=== PATIENT | female | born 1940 | race Caucasian/White ===

== ENCOUNTER 2017-12-02 12:00 | Emergency (ER) | payer MEDICARE, SELFPAY ==
[2017-12-02 12:16] VITALS: BP 138/86; PULSE 82; RESP 20; TEMP 36.9; O2SAT 98; BMI 66.7
--- NOTE | 2017-12-02 12:26 | XR_ITS ---
XR chest 2V HISTORY: Cough and wheezing ITS.REASON: SHORTNESS OF BREATH ORDERING PHYSICIAN: Ant Castaneda MD PATIENT AGE: 77 years COMPARISON: 10/28/2016 FINDINGS: The cardiomediastinal silhouette and pulmonary vascularity are within normal limits. The lungs are clear without infiltrates, suspicious nodules, or pleural effusions. There is calcified granuloma in the left lower lobe and there are chronic changes. Degenerative changes are present in the thoracic spine. No acute bony abnormalities. IMPRESSION: No acute finding. 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
[2017-12-02 13:11] LABS: Basophils % 0.3 % (0.1-2.0); Eosinophils # 1.1 K/mm3 (0.0-0.4); Eosinophils % 11.4 % (0.1-12.0); Hematocrit 41.5 % (37.0-47.0); Hemoglobin 13.6 g/dL (12.2-16.2); Lymphocytes # 2.5 K/mm3 (0.7-4.5); Lymphocytes % 25.6 K/mm3 (10-50); Mean Corpuscular HGB Conc 32.8 g/dL (31.8-35.4); Mean Corpuscular Hemoglobin 29.9 pg (27.0-31.2); Mean Corpuscular Volume 91.3 fl (81-99); Mean Platelet Volume 7.5 fl (7.4-10.4); Monocytes # 0.6 K/mm3 (0.1-1.0); Monocytes % 6.2 % (1.7-9.3); Neutrophils # 5.5 K/mm3 (1.8-7.8); Neutrophils % 56.4 % (37.0-80.0); Platelet Count 273 K/mm3 (142-424); Red Blood Count 4.54 M/mm3 (4.20-5.40); Red Cell Distribution Width 12.1 % (11.5-17.5); White Blood Count 9.8 K/mm3 (4.8-10.8)
[2017-12-02 13:21] LABS: Lactic Acid 0.9 mmol/L (0.4-2.0)
--- NOTE | 2017-12-02 13:31 | [facility].EDGENADL ---
ED Disposition Clinical Impression: Acute exacerbation of chronic obstructive airways disease Disposition: Home, Self-Care Condition on Discharge: Fair Instructions: DI for Chronic Obstructive Pulmonary Disease Prescriptions: levoFLOXacin [Levaquin 500mg tab] 500 mg PO DAILY #10 tab predniSONE [Deltasone 5mg tablet] 5 mg PO DAILY 30 Days #30 tab Referrals: Alexis Montanez MD [Primary Care Provider] - Time of Disposition: 16:58 - Critical Care Critical Care Time: No Attestation: On 12/02/17, the high probability of a clinically significant, sudden or life threatening deterioration of the following system(s) required my full and direct attention, intervention and personal management. The time I documented below is in addition to time spent performing reported procedures but includes the following listed in this critical care notation. Medical Decision Making - Medical Records Medical records reviewed: Yes: I reviewed the patient's medical records. Vital Signs: 12/02/17 12:16 12/02/17 14:00 Temperature 98.4 F Temperature Source Tympanic Pulse Rate 78 Pulse Rate [Right Radial] 82 Respiratory Rate 20 Blood Pressure [Right Arm] 138/86 Blood Pressure Mean [Right Arm] 103 02 Sat by Pulse Oximetry 98 Oxygen Delivery Method Room Air - Lab Data Lab results reviewed: Yes: I reviewed the patient's lab results. Lab Results 12/02/17 12:55: WBC 9.8, RBC 4.54, Hgb 13.6, Hct 41.5, MCV 91.3, MCH 29.9, MCHC 32.8, RDW 12.1, Plt Count 273, MPV 7.5, Neut % (Auto) 56.4, Lymph % (Auto) 25.6, [place] % (Auto) 6.2, Eos % (Auto) 11.4, Baso % (Auto) 0.3, Neut # (Auto) 5.5, Lymph # (Auto) 2.5, [place] # (Auto) 0.6, Eos # (Auto) 1.1 H, Baso # (Auto) 0.0 12/02/17 12:55: Sodium 139, Potassium 4.5, Chloride 105, Carbon Dioxide 27, Anion Gap 11.5, BUN 21 H, Creatinine 0.64, Estimated Creat Clear 33, Estimated GFR 90, Est GFR ( Amer) 109, Glucose 109 H, Calcium 9.0, Total Bilirubin 0.3, AST 17, ALT 24, Alkaline Phosphatase 64, Total Creatine Kinase 136, CK-MB (CK-2) 1.4, CK-MB (CK-2) Rel Index 1.0, Troponin I < 0.02, Total Protein 7.2, Albumin 3.6, Globulin 3.6 H, Albumin/Globulin Ratio 1.0 L 12/02/17 12:55: Lactic Acid 0.9 12/02/17 13:30: Influenza Type A Ag Negative, Influenza Type B Ag Negative, Group A Strep Rapid Negative Result diagrams: 12/02/17 12:55 12/02/17 12:55 Orders (Tests/Meds): ED MEDICATIONS Discontinued Medications Generic Name Dose Route Start Last Admin Trade Name Orlandoq PRN Reason Stop Dose Admin Albuterol/Ipratropium 3 ml 12/02/17 13:37 12/02/17 14:00 Duoneb 3ml Neb IH 12/02/17 13:38 3 ml ONCE ONE Administration Methylprednisolone Sodium Succinate 125 mg 12/02/17 13:37 12/02/17 13:50 Solu-Medrol 125mg/2ml Vial IV 12/02/17 13:38 125 mg ONCE ONE Administration ORDERS Category Date Time Status Blood Culture Stat Micro 12/02/17 12:55 Received Strep Screen Confirmation Stat Micro 12/02/17 13:30 Received - Radiology Data #1 Image(s): Chest Image Reviewed: Yes I reviewed the patient's radiology results, Yes I discussed the image results w/the radiologist, Yes I have reviewed radiologist's interpretation Preliminary Findings: Normal/NAD - Hermes Inquiry Pt receiving controlled substance: No Hermes was queried for this patient: No General Adult HPI - General Chief complaint: Shortness of Breath/Dyspnea Stated complaint: achey all over cough soa Time Seen by Provider: 12/02/17 13:34 Mode of Arrival: Ambulatory Limitations: No Limitations Description of Symptoms (Recalled from ER Triage Doc. by RN): CHILLS, SHORTNESS OF BREATH, WHEEZING - History of Present Illness HPI narrative: SOA, Achy all over, shills , Wheezing and NPcough over the past 2 days. No fever that she is aware of. she does not currently smoke but is on inhalers and nebs at home. No chest pain with this but SOA Onset (ago): day(s) Location: head, chest Radiation: no
[2017-12-02 13:36] LABS: Alanine Aminotransferase 24 U/L (12-78); Albumin Level 3.6 gm/dL (3.4-5.0); Alkaline Phosphatase 64 U/L (46-116); Anion Gap 11.5 mEq/L (5-15); Bilirubin,Total 0.3 mg/dL (0.2-1.0); Blood Urea Nitrogen 21 mg/dL (7-18); Carbon Dioxide 27 mmol/L (21.0-32.0); Chloride 105 mmol/L (98-107); Creatine Kinase 136 U/L (26-192); Creatinine Clearance Estimated 33 mL/min (0-300); Creatinine,Serum 0.64 mg/dL (0.55-1.02); Estimated Glomerular Filt Rate 90 ml/min (>60); GFR (African American) 109 ML/MIN (>60); Globulin 3.6 gm/dl (1.3-3.2); Glucose 109 mg/dL (74-106); Sodium 139 mmol/L (136-145); Total Protein,Serum 7.2 gm/dL (6.4-8.2); Troponin I < 0.02 ng/ml (0.00-0.06)
[2017-12-02 13:52] LABS: Potassium 4.5 mmoL/L (3.5-5.1)
[2017-12-02 13:53] LABS: Aspartate Amino Transferase 17 U/L (15-37)
[2017-12-02 14:00] VITALS: PULSE 78
[2017-12-02 14:02] LABS: Creatine Kinase MB 1.4 mg/ml (0.0-3.6)
[2017-12-02 14:04] LABS: Strep Scrn Group A (Rapid) Negative (Negative)
[2017-12-02 17:08] VITALS: BP 121/70; PULSE 70; RESP 20; TEMP 37.1; O2SAT 100
== END 2017-12-02 17:10 | disposition home or self-care (01) ==
PROVIDERS: Emergency Provider General Practice; Family Provider Family Medicine; PCP Family Medicine
DX: J44.1 Chronic obstructive pulmonary disease with (acute) exacerbation (principal); E10.9 Type 1 diabetes mellitus without complications; Z88.6 Allergy status to analgesic agent
CPT/HCPCS: 71046; 80053; 82550; 82553; 83605; 84484; 85025; 87040; 87275; 87276; 87430; 93005; 93041; 96374; 99284

== ENCOUNTER 2018-03-31 21:44 | Observation (INO) ==
[2018-03-31 22:16] LABS: Basophils % 0.4 % (0.1-2.0); Eosinophils # 1.7 K/mm3 (0.0-0.4); Eosinophils % 18.3 % (0.1-12.0); Hemoglobin 12.9 g/dL (12.2-16.2); Lymphocytes # 3.5 K/mm3 (0.7-4.5); Lymphocytes % 36.8 K/mm3 (10-50); Mean Corpuscular HGB Conc 31.4 g/dL (31.8-35.4); Mean Corpuscular Hemoglobin 28.5 pg (27.0-31.2); Mean Corpuscular Volume 90.7 fl (81-99); Mean Platelet Volume 7.1 fl (7.4-10.4); Monocytes # 0.6 K/mm3 (0.1-1.0); Monocytes % 5.8 % (1.7-9.3); Neutrophils # 3.7 K/mm3 (1.8-7.8); Neutrophils % 38.7 % (37.0-80.0); Platelet Count 278 K/mm3 (142-424); Red Blood Count 4.51 M/mm3 (4.20-5.40); Red Cell Distribution Width 12.8 % (11.5-17.5); White Blood Count 9.5 K/mm3 (4.8-10.8)
[2018-03-31 22:29] LABS: Anion Gap 14.5 mEq/L (5-15); Blood Urea Nitrogen 29 mg/dL (7-18); Calcium 9.3 mg/dL (8.5-10.1); Carbon Dioxide 24 mmol/L (21.0-32.0); Chloride 107 mmol/L (98-107); Glucose 116 mg/dL (74-106); Potassium 4.5 mmoL/L (3.5-5.1); Sodium 141 mmol/L (136-145)
--- NOTE | 2018-03-31 23:01 | Emergency Department Note ---
ED Disposition Clinical Impression: Asthma with exacerbation Qualifiers: Asthma severity: moderate Asthma persistence: unspecified Qualified Code(s): J45.901 - Unspecified asthma with (acute) exacerbation Disposition: Admitted as Observation Condition on Discharge: Good Referrals: Alexis Montanez MD [Primary Care Provider] - - Critical Care Critical Care Time: No Attestation: On 03/31/18, the high probability of a clinically significant, sudden or life threatening deterioration of the following system(s) required my full and direct attention, intervention and personal management. The time I documented below is in addition to time spent performing reported procedures but includes the following listed in this critical care notation. Medical Decision Making - Medical Records Medical records reviewed: Yes: I reviewed the patient's medical records. - Hermes Inquiry Pt receiving controlled substance: No Vital Signs: 03/31/18 21:42 03/31/18 22:21 Temperature 98.5 F Temperature Source Oral Pulse Rate [Right Radial] 96 H 92 H Respiratory Rate 18 16 Blood Pressure [Right Arm] 164/97 157/81 Blood Pressure Mean [Right Arm] 119 106 Blood Pressure Source [Right Arm] Automatic Cuff Automatic Cuff Blood Pressure Position [Right Arm] Sitting Supine 02 Sat by Pulse Oximetry 95 96 Oxygen Delivery Method Room Air Room Air - Lab Data Lab results reviewed: Yes: I reviewed the patient's lab results. Lab Results 03/31/18 21:55: WBC 9.5, RBC 4.51, Hgb 12.9, Hct 41.0, MCV 90.7, MCH 28.5, MCHC 31.4 L, RDW 12.8, Plt Count 278, MPV 7.1 L, Neut % (Auto) 38.7, Lymph % (Auto) 36.8, [place] % (Auto) 5.8, Eos % (Auto) 18.3 H, Baso % (Auto) 0.4, Neut # (Auto) 3.7, Lymph # (Auto) 3.5, [place] # (Auto) 0.6, Eos # (Auto) 1.7 H, Baso # (Auto) 0.0 03/31/18 21:55: Sodium 141, Potassium 4.5, Chloride 107, Carbon Dioxide 24, Anion Gap 14.5, BUN 29 H, Creatinine 0.88, Estimated Creat Clear 53, Estimated GFR 62, Est GFR ( Amer) 76, Glucose 116 H, Calcium 9.3, Troponin I < 0.02 03/31/18 21:55: Lactic Acid 0.6 Result diagrams: 03/31/18 21:55 03/31/18 21:55 Orders (Tests/Meds): ORDERS Category Date Time Status XR chest 2V Stat Exams 03/31/18 21:50 Taken Blood Culture Stat Micro 03/31/18 21:55 Received - Radiology Data #1 Image(s): Chest Image Reviewed: Yes I reviewed the patient's radiology image Preliminary Findings: Normal/NAD - ECG Data Tracing #1 I reviewed this ECG and interpreted as documented below: Normal Sinus Rhythm: Yes Ischemic changes: non-specific ST-T wave changes Conduction abnormalities present: LBBB ECG compared to prior tracings: there are no significant changes - Physician Consults Physician Consulted: amy Reason -: Admission Resp/SOB HPI - General Chief Complaint: Shortness of Breath/Dyspnea Stated Complaint: short of breath Time Seen by Provider: 03/31/18 21:55 Mode of Arrival: EMS Source of Information: Patient, Relative, EMS, Medical Record Limitations: No Limitations Description of Symptoms (Recalled from ER Triage Doc. by RN): wheezing cough, recurrent, returns every time she comes of steroids - History of Present Illness pt with episode of acute sob with wheezing and has hx of asthma - she reports took resp treatment but did not improve - pt denied any chest pain but family concerned about chest pain MD Complaint: shortness of breath, "asthma attack" Onset (ago): hour(s) Severity: similar to previous episodes Consistency/Duration: now resolved Relieving factors: bronchodilators Known history of: COPD, asthma, diabetes Associated symptoms: cough Treatment prior to arrival: bronchodilator - Related Data Home oxygen amount: none Home Medications Medication Instructions Recorded Confirmed Benzonatate [Benzonatate 100mg 100 mg PO TID 03/31/18 03/31/18 cap] Cilostazol 50 mg PO BID 03/31/18 03/31/18 Gabapentin [Gabapentin 100mg Cap] 100 mg PO TID 03/31/18 03/31/18 Ipratropium/Albuterol Sulfate 1 unit INHALATION Q4HP PRN 03/31/18 03/31/18 [Albut-Ipratropium 2.5mg-0.5mg/3 ml] Lisinopril/Hydrochlorothiazide 1 tab PO DAILY 03/31/18 03/31/18 [Lisinopril-Hctz 20-12.5 mg Tab] Omeprazole [Omeprazole 40mg 40 mg PO DAILY 03/31/18 03/31/18 Capsule] Pravastatin Sodium [Pravachol 40mg 40 mg PO HS 03/31/18 03/31/18 Tablet] Allergies Allergy/AdvReac Type Severity Reaction Status Date / Time codeine [CODEINE] Allergy Unknown Verified 12/02/17 12:28 [facility] History I have reviewed the patient's past medical history: Yes Medical History: Reports:: Diabetes Mellitus Type 2 Denies:: Cancer, Diabetes Mellitus Type 1, MRSA Amputation: No Fractures: No - Social History Smoking Status: Never smoker Alcohol Intake: never - Psychiatric History Expresses thoughts of harming self/others: None Suicide Plan Description: No Plan ROS Obtained: Yes All systems reviewed & no additional complaints - Constitutional Constitutional: Denies fever(s) - Eyes Eyes: Denies change in vision - ENT Ears, Nose, Mouth, and Throat: Denies sore throat - Cardiovascular Cardiovascular: Denies chest pain, Denies palpitations - Respiratory Respiratory: Yes as per HPI, Yes cough, Yes dyspnea, No coughing up blood - Gastrointestinal Gastrointestingal: Denies: black, tarry stools - Genitourinary Female Genitourinary: Denies hematuria - Musculoskeletal Musculoskeletal: Denies joint pain, Denies joint swelling - Integumentary/Breasts Skin/Breast: Denies rash - Neurologic Neurologic: Denies convulsions, Denies headache(s), Denies seizure-like activity Physical Exam - General General appearance: alert, in no apparent distress - Head Head exam: normocephalic - Eye Eye exam: Present: PERRL, EOMI. Absent: scleral icterus - ENT ENT exam: Present: mucous membranes dry - Neck Neck exam: Present: trachea midline - Respiratory Respiratory exam: Present: other (rhonchi). Absent: respiratory distress - Cardiovascular Cardiovascular exam: Present: regular rate, systolic murmur, +S4 - Abdominal Exam Abdominal exam: Present: soft - Extremities Exam Extremities exam: Absent: calf tenderness - Neurological Exam Neurological exam: Present: alert, oriented X3 - Psychiatric Psychiatric exam: Present: normal affect - Skin Skin exam: Absent: rash
[2018-03-31 23:52] LABS: T4 (Thyroxine) 9.2 ug/dl (4.7-13.3); Thyroid Stimulating Hormone 2.67 uIU/ml (0.358-3.740)
[2018-04-01 06:49] LABS: Basophils % 0.1 % (0.1-2.0); Eosinophils # 0.1 K/mm3 (0.0-0.4); Eosinophils % 1.2 % (0.1-12.0); Hematocrit 39.5 % (37.0-47.0); Hemoglobin 12.2 g/dL (12.2-16.2); Lymphocytes # 0.5 K/mm3 (0.7-4.5); Lymphocytes % 7.8 K/mm3 (10-50); Mean Corpuscular Hemoglobin 28.4 pg (27.0-31.2); Mean Corpuscular Volume 91.9 fl (81-99); Mean Platelet Volume 7.2 fl (7.4-10.4); Monocytes # 0.1 K/mm3 (0.1-1.0); Monocytes % 1.6 % (1.7-9.3); Neutrophils # 5.4 K/mm3 (1.8-7.8); Neutrophils % 89.4 % (37.0-80.0); Platelet Count 255 K/mm3 (142-424); Red Cell Distribution Width 12.8 % (11.5-17.5); White Blood Count 6.1 K/mm3 (4.8-10.8)
[2018-04-01 07:15] VITALS: BP 161/76
[2018-04-01 07:50] LABS: Anion Gap 11.4 mEq/L (5-15); Blood Urea Nitrogen 27 mg/dL (7-18); Carbon Dioxide 25 mmol/L (21.0-32.0); Chloride 109 mmol/L (98-107); Glucose 200 mg/dL (74-106); Potassium 4.4 mmoL/L (3.5-5.1); Sodium 141 mmol/L (136-145)
--- NOTE | 2018-04-01 08:54 | History & Physical Report ---
*Admission Date: 03/31/18 *Chief complaint: Shortness of breath, wheezing *History of present illness: This 77-year-old white female was admitted through the emergency room last night with shortness of breath. She has been coughing wheezing and is congested. She coughs up some mucus frequently. She describes a history of asthma since she was in her 30s. She describes a strong family history of asthma. She has not been a smoker. She uses a nebulizer at home. She has a history of exacerbations of her asthma which are treated with antibiotics and steroids with good relief. When she was seen in the emergency room last night her eosinophil count was found to be elevated. This morning is normal. [facility] History Medical History: Reports:: Diabetes Mellitus Type 2 Denies:: Cancer, Diabetes Mellitus Type 1, MRSA Other Surgeries: Yes: Other (BILAT STENTS PLACED IN LEGS.) Amputation: No Fractures: No - *Social History Educational Level: Completed High School Smoking Status: Never smoker Alcohol Intake: never Occupational Status: employed Housing: house Household Members: children - Psychiatric History Expresses thoughts of harming self/others: None Suicide Plan Description: No Plan *Family Hx:: No significant family history Review of Systems - Constitutional Denies chills, Denies fever(s) - Eyes Denies change in vision - ENT Denies abnormal hearing - *Cardiovascular Reports shortness of breath with activity, Denies chest pain, Denies rapid, pounding, or irregular heartbeat - *Respiratory Reports chest congestion, Reports cough, Reports shortness of breath with activity, Reports wheezing, Denies coughing up blood - *Gastrointestinal Denies abdominal pain, Denies vomiting - *Genitourinary Denies abnormal vaginal bleeding - *Musculoskeletal Reports joint pain - *Neurologic Denies seizure-like activity, Denies headache(s), Denies seizure-like activity - Psychiatric Denies depression - Endocrine Denies cold intolerance, Denies increased thirst - Allergic/Immunologic Denies seasonal runny nose Comments: "Sinus drainage" Meds Home Medications Medication Instructions Recorded Confirmed Type Benzonatate [Benzonatate 100mg 100 mg PO TIDP PRN 03/31/18 04/01/18 History cap] Cilostazol 50 mg PO BID 03/31/18 04/01/18 History Gabapentin [Gabapentin 100mg Cap] 100 mg PO TID 03/31/18 04/01/18 History Ipratropium/Albuterol Sulfate 1 puff INHALATION Q4HP PRN 03/31/18 04/01/18 History [Albut-Ipratropium 2.5mg-0.5mg/3 ml] Lisinopril/Hydrochlorothiazide 1 tab PO DAILY 03/31/18 04/01/18 History [Lisinopril-Hctz 20-12.5 mg Tab] Omeprazole [Omeprazole 40mg 40 mg PO DAILY 03/31/18 04/01/18 History Capsule] Pravastatin Sodium [Pravachol 40mg 40 mg PO HS 03/31/18 04/01/18 History Tablet] Aspirin [Aspirin 325mg Tab] 325 mg PO DAILY 04/01/18 04/01/18 History Allergies Allergy/AdvReac Type Severity Reaction Status Date / Time codeine [CODEINE] Allergy Unknown Verified 12/02/17 12:28 Exam Vital signs and Labs for Last 24 Hours: Temp Pulse Resp BP Pulse Ox 98.2 F 95 H 18 161/76 95 04/01/18 07:14 04/01/18 07:14 04/01/18 07:14 04/01/18 07:14 04/01/18 07:14 Laboratory Results - last 24 hr 03/31/18 21:55: WBC 9.5, RBC 4.51, Hgb 12.9, Hct 41.0, MCV 90.7, MCH 28.5, MCHC 31.4 L, RDW 12.8, Plt Count 278, MPV 7.1 L, Neut % (Auto) 38.7, Lymph % (Auto) 36.8, [place] % (Auto) 5.8, Eos % (Auto) 18.3 H, Baso % (Auto) 0.4, Neut # (Auto) 3.7, Lymph # (Auto) 3.5, [place] # (Auto) 0.6, Eos # (Auto) 1.7 H, Baso # (Auto) 0.0 03/31/18 21:55: Sodium 141, Potassium 4.5, Chloride 107, Carbon Dioxide 24, Anion Gap 14.5, BUN 29 H, Creatinine 0.88, Estimated Creat Clear 53, Estimated GFR 62, Est GFR ( Amer) 76, Glucose 116 H, Calcium 9.3, Troponin I < 0.02 03/31/18 21:55: Lactic Acid 0.6 03/31/18 21:55: B-Natriuretic Peptide 36 03/31/18 21:55: TSH 2.67, Thyroxine (T4) 9.2 03/31/18 23:59: Troponin I < 0.02 04/01/18 03:10: Troponin I < 0.02 04/01/18 06:25: WBC 6.1 D, RBC 4.30, Hgb 12.2, Hct 39.5, MCV 91.9, MCH 28.4, MCHC 31.0 L, RDW 12.8, Plt Count 255, MPV 7.2 L, Neut % (Auto) 89.4 H, Lymph % ( Auto) 7.8 L, [place] % (Auto) 1.6 L, Eos % (Auto) 1.2, Baso % (Auto) 0.1, Neut # ( Auto) 5.4, Lymph # (Auto) 0.5 L, [place] # (Auto) 0.1, Eos # (Auto) 0.1, Baso # ( Auto) 0.0 04/01/18 06:25: Sodium 141, Potassium 4.4, Chloride 109 H, Carbon Dioxide 25, Anion Gap 11.4, BUN 27 H, Creatinine 0.78, Estimated Creat Clear 53, Estimated GFR 72, Est GFR ( Amer) 87, Glucose 200 H D, Calcium 9.0, Magnesium 1.7, Troponin I < 0.02 I & O for Last 24 hours: Intake & Output 03/29/18 03/30/18 03/31/18 04/01/18 11:59 11:59 11:59 11:59 Intake Total 247 / 247 Output Total 300 / 300 Balance -53 / -53 Weight 155 lb 2 oz - Constitutional no acute distress - *Routine HEENT Exam Head: Present: normocephalic. Absent: facial swelling Eye: Present: EOMI. Absent: scleral injection ENT: Present: mucous membranes moist - *Routine Neck Exam Absent: JVD, carotid bruit - Routine Chest/Breast/Axilla Exam Chest wall: Absent: tenderness Breast: Absent: tenderness Axillae: Absent: tenderness - *Routine Respiratory Exam Present: prolonged expiratory phase, wheezes. Absent: respiratory distress - *Routine Cardiovascular Exam Present: RRR Comments: Occasional ectopy - *Routine Abdominal Exam Present: soft. Absent: tenderness - *Routine Extremities Exam Present: edema (Trace) - Routine Back/Spine/Pelvis Exam Back/Spine: Present: kyphosis - *Routine Skin Exam Present: intact - *Routine Neurological Exam Present: alert, oriented X3 H&P: Result - Labs Labs: Short CBC 03/31/18 04/01/18 Range/Units 21:55 06:25 WBC 9.5 6.1 D (4.8-10.8) K/mm3 Hgb 12.9 12.2 (12.2-16.2) g/dL Hct 41.0 39.5 (37.0-47.0) % Plt Count 278 255 (142-424) K/mm3 [facility] 03/31/18 04/01/18 21:55 06:25 Sodium 141 141 Potassium 4.5 4.4 Chloride 107 109 H Carbon Dioxide 24 25 BUN 29 H 27 H Creatinine 0.88 0.78 Glucose 116 H 200 H D Calcium 9.3 9.0 Cardiac Enzymes 03/31/18 03/31/18 04/01/18 Range/Units 21:55 23:59 03:10 Troponin I < 0.02 < 0.02 < 0.02 (0.00-0.06) ng/ml 04/01/18 Range/Units 06:25 Troponin I < 0.02 (0.00-0.06) ng/ml Assessment and Plan (1) Asthma with exacerbation Current visit: Yes Status: Acute Qualifiers: Asthma severity: moderate Asthma persistence: unspecified Qualified Code( s): J45.901 - Unspecified asthma with (acute) exacerbation Category: Medical Code(s): J45.901 - Unspecified asthma with (acute) exacerbation (2) Acute exacerbation of chronic obstructive airways disease Current visit: No Status: Acute Category: Medical Code(s): J44.1 - Chronic obstructive pulmonary disease with (acute) exacerbation - Assessment and plan all Dx Assessment and Plan for all problems:: See orders. Probable discharge later today. Will continue on antibiotics and steroids.
--- NOTE | 2018-04-01 09:18 | Pharmacy Consult Notes ---
[facility] Pharmacy VTE Monitoring - Patient Demographics Admission date: 03/31/18 Report Date: 04/01/18 Time: 09:18 Allergies/Adverse Reactions: Patient Allergies codeine [CODEINE] Allergy (Unknown, Verified 12/02/17 12:28) Height: 1.5 m Weight: 70.364 kg Patient Problems: Current Active Problems Asthma with exacerbation (Acute) - VTE Risk Labs: VTE Related Lab Results Hgb 12.2 g/dL (12.2-16.2) 04/01/18 06:25 Hct 39.5 % (37.0-47.0) 04/01/18 06:25 Plt Count 255 K/mm3 (142-424) 04/01/18 06:25 BUN 27 mg/dL (7-18) H 04/01/18 06:25 Creatinine 0.78 mg/dL (0.55-1.02) 04/01/18 06:25 Estimated Creat Clear 53 mL/min (0-300) 04/01/18 06:25 Was VTE Risk Assessment Performed: Yes VTE Risk Level: Very Low Risk - Prophylaxis VTE Prophylaxis Ordered?: Yes Types of VTE Prophylaxis: TEDS Knee High Location of Applied Device: Bilateral Lower Extremeties - VTE Diagnosis Confirmed Treatment or plan recommended: Continue Current Treatment
[2018-04-01 09:24] LABS: Eosinophils % 2 % (0-3); Lymphocytes % 10 % (10-50); Monocytes % 1 % (2-9); Neutrophils % 86 % (42-76); Total Cells Counted 100
[2018-04-01 09:25] LABS: RBC Morphology Normal
[2018-04-01 15:57] LABS: Chol/HDL Ratio 1.7 (1-3.5); Cholesterol 158 mg/dL (140-200); HDL Cholesterol 93 mg/dL (29-89); LDL Cholesterol 61 mg/dL (0-130); Triglycerides 18 mg/dL (30-200); VLDL Cholesterol 4 mg/dL (0-40)
--- NOTE | 2018-04-03 07:00 | Discharge Summary ---
General - General Admission date:: 03/31/18 Discharge date: 04/01/18 HPI HPI: This 77-year-old white female was admitted through the emergency room with shortness of breath. She had a productive cough and was wheezing and congested. She described a history of asthma since she was in her 30's. She described a strong family history of asthma. She had never been a smoker. She used a nebulizer at home. She described a history of exacerbations of her asthma which were treated with antibiotics and steroids with good relief. When she was seen in the emergency room her eosinophil count was found to be elevated and was normal the following AM. Hospital Course Hospital Course: On admission CXR showed no acute findings. Patient was started on Zithromax, nebs and steroids. She improved quickly and by the PM 04/01/18 she was ready for discharge. The patient was discharged to home on 04/01/18 in stable and satisfactory condition. She was instructed to discontinue her lisinopril/HCT. She was given a prescription for Maxide 25 one a day. She was to continue on 500 mg of azithromycin daily for 2 more days and prednisone 10 mg daily until this week follow up in the office by Dr. Montanez. Objective Vital signs: Temp Pulse Resp BP Pulse Ox 98.2 F 95 H 18 161/76 95 04/01/18 07:14 04/01/18 07:14 04/01/18 07:14 04/01/18 07:14 04/01/18 08:00 Narrative: - Constitutional no acute distress - *Routine HEENT Exam Head: Present: normocephalic. Absent: facial swelling Eye: Present: EOMI. Absent: scleral injection ENT: Present: mucous membranes moist - *Routine Neck Exam Absent: JVD, carotid bruit - Routine Chest/Breast/Axilla Exam Chest wall: Absent: tenderness Breast: Absent: tenderness Axillae: Absent: tenderness - *Routine Respiratory Exam Present: prolonged expiratory phase, wheezes. Absent: respiratory distress - *Routine Cardiovascular Exam Present: RRR Comments: Occasional ectopy - *Routine Abdominal Exam Present: soft. Absent: tenderness - *Routine Extremities Exam Present: edema (Trace) - Routine Back/Spine/Pelvis Exam Back/Spine: Present: kyphosis - *Routine Skin Exam Present: intact - *Routine Neurological Exam Present: alert, oriented X3 Results Completed studies during hospitalization [Text1]: 03/31/18 IMPRESSION: Nonacute chest findings Laboratory Tests 03/31/18 03/31/18 03/31/18 21:55 21:55 21:55 WBC RBC Hgb Hct MCV MCH MCHC RDW Plt Count MPV Neut % (Auto) Lymph % (Auto) [place] % (Auto) Eos % (Auto) Baso % (Auto) Neut # (Auto) Lymph # (Auto) [place] # (Auto) Eos # (Auto) Baso # (Auto) Total Counted Neutrophils % (Manual) Band Neutrophils % Lymphocytes % (Manual) Monocytes % (Manual) Eosinophils % (Manual) Platelet Estimate RBC Morphology Sodium Potassium Chloride Carbon Dioxide Anion Gap BUN Creatinine Estimated Creat Clear Estimated GFR Est GFR ( Amer) Glucose Lactic Acid 0.6 Calcium Magnesium Troponin I B-Natriuretic Peptide 36 Triglycerides Cholesterol LDL Cholesterol VLDL Cholesterol HDL Cholesterol Cholesterol/HDL Ratio TSH 2.67 Thyroxine (T4) 9.2 03/31/18 04/01/18 04/01/18 23:59 03:10 06:25 WBC 6.1 D RBC 4.30 Hgb 12.2 Hct 39.5 MCV 91.9 MCH 28.4 MCHC 31.0 L RDW 12.8 Plt Count 255 MPV 7.2 L Neut % (Auto) 89.4 H Lymph % (Auto) 7.8 L [place] % (Auto) 1.6 L Eos % (Auto) 1.2 Baso % (Auto) 0.1 Neut # (Auto) 5.4 Lymph # (Auto) 0.5 L [place] # (Auto) 0.1 Eos # (Auto) 0.1 Baso # (Auto) 0.0 Total Counted 100 Neutrophils % (Manual) 86 H Band Neutrophils % 1.0 Lymphocytes % (Manual) 10 Monocytes % (Manual) 1 L Eosinophils % (Manual) 2 Platelet Estimate Normal RBC Morphology Normal Sodium Potassium Chloride Carbon Dioxide Anion Gap BUN Creatinine Estimated Creat Clear Estimated GFR Est GFR ( Amer) Glucose Lactic Acid Calcium Magnesium Troponin I < 0.02 < 0.02 B-Natriuretic Peptide Triglycerides Cholesterol LDL Cholesterol VLDL Cholesterol HDL Cholesterol Cholesterol/HDL Ratio TSH Thyroxine (T4) 04/01/18 06:25 WBC RBC Hgb Hct MCV MCH MCHC RDW Plt Count MPV Neut % (Auto) Lymph % (Auto) [place] % (Auto) Eos % (Auto) Baso % (Auto) Neut # (Auto) Lymph # (Auto) [place] # (Auto) Eos # (Auto) Baso # (Auto) Total Counted Neutrophils % (Manual) Band Neutrophils % Lymphocytes % (Manual) Monocytes % (Manual) Eosinophils % (Manual) Platelet Estimate RBC Morphology Sodium 141 Potassium 4.4 Chloride 109 H Carbon Dioxide 25 Anion Gap 11.4 BUN 27 H Creatinine 0.78 Estimated Creat Clear 53 Estimated GFR 72 Est GFR ( Amer) 87 Glucose 200 H D Lactic Acid Calcium 9.0 Magnesium 1.7 Troponin I < 0.02 B-Natriuretic Peptide Triglycerides 18 L Cholesterol 158 LDL Cholesterol 61 VLDL Cholesterol 4 HDL Cholesterol 93 H Cholesterol/HDL Ratio 1.7 TSH Thyroxine (T4) Labs on day of discharge: Preliminary micro results at discharge 03/31/18 21:55 Blood Culture - Preliminary Blood NO GROWTH AFTER 48 HOURS 03/31/18 21:55 Blood Culture - Preliminary Blood NO GROWTH AFTER 48 HOURS DS: Diagnosis - Discharge Diagnosis (1) Asthma with exacerbation Status: Acute (2) Acute exacerbation of chronic obstructive airways disease Status: Acute Discharge Plan - Patient Discharge Instructions ACTIVITY: Limited activity DIET: continue same diet Patient Instructions: DI for Asthma -- Adult Forms: [facility] Work Release - Follow up Plan Follow up with: Alexis Montanez MD [Primary Care Provider] - Disposition: Home, Self-Correction Medications: Home Medications Medication Instructions Recorded Confirmed Type Benzonatate [Benzonatate 100mg 100 mg PO TIDP PRN 03/31/18 04/01/18 History cap] Cilostazol 50 mg PO BID 03/31/18 04/01/18 History Gabapentin [Gabapentin 100mg Cap] 100 mg PO TID 03/31/18 04/01/18 History Ipratropium/Albuterol Sulfate 1 puff INHALATION Q4HP PRN 03/31/18 04/01/18 History [Albut-Ipratropium 2.5mg-0.5mg/3 ml] Omeprazole [Omeprazole 40mg 40 mg PO DAILY 03/31/18 04/01/18 History Capsule] Pravastatin Sodium [Pravachol 40mg 40 mg PO HS 03/31/18 04/01/18 History Tablet] Aspirin [Aspirin 325mg Tab] 325 mg PO DAILY 04/01/18 04/01/18 History Prescriptions/Medication Reconciliation: New Azithromycin [Azithromycin 500mg Tab] 500 mg PO DAILY #2 tab Triamterene/Hydrochlorothiazid [Maxzide 37.5 mg-25 mg Tablet] 1 each PO DAILY #30 tab predniSONE [Prednisone 5mg Tab] 10 mg PO DAILY #20 tab Continue Omeprazole [Omeprazole 40mg Capsule] 40 mg PO DAILY Ipratropium/Albuterol Sulfate [Albut-Ipratropium 2.5mg-0.5mg/3 ml] 1 puff INHALATION Q4HP PRN PRN Reason: Wheezing Gabapentin [Gabapentin 100mg Cap] 100 mg PO TID Cilostazol 50 mg PO BID Aspirin [Aspirin 325mg Tab] 325 mg PO DAILY Pravastatin Sodium [Pravachol 40mg Tablet] 40 mg PO HS Benzonatate [Benzonatate 100mg cap] 100 mg PO TIDP PRN PRN Reason: Cough Discontinued Lisinopril/Hydrochlorothiazide [Lisinopril-Hctz 20-12.5 mg Tab] 1 tab PO DAILY
== END 2018-04-01 14:57 | disposition home or self-care (01) ==
LOC: 2ND 21:44 → ER 21:44 → 2ND 23:40
PROVIDERS: ADMIT Family Medicine; ATTEND Family Medicine
CPT/HCPCS: 36415; 71020; 71046; 80048; 80061; 83605; 83735; 83880; 84436; 84443; 84484; 85007; 85025; 87040; 93005; 94640; 99284; G0378

== ENCOUNTER → 2018-05-05 09:53 | Outpatient (CLI) | payer MEDICARE, SELFPAY ==
--- NOTE | 2018-05-05 10:01 | CA_ITS ---
PROCEDURE: 2-D M-mode and color Doppler study INDICATIONS FOR THE TEST: Chest pain COPD Heart Murmur Tobacco Smoking Palpitations Fatigue Syncope Edema Hypertension Diabetes Mellitus+ Rheumatic Fever SOB+DUFF Obesity Hyperlipidemia Family History HD Additional History ASTHMA, LEG STENTS PATIENT INFORMATION HEIGHT:59 WEIGHT:159 GENDER: Female B/P:161/76 2-D/M-MODE INTERPRETATION: 2-D MEASUREMENTS OBSERVED VALUES IN CMS Right Ventricular Dimension (RVDd) 2.2 Interventricular Septum (Thickness)(IVsd) 2.0 Left Ventricular Internal Dimensions(LVIDd) 4.0 Left Ventricular Posterior Wall (Thickness)(LVPWd) 1.3 Aortic Root 3.0 Aortic Cusp Separation 1.6 Left Atrial Dimensions (LAD) 3.8 2D 1. Left atrium is mildly enlarged, left ventricle is normal size, moderate concentric left ventricular hypertrophy, reduced left ventricular systolic function, visually estimated ejection fraction 30%, left ventricle is globally hypokinetic, and there is abnormal septal motion 2. The right atrium and right ventricle are normal size and contractility. 3. The aortic valve is thickened and calcified leaflet continue to display mobility. 4. The mitral and tricuspid valve leaflets are minimally thickened. 5. The pulmonic valve is poorly visualized. 6. No significant pericardial effusion noted. DOPPLER INTERROGATION: Doppler interrogation of the aortic, mitral and tricuspid valvular presence of moderate mitral and mild tricuspid regurgitation, calculated right ventricular systolic pressure is 54 mmHg consistent with moderate pulmonary hypertension, grade 1 diastolic dysfunction seen with tissue Doppler evidence of raised left atrial pressure. CONCLUSION: 1. Mildly enlarged left atrium, normal left ventricular size, moderate concentric left ventricular hypertrophy, reduced left ventricular systolic function, visually estimated ejection fraction 30%, left ventricle is globally hypokinetic, there is abnormal septal motion. 2. Moderate mitral and mild tricuspid regurgitation, calculated right ventricular systolic pressure is 54 mmHg consistent with moderate pulmonary hypertension, grade 1 diastolic dysfunction seen with tissue Doppler evidence of raised left atrial pressure. 3. No significant pericardial effusion noted.
== END ==
PROVIDERS: Family Provider Family Medicine; PCP Family Medicine; Visit Provider Family Medicine
DX: R01.1 Cardiac murmur, unspecified (principal)
CPT/HCPCS: 93306

== ENCOUNTER → 2018-06-02 12:43 | Outpatient (CLI) | payer MEDICARE, SELFPAY ==
[2018-06-02 13:55] LABS: Basophils % 0.2 % (0.1-2.0); Eosinophils # 0.1 K/mm3 (0.0-0.4); Eosinophils % 0.6 % (0.1-12.0); Hematocrit 41.2 % (37.0-47.0); Hemoglobin 13.1 g/dL (12.2-16.2); Lymphocytes % 16.9 K/mm3 (10-50); Mean Corpuscular HGB Conc 31.9 g/dL (31.8-35.4); Mean Corpuscular Hemoglobin 29.7 pg (27.0-31.2); Mean Corpuscular Volume 93.3 fl (81-99); Mean Platelet Volume 7.2 fl (7.4-10.4); Monocytes # 0.6 K/mm3 (0.1-1.0); Monocytes % 4.9 % (1.7-9.3); Neutrophils % 77.5 % (37.0-80.0); Platelet Count 316 K/mm3 (142-424); Red Blood Count 4.42 M/mm3 (4.20-5.40); Red Cell Distribution Width 13.5 % (11.5-17.5); White Blood Count 11.6 K/mm3 (4.8-10.8)
[2018-06-02 16:13] LABS: Alanine Aminotransferase 28 U/L (12-78); Albumin Level 3.1 gm/dL (3.4-5.0); Alkaline Phosphatase 62 U/L (46-116); Anion Gap 17.8 mEq/L (5-15); Aspartate Amino Transferase 12 U/L (15-37); Bilirubin,Direct 0.1 mg/dL (0.0-0.2); Bilirubin,Indirect 0.3 mg/dL (0.0-0.9); Bilirubin,Total 0.4 mg/dL (0.2-1.0); Blood Urea Nitrogen 36 mg/dL (7-18); Calcium 8.8 mg/dL (8.5-10.1); Carbon Dioxide 24 mmol/L (21.0-32.0); Chloride 105 mmol/L (98-107); Creatinine,Serum 1.31 mg/dL (0.55-1.02); Estimated Glomerular Filt Rate 39 ml/min (>60); Free T4 (Free Thyroxine) 1.12 ng/dl (0.76-1.46); GFR (African American) 48 ML/MIN (>60); Glucose 225 mg/dL (74-106); Potassium 5.8 mmoL/L (3.5-5.1); Sodium 141 mmol/L (136-145); Thyroid Stimulating Hormone 2.69 uIU/ml (0.358-3.740)
== END ==
PROVIDERS: Family Provider Family Medicine; PCP Family Medicine; Visit Provider Internal Medicine Cardiovascular Disease
DX: J44.1 Chronic obstructive pulmonary disease with (acute) exacerbation (principal); R53.83 Other fatigue
CPT/HCPCS: 36415; 80048; 80076; 84439; 84443; 85025

== ENCOUNTER 2018-06-03 08:33 | Observation (INO) ==
--- NOTE | 2018-06-03 08:48 | Emergency Department Note ---
ED Disposition Clinical Impression: Rapid atrial fibrillation Disposition: Still a Patient Condition on Discharge: Fair - Critical Care Critical Care Time: Yes Attestation: On 06/03/18, the high probability of a clinically significant, sudden or life threatening deterioration of the following system(s) required my full and direct attention, intervention and personal management. The time I documented below is in addition to time spent performing reported procedures but includes the following listed in this critical care notation. Total Critical Care Time: 35 Vital system(s) involved:: Circulatory Failure My critical care processes included: Assessment & monitoring of V/S, Initial and Re-exams, Data Review/Interpretation, Coordinating Care, Medication Orders and management, Documentation Medical Decision Making - Hermes Inquiry Pt receiving controlled substance: No Vital Signs: 06/03/18 09:00 06/03/18 09:15 06/03/18 09:20 Temperature 99.4 F Temperature Source Oral Pulse Rate [Left Radial] 148 H 152 H 119 H Respiratory Rate 26 H 28 H Blood Pressure [Right Arm] 119/67 131/77 114/73 Blood Pressure Mean [Right Arm] 84 95 86 Blood Pressure Source [Right Arm] Automatic Cuff Automatic Cuff Blood Pressure Position [Right Arm] Sitting Sitting Sitting 02 Sat by Pulse Oximetry 94 L 96 Oxygen Delivery Method Room Air 06/03/18 09:34 06/03/18 09:41 Temperature Temperature Source Pulse Rate [Left Radial] 104 H 117 H Respiratory Rate Blood Pressure [Right Arm] 106/63 104/65 Blood Pressure Mean [Right Arm] 77 78 Blood Pressure Source [Right Arm] Manual Cuff/ Palpation Automatic Cuff Blood Pressure Position [Right Arm] Sitting 02 Sat by Pulse Oximetry 96 Oxygen Delivery Method Room Air - Lab Data Lab Results 06/03/18 08:50: WBC 15.5 H D, RBC 4.30, Hgb 12.9, Hct 40.3, MCV 93.8, MCH 30.0, MCHC 32.0, RDW 13.4, Plt Count 286, MPV 7.2 L, Neut % (Auto) 78.8, Lymph % (Auto ) 13.8, [place] % (Auto) 6.6, Eos % (Auto) 0.6, Baso % (Auto) 0.2, Neut # (Auto) 12.2 H, Lymph # (Auto) 2.1, [place] # (Auto) 1.0, Eos # (Auto) 0.1, Baso # (Auto) 0.0, Total Counted 100, Neutrophils % (Manual) 81 H, Band Neutrophils % 4.0, Lymphocytes % (Manual) 10, Monocytes % (Manual) 5, Platelet Estimate Normal 06/03/18 08:50: Sodium 137, Potassium 5.0, Chloride 103, Carbon Dioxide 26, Anion Gap 13.0, BUN 30 H, Creatinine 1.25 H, Estimated GFR 42 L, Est GFR ( Amer) 50 L, Glucose 222 H, Calcium 8.7, Magnesium 1.9, Troponin I 0.14 H Result diagrams: 06/03/18 08:50 06/03/18 08:50 Orders (Tests/Meds): ED MEDICATIONS Generic Name Dose Route Start Last Admin Trade Name Freq PRN Reason Stop Dose Admin Diltiazem HCl 100 mg/ Sodium 100 mls @ 10 mls/hr 06/03/18 09:16 06/03/18 09: 16 Chloride IV 07/03/18 09:15 10 mls/hr .Q10H BINH Administration Discontinued Medications Generic Name Dose Route Start Last Admin Trade Name Freq PRN Reason Stop Dose Admin Diltiazem HCl 10 mg 06/03/18 09:00 06/03/18 09:15 Cardizem 25mg/5ml Vial IV 06/03/18 09:01 10 mg ONCE ONE Administration ORDERS Category Date Time Status XR chest portable Stat Exams 06/03/18 09:00 Taken DIG [Digoxin] Stat Lab 06/03/18 09:39 Ordered - Radiology Data #1 Image(s): Chest Image Reviewed: Yes I reviewed the patient's radiology image atelectasis in bases - ECG Data Tracing #1 EKG interpreted by Yoshi Sánchez MD: Rhythm: Atrial fibrillation with rapid ventricular response Rate: 148 [place]: Left Ectopy: none Conduction: Left bundle branch block, old - Physician Consults Physician Consulted: Tarik Valencia Time: 09:38 Reason -: Admission Comment/Response: Consult Dr. Chadwick regarding meds Additional Consult: Netta Time: 09:46 Reason -: Cardiology Eval/Care Comment/Response: Change from Eliquis to Xarelto 15 mg per day. Continue diltiazem drip. Increase amiodarone to 400 mg twice daily. Continue digoxin 0.125 mg per day. Hold Lasix and metoprolol. He will see her tomorrow. - Reevaluation(s) Time: 09:47 Reevaluation #1: Heart rate in the 90s on diltiazem drip General Adult HPI - General Stated complaint: SOA Time Seen by Provider: 06/03/18 08:48 - History of Present Illness HPI narrative: The patient had a cardiac stent placed on 05/24/18 at this facility. She has not felt well since then. She is short of air and has dyspnea on exertion. She has had atrial fibrillation since the stent was placed. Family states she did not have atrial fibrillation prior to that. She was seen in the [facility] office yesterday. Digoxin, Lopressor, amiodarone, Eliquis, Lasix, and losartan were started for atrial fibrillation with rapid response. Bisoprolol and Maxzide were stopped. She does not feel any better today. She denies chest pain or syncope. She does not feel palpitations or tachycardia. Family states that she did not convert, cardioversion was going to be performed this coming . - Related Data Home Medications Medication Instructions Recorded Confirmed Gabapentin [Gabapentin 100mg Cap] 100 mg PO TID 03/31/18 06/03/18 Ipratropium/Albuterol Sulfate 1 puff INHALATION Q4HP PRN 03/31/18 06/03/18 [Albut-Ipratropium 2.5mg-0.5mg/3 ml] Omeprazole [Omeprazole 40mg 40 mg PO DAILY 03/31/18 06/03/18 Capsule] Pravastatin Sodium [Pravachol 40mg 40 mg PO HS 03/31/18 06/03/18 Tablet] aspirin 81 mg tablet,delayed 81 mg PO DAILY 06/02/18 06/03/18 release Amiodarone HCl 200 mg PO BID 06/03/18 06/03/18 Apixaban [Eliquis] 5 mg PO BID 06/03/18 06/03/18 Clopidogrel Bisulfate [Plavix 75mg 75 mg PO DAILY 06/03/18 06/03/18 Tab] Digoxin 0.125 mg PO DAILY 06/03/18 06/03/18 Furosemide [Furosemide 20mg Tab] 20 mg PO .qod 06/03/18 06/03/18 Losartan Potassium [Cozaar] 25 mg PO QHS 06/03/18 06/03/18 Metoprolol Tartrate 50 mg PO BID 06/03/18 06/03/18 predniSONE [Prednisone 5mg 10 mg PO DAILY 06/03/18 06/03/18 Tab] Allergies Allergy/AdvReac Type Severity Reaction Status Date / Time codeine [CODEINE] Allergy Unknown Verified 05/18/18 12:01 [facility] History I have reviewed the patient's past medical history: Yes Medical History: Reports:: Asthma, Congestive Heart Failure, Chronic Obstructive Pulmonary Disease (COPD), Diabetes Mellitus Type 2, Hypertension Denies:: Seizures Other Surgeries: Yes: Sinus Surgery, Tubal Ligation, Other Amputation: No Fractures: No Comment: 3 stents in the L leg-2013. 1 stent in the R leg-2013 - Social History Smoking Status: Never smoker Alcohol Intake: never Substance Use Type: denies use Occupational Status: employed Housing: house Household Members: children Family Hx:: Coronary Artery Disease, Diabetes ROS Obtained: Yes All systems reviewed & no additional complaints - Constitutional Constitutional: Denies fever(s) - Cardiovascular Cardiovascular: Denies chest pain, Reports dyspnea - Respiratory Respiratory: No cough, No coughing up blood - Gastrointestinal Gastrointestingal: Denies: abdominal pain, diarrhea, vomiting Physical Exam - General General appearance: alert, in no apparent distress - Head Head exam: atraumatic, normocephalic, normal inspection - Eye Eye exam: Present: normal appearance, PERRL, EOMI - ENT ENT exam: Present: normal exam, normal oropharynx, mucous membranes moist, TM's normal bilaterally, normal external ear exam - Neck Neck exam: Present: normal inspection, full ROM, trachea midline. Absent: meningismus, lymphadenopathy - Chest Chest inspection: Present: normal inspection, symmetric chest wall rise. Absent : tenderness - Respiratory Respiratory exam: Present: normal lung sounds bilaterally. Absent: respiratory distress - Cardiovascular Cardiovascular exam: Present: tachycardia, irregular rhythm. Absent: JVD - Abdominal Exam Abdominal exam: Present: soft, normal bowel sounds. Absent: distention, tenderness, guarding - Extremities Exam Extremities exam: Present: normal inspection, full ROM, normal capillary refill. Absent: calf tenderness - Back Exam Back exam: Present: normal inspection. Absent: tenderness - Neurological Exam Neurological exam: Present: alert, oriented X3, CN II-XII intact - Psychiatric Psychiatric exam: Present: normal affect, normal mood - Skin Skin exam: Present: warm, dry, intact, normal color
[2018-06-03 09:11] LABS: Basophils % 0.2 % (0.1-2.0); Eosinophils # 0.1 K/mm3 (0.0-0.4); Eosinophils % 0.6 % (0.1-12.0); Hematocrit 40.3 % (37.0-47.0); Hemoglobin 12.9 g/dL (12.2-16.2); Lymphocytes # 2.1 K/mm3 (0.7-4.5); Lymphocytes % 13.8 K/mm3 (10-50); Mean Corpuscular Volume 93.8 fl (81-99); Mean Platelet Volume 7.2 fl (7.4-10.4); Monocytes % 6.6 % (1.7-9.3); Neutrophils # 12.2 K/mm3 (1.8-7.8); Neutrophils % 78.8 % (37.0-80.0); Platelet Count 286 K/mm3 (142-424); Red Cell Distribution Width 13.4 % (11.5-17.5); White Blood Count 15.5 K/mm3 (4.8-10.8)
[2018-06-03 09:22] LABS: Blood Urea Nitrogen 30 mg/dL (7-18); Calcium 8.7 mg/dL (8.5-10.1); Carbon Dioxide 26 mmol/L (21.0-32.0); Chloride 103 mmol/L (98-107); Glucose 222 mg/dL (74-106); Sodium 137 mmol/L (136-145)
[2018-06-03 09:38] LABS: Lymphocytes % 10 % (10-50); Monocytes % 5 % (2-9); Neutrophils % 81 % (42-76); Total Cells Counted 100
--- NOTE | 2018-06-03 13:06 | History & Physical Report ---
*Admission Date: 06/03/18 *Chief complaint: Difficulty breathing *History of present illness: 78 year old female with a history of CAD with recent coronary stent placement and recent diagnosis of atrial fibrillation presented to [facility] ER this morning complaining of shortness of breath. She states symptoms were present most of the night and she was unable to sleep because of her trouble breathing. She took a nebulizer treatment which did not tallier her any relief so she came to the ER for further evaluation. Patient was seen last month in the office of [facility] and found to have peripheral edema. An echocardiogram was ordered and showed an EF of 30% . She was referred to cardiology at [facility] and underwent a heart catheterization on May.24. She reports having one stent placed during that procedure. She reports some trouble breathing since the and was seen in the cardiology clinic yesterday. She states her heart rate was elevated and was between 140 and 180. She was started on several medicines and was scheduled for a follow up visit this next week. [facility] History Medical History: Reports:: Asthma, Atherosclerotic Heart Disease (Dx: 05/24/18), Atrial Fibrillation (Dx: 06/02/18), Congestive Heart Failure, Chronic Obstructive Pulmonary Disease (COPD), Diabetes Mellitus Type 2, Hypertension, Peripheral Artery Disease, Renal Insufficiency Denies:: Seizures Other Surgeries: Yes: Sinus Surgery, Tubal Ligation, Other Amputation: No Fractures: No - *Social History Educational Level: Completed High School Smoking Status: Never smoker Alcohol Intake: never Substance Use Type: denies use Occupational Status: employed Housing: other Household Members: children - Psychiatric History Expresses thoughts of harming self/others: None Suicide Plan Description: No Plan *Family Hx:: Coronary Artery Disease, Diabetes Review of Systems - Constitutional Denies chills, Denies fever(s) - Eyes Denies change in vision - ENT Denies change in voice - *Cardiovascular Denies leg swelling - *Respiratory Denies cough - *Gastrointestinal Denies abdominal pain, Denies bloating - *Genitourinary Denies blood in urine - *Musculoskeletal Denies joint pain - Integumentary/Breasts Denies lesions - *Neurologic Denies confusion - Hematologic/Lymphatic Denies easy bruising Meds Home Medications Medication Instructions Recorded Confirmed Type Gabapentin [Gabapentin 100mg Cap] 100 mg PO TID 03/31/18 06/03/18 History Ipratropium/Albuterol Sulfate 1 puff INHALATION Q4HP PRN 03/31/18 06/03/18 History [Albut-Ipratropium 2.5mg-0.5mg/3 ml] Omeprazole [Omeprazole 40mg 40 mg PO DAILY 03/31/18 06/03/18 History Capsule] Pravastatin Sodium [Pravachol 40mg 40 mg PO HS 03/31/18 06/03/18 History Tablet] aspirin 81 mg tablet,delayed 81 mg PO DAILY 06/02/18 06/03/18 History release Amiodarone HCl 200 mg PO BID 06/03/18 06/03/18 History Apixaban [Eliquis] 5 mg PO BID 06/03/18 06/03/18 History Clopidogrel Bisulfate [Plavix 75mg 75 mg PO DAILY 06/03/18 06/03/18 History Tab] Digoxin 0.125 mg PO DAILY 06/03/18 06/03/18 History Furosemide [Furosemide 20mg Tab] 20 mg PO .qod 06/03/18 06/03/18 History Losartan Potassium [Cozaar] 25 mg PO QHS 06/03/18 06/03/18 History Metoprolol Tartrate 50 mg PO BID 06/03/18 06/03/18 History predniSONE [Prednisone 5mg 10 mg PO DAILY 06/03/18 06/03/18 History Tab] Allergies Allergy/AdvReac Type Severity Reaction Status Date / Time codeine [CODEINE] Allergy Unknown Verified 05/18/18 12:01 Exam Vital signs and Labs for Last 24 Hours: Temp Pulse Resp BP Pulse Ox 98.0 F 106 H 18 104/71 100 06/03/18 10:46 06/03/18 11:00 06/03/18 11:00 06/03/18 10:46 06/03/18 11:00 Laboratory Results - last 24 hr 06/03/18 08:50: WBC 15.5 H D, RBC 4.30, Hgb 12.9, Hct 40.3, MCV 93.8, MCH 30.0, MCHC 32.0, RDW 13.4, Plt Count 286, MPV 7.2 L, Neut % (Auto) 78.8, Lymph % (Auto ) 13.8, [place] % (Auto) 6.6, Eos % (Auto) 0.6, Baso % (Auto) 0.2, Neut # (Auto) 12.2 H, Lymph # (Auto) 2.1, [place] # (Auto) 1.0, Eos # (Auto) 0.1, Baso # (Auto) 0.0, Total Counted 100, Neutrophils % (Manual) 81 H, Band Neutrophils % 4.0, Lymphocytes % (Manual) 10, Monocytes % (Manual) 5, Platelet Estimate Normal 06/03/18 08:50: Sodium 137, Potassium 5.0, Chloride 103, Carbon Dioxide 26, Anion Gap 13.0, BUN 30 H, Creatinine 1.25 H, Estimated GFR 42 L, Est GFR ( Amer) 50 L, Glucose 222 H, Calcium 8.7, Magnesium 1.9, Troponin I 0.14 H 06/03/18 08:50: Digoxin 0.24 L 06/03/18 11:50: Troponin I 0.15 H I & O for Last 24 hours: Intake & Output 06/01/18 06/02/18 06/03/18 06/04/18 11:59 11:59 11:59 11:59 Weight 162 lb 8 oz - Constitutional no acute distress - *Routine HEENT Exam ENT: Present: mucous membranes moist - *Routine Neck Exam Present: supple, full ROM - *Routine Respiratory Exam Present: CTA bilaterally - *Routine Cardiovascular Exam Present: irregularly irregular - *Routine Abdominal Exam Present: soft, normoactive bowel sounds. Absent: tenderness - *Routine Extremities Exam Absent: cyanosis, clubbing, edema - *Routine Skin Exam Present: dry, warm - *Routine Neurological Exam Present: alert, oriented X3 Assessment and Plan (1) Atrial fibrillation with RVR Current visit: No Status: Acute Category: Medical Code(s): I48.91 - Unspecified atrial fibrillation (2) A-fib Current visit: No Status: Acute Qualifiers: Atrial fibrillation type: paroxysmal Qualified Code(s): I48.0 - Paroxysmal atrial fibrillation Category: Medical Code(s): I48.91 - Unspecified atrial fibrillation (3) HTN (hypertension) Current visit: Yes Status: Acute Category: Medical Code(s): I10 - Essential (primary) hypertension (4) Hyperlipemia Current visit: Yes Status: Acute Category: Medical Code(s): E78.5 - Hyperlipidemia, unspecified (5) COPD (chronic obstructive pulmonary disease) Current visit: Yes Status: Acute Category: Medical Code(s): J44.9 - Chronic obstructive pulmonary disease, unspecified (6) CAD (coronary artery disease) Current visit: No Status: Acute Category: Medical Code(s): I25.10 - Atherosclerotic heart disease of [place] coronary artery without angina pectoris (7) Diabetes mellitus Current visit: Yes Status: Acute Category: Medical Code(s): E11.9 - Type 2 diabetes mellitus without complications - Assessment and plan all Dx Assessment and Plan for all problems:: Patient admitted for further evaluation and treatment of her atrial fibrillation with rapid ventricular response. IV cardizem initiated in the ER. Cardiology consulted.
--- NOTE | 2018-06-04 08:30 | Progress Note ---
Internal Medicine - PN: Subj *Date: 06/04/18 *Time: 08:27 Interval history: Patient with no new complaints this morning. Nurse reports Cardizem drip was increased to 15 mg/hr overnight due to elevated heart rate. Exam Vital signs and Labs for Last 24 Hours: Temp Pulse Resp BP Pulse Ox 98.8 F 75 17 106/66 90 L 06/03/18 20:00 06/04/18 06:01 06/04/18 06:00 06/04/18 06:00 06/04/18 06:01 Laboratory Results - last 24 hr 06/03/18 08:50: WBC 15.5 H D, RBC 4.30, Hgb 12.9, Hct 40.3, MCV 93.8, MCH 30.0, MCHC 32.0, RDW 13.4, Plt Count 286, MPV 7.2 L, Neut % (Auto) 78.8, Lymph % (Auto ) 13.8, [place] % (Auto) 6.6, Eos % (Auto) 0.6, Baso % (Auto) 0.2, Neut # (Auto) 12.2 H, Lymph # (Auto) 2.1, [place] # (Auto) 1.0, Eos # (Auto) 0.1, Baso # (Auto) 0.0, Total Counted 100, Neutrophils % (Manual) 81 H, Band Neutrophils % 4.0, Lymphocytes % (Manual) 10, Monocytes % (Manual) 5, Platelet Estimate Normal 06/03/18 08:50: Sodium 137, Potassium 5.0, Chloride 103, Carbon Dioxide 26, Anion Gap 13.0, BUN 30 H, Creatinine 1.25 H, Estimated GFR 42 L, Est GFR ( Amer) 50 L, Glucose 222 H, Calcium 8.7, Magnesium 1.9, Troponin I 0.14 H 06/03/18 08:50: Digoxin 0.24 L 06/03/18 11:50: Troponin I 0.15 H 06/03/18 14:52: Troponin I 0.15 H 06/03/18 16:20: POC Glucose 238 H 06/03/18 19:40: POC Glucose 250 H 06/04/18 06:05: POC Glucose 182 H Vital Signs - 24 hr 06/03/18 09:00 06/03/18 09:15 06/03/18 09:20 Temperature 99.4 F Pulse Rate Pulse Rate [Left Radial] 148 H 152 H 119 H Pulse Rate [Right Brachial] Pulse Rate [Right Radial] Respiratory Rate 26 H 28 H Blood Pressure Blood Pressure [Right Arm] 119/67 131/77 114/73 02 Sat by Pulse Oximetry 94 L 96 06/03/18 09:34 06/03/18 09:41 06/03/18 10:30 Temperature 99.4 F Pulse Rate 93 H Pulse Rate [Left Radial] 104 H 117 H Pulse Rate [Right Brachial] Pulse Rate [Right Radial] Respiratory Rate 24 Blood Pressure 103/63 Blood Pressure [Right Arm] 106/63 104/65 02 Sat by Pulse Oximetry 96 06/03/18 10:35 06/03/18 10:46 06/03/18 11:00 Temperature 98.0 F 98.0 F Pulse Rate Pulse Rate [Left Radial] 120 H 110 H 100 H Pulse Rate [Right Brachial] Pulse Rate [Right Radial] Respiratory Rate 18 18 16 Blood Pressure Blood Pressure [Right Arm] 104/71 104/71 105/73 02 Sat by Pulse Oximetry 90 L 95 98 06/03/18 12:00 06/03/18 13:00 06/03/18 13:57 Temperature 97.7 F Pulse Rate 110 H 83 Pulse Rate [Left Radial] 83 96 H Pulse Rate [Right Brachial] Pulse Rate [Right Radial] Respiratory Rate 16 18 Blood Pressure Blood Pressure [Right Arm] 108/69 103/54 02 Sat by Pulse Oximetry 97 98 98 06/03/18 14:00 06/03/18 14:55 06/03/18 15:00 Temperature 98.1 F Pulse Rate Pulse Rate [Left Radial] 80 88 80 Pulse Rate [Right Brachial] Pulse Rate [Right Radial] Respiratory Rate 16 18 16 Blood Pressure Blood Pressure [Right Arm] 106/60 92/63 100/53 02 Sat by Pulse Oximetry 96 97 95 06/03/18 16:00 06/03/18 16:20 06/03/18 17:00 Temperature 97.8 F Pulse Rate 80 Pulse Rate [Left Radial] 97 H 108 H Pulse Rate [Right Brachial] Pulse Rate [Right Radial] 97 H Respiratory Rate 18 18 Blood Pressure Blood Pressure [Right Arm] 131/37 121/49 02 Sat by Pulse Oximetry 95 96 06/03/18 18:00 06/03/18 20:00 06/03/18 20:10 Temperature 98.8 F Pulse Rate 110 H 91 H Pulse Rate [Left Radial] 96 H Pulse Rate [Right Brachial] 94 H Pulse Rate [Right Radial] Respiratory Rate 16 17 Blood Pressure Blood Pressure [Right Arm] 112/42 131/44 02 Sat by Pulse Oximetry 96 98 06/03/18 20:11 06/03/18 20:30 06/03/18 22:00 Temperature Pulse Rate 88 Pulse Rate [Left Radial] Pulse Rate [Right Brachial] 95 H 89 Pulse Rate [Right Radial] Respiratory Rate 17 17 Blood Pressure Blood Pressure [Right Arm] 127/56 122/53 02 Sat by Pulse Oximetry 98 97 06/03/18 23:00 06/04/18 00:00 06/04/18 02:00 Temperature Pulse Rate 80 Pulse Rate [Left Radial] Pulse Rate [Right Brachial] 90 95 H Pulse Rate [Right Radial] Respiratory Rate Blood Pressure Blood Pressure [Right Arm] 110/72 124/52 02 Sat by Pulse Oximetry 98 95 06/04/18 03:10 06/04/18 04:00 06/04/18 04:19 Temperature Pulse Rate 90 Pulse Rate [Left Radial] Pulse Rate [Right Brachial] 96 H 92 H Pulse Rate [Right Radial] Respiratory Rate Blood Pressure Blood Pressure [Right Arm] 101/59 02 Sat by Pulse Oximetry 92 L 96 96 06/04/18 06:00 06/04/18 06:01 Temperature Pulse Rate 72 Pulse Rate [Left Radial] Pulse Rate [Right Brachial] 94 H Pulse Rate [Right Radial] Respiratory Rate 17 Blood Pressure Blood Pressure [Right Arm] 106/66 02 Sat by Pulse Oximetry 100 90 L I & O for Last 24 hours: Intake & Output 06/01/18 06/02/18 06/03/18 06/04/18 11:59 11:59 11:59 11:59 Intake Total 542 / 542 Output Total 1250 / 1250 Balance -708 / -708 Weight 162 lb 8 oz 165 lb 2 oz Microbiology Reports for the Last 24 Hours: Microbiology 06/03/18 23:37 Sputum - Expectorated Sputum Gram Stain - Final - Constitutional no acute distress - *Routine Respiratory Exam Present: wheezes (occasional, fairly clear overall) - *Routine Cardiovascular Exam Present: irregular rhythm - *Routine Extremities Exam Absent: cyanosis, clubbing, edema Assessment and Plan (1) Atrial fibrillation with RVR Current visit: No Status: Acute Category: Medical Code(s): I48.91 - Unspecified atrial fibrillation (2) A-fib Current visit: No Status: Acute Qualifiers: Atrial fibrillation type: paroxysmal Qualified Code(s): I48.0 - Paroxysmal atrial fibrillation Category: Medical Code(s): I48.91 - Unspecified atrial fibrillation (3) HTN (hypertension) Current visit: Yes Status: Acute Category: Medical Code(s): I10 - Essential (primary) hypertension (4) Hyperlipemia Current visit: Yes Status: Acute Category: Medical Code(s): E78.5 - Hyperlipidemia, unspecified (5) COPD (chronic obstructive pulmonary disease) Current visit: Yes Status: Acute Category: Medical Code(s): J44.9 - Chronic obstructive pulmonary disease, unspecified (6) CAD (coronary artery disease) Current visit: No Status: Acute Category: Medical Code(s): I25.10 - Atherosclerotic heart disease of [place] coronary artery without angina pectoris (7) Diabetes mellitus Current visit: Yes Status: Acute Category: Medical Code(s): E11.9 - Type 2 diabetes mellitus without complications - Assessment and plan all Dx Assessment and Plan for all problems:: Patient is stable, she is NPO for pending cardiology evaluation. Continue current treatment.
[2018-06-04 09:06] LABS: Basophils % 0.1 % (0.1-2.0); Eosinophils # 0.1 K/mm3 (0.0-0.4); Eosinophils % 0.6 % (0.1-12.0); Hematocrit 35.9 % (37.0-47.0); Hemoglobin 11.3 g/dL (12.2-16.2); Lymphocytes # 2.2 K/mm3 (0.7-4.5); Lymphocytes % 17.5 K/mm3 (10-50); Mean Corpuscular HGB Conc 31.6 g/dL (31.8-35.4); Mean Corpuscular Volume 93.7 fl (81-99); Mean Platelet Volume 7.6 fl (7.4-10.4); Monocytes # 0.8 K/mm3 (0.1-1.0); Monocytes % 6.6 % (1.7-9.3); Neutrophils # 9.5 K/mm3 (1.8-7.8); Neutrophils % 75.1 % (37.0-80.0); Platelet Count 262 K/mm3 (142-424); Red Blood Count 3.83 M/mm3 (4.20-5.40); Red Cell Distribution Width 13.6 % (11.5-17.5); White Blood Count 12.7 K/mm3 (4.8-10.8)
[2018-06-04 09:32] LABS: Anion Gap 13.3 mEq/L (5-15); Calcium 7.9 mg/dL (8.5-10.1)
--- NOTE | 2018-06-05 08:04 | Progress Note ---
Internal Medicine - PN: Subj *Date: 06/05/18 *Time: 08:00 Interval history: Patient is excited to be in sinus rhythm. She can tell that her heart is regular. She denies chest pain shortness of breath. She slept well. She ate problems yesterday. Patient has converted to sinus rhythm and was started on p.o. Cardizem. Exam Vital signs and Labs for Last 24 Hours: Temp Pulse Resp BP Pulse Ox 98.2 F 64 16 124/56 95 06/05/18 04:00 06/05/18 05:00 06/05/18 05:00 06/05/18 05:00 06/05/18 06:20 Laboratory Results - last 24 hr 06/04/18 08:57: WBC 12.7 H, RBC 3.83 L, Hgb 11.3 L, Hct 35.9 L, MCV 93.7, MCH 29.6, MCHC 31.6 L, RDW 13.6, Plt Count 262, MPV 7.6, Neut % (Auto) 75.1, Lymph % (Auto) 17.5, [place] % (Auto) 6.6, Eos % (Auto) 0.6, Baso % (Auto) 0.1, Neut # ( Auto) 9.5 H, Lymph # (Auto) 2.2, [place] # (Auto) 0.8, Eos # (Auto) 0.1, Baso # ( Auto) 0.0 06/04/18 08:57: Sodium 135 L, Potassium 5.3 H, Chloride 103, Carbon Dioxide 24, Anion Gap 13.3, BUN 36 H, Creatinine 1.43 H, Estimated Creat Clear 39, Estimated GFR 36 L, Est GFR ( Amer) 43 L, Glucose 173 H, Calcium 7.9 L, Total Creatine Kinase 31, CK-MB (CK-2) 0.7 D, CK-MB (CK-2) Rel Index 2.3, Troponin I 0.18 H 06/04/18 12:33: POC Glucose 165 H 06/04/18 16:34: POC Glucose 364 H* 06/04/18 20:44: POC Glucose 281 H 06/05/18 06:17: POC Glucose 127 H I & O for Last 24 hours: Intake & Output 06/02/18 06/03/18 06/04/18 06/05/18 11:59 11:59 11:59 11:59 Intake Total 542 / 542 681 / 681 Output Total 1250 / 1250 200 / 200 Balance -708 / -708 481 / 481 Weight 162 lb 8 oz 165 lb 2 oz 168 lb 8 oz Microbiology Reports for the Last 24 Hours: Microbiology 06/03/18 23:37 Sputum - Expectorated Sputum Gram Stain - Final Radiology Reports for the Last 24 Hours: 06/03/2018 chest x-ray IMPRESSION mild accentuation of markings at bases most likely reflects reflect minimal basilar atelectasis and technique there may be slight additional vascular engorgement. Difficult to exclude early infiltrate right infrahilar region - Constitutional no acute distress Comments: Patient is sitting on commode in bathroom taking a bath. - *Routine Respiratory Exam Comments: Right basilar crackles good air movement bilaterally - *Routine Cardiovascular Exam Present: RRR Comments: Monitor shows normal sinus rhythm. - *Routine Abdominal Exam Present: soft, normoactive bowel sounds. Absent: tenderness - *Routine Extremities Exam Comments: Trace of bilateral leg edema - *Routine Neurological Exam Present: alert, oriented X3 Assessment and Plan (1) Atrial fibrillation with RVR Current visit: No Status: Acute Category: Medical Code(s): I48.91 - Unspecified atrial fibrillation (2) A-fib Current visit: No Status: Acute Qualifiers: Atrial fibrillation type: paroxysmal Qualified Code(s): I48.0 - Paroxysmal atrial fibrillation Category: Medical Code(s): I48.91 - Unspecified atrial fibrillation (3) HTN (hypertension) Current visit: Yes Status: Acute Category: Medical Code(s): I10 - Essential (primary) hypertension (4) Hyperlipemia Current visit: Yes Status: Acute Category: Medical Code(s): E78.5 - Hyperlipidemia, unspecified (5) COPD (chronic obstructive pulmonary disease) Current visit: Yes Status: Acute Category: Medical Code(s): J44.9 - Chronic obstructive pulmonary disease, unspecified (6) CAD (coronary artery disease) Current visit: No Status: Acute Category: Medical Code(s): I25.10 - Atherosclerotic heart disease of [place] coronary artery without angina pectoris (7) Diabetes mellitus Current visit: Yes Status: Acute Category: Medical Code(s): E11.9 - Type 2 diabetes mellitus without complications - Assessment and plan all Dx Assessment and Plan for all problems:: Cardiology to see this a.m. Continue p.o. Cardizem and meds as per cardiology. Will repeat labs now.
[2018-06-05 08:37] LABS: Basophils % 0.3 % (0.1-2.0); Eosinophils # 0.1 K/mm3 (0.0-0.4); Eosinophils % 1.3 % (0.1-12.0); Hematocrit 35.8 % (37.0-47.0); Hemoglobin 11.4 g/dL (12.2-16.2); Lymphocytes % 17.8 K/mm3 (10-50); Mean Platelet Volume 7.5 fl (7.4-10.4); Monocytes # 0.7 K/mm3 (0.1-1.0); Monocytes % 6.3 % (1.7-9.3); Neutrophils # 8.1 K/mm3 (1.8-7.8); Neutrophils % 74.3 % (37.0-80.0); Platelet Count 273 K/mm3 (142-424); Red Blood Count 3.81 M/mm3 (4.20-5.40); Red Cell Distribution Width 13.6 % (11.5-17.5); White Blood Count 10.9 K/mm3 (4.8-10.8)
[2018-06-05 08:38] LABS: Anion Gap 7.9 mEq/L (5-15)
[2018-06-05 08:39] LABS: Calcium 8.1 mg/dL (8.5-10.1)
--- NOTE | 2018-06-05 08:59 | Consult Report ---
History of Present Illness Consult date: 06/05/18 Requesting physician: Yousuf Valencia Consult reason: shortness of breath Chief complaint: SOA Additional Medical History:: 1. Coronary artery disease A. Drug-eluting stent placement to LAD, 05/24/18 B. Shortness of breath with Brilinta, resolved with switching to Plavix 2. New onset atrial fibrillation, 05/2018 A. Amiodarone therapy started 06/02/18 B. TSH normal 03/2018 3. Diabetes mellitus 4. Hypertension 5. Hyperlipidemia 6. Mild chronic kidney disease, stage II A. GFR 35, creatinine 1.45 on 05/2018 7. COPD/asthma 8. History of cardiomyopathy A. Echocardiogram, 04/2018, CONCLUSION: 1. Mildly enlarged left atrium, normal left ventricular size, moderate concentric left ventricular hypertrophy, reduced left ventricular systolic function, visually estimated ejection fraction 30%, left ventricle is globally hypokinetic, there is abnormal septal motion. 2. Moderate mitral and mild tricuspid regurgitation, calculated right ventricular systolic pressure is 54 mmHg consistent with moderate pulmonary hypertension, grade 1 diastolic dysfunction seen with tissue Doppler evidence of raised left atrial pressure. 3. No significant pericardial effusion noted. B. Right and left heart cath, 05/2018, ANGIOGRAPHIC RESULTS: 1. The left main artery normal 2. The left anterior descending artery has proximal normal segment followed by a mid vessel angiographically indeterminate stenosis between 40 and 70%. The distal vessel is highly tortuous 3. The circumflex artery is dominant and large caliber vessel and angiographically normal 4. The right coronary artery nondominant and normal 5. The [place] ventriculogram reveals appears preserved at 50% 6. The left ventricular end-diastolic pressure 10 HEMODYNAMICS: Pulmonary artery occlusion pressure is 8 mm Hg. Pulmonary arterial pressure is 12 mm Hg. Right atrial pressure is 35/20 mm Hg. SATURATIONS: PA is 83 %. RA is 85 %. IMPRESSION: 1. Hemodynamically severe mid LAD disease 2. Preserved ejection fraction 3. Normal left ventricular end-diastolic pressure 4. Successful stenting of the mid LAD hemodynamic the severe disease reduced to 0% with 1 drug-eluting stent 5. Mild pulmonary hypertension PLAN: 1. Brilinta and aspirin 2. LDL less than 55 3. Cardiac rehabilitation 4. Avoidance of tobacco products 5. Patient may benefit from low-dose diuresis History of present illness: 78 year old female with a history of CAD with recent coronary stent placement and recent diagnosis of atrial fibrillation presented to [facility] ER this morning complaining of shortness of breath. She states symptoms were present most of the night and she was unable to sleep because of her trouble breathing. She took a nebulizer treatment which did not clinical applications specialist her any relief so she came to the ER for further evaluation. Patient was seen last month in the office of [facility] and found to have peripheral edema. An echocardiogram was ordered and showed an EF of 30% . She was referred to cardiology at [facility] and underwent a heart catheterization on May.24. She reports having one stent placed during that procedure. She reports some trouble breathing since the and was seen in the cardiology clinic yesterday. She states her heart rate was elevated and was between 140 and 180. She was started on several medicines and was scheduled for a follow up visit this next week The above per Dr. Montanez. Overnight the patient converted back to sinus rhythm on IV Cardizem and has been switched to p.o. dosing at this time. Her symptoms have completely resolved. Her troponin had been marginally elevated during her hospital stay and is now near normal this morning. EKG this a.m. shows sinus rhythm with left bundle branch block. [facility] History Medical History: Reports:: Asthma, Atherosclerotic Heart Disease (Dx: 05/24/18), Atrial Fibrillation (Dx: 06/02/18), Congestive Heart Failure, Chronic Obstructive Pulmonary Disease (COPD), Diabetes Mellitus Type 2, Hypertension, Peripheral Artery Disease, Renal Insufficiency Denies:: Seizures Other Surgeries: Yes: Sinus Surgery, Tubal Ligation, Other Amputation: No Fractures: No - *Social History Educational Level: Completed High School Smoking Status: Never smoker Alcohol Intake: never Substance Use Type: denies use Occupational Status: employed Housing: other Household Members: children - Psychiatric History Expresses thoughts of harming self/others: None Suicide Plan Description: No Plan *Family Hx:: Coronary Artery Disease, Diabetes Meds Home Medications Medication Instructions Recorded Confirmed Type Gabapentin [Gabapentin 100mg Cap] 100 mg PO TID 03/31/18 06/03/18 History Ipratropium/Albuterol Sulfate 1 puff INHALATION Q4HP PRN 03/31/18 06/03/18 History [Albut-Ipratropium 2.5mg-0.5mg/3 ml] Omeprazole [Omeprazole 40mg 40 mg PO DAILY 03/31/18 06/03/18 History Capsule] Pravastatin Sodium [Pravachol 40mg 40 mg PO HS 03/31/18 06/03/18 History Tablet] aspirin 81 mg tablet,delayed 81 mg PO DAILY 06/02/18 06/03/18 History release Amiodarone HCl 200 mg PO BID 06/03/18 06/03/18 History Apixaban [Eliquis] 5 mg PO BID 06/03/18 06/03/18 History Clopidogrel Bisulfate [Plavix 75mg 75 mg PO DAILY 06/03/18 06/03/18 History Tab] Digoxin 0.125 mg PO DAILY 06/03/18 06/03/18 History Furosemide [Furosemide 20mg Tab] 20 mg PO .qod 06/03/18 06/03/18 History Losartan Potassium [Cozaar] 25 mg PO QHS 06/03/18 06/03/18 History Metoprolol Tartrate 50 mg PO BID 06/03/18 06/03/18 History predniSONE [Prednisone 5mg 10 mg PO DAILY 06/03/18 06/03/18 History Tab] Allergies Allergy/AdvReac Type Severity Reaction Status Date / Time codeine [CODEINE] Allergy Unknown Verified 05/18/18 12:01 Review of Systems - *Cardiovascular Reports shortness of breath - *Gastrointestinal Denies bloating, Denies loose stools - *Genitourinary Denies difficulty urinating - *Musculoskeletal Denies abnormal walking - *Neurologic Denies confusion Exam Vital signs and Labs for Last 24 Hours: Temp Pulse Resp BP Pulse Ox 98.2 F 66 16 124/56 95 06/05/18 04:00 06/05/18 08:16 06/05/18 05:00 06/05/18 05:00 06/05/18 06:20 Laboratory Results - last 24 hr 06/04/18 08:57: WBC 12.7 H, RBC 3.83 L, Hgb 11.3 L, Hct 35.9 L, MCV 93.7, MCH 29.6, MCHC 31.6 L, RDW 13.6, Plt Count 262, MPV 7.6, Neut % (Auto) 75.1, Lymph % (Auto) 17.5, [place] % (Auto) 6.6, Eos % (Auto) 0.6, Baso % (Auto) 0.1, Neut # ( Auto) 9.5 H, Lymph # (Auto) 2.2, [place] # (Auto) 0.8, Eos # (Auto) 0.1, Baso # ( Auto) 0.0 06/04/18 08:57: Sodium 135 L, Potassium 5.3 H, Chloride 103, Carbon Dioxide 24, Anion Gap 13.3, BUN 36 H, Creatinine 1.43 H, Estimated Creat Clear 39, Estimated GFR 36 L, Est GFR ( Amer) 43 L, Glucose 173 H, Calcium 7.9 L, Total Creatine Kinase 31, CK-MB (CK-2) 0.7 D, CK-MB (CK-2) Rel Index 2.3, Troponin I 0.18 H 06/04/18 12:33: POC Glucose 165 H 06/04/18 16:34: POC Glucose 364 H* 06/04/18 20:44: POC Glucose 281 H 06/05/18 06:17: POC Glucose 127 H 06/05/18 08:20: WBC 10.9 H, RBC 3.81 L, Hgb 11.4 L, Hct 35.8 L, MCV 94.0, MCH 30.1, MCHC 32.0, RDW 13.6, Plt Count 273, MPV 7.5, Neut % (Auto) 74.3, Lymph % ( Auto) 17.8, [place] % (Auto) 6.3, Eos % (Auto) 1.3, Baso % (Auto) 0.3, Neut # (Auto ) 8.1 H, Lymph # (Auto) 2.0, [place] # (Auto) 0.7, Eos # (Auto) 0.1, Baso # (Auto) 0.0 06/05/18 08:20: Troponin I 0.08 H 06/05/18 08:20: Sodium 136, Potassium 4.5, Chloride 101, Carbon Dioxide 27, Anion Gap 7.9, BUN 42 H, Creatinine 1.45 H, Estimated Creat Clear 39, Estimated GFR 35 L, Est GFR ( Amer) 42 L, Glucose 137 H D, Calcium 8.1 L I & O for Last 24 hours: Intake & Output 06/02/18 06/03/18 06/04/18 06/05/18 11:59 11:59 11:59 11:59 Intake Total 542 / 542 681 / 681 Output Total 1250 / 1250 200 / 200 Balance -708 / -708 481 / 481 Weight 162 lb 8 oz 165 lb 2 oz 168 lb 8 oz Microbiology Reports for the Last 24 Hours: Microbiology 06/03/18 23:37 Sputum - Expectorated Sputum Gram Stain - Final 06/03/18 23:37 Sputum - Expectorated Sputum Sputum Culture - Preliminary - *Routine Neck Exam Absent: JVD, carotid bruit - *Routine Respiratory Exam Present: CTA bilaterally - *Routine Cardiovascular Exam Present: RRR. Absent: murmur, gallop, rubs - *Routine Abdominal Exam Present: soft. Absent: tenderness - *Routine Extremities Exam Absent: edema - *Routine Neurological Exam Present: alert, oriented X3, moving all extremities Assessment and Plan (1) Atrial fibrillation with RVR Current visit: No Status: Acute Category: Medical Code(s): I48.91 - Unspecified atrial fibrillation (2) A-fib Current visit: No Status: Acute Qualifiers: Atrial fibrillation type: paroxysmal Qualified Code(s): I48.0 - Paroxysmal atrial fibrillation Category: Medical Code(s): I48.91 - Unspecified atrial fibrillation (3) HTN (hypertension) Current visit: Yes Status: Acute Category: Medical Code(s): I10 - Essential (primary) hypertension (4) Hyperlipemia Current visit: Yes Status: Acute Category: Medical Code(s): E78.5 - Hyperlipidemia, unspecified (5) COPD (chronic obstructive pulmonary disease) Current visit: Yes Status: Acute Category: Medical Code(s): J44.9 - Chronic obstructive pulmonary disease, unspecified (6) CAD (coronary artery disease) Current visit: No Status: Acute Category: Medical Code(s): I25.10 - Atherosclerotic heart disease of [place] coronary artery without angina pectoris (7) Diabetes mellitus Current visit: Yes Status: Acute Category: Medical Code(s): E11.9 - Type 2 diabetes mellitus without complications - Assessment and plan all Dx Assessment and Plan for all problems:: 1. Patient has converted back to sinus rhythm on a combination of increase in her amiodarone to 400 mg twice daily, continuation of digoxin 0.125 mg daily and institution of diltiazem now on p.o. dosing of 60 mg every 8 hours. Beta- kaylie had been discontinued with blood pressure well controlled at this time. Patient is on Xarelto therapy 15 mg daily. Continue this combination of medications. With history of cardiomyopathy by echo but near normal LVEF at cath , will need to reassess LVEF and medical therapy in the near future with consideration for switching diltiazem to beta kaylie if cardiomyopathy returns. 2. Recent coronary artery stenting for which the patient is on aspirin and Plavix. Continue this combination of medication. 3. Patient will see Dr. Daily in the office on 06/08/2018 for follow-up and further evaluation. 4. Okay for discharge from cardiology standpoint.
--- NOTE | 2018-06-06 15:01 | Discharge Summary ---
General - General Admission date:: 06/03/18 Discharge date: 06/05/18 HPI HPI: 78 year old female with a history of CAD with recent coronary stent placement and recent diagnosis of atrial fibrillation presented to [facility] ER this morning complaining of shortness of breath. She states symptoms were present most of the night and she was unable to sleep because of her trouble breathing. 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 Patient was seen last month in the office of [facility] and found to have peripheral edema. An echocardiogram was ordered and showed an EF of 30%. She was referred to cardiology at [facility] and underwent a heart catheterization on May.24. She reports having one stent placed during that procedure. She reports some trouble breathing since the and was seen in the cardiology clinic yesterday. She states her heart rate was elevated and was between 140 and 180. She was started on several medicines and was scheduled for a follow up visit th is next week. Hospital Course Hospital Course: The patient was admitted for further evaluation and treatment of her atrial fibrillation with rapid ventricular response. IV cardizem was initiated in the ER. Cardiology was consulted. She did convert to NSR and her cardizem drip was discontinued. She was started on PO cardizem. The patient was seen by car diology and they felt she was stable to be discharged home on lasix 20mg QOD, an increased dose of amiodarone to 400 mg twice daily, continuation of digoxin 0.125 mg daily, and diltiazem 60 mg every 8 hours. Her beta-kaylie was discontinued and her blood pressure was well controlled. She is currently on Xarelto therapy 15 mg daily. With her history of cardiomyopathy by echo but near normal LVEF at cath, cardiology felt they will need to reassess LVEF and medical therapy in the near future with consideration for switching diltiazem to beta kaylie if cardiomyopathy returns. She will f/u with Dr. Daily in the office on 06/08/2018. Objective Vital signs: Temp Pulse Resp BP Pulse Ox 98.0 F 75 16 131/59 91 L 06/05/18 15:46 06/05/18 16:00 06/05/18 15:46 06/05/18 15:46 06/05/18 15:46 Narrative: - Constitutional no acute distress - *Routine HEENT Exam ENT: Present: mucous membranes moist - *Routine Neck Exam Present: supple, full ROM - *Routine Respiratory Exam Present: CTA bilaterally - *Routine Cardiovascular Exam Present: irregularly irregular - *Routine Abdominal Exam Present: soft, normoactive bowel sounds. Absent: tenderness - *Routine Extremities Exam Absent: cyanosis, clubbing, edema - *Routine Skin Exam Present: dry, warm - *Routine Neurological Exam Present: alert, oriented X3 Results Labs on day of discharge: Labs from last 24 hours 06/05/18 16:03 POC Glucose 290 H Preliminary micro results at discharge 06/03/18 23:37 Sputum Culture - Preliminary Sputum - Expectorated Sputum Gram Negative Coccobacilli DS: Diagnosis - Discharge Diagnosis (1) Atrial fibrillation with RVR Status: Acute (2) A-fib Status: Acute (3) HTN (hypertension) Status: Acute (4) Hyperlipemia Status: Acute (5) COPD (chronic obstructive pulmonary disease) Status: Acute (6) CAD (coronary artery disease) Status: Acute (7) Diabetes mellitus Status: Acute Discharge Plan - Patient Discharge Instructions ACTIVITY: Limited activity DIET: continue same diet Patient Instructions: Atrial Fibrillation, Heart-Healthy Diet - Follow up Plan Follow up with: Yousuf Valencia MD [Primary Care Provider] - 06/12/18 (Also needs follow-up with Dr. Chadwick) Disposition: Home, Self-Retirement Medications: Home Medications Medication Instructions Recorded Confirmed Type Gabapentin [Gabapentin 100mg Cap] 100 mg PO TID 03/31/18 06/03/18 History Ipratropium/Albuterol Sulfate 1 puff INHALATION Q4HP PRN 03/31/18 06/03/18 History [Albut-Ipratropium 2.5mg-0.5mg/3 ml] Omeprazole [Omeprazole 40mg 40 mg PO DAILY 03/31/18 06/03/18 History Capsule] Pravastatin Sodium [Pravachol 40mg 40 mg PO HS 03/31/18 06/03/18 History Tablet] aspirin 81 mg tablet,delayed 81 mg PO DAILY 06/02/18 06/03/18 History release Amiodarone HCl 200 mg PO BID 06/03/18 06/03/18 History Apixaban [Eliquis] 5 mg PO BID 06/03/18 06/03/18 History Clopidogrel Bisulfate [Plavix 75mg 75 mg PO DAILY 06/03/18 06/03/18 History Tab] Digoxin 0.125 mg PO DAILY 06/03/18 06/03/18 History Furosemide [Furosemide 20mg Tab] 20 mg PO .qod 06/03/18 06/03/18 History Losartan Potassium [Cozaar] 25 mg PO QHS 06/03/18 06/03/18 History Metoprolol Tartrate 50 mg PO BID 06/03/18 06/03/18 History predniSONE [Prednisone 5mg 10 mg PO DAILY 06/03/18 06/03/18 History Tab] Prescriptions/Medication Reconciliation: New Amiodarone HCl [Cordarone 200mg tablet] 400 mg PO BID #60 tab dilTIAZem HCl [Cardizem 60mg tab] 60 mg PO Q8H #90 tab Furosemide [Furosemide 20mg Tab] 20 mg PO DAILY #30 tab Continue aspirin 81 mg tablet,delayed release 81 mg PO DAILY Omeprazole [Omeprazole 40mg Capsule] 40 mg PO DAILY Ipratropium/Albuterol Sulfate [Albut-Ipratropium 2.5mg-0.5mg/3 ml] 1 puff INHALATION Q4HP PRN PRN Reason: Wheezing Gabapentin [Gabapentin 100mg Cap] 100 mg PO TID predniSONE [Prednisone 5mg Tab] 10 mg PO DAILY Metoprolol Tartrate 50 mg PO BID Digoxin 0.125 mg PO DAILY Clopidogrel Bisulfate [Plavix 75mg Tab] 75 mg PO DAILY Apixaban [Eliquis] 5 mg PO BID Pravastatin Sodium [Pravachol 40mg Tablet] 40 mg PO HS Losartan Potassium [Cozaar] 25 mg PO QHS Discontinued Furosemide [Furosemide 20mg Tab] 20 mg PO .qod Amiodarone HCl 200 mg PO BID
== END 2018-06-05 18:56 | disposition home or self-care (01) | DRG 309 ==
LOC: ER 08:33 → 2ND 09:45 → INTOOBSV 10:30 → 2ND 10:31
PROVIDERS: ADMIT Family Medicine; ATTEND Family Medicine
CPT/HCPCS: 36415; 71010; 71045; 80048; 80076; 80162; 82550; 82553; 82962; 83735; 84439; 84443; 84484; 85007; 85025; 87070; 87077; 87184; 87205; 93005; 94640; 94761; 96365; 96366; 96375; 99284; G0378; J2405

== ENCOUNTER → 2018-06-13 10:54 | Outpatient (CLI) | payer MEDICARE, SELFPAY ==
[2018-06-13 11:54] LABS: Anion Gap 12.3 mEq/L (5-15); Blood Urea Nitrogen 28 mg/dL (7-18); Carbon Dioxide 32 mmol/L (21.0-32.0); Chloride 102 mmol/L (98-107); Estimated Glomerular Filt Rate 36 ml/min (>60); GFR (African American) 44 ML/MIN (>60); Glucose 212 mg/dL (74-106); Potassium 4.3 mmoL/L (3.5-5.1); Sodium 142 mmol/L (136-145)
== END ==
PROVIDERS: Family Provider Family Medicine; PCP Family Medicine; Visit Provider Internal Medicine Cardiovascular Disease
DX: R94.31 Abnormal electrocardiogram [ECG] [EKG] (principal); I48.91 Unspecified atrial fibrillation
CPT/HCPCS: 36415; 80048

== ENCOUNTER → 2018-06-23 11:45 | Outpatient (CLI) | payer MEDICARE, SELFPAY ==
[2018-06-23 14:03] LABS: Alanine Aminotransferase 32 U/L (12-78); Albumin Level 3.5 gm/dL (3.4-5.0); Alkaline Phosphatase 64 U/L (46-116); Anion Gap 14.9 mEq/L (5-15); Aspartate Amino Transferase 16 U/L (15-37); Bilirubin,Direct 0.2 mg/dL (0.0-0.2); Bilirubin,Indirect 0.4 mg/dL (0.0-0.9); Bilirubin,Total 0.6 mg/dL (0.2-1.0); Blood Urea Nitrogen 34 mg/dL (7-18); Calcium 8.9 mg/dL (8.5-10.1); Carbon Dioxide 29 mmol/L (21.0-32.0); Chloride 103 mmol/L (98-107); Creatinine,Serum 1.53 mg/dL (0.55-1.02); Digoxin 2.13 ng/mL (1.15-2.56); Estimated Glomerular Filt Rate 33 ml/min (>60); Free T4 (Free Thyroxine) 1.35 ng/dl (0.76-1.46); Free Thyroxine Index 4.6 ug/dL (5.93-13.13); GFR (African American) 40 ML/MIN (>60); Glucose 169 mg/dL (74-106); Potassium 4.9 mmoL/L (3.5-5.1); Sodium 142 mmol/L (136-145); T4 (Thyroxine) 12.4 ug/dl (4.7-13.3); Thyroid Stimulating Hormone 2.09 uIU/ml (0.358-3.740); Total Protein,Serum 6.5 gm/dL (6.4-8.2); Triiodothryronine (T3) Uptake 37 % (31-39)
== END ==
PROVIDERS: Urology; PCP Family Medicine; Visit Provider Internal Medicine Cardiovascular Disease
DX: E11.8 Type 2 diabetes mellitus with unspecified complications (principal); I48.0 Paroxysmal atrial fibrillation; I10 Essential (primary) hypertension; I25.10 Atherosclerotic heart disease of native coronary artery without angina pectoris; R00.1 Bradycardia, unspecified; Z79.01 Long term (current) use of anticoagulants; E78.2 Mixed hyperlipidemia
CPT/HCPCS: 36415; 80048; 80076; 80162; 84436; 84439; 84443; 84479

== ENCOUNTER → 2018-07-13 13:13 | Outpatient (CLI) | payer MEDICARE, SELFPAY ==
[2018-07-13 15:15] LABS: Anion Gap 13.6 mEq/L (5-15); Blood Urea Nitrogen 22 mg/dL (7-18); Calcium 8.8 mg/dL (8.5-10.1); Carbon Dioxide 30 mmol/L (21.0-32.0); Chloride 101 mmol/L (98-107); Creatinine,Serum 1.19 mg/dL (0.55-1.02); Estimated Glomerular Filt Rate 44 ml/min (>60); GFR (African American) 53 ML/MIN (>60); Glucose 204 mg/dL (74-106); Potassium 4.6 mmoL/L (3.5-5.1); Sodium 140 mmol/L (136-145)
[2018-07-13 15:22] LABS: Chol/HDL Ratio 2.3 (1-3.5); Cholesterol 176 mg/dL (140-200); Digoxin 1.79 ng/mL (1.15-2.56); HDL Cholesterol 76 mg/dL (29-89); LDL Cholesterol 84 mg/dL (0-130); Triglycerides 81 mg/dL (30-200); VLDL Cholesterol 16 mg/dL (0-40)
== END ==
LOC: LAB 14:46 → RT 14:48
PROVIDERS: Internal Medicine; PCP Family Medicine; Visit Provider Internal Medicine Cardiovascular Disease
DX: I10 Essential (primary) hypertension (principal); E11.9 Type 2 diabetes mellitus without complications; E78.5 Hyperlipidemia, unspecified; I27.20 Pulmonary hypertension, unspecified; I34.0 Nonrheumatic mitral (valve) insufficiency; I48.91 Unspecified atrial fibrillation; J44.9 Chronic obstructive pulmonary disease, unspecified; Z79.01 Long term (current) use of anticoagulants; R06.00 Dyspnea, unspecified; I25.10 Atherosclerotic heart disease of native coronary artery without angina pectoris; Z79.899 Other long term (current) drug therapy
CPT/HCPCS: 36415; 80048; 80061; 80162; 93225

== ENCOUNTER → 2018-11-13 14:13 | Outpatient (CLI) | payer MEDICARE, SELFPAY ==
--- NOTE | 2018-11-13 14:17 | CA_ITS ---
PROCEDURE: 2-D M-mode and color Doppler study INDICATIONS FOR THE TEST: Chest pain COPD Heart Murmur Tobacco Smoking Palpitations Fatigue Syncope Edema Hypertension+Diabetes Mellitus Rheumatic Fever SOB+DUFF Obesity Hyperlipidemia+ Family History HD Additional History CM, CAD,PAF PATIENT INFORMATION HEIGHT: 59 WEIGHT:147 GENDER: Female B/P:127/63 2-D/M-MODE INTERPRETATION: 2-D MEASUREMENTS OBSERVED VALUES IN CMS Right Ventricular Dimension (RVDd) 2.3 Interventricular Septum (Thickness)(IVsd) 1.6 Left Ventricular Internal Dimensions(LVIDd) 4.8 Left Ventricular Posterior Wall (Thickness)(LVPWd) 0.8 Aortic Root 3.0 Aortic Cusp Separation 1.8 Left Atrial Dimensions (LAD) 4.2 2D 1. Left atrium is mildly enlarged, left ventricle is normal size, there is mild concentric left ventricular hypertrophy, visually estimated ejection fraction approximately 45%, there is abnormal septal motion. 2. The right atrium and right ventricle are normal size and contractility. 3. The aortic valve is thickened and calcified leaflet continue to display mobility. 4. The mitral and tricuspid valve leaflets are minimally thickened. 5. The pulmonic valve is poorly visualized. 6. No significant pericardial effusion noted. DOPPLER INTERROGATION: Doppler interrogation of the aortic, mitral and tricuspid valvular presence of mild mitral and tricuspid regurgitation, likely related right ventricular systolic pressure is 43 mmHg consistent with moderate pulmonary hypertension, grade 1 diastolic dysfunction seen without tissue Doppler evidence of raised left atrial pressure. CONCLUSION: 1. Mildly enlarged left atrium, normal left ventricular size, mild concentric left ventricular hypertrophy, visually estimated ejection fraction 45%, there is abnormal septal motion, grade 1 diastolic dysfunction seen without tissue Doppler evidence of raised left atrial pressure. 2. Mild mitral and tricuspid regurgitation, calculated ventricular systolic pressure is 43 mmHg consistent with moderate pulmonary hypertension. 3. No significant pericardial effusion noted.
== END ==
PROVIDERS: PCP Family Medicine; Visit Provider Internal Medicine Cardiovascular Disease
DX: I48.0 Paroxysmal atrial fibrillation (principal)
CPT/HCPCS: 93306

== ENCOUNTER → 2019-02-27 08:34 | Outpatient (CLI) | payer MEDICARE, SELFPAY ==
--- NOTE | 2019-02-27 08:34 | US_ITS ---
US Arterial Ankle Brachial Ind History: ITS.REASON: resting bilateral rest pain, bilateral claudication, peripheral vascular disease with stents ORDERING PHYSICIAN: Desiree Hernández APRN PATIENT AGE: 78 years TECHNIQUE: Segmental pressures obtained of both right and left leg. These are compared to brachial blood pressure to yield index at each level sampled including summary MICHELE. The data sheets from the procedure are available in PACS FINDINGS Rest study only performed today No prior studies available for comparison. Blood pressures reported are in millimeters mercury. RIGHT LEG MICHELE = 0.6. RIGHT LEG TBI=0.5 Brachial BP: 178 Thigh BP: 173 Calf BP: 175 Ankle PT: 100 Ankle DP : 140 Digit =84 LEFT LEG MICHELE = 0.3 LEFT LEG TBI= 0.2 Brachial BPD: 182 Thigh BP: 107 Calf BP: 117 Ankle PT:45 Ankle DP: 48 Digit = 30 Pulses and waveforms: Diminished pulses and depressed wave forms IMPRESSION: 1. Abnormal ABIs at 0.6 on the right and 0.3 on the left suggesting moderate peripheral vascular disease on the right and severe peripheral vascular disease on the left.
== END ==
PROVIDERS: PCP Family Medicine; Visit Provider Nurse Practitioner Family
DX: I73.9 Peripheral vascular disease, unspecified (principal)
CPT/HCPCS: 93922

== ENCOUNTER → 2019-03-08 15:02 | Outpatient (CLI) | payer MEDICARE, SELFPAY ==
--- NOTE | 2019-03-08 15:09 | XR_ITS ---
XR foot LT min 3V HISTORY: Pain and swelling ITS.REASON: CELLULITIS OF LT FOOT ORDERING PHYSICIAN: EUGENIA Amaral PATIENT AGE: 78 years COMPARISON: None FINDINGS: No fracture or dislocation. No lytic or blastic change. There is normal mineralization.. The joint spaces are well-preserved. No significant degenerative/arthritic changes. No erosive changes evident. Vascular calcification is present. There is a 10 mm bony spur at the calcaneal surface inferiorly. Calcification is present along the plantar aspect of the foot and could be due to plantar fasciitis Nonspecific calcifications are present along the plantar surface of the foot, which may be vascular. IMPRESSION: 1. No acute fracture or dislocation. 2. Nonspecific calcification along the plantar surface of the foot. Plantar fasciitis or vascular calcification is a consideration
== END ==
PROVIDERS: PCP Family Medicine; Visit Provider Physician Assistant
DX: L03.116 Cellulitis of left lower limb (principal)
CPT/HCPCS: 73630

== ENCOUNTER 2019-08-16 11:33 | Observation (INO) ==
--- NOTE | 2019-08-16 11:46 | History & Physical Report ---
*Admission Date: 08/16/19 <Elba Vasquez 08/16/19 11:52> *Chief complaint: Left foot and leg pain <Elba Vasquez 08/16/19 11:52> *History of present illness: Ms. Zamora is a 79-year-old female with a history of diabetes, hypertension, hyperlipidemia, COPD, CHF, coronary artery disease, atrial fibrillation, and peripheral arterial disease. She previously had 3 stents placed in the left thigh in [place] [address] Chadwick. She states she was doing well up until approximately 3 to 4 days ago when she began having pain behind the left knee that radiated down to the foot. She began having some redness to the distal aspect of the foot and over the past 2 days, her great toe and second digit have started to turn a bluish-purple color. Her foot was cold and she was worried she may have lack of blood flow again to the limb. She presented the office of [facility] today. A pulse was unable to be found in her foot. Cardiology was consulted and requested that the patient be admitted. They want her started on a heparin drip and will take her to the Classification And Treatment Director this afternoon for possible stent placement. <Elba Vasquez 08/16/19 11:52> [facility] History I have reviewed the patient's past medical history: Yes <Elba Vasquez 08/16/19 11:52> Medical History: Reports:: Asthma, Atherosclerotic Heart Disease, Atrial Fibrillation, Congestive Heart Failure, Chronic Obstructive Pulmonary Disease (COPD), Coronary Artery Disease, Diabetes Mellitus Type 2, Hyperlipidemia, Hypertension, Peripheral Artery Disease, Renal Insufficiency Denies:: Cancer, Diabetes Mellitus Type 1, Internal Pacemaker, MRSA, Seizures <Elba Vasquez 08/16/19 11:52> *Have you ever received a pneumonia vaccine?: Yes <Elba Vasquez 08/16/19 11:52> *Have you received a flu vaccine this season?: Yes <Elba Vasquez 08/16/19 11:52> Other Medical History: Reports: Other (PAD) <Elba Vasquez 08/16/19 11:52> Other Surgeries: Yes: Angiogram, Sinus Surgery, Tubal Ligation, Other (PAD with multiple stents to bilateral legs). No: Pacemaker <Elba Vasquez 08/16/19 11:52> Amputation: No <Elba Vasquez 08/16/19 11:52> Fractures: No <Elba Vasquez 08/16/19 11:52> - *Social History Smoking Status: Never smoker <Elba Vasquez 08/16/19 11:52> Alcohol Intake: never <Elba Vasquez 08/16/19 11:52> Alcohol Intake Frequency:: other <Elba Vasquez 08/16/19 11:52> Substance Use Type: denies use <Elba Vasquez 08/16/19 11:52> *Occupational Status:: employed <Elba Vasquez 08/16/19 11:52> Housing: house <Elba Vasquez 08/16/19 11:52> Household Members: children <Elba Vasquez 08/16/19 11:52> *Travel in the last 8 weeks: None <Elba Vasquez 08/16/19 16:40> Family Hx:: Coronary Artery Disease, Diabetes, Heart Attack, Stroke <Elba Vasquez 08/16/19 11:52> Review of Systems - Constitutional Denies chills, Denies fever(s), Denies weakness <Elba Vasquez 08/16/19 11:52> - Eyes Denies blurry vision, Denies double vision <Elba Vasquez 08/16/19 11:52> - ENT Denies nasal congestion, Denies sore throat <Elba Vasquez 08/16/19 11:52> - *Cardiovascular Denies chest pain, Denies shortness of breath, Denies rapid, pounding, or irregular heartbeat <Elba Vasquez 08/16/19 11:52> - *Respiratory Reports cough, Reports wheezing, Denies shortness of breath <Elba Vasquez 08/16/19 11:52> - *Gastrointestinal Denies abdominal pain, Denies loose stools, Denies nausea, Denies vomiting <Elba Vasquez 08/16/19 11:52> - *Genitourinary Denies difficulty urinating, Denies painful urination <Elba Vasquez 08/16/19 11:52> - *Musculoskeletal Reports joint pain (left lower leg) <Elba Vasquez - 08/16/19 11:52> - Integumentary/Breasts Reports change in skin color (left foot erythema and cyanosis) <Elba Vasquez - 08/16/19 11:52> - *Neurologic Denies dizziness, Denies weakness <Elba Vasquez - 08/16/19 11:52> Meds Home Medications Medication Instructions Recorded Confirmed Type Ipratropium/Albuterol Sulfate 1 puff INHALATION Q4HP PRN 03/31/18 07/19/19 History [Albut-Ipratropium 2.5mg-0.5mg/3 ml] Pravastatin Sodium [Pravachol 40mg 40 mg PO HS 03/31/18 07/19/19 History Tablet] gabapentin 100 mg capsule 100 mg PO BID cap 07/13/18 08/16/19 History digoxin 125 mcg (0.125 mg) tablet 0.125 mg PO DAILY #90 tab 09/01/18 07/19/19 Rx apixaban 5 mg tablet 5 mg PO BID #60 tab 09/18/18 07/19/19 Rx metoprolol tartrate 50 mg tablet 50 mg PO BID #60 tab 10/27/18 08/16/19 Rx glimepiride 2 mg tablet 2 mg PO DAILY 11/23/18 08/16/19 History amiodarone 200 mg tablet 100 mg PO DAILY tab 03/30/19 07/19/19 History omeprazole 40 mg capsule,delayed 40 mg PO DAILY PRN 03/30/19 08/16/19 History release prednisone 5 mg tablet 5 mg PO DAILY tab 03/30/19 08/16/19 History clopidogrel 75 mg tablet 75 mg PO DAILY #30 tab 06/12/19 07/19/19 Rx furosemide 20 mg tablet 20 mg PO .ever other day #30 tab 08/13/19 08/16/19 Rx Furosemide [Furosemide 40MG tAB] 40 mg PO .every other day 08/16/19 08/16/19 History Losartan Potassium [Cozaar 50mg 50 mg PO DAILY 08/16/19 08/16/19 History Tablets] <Alexis Montanez - 08/16/19 17:13> Allergies Allergy/AdvReac Type Severity Reaction Status Date / Time codeine [CODEINE] Allergy Unknown Verified 07/19/19 11:03 <Alexis Montanez - 08/16/19 17:13> Exam Vital signs and Labs for Last 24 Hours: Temp Pulse Resp Pulse Ox 98.4 F 40 L 17 97 08/16/19 12:12 08/16/19 16:48 08/16/19 12:12 08/16/19 12:12 Laboratory Results - last 24 hr 08/16/19 11:58: APTT 29.7 08/16/19 11:58: WBC 11.4 H, RBC 4.62, Hgb 13.5, Hct 42.4, MCV 91.7, MCH 29.3, MCHC 31.9, RDW 13.1, Plt Count 355, MPV 8.0, Neut % (Auto) 63.8, Lymph % (Auto) 22.0, Murray % (Auto) 6.3, Eos % (Auto) 7.6, Baso % (Auto) 0.3, Neut # (Auto) 7.3, Lymph # (Auto) 2.5, Murray # (Auto) 0.7, Eos # (Auto) 0.9 H, Baso # (Auto) 0.0 08/16/19 11:58: Sodium 142, Potassium 3.5, Chloride 106, Carbon Dioxide 32, Anion Gap 7.5, BUN 25 H, Creatinine 1.19 H, Estimated Creat Clear 40, Estimated GFR 44 L, Est GFR ( Amer) 53 L, Glucose 136 H, Calcium 8.9, Total Bilirubin 0.3, AST 12 L, ALT 15, Alkaline Phosphatase 62, Total Protein 6.5, Albumin 3.3 L, Globulin 3.2, Albumin/Globulin Ratio 1.0 L, Triglycerides 100, Cholesterol 136 L, LDL Cholesterol 64, VLDL Cholesterol 20, HDL Cholesterol 52, Cholesterol/HDL Ratio 2.6 08/16/19 15:59: POC Glucose 87 <Alexis Montanez - 08/16/19 17:13> I & O for Last 24 hours: Intake & Output 08/13/19 08/14/19 08/15/19 08/16/19 23:59 23:59 23:59 23:59 Weight 143 lb <Alexis Montanez - 08/16/19 17:13> - Constitutional no acute distress <Elba Vasquez - 08/16/19 11:52> - *Routine HEENT Exam Head: Present: normocephalic <Elba Vasquez 08/16/19 11:52> Eye: Present: EOMI, PERRL <Elba Vasquez 08/16/19 11:52> ENT: Present: mucous membranes moist <Elba Vasquez 08/16/19 11:52> - *Routine Neck Exam Present: supple. Absent: lymphadenopathy <Elba Vasquez 08/16/19 11:52> - *Routine Respiratory Exam Present: CTA bilaterally <Elba Vasquez 08/16/19 11:52> - *Routine Cardiovascular Exam Present: RRR <Elba Vasquez 08/16/19 11:52> - *Routine Abdominal Exam Present: soft, normoactive bowel sounds. Absent: tenderness <Elba Vasquez 08/16/19 11:52> - *Routine Extremities Exam Present: cyanosis (left great toe and 2nd digit), edema (bilateral LE's), calf tenderness (left) <Elba Vasquez 08/16/19 11:52> Comments: erthema of the distal aspect of the left foot, cold to the touch, no pedal pulses palpable <Elba Vasquez 08/16/19 11:52> - *Routine Skin Exam Present: cyanosis (left great toe and 2nd digit), erythema (distal left foot) <Elba Vasquez 08/16/19 11:52> - *Routine Neurological Exam Present: alert, oriented X3 <Elba Vasquez 08/16/19 11:52> Assessment and Plan (1) Lower limb ischemia Current visit: Yes Status: Acute Category: Medical Code(s): I99.8 - Other disorder of circulatory system (2) CAD (coronary artery disease) Current visit: No Status: Chronic Qualifiers: Coronary Disease-Associated Artery/Lesion type: viejas artery [place] vs. transplanted heart: viejas heart Associated angina: without angina Qualified Code(s): I25.10 - Atherosclerotic heart disease of viejas coronary artery without angina pectoris Category: Medical Code(s): I25.10 - Atherosclerotic heart disease of viejas coronary artery without angina pectoris (3) COPD (chronic obstructive pulmonary disease) Current visit: No Status: Chronic Qualifiers: COPD type: unspecified COPD Qualified Code(s): J44.9 - Chronic obstructive pulmonary disease, unspecified Category: Medical Code(s): J44.9 - Chronic obstructive pulmonary disease, unspecified (4) Diabetes mellitus Current visit: No Status: Chronic Qualifiers: Diabetes mellitus type: type 2 Diabetes mellitus superintendent container terminal insulin use: without chcf use Diabetes mellitus complication status: without complication Qualified Code(s): E11.9 - Type 2 diabetes mellitus without complications Category: Medical Code(s): E11.9 - Type 2 diabetes mellitus without complications (5) HTN (hypertension) Current visit: No Status: Chronic Qualifiers: Hypertension type: essential hypertension Qualified Code(s): I10 - Essential (primary) hypertension Category: Medical Code(s): I10 - Essential (primary) hypertension (6) Hyperlipemia Current visit: No Status: Chronic Qualifiers: Hyperlipidemia type: mixed hyperlipidemia Qualified Code(s): E78.2 - Mixed hyperlipidemia Category: Medical Code(s): E78.5 - Hyperlipidemia, unspecified (7) PAD (peripheral artery disease) Current visit: No Status: Chronic Category: Medical Code(s): I73.9 - Peripheral vascular disease, unspecified (8) PAF (paroxysmal atrial fibrillation) Current visit: No Status: Chronic Category: Medical Code(s): I48.0 - Paroxysmal atrial fibrillation (9) Pulmonary HTN Current visit: No Status: Chronic Category: Medical Code(s): I27.20 - Pulmonary hypertension, unspecified <TarikAlexis - 08/16/19 17:13> (1) Lower limb ischemia Current visit: Yes Status: Acute Category: Medical Code(s): I99.8 - Other disorder of circulatory system (2) CAD (coronary artery disease) Current visit: No Status: Chronic Qualifiers: Coronary Disease-Associated Artery/Lesion type: viejas artery [place] vs. transplanted heart: viejas heart Associated angina: without angina Qualified Code(s): I25.10 - Atherosclerotic heart disease of viejas coronary artery without angina pectoris Category: Medical Code(s): I25.10 - Atherosclerotic heart disease of viejas coronary artery without angina pectoris (3) COPD (chronic obstructive pulmonary disease) Current visit: No Status: Chronic Qualifiers: COPD type: unspecified COPD Qualified Code(s): J44.9 - Chronic obstructive pulmonary disease, unspecified Category: Medical Code(s): J44.9 - Chronic obstructive pulmonary disease, unspecified (4) Diabetes mellitus Current visit: No Status: Chronic Qualifiers: Diabetes mellitus type: type 2 Diabetes mellitus chcf insulin use: without superintendent container terminal use Diabetes mellitus complication status: without compli cation Qualified Code(s): E11.9 - Type 2 diabetes mellitus without complications Category: Medical Code(s): E11.9 - Type 2 diabetes mellitus without complications (5) HTN (hypertension) Current visit: No Status: Chronic Qualifiers: Hypertension type: essential hypertension Qualified Code(s): I10 - Essential (primary) hypertension Category: Medical Code(s): I10 - Essential (primary) hypertension (6) Hyperlipemia Current visit: No Status: Chronic Qualifiers: Hyperlipidemia type: mixed hyperlipidemia Qualified Code(s): E78.2 - Mixed hyperlipidemia Category: Medical Code(s): E78.5 - Hyperlipidemia, unspecified (7) PAD (peripheral artery disease) Current visit: No Status: Chronic Category: Medical Code(s): I73.9 - Peripheral vascular disease, unspecified (8) PAF (paroxysmal atrial fibrillation) Current visit: No Status: Chronic Category: Medical Code(s): I48.0 - Paroxysmal atrial fibrillation (9) Pulmonary HTN Current visit: No Status: Chronic Category: Medical Code(s): I27.20 - Pulmonary hypertension, unspecified <Elba Vasquez - 08/16/19 16:34> - Assessment and plan all Dx Assessment and Plan for all problems:: Saw patient, agree with above note. <Alexis Montanez - 08/16/19 17:13> Patient will be admitted as per cardiology and started on a heparin drip. She will be taken to the Classification And Treatment Director this afternoon for possible stent placement in the leg. <Elba Vasquez - 08/16/19 16:40>
[2019-08-16 12:09] LABS: Basophils % 0.3 % (0.1-2.0); Eosinophils # 0.9 K/mm3 (0.0-0.4); Eosinophils % 7.6 % (0.1-12.0); Hematocrit 42.4 % (37.0-47.0); Hemoglobin 13.5 g/dL (12.2-16.2); Lymphocytes # 2.5 K/mm3 (0.7-4.5); Mean Corpuscular HGB Conc 31.9 g/dL (31.8-35.4); Mean Corpuscular Volume 91.7 fl (81-99); Monocytes # 0.7 K/mm3 (0.1-1.0); Monocytes % 6.3 % (1.7-9.3); Neutrophils # 7.3 K/mm3 (1.8-7.8); Neutrophils % 63.8 % (37.0-80.0); Platelet Count 355 K/mm3 (142-424); Red Blood Count 4.62 M/mm3 (4.20-5.40); Red Cell Distribution Width 13.1 % (11.5-17.5); White Blood Count 11.4 K/mm3 (4.8-10.8)
[2019-08-16 12:21] LABS: Albumin Level 3.3 gm/dL (3.4-5.0); Anion Gap 7.5 mEq/L (5-15); Bilirubin,Total 0.3 mg/dL (0.2-1.0); Calcium 8.9 mg/dL (8.5-10.1); Chol/HDL Ratio 2.6 (1-3.5); Globulin 3.2 gm/dl (1.3-3.2); Total Protein,Serum 6.5 gm/dL (6.4-8.2)
--- NOTE | 2019-08-16 12:37 | Consult Report ---
History of Present Illness Consult date: 08/16/19 Requesting physician: Alexis Montanez Chief complaint: LLE ischemic changes Additional Medical History:: 1. Coronary artery disease A. Drug-eluting stent placement to LAD, 05/24/18 B. Shortness of breath with Brilinta, resolved with switching to Plavix 2. New onset atrial fibrillation, 05/2018 A. Amiodarone therapy started 06/02/18 B. TSH normal 03/2018 3. Diabetes mellitus, type II 4. Hypertension 5. Hyperlipidemia 6. Mild chronic kidney disease, stage II A. GFR 44, creatinine 1.19 on 07/2019 7. COPD/asthma 8. History of cardiomyopathy A. Echocardiogram, 04/2018, CONCLUSION: 1. Mildly enlarged left atrium, normal left ventricular size, moderate concentric left ventricular hypertrophy, reduced left ventricular systolic function, visually estimated ejection fraction 30%, left ventricle is globally hypokinetic, there is abnormal septal motion. 2. Moderate mitral and mild tricuspid regurgitation, calculated right ventricular systolic pressure is 54 mmHg consistent with moderate pulmonary hypertension, grade 1 diastolic dysfunction seen with tissue Doppler evidence of raised left atrial pressure. 3. No significant pericardial effusion noted. B. Right and left heart cath, 05/2018, ANGIOGRAPHIC RESULTS: 1. The left main artery normal 2. The left anterior descending artery has proximal normal segment followed by a mid vessel angiographically indeterminate stenosis between 40 and 70%. The distal vessel is highly tortuous 3. The circumflex artery is dominant and large caliber vessel and angiographically normal 4. The right coronary artery nondominant and normal 5. The GONZALES ventriculogram reveals appears preserved at 50% 6. The left ventricular end-diastolic pressure 10 HEMODYNAMICS: Pulmonary artery occlusion pressure is 8 mm Hg. Pulmonary arterial pressure is 12 mm Hg. Right atrial pressure is 35/20 mm Hg. SATURATIONS: PA is 83 %. RA is 85 %. IMPRESSION: 1. Hemodynamically severe mid LAD disease 2. Preserved ejection fraction 3. Normal left ventricular end-diastolic pressure 4. Successful stenting of the mid LAD hemodynamic the severe disease reduced to 0% with 1 drug-eluting stent 5. Mild pulmonary hypertension 9. PAD with LLE ischemic foot, 02/2019 A. LE runoff, 02/2019, 1. Patent stent throughout the right superficial femoral artery with moderate in-stent restenosis as described above with single vessel runoff to the right foot via the anterior tibialis artery 2. Severe diffuse occlusion stenosis of the left superficial femoral artery and left popliteal artery with single vessel runoff to the left foot via the anterior tibialis artery 3. Attempted angioplasty of the left superficial femoral artery and left popliteal artery which was unsuccessful Ramila Cole, 03/2019 : 1. Successful reconstruction of the left superficial femoral artery and left popliteal artery 100% occlusion with limb threatening ischemia reduced to 0% with 3 self-expanding stents in a contiguous overlapping manner. 2. Triple therapy with ASA, Plavix and Xarelto for one month then stop either ASA or plavix. History of present illness: 79-year-old white female presented to Dr. Murdock's office today for evaluation of discomfort in her left foot with redness of her first and second toe. Patient relates intervention in her left leg in March of this year with relief of symptoms of discomfort and ischemic changes for about 4 to 6 weeks. Since then she has experienced some discomfort in the left lower extremity but the redness of the first and second toes started only 2 days ago. Patient was subsequently admitted with cardiology consultation. Patient denies any chest pain, pressure or tightness. She denies missing any of her medications. She does not smoke. She is a diabetic. The left foot is cool compared with the right. Left dorsalis pedis pulse is very faint. [facility] History Medical History: Reports:: Asthma, Atherosclerotic Heart Disease, Atrial Fibrillation, Congestive Heart Failure, Chronic Obstructive Pulmonary Disease (COPD), Coronary Artery Disease, Diabetes Mellitus Type 2, Hyperlipidemia, Hypertension, Peripheral Artery Disease, Renal Insufficiency Denies:: Cancer, Diabetes Mellitus Type 1, Internal Pacemaker, MRSA, Seizures *Have you ever received a pneumonia vaccine?: Yes *Have you received a flu vaccine this season?: Yes Other Medical History: Reports: Other (PAD) Other Surgeries: Yes: Angiogram, Sinus Surgery, Tubal Ligation, Other (PAD with multiple stents to bilateral legs). No: Pacemaker Amputation: No Fractures: No - *Social History Smoking Status: Never smoker Alcohol Intake: never Alcohol Intake Frequency:: other Substance Use Type: denies use *Occupational Status:: employed Housing: house Household Members: children *Travel in the last 8 weeks: Inside the [facility] Family Hx:: Coronary Artery Disease, Diabetes, Heart Attack, Stroke Meds Home Medications Medication Instructions Recorded Confirmed Type Ipratropium/Albuterol Sulfate 1 puff INHALATION Q4HP PRN 03/31/18 07/19/19 History [Albut-Ipratropium 2.5mg-0.5mg/3 ml] Pravastatin Sodium [Pravachol 40mg 40 mg PO HS 03/31/18 07/19/19 History Tablet] furosemide 40 mg tablet 40 mg PO .every other day #30 tab 06/08/18 07/19/19 Rx gabapentin 100 mg capsule 100 mg PO BID cap 07/13/18 07/19/19 History digoxin 125 mcg (0.125 mg) tablet 0.125 mg PO DAILY #90 tab 09/01/18 07/19/19 Rx apixaban 5 mg tablet 5 mg PO BID #60 tab 09/18/18 07/19/19 Rx metoprolol tartrate 50 mg tablet 50 mg PO BID #60 tab 10/27/18 07/19/19 Rx glimepiride 2 mg tablet 2 mg PO DAILY 11/23/18 07/19/19 History amiodarone 200 mg tablet 100 mg PO DAILY tab 03/30/19 07/19/19 History losartan 50 mg tablet 50 mg PO DAILY #30 tab 03/30/19 07/19/19 Rx omeprazole 40 mg capsule,delayed 40 mg PO DAILY PRN 03/30/19 07/19/19 History release prednisone 5 mg tablet 5 mg PO DAILY tab 03/30/19 07/19/19 History clopidogrel 75 mg tablet 75 mg PO DAILY #30 tab 06/12/19 07/19/19 Rx furosemide 20 mg tablet 20 mg PO .ever other day #30 tab 08/13/19 Rx Allergies Allergy/AdvReac Type Severity Reaction Status Date / Time codeine [CODEINE] Allergy Unknown Verified 07/19/19 11:03 Review of Systems - *Cardiovascular Denies chest pain, Denies shortness of breath with activity - *Respiratory Denies cough, Denies shortness of breath with activity - *Gastrointestinal Denies nausea, Denies vomiting - *Genitourinary Denies blood in urine - *Musculoskeletal Reports joint pain - *Neurologic Denies tingling, Denies dizziness, Denies weakness Exam Vital signs and Labs for Last 24 Hours: Temp Resp Pulse Ox 98.4 F 17 97 08/16/19 12:12 08/16/19 12:12 08/16/19 12:12 Laboratory Results - last 24 hr 08/16/19 11:58: APTT 29.7 08/16/19 11:58: WBC 11.4 H, RBC 4.62, Hgb 13.5, Hct 42.4, MCV 91.7, MCH 29.3, MCHC 31.9, RDW 13.1, Plt Count 355, MPV 8.0, Neut % (Auto) 63.8, Lymph % (Auto) 22.0, [place] % (Auto) 6.3, Eos % (Auto) 7.6, Baso % (Auto) 0.3, Neut # (Auto) 7.3, Lymph # (Auto) 2.5, [place] # (Auto) 0.7, Eos # (Auto) 0.9 H, Baso # (Auto) 0.0 08/16/19 11:58: Sodium 142, Potassium 3.5, Chloride 106, Carbon Dioxide 32, Anion Gap 7.5, BUN 25 H, Creatinine 1.19 H, Estimated Creat Clear 40, Estimated GFR 44 L, Est GFR ( Amer) 53 L, Glucose 136 H, Calcium 8.9, Total Bilirubin 0.3, AST 12 L, ALT 15, Alkaline Phosphatase 62, Total Protein 6.5, Albumin 3.3 L, Globulin 3.2, Albumin/Globulin Ratio 1.0 L, Triglycerides 100, Cholesterol 136 L, LDL Cholesterol 64, VLDL Cholesterol 20, HDL Cholesterol 52, Cholesterol/HDL Ratio 2.6 I & O for Last 24 hours: Intake & Output 08/14/19 08/15/19 08/16/19 08/17/19 11:59 11:59 11:59 11:59 Weight 143 lb - *Routine HEENT Exam Head: Present: normocephalic Eye: Present: EOMI, PERRL ENT: Present: mucous membranes moist - *Routine Neck Exam Present: supple. Absent: JVD, carotid bruit - *Routine Respiratory Exam Present: CTA bilaterally. Absent: accessory muscle use, rales, rhonchi, wheezes - *Routine Cardiovascular Exam Present: RRR. Absent: murmur, gallop, rubs - *Routine Abdominal Exam Present: soft. Absent: tenderness, distended, guarding - *Routine Extremities Exam Present: edema, tenderness. Absent: normal capillary refill, calf tenderness Comments: Left big toe and second toe with purplish discoloration at the tip. At the end of the big toe is a small healing ulceration with no drainage. - *Routine Neurological Exam Present: alert, oriented X3, moving all extremities Assessment and Plan (1) Lower limb ischemia Current visit: Yes Status: Acute Category: Medical Code(s): I99.8 - Other disorder of circulatory system (2) CAD (coronary artery disease) Current visit: No Status: Chronic Qualifiers: Coronary Disease-Associated Artery/Lesion type: [place] artery [place] vs. transplanted heart: [place] heart Associated angina: without angina Qualified Code(s): I25.10 - Atherosclerotic heart disease of [place] coronary artery without angina pectoris Category: Medical Code(s): I25.10 - Atherosclerotic heart disease of [place] coronary artery without angina pectoris (3) COPD (chronic obstructive pulmonary disease) Current visit: No Status: Chronic Qualifiers: COPD type: unspecified COPD Qualified Code(s): J44.9 - Chronic obstructive pulmonary disease, unspecified Category: Medical Code(s): J44.9 - Chronic obstructive pulmonary disease, unspecified (4) Diabetes mellitus Current visit: No Status: Chronic Qualifiers: Diabetes mellitus type: type 2 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 insulin use: without intermodal dispatcher use Diabetes mellitus complication status: without complication Qualified Code(s): E11.9 - Type 2 diabetes mellitus without complications Category: Medical Code(s): E11.9 - Type 2 diabetes mellitus without complic ations (5) HTN (hypertension) Current visit: No Status: Chronic Qualifiers: Hypertension type: essential hypertension Qualified Code(s): I10 - Essential (primary) hypertension Category: Medical Code(s): I10 - Essential (primary) hypertension (6) Hyperlipemia Current visit: No Status: Chronic Qualifiers: Hyperlipidemia type: mixed hyperlipidemia Qualified Code(s): E78.2 - Mixed hyperlipidemia Category: Medical Code(s): E78.5 - Hyperlipidemia, unspecified (7) PAD (peripheral artery disease) Current visit: No Status: Chronic Category: Medical Code(s): I73.9 - Peripheral vascular disease, unspecified (8) PAF (paroxysmal atrial fibrillation) Current visit: No Status: Chronic Category: Medical Code(s): I48.0 - Paroxysmal atrial fibrillation (9) Pulmonary HTN Current visit: No Status: Chronic Category: Medical Code(s): I27.20 - Pulmonary hypertension, unspecified - Assessment and plan all Dx Assessment and Plan for all problems:: 1. Agree with admission and institution of IV heparin therapy. 2. We will plan to take the patient back to the [facility] for left lower extremity angiogram and possible intervention. 3. History of atrial fibrillation, controlled in sinus rhythm on amiodarone therapy and Eliquis anticoagulation therapy. 4. History of coronary artery disease, on Plavix therapy. Clinically stable at this time. 5. Diabetes mellitus type 2, treatment per per Dr. Montanez 6. Hyperlipidemia, goal of LDL less than 55. On statin therapy. Current LDL 68. 7. Further recommendations to follow pending above results.
[2019-08-17 06:12] LABS: Anion Gap 5.1 mEq/L (5-15); Calcium 8.3 mg/dL (8.5-10.1)
[2019-08-17 06:22] LABS: Basophils % 0.4 % (0.1-2.0); Eosinophils # 0.6 K/mm3 (0.0-0.4); Eosinophils % 5.6 % (0.1-12.0); Hematocrit 37.5 % (37.0-47.0); Lymphocytes # 2.6 K/mm3 (0.7-4.5); Mean Corpuscular HGB Conc 31.8 g/dL (31.8-35.4); Mean Corpuscular Volume 94.5 fl (81-99); Mean Platelet Volume 7.7 fl (7.4-10.4); Monocytes % 8.7 % (1.7-9.3); Neutrophils % 62.3 % (37.0-80.0); Platelet Count 304 K/mm3 (142-424); Red Blood Count 3.97 M/mm3 (4.20-5.40); Red Cell Distribution Width 13.2 % (11.5-17.5); White Blood Count 11.2 K/mm3 (4.8-10.8)
--- NOTE | 2019-08-17 07:20 | Pharmacy Consult Notes ---
[facility] Pharmacy VTE Monitoring - Patient Demographics Admission date: 08/16/19 Report Date: 08/17/19 Time: 07:19 Allergies/Adverse Reactions: Patient Allergies codeine [CODEINE] Allergy (Unknown, Verified 07/19/19 11:03) Height: 1.5 m Weight: 67.273 kg Patient Problems: Current Active Problems Lower limb ischemia (Acute) - VTE Risk Labs: VTE Related Lab Results Hgb 12.0 g/dL (12.2-16.2) L D 08/17/19 05:45 Hct 37.5 % (37.0-47.0) 08/17/19 05:45 Plt Count 304 K/mm3 (142-424) 08/17/19 05:45 APTT 29.7 seconds (23.6-34.0) 08/16/19 11:58 BUN 21 mg/dL (7-18) H 08/17/19 05:45 Creatinine 1.06 mg/dL (0.55-1.02) H 08/17/19 05:45 Estimated Creat Clear 46 mL/min (50-200) 08/17/19 05:45 Was VTE Risk Assessment Performed: Yes VTE Risk Level: Moderate Risk Clinical Trial Participant: No - Prophylaxis VTE Prophylaxis Ordered?: Yes Types of VTE Prophylaxis: TEDS Knee High
--- NOTE | 2019-08-17 08:18 | Progress Note ---
<Elba Vasquez - Last Filed: 08/17/19 08:13> Internal Medicine - PN: Subj *Date: 08/17/19 *Time: 08:13 Interval history: Patient states she is feeling well this morning. She states she can feel a "heartbeat" in her left foot and it has been hurting, but pain medicine is controlling the pain. She slept well last night with pain medication. She is eating her breakfast this morning. Exam Vital signs and Labs for Last 24 Hours: Temp Pulse Resp BP Pulse Ox 99.1 F 50 L 18 112/67 92 L 08/17/19 04:00 08/17/19 04:00 08/17/19 08:02 08/17/19 04:00 08/17/19 04:00 Laboratory Results - last 24 hr 08/16/19 11:58: APTT 29.7 08/16/19 11:58: WBC 11.4 H, RBC 4.62, Hgb 13.5, Hct 42.4, MCV 91.7, MCH 29.3, MCHC 31.9, RDW 13.1, Plt Count 355, MPV 8.0, Neut % (Auto) 63.8, Lymph % (Auto) 22.0, [place] % (Auto) 6.3, Eos % (Auto) 7.6, Baso % (Auto) 0.3, Neut # (Auto) 7.3, Lymph # (Auto) 2.5, [place] # (Auto) 0.7, Eos # (Auto) 0.9 H, Baso # (Auto) 0.0 08/16/19 11:58: Sodium 142, Potassium 3.5, Chloride 106, Carbon Dioxide 32, Anion Gap 7.5, BUN 25 H, Creatinine 1.19 H, Estimated Creat Clear 40, Estimated GFR 44 L, Est GFR ( Amer) 53 L, Glucose 136 H, Calcium 8.9, Total Bilirubin 0.3, AST 12 L, ALT 15, Alkaline Phosphatase 62, Total Protein 6.5, Albumin 3.3 L, Globulin 3.2, Albumin/Globulin Ratio 1.0 L, Triglycerides 100, Cholesterol 136 L, LDL Cholesterol 64, VLDL Cholesterol 20, HDL Cholesterol 52, Cholesterol/HDL Ratio 2.6 08/16/19 15:36: POC Glucose 45 L* 08/16/19 15:59: POC Glucose 87 10/31/19 20:10: POC Glucose 175 H 08/17/19 05:39: POC Glucose 51 L 08/17/19 05:45: WBC 11.2 H, RBC 3.97 L, Hgb 12.0 L D, Hct 37.5, MCV 94.5, MCH 30.0, MCHC 31.8, RDW 13.2, Plt Count 304, MPV 7.7, Neut % (Auto) 62.3, Lymph % (Auto) 23.0, [place] % (Auto) 8.7, Eos % (Auto) 5.6, Baso % (Auto) 0.4, Neut # (Auto) 7.0, Lymph # (Auto) 2.6, [place] # (Auto) 1.0, Eos # (Auto) 0.6 H, Baso # (Auto) 0.0 08/17/19 05:45: Sodium 141, Potassium 4.1, Chloride 107, Carbon Dioxide 33 H, Anion Gap 5.1, BUN 21 H, Creatinine 1.06 H, Estimated Creat Clear 46, Estimated GFR 50 L, Est GFR ( Amer) 61, Glucose 53 L D, Calcium 8.3 L 08/17/19 06:19: POC Glucose 78 I & O for Last 24 hours: Intake & Output 08/14/19 08/15/19 08/16/19 08/17/19 11:59 11:59 11:59 11:59 Intake Total 120 / 120 Balance 120 / 120 Weight 143 lb 148 lb 5 oz Radiology Reports for the Last 24 Hours: IMPRESSION Acute on chronic peripheral artery disease with acute limb threatening ischemia to the left foot giving a cold pulseless early gangrenous great toe. Successful drug-coated balloon angioplasty of the subtotally occluded left superficial femoral artery and left popliteal artery restoring single-vessel flow to the left foot PLAN 1. Dual antiplatelet therapy for 1 month then followed by Xarelto 2.5 twice daily 2. LDL less than 55 3. Aggressive risk factor modification 4. Rehabilitation - Constitutional no acute distress - *Routine Respiratory Exam Present: wheezes (faint). Absent: rales - *Routine Cardiovascular Exam Present: RRR - *Routine Abdominal Exam Present: soft, normoactive bowel sounds. Absent: tenderness - *Routine Extremities Exam Present: edema (bilateral LE's). Absent: cyanosis, clubbing - *Routine Skin Exam Present: erythema (LLE still with some erythema, but improved from yesterday, great toe and 2nd digit still purple in color, the foot is now warm), warm. Absent: rash - *Routine Neurological Exam Present: alert, oriented X3 Assessment and Plan (1) Lower limb ischemia Current visit: Yes Status: Acute Category: Medical Code(s): I99.8 - Other disorder of circulatory system (2) CAD (coronary artery disease) Current visit: No Status: Chronic Qualifiers: Coronary Disease-Associated Artery/Lesion type: [place] artery [place] vs. transplanted heart: [place] heart Associated angina: without angina Qualified Code(s): I25.10 - Atherosclerotic heart disease of [place] coronary artery without angina pectoris Category: Medical Code(s): I25.10 - Atherosclerotic heart disease of [place] coronary artery without angina pectoris (3) COPD (chronic obstructive pulmonary disease) Current visit: No Status: Chronic Qualifiers: COPD type: unspecified COPD Qualified Code(s): J44.9 - Chronic obstructive pulmonary disease, unspecified Category: Medical Code(s): J44.9 - Chronic obstructive pulmonary disease, unspecified (4) Diabetes mellitus Current visit: No Status: Chronic Qualifiers: Diabetes mellitus type: type 2 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: without snf use Diabetes mellitus complication status: without complication Qualified Code(s): E11.9 - Type 2 diabetes mellitus without complications Category: Medical Code(s): E11.9 - Type 2 diabetes mellitus without complications (5) HTN (hypertension) Current visit: No Status: Chronic Qualifiers: Hypertension type: essential hypertension Qualified Code(s): I10 - Essential (primary) hypertension Category: Medical Code(s): I10 - Essential (primary) hypertension (6) Hyperlipemia Current visit: No Status: Chronic Qualifiers: Hyperlipidemia type: mixed hyperlipidemia Qualified Code(s): E78.2 - Mixed hyperlipidemia Category: Medical Code(s): E78.5 - Hyperlipidemia, unspecified (7) PAD (peripheral artery disease) Current visit: No Status: Chronic Category: Medical Code(s): I73.9 - Peripheral vascular disease, unspecified (8) PAF (paroxysmal atrial fibrillation) Current visit: No Status: Chronic Category: Medical Code(s): I48.0 - Paroxysmal atrial fibrillation (9) Pulmonary HTN Current visit: No Status: Chronic Category: Medical Code(s): I27.20 - Pulmonary hypertension, unspecified (10) S/P peripheral artery angioplasty with stent placement Current visit: Yes Status: Acute Category: Surgical Code(s): Z95.820 - Peripheral vascular angioplasty status with implants and grafts - Assessment and plan all Dx Assessment and Plan for all problems:: Patient now has blood flow to the left foot after stenting procedure. Cardiology to follow. <Alexis Montanez - Last Filed: 08/17/19 08:39> Internal Medicine - PN: Subj *Date: 08/17/19 *Time: 08:35 Exam Vital signs and Labs for Last 24 Hours: Temp Pulse Resp BP Pulse Ox 99.4 F 59 L 18 138/45 L 95 08/17/19 08:00 08/17/19 08:00 08/17/19 08:02 08/17/19 08:00 08/17/19 08:00 Laboratory Results - last 24 hr 08/16/19 11:58: APTT 29.7 08/16/19 11:58: WBC 11.4 H, RBC 4.62, Hgb 13.5, Hct 42.4, MCV 91.7, MCH 29.3, MCHC 31.9, RDW 13.1, Plt Count 355, MPV 8.0, Neut % (Auto) 63.8, Lymph % (Auto) 22.0, [place] % (Auto) 6.3, Eos % (Auto) 7.6, Baso % (Auto) 0.3, Neut # (Auto) 7.3, Lymph # (Auto) 2.5, [place] # (Auto) 0.7, Eos # (Auto) 0.9 H, Baso # (Auto) 0.0 08/16/19 11:58: Sodium 142, Potassium 3.5, Chloride 106, Carbon Dioxide 32, Anion Gap 7.5, BUN 25 H, Creatinine 1.19 H, Estimated Creat Clear 40, Estimated GFR 44 L, Est GFR ( Amer) 53 L, Glucose 136 H, Calcium 8.9, Total Bilirubin 0.3, AST 12 L, ALT 15, Alkaline Phosphatase 62, Total Protein 6.5, Albumin 3.3 L, Globulin 3.2, Albumin/Globulin Ratio 1.0 L, Triglycerides 100, Cholesterol 136 L, LDL Cholesterol 64, VLDL Cholesterol 20, HDL Cholesterol 52, Cholesterol/HDL Ratio 2.6 08/16/19 15:36: POC Glucose 45 L* 08/16/19 15:59: POC Glucose 87 08/16/19 20:10: POC Glucose 175 H 08/17/19 05:39: POC Glucose 51 L 08/17/19 05:45: WBC 11.2 H, RBC 3.97 L, Hgb 12.0 L D, Hct 37.5, MCV 94.5, MCH 30.0, MCHC 31.8, RDW 13.2, Plt Count 304, MPV 7.7, Neut % (Auto) 62.3, Lymph % (Auto) 23.0, [place] % (Auto) 8.7, Eos % (Auto) 5.6, Baso % (Auto) 0.4, Neut # (Auto) 7.0, Lymph # (Auto) 2.6, [place] # (Auto) 1.0, Eos # (Auto) 0.6 H, Baso # (Auto) 0.0 08/17/19 05:45: Sodium 141, Potassium 4.1, Chloride 107, Carbon Dioxide 33 H, Anion Gap 5.1, BUN 21 H, Creatinine 1.06 H, Estimated Creat Clear 46, Estimated GFR 50 L, Est GFR ( Amer) 61, Glucose 53 L D, Calcium 8.3 L 08/17/19 06:19: POC Glucose 78 I & O for Last 24 hours: Intake & Output 08/14/19 08/15/19 08/16/19 08/17/19 23:59 23:59 23:59 23:59 Intake Total 120 / 120 360 / 360 Balance 120 / 120 360 / 360 Weight 143 lb 148 lb 5 oz Assessment and Plan (1) Lower limb ischemia Current visit: Yes Status: Acute Category: Medical Code(s): I99.8 - Other disorder of circulatory system (2) CAD (coronary artery disease) Current visit: No Status: Chronic Qualifiers: Coronary Disease-Associated Artery/Lesion type: [place] artery [place] vs. transplanted heart: [place] heart Associated angina: without angina Qualified Code(s): I25.10 - Atherosclerotic heart disease of [place] coronary artery without angina pectoris Category: Medical Code(s): I25.10 - Atherosclerotic heart disease of [place] coronary artery without angina pectoris (3) COPD (chronic obstructive pulmonary disease) Current visit: No Status: Chronic Qualifiers: COPD type: unspecified COPD Qualified Code(s): J44.9 - Chronic obstructive pulmonary disease, unspecified Category: Medical Code(s): J44.9 - Chronic obstructive pulmonary disease, unspecified (4) Diabetes mellitus Current visit: No Status: Chronic Qualifiers: Diabetes mellitus type: type 2 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: without snf use Diabetes mellitus complication status: without complication Qualified Code(s): E11.9 - Type 2 diabetes mellitus without complications Category: Medical Code(s): E11.9 - Type 2 diabetes mellitus without complications (5) HTN (hypertension) Current visit: No Status: Chronic Qualifiers: Hypertension type: essential hypertension Qualified Code(s): I10 - Essential (primary) hypertension Category: Medical Code(s): I10 - Essential (primary) hypertension (6) Hyperlipemia Current visit: No Status: Chronic Qualifiers: Hyperlipidemia type: mixed hyperlipidemia Qualified Code(s): E78.2 - Mixed hyperlipidemia Category: Medical Code(s): E78.5 - Hyperlipidemia, unspecified (7) PAD (peripheral artery disease) Current visit: No Status: Chronic Category: Medical Code(s): I73.9 - Peripheral vascular disease, unspecified (8) PAF (paroxysmal atrial fibrillation) Current visit: No Status: Chronic Category: Medical Code(s): I48.0 - Paroxysmal atrial fibrillation (9) Pulmonary HTN Current visit: No Status: Chronic Category: Medical Code(s): I27.20 - Pulmonary hypertension, unspecified (10) S/P peripheral artery angioplasty with stent placement Current visit: Yes Status: Acute Category: Surgical Code(s): Z95.820 - Peripheral vascular angioplasty status with implants and grafts - Assessment and plan all Dx Assessment and Plan for all problems:: Saw patient, agree with above note. Will ask Dr. King to see patient today as she still has some toe discoloration.
--- NOTE | 2019-08-17 09:47 | Consult Report ---
*Admission Date: 08/16/19 *Reason for consult:: L1-2nd toe PAD *History of present illness: Ms. Zamora is a 79-year-old female with a history of diabetes, hypertension, hyperlipidemia, COPD, CHF, coronary artery disease, atrial fibrillation, and peripheral arterial disease. She previously had 3 stents placed in the left thigh in [place] [address] Chadwick. She states she was doing well up until approximately 3 to 4 days ago when she began having pain behind the left knee that radiated down to the foot. She began having some redness to the distal aspect of the foot and over the past 2 days, her great toe and second digit have started to turn a bluish-purple color. Her foot was cold and she was worried she may have lack of blood flow again to the limb. She presented the office of [facility] yesterday. A pulse was unable to be found in her foot. Cardiology was consulted and requested that the patient be admitted. They want her started on a heparin drip and was take her to the [facility] for stent placement. Patient is resting comfortably in bed, pain controlled with meds. Reports tingling, burning to feet. Mild pain to left 1-2nd toes. Denies routine DFC. She is still working and "basically lives alone". Review of Systems - Review of Systems Review of systems:: pertinent systems reviewed and negative unless documented below - Constitutional Denies chills - Eyes Denies blind spots - ENT Denies abnormal hearing - *Cardiovascular Denies chest pain, Denies excessive sweating - *Respiratory Denies shortness of breath - *Gastrointestinal Denies abdominal pain - *Genitourinary Denies abnormal periods - *Musculoskeletal Reports joint swelling, Reports radiating pain into limb - Integumentary/Breasts Reports hair loss, Reports nail changes, Reports dry skin - *Neurologic Reports tingling/numbness/burning sensations, Denies tingling, Denies dizziness, Denies weakness - Psychiatric Denies abnormal sleep pattern - Endocrine Reports cold intolerance - Hematologic/Lymphatic Reports easy bruising [facility] History I have reviewed the patient's past medical history: Yes Medical History: Reports:: Asthma, Atherosclerotic Heart Disease, Atrial Fibrillation, Congestive Heart Failure, Chronic Obstructive Pulmonary Disease (COPD), Coronary Artery Disease, Diabetes Mellitus Type 2, Hyperlipidemia, Hypertension, Peripheral Artery Disease, Renal Insufficiency Denies:: Cancer, Diabetes Mellitus Type 1, Internal Pacemaker, MRSA, Seizures *Have you ever received a pneumonia vaccine?: Yes *Have you received a flu vaccine this season?: No Other Medical History: Reports: Other (PAD) Other Surgeries: Yes: Angiogram, Sinus Surgery, Tubal Ligation, Other (PAD with multiple stents to bilateral legs). No: Pacemaker Amputation: No Fractures: No - *Social History Educational Level: Completed High School Smoking Status: Never smoker Alcohol Intake: never Alcohol Intake Frequency:: other Substance Use Type: denies use *Occupational Status:: employed Housing: house Household Members: children *Travel in the last 8 weeks: None Family Hx:: Coronary Artery Disease, Diabetes, Heart Attack, Stroke Meds Home Medications Medication Instructions Recorded Confirmed Type Pravastatin Sodium [Pravachol 40mg 40 mg PO HS 03/31/18 08/17/19 History Tablet] gabapentin 100 mg capsule 100 mg PO TID cap 07/13/18 08/17/19 History digoxin 125 mcg (0.125 mg) tablet 0.125 mg PO DAILY #90 tab 09/01/18 08/17/19 Rx apixaban 5 mg tablet 5 mg PO BID #60 tab 09/18/18 08/17/19 Rx metoprolol tartrate 50 mg tablet 50 mg PO BID #60 tab 10/27/18 08/17/19 Rx glimepiride 2 mg tablet 2 mg PO DAILY 11/23/18 08/17/19 History amiodarone 200 mg tablet 200 mg PO BID tab 03/30/19 08/17/19 History omeprazole 40 mg capsule,delayed 40 mg PO DAILY PRN 03/30/19 08/17/19 History release clopidogrel 75 mg tablet 75 mg PO DAILY #30 tab 06/12/19 08/17/19 Rx Budesonide/Formoterol Fumarate 2 puffs IH BID 08/16/19 08/17/19 History [Symbicort 160-4.5 Mcg Inhaler] Furosemide [Furosemide 40MG tAB] 40 mg PO Q48H 08/16/19 08/17/19 History Losartan Potassium [Cozaar 50mg 50 mg PO DAILY 08/16/19 08/17/19 History Tablets] Furosemide [Furosemide 20mg Tab] 20 mg PO Q48H 08/17/19 08/17/19 History Allergies Allergy/AdvReac Type Severity Reaction Status Date / Time codeine [CODEINE] Allergy Unknown Verified 07/19/19 11:03 Exam Vital signs and Labs for Last 24 Hours: Temp Pulse Resp BP Pulse Ox 99.4 F 59 L 18 138/45 L 95 08/17/19 08:00 08/17/19 08:00 08/17/19 08:02 08/17/19 08:00 08/17/19 08:00 Laboratory Results - last 24 hr 08/16/19 11:58: APTT 29.7 08/16/19 11:58: WBC 11.4 H, RBC 4.62, Hgb 13.5, Hct 42.4, MCV 91.7, MCH 29.3, MCHC 31.9, RDW 13.1, Plt Count 355, MPV 8.0, Neut % (Auto) 63.8, Lymph % (Auto) 22.0, [place] % (Auto) 6.3, Eos % (Auto) 7.6, Baso % (Auto) 0.3, Neut # (Auto) 7.3, Lymph # (Auto) 2.5, [place] # (Auto) 0.7, Eos # (Auto) 0.9 H, Baso # (Auto) 0.0 08/16/19 11:58: Sodium 142, Potassium 3.5, Chloride 106, Carbon Dioxide 32, Anion Gap 7.5, BUN 25 H, Creatinine 1.19 H, Estimated Creat Clear 40, Estimated GFR 44 L, Est GFR ( Amer) 53 L, Glucose 136 H, Calcium 8.9, Total Bilirubin 0.3, AST 12 L, ALT 15, Alkaline Phosphatase 62, Total Protein 6.5, Albumin 3.3 L, Globulin 3.2, Albumin/Globulin Ratio 1.0 L, Triglycerides 100, Cholesterol 136 L, LDL Cholesterol 64, VLDL Cholesterol 20, HDL Cholesterol 52, Cholesterol/HDL Ratio 2.6 08/16/19 15:36: POC Glucose 45 L* 08/16/19 15:59: POC Glucose 87 08/16/19 20:10: POC Glucose 175 H 08/17/19 05:39: POC Glucose 51 L 08/17/19 05:45: WBC 11.2 H, RBC 3.97 L, Hgb 12.0 L D, Hct 37.5, MCV 94.5, MCH 30.0, MCHC 31.8, RDW 13.2, Plt Count 304, MPV 7.7, Neut % (Auto) 62.3, Lymph % (Auto) 23.0, [place] % (Auto) 8.7, Eos % (Auto) 5.6, Baso % (Auto) 0.4, Neut # (Auto) 7.0, Lymph # (Auto) 2.6, [place] # (Auto) 1.0, Eos # (Auto) 0.6 H, Baso # (Auto) 0.0 08/17/19 05:45: Sodium 141, Potassium 4.1, Chloride 107, Carbon Dioxide 33 H, Anion Gap 5.1, BUN 21 H, Creatinine 1.06 H, Estimated Creat Clear 46, Estimated GFR 50 L, Est GFR ( Amer) 61, Glucose 53 L D, Calcium 8.3 L 08/17/19 06:19: POC Glucose 78 I & O for Last 24 hours: Intake & Output 08/14/19 08/15/19 08/16/19 08/17/19 11:59 11:59 11:59 11:59 Intake Total 480 / 480 Balance 480 / 480 Weight 143 lb 148 lb 5 oz - Constitutional no acute distress - *Routine HEENT Exam Head: Present: normocephalic Eye: Present: EOMI - *Routine Neck Exam Present: supple - *Routine Respiratory Exam Present: CTA bilaterally - *Routine Cardiovascular Exam Present: RRR - *Routine Abdominal Exam Present: soft. Absent: guarding - *Routine Rectal Exam Patient deferred: visual exam - *Routine Exam Patient deferred: external exam - *Routine Extremities Exam Present: edema (LLE), pallor, extremity cold to touch. Absent: pulses intact, normal capillary refill - *Routine Skin Exam Present: erythema (dorsal left foot) - *Routine Neurological Exam Present: alert, moving all extremities - Detailed Lower Extremity Exam Top foot image: 1 - Left 1-2nd toes are purple-blue hue distal tips. No open ulcers. Dry skin and callus noted to the right distal 5th toe and left distal hallux. Left dorsal foot edema and erythema, no ascending cellulitis. Non palpable pedal pulses on left. Doppler faint PT on left. CFT dealyed. No uclers to right foot. Toenails thick and elongated 1-10. No calf or thigh pain noted b/l. Decreased light touch sensation. Results - Labs Result Diagrams: 08/17/19 05:45 08/17/19 05:45 Labs: Abnormal lab results 08/16/19 08/16/19 08/16/19 Range/Units 11:58 11:58 15:36 WBC 11.4 H (4.8-10.8) K/mm3 RBC (4.20-5.40) M/mm3 Hgb (12.2-16.2) g/dL Eos # (Auto) 0.9 H (0.0-0.4) K/mm3 Carbon Dioxide (21.0-32.0) mmol/L BUN 25 H (7-18) mg/dL Creatinine 1.19 H (0.55-1.02) mg/dL Estimated GFR 44 L (>60) ml/min Est GFR ( Amer) 53 L (>60) ML/MIN Glucose 136 H (74-106) mg/dL POC Glucose 45 L* (70-110) Calcium (8.5-10.1) mg/dL AST 12 L (15-37) U/L Albumin 3.3 L (3.4-5.0) gm/dL Albumin/Globulin Ratio 1.0 L (1.1-1.8) Cholesterol 136 L (140-200) mg/dL 08/16/19 08/17/19 08/17/19 Range/Units 20:10 05:39 05:45 WBC 11.2 H (4.8-10.8) K/mm3 RBC 3.97 L (4.20-5.40) M/mm3 Hgb 12.0 L D (12.2-16.2) g/dL Eos # (Auto) 0.6 H (0.0-0.4) K/mm3 Carbon Dioxide (21.0-32.0) mmol/L BUN (7-18) mg/dL Creatinine (0.55-1.02) mg/dL Estimated GFR (>60) ml/min Est GFR ( Amer) (>60) ML/MIN Glucose (74-106) mg/dL POC Glucose 175 H 51 L (70-110) Calcium (8.5-10.1) mg/dL AST (15-37) U/L Albumin (3.4-5.0) gm/dL Albumin/Globulin Ratio (1.1-1.8) Cholesterol (140-200) mg/dL 08/17/19 Range/Units 05:45 WBC (4.8-10.8) K/mm3 RBC (4.20-5.40) M/mm3 Hgb (12.2-16.2) g/dL Eos # (Auto) (0.0-0.4) K/mm3 Carbon Dioxide 33 H (21.0-32.0) mmol/L BUN 21 H (7-18) mg/dL Creatinine 1.06 H (0.55-1.02) mg/dL Estimated GFR 50 L (>60) ml/min Est GFR ( Amer) (>60) ML/MIN Glucose 53 L D (74-106) mg/dL POC Glucose (70-110) Calcium 8.3 L (8.5-10.1) mg/dL AST (15-37) U/L Albumin (3.4-5.0) gm/dL Albumin/Globulin Ratio (1.1-1.8) Cholesterol (140-200) mg/dL H & H 08/16/19 08/17/19 Range/Units 11:58 05:45 Hgb 13.5 12.0 L D (12.2-16.2) g/dL Hct 42.4 37.5 (37.0-47.0) % All other labs normal. Assessment and Plan (1) Lower limb ischemia Current visit: Yes Status: Acute Category: Medical Code(s): I99.8 - Other disorder of circulatory system (2) CAD (coronary artery disease) Current visit: No Status: Chronic Qualifiers: Coronary Disease-Associated Artery/Lesion type: [place] artery [place] vs. transplanted heart: [place] heart Associated angina: without angina Qualified Code(s): I25.10 - Atherosclerotic heart disease of [place] coronary artery without angina pectoris Category: Medical Code(s): I25.10 - Atherosclerotic heart disease of [place] coronary artery without angina pectoris (3) COPD (chronic obstructive pulmonary disease) Current visit: No Status: Chronic Qualifiers: COPD type: unspecified COPD Qualified Code(s): J44.9 - Chronic obstructive pulmonary disease, unspecified Category: Medical Code(s): J44.9 - Chronic obstructive pulmonary disease, unspecified (4) Diabetes mellitus Current visit: No Status: Chronic Qualifiers: Diabetes mellitus type: type 2 Diabetes mellitus group home insulin use: without exterminator helper use Diabetes mellitus complication status: without complication Qualified Code(s): E11.9 - Type 2 diabetes mellitus without complications Category: Medical Code(s): E11.9 - Type 2 diabetes mellitus without complications (5) HTN (hypertension) Current visit: No Status: Chronic Qualifiers: Hypertension type: essential hypertension Qualified Code(s): I10 - Essential (primary) hypertension Category: Medical Code(s): I10 - Essential (primary) hypertension (6) Hyperlipemia Current visit: No Status: Chronic Qualifiers: Hyperlipidemia type: mixed hyperlipidemia Qualified Code(s): E78.2 - Mixed hyperlipidemia Category: Medical Code(s): E78.5 - Hyperlipidemia, unspecified (7) PAD (peripheral artery disease) Current visit: No Status: Chronic Category: Medical Code(s): I73.9 - Peripheral vascular disease, unspecified (8) PAF (paroxysmal atrial fibrillation) Current visit: No Status: Chronic Category: Medical Code(s): I48.0 - Paroxysmal atrial fibrillation (9) Pulmonary HTN Current visit: No Status: Chronic Category: Medical Code(s): I27.20 - Pu lmonary hypertension, unspecified (10) S/P peripheral artery angioplasty with stent placement Current visit: Yes Status: Acute Category: Surgical Code(s): Z95.820 - Peripheral vascular angioplasty status with implants and grafts (11) Onychogryphosis Current visit: Yes Status: Acute Category: Medical Code(s): L60.2 - Onychogryphosis (12) Nail dystrophy Current visit: Yes Status: Acute Category: Medical Code(s): L60.3 - Nail dystrophy - Assessment and plan all Dx Assessment and Plan for all problems:: LEFT 1-2ND TOE DISCOLORATION, PAD: S/P Aortagram with stent 08/16/19: IMPRESSION: Acute on chronic peripheral artery disease with acute limb threatening ischemia to the left foot giving a cold pulseless early gangrenous great toe. Successful drug-coated balloon angioplasty of the subtotally occluded left superficial femoral artery and left popliteal artery restoring single-vessel flow to the left foot. PLAN: 1. Dual antiplatelet therapy for 1 month then followed by Xarelto 2.5 twice daily 2. LDL less than 55 3. Aggressive risk factor modification 4. Rehabilitation We reviewed peripheral arterial disease. We discussed the patient's diabetes. In terms of the discoloration to the left first and second toe I recommend monitoring. Patient does have a few areas of dry skin. She can lotion as tolerated. I do not recommend doing aggressive callus debridements due to the r isk of traumatizing the skin and possible bruising and ischemia cascade. I recommend monitoring the patient toes. I would not recommend surgical intervention at this time. I expect the patient the discoloration may normalize or may still always be present. There is also the chance that the patient may lose circulation and to the toes and would ultimately at that point need an amputation. I discussed plan of care with Dr. Montanez. Recommend monitoring the left foot for infection in the future due to her increased risk. Currently no open sores or acute infection including drainage purulence or ascending cellulitis. Follow up outpatient as needed and with Cardio as directed. ONYCHOGRYPOSIS, NAIL DYSTROPHY, TOENAIL TRIM: Nails were debrided xs 10 utilizing manual debridement with a nail nipper. I educated the patient on the importance of routine foot care. I explained how elongated toenails can rub and cause abrasions and ulcers to the tip of the toe. With her severe PAD this could correlate with wounds that do not heal leading to gangrene and amputation. Patient verbalized understanding. We will set her up in the outpatient nail clinic for routine diabetic foot care. DM EDUCATION: A comprehensive diabetic foot examination was performed today. We discussed the systemic risks of diabetes and the importance of proper glucose control. We discussed the dangers of neuropathy or excessive pain. Patient was given a risk stratification of 3 and is recommend to follow up every 2-3 months. We discussed areas of high pressure on the patients foot as well as the risks and offloading solutions. We reviewed the proper foot care instructions such as: checking feet on a daily basis, keeping good hygiene, drying well between all toes, using lotion on dry skin, and wearing some form of foot protection at all times. We also discussed what to look for in areas of inflammation, ``hot spots, and ulcer formation. We did review patients current medications and discussed the importance of taking all medications as prescribed. We also discussed use of appropriate therapeutic footwear, inserts, and orthotics. Diabetic shoes are necessary in order to prevent rubbing and irritation on the deformities. This in return will help prevent ulceration formation, amputation, and infection. Patient qualifies for off the shelf Diabetic shoes with heat molded inserts due to the following conditions: diabetes, severe PAD, and gerardo pheral neuropathy. Follow up in clinic outpatinet for referral and Rx for DM shoes. 15-20 mins spent on counseling/education.
--- NOTE | 2019-08-17 11:55 | Progress Note ---
Subjective Date: 08/17/19 Time: 11:36 Principal diagnosis: PAD, ischemic toes Interval history: 79 yo WF in bed in NAD. Pain in foot and leg has significantly improved/nearly resolved. Exam Vital signs and Labs for Last 24 Hours: Temp Pulse Resp BP Pulse Ox 98.3 F 52 L 18 143/56 H 93 L 08/17/19 11:29 08/17/19 11:29 08/17/19 11:29 08/17/19 11:29 08/17/19 11:29 Laboratory Results - last 24 hr 08/16/19 11:58: APTT 29.7 08/16/19 11:58: WBC 11.4 H, RBC 4.62, Hgb 13.5, Hct 42.4, MCV 91.7, MCH 29.3, MCHC 31.9, RDW 13.1, Plt Count 355, MPV 8.0, Neut % (Auto) 63.8, Lymph % (Auto) 22.0, [place] % (Auto) 6.3, Eos % (Auto) 7.6, Baso % (Auto) 0.3, Neut # (Auto) 7.3, Lymph # (Auto) 2.5, [place] # (Auto) 0.7, Eos # (Auto) 0.9 H, Baso # (Auto) 0.0 08/16/19 11:58: Sodium 142, Potassium 3.5, Chloride 106, Carbon Dioxide 32, Anion Gap 7.5, BUN 25 H, Creatinine 1.19 H, Estimated Creat Clear 40, Estimated GFR 44 L, Est GFR ( Amer) 53 L, Glucose 136 H, Calcium 8.9, Total Bilirubin 0.3, AST 12 L, ALT 15, Alkaline Phosphatase 62, Total Protein 6.5, Albumin 3.3 L, Globulin 3.2, Albumin/Globulin Ratio 1.0 L, Triglycerides 100, Cholesterol 136 L, LDL Cholesterol 64, VLDL Cholesterol 20, HDL Cholesterol 52, Cholesterol/HDL Ratio 2.6 08/16/19 15:36: POC Glucose 45 L* 08/16/19 15:59: POC Glucose 87 08/16/19 20:10: POC Glucose 175 H 08/17/19 05:39: POC Glucose 51 L 08/17/19 05:45: WBC 11.2 H, RBC 3.97 L, Hgb 12.0 L D, Hct 37.5, MCV 94.5, MCH 30.0, MCHC 31.8, RDW 13.2, Plt Count 304, MPV 7.7, Neut % (Auto) 62.3, Lymph % (Auto) 23.0, [place] % (Auto) 8.7, Eos % (Auto) 5.6, Baso % (Auto) 0.4, Neut # (Auto) 7.0, Lymph # (Auto) 2.6, [place] # (Auto) 1.0, Eos # (Auto) 0.6 H, Baso # (Auto) 0.0 08/17/19 05:45: Sodium 141, Potassium 4.1, Chloride 107, Carbon Dioxide 33 H, Anion Gap 5.1, BUN 21 H, Creatinine 1.06 H, Estimated Creat Clear 46, Estimated GFR 50 L, Est GFR ( Amer) 61, Glucose 53 L D, Calcium 8.3 L 08/17/19 06:19: POC Glucose 78 08/17/19 11:12: POC Glucose 112 H I & O for Last 24 hours: Intake & Output 08/14/19 08/15/19 08/16/19 08/17/19 11:59 11:59 11:59 11:59 Intake Total 480 / 480 Balance 480 / 480 Weight 143 lb 148 lb 4.879 oz - *Routine Respiratory Exam Present: CTA bilaterally. Absent: accessory muscle use, rales, rhonchi, wheezes - *Routine Cardiovascular Exam Present: RRR. Absent: murmur, gallop, rubs - *Routine Extremities Exam Absent: edema, calf tenderness Comments: Left leg is warm. Foot is warm. Tips of first and second toes still red. No weeping ulcerations. Progress Note: A&P (1) Lower limb ischemia Status: Acute Current Visit: Yes (2) CAD (coronary artery disease) Status: Chronic Current Visit: No (3) COPD (chronic obstructive pulmonary disease) Status: Chronic Current Visit: No (4) Diabetes mellitus Status: Chronic Current Visit: No (5) HTN (hypertension) Status: Chronic Current Visit: No (6) Hyperlipemia Status: Chronic Current Visit: No (7) PAD (peripheral artery disease) Status: Chronic Current Visit: No (8) PAF (paroxysmal atrial fibrillation) Status: Chronic Current Visit: No (9) Pulmonary HTN Status: Chronic Current Visit: No (10) S/P peripheral artery angioplasty with stent placement Status: Acute Current Visit: Yes Assessment and Plan for All Diagnoses:: 1. Ischemic left leg, status post drug-eluting angioplasty to left SFA and popliteal arteries. Continue aspirin and Plavix. 2. PAD and CAD, continue Eliquis therapy 3. History of atrial fibrillation, currently in sinus rhythm, continue amiodaro ne, metoprolol and Eliquis therapy 4. Diabetes mellitus type 2, per Dr. Montanez
--- NOTE | 2019-08-18 08:41 | Progress Note ---
<Elba Vasquez - Last Filed: 08/18/19 08:38> Internal Medicine - PN: Subj *Date: 08/18/19 *Time: 08:38 Interval history: Patient states she did not rest well last night and is tired this morning. Nursing staff states her oxygen sats kept dropping while she was sleeping. She states the pain in her foot is controlled with pain medication. She was able to tolerate breakfast this morning. She had some nausea throughout the night but it has improved. Exam Vital signs and Labs for Last 24 Hours: Temp Pulse Resp BP Pulse Ox 98.8 F 56 L 20 131/66 91 L 08/18/19 04:00 08/18/19 05:53 08/18/19 04:00 08/18/19 04:00 08/18/19 08:15 Laboratory Results - last 24 hr 08/17/19 11:12: POC Glucose 112 H 08/17/19 16:23: POC Glucose 104 08/17/19 19:57: POC Glucose 145 H 08/18/19 05:55: POC Glucose 101 I & O for Last 24 hours: Intake & Output 08/15/19 08/16/19 08/17/19 08/18/19 11:59 11:59 11:59 11:59 Intake Total 480 / 480 720 / 720 Balance 480 / 480 720 / 720 Weight 143 lb 148 lb 4.879 oz 146 lb 1 oz - Constitutional no acute distress - *Routine Respiratory Exam Present: wheezes (faint) - *Routine Cardiovascular Exam Present: RRR - *Routine Abdominal Exam Present: soft, normoactive bowel sounds. Absent: tenderness - *Routine Extremities Exam Present: edema (trace in bilateral LE's). Absent: cyanosis, clubbing - *Routine Skin Exam Present: erythema (left foot still with some erythema, the foot is warm to the touch, great toe and 2nd toe are still purple in color), warm. Absent: rash - *Routine Neurological Exam Present: alert, oriented X3 Assessment and Plan (1) Lower limb ischemia Current visit: Yes Status: Acute Category: Medical Code(s): I99.8 - Other disorder of circulatory system (2) CAD (coronary artery disease) Current visit: No Status: Chronic Qualifiers: Coronary Disease-Associated Artery/Lesion type: [place] artery [place] vs. transplanted heart: [place] heart Associated angina: without angina Qualified Code(s): I25.10 - Atherosclerotic heart disease of [place] coronary artery without angina pectoris Category: Medical Code(s): I25.10 - Atherosclerotic heart disease of [place] coronary artery without angina pectoris (3) COPD (chronic obstructive pulmonary disease) Current visit: No Status: Chronic Qualifiers: COPD type: unspecified COPD Qualified Code(s): J44.9 - Chronic obstructive pulmonary disease, unspecified Category: Medical Code(s): J44.9 - Chronic obstructive pulmonary disease, unspecified (4) Diabetes mellitus Current visit: No Status: Chronic Qualifiers: Diabetes mellitus type: type 2 Diabetes mellitus chcf insulin use: without buttermaker helper use Diabetes mellitus complication status: without complication Qualified Code(s): E11.9 - Type 2 diabetes mellitus without complications Category: Medical Code(s): E11.9 - Type 2 diabetes mellitus without complications (5) HTN (hypertension) Current visit: No Status: Chronic Qualifiers: Hypertension type: essential hypertension Qualified Code(s): I10 - Essential (primary) hypertension Category: Medical Code(s): I10 - Essential (primary) hypertension (6) Hyperlipemia Current visit: No Status: Chronic Qualifiers: Hyperlipidemia type: mixed hyperlipidemia Qualified Code(s): E78.2 - Mixed hyperlipidemia Category: Medical Code(s): E78.5 - Hyperlipidemia, unspecified (7) PAD (peripheral artery disease) Current visit: No Status: Chronic Category: Medical Code(s): I73.9 - Peripheral vascular disease, unspecified (8) PAF (paroxysmal atrial fibrillation) Current visit: No Status: Chronic Category: Medical Code(s): I48.0 - Paroxysmal atrial fibrillation (9) Pulmonary HTN Current visit: No Status: Chronic Category: Medical Code(s): I27.20 - Pulmonary hypertension, unspecified (10) S/P peripheral artery angioplasty with stent placement Current visit: Yes Status: Acute Category: Surgical Code(s): Z95.820 - Peripheral vascular angioplasty status with implants and grafts (11) Onychogryphosis Current visit: Yes Status: Acute Category: Medical Code(s): L60.2 - Onychogryphosis (12) Nail dystrophy Current visit: Yes Status: Acute Category: Medical Code(s): L60.3 - Nail dystrophy - Assessment and plan all Dx Assessment and Plan for all problems:: Patient may be able to be discharged home today. Will discuss further care with Dr. Montanez. <Alexis Montanez - Last Filed: 08/18/19 09:32> Internal Medicine - PN: Subj *Date: 08/18/19 *Time: 09:29 Exam Vital signs and Labs for Last 24 Hours: Temp Pulse Resp BP Pulse Ox 99.2 F 66 16 114/35 L 91 L 08/18/19 08:00 08/18/19 08:00 08/18/19 08:00 08/18/19 08:00 08/18/19 08:15 Laboratory Results - last 24 hr 08/17/19 11:12: POC Glucose 112 H 08/17/19 16:23: POC Glucose 104 08/17/19 19:57: POC Glucose 145 H 08/18/19 05:55: POC Glucose 101 I & O for Last 24 hours: Intake & Output 08/15/19 08/16/19 08/17/19 08/18/19 23:59 23:59 23:59 23:59 Intake Total 120 / 120 1080 / 1080 120 / 120 Balance 120 / 120 1080 / 1080 120 / 120 Weight 143 lb 148 lb 4.879 oz 146 lb 1 oz Assessment and Plan (1) Lower limb ischemia Current visit: Yes Status: Acute Category: Medical Code(s): I99.8 - Other disorder of circulatory system (2) CAD (coronary artery disease) Current visit: No Status: Chronic Qualifiers: Coronary Disease-Associated Artery/Lesion type: [place] artery [place] vs. transplanted heart: [place] heart Associated angina: without angina Qualified Code(s): I25.10 - Atherosclerotic heart disease of [place] coronary artery without angina pectoris Category: Medical Code(s): I25.10 - Atherosclerotic heart disease of [place] coronary artery without angina pectoris (3) COPD (chronic obstructive pulmonary disease) Current visit: No Status: Chronic Qualifiers: COPD type: unspecified COPD Qualified Code(s): J44.9 - Chronic obstructive pulmonary disease, unspecified Category: Medical Code(s): J44.9 - Chronic obstructive pulmonary disease, unspecified (4) Diabetes mellitus Current visit: No Status: Chronic Qualifiers: Diabetes mellitus type: type 2 Diabetes mellitus chcf insulin use: without chcf use Diabetes mellitus complication status: without complication Qualified Code(s): E11.9 - Type 2 diabetes mellitus without complications Category: Medical Code(s): E11.9 - Type 2 diabetes mellitus without complications (5) HTN (hypertension) Current visit: No Status: Chronic Qualifiers: Hypertension type: essential hypertension Qualified Code(s): I10 - Essential (primary) hypertension Category: Medical Code(s): I10 - Essential (primary) hypertension (6) Hyperlipemia Current visit: No Status: Chronic Qualifiers: Hyperlipidemia type: mixed hyperlipidemia Qualified Code(s): E78.2 - Mixed hyperlipidemia Category: Medical Code(s): E78.5 - Hyperlipidemia, unspecified (7) PAD (peripheral artery disease) Current visit: No Status: Chronic Category: Medical Code(s): I73.9 - Peripheral vascular disease, unspecified (8) PAF (paroxysmal atrial fibrillation) Current visit: No Status: Chronic Category: Medical Code(s): I48.0 - Paroxysmal atrial fibrillation (9) Pulmonary HTN Current visit: No Status: Chronic Category: Medical Code(s): I27.20 - Pulmonary hypertension, unspecified (10) S/P peripheral artery angioplasty with stent placement Current visit: Yes Status: Acute Category: Surgical Code(s): Z95.820 - Peripheral vascular angioplasty status with implants and grafts (11) Onychogryphosis Current visit: Yes Status: Acute Category: Medical Code(s): L60.2 - Onychogryphosis (12) Nail dystrophy Current visit: Yes Status: Acute Category: Medical Code(s): L60.3 - Nail dystrophy - Assessment and plan all Dx Assessment and Plan for all problems:: Saw patient, agree with above note. Pt has been up a few times out of bed. She does still have oxygen desaturations when she sleeps. Plan to discharge home today with supplemental oxygen when she is sleeping. She will need a sleep stud y in the near future. Plan office f/u in 4 or 5 days.
--- NOTE | 2019-08-21 21:09 | Discharge Summary ---
General - General Admission date:: 08/16/19 Discharge date: 08/18/19 HPI HPI: Ms. Zamora is a 79-year-old female with a history of diabetes, hypertension, hyperlipidemia, COPD, CHF, coronary artery disease, atrial fibrillation, and peripheral arterial disease. She previously had 3 stents placed in the left thigh in [place] [address] Chadwick. She states she was doing well up until approximately 3 to 4 days ago when she began having pain behind the left knee that radiated down to the foot. She began having some redness to the distal aspect of the foot and over the past 2 days, her great toe and second digit have started to turn a bluish-purple color. Her foot was cold and she was worried she may have lack of blood flow again to the limb. She presented the office of [facility] today. A pulse was unable to be found in her foot. Cardiology was consulted and requested that the patient be admitted. They want her started on a heparin drip and will take her to the Transplant Nurse this afternoon for possible stent placement. Hospital Course Hospital Course: The patient was admitted and started on a heparin drip. The patient had acute limb threatening ischemia to the left foot and she had successful drug-coated balloon angioplasty of the subtotally occluded left superficial femoral artery and left popliteal artery restoring single-vessel flow to the left foot. Cardiology recommended dual antiplatelet therapy for 1 month followed by Xarelto 2.5 mg twice daily. The patient tolerated the procedure well. Her foot became warm after the procedure but did remain slightly red and the toes remained discolored. Pain medication controlled her pain. Dr. Lancaster was consulted due to the toe discoloration. Dr. Lancaster saw the patient and recommended monitoring. She did not recommend aggressive debridement. The pain in her foot did improve. She was continued on her aspirin and Plavix as well as Eliquis therapy. She did have oxygen desaturation when she slept. She was stable to be discharged home on supplemental oxygen while sleeping. Dr. Montanez felt she would need a sleep study in the near future. She will follow-up in the office [facility] in 4 to 5 days. Objective Vital signs: Temp Pulse Resp BP Pulse Ox 99.2 F 66 16 114/35 L 87 L 08/18/19 08:00 08/18/19 08:00 08/18/19 08:00 08/18/19 08:00 08/18/19 10:24 Narrative: - Constitutional no acute distress - *Routine HEENT Exam Head: Present: normocephalic Eye: Present: EOMI, PERRL ENT: Present: mucous membranes moist - *Routine Neck Exam Present: supple. Absent: lymphadenopathy - *Routine Respiratory Exam Present: CTA bilaterally - *Routine Cardiovascular Exam Present: RRR - *Routine Abdominal Exam Present: soft, normoactive bowel sounds. Absent: tenderness - *Routine Extremities Exam Present: cyanosis (left great toe and 2nd digit), edema (bilateral LE's), calf t enderness (left) Comments: erthema of the distal aspect of the left foot, cold to the touch, no pedal pulses palpable - *Routine Skin Exam Present: cyanosis (left great toe and 2nd digit), erythema (distal left foot) - *Routine Neurological Exam Present: alert, oriented X3 DS: Diagnosis - Discharge Diagnosis (1) Lower limb ischemia Status: Acute (2) CAD (coronary artery disease) Status: Chronic (3) COPD (chronic obstructive pulmonary disease) Status: Chronic (4) Diabetes mellitus Status: Chronic (5) HTN (hypertension) Status: Chronic (6) Hyperlipemia Status: Chronic (7) PAD (peripheral artery disease) Status: Chronic (8) PAF (paroxysmal atrial fibrillation) Status: Chronic (9) Pulmonary HTN Status: Chronic (10) S/P peripheral artery angioplasty with stent placement Status: Acute (11) Onychogryphosis Status: Acute (12) Nail dystrophy Status: Acute Discharge Plan - Patient Discharge Instructions ACTIVITY: Continue current activity DIET: continue same diet Additional Instructions: Supplemental oxygen 2 L/min per NC while sleeping Patient Instructions: Peripheral Artery Disease, DI for Cardiac Catheterization, DI for Surgical Site Infection, Low-Sodium Diet - Follow up Plan Follow up with: Yuliana Lombardi APRN [Nurse Practitioner] - 08/21/19 Sage Chadwick MD [Staff Physician] - 08/30/19 9:30 am Disposition: Home, Self-Alf Medications: Home Medications Medication Instructions Recorded Confirmed Type Pravastatin Sodium [Pravachol 40mg 40 mg PO HS 03/31/18 08/17/19 History Tablet] gabapentin 100 mg capsule 100 mg PO TID cap 07/13/18 08/17/19 History digoxin 125 mcg (0.125 mg) tablet 0.125 mg PO DAILY #90 tab 09/01/18 08/17/19 Rx apixaban 5 mg tablet 5 mg PO BID #60 tab 09/18/18 08/17/19 Rx glimepiride 2 mg tablet 2 mg PO DAILY 11/23/18 08/17/19 History amiodarone 200 mg tablet 200 mg PO BID tab 03/30/19 08/17/19 History omeprazole 40 mg capsule,delayed 40 mg PO DAILY PRN 03/30/19 08/17/19 History release clopidogrel 75 mg tablet 75 mg PO DAILY #30 tab 06/12/19 08/17/19 Rx Budesonide/Formoterol Fumarate 2 puffs IH BID 08/16/19 08/17/19 History [Symbicort 160-4.5 Mcg Inhaler] Furosemide [Furosemide 40MG tAB] 40 mg PO Q48H 08/16/19 08/17/19 History Losartan Potassium [Cozaar 50mg 50 mg PO DAILY 08/16/19 08/17/19 History Tablets] Furosemide [Furosemide 20mg Tab] 20 mg PO Q48H 08/17/19 08/17/19 History Aspirin [Aspir 81] 81 mg PO DAILY #30 tablet. 08/18/19 Rx Medical Supply, Miscellaneous 1 each IH CONT #1 device 08/18/19 Rx [Oxygen Concentrator] Metoprolol Tartrate 25 mg PO BID 08/18/19 08/18/19 History Miscellaneous Medical Supply 1 each IH PM #1 device 08/18/19 Rx [Oxygen, Portable] Oxycodone HCl [Oxycodone 5mg tab 5 mg PO Q4HP PRN #18 tab 08/18/19 Rx (IR)] Prescriptions/Medication Reconciliation: New Oxycodone HCl [Oxycodone 5mg tab (IR)] 5 mg PO Q4HP PRN #18 tab PRN Reason: Severe Pain Aspirin [Aspir 81] 81 mg PO DAILY #30 tablet. Medical Supply, Miscellaneous [Oxygen Concentrator] 1 each IH CONT #1 device Miscellaneous Medical Supply [Oxygen, Portable] 1 each IH PM #1 device Continued gabapentin 100 mg capsule 100 mg PO TID cap glimepiride 2 mg tablet 2 mg PO DAILY omeprazole 40 mg capsule,delayed release 40 mg PO DAILY PRN PRN Reason: GERD digoxin 125 mcg (0.125 mg) tablet 0.125 mg PO DAILY #90 tab apixaban 5 mg tablet 5 mg PO BID #60 tab amiodarone 200 mg tablet 200 mg PO BID tab clopidogrel 75 mg tablet 75 mg PO DAILY #30 tab Furosemide [Furosemide 40MG tAB] 40 mg PO Q48H Pravastatin Sodium [Pravachol 40mg Tablet] 40 mg PO HS Losartan Potassium [Cozaar 50mg Tablets] 50 mg PO DAILY Budesonide/Formoterol Fumarate [Symbicort 160-4.5 Mcg Inhaler] 2 puffs IH BID Furosemide [Furosemide 20mg Tab] 20 mg PO Q48H Metoprolol Tartrate 25 mg PO BID - Problem Reconciliation Problems Reviewed?: Yes
== END 2019-08-18 11:47 | disposition home or self-care (01) ==
LOC: 2ND
PROVIDERS: ADMIT Family Medicine; ATTEND Family Medicine
DX: I77.1 Stricture of artery; J44.9 Chronic obstructive pulmonary disease, unspecified; I70.92 Chronic total occlusion of artery of the extremities; Z95.820 Peripheral vascular angioplasty status with implants and grafts; I27.20 Pulmonary hypertension, unspecified; I70.222 Atherosclerosis of native arteries of extremities with rest pain, left leg; E11.52 Type 2 diabetes mellitus with diabetic peripheral angiopathy with gangrene; I48.0 Paroxysmal atrial fibrillation; Z79.899 Other long term (current) drug therapy; I11.0 Hypertensive heart disease with heart failure; I50.9 Heart failure, unspecified; I70.262 Atherosclerosis of native arteries of extremities with gangrene, left leg
CPT/HCPCS: 36415; 37226; 80048; 80053; 80061; 82962; 85025; 85730; 99152; 99153; C1725; C1760; C1766; C1769; C1894; C2623; G0378; J2405; Q9966; Q9967

== ENCOUNTER 2019-08-22 12:11 | Observation (INO) ==
--- NOTE | 2019-08-22 12:58 | History & Physical Report ---
*Admission Date: 08/22/19 *Chief complaint: left foot and toes infected *History of present illness: Ms. Zamora is a 79-year-old female who was just recently discharged from [facility] last week after an admission for limb ischemia status post angioplasty of the left leg. During that admission, she had some discoloration of the great toe and the second toe on the left foot. Dr. King was consulted last week and wanted to observe the foot. The patient presented the office of [facility] today for follow-up on her hospital stay. Her toes were still discolored and were swollen and blistered. She had more erythema on the top of her foot and along the great and second digits. There was some drainage of the blisters on both toes. Her WBC was elevated in the office at 13.6. The case was discussed with Dr. King and the decision was made to admit the patient for IV vancomycin and debridement of the toes. [facility] History I have reviewed the patient's past medical history: Yes Medical History: Reports:: Asthma, Atherosclerotic Heart Disease, Atrial Fibrillation, Congestive Heart Failure, Chronic Obstructive Pulmonary Disease (COPD), Coronary Artery Disease, Diabetes Mellitus Type 2, Hyperlipidemia, Hyp ertension, Peripheral Artery Disease, Renal Insufficiency Denies:: Cancer, Diabetes Mellitus Type 1, Internal Pacemaker, MRSA, Seizures *Have you ever received a pneumonia vaccine?: Yes *Have you received a flu vaccine this season?: Yes Other Medical History: Reports: Other (PAD) Other Surgeries: Yes: Angiogram, Angioplasty, Sinus Surgery, Tubal Ligation, Other (PAD with multiple stents to bilateral legs). No: Pacemaker Amputation: No Fractures: No - *Social History Smoking Status: Never smoker Alcohol Intake: never Alcohol Intake Frequency:: other Substance Use Type: denies use *Occupational Status:: employed Housing: house Household Members: children *Travel in the last 8 weeks: None Family Hx:: Coronary Artery Disease, Diabetes, Heart Attack, Stroke Review of Systems - Constitutional Denies chills, Denies fever(s), Denies weakness - Eyes Denies blurry vision, Denies double vision - ENT Denies nasal congestion, Denies sore throat - *Cardiovascular Denies chest pain, Denies shortness of breath - *Respiratory Denies cough - *Gastrointestinal Denies abdominal pain, Denies nausea, Denies vomiting - *Genitourinary Denies difficulty urinating, Denies painful urination - *Musculoskeletal Denies joint pain (left foot) - *Neurologic Reports weakness, Denies frequent falls, Denies headache(s), Denies dizziness Meds Home Medications Medication Instructions Recorded Confirmed Type Pravastatin Sodium [Pravachol 40mg 40 mg PO HS 03/31/18 08/17/19 History Tablet] gabapentin 100 mg capsule 100 mg PO TID cap 07/13/18 08/17/19 History digoxin 125 mcg (0.125 mg) tablet 0.125 mg PO DAILY #90 tab 09/01/18 08/17/19 Rx apixaban 5 mg tablet 5 mg PO BID #60 tab 09/18/18 08/17/19 Rx glimepiride 2 mg tablet 2 mg PO DAILY 11/23/18 08/17/19 History amiodarone 200 mg tablet 200 mg PO BID tab 03/30/19 08/17/19 History omeprazole 40 mg capsule,delayed 40 mg PO DAILY PRN 03/30/19 08/17/19 History release clopidogrel 75 mg tablet 75 mg PO DAILY #30 tab 06/12/19 08/17/19 Rx Budesonide/Formoterol Fumarate 2 puffs IH BID 08/16/19 08/17/19 History [Symbicort 160-4.5 Mcg Inhaler] Furosemide [Furosemide 40MG tAB] 40 mg PO Q48H 08/16/19 08/17/19 History Losartan Potassium [Cozaar 50mg 50 mg PO DAILY 08/16/19 08/17/19 History Tablets] Furosemide [Furosemide 20mg Tab] 20 mg PO Q48H 08/17/19 08/17/19 History Aspirin [Aspir 81] 81 mg PO DAILY #30 tablet. 08/18/19 Rx Medical Supply, Miscellaneous 1 each IH CONT #1 device 08/18/19 Rx [Oxygen Concentrator] Metoprolol Tartrate 25 mg PO BID 08/18/19 08/18/19 History Miscellaneous Medical Supply 1 each IH PM #1 device 08/18/19 Rx [Oxygen, Portable] Oxycodone HCl [Oxycodone 5mg tab 5 mg PO Q4HP PRN #18 tab 08/18/19 Rx (IR)] Allergies Allergy/AdvReac Type Severity Reaction Status Date / Time codeine [CODEINE] Allergy Unknown Verified 07/19/19 11:03 Exam - Constitutional no acute distress - *Routine HEENT Exam Head: Present: normocephalic Eye: Present: EOMI, PERRL ENT: Present: mucous membranes moist - *Routine Neck Exam Present: supple. Absent: lymphadenopathy - *Routine Respiratory Exam Present: CTA bilaterally - *Routine Cardiovascular Exam Present: RRR - *Routine Abdominal Exam Present: soft, normoactive bowel sounds. Absent: tenderness - *Routine Extremities Exam Present: edema (bilateral LE's). Absent: cyanosis, clubbing - *Routine Skin Exam Present: cyanosis (great toe and 2nd digit), erythema (of the top of the entire foot and along the left great toe and left 2nd digit, there is blistering present with swelling and drainage) - *Routine Neurological Exam Present: alert, oriented X3 Assessment and Plan (1) Left foot infection Current visit: Yes Status: Acute Category: Medical Code(s): L08.9 - Local infection of the skin and subcutaneous tissue, unspecified (2) S/P peripheral artery angioplasty with stent placement Current visit: No Status: Acute Category: Surgical Code(s): Z95.820 - Peripheral vascular angioplasty status with implants and grafts (3) CAD (coronary artery disease) Current visit: No Status: Chronic Qualifiers: Coronary Disease-Associated Artery/Lesion type: [place] artery [place] vs. transplanted heart: [place] heart Associated angina: without angina Qualified Code(s): I25.10 - Atherosclerotic heart disease of [place] coronary artery without angina pectoris Category: Medical Code(s): I25.10 - Atherosclerotic heart disease of [place] coronary artery without angina pectoris (4) COPD (chronic obstructive pulmonary disease) Current visit: No Status: Chronic Qualifiers: COPD type: unspecified COPD Qualified Code(s): J44.9 - Chronic obstructive pulmonary disease, unspecified Category: Medical Code(s): J44.9 - Chronic obstructive pulmonary disease, unspecified (5) Diabetes mellitus Current visit: No Status: Chronic Qualifiers: Diabetes mellitus type: type 2 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: without correction use Diabetes mellitus complication status: without complication Qualified Code(s): E11.9 - Type 2 diabetes mellitus without complications Category: Medical Code(s): E11.9 - Type 2 diabetes mellitus without complications (6) HTN (hypertension) Current visit: No Status: Chronic Qualifiers: Hypertension type: essential hypertension Qualified Code(s): I10 - Essential (primary) hypertension Category: Medical Code(s): I10 - Essential (primary) hypertension (7) Hyperlipemia Current visit: No Status: Chronic Qualifiers: Hyperlipidemia type: mixed hyperlipidemia Qualified Code(s): E78.2 - Mixed hyperlipidemia Category: Medical Code(s): E78.5 - Hyperlipidemia, unspecified (8) jail current use of anticoagulant therapy Current visit: No Status: Chronic Category: Medical Code(s): Z79.01 - jail (current) use of anticoagulants (9) PAD (peripheral artery disease) Current visit: No Status: Chronic Category: Medical Code(s): I73.9 - Peripheral vascular disease, unspecified (10) PAF (paroxysmal atrial fibrillation) Current visit: No Status: Chronic Category: Medical Code(s): I48.0 - Paroxysmal atrial fibrillation (11) Pulmonary HTN Current visit: No Status: Chronic Category: Medical Code(s): I27.20 - Pulmonary hypertension, unspecified - Assessment and plan all Dx Assessment and Plan for all problems:: Will admit patient and start on IV vancomycin. Will consult podiatry and get an x-ray of the foot, labs, and blood cultures.
[2019-08-22 14:12] LABS: Albumin Level 2.9 gm/dL (3.4-5.0); Albumin/Globulin Ratio 0.8 (1.1-1.8); Bilirubin,Total 0.5 mg/dL (0.2-1.0); Globulin 3.6 gm/dl (1.3-3.2); Total Protein,Serum 6.5 gm/dL (6.4-8.2)
[2019-08-22 14:30] LABS: Basophils # 0.1 K/mm3 (0-0.2); Basophils % 0.5 % (0.1-2.0); Eosinophils # 0.8 K/mm3 (0.0-0.4); Eosinophils % 6.6 % (0.1-12.0); Hematocrit 38.5 % (37.0-47.0); Hemoglobin 12.2 g/dL (12.2-16.2); Lymphocytes # 2.3 K/mm3 (0.7-4.5); Lymphocytes % 20.2 % (10-50); Mean Corpuscular HGB Conc 31.7 g/dL (31.8-35.4); Mean Corpuscular Volume 92.9 fl (81-99); Mean Platelet Volume 7.8 fl (7.4-10.4); Monocytes # 0.8 K/mm3 (0.1-1.0); Monocytes % 6.9 % (1.7-9.3); Neutrophils # 7.6 K/mm3 (1.8-7.8); Neutrophils % 65.9 % (37.0-80.0); Platelet Count 403 K/mm3 (142-424); Red Blood Count 4.14 M/mm3 (4.20-5.40); Red Cell Distribution Width 12.8 % (11.5-17.5); White Blood Count 11.5 K/mm3 (4.8-10.8)
--- NOTE | 2019-08-22 15:02 | Pharmacy Consult Notes ---
- Pharmacy Consult Date: 08/22/19 Time: 15:00 Referring provider: DR. JARRELL Reason for Consult:: VANCOMYCIN DOSING Allergies and ADEs:: Allergies Allergy/AdvReac Type Severity Reaction Status Date / Time codeine [CODEINE] Allergy Unknown Verified 07/19/19 11:03 Home Medications:: Home Medications Medication Instructions Recorded Confirmed Type Pravastatin Sodium [Pravachol 40mg 40 mg PO HS 03/31/18 08/22/19 History Tablet] gabapentin 100 mg capsule 100 mg PO TID cap 07/13/18 08/22/19 History digoxin 125 mcg (0.125 mg) tablet 0.125 mg PO DAILY #90 tab 09/01/18 08/22/19 Rx apixaban 5 mg tablet 5 mg PO BID #60 tab 09/18/18 08/22/19 Rx glimepiride 2 mg tablet 2 mg PO DAILY 11/23/18 08/22/19 History amiodarone 200 mg tablet 200 mg PO BID tab 03/30/19 08/22/19 History omeprazole 40 mg capsule,delayed 40 mg PO DAILY PRN 03/30/19 08/22/19 History release clopidogrel 75 mg tablet 75 mg PO DAILY #30 tab 06/12/19 08/22/19 Rx Budesonide/Formoterol Fumarate 2 puffs IH BID 08/16/19 08/22/19 History [Symbicort 160-4.5 Mcg Inhaler] Furosemide [Furosemide 40MG tAB] 40 mg PO Q48H 08/16/19 08/22/19 History Losartan Potassium [Cozaar 50mg 50 mg PO DAILY 08/16/19 08/22/19 History Tablets] Furosemide [Furosemide 20mg Tab] 20 mg PO Q48H 08/17/19 08/22/19 History Medical Supply, Miscellaneous 1 each IH CONT #1 device 08/18/19 Rx [Oxygen Concentrator] Metoprolol Tartrate 25 mg PO BID 08/18/19 08/22/19 History Oxycodone HCl [Oxycodone 5mg tab 5 mg PO Q4HP PRN #18 tab 08/18/19 08/22/19 Rx (IR)] Aspirin [Aspir 81] 81 mg PO DAILY 08/22/19 08/22/19 History Miscellaneous Medical Supply 1 each IH PM 08/22/19 08/22/19 History [Oxygen, Portable] Height: 1.5 m Weight: 60.498 kg Laboratory Results:: Laboratory Results - last 24 hr 08/22/19 13:49: WBC 11.5 H, RBC 4.14 L, Hgb 12.2, Hct 38.5, MCV 92.9, MCH 29.5, MCHC 31.7 L, RDW 12.8, Plt Count 403, MPV 7.8, Neut % (Auto) 65.9, Lymph % (Auto) 20.2, [place] % (Auto) 6.9, Eos % (Auto) 6.6, Baso % (Auto) 0.5, Neut # (Auto) 7.6, Lymph # (Auto) 2.3, [place] # (Auto) 0.8, Eos # (Auto) 0.8 H, Baso # (Auto) 0.1 08/22/19 13:49: Sodium 137, Potassium 4.0, Chloride 97 L, Carbon Dioxide 35 H, Anion Gap 9.0, BUN 22 H, Creatinine 0.84, Estimated Creat Clear 44, Estimated GFR 66, Est GFR ( Amer) 79, Glucose 156 H, Calcium 9.0, Total Bilirubin 0.5, AST 11 L, ALT 16, Alkaline Phosphatase 53, Total Protein 6.5, Albumin 2.9 L , Globulin 3.6 H, Albumin/Globulin Ratio 0.8 L 08/22/19 13:49: ESR 75 H 08/22/19 13:49: C-Reactive Protein 7.5 H Medical History: Reports:: Asthma, Atherosclerotic Heart Disease, Atrial Fibrillation, Congestive Heart Failure, Chronic Obstructive Pulmonary Disease (COPD), Coronary Artery Disease, Diabetes Mellitus Type 2, Hyperlipidemia, Hypertension, Peripheral Artery Disease, Renal Insufficiency Denies:: Cancer, Diabetes Mellitus Type 1, Internal Pacemaker, MRSA, Seizures Assessment and Plan (1) Left foot infection Current visit: Yes Status: Acute Category: Medical Code(s): L08.9 - Local infection of the skin and subcutaneous tissue, unspecified (2) S/P peripheral artery angioplasty with stent placement Current visit: No Status: Acute Category: Surgical Code(s): Z95.820 - Peripheral vascular angioplasty status with implants and grafts (3) CAD (coronary artery disease) Current visit: No Status: Chronic Qualifiers: Coronary Disease-Associated Artery/Lesion type: [place] artery [place] vs. transplanted heart: [place] heart Associated angina: without angina Qualified Code(s): I25.10 - Atherosclerotic heart disease of [place] coronary artery without angina pectoris Category: Medical Code(s): I25.10 - Atherosclerotic heart disease of [place] coronary artery without angina pectoris (4) COPD (chronic obstructive pulmonary disease) Current visit: No Status: Chronic Qualifiers: COPD type: unspecified COPD Qualified Code(s): J44.9 - Chronic obstructive pulmonary disease, unspecified Category: Medical Code(s): J44.9 - Chronic obstructive pulmonary disease, unspecified (5) Diabetes mellitus Current visit: No Status: Chronic Qualifiers: Diabetes mellitus type: type 2 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: without laborer marine terminal use Diabetes mellitus complication status: without complication Qualified Code(s): E11.9 - Type 2 diabetes mellitus without complications Category: Medical Code(s): E11.9 - Type 2 diabetes mellitus without complications (6) HTN (hypertension) Current visit: No Status: Chronic Qualifiers: Hypertension type: essential hypertension Qualified Code(s): I10 - Essential (primary) hypertension Category: Medical Code(s): I10 - Essential (primary) hypertension (7) Hyperlipemia Current visit: No Status: Chronic Qualifiers: Hyperlipidemia type: mixed hyperlipidemia Qualified Code(s): E78.2 - Mixed hyperlipidemia Category: Medical Code(s): E78.5 - Hyperlipidemia, unspecified (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 visit: No Status: Chronic Category: Medical Code(s): Z79.01 - residential (current) use of anticoagulants (9) PAD (peripheral artery disease) Current visit: No Status: Chronic Category: Medical Code(s): I73.9 - Peripheral vascular disease, unspecified (10) PAF (paroxysmal atrial fibrillation) Current visit: No Status: Chronic Category: Medical Code(s): I48.0 - Paroxysmal atrial fibrillation (11) Pulmonary HTN Current visit: No Status: Chronic Category: Medical Code(s): I27.20 - Pulmonary hypertension, unspecified - Assessment and plan all Dx Assessment and Plan for all problems:: BASED ON PATIENT'S FACTORS, RECOMMENDED STARTING VANCOMYCIN 1250 MG X1 DOSE THEN FOLLOW UP WITH VANCOMYCIN 1 GM Q24H THEREAFTER. PHARMACY WILL FOLLOW DAILY AND ADJUST APPROPRIATE.
--- NOTE | 2019-08-22 15:35 | Consult Report ---
*Admission Date: 08/22/19 <Amada Mayorga - 08/22/19 15:37> *Reason for consult:: left foot and toes infected <MukeshAmada Layne - 08/22/19 15:37> *History of present illness: Admission Date: 08/22/19 *Chief complaint: left foot and toes infected *History of present illness: Ms. Zamora is a 79-year-old female who was just recently discharged from [facility] last week after an admission for limb ischemia status post angioplasty of the left leg. During that admission, she had some discoloration of the great toe and the second toe on the left foot. Dr. King was consulted last week and wanted to observe the foot. The patient presented the office of [facility] today for follow-up on her hospital stay. Her toes were still discolored and were swollen and blistered. She had more erythema on the top of her foot and along the great and second digits. There was some drainage of the blisters on both toes. Her WBC was elevated in the office at 13.6. The case was discussed with Dr. King and the decision was made to admit the patient for IV vancomycin and debridement of the toes. Patient resting in bed and is getting her IV vancomycin now administered by nursing at this time. New labs were drawn and results at 1349 with a WBC of 11.5, ESR 75mm/hr, CRP 7.5mg/dl. The Patient's top of left foot has 1+ pedal edema, erythema proximal hallux and 2nd toes and along top of foot. Toes were cleaned with Betadine and then blisters were de-roofed with a #15 blade and cultures obtained from the great and 2nd toe, patient tolerated this well with minimal sensation to the areas. Left hallux wound measures (5.0 cm x 1.4 cm x 0.2cm) the left 2nd toe measures (2.0 cm x 1.0 cm x 0.2 cm) both areas had serosanguineous drainage expelled from them. The wounds were then cleaned with betadine again and dressed with betadine soaked adaptic and 4x4 gauze and covered with kerlix. <Amada Mayorga - 08/22/19 17:32> Review of Systems - Constitutional Denies fever(s), Denies weakness <Amada Mayorga 08/22/19 17:32> - Eyes Denies change in vision <Amada Mayorga 08/22/19 17:32> - ENT Denies dizziness <Amada Mayorga 08/22/19 17:32> - *Cardiovascular Denies chest pain, Denies leg pain with activity, Denies shortness of breath <Amada Mayorga 08/22/19 17:32> - *Respiratory Denies shortness of breath <Amada Mayorga 08/22/19 17:32> - *Gastrointestinal Denies abdominal pain, Denies difficulty swallowing <Amada Mayorga 08/22/19 17:32> - *Musculoskeletal Reports numbness <Amada Mayorga 08/22/19 17:32> Comments: Patient reports decreased sensation to her B/L feet and denies pain on her Left hallux and 2nd toe. <Amada Mayorga 08/22/19 17:32> - Integumentary/Breasts Reports change in skin color <Amada Mayorga 08/22/19 17:32> Comments: Patient's left hallux and 2nd toe has erythema and purplish tint in color noted both distally and proximally. <Amada Mayorga 08/22/19 17:32> - *Neurologic Reports tingling/numbness/burning sensations, Reports weakness, Denies frequent falls, Denies headache(s), Denies dizziness <Amada Mayorga 08/22/19 17:32> - Psychiatric Denies anxiety, Denies confusion <Amada Mayorga 08/22/19 17:32> - Allergic/Immunologic Denies wheezing <Amada Mayorga 08/22/19 17:32> [facility] History Medical History: Reports:: Asthma, Atherosclerotic Heart Disease, Atrial Fibrillation, Congestive Heart Failure, Chronic Obstructive Pulmonary Disease (COPD), Coronary Artery Disease, Diabetes Mellitus Type 2, Hyperlipidemia, Hypertension, Peripheral Artery Disease, Renal Insufficiency Denies:: Cancer, Diabetes Mellitus Type 1, Internal Pacemaker, MRSA, Seizures <Amada Mayorga 08/22/19 15:37> *Have you ever received a pneumonia vaccine?: Yes <Amada Mayorga 08/22/19 15:37> *Have you received a flu vaccine this season?: No (Does not want) <Amada Mayorga 08/22/19 15:37> Other Medical History: Reports: Other (PAD) <Amada Mayorga 08/22/19 15:3 7> Other Surgeries: Yes: Angiogram, Angioplasty, Sinus Surgery, Tubal Ligation, Other (PAD with multiple stents to bilateral legs). No: Pacemaker <Amada Mayorga 08/22/19 15:37> Amputation: No <Amada Mayorga 08/22/19 15:37> Fractures: No <Amada Mayorga 08/22/19 15:37> - *Social History Educational Level: Completed High School <Amada Mayorga 08/22/19 15:37> Smoking Status: Never smoker <Amada Mayorga 08/22/19 15:37> Alcohol Intake: never <Amada Mayorga 08/22/19 15:37> Alcohol Intake Frequency:: other <Amada Mayorga 08/22/19 15:37> Substance Use Type: denies use <Amada Mayorga 08/22/19 15:37> *Occupational Status:: employed <Amada Mayorga 08/22/19 15:37> Housing: house <Amada Mayorga 08/22/19 15:37> Household Members: children <Amada Mayorga 08/22/19 15:37> *Travel in the last 8 weeks: None <Amada Mayorga 08/22/19 15:37> Family Hx:: Coronary Artery Disease, Diabetes, Heart Attack, Stroke <Amada Mayorga 08/22/19 15:37> Meds Home Medications Medication Instructions Recorded Confirmed Type Pravastatin Sodium [Pravachol 40mg 40 mg PO HS 03/31/18 08/22/19 History Tablet] gabapentin 100 mg capsule 100 mg PO TID cap 07/13/18 08/22/19 History digoxin 125 mcg (0.125 mg) tablet 0.125 mg PO DAILY #90 tab 09/01/18 08/22/19 Rx apixaban 5 mg tablet 5 mg PO BID #60 tab 09/18/18 08/22/19 Rx glimepiride 2 mg tablet 2 mg PO DAILY 11/23/18 08/22/19 History amiodarone 200 mg tablet 200 mg PO BID tab 03/30/19 08/22/19 History omeprazole 40 mg capsule,delayed 40 mg PO DAILYP PRN 03/30/19 08/23/19 History release clopidogrel 75 mg tablet 75 mg PO DAILY #30 tab 06/12/19 08/22/19 Rx Budesonide/Formoterol Fumarate 2 puffs IH BID 08/16/19 08/22/19 History [Symbicort 160-4.5 Mcg Inhaler] Furosemide [Furosemide 40MG tAB] 40 mg PO Q48H 08/16/19 08/22/19 History Losartan Potassium [Cozaar 50mg 50 mg PO DAILY 08/16/19 08/22/19 History Tablets] Furosemide [Furosemide 20mg Tab] 20 mg PO Q48H 08/17/19 08/22/19 History Medical Supply, Miscellaneous 1 each IH CONT #1 device 08/18/19 08/23/19 Rx [Oxygen Concentrator] Metoprolol Tartrate 25 mg PO BID 08/18/19 08/22/19 History Oxycodone HCl [Oxycodone 5mg tab 5 mg PO Q4HP PRN #18 tab 08/18/19 08/22/19 Rx (IR)] Aspirin [Aspir 81] 81 mg PO DAILY 08/22/19 08/22/19 History Miscellaneous Medical Supply 1 each IH PM 08/22/19 08/22/19 History [Oxygen, Portable] <Bouchra King - 08/23/19 15:29> Allergies Allergy/AdvReac Type Severity Reaction Status Date / Time codeine [CODEINE] Allergy Unknown Verified 07/19/19 11:03 <Bouchra King - 08/23/19 15:29> Exam Vital signs and Labs for Last 24 Hours: Temp Pulse Resp BP Pulse Ox 98.5 F 60 17 145/66 H 97 08/23/19 08:00 08/23/19 08:25 08/23/19 08:00 08/23/19 08:00 08/23/19 08:00 Laboratory Results - last 24 hr 08/22/19 16:11: POC Glucose 126 H 08/22/19 20:26: POC Glucose 147 H 08/23/19 06:04: POC Glucose 112 H 08/23/19 11:09: POC Glucose 126 H <Bouchra King - 08/23/19 15:29> Temp Resp BP Pulse Ox 98.6 F 18 188/76 H 97 08/22/19 12:26 08/22/19 12:26 08/22/19 12:26 08/22/19 12:26 Laboratory Results - last 24 hr 08/22/19 13:49: WBC 11.5 H, RBC 4.14 L, Hgb 12.2, Hct 38.5, MCV 92.9, MCH 29.5, MCHC 31.7 L, RDW 12.8, Plt Count 403, MPV 7.8, Neut % (Auto) 65.9, Lymph % (Auto) 20.2, [place] % (Auto) 6.9, Eos % (Auto) 6.6, Baso % (Auto) 0.5, Neut # (Auto) 7.6, Lymph # (Auto) 2.3, [place] # (Auto) 0.8, Eos # (Auto) 0.8 H, Baso # (Auto) 0.1 08/22/19 13:49: Sodium 137, Potassium 4.0, Chloride 97 L, Carbon Dioxide 35 H, Anion Gap 9.0, BUN 22 H, Creatinine 0.84, Estimated Creat Clear 44, Estimated GFR 66, Est GFR ( Amer) 79, Glucose 156 H, Calcium 9.0, Total Bilirubin 0.5, AST 11 L, ALT 16, Alkaline Phosphatase 53, Total Protein 6.5, Albumin 2.9 L , Globulin 3.6 H, Albumin/Globulin Ratio 0.8 L 08/22/19 13:49: ESR 75 H 08/22/19 13:49: C-Reactive Protein 7.5 H <Amada Mayorga - 08/22/19 15:37> I & O for Last 24 hours: Intake & Output 08/21/19 08/22/19 08/23/19 08/24/19 11:59 11:59 11:59 11:59 Intake Total 1457 / 1457 360 / 360 Output Total 650 / 650 Balance 807 / 807 360 / 360 Weight 135 lb 2 oz <Bouchra King - 08/23/19 15:29> Intake & Output 08/19/19 08/20/19 08/21/19 08/22/19 23:59 23:59 23:59 23:59 Output Total 650 / 650 Balance -650 / -650 Weight 133 lb 6 oz <Amada Mayorga - 08/22/19 15:37> Microbiology Reports for the Last 24 Hours: Microbiology 08/22/19 Unknown Toe,Left Second Gram Stain - Final 08/22/19 Unknown Toe,Left Great Gram Stain - Final <Bouchra King - 08/23/19 15:29> - Constitutional no acute distress, obese, cooperative <Amada Mayorga - 08/22/19 17:32> - *Routine HEENT Exam Head: Present: normocephalic <Amada Mayorga - 08/22/19 17:32> Eye: Present: normal accommodation <Amada Mayorga - 08/22/19 17:32> ENT: Present: mucous membranes moist <Amada Mayorga - 08/22/19 17:32> - *Routine Neck Exam Present: full ROM. Absent: JVD <Amada Mayorga - 08/22/19 17:32> - Routine Chest/Breast/Axilla Exam Chest wall: Absent: tenderness <Amada Mayorga - 08/22/19 17:32> - *Routine Respiratory Exam Absent: respiratory distress <Amada Mayorga - 08/22/19 17:32> - *Routine Cardiovascular Exam Present: RRR <Amada Mayorga - 08/22/19 17:32> - *Routine Abdominal Exam Present: obese <Amada Mayorga - 08/22/19 17:32> - *Routine Extremities Exam Present: edema. Absent: normal capillary refill, calf tenderness <Amada Mayorga - 08/22/19 17:32> Comments: Left hallux and 2nd toe discolored, foot has some erythema distally along toes and top of foot then normal color more proximal to the ankle and leg. 2+ pedal edema, warm to touch. <Amada Mayorga - 08/22/19 17:32> - Routine Back/Spine/Pelvis Exam Back/Spine: Present: full ROM <Amada Mayorga - 08/22/19 17:32> - *Routine Skin Exam Present: erythema, lesions <Amada Mayorga - 08/22/19 17:32> Comments: see wound assessment.. <Amada Mayorga - 08/22/19 17:32> - *Routine Neurological Exam Present: alert, oriented X3 <Amada Mayorga - 08/22/19 17:32> - Routine Psychiatric Exam Present: normal affect <Amada Mayorga - 08/22/19 17:32> - Detailed Lower Extremity Exam Foot/Toes: Left erythema (hallux, 2nd toe), Left swelling (hallux, 2nd toe), Left tenderness (hallux, 2nd toe), Left wound (hallux, 2nd toe) <Amada Mayorga - 08/22/19 17:32> Top foot image: 1 - Left hallux wound measures (5.0 cm x 1.4 cm x 0.2cm) the left 2nd toe measures (2.0 cm x 1.0 cm x 0.2 cm) both areas had serosanguineous drainage expelled from them. The wounds were then cleaned with betadine again and dressed with betadine soaked adaptic and 4x4 gauze and covered with kerlix. <Amada Mayorga - 08/22/19 17:32> Results - Labs Result Diagrams: 08/22/19 13:49 08/22/19 13:49 <Bouchra King - 08/23/19 15:29> Labs: Abnormal lab results 08/22/19 08/22/19 08/23/19 Range/Units 16:11 20:26 06:04 POC Glucose 126 H 147 H 112 H (70-110) 08/23/19 Range/Units 11:09 POC Glucose 126 H (70-110) H & H 08/22/19 Range/Units 13:49 Hgb 12.2 (12.2-16.2) g/dL Hct 38.5 (37.0-47.0) % All other labs normal. <Bouchra King - 08/23/19 15:29> Abnormal lab results 08/22/19 08/22/19 08/22/19 Range/Units 13:49 13:49 13:49 WBC 11.5 H (4.8-10.8) K/mm3 RBC 4.14 L (4.20-5.40) M/mm3 MCHC 31.7 L (31.8-35.4) g/dL Eos # (Auto) 0.8 H (0.0-0.4) K/mm3 ESR 75 H (0-30) mm/hr Chloride 97 L (98-107) mmol/L Carbon Dioxide 35 H (21.0-32.0) mmol/L BUN 22 H (7-18) mg/dL Glucose 156 H (74-106) mg/dL AST 11 L (15-37) U/L C-Reactive Protein (0.0-0.9) mg/dL Albumin 2.9 L (3.4-5.0) gm/dL Globulin 3.6 H (1.3-3.2) gm/dl Albumin/Globulin Ratio 0.8 L (1.1-1.8) 08/22/19 Range/Units 13:49 WBC (4.8-10.8) K/mm3 RBC (4.20-5.40) M/mm3 MCHC (31.8-35.4) g/dL Eos # (Auto) (0.0-0.4) K/mm3 ESR (0-30) mm/hr Chloride (98-107) mmol/L Carbon Dioxide (21.0-32.0) mmol/L BUN (7-18) mg/dL Glucose (74-106) mg/dL AST (15-37) U/L C-Reactive Protein 7.5 H (0.0-0.9) mg/dL Albumin (3.4-5.0) gm/dL Globulin (1.3-3.2) gm/dl Albumin/Globulin Ratio (1.1-1.8) H & H 08/22/19 Range/Units 13:49 Hgb 12.2 (12.2-16.2) g/dL Hct 38.5 (37.0-47.0) % All other labs normal. <Amada Mayorga - 08/22/19 15:37> Assessment and Plan (1) Left foot infection Start date: 08/22/19 Current visit: Yes Status: Acute Category: Medical Code(s): L08.9 - Local infection of the skin and subcutaneous tissue, unspecified (2) S/P peripheral artery angioplasty with stent placement Current visit: No Status: Acute Category: Surgical Code(s): Z95.820 - Pe ripheral vascular angioplasty status with implants and grafts (3) CAD (coronary artery disease) Current visit: No Status: Chronic Qualifiers: Coronary Disease-Associated Artery/Lesion type: [place] artery [place] vs. transplanted heart: [place] heart Associated angina: without angina Qualified Code(s): I25.10 - Atherosclerotic heart disease of [place] coronary artery without angina pectoris Category: Medical Code(s): I25.10 - Atherosclerotic heart disease of [place] coronary artery without angina pectoris (4) COPD (chronic obstructive pulmonary disease) Current visit: No Status: Chronic Qualifiers: COPD type: unspecified COPD Qualified Code(s): J44.9 - Chronic obstructive pulmonary disease, unspecified Category: Medical Code(s): J44.9 - Chronic obstructive pulmonary disease, unspecified (5) Diabetes mellitus Current visit: No Status: Chronic Qualifiers: Diabetes mellitus type: type 2 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 termite treater use Diabetes mellitus complication status: without complication Qualified Code(s): E11.9 - Type 2 diabetes mellitus without complications Category: Medical Code(s): E11.9 - Type 2 diabetes mellitus without complications (6) HTN (hypertension) Current visit: No Status: Chronic Qualifiers: Hypertension type: essential hypertension Qualified Code(s): I10 - Esse ntial (primary) hypertension Category: Medical Code(s): I10 - Essential (primary) hypertension (7) Hyperlipemia Current visit: No Status: Chronic Qualifiers: Hyperlipidemia type: mixed hyperlipidemia Qualified Code(s): E78.2 - Mixed hyperlipidemia Category: Medical Code(s): E78.5 - Hyperlipidemia, unspecified (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 visit: No Status: Chronic Category: Medical Code(s): Z79.01 - FPC (current) use of anticoagulants (9) PAD (peripheral artery disease) Current visit: No Status: Chronic Category: Medical Code(s): I73.9 - Peripheral vascular disease, unspecified (10) PAF (paroxysmal atrial fibrillation) Current visit: No Status: Chronic Category: Medical Code(s): I48.0 - Paroxysmal atrial fibrillation (11) Pulmonary HTN Current visit: No Status: Chronic Category: Medical Code(s): I27.20 - Pulmonary hypertension, unspecified <Bouchra King - 08/23/19 15:29> (1) Left foot infection Start date: 08/22/19 Current visit: Yes Status: Acute Category: Medical Code(s): L08.9 - Local infection of the skin and subcutaneous tissue, unspecified (2) S/P peripheral artery angioplasty with stent placement Current visit: No Status: Acute Category: Surgical Code(s): Z95.820 - Peripheral vascular angioplasty status with implants and grafts (3) CAD (coronary artery disease) Current visit: No Status: Chronic Qualifiers: Coronary Disease-Associated Artery/Lesion type: [place] artery [place] vs. transplanted heart: [place] heart Associated angina: without angina Qualified Code(s): I25.10 - Atherosclerotic heart disease of [place] coronary artery wi thout angina pectoris Category: Medical Code(s): I25.10 - Atherosclerotic heart disease of [place] coronary artery without angina pectoris (4) COPD (chronic obstructive pulmonary disease) Current visit: No Status: Chronic Qualifiers: COPD type: unspecified COPD Qualified Code(s): J44.9 - Chronic obstructive pulmonary disease, unspecified Category: Medical Code(s): J44.9 - Chronic obstructive pulmonary disease, unspecified (5) Diabetes mellitus Current visit: No Status: Chronic Qualifiers: Diabetes mellitus type: type 2 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 termite treater use Diabetes mellitus complication status: without complication Qualified Code(s): E11.9 - Type 2 diabetes mellitus without complications Category: Medical Code(s): E11.9 - Type 2 diabetes mellitus without complications (6) HTN (hypertension) Current visit: No Status: Chronic Qualifiers: Hypertension type: essential hypertension Qualified Code(s): I10 - Essential (primary) hypertension Category: Medical Code(s): I10 - Essential (primary) hypertension (7) Hyperlipemia Current visit: No Status: Chronic Qualifiers: Hyperlipidemia type: mixed hyperlipidemia Qualified Code(s): E78.2 - Mixed hyperlipidemia Category: Medical Code(s): E78.5 - Hyperlipidemia, unspecified (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 Current visit: No Status: Chronic Category: Medical Code(s): Z79.01 - FPC (current) use of anticoagulants (9) PAD (peripheral artery disease) Current visit: No Status: Chronic Category: Medical Code(s): I73.9 - Peripheral vascular disease, unspecified (10) PAF (paroxysmal atrial fibrillation) Current visit: No Status: Chronic Category: Medical Code(s): I48.0 - Paroxysmal atrial fibrillation (11) Pulmonary HTN Current visit: No Status: Chronic Category: Medical Code(s): I27.20 - Pulmonary hypertension, unspecified <Amada Mayorga - 08/23/19 13:05> - Assessment and plan all Dx Assessment and Plan for all problems:: Physician Attestation I was contacted via Elba Vasquez to evaluate the patient's left hallux and second toe. Agree with physical exam and assessment and plan as above. I have read the office note that was documented by the staff and/or PERSONAL CARE AIDE and agree with the documentation. Plan to reevaluate patient 08/23/2019 and possibly perform blister derooding/debridement as needed. Explained the risk of surgery and would try to avoid amputation surgery if possible. <Bouchra King - 08/23/19 15:29> Plan : Left hallux wound measures (5.0 cm x 1.4 cm x 0.2cm) the left 2nd toe measures (2.0 cm x 1.0 cm x 0.2 cm) 1. Daily dressing changes to the wounds were then cleaned with betadine and dressed with betadine soaked adaptic and/or 4x4 gauze and then a dry 4x4 gauze and covered with kerlix. 2. Podiatry will be up to see the patient again in the morning and redress the sites. 3. Patient is to continue with her Iv Vancomycin antibiotics as per her PCP. 4. Wound cultures are pending. 5. Xrays was taken today and pending the results will adjust care appropriately. <Amada Mayorga - 08/22/19 17:32>
--- NOTE | 2019-08-23 07:34 | Pharmacy Consult Notes ---
[facility] Pharmacy VTE Monitoring - Patient Demographics Admission date: 08/22/19 Report Date: 08/23/19 Time: 07:34 Allergies/Adverse Reactions: Patient Allergies codeine [CODEINE] Allergy (Unknown, Verified 07/19/19 11:03) Height: 1.5 m Weight: 61.292 kg Patient Problems: Current Active Problems Left foot infection (Acute) - VTE Risk Labs: VTE Related Lab Results Hgb 12.2 g/dL (12.2-16.2) 08/22/19 13:49 Hct 38.5 % (37.0-47.0) 08/22/19 13:49 Plt Count 403 K/mm3 (142-424) 08/22/19 13:49 BUN 22 mg/dL (7-18) H 08/22/19 13:49 Creatinine 0.84 mg/dL (0.55-1.02) 08/22/19 13:49 Estimated Creat Clear 44 mL/min (50-200) 08/22/19 13:49 Was VTE Risk Assessment Performed: Yes VTE Score: 4 VTE Risk Level: Low Risk Clinical Trial Participant: No - Prophylaxis VTE Prophylaxis Ordered?: Yes Types of VTE Prophylaxis: TEDS Knee High, Pharmacological (ELIQUIS) Location of Applied Device: Not Applicable
--- NOTE | 2019-08-23 08:26 | Progress Note ---
Internal Medicine - PN: Subj *Date: 08/23/19 *Time: 08:23 Interval history: Patient's pain is controlled with Tylenol. She had debridement yesterday by Dr. King and she is having the toes debrided again today. Dr. King feels that it is luckily very superficial. The patient slept well last night and has been eating small amounts. Exam Vital signs and Labs for Last 24 Hours: Temp Pulse Resp BP Pulse Ox 98.2 F 60 17 160/67 H 96 08/23/19 04:00 08/23/19 04:00 08/23/19 04:00 08/23/19 04:00 08/23/19 04:00 Laboratory Results - last 24 hr 08/22/19 13:49: WBC 11.5 H, RBC 4.14 L, Hgb 12.2, Hct 38.5, MCV 92.9, MCH 29.5, MCHC 31.7 L, RDW 12.8, Plt Count 403, MPV 7.8, Neut % (Auto) 65.9, Lymph % (Auto) 20.2, Faulk % (Auto) 6.9, Eos % (Auto) 6.6, Baso % (Auto) 0.5, Neut # (Auto) 7.6, Lymph # (Auto) 2.3, Faulk # (Auto) 0.8, Eos # (Auto) 0.8 H, Baso # (Auto) 0.1 08/22/19 13:49: Sodium 137, Potassium 4.0, Chloride 97 L, Carbon Dioxide 35 H, Anion Gap 9.0, BUN 22 H, Creatinine 0.84, Estimated Creat Clear 44, Estimated GFR 66, Est GFR ( Amer) 79, Glucose 156 H, Calcium 9.0, Total Bilirubin 0.5, AST 11 L, ALT 16, Alkaline Phosphatase 53, Total Protein 6.5, Albumin 2.9 L , Globulin 3.6 H, Albumin/Globulin Ratio 0.8 L 08/22/19 13:49: ESR 75 H 08/22/19 13:49: C-Reactive Protein 7.5 H 08/22/19 16:11: POC Glucose 126 H 08/22/19 20:26: POC Glucose 147 H 08/23/19 06:04: POC Glucose 112 H I & O for Last 24 hours: Intake & Output 08/20/19 08/21/19 08/22/19 08/23/19 11:59 11:59 11:59 11:59 Intake Total 1277 / 1277 Output Total 650 / 650 Balance 627 / 627 Weight 135 lb 2 oz Microbiology Reports for the Last 24 Hours: Microbiology 08/22/19 Unknown Toe,Left Second Gram Stain - Final 08/22/19 Unknown Toe,Left Great Gram Stain - Final - Constitutional no acute distress - *Routine Respiratory Exam Present: CTA bilaterally - *Routine Cardiovascular Exam Present: RRR - *Routine Abdominal Exam Present: soft, normoactive bowel sounds. Absent: tenderness - *Routine Extremities Exam Present: edema (bilateral LE). Absent: cyanosis, clubbing - *Routine Skin Exam Present: erythema (improving on the left foot and toes, toes are currently being debrided), warm. Absent: rash - *Routine Neurological Exam Present: alert, oriented X3 Assessment and Plan (1) Left foot infection Start date: 08/22/19 Current visit: Yes Status: Acute Category: Medical Code(s): L08.9 - Local infection of the skin and subcutaneous tissue, unspecified (2) S/P peripheral artery angioplasty with stent placement Current visit: No Status: Acute Category: Surgical Code(s): Z95.820 - Peripheral vascular angioplasty status with implants and grafts (3) CAD (coronary artery disease) Current visit: No Status: Chronic Qualifiers: Coronary Disease-Associated Artery/Lesion type: [place] artery [place] vs. transplanted heart: [place] heart Associated angina: without angina Qualified Code(s): I25.10 - Atherosclerotic heart disease of [place] coronary artery without angina pectoris Category: Medical Code(s): I25.10 - Atherosclerotic heart disease of [place] coronary artery without angina pectoris (4) COPD (chronic obstructive pulmonary disease) Current visit: No Status: Chronic Qualifiers: COPD type: unspecified COPD Qualified Code(s): J44.9 - Chronic obstructive pulmonary disease, unspecified Category: Medical Code(s): J44.9 - Chronic obstructive pulmonary disease, unspecified (5) Diabetes mellitus Current visit: No Status: Chronic Qualifiers: Diabetes mellitus type: type 2 Diabetes mellitus fci insulin use: without terminal makeup operator use Diabetes mellitus complication status: without complication Qualified Code(s): E11.9 - Type 2 diabetes mellitus without complications Category: Medical Code(s): E11.9 - Type 2 diabetes mellitus without complications (6) HTN (hypertension) Current visit: No Status: Chronic Qualifiers: Hypertension type: essential hypertension Qualified Code(s): I10 - Essential (primary) hypertension Category: Medical Code(s): I10 - Essential (primary) hypertension (7) Hyperlipemia Current visit: No Status: Chronic Qualifiers: Hyperlipidemia type: mixed hyperlipidemia Qualified Code(s): E78.2 - Mixed hyperlipidemia Category: Medical Code(s): E78.5 - Hyperlipidemia, unspecified (8) [facility] current use of anticoagulant therapy Current visit: No Status: Chronic Category: Medical Code(s): Z79.01 - [facility] (current) use of anticoagulants (9) PAD (peripheral artery disease) Current visit: No Status: Chronic Category: Medical Code(s): I73.9 - Peripheral vascular disease, unspecified (10) PAF (paroxysmal atrial fibrillation) Current visit: No Status: Chronic Category: Medical Code(s): I48.0 - Paroxysmal atrial fibrillation (11) Pulmonary HTN Current visit: No Status: Chronic Category: Medical Code(s): I27.20 - Pulmonary hypertension, unspecified - Assessment and plan all Dx Assessment and Plan for all problems:: Dr. King feels the patient will need to be on continued IV antibiotics with dressing changes for at least the next 2 weeks. Will order PICC placement today. Still awaiting foot x-ray results.
--- NOTE | 2019-08-23 08:42 | Progress Note ---
Subjective Date: 08/23/19 Time: 08:05 Principal diagnosis: L toe cellulitis Interval history: Ms. Zamora is a 79-year-old female who was just recently discharged from [facility] last week after an admission for limb ischemia status post angioplasty of the left leg. During that admission, she had some discoloration of the great toe and the second toe on the left foot. Dr. King was consulted last week and wanted to observe the foot. The patient presented the office of [facility] today for follow-up on her hospital stay. Her toes were still discolored and were swollen and blistered. She had more erythema on the top of her foot and along the great and second digits. There was some drainage of the blisters on both toes. Her WBC was elevated in the office at 13.6. The case was discussed with Dr. King and the decision was mad e to admit the patient for IV vancomycin and debridement of the toes. Today the patient is resting comfortably in bed. She reports pain to the left knee controlled with Tylenol. She denies pain to the foot. She denies nausea vomiting, fever chills, shortness of breath chest pain. PN: Obj Ex Vital signs: Temp Pulse Resp BP Pulse Ox 98.5 F 60 17 145/66 H 97 08/23/19 08:00 08/23/19 08:25 08/23/19 08:00 08/23/19 08:00 08/23/19 08:00 - Constitutional no acute distress - Routine HEENT Exam Head: Present: normocephalic - Routine Neck Exam Present: supple - Routine Respiratory Exam Absent: respiratory distress - Routine Cardiovascular Exam Present: RRR - Routine Abdominal Exam Present: soft. Absent: guarding - Routine Extremities Exam Present: edema, pulses intact (Weakly palpable but present) - Detailed Lower Extremity Exam Top foot image: 1 - B/L LE edema. Left foot has 1+ pedal edema, erythema proximal hallux and 2nd toes and along top of foot. 1-2nd toes are dusky with purplish discoloration. No deep ulcers noted. Left hallux wound measures (5.0 cm x 1.4 cm x 0.2cm) the left 2nd toe measures (2.0 cm x 1.0 cm x 0.2 cm). Left hallux had little serosanguineous drainage from the dorsal toe tip blister. Both blisters superficial, did not probe thru sub q, deep fascia or to bone. - Routine Skin Exam Present: erythema (L foot) - Routine Neurological Exam Present: sensory deficit (light touch sensation decreased, at baseline), moving all extremities - Routine Psychiatric Exam Present: normal affect Progress Note: A&P (1) Left foot infection Status: Acute Current Visit: Yes (2) S/P peripheral artery angioplasty with stent placement Status: Acute Current Visit: No (3) CAD (coronary artery disease) Status: Chronic Current Visit: No (4) COPD (chronic obstructive pulmonary disease) Status: Chronic Current Visit: No (5) Diabetes mellitus Status: Chronic Current Visit: No (6) HTN (hypertension) Status: Chronic Current Visit: No (7) Hyperlipemia Status: Chronic Current Visit: No (8) 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 The wound was cleansed with betadine. Area was blistered superficially. Utilizing a 15 blade and forceps, the blister/superficial wound was sharply excisionally debrided through skin into sub q layer. Blistered loose skin, biofilm and fibrotic slough were debrided. The wound did not probe thru sub q layer, deep fascia and into the bone. There was positive drainage and purulence noted. Wound culture obtained yesterday 08/22/18. Franca-wound cellulitis noted, ascending cellulitis improved from yesterday. Non-palpable popliteal lymph nodes. Post-debridement the wound base was: 100% granular dusky with no deep opening. The wound measured: left hallux wound measures (5.0 cm x 1.4 cm x 0.2cm) the left 2nd toe measures (2.0 cm x 1.0 cm x 0.2 cm). 1. Dressing applied: betadine soaked xeroform, dry sterile dressing 2. Wound care instructions given: change dressing daily 3. PWB in post op shoe with DME assistance 4. Monitor wound culture. 5. IV antibiotics x 2-4 weeks for cellulitis, then likely transition to oral abx x 2 more weeks 6. Call the office immediately if pain increases or signs of infection worsen 7. Will continue to follow [facility] ORDERS: 1. Cleanse the left foot with either wound ladle cleaner or Betadine. 2. Daily dressing changes to the left toe wounds: clean with betadine, dress with betadine soaked xeroform or adaptic, betadine soaked 4x4 gauze and then a dry 4x4 gauze and covered with judah. 3. PICC, IV abx daily x 2-4 weeks
--- NOTE | 2019-08-24 08:19 | Progress Note ---
Internal Medicine - PN: Subj *Date: 08/24/19 *Time: 08:16 Interval history: Patient states she is feeling well this morning. Had PICC line placed yesterday and debridement of the toes by Dr. King. She slept well and is only eating a small amount. Exam Vital signs and Labs for Last 24 Hours: Temp Pulse Resp BP Pulse Ox 98.5 F 60 17 184/76 H 98 08/24/19 07:41 08/24/19 08:02 08/24/19 07:41 08/24/19 07:41 08/24/19 07:41 Laboratory Results - last 24 hr 08/23/19 11:09: POC Glucose 126 H 08/23/19 16:56: POC Glucose 112 H 08/23/19 20:28: POC Glucose 129 H 08/24/19 05:50: POC Glucose 102 I & O for Last 24 hours: Intake & Output 08/21/19 08/22/19 08/23/19 08/24/19 11:59 11:59 11:59 11:59 Intake Total 1457 / 1457 2447 / 2447 Output Total 650 / 650 Balance 807 / 807 2447 / 2447 Weight 135 lb 2 oz 136 lb 2 oz Microbiology Reports for the Last 24 Hours: Microbiology 08/22/19 Unknown Toe,Left Great Gram Stain - Final 08/22/19 Unknown Toe,Left Great Wound Culture - Preliminary NO GROWTH AFTER 24 HOURS 08/22/19 Unknown Toe,Left Second Gram Stain - Final 08/22/19 Unknown Toe,Left Second Wound Culture - Preliminary NO GROWTH AFTER 24 HOURS Radiology Reports for the Last 24 Hours: Foot x-ray - Possible osteomyelitis distal phalanx of the great toe - Constitutional no acute distress - *Routine Respiratory Exam Present: wheezes (faint) - *Routine Cardiovascular Exam Present: RRR - *Routine Abdominal Exam Present: soft, normoactive bowel sounds. Absent: tenderness - *Routine Extremities Exam Present: edema (bilateral LE's). Absent: cyanosis, clubbing - *Routine Skin Exam Present: erythema (improving on the dorsum of the foot, toes are wrapped with a dressing). Absent: rash - *Routine Neurological Exam Present: alert, oriented X3 Assessment and Plan (1) Left foot infection Start date: 08/22/19 Current visit: Yes Status: Acute Category: Medical Code(s): L08.9 - Local infection of the skin and subcutaneous tissue, unspecified (2) S/P peripheral artery angioplasty with stent placement Current visit: No Status: Acute Category: Surgical Code(s): Z95.820 - Peripheral vascular angioplasty status with implants and grafts (3) CAD (coronary artery disease) Current visit: No Status: Chronic Qualifiers: Coronary Disease-Associated Artery/Lesion type: [place] artery [place] vs. transplanted heart: [place] heart Associated angina: without angina Qualified Code(s): I25.10 - Atherosclerotic heart disease of [place] coronary artery without angina pectoris Category: Medical Code(s): I25.10 - Atherosclerotic heart disease of [place] coronary artery without angina pectoris (4) COPD (chronic obstructive pulmonary disease) Current visit: No Status: Chronic Qualifiers: COPD type: unspecified COPD Qualified Code(s): J44.9 - Chronic obstructive pulmonary disease, unspecified Category: Medical Code(s): J44.9 - Chronic obstructive pulmonary disease, unspecified (5) Diabetes mellitus Current visit: No Status: Chronic Qualifiers: Diabetes mellitus type: type 2 Diabetes mellitus terminal computer operator insulin use: without terminal computer operator use Diabetes mellitus complication status: without complication Qualified Code(s): E11.9 - Type 2 diabetes mellitus without complications Category: Medical Code(s): E11.9 - Type 2 diabetes mellitus without complications (6) HTN (hypertension) Current visit: No Status: Chronic Qualifiers: Hypertension type: essential hypertension Qualified Code(s): I10 - Essential (primary) hypertension Category: Medical Code(s): I10 - Essential (primary) hypertension (7) Hyperlipemia Current visit: No Status: Chronic Qualifiers: Hyperlipidemia type: mixed hyperlipidemia Qualified Code(s): E78.2 - Mixed hyperlipidemia Category: Medical Code(s): E78.5 - Hyperlipidemia, unspecified (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 Current visit: No Status: Chronic Category: Medical Code(s): Z79.01 - correction (current) use of anticoagulants (9) PAD (peripheral artery disease) Current visit: No Status: Chronic Category: Medical Code(s): I73.9 - Peripheral vascular disease, unspecified (10) PAF (paroxysmal atrial fibrillation) Current visit: No Status: Chronic Category: Medical Code(s): I48.0 - Paroxysmal atrial fibrillation (11) Pulmonary HTN Current visit: No Status: Chronic Category: Medical Code(s): I27.20 - Pulmonary hypertension, unspecified - Assessment and plan all Dx Assessment and Plan for all problems:: X-ray showed possible osteomyelitis of the toe. Patient is scheduled for an MRI today. We will continue IV antibiotics.
--- NOTE | 2019-08-24 11:09 | Progress Note ---
Subjective Date: 08/24/19 <Amada Mayorga - 08/24/19 11:39> Time: 08:30 <Amada Mayorga - 08/24/19 11:39> Principal diagnosis: L toe cellulitis <Amada Mayorga - 08/24/19 11:39> Interval history: Patient resting well in bed this am, she denies any pain in her toes. Patient is scheduled to have her MRI today for possible Osteomyelitis distal phalanx of the great toe. <Amada Mayorga - 08/24/19 11:39> PN: Obj Ex Vital signs: Temp Pulse Resp BP Pulse Ox 97.8 F 62 18 175/65 H 97 08/24/19 16:00 08/24/19 16:00 08/24/19 16:00 08/24/19 16:00 08/24/19 16:00 <Bouchra King - 08/30/19 18:11> Temp Pulse Resp BP Pulse Ox 98.5 F 60 17 184/76 H 98 08/24/19 07:41 08/24/19 08:02 08/24/19 07:41 08/24/19 07:41 08/24/19 07:41 <Amada Mayorga - 08/24/19 11:39> - Constitutional no acute distress, cooperative <Amada Mayorga - 08/24/19 11:39> - Routine HEENT Exam Head: Present: normocephalic <Amada Mayorga - 08/24/19 11:39> - Routine Neck Exam Present: full ROM <Amada Mayorga - 08/24/19 11:39> - Routine Chest/Breast/Axilla Exam Chest wall: Present: pacemaker <Amada Mayorga - 08/24/19 11:39> - Routine Respiratory Exam Absent: respiratory distress <Amada Mayorga - 08/24/19 11:39> - Routine Cardiovascular Exam Present: RRR <Amada Mayorga - 08/24/19 11:39> - Routine Abdominal Exam Present: obese <Amada Mayorga - 08/24/19 11:39> - Routine Extremities Exam Present: edema, normal capillary refill. Absent: calf tenderness <Amada Mayorga - 08/24/19 11:39> Comments: Patient still has some pedal edema to her left foot, much improved from yesterday. Palpable DP/ PT pulses this am. Toes were undressed and cleaned with betadine, no visible drainage noted, No debridement done this am, still some eschar tissue distally to the tip of hallux and 2nd digit, maceration noted to the hallux, will need to keep betadine daily dressings to help dry them up. <Amada Mayorga - 08/24/19 11:39> - Detailed Extremities Exam: Vascular Peripheral pulses: 1+ posterior tibialis (L), 1+ posterior tibialis (R), 1+ dorsalis pedis (L), 1+ dorsalis pedis (R) <Amada Mayorga - 08/24/19 11:39> - Detailed Lower Extremity Exam Top foot image: 1 - Left hallux wound measures (5.0 cm x 1.4 cm x 0.2cm) the left 2nd toe measures (2.0 cm x 1.0 cm x 0.2 cm) No drainage noted this am. *The wounds were then cleaned with betadine again and dressed with betadine soaked xeroform and betadine soaked 4x4 gauze, and then covered with dry 4x4 gauze and judah then with kerlix. <Amada Mayorga - 08/24/19 11:39> - Routine Back/Spine/Pelvis Exam Back/Spine: Present: full ROM <Amada Mayorga - 08/24/19 11:39> - Routine Skin Exam Present: erythema, wounds <Amada Mayorga - 08/24/19 11:39> - Routine Neurological Exam Present: oriented X3 <Amada Mayorga - 08/24/19 11:39> - Routine Psychiatric Exam Present: normal affect, normal thought process <Amada Mayorga - 08/24/19 11:39> Progress Note: A&P (1) Left foot infection Status: Acute (2) S/P peripheral artery angioplasty with stent placement Status: Acute (3) CAD (coronary artery disease) Status: Chronic (4) COPD (chronic obstructive pulmonary disease) Status: Chronic (5) Diabetes mellitus Status: Chronic (6) HTN (hypertension) Status: Chronic (7) Hyperlipemia Status: Chronic (8) long-term current use of anticoagulant therapy Status: Chronic (9) PAD (peripheral artery disease) Status: Chronic (10) PAF (paroxysmal atrial fibrillation) Status: Chronic (11) Pulmonary HTN Status: Chronic <Bouchra King - 08/30/19 18:11> (1) Left foot infection Start date: 08/23/19 Status: Acute (2) S/P peripheral artery angioplasty with stent placement Status: Acute (3) CAD (coronary artery disease) Status: Chronic (4) COPD (chronic obstructive pulmonary disease) Status: Chronic (5) Diabetes mellitus Status: Chronic (6) HTN (hypertension) Status: Chronic (7) Hyperlipemia Status: Chronic (8) long-term current use of anticoagulant therapy Status: Chronic (9) PAD (peripheral artery disease) Status: Chronic (10) PAF (paroxysmal atrial fibrillation) Status: Chronic (11) Pulmonary HTN Status: Chronic <Amada Mayorga - 08/30/19 18:10> Assessment and Plan for All Diagnoses:: Physician Attestation I have read the office note that was documented by the staff and/or BUNDLE COLLECTOR and agree with the documentation. <Bouchra King - 08/30/19 18:11> We have explained the risk of surgery and would try to avoid amputation surgery if possible with the patient and will determine what to do next according to her MRI results. Plan : Left hallux wound measures (5.0 cm x 1.4 cm x 0.2cm) the left 2nd toe measures (2.0 cm x 1.0 cm x 0.2 cm) 1. Daily dressing changes to the wounds were then cleaned with betadine and dressed with betadine soaked adaptic or Xeroform and soaked 4x4 gauze and then a dry 4x4 gauze to cover the wet dressings and covered with judah and kerlix to keep in place. 2. Podiatry saw the patient this morning and redressed the sites. This will need to be done by nursing daily and over the weekend until patient is discharged for home. 3. Patient is to continue with her Iv Vancomycin antibiotics as per her PCP. 4. Wound cultures preliminary are no growth in 24 hours the Final results are still pending. 5. MRI will be done today and pending the results will adjust care appropriately. 6. Still no plans for surgery for now due to decreased blood flow. 7. Picc IV Vancomycin x 6-8 weeks (instead of 2 weeks). 8. Patient will need HHC or Infusion as well as daily dressing changes to be set up prior to her discharge for home. <Amada Mayorga - 08/24/19 11:39>
--- NOTE | 2019-08-24 13:37 | Pharmacy Consult Notes ---
- Pharmacy Consult Date: 08/24/19 Time: 13:35 Referring provider: DR. JARRELL Reason for Consult:: VANCOMYCIN TROUGH LEVEL Allergies and ADEs:: Allergies Allergy/AdvReac Type Severity Reaction Status Date / Time codeine [CODEINE] Allergy Unknown Verified 07/19/19 11:03 Home Medications:: Home Medications Medication Instructions Recorded Confirmed Type Pravastatin Sodium [Pravachol 40mg 40 mg PO HS 03/31/18 08/22/19 History Tablet] gabapentin 100 mg capsule 100 mg PO TID cap 07/13/18 08/22/19 History digoxin 125 mcg (0.125 mg) tablet 0.125 mg PO DAILY #90 tab 09/01/18 08/22/19 Rx apixaban 5 mg tablet 5 mg PO BID #60 tab 09/18/18 08/22/19 Rx glimepiride 2 mg tablet 2 mg PO DAILY 11/23/18 08/22/19 History amiodarone 200 mg tablet 200 mg PO BID tab 03/30/19 08/22/19 History omeprazole 40 mg capsule,delayed 40 mg PO DAILYP PRN 03/30/19 08/23/19 History release clopidogrel 75 mg tablet 75 mg PO DAILY #30 tab 06/12/19 08/22/19 Rx Budesonide/Formoterol Fumarate 2 puffs IH BID 08/16/19 08/22/19 History [Symbicort 160-4.5 Mcg Inhaler] Furosemide [Furosemide 40MG tAB] 40 mg PO Q48H 08/16/19 08/22/19 History Losartan Potassium [Cozaar 50mg 50 mg PO DAILY 08/16/19 08/22/19 History Tablets] Furosemide [Furosemide 20mg Tab] 20 mg PO Q48H 08/17/19 08/22/19 History Medical Supply, Miscellaneous 1 each IH CONT #1 device 08/18/19 08/23/19 Rx [Oxygen Concentrator] Metoprolol Tartrate 25 mg PO BID 08/18/19 08/22/19 History Oxycodone HCl [Oxycodone 5mg tab 5 mg PO Q4HP PRN #18 tab 08/18/19 08/22/19 Rx (IR)] Aspirin [Aspir 81] 81 mg PO DAILY 08/22/19 08/22/19 History Miscellaneous Medical Supply 1 each IH PM 08/22/19 08/22/19 History [Oxygen, Portable] Height: 1.5 m Weight: 61.745 kg Laboratory Results:: Laboratory Results - last 24 hr 08/23/19 16:56: POC Glucose 112 H 08/23/19 20:28: POC Glucose 129 H 08/24/19 05:50: POC Glucose 102 08/24/19 12:28: POC Glucose 114 H 08/24/19 12:30: Vancomycin Trough 7.9 L Medical History: Reports:: Asthma, Atherosclerotic Heart Disease, Atrial Fibri llation, Congestive Heart Failure, Chronic Obstructive Pulmonary Disease (COPD), Coronary Artery Disease, Diabetes Mellitus Type 2, Hyperlipidemia, Hypertension, Peripheral Artery Disease, Renal Insufficiency Denies:: Cancer, Diabetes Mellitus Type 1, Internal Pacemaker, MRSA, Seizures Assessment and Plan (1) Left foot infection Start date: 08/23/19 Current visit: Yes Status: Acute Category: Medical Code(s): L08.9 - Local infection of the skin and subcutaneous tissue, unspecified (2) S/P peripheral artery angioplasty with stent placement Current visit: No Status: Acute Category: Surgical Code(s): Z95.820 - Peripheral vascular angioplasty status with implants and grafts (3) CAD (coronary artery disease) Current visit: No Status: Chronic Qualifiers: Coronary Disease-Associated Artery/Lesion type: [place] artery [place] vs. transplanted heart: [place] heart Associated angina: without angina Qualified Code(s): I25.10 - Atherosclerotic heart disease of [place] coronary artery without angina pectoris Category: Medical Code(s): I25.10 - Atherosclerotic heart disease of [place] coronary artery without angina pectoris (4) COPD (chronic obstructive pulmonary disease) Current visit: No Status: Chronic Qualifiers: COPD type: unspecified COPD Qualified Code(s): J44.9 - Chronic obstructive pulmonary disease, unspecified Category: Medical Code(s): J44.9 - Chronic obstructive pulmonary disease, unspecified (5) Diabetes mellitus Current visit: No Status: Chronic Qualifiers: Diabetes mellitus type: type 2 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 care home use Diabetes mellitus complication status: without complication Qualified Code(s): E11.9 - Type 2 diabetes mellitus without complications Category: Medical Code(s): E11.9 - Type 2 diabetes mellitus without complications (6) HTN (hypertension) Current visit: No Status: Chronic Qualifiers: Hypertension type: essential hypertension Qualified Code(s): I10 - Essent ial (primary) hypertension Category: Medical Code(s): I10 - Essential (primary) hypertension (7) Hyperlipemia Current visit: No Status: Chronic Qualifiers: Hyperlipidemia type: mixed hyperlipidemia Qualified Code(s): E78.2 - Mixed hyperlipidemia Category: Medical Code(s): E78.5 - Hyperlipidemia, unspecified (8) assisted current use of anticoagulant therapy Current visit: No Status: Chronic Category: Medical Code(s): Z79.01 - assisted (current) use of anticoagulants (9) PAD (peripheral artery disease) Current visit: No Status: Chronic Category: Medical Code(s): I73.9 - Peripheral vascular disease, unspecified (10) PAF (paroxysmal atrial fibrillation) Current visit: No Status: Chronic Category: Medical Code(s): I48.0 - Paroxysmal atrial fibrillation (11) Pulmonary HTN Current visit: No Status: Chronic Category: Medical Code(s): I27.20 - Pulmonary hypertension, unspecified - Assessment and plan all Dx Assessment and Plan for all problems:: BASED ON PATIENT FACTORS AND VANCOMYCIN TROUGH LEVEL, RECOMMEND INCREASING DOSE TO VANCOMYCIN 1250 MG IV Q24H. PATIENT IS BEING DISCHARGED TODAY AND CONTINUING VANCOMYCIN IN OUTPATIENT INFUSION. PHARMACY WILL CONTINUE TO FOLLOW LABS AND TROUGH LEVEL AN OUTPATIENT.
--- NOTE | 2019-08-27 21:23 | Discharge Summary ---
General - General Admission date:: 08/22/19 Discharge date: 08/24/19 HPI HPI: Ms. Zamora is a 79-year-old female who was just recently discharged from [facility] last week after an admission for limb ischemia status post angioplasty of the left leg. During that admission, she had some discoloration of the great toe and the second toe on the left foot. Dr. King was consulted last week and wanted to observe the foot. The patient presented the office of [facility] today for follow-up on her hospital stay. Her toes were still discolored and were swollen and blistered. She had more erythema on the top of her foot and along the great and second digits. There was some drainage of the blisters on both toes. Her WBC was elevated in the office at 13.6. The case was discussed with Dr. King and the decision was m gen to admit the patient for IV vancomycin and debridement of the toes. Hospital Course Hospital Course: The patient was started on IV vancomycin and Dr. King performed a debridement of her toes. An x-ray was ordered of her foot as well. Dr. Lancaster felt she would need daily dressing changes and continued IV vancomycin on an outpatient basis. The patient tolerated the debridement with minimal pain that was controlled with Tylenol. A PICC line was placed in preparation for outpatient IV antibiotics. The x-ray of her foot showed possible osteomyelitis of the distal phalanx of the great toe. Dr. King ordered an MRI. The MRI showed osteomyelitis with cellulitis of the distal phalanx of the first and second toes. Dr. King recommended continued dressing changes and IV antibiotics for 6 to 8 weeks via a PICC line with close follow-up. The patient's wound and blood cultures showed no growth. She was stable to be discharged home on outpat ient IV vancomycin for 6 to 8 weeks and daily dressing changes at [facility]. She will follow-up with Dr. King as well as with Dr. Montanez. Objective Vital signs: Temp Pulse Resp BP Pulse Ox 97.8 F 62 18 175/65 H 97 08/24/19 16:00 08/24/19 16:00 08/24/19 16:00 08/24/19 16:00 08/24/19 16:00 Narrative: - Constitutional no acute distress - *Routine HEENT Exam Head: Present: normocephalic Eye: Present: EOMI, PERRL ENT: Present: mucous membranes moist - *Routine Neck Exam Present: supple. Absent: lymphadenopathy - *Routine Respiratory Exam Present: CTA bilaterally - *Routine Cardiovascular Exam Present: RRR - *Routine Abdominal Exam Present: soft, normoactive bowel sounds. Absent: tenderness - *Routine Extremities Exam Present: edema (bilateral LE's). Absent: cyanosis, clubbing - *Routine Skin Exam Present: cyanosis (great toe and 2nd digit), erythema (of the top of the entire foot and along the left great toe and left 2nd digit, there is blistering present with swelling and drainage) - *Routine Neurological Exam Present: alert, oriented X3 DS: Diagnosis - Discharge Diagnosis (1) Osteomyelitis of toe Status: Acute (2) Left foot infection Status: Acute (3) S/P peripheral artery angioplasty with stent placement Status: Acute (4) CAD (coronary artery disease) Status: Chronic (5) COPD (chronic obstructive pulmonary disease) Status: Chronic (6) Diabetes mellitus Status: Chronic (7) HTN (hypertension) Status: Chronic (8) Hyperlipemia Status: Chronic (9) skilled nursing current use of anticoagulant therapy Status: Chronic (10) PAD (peripheral artery disease) Status: Chronic (11) PAF (paroxysmal atrial fibrillation) Status: Chronic (12) Pulmonary HTN Status: Chronic Discharge Plan - Patient Discharge Instructions ACTIVITY: Limited activity DIET: continue same diet Additional Instructions: return tomorrow around 1pm for dose of antibiotics and dressing change Patient Instructions: How to Take Care of Your Feet If You Have Diabetes, Type 2 Diabetes, Diabetic Neuropathy, Peripheral Artery Disease, DI for Hypoglycemia, Peripherally Inserted Central Catheter - Follow up Plan Follow up with: Alexis Montanez MD [Staff Physician] - 08/27/19 1:30 pm Bouchra King DPM [Staff Physician] - 1 week (please call tuesday for a one week follow up appointment) Disposition: Home, Self-Fdc Medications: Home Medications Medication Instructions Recorded Confirmed Type Pravastatin Sodium [Pravachol 40mg 40 mg PO HS 03/31/18 08/27/19 History Tablet] gabapentin 100 mg capsule 100 mg PO TID cap 07/13/18 08/27/19 History apixaban 5 mg tablet 5 mg PO BID #60 tab 09/18/18 08/27/19 Rx glimepiride 2 mg tablet 2 mg PO DAILY 11/23/18 08/27/19 History amiodarone 200 mg tablet 200 mg PO BID tab 03/30/19 08/27/19 History omeprazole 40 mg capsule,delayed 40 mg PO DAILYP PRN 03/30/19 08/27/19 History release clopidogrel 75 mg tablet 75 mg PO DAILY #30 tab 06/12/19 08/27/19 Rx Budesonide/Formoterol Fumarate 2 puffs IH BID 08/16/19 08/27/19 History [Symbicort 160-4.5 Mcg Inhaler] Furosemide [Furosemide 40MG tAB] 40 mg PO Q48H 08/16/19 08/27/19 History Furosemide [Furosemide 20mg Tab] 20 mg PO Q48H 08/17/19 08/27/19 History Metoprolol Tartrate 25 mg PO BID 08/18/19 08/27/19 History Oxycodone HCl [Oxycodone 5mg tab 5 mg PO Q4HP PRN #18 tab 08/18/19 08/27/19 Rx (IR)] Aspirin [Aspir 81] 81 mg PO DAILY 08/22/19 08/27/19 History Miscellaneous Medical Supply 1 each IH PM 08/22/19 08/27/19 History [Oxygen, Portable] Medical Supply, Miscellaneous 1 each IH CONT 08/26/19 08/27/19 History [Oxygen Concentrator] Digoxin 125 mcg PO DAILY 08/27/19 08/27/19 History losartan 50 mg tablet 50 mg PO DAILY #30 tab 08/27/19 08/27/19 Rx Prescriptions/Medication Reconciliation: Continued gabapentin 100 mg capsule 100 mg PO TID cap glimepiride 2 mg tablet 2 mg PO DAILY omeprazole 40 mg capsule,delayed release 40 mg PO DAILYP PRN PRN Reason: GERD apixaban 5 mg tablet 5 mg PO BID #60 tab amiodarone 200 mg tablet 200 mg PO BID tab clopidogrel 75 mg tablet 75 mg PO DAILY #30 tab Furosemide [Furosemide 40MG tAB] 40 mg PO Q48H Oxycodone HCl [Oxycodone 5mg tab (IR)] 5 mg PO Q4HP PRN #18 tab PRN Reason: Severe Pain Miscellaneous Medical Supply [Oxygen, Portable] 1 each IH PM Pravastatin Sodium [Pravachol 40mg Tablet] 40 mg PO HS Budesonide/Formoterol Fumarate [Symbicort 160-4.5 Mcg Inhaler] 2 puffs IH BID Furosemide [Furosemide 20mg Tab] 20 mg PO Q48H Metoprolol Tartrate 25 mg PO BID Aspirin [Aspir 81] 81 mg PO DAILY No Action losartan 50 mg tablet 50 mg PO DAILY #30 tab Digoxin 125 mcg PO DAILY Medical Supply, Miscellaneous [Oxygen Concentrator] 1 each IH CONT - Problem Reconciliation Problems Reviewed?: Yes
== END 2019-08-24 16:45 | disposition home or self-care (01) ==
LOC: 2ND
PROVIDERS: ADMIT Family Medicine; ATTEND Family Medicine
DX: I25.10 Atherosclerotic heart disease of native coronary artery without angina pectoris; Z95.820 Peripheral vascular angioplasty status with implants and grafts; E11.9 Type 2 diabetes mellitus without complications; I48.0 Paroxysmal atrial fibrillation; Z79.899 Other long term (current) drug therapy; I11.0 Hypertensive heart disease with heart failure; Z79.01 Long term (current) use of anticoagulants; I70.245 Atherosclerosis of native arteries of left leg with ulceration of other part of foot; I27.20 Pulmonary hypertension, unspecified; I50.9 Heart failure, unspecified
CPT/HCPCS: 11042; 36415; 36569; 71010; 71045; 73630; 73720; 80053; 80202; 82962; 85025; 85651; 86140; 87040; 87070; 87205; A9576; C1751; G0378; J3370

== ENCOUNTER 2019-08-25 12:53 | Outpatient (CLI) | payer MEDICARE, SELFPAY ==
[2019-08-25 13:15] VITALS: BP 114/59; PULSE 62; RESP 18; TEMP 36.7; O2SAT 97
[2019-08-25 15:20] VITALS: BP 162/68; PULSE 58; RESP 18; TEMP 37.2; O2SAT 98
== END 2019-08-25 15:20 | disposition home or self-care (01) ==
LOC: INF 12:54
PROVIDERS: PCP Family Medicine; Visit Provider Podiatrist
DX: L08.9 Local infection of the skin and subcutaneous tissue, unspecified (principal)
CPT/HCPCS: 96365; 96366; J3370

== ENCOUNTER 2019-08-26 13:02 | Outpatient (CLI) | payer MEDICARE, SELFPAY ==
[2019-08-26 13:21] VITALS: BP 90/46; PULSE 52; RESP 16; TEMP 36.6; O2SAT 98
[2019-08-26 16:11] VITALS: BP 180/76; PULSE 58; RESP 18; TEMP 36.8; O2SAT 97
== END 2019-08-26 16:13 | disposition home or self-care (01) ==
LOC: INF 13:03
PROVIDERS: PCP Family Medicine; Visit Provider Podiatrist
DX: L08.9 Local infection of the skin and subcutaneous tissue, unspecified (principal)
CPT/HCPCS: 96365; 96366; G0463; J3370

== ENCOUNTER 2019-08-27 13:00 | Outpatient (CLI) | payer MEDICARE, SELFPAY ==
[2019-08-27 13:03] VITALS: BMI 28.0
[2019-08-27 13:36] LABS: Blood Urea Nitrogen 15 mg/dL (7-18); Calcium 8.3 mg/dL (8.5-10.1); Carbon Dioxide 28 mmol/L (21.0-32.0); Chloride 102 mmol/L (98-107); Creatinine Clearance Estimated 46 mL/min (50-200); Creatinine,Serum 0.95 mg/dL (0.55-1.02); Estimated Glomerular Filt Rate 57 ml/min (>60); GFR (African American) 69 ML/MIN (>60); Glucose 125 mg/dL (74-106); Sodium 137 mmol/L (136-145); Vancomycin,Trough 14.7 mcg/ml (10.0-20.0)
--- NOTE | 2019-08-27 13:50 | HMH.PHACONS ---
- Pharmacy Consult Date: 08/27/19 Time: 13:50 Referring provider: DR. WALL Reason for Consult:: VANCOMYCIN TROUGH LEVEL Allergies and ADEs:: Allergies Allergy/AdvReac Type Severity Reaction Status Date / Time codeine [CODEINE] Allergy Unknown Verified 07/19/19 11:03 Home Medications:: Home Medications Medication Instructions Recorded Confirmed Type Pravastatin Sodium [Pravachol 40mg 40 mg PO HS 03/31/18 08/26/19 History Tablet] gabapentin 100 mg capsule 100 mg PO TID cap 07/13/18 08/26/19 History apixaban 5 mg tablet 5 mg PO BID #60 tab 09/18/18 08/26/19 Rx glimepiride 2 mg tablet 2 mg PO DAILY 11/23/18 08/26/19 History amiodarone 200 mg tablet 200 mg PO BID tab 03/30/19 08/26/19 History omeprazole 40 mg capsule,delayed 40 mg PO DAILYP PRN 03/30/19 08/26/19 History release clopidogrel 75 mg tablet 75 mg PO DAILY #30 tab 06/12/19 08/26/19 Rx Budesonide/Formoterol Fumarate 2 puffs IH BID 08/16/19 08/26/19 History [Symbicort 160-4.5 Mcg Inhaler] Furosemide [Furosemide 40MG tAB] 40 mg PO Q48H 08/16/19 08/26/19 History Furosemide [Furosemide 20mg Tab] 20 mg PO Q48H 08/17/19 08/26/19 History Metoprolol Tartrate 25 mg PO BID 08/18/19 08/26/19 History Oxycodone HCl [Oxycodone 5mg tab 5 mg PO Q4HP PRN #18 tab 08/18/19 08/26/19 Rx (IR)] Aspirin [Aspir 81] 81 mg PO DAILY 08/22/19 08/26/19 History Miscellaneous Medical Supply 1 each IH PM 08/22/19 08/26/19 History [Oxygen, Portable] Medical Supply, Miscellaneous 1 each IH CONT 08/26/19 08/26/19 History [Oxygen Concentrator] digoxin 125 mcg (0.125 mg) tablet 125 mcg PO DAILY #90 tab 08/27/19 Rx losartan 50 mg tablet 50 mg PO DAILY #30 tab 08/27/19 Rx Height: 1.5 m Weight: 63.049 kg Laboratory Results:: Laboratory Results - last 24 hr 08/27/19 13:00: Sodium 137, Potassium 4.0, Chloride 102, Carbon Dioxide 28, Anion Gap 11.0, BUN 15, Creatinine 0.95, Estimated Creat Clear 46, Estimated GFR 57 L, Est GFR ( Amer) 69, Glucose 125 H, Calcium 8.3 L, Vancomycin Trough 14.7 Medical History: Reports:: Asthma, Atherosclerotic Heart Disease, Atrial Fibrillation, Congestive Heart Failure, Chronic Obstructive Pulmonary Disease (COPD), Coronary Artery Disease, Diabetes Mellitus Type 2, Hyperlipidemia, Hypertension, Peripheral Artery Disease, Renal Insufficiency Denies:: Cancer, Diabetes Mellitus Type 1, Internal Pacemaker, MRSA, Seizures Assessment and Plan - Assessment and plan all Dx Assessment and Plan for all problems:: BASED ON PATIENT FACTORS AND VANCOMYCIN TROUGH LEVEL, RECOMMEND CONTINUING VANCOMYCIN 1250 MG IV Q24H. PHARMACY WILL CONTINUE TO MONITOR DAILY AND ADJUST APPROPRIATE.
[2019-08-27 14:12] VITALS: BP 125/45; PULSE 52; RESP 18; TEMP 36.6; O2SAT 97
[2019-08-27 14:45] VITALS: BP 115/54; PULSE 59; RESP 18; TEMP 36.6; O2SAT 98
[2019-08-27 15:15] VITALS: BP 129/58; PULSE 62; RESP 16; TEMP 36.7; O2SAT 97
[2019-08-27 15:45] VITALS: BP 121/59; PULSE 58; RESP 16
[2019-08-27 16:20] VITALS: BP 132/61; PULSE 59; RESP 18; TEMP 36.6; O2SAT 96
== END 2019-08-27 16:20 | disposition home or self-care (01) ==
LOC: INF 13:00
PROVIDERS: Visit Provider Podiatrist
DX: I99.8 Other disorder of circulatory system (principal); L08.9 Local infection of the skin and subcutaneous tissue, unspecified
CPT/HCPCS: 80048; 80202; 96365; 96366; G0463; J3370

== ENCOUNTER 2019-08-28 11:14 | Outpatient (CLI) | payer MEDICARE, SELFPAY ==
[2019-08-28 11:28] VITALS: BP 172/68; PULSE 51; RESP 18; O2SAT 91
[2019-08-28 13:50] VITALS: BP 185/83; PULSE 52; RESP 18
== END 2019-08-28 13:50 | disposition home or self-care (01) ==
LOC: INF 11:14
PROVIDERS: Visit Provider Podiatrist
DX: L08.9 Local infection of the skin and subcutaneous tissue, unspecified (principal)
CPT/HCPCS: 96365; 96366; G0463; J3370

== ENCOUNTER 2019-08-29 11:14 | Outpatient (CLI) | payer MEDICARE, SELFPAY ==
[2019-08-29 11:30] VITALS: BP 150/53; PULSE 49; RESP 18
[2019-08-29 13:30] VITALS: BP 185/66; PULSE 49; RESP 18
== END 2019-08-29 13:40 | disposition home or self-care (01) ==
LOC: INF 11:14
PROVIDERS: Visit Provider Podiatrist
DX: L08.9 Local infection of the skin and subcutaneous tissue, unspecified (principal); M79.672 Pain in left foot
CPT/HCPCS: 96365; 96366; G0463; J3370

== ENCOUNTER 2019-08-30 10:45 | Outpatient (CLI) | payer MEDICARE, SELFPAY ==
[2019-08-30 11:20] VITALS: BP 107/55; PULSE 49; RESP 18; O2SAT 99
[2019-08-30 11:50] VITALS: BP 115/67; PULSE 50; RESP 18
[2019-08-30 12:20] VITALS: BP 136/57; PULSE 49; RESP 16
[2019-08-30 12:50] VITALS: BP 152/70; PULSE 50; RESP 16
[2019-08-30 13:20] VITALS: BP 147/55; PULSE 49; RESP 18
--- NOTE | 2019-08-30 15:46 | PC.NURSE ---
CLEANED LEFT GREAT TOE AND 2ND TOE WITH BETADINE. APPLIED BETADINE SOAKED ADAPTIC DRESSING FOLLOWED BY BETADINE SOAKED 4X4 THEN COVERED WITH DRY 4X4 GAUZE AND WRAPPED WITH RACHANA.
== END 2019-08-30 13:30 | disposition home or self-care (01) ==
LOC: INF 10:56
PROVIDERS: Visit Provider Podiatrist
DX: L08.9 Local infection of the skin and subcutaneous tissue, unspecified (principal); M79.672 Pain in left foot
CPT/HCPCS: 96365; 96366; G0463; J3370

== ENCOUNTER 2019-08-31 11:06 | Outpatient (CLI) | payer MEDICARE, SELFPAY ==
[2019-08-31 11:10] VITALS: BMI 28.0
[2019-08-31 11:34] LABS: Anion Gap 8.7 mEq/L (5-15); Blood Urea Nitrogen 19 mg/dL (7-18); Calcium 8.9 mg/dL (8.5-10.1); Carbon Dioxide 30 mmol/L (21.0-32.0); Chloride 104 mmol/L (98-107); Creatinine Clearance Estimated 45 mL/min (50-200); Creatinine,Serum 1.03 mg/dL (0.55-1.02); Estimated Glomerular Filt Rate 52 ml/min (>60); GFR (African American) 63 ML/MIN (>60); Glucose 89 mg/dL (74-106); Potassium 3.7 mmoL/L (3.5-5.1); Sodium 139 mmol/L (136-145)
[2019-08-31 11:36] LABS: Vancomycin,Trough 19.3 mcg/ml (10.0-20.0)
--- NOTE | 2019-08-31 11:45 | HMH.PHACONS ---
- Pharmacy Consult Date: 08/31/19 Time: 11:45 Referring provider: DR. WALL Reason for Consult:: VANCOMYCIN TROUGH LEVEL AND DOSE CHANGE Allergies and ADEs:: Allergies Allergy/AdvReac Type Severity Reaction Status Date / Time codeine [CODEINE] Allergy Unknown Verified 08/30/19 09:35 Home Medications:: Home Medications Medication Instructions Recorded Confirmed Type Pravastatin Sodium [Pravachol 40mg 40 mg PO HS 03/31/18 08/30/19 History Tablet] gabapentin 100 mg capsule 100 mg PO TID cap 07/13/18 08/30/19 History apixaban 5 mg tablet 5 mg PO BID #60 tab 09/18/18 08/30/19 Rx glimepiride 2 mg tablet 2 mg PO DAILY 11/23/18 08/30/19 History amiodarone 200 mg tablet 200 mg PO BID tab 03/30/19 08/30/19 History omeprazole 40 mg capsule,delayed 40 mg PO DAILYP PRN 03/30/19 08/30/19 History release clopidogrel 75 mg tablet 75 mg PO DAILY #30 tab 06/12/19 08/30/19 Rx Budesonide/Formoterol Fumarate 2 puffs IH BID 08/16/19 08/30/19 History [Symbicort 160-4.5 Mcg Inhaler] Furosemide [Furosemide 40MG tAB] 40 mg PO Q48H 08/16/19 08/30/19 History Furosemide [Furosemide 20mg Tab] 20 mg PO Q48H 08/17/19 08/30/19 History Metoprolol Tartrate 25 mg PO BID 08/18/19 08/30/19 History Aspirin [Aspir 81] 81 mg PO DAILY 08/22/19 08/30/19 History Digoxin 125 mcg PO DAILY 08/27/19 08/30/19 History losartan 50 mg tablet 50 mg PO DAILY #30 tab 08/27/19 08/30/19 Rx Height: 1.5 m Weight: 63.049 kg Laboratory Results:: Laboratory Results - last 24 hr 08/31/19 11:15: Sodium 139, Potassium 3.7, Chloride 104, Carbon Dioxide 30, Anion Gap 8.7, BUN 19 H, Creatinine 1.03 H, Estimated Creat Clear 45, Estimated GFR 52 L, Est GFR ( Amer) 63, Glucose 89, Calcium 8.9 08/31/19 11:15: Vancomycin Trough 19.3 Medical History: Reports:: Asthma, Atherosclerotic Heart Disease, Atrial Fibrillation, Congestive Heart Failure, Chronic Obstructive Pulmonary Disease (COPD), Coronary Artery Disease, Diabetes Mellitus Type 2, Heart Murmur, Hyperlipidemia, Hypertension, Peripheral Artery Disease, Renal Insufficiency Denies:: Cancer, Diabetes Mellitus Type 1, Internal Pacemaker, MRSA, Seizures Assessment and Plan - Assessment and plan all Dx Assessment and Plan for all problems:: BASED ON TROUGH LEVEL OF 19.3 AND PATIENT FACTORS, RECOMMEND DECREASING VANCOMYCIN DOSE TO 1,00MG Q24H. WILL OBTAIN TROUGH LEVEL PRIOR TO DOSE ON 09/03/19 AND ADJUST DOSE APPROPRIATE AT THAT POINT. -CANDE MOSERD
[2019-08-31 12:00] VITALS: BP 133/56; PULSE 50; RESP 18
[2019-08-31 14:05] VITALS: BP 188/80; PULSE 53; RESP 18
== END 2019-08-31 14:05 | disposition home or self-care (01) ==
PROVIDERS: PCP Family Medicine; Visit Provider Podiatrist
DX: L08.9 Local infection of the skin and subcutaneous tissue, unspecified (principal)
CPT/HCPCS: 80048; 80202; 96365; 96366; G0463; J3370

== ENCOUNTER → 2019-09-01 11:02 | Outpatient (CLI) | payer MEDICARE, SELFPAY ==
[2019-09-01 11:12] VITALS: BP 124/53; PULSE 53; RESP 16; TEMP 36.8; O2SAT 98; BMI 28.0
[2019-09-01 14:21] VITALS: BP 169/86; PULSE 57; RESP 18; TEMP 36.8; O2SAT 98
== END ==
PROVIDERS: PCP Family Medicine; Visit Provider Podiatrist
DX: L08.9 Local infection of the skin and subcutaneous tissue, unspecified (principal); M79.672 Pain in left foot
CPT/HCPCS: 96365; 96366; J3370

== ENCOUNTER 2019-09-02 10:57 | Outpatient (CLI) | payer MEDICARE, SELFPAY ==
[2019-09-02 11:05] VITALS: BP 150/62; PULSE 52; RESP 17; TEMP 36.7; O2SAT 97
[2019-09-02 11:18] LABS: POC Glucose,Bedside 124 (70-110)
[2019-09-02 13:40] VITALS: BP 139/67; PULSE 55; RESP 16; TEMP 36.8; O2SAT 99
== END 2019-09-02 13:40 | disposition home or self-care (01) ==
LOC: INF 10:58
PROVIDERS: PCP Family Medicine; Visit Provider Podiatrist
DX: L08.9 Local infection of the skin and subcutaneous tissue, unspecified (principal); M79.672 Pain in left foot
CPT/HCPCS: 82962; 96365; 96366; G0463; J3370

== ENCOUNTER 2019-09-03 11:25 | Outpatient (CLI) | payer MEDICARE, SELFPAY ==
[2019-09-03 11:23] VITALS: BMI 28.0
[2019-09-03 11:52] LABS: Anion Gap 12.1 mEq/L (5-15); Blood Urea Nitrogen 16 mg/dL (7-18); Calcium 8.7 mg/dL (8.5-10.1); Carbon Dioxide 29 mmol/L (21.0-32.0); Chloride 103 mmol/L (98-107); Creatinine Clearance Estimated 39 mL/min (50-200); Creatinine,Serum 1.18 mg/dL (0.55-1.02); Estimated Glomerular Filt Rate 44 ml/min (>60); GFR (African American) 54 ML/MIN (>60); Glucose 62 mg/dL (74-106); Potassium 4.1 mmoL/L (3.5-5.1); Sodium 140 mmol/L (136-145); Vancomycin,Trough 18.2 mcg/ml (10.0-20.0)
--- NOTE | 2019-09-03 12:03 | P.CONPHA_ITS ---
- Pharmacy Consult Date: 09/03/19 Time: 12:01 Referring provider: DR. WALL Reason for Consult:: VANCOMYCIN TROUGH LEVEL Allergies and ADEs:: Allergies Allergy/AdvReac Type Severity Reaction Status Date / Time codeine [CODEINE] Allergy Unknown Verified 08/30/19 09:35 Home Medications:: Home Medications Medication Instructions Recorded Confirmed Type Pravastatin Sodium [Pravachol 40mg 40 mg PO HS 03/31/18 08/30/19 History Tablet] gabapentin 100 mg capsule 100 mg PO TID cap 07/13/18 08/30/19 History apixaban 5 mg tablet 5 mg PO BID #60 tab 09/18/18 08/30/19 Rx glimepiride 2 mg tablet 2 mg PO DAILY 11/23/18 08/30/19 History amiodarone 200 mg tablet 200 mg PO BID tab 03/30/19 08/30/19 History omeprazole 40 mg capsule,delayed 40 mg PO DAILYP PRN 03/30/19 08/30/19 History release clopidogrel 75 mg tablet 75 mg PO DAILY #30 tab 06/12/19 08/30/19 Rx Budesonide/Formoterol Fumarate 2 puffs IH BID 08/16/19 08/30/19 History [Symbicort 160-4.5 Mcg Inhaler] Furosemide [Furosemide 40MG tAB] 40 mg PO Q48H 08/16/19 08/30/19 History Furosemide [Furosemide 20mg Tab] 20 mg PO Q48H 08/17/19 08/30/19 History Metoprolol Tartrate 25 mg PO BID 08/18/19 08/30/19 History Aspirin [Aspir 81] 81 mg PO DAILY 08/22/19 08/30/19 History Digoxin 125 mcg PO DAILY 08/27/19 08/30/19 History losartan 50 mg tablet 50 mg PO DAILY #30 tab 08/27/19 08/30/19 Rx Height: 1.5 m Weight: 63.049 kg Laboratory Results:: Laboratory Results - last 24 hr 09/03/19 11:30: Sodium 140, Potassium 4.1, Chloride 103, Carbon Dioxide 29, Anion Gap 12.1, BUN 16, Creatinine 1.18 H, Estimated Creat Clear 39, Estimated GFR 44 L, Est GFR ( Amer) 54 L, Glucose 62 L, Calcium 8.7, Vancomycin Trough 18.2 Medical History: Reports:: Asthma, Atherosclerotic Heart Disease, Atrial Fibr illation, Congestive Heart Failure, Chronic Obstructive Pulmonary Disease (COPD), Coronary Artery Disease, Diabetes Mellitus Type 2, Heart Murmur, Hyperlipidemia, Hypertension, Peripheral Artery Disease, Renal Insufficiency Denies:: Cancer, Diabetes Mellitus Type 1, Internal Pacemaker, MRSA, Seizures Assessment and Plan - Assessment and plan all Dx Assessment and Plan for all problems:: BASED ON PATIENT FACTORS AND VANCOMYCIN TROUGH LEVEL, RECOMMEND CONTINUING VANCOMYCIN 1 GM IV Q24H. PHARMACY WILL CONTINUE TO FOLLOW AND ADJUST APPROPRIATE.
[2019-09-03 12:15] VITALS: BP 136/74; PULSE 50; RESP 18; TEMP 36.8; O2SAT 97
[2019-09-03 12:45] VITALS: BP 132/69; PULSE 52; RESP 18; TEMP 36.7; O2SAT 98
[2019-09-03 13:15] VITALS: BP 139/74; PULSE 55; RESP 16; O2SAT 97
[2019-09-03 13:45] VITALS: BP 128/76; PULSE 51; RESP 18; TEMP 36.6; O2SAT 98
[2019-09-03 14:15] VITALS: BP 130/68; PULSE 54; RESP 16; TEMP 36.6; O2SAT 97
== END 2019-09-03 14:50 | disposition home or self-care (01) ==
LOC: INF 11:25
PROVIDERS: Visit Provider Podiatrist
DX: L08.9 Local infection of the skin and subcutaneous tissue, unspecified (principal); M79.672 Pain in left foot
CPT/HCPCS: 80048; 80202; 96365; 96366; G0463

== ENCOUNTER 2019-09-04 11:06 | Outpatient (CLI) | payer MEDICARE, SELFPAY ==
[2019-09-04 11:13] VITALS: BP 157/66; PULSE 49; RESP 18; TEMP 36.7; O2SAT 97
[2019-09-04 11:40] VITALS: BP 140/60; PULSE 50; RESP 16; TEMP 36.7; O2SAT 98
[2019-09-04 12:10] VITALS: BP 139/67; PULSE 52; RESP 18; TEMP 36.6; O2SAT 97
[2019-09-04 12:40] VITALS: BP 147/59; PULSE 58; RESP 16; O2SAT 98
[2019-09-04 13:10] VITALS: BP 153/62; PULSE 55; RESP 18; TEMP 36.6; O2SAT 97
[2019-09-04 13:45] VITALS: BP 145/65; PULSE 52; RESP 16; TEMP 36.6; O2SAT 97
--- NOTE | 2019-09-04 14:22 | PC.NURSE ---
09/04/19 Pt has not followed up with Dr. King since being discharged from hospital. Spoke with Dr. King's office and informed them of this/pt to go to MD's office after leaving infusion dept today to be seen as her routine followup after recent inpatient stay. Pt taken to MD's office with granddaughter present.
== END 2019-09-04 13:45 | disposition home or self-care (01) ==
LOC: INF 11:06
PROVIDERS: Visit Provider Podiatrist
DX: L08.9 Local infection of the skin and subcutaneous tissue, unspecified (principal); M79.672 Pain in left foot
CPT/HCPCS: 96365; 96366; G0463; J3370

== ENCOUNTER 2019-09-05 11:01 | Outpatient (CLI) | payer MEDICARE, SELFPAY ==
[2019-09-05 11:10] VITALS: BP 120/53; PULSE 54; RESP 18; O2SAT 94
[2019-09-05 11:40] VITALS: BP 139/101; PULSE 57; RESP 18
[2019-09-05 12:10] VITALS: BP 141/62; PULSE 55; RESP 18
[2019-09-05 12:40] VITALS: BP 176/80; PULSE 55; RESP 18
[2019-09-05 13:10] VITALS: BP 161/61; PULSE 56; RESP 18
== END 2019-09-05 13:15 | disposition home or self-care (01) ==
LOC: INF 11:01
PROVIDERS: Visit Provider Podiatrist
DX: L08.9 Local infection of the skin and subcutaneous tissue, unspecified (principal); M79.672 Pain in left foot
CPT/HCPCS: 96365; 96366; G0463; J3370

== ENCOUNTER 2019-09-06 11:05 | Outpatient (CLI) | payer MEDICARE, SELFPAY ==
[2019-09-06 11:11] VITALS: BP 123/60; PULSE 54; RESP 18; TEMP 36.7; O2SAT 97
[2019-09-06 11:45] VITALS: BP 149/82; PULSE 52; RESP 18; TEMP 36.6; O2SAT 98
[2019-09-06 12:15] VITALS: BP 132/76; PULSE 55; RESP 16; TEMP 36.6; O2SAT 97
[2019-09-06 12:45] VITALS: BP 138/79; PULSE 54; RESP 18; TEMP 36.6; O2SAT 98
[2019-09-06 13:15] VITALS: BP 129/74; PULSE 56; RESP 18; TEMP 36.7; O2SAT 98
== END 2019-09-06 13:15 | disposition home or self-care (01) ==
LOC: INF 11:05
PROVIDERS: Visit Provider Podiatrist
DX: L08.9 Local infection of the skin and subcutaneous tissue, unspecified (principal); M79.672 Pain in left foot
CPT/HCPCS: 96365; 96366; G0463; J3370

== ENCOUNTER 2019-09-07 10:52 | Outpatient (CLI) | payer MEDICARE, SELFPAY ==
[2019-09-07 11:09] VITALS: BMI 28.0
[2019-09-07 11:20] VITALS: BP 122/74; PULSE 68; RESP 20; TEMP 37.1; O2SAT 98
[2019-09-07 11:38] LABS: Anion Gap 8.1 mEq/L (5-15); Blood Urea Nitrogen 18 mg/dL (7-18); Calcium 8.9 mg/dL (8.5-10.1); Carbon Dioxide 33 mmol/L (21.0-32.0); Chloride 103 mmol/L (98-107); Creatinine Clearance Estimated 38 mL/min (50-200); Creatinine,Serum 1.23 mg/dL (0.55-1.02); Estimated Glomerular Filt Rate 42 ml/min (>60); GFR (African American) 51 ML/MIN (>60); Glucose 110 mg/dL (74-106); Potassium 4.1 mmoL/L (3.5-5.1); Sodium 140 mmol/L (136-145); Vancomycin,Trough 18.5 mcg/ml (10.0-20.0)
[2019-09-07 11:50] VITALS: BP 116/74; PULSE 68; RESP 20; TEMP 36.9; O2SAT 95
[2019-09-07 12:00] VITALS: BP 116/74; PULSE 68; RESP 20; TEMP 36.9; O2SAT 95
[2019-09-07 12:50] VITALS: BP 116/74; PULSE 68; RESP 20
[2019-09-07 13:15] VITALS: BP 116/74; PULSE 68; RESP 20; O2SAT 95
== END 2019-09-07 13:20 | disposition home or self-care (01) ==
LOC: INF 10:53
PROVIDERS: Visit Provider Podiatrist
DX: L08.9 Local infection of the skin and subcutaneous tissue, unspecified (principal); M79.672 Pain in left foot
CPT/HCPCS: 80048; 80202; 96365; 96366; G0463

== ENCOUNTER 2019-09-08 10:59 | Outpatient (CLI) | payer MEDICARE, SELFPAY ==
[2019-09-08 11:05] VITALS: BP 151/58; PULSE 52; RESP 18; TEMP 36.9; O2SAT 98
[2019-09-08 11:10] VITALS: BMI 30.2
== END 2019-09-08 13:25 | disposition home or self-care (01) ==
LOC: INF 10:59
PROVIDERS: PCP Family Medicine; Visit Provider Podiatrist
DX: L08.9 Local infection of the skin and subcutaneous tissue, unspecified (principal); M79.672 Pain in left foot
CPT/HCPCS: 96365; 96366; G0463; J3370

== ENCOUNTER 2019-09-09 11:02 | Outpatient (CLI) | payer MEDICARE, SELFPAY ==
[2019-09-09 11:33] VITALS: BP 141/53; PULSE 51; RESP 18; TEMP 36.7; O2SAT 98; BMI 30.4
[2019-09-09 14:42] VITALS: BP 178/57; PULSE 52; RESP 18; TEMP 36.9; O2SAT 96
== END 2019-09-09 14:43 | disposition home or self-care (01) ==
LOC: INF 11:03
PROVIDERS: PCP Family Medicine; Visit Provider Podiatrist
DX: L08.9 Local infection of the skin and subcutaneous tissue, unspecified (principal); M79.672 Pain in left foot
CPT/HCPCS: 96365; 96366; G0463; J3370

== ENCOUNTER 2019-09-10 11:03 | Outpatient (CLI) | payer MEDICARE, SELFPAY ==
[2019-09-10 11:28] VITALS: BP 139/69; PULSE 54; RESP 18; TEMP 36.9; O2SAT 98
[2019-09-10 11:50] VITALS: BP 128/79; PULSE 55; RESP 18; TEMP 36.9; O2SAT 98
[2019-09-10 12:20] VITALS: BP 126/74; PULSE 58; RESP 16
[2019-09-10 12:50] VITALS: BP 138/79; PULSE 55; RESP 18; TEMP 36.7; O2SAT 97
[2019-09-10 13:20] VITALS: BP 125/68; PULSE 52; RESP 18; TEMP 36.8; O2SAT 98
[2019-09-10 13:45] VITALS: BP 132/76; PULSE 55; RESP 18; TEMP 36.8; O2SAT 98
== END 2019-09-10 13:45 | disposition home or self-care (01) ==
LOC: INF 11:03
PROVIDERS: Visit Provider Podiatrist
DX: L08.9 Local infection of the skin and subcutaneous tissue, unspecified (principal); M79.672 Pain in left foot
CPT/HCPCS: 96365; 96366; G0463; J3370

== ENCOUNTER 2019-09-11 11:08 | Outpatient (CLI) | payer MEDICARE, SELFPAY ==
[2019-09-11 11:19] VITALS: BP 139/65; PULSE 55; RESP 18; TEMP 36.7; O2SAT 98
[2019-09-11 11:55] VITALS: BP 142/80; PULSE 57; RESP 18; TEMP 36.8; O2SAT 97
[2019-09-11 12:20] VITALS: BP 132/76; PULSE 54; RESP 16; TEMP 36.7; O2SAT 98
[2019-09-11 12:50] VITALS: BP 138/79; PULSE 59; RESP 18; TEMP 36.8; O2SAT 98
[2019-09-11 13:25] VITALS: BP 130/69; PULSE 55; RESP 16; TEMP 36.8; O2SAT 97
== END 2019-09-11 13:25 | disposition home or self-care (01) ==
LOC: INF 11:08
PROVIDERS: Visit Provider Podiatrist
DX: L08.9 Local infection of the skin and subcutaneous tissue, unspecified (principal); M79.672 Pain in left foot
CPT/HCPCS: 96365; 96366; G0463; J3370

== ENCOUNTER 2019-09-12 11:04 | Outpatient (CLI) | payer MEDICARE, SELFPAY ==
[2019-09-12 11:07] VITALS: BMI 28.0
[2019-09-12 11:41] LABS: Anion Gap 13.9 mEq/L (5-15); Blood Urea Nitrogen 12 mg/dL (7-18); Calcium 8.9 mg/dL (8.5-10.1); Carbon Dioxide 30 mmol/L (21.0-32.0); Chloride 105 mmol/L (98-107); Creatinine Clearance Estimated 40 mL/min (50-200); Creatinine,Serum 1.15 mg/dL (0.55-1.02); Estimated Glomerular Filt Rate 46 ml/min (>60); GFR (African American) 55 ML/MIN (>60); Glucose 76 mg/dL (74-106); Potassium 3.9 mmoL/L (3.5-5.1); Sodium 145 mmol/L (136-145); Vancomycin,Trough 18.4 mcg/ml (10.0-20.0)
--- NOTE | 2019-09-12 11:54 | HMH.PHACONS ---
- Pharmacy Consult Date: 09/12/19 Time: 11:54 Referring provider: DR. WALL Reason for Consult:: VANCOMYCIN TROUGH LEVEL Allergies and ADEs:: Allergies Allergy/AdvReac Type Severity Reaction Status Date / Time codeine [CODEINE] Allergy Unknown Verified 09/11/19 15:35 Home Medications:: Home Medications Medication Instructions Recorded Confirmed Type Pravastatin Sodium [Pravachol 40mg 40 mg PO HS 03/31/18 09/11/19 History Tablet] gabapentin 100 mg capsule 100 mg PO TID cap 07/13/18 09/11/19 History apixaban 5 mg tablet 5 mg PO BID #60 tab 09/18/18 09/11/19 Rx glimepiride 2 mg tablet 2 mg PO DAILY 11/23/18 09/11/19 History amiodarone 200 mg tablet 200 mg PO BID tab 03/30/19 09/11/19 History omeprazole 40 mg capsule,delayed 40 mg PO DAILYP PRN 03/30/19 09/11/19 History release clopidogrel 75 mg tablet 75 mg PO DAILY #30 tab 06/12/19 09/11/19 Rx Budesonide/Formoterol Fumarate 2 puffs IH BID 08/16/19 09/11/19 History [Symbicort 160-4.5 Mcg Inhaler] Furosemide [Furosemide 40MG tAB] 40 mg PO Q48H 08/16/19 09/11/19 History Furosemide [Furosemide 20mg Tab] 20 mg PO Q48H 08/17/19 09/05/19 History Metoprolol Tartrate 25 mg PO BID 08/18/19 09/11/19 History Aspirin [Aspir 81] 81 mg PO DAILY 08/22/19 09/11/19 History Digoxin 125 mcg PO DAILY 08/27/19 09/11/19 History losartan 50 mg tablet 50 mg PO DAILY #30 tab 08/27/19 09/11/19 Rx Height: 1.5 m Weight: 63.049 kg Laboratory Results:: Laboratory Results - last 24 hr 09/12/19 11:10: Sodium 145, Potassium 3.9, Chloride 105, Carbon Dioxide 30, Anion Gap 13.9, BUN 12, Creatinine 1.15 H, Estimated Creat Clear 40, Estimated GFR 46 L, Est GFR ( Amer) 55 L, Glucose 76, Calcium 8.9, Vancomycin Trough 18.4 Medical History: Reports:: Asthma, Atherosclerotic Heart Disease, Atrial Fibrillation, Congestive Heart Failure, Chronic Obstructive Pulmonary Disease (COPD), Coronary Artery Disease, Diabetes Mellitus Type 2, Heart Murmur, Hyperlipidemia, Hypertension, Peripheral Artery Disease, Renal Insufficiency Denies:: Cancer, Diabetes Mellitus Type 1, Internal Pacemaker, MRSA, Seizures Assessment and Plan - Assessment and plan all Dx Assessment and Plan for all problems:: BASED ON PATIENT FACTORS AND VANCOMYCIN TROUGH LEVEL, RECOMMEND CONTINUING VANCOMYCIN 1 GM IV Q24H. PHARMACY WILL CONTINUE TO MONITOR DAILY AND ADJUST APPROPRIATE.
[2019-09-12 12:00] VITALS: BP 135/83; PULSE 78; RESP 18
[2019-09-12 14:05] VITALS: BP 130/78; PULSE 76; RESP 18
== END 2019-09-12 14:05 | disposition home or self-care (01) ==
LOC: INF 11:05
PROVIDERS: Visit Provider Podiatrist
DX: L08.9 Local infection of the skin and subcutaneous tissue, unspecified (principal); M79.672 Pain in left foot
CPT/HCPCS: 80048; 80202; 96365; 96366; J3370

== ENCOUNTER 2019-09-13 10:58 | Outpatient (CLI) | payer MEDICARE, SELFPAY ==
[2019-09-13 11:10] VITALS: BMI 28.0
[2019-09-13 11:20] VITALS: BP 156/51; PULSE 62; RESP 18; TEMP 36.6; O2SAT 98
[2019-09-13 12:56] VITALS: BP 145/76; PULSE 61; RESP 18; TEMP 36.7; O2SAT 97
[2019-09-13 13:49] VITALS: BP 156/57; PULSE 50; RESP 16; TEMP 36.6; O2SAT 98
== END 2019-09-13 13:50 | disposition home or self-care (01) ==
LOC: INF 10:58
PROVIDERS: PCP Family Medicine; Visit Provider Podiatrist
DX: L08.9 Local infection of the skin and subcutaneous tissue, unspecified (principal); M79.672 Pain in left foot
CPT/HCPCS: 96365; 96366; G0463; J3370

== ENCOUNTER 2019-09-14 09:24 | Outpatient (CLI) | payer MEDICARE, SELFPAY ==
[2019-09-14 09:35] VITALS: BP 127/52; PULSE 52; RESP 18; O2SAT 98
[2019-09-14 11:45] VITALS: BP 153/62; PULSE 50; RESP 18
== END 2019-09-14 11:45 | disposition home or self-care (01) ==
LOC: INF 09:24
PROVIDERS: Visit Provider Podiatrist
DX: L08.9 Local infection of the skin and subcutaneous tissue, unspecified (principal); M79.672 Pain in left foot
CPT/HCPCS: 96365; 96366; G0463; J3370

== ENCOUNTER → 2019-09-15 11:04 | Outpatient (CLI) | payer MEDICARE, SELFPAY ==
[2019-09-15 11:15] VITALS: BP 143/69; PULSE 50; RESP 18; TEMP 36.4; O2SAT 97
--- NOTE | 2019-09-15 12:53 | PC.NURSE ---
Addendum entered by Kristine Bang RN 09/15/19 13:02: great toe and second toe on left foot. Original Note: 1120 fluff and 4x4 dressing removed from left foot at this time. big toe and great toe cleaned with betadine solution, then santyl ointment applied to great toe as ordered, then great toe wrapped in betadine soak 4x4. clean 4x4 wrapped around big toe, then entire foot wrapped in fluff wrap loosely, dressing taped in placed and then sock reapplied at this time per patient request to help hold dressing in place.patient tolerated entire procedure very well.
--- NOTE | 2019-09-15 12:59 | PC.NURSE ---
1135 lunch tray given at this time.
[2019-09-15 13:40] VITALS: BP 138/74; PULSE 52; RESP 18; TEMP 36.4; O2SAT 98
== END ==
PROVIDERS: PCP Family Medicine; Visit Provider Podiatrist
DX: L08.9 Local infection of the skin and subcutaneous tissue, unspecified (principal); M79.672 Pain in left foot
CPT/HCPCS: 96365; 96366; G0463; J3370

== ENCOUNTER → 2019-09-16 11:01 | Outpatient (CLI) | payer MEDICARE, SELFPAY ==
[2019-09-16 11:20] VITALS: BP 150/41; PULSE 54; RESP 17; TEMP 36.4; O2SAT 98
[2019-09-16 11:50] VITALS: BP 154/64; PULSE 50; RESP 18; O2SAT 100
[2019-09-16 12:10] VITALS: BP 149/58; PULSE 52; RESP 17; O2SAT 98
== END ==
PROVIDERS: PCP Family Medicine; Visit Provider Podiatrist
DX: L08.9 Local infection of the skin and subcutaneous tissue, unspecified (principal); M79.672 Pain in left foot
CPT/HCPCS: 96365; 96366; G0463; J3370

== ENCOUNTER 2019-09-17 11:18 | Outpatient (CLI) | payer MEDICARE, SELFPAY ==
[2019-09-17 11:23] VITALS: BP 116/70; PULSE 49; RESP 18; TEMP 36.6; O2SAT 97
[2019-09-17 11:50] VITALS: BP 122/69; PULSE 51; RESP 18; TEMP 36.6; O2SAT 98
[2019-09-17 12:20] VITALS: BP 126/74; PULSE 52; RESP 16; TEMP 36.7; O2SAT 99
[2019-09-17 12:50] VITALS: BP 119/68; PULSE 55; RESP 18; TEMP 36.7; O2SAT 97
[2019-09-17 13:20] VITALS: BP 130/72; PULSE 51; RESP 16
[2019-09-17 13:40] VITALS: BP 122/78; PULSE 54; RESP 18; TEMP 36.8; O2SAT 98
== END 2019-09-17 13:35 | disposition home or self-care (01) ==
LOC: INF 11:18
PROVIDERS: Visit Provider Podiatrist
DX: L08.9 Local infection of the skin and subcutaneous tissue, unspecified (principal); M79.672 Pain in left foot
CPT/HCPCS: 96365; 96366; G0463; J3370

== ENCOUNTER 2019-09-18 10:59 | Outpatient (CLI) | payer MEDICARE, SELFPAY ==
[2019-09-18 11:12] VITALS: BMI 28.0
[2019-09-18 11:35] LABS: Anion Gap 12.7 mEq/L (5-15); Blood Urea Nitrogen 16 mg/dL (7-18); Calcium 8.8 mg/dL (8.5-10.1); Carbon Dioxide 30 mmol/L (21.0-32.0); Chloride 104 mmol/L (98-107); Creatinine Clearance Estimated 39 mL/min (50-200); Creatinine,Serum 1.18 mg/dL (0.55-1.02); Estimated Glomerular Filt Rate 44 ml/min (>60); GFR (African American) 54 ML/MIN (>60); Glucose 71 mg/dL (74-106); Potassium 3.7 mmoL/L (3.5-5.1); Sodium 143 mmol/L (136-145)
[2019-09-18 11:41] LABS: Vancomycin,Trough 21.1 mcg/ml (10.0-20.0)
--- NOTE | 2019-09-18 12:01 | HMH.PHACONS ---
- Pharmacy Consult Date: 09/18/19 Time: 12:02 Referring provider: DR. WALL Reason for Consult:: VANCOMYCIN TROUGH LEVEL AND DOSE CHANGE Allergies and ADEs:: Allergies Allergy/AdvReac Type Severity Reaction Status Date / Time codeine [CODEINE] Allergy Unknown Verified 09/11/19 15:35 Home Medications:: Home Medications Medication Instructions Recorded Confirmed Type Pravastatin Sodium [Pravachol 40mg 40 mg PO HS 03/31/18 09/11/19 History Tablet] gabapentin 100 mg capsule 100 mg PO TID cap 07/13/18 09/11/19 History apixaban 5 mg tablet 5 mg PO BID #60 tab 09/18/18 09/11/19 Rx glimepiride 2 mg tablet 2 mg PO DAILY 11/23/18 09/11/19 History amiodarone 200 mg tablet 200 mg PO BID tab 03/30/19 09/11/19 History omeprazole 40 mg capsule,delayed 40 mg PO DAILYP PRN 03/30/19 09/11/19 History release clopidogrel 75 mg tablet 75 mg PO DAILY #30 tab 06/12/19 09/11/19 Rx Budesonide/Formoterol Fumarate 2 puffs IH BID 08/16/19 09/11/19 History [Symbicort 160-4.5 Mcg Inhaler] Furosemide [Furosemide 40MG tAB] 40 mg PO Q48H 08/16/19 09/11/19 History Furosemide [Furosemide 20mg Tab] 20 mg PO Q48H 08/17/19 09/05/19 History Metoprolol Tartrate 25 mg PO BID 08/18/19 09/11/19 History Aspirin [Aspir 81] 81 mg PO DAILY 08/22/19 09/11/19 History Digoxin 125 mcg PO DAILY 08/27/19 09/11/19 History losartan 50 mg tablet 50 mg PO DAILY #30 tab 08/27/19 09/11/19 Rx Height: 1.5 m Weight: 63.049 kg Laboratory Results:: Laboratory Results - last 24 hr 09/18/19 11:05: Sodium 143, Potassium 3.7, Chloride 104, Carbon Dioxide 30, Anion Gap 12.7, BUN 16, Creatinine 1.18 H, Estimated Creat Clear 39, Estimated GFR 44 L, Est GFR ( Amer) 54 L, Glucose 71 L, Calcium 8.8, Vancomycin Trough 21.1 H Medical History: Reports:: Asthma, Atherosclerotic Heart Disease, Atrial Fibrillation, Congestive Heart Failure, Chronic Obstructive Pulmonary Disease (COPD), Coronary Artery Disease, Diabetes Mellitus Type 2, Heart Murmur, Hyperlipidemia, Hypertension, Peripheral Artery Disease, Renal Insufficiency Denies:: Cancer, Diabetes Mellitus Type 1, Internal Pacemaker, MRSA, Seizures Assessment and Plan - Assessment and plan all Dx Assessment and Plan for all problems:: BASED ON VANCOMYCIN TROUGH LEVEL OF 21.1, RECOMMEND HOLDING DOSE TODAY AND RESUMING TREATMENT TOMORROW (09/19/19) AT 750MG IV EVERY 24 HOURS. PHARMACY WILL CONTINUE TO MONITOR. -RADHIKA DAVID, CANDED
[2019-09-18 12:05] VITALS: BP 121/54; PULSE 51; RESP 18; TEMP 36.7; O2SAT 98
--- NOTE | 2019-09-18 14:14 | PC.NURSE ---
09/18/19 1200 Order given per pharmacy to hold today's Vancomycin dose. Pt informed of same. PICC dressing changed per protocol.
== END 2019-09-18 12:05 | disposition home or self-care (01) ==
LOC: INF 10:59
PROVIDERS: Visit Provider Podiatrist
DX: L08.9 Local infection of the skin and subcutaneous tissue, unspecified (principal); M79.672 Pain in left foot
CPT/HCPCS: 80048; 80202

== ENCOUNTER 2019-09-19 11:01 | Outpatient (CLI) | payer MEDICARE, SELFPAY ==
[2019-09-19 11:30] VITALS: BP 119/45; PULSE 62; RESP 18; O2SAT 94
[2019-09-19 13:42] VITALS: BP 142/71; PULSE 41; RESP 18; O2SAT 94
== END 2019-09-19 13:42 | disposition home or self-care (01) ==
LOC: INF 11:01
PROVIDERS: Visit Provider Podiatrist
DX: L08.9 Local infection of the skin and subcutaneous tissue, unspecified (principal); M79.672 Pain in left foot
CPT/HCPCS: 96365; 96366; J3370

== ENCOUNTER 2019-09-20 11:03 | Outpatient (CLI) | payer MEDICARE, SELFPAY ==
[2019-09-20 11:45] VITALS: BP 160/69; PULSE 50; RESP 18; O2SAT 98
[2019-09-20 13:45] VITALS: BP 153/61; PULSE 62; RESP 18; O2SAT 97
== END 2019-09-20 13:45 | disposition home or self-care (01) ==
LOC: INF 11:03
PROVIDERS: PCP Family Medicine; Visit Provider Podiatrist
DX: L08.9 Local infection of the skin and subcutaneous tissue, unspecified (principal); M79.672 Pain in left foot
CPT/HCPCS: 96365; 96366; G0463; J3370

== ENCOUNTER 2019-09-21 11:25 | Outpatient (CLI) | payer MEDICARE, SELFPAY ==
[2019-09-21 11:20] VITALS: BP 125/74; PULSE 68; RESP 20; TEMP 36.9
[2019-09-21 12:15] VITALS: BP 125/74; PULSE 68; RESP 20; TEMP 36.9; O2SAT 95
[2019-09-21 13:35] VITALS: BP 128/74; PULSE 68; RESP 20; TEMP 36.9
== END 2019-09-21 13:35 | disposition home or self-care (01) ==
LOC: INF 11:25
PROVIDERS: PCP Family Medicine; Visit Provider Podiatrist
DX: L08.9 Local infection of the skin and subcutaneous tissue, unspecified (principal); M79.672 Pain in left foot
CPT/HCPCS: 96365; 96366; G0463; J3370

== ENCOUNTER 2019-09-22 10:56 | Outpatient (CLI) | payer MEDICARE, SELFPAY ==
[2019-09-22 12:15] VITALS: BP 142/53; PULSE 66; RESP 18; TEMP 36.8; O2SAT 98; BMI 26.9
[2019-09-22 15:15] VITALS: BP 141/87; PULSE 51; RESP 18; TEMP 36.7; O2SAT 98
== END 2019-09-22 15:15 | disposition home or self-care (01) ==
LOC: INF 10:57
PROVIDERS: PCP Family Medicine; Visit Provider Podiatrist
DX: L08.9 Local infection of the skin and subcutaneous tissue, unspecified (principal); M79.672 Pain in left foot
CPT/HCPCS: 96365; 96366; G0463

== ENCOUNTER 2019-09-23 10:57 | Outpatient (CLI) | payer MEDICARE, SELFPAY ==
[2019-09-23 11:15] VITALS: BP 115/44; PULSE 48; RESP 18; TEMP 36.4; O2SAT 98; BMI 26.9
[2019-09-23 14:18] VITALS: BP 115/44; PULSE 48; RESP 18; TEMP 36.4; O2SAT 98
== END 2019-09-23 14:18 | disposition home or self-care (01) ==
PROVIDERS: PCP Family Medicine; Visit Provider Podiatrist
DX: L08.9 Local infection of the skin and subcutaneous tissue, unspecified (principal); M79.672 Pain in left foot
CPT/HCPCS: 96365; 96366; G0463; J3370

== ENCOUNTER 2019-09-24 10:50 | Outpatient (CLI) | payer MEDICARE, SELFPAY ==
[2019-09-24 11:33] VITALS: BMI 28.0
[2019-09-24 12:06] LABS: Blood Urea Nitrogen 19 mg/dL (7-18); Calcium 8.5 mg/dL (8.5-10.1); Carbon Dioxide 31 mmol/L (21.0-32.0); Chloride 102 mmol/L (98-107); Creatinine Clearance Estimated 33 mL/min (50-200); Creatinine,Serum 1.41 mg/dL (0.55-1.02); Estimated Glomerular Filt Rate 36 ml/min (>60); GFR (African American) 44 ML/MIN (>60); Glucose 102 mg/dL (74-106); Sodium 142 mmol/L (136-145)
[2019-09-24 12:10] LABS: Vancomycin,Trough 15.8 mcg/ml (10.0-20.0)
[2019-09-24 12:14] VITALS: BP 117/47; PULSE 51; RESP 18; TEMP 36.6; O2SAT 98
[2019-09-24 12:44] VITALS: BP 119/51; PULSE 59; RESP 18; O2SAT 97
[2019-09-24 13:14] VITALS: BP 122/49; PULSE 56; RESP 18; O2SAT 97
--- NOTE | 2019-09-24 13:22 | HMH.PHACONS ---
- Pharmacy Consult Date: 09/24/19 Time: 13:22 Referring provider: DR. WALL Reason for Consult:: VANCOMYCIN LEVEL Allergies and ADEs:: Allergies Allergy/AdvReac Type Severity Reaction Status Date / Time codeine [CODEINE] Allergy Unknown Verified 09/18/19 15:11 Home Medications:: Home Medications Medication Instructions Recorded Confirmed Type Pravastatin Sodium [Pravachol 40mg 40 mg PO HS 03/31/18 09/24/19 History Tablet] gabapentin 100 mg capsule 100 mg PO TID cap 07/13/18 09/24/19 History apixaban 5 mg tablet 5 mg PO BID #60 tab 09/18/18 09/24/19 Rx glimepiride 2 mg tablet 2 mg PO DAILY 11/23/18 09/24/19 History amiodarone 200 mg tablet 200 mg PO BID tab 03/30/19 09/24/19 History omeprazole 40 mg capsule,delayed 40 mg PO DAILYP PRN 03/30/19 09/24/19 History release clopidogrel 75 mg tablet 75 mg PO DAILY #30 tab 06/12/19 09/24/19 Rx Budesonide/Formoterol Fumarate 2 puffs IH BID 08/16/19 09/24/19 History [Symbicort 160-4.5 Mcg Inhaler] Furosemide [Furosemide 40MG tAB] 40 mg PO Q48H 08/16/19 09/24/19 History Furosemide [Furosemide 20mg Tab] 20 mg PO Q48H 08/17/19 09/24/19 History Metoprolol Tartrate 25 mg PO BID 08/18/19 09/24/19 History Aspirin [Aspir 81] 81 mg PO DAILY 08/22/19 09/24/19 History Digoxin 125 mcg PO DAILY 08/27/19 09/24/19 History losartan 50 mg tablet 50 mg PO DAILY #30 tab 08/27/19 09/24/19 Rx Height: 1.5 m Weight: 63.049 kg Laboratory Results:: Laboratory Results - last 24 hr 09/24/19 11:45: Vancomycin Trough 15.8 09/24/19 11:45: Sodium 142, Potassium 4.0, Chloride 102, Carbon Dioxide 31, Anion Gap 13.0, BUN 19 H, Creatinine 1.41 H, Estimated Creat Clear 33, Estimated GFR 36 L, Est GFR ( Amer) 44 L, Glucose 102, Calcium 8.5 Medical History: Reports:: Asthma, Atherosclerotic Heart Disease, Atrial Fibrillation, Congestive Heart Failure, Chronic Obstructive Pulmonary Disease (COPD), Coronary Artery Disease, Diabetes Mellitus Type 2, Heart Murmur, Hyperlipidemia, Hypertension, Peripheral Artery Disease, Renal Insufficiency Denies:: Cancer, Diabetes Mellitus Type 1, Internal Pacemaker, MRSA, Seizures Assessment and Plan - Assessment and plan all Dx Assessment and Plan for all problems:: BASED ON PATIENT'S TROUGH LEVEL OF 15.8 MCG/ML, RECOMMEND PATIENT CONTINUE WITH CURRENT DOSE AND INTERVAL OF VANCOMYCIN 750 MG Q24H.
[2019-09-24 13:44] VITALS: BP 115/52; PULSE 57; RESP 18; O2SAT 97
[2019-09-24 14:10] VITALS: BP 118/48; PULSE 52; RESP 18; O2SAT 98
== END 2019-09-24 14:10 | disposition home or self-care (01) ==
LOC: INF 10:50
PROVIDERS: Visit Provider Podiatrist
DX: L08.9 Local infection of the skin and subcutaneous tissue, unspecified (principal); M79.672 Pain in left foot
CPT/HCPCS: 80048; 80202; 96365; 96366; G0463; J3370

== ENCOUNTER 2019-09-25 11:03 | Outpatient (CLI) | payer MEDICARE, SELFPAY ==
[2019-09-25 11:25] VITALS: BP 100/59; PULSE 50; RESP 18; O2SAT 97
[2019-09-25 13:35] VITALS: BP 126/48; PULSE 84; RESP 18
== END 2019-09-25 13:35 | disposition home or self-care (01) ==
LOC: INF 11:03
PROVIDERS: Visit Provider Podiatrist
DX: L08.9 Local infection of the skin and subcutaneous tissue, unspecified (principal); M79.672 Pain in left foot
CPT/HCPCS: 96365; 96366; J3370

== ENCOUNTER 2019-09-26 11:16 | Outpatient (CLI) | payer MEDICARE, SELFPAY ==
[2019-09-26 11:19] VITALS: BMI 24.7
[2019-09-26 11:30] VITALS: BP 155/53; PULSE 47; RESP 18
[2019-09-26 12:24] LABS: C-Reactive Protein 0.4 mg/dL (0.0-0.9)
[2019-09-26 12:26] LABS: Erythrocyte Sedimentation Rate 50 mm/hr (0-30)
[2019-09-26 13:43] VITALS: BP 137/57; PULSE 57; RESP 18
--- NOTE | 2019-09-26 13:45 | XR_ITS ---
PROCEDURE: XR FOOT WT BEARING LT 3V CLINICAL INDICATION: osteomyelitis Left great toe osteomyelitis COMPARISON: No exams were available for comparison FINDINGS: Diffuse osteopenia with hammertoe deformity. 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 Pes planus. No bony destructive process demonstrated. Previously noted ill definition of the distal and lateral aspect of the tuft of the distal phalanx is not well demonstrated on today's image due to overlying nail bed artifact. IMPRESSION: Previously noted ill definition of the distal and lateral aspect of the tuft of the distal phalanx is not well demonstrated on today's image due to overlying nail bed artifact. Degenerative changes and osteopenia Dictated by: Loy Li MD 09/26/2019 15:52 Electronically signed by Loy Li MD in [place] 09/26/2019 15:52
== END 2019-09-26 13:43 | disposition home or self-care (01) ==
LOC: INF 11:16
PROVIDERS: Visit Provider Podiatrist
DX: M86.9 Osteomyelitis, unspecified (principal); L03.032 Cellulitis of left toe; L08.89 Other specified local infections of the skin and subcutaneous tissue
CPT/HCPCS: 73630; 85651; 86140; 96365; 96366; G0463; J3370

== ENCOUNTER 2019-09-27 11:02 | Outpatient (CLI) | payer MEDICARE, SELFPAY ==
[2019-09-27 11:32] VITALS: BMI 26.4
[2019-09-27 11:50] VITALS: BP 153/50; PULSE 51; RESP 18
[2019-09-27 12:29] LABS: Alanine Aminotransferase 21 U/L (12-78); Albumin Level 3.2 gm/dL (3.4-5.0); Alkaline Phosphatase 63 U/L (46-116); Aspartate Amino Transferase 14 U/L (15-37); Bilirubin,Direct 0.2 mg/dL (0.0-0.2); Bilirubin,Indirect 0.2 mg/dL (0.0-0.9); Bilirubin,Total 0.4 mg/dL (0.2-1.0); Free T4 (Free Thyroxine) 1.37 ng/dl (0.76-1.46); Thyroid Stimulating Hormone 2.77 uIU/ml (0.358-3.740); Total Protein,Serum 5.8 gm/dL (6.4-8.2)
[2019-09-27 13:55] VITALS: BP 108/50; PULSE 54; RESP 18
== END 2019-09-27 13:55 | disposition home or self-care (01) ==
LOC: INF 11:02
PROVIDERS: Internal Medicine Cardiovascular Disease; Visit Provider Podiatrist
DX: M86.9 Osteomyelitis, unspecified (principal); L03.032 Cellulitis of left toe
CPT/HCPCS: 80076; 84439; 84443; 96365; 96366; G0463; J3370

== ENCOUNTER 2019-09-28 10:59 | Outpatient (CLI) | payer MEDICARE, SELFPAY ==
[2019-09-28 11:13] VITALS: BP 103/58; PULSE 51; RESP 18; TEMP 36.6; O2SAT 98
[2019-09-28 11:40] VITALS: BP 132/60; PULSE 55; RESP 18; TEMP 36.6; O2SAT 98
[2019-09-28 12:10] VITALS: BP 126/59; PULSE 56; RESP 16; TEMP 36.7; O2SAT 97
[2019-09-28 12:40] VITALS: BP 131/58; PULSE 52; RESP 18; TEMP 36.6; O2SAT 98
[2019-09-28 13:10] VITALS: BP 124/61; PULSE 55; RESP 18
[2019-09-28 13:20] VITALS: BP 121/65; PULSE 54; RESP 18; TEMP 36.7; O2SAT 97
== END 2019-09-28 13:35 | disposition home or self-care (01) ==
LOC: INF 10:59
PROVIDERS: Visit Provider Podiatrist
DX: M86.9 Osteomyelitis, unspecified (principal); L03.032 Cellulitis of left toe
CPT/HCPCS: 96365; 96366; G0463; J3370

== ENCOUNTER 2019-09-29 10:53 | Outpatient (CLI) | payer MEDICARE, SELFPAY ==
[2019-09-29 11:07] VITALS: BP 96/42; PULSE 45; RESP 15; TEMP 36.8; O2SAT 96
--- NOTE | 2019-09-29 11:20 | PC.NURSE ---
dressing changed per written order. pt states that areas of concern are getting better.
[2019-09-29 13:55] VITALS: BP 123/76; PULSE 49; RESP 16; O2SAT 96
== END 2019-09-29 13:55 | disposition home or self-care (01) ==
LOC: INF 10:54
PROVIDERS: PCP Family Medicine; Visit Provider Podiatrist
DX: M86.9 Osteomyelitis, unspecified (principal); L97.522 Non-pressure chronic ulcer of other part of left foot with fat layer exposed
CPT/HCPCS: G0463; J3370

== ENCOUNTER 2019-09-30 10:52 | Outpatient (CLI) | payer MEDICARE, SELFPAY ==
[2019-09-30 10:52] VITALS: BP 143/58; PULSE 48; RESP 16; TEMP 36.7; O2SAT 99
[2019-09-30 11:33] VITALS: BP 153/56; PULSE 48; RESP 16; TEMP 36.7; O2SAT 96
--- NOTE | 2019-09-30 13:46 | PC.NURSE ---
DRESSING CHANGED PER ORDER. THE NECROTIC TOE IS STARTING TO HEAL ON THE MEDIAL ASPECT- BLACK SKIN GONE ON 1/4 OF THE WOUND AND THERE IS FRESH, PROLIFERATED SKIN.
== END 2019-09-30 14:04 | disposition hospice, home (50) ==
LOC: INF 10:52
PROVIDERS: PCP Family Medicine; Visit Provider Podiatrist
DX: M86.9 Osteomyelitis, unspecified (principal); L97.522 Non-pressure chronic ulcer of other part of left foot with fat layer exposed
CPT/HCPCS: 96365; J3370

== ENCOUNTER 2019-10-01 11:19 | Outpatient (CLI) | payer MEDICARE, SELFPAY ==
[2019-10-01 12:24] VITALS: BP 130/82; PULSE 62; RESP 18; TEMP 37; O2SAT 98
[2019-10-01 12:54] VITALS: BP 125/75; PULSE 55; RESP 18; TEMP 36.8; O2SAT 97
[2019-10-01 13:24] VITALS: BP 134/79; PULSE 57; RESP 20; TEMP 36.8; O2SAT 98
[2019-10-01 13:54] VITALS: BP 129/88; PULSE 55; RESP 18; TEMP 36.7; O2SAT 98
[2019-10-01 14:24] VITALS: BP 126/74; PULSE 58; RESP 20; TEMP 36.7; O2SAT 98
[2019-10-01 14:30] VITALS: BP 131/85; PULSE 56; RESP 18; TEMP 36.8; O2SAT 97
== END 2019-10-01 14:30 | disposition home or self-care (01) ==
LOC: INF 11:19
PROVIDERS: Visit Provider Podiatrist
DX: M86.9 Osteomyelitis, unspecified (principal); L97.522 Non-pressure chronic ulcer of other part of left foot with fat layer exposed
CPT/HCPCS: 96365; 96366; G0463; J3370

== ENCOUNTER 2019-10-02 11:23 | Outpatient (CLI) | payer MEDICARE, SELFPAY ==
[2019-10-02 11:32] VITALS: BMI 28.0
[2019-10-02 12:05] LABS: Basophils % 0.3 % (0.1-2.0); Eosinophils # 0.7 K/mm3 (0.0-0.4); Eosinophils % 7.5 % (0.1-12.0); Lymphocytes # 2.6 K/mm3 (0.7-4.5); Lymphocytes % 27.9 % (10-50); Mean Corpuscular HGB Conc 32.5 g/dL (31.8-35.4); Mean Corpuscular Hemoglobin 29.3 pg (27.0-31.2); Mean Corpuscular Volume 90.2 fl (81-99); Mean Platelet Volume 7.6 fl (7.4-10.4); Monocytes # 0.8 K/mm3 (0.1-1.0); Monocytes % 7.9 % (1.7-9.3); Neutrophils # 5.3 K/mm3 (1.8-7.8); Neutrophils % 56.3 % (37.0-80.0); Platelet Count 331 K/mm3 (142-424); Red Cell Distribution Width 12.9 % (11.5-17.5); White Blood Count 9.4 K/mm3 (4.8-10.8)
[2019-10-02 12:20] LABS: Alanine Aminotransferase 18 U/L (12-78); Albumin Level 3.4 gm/dL (3.4-5.0); Albumin/Globulin Ratio 1.1 (1.1-1.8); Alkaline Phosphatase 63 U/L (46-116); Anion Gap 12.8 mEq/L (5-15); Aspartate Amino Transferase 11 U/L (15-37); Bilirubin,Total 0.3 mg/dL (0.2-1.0); Blood Urea Nitrogen 17 mg/dL (7-18); C-Reactive Protein 0.9 mg/dL (0.0-0.9); Calcium 8.9 mg/dL (8.5-10.1); Carbon Dioxide 32 mmol/L (21.0-32.0); Chloride 102 mmol/L (98-107); Creatinine Clearance Estimated 32 mL/min (50-200); Creatinine,Serum 1.43 mg/dL (0.55-1.02); Estimated Glomerular Filt Rate 35 ml/min (>60); GFR (African American) 43 ML/MIN (>60); Globulin 3.2 gm/dl (1.3-3.2); Glucose 67 mg/dL (74-106); Potassium 3.8 mmoL/L (3.5-5.1); Sodium 143 mmol/L (136-145); Total Protein,Serum 6.6 gm/dL (6.4-8.2); Vancomycin,Trough 17.3 mcg/ml (10.0-20.0)
[2019-10-02 12:31] LABS: Erythrocyte Sedimentation Rate 43 mm/hr (0-30)
[2019-10-02 13:05] VITALS: BP 133/56; PULSE 53; RESP 18; TEMP 36.7; O2SAT 97
[2019-10-02 13:35] VITALS: BP 136/60; PULSE 55; RESP 18; TEMP 36.7; O2SAT 98
[2019-10-02 14:05] VITALS: BP 125/56; PULSE 58; RESP 20; TEMP 36.6; O2SAT 97
[2019-10-02 14:35] VITALS: BP 129/62; PULSE 54; RESP 18
[2019-10-02 15:05] VITALS: BP 139/65; PULSE 52; RESP 18; TEMP 36.7; O2SAT 97
[2019-10-02 15:15] VITALS: BP 132/58; PULSE 55; RESP 20; TEMP 36.7; O2SAT 98
--- NOTE | 2019-10-02 15:36 | PC.NURSE ---
Left foot dressing not changed on patient visit today due to pt seeing budget coordinator/dressing changed at budget coordinator's office prior to pt arrival for Vancomycin infusion today.
== END 2019-10-02 15:15 | disposition home or self-care (01) ==
LOC: INF 11:23
PROVIDERS: Visit Provider Podiatrist
DX: M86.9 Osteomyelitis, unspecified (principal); M79.672 Pain in left foot; L08.9 Local infection of the skin and subcutaneous tissue, unspecified
CPT/HCPCS: 80053; 80202; 85025; 85651; 86140; 96365; 96366; G0463; J3370

== ENCOUNTER 2019-10-03 11:11 | Outpatient (CLI) | payer MEDICARE, SELFPAY ==
[2019-10-03 11:20] VITALS: BP 167/58; PULSE 49; RESP 18
[2019-10-03 13:28] VITALS: BP 185/52; PULSE 52; RESP 18
== END 2019-10-03 13:28 | disposition home or self-care (01) ==
LOC: INF 11:12
PROVIDERS: Visit Provider Podiatrist
DX: L08.9 Local infection of the skin and subcutaneous tissue, unspecified (principal); M79.672 Pain in left foot; M86.9 Osteomyelitis, unspecified
CPT/HCPCS: 96365; 96366; G0463; J3370

== ENCOUNTER 2019-10-04 11:02 | Outpatient (CLI) | payer MEDICARE, SELFPAY ==
[2019-10-04 11:07] VITALS: BP 141/53; PULSE 55; RESP 18; TEMP 36.3; O2SAT 99
[2019-10-04 11:45] VITALS: BP 134/69; PULSE 58; RESP 18; TEMP 36.6; O2SAT 97
[2019-10-04 12:15] VITALS: BP 138/72; PULSE 54; RESP 16
[2019-10-04 12:45] VITALS: BP 147/62; PULSE 52; RESP 18; TEMP 36.7; O2SAT 98
[2019-10-04 13:25] VITALS: BP 139/72; PULSE 55; RESP 18; TEMP 36.7; O2SAT 99
== END 2019-10-04 13:25 | disposition home or self-care (01) ==
LOC: INF 11:02
PROVIDERS: Visit Provider Podiatrist
DX: M79.672 Pain in left foot (principal); L08.9 Local infection of the skin and subcutaneous tissue, unspecified
CPT/HCPCS: 96365; 96366; G0463; J3370

== ENCOUNTER 2019-10-05 11:05 | Outpatient (CLI) | payer MEDICARE, SELFPAY ==
[2019-10-05 11:41] VITALS: BP 157/72; PULSE 48; RESP 18; O2SAT 98
[2019-10-05 14:00] VITALS: BP 180/69; PULSE 55; RESP 18
== END 2019-10-05 14:00 | disposition home or self-care (01) ==
LOC: INF 11:05
PROVIDERS: Visit Provider Podiatrist
DX: M79.672 Pain in left foot (principal); L08.9 Local infection of the skin and subcutaneous tissue, unspecified; M86.9 Osteomyelitis, unspecified
CPT/HCPCS: 96365; 96366; G0463; J3370

== ENCOUNTER → 2019-11-05 15:16 | Outpatient (CLI) | payer MEDICARE, SELFPAY ==
[2019-11-05 15:37] LABS: Basophils # 0.1 K/mm3 (0-0.2); Basophils % 0.5 % (0.1-2.0); Eosinophils # 0.7 K/mm3 (0.0-0.4); Eosinophils % 6.5 % (0.1-12.0); Hematocrit 40.9 % (37.0-47.0); Hemoglobin 13.3 g/dL (12.2-16.2); Lymphocytes # 2.8 K/mm3 (0.7-4.5); Lymphocytes % 27.1 % (10-50); Mean Corpuscular HGB Conc 32.4 g/dL (31.8-35.4); Mean Corpuscular Hemoglobin 29.1 pg (27.0-31.2); Mean Corpuscular Volume 89.9 fl (81-99); Mean Platelet Volume 7.6 fl (7.4-10.4); Monocytes # 0.8 K/mm3 (0.1-1.0); Monocytes % 7.5 % (1.7-9.3); Neutrophils # 6.1 K/mm3 (1.8-7.8); Neutrophils % 58.4 % (37.0-80.0); Platelet Count 325 K/mm3 (142-424); Red Blood Count 4.55 M/mm3 (4.20-5.40); Red Cell Distribution Width 12.7 % (11.5-17.5); White Blood Count 10.5 K/mm3 (4.8-10.8)
[2019-11-05 16:25] LABS: Alanine Aminotransferase 21 U/L (12-78); Albumin Level 3.7 gm/dL (3.4-5.0); Albumin/Globulin Ratio 1.4 (1.1-1.8); Alkaline Phosphatase 77 U/L (46-116); Anion Gap 8.2 mEq/L (5-15); Aspartate Amino Transferase 13 U/L (15-37); Bilirubin,Total 0.4 mg/dL (0.2-1.0); Blood Urea Nitrogen 27 mg/dL (7-18); Calcium 8.8 mg/dL (8.5-10.1); Carbon Dioxide 33 mmol/L (21.0-32.0); Chloride 102 mmol/L (98-107); Creatinine,Serum 1.28 mg/dL (0.55-1.02); Estimated Glomerular Filt Rate 40 ml/min (>60); GFR (African American) 49 ML/MIN (>60); Globulin 2.7 gm/dl (1.3-3.2); Glucose 127 mg/dL (74-106); Potassium 4.2 mmoL/L (3.5-5.1); Sodium 139 mmol/L (136-145); Total Protein,Serum 6.4 gm/dL (6.4-8.2)
[2019-11-05 16:34] LABS: C-Reactive Protein < 0.2 mg/dL (0.0-0.9)
[2019-11-05 17:20] LABS: Erythrocyte Sedimentation Rate 20 mm/hr (0-30)
== END ==
PROVIDERS: Visit Provider Podiatrist
DX: E11.621 Type 2 diabetes mellitus with foot ulcer (principal); L97.529 Non-pressure chronic ulcer of other part of left foot with unspecified severity; Z51.89 Encounter for other specified aftercare; I96 Gangrene, not elsewhere classified; Z79.84 Long term (current) use of oral hypoglycemic drugs
CPT/HCPCS: 36415; 80053; 85025; 85651; 86140

== ENCOUNTER → 2020-01-03 11:39 | Outpatient (CLI) | payer MEDICARE, SELFPAY ==
[2020-01-03 13:09] LABS: Alanine Aminotransferase 14 U/L (12-78); Albumin Level 3.8 g/dl (3.5-5.0); Alkaline Phosphatase 72 U/L (38-126); Aspartate Amino Transferase 23 U/L (14-36); Bilirubin,Indirect 0.3 mg/dL (0.0-0.9); Bilirubin,Total 0.3 mg/dl (0.2-1.3); Bilirubin,Unconjugated 0.3 mg/dL (0.0-1.1); Chol/HDL Ratio 2.8 (1-3.5); Cholesterol 160 mg/dl (140-200); HDL Cholesterol 58 mg/dl (40-60); Total Protein,Serum 6.2 g/dl (6.3-8.2); Triglycerides 106 mg/dl (30-150); VLDL Cholesterol 21 mg/dL (0-40)
[2020-01-03 13:20] LABS: Direct LDL Cholesterol 83.12 mg/dL (100-129)
[2020-01-03 13:28] LABS: Free T4 (Free Thyroxine) 1.83 ng/dl (0.78-2.19)
[2020-01-03 13:41] LABS: Thyroid Stimulating Hormone 2.99 uIU/mL (0.465-4.68)
== END ==
PROVIDERS: Visit Provider Nurse Practitioner Family
DX: E11.9 Type 2 diabetes mellitus without complications (principal); E78.2 Mixed hyperlipidemia; I10 Essential (primary) hypertension; I34.0 Nonrheumatic mitral (valve) insufficiency; I48.0 Paroxysmal atrial fibrillation; R53.83 Other fatigue; I27.20 Pulmonary hypertension, unspecified; I48.91 Unspecified atrial fibrillation; J44.9 Chronic obstructive pulmonary disease, unspecified; J45.901 Unspecified asthma with (acute) exacerbation; R06.09 Other forms of dyspnea; R94.31 Abnormal electrocardiogram [ECG] [EKG]; I25.10 Atherosclerotic heart disease of native coronary artery without angina pectoris; Z79.01 Long term (current) use of anticoagulants
CPT/HCPCS: 36415; 80061; 80076; 84439; 84443

== ENCOUNTER → 2020-01-09 16:36 | Outpatient (CLI) | payer MEDICARE, SELFPAY | PROVIDERS: Visit Provider Nurse Practitioner | DX: E11.621 Type 2 diabetes mellitus with foot ulcer (principal); L97.519 Non-pressure chronic ulcer of other part of right foot with unspecified severity | CPT/HCPCS: 87070; 87077; 87186; 87205 ==

== ENCOUNTER → 2020-02-28 08:55 | Outpatient (CLI) | payer MEDICARE, SELFPAY ==
--- NOTE | 2020-02-28 08:57 | CA_ITS ---
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: Sania Reyes RVT Ht: 4 ft 11 in Wt: 132lbs BSA: 1.55 BP: 122/89 mmHg Indications: A-FIB,CAD,CM,HTN,COPD,SOA,DM,HLD 2D Dimensions LVOT 1.46 cm (M/F) 1.5-2.5 M-Mode Dimensions RVDd 2.88 cm (0.9-2.6) LVDd 4.96 cm (3.5-5.7) LVDs 3.72 cm (3.5-5.7) IVSd 1.64 cm (0.6-1.1) PWd 0.30 cm (0.6-1.1) EF (Teich) 49.30% FS 25.00% EDV (Teich) 116.10 mL ESV (Teich) 58.90 mL LV Diastology E/A Ratio 0.46 Mitral Valve MV A Velocity 104.00 (40-130 cm/s) Left Ventricle Left atrium is moderately enlarged, left ventricle is normal size, mild concentric left ventricular hypertrophy, visually estimated ejection fraction approximately 50%, there is abnormal septal motion. Grade 1 diastolic dysfunction seen without tissue Doppler evidence of raise left atrial pressure. Right Ventricle Right atrium and right ventricle are mildly enlarged with normal contractility. Aortic Valve Aortic valve is thickened and calcified, leaflet continue to display good mobility, there is no aortic stenosis or aortic insufficiency. Mitral Valve Mitral valve leaflets are minimally thickened, there is mild mitral regurgitation. Tricuspid Valve Tricuspid valve grossly normal, there is mild tricuspid regurgitation, Pulmonic Valve Pulmonic valve is poorly visualized. Great Vessels Aortic root is normal size. Pericardium No significant pericardial effusion noted. Conclusion 1. Biatrial enlargement, normal left ventricular size, mild concentric left ventricular hypertrophy, visually estimated ejection fraction 50% with no regional wall motion abnormality, grade 1 diastolic dysfunction seen without tissue Doppler evidence of raise left atrial pressure. There is abnormal septal motion. 2. Mildly enlarged right ventricle with normal contractility. 3. Thickened and calcified aortic valve without aortic stenosis aortic insufficiency. 4. Mild mitral and tricuspid regurgitation. 5. No significant pericardial effusion noted. Electronically signed by : Mango Daily, 02/28/2020 12:40:36
== END ==
PROVIDERS: PCP Family Medicine; Visit Provider Nurse Practitioner Family
DX: E11.9 Type 2 diabetes mellitus without complications (principal); E78.2 Mixed hyperlipidemia; I10 Essential (primary) hypertension; I34.0 Nonrheumatic mitral (valve) insufficiency; I48.0 Paroxysmal atrial fibrillation; J44.9 Chronic obstructive pulmonary disease, unspecified; R06.09 Other forms of dyspnea; R53.83 Other fatigue; R94.31 Abnormal electrocardiogram [ECG] [EKG]
CPT/HCPCS: 93306

== ENCOUNTER 2020-05-27 16:35 | Observation (INO) | payer MEDICARE, SELFPAY ==
[2020-05-27] VITALS (13 sets, daily range): BP systolic 144–238; BP diastolic 51–82; PULSE 46–57; RESP 10–16; TEMP 36.6; O2SAT 93–100; BMI 26.2
--- NOTE | 2020-05-27 16:51 | ECG_ITS ---
APPROVED REPORT Exam: Resting ECG HR:47 bpm ECG Measurements Heart Rate 47 AXES OR 152 P 49 QRSd 148 QRS -36 QT 494 T 126 QTc 437 <Conclusion> Marked sinus bradycardia Left axis deviation Left bundle branch block Abnormal ECG Electronically signed by : Stanton Ruelas, 05/28/2020 14:02:43
--- NOTE | 2020-05-27 16:51 | XR_ITS ---
PROCEDURE: XR CHEST 2V CLINICAL HISTORY: weakness Heart disease, coronary artery disease, weakness COMPARISON: CR CXR2V XR chest 2V from 03/31/2018 CR CXR1VP XR chest portable from 06/03/2018 CR XR CHEST PORTABLE PICC PLAC from 08/23/2019 FINDINGS: The cardiomediastinal silhouette and pulmonary vascularity are within normal limits. There are atelectatic changes in the left lower lobe. There is a calcified granuloma in the left lower lobe at 17 mm. There is minimal blunting of the right CP angle. Degenerative changes are present in the spine and in the shoulders. IMPRESSION: Left lower lobe atelectasis. Small right effusion. Stable left lower lobe nodule Dictated b Loy Li MD 05/28/2020 06:14 Loy Li MD in [place] 05/28/2020 06:14
--- NOTE | 2020-05-27 16:51 | CT_ITS ---
PROCEDURE: CT HEAD/BRAIN WO CON CLINICAL INDICATION: weakness Weakness and numbness COMPARISON: CT HDWO CT HEAD W/O CONTRAST from 10/28/2016 TECHNIQUE: Axial images obtained. All CT scans at the facility use one or more dose reduction, viz: automated exposure control, ma/kV adjustment per patient size (including targeted exams where dose is matched to indication, i.e. head), or iterative reconstruction technique. FINDINGS: No midline shift, mass effect, intracranial hemorrhage, hydrocephalus, or extra-axial fluid collection is evident. There is generalized atrophy with hypoattenuation of the periventricular white matter consistent with microangiopathic changes. The calvarium has an unremarkable appearance. No mastoid effusion. There has been prior nasal/sinus surgery with opacification of the right frontal and ethmoid sinuses. IMPRESSION: 1. No acute intracranial findings. 2. Prior prior sinus surgery with chronic sinus disease Dictated b Loy Li MD 05/28/2020 07:20 Loy Li MD in [place] 05/28/2020 07:20
--- NOTE | 2020-05-27 16:59 | PC.NURSE ---
PT gone to CT
[2020-05-27 17:11] LABS: Basophils # 0.1 K/mm3 (0-0.2); Basophils % 0.5 % (0.1-2.0); Eosinophils # 0.8 K/mm3 (0.0-0.4); Eosinophils % 6.4 % (0.1-12.0); Hematocrit 39.1 % (37.0-47.0); Hemoglobin 13.7 g/dL (12.2-16.2); Lymphocytes % 39.8 % (10-50); Mean Corpuscular HGB Conc 34.9 g/dL (31.8-35.4); Mean Corpuscular Hemoglobin 31.6 pg (27.0-31.2); Mean Corpuscular Volume 90.5 fl (81-99); Mean Platelet Volume 8.2 fl (7.4-10.4); Monocytes # 0.8 K/mm3 (0.1-1.0); Monocytes % 6.8 % (1.7-9.3); Neutrophils # 5.8 K/mm3 (1.8-7.8); Neutrophils % 46.5 % (37.0-80.0); Platelet Count 320 K/mm3 (142-424); Red Blood Count 4.32 M/mm3 (4.20-5.40); Red Cell Distribution Width 13.2 % (11.5-17.5); White Blood Count 12.4 K/mm3 (4.8-10.8)
[2020-05-27 17:13] LABS: Anion Gap 13.1 mEq/L (5-15); Blood Urea Nitrogen 27 mg/dl (7-17); Calcium 9.3 mg/dl (8.4-10.2); Carbon Dioxide 29 mmol/L (22.0-30.0); Chloride 101 mmol/L (98-107); Creatinine Clearance Estimated 39 mL/min (50-200); Estimated Glomerular Filt Rate 48 ml/min (>60); GFR (African American) 58 ML/MIN (>60); Glucose 143 mg/dl (74-100); Potassium 4.1 mmoL/L (3.5-5.1); Sodium 139 mmol/L (136-145)
--- NOTE | 2020-05-27 17:15 | PC.NURSE ---
pt returned from CT
[2020-05-27 17:31] LABS: Troponin I < 0.01 ng/ml (0.00-0.034)
--- NOTE | 2020-05-27 19:14 | HMH.EDGENADL ---
ED Disposition Clinical Impression: Anxiety, Elevated blood pressure reading Disposition: Home, Self-Care Condition on Discharge: Good Instructions: DI for Muscle Weakness Referrals: Yousuf Valencia MD [Primary Care Provider] - - Critical Care Critical Care Time: No Attestation: On 05/27/20, the high probability of a clinically significant, sudden or life threatening deterioration of the following system(s) required my full and direct attention, intervention and personal management. The time I documented below is in addition to time spent performing reported procedures but includes the following listed in this critical care notation. Medical Decision Making - Medical Records Medical records reviewed: Yes: I reviewed the patient's medical records. - Hermes Inquiry Pt receiving controlled substance: No Vital Signs: 05/27/20 16:36 05/27/20 16:45 05/27/20 17:49 Temperature 98 F Temperature Source Temporal Artery Scan Pulse Rate [Right] 49 L 51 L 55 L Respiratory Rate 16 16 16 Blood Pressure [Right Arm] 186/66 H 180/64 H Blood Pressure Mean [Right Arm] 106 102 Blood Pressure Source [Right Arm] Automatic Cuff Automatic Cuff Blood Pressure Position [Right Arm] Sitting Sitting 02 Sat by Pulse Oximetry 98 98 100 Oxygen Delivery Method Room Air Room Air Room Air 05/27/20 19:07 Temperature Temperature Source Pulse Rate [Right] 47 L Respiratory Rate Blood Pressure [Right Arm] 165/68 H Blood Pressure Mean [Right Arm] 100 Blood Pressure Source [Right Arm] Automatic Cuff Blood Pressure Position [Right Arm] Sitting 02 Sat by Pulse Oximetry 100 Oxygen Delivery Method Room Air - Lab Data Lab results reviewed: Yes: I reviewed the patient's lab results. Lab Results 05/27/20 16:50: WBC 12.4 H, RBC 4.32, Hgb 13.7, Hct 39.1, MCV 90.5, MCH 31.6 H, MCHC 34.9, RDW 13.2, Plt Count 320, MPV 8.2, Neut % (Auto) 46.5, Lymph % (Auto) 39.8, [place] % (Auto) 6.8, Eos % (Auto) 6.4, Baso % (Auto) 0.5, Neut # (Auto) 5.8, Lymph # (Auto) 5.0 H, [place] # (Auto) 0.8, Eos # (Auto) 0.8 H, Baso # (Auto) 0.1 05/27/20 16:50: Sodium 139, Potassium 4.1, Chloride 101, Carbon Dioxide 29, Anion Gap 13.1, BUN 27 H, Creatinine 1.10 H, Estimated Creat Clear 39, Estimated GFR 48 L, Est GFR ( Amer) 58 L, Glucose 143 H, Calcium 9.3, Troponin I < 0.01 Result diagrams: 05/27/20 16:50 05/27/20 16:50 Orders (Tests/Meds): ORDERS Category Date Time Status CT head/brain wo con Stat Cat Scan 05/27/20 16:51 Taken XR chest 2V Stat Exams 05/27/20 16:51 Taken Troponin I Q3H Lab 05/27/20 20:00 Ordered Troponin I Q3H Lab 05/27/20 23:00 Ordered - Radiology Data #1 Image(s): Chest Preliminary Findings: Normal/NAD - ECG Data Tracing #1 I reviewed this ECG and interpreted as documented below: ECG normal with no acute: arrhythmias, ischemia, conduction abnormalities, chamber hypertrophy Conduction abnormalities present: LBBB (Present on previous EKGs) General Adult HPI - General Chief complaint: Weakness Stated complaint: weakness Time Seen by Provider: 05/27/20 19:00 Mode of Arrival: EMS Limitations: No Limitations Description of Symptoms (Recalled from ER Triage Doc. by RN): Pt advises she had a spell when she became dizzy and just felt like she wasn't there. - History of Present Illness HPI narrative: 80-year-old female comes in complaining of some lightheadedness dizziness and fatigue. She had a sense of impending doom about 30 or 40 minutes prior to arrival here at the ED and presently she feels much better. And she denies any sort of pain or lightheadedness or dizziness at this time.Patient denies any recent cough or shortness of breath, patient denies any sore throat or headache, patient denies any loss of taste or smell, patient denies any malaise or fatigue, patient denies any abdominal pain nausea vomiting or diarrhea. - Related Data Home Medications Medication Instructions Recorded
[2020-05-27 19:49] LABS: Troponin I 0.02 ng/ml (0.00-0.034)
--- NOTE | 2020-05-27 20:28 | PC.NURSE ---
evaluating patient for discharge and noted incr htn; spoke with dr blunt who goes in to eval patient. new orders noted.
--- NOTE | 2020-05-27 20:33 | PC.NURSE ---
lab notified of digoxin level.
--- NOTE | 2020-05-27 20:36 | PC.NURSE ---
call returned from dr reyes
[2020-05-27 20:47] LABS: Microscopic, Urine URINE MICROSCOPIC (MICROSCOPIC)
[2020-05-27 20:54] LABS: Appearance,Urine CLEAR (Clear); Bilirubin,Urine Negative (Negative); Blood, Urine Negative (Negative); Color,Urine YELLOW (Yellow); Glucose,Urine (UA) Negative (Negative); Ketones,Urine Negative (Negative); Leukocyte Esterase,Urine 1+ (Negative); Nitrate,Urine Negative (Negative); PH,Urine 5.5 (5.0-8.5); Protein,Urine Negative (Negative); Urobilinogen,Urine 0.2 EU/dl (0.2)
[2020-05-27 21:02] LABS: Bacteria,Urine Trace /lpf; Squamous Epithelial Cell,Urine Occasional #/hpf (0-5)
[2020-05-27 21:03] LABS: Adenovirus,PCR Not Detected (NotDetected); Bordetella Pertussis Not Detected (NotDetected); Chlamydophila Pneumoniae, PCR Not Detected (NotDetected); Coronavirus 19, PCR Not Detected (NotDetected); Coronavirus 229E Not Detected (NotDetected); Coronavirus NL63 Not Detected (NotDetected); Coronavirus OC43 Not Detected (NotDetected); Coronovirus HKU1,PCR Not Detected (NotDetected); Human Metapneumovirus Not Detected (NotDetected); Influenza A, PCR Not Detected (NotDetected); Influenza AH1, 2009 Not Detected (NotDetected); Influenza AH1, PCR Not Detected (NotDetected); Influenza AH3,PCR Not Detected (NotDetected); Influenza B, PCR Not Detected (NotDetected); Mycoplasma Pneumoniae, PCR Not Detected (NotDetected); Parainfluenza 1, PCR Not Detected (NotDetected); Parainfluenza 2, PCR Not Detected (NotDetected); Parainfluenza 3, PCR Not Detected (NotDetected); Parainfluenza 4, PCR Not Detected (NotDetected); Respiratory Syncytial Virus Not Detected (NotDetected)
[2020-05-27 21:22] LABS: T4 (Thyroxine) 11.2 ug/dl (5.53-11.0)
[2020-05-27 21:35] LABS: Thyroid Stimulating Hormone 2.42 uIU/mL (0.465-4.68)
--- NOTE | 2020-05-27 22:29 | PC.NURSE ---
continuing waiting on covid results. family updated. pt updated.
[2020-05-27 23:21] LABS: Troponin I 0.03 ng/ml (0.00-0.034)
[2020-05-28] VITALS (28 sets, daily range): BP systolic 103–191; BP diastolic 43–85; PULSE 50–94; RESP 14–19; TEMP 36.4–36.8; O2SAT 94–99; BMI 24.6; BMI 24.4
--- NOTE | 2020-05-28 | IR_ITS ---
APPROVED REPORT PROCEDURES 1. Pocket formation for Permanent Pacemaker Placement. 2. Placement of an atrial sensing and pacing coil into the right atrial appendage. 3. Placement of a ventricular sensing and pacing coil in the right ventricular apex. 4. Permanent Pacemaker Placement. INDICATION Symptomatic Bradycardia Informed consent was obtained prior to the procedure. COMPLICATIONS None Estimated Blood Loss: less than 10 ml TECHNIQUE 1% Lidocaine with epinephrine used to anesthetized the left anterior aspect of the chest. Scalpel was used to make the initial cutaneous incision while electrocautery was used to dissect down tinto the fascia. The fascia was lifted off the pectoralis muscle and digitally manipulated creating a pocket for the pacemaker. The patient was then placed in Trendelenburg position and the subclavian vein was accessed twice via the Selinger technique, there are two wires in the vein. A 6 [place]yr[place] sheath was placed under fluoroscopic guidance into the subclavian vein over one of the wires while keeping the other wire in place within the subclavian vein. The dilator was removed from the sheath. Using fluoroscopic guidance, the ventricular lead was placed into the right ventricular apex, screwed and secured into place. Electronic interrogation proved acceptable thresholds and voltage within the lead. Using 3-0 silk, the ventricular lead was then secured into place. Lead was secured to the facia using the 3-0 silk. Following this, the sheath was pealed away. An additional 6 [place] fresh sheath and dilator was placed over the existing wire. Using fluoroscopic guidance, the atrial lead was the placed into the right atrial appendage and screwed and secured in place. Electrical interrogation demonstrated acceptable thresholds and voltage number. The atrial lead was then secured into place using 3-0 silk. 1 gram of Ancef was used to flush the pocket. Following the pacemaker generator being secured to the fascia and in place, Monocryl was used to close the subcutaneous layers while phan were used to close the cutaneous layer. A pressure dressing was placed and the patient was transferred to the postop holding area in stable condition for postoperative care. INTERROGATION [facility] [employer] DR IS-1 Generator Model number: L311 Generator Serial number: [id number] [facility] [place] MRI IS-1 Atrial lead model number: 7740 Atrial lead serial number: [id number] P-wave: 2.0 mV Impedence: 590 ohms Threshold: 1.4V INGEVITY +IS-1 Right Ventricular lead model number: 7841 Right Ventricular lead serial number: [id number] R-wave: 12.0 mV Impedence: 1066 ohms Threshold: 0.6V Pacing Parameters: Mode: DDDR Base/Max Track: 60/130 ppm No diaphragmatic stimulation at 10 volts. IMPRESSION 1. Successful pocket formation for Permanent Pacemaker Placement. 2. Successful placement of an atrial sensing and pacing coil into the right atrial appendage. 3. Successful placement of a ventricular sensing and pacing coil in the right ventricular apex. 4. Successful permanent Pacemaker Placement. PLAN 1. post-op wound care. Electronically signed by : Sage Chadwick, 05/29/2020 10:26:34
[2020-05-28 01:01] LABS: Rhinovirus/Enterovirus Detected (NotDetected)
--- NOTE | 2020-05-28 01:38 | PC.NURSE ---
PT ARRIVED TO THE FLOOR VIA W/C FROM ED AT [id number].
--- NOTE | 2020-05-28 05:59 | PC.NURSE ---
No complaints reported to staff since arriving to the floor. Granddaughter at bedside during the night. Telemetry shows NSR w/ BBB and inverted t's. Ptg states she can have someone bring her medication in the morning. Granddaughter states the pt doesn't always take her meds as she should.
--- NOTE | 2020-05-28 06:14 | PC.NURSE ---
Mckay MERIDA NOTIFIED OF CONSULT
[2020-05-28 06:54] LABS: POC Glucose,Bedside 127 (70-110)
--- NOTE | 2020-05-28 07:23 | P.CONPHA_ITS ---
[facility] Pharmacy VTE Monitoring - Patient Demographics Admission date: 05/27/20 Report Date: 05/28/20 Time: 07:23 Allergies/Adverse Reactions: Patient Allergies codeine [CODEINE] Allergy (Unknown, Verified 05/15/20 11:51) Height: 1.5 m Weight: 55.395 kg Patient Problems: Current Active Problems Anxiety (Acute) Elevated blood pressure reading (Acute) - VTE Risk Labs: VTE Related Lab Results Hgb 13.7 g/dL (12.2-16.2) 05/27/20 16:50 Hct 39.1 % (37.0-47.0) 05/27/20 16:50 Plt Count 320 K/mm3 (142-424) 05/27/20 16:50 BUN 27 mg/dl (7-17) H 05/27/20 16:50 Creatinine 1.10 mg/dl (0.52-1.04) H 05/27/20 16:50 Estimated Creat Clear 39 mL/min (50-200) 05/27/20 16:50 Was VTE Risk Assessment Performed: Yes VTE Score: 4 VTE Risk Level: Low Risk - Prophylaxis VTE Prophylaxis Ordered?: Yes Types of VTE Prophylaxis: TEDS Knee High Location of Applied Device: Bilateral Lower Extremeties - VTE Diagnosis Confirmed Treatment or plan recommended: Continue Current Treatment
[2020-05-28 07:28] LABS: Basophils # 0.1 K/mm3 (0-0.2); Basophils % 0.6 % (0.1-2.0); Eosinophils # 0.6 K/mm3 (0.0-0.4); Eosinophils % 6.5 % (0.1-12.0); Hematocrit 36.9 % (37.0-47.0); Lymphocytes # 3.1 K/mm3 (0.7-4.5); Lymphocytes % 32.6 % (10-50); Mean Corpuscular Hemoglobin 30.4 pg (27.0-31.2); Mean Corpuscular Volume 92.3 fl (81-99); Mean Platelet Volume 8.1 fl (7.4-10.4); Monocytes # 0.6 K/mm3 (0.1-1.0); Monocytes % 6.2 % (1.7-9.3); Neutrophils # 5.2 K/mm3 (1.8-7.8); Platelet Count 258 K/mm3 (142-424); Red Cell Distribution Width 13.2 % (11.5-17.5); White Blood Count 9.6 K/mm3 (4.8-10.8)
[2020-05-28 07:30] LABS: Chloride 109 mmol/L (98-107); Potassium 4.2 mmoL/L (3.5-5.1); Sodium 142 mmol/L (136-145)
[2020-05-28 07:33] LABS: Anion Gap 7.2 mEq/L (5-15); Blood Urea Nitrogen 26 mg/dl (7-17); Calcium 8.7 mg/dl (8.4-10.2); Carbon Dioxide 30 mmol/L (22.0-30.0); Creatinine Clearance Estimated 40 mL/min (50-200); Estimated Glomerular Filt Rate 53 ml/min (>60); GFR (African American) 65 ML/MIN (>60); Glucose 109 mg/dl (74-100); Magnesium 2.1 mg/dl (1.6-2.3)
[2020-05-28 07:42] LABS: Hemoglobin 12.4 g/dL (12.2-16.2)
--- NOTE | 2020-05-28 07:56 | HMH.HP ---
*Admission Date: 05/27/20 <Yuliana Lombardi - 05/28/20 08:15> *Chief complaint: Near syncope <Yuliana Lombardi - 05/28/20 08:15> *History of present illness: Ms. Zaomra is a 80-year-old female with a history of diabetes mellitus, hypertension, hypercholesteremia, asthma, COPD, CHF, coronary artery disease, and atrial fibrillation who presented to the emergency room via EMS last p.m. after experiencing a near syncopal episode at home. She describes that at about 4 PM she suddenly developed tingling all over her body. She states she could move but she could not do anything. She called for help and family came to her and arranged her transport to the hospital. She denies having any dizziness, chest pain, palpitations, problems with speaking swallowing. She did have some nausea and vomited once in the ambulance. She describes having an upper respiratory infection with productive cough and postnasal drainage. She denies sore throat, ear pain and fever. With evaluation in the emergency room patient was found to be hypertensive With blood pressure 186/66 down to 165/68. White blood cell count was elevated at 12,400. H&H were good. BUN 27 and creatinine 1.1 -slightly elevated renal function..EKG showed Left bundle branch block. Due to her cardiac history and hypertension it was decided to admit her for further evaluation and treatment. Respiratory panel positive for entero-/rhino PCR. COVID?19 PCR was negative. Renal function returned to normal this a.m. White blood count is normal now at 9600. Patient was started on IV fluids at 50 an hour.Chest x-ray showed some small right effusion and stable left lower nodule; Left lower lobe atelectasis as well. CT of the head revealed No acute intracranial findings And chronic sinus diseasehis a.m. patient has slept. This a.m. patient feels fine. She really does not know why she is here. She continually denies dizziness, chest pain, palpitations and shortness of breath. <Yuliana Lombardi - 05/28/20 08:27> [facility] History Medical History: Reports:: Arrhythmia, Asthma, Atherosclerotic Heart Disease, Atrial Fibrillation, Congestive Heart Failure, Chronic Obstructive Pulmonary Disease (COPD), Coronary Artery Disease, Diabetes Mellitus Type 2, Heart Murmur, Hyperlipidemia, Hypertension, Peripheral Artery Disease, Renal Insufficiency Denies:: Cancer, Diabetes Mellitus Type 1, Internal Pacemaker, MRSA, Seizures <Yuliana Lombardi 05/28/20 08:15> *Have you ever received a pneumonia vaccine?: Yes <Yuliana Lombardi 05/28/20 08:15> *Have you received a flu vaccine this season?: No <Yuliana Lombardi 05/28/20 08:15> Other Medical History: Reports: Arthritis, Cataracts, Other <Yuliana Lombardi 05/28/20 08:15> Laterality Cases: Bilateral: Tonsillectomy <Yuliana Lombardi 05/28/20 08:15> Other Surgeries: Yes: Angiogram, Angioplasty, Cardiac Catheterization, Coronary Stent, Sinus Surgery, Tubal Ligation, Other (PAD with multiple stents to bilateral legs). No: Pacemaker <Yuliana Lombardi 05/28/20 08:15> Amputation: No <Yuliana Lombardi 05/28/20 08:15> Fractures: No <Yuliana Lombardi 05/28/20 08:15> - *Social History Last grade of school completed: High school graduate <Yuliana Lombardi 05/28/20 08:15> Smoking Status: Never smoker <Yuliana Lombardi 05/28/20 08:15> Alcohol Intake: never <Yuliana Lombardi 05/28/20 08:15> Alcohol Intake Frequency:: other <Yuliana Lombardi 05/28/20 08:15> Substance Use Type: denies use <Yuliana Lombardi 05/28/20 08:15> *Occupational Status:: retired <Yuliana Lombardi 05/28/20 08:15> Housing: house <Yuliana Lombardi 05/28/20 08:15> Household Members: family <Yuliana Lombardi 05/28/20 08:15> *Travel in the last 8 weeks: None <Yuliana Lombardi 05/28/20 08:15> Family Hx:: Anemia, Coronary Artery Disease, Diabetes, Heart Attack <Yuliana Lombardi 05/28/20 08:15> Review of Systems - Constitutional Denies fatigue, Denies fever(s) <Yuliana Lombardi 05/28/20 08:15> - Eyes Denies change in vis
--- NOTE | 2020-05-28 08:16 | CA_ITS ---
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 Operator: Sania Reyes RVT Laterality: Bilateral Study Quality: Good Indications: tingling all over Risk Factors Hypertension: Hyperlipidemia Doppler Spectral Velocity Analysis ECA (R) 84.00/7.60 cm/s ECA (L) 127.60/8.10 cm/s dICA (R) 111.10/20.40 cm/s dICA (L) 142.20/26.80 cm/s Mary (R) 121.00/17.20 cm/s Mary (L) 198.10/35.70 cm/s pICA (R) 143.20/34.40 cm/s pICA (L) 79.30/19.00 cm/s dCCA (R) 53.90/10.70 cm/s dCCA (L) 78.40/13.80 cm/s pCCA (R) 73.90/13.00 cm/s pCCA (L) 85.90/14.30 cm/s Vert (R) 59.20/10.50 cm/s Vert (L) 48.80/7.60 cm/s ICA/CCA 2.66 ICA/CCA 1.81 Findings Study suggests 20-49% stenosis of the right internal cartoid artery. Study suggests 50-69% stenosis of the left internal cartoid artery. Left internal cartoid artery is tourtous. Antegrade flow seen bilateral vertebral arteries. Conclusion Study suggests 20-49% stenosis of the right internal cartoid artery. Study suggests 50-69% stenosis of the left internal cartoid artery. Left internal cartoid artery is tourtous. Antegrade flow seen bilateral vertebral arteries. Electronically signed by : Loy Li MD 05/28/2020 16:13:36
--- NOTE | 2020-05-28 09:33 | HMH.CNCARD ---
History of Present Illness Consult date: 05/28/20 Requesting physician: Alexis Montanez Chief complaint: near syncope Additional Medical History:: 1. Coronary artery disease A. Drug-eluting stent placement to LAD, 05/24/18 B. Shortness of breath with Brilinta, resolved with switching to Plavix 2. New onset atrial fibrillation, 05/2018 A. Amiodarone therapy started 06/02/18, stopped 03/2020 due to fatigue B. TSH normal 03/2018 3. Diabetes mellitus, type II 4. Hypertension A. Echo, 02/2020, 1. Biatrial enlargement, normal left ventricular size, mild concentric left ventricular hypertrophy, visually estimated ejection fraction 50% with no regional wall motion abnormality, grade 1 diastolic dysfunction seen without tissue Doppler evidence of raise left atrial pressure. There is abnormal septal motion. 2. Mildly enlarged right ventricle with normal contractility. 3. Thickened and calcified aortic valve without aortic stenosis aortic insufficiency. 4. Mild mitral and tricuspid regurgitation. 5. No significant pericardial effusion noted. 5. Hyperlipidemia A. On statin 6. Mild chronic kidney disease, stage II A. GFR 44, creatinine 1.19 on 07/2019 7. COPD/asthma 8. History of cardiomyopathy A. Echocardiogram, 04/2018, CONCLUSION: 1. Mildly enlarged left atrium, normal left ventricular size, moderate concentric left ventricular hypertrophy, reduced left ventricular systolic function, visually estimated ejection fraction 30%, left ventricle is globally hypokinetic, there is abnormal septal motion. 2. Moderate mitral and mild tricuspid regurgitation, calculated right ventricular systolic pressure is 54 mmHg consistent with moderate pulmonary hypertension, grade 1 diastolic dysfunction seen with tissue Doppler evidence of raised left atrial pressure. 3. No significant pericardial effusion noted. B. Right and left heart cath, 05/2018, ANGIOGRAPHIC RESULTS: 1. The left main artery normal 2. The left anterior descending artery has proximal normal segment followed by a mid vessel angiographically indeterminate stenosis between 40 and 70%. The distal vessel is highly tortuous 3. The circumflex artery is dominant and large caliber vessel and angiographically normal 4. The right coronary artery nondominant and normal 5. The GONZALES ventriculogram reveals appears preserved at 50% 6. The left ventricular end-diastolic pressure 10 HEMODYNAMICS: Pulmonary artery occlusion pressure is 8 mm Hg. Pulmonary arterial pressure is 12 mm Hg. Right atrial pressure is 35/20 mm Hg. SATURATIONS: PA is 83 %. RA is 85 %. IMPRESSION: 1. Hemodynamically severe mid LAD disease 2. Preserved ejection fraction 3. Normal left ventricular end-diastolic pressure 4. Successful stenting of the mid LAD hemodynamic the severe disease reduced to 0% with 1 drug-eluting stent 5. Mild pulmonary hypertension 9. PAD with LLE ischemic foot, 02/2019 A. LE runoff, 02/2019, 1. Patent stent throughout the right superficial femoral artery with moderate in-stent restenosis as described above with single vessel runoff to the right foot via the anterior tibialis artery 2. Severe diffuse occlusion stenosis of the left superficial femoral artery and left popliteal artery with single vessel runoff to the left foot via the anterior tibialis artery 3. Attempted angioplasty of the left superficial femoral artery and left popliteal artery which was unsuccessful B. LE runoff, 03/2019 : 1. Successful reconstruction of the left superficial femoral artery and left popliteal artery 100% occlusion with limb threatening ischemia reduced to 0% with 3 self-expanding stents in a contiguous overlapping manner. 2. Triple therapy with ASA, Plavix and Xarelto for one month then stop either ASA or plavix. C. LE runoff, 07/2019, Acute on chronic peripheral artery disease with acute limb threatening ischemia to the left foot giving a co
[2020-05-28 10:55] LABS: POC Glucose,Bedside 142 (70-110)
--- NOTE | 2020-05-28 11:34 | PC.NURSE ---
RN aware of patients blood pressure being high.
--- NOTE | 2020-05-28 11:56 | PC.NURSE ---
BEDSIDE REPORT GIVEN TO Buck MAZARIEGOS RN. PT LEAVING FLOOR BY WHEELCHAIR TO [facility] AT THIS TIME.
--- NOTE | 2020-05-28 12:00 | P.PN_ITS ---
[facility] Anesthesia Checklist - Patient Identification Patient Identification: Arm Band, Verbal (Name & ) - Structural Data Admitted From: Inpatient Planned Operative Procedure/s: Placement of permanent pacemaker Consent for Planned Operative Procedure(s) Verified: Yes Verified Documents: Surgical Consent, History and Physical - NPO Status Verified Time NPO: 00:00 - Chart Verification Results Verified: CBC, BMP, ECG - Additional verifications Anesthesia Reactions: No - Airway Assessment C-Spine Mobility Assessed: Yes TMJ Mobility Assessed: Yes Dentition: Edentulous - Neurological Assessment Level of Consciousness: Awake, Alert, Appropriate, Follows Commands Hx Seizures: No Numbness or tingling in extremities: No - Anesthesia Plan Anesthesia Risk discussed: Yes Anesthesia Plan: Verified ASA Class: III (Emergent) Anesthesia Type: MAC [facility] History I have reviewed the patient's past medical history: Yes Medical History: Reports:: Arrhythmia (AFIB), Asthma, Atherosclerotic Heart Disease, Atrial Fibrillation, Congestive Heart Failure, Chronic Obstructive Pulmonary Disease (COPD), Coronary Artery Disease, Diabetes Mellitus Type 2, Heart Murmur, Hyperlipidemia, Hypertension, Peripheral Artery Disease, Renal Insufficiency Denies:: Cancer, Diabetes Mellitus Type 1, Internal Pacemaker, MRSA, Seizures *Have you ever received a pneumonia vaccine?: Yes *Have you received a flu vaccine this season?: No Other Medical History: Reports: Arthritis, Cataracts, Other Anesthesia experience/problems:: No prior complications Laterality Cases: Bilateral: Tonsillectomy Other Surgeries: Yes: Angiogram, Angioplasty, Cardiac Catheterization, Coronary Stent, Sinus Surgery, Tubal Ligation, Other (PAD with multiple stents to bilateral legs). No: Pacemaker Amputation: No Fractures: No - *Social History Last grade of school completed: High school graduate Smoking Status: Never smoker Alcohol Intake: never Alcohol Intake Frequency:: other Substance Use Type: denies use *Occupational Status:: retired Housing: house Household Members: family *Travel in the last 8 weeks: None Family Hx:: Anemia, Coronary Artery Disease, Diabetes, Heart Attack
--- NOTE | 2020-05-28 13:34 | PC.NURSE ---
REPORT RECEIVED FROM Buck MAZARIEGOS RN AT THIS TIME. AWAITING PT'S ARRIVAL.
--- NOTE | 2020-05-28 14:15 | XR_ITS ---
PROCEDURE: XR CHEST PORTABLE CLINICAL HISTORY: Confirm pacemaker/AID placement COMPARISON: CR [id number] XR chest portable from 06/03/2018 CR XR CHEST PORTABLE PICC PLAC from 08/23/2019 CR XR CHEST 2V from 05/27/2020 FINDINGS: A bipolar pacemaker has been placed by the left subclavian approach. The leads are in good position. No evidence of pneumothorax. Atelectatic change and/or infiltrate noted in both lower lobes slightly worse on the left and has developed on the right since the previous exam. Skin fold artifact present on the right. No acute bony abnormalities. Calcified granuloma once again noted left lower lobe IMPRESSION: Status post pacemaker placement with no evidence of immediate complications. Good lead placement. Bibasilar atelectasis and/or infiltrate Dictated b Loy Li MD 05/28/2020 14:43 Loy Li MD in [place] 05/28/2020 14:43
[2020-05-28 17:09] LABS: POC Glucose,Bedside 186 (70-110)
--- NOTE | 2020-05-28 17:15 | PC.NURSE ---
PT HAS RETURNED FROM INSERTION OF PACEMAKER IN MANAGEMENT TRAINEE AND REMAINS STABLE. DRESSING TO LEFT CHEST WALL REMAINS C/D/I, AREA AROUND INSERTION SITE IS SOFT TO TOUCH. PT HAS BEEN EDUCATED ON RESTRICTIONS POST PACEMAKER INSERTION, VERBALIZED UNDERSTANDING. PT REPORTED PAIN AT SITE OF INSERTION, RATING A 5/10, PRN PEROCET GIVEN W/ ADEQUATE RELIEF NOTED PER PT. PT'S BLOOD PRESSURE HAS ALSO IMPROVED SINCE RECEIVING USUAL BP MEDICATIONS THAT WERE RE-ORDERED BY GONZALO CUI THIS SHIFT. HOME MEDS ARE LOCKED IN DRAWER AND HAVE BEEN SENT TO PHARMACY. FAMILY IS CURRENTLY AT BEDSIDE. NO NEEDS VOICED AT THIS TIME. CALL [facility] W/IN REACH.
[2020-05-28 20:52] LABS: POC Glucose,Bedside 105 (70-110)
[2020-05-29] VITALS: BP 132/59; PULSE 60; RESP 18; TEMP 36.6; O2SAT 95
--- NOTE | 2020-05-29 03:48 | PC.NURSE ---
Pt A&OX4. pt c/o lt chest and neck pain medicated per DEC. Pt denies any SOA. lungs CTA. Pt has ambulated to bathroom several times with stand by assistance. Surgical dressing in place c/d/i. Pt has rested quietly this shift.Daughter at bedside
[2020-05-29 04:00] VITALS: BP 127/65; PULSE 60; PULSE 62; RESP 16; TEMP 36.7; O2SAT 96
[2020-05-29 05:41] LABS: POC Glucose,Bedside 88 (70-110)
[2020-05-29 06:10] LABS: Basophils # 0.1 K/mm3 (0-0.2); Basophils % 0.5 % (0.1-2.0); Eosinophils # 0.6 K/mm3 (0.0-0.4); Eosinophils % 5.8 % (0.1-12.0); Hematocrit 35.3 % (37.0-47.0); Lymphocytes # 3.6 K/mm3 (0.7-4.5); Lymphocytes % 34.1 % (10-50); Mean Corpuscular Hemoglobin 31.4 pg (27.0-31.2); Mean Corpuscular Volume 92.2 fl (81-99); Mean Platelet Volume 7.9 fl (7.4-10.4); Monocytes # 0.7 K/mm3 (0.1-1.0); Monocytes % 6.4 % (1.7-9.3); Neutrophils # 5.5 K/mm3 (1.8-7.8); Neutrophils % 53.2 % (37.0-80.0); Platelet Count 241 K/mm3 (142-424); Red Blood Count 3.82 M/mm3 (4.20-5.40); Red Cell Distribution Width 13.1 % (11.5-17.5); White Blood Count 10.4 K/mm3 (4.8-10.8)
[2020-05-29 06:13] LABS: Chloride 109 mmol/L (98-107); Potassium 4.2 mmoL/L (3.5-5.1); Sodium 138 mmol/L (136-145)
[2020-05-29 06:16] LABS: Anion Gap 6.2 mEq/L (5-15); Blood Urea Nitrogen 15 mg/dl (7-17); Carbon Dioxide 27 mmol/L (22.0-30.0); Creatinine Clearance Estimated 40 mL/min (50-200); Estimated Glomerular Filt Rate 69 ml/min (>60); GFR (African American) 84 ML/MIN (>60)
[2020-05-29 06:17] LABS: Calcium 8.2 mg/dl (8.4-10.2); Glucose 95 mg/dl (74-100)
[2020-05-29 07:11] VITALS: BMI 25.9
--- NOTE | 2020-05-29 07:29 | HMH.PNCARD ---
Subjective Date: 05/29/20 Time: 07:30 Principal diagnosis: Tachybradycardia syndrome Interval history: 80-year-old white female in bed in no acute distress. She states she feels 20 years younger after the pacemaker insertion. No complaints this morning. He is anxious to go home. Exam Vital signs and Labs for Last 24 Hours: Temp Pulse Resp BP Pulse Ox 98.0 F 62 16 127/65 96 05/29/20 04:00 05/29/20 04:00 05/29/20 04:00 05/29/20 04:00 05/29/20 04:00 Laboratory Results - last 24 hr 05/28/20 06:40: WBC 9.6, RBC 4.00 L, Hgb 12.4, Hct 36.9 L, MCV 92.3, MCH 30.4, MCHC 33.0, RDW 13.2, Plt Count 258, MPV 8.1, Neut % (Auto) 54.0, Lymph % (Auto) 32.6, [place] % (Auto) 6.2, Eos % (Auto) 6.5, Baso % (Auto) 0.6, Neut # (Auto) 5.2, Lymph # (Auto) 3.1, [place] # (Auto) 0.6, Eos # (Auto) 0.6 H, Baso # (Auto) 0.1 05/28/20 06:40: Sodium 142, Potassium 4.2, Chloride 109 H, Carbon Dioxide 30, Anion Gap 7.2, BUN 26 H, Creatinine 1.00, Estimated Creat Clear 40, Estimated GFR 53 L, Est GFR ( Amer) 65, Glucose 109 H D, Calcium 8.7, Magnesium 2.1 05/28/20 10:47: POC Glucose 142 H 05/28/20 16:56: POC Glucose 186 H 05/28/20 20:11: POC Glucose 105 05/29/20 05:24: POC Glucose 88 05/29/20 06:05: WBC 10.4, RBC 3.82 L, Hgb 12.0 L, Hct 35.3 L, MCV 92.2, MCH 31.4 H, MCHC 34.0, RDW 13.1, Plt Count 241, MPV 7.9, Neut % (Auto) 53.2, Lymph % (Auto) 34.1, [place] % (Auto) 6.4, Eos % (Auto) 5.8, Baso % (Auto) 0.5, Neut # (Auto) 5.5, Lymph # (Auto) 3.6, [place] # (Auto) 0.7, Eos # (Auto) 0.6 H, Baso # (Auto) 0.1 05/29/20 06:05: Sodium 138, Potassium 4.2, Chloride 109 H, Carbon Dioxide 27, Anion Gap 6.2, BUN 15 D, Creatinine 0.80, Estimated Creat Clear 40, Estimated GFR 69, Est GFR ( Amer) 84 D, Glucose 95, Calcium 8.2 L I & O for Last 24 hours: Intake & Output 05/26/20 05/27/20 05/28/20 05/29/20 11:59 11:59 11:59 11:59 Intake Total 137 / 137 1496 / 1496 Output Total 1301 / 1301 Balance 137 / 137 195 / 195 Weight 122 lb 2 oz 128 lb 6 oz Microbiology Reports for the Last 24 Hours: Microbiology 05/27/20 20:41 Urine,Clean Catch Urine Culture - Preliminary NO GROWTH AFTER 24 HOURS - *Routine Respiratory Exam Present: CTA bilaterally. Absent: accessory muscle use, rales, rhonchi, wheezes - *Routine Cardiovascular Exam Present: RRR. Absent: murmur, gallop, rubs - *Routine Extremities Exam Absent: edema, calf tenderness - *Routine Neurological Exam Present: alert, oriented X3, moving all extremities Progress Note: A&P (1) Near syncope Status: Acute Current Visit: Yes (2) CAD (coronary artery disease) Status: Chronic Current Visit: No (3) COPD (chronic obstructive pulmonary disease) Status: Chronic Current Visit: No (4) Diabetes mellitus Status: Chronic Current Visit: No (5) Diastolic dysfunction Status: Chronic Current Visit: No (6) HTN (hypertension) Status: Chronic Current Visit: No (7) Hyperlipemia Status: Chronic Current Visit: No (8) PAF (paroxysmal atrial fibrillation) Status: Chronic Current Visit: No (9) Tachy-jose francisco syndrome Status: Acute Current Visit: Yes (10) Left bundle branch block (LBBB) on electrocardiogram Status: Acute Current Visit: Yes Assessment and Plan for All Diagnoses:: Okay from cardiology standpoint for discharge home. Follow-up in our office in 1 week Home medications to include Plavix 75 mg daily, apixaban 5 mg twice daily, digoxin 0.125 mg daily, metoprolol 25 mg twice daily, pravastatin 40 mg daily, Lasix 20 mg daily and losartan 50 mg daily.
[2020-05-29 07:45] VITALS: BP 149/62; PULSE 61; RESP 18; TEMP 36.9; O2SAT 96
[2020-05-29 08:03] VITALS: PULSE 61; RESP 18; O2SAT 96
--- NOTE | 2020-05-29 08:26 | HMH.ACPN2 ---
<Elba Vasquez - Last Filed: 05/29/20 08:26> Internal Medicine - PN: Subj *Date: 05/29/20 *Time: 08:27 Interval history: Patient states she is feeling much better today. She denies any pain other than at the pacemaker site. She slept well and ate well and is anxious to go home today. Exam Vital signs and Labs for Last 24 Hours: Temp Pulse Resp BP Pulse Ox 98.5 F 61 18 149/62 H 96 05/29/20 07:45 05/29/20 08:03 05/29/20 08:03 05/29/20 07:45 05/29/20 08:03 Laboratory Results - last 24 hr 05/28/20 10:47: POC Glucose 142 H 05/28/20 16:56: POC Glucose 186 H 05/28/20 20:11: POC Glucose 105 05/29/20 05:24: POC Glucose 88 05/29/20 06:05: WBC 10.4, RBC 3.82 L, Hgb 12.0 L, Hct 35.3 L, MCV 92.2, MCH 31.4 H, MCHC 34.0, RDW 13.1, Plt Count 241, MPV 7.9, Neut % (Auto) 53.2, Lymph % (Auto) 34.1, [place] % (Auto) 6.4, Eos % (Auto) 5.8, Baso % (Auto) 0.5, Neut # (Auto) 5.5, Lymph # (Auto) 3.6, [place] # (Auto) 0.7, Eos # (Auto) 0.6 H, Baso # (Auto) 0.1 05/29/20 06:05: Sodium 138, Potassium 4.2, Chloride 109 H, Carbon Dioxide 27, Anion Gap 6.2, BUN 15 D, Creatinine 0.80, Estimated Creat Clear 40, Estimated GFR 69, Est GFR ( Amer) 84 D, Glucose 95, Calcium 8.2 L I & O for Last 24 hours: Intake & Output 05/26/20 05/27/20 05/28/20 05/29/20 11:59 11:59 11:59 11:59 Intake Total 137 / 137 1736 / 1736 Output Total 1301 / 1301 Balance 137 / 137 435 / 435 Weight 122 lb 2 oz 128 lb 6 oz Microbiology Reports for the Last 24 Hours: Microbiology 05/27/20 20:41 Urine,Clean Catch Urine Culture - Preliminary - Constitutional no acute distress - *Routine Respiratory Exam Present: CTA bilaterally - *Routine Cardiovascular Exam Present: RRR - *Routine Abdominal Exam Present: soft, normoactive bowel sounds. Absent: tenderness - *Routine Extremities Exam Absent: cyanosis, clubbing, edema - *Routine Skin Exam Present: warm. Absent: rash - *Routine Neurological Exam Present: alert, oriented X3 Assessment and Plan (1) Near syncope Current visit: Yes Status: Acute Category: Medical Code(s): R55 - Syncope and collapse (2) CAD (coronary artery disease) Current visit: No Status: Chronic Qualifiers: Coronary Disease-Associated Artery/Lesion type: [place] artery [place] vs. transplanted heart: [place] heart Associated angina: without angina Qualified Code(s): I25.10 - Atherosclerotic heart disease of [place] coronary artery without angina pectoris Category: Medical Code(s): I25.10 - Atherosclerotic heart disease of [place] coronary artery without angina pectoris (3) COPD (chronic obstructive pulmonary disease) Current visit: No Status: Chronic Qualifiers: COPD type: unspecified COPD Qualified Code(s): J44.9 - Chronic obstructive pulmonary disease, unspecified Category: Medical Code(s): J44.9 - Chronic obstructive pulmonary disease, unspecified (4) Diabetes mellitus Current visit: No Status: Chronic Qualifiers: Diabetes mellitus type: type 2 Diabetes mellitus long-term insulin use: without long-term use Diabetes mellitus complication status: without complication Qualified Code(s): E11.9 - Type 2 diabetes mellitus without complications Category: Medical Code(s): E11.9 - Type 2 diabetes mellitus without complications (5) Diastolic dysfunction Current visit: No Status: Chronic Category: Medical Code(s): I51.9 - Heart disease, unspecified (6) HTN (hypertension) Current visit: No Status: Chronic Qualifiers: Hypertension type: essential hypertension Qualified Code(s): I10 - Essential (primary) hypertension Category: Medical Code(s): I10 - Essential (primary) hypertension (7) Hyperlipemia Current visit: No Status: Chronic Qualifiers: Hyperlipidemia type: mixed hyperlipidemia Qualified Code(s): E78.2 - Mixed hyperlipidemia Category: Medical Code(s): E78.5 - Hyperlipidemia, unspecified
[2020-05-29 08:52] VITALS: PULSE 61
--- NOTE | 2020-05-29 15:01 | HMH.DCSUM ---
General - General Admission date:: 05/28/20 Discharge date: 05/29/20 HPI HPI: Ms. Zamora is a 80-year-old female with a history of diabetes mellitus, hypertension, hypercholesteremia, asthma, COPD, CHF, coronary artery disease, and atrial fibrillation who presented to the emergency room via EMS last p.m. after experiencing a near syncopal episode at home. She describes that at about 4 PM she suddenly developed tingling all over her body. She states she could move but she could not do anything. She called for help and family came to her and arranged her transport to the hospital. She denies having any dizziness, chest pain, palpitations, problems with speaking swallowing. She did have some nausea and vomited once in the ambulance. She describes having an upper respiratory infection with productive cough and postnasal drainage. She denies sore throat, ear pain and fever. With evaluation in the emergency room patient was found to be hypertensive with blood pressure 186/66 down to 165/68. White blood cell count was elevated at 12,400. H&H were good. BUN 27 and creatinine 1.1 -slightly elevated renal function..EKG showed Left bundle branch block. Due to her cardiac history and hypertension it was decided to admit her for further evaluation and treatment. Respiratory panel positive for entero-/rhino PCR. COVID?19 PCR was negative. Renal function returned to normal this a.m. White blood count is normal now at 9600. Patient was started on IV fluids at 50 an hour. Chest x-ray showed some small right effusion and stable left lower nodule; Left lower lobe atelectasis as well. CT of the head revealed No acute intracranial findings And chronic sinus diseasehis a.m. patient has slept. This a.m. patient feels fine. She really does not know why she is here. She continually denies dizziness, chest pain, palpitations and shortness of breath. Hospital Course Hospital Course: Cardiology was consulted and a carotid ultrasound was ordered. Her last echo was in February 2020. Her carotid ultrasound showed 20 to 49% stenosis on the right and 50 to 69% since stenosis on the left. She was seen by cardiology and they felt her near syncopal episodes were concern for tachybradycardia syndrome. They held her Eliquis and Plavix with plans to insert a pacemaker. The patient was in agreement. She had the pacemaker placed on 05/28/2020 and a chest x-ray post procedure showed good position and placement of the pacemaker. The patient tolerated the procedure well and by 05/29/2020, felt great. She stated she felt 20 years younger. Cardiology felt she was stable for discharge and will need to follow-up with them in 1 week. They wanted her to continue on Plavix 75 mg daily, apixaban 5 mg twice daily, digoxin 0.125 mg daily, metoprolol 25 mg twice daily, pravastatin 40 mg daily, Lasix 20 mg daily, and losartan 50 mg daily. Objective Vital signs: Temp Pulse Resp BP Pulse Ox 98.5 F 61 18 149/62 H 96 05/29/20 07:45 05/29/20 08:52 05/29/20 08:03 05/29/20 07:45 05/29/20 08:03 Narrative: - Constitutional no acute distress Comments: Awake and alert and appears comfortable. - *Routine HEENT Exam Head: Present: normocephalic, atraumatic Eye: Present: PERRL. Absent: conjunctival icterus, scleral injection ENT: Present: mucous membranes moist, oropharynx clear - *Routine Neck Exam Present: supple. Absent: carotid bruit, lymphadenopathy, thyromegaly - *Routine Respiratory Exam Present: CTA bilaterally (Anteriorly and posteriorly) - *Routine Cardiovascular Exam Present: RRR Comments: Monitor showing sinus bradycardia in the 50s. - *Routine Abdominal Exam Present: soft, normoactive bowel sounds. Absent: tenderness, distended, organomegaly - *Routine Extremities Exam Absent: edema, calf tenderness - *Routine Neurological Exam Present: alert, oriented X3, moving all extremities, normal s
== END 2020-05-29 09:45 | disposition home or self-care (01) ==
LOC: ER 20:35 → 2ND 22:44
PROVIDERS: Emergency Medicine; Internal Medicine; Admitting Provider Family Medicine; Emergency Provider Family Medicine; PCP Family Medicine; Visit Provider Family Medicine
DX: I49.5 Sick sinus syndrome (principal); E11.9 Type 2 diabetes mellitus without complications; Z79.01 Long term (current) use of anticoagulants; I70.213 Atherosclerosis of native arteries of extremities with intermittent claudication, bilateral legs; Z95.820 Peripheral vascular angioplasty status with implants and grafts; Z95.5 Presence of coronary angioplasty implant and graft; I48.0 Paroxysmal atrial fibrillation; I13.0 Hypertensive heart and chronic kidney disease with heart failure and stage 1 through stage 4 chronic kidney disease, or unspecified chronic kidney disease; I50.30 Unspecified diastolic (congestive) heart failure; N18.3 Chronic kidney disease, stage 3 (moderate); J44.9 Chronic obstructive pulmonary disease, unspecified
CPT/HCPCS: 33208; 36415; 70450; 71045; 71046; 80048; 80162; 81001; 82962; 83735; 84436; 84443; 84484; 85025; 87086; 87088; 87581; 87633; 87798; 93005; 93880; 99285; C1785; C1898; G0378

== ENCOUNTER 2020-05-31 21:29 | Emergency (ER) | payer MEDICARE, SELFPAY ==
[2020-05-31 21:51] VITALS: BP 151/64; PULSE 74; RESP 18; TEMP 38.5; O2SAT 97; BMI 24.6
--- NOTE | 2020-05-31 22:00 | XR_ITS ---
PROCEDURE: XR CHEST 2V CLINICAL HISTORY: pacemaker placement last . fever. COMPARISON: CR XR CHEST PORTABLE PICC PLAC from 08/23/2019 CR XR CHEST 2V from 05/27/2020 CR XR CHEST PORTABLE from 05/28/2020 FINDINGS: The cardiomediastinal silhouette and pulmonary vascularity are within normal limits. The left-sided cardiac pacemaker is again noted with dual chamber electrodes both in good position. Metallic surgical clips are seen left infraclavicular location. The lung ng are well expanded. There is minimal left basilar atelectasis and or postinflammatory scarring basically stable and unchanged from recent films. The remainder of the lung ng are clear. IMPRESSION: No acute findings. Dictated by: Dr. Adrián Springer MD 06/01/2020 09:09 Dr. Adrián Springer MD in [place] 06/01/2020 09:09
--- NOTE | 2020-05-31 22:00 | ECG_ITS ---
APPROVED REPORT Exam: Resting ECG HR:72 bpm ECG Measurements Heart Rate 72 AXES MS 144 P 37 QRSd 140 QRS -27 QT 404 T 129 QTc 442 <Conclusion> Normal sinus rhythm Left bundle branch block Abnormal ECG Electronically signed by : Stanton Ruelas, 06/01/2020 17:23:30
[2020-05-31 22:28] LABS: Microscopic, Urine URINE MICROSCOPIC (MICROSCOPIC)
[2020-05-31 22:28] LABS: Basophils % 0.3 % (0.1-2.0); Eosinophils # 0.6 K/mm3 (0.0-0.4); Eosinophils % 3.2 % (0.1-12.0); Hematocrit 34.4 % (37.0-47.0); Hemoglobin 11.6 g/dL (12.2-16.2); Lymphocytes # 2.9 K/mm3 (0.7-4.5); Mean Corpuscular HGB Conc 33.7 g/dL (31.8-35.4); Mean Corpuscular Hemoglobin 30.8 pg (27.0-31.2); Mean Corpuscular Volume 91.2 fl (81-99); Mean Platelet Volume 8.3 fl (7.4-10.4); Monocytes # 1.1 K/mm3 (0.1-1.0); Monocytes % 6.6 % (1.7-9.3); Neutrophils # 12.3 K/mm3 (1.8-7.8); Platelet Count 257 K/mm3 (142-424); Red Blood Count 3.77 M/mm3 (4.20-5.40); Red Cell Distribution Width 13.3 % (11.5-17.5); White Blood Count 16.9 K/mm3 (4.8-10.8)
[2020-05-31 22:30] LABS: Lactic Acid 1.4 mmol/L (0.7-2.1)
[2020-05-31 22:31] LABS: Alanine Aminotransferase 13 U/L (12-78); Albumin Level 3.8 g/dl (3.5-5.0); Albumin/Globulin Ratio 1.5 (1.1-1.8); Alkaline Phosphatase 81 U/L (38-126); Anion Gap 11.8 mEq/L (5-15); Aspartate Amino Transferase 24 U/L (14-36); Bilirubin,Total 0.4 mg/dl (0.2-1.3); Blood Urea Nitrogen 29 mg/dl (7-17); Carbon Dioxide 30 mmol/L (22.0-30.0); Chloride 99 mmol/L (98-107); Creatinine Clearance Estimated 33 mL/min (50-200); Estimated Glomerular Filt Rate 43 ml/min (>60); GFR (African American) 52 ML/MIN (>60); Globulin 2.5 g/dL (1.3-3.2); Glucose 133 mg/dl (74-100); Potassium 3.8 mmoL/L (3.5-5.1); Sodium 137 mmol/L (136-145); Total Protein,Serum 6.3 g/dl (6.3-8.2)
[2020-05-31 22:32] VITALS: BP 169/73; PULSE 72; RESP 18; O2SAT 97
[2020-05-31 22:34] LABS: MANUAL DIFFERENTIAL MANUAL DIFFERENTIAL (MANUAL DIFF)
[2020-05-31 22:37] LABS: Calcium 9.6 mg/dl (8.4-10.2)
[2020-05-31 22:39] LABS: Eosinophils % 1 % (0-3); Lymphocytes % 16 % (10-50); Neutrophils % 78 % (42-76); Platelet Estimate Normal; RBC Morphology Normal; Total Cells Counted 100
[2020-05-31 22:43] LABS: Troponin I 0.06 ng/ml (0.00-0.034)
[2020-05-31 22:56] LABS: Appearance,Urine CLEAR (Clear); Bilirubin,Urine Negative (Negative); Blood, Urine Negative (Negative); Color,Urine YELLOW (Yellow); Glucose,Urine (UA) Negative (Negative); Ketones,Urine Negative (Negative); Leukocyte Esterase,Urine TRACE (Negative); Nitrate,Urine Negative (Negative); PH,Urine 5.5 (5.0-8.5); Protein,Urine Negative (Negative); Urobilinogen,Urine 0.2 EU/dl (0.2)
[2020-05-31 22:59] LABS: Amorphous Sediment,Urine Trace /lpf
[2020-05-31 23:00] VITALS: BP 150/67; PULSE 81; RESP 18; O2SAT 97
--- NOTE | 2020-05-31 23:06 | HMH.EDFEV ---
ED Disposition Clinical Impression: Left bundle branch block (LBBB) on electrocardiogram, Status post placement of cardiac pacemaker, SIRS (systemic inflammatory response syndrome) Acute bronchitis Qualifiers: Bronchitis organism: unspecified organism Qualified Code(s): J20.9 - Acute bronchitis, unspecified Disposition: Home, Self-Care Condition on Discharge: Good Instructions: DI for Fever (Symptom) -- Adult Additional Instructions: use meds and see pcp for follow up Prescriptions: cefUROXime axetiL [Ceftin 500mg Tab (GEQ)] 500 mg PO BID #14 tab Transmission Status: Pending to [facility] Azithromycin [Zithromax 250mg tab] 250 mg PO DIRECTED #6 tab Transmission Status: Pending to [facility] Referrals: Alexis Montanez MD [Primary Care Provider] - - Critical Care Critical Care Time: No Attestation: On 05/31/20, the high probability of a clinically significant, sudden or life threatening deterioration of the following system(s) required my full and direct attention, intervention and personal management. The time I documented below is in addition to time spent performing reported procedures but includes the following listed in this critical care notation. Medical Decision Making - Medical Records Medical records reviewed: Yes: I reviewed the patient's medical records. - Hermes Inquiry Pt receiving controlled substance: No Vital Signs: 05/31/20 21:51 05/31/20 22:32 Temperature 101.3 F H Temperature Source Oral Pulse Rate [Right] 74 72 Respiratory Rate 18 18 Blood Pressure [Right Arm] 151/64 H 169/73 H Blood Pressure Mean [Right Arm] 93 105 Blood Pressure Source [Right Arm] Automatic Cuff Blood Pressure Position [Right Arm] Sitting 02 Sat by Pulse Oximetry 97 97 Oxygen Delivery Method Room Air Room Air - Lab Data Lab results reviewed: Yes: I reviewed the patient's lab results. Lab Results 05/31/20 22:10: WBC 16.9 H D, RBC 3.77 L, Hgb 11.6 L, Hct 34.4 L, MCV 91.2, MCH 30.8, MCHC 33.7, RDW 13.3, Plt Count 257, MPV 8.3, Neut % (Auto) 73.0, Lymph % (Auto) 17.0, Jones % (Auto) 6.6, Eos % (Auto) 3.2, Baso % (Auto) 0.3, Neut # (Auto) 12.3 H, Lymph # (Auto) 2.9, Jones # (Auto) 1.1 H, Eos # (Auto) 0.6 H, Baso # (Auto) 0.0, Total Counted 100, Neutrophils % (Manual) 78 H, Band Neutrophils % 5.0, Lymphocytes % (Manual) 16, Eosinophils % (Manual) 1, Platelet Estimate Normal, RBC Morphology Normal 05/31/20 22:10: Sodium 137, Potassium 3.8, Chloride 99, Carbon Dioxide 30, Anion Gap 11.8, BUN 29 H D, Creatinine 1.20 H D, Estimated Creat Clear 33, Estimated GFR 43 L, Est GFR ( Amer) 52 L D, Glucose 133 H, Calcium 9.6 D, Total Bilirubin 0.4, AST 24, ALT 13, Alkaline Phosphatase 81, Troponin I 0.06 H, Total Protein 6.3, Albumin 3.8, Globulin 2.5, Albumin/Globulin Ratio 1.5 05/31/20 22:10: Lactate 1.4 05/31/20 22:20: Urine Color Yellow, Urine Appearance Clear, Urine pH 5.5, Ur Specific [place] 1.020, Urine Protein Negative, Urine Glucose (UA) Negative, Urine Ketones Negative, Urine Blood Negative, Urine Nitrate Negative, Urine Bilirubin Negative, Urine Urobilinogen 0.2, Ur Leukocyte Esterase Trace, Urine WBC 3-5, Amorphous Sediment Trace Result diagrams: 05/31/20 22:10 05/31/20 22:10 Orders (Tests/Meds): ORDERS Category Date Time Status XR chest 2V Stat Exams 05/31/20 22:00 Ordered Troponin I Q3H Lab 06/01/20 01:15 Ordered Troponin I Q3H Lab 06/01/20 04:15 Ordered Blood Culture Stat Micro 05/31/20 22:13 Received - Radiology Data #1 Image(s): Chest Image Reviewed: Yes I reviewed the patient's radiology image Preliminary Findings: Abnormal Fever HPI - General Chief Complaint: Fever Stated Complaint: Pace maker 05/29 fever, pain legs Time Seen by Provider: 05/31/20 23:07 Mode of Arrival: Ambulatory Source of Information: Patient, Relative, Medical Record Limitations: No Limitations Description of Symptoms (Recalled from ER Triage Doc. by RN): pt had a pace
[2020-05-31 23:30] VITALS: BP 146/59; PULSE 71; RESP 18; O2SAT 97
[2020-06-01] VITALS: BP 156/60; PULSE 73; RESP 18; O2SAT 97
[2020-06-01 00:14] VITALS: BP 157/55; PULSE 78; RESP 18; O2SAT 96
[2020-06-01 00:47] VITALS: BP 141/54; PULSE 70; RESP 18; O2SAT 97
[2020-06-01 00:55] VITALS: BP 141/54; PULSE 62; RESP 16; TEMP 38.4
== END 2020-06-01 00:58 | disposition home or self-care (01) ==
PROVIDERS: Emergency Provider Emergency Medicine; PCP Family Medicine
DX: J20.9 Acute bronchitis, unspecified (principal); Z95.0 Presence of cardiac pacemaker; R65.10 Systemic inflammatory response syndrome (SIRS) of non-infectious origin without acute organ dysfunction; I10 Essential (primary) hypertension; E78.5 Hyperlipidemia, unspecified; I48.20 Chronic atrial fibrillation, unspecified; J44.9 Chronic obstructive pulmonary disease, unspecified; I25.10 Atherosclerotic heart disease of native coronary artery without angina pectoris; E11.9 Type 2 diabetes mellitus without complications; Z79.899 Other long term (current) drug therapy; Z88.5 Allergy status to narcotic agent
CPT/HCPCS: 71045; 71046; 80053; 81001; 83605; 84484; 85007; 85025; 87040; 93005; 93041; 96365; 99284; J2405

== ENCOUNTER → 2020-08-07 11:30 | Outpatient (CLI) | payer MEDICARE, SELFPAY ==
--- NOTE | 2020-08-07 11:32 | US_ITS ---
APPROVED REPORT Exam Type: Lower Extremity Segmental Pressures Portfolio Analyst: Halina Frye RDCS Indications Claudication: Rest Pain: Numbness/Tingling Pressures/Indices Right Indices Left Indices Brachial 188.00 mmHg Brachial 190.00 mmHg Low Thigh 139.00 mmHg 0.73 Low Thigh Calf 54.00 mmHg 0.28 Calf Ankle(PT) 75.00 mmHg 0.39 Ankle(PT) Ankle(DP) 137.00 mmHg 0.72 Ankle(DP) 43.00 mmHg 0.23 Digit 44.00 mmHg 0.23 Digit 0.00 mmHg 0.00 Findings RIGHT WAVEFORMS NL DIMINISHED PULSES LEFT WAVEFORM OF THIGH NL DIMINISHED AT CALF NO WAVEFORM AT LEFT ANKLE AND LEFT DIGIT DIMINISHED PULSES WITH INABILITY TO OBTAN PULSE AT POSTERIOR TIBIAL ARTERY ON LEFT LEG R MICHELE .7 L MICHELE .2 REPORTED TO CARDIOLOGY WITH PATIENT TO RETURN TO OFFICE NEY Conclusion RIGHT WAVEFORMS NL DIMINISHED PULSES LEFT WAVEFORM OF THIGH NL DIMINISHED AT CALF NO WAVEFORM AT LEFT ANKLE AND LEFT DIGIT DIMINISHED PULSES WITH INABILITY TO OBTAN PULSE AT POSTERIOR TIBIAL ARTERY ON LEFT LEG R MICHELE .7 L MICHELE .2 REPORTED TO CARDIOLOGY WITH PATIENT TO RETURN TO OFFICE NEY Electronically signed by : Loy Li MD 08/07/2020 13:51:54
[2020-08-07 15:15] LABS: Basophils % 0.4 % (0.1-2.0); Eosinophils # 0.4 K/mm3 (0.0-0.4); Eosinophils % 5.8 % (0.1-12.0); Hematocrit 41.9 % (37.0-47.0); Hemoglobin 13.6 g/dL (12.2-16.2); Lymphocytes # 2.1 K/mm3 (0.7-4.5); Lymphocytes % 27.1 % (10-50); Mean Corpuscular HGB Conc 32.5 g/dL (31.8-35.4); Mean Corpuscular Volume 89.4 fl (81-99); Mean Platelet Volume 8.1 fl (7.4-10.4); Monocytes # 0.5 K/mm3 (0.1-1.0); Monocytes % 6.6 % (1.7-9.3); Neutrophils # 4.6 K/mm3 (1.8-7.8); Neutrophils % 60.1 % (37.0-80.0); Platelet Count 303 K/mm3 (142-424); Red Blood Count 4.69 M/mm3 (4.20-5.40); Red Cell Distribution Width 13.3 % (11.5-17.5); White Blood Count 7.6 K/mm3 (4.8-10.8)
[2020-08-07 16:23] LABS: Anion Gap 11.9 mEq/L (5-15); Blood Urea Nitrogen 23 mg/dl (7-17); Calcium 9.2 mg/dl (8.4-10.2); Carbon Dioxide 31 mmol/L (22.0-30.0); Chloride 99 mmol/L (98-107); Estimated Glomerular Filt Rate 48 ml/min (>60); GFR (African American) 58 ML/MIN (>60); Glucose 205 mg/dl (74-100); Potassium 3.9 mmoL/L (3.5-5.1); Sodium 138 mmol/L (136-145)
[2020-08-07 16:30] LABS: Coronavirus 19 IgG Antibody Negative (Negative); Coronavirus 19 IgM Antibody Negative (Negative)
== END ==
PROVIDERS: Internal Medicine; PCP Family Medicine; Visit Provider Internal Medicine Cardiovascular Disease
DX: E78.5 Hyperlipidemia, unspecified (principal); I10 Essential (primary) hypertension; I25.10 Atherosclerotic heart disease of native coronary artery without angina pectoris; I27.20 Pulmonary hypertension, unspecified; I34.0 Nonrheumatic mitral (valve) insufficiency; I48.91 Unspecified atrial fibrillation; I73.9 Peripheral vascular disease, unspecified; Z79.01 Long term (current) use of anticoagulants; Z95.0 Presence of cardiac pacemaker; Z01.818 Encounter for other preprocedural examination
CPT/HCPCS: 36415; 80048; 85025; 86328; 93923

== ENCOUNTER 2020-08-08 08:28 | Day surgery (SDC) | payer MEDICARE, SELFPAY ==
[2020-08-08] VITALS (33 sets, daily range): BP systolic 117–185; BP diastolic 47–89; PULSE 60–94; RESP 16–18; TEMP 36.2; O2SAT 92–100; BMI 25.0
--- NOTE | 2020-08-08 07:11 | IR_ITS ---
APPROVED REPORT Patient Location: Outpatient PROCEDURES Catheter placement in the left popliteal artery Left popliteal artery selective angiogram Catheter placement in the left superficial femoral artery Left superficial femoral artery selective angiogram Drug-coated balloon angioplasty to the left popliteal artery and left superficial femoral artery Catheter placed in the left common iliac artery Left common iliac artery iliofemoral angiogram INDICATION MICHELE 0.2, Limb threatening ischemia, Peripheral artery disease Informed consent was obtained prior to the procedure. COMPLICATIONS NONE Estimated Blood Loss: LESS THAN 10 ML TECHNIQUE 1% lidocaine used anesthetize the right groin the right femoral artery was accessed via the Salinger technique and a 5 Thai sheath was placed in the right femoral artery. A rim catheter was placed in the distal abdominal aorta and used to cannulate the left common iliac artery. An advantage wire was advanced distally and the catheter was advanced into the left superficial femoral artery where selective angiography was performed. Following this therapeutic heparin was administered and a 5 mm x 100 mm balloon was deployed at 16 codey up and down the left popliteal artery and left superficial femoral artery. Following this the 5 Thai sheath was exchanged for a destination sheath and 3 drug-coated balloons were inflated in the popliteal artery superficial femoral artery. A 5 mm x 120 mm drug-coated balloon was placed in the distal popliteal artery and deployed at 16 codey while 2 of the 6 mm x 150 mm drug-coated balloons were deployed in the mid and proximal SFA at 12 codey. Following this the wire was pulled back and selective angiography was performed in the left popliteal artery left superficial femoral artery. The balloon was pulled back into the left common iliac artery where selective iliofemoral angiography was performed. At the end of the procedure the apparatus was removed patient was transferred to the postop holding area in stable condition for sheath removal ANGIOGRAPHIC RESULTS The left common iliac artery has a mid vessel 30% stenosis representing in-stent restenosis. The distal segment is widely patent as is the left external iliac artery and left common femoral artery. The left internal iliac artery is patent. The left profunda femoris artery is patent. The left superficial femoral artery has stents in the ostial proximal mid and distal segment which extend into the proximal and mid popliteal artery in a contiguous manner. There are multiple 80 and 90% in-stent restenotic lesions throughout the SFA and popliteal artery. Distally the popliteal artery is patent. The left anterior tibialis artery is proximally patent as is the left peroneal artery. The left posterior tibialis artery appears to be subtotally occluded in the proximal segment. 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 Recommend Xarelto 2.5 twice daily plus aspirin 81 mg daily 2. Continue risk factor modification 3. LDL less than 55 4. Physical therapy with rehabilitation Electronically signed by : Sage Chadwick, 08/08/2020 11:01:18
[2020-08-08 11:59] LABS: CATHL Activated Clotting Time 312 SEC (74-125)
[2020-08-08 12:12] LABS: CATHL Activated Clotting Time 159 SEC (74-125)
== END 2020-08-08 17:02 | disposition home or self-care (01) ==
LOC: CATHLAB 08:29
PROVIDERS: PCP Family Medicine; Visit Provider Internal Medicine
DX: E78.2 Mixed hyperlipidemia (principal); I25.10 Atherosclerotic heart disease of native coronary artery without angina pectoris; I27.20 Pulmonary hypertension, unspecified; I48.0 Paroxysmal atrial fibrillation; I34.0 Nonrheumatic mitral (valve) insufficiency; Z79.01 Long term (current) use of anticoagulants; Z95.0 Presence of cardiac pacemaker; Z95.820 Peripheral vascular angioplasty status with implants and grafts; I70.222 Atherosclerosis of native arteries of extremities with rest pain, left leg; T82.856A Stenosis of peripheral vascular stent, initial encounter; I11.0 Hypertensive heart disease with heart failure; I50.30 Unspecified diastolic (congestive) heart failure; I70.92 Chronic total occlusion of artery of the extremities
CPT/HCPCS: 37224; 85347; 99152; 99153; C1725; C1766; C1769; C1894; C2623; J1644; J2720; Q9966

== ENCOUNTER 2020-08-21 09:49 | Inpatient (IN) | payer MEDICARE, SELFPAY ==
[2020-08-21 09:50] VITALS: BP 135/77; PULSE 96; RESP 17; TEMP 37.1; O2SAT 99; BMI 24.2
--- NOTE | 2020-08-21 09:53 | HMH.EDGENADL ---
ED Disposition Clinical Impression: Peripheral arterial disease, Claudication Disposition: Admitted As Inpatient Condition on Discharge: Good - Critical Care Critical Care Time: No Attestation: On , the high probability of a clinically significant, sudden or life threatening deterioration of the following system(s) required my full and direct attention, intervention and personal management. The time I documented below is in addition to time spent performing reported procedures but includes the following listed in this critical care notation. Medical Decision Making - Medical Records Medical records reviewed: Yes: I reviewed the patient's medical records. - Hermes Inquiry Pt receiving controlled substance: Yes Hermes was queried for this patient: No Risks and benefits of using a controlled substance: were not discussed with pt by me Vital Signs: 08/21/20 09:50 08/21/20 10:30 08/21/20 11:00 Temperature 98.7 F Temperature Source Oral Pulse Rate [Left Radial] 96 H 90 88 Respiratory Rate 17 20 20 Blood Pressure [Right Arm] 135/77 143/82 H 180/87 H Blood Pressure Mean [Right Arm] 96 102 118 Blood Pressure Source [Right Arm] Automatic Cuff Automatic Cuff Automatic Cuff Blood Pressure Position [Right Arm] Sitting Sitting Sitting 02 Sat by Pulse Oximetry 99 97 99 Oxygen Delivery Method Room Air Room Air - Lab Data Lab results reviewed: Yes: I reviewed the patient's lab results. Lab Results 08/21/20 11:04: WBC 15.3 H, RBC 4.81, Hgb 13.9, Hct 43.3, MCV 90.1, MCH 28.9, MCHC 32.1, RDW 12.5, Plt Count 383, MPV 7.1 L, Neut % (Auto) 70.6, Lymph % (Auto) 20.2, Granite % (Auto) 7.7, Eos % (Auto) 1.2, Baso % (Auto) 0.4, Neut # (Auto) 10.8 H, Lymph # (Auto) 3.1, Granite # (Auto) 1.2 H, Eos # (Auto) 0.2, Baso # (Auto) 0.1, Total Counted 100, Neutrophils % (Manual) 73, Lymphocytes % (Manual) 22, Monocytes % (Manual) 5, Platelet Estimate Normal, RBC Morphology Normal 08/21/20 11:04: Sodium 134 L, Potassium 4.2, Chloride 95 L, Carbon Dioxide 30, Anion Gap 13.2, BUN 24 H, Creatinine 0.80, Estimated Creat Clear 39, Estimated GFR 69, Est GFR ( Amer) 84, Glucose 211 H, Calcium 9.5 08/21/20 11:04: PT 11.6, INR 1.05, APTT 26.8 Result diagrams: 08/21/20 11:04 08/21/20 11:04 Orders (Tests/Meds): ED MEDICATIONS Generic Name Dose Route Start Last Admin Trade Name Freq PRN Reason Stop Dose Admin Heparin Sodium/Dextrose 500 mls @ 19 mls/hr 08/21/20 13:45 Heparin 25,000 Units In D5w 500ml Premix IV 09/20/20 13:44 .Q25H BINH 950 UNITS/HR Discontinued Medications Generic Name Dose Route Start Last Admin Trade Name Freq PRN Reason Stop Dose Admin Heparin Sodium (Porcine) 4,400 unit 08/21/20 13:45 Heparin Sodium 5,000 Unit/Ml Vial IV 08/21/20 13:46 ONCE ONE Iopamidol 110 ml 08/21/20 12:23 08/21/20 12:24 Iopamidol-370 (76%); 50ml Vial IV 08/21/20 12:24 110 ml ONCE ONE Administration Miscellaneous 1 each 08/21/20 13:45 Heparin Drip Consult * 09/20/20 13:44 CONSULT [facility]Y [facility] Morphine Sulfate 4 mg 08/21/20 13:39 Morphine 4mg/Ml Syringe IV 08/21/20 13:40 ONCE ONE Sodium Chloride 10 ml 08/21/20 12:23 08/21/20 12:24 Sodium Chloride 0.9% 10ml Syr (Rad Only) IV 08/21/20 12:24 10 ml ONCE ONE Administration Sodium Chloride 50 ml 08/21/20 12:23 08/21/20 12:24 0.9 % Sodium Chloride 50 Ml Vial IV 08/21/20 12:24 50 ml ONCE ONE Administration ORDERS Category Date Time Status Covid-19 IgG/IgM ([facility]) Stat Lab 08/21/20 13:40 Ordered - CT Data CT Scan: Other Time Received: 13:[address] Reviewed: Yes: I have reviewed the patient's CT results, I discussed the CT results w/the radiologist Findings Narrative: RLE: Significant arterial occlusion with reconstitution, but poor runoff distally Medical Decision Narrative: Patient with significant peripheral arterial disease on the right and pain. She does have motor intact and sensation intact a
[2020-08-21 10:30] VITALS: BP 143/82; PULSE 90; RESP 20; O2SAT 97
--- NOTE | 2020-08-21 10:52 | PC.NURSE ---
Unable to assess pulses with doppler in right foot
--- NOTE | 2020-08-21 10:55 | CT_ITS ---
Procedure: CT ANGIO LE BI CLINICAL HISTORY: abdsent pulses in right foot COMPARISON: No exams were available for comparison TECHNIQUE: IV Contrast: 100ml Isovue 370 Axial images obtained with sagittal and coronal reformats. All CT scans at the facility use one or more dose reduction, viz: automated exposure control, ma/kV adjustment per patient size (including targeted exams where dose is matched to indication, i.e. head), or iterative reconstruction technique. FINDINGS: Atheromatous changes involve the aorta and its branches. Calcific plaque is present at the ostium of the renal arteries without significant stenosis. Calcific plaque also present at the ostium the SMA without stenosis. Celiac artery has an unremarkable appearance. Atheromatous plaque involves the aortic bifurcation and proximal common iliac arteries. There is occlusion of the proximal right external iliac artery. There reconstitution at the common femoral artery on the right. There is severe stenosis and suspected short segment occlusion of the right common femoral artery distally with calcific plaque in this area. There is reconstitution of the right superficial femoral artery.. Severe long segment stenosis involves the mid and distal aspect of the right SFA of 80 percent. Scattered segmental plaque is present in the distal right SFA with severe stenosis of the right popliteal artery approximately 90 percent with severe scattered calcific plaque involving the trifurcation vessels. There is occlusion of the proximal aspect of the posterior tibial and peroneal arteries. The anterior tibial artery is patent on the right to the ankle. Scattered calcific plaque is present involving the left common iliac and external iliac artery. Severe stenosis is present involving the proximal left SFA just proximal to the placed stent of approximately 80 percent. There is a long segment stent in the left SFA which is patent. The stent extends to the popliteal artery. Popliteal artery is patent with segmental areas of stenosis up to 60 percent. The left tibial peroneal trunk is patent however, the proximal posterior tib and peroneal arteries are occluded. The anterior tibial artery is patent. There is some segmental reconstitution of the peroneal artery. Anterior tibial artery is patent to the ankle. Incidental findings include hiatal hernia and colonic diverticulosis. There are degenerative changes in the lumbar spine. There are degenerative changes in the feet. IMPRESSION: 1. Occluded right external iliac artery with reconstitution in the right common femoral artery and then with occlusion of the right distal common femoral artery with reconstitution of the right SFA.. 2. Severe bilateral atheromatous changes involving both lower extremities. Long segment high-grade stenosis is present within a right superficial femoral artery stent with severe distal segmental areas of stenosis and occlusion of the right popliteal and trifurcation vessels. The right anterior tibial artery is patent to the ankle. 3. Severe approximately percent stenosis involving the proximal left SFA just proximal to a long stent which is patent with occluded proximal peroneal and posterior tibial arteries with patent anterior tibial artery to the ankle on the left. Dictated by: Loy Li MD 08/21/2020 12:57 Loy Li MD in [place] 08/21/2020 12:57
[2020-08-21 11:00] VITALS: BP 180/87; PULSE 88; RESP 20; O2SAT 99
[2020-08-21 11:27] LABS: Basophils # 0.1 K/mm3 (0-0.2); Basophils % 0.4 % (0.1-2.0); Eosinophils # 0.2 K/mm3 (0.0-0.4); Eosinophils % 1.2 % (0.1-12.0); Hematocrit 43.3 % (37.0-47.0); Hemoglobin 13.9 g/dL (12.2-16.2); Lymphocytes # 3.1 K/mm3 (0.7-4.5); Lymphocytes % 20.2 % (10-50); Mean Corpuscular HGB Conc 32.1 g/dL (31.8-35.4); Mean Corpuscular Hemoglobin 28.9 pg (27.0-31.2); Mean Corpuscular Volume 90.1 fl (81-99); Mean Platelet Volume 7.1 fl (7.4-10.4); Monocytes # 1.2 K/mm3 (0.1-1.0); Monocytes % 7.7 % (1.7-9.3); Neutrophils # 10.8 K/mm3 (1.8-7.8); Neutrophils % 70.6 % (37.0-80.0); Platelet Count 383 K/mm3 (142-424); Red Blood Count 4.81 M/mm3 (4.20-5.40); Red Cell Distribution Width 12.5 % (11.5-17.5); White Blood Count 15.3 K/mm3 (4.8-10.8)
[2020-08-21 11:30] LABS: MANUAL DIFFERENTIAL MANUAL DIFFERENTIAL (MANUAL DIFF)
[2020-08-21 11:36] LABS: Chloride 95 mmol/L (98-107); Sodium 134 mmol/L (136-145)
[2020-08-21 11:37] LABS: Lymphocytes % 22 % (10-50); Monocytes % 5 % (2-9); Neutrophils % 73 % (42-76); Platelet Estimate Normal; Potassium 4.2 mmoL/L (3.5-5.1); RBC Morphology Normal; Total Cells Counted 100
[2020-08-21 11:40] LABS: Anion Gap 13.2 mEq/L (5-15); Blood Urea Nitrogen 24 mg/dl (7-17); Calcium 9.5 mg/dl (8.4-10.2); Carbon Dioxide 30 mmol/L (22.0-30.0); Creatinine Clearance Estimated 39 mL/min (50-200); Estimated Glomerular Filt Rate 69 ml/min (>60); GFR (African American) 84 ML/MIN (>60); Glucose 211 mg/dl (74-100)
[2020-08-21 11:45] LABS: Activated Partial Thrombo Time 26.8 seconds (23.6-34.0); INR 1.05 (0.9-1.1); Prothrombin Time 11.6 seconds (9.4-11.8)
--- NOTE | 2020-08-21 13:37 | PC.NURSE ---
piper walters here to see ptmaynor in morning.
--- NOTE | 2020-08-21 13:41 | HMH.CNCARD ---
History of Present Illness Consult date: 08/21/20 Chief complaint: right leg/foot pain Additional Medical History:: 1. Coronary artery disease A. Drug-eluting stent placement to LAD, 05/24/18 B. Shortness of breath with Brilinta, resolved with switching to Plavix 2. New onset atrial fibrillation, 05/2018 A. Amiodarone therapy started 06/02/18, stopped 03/2020 due to fatigue B. TSH normal 03/2018 C. 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 Diabetes mellitus, type II 4. Hypertension A. Echo, 02/2020, 1. Biatrial enlargement, normal left ventricular size, mild concentric left ventricular hypertrophy, visually estimated ejection fraction 50% with no regional wall motion abnormality, grade 1 diastolic dysfunction seen without tissue Doppler evidence of raise left atrial pressure. There is abnormal septal motion. 2. Mildly enlarged right ventricle with normal contractility. 3. Thickened and calcified aortic valve without aortic stenosis aortic insufficiency. 4. Mild mitral and tricuspid regurgitation. 5. No significant pericardial effusion noted. 5. Hyperlipidemia A. On statin 6. Mild chronic kidney disease, stage II A. GFR 44, creatinine 1.19 on 07/2019 7. COPD/asthma 8. History of cardiomyopathy A. Echocardiogram, 04/2018, CONCLUSION: 1. Mildly enlarged left atrium, normal left ventricular size, moderate concentric left ventricular hypertrophy, reduced left ventricular systolic function, visually estimated ejection fraction 30%, left ventricle is globally hypokinetic, there is abnormal septal motion. 2. Moderate mitral and mild tricuspid regurgitation, calculated right ventricular systolic pressure is 54 mmHg consistent with moderate pulmonary hypertension, grade 1 diastolic dysfunction seen with tissue Doppler evidence of raised left atrial pressure. 3. No significant pericardial effusion noted. B. Right and left heart cath, 05/2018, ANGIOGRAPHIC RESULTS: 1. The left main artery normal 2. The left anterior descending artery has proximal normal segment followed by a mid vessel angiographically indeterminate stenosis between 40 and 70%. The distal vessel is highly tortuous 3. The circumflex artery is dominant and large caliber vessel and angiographically normal 4. The right coronary artery nondominant and normal 5. The GONZALES ventriculogram reveals appears preserved at 50% 6. The left ventricular end-diastolic pressure 10 HEMODYNAMICS: Pulmonary artery occlusion pressure is 8 mm Hg. Pulmonary arterial pressure is 12 mm Hg. Right atrial pressure is 35/20 mm Hg. SATURATIONS: PA is 83 %. RA is 85 %. IMPRESSION: 1. Hemodynamically severe mid LAD disease 2. Preserved ejection fraction 3. Normal left ventricular end-diastolic pressure 4. Successful stenting of the mid LAD hemodynamic the severe disease reduced to 0% with 1 drug-eluting stent 5. Mild pulmonary hypertension 9. PAD A. LE runoff, 02/2019, 1. Patent stent throughout the right superficial femoral artery with moderate in-stent restenosis as described above with single vessel runoff to the right foot via the anterior tibialis artery 2. Severe diffuse occlusion stenosis of the left superficial femoral artery and left popliteal artery with single vessel runoff to the left foot via the anterior tibialis artery 3. Attempted angioplasty of the left superficial femoral artery and left popliteal artery which was unsuccessful B. LE runoff, 03/2019 : 1. Successful reconstruction of the left superficial femoral artery and left popliteal artery 100% occlusion with limb threatening ischemia reduced to 0% with 3 self-expanding stents in a contiguous overlapping manner. 2. Triple therapy with ASA, Plavix and Xarelto for one month then stop either ASA or plavix. C. LE runoff, 07/2019, Acute on chronic peripheral artery disease with acute limb threa
[2020-08-21 14:02] VITALS: BMI 23.8
[2020-08-21 14:18] LABS: Coronavirus 19 IgG Antibody Negative (Negative); Coronavirus 19 IgM Antibody Negative (Negative)
[2020-08-21 14:20] VITALS: BP 174/87; PULSE 87; RESP 18; TEMP 36.7; O2SAT 99
--- NOTE | 2020-08-21 14:32 | HMH.PHAHEP ---
[facility] Pharmacy Heparin Dosing - Demographic Data Admission date:: 08/21/20 Date: 08/21/20 Time: 14:32 Allergies/Adverse Reactions: Allergies Allergy/AdvReac Type Severity Reaction Status Date / Time codeine [CODEINE] Allergy Unknown Verified 08/13/20 13:31 Height: 1.5 m Weight: 54.4 kg - Indication Medication therapy:: Heparin Current Indications:: DVT Patient Problems: Current Active Problems Peripheral arterial disease (Acute) Claudication (Acute) Cardiac pacemaker in situ (Chronic) Lower limb ischemia (Acute) Claudication (Acute) PAD (peripheral artery disease) (Chronic) Diabetes mellitus (Chronic) COPD (chronic obstructive pulmonary disease) (Chronic) assisted current use of anticoagulant therapy (Chronic) CAD (coronary artery disease) (Chronic) CVA?: No Bleeding problem?: No Kidney disease?: No [place]?: No Desired PTT range:: 50-70 seconds - Labs Anticoagulation Lab Results:: 08/21/20 11:04 Hgb 13.9 Hct 43.3 Plt Count 383 - Monitoring Dose Monitor 1 Date: 08/21/20 Time: 11:59 PTT Result:: 26.8 Infusion Rate:: 19 ML/HR = 950 UNITS/HR Comment:: BASELINE PTT 4400 UNIT BOLUS Dose Monitor 2 Date: 08/21/20 Time: 20:00 PTT Result:: 42.6 Infusion Rate:: 23 ML/HR = 1150 UNITS/HR Comment:: 4400 UNIT BOLUS GIVEN Dose Monitor 3 Date: 08/22/20 Time: 02:00 PTT Result:: 100.9 Infusion Rate:: 20 ML/HR = 1000 UNITS/HR Comment:: PLT = 307 Dose Monitor 4 Date: 08/22/20 Time: 10:30 PTT Result:: NOT COLLECTED, PATIENT IN [employer], DISCONTINUED AFTER CATH PER CARDIOLOGY. - Core Measures Is INR > or = 2 at discharge?: No Most Recent Labs:: Laboratory Results - last 24 hr 08/21/20 11:04: WBC 15.3 H, RBC 4.81, Hgb 13.9, Hct 43.3, MCV 90.1, MCH 28.9, MCHC 32.1, RDW 12.5, Plt Count 383, MPV 7.1 L, Neut % (Auto) 70.6, Lymph % (Auto) 20.2, [place] % (Auto) 7.7, Eos % (Auto) 1.2, Baso % (Auto) 0.4, Neut # (Auto) 10.8 H, Lymph # (Auto) 3.1, [place] # (Auto) 1.2 H, Eos # (Auto) 0.2, Baso # (Auto) 0.1, Total Counted 100, Neutrophils % (Manual) 73, Lymphocytes % (Manual) 22, Monocytes % (Manual) 5, Platelet Estimate Normal, RBC Morphology Normal 08/21/20 11:04: Sodium 134 L, Potassium 4.2, Chloride 95 L, Carbon Dioxide 30, Anion Gap 13.2, BUN 24 H, Creatinine 0.80, Estimated Creat Clear 39, Estimated GFR 69, Est GFR ( Amer) 84, Glucose 211 H, Calcium 9.5 08/21/20 11:04: PT 11.6, INR 1.05, APTT 26.8 08/21/20 11:04: SARS-CoV-2 IgG Ab (Rapid) Negative, SARS-CoV-2 IgM Ab (Rapid) Negative Were Heparin and Warfarin started on the same day?: No If not, why?: NOT INDICATED
--- NOTE | 2020-08-21 14:53 | HMH.HP ---
*Admission Date: 08/21/20 <UrbanoOksana carter - 08/21/20 14:54> *Chief complaint: Arterial Occlusion of Right Lower Extremity <Oksana Clement - 08/21/20 14:54> *History of present illness: Ms. Zamora is a 80-year-old female with a past medical history significant for DM, hypertension, hyperlipidemia, asthma, COPD, CHF, CAD, Afib, and peripheral vascular disease with prior stenting who presented to the emergency department for evaluation of right foot pain that occasionally radiates up her right leg. The pain has been present for about 3 weeks since she had a left lower extremity stent placed for peripheral vascular disease (entry through right groin). She denies any pain in the right groin or problems with the wound there. Pain in the left leg is better since procedure. She has had no recent fevers or recent trauma to the right leg. She saw Dr. Chadwick last week for the symptoms and was advised to walk more on the extremity, however, the pain has been too great in her foot. She has had no relief with gabapentin. She reports the leg will at times go cold and then rewarm itself. Upon arrival to the ED, CTA of the lower extremities showed 1. Occluded right external iliac artery with reconstitution in the right common femoral artery and then with occlusion of the right distal common femoral artery with reconstitution of the right SFA. 2. Severe bilateral atheromatous changes involving both lower extremities. Long segment high-grade stenosis is present within a right superficial femoral artery stent with severe distal segmental areas of stenosis and occlusion of the right popliteal and trifurcation vessels. The right anterior tibial artery is patent to the ankle. 3. Severe approximately percent stenosis involving the proximal left SFA just proximal to a long stent which is patent with occluded proximal peroneal and posterior tibial arteries with patent anterior tibial artery to the ankle on the left. Findings were reviewed with Dr. Chadwick who recommended admission, IV heparin therapy, pain management with IV pain medication, and plans for lower extremity runoff and treatment tomorrow. <UrbanoOksana - 08/21/20 15:14> [facility] History Medical History: Reports:: Arrhythmia, Asthma, Atherosclerotic Heart Disease, Atrial Fibrillation, Congestive Heart Failure, Chronic Obstructive Pulmonary Disease (COPD), Coronary Artery Disease, Depression, Diabetes Mellitus Type 2, Heart Murmur, Hyperlipidemia, Hypertension, Internal Pacemaker, Peripheral Artery Disease, Renal Insufficiency Denies:: Cancer, Diabetes Mellitus Type 1, MRSA, Seizures <Adrián Clement08/21/20 15:14> *Have you ever received a pneumonia vaccine?: Yes <Adrián Clement08/21/20 14:54> *Have you received a flu vaccine this season?: No <Adrián Clement08/21/20 14:54> Other Medical History: Reports: Anemia, Arthritis, Cataracts, Other <Adrián Clement08/21/20 14:54> Laterality Cases: Bilateral: Tonsillectomy <Urbano08/21/20 14:54> Other Surgeries: Yes: Angiogram, Angioplasty, Cardiac Catheterization, Coronary Stent, Pacemaker, Sinus Surgery, Tubal Ligation, Other (PAD with multiple stents to bilateral legs) <Adrián Clement08/21/20 14:54> Amputation: No <Urbano08/21/20 14:54> Fractures: No <Urbano08/21/20 14:54> - *Social History Last grade of school completed: High school graduate <Urbano08/21/20 14:54> Smoking Status: Never smoker <Adrián Clement08/21/20 14:54> Alcohol Intake: never <Urbano08/21/20 14:54> Alcohol Intake Frequency:: other <Urbano08/21/20 14:54> Substance Use Type: denies use <Urbano08/21/20 14:54> *Occupational Status:: retired <Adrián Clement08/21/20 14:54> Housing: house <Urbano08/21/20 14:54> Household Members: family <Adrián Clement08/21/20 14:54> *Travel in the last 8 weeks: None <Adrián Clement08/21/20 14:54> Family Hx:: Anemia, Coronary Artery Disease, Diabetes, Heart Attack <Adrián Clement08/21/20 14:54> Review of Systems
[2020-08-21 15:03] VITALS: BP 169/87; PULSE 84; RESP 20; TEMP 37.1; O2SAT 98
[2020-08-21 20:00] VITALS: BP 151/77; PULSE 85; RESP 20; TEMP 37.1; O2SAT 96
--- NOTE | 2020-08-21 20:20 | PC.NURSE ---
PT IS RESTING IN BED. RECEIVED PAIN MEDICATION FOR DISCOMFORT. PT HAS A VERY FAINT PALPABLE PULSE IN THE RLE. 1+ PALPABLE PULSE IN THE LLE. BLE WARM TO TOUCH. LUNG SOUNDS CLEAR. ABDOMEN SOFT/NON TENDER WITH ACTIVE BOWEL SOUNDS. PT IS A 1 ASSIST UP TO THE BSC. ALERT AND ORIENTED X4. CONSENT HAS BEEN SIGNED AND ON THE CHART FOR PROCEDURE TOMORROW. WILL CONTINUE TO MONITOR.
[2020-08-21 20:34] LABS: Activated Partial Thrombo Time 42.6 seconds (23.6-34.0)
--- NOTE | 2020-08-21 20:37 | PC.NURSE ---
Prem Thomas called from pharmacy to give the order per protocol fr the heparin to be bumped up to 1150u/hr and a 4,400 unit bolus be given. order faxed to [facility] pharmacy
--- NOTE | 2020-08-21 21:10 | PC.NURSE ---
Pt has a palpable pulse in the RLE, foot and leg are warm to the touch. Pt says it is sore to the touch.
--- NOTE | 2020-08-21 22:03 | PC.NURSE ---
[address] PATIENT AWAKE AND NO NEEDS VOICED AT THIS TIME. FAMILY AT BEDSIDE.
[2020-08-21 22:24] LABS: POC Glucose,Bedside 183 (70-110)
[2020-08-22] VITALS (23 sets, daily range): BP systolic 97–151; BP diastolic 45–84; PULSE 64–87; RESP 14–20; TEMP 36.6–39.2; O2SAT 91–99; BMI 23.3; BMI 23.5
--- NOTE | 2020-08-22 | IR_ITS ---
APPROVED REPORT Patient Location: Inpatient PROCEDURES Left femoral arterial access Catheter placement in the right superficial femoral artery Right superficial femoral artery angiogram Stent deployment to the right superficial femoral artery extending back into the right common femoral artery Stent deployment to the right external iliac artery INDICATION Acute thrombosis of the left common femoral artery and left external iliac artery, Right superficial femoral artery right femoral artery and right external iliac artery atherosclerosis, Limb threatening ischemia with cold right leg Informed consent was obtained prior to the procedure. COMPLICATIONS none Estimated Blood Loss: less than 10 mls TECHNIQUE 1% lidocaine used to anesthetize the left femoral groin. Left femoral artery was accessed via the Salinger technique and a 4 Sammarinese sheath was placed in the r left femoral artery. A short EDGE catheter was then used to cannulate the right common iliac artery and selective angiography was performed. An advantage wire was used to push through the acute on chronic occlusion and under fluoroscopic guidance the wire was advanced to the right superficial femoral artery. The EDGE catheter was advanced into the superficial femoral artery and the wire was retrieved and selective angiography was performed to demonstrate intraluminal placement of the catheter. Following this the advantage wire was placed back into the right superficial femoral artery. A 5 mm x 80 mm balloon was deployed in the right superficial femoral artery right common femoral artery and right external iliac artery which restored flow. Angiography demonstrated complex atherosclerosis throughout the proximal SFA and common femoral artery. It was not felt this would have short or long-term patency due to the complexity of atherosclerotic plaque. Because of this a 6 mm x 150 mm self-expanding stent was placed into the right superficial femoral artery extending back to the right common femoral artery. The complex atherosclerosis was reduced and a 5 mm balloon was placed back into the stent and postdilated at 12 codey of pressure. Following this an 8 mm x 37 mm bare-metal stent was then deployed in the right external iliac artery extending into the stent at 12 codey. Excellent angiographic results were obtained. At the end of the procedure the right common iliac artery right external iliac artery right common femoral artery right profunda femoris artery and right superficial femoral artery were widely patent with excellent antegrade flow. At the end of the procedure the apparatus was removed the groin was reprepped gloves were changed sheath was removed good hemostasis was achieved using Perclose device patient was transferred to the postop holding area stable condition ANGIOGRAPHIC RESULTS The right common iliac artery was patent with mild atherosclerotic plaque Right internal iliac artery was patent The right external iliac artery was proximally thrombosed and extended throughout the external iliac artery and right common femoral artery. The right superficial femoral artery is proximally occluded with scant flow into the profunda femoris artery. At the end of the procedure the right common internal and external iliac arteries are widely patent with widely patent stents in the right external iliac artery which extended into the right common femoral artery and into the superficial femoral artery. 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 Aspir
--- NOTE | 2020-08-22 03:41 | PC.NURSE ---
Pt A&O, BLT lung sounds clear throughout, Bowel sounds present in all 4 quadrants, Pt has been medicated per MAR for pain in RLE, RLE tender to touch for Pt, Pts foot is warm with a palpable pulse, IV intact and patent, Pt is currently on a heparin drip with labs drawn per protocol
[2020-08-22 04:08] LABS: Activated Partial Thrombo Time 100.9 seconds (23.6-34.0)
[2020-08-22 06:38] LABS: POC Glucose,Bedside 199 (70-110)
[2020-08-22 06:59] LABS: Basophils # 0.1 K/mm3 (0-0.2); Basophils % 0.4 % (0.1-2.0); Eosinophils # 0.3 K/mm3 (0.0-0.4); Eosinophils % 2.4 % (0.1-12.0); Hematocrit 36.2 % (37.0-47.0); Lymphocytes # 3.4 K/mm3 (0.7-4.5); Lymphocytes % 26.4 % (10-50); Mean Corpuscular HGB Conc 34.2 g/dL (31.8-35.4); Mean Corpuscular Hemoglobin 30.2 pg (27.0-31.2); Mean Corpuscular Volume 88.2 fl (81-99); Mean Platelet Volume 7.5 fl (7.4-10.4); Monocytes # 0.9 K/mm3 (0.1-1.0); Neutrophils # 8.3 K/mm3 (1.8-7.8); Neutrophils % 63.9 % (37.0-80.0); Platelet Count 307 K/mm3 (142-424); Red Cell Distribution Width 13.1 % (11.5-17.5)
[2020-08-22 07:05] LABS: Chloride 95 mmol/L (98-107); Potassium 3.9 mmoL/L (3.5-5.1); Sodium 131 mmol/L (136-145)
[2020-08-22 07:08] LABS: Anion Gap 7.9 mEq/L (5-15); Blood Urea Nitrogen 21 mg/dl (7-17); Calcium 8.7 mg/dl (8.4-10.2); Carbon Dioxide 32 mmol/L (22.0-30.0); Creatinine Clearance Estimated 38 mL/min (50-200); Estimated Glomerular Filt Rate 60 ml/min (>60); GFR (African American) 73 ML/MIN (>60); Glucose 167 mg/dl (74-100)
--- NOTE | 2020-08-22 08:15 | P.CONPHA_ITS ---
[facility] Pharmacy VTE Monitoring - Patient Demographics Admission date: 08/21/20 Report Date: 08/22/20 Time: 08:15 Allergies/Adverse Reactions: Patient Allergies codeine [CODEINE] Allergy (Unknown, Verified 08/13/20 13:31) Height: 1.5 m Weight: 52.617 kg Patient Problems: Current Active Problems Peripheral arterial disease (Acute) Claudication (Acute) Cardiac pacemaker in situ (Chronic) Lower limb ischemia (Acute) Claudication (Acute) PAD (peripheral artery disease) (Chronic) Diabetes mellitus (Chronic) COPD (chronic obstructive pulmonary disease) (Chronic) nursing home current use of anticoagulant therapy (Chronic) CAD (coronary artery disease) (Chronic) - VTE Risk Labs: VTE Related Lab Results Hgb 13.9 g/dL (12.2-16.2) 08/21/20 11:04 Hct 36.2 % (37.0-47.0) L 08/22/20 06:33 Plt Count 307 K/mm3 (142-424) 08/22/20 06:33 PT 11.6 seconds (9.4-11.8) 08/21/20 11:04 INR 1.05 (0.9-1.1) 08/21/20 11:04 APTT 100.9 seconds (23.6-34.0) H* D 08/22/20 03:35 BUN 21 mg/dl (7-17) H 08/22/20 06:33 Creatinine 0.90 mg/dl (0.52-1.04) 08/22/20 06:33 Estimated Creat Clear 38 mL/min (50-200) 08/22/20 06:33 Was VTE Risk Assessment Performed: Yes VTE Score: 3 VTE Risk Level: Low Risk Clinical Trial Participant: No - Prophylaxis VTE Prophylaxis Ordered?: Yes Types of VTE Prophylaxis: Pharmacological Pharmacologic Type: Heparin (HEPARIN DRIP)
[2020-08-22 08:38] LABS: Hemoglobin 12.3 g/dL (12.2-16.2)
--- NOTE | 2020-08-22 08:58 | HMH.ACPN2 ---
Internal Medicine - PN: Subj *Date: 08/22/20 *Time: 08:58 Interval history: Better but still can have pain in the leg. Arteriography planned this morning. Exam Vital signs and Labs for Last 24 Hours: Temp Pulse Resp BP Pulse Ox 98.4 F 72 16 132/63 96 08/22/20 07:58 08/22/20 08:22 08/22/20 07:58 08/22/20 07:58 08/22/20 07:58 Laboratory Results - last 24 hr 08/21/20 11:04: WBC 15.3 H, RBC 4.81, Hgb 13.9, Hct 43.3, MCV 90.1, MCH 28.9, MCHC 32.1, RDW 12.5, Plt Count 383, MPV 7.1 L, Neut % (Auto) 70.6, Lymph % (Auto) 20.2, [place] % (Auto) 7.7, Eos % (Auto) 1.2, Baso % (Auto) 0.4, Neut # (Auto) 10.8 H, Lymph # (Auto) 3.1, [place] # (Auto) 1.2 H, Eos # (Auto) 0.2, Baso # (Auto) 0.1, Total Counted 100, Neutrophils % (Manual) 73, Lymphocytes % (Manual) 22, Monocytes % (Manual) 5, Platelet Estimate Normal, RBC Morphology Normal 08/21/20 11:04: Sodium 134 L, Potassium 4.2, Chloride 95 L, Carbon Dioxide 30, Anion Gap 13.2, BUN 24 H, Creatinine 0.80, Estimated Creat Clear 39, Estimated GFR 69, Est GFR ( Amer) 84, Glucose 211 H, Calcium 9.5 08/21/20 11:04: PT 11.6, INR 1.05, APTT 26.8 08/21/20 11:04: SARS-CoV-2 IgG Ab (Rapid) Negative, SARS-CoV-2 IgM Ab (Rapid) Negative 08/21/20 20:11: APTT 42.6 H D 08/21/20 21:07: POC Glucose 183 H 08/22/20 03:35: APTT 100.9 H* D 08/22/20 05:24: POC Glucose 199 H 08/22/20 06:33: WBC 13.0 H, RBC 4.10 L, Hgb 12.3 D, Hct 36.2 L, MCV 88.2, MCH 30.2, MCHC 34.2, RDW 13.1, Plt Count 307, MPV 7.5, Neut % (Auto) 63.9, Lymph % (Auto) 26.4, [place] % (Auto) 7.0, Eos % (Auto) 2.4, Baso % (Auto) 0.4, Neut # (Auto) 8.3 H, Lymph # (Auto) 3.4, [place] # (Auto) 0.9, Eos # (Auto) 0.3, Baso # (Auto) 0.1 08/22/20 06:33: Sodium 131 L, Potassium 3.9, Chloride 95 L, Carbon Dioxide 32 H, Anion Gap 7.9, BUN 21 H, Creatinine 0.90, Estimated Creat Clear 38, Estimated GFR 60, Est GFR ( Amer) 73, Glucose 167 H D, Calcium 8.7 I & O for Last 24 hours: Intake & Output 08/19/20 08/20/20 08/21/20 08/22/20 11:59 11:59 11:59 11:59 Intake Total 209 / 209 Output Total 450 / 450 Balance -241 / -241 Weight 120 lb 116 lb - Constitutional no acute distress - *Routine HEENT Exam Head: Present: normocephalic Eye: Present: PERRL ENT: Present: mucous membranes moist - Routine Chest/Breast/Axilla Exam Chest wall: Absent: tenderness - *Routine Respiratory Exam Present: CTA bilaterally - *Routine Cardiovascular Exam Present: RRR - *Routine Abdominal Exam Present: soft. Absent: tenderness - *Routine Extremities Exam Absent: cyanosis, edema, pulses intact (Cannot detect pulses in either leg.) - *Routine Neurological Exam Present: alert, oriented X3 Assessment and Plan (1) Claudication Status: Acute Category: Medical Code(s): I73.9 - Peripheral vascular disease, unspecified (2) Lower limb ischemia Status: Acute Category: Medical Code(s): I99.8 - Other disorder of circulatory system (3) CAD (coronary artery disease) Status: Chronic Qualifiers: Coronary Disease-Associated Artery/Lesion type: [place] artery [place] vs. transplanted heart: [place] heart Associated angina: without angina Qualified Code(s): I25.10 - Atherosclerotic heart disease of [place] coronary artery without angina pectoris Category: Medical Code(s): I25.10 - Atherosclerotic heart disease of [place] coronary artery without angina pectoris (4) COPD (chronic obstructive pulmonary disease) Status: Chronic Qualifiers: COPD type: unspecified COPD Qualified Code(s): J44.9 - Chronic obstructive pulmonary disease, unspecified Category: Medical Code(s): J44.9 - Chronic obstructive pulmonary disease, unspecified (5) Cardiac pacemaker in situ Status: Chronic Category: Medical Code(s): Z95.0 - Presence of cardiac pacemaker (6) Diabetes mellitus Status: Chronic Qualifiers: Diabetes mellitus type: type 2 Diabetes mellitus usp insulin use: 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
--- NOTE | 2020-08-22 09:25 | HMH.PNCARD ---
Subjective Date: 08/22/20 Time: 09:25 Principal diagnosis: Ischemic right leg with known PAD Interval history: 80-year-old white female in bed. Still with complaint of right leg discomfort that is slightly improved with pain medication overnight. Patient continues on IV heparin. Right leg is slightly warmer than it was yesterday. Diminished pulses noted from femoral down through the foot. Exam Vital signs and Labs for Last 24 Hours: Temp Pulse Resp BP Pulse Ox 98.4 F 72 16 132/63 96 08/22/20 07:58 08/22/20 08:22 08/22/20 07:58 08/22/20 07:58 08/22/20 07:58 Laboratory Results - last 24 hr 08/21/20 11:04: WBC 15.3 H, RBC 4.81, Hgb 13.9, Hct 43.3, MCV 90.1, MCH 28.9, MCHC 32.1, RDW 12.5, Plt Count 383, MPV 7.1 L, Neut % (Auto) 70.6, Lymph % (Auto) 20.2, [place] % (Auto) 7.7, Eos % (Auto) 1.2, Baso % (Auto) 0.4, Neut # (Auto) 10.8 H, Lymph # (Auto) 3.1, [place] # (Auto) 1.2 H, Eos # (Auto) 0.2, Baso # (Auto) 0.1, Total Counted 100, Neutrophils % (Manual) 73, Lymphocytes % (Manual) 22, Monocytes % (Manual) 5, Platelet Estimate Normal, RBC Morphology Normal 08/21/20 11:04: Sodium 134 L, Potassium 4.2, Chloride 95 L, Carbon Dioxide 30, Anion Gap 13.2, BUN 24 H, Creatinine 0.80, Estimated Creat Clear 39, Estimated GFR 69, Est GFR ( Amer) 84, Glucose 211 H, Calcium 9.5 08/21/20 11:04: PT 11.6, INR 1.05, APTT 26.8 08/21/20 11:04: SARS-CoV-2 IgG Ab (Rapid) Negative, SARS-CoV-2 IgM Ab (Rapid) Negative 08/21/20 20:11: APTT 42.6 H D 08/21/20 21:07: POC Glucose 183 H 08/22/20 03:35: APTT 100.9 H* D 08/22/20 05:24: POC Glucose 199 H 08/22/20 06:33: WBC 13.0 H, RBC 4.10 L, Hgb 12.3 D, Hct 36.2 L, MCV 88.2, MCH 30.2, MCHC 34.2, RDW 13.1, Plt Count 307, MPV 7.5, Neut % (Auto) 63.9, Lymph % (Auto) 26.4, [place] % (Auto) 7.0, Eos % (Auto) 2.4, Baso % (Auto) 0.4, Neut # (Auto) 8.3 H, Lymph # (Auto) 3.4, [place] # (Auto) 0.9, Eos # (Auto) 0.3, Baso # (Auto) 0.1 08/22/20 06:33: Sodium 131 L, Potassium 3.9, Chloride 95 L, Carbon Dioxide 32 H, Anion Gap 7.9, BUN 21 H, Creatinine 0.90, Estimated Creat Clear 38, Estimated GFR 60, Est GFR ( Amer) 73, Glucose 167 H D, Calcium 8.7 I & O for Last 24 hours: Intake & Output 08/19/20 08/20/20 08/21/20 08/22/20 11:59 11:59 11:59 11:59 Intake Total 209 / 209 Output Total 450 / 450 Balance -241 / -241 Weight 120 lb 116 lb - Constitutional mild distress - *Routine Respiratory Exam Present: CTA bilaterally - *Routine Cardiovascular Exam Present: RRR - *Routine Extremities Exam Present: edema. Absent: cyanosis, clubbing Comments: Decreased pulses in the femoral and dorsalis pedis of the right leg compared with the left. - *Routine Neurological Exam Present: alert, oriented X3 Progress Note: A&P (1) Claudication Status: Acute (2) Lower limb ischemia Status: Acute (3) CAD (coronary artery disease) Status: Chronic (4) COPD (chronic obstructive pulmonary disease) Status: Chronic (5) Cardiac pacemaker in situ Status: Chronic (6) Diabetes mellitus Status: Chronic (7) residential current use of anticoagulant therapy Status: Chronic (8) PAD (peripheral artery disease) Status: Chronic Assessment and Plan for All Diagnoses:: Proceed with lower extremity angiogram today. Continue IV heparin, asa and plavix. Eliquis on hold (last dose was PM of 08/20/2020 per patient). Further recommendations to follow.
--- NOTE | 2020-08-22 09:29 | HMH.PHAINT ---
CLARIFIED HOME MEDICATION LIST WITH [facility]
[2020-08-22 13:04] LABS: POC Glucose,Bedside 135 (70-110)
[2020-08-22 13:22] LABS: CATHL Activated Clotting Time 247 SEC (74-125)
--- NOTE | 2020-08-22 16:45 | PC.NURSE ---
Addendum entered by Desiree Luna RN 08/22/20 16:53: FSBS results this shift have been 135 and 115, neither of which have required insulin coverage per sliding scale. Original Note: Pt has been pleasant and cooperative this shift. A&O X4. Pt complained of pain X1 and was medicated with Morphine per MAR with favorable results. Lungs CTA. No edema noted. JB hose in place to LLE. Pt is status post-peripheral angiogram. LT groin dressing is C/D/I. Pt amb[place] [facility] and voids clear, yellow urine without issue. No BM this shift. Heparin drip DC'd this shift per Dr. Chadwick. 18 G peripheral IV in the RT AC is patent and SL. Pt is on room air with sats. >90%. VSS. Post-procedural vital sign monitoring continues. Call light within reach. Will continue to monitor.
[2020-08-22 16:50] LABS: POC Glucose,Bedside 115 (70-110)
[2020-08-22 20:48] LABS: Basophils # 0.1 K/mm3 (0-0.2); Basophils % 0.3 % (0.1-2.0); Eosinophils # 0.2 K/mm3 (0.0-0.4); Eosinophils % 1.3 % (0.1-12.0); Hematocrit 38.3 % (37.0-47.0); Hemoglobin 12.7 g/dL (12.2-16.2); Lymphocytes # 2.6 K/mm3 (0.7-4.5); Lymphocytes % 17.9 % (10-50); Mean Corpuscular Hemoglobin 29.4 pg (27.0-31.2); Mean Corpuscular Volume 89.1 fl (81-99); Mean Platelet Volume 8.1 fl (7.4-10.4); Monocytes # 1.3 K/mm3 (0.1-1.0); Monocytes % 8.9 % (1.7-9.3); Neutrophils # 10.4 K/mm3 (1.8-7.8); Neutrophils % 71.5 % (37.0-80.0); Platelet Count 336 K/mm3 (142-424); White Blood Count 14.5 K/mm3 (4.8-10.8)
[2020-08-22 22:07] LABS: POC Glucose,Bedside 152 (70-110)
[2020-08-23] VITALS (8 sets, daily range): BP systolic 108–159; BP diastolic 47–75; PULSE 76–96; RESP 14–20; TEMP 36.6–38; O2SAT 94–99; BMI 24.0
--- NOTE | 2020-08-23 00:06 | PC.NURSE ---
Patient's nurse notified.
--- NOTE | 2020-08-23 04:07 | PC.NURSE ---
Pt is A&Ox4. Lung sounds remain clear. Lt groin dressing from heart cath remains CDI with no hematoma noted. Pt was febrile at the beginning of this shift. SEE PROVIDER NOTIFICATION FOR NEW ORDERS. After PRN tylenol and ice packs to the groin and armpits, pt has remained afebrile. Pt continues to need standby assist to get to BSC. Pt has complained of R foot pain x2 this shift. PRN pain meds administered per DEC. Family member has remained at bedside. No other acute changes or complaints at this time. Will continue to monitor.
[2020-08-23 05:58] LABS: Basophils % 0.2 % (0.1-2.0); Eosinophils # 0.3 K/mm3 (0.0-0.4); Eosinophils % 2.1 % (0.1-12.0); Hematocrit 36.2 % (37.0-47.0); Hemoglobin 11.8 g/dL (12.2-16.2); Lymphocytes # 2.9 K/mm3 (0.7-4.5); Lymphocytes % 21.4 % (10-50); Mean Corpuscular HGB Conc 32.6 g/dL (31.8-35.4); Mean Corpuscular Hemoglobin 29.1 pg (27.0-31.2); Mean Corpuscular Volume 89.4 fl (81-99); Mean Platelet Volume 7.6 fl (7.4-10.4); Monocytes # 1.4 K/mm3 (0.1-1.0); Monocytes % 10.1 % (1.7-9.3); Neutrophils # 9.1 K/mm3 (1.8-7.8); Neutrophils % 66.2 % (37.0-80.0); Platelet Count 297 K/mm3 (142-424); Red Blood Count 4.05 M/mm3 (4.20-5.40); Red Cell Distribution Width 13.1 % (11.5-17.5); White Blood Count 13.7 K/mm3 (4.8-10.8)
[2020-08-23 05:58] LABS: POC Glucose,Bedside 114 (70-110)
[2020-08-23 06:20] LABS: Chloride 96 mmol/L (98-107); Potassium 3.9 mmoL/L (3.5-5.1); Sodium 132 mmol/L (136-145)
[2020-08-23 06:23] LABS: Blood Urea Nitrogen 25 mg/dl (7-17); Creatinine Clearance Estimated 39 mL/min (50-200); Estimated Glomerular Filt Rate 53 ml/min (>60); GFR (African American) 65 ML/MIN (>60)
[2020-08-23 06:24] LABS: Anion Gap 9.9 mEq/L (5-15); Calcium 8.4 mg/dl (8.4-10.2); Carbon Dioxide 30 mmol/L (22.0-30.0); Glucose 112 mg/dl (74-100)
[2020-08-23 11:23] LABS: POC Glucose,Bedside 160 (70-110)
--- NOTE | 2020-08-23 12:46 | HMH.ACPN2 ---
Internal Medicine - PN: Subj *Date: 08/23/20 *Time: 12:46 Interval history: Angiography yesterday with stent deployments to right SFA and right external iliac artery. The patient still has pain in the toes and foot. She also developed low grade fever during the night and her WBC is elevated. Exam Vital signs and Labs for Last 24 Hours: Temp Pulse Resp BP Pulse Ox 98.5 F 76 19 108/53 L 95 08/23/20 12:00 08/23/20 12:00 08/23/20 12:00 08/23/20 12:00 08/23/20 12:00 Laboratory Results - last 24 hr 08/22/20 12:27: Activated Clotting Time 247 H* 08/22/20 12:37: POC Glucose 135 H 08/22/20 16:37: POC Glucose 115 H 08/22/20 20:42: WBC 14.5 H, RBC 4.30, Hgb 12.7, Hct 38.3, MCV 89.1, MCH 29.4, MCHC 33.0, RDW 13.0, Plt Count 336, MPV 8.1, Neut % (Auto) 71.5, Lymph % (Auto) 17.9, [place] % (Auto) 8.9, Eos % (Auto) 1.3, Baso % (Auto) 0.3, Neut # (Auto) 10.4 H, Lymph # (Auto) 2.6, [place] # (Auto) 1.3 H, Eos # (Auto) 0.2, Baso # (Auto) 0.1 08/22/20 21:50: POC Glucose 152 H 08/23/20 05:10: WBC 13.7 H, RBC 4.05 L, Hgb 11.8 L, Hct 36.2 L, MCV 89.4, MCH 29.1, MCHC 32.6, RDW 13.1, Plt Count 297, MPV 7.6, Neut % (Auto) 66.2, Lymph % (Auto) 21.4, [place] % (Auto) 10.1 H, Eos % (Auto) 2.1, Baso % (Auto) 0.2, Neut # (Auto) 9.1 H, Lymph # (Auto) 2.9, [place] # (Auto) 1.4 H, Eos # (Auto) 0.3, Baso # (Auto) 0.0 08/23/20 05:10: Sodium 132 L, Potassium 3.9, Chloride 96 L, Carbon Dioxide 30, Anion Gap 9.9, BUN 25 H, Creatinine 1.00, Estimated Creat Clear 39, Estimated GFR 53 L, Est GFR ( Amer) 65, Glucose 112 H D, Calcium 8.4 08/23/20 05:50: POC Glucose 114 H 08/23/20 10:58: POC Glucose 160 H I & O for Last 24 hours: Intake & Output 08/21/20 08/22/20 08/23/20 08/24/20 11:59 11:59 11:59 11:59 Intake Total 209 / 209 480 / 480 Output Total 450 / 450 575 / 575 Balance -241 / -241 -95 / -95 Weight 120 lb 116 lb 119 lb - Constitutional no acute distress - *Routine HEENT Exam Head: Present: normocephalic Eye: Present: PERRL - *Routine Respiratory Exam Present: CTA bilaterally - *Routine Cardiovascular Exam Present: RRR - *Routine Abdominal Exam Present: soft. Absent: tenderness - *Routine Extremities Exam Present: edema (Color is good, toes are tender, there seems to be increase in leg edema.) Assessment and Plan (1) PAD (peripheral artery disease) Status: Chronic Category: Medical Code(s): I73.9 - Peripheral vascular disease, unspecified (2) Lower limb ischemia Status: Acute Category: Medical Code(s): I99.8 - Other disorder of circulatory system (3) Claudication Status: Acute Category: Medical Code(s): I73.9 - Peripheral vascular disease, unspecified (4) CAD (coronary artery disease) Status: Chronic Qualifiers: Coronary Disease-Associated Artery/Lesion type: [place] artery [place] vs. transplanted heart: [place] heart Associated angina: without angina Qualified Code(s): I25.10 - Atherosclerotic heart disease of [place] coronary artery without angina pectoris Category: Medical Code(s): I25.10 - Atherosclerotic heart disease of [place] coronary artery without angina pectoris (5) COPD (chronic obstructive pulmonary disease) Status: Chronic Qualifiers: COPD type: unspecified COPD Qualified Code(s): J44.9 - Chronic obstructive pulmonary disease, unspecified Category: Medical Code(s): J44.9 - Chronic obstructive pulmonary disease, unspecified (6) Cardiac pacemaker in situ Status: Chronic Category: Medical Code(s): Z95.0 - Presence of cardiac pacemaker (7) Diabetes mellitus Status: Chronic Qualifiers: Diabetes mellitus type: type 2 Diabetes mellitus superintendent terminal insulin use: without fci use Diabetes mellitus complication status: without complication Qualified Code(s): E11.9 - Type 2 diabetes mellitus without complications Category: Medical Code(s): E11.9 - Type 2 diabetes mellitus without complications (8) care home current use of anti
[2020-08-23 17:25] LABS: POC Glucose,Bedside 112 (70-110)
--- NOTE | 2020-08-23 17:59 | PC.NURSE ---
PT AO*4, HAS BEEN MEDICATED WITH PRN MORPHINE *2 THIS SHIFT, EFFECTIVENESS NOTED, PT AMBULATED TO BSC AND TOLERATED WELL, CURRENTLY ON RA WITH O2 SATS WNL, NO C/O SOA. DSG IN PLACE TO CATH SITE C/D/I, NO HEMATOMA OR TENDERNESS NOTED, PT TOLERATING DIET WELL, VSS WILL CONTINUE TO MONITOR,
[2020-08-23 21:31] LABS: POC Glucose,Bedside 120 (70-110)
[2020-08-24] VITALS: BP 116/51; PULSE 72; RESP 14; TEMP 37.3; O2SAT 94
[2020-08-24 04:00] VITALS: BP 118/49; PULSE 71; RESP 14; TEMP 36.7; O2SAT 95
--- NOTE | 2020-08-24 04:05 | PC.NURSE ---
Pt has slept intermittently since 99. Denies pain/soa. Lung sounds clear. Pulses palpable.
[2020-08-24 05:00] VITALS: BMI 24.8
[2020-08-24 05:29] LABS: POC Glucose,Bedside 140 (70-110)
[2020-08-24 08:00] VITALS: BP 127/64; PULSE 72; RESP 18; TEMP 36.5; O2SAT 99
[2020-08-24 08:31] VITALS: PULSE 68
[2020-08-24 11:34] LABS: POC Glucose,Bedside 205 (70-110)
--- NOTE | 2020-08-24 13:09 | HMH.ACPN2 ---
Internal Medicine - PN: Subj *Date: 08/24/20 *Time: 13:09 Interval history: She complains of pain in the right foot and toes and states that it is worse than it was when she came in. Her circulation actually seems improved since the procedure. Her toes are pink and have better capillary refill. She has less edema today than she did yesterday. I wonder if she is having pain with improved blood supply to the tissues that were previously ischemic. She takes gabapentin at home and I will increase the dose of the gabapentin to try to achieve some pain relief. She has been afebrile. Exam Vital signs and Labs for Last 24 Hours: Temp Pulse Resp BP Pulse Ox 97.7 F 68 18 127/64 99 08/24/20 08:00 08/24/20 08:31 08/24/20 08:00 08/24/20 08:00 08/24/20 08:00 Laboratory Results - last 24 hr 08/23/20 16:47: POC Glucose 112 H 08/23/20 21:13: POC Glucose 120 H 08/24/20 05:20: POC Glucose 140 H 08/24/20 11:27: POC Glucose 205 H I & O for Last 24 hours: Intake & Output 08/22/20 08/23/20 08/24/20 08/25/20 11:59 11:59 11:59 11:59 Intake Total 209 / 209 480 / 480 480 / 480 360 / 360 Output Total 450 / 450 575 / 575 800 / 800 300 / 300 Balance -241 / -241 -95 / -95 -320 / -320 60 / 60 Weight 116 lb 119 lb 123 lb 4 oz - Constitutional mild distress - *Routine HEENT Exam Head: Present: normocephalic Eye: Present: PERRL - *Routine Respiratory Exam Present: CTA bilaterally - *Routine Cardiovascular Exam Present: RRR - *Routine Abdominal Exam Present: soft. Absent: tenderness - *Routine Extremities Exam Present: edema (Seems improved.), normal capillary refill. Absent: cyanosis, pallor, extremity cold to touch (The right foot actually seems warmer than the left.) Assessment and Plan (1) PAD (peripheral artery disease) Status: Chronic Category: Medical Code(s): I73.9 - Peripheral vascular disease, unspecified (2) Lower limb ischemia Status: Acute Category: Medical Code(s): I99.8 - Other disorder of circulatory system (3) Claudication Status: Acute Category: Medical Code(s): I73.9 - Peripheral vascular disease, unspecified (4) CAD (coronary artery disease) Status: Chronic Qualifiers: Coronary Disease-Associated Artery/Lesion type: [place] artery [place] vs. transplanted heart: [place] heart Associated angina: without angina Qualified Code(s): I25.10 - Atherosclerotic heart disease of [place] coronary artery without angina pectoris Category: Medical Code(s): I25.10 - Atherosclerotic heart disease of [place] coronary artery without angina pectoris (5) COPD (chronic obstructive pulmonary disease) Status: Chronic Qualifiers: COPD type: unspecified COPD Qualified Code(s): J44.9 - Chronic obstructive pulmonary disease, unspecified Category: Medical Code(s): J44.9 - Chronic obstructive pulmonary disease, unspecified (6) Cardiac pacemaker in situ Status: Chronic Category: Medical Code(s): Z95.0 - Presence of cardiac pacemaker (7) Diabetes mellitus Status: Chronic Qualifiers: Diabetes mellitus type: type 2 Diabetes mellitus senior care insulin use: without exterminator helper termite use Diabetes mellitus complication status: without complication Qualified Code(s): E11.9 - Type 2 diabetes mellitus without complications Category: Medical Code(s): E11.9 - Type 2 diabetes mellitus without complications (8) alf current use of anticoagulant therapy Status: Chronic Category: Medical Code(s): Z79.01 - terminal operator (current) use of anticoagulants - Assessment and plan all Dx Assessment and Plan for all problems:: Increase gabapentin to 200 mg p.o. 3 times daily. Physical therapy consult.
[2020-08-24 14:18] LABS: Chloride 94 mmol/L (98-107); Potassium 3.8 mmoL/L (3.5-5.1); Sodium 131 mmol/L (136-145)
[2020-08-24 14:21] LABS: Anion Gap 8.8 mEq/L (5-15); Blood Urea Nitrogen 25 mg/dl (7-17); Calcium 8.6 mg/dl (8.4-10.2); Carbon Dioxide 32 mmol/L (22.0-30.0); Creatinine Clearance Estimated 37 mL/min (50-200); Estimated Glomerular Filt Rate 48 ml/min (>60); GFR (African American) 58 ML/MIN (>60); Glucose 122 mg/dl (74-100)
[2020-08-24 14:28] LABS: Basophils % 0.2 % (0.1-2.0); Eosinophils # 0.2 K/mm3 (0.0-0.4); Eosinophils % 1.9 % (0.1-12.0); Hematocrit 35.3 % (37.0-47.0); Hemoglobin 11.8 g/dL (12.2-16.2); Lymphocytes % 17.6 % (10-50); Mean Corpuscular HGB Conc 33.4 g/dL (31.8-35.4); Mean Corpuscular Hemoglobin 29.3 pg (27.0-31.2); Mean Corpuscular Volume 87.8 fl (81-99); Mean Platelet Volume 8.1 fl (7.4-10.4); Monocytes # 0.9 K/mm3 (0.1-1.0); Monocytes % 7.5 % (1.7-9.3); Neutrophils # 8.3 K/mm3 (1.8-7.8); Neutrophils % 72.9 % (37.0-80.0); Platelet Count 296 K/mm3 (142-424); Red Blood Count 4.02 M/mm3 (4.20-5.40); White Blood Count 11.4 K/mm3 (4.8-10.8)
--- NOTE | 2020-08-24 15:16 | HMH.PTEV ---
Physical Therapy Evaluation Rehab PT IP Evaluation Start: 08/24/20 12:41 Freq: ONCE Status: Active Protocol: Document 08/24/20 15:09 PDESEROUX (Rec: 08/24/20 15:16 PDESEROUX [id number]) Subjective/History History History Pt. is a 80 year old female who presents to 2nd floor [facility] Inpatient w/ complaints of bilateral ft. P! . Pt. reports having stents placed in BLEs. Pt. reports she was ambulating @ home w/o assistance prior to ER admittance. Pt. reports living in a trailer w/ 4 steps to get inside. Pt. reports living alone, but her son has been staying the night. Pt. denies owning medical equipment at home that inclues FWW, SPC, shower chair, nor bed-side commode. PMH includes Arrhythmia, Asthma, Atherosclerotic Heart Disease, Atrial Fibrillation, Congestive Heart Failure, Chronic Obstructive Pulmonary Disease (COPD), Coronary Artery Disease, Depression, Diabetes Mellitus Type 2, Heart Murmur, Hyperlipidemia, Hypertension, Internal Pacemaker, Peripheral Artery Disease, and Renal Insufficiency. Subjective Subjective Pt. reports I'm here for my left foot, but by right foot is whats hurting. Rehab PT IP Eval Objective Appearance Patient Behavior Appropriate,Cooperative, Aggressive Patient Orientation Person,Place,Time,Day of Month ,Day of Week Difficulty following instructions none Speech Pattern Clear,Appropriate,Coherent Ambulation Patient Able to Ambulate Yes Ambulation Observation IP General Gait Pattern Observation Wide Based Gait Ambulation Distance (feet) 10 Ambulation Assistive Device None Ambulation Ability Minimal x 1 (25% assist) Balance Ability to Arise Able, uses arms to help Sitting Balance Steady, safe Standing Balance Narrow stance w/o support Dynamic Sitting
[2020-08-24 15:32] VITALS: BP 134/79; PULSE 105; RESP 17; TEMP 36.9; O2SAT 91
--- NOTE | 2020-08-24 16:17 | PC.NURSE ---
PATIENT A&O X3, LUNGS CLEAR, PULSES: LOWER RIGHT PEDAL PULSES IS WEAKER THAN LEFT PEDAL PULSE. MD WAS AWARE. PATIENT AND FAMILY HAD CONCERNS IN REGARDS TO PATIENT'S INCREASE PAIN AND REDNESS OF TOES. MD AWARE AND ADDRESSED CONCERNS. PATIENT HAS ATE ABOUT 25-50% OF MEALS THUS FAR. NO OTHER CONCERNS AT THIS TIME.
[2020-08-24 16:20] LABS: POC Glucose,Bedside 112 (70-110)
[2020-08-24 20:00] VITALS: BP 134/65; PULSE 99; RESP 20; TEMP 37; O2SAT 97
[2020-08-24 20:52] LABS: POC Glucose,Bedside 182 (70-110)
--- NOTE | 2020-08-24 23:00 | PC.NURSE ---
Report Received from Leidy Akhtar RN
[2020-08-25 04:00] VITALS: BP 131/64; PULSE 75; RESP 18; TEMP 37.4; O2SAT 95
[2020-08-25 05:00] VITALS: BMI 24.4
--- NOTE | 2020-08-25 05:42 | PC.NURSE ---
Pt has slept at intervals this shift. Has been confused at times. Pt feels that morphine caused her to feel this way. Family has remained at bedside. Pt has ambulated with assist x1 with difficulty to BSC this shift. VSS. Call light within reach. Safety measures in place. Will continue to monitor.
[2020-08-25 06:51] LABS: POC Glucose,Bedside 151 (70-110)
[2020-08-25 08:00] VITALS: BP 130/59; PULSE 81; RESP 22; TEMP 36.7; O2SAT 95
[2020-08-25 08:05] VITALS: PULSE 84
--- NOTE | 2020-08-25 09:46 | XR_ITS ---
PROCEDURE: XR CHEST 2V CLINICAL HISTORY: Bronchitis COMPARISON: CR XR CHEST PORTABLE PICC PLAC from 08/23/2019 CR XR CHEST 2V from 05/27/2020 CR XR CHEST PORTABLE from 05/28/2020 CR XR CHEST 2V from 05/31/2020 FINDINGS: There is a bipolar pacemaker from left subclavian approach. Normal heart size. Increased density is present in both lower lobes medially consistent with areas of atelectasis and/or infiltrate. There are degenerative changes of the thoracic spine with mild kyphosis. IMPRESSION: Bilateral lower lobe pneumonia and/or atelectatic change. Dictated by: Loy Li MD 08/25/2020 11:47 Loy Li MD in OV 08/25/2020 11:47
--- NOTE | 2020-08-25 09:49 | HMH.ACPN2 ---
Internal Medicine - PN: Subj *Date: 08/25/20 *Time: 09:49 Interval history: She had a rough night. Apparently she had some hallucinations and did not sleep well. Temperature has been 99. She states that the pain has lessened in her foot. The foot and toes are pink. Exam Vital signs and Labs for Last 24 Hours: Temp Pulse Resp BP Pulse Ox 98.1 F 84 22 130/59 L 95 08/25/20 08:00 08/25/20 08:05 08/25/20 08:00 08/25/20 08:00 08/25/20 08:00 Laboratory Results - last 24 hr 08/24/20 11:27: POC Glucose 205 H 08/24/20 13:48: WBC 11.4 H, RBC 4.02 L, Hgb 11.8 L, Hct 35.3 L, MCV 87.8, MCH 29.3, MCHC 33.4, RDW 13.0, Plt Count 296, MPV 8.1, Neut % (Auto) 72.9, Lymph % (Auto) 17.6, [place] % (Auto) 7.5, Eos % (Auto) 1.9, Baso % (Auto) 0.2, Neut # (Auto) 8.3 H, Lymph # (Auto) 2.0, [place] # (Auto) 0.9, Eos # (Auto) 0.2, Baso # (Auto) 0.0 08/24/20 13:48: Sodium 131 L, Potassium 3.8, Chloride 94 L, Carbon Dioxide 32 H, Anion Gap 8.8, BUN 25 H, Creatinine 1.10 H, Estimated Creat Clear 37, Estimated GFR 48 L, Est GFR ( Amer) 58 L, Glucose 122 H, Calcium 8.6 08/24/20 16:09: POC Glucose 112 H 08/24/20 20:35: POC Glucose 182 H 08/25/20 06:25: POC Glucose 151 H I & O for Last 24 hours: Intake & Output 08/22/20 08/23/20 08/24/20 08/25/20 11:59 11:59 11:59 11:59 Intake Total 209 / 209 480 / 480 480 / 480 650 / 650 Output Total 450 / 450 575 / 575 800 / 800 1400 / 1400 Balance -241 / -241 -95 / -95 -320 / -320 -750 / -750 Weight 116 lb 119 lb 123 lb 4 oz 121 lb 4 oz - Constitutional no acute distress - *Routine HEENT Exam Head: Present: normocephalic Eye: Present: PERRL - *Routine Respiratory Exam Present: CTA bilaterally - *Routine Cardiovascular Exam Present: RRR - *Routine Abdominal Exam Present: soft. Absent: tenderness - *Routine Extremities Exam Present: edema (Significantly less edema of the right leg.), normal capillary refill (Toes are pink) - *Routine Neurological Exam Present: alert, oriented X3 Assessment and Plan (1) PAD (peripheral artery disease) Status: Chronic Category: Medical Code(s): I73.9 - Peripheral vascular disease, unspecified (2) Lower limb ischemia Status: Acute Category: Medical Code(s): I99.8 - Other disorder of circulatory system (3) Claudication Status: Acute Category: Medical Code(s): I73.9 - Peripheral vascular disease, unspecified (4) CAD (coronary artery disease) Status: Chronic Qualifiers: Coronary Disease-Associated Artery/Lesion type: [place] artery [place] vs. transplanted heart: [place] heart Associated angina: without angina Qualified Code(s): I25.10 - Atherosclerotic heart disease of [place] coronary artery without angina pectoris Category: Medical Code(s): I25.10 - Atherosclerotic heart disease of [place] coronary artery without angina pectoris (5) COPD (chronic obstructive pulmonary disease) Status: Chronic Qualifiers: COPD type: unspecified COPD Qualified Code(s): J44.9 - Chronic obstructive pulmonary disease, unspecified Category: Medical Code(s): J44.9 - Chronic obstructive pulmonary disease, unspecified (6) Cardiac pacemaker in situ Status: Chronic Category: Medical Code(s): Z95.0 - Presence of cardiac pacemaker (7) Diabetes mellitus Status: Chronic Qualifiers: Diabetes mellitus type: type 2 Diabetes mellitus terminal clerk insulin use: without terminal clerk use Diabetes mellitus complication status: without complication Qualified Code(s): E11.9 - Type 2 diabetes mellitus without complications Category: Medical Code(s): E11.9 - Type 2 diabetes mellitus without complications (8) [facility] current use of anticoagulant therapy Status: Chronic Category: Medical Code(s): Z79.01 - [place] terminal operator (current) use of anticoagulants - Assessment and plan all Dx Assessment and Plan for all problems:: Chest x-ray, urine analysis and culture. Blood culture.
--- NOTE | 2020-08-25 10:10 | HMH.PNCARD ---
Subjective Date: 08/25/20 Time: 10:10 Principal diagnosis: Ischemic right leg with known PAD Interval history: 80-year-old white female in bed in no acute distress. Granddaughter is present due to patient having hallucinations last evening of being in a [facility] with rodents in her room. She is alert and oriented at this time. She denies any chest pain, pressure or tightness. Lab work chest x-ray and urine culture have been ordered and are pending. Patient describes her right leg is improving but still with some numbness and tingling sensation. We did discuss the need for ambulation and exercise after she gets out of the hospital as well. Patient is a non-smoker never has smoked. Exam Vital signs and Labs for Last 24 Hours: Temp Pulse Resp BP Pulse Ox 98.1 F 84 22 130/59 L 95 08/25/20 08:00 08/25/20 08:05 08/25/20 08:00 08/25/20 08:00 08/25/20 08:00 Laboratory Results - last 24 hr 08/24/20 11:27: POC Glucose 205 H 08/24/20 13:48: WBC 11.4 H, RBC 4.02 L, Hgb 11.8 L, Hct 35.3 L, MCV 87.8, MCH 29.3, MCHC 33.4, RDW 13.0, Plt Count 296, MPV 8.1, Neut % (Auto) 72.9, Lymph % (Auto) 17.6, [place] % (Auto) 7.5, Eos % (Auto) 1.9, Baso % (Auto) 0.2, Neut # (Auto) 8.3 H, Lymph # (Auto) 2.0, [place] # (Auto) 0.9, Eos # (Auto) 0.2, Baso # (Auto) 0.0 08/24/20 13:48: Sodium 131 L, Potassium 3.8, Chloride 94 L, Carbon Dioxide 32 H, Anion Gap 8.8, BUN 25 H, Creatinine 1.10 H, Estimated Creat Clear 37, Estimated GFR 48 L, Est GFR ( Amer) 58 L, Glucose 122 H, Calcium 8.6 08/24/20 16:09: POC Glucose 112 H 08/24/20 20:35: POC Glucose 182 H 08/25/20 06:25: POC Glucose 151 H I & O for Last 24 hours: Intake & Output 08/22/20 08/23/20 08/24/20 08/25/20 11:59 11:59 11:59 11:59 Intake Total 209 / 209 480 / 480 480 / 480 650 / 650 Output Total 450 / 450 575 / 575 800 / 800 1400 / 1400 Balance -241 / -241 -95 / -95 -320 / -320 -750 / -750 Weight 116 lb 119 lb 123 lb 4 oz 121 lb 4 oz Microbiology Reports for the Last 24 Hours: Microbiology 08/23/20 09:50 Blood Blood Culture - Preliminary NO GROWTH AFTER 48 HOURS 08/23/20 09:40 Blood Blood Culture - Preliminary NO GROWTH AFTER 48 HOURS - Constitutional no acute distress - *Routine Respiratory Exam Present: CTA bilaterally - *Routine Cardiovascular Exam Present: RRR - *Routine Extremities Exam Absent: cyanosis, clubbing, edema Comments: Pulses are 2+ in the dorsalis pedis areas bilaterally. Both lower extremities are warm and pink. 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 Patient is stable from a cardiovascular standpoint. Continue aspirin, Plavix and Xarelto therapy for 1 month and then discontinue aspirin with continuation of Plavix and Xarelto therapy thereafter. Patient can be discharged from a cardiac standpoint whenever she is stable from Dr. Valencia standpoint. Recommend follow-up in our office in 1 week. 2. Elevated temp with hallucinations last evening, work-up per Dr. Valencia.
[2020-08-25 10:36] LABS: Microscopic, Urine URINE MICROSCOPIC (MICROSCOPIC)
[2020-08-25 10:38] LABS: Appearance,Urine CLEAR (Clear); Bilirubin,Urine Negative (Negative); Blood, Urine 2+ (Negative); Color,Urine YELLOW (Yellow); Glucose,Urine (UA) Negative (Negative); Ketones,Urine Negative (Negative); Leukocyte Esterase,Urine TRACE (Negative); Nitrate,Urine Negative (Negative); Protein,Urine Negative (Negative); Urobilinogen,Urine 0.2 EU/dl (0.2)
[2020-08-25 11:32] LABS: Basophils % 0.1 % (0.1-2.0); Eosinophils # 0.3 K/mm3 (0.0-0.4); Eosinophils % 2.1 % (0.1-12.0); Hematocrit 32.6 % (37.0-47.0); Hemoglobin 11.1 g/dL (12.2-16.2); Lymphocytes # 2.2 K/mm3 (0.7-4.5); Lymphocytes % 14.7 % (10-50); Mean Corpuscular Hemoglobin 29.6 pg (27.0-31.2); Mean Corpuscular Volume 86.8 fl (81-99); Mean Platelet Volume 7.9 fl (7.4-10.4); Monocytes # 1.1 K/mm3 (0.1-1.0); Monocytes % 7.6 % (1.7-9.3); Neutrophils % 75.4 % (37.0-80.0); Platelet Count 315 K/mm3 (142-424); Red Blood Count 3.76 M/mm3 (4.20-5.40); White Blood Count 14.6 K/mm3 (4.8-10.8)
[2020-08-25 11:36] LABS: Chloride 97 mmol/L (98-107); Potassium 3.8 mmoL/L (3.5-5.1); Sodium 132 mmol/L (136-145)
[2020-08-25 11:36] LABS: POC Glucose,Bedside 182 (70-110)
[2020-08-25 11:39] LABS: Anion Gap 9.8 mEq/L (5-15); Blood Urea Nitrogen 20 mg/dl (7-17); Calcium 8.5 mg/dl (8.4-10.2); Carbon Dioxide 29 mmol/L (22.0-30.0); Creatinine Clearance Estimated 40 mL/min (50-200); Estimated Glomerular Filt Rate 69 ml/min (>60); GFR (African American) 84 ML/MIN (>60); Glucose 183 mg/dl (74-100)
--- NOTE | 2020-08-25 15:24 | SW/DCPLANNER ---
Addendum entered by Ginny Julian 08/28/20 13:41: Tammie with [facility] has confirmed that patient information has been received and services will begin tomorrow or over the weekend. Patient discharged home today. Addendum entered by Ginny Julian 08/28/20 11:25: This patient will discharge home today. Patient information and order for home health services has been faxed to [facility] per patient request. Patient already has rolling walker from [facility] in room. Addendum entered by Ginny Julian 08/26/20 11:26: Camelia with [facility] has confirmed that patient information has been received and walker will be delivered to this patient today. Addendum entered by Ginny Julian 08/25/20 19:48: Patient information has been faxed to [facility] for a rolling walker. I will follow up with Keyshawn tomorrow. Original Note: I have spoke with this patient while granddaughter was present. Patient stated that she lives at home with her son and her family checks on her often. I had a lengthy discussion with patient regarding placement vs home health. Patient was quick to refuse placement and after speaking with her granddaughter patient was agreeable to home health services: [facility]. Patient has stated that she will need a rolling walker at time of discharge and I will order this thru [facility]. Discharge date is unknown at this time.
--- NOTE | 2020-08-25 15:53 | PC.NURSE ---
PATIENT WILL NEED A ROLLING WALKER RATHER THAN A CANE DUE TO GAIT IMMOBILITY ISSUES.
[2020-08-25 16:00] VITALS: BP 131/60; PULSE 78; RESP 21; TEMP 36.8; O2SAT 98
--- NOTE | 2020-08-25 16:17 | DIET.NUTRFU ---
PO intakes 50-75%. BG moderate- ~150. Diet liberalized from ADA/Cardiac to ADA/No salt added to encourage intakes. Continuing to monitor.
--- NOTE | 2020-08-25 17:05 | PC.NURSE ---
PATIENT A&O X4, LUNGS: DIMINISHED, PULSES EQUAL, REDNESS IN RIGHT TOES HAVE BECOME PINK IN COLOR, NO COMPLAINT OF PAIN DURING THIS RN SHIFT. PATIENT HAS SHOWED NO NEW SIGNS OF CONFUSION OR HALLUCINATIONS. NO NEW CONCERNS AT THIS TIME.
[2020-08-25 20:00] VITALS: BP 127/60; PULSE 71; RESP 16; TEMP 37.1; O2SAT 95
[2020-08-25 20:16] LABS: POC Glucose,Bedside 183 (70-110)
[2020-08-25 20:16] LABS: POC Glucose,Bedside 172 (70-110)
[2020-08-26] VITALS (7 sets, daily range): BP systolic 92–159; BP diastolic 53–77; PULSE 68–76; RESP 16–18; TEMP 36.6–37.6; O2SAT 95–98; BMI 24.0
--- NOTE | 2020-08-26 04:31 | PC.NURSE ---
Addendum entered by Henna Izquierdo RN 08/26/20 05:16: Pt had large,hard bowel movement this am. Bright red blood noted. Pt states she has had this type of bleeding in the past due to hemorrhoids. Original Note: Pt has slept well this shift. Tylenol given this shift for mild pain. Lung sounds remain clear, pedal pulses palpable. Pt ambulated to bathroom via walker with assist x1, but was somewhat unsteady. Remains oriented x4.
[2020-08-26 05:21] LABS: POC Glucose,Bedside 136 (70-110)
--- NOTE | 2020-08-26 08:23 | HMH.ACPN2 ---
Internal Medicine - PN: Subj *Date: 08/26/20 *Time: 08:23 Interval history: Patient feels much better today. She has had no further hallucinations or bad dreams. She blames it on her pain medicine that she had. She states her leg is better. She denies chest pain and shortness of breath. She states she has an a.m. cough which is usual for her. Chest x-ray completed 08/25/2020 showed bilateral lower lobe pneumonia and Or atelectatic change Exam Vital signs and Labs for Last 24 Hours: Temp Pulse Resp BP Pulse Ox 98.5 F 70 16 157/77 H 96 08/26/20 04:00 08/26/20 04:00 08/26/20 04:00 08/26/20 04:00 08/26/20 04:00 Laboratory Results - last 24 hr 08/25/20 10:13: Urine Color Yellow, Urine Appearance Clear, Urine pH 6.0, Ur Specific [place] 1.010, Urine Protein Negative, Urine Glucose (UA) Negative, Urine Ketones Negative, Urine Blood 2+, Urine Nitrate Negative, Urine Bilirubin Negative, Urine Urobilinogen 0.2, Ur Leukocyte Esterase Trace, Urine RBC 5-10, Urine WBC 3-5, Ur Squamous Epith Cells 3-5 08/25/20 11:10: WBC 14.6 H D, RBC 3.76 L, Hgb 11.1 L, Hct 32.6 L, MCV 86.8, MCH 29.6, MCHC 34.0, RDW 13.0, Plt Count 315, MPV 7.9, Neut % (Auto) 75.4, Lymph % (Auto) 14.7, [place] % (Auto) 7.6, Eos % (Auto) 2.1, Baso % (Auto) 0.1, Neut # (Auto) 11.0 H, Lymph # (Auto) 2.2, [place] # (Auto) 1.1 H, Eos # (Auto) 0.3, Baso # (Auto) 0.0 08/25/20 11:10: Sodium 132 L, Potassium 3.8, Chloride 97 L, Carbon Dioxide 29, Anion Gap 9.8, BUN 20 H, Creatinine 0.80 D, Estimated Creat Clear 40, Estimated GFR 69, Est GFR ( Amer) 84 D, Glucose 183 H D, Calcium 8.5 08/25/20 11:28: POC Glucose 182 H 08/25/20 16:40: POC Glucose 172 H 08/25/20 20:08: POC Glucose 183 H 08/26/20 05:13: POC Glucose 136 H I & O for Last 24 hours: Intake & Output 08/23/20 08/24/20 08/25/20 08/26/20 11:59 11:59 11:59 11:59 Intake Total 480 / 480 480 / 480 650 / 650 Output Total 575 / 575 800 / 800 1400 / 1400 Balance -95 / -95 -320 / -320 -750 / -750 Weight 119 lb 123 lb 4 oz 121 lb 4 oz 119 lb 8 oz Microbiology Reports for the Last 24 Hours: Microbiology 08/23/20 09:50 Blood Blood Culture - Preliminary NO GROWTH AFTER 48 HOURS 08/23/20 09:40 Blood Blood Culture - Preliminary NO GROWTH AFTER 48 HOURS - Constitutional no acute distress Comments: She is sitting on the bedside eating her breakfast. She appears comfortable. She is conversant. - *Routine Respiratory Exam Present: diminished air movement (Posteriorly) - *Routine Cardiovascular Exam Present: RRR - *Routine Abdominal Exam Present: soft, normoactive bowel sounds. Absent: tenderness - *Routine Extremities Exam Absent: edema Comments: Both legs are warm to touch today. - *Routine Neurological Exam Present: alert, oriented X3 Assessment and Plan (1) PAD (peripheral artery disease) Status: Chronic Category: Medical Code(s): I73.9 - Peripheral vascular disease, unspecified (2) Lower limb ischemia Status: Acute Category: Medical Code(s): I99.8 - Other disorder of circulatory system (3) Claudication Status: Acute Category: Medical Code(s): I73.9 - Peripheral vascular disease, unspecified (4) CAD (coronary artery disease) Status: Chronic Qualifiers: Coronary Disease-Associated Artery/Lesion type: [place] artery [place] vs. transplanted heart: [place] heart Associated angina: without angina Qualified Code(s): I25.10 - Atherosclerotic heart disease of [place] coronary artery without angina pectoris Category: Medical Code(s): I25.10 - Atherosclerotic heart disease of [place] coronary artery without angina pectoris (5) COPD (chronic obstructive pulmonary disease) Status: Chronic Qualifiers: COPD type: unspecified COPD Qualified Code(s): J44.9 - Chronic obstructive pulmonary disease, unspecified Category: Medical Code(s): J44.9 - Chronic obstructive pulmonary
[2020-08-26 11:53] LABS: POC Glucose,Bedside 174 (70-110)
--- NOTE | 2020-08-26 12:33 | HMH.ACPN ---
Internal Medicine - PN: Subj *Date: 08/26/20 *Time: 12:33 Exam Vital signs and Labs for Last 24 Hours: Temp Pulse Resp BP Pulse Ox 98.4 F 68 18 92/53 L 96 08/26/20 11:54 08/26/20 11:54 08/26/20 11:54 08/26/20 11:54 08/26/20 11:54 Laboratory Results - last 24 hr 08/25/20 16:40: POC Glucose 172 H 08/25/20 20:08: POC Glucose 183 H 08/26/20 05:13: POC Glucose 136 H 08/26/20 11:45: POC Glucose 174 H I & O for Last 24 hours: Intake & Output 08/23/20 08/24/20 08/25/20 08/26/20 23:59 23:59 23:59 23:59 Intake Total 360 / 360 890 / 890 360 / 360 Output Total 800 / 800 1000 / 1300 400 / 400 Balance -440 / -440 -110 / -410 -400 / -400 360 / 360 Weight 53.977 kg 55.905 kg 54.998 kg 54.204 kg Microbiology Reports for the Last 24 Hours: Microbiology 08/25/20 10:13 Urine,Catheterized Urine Culture - Preliminary NO GROWTH AFTER 24 HOURS 08/23/20 09:50 Blood Blood Culture - Preliminary NO GROWTH AFTER 48 HOURS 08/23/20 09:40 Blood Blood Culture - Preliminary NO GROWTH AFTER 48 HOURS Assessment and Plan (1) PAD (peripheral artery disease) Status: Chronic Category: Medical Code(s): I73.9 - Peripheral vascular disease, unspecified (2) Lower limb ischemia Status: Acute Category: Medical Code(s): I99.8 - Other disorder of circulatory system (3) Claudication Status: Acute Category: Medical Code(s): I73.9 - Peripheral vascular disease, unspecified (4) CAD (coronary artery disease) Status: Chronic Qualifiers: Coronary Disease-Associated Artery/Lesion type: [place] artery [place] vs. transplanted heart: [place] heart Associated angina: without angina Qualified Code(s): I25.10 - Atherosclerotic heart disease of [place] coronary artery without angina pectoris Category: Medical Code(s): I25.10 - Atherosclerotic heart disease of [place] coronary artery without angina pectoris (5) COPD (chronic obstructive pulmonary disease) Status: Chronic Qualifiers: COPD type: unspecified COPD Qualified Code(s): J44.9 - Chronic obstructive pulmonary disease, unspecified Category: Medical Code(s): J44.9 - Chronic obstructive pulmonary disease, unspecified (6) Cardiac pacemaker in situ Status: Chronic Category: Medical Code(s): Z95.0 - Presence of cardiac pacemaker (7) Diabetes mellitus Status: Chronic Qualifiers: Diabetes mellitus type: type 2 Diabetes mellitus long-term insulin use: without [place] terminal agent use Diabetes mellitus complication status: without complication Qualified Code(s): E11.9 - Type 2 diabetes mellitus without complications Category: Medical Code(s): E11.9 - Type 2 diabetes mellitus without complications (8) longterm current use of anticoagulant therapy Status: Chronic Category: Medical Code(s): Z79.01 - [place] terminal agent (current) use of anticoagulants (9) Pneumonia Status: Acute Category: Medical Code(s): J18.9 - Pneumonia, unspecified organism The patient's infection will respond to the chosen ABx?: Yes (empiric therapy) Is the patient receiving the right drug, dose, and route?: Yes Could a more targeted ABx be ordered?: No (cultures pending)
--- NOTE | 2020-08-26 16:02 | PC.NURSE ---
Told RN about BP 159/71
--- NOTE | 2020-08-26 16:35 | PC.NURSE ---
Routine reassessment completed Pt. c/o shakiness, and trembling FSBS at 112. Jello and crackers given. No further acute changes since previous assessment. Pt. A&O X4, Lungs CTA, Heart at RRR, BS present x4 quads. Bilateral pedal pulses noted to be normal and equal. Pt. denies pain and needs, will continue to monitor.
[2020-08-26 16:44] LABS: POC Glucose,Bedside 112 (70-110)
--- NOTE | 2020-08-26 19:23 | PC.NURSE ---
Report given to Yousuf Jamil RN.
[2020-08-26 21:11] LABS: POC Glucose,Bedside 203 (70-110)
[2020-08-27] VITALS (7 sets, daily range): BP systolic 93–143; BP diastolic 52–78; PULSE 63–88; RESP 16–18; TEMP 36.8–37.3; O2SAT 93–98; BMI 23.8
[2020-08-27 06:36] LABS: POC Glucose,Bedside 155 (70-110)
--- NOTE | 2020-08-27 06:39 | PC.NURSE ---
Pt is A&Ox4 and has ambulated to [facility] a few times this shift and tolerated well. Pt has denied any pain, SOA, dyspnea, or dizziness. Pt had a T-max of 99.6, medicated with Tylenol 1x and temperature WNL on reassessment. Pt did have 2 heavy blankets, 1 white blanket and 1 sheet. Pt encouraged to keep the 1 brown blanket and temperate in room decreased to 72 from 75 degrees. Lungs CTA, although diminished L base. Pt denies any productive cough. ABD is soft, non-tender with active BS and pt reports BM during previous shift. Pt denies any N/V/D. Pt on Xarelto & Eliquis. No edema noted, peripheral pulses 2+. 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 VSS, call light within reach, will continue to monitor.
--- NOTE | 2020-08-27 08:08 | HMH.ACPN2 ---
Internal Medicine - PN: Subj *Date: 08/27/20 *Time: 08:08 Interval history: Daughter stayed with patient last night. Patient states she did sleep. She is having some left lower lung pain. She denies cough and shortness of breath. She denies actual chest pain. She did ambulate without difficulty yesterday. Her legs are feeling better. She describes twitching episodes. She is eating without problems. Bowels have moved. She is voiding QS. She did have a low-grade fever of 99.6 at about 8:00. P.m. O2 sats remained good on room air. Blood culture results are pending. Patient remains on aspirin, Plavix, and Xarelto for stent placement as per cardiology. Exam Vital signs and Labs for Last 24 Hours: Temp Pulse Resp BP Pulse Ox 98.2 F 70 17 141/65 H 95 08/27/20 04:00 08/27/20 04:00 08/27/20 04:00 08/27/20 04:00 08/27/20 04:00 Laboratory Results - last 24 hr 08/26/20 11:45: POC Glucose 174 H 08/26/20 16:35: POC Glucose 112 H 08/26/20 20:37: POC Glucose 203 H 08/27/20 06:15: POC Glucose 155 H I & O for Last 24 hours: Intake & Output 08/24/20 08/25/20 08/26/20 08/27/20 11:59 11:59 11:59 11:59 Intake Total 480 / 480 650 / 650 360 / 360 840 / 840 Output Total 800 / 800 1400 / 1400 Balance -320 / -320 -750 / -750 360 / 360 840 / 840 Weight 123 lb 4 oz 121 lb 4 oz 119 lb 8 oz 118 lb 8 oz Microbiology Reports for the Last 24 Hours: Microbiology 08/25/20 10:13 Urine,Catheterized Urine Culture - Preliminary NO GROWTH AFTER 24 HOURS - Constitutional no acute distress - *Routine Respiratory Exam Present: CTA bilaterally (Anteriorly and posteriorly) - *Routine Cardiovascular Exam Present: RRR - *Routine Abdominal Exam Present: soft, normoactive bowel sounds. Absent: tenderness - *Routine Extremities Exam Absent: edema, calf tenderness Comments: Legs are both warm to touch with good color. - *Routine Neurological Exam Present: alert, oriented X3 Assessment and Plan (1) PAD (peripheral artery disease) Status: Chronic Category: Medical Code(s): I73.9 - Peripheral vascular disease, unspecified (2) Lower limb ischemia Status: Acute Category: Medical Code(s): I99.8 - Other disorder of circulatory system (3) Claudication Status: Acute Category: Medical Code(s): I73.9 - Peripheral vascular disease, unspecified (4) CAD (coronary artery disease) Status: Chronic Qualifiers: Coronary Disease-Associated Artery/Lesion type: [place] artery [place] vs. transplanted heart: [place] heart Associated angina: without angina Qualified Code(s): I25.10 - Atherosclerotic heart disease of [place] coronary artery without angina pectoris Category: Medical Code(s): I25.10 - Atherosclerotic heart disease of [place] coronary artery without angina pectoris (5) COPD (chronic obstructive pulmonary disease) Status: Chronic Qualifiers: COPD type: unspecified COPD Qualified Code(s): J44.9 - Chronic obstructive pulmonary disease, unspecified Category: Medical Code(s): J44.9 - Chronic obstructive pulmonary disease, unspecified (6) Cardiac pacemaker in situ Status: Chronic Category: Medical Code(s): Z95.0 - Presence of cardiac pacemaker (7) Diabetes mellitus Status: Chronic Qualifiers: Diabetes mellitus type: type 2 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 chcf use Diabetes mellitus complication status: without complication Qualified Code(s): E11.9 - Type 2 diabetes mellitus without complications Category: Medical Code(s): E11.9 - Type 2 diabetes mellitus without complications (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
--- NOTE | 2020-08-27 08:15 | PC.NURSE ---
RESP THERAPY AT INSTRUCTING PT ON USE OF INCENTIVE SPIROMETER. VERBALIZES UNDERSTANDING. RETURN DEMONSTRATION.
[2020-08-27 08:41] LABS: Basophils % 0.3 % (0.1-2.0); Eosinophils # 0.3 K/mm3 (0.0-0.4); Eosinophils % 2.8 % (0.1-12.0); Hematocrit 32.7 % (37.0-47.0); Hemoglobin 10.2 g/dL (12.2-16.2); Lymphocytes # 2.5 K/mm3 (0.7-4.5); Lymphocytes % 20.8 % (10-50); Mean Corpuscular HGB Conc 31.2 g/dL (31.8-35.4); Mean Corpuscular Hemoglobin 28.3 pg (27.0-31.2); Mean Corpuscular Volume 90.6 fl (81-99); Mean Platelet Volume 7.4 fl (7.4-10.4); Monocytes # 0.8 K/mm3 (0.1-1.0); Monocytes % 6.9 % (1.7-9.3); Neutrophils # 8.4 K/mm3 (1.8-7.8); Neutrophils % 69.2 % (37.0-80.0); Platelet Count 385 K/mm3 (142-424); Red Blood Count 3.61 M/mm3 (4.20-5.40); Red Cell Distribution Width 12.2 % (11.5-17.5); White Blood Count 12.1 K/mm3 (4.8-10.8)
--- NOTE | 2020-08-27 09:14 | XR_ITS ---
PROCEDURE: XR CHEST PORTABLE CLINICAL HISTORY: md order - pneumonia COMPARISON: No exams were available for comparison FINDINGS: Bipolar pacemaker is present from the left subclavian approach. Normal heart size. There are atelectatic changes in both lower lobes. The area of consolidation in the right lung base has more of atelectatic change on today's exam. There is some nodularity in the right mid to lower lung zone and may also be due to some atelectasis. Follow-up recommended to confirm resolution. No acute bony abnormalities. IMPRESSION: Bilateral lower lobe atelectasis with nodularity in the right mid lower lung zone which may also be due to atelectasis. Follow-up suggested to confirm Dictated by: Loy Li MD 08/27/2020 15:22 Loy Li MD in OV 08/27/2020 15:22
[2020-08-27 11:08] LABS: POC Glucose,Bedside 190 (70-110)
--- NOTE | 2020-08-27 14:55 | PC.NURSE ---
Sputum specimen collected and sent to lab
--- NOTE | 2020-08-27 15:03 | SW/DCPLANNER ---
WAS ANTICIPATING THIS PATIENT TO DISCHARGE HOME TODAY WITH HOME HEALTH SERVICES BUT PATIENT IS STAYING ANOTHER DAY.. ONCE DISCHARGED SHE WILL BE SET UP WITH [facility] PER PATIENT CHOICE.. AT THIS TIME PATIENT WILL REMAIN IN THE ACUTE HOSPITAL...
--- NOTE | 2020-08-27 15:10 | PC.NURSE ---
I have personnally witnessed pt using incentive spirometer. Uses often and correctly. Pt reports that she is now having a productive cough since starting the I/S.
[2020-08-27 16:14] LABS: POC Glucose,Bedside 135 (70-110)
--- NOTE | 2020-08-27 17:47 | PC.NURSE ---
called to check on pt's condition, states that her chest xray looks better and he plans to discharge her home tomorrow. No new orders received.
--- NOTE | 2020-08-27 19:13 | PC.NURSE ---
report given to alex
[2020-08-27 20:50] LABS: POC Glucose,Bedside 203 (70-110)
[2020-08-28] VITALS: BP 128/53; PULSE 64; RESP 17; TEMP 36.9; O2SAT 94
[2020-08-28 04:00] VITALS: BP 126/62; PULSE 63; RESP 16; TEMP 36.6; O2SAT 96
[2020-08-28 05:00] VITALS: BMI 23.8
[2020-08-28 06:32] LABS: POC Glucose,Bedside 127 (70-110)
--- NOTE | 2020-08-28 06:45 | PC.NURSE ---
Pt is A&Ox4 and has c/o pain 1x to feet. Pt medicated with Tylenol 1x and was effective. Peripheral pulses and PIN WORKER are WNL. Lungs CTA. Pt has been utilizing IS on numerous occasions. Pt has denied any N/V/D, CP, SOA, or dyspnea. Pt continues on room air. VSS, call light within reach.
[2020-08-28 08:00] VITALS: BP 118/61; PULSE 70; RESP 16; TEMP 36.8; O2SAT 97
[2020-08-28 08:06] VITALS: PULSE 70
--- NOTE | 2020-08-28 11:11 | HMH.ACPN2 ---
Internal Medicine - PN: Subj *Date: 08/28/20 *Time: 11:11 Interval history: . Her chest x-ray yesterday showed improvement. It appeared to be more suggestive of atelectasis than pneumonia. She still has some elevation of her white count according to CBC yesterday. Her leg is much less painful. Her temperature is not elevated. Exam Vital signs and Labs for Last 24 Hours: Temp Pulse Resp BP Pulse Ox 98.2 F 70 16 118/61 97 08/28/20 08:00 08/28/20 08:06 08/28/20 08:00 08/28/20 08:00 08/28/20 08:00 Laboratory Results - last 24 hr 08/27/20 16:06: POC Glucose 135 H 08/27/20 20:10: POC Glucose 203 H 08/28/20 05:57: POC Glucose 127 H I & O for Last 24 hours: Intake & Output 08/25/20 08/26/20 08/27/20 08/28/20 11:59 11:59 11:59 11:59 Intake Total 650 / 650 360 / 360 1080 / 1080 1200 / 1200 Output Total 1400 / 1400 Balance -750 / -750 360 / 360 1080 / 1080 1200 / 1200 Weight 121 lb 4 oz 119 lb 8 oz 118 lb 8 oz 118 lb Microbiology Reports for the Last 24 Hours: Microbiology 08/23/20 09:50 Blood Blood Culture - Final NO GROWTH AFTER 5 DAYS 08/23/20 09:40 Blood Blood Culture - Final NO GROWTH AFTER 5 DAYS 08/26/20 15:00 Sputum - Expectorated Sputum Gram Stain - Final 08/26/20 15:00 Sputum - Expectorated Sputum Sputum Culture - Preliminary 08/25/20 21:20 Blood Blood Culture - Preliminary NO GROWTH AFTER 48 HOURS 08/25/20 11:10 Blood Blood Culture - Preliminary NO GROWTH AFTER 48 HOURS 08/25/20 10:13 Urine,Catheterized Urine Culture - Final NO GROWTH AFTER 48 HOURS - Constitutional no acute distress - *Routine HEENT Exam Head: Present: normocephalic Eye: Present: PERRL ENT: Present: mucous membranes moist - *Routine Respiratory Exam Present: CTA bilaterally - *Routine Cardiovascular Exam Present: RRR - *Routine Abdominal Exam Present: soft. Absent: tenderness - *Routine Extremities Exam Present: edema (Minimal), normal capillary refill - *Routine Neurological Exam Present: alert, oriented X3 Assessment and Plan (1) PAD (peripheral artery disease) Status: Chronic Category: Medical Code(s): I73.9 - Peripheral vascular disease, unspecified (2) Lower limb ischemia Status: Acute Category: Medical Code(s): I99.8 - Other disorder of circulatory system (3) Claudication Status: Acute Category: Medical Code(s): I73.9 - Peripheral vascular disease, unspecified (4) CAD (coronary artery disease) Status: Chronic Qualifiers: Coronary Disease-Associated Artery/Lesion type: [place] artery [place] vs. transplanted heart: [place] heart Associated angina: without angina Qualified Code(s): I25.10 - Atherosclerotic heart disease of [place] coronary artery without angina pectoris Category: Medical Code(s): I25.10 - Atherosclerotic heart disease of [place] coronary artery without angina pectoris (5) COPD (chronic obstructive pulmonary disease) Status: Chronic Qualifiers: COPD type: unspecified COPD Qualified Code(s): J44.9 - Chronic obstructive pulmonary disease, unspecified Category: Medical Code(s): J44.9 - Chronic obstructive pulmonary disease, unspecified (6) Cardiac pacemaker in situ Status: Chronic Category: Medical Code(s): Z95.0 - Presence of cardiac pacemaker (7) Diabetes mellitus Status: Chronic Qualifiers: Diabetes mellitus type: type 2 Diabetes mellitus terminal supervisor insulin use: without terminal supervisor use Diabetes mellitus complication status: without complication Qualified Code(s): E11.9 - Type 2 diabetes mellitus without complications Category: Medical Code(s): E11.9 - Type 2 diabetes mellitus without complications (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
[2020-08-28 11:42] VITALS: BP 120/62; PULSE 65; RESP 16; TEMP 36.6; O2SAT 98
[2020-08-28 11:43] LABS: POC Glucose,Bedside 183 (70-110)
--- NOTE | 2020-08-28 12:07 | HMH.PHACLD ---
Hattie Zamora has received discharge medication counseling on the following medications: CEFDINIR 300MG XARELTO 20MG PATIENT ALREADY TAKES PRAVASTATIN, ASPIRIN, PLAVIX, METOPROLOL, AND LOSARTAN. NEW MEDICATIONS WERE SENT TO [facility]. PATIENT IS TO CONTINUE ALL OTHER HOME MEDICATIONS WITH THE EXCEPTION OF ELIQUIS. PATIENT VERBALIZED UNDERSTANDING AND HAD NO QUESTIONS AT THIS TIME. -RADHIKA DAVID, CANDED
--- NOTE | 2020-08-29 05:09 | HMH.DCSUM ---
General - General Admission date:: 08/21/20 Discharge date: 08/28/20 HPI HPI: Ms. Zamora is a 80-year-old female with a past medical history significant for DM, hypertension, hyperlipidemia, asthma, COPD, CHF, CAD, Afib, and peripheral vascular disease with prior stenting who presented to the emergency department for evaluation of right foot pain that occasionally radiated up her right leg. The pain had been present for about 3 weeks since she had a left lower extremity stent placed for peripheral vascular disease (entry through right groin). She denied any pain in the right groin or problems with the wound there. Pain in the left leg was better since procedure. She had experienced no recent fevers or recent trauma to the right leg. She saw Dr. Chadwick the previous week for the symptoms and was advised to walk more on the extremity. However, the pain had been too great in her foot. She had no relief with gabapentin. She reported the leg will at times go cold and then rewarm itself. Upon arrival to the ED, CTA of the lower extremities showed 1. Occluded right external iliac artery with reconstitution in the right common femoral artery and then with occlusion of the right distal common femoral artery with reconstitution of the right SFA. 2. Severe bilateral atheromatous changes involving both lower extremities. Long segment high-grade stenosis is present within a right superficial femoral artery stent with severe distal segmental areas of stenosis and occlusion of the right popliteal and trifurcation vessels. The right anterior tibial artery is patent to the ankle. 3. Severe approximately percent stenosis involving the proximal left SFA just proximal to a long stent which is patent with occluded proximal peroneal and posterior tibial arteries with patent anterior tibial artery to the ankle on the left. Findings were reviewed with Dr. Chadwick who recommended admission, IV heparin therapy, pain management with IV pain medication, and plans for lower extremity runoff and treatment tomorrow. Hospital Course Hospital Course: On admission patient was placed on a heparin drip with pain management. She was seen by cardiology with plan for lower extremity angiogram and intervention the following day, 08/22/2020. Results were as follows: Angiographic stent deployments to the right SFA and right external iliac artery. Patient did have some continued pain in the toes and the foot after the procedure. She developed a low-grade fever with elevated white blood cells. Blood cultures were ordered and she was placed on Rocephin IV. Chest x-ray showed pneumonia versus atelectatic changes. Zithromax was added to her med regime. Her circulation did improve after the procedures and the edema did lessen. Gabapentin was increased due to ongoing discomfort. Physical therapy was contacted. She did have some hallucinations 1 night and did not sleep well. She blamed this on pain med. On 08/25/2020 she had less foot pain and the foot and toes were pink. Patient was followed by cardiology throughout her stay with the following assessment and plan: 1. Patient is stable from a cardiovascular standpoint. Continue aspirin, Plavix and Xarelto therapy for 1 month and then discontinue aspirin with continuation of Plavix and Xarelto therapy thereafter. Patient can be discharged from a cardiac standpoint whenever she is stable from Dr. Valencia standpoint. Recommend follow-up in our office in 1 week. Cultures results eventually were negative. White blood cell count did gradually decrease. Patient did develop some left lower chest discomfort with inspiration. Repeat chest x-ray showed improvement and appeared to be more suggestive of atelectasis rather than pneumonia. She begin to use an incentive spirometer. Her leg was much less painful and pain was controlled with tylenol. Leg circulation remained intact. She ambulated without difficulty with use of a walker. On
== END 2020-08-28 12:07 | disposition home health service (06) | DRG 253 ==
LOC: ER 10:08 → 2ND 13:55
PROVIDERS: Internal Medicine; Admitting Provider Family Medicine; Emergency Provider Emergency Medicine; PCP Family Medicine; Visit Provider Family Medicine
PROC: 047L34Z Dilation of Left Femoral Artery with Drug-eluting Intraluminal Device, Percutaneous Approach (ICD-10-PCS; principal; 2020-08-22 11:45)
DX: I70.223 Atherosclerosis of native arteries of extremities with rest pain, bilateral legs (principal); I70.92 Chronic total occlusion of artery of the extremities; I13.0 Hypertensive heart and chronic kidney disease with heart failure and stage 1 through stage 4 chronic kidney disease, or unspecified chronic kidney disease; I74.3 Embolism and thrombosis of arteries of the lower extremities; I74.5 Embolism and thrombosis of iliac artery; J98.11 Atelectasis; E11.51 Type 2 diabetes mellitus with diabetic peripheral angiopathy without gangrene; N18.2 Chronic kidney disease, stage 2 (mild); I49.5 Sick sinus syndrome; Z79.01 Long term (current) use of anticoagulants; Z95.0 Presence of cardiac pacemaker; Z95.5 Presence of coronary angioplasty implant and graft; E11.22 Type 2 diabetes mellitus with diabetic chronic kidney disease; I50.9 Heart failure, unspecified
CPT/HCPCS: 36415; 37221; 37226; 71045; 71046; 73701; 80048; 81001; 82962; 85007; 85025; 85347; 85610; 85730; 86328; 87040; 87070; 87086; 87205; 96367; 96374; 96375; 97116; 97161; 99152; 99153; 99284; C1725; C1760; C1766; C1769; C1876; C1894; J0456; J1644; Q9966; Q9967

== ENCOUNTER → 2021-01-05 09:06 | Outpatient (CLI) | payer MEDICARE, SELFPAY ==
--- NOTE | 2021-01-05 09:16 | CA_ITS ---
APPROVED REPORT Laterality: Bilateral Business Rules Developer: Emily Packer RCS, RVS Pulses Right Prox Mid Distal Subcl. 196 141 121 Axillary 67 Brachial 76 84 101 Radial 67 Ulnar 67 Left Prox Mid Distal Subcl. 96 118 147 Axillary 93 Brachial 101 115 95 Radial 67 Ulnar 42 Waveforms Prox Mid Distal Subcl. Tri-phasic Tri-phasic Tri-phasic Axillary Tri-phasic Brachial Tri-phasic Tri-phasic Tri-phasic Radial Tri-phasic Ulnar Tri-phasic Left Prox Mid Distal Subcl. [id number] Tri-phasic Tri-phasic Axillary Tri-phasic Brachial Tri-phasic Tri-phasic Tri-phasic Radial Tri-phasic Ulnar Tri-phasic Findings Color Flow Duplex demonstrates no evidence of significant arterial insufficiency of the right upper extremity. Color Flow Duplex demonstrates no evidence of significant arterial insufficiency of the left upper extremity. Spectral Doppler Waveform Analysis of the bilateral upper extremities are within normal limits. Two-dimensional imaging of the upper extremity arterial system reveals normal findings. Conclusion Color Flow Duplex demonstrates no evidence of significant arterial insufficiency of the right upper extremity. Color Flow Duplex demonstrates no evidence of significant arterial insufficiency of the left upper extremity. Spectral Doppler Waveform Analysis of the bilateral upper extremities are within normal limits. Two-dimensional imaging of the upper extremity arterial system reveals normal findings. Electronically signed by : Loy Li MD 01/05/2021 16:02:16
== END ==
LOC: RT 09:08
PROVIDERS: PCP Family Medicine; Visit Provider Internal Medicine
DX: I73.9 Peripheral vascular disease, unspecified (principal)
CPT/HCPCS: 93930

== ENCOUNTER 2021-03-10 14:09 | Observation (INO) | payer MEDICARE, SELFPAY ==
[2021-03-10] VITALS (18 sets, daily range): BP systolic 119–166; BP diastolic 57–80; PULSE 62–78; RESP 16–20; TEMP 36–36.8; O2SAT 96–99; BMI 23.8; BMI 34.9
--- NOTE | 2021-03-10 | IR_ITS ---
APPROVED REPORT Patient Location: Outpatient Dramatic Coach: MARIA LUISA Moyer RT (R) PROCEDURES Left femoral arterial access Catheter placement in the right external iliac artery Right external iliac artery angiogram Angioplasty to the right external iliac artery Catheter placement in the right common femoral artery Right femoral artery angiogram Angioplasty to the right femoral artery Catheter placed into the right superficial femoral artery Right superficial femoral artery angiogram Angioplasty to the right superficial femoral artery Angioplasty to the right profunda femoris artery INDICATION Acute right leg/foot ischemia, Limb threatening ischemia to the right leg, 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 COMPLICATIONS None Estimated Blood Loss: less than 10ml TECHNIQUE 1% lidocaine used to anesthetize the left femoral groin. The left femoral artery was accessed via the Seldinger technique. A 5 [place] sheath was placed in the left femoral artery and a rim catheter was advanced under fluoroscopic guidance into the right external iliac artery where angiography was performed. Therapeutic heparin was administered and an advantage wire was placed distally into the right superficial femoral artery. Angioplasty was performed involving the right common femoral artery right superficial femoral artery the right external iliac artery initially with a 6 x 40 mm balloon and then upsized to a 7 x 80 mm balloon. Following this there was excellent reperfusion of the right leg however the right profunda femoris artery was bluntly occluded from the angioplasty. A 5 [place] sheath was exchanged for a long 6 [place] destination sheath and the advantage wire was used to cannulate the right profunda femoris artery where a 5 mm x 40 mm balloon was then deployed on 2 occasions to open the ostium of the profunda femoris and restore flow. At the end of the procedure there was excellent inline flow into the distal right popliteal artery with excellent flow into the right profunda femoris artery and throughout the iliofemoral region. At the end of the procedure the apparatus was removed the groin was reprepped gloves were changed sheath was removed good hemostasis was achieved using Angio-Seal patient was transferred to the postop putting in stable condition ANGIOGRAPHIC RESULTS The right common iliac artery is patent Right external iliac artery has a stent which has a 90% stenosis The right common femoral artery has a stent which is subtotally occluded greater than 99% The right profunda femoris artery was initially open however closed after the angioplasty of the femoral artery and superficial femoral artery however was then reopened after angioplasty of the profunda femoris artery The right superficial femoral artery has severe proximal in-stent restenosis however is patent into the popliteal artery The right popliteal artery is patent. 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 Aspirin 81 mg daily plus Plavix 75 mg daily 2. LDL less than 55 3. Risk factor modification 4. Physical therapy 5. Avoidance of tobacco products 6. Appropriate use of anticoagulation if required
[2021-03-10 14:45] LABS: Hematocrit 40.3 % (37.0-47.0); Hemoglobin 13.3 g/dL (12.2-16.2); Red Blood Count 4.55 M/mm3 (4.20-5.40); White Blood Count 18.1 K/mm3 (4.8-10.8)
[2021-03-10 14:46] LABS: Basophils # 0.1 K/mm3 (0-0.2); Basophils % 0.4 % (0.1-2.0); Eosinophils # 0.5 K/mm3 (0.0-0.4); Lymphocytes # 3.4 K/mm3 (0.7-4.5); Lymphocytes % 18.9 % (10-50); Mean Corpuscular HGB Conc 33.1 g/dL (31.8-35.4); Mean Corpuscular Hemoglobin 29.3 pg (27.0-31.2); Mean Corpuscular Volume 88.5 fl (81-99); Mean Platelet Volume 7.6 fl (7.4-10.4); Monocytes # 1.2 K/mm3 (0.1-1.0); Monocytes % 6.7 % (1.7-9.3); Neutrophils # 12.9 K/mm3 (1.8-7.8); Neutrophils % 71.1 % (37.0-80.0); Platelet Count 332 K/mm3 (142-424); Red Cell Distribution Width 13.2 % (11.5-17.5)
[2021-03-10 14:48] LABS: MANUAL DIFFERENTIAL MANUAL DIFFERENTIAL (MANUAL DIFF)
[2021-03-10 14:53] LABS: Chloride 95 mmol/L (98-107); Potassium 3.5 mmoL/L (3.5-5.1); Sodium 136 mmol/L (136-145)
[2021-03-10 14:56] LABS: Blood Urea Nitrogen 29 mg/dl (7-17); Creatinine Clearance Estimated 39 mL/min (50-200); Estimated Glomerular Filt Rate 69 ml/min (>60); GFR (African American) 84 ML/MIN (>60)
[2021-03-10 14:57] LABS: Anion Gap 12.5 mEq/L (5-15); Calcium 8.8 mg/dl (8.4-10.2); Carbon Dioxide 32 mmol/L (22.0-30.0); Glucose 224 mg/dl (74-100)
[2021-03-10 15:40] LABS: Eosinophils % 4 % (0-3); Lymphocytes % 16 % (10-50); Monocytes % 5 % (2-9); Neutrophils % 75 % (42-76); Total Cells Counted 100
[2021-03-10 15:42] LABS: Hypochromasia 2+; Platelet Estimate Normal
[2021-03-10 15:46] LABS: CATHL Activated Clotting Time 237 SEC (74-125)
--- NOTE | 2021-03-10 16:54 | PC.NURSE ---
bed number [id number]
--- NOTE | 2021-03-10 17:21 | PC.NURSE ---
PATIENT UNABLE TO COMPLETE MED REC. THIS RN COMPLETED FROM PHARMACY LIST.
--- NOTE | 2021-03-10 19:06 | PC.NURSE ---
THIS RN REPORTED TO DR. FOX POSITIVE TEST RESULTS FOR COVID. THIS RN INFORMED MD THAT THERE WERE NO ORDERS FOR MEDICATIONS OR SLIDING SCALE. MD ORDERED LOW INTENSITY SLIDING SCALE, TYLENOL 650MG Q6HRS PRN FOR PAIN. THIS RN ALSO INFORMED MD THAT DR. MCKEE STATED IN HIS NOTE THAT THE PATIENT IS TO BE ON ASPIRIN 81MG AND PLAVIX DAILY. DR. FOX STATED TO ORDER MEDICATIONS. PER PATIENT AND HER GRANDDAUGHTER, PATIENT CAN NOT TAKE PLAVIX. THIS RN INQUIRED WHY AND PATIENT STATED I CAN'T TAKE IT, IT DOES WORK WITH ME. DR. JARRELL ON FLOOR, ALL INFORMATION WAS REPORTED TO MD. NO NEW ORDERS.
--- NOTE | 2021-03-10 19:45 | HMH.ACPN2 ---
Internal Medicine - PN: Subj *Date: 03/10/21 *Time: 19:45 Interval history: This 80-year-old white female was admitted today after a vascular procedure. She has chronic peripheral vascular disease. She has chronic discomfort in her right leg. This is intensified lately. She had discoloration of her toes on the right foot was seen by Dr. Chadwick today. He took her to the [facility]. 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 Aspirin 81 mg daily plus Plavix 75 mg daily 2. LDL less than 55 3. Risk factor modification 4. Physical therapy 5. Avoidance of tobacco products 6. Appropriate use of anticoagulation if required She is stable this evening after her procedure. She had COVID-19 vaccination with the [employer] product in October and November of this year. On this admission she has tested positive by PCR. This seems likely to be a false positive. Further evaluation will be obtained. She is not symptomatic for respiratory issues. Exam Vital signs and Labs for Last 24 Hours: Temp Pulse Resp BP Pulse Ox 97.6 F 66 16 135/57 L 97 03/10/21 17:25 03/10/21 18:55 03/10/21 18:55 03/10/21 18:55 03/10/21 18:25 Laboratory Results - last 24 hr 03/10/21 14:00: WBC 18.1 H, RBC 4.55, Hgb 13.3, Hct 40.3, MCV 88.5, MCH 29.3, MCHC 33.1, RDW 13.2, Plt Count 332, MPV 7.6, Neut % (Auto) 71.1, Lymph % (Auto) 18.9, [place] % (Auto) 6.7, Eos % (Auto) 3.0, Baso % (Auto) 0.4, Neut # (Auto) 12.9 H, Lymph # (Auto) 3.4, [place] # (Auto) 1.2 H, Eos # (Auto) 0.5 H, Baso # (Auto) 0.1, Total Counted 100, Neutrophils % (Manual) 75, Lymphocytes % (Manual) 16, Monocytes % (Manual) 5, Eosinophils % (Manual) 4 H, Platelet Estimate Normal, Hypochromasia 2+ 03/10/21 14:00: Sodium 136, Potassium 3.5, Chloride 95 L, Carbon Dioxide 32 H, Anion Gap 12.5, BUN 29 H, Creatinine 0.80, Estimated Creat Clear 39, Estimated GFR 69, Est GFR ( Amer) 84, Glucose 224 H, Calcium 8.8 03/10/21 15:25: Activated Clotting Time 237 H* I & O for Last 24 hours: Intake & Output 03/08/21 03/09/21 03/10/21 03/11/21 11:59 11:59 11:59 11:59 Intake Total 360 / 360 Balance 360 / 360 Weight 124 lb 2 oz Microbiology Reports for the Last 24 Hours: Microbiology 03/10/21 14:14 Nasopharyngeal Coronavirus COVID-19 PCR - Final - Constitutional no acute distress - *Routine HEENT Exam Head: Present: normocephalic Eye: Present: PERRL ENT: Present: mucous membranes moist - *Routine Respiratory Exam Present: decreased breath sounds, CTA bilaterally - *Routine Cardiovascular Exam Present: RRR - *Routine Abdominal Exam Present: soft. Absent: tenderness - *Routine Extremities Exam Present: cyanosis (There is a difference in coloration in the to lower extremities. There is more edema on the right. The third toe is discolored and cyanotic. The leg does feel warm on the right.) - *Routine Neurological Exam Present: alert, oriented X3 Assessment and Plan (1) Peripheral vascular disease of lower extremity Status: Acute Category: Medical Code(s): I73.9 - Peripheral vascular disease, unspecified (2) Type 2 diabetes mellitus Status: Acute Category: Medical Code(s): E11.9 - Type 2 diabetes mellitus without complications (3) Real time reverse transcriptase PCR positive for COVID-19 virus Status: Acute Category: Medical Code(s): U07.1 - COVID-19 - Assessment and plan all Dx Assessment and Plan for all problems:: Post procedure observation. The PCR COVID-19 test is likely a false positive.
[2021-03-10 19:57] LABS: Coronavirus 19 IgG Antibody Positive (Negative); Coronavirus 19 IgM Antibody Negative (Negative)
[2021-03-10 20:06] LABS: Adenovirus,PCR Not Detected (NotDetected); Bordetella Pertussis Not Detected (NotDetected); Chlamydophila Pneumoniae, PCR Not Detected (NotDetected); Coronavirus 19, PCR Not Detected (NotDetected); Coronavirus 229E Not Detected (NotDetected); Coronavirus NL63 Not Detected (NotDetected); Coronavirus OC43 Not Detected (NotDetected); Coronovirus HKU1,PCR Not Detected (NotDetected); Human Metapneumovirus Not Detected (NotDetected); Influenza A, PCR Not Detected (NotDetected); Influenza AH1, 2009 Not Detected (NotDetected); Influenza AH1, PCR Not Detected (NotDetected); Influenza AH3,PCR Not Detected (NotDetected); Influenza B, PCR Not Detected (NotDetected); Mycoplasma Pneumoniae, PCR Not Detected (NotDetected); Parainfluenza 1, PCR Not Detected (NotDetected); Parainfluenza 2, PCR Not Detected (NotDetected); Parainfluenza 3, PCR Not Detected (NotDetected); Parainfluenza 4, PCR Not Detected (NotDetected); Respiratory Syncytial Virus Not Detected (NotDetected); Rhinovirus/Enterovirus Not Detected (NotDetected)
[2021-03-11] VITALS (22 sets, daily range): BP systolic 101–184; BP diastolic 52–79; PULSE 67–88; RESP 14–20; TEMP 36.6–37; O2SAT 92–100; BMI 34.3; BMI 24.4
--- NOTE | 2021-03-11 04:57 | PC.NURSE ---
PT A&OX4. PT TOLERATING RA WELL T/O SHIFT. PT VSS THUS FAR. AT BEGINNING OF SHIFT, PT LEFT LEG COLORED AND WARM. PULSES TO PEDAL. RIGHT LEG WARM AND COLORED, REDDENED. ALL PULSES PRESENT. CATH SITE TO L GROIN CDI. PT HAD SLEPT T/O MAJORITY OF SHIFT. AROUND 0400, PT AWOKE C/O SHARP PAIN IN L LEG, NUMBNESS TO L FOOT, PALE AND COOL TO TOUCH. USED DOPPLER TO FIND PULSES, ONLY FEMORAL PULSE FOUND AT THIS TIME. DR MCKEE NOTIFIED OF THE FOLLOWING. HEPARIN BOLUS AND DRIP ORDERED. VERIFIED W/ PHARMACY. 20ML/HR DRIP STARTED AND BOLUS GIVEN. BASE PTT DRAWN PRIOR. DISCUSSED FINDINGS WITH PT. RAFI TO TAKE TO SECOND CRUSHER AT 0700. NEW CONSENT SIGNED. PT HAS NOT EATEN SINCE BEFORE FIRST CATH. ZOFRAN ORDERED FOR NAUSEA PER SALES PERSON MD FOX AND ADMINISTERED. NO C/O AT THIS TIME, VSS WILL CONTINUE TO MONITOR.
[2021-03-11 05:39] LABS: INR 0.93 (0.9-1.1)
--- NOTE | 2021-03-11 06:49 | PC.NURSE ---
PERCOCET 10 X1 DOSE ADMINISTERED PER MD MCKEE. PT RESTING IN BED AT THIS TIME.
--- NOTE | 2021-03-11 07:03 | IR_ITS ---
APPROVED REPORT Patient Location: Inpatient Spanner Operator: MARIA LUISA Moyer RT (R) PROCEDURES Right radial arterial access Catheter placement in the left common femoral artery Left common femoral artery antegrade angiogram Angioplasty with stent deployment to the left common femoral artery Angioplasty with stent deployment to the left superficial femoral artery Angioplasty to the left popliteal artery INDICATION Acute left femoral arterial thrombosis, Peripheral artery disease, Acute left leg ischemia Informed consent was obtained prior to the procedure. COMPLICATIONS None Estimated Blood Loss: Less than 10 mls TECHNIQUE 1% lidocaine used to anesthetize the right anterior wrist. The right radial artery was accessed via the Seldinger technique. Initially short radial sheath was placed in the right radial artery and in the long advantage wire was advanced to the transverse aorta. Following this a 70 cm long hydrophilic radial sheath was advanced to the transverse aorta where a 5 Bengali EDGE catheter was then used to angle into the descending aorta. The advantage wire was advanced into the descending thoracic aorta and the EDGE catheter was removed. The dilator was reinserted and the sheath was then advanced down to T5 level. ACT was checked which was subtherapeutic therefore therapeutic heparin was administered giving a therapeutic ACT. The PV multi curve was advanced to the left common femoral artery where antegrade angiography demonstrated abrupt occlusion. The wire was then advanced into the superficial femoral artery and a 7 mm x 80 mm self-expanding stent was deployed in the left superficial femoral artery extending back into the left common femoral artery. A 6 x 80 mm balloon was then deployed at 12 codey to post dilate. Angiography demonstrated poor perfusion distally therefore the catheters were advanced into the left popliteal artery and left superficial femoral artery and antegrade angiography was performed. A 5 mm x 200 mm balloon was initially inflated in the proximal portion of the SFA however repeat angiography demonstrated distal disease was present therefore a long 5 mm x 150 mm balloon was advanced to the popliteal level and then deployed at 12 codey for 90 seconds and a stepped approach pulling the balloon back with each inflation. At the end of the procedure repeat angiography demonstrated wide patency of the left common femoral artery left superficial femoral artery left profunda femoris artery left popliteal artery with inline flow into the anterior tibialis artery. After achieving excellent angiographic results the apparatus was removed the sheath was removed good hemostasis was achieved using TR banding patient was transferred to the postop holding area in stable condition ANGIOGRAPHIC RESULTS The left common femoral artery is bluntly occluded At the end of the procedure the left common femoral artery left superficial femoral artery left profunda femoris artery and left popliteal artery had excellent inline flow distally The left superficial femoral artery and left popliteal artery had severe diffuse in-stent restenosis prior to the procedure IMPRESSION Peripheral artery disease as described above Successful revascularization of the above-mentioned arteries PLAN 1. Continue current plan with dual antiplatelet therapy 2. Continue risk factor modification 3. Supportive care Electronically signed by : Sage Chadwick, 03/11/2021 08:40:15
--- NOTE | 2021-03-11 07:25 | HMH.PHAVTE ---
[facility] Pharmacy VTE Monitoring - Patient Demographics Admission date: 03/11/21 Report Date: 03/11/21 Time: 07:25 Allergies/Adverse Reactions: Patient Allergies codeine [CODEINE] Allergy (Unknown, Verified 03/10/21 14:27) Unknown allergy reaction morphine Allergy (Unknown, Verified 03/10/21 14:27) Unknown allergy reaction Height: 1.27 m Weight: 55.395 kg Patient Problems: Current Active Problems Peripheral vascular disease of lower extremity (Acute) Type 2 diabetes mellitus (Acute) Real time reverse transcriptase PCR positive for COVID-19 virus (Acute) - VTE Risk Labs: VTE Related Lab Results Hgb 13.3 g/dL (12.2-16.2) 03/10/21 14:00 Hct 40.3 % (37.0-47.0) 03/10/21 14:00 Plt Count 332 K/mm3 (142-424) 03/10/21 14:00 PT 11.0 seconds (10.1-12.5) 03/11/21 04:26 INR 0.93 (0.9-1.1) 03/11/21 04:26 APTT 24.0 seconds (22.8-30.6) 03/11/21 04:26 BUN 29 mg/dl (7-17) H 03/10/21 14:00 Creatinine 0.80 mg/dl (0.52-1.04) 03/10/21 14:00 Estimated Creat Clear 39 mL/min (50-200) 03/10/21 14:00 Was VTE Risk Assessment Performed: Yes VTE Score: 9 VTE Risk Level: Moderate Risk Clinical Trial Participant: No - Prophylaxis VTE Prophylaxis Ordered?: Yes Types of VTE Prophylaxis: TEDS Knee High
--- NOTE | 2021-03-11 07:47 | PC.NURSE ---
This RN received report on pt this am, although she was already in [facility]. Awaiting update/report from [facility].
[2021-03-11 07:57] LABS: Basophils # 0.1 K/mm3 (0-0.2); Basophils % 0.3 % (0.1-2.0); Eosinophils # 0.5 K/mm3 (0.0-0.4); Lymphocytes # 3.4 K/mm3 (0.7-4.5); Monocytes # 1.2 K/mm3 (0.1-1.0); Neutrophils % 69.2 % (37.0-80.0)
[2021-03-11 08:00] LABS: Anion Gap 8.8 mEq/L (5-15); Blood Urea Nitrogen 21 mg/dl (7-17); Calcium 8.5 mg/dl (8.4-10.2); Carbon Dioxide 28 mmol/L (22.0-30.0); Chloride 103 mmol/L (98-107); Creatinine Clearance Estimated 40 mL/min (50-200); Estimated Glomerular Filt Rate 81 ml/min (>60); GFR (African American) 98 ML/MIN (>60); Glucose 166 mg/dl (74-100); Potassium 3.8 mmoL/L (3.5-5.1); Sodium 136 mmol/L (136-145)
[2021-03-11 08:02] LABS: Hematocrit 36.2 % (37.0-47.0); Lymphocytes % 20.4 % (10-50); Mean Corpuscular HGB Conc 32.9 g/dL (31.8-35.4); Mean Corpuscular Hemoglobin 28.9 pg (27.0-31.2); Mean Corpuscular Volume 87.6 fl (81-99); Neutrophils # 11.7 K/mm3 (1.8-7.8); Platelet Count 292 K/mm3 (142-424); Red Blood Count 4.14 M/mm3 (4.20-5.40); Red Cell Distribution Width 13.3 % (11.5-17.5); White Blood Count 16.9 K/mm3 (4.8-10.8)
[2021-03-11 08:05] LABS: Hemoglobin 11.9 g/dL (12.2-16.2); MANUAL DIFFERENTIAL MANUAL DIFFERENTIAL (MANUAL DIFF)
[2021-03-11 08:31] LABS: Eosinophils % 2 % (0-3); Lymphocytes % 18 % (10-50); Monocytes % 6 % (2-9); Neutrophils % 74 % (42-76); Platelet Estimate Normal; RBC Morphology Normal; Total Cells Counted 100
--- NOTE | 2021-03-11 09:27 | XR_ITS ---
PROCEDURE: XR FOOT RT MIN 3V CLINICAL INDICATION: Right toes 2nd, 3rd, 4th DM ulcers COMPARISON: CR FTR3 FOOT-RT-3 VIEWS from 11/17/2016 CR XR FOOT LT MIN 3V from 08/22/2019 CR XR FOOT LT MIN 3V from 08/23/2019 CR XR FOOT WT BEARING LT 3V from 09/26/2019 FINDINGS: No obvious fracture or dislocation. No lytic changes apparent. Osteoarthritic changes are present talonavicular, navicular cuneiform, and tarsal metatarsal junction with some bony hypertrophy along the tarsal metatarsal junction. There is vascular calcification. There is a small calcaneal spur IMPRESSION: Degenerative changes. No bony destructive process that would indicate osteomyelitis Dictated by: Loy Li MD 03/11/2021 10:01 Loy Li MD in [place] 03/11/2021 10:01
--- NOTE | 2021-03-11 09:53 | HMH.PHAINT ---
CLARIFIED HOME MEDICATION LIST USING LIST FROM [facility] AND [facility]ICE
--- NOTE | 2021-03-11 10:39 | PC.NURSE ---
Spoke with Rachel at Dr. Valencia's office in [place] to home meds being re-ordered and that pt has no ssi ordered.
[2021-03-11 11:09] LABS: POC Glucose,Bedside 219 (70-110)
--- NOTE | 2021-03-11 11:45 | HMH.PNCARD ---
Subjective Date: 03/11/21 Time: 11:00 Principal diagnosis: PAD Interval history: Patient was admitted to [facility] last evening to undergo bilateral lower extremity runoff (immediately from the cardiology office) due to right lower extremity ischemic, no palpable pulses, Right foot #2, #3 and #4 toes purple with open wounds, Red streak on anterior aspect of right foot that is apparent up to the ankle. edematous. Pain for 3 weeks. (This was scribed by Andrés BELLO). Patient denies chest pain, tightness or pressure. Patient denies shortness of breath. Denies palpitations or dizziness. Patient does have history of coronary artery disease. Drug-eluting stent was placed and May 2018. Last cath was February 2019 which revealed medical management. PAD is present, right foot ischemic. Right foot #2, #3 and #4 toes purple with open wounds, Red streak on anterior aspect of right foot that is apparent up to the ankle. Patient is currently on Plavix and aspirin. Patient had been on Xarelto but was unable to take it due to nausea and vomiting. Patient was able to tolerate Eliquis but had been taken off of it previously for unknown reason. Patient does have pacemaker in place from December 2019. No events noted on download. Bilateral lower extremity runoff revealed acute chronic collusion of the right external iliac artery, right common femoral artery, right superficial femoral artery which required successful angioplasty of the right external iliac artery and the right common femoral artery and the right superficial femoral artery. In the middle of the night, patient complained of increased pain and coolness to the left foot. Left foot was noted as ischemic and cold. Dr. Chadwick was notified by nursing staff. Dr. Chadwick came in and performed left lower extremity runoff which required stenting to the left common femoral artery and the left femoral superficial artery. Bilateral lower extremities are noted as warm with palpable pulses. No discoloration noted. Patient states she is feeling much better. Patient denies lower extremity pain. Will consult podiatry due to nonhealing lesions on the right foot and toes. Will restart patient on Eliquis 2.5 mg twice daily this is due to renal function age and weight. Eliquis will be in addition to her Plavix 75 mg daily along with the aspirin 81 mg daily. In 1 month, patient will stop the aspirin and will only be taking Eliquis and Plavix on a daily basis for her CAD and PAD. Bilateral lower extremity runoff:IMPRESSION (03/10/21) Acute on chronic occlusion of the right external iliac artery, right common femoral artery, right superficial femoral artery, Successful angioplasty of the right external iliac artery and right common femoral artery and right superficial femoral artery Initial abrupt occlusion of the right profunda femoris artery which opened with angioplasty to the right profunda femoris artery PLAN 1. Aspirin 81 mg daily plus Plavix 75 mg daily 2. LDL less than 55 3. Risk factor modification 4. Physical therapy 5. Avoidance of tobacco products 6. Appropriate use of anticoagulation if required Left lower extremity runoff ( 03/11/21)ANGIOGRAPHIC RESULTS The left common femoral artery is bluntly occluded At the end of the procedure the left common femoral artery left superficial femoral artery left profunda femoris artery and left popliteal artery had excellent inline flow distally The left superficial femoral artery and left popliteal artery had severe diffuse in-stent restenosis prior to the procedure IMPRESSION Peripheral artery disease as described above Successful revascularization of the above-mentioned arteries PLAN 1. Continue current plan with dual antiplatelet therapy 2. Continue risk factor modification 3. Supportive care Discussed plan of care with Dr. Chadwick. Will restart Eliquis 2.5 mg twice a day for PAD this will be addition to her Plavix 75 mg and aspirin 81 mg daily. In 1 month, nallely
--- NOTE | 2021-03-11 13:20 | HMH.HP ---
*Admission Date: 03/11/21 *Chief complaint: leg pain *History of present illness: This 80-year-old white female was admitted today after a vascular procedure. She has chronic peripheral vascular disease. She has chronic discomfort in her right leg. This is intensified lately. She had discoloration of her toes on the right foot was seen by Dr. Chadwick today. He took her to the [facility]. 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 Aspirin 81 mg daily plus Plavix 75 mg daily 2. LDL less than 55 3. Risk factor modification 4. Physical therapy 5. Avoidance of tobacco products 6. Appropriate use of anticoagulation if required She is stable this evening after her procedure. She had COVID-19 vaccination with the [employer] product in October and November of this year. On this admission she has tested positive by PCR. This seems likely to be a false positive. Further evaluation will be obtained. She is not symptomatic for respiratory issues. (above as per Dr. Valencia) The patient began having pain in the left foot and was taken back to the [facility] today and had a stent placed on the left side. [facility] History I have reviewed the patient's past medical history: Yes Medical History: Reports:: Arrhythmia, Asthma, Atherosclerotic Heart Disease, Atrial Fibrillation, Congestive Heart Failure, Chronic Obstructive Pulmonary Disease (COPD), Coronary Artery Disease, Depression, Heart Murmur, Hyperlipidemia, Hypertension, Internal Pacemaker, Peripheral Artery Disease, Renal Insufficiency Denies:: Cancer, Diabetes Mellitus Type 1, Diabetes Mellitus Type 2, MRSA, Seizures *Have you ever received a pneumonia vaccine?: Yes *Have you received a flu vaccine this season?: No Other Medical History: Reports: Anemia, Arthritis, Cataracts, Other Laterality Cases: Bilateral: Tonsillectomy Other Surgeries: Yes: Angiogram, Angioplasty, Cardiac Catheterization, Coronary Stent, Pacemaker, Sinus Surgery, Tubal Ligation, Other (PAD with multiple stents to bilateral legs) Amputation: No Fractures: No - *Social History Smoking Status: Never smoker Alcohol Intake: never Alcohol Intake Frequency:: other Substance Use Type: denies use *Occupational Status:: retired Housing: house Household Members: family *Travel in the last 8 weeks: None - Psychiatric History Pschychiatric History:: Reports:: Depression Family Hx:: Anemia, Coronary Artery Disease, Diabetes, Heart Attack Review of Systems - Constitutional Denies fatigue, Denies fever(s), Denies weakness - Eyes Denies blurry vision, Denies double vision - ENT Denies nasal congestion, Denies sore throat - *Cardiovascular Denies chest pain, Denies shortness of breath - *Respiratory Denies chest congestion, Denies cough - *Gastrointestinal Denies abdominal pain, Denies loose stools, Denies nausea, Denies vomiting - *Genitourinary Denies difficulty urinating, Denies painful urination - *Musculoskeletal Denies joint pain - *Neurologic Denies headache(s), Denies dizziness, Denies weakness Meds Home Medications Medication Instructions Recorded Confirmed Type Pravastatin Sodium [Pravachol 40mg 40 mg PO HS 03/31/18 03/10/21 History Tablet] gabapentin 100 mg capsule 100 mg PO TID cap 07/13/18 03/10/21 History Budesonide/Formoterol Fumarate 2 puffs IH BID 08/16/19 03/10/21 History [Symbicort 160-4.5 Mcg Inhaler] losartan 50 mg tablet 50 mg PO DAILY tab 06/04/20 03/10/21 History furosemide 20 mg tablet 20 - 40 mg PO DIRECTED tab 10/06/20 03/11/21 History metoprolol tartrate 50 mg tablet 25 mg PO BID #90 tab 10/28/20 03/10/21
[2021-03-11 13:38] LABS: CATHL Activated Clotting Time 257 SEC (74-125)
[2021-03-11 13:40] LABS: CATHL Activated Clotting Time 169 SEC (74-125)
[2021-03-11 15:45] LABS: POC Glucose,Bedside 162 (70-110)
--- NOTE | 2021-03-11 17:02 | PC.NURSE ---
This RN did also make EUGENIA Grant aware that pt didn't have many orders as well. Pt is alert and oriented. R cath wrist site is cdi dsg at this time. VSS. Pt has had no c/o since heart cath this am. Has been paced on tele. CB in reach Have checked finger sticks per worklist. NAD. Dr. King has been consulted in re to R 3rd toe, that is discolored. Lungs cta, bs x 4, and pt has been up and voided in bathroom with assistance.
--- NOTE | 2021-03-11 17:07 | HMH.ORTHOCON ---
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 She has chronic peripheral vascular disease. She has chronic discomfort in her right leg. This is intensified lately. She had discoloration of her toes on the right foot was seen by Dr. Chadwick and he took her to the [facility] last night. Today she had left LE cath procedure. She reports pain has improved. [facility] History I have reviewed the patient's past medical history: Yes Medical History: Reports:: Arrhythmia, Asthma, Atherosclerotic Heart Disease, Atrial Fibrillation, Congestive Heart Failure, Chronic Obstructive Pulmonary Disease (COPD), Coronary Artery Disease, Depression, Heart Murmur, Hyperlipidemia, Hypertension, Internal Pacemaker, Peripheral Artery Disease, Renal Insufficiency Denies:: Cancer, Diabetes Mellitus Type 1, Diabetes Mellitus Type 2, MRSA, Seizures *Have you ever received a pneumonia vaccine?: Yes *Have you received a flu vaccine this season?: No Other Medical History: Reports: Anemia, Arthritis, Cataracts, Other Laterality Cases: Bilateral: Tonsillectomy Other Surgeries: Yes: Angiogram, Angioplasty, Cardiac Catheterization, Coronary Stent, Pacemaker, Sinus Surgery, Tubal Ligation, Other (PAD with multiple stents to bilateral legs) Amputation: No Fractures: No - *Social History Smoking Status: Never smoker Alcohol Intake: never Alcohol Intake Frequency:: other Substance Use Type: denies use *Occupational Status:: retired Housing: house Household Members: none *Travel in the last 8 weeks: None - Psychiatric History Pschychiatric History:: Reports:: Depression Family Hx:: Anemia, Coronary Artery Disease, Diabetes, Heart Attack Review of Systems - Review of Systems Review of systems:: pertinent systems reviewed and negative unless documented below - Constitutional Reports lack of energy, Denies chills - Eyes Denies blind spots - ENT Denies abnormal hearing - *Cardiovascular Denies chest pain - *Respiratory Denies shortness of breath - *Gastrointestinal Denies abdominal pain - *Genitourinary Denies abnormal periods - *Musculoskeletal Reports joint swelling, Reports radiating pain into limb - Integumentary/Breasts Reports hair loss, Reports nail changes, Reports wounds - *Neurologic Reports tingling/numbness/burning sensations, Denies headache(s), Denies dizziness, Denies weakness - Psychiatric Denies abnormal sleep pattern - Hematologic/Lymphatic Reports easy bruising Meds Home Medications Medication Instructions Recorded Confirmed Type Pravastatin Sodium [Pravachol 40mg 40 mg PO HS 03/31/18 03/10/21 History Tablet] gabapentin 100 mg capsule 100 mg PO TID cap 07/13/18 03/10/21 History Budesonide/Formoterol Fumarate 2 puffs IH BID 08/16/19 03/10/21 History [Symbicort 160-4.5 Mcg Inhaler] losartan 50 mg tablet 50 mg PO DAILY tab 06/04/20 03/10/21 History furosemide 20 mg tablet 20 - 40 mg PO DIRECTED tab 10/06/20 03/11/21 History metoprolol tartrate 50 mg tablet 25 mg PO BID #90 tab 10/28/20 03/10/21 Rx Digoxin 125 mcg PO DAILY 03/10/21 03/11/21 History Aspirin [Aspirin 81mg EC Tab] 81 mg PO DAILY 03/11/21 03/11/21 History Clopidogrel Bisulfate [Plavix] 75 mg PO DAILY 03/11/21 03/10/21 History Metformin HCl [Fortamet] 500 mg PO BID 03/11/21 03/11/21 History Allergies Allergy/AdvReac Type Severity Reaction Status Date / Time codeine [CODEINE] Allergy Unknown Unknown Verified 03/10/21 14:27 allergy reaction morphine Allergy Unknown Unknown Verified 03/10/21 14:27 allergy reaction Exam Vital signs and Labs for Last 24 Hours: Temp Pulse Resp BP Pulse Ox 98.4 F 85 16 148/66 H 94 L 03/11/21 15:40 03/11/21 15:40 03/11/21 15:40 03/11/21 15:40 03/11/21 15:40 Laboratory Results - last 24 hr 03/10/21 14:00: SARS-CoV-2 IgG Ab (Rapid) Positive
--- NOTE | 2021-03-11 19:47 | PC.NURSE ---
Correction pt has been NSR on tele.
[2021-03-11 20:10] LABS: POC Glucose,Bedside 193 (70-110)
[2021-03-12] VITALS (12 sets, daily range): BP systolic 110–157; BP diastolic 40–61; PULSE 69–81; RESP 16–20; TEMP 36.6–37.7; O2SAT 90–97; BMI 25.4
--- NOTE | 2021-03-12 03:14 | PC.NURSE ---
Patient reported pain RLE Pain Rx administered at 0248. Will continue to monitor and assess
--- NOTE | 2021-03-12 03:48 | PC.NURSE ---
Pleasant female patient oriented times four. Patient had Heart Cath 03/11/2021 during day shift with entrance on RUE, Radial. No signs of bleeding at site, tegaderm clean, dry and intact. Also noted Fem sites previously accessed clean dry and intact with no hematoma noted. Patient c/o of pain in the RLE onlty after she ambulated to the bathroom with assistance of 2 in the beginning of this shift. Pt required 2 administration of pain Rx. Will continue to monitor for any acute changes.
[2021-03-12 05:49] LABS: POC Glucose,Bedside 115 (70-110)
[2021-03-12 07:44] LABS: Basophils % 0.2 % (0.1-2.0); Eosinophils # 0.5 K/mm3 (0.0-0.4); Hematocrit 34.4 % (37.0-47.0); Hemoglobin 11.2 g/dL (12.2-16.2); Lymphocytes # 3.6 K/mm3 (0.7-4.5); Lymphocytes % 22.3 % (10-50); Mean Corpuscular HGB Conc 32.6 g/dL (31.8-35.4); Mean Corpuscular Hemoglobin 28.5 pg (27.0-31.2); Mean Corpuscular Volume 87.4 fl (81-99); Monocytes # 1.1 K/mm3 (0.1-1.0); Neutrophils # 10.9 K/mm3 (1.8-7.8); Neutrophils % 67.5 % (37.0-80.0); Platelet Count 312 K/mm3 (142-424); Red Blood Count 3.93 M/mm3 (4.20-5.40); Red Cell Distribution Width 13.2 % (11.5-17.5); White Blood Count 16.2 K/mm3 (4.8-10.8)
[2021-03-12 07:52] LABS: MANUAL DIFFERENTIAL MANUAL DIFFERENTIAL (MANUAL DIFF)
[2021-03-12 07:54] LABS: Anion Gap 6.2 mEq/L (5-15); Blood Urea Nitrogen 19 mg/dl (7-17); Calcium 8.6 mg/dl (8.4-10.2); Carbon Dioxide 32 mmol/L (22.0-30.0); Chloride 101 mmol/L (98-107); Creatinine Clearance Estimated 41 mL/min (50-200); Estimated Glomerular Filt Rate 69 ml/min (>60); GFR (African American) 84 ML/MIN (>60); Glucose 114 mg/dl (74-100); Potassium 4.2 mmoL/L (3.5-5.1); Sodium 135 mmol/L (136-145)
[2021-03-12 07:59] LABS: C-Reactive Protein 84.9 mg/L (0-4)
--- NOTE | 2021-03-12 08:36 | HMH.PNCARD ---
Subjective Date: 03/12/21 Time: 08:15 Principal diagnosis: PAD Interval history: This is a 80-year-old white female who was admitted to the hospital with an ischemic right lower extremity with ulcerations and open wounds to digits 2 3 and 4 of the right foot. The patient underwent runoff the patient underwent angioplasty of the right external iliac artery and right common femoral artery and the right superficial femoral artery. There was acute occlusion of the right profunda femoris artery which was opened with angioplasty to the right profunda femoris artery. In the middle of the night the night before the patient had increased pain and coolness in the left lower extremity she was taken back to the cardiac catheterization laboratory and underwent runoff of the left lower extremity. The patient underwent angioplasty to the left common femoral artery and the left superficial femoral artery and the left profunda femoris artery and the left popliteal artery. The patient has been restarted on Eliquis in addition to Plavix and aspirin. She will take triple therapy for 1 month and then after 1 month she will stop the aspirin and remain on Eliquis and Plavix for her coronary artery disease and peripheral arterial disease. She denies any chest pain or pressure. She denies any shortness of breath or edema. She denies any fever, chills, nausea, vomiting, diarrhea, PND or orthopnea. She has had some pain in the lower extremities. She states that the pain did get pretty severe last night but did improve with pain medication. She had some pain this morning but took pain meds about an hour ago and this is significantly improved as well. Exam Vital signs and Labs for Last 24 Hours: Temp Pulse Resp BP Pulse Ox 98.2 F 74 19 110/56 L 93 L 03/12/21 07:28 03/12/21 07:28 03/12/21 07:28 03/12/21 07:28 03/12/21 07:28 Laboratory Results - last 24 hr 03/11/21 07:49: Activated Clotting Time 169 H* 03/11/21 08:02: Activated Clotting Time 257 H* D 03/11/21 10:59: POC Glucose 219 H 03/11/21 11:12: PT 12.0, INR 1.00, APTT 139.0 H* D 03/11/21 15:37: POC Glucose 162 H 03/11/21 19:57: POC Glucose 193 H 03/12/21 05:41: POC Glucose 115 H 03/12/21 07:24: WBC 16.2 H, RBC 3.93 L, Hgb 11.2 L, Hct 34.4 L, MCV 87.4, MCH 28.5, MCHC 32.6, RDW 13.2, Plt Count 312, MPV 8.0, Neut % (Auto) 67.5, Lymph % (Auto) 22.3, [place] % (Auto) 7.0, Eos % (Auto) 3.0, Baso % (Auto) 0.2, Neut # (Auto) 10.9 H, Lymph # (Auto) 3.6, [place] # (Auto) 1.1 H, Eos # (Auto) 0.5 H, Baso # (Auto) 0.0 03/12/21 07:24: Sodium 135 L, Potassium 4.2, Chloride 101, Carbon Dioxide 32 H, Anion Gap 6.2, BUN 19 H, Creatinine 0.80, Estimated Creat Clear 41, Estimated GFR 69, Est GFR ( Amer) 84, Glucose 114 H, Calcium 8.6, C-Reactive Protein 84.9 H I & O for Last 24 hours: Intake & Output 03/09/21 03/10/21 03/11/21 03/12/21 23:59 23:59 23:59 23:59 Intake Total 360 / 360 420 / 420 674 / 674 Output Total 50 / 50 0 / 0 Balance 360 / 360 370 / 370 674 / 674 Weight 124 lb 2 oz 121 lb 4.068 oz 126 lb - Constitutional no acute distress, average body habitus - *Routine HEENT Exam Head: Present: normocephalic, atraumatic Eye: Present: EOMI, PERRL ENT: Present: mucous membranes moist - *Routine Neck Exam Present: supple, full ROM, normal carotid upstroke. Absent: JVD, carotid bruit, lymphadenopathy - *Routine Respiratory Exam Present: CTA bilaterally - *Routine Cardiovascular Exam Present: RRR, Normal S1, Normal S2. Absent: murmur - *Routine Abdominal Exam Present: soft, normoactive bowel sounds. Absent: tenderness, distended - *Routine Extremities Exam Present: edema, full ROM, pulses intact (Diminished pulses in the left lower extremity, right lower extremity is in a dressing and cannot be palpated). Absent: cyanosis, clubbing - *Routine Skin Exam Present: erythema (Right lower extremity), warm, wounds (Right lower extremity digits 2 3 and 4, wrapped in a dressing). Absent: rash
--- NOTE | 2021-03-12 08:41 | HMH.PHACONS ---
- Pharmacy Consult Date: 03/12/21 Time: 08:42 Referring provider: RUTHIE AWLL Reason for Consult:: FROM PODIATRY H&P: Right 3rd ischemic toe Patient had b/l LE run-off with Dr. Chadwick 03/10/21 for right and 03/11/21 for left. Pain has improved. Skin has increased warmth and pedal pulses noted. Right 3rd toe painted with betadine. No plans for surgical amputation or surgical debridement at this time. Discussed plan of care with the patient. She does not want surgery at this time. We will continue to monitor. I explained revascularization could allow the toe to get enough perfusion to heal like it did last year on the left first and second toes. We will monitor for infection. Patient understands if she has a deep ulcer or infection is noted or extends to the level of the bone she may need toe amputation. For now continue to monitor. Betadine soaked gauze applied around the ischemic toe to keep it dry with a loose dry sterile dressing. Plan for dressing change tomorrow. Allergies and ADEs:: Allergies Allergy/AdvReac Type Severity Reaction Status Date / Time codeine [CODEINE] Allergy Unknown Unknown Verified 03/10/21 14:27 allergy reaction morphine Allergy Unknown Unknown Verified 03/10/21 14:27 allergy reaction Home Medications:: Home Medications Medication Instructions Recorded Confirmed Type Pravastatin Sodium [Pravachol 40mg 40 mg PO HS 03/31/18 03/10/21 History Tablet] gabapentin 100 mg capsule 100 mg PO TID cap 07/13/18 03/10/21 History Budesonide/Formoterol Fumarate 2 puffs IH BID 08/16/19 03/10/21 History [Symbicort 160-4.5 Mcg Inhaler] losartan 50 mg tablet 50 mg PO DAILY tab 06/04/20 03/10/21 History furosemide 20 mg tablet 20 - 40 mg PO DIRECTED tab 10/06/20 03/11/21 History metoprolol tartrate 50 mg tablet 25 mg PO BID #90 tab 10/28/20 03/10/21 Rx Digoxin 125 mcg PO DAILY 03/10/21 03/11/21 History Aspirin [Aspirin 81mg EC Tab] 81 mg PO DAILY 03/11/21 03/11/21 History Clopidogrel Bisulfate [Plavix] 75 mg PO DAILY 03/11/21 03/10/21 History Metformin HCl [Fortamet] 500 mg PO BID 03/11/21 03/11/21 History Height: 1.5 m Weight: 57.153 kg Laboratory Results:: Laboratory Results - last 24 hr 03/11/21 07:49: Activated Clotting Time 169 H* 03/11/21 08:02: Activated Clotting Time 257 H* D 03/11/21 10:59: POC Glucose 219 H 03/11/21 11:12: PT 12.0, INR 1.00, APTT 139.0 H* D 03/11/21 15:37: POC Glucose 162 H 03/11/21 19:57: POC Glucose 193 H 03/12/21 05:41: POC Glucose 115 H 03/12/21 07:24: WBC 16.2 H, RBC 3.93 L, Hgb 11.2 L, Hct 34.4 L, MCV 87.4, MCH 28.5, MCHC 32.6, RDW 13.2, Plt Count 312, MPV 8.0, Neut % (Auto) 67.5, Lymph % (Auto) 22.3, [place] % (Auto) 7.0, Eos % (Auto) 3.0, Baso % (Auto) 0.2, Neut # (Auto) 10.9 H, Lymph # (Auto) 3.6, [place] # (Auto) 1.1 H, Eos # (Auto) 0.5 H, Baso # (Auto) 0.0 03/12/21 07:24: Sodium 135 L, Potassium 4.2, Chloride 101, Carbon Dioxide 32 H, Anion Gap 6.2, BUN 19 H, Creatinine 0.80, Estimated Creat Clear 41, Estimated GFR 69, Est GFR ( Amer) 84, Glucose 114 H, Calcium 8.6, C-Reactive Protein 84.9 H Medical History: Reports:: Arrhythmia, Asthma, Atherosclerotic Heart Disease, Atrial Fibrillation, Congestive Heart Failure, Chronic Obstructive Pulmonary Disease (COPD), Coronary Artery Disease, Depression, Heart Murmur, Hyperlipidemia, Hypertension, Internal Pacemaker, Peripheral Artery Disease, Renal Insufficiency Denies:: Cancer, Diabetes Mellitus Type 1, Diabetes Mellitus Type 2, MRSA, Seizures Assessment and Plan (1) Peripheral vascular disease of lower extremity Status: Acute Category: Medical Code(s): I73.9 - Peripheral vascular disease, unspecified (2) Type 2 diabetes mellitus Status: Acute Category: Medical Code(s): E11.9 - Type 2 diabetes mellitus without complications (3) Real time reverse transcriptase PCR positive for COVID-19 virus Status: Acute Category: Medical Code(s): U07.1 - COVID-19 (4)
[2021-03-12 08:43] LABS: Erythrocyte Sedimentation Rate 89 mm/hr (0-30)
--- NOTE | 2021-03-12 08:43 | HMH.ACPN2 ---
Internal Medicine - PN: Subj *Date: 03/12/21 *Time: 08:43 Interval history: Patient states she is feeling better this morning. She is still having some bilateral leg pain but it has improved since she had the stents placed. Dr. King saw her this morning and changed her dressing. There are no plans for surgical amputation and Dr. King prefers to monitor her foot and feels she can be discharged home with outpatient follow-up. Exam Vital signs and Labs for Last 24 Hours: Temp Pulse Resp BP Pulse Ox 98.2 F 74 19 110/56 L 93 L 03/12/21 07:28 03/12/21 07:28 03/12/21 07:28 03/12/21 07:28 03/12/21 07:28 Laboratory Results - last 24 hr 03/11/21 07:49: Activated Clotting Time 169 H* 03/11/21 08:02: Activated Clotting Time 257 H* D 03/11/21 10:59: POC Glucose 219 H 03/11/21 11:12: PT 12.0, INR 1.00, APTT 139.0 H* D 03/11/21 15:37: POC Glucose 162 H 03/11/21 19:57: POC Glucose 193 H 03/12/21 05:41: POC Glucose 115 H 03/12/21 07:24: WBC 16.2 H, RBC 3.93 L, Hgb 11.2 L, Hct 34.4 L, MCV 87.4, MCH 28.5, MCHC 32.6, RDW 13.2, Plt Count 312, MPV 8.0, Neut % (Auto) 67.5, Lymph % (Auto) 22.3, [place] % (Auto) 7.0, Eos % (Auto) 3.0, Baso % (Auto) 0.2, Neut # (Auto) 10.9 H, Lymph # (Auto) 3.6, [place] # (Auto) 1.1 H, Eos # (Auto) 0.5 H, Baso # (Auto) 0.0 03/12/21 07:24: Sodium 135 L, Potassium 4.2, Chloride 101, Carbon Dioxide 32 H, Anion Gap 6.2, BUN 19 H, Creatinine 0.80, Estimated Creat Clear 41, Estimated GFR 69, Est GFR ( Amer) 84, Glucose 114 H, Calcium 8.6, C-Reactive Protein 84.9 H 03/12/21 07:24: ESR 89 H I & O for Last 24 hours: Intake & Output 03/09/21 03/10/21 03/11/21 03/12/21 11:59 11:59 11:59 11:59 Intake Total 360 / 360 1094 / 1094 Output Total 50 / 50 0 / 0 Balance 310 / 310 1094 / 1094 Weight 122 lb 2 oz 126 lb - Constitutional no acute distress - *Routine Respiratory Exam Present: CTA bilaterally - *Routine Cardiovascular Exam Present: RRR - *Routine Abdominal Exam Present: soft, normoactive bowel sounds. Absent: tenderness - *Routine Extremities Exam Present: pulses intact. Absent: cyanosis, clubbing, edema Comments: Extremities warm to the touch, right foot with dressing in place - *Routine Skin Exam Present: warm. Absent: rash - *Routine Neurological Exam Present: alert, oriented X3 Assessment and Plan (1) Peripheral vascular disease of lower extremity Status: Acute Category: Medical Code(s): I73.9 - Peripheral vascular disease, unspecified (2) Type 2 diabetes mellitus Status: Acute Category: Medical Code(s): E11.9 - Type 2 diabetes mellitus without complications (3) Real time reverse transcriptase PCR positive for COVID-19 virus Status: Acute Category: Medical Code(s): U07.1 - COVID-19 (4) CAD (coronary artery disease) Status: Chronic Qualifiers: Qualified Code(s): I25.10 - Atherosclerotic heart disease of [place] coronary artery without angina pectoris Category: Medical Code(s): I25.10 - Atherosclerotic heart disease of [place] coronary artery without angina pectoris (5) COPD (chronic obstructive pulmonary disease) Status: Chronic Qualifiers: Qualified Code(s): J44.9 - Chronic obstructive pulmonary disease, unspecified Category: Medical Code(s): J44.9 - Chronic obstructive pulmonary disease, unspecified (6) Cardiac pacemaker in situ Status: Chronic Category: Medical Code(s): Z95.0 - Presence of cardiac pacemaker (7) Diabetes mellitus Status: Chronic Qualifiers: Qualified Code(s): E11.9 - Type 2 diabetes mellitus without complications Category: Medical Code(s): E11.9 - Type 2 diabetes mellitus without complications (8) HTN (hypertension) Status: Chronic Qualifiers: Qualified Code(s): I10 - Essential (primary) hypertension Category: Medical Code(s): I10 - Essential (primary) hypertension (9) Hyperlipemia Status: Chronic Qualifiers: Qualified Code(s): E78.2
--- NOTE | 2021-03-12 09:49 | HMH.ORTHPN ---
Subjective Date: 03/12/21 Time: 07:35 Principal diagnosis: PAD Interval history: Patient is resting comfortably in bed, just finished breakfast. Denies nausea vomiting, fever chills, shortness of breath or chest pain. She reports the pain in the legs continues to improve. She reports pain with palpation of the right third toe. There are pulses but the right third toe is still dusky. Patient does not want to have any foot surgery. PN: Obj Ex Vital signs: Temp Pulse Resp BP Pulse Ox 98.2 F 80 19 110/56 L 93 L 03/12/21 07:28 03/12/21 09:09 03/12/21 07:28 03/12/21 07:28 03/12/21 07:28 - Constitutional no acute distress - Routine HEENT Exam Head: Present: normocephalic Eye: Present: EOMI ENT: Present: mucous membranes moist - Routine Neck Exam Present: supple - Routine Respiratory Exam Absent: respiratory distress - Routine Cardiovascular Exam Present: RRR - Routine Abdominal Exam Present: soft - Routine Extremities Exam Present: pulses intact. Absent: amputation - Routine Skin Exam Present: gangrene (Right 3rd toe gangreme: purplish discoloration noted. Superficial ulcer/abrasion noted: 100% intact brown eschar, 3x3x0.0cm, no purulence drainage or malodor. Localized edema and erythema to the right foot. ) - Routine Neurological Exam Present: alert, oriented X3 Progress Note: A&P (1) Peripheral vascular disease of lower extremity Status: Acute (2) Type 2 diabetes mellitus Status: Acute (3) CAD (coronary artery disease) Status: Chronic (4) COPD (chronic obstructive pulmonary disease) Status: Chronic (5) Cardiac pacemaker in situ Status: Chronic (6) Diabetes mellitus Status: Chronic (7) HTN (hypertension) Status: Chronic (8) Hyperlipemia Status: Chronic (9) PAF (paroxysmal atrial fibrillation) Status: Chronic (10) Ischemic ulcer of toe of right foot Status: Acute (11) Ischemic ulcer of toe of right foot, limited to breakdown of skin Status: Acute Assessment and Plan for All Diagnoses:: Right 3rd ischemic toe, PAD: Labs, 03/10/21: wbc 18.1, 03/11/21: 16.9 03/12/21: wbc 16.2, esr 89, crp 84.9, glucose 114 Patient had b/l LE run-off with Dr. Chadwick 03/10/21 for right and 03/11/21 for left. Pain has improved. Skin has increased warmth and pedal pulses noted. Right 3rd toe painted with betadine. No plans for surgical amputation or surgical debridement at this time. Discussed plan of care with the patient. She does not want surgery at this time. We will continue to monitor. I explained revascularization could allow the toe to get enough perfusion to heal like it did last year on the left first and second toes. We will monitor for infection. Patient understands if she has a deep ulcer or infection is noted or extends to the level of the bone she may need toe amputation. For now continue to monitor. Betadine soaked gauze applied around the ischemic toe to keep it dry with a loose dry sterile dressing. 1. Daily wound care: paint the right toes with betadine (ok to cover with betadine soaked gauze, dry dressing) 2. Avoid dressing if painful 3. High infection markers: ordered Vanco 4. Will need oral abx x 2wks at discharge for cellulitis (Doxy 100mg BID) 5. Stable from a podiatry standpoint to be discharged home and follow-up outpatient 03/17/21 @1500
[2021-03-12 10:04] LABS: Eosinophils % 2 % (0-3); Lymphocytes % 25 % (10-50); Monocytes % 8 % (2-9); Neutrophils % 65 % (42-76); Nucleated Red Blood Cells 1; Total Cells Counted 100
[2021-03-12 10:05] LABS: Hypochromasia 1+; Platelet Estimate Normal
[2021-03-12 11:22] LABS: POC Glucose,Bedside 139 (70-110)
--- NOTE | 2021-03-12 11:37 | HMH.PTEV ---
Physical Therapy Evaluation Rehab PT IP Evaluation Start: 03/12/21 10:45 Freq: ONCE Status: Active Protocol: Document 03/12/21 11:33 PHORHANS (Rec: 03/12/21 11:37 PHORNE [id number]) Subjective/History History History 80 yowf adm to [facility] with severe PAD with occlusion in R LE, now S/P cath with angioplasty and stent placement for revascularization. She reports she lives with family, 3 steps to enter, and does not use an AD for ambulation at baseline. Subjective Subjective Pt c/o pain and tenderness in the R lower leg and foot this am. Rehab PT IP Eval Objective Appearance Patient Behavior Appropriate Patient Orientation Person,Place,Time Difficulty following instructions none Speech Pattern Clear Ambulation Patient Able to Ambulate Yes Ambulation Observation IP General Gait Pattern Observation Antalgic Gait Ambulation Distance (feet) 40 Ambulation Assistive Device None Ambulation Ability Supervision/Stand by Balance Ability to Arise Able, uses arms to help Sitting Balance Steady, safe Standing Balance Steady, wide stance Dynamic Sitting Balance Ability Good Dynamic Standing Balance Ability Good Transfers Bed Transfer Ability Supervision/Stand by Chair Transfer Ability Supervision/Stand by Sit to Stand Bed Transfer Ability Supervision/Stand by Sit to Stand Chair Transfer Ability Supervision/Stand by ROM All Extremities PT ROM Status WFL MMT All Extremities PT MMT WFL Rehab PT IP prob,goals,plan Problems Date of Evaluation: 03/12/21 Discharge Plan PT Discharge Plan Pt appears to be at or close to baseline for all mobility at this time. She is appropriate to return home once medically stable with family assist, recommend home health therapy. G -code Required No Eval Complexity Eval Charge Codes 18058 - Moderate Complexity PHYSICIAN CERTIFICATION: I certify the specified therapy services for Hattie Ruizrow are required, authorized, and reviewed every 30 days.
[2021-03-12 16:14] LABS: POC Glucose,Bedside 183 (70-110)
--- NOTE | 2021-03-12 19:50 | PC.NURSE ---
No acute changes this evening. Prn pain med per dec x 1 r/t r foot pain. CB in reach. VSS. NAD. Remains on RA. Pharm VTE.
[2021-03-12 22:55] LABS: POC Glucose,Bedside 136 (70-110)
[2021-03-13] VITALS (8 sets, daily range): BP systolic 111–154; BP diastolic 50–92; PULSE 65–77; RESP 17–18; TEMP 36.5–37.1; O2SAT 91–98; BMI 25.6
--- NOTE | 2021-03-13 03:51 | PC.NURSE ---
This pleasant patient is oriented times four. Patient has concerns regarding her increase in foot pain. Tramadol 50 mg PO administered X 2. Patient would like to have something a little stronger, however she states that Narcotics make her crazy and hallucinate . Soon after administration of pain medication, pt is asleep when reassessed. Patient anxious to talk to Dr. King regarding care for her RLE foot, 3rd toe. She would like to go back home soon. Will continue to monitor for any acute changes.
--- NOTE | 2021-03-13 08:00 | HMH.ACPN2 ---
<Elba Vasquez - Last Filed: 03/13/21 08:00> Internal Medicine - PN: Subj *Date: 03/13/21 *Time: 08:00 Interval history: Patient states she is feeling better today. The pain in her legs has improved and she was able to get up and walk yesterday with therapy. She slept better last night and is tolerating a diet. She is anxious to go home. Exam Vital signs and Labs for Last 24 Hours: Temp Pulse Resp BP Pulse Ox 97.7 F 77 18 154/51 H 91 L 03/13/21 07:13 03/13/21 07:13 03/13/21 07:13 03/13/21 07:13 03/13/21 07:13 Laboratory Results - last 24 hr 03/12/21 07:24: Total Counted 100, Neutrophils % (Manual) 65, Lymphocytes % (Manual) 25, Monocytes % (Manual) 8, Eosinophils % (Manual) 2, Nucleated RBCs 1, Platelet Estimate Normal, Hypochromasia 1+ 03/12/21 07:24: Sodium 135 L, Potassium 4.2, Chloride 101, Carbon Dioxide 32 H, Anion Gap 6.2, BUN 19 H, Creatinine 0.80, Estimated Creat Clear 41, Estimated GFR 69, Est GFR ( Amer) 84, Glucose 114 H, Calcium 8.6, C-Reactive Protein 84.9 H 03/12/21 07:24: ESR 89 H 03/12/21 11:14: POC Glucose 139 H 03/12/21 16:01: POC Glucose 183 H 03/12/21 20:27: POC Glucose 136 H I & O for Last 24 hours: Intake & Output 03/10/21 03/11/21 03/12/21 03/13/21 11:59 11:59 11:59 11:59 Intake Total 360 / 360 1094 / 1094 1939 Output Total 50 / 50 0 / 0 0 / 0 Balance 310 / 310 1094 / 1094 1939 Weight 122 lb 2 oz 126 lb 127 lb 1 oz - Constitutional no acute distress - *Routine Respiratory Exam Present: CTA bilaterally - *Routine Cardiovascular Exam Present: RRR - *Routine Abdominal Exam Present: soft, normoactive bowel sounds. Absent: tenderness - *Routine Extremities Exam Present: edema (Trace bilateral lower extremities), pulses intact. Absent: cyanosis, clubbing - *Routine Skin Exam Present: warm. Absent: rash Comments: Right foot with dressing in place - *Routine Neurological Exam Present: alert, oriented X3 Assessment and Plan (1) Peripheral vascular disease of lower extremity Status: Acute Category: Medical Code(s): I73.9 - Peripheral vascular disease, unspecified (2) Type 2 diabetes mellitus Status: Acute Category: Medical Code(s): E11.9 - Type 2 diabetes mellitus without complications (3) CAD (coronary artery disease) Status: Chronic Qualifiers: Coronary Disease-Associated Artery/Lesion type: [place] artery [place] vs. transplanted heart: [place] heart Associated angina: without angina Qualified Code(s): I25.10 - Atherosclerotic heart disease of [place] coronary artery without angina pectoris Category: Medical Code(s): I25.10 - Atherosclerotic heart disease of [place] coronary artery without angina pectoris (4) COPD (chronic obstructive pulmonary disease) Status: Chronic Qualifiers: COPD type: unspecified COPD Qualified Code(s): J44.9 - Chronic obstructive pulmonary disease, unspecified Category: Medical Code(s): J44.9 - Chronic obstructive pulmonary disease, unspecified (5) Cardiac pacemaker in situ Status: Chronic Category: Medical Code(s): Z95.0 - Presence of cardiac pacemaker (6) Diabetes mellitus Status: Chronic Qualifiers: Diabetes mellitus type: type 2 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 treater helper insulin use: without termite treater helper use Diabetes mellitus complication status: without complication Qualified Code(s): E11.9 - Type 2 diabetes mellitus without complications Category: Medical Code(s): E11.9 - Type 2 diabetes mellitus without complications (7) HTN (hypertension) Status: Chronic Qualifiers: Hypertension type: essential hypertension Qualified Code(s): I10 - Essential (primary) hypertension Category: Medical Code(s): I10 - Essential (primary) hypertension (8) Hyperlipemia Status: Chronic Qualifiers: Hyperlipidemia type: mixed hyperlipidemia Qualified Code(s): E78.2 - Mixed hyperlipidemia Category: Medical Code(s): E78.5 - Hyperlipi
--- NOTE | 2021-03-13 08:51 | HMH.ORTHPN ---
Subjective Date: 03/13/21 Time: 08:15 Principal diagnosis: PAD Interval history: Patient is resting comfortably in bed. She got up with physical therapy yesterday. She reports pain to the extremities has improved. Patient wants to go home today. She does report having some sputum and cough. PN: Obj Ex Vital signs: Temp Pulse Resp BP Pulse Ox 97.7 F 77 18 154/51 H 91 L 03/13/21 07:13 03/13/21 08:16 03/13/21 07:13 03/13/21 07:13 03/13/21 07:13 - Constitutional no acute distress - Routine HEENT Exam Head: Present: normocephalic - Routine Neck Exam Present: supple - Routine Respiratory Exam Absent: respiratory distress - Routine Abdominal Exam Present: soft - Routine Extremities Exam Present: pulses intact, tenderness (right 3rd toe). Absent: amputation - Routine Skin Exam Present: gangrene (Right 3rd toe gangrene: purplish discoloration noted. Superficial ulcer/abrasion noted: 100% intact brown eschar, 3x3x0.0cm, no purulence drainage or malodor. Localized edema and erythema to the right foot improved) - Routine Neurological Exam Present: alert, oriented X3 - Routine Psychiatric Exam Present: normal affect Progress Note: A&P (1) Peripheral vascular disease of lower extremity Status: Acute (2) Type 2 diabetes mellitus Status: Acute (3) CAD (coronary artery disease) Status: Chronic (4) COPD (chronic obstructive pulmonary disease) Status: Chronic (5) Cardiac pacemaker in situ Status: Chronic (6) Diabetes mellitus Status: Chronic (7) HTN (hypertension) Status: Chronic (8) Hyperlipemia Status: Chronic (9) PAF (paroxysmal atrial fibrillation) Status: Chronic (10) Ischemic ulcer of toe of right foot Status: Acute (11) Ischemic ulcer of toe of right foot, limited to breakdown of skin Status: Acute Assessment and Plan for All Diagnoses:: Right 3rd ischemic toe, PAD: Labs, 03/10/21: wbc 18.1, 03/11/21: 16.9 03/12/21: wbc 16.2, esr 89, crp 84.9, glucose 114 Patient had b/l LE run-off with Dr. Chadwick 03/10/21 for right and 03/11/21 for left. Pain has improved. Skin has increased warmth and pedal pulses noted. Right 3rd toe painted with betadine. No plans for surgical amputation or surgical debridement at this time. Discussed plan of care with the patient. She does not want surgery at this time. We will continue to monitor. I explained revascularization could allow the toe to get enough perfusion to heal like it did last year on the left first and second toes. We will monitor for infection. Patient understands if she has a deep ulcer or infection is noted or extends to the level of the bone she may need toe amputation. For now continue to monitor. Betadine soaked gauze applied around the ischemic toe to keep it dry with a loose dry sterile dressing. 1. Daily wound care: paint the right toes with betadine (ok to cover with betadine soaked gauze, dry dressing) 2. Avoid dressing if painful 3. High infection markers: ordered Vanco yesterday 4. Will need oral abx x 2wks at discharge for cellulitis (Doxy 100mg BID) 5. Stable from a podiatry standpoint to be discharged home and follow-up outpatient 03/17/21 @1500
--- NOTE | 2021-03-13 08:54 | XR_ITS ---
PROCEDURE: XR CHEST 2V CLINICAL HISTORY: Cough COMPARISON: CR XR CHEST 2V from 05/31/2020 DX XR CHEST 2V from 08/25/2020 CR XR CHEST PORTABLE from 08/27/2020 FINDINGS: The cardiomediastinal silhouette and pulmonary vascularity are within normal limits. The left-sided cardiac pacemaker is again noted with dual chamber electrodes position. The lungs are clear without infiltrates, suspicious nodules, or pleural effusions. No acute bony abnormalities, there is mild non recent compression of 2 adjacent midthoracic vertebrae. There is a questionable new sclerotic lesion lower thoracic spine probably due to degenerate change but consider follow-up thoracic spine films for better evaluation. IMPRESSION: No acute findings. Dictated by: Dr. Adrián Springer MD 03/13/2021 09:43 Dr. Adrián Springer MD in [place] 03/13/2021 09:43
[2021-03-13 11:48] LABS: POC Glucose,Bedside 151 (70-110)
--- NOTE | 2021-03-13 13:18 | HMH.PHACLD ---
Hattie Zamora has received discharge medication counseling on the following medications: PATIENT IS ALREADY TAKING PLAVIX, ASPIRIN, METOPROLOL, LOSARTAN, AND PRAVASTATIN. PATIENT VERBALIZED UNDERSTANDING AND HAD NO QUESTIONS AT THIS TIME. -RADHIKA DAVID, PHARMD
[2021-03-13 17:00] LABS: POC Glucose,Bedside 141 (70-110)
--- NOTE | 2021-03-15 07:54 | HMH.DCSUM ---
General - General Admission date:: 03/10/21 Discharge date: 03/13/21 HPI HPI: This 80-year-old white female was admitted after a vascular procedure. She is noted to have chronic peripheral vascular disease with chronic discomfort in her right leg whch had intensified. She had discoloration of her toes on the right foot and was seen by Dr. Chadwick. He took her to the Baby Counselor with the following notation: IMPRESSION Acute on chronic occlusion of the right external iliac artery, right common femoral artery, right superficial femoral artery, Successful angioplasty of the right external iliac artery and right common femoral artery and right superficial femoral artery Initial abrupt occlusion of the right profunda femoris artery which opened with angioplasty to the right profunda femoris artery PLAN 1. Aspirin 81 mg daily plus Plavix 75 mg daily 2. LDL less than 55 3. Risk factor modification 4. Physical therapy 5. Avoidance of tobacco products 6. Appropriate use of anticoagulation if required She was stable the evening after her procedure. She had COVID-19 vaccination with the Bubok product in October and November of 2020. With this admission she tested positive by PCR. This seemed likely to be a false positive. Further evaluation was obtained. She was not symptomatic for respiratory issues. (above as per Dr. Valencia) The patient began having pain in the left foot and was taken back to the cathodic protection technician and had a stent placed on the left side. Hospital Course Hospital Course: Patient was admitted after vascular procedure on 03/10/[address] Chadwick for chronic peripheral vascular disease with progressive discomfort in the right leg and discoloration of her toes on the right foot. She had been seen by Dr. Chadwick in his office and he took her directly to the Baby Counselor with the following impression. IMPRESSION Acute on chronic occlusion of the right external iliac artery, right common femoral artery, right superficial femoral artery, Successful angioplasty of the right external iliac artery and right common femoral artery and right superficial femoral artery Initial abrupt occlusion of the right profunda femoris artery which opened with angioplasty to the right profunda femoris artery The patient was also seen by Dr. King with the following notation: Patient was admitted to [facility] last evening to undergo bilateral lower extremity runoff (immediately from the cardiology office) due to right lower extremity ischemic, no palpable pulses, Right foot #2, #3 and #4 toes purple with open wounds, Red streak on anterior aspect of right foot that is apparent up to the ankle. edematous. Pain for 3 weeks. (This was scribed by Andrés BELLO). Patient denies chest pain, tightness or pressure. Patient denies shortness of breath. Denies palpitations or dizziness. Patient does have history of coronary artery disease. Drug-eluting stent was placed and May 2018. Last cath was February 2019 which revealed medical management. PAD is present, right foot ischemic. Right foot #2, #3 and #4 toes purple with open wounds, Red streak on anterior aspect of right foot that is apparent up to the ankle. Patient is currently on Plavix and aspirin. Patient had been on Xarelto but was unable to take it due to nausea and vomiting. Patient was able to tolerate Eliquis but had been taken off of it previously for unknown reason. Patient does have pacemaker in place from December 2019. No events noted on download. Bilateral lower extremity runoff revealed acute chronic collusion of the right external iliac artery, right common femoral artery, right superficial femoral artery which required successful angioplasty of the right external iliac artery and the right common femoral artery and the right superficial femoral artery. In the middle of the night, patient complained of increased pain and coolness to the left foot. Left foot was noted as ischemic and cold. Dr. Porter
== END 2021-03-13 13:30 | disposition home or self-care (01) ==
LOC: 2ND 14:09
PROVIDERS: Internal Medicine; Podiatrist; Admitting Provider Family Medicine; PCP Family Medicine; Visit Provider Family Medicine
DX: I70.235 Atherosclerosis of native arteries of right leg with ulceration of other part of foot (principal); I70.222 Atherosclerosis of native arteries of extremities with rest pain, left leg; E11.52 Type 2 diabetes mellitus with diabetic peripheral angiopathy with gangrene; I99.8 Other disorder of circulatory system; L97.511 Non-pressure chronic ulcer of other part of right foot limited to breakdown of skin; I77.1 Stricture of artery; M79.671 Pain in right foot; I48.0 Paroxysmal atrial fibrillation; T82.856A Stenosis of peripheral vascular stent, initial encounter; Z95.5 Presence of coronary angioplasty implant and graft; I11.0 Hypertensive heart disease with heart failure; I50.9 Heart failure, unspecified; Z79.84 Long term (current) use of oral hypoglycemic drugs; Z95.0 Presence of cardiac pacemaker; Z82.49 Family history of ischemic heart disease and other diseases of the circulatory system; J44.9 Chronic obstructive pulmonary disease, unspecified; I25.10 Atherosclerotic heart disease of native coronary artery without angina pectoris; Z79.02 Long term (current) use of antithrombotics/antiplatelets; Z79.82 Long term (current) use of aspirin; Z79.899 Other long term (current) drug therapy; Z88.5 Allergy status to narcotic agent
CPT/HCPCS: 36415; 37220; 37226; 71046; 73630; 80048; 82962; 85007; 85025; 85347; 85610; 85651; 85730; 86140; 86328; 87581; 87633; 87798; 97162; 99152; 99153; C1725; C1760; C1766; C1769; C1876; C1894; G0378; J1644; J2405; J3370; Q9966; U0003

== ENCOUNTER → 2021-03-24 14:28 | Outpatient (CLI) | payer MEDICARE, SELFPAY ==
[2021-03-24 14:51] LABS: Basophils # 0.1 K/mm3 (0-0.2); Basophils % 0.5 % (0.1-2.0); Eosinophils # 0.5 K/mm3 (0.0-0.4); Hematocrit 40.9 % (37.0-47.0); Hemoglobin 13.3 g/dL (12.2-16.2); Lymphocytes # 4.8 K/mm3 (0.7-4.5); Lymphocytes % 29.7 % (10-50); Mean Corpuscular HGB Conc 32.6 g/dL (31.8-35.4); Mean Corpuscular Hemoglobin 28.6 pg (27.0-31.2); Mean Corpuscular Volume 87.8 fl (81-99); Monocytes # 0.9 K/mm3 (0.1-1.0); Monocytes % 5.7 % (1.7-9.3); Neutrophils # 9.9 K/mm3 (1.8-7.8); Neutrophils % 61.1 % (37.0-80.0); Platelet Count 615 K/mm3 (142-424); Red Blood Count 4.66 M/mm3 (4.20-5.40); Red Cell Distribution Width 13.5 % (11.5-17.5); White Blood Count 16.2 K/mm3 (4.8-10.8)
[2021-03-24 15:02] LABS: MANUAL DIFFERENTIAL MANUAL DIFFERENTIAL (MANUAL DIFF)
[2021-03-24 15:17] LABS: Eosinophils % 1 % (0-3); Lymphocytes % 30 % (10-50); Neutrophils % 68 % (42-76); Total Cells Counted 100
[2021-03-24 15:20] LABS: Platelet Estimate Moderate Increase; RBC Morphology Normal
[2021-03-24 15:26] LABS: Erythrocyte Sedimentation Rate 24 mm/hr (0-30)
[2021-03-24 15:42] LABS: Alanine Aminotransferase 14 U/L (12-78); Albumin Level 3.9 g/dl (3.5-5.0); Albumin/Globulin Ratio 1.5 (1.1-1.8); Alkaline Phosphatase 83 U/L (38-126); Anion Gap 12.4 mEq/L (5-15); Aspartate Amino Transferase 25 U/L (14-36); Bilirubin,Total 0.4 mg/dl (0.2-1.3); Blood Urea Nitrogen 49 mg/dl (7-17); Calcium 9.9 mg/dl (8.4-10.2); Carbon Dioxide 31 mmol/L (22.0-30.0); Chloride 96 mmol/L (98-107); Estimated Glomerular Filt Rate 48 ml/min (>60); GFR (African American) 58 ML/MIN (>60); Globulin 2.6 g/dL (1.3-3.2); Glucose 112 mg/dl (74-100); Potassium 5.4 mmoL/L (3.5-5.1); Sodium 134 mmol/L (136-145); Total Protein,Serum 6.5 g/dl (6.3-8.2)
[2021-03-24 15:49] LABS: C-Reactive Protein 4.2 mg/L (0-4)
== END ==
PROVIDERS: Visit Provider Podiatrist
DX: Z01.812 Encounter for preprocedural laboratory examination (principal); Z11.52 Encounter for screening for COVID-19; I96 Gangrene, not elsewhere classified
CPT/HCPCS: 36415; 80053; 85007; 85025; 85651; 86140; U0003

== ENCOUNTER 2021-03-27 06:21 | Day surgery (SDC) | payer MEDICARE, SELFPAY ==
[2021-03-24 15:36] VITALS: BMI 23.2
[2021-03-27 06:45] VITALS: BP 174/64; PULSE 72; RESP 20; TEMP 36.5; O2SAT 99
[2021-03-27 07:11] LABS: POC Glucose,Bedside 110 (70-110)
--- NOTE | 2021-03-27 07:14 | HMH.ANESCL ---
[facility] Anesthesia Checklist - Patient Identification Patient Identification: Arm Band - Structural Data Admitted From: Home Planned Operative Procedure/s: right 3rd/4th Toe Amputation Consent for Planned Operative Procedure(s) Verified: Yes Verified Documents: Surgical Consent, History and Physical - NPO Status Verified Time NPO: 00:00 - Additional verifications Anesthesia Reactions: No Hx Blood Transfusions: No Blood Transfusion Reaction: No - Airway Assessment C-Spine Mobility Assessed: Yes (mp2) TMJ Mobility Assessed: Yes Dentition: Edentulous - Neurological Assessment Level of Consciousness: Awake, Alert - Anesthesia Plan Anesthesia Risk discussed: Yes Anesthesia Plan: Verified ASA Class: III Anesthesia Type: MAC [facility] History I have reviewed the patient's past medical history: Yes Medical History: Reports:: Arrhythmia, Asthma, Atherosclerotic Heart Disease, Atrial Fibrillation, Congestive Heart Failure, Chronic Obstructive Pulmonary Disease (COPD), Coronary Artery Disease, Depression, Diabetes Mellitus Type 2, Heart Murmur, Hyperlipidemia, Hypertension, Internal Pacemaker, Peripheral Artery Disease, Renal Insufficiency Denies:: Cancer, Diabetes Mellitus Type 1, MRSA, Seizures *Have you ever received a pneumonia vaccine?: Yes *Have you received a flu vaccine this season?: No Other Medical History: Reports: Anemia, Arthritis, Cataracts, Other. Denies: Blood Transfusion Reaction Anesthesia experience/problems:: nac Laterality Cases: Bilateral: Tonsillectomy Other Surgeries: Yes: Angiogram, Angioplasty, Cardiac Catheterization, Coronary Stent, Pacemaker, Sinus Surgery, Tubal Ligation, Other (PAD with multiple stents to bilateral legs) Amputation: No Fractures: No - *Social History Last grade of school completed: High school graduate Smoking Status: Never smoker Alcohol Intake: never Alcohol Intake Frequency:: other Substance Use Type: denies use *Occupational Status:: retired Housing: house Household Members: none *Travel in the last 8 weeks: None - Psychiatric History Pschychiatric History:: Reports:: Depression Family Hx:: Anemia, Coronary Artery Disease, Diabetes, Heart Attack
--- NOTE | 2021-03-27 07:32 | HMH.OPNOTE ---
Date of procedure: 03/27/21 Pre-op Diagnosis:: 1. 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 Right foot cellulitis Post-op Diagnosis:: Same Procedure performed:: 1. Right 3-4th toe amputation 2. Debridement of non-viable soft tissue and bone Surgeon:: Bouchra King DPM GROUNDS KEEPER:: Jaspreet Bassem Anesthesia: MAC Estimated blood loss (mL): 5 Clinical Note:: Patient is a 80 DM female with PAD who had revision b/l LE run off with stents last week by Dr. Chadwick. She has ischemic right 3-4th toes. We discussed conservative versus surgical treatment options. Conservative treatment options include local wound care, oral and IV antibiotics, change in shoe wear, taping/padding, and off-loading. Discussed that patient would benefit from a wider and deeper shoe wear to accommodate the deformity. We discussed surgical intervention for amputation of the right 3-4th toes. Patient understands that there is a chance that the toes can migrate to fill the gap or the foot may change shape after surgery. Patient also understands that they could have wound healing complications including delayed healing and infection. We discussed that if the wound does not heal, it is possible that they may need a more proximal amputation and could result in further loss of digits, loss of partial foot or loss of leg. We discussed the risks and benefits in great detail. Other surgical risks include: prolonged pain and swelling, further infection requiring oral or IV antibiotics, delay in healing of soft tissue or bone, nerve or blood vessel damage, CRPS/RSD, DVT, anesthesia complications, and even . All questions answered. Patient verbalized understanding. Consent obtained. Discussed plan of care with PCP, Dr. Valencia. Pre-op lab reviewed. GIA run and consistent with history. Rx given for Doxy 100mg BID, Levofloxacin 500mg, and Oxycodone 5mg. Discussed tolerance and limiting pain meds due to kidney function. Operative findings:: Right third and fourth toe gangrene noted. No deep opening. Distal toe tips had necrotic changes to the distal phalanx. No estee purulence or drainage noted. Mild malodor to the distal toe tip. No evidence of deep infection extending up the tendons or extending past the proximal phalanx. Operative note:: On this date and time patient was deemed an appropriate surgical candidate. With informed consent signed, the patient was taken to the operating theater. The patient was positioned supine. MAC anesthesia was induced. No tourniquet used. Pre-op right forefoot toe block given with 20 cc 0.5% marcaine plain. IV Ancef 2 g given today. Right 3-4th digit amputation: The right lower extremity was prepped and drapped in normal sterile fashion. A racquetball incision was mapped out around the PIPJ. Utilizing a 15 blade dissection was carried down sharply to the level of the bone around the middle phalanx which was disarticulated from the proximal phalanx of the 3-4th toes. The distal phalanx bone was soft and crumbly and had a mild malodor to it. The distal third and fourth toes were sent for pathology. Attention was then directed to the proximal phalanx. The skin surrounding was sloughy fragile and nonviable. It was removed in total. Proximal phalanx head had some early cortical erosions noted. Third and fourth proximal phalanx were disarticulated from the metatarsal heads. The third middle and proximal phalanx was sent as bone culture. The fourth proximal phalanx was sent as bone pathology. The metatarsal heads were hard and intact, with no obvious discoloration or cortical erosions noted. Next bacitracin irrigation was used to flush the wound. The wound was reexplored and no further signs of infection noted. Bleeding controlled. Minimal vessels ligated with electrocautery as there was minimal blood loss. 2-0 Vicryl and 3-0 Prolene was used to close skin in an interrupted simple suture fashion. 10cc 0.5% marcaine plain given at end of case. The wounds were cleansed. Betadine soaked
[2021-03-27 08:23] VITALS: BP 114/88; PULSE 75; RESP 18; TEMP 37.2; O2SAT 97
--- NOTE | 2021-03-27 08:30 | XR_ITS ---
PROCEDURE: XR FOOT RT MIN 3V CLINICAL INDICATION: Post op amp COMPARISON: CR XR FOOT LT MIN 3V from 08/22/2019 CR XR FOOT LT MIN 3V from 08/23/2019 CR XR FOOT WT BEARING LT 3V from 09/26/2019 CR XR FOOT RT MIN 3V from 03/11/2021 FINDINGS: There is overlying bandage artifact. There has been interval amputation the 3rd and 4th toes at the metatarsophalangeal junction. There is mild hallux valgus with osteoarthritic changes of the midfoot and talonavicular joint with prominent calcaneal spur noted. Hypertrophic changes involve the base of the 1st metatarsal. Other findings:None. IMPRESSION: Status post 3rd and 4th metatarsophalangeal joint amputation Dictated by: Loy Li MD 03/27/2021 11:10 Loy Li MD in [place] 03/27/2021 11:10
[2021-03-27 08:38] VITALS: BP 144/75; PULSE 68; RESP 20; O2SAT 97
[2021-03-27 08:53] VITALS: BP 149/71; PULSE 68; RESP 18; O2SAT 97
[2021-03-27 09:08] VITALS: BP 141/73; PULSE 68; RESP 18; O2SAT 97
== END 2021-03-27 09:34 | disposition home or self-care (01) ==
PROVIDERS: PCP Family Medicine; Visit Provider Podiatrist
DX: E11.52 Type 2 diabetes mellitus with diabetic peripheral angiopathy with gangrene (principal); I70.268 Atherosclerosis of native arteries of extremities with gangrene, other extremity; L98.491 Non-pressure chronic ulcer of skin of other sites limited to breakdown of skin; M19.071 Primary osteoarthritis, right ankle and foot; Z79.84 Long term (current) use of oral hypoglycemic drugs; Z79.02 Long term (current) use of antithrombotics/antiplatelets; Z88.5 Allergy status to narcotic agent; I77.1 Stricture of artery; E11.69 Type 2 diabetes mellitus with other specified complication; M86.171 Other acute osteomyelitis, right ankle and foot; B95.61 Methicillin susceptible Staphylococcus aureus infection as the cause of diseases classified elsewhere
CPT/HCPCS: 28825 ×2; 73630; 82962; 87070; 87077; 87186; 87205; 88305; 88307; 88311; 96374

== ENCOUNTER → 2021-04-13 16:13 | Outpatient (CLI) | payer MEDICARE, SELFPAY ==
[2021-04-13 17:03] LABS: Basophils # 0.1 K/mm3 (0-0.2); Basophils % 0.3 % (0.1-2.0); Eosinophils # 0.6 K/mm3 (0.0-0.4); Eosinophils % 3.8 % (0.1-12.0); Hematocrit 38.6 % (37.0-47.0); Hemoglobin 12.6 g/dL (12.2-16.2); Lymphocytes # 5.4 K/mm3 (0.7-4.5); Lymphocytes % 33.3 % (10-50); Mean Corpuscular HGB Conc 32.8 g/dL (31.8-35.4); Mean Corpuscular Hemoglobin 29.1 pg (27.0-31.2); Mean Corpuscular Volume 88.9 fl (81-99); Monocytes # 1.1 K/mm3 (0.1-1.0); Monocytes % 6.5 % (1.7-9.3); Neutrophils # 9.1 K/mm3 (1.8-7.8); Platelet Count 300 K/mm3 (142-424); Red Blood Count 4.34 M/mm3 (4.20-5.40); Red Cell Distribution Width 13.5 % (11.5-17.5); White Blood Count 16.3 K/mm3 (4.8-10.8)
[2021-04-13 17:16] LABS: MANUAL DIFFERENTIAL MANUAL DIFFERENTIAL (MANUAL DIFF)
[2021-04-13 17:52] LABS: Eosinophils % 1 % (0-3); Lymphocytes % 43 % (10-50); Neutrophils % 56 % (42-76); Platelet Estimate Normal; RBC Morphology Normal; Total Cells Counted 100
[2021-04-13 18:10] LABS: Chloride 98 mmol/L (98-107); Potassium 4.8 mmoL/L (3.5-5.1); Sodium 136 mmol/L (136-145)
[2021-04-13 18:13] LABS: Alanine Aminotransferase 14 U/L (12-78); Albumin Level 3.3 g/dl (3.5-5.0); Albumin/Globulin Ratio 1.3 (1.1-1.8); Alkaline Phosphatase 78 U/L (38-126); Anion Gap 10.8 mEq/L (5-15); Aspartate Amino Transferase 27 U/L (14-36); Bilirubin,Total 0.3 mg/dl (0.2-1.3); Blood Urea Nitrogen 12 mg/dl (7-17); Carbon Dioxide 32 mmol/L (22.0-30.0); Estimated Glomerular Filt Rate 96 ml/min (>60); GFR (African American) 117 ML/MIN (>60); Globulin 2.5 g/dL (1.3-3.2); Total Protein,Serum 5.8 g/dl (6.3-8.2)
[2021-04-13 18:14] LABS: Calcium 8.7 mg/dl (8.4-10.2); Glucose 86 mg/dl (74-100)
[2021-04-13 18:31] LABS: C-Reactive Protein 3.4 mg/L (0-4)
[2021-04-13 18:43] LABS: Erythrocyte Sedimentation Rate 25 mm/hr (0-30)
== END ==
PROVIDERS: Visit Provider Nurse Practitioner
DX: Z98.890 Other specified postprocedural states (principal); E11.65 Type 2 diabetes mellitus with hyperglycemia; Z79.84 Long term (current) use of oral hypoglycemic drugs
CPT/HCPCS: 36415; 80053; 85007; 85025; 85651; 86140

== ENCOUNTER → 2021-05-02 09:33 | Outpatient (CLI) | payer MEDICARE, SELFPAY ==
[2021-05-02 10:30] LABS: Basophils # 0.1 K/mm3 (0-0.2); Basophils % 0.7 % (0.1-2.0); Eosinophils # 0.6 K/mm3 (0.0-0.4); Hematocrit 40.4 % (37.0-47.0); Hemoglobin 12.9 g/dL (12.2-16.2); Lymphocytes # 4.2 K/mm3 (0.7-4.5); Lymphocytes % 42.9 % (10-50); Mean Corpuscular Hemoglobin 28.7 pg (27.0-31.2); Mean Corpuscular Volume 89.7 fl (81-99); Mean Platelet Volume 7.8 fl (7.4-10.4); Monocytes # 0.7 K/mm3 (0.1-1.0); Monocytes % 7.1 % (1.7-9.3); Neutrophils # 4.2 K/mm3 (1.8-7.8); Neutrophils % 43.4 % (37.0-80.0); Platelet Count 464 K/mm3 (142-424); Red Cell Distribution Width 14.2 % (11.5-17.5); White Blood Count 9.7 K/mm3 (4.8-10.8)
[2021-05-02 11:25] LABS: Alanine Aminotransferase 11 U/L (12-78); Albumin Level 3.8 g/dl (3.5-5.0); Albumin/Globulin Ratio 1.6 (1.1-1.8); Alkaline Phosphatase 63 U/L (38-126); Aspartate Amino Transferase 24 U/L (14-36); Bilirubin,Total 0.4 mg/dl (0.2-1.3); Blood Urea Nitrogen 12 mg/dl (7-17); Carbon Dioxide 32 mmol/L (22.0-30.0); Chloride 103 mmol/L (98-107); Estimated Glomerular Filt Rate 96 ml/min (>60); GFR (African American) 116 ML/MIN (>60); Globulin 2.4 g/dL (1.3-3.2); Glucose 101 mg/dl (74-100); Sodium 141 mmol/L (136-145); Total Protein,Serum 6.2 g/dl (6.3-8.2)
[2021-05-02 11:31] LABS: C-Reactive Protein 1.5 mg/L (0-4)
[2021-05-02 11:45] LABS: Erythrocyte Sedimentation Rate 47 mm/hr (0-30)
== END ==
PROVIDERS: Visit Provider Podiatrist
DX: T81.31XA Disruption of external operation (surgical) wound, not elsewhere classified, initial encounter (principal); Z98.890 Other specified postprocedural states
CPT/HCPCS: 36415; 80053; 85025; 85651; 86140

== ENCOUNTER 2021-05-06 07:57 | Outpatient (RCR) | payer MEDICARE, SELFPAY ==
--- NOTE | 2021-05-06 08:46 | HMH.PTOPWND ---
Rehab Outpt Wound Evaluation Rehab OP Wound Evaluation Start: 05/06/21 08:04 Freq: Status: Active Protocol: Document 05/06/21 08:35 GINI (Rec: 05/06/21 08:46 PHORHANS [id number]) Electronically Signed By Venkata Mcmullen, PT 05/06/21 08:35 Subjective/History History History Pt is 81 yowf who presents with open wound on R foot after R toes 3-4 amputated on 03/27/21. She reports no c/o pain or discomfort at this time. Pt reports dressing is changed daily at home with [employer]. Dressing presents this date quite dry and adhered to the wound bed. Pt in post-op shoe thid ate, but no AD. She states, I didn't bring my walker today even though I know I should have. Pt instructed in importance of protected WBing for wound healing, especially due to her multiple co-morbidities. PMH: CAD, a-fib, CHF, COPD, DM-ii, HL, HTN, renal insufficiency, PAD with multiple stents to B LE. pacemaker. Subjective Subjective Pt with no c/o pain or tenderness to palpation in the gerardo-wound area. Wound Eval Wound Right Distal Foot Wound Type Incision Is This a Chronic Wound Yes Wound Length (cm) 2.2 Wound Width (cm) 1.2 Wound Depth (cm) 0.2 Wound Bed Appearance Yellow,Slough Percentage of Slough (%) 100 Wound Margins Description Well Defined Surrounding Tissue Appearance [place] Drainage Description Serous Drainage Amount Small Drainage Odor No Odor Wound Topical Solution/Irrigant Saline Irrigant Primary Dressing honey Comment Thera-honey gel Wound Secondary Dressing Type Composite,Gauze Pad,Gauze Roll /Wrap Comment optifoam thin Wound Debridement Method Sharps,Forceps,Gauze Wound Debridement Amount of Tissue Minimal Removed Wound Debridement Result Yellow Sloughing Remains Dressing Change Patient Tolerance Tolerated Well Wound Problems/Impairments Impairments Problems/Impairmments Impaired Walking,Impaired
== END 2021-05-06 07:59 | disposition home or self-care (01) ==
LOC: PT 07:57
PROVIDERS: PCP Family Medicine; Visit Provider Podiatrist
DX: T81.31XA Disruption of external operation (surgical) wound, not elsewhere classified, initial encounter (principal); M86.9 Osteomyelitis, unspecified; I96 Gangrene, not elsewhere classified
CPT/HCPCS: 97162

== ENCOUNTER → 2021-06-10 12:21 | Outpatient (CLI) | payer MEDICARE, SELFPAY ==
--- NOTE | 2021-06-10 12:29 | XR_ITS ---
PROCEDURE: XR FOOT WT BEARING RT 3V CLINICAL INDICATION: evaluate for bone infection Pain swelling and drainage COMPARISON: CR XR FOOT LT MIN 3V from 08/23/2019 CR XR FOOT WT BEARING LT 3V from 09/26/2019 CR XR FOOT RT MIN 3V from 03/11/2021 CR XR FOOT RT MIN 3V from 03/27/2021 FINDINGS: Status post amputation at the MTP joint of the 4th and 3rd toes the. Bandage artifact is present at the amputation site. There is diffuse osteopenia of the heads of the 3rd 4th and 5th metatarsals with flexion deformity noted at the 5th toe. No definite bony erosive change however apparent. Charcot joint is present in the midfoot with pes planus and mild inferior displacement of the 1st cuneiform with some fragmentation at the dorsal aspect of the 1st tarsal metatarsal junction. IMPRESSION: Status post amputation at the 3rd and 4th MTP joints. No definite bony erosive changes. Charcot joint in the midfoot Dictated by: Loy Li MD 06/10/2021 14:58 Loy Li MD in [place] 06/10/2021 14:58
[2021-06-10 13:27] LABS: Basophils # 0.1 K/mm3 (0-0.2); Basophils % 1.1 % (0.1-2.0); Eosinophils # 0.6 K/mm3 (0.0-0.4); Eosinophils % 5.8 % (0.1-12.0); Hematocrit 41.5 % (37.0-47.0); Hemoglobin 13.2 g/dL (12.2-16.2); Lymphocytes # 3.9 K/mm3 (0.7-4.5); Mean Corpuscular HGB Conc 31.7 g/dL (31.8-35.4); Mean Corpuscular Hemoglobin 29.5 pg (27.0-31.2); Mean Platelet Volume 7.9 fl (7.4-10.4); Monocytes # 0.6 K/mm3 (0.1-1.0); Monocytes % 5.6 % (1.7-9.3); Neutrophils # 5.4 K/mm3 (1.8-7.8); Neutrophils % 50.5 % (37.0-80.0); Platelet Count 436 K/mm3 (142-424); Red Blood Count 4.46 M/mm3 (4.20-5.40); Red Cell Distribution Width 13.9 % (11.5-17.5); White Blood Count 10.6 K/mm3 (4.8-10.8)
[2021-06-10 14:30] LABS: Alanine Aminotransferase 11 U/L (12-78); Albumin Level 4.2 g/dl (3.5-5.0); Albumin/Globulin Ratio 1.7 (1.1-1.8); Alkaline Phosphatase 58 U/L (38-126); Anion Gap 14.1 mEq/L (5-15); Aspartate Amino Transferase 23 U/L (14-36); Bilirubin,Total 0.3 mg/dl (0.2-1.3); Blood Urea Nitrogen 18 mg/dl (7-17); Calcium 9.5 mg/dl (8.4-10.2); Carbon Dioxide 30 mmol/L (22.0-30.0); Chloride 100 mmol/L (98-107); Estimated Glomerular Filt Rate 69 ml/min (>60); GFR (African American) 84 ML/MIN (>60); Globulin 2.5 g/dL (1.3-3.2); Glucose 98 mg/dl (74-100); Potassium 5.1 mmoL/L (3.5-5.1); Sodium 139 mmol/L (136-145); Total Protein,Serum 6.7 g/dl (6.3-8.2)
[2021-06-10 14:35] LABS: C-Reactive Protein 2.6 mg/L (0-4)
[2021-06-10 19:34] LABS: Erythrocyte Sedimentation Rate 22 mm/hr (0-30)
== END ==
PROVIDERS: Nurse Practitioner; PCP Family Medicine; Visit Provider Podiatrist
DX: Z98.890 Other specified postprocedural states (principal); J18.9 Pneumonia, unspecified organism
CPT/HCPCS: 36415; 73630; 80053; 85025; 85651; 86140

== ENCOUNTER → 2021-12-15 12:25 | Outpatient (CLI) | payer MEDICARE, SELFPAY ==
--- NOTE | 2021-12-15 12:48 | XR_ITS ---
FINAL REPORT CLINICAL HISTORY: COUGH COMPARISON: March 13, 2021 FINDINGS: Two views of the chest were obtained. A left subclavian pacemaker is present. The heart size and pulmonary vascularity are within normal limits. The mediastinum is normal. There is a calcified granuloma in the left lung base. No acute pulmonary abnormality is identified. There is no pneumothorax. The bony thorax is intact. IMPRESSION: No acute pulmonary abnormality. Reviewed, Interpreted and Dictated by Jesús Garner III, MD Transcribed by Malorie Jensen Authenticated by Jesús Garner III, MD on 12/15/2021 03:05:16 PM [facility]
--- NOTE | 2021-12-15 12:48 | XR_ITS ---
FINAL REPORT CLINICAL HISTORY: RT FOOT PAIN-- toes removed last yr COMPARISON: June 10, 2021 FINDINGS: RIGHT FOOT Three views were obtained. There are postoperative changes from amputation of the 3rd and 4th digits at the MTP joints. There are moderate to severe degenerative changes in the midfoot. A plantar calcaneal spur is noted. There is soft tissue calcification adjacent to the medial cuneiform. IMPRESSION: Postoperative and degenerative changes as described. Reviewed, Interpreted and Dictated by Jesús Garner III, MD Transcribed by Malorie Jensen Authenticated by Jesús Garner III, MD on 12/15/2021 03:05:06 PM [facility]
[2021-12-15 12:57] LABS: Basophils # 0.1 K/mm3 (0-0.2); Basophils % 0.8 % (0.1-2.0); Eosinophils # 1.1 K/mm3 (0.0-0.4); Eosinophils % 8.8 % (0.1-12.0); Hematocrit 45.4 % (37.0-47.0); Hemoglobin 14.4 g/dL (12.2-16.2); Lymphocytes # 3.8 K/mm3 (0.7-4.5); Lymphocytes % 30.3 % (10-50); Mean Corpuscular HGB Conc 31.8 g/dL (31.8-35.4); Mean Corpuscular Hemoglobin 29.9 pg (27.0-31.2); Mean Platelet Volume 8.3 fl (7.4-10.4); Monocytes # 0.7 K/mm3 (0.1-1.0); Monocytes % 5.6 % (1.7-9.3); Neutrophils # 6.9 K/mm3 (1.8-7.8); Neutrophils % 54.6 % (37.0-80.0); Platelet Count 361 K/mm3 (142-424); Red Blood Count 4.83 M/mm3 (4.20-5.40); Red Cell Distribution Width 13.4 % (11.5-17.5); White Blood Count 12.5 K/mm3 (4.8-10.8)
[2021-12-15 13:07] LABS: Hemoglobin A1C 6.2 % (4.0-6.0)
[2021-12-15 13:24] LABS: Alanine Aminotransferase 16 U/L (12-78); Albumin Level 4.3 g/dl (3.5-5.0); Albumin/Globulin Ratio 1.7 (1.1-1.8); Alkaline Phosphatase 80 U/L (38-126); Aspartate Amino Transferase 26 U/L (14-36); Bilirubin,Total 0.4 mg/dl (0.2-1.3); Blood Urea Nitrogen 26 mg/dl (7-17); Calcium 9.4 mg/dl (8.4-10.2); Carbon Dioxide 33 mmol/L (22.0-30.0); Chloride 103 mmol/L (98-107); Chol/HDL Ratio 2.3 (1-3.5); Cholesterol 147 mg/dl (140-200); Estimated Glomerular Filt Rate 69 ml/min (>60); GFR (African American) 84 ML/MIN (>60); Globulin 2.5 g/dL (1.3-3.2); Glucose 122 mg/dl (74-100); HDL Cholesterol 63 mg/dl (40-60); Phosphorous 4.4 mg/dl (2.5-4.5); Sodium 141 mmol/L (136-145); Total Protein,Serum 6.8 g/dl (6.3-8.2); Triglycerides 81 mg/dl (30-150); VLDL Cholesterol 16 mg/dL (0-40)
[2021-12-15 13:26] LABS: Erythrocyte Sedimentation Rate 25 mm/hr (0-30)
[2021-12-15 13:40] LABS: C-Reactive Protein 3.5 mg/L (0-4); Direct LDL Cholesterol 73.46 mg/dL (100-129)
[2021-12-15 14:00] LABS: Thyroid Stimulating Hormone 1.92 uIU/mL (0.465-4.68)
== END ==
LOC: RAD 12:27
PROVIDERS: PCP Family Medicine; Visit Provider Family Medicine
DX: R05.9 Cough, unspecified (principal); M79.671 Pain in right foot; S91.104A Unspecified open wound of right lesser toe(s) without damage to nail, initial encounter; N28.9 Disorder of kidney and ureter, unspecified; E11.22 Type 2 diabetes mellitus with diabetic chronic kidney disease; Z79.84 Long term (current) use of oral hypoglycemic drugs
CPT/HCPCS: 36415; 71046; 73630; 80053; 80061; 83036; 84100; 84443; 85025; 85651; 86140; 87070; 87077; 87186; 87205

== ENCOUNTER → 2021-12-15 16:00 | Outpatient (CLI) | payer MEDICARE, SELFPAY | PROVIDERS: Visit Provider Podiatrist | DX: Z51.89 Encounter for other specified aftercare (principal) | CPT/HCPCS: 87070; 87205 ==

== ENCOUNTER → 2021-12-31 09:00 | Outpatient (CLI) | payer MEDICARE, SELFPAY ==
--- NOTE | 2021-12-31 09:02 | US_ITS ---
FINAL REPORT CLINICAL HISTORY: gangrene R foot, PAD,WOUND RT 5TH DIGIT, PRIOR AMPUATION OF 3-4 RT DIGIT,HTN,HLD,DM,CLAUDICATION AND REST PAIN BILATERAL,PRIOR STENTING OF THE STEFANI LE'S FINDINGS: ANKLE-BRACHIAL PRESSURE INDICES Pressure indices are as follows: RIGHT LOWER EXTREMITY: Ankle-brachial pressure index: 0.41 LEFT LOWER EXTREMITY: Ankle-brachial pressure index: 0.69 IMPRESSION: Moderate obstructive peripheral vascular disease of the lower extremities Reviewed, Interpreted and Dictated by Jesús Garner III, MD Transcribed by Malorie Jensen Authenticated by Jesús Garner III, MD on 12/31/2021 11:16:12 AM [facility]
[2021-12-31 10:19] LABS: Basophils # 0.1 K/mm3 (0-0.2); Basophils % 0.9 % (0.1-2.0); Eosinophils # 0.7 K/mm3 (0.0-0.4); Eosinophils % 7.2 % (0.1-12.0); Hematocrit 43.8 % (37.0-47.0); Hemoglobin 14.4 g/dL (12.2-16.2); Lymphocytes # 2.9 K/mm3 (0.7-4.5); Lymphocytes % 28.1 % (10-50); Mean Corpuscular HGB Conc 32.8 g/dL (31.8-35.4); Mean Corpuscular Hemoglobin 30.3 pg (27.0-31.2); Mean Corpuscular Volume 92.6 fl (81-99); Mean Platelet Volume 8.2 fl (7.4-10.4); Monocytes # 0.7 K/mm3 (0.1-1.0); Monocytes % 6.7 % (1.7-9.3); Neutrophils # 5.9 K/mm3 (1.8-7.8); Neutrophils % 57.2 % (37.0-80.0); Platelet Count 355 K/mm3 (142-424); Red Blood Count 4.73 M/mm3 (4.20-5.40); Red Cell Distribution Width 13.3 % (11.5-17.5); White Blood Count 10.3 K/mm3 (4.8-10.8)
[2021-12-31 10:54] LABS: Erythrocyte Sedimentation Rate 26 mm/hr (0-30)
[2021-12-31 11:39] LABS: Alanine Aminotransferase 12 U/L (12-78); Albumin/Globulin Ratio 1.7 (1.1-1.8); Alkaline Phosphatase 66 U/L (38-126); Anion Gap 8.9 mEq/L (5-15); Aspartate Amino Transferase 25 U/L (14-36); Bilirubin,Total 0.4 mg/dl (0.2-1.3); Blood Urea Nitrogen 26 mg/dl (7-17); Calcium 9.3 mg/dl (8.4-10.2); Carbon Dioxide 34 mmol/L (22.0-30.0); Chloride 103 mmol/L (98-107); Estimated Glomerular Filt Rate 60 ml/min (>60); GFR (African American) 73 ML/MIN (>60); Globulin 2.4 g/dL (1.3-3.2); Glucose 121 mg/dl (74-100); Potassium 4.9 mmoL/L (3.5-5.1); Sodium 141 mmol/L (136-145); Total Protein,Serum 6.4 g/dl (6.3-8.2)
[2021-12-31 11:44] LABS: C-Reactive Protein 6.3 mg/L (0-4)
[2021-12-31 13:09] LABS: Hemoglobin A1C 6.4 % (4.0-6.0)
== END ==
LOC: LAB 09:02
PROVIDERS: PCP Family Medicine; Visit Provider Podiatrist
DX: I73.9 Peripheral vascular disease, unspecified (principal); E11.628 Type 2 diabetes mellitus with other skin complications; L08.9 Local infection of the skin and subcutaneous tissue, unspecified; Z79.84 Long term (current) use of oral hypoglycemic drugs
CPT/HCPCS: 36415; 80053; 83036; 85025; 85651; 86140; 93923

== ENCOUNTER → 2022-01-05 15:15 | Outpatient (CLI) | payer MEDICARE, SELFPAY | PROVIDERS: PCP Family Medicine; Visit Provider Nurse Practitioner Family | DX: I48.0 Paroxysmal atrial fibrillation; R06.09 Other forms of dyspnea; R94.31 Abnormal electrocardiogram [ECG] [EKG]; Z01.812 Encounter for preprocedural laboratory examination; Z11.52 Encounter for screening for COVID-19 | CPT/HCPCS: C9803; U0003; U0005 ==

== ENCOUNTER 2022-01-07 08:22 | Day surgery (SDC) | payer MEDICARE, SELFPAY ==
[2022-01-07] VITALS (32 sets, daily range): BP systolic 101–199; BP diastolic 31–88; PULSE 57–90; RESP 16–18; TEMP 36.7; O2SAT 90–100; BMI 24.6
--- NOTE | 2022-01-07 07:06 | IR_ITS ---
APPROVED REPORT Patient Location: Outpatient PROCEDURES Left femoral arterial access Catheter placement in the right common iliac artery Right common iliac artery antegrade angiogram with unilateral runoff to the right foot Drug-coated balloon angioplasty of the right popliteal artery Drug-coated balloon angioplasty of the right superficial femoral artery Drug-coated balloon angioplasty to the right common femoral artery Drug-coated balloon angioplasty to the right external iliac artery Bare-metal stent deployment to the right common iliac artery Bare-metal stent deployment to the left common iliac artery INDICATION Tiffanie claudication class V and , Peripheral artery disease, Right toe gangrene with limb threatening ischemia Informed consent was obtained prior to the procedure. COMPLICATIONS None Estimated Blood Loss: Less than 10 mls TECHNIQUE 1% lidocaine used to anesthetize the left femoral groin. The left femoral artery was accessed via the Seldinger technique. Using fluoroscopic guidance a rim catheter was placed in the right common iliac artery where antegrade angiography with unilateral runoff to the right foot was performed. Following this an advantage wire was advanced down to the right popliteal artery under fluoroscopic guidance. The 5 Thai sheath was exchanged for a long destination 6 Thai sheath. Therapeutic heparin was administered giving a therapeutic ACT. 5 mm x 200 mm drug-coated balloon was deployed in the superficial femoral artery at 10 codey for 3 minutes. Reducing the stenosis. An additional 5 mm x 150 mm drug-coated balloon was then deployed in the right popliteal artery extending back into the right superficial femoral artery and deployed at 10 codey for 3 minutes. An additional 6 mm x 100 mm drug-coated balloon was then placed in the right common femoral artery extending back to the right external iliac artery and deployed at 10 codey for 3 minutes. Following this the right common iliac artery was stenosed therefore an attempt was made to deliver an 8 mm x 57 mm stent. The stent could not easily make the aorta iliac bend and while pulling back the stent into the sheath the sheath caught the inner lip of the stent and made the stent unable to be retrieved back into the catheter sheath. Because of this the stent was pulled back into the left common iliac artery and deployed at 12 codey to keep the stent from becoming dislodged as it would not traverse the right common iliac artery stenosis. With the stent being deployed in the left common iliac artery the sheath was advanced into the right external iliac artery and an additional 8 mm x 57 mm balloon mounted stent was then deployed in the right common iliac artery. The stent was deployed at 12 codey. After achieving excellent angiograph results the apparatus was removed the sheath was sewn in place patient transferred the postop already in stable addition for postoperative care and sheath removal ANGIOGRAPHIC RESULTS Right common iliac artery has a proximal eccentric 30% stenosis. The right internal iliac artery is patent. The right external iliac artery has a stent which has diffuse 60 and 70% in-stent restenosis. The right common femoral artery also has a stent throughout its course which has 50 to 60% stenosis. The right profunda femoris artery is patent but has proximal 60 and 70% stenoses. The right superficial femoral artery is open but severely stenosed with 90% stenoses throughout the proximal mid segment. The right popliteal artery then has moderate atheromatous plaque but is patent into the PT trunk. PT trunk then gives rise to the right anterior tibialis artery which does supply the right foot. The peroneal arter
--- NOTE | 2022-01-07 12:33 | HMH.ANESCL ---
[facility] Anesthesia Checklist - Structural Data Admitted From: Home Planned Operative Procedure/s: rle runoff Consent for Planned Operative Procedure(s) Verified: Yes - Additional verifications Anesthesia Reactions: No Hx Blood Transfusions: No Blood Transfusion Reaction: No - Airway Assessment C-Spine Mobility Assessed: Yes TMJ Mobility Assessed: Yes Dentition: Poor Dentition - Neurological Assessment Level of Consciousness: Awake, Alert, Appropriate - Anesthesia Plan Anesthesia Risk discussed: Yes Anesthesia Plan: Verified ASA Class: IV Anesthesia Type: MAC [facility] History Medical History: Reports:: Arrhythmia, Asthma, Atherosclerotic Heart Disease, Atrial Fibrillation, Congestive Heart Failure, Chronic Obstructive Pulmonary Disease (COPD), Coronary Artery Disease, Depression, Diabetes Mellitus Type 2, Heart Murmur, Hyperlipidemia, Hypertension, Internal Pacemaker, Peripheral Artery Disease, Renal Insufficiency Denies:: Cancer, Diabetes Mellitus Type 1, MRSA, Seizures *Have you ever received a pneumonia vaccine?: Yes *Have you received a flu vaccine this season?: Yes Other Medical History: Reports: Anemia, Arthritis, Cataracts, Other. Denies: Blood Transfusion Reaction Anesthesia experience/problems:: none Laterality Cases: Bilateral: Tonsillectomy Other Surgeries: Yes: Angiogram, Angioplasty, Cardiac Catheterization, Coronary Stent, Pacemaker, Sinus Surgery, Tubal Ligation, Other (PAD with multiple stents to bilateral legs) Amputation: Yes Fractures: No - *Social History Last grade of school completed: High school graduate Smoking Status: Never smoker Alcohol Intake: never Alcohol Intake Frequency:: other Substance Use Type: denies use *Occupational Status:: retired Housing: house Household Members: none *Travel in the last 8 weeks: None - Psychiatric History Pschychiatric History:: Reports:: Depression Family Hx:: Anemia, Coronary Artery Disease, Diabetes, Heart Attack
--- NOTE | 2022-01-07 13:48 | HMH.PHACLD ---
Hattie Zamora has received discharge medication counseling on the following medications: PATIENT IS CURRENTLY TAKING CLOPIDOGREL 75 MG DAILY, ASPIRIN 81 MG DAILY, AND PRAVASTATIN 40 MG HS. PATIENT RECEIVED PERIPHERAL STENTING. PATIENT HOLDING METFORMIN FOR 48 HOURS.
[2022-01-07 15:11] LABS: CATHL Activated Clotting Time > 400 SEC (74-125)
[2022-01-07 15:12] LABS: CATHL Activated Clotting Time 227 SEC (74-125)
[2022-01-07 15:13] LABS: CATHL Activated Clotting Time 156 SEC (74-125)
== END 2022-01-07 17:38 | disposition home or self-care (01) ==
LOC: CATHLAB 08:24
PROVIDERS: PCP Family Medicine; Visit Provider Internal Medicine
DX: L97.512 Non-pressure chronic ulcer of other part of right foot with fat layer exposed (principal); I70.235 Atherosclerosis of native arteries of right leg with ulceration of other part of foot; I70.261 Atherosclerosis of native arteries of extremities with gangrene, right leg; E11.51 Type 2 diabetes mellitus with diabetic peripheral angiopathy without gangrene; I70.222 Atherosclerosis of native arteries of extremities with rest pain, left leg; I25.10 Atherosclerotic heart disease of native coronary artery without angina pectoris; E11.9 Type 2 diabetes mellitus without complications; E78.2 Mixed hyperlipidemia; I10 Essential (primary) hypertension; I27.20 Pulmonary hypertension, unspecified; I34.0 Nonrheumatic mitral (valve) insufficiency; I48.0 Paroxysmal atrial fibrillation; J44.9 Chronic obstructive pulmonary disease, unspecified; I77.1 Stricture of artery; Z95.820 Peripheral vascular angioplasty status with implants and grafts; T82.856A Stenosis of peripheral vascular stent, initial encounter; Y83.1 Surgical operation with implant of artificial internal device as the cause of abnormal reaction of the patient, or of later complication, without mention of misadventure at the time of the procedure; Z79.01 Long term (current) use of anticoagulants; R94.31 Abnormal electrocardiogram [ECG] [EKG]; Z79.84 Long term (current) use of oral hypoglycemic drugs; Z79.899 Other long term (current) drug therapy
CPT/HCPCS: 37221; 37224; 85347; C1725; C1766; C1769; C1876; C1894; C2623; J1644; J2720; Q9966

== ENCOUNTER → 2023-06-10 13:18 | Outpatient (CLI) | payer MEDICARE, SELFPAY ==
--- NOTE | 2023-06-10 13:24 | CA_ITS ---
FINAL REPORT TECHNIQUE: Color Doppler, duplex Doppler and vivar scale sonography of the bilateral neck arterial vasculature was performed. Velocities were measured in the carotid arteries. Stenosis evaluation based on the validated velocity criteria. CLINICAL HISTORY: piotr-dizziness SHLOMO=20-49% LICA=50-69%-2019 FINDINGS: The peak systolic velocity of the right common carotid artery is 49 cm/s. The peak systolic velocity of the right internal carotid artery is 106 cm/s and end diastolic velocity 20 cm/s. The ICA/CCA ratio is 2.5. A moderate amount of plaque is present. The right external carotid artery is patent. The right vertebral artery is patent with antegrade flow. The peak systolic velocity of the left common carotid artery is 94 cm/s. The peak systolic velocity of the left internal carotid artery is 138 cm/s and end diastolic velocity 33 cm/s. The ICA/CCA ratio is 2.0. A moderate amount of plaque is present. The left external carotid artery is patent.The left vertebral artery is patent with antegrade flow. IMPRESSION: Less than 50% bilateral carotid stenoses. Bilateral patent vertebral arteries with antegrade flow. If indicated, CTA or MRA could further evaluate. Reviewed, Interpreted and Dictated by Roscoe Farooq MD Transcribed by Yuliana Castillo Authenticated and [facility]
== END ==
PROVIDERS: PCP Family Medicine; Visit Provider Internal Medicine
DX: E78.5 Hyperlipidemia, unspecified (principal); I25.10 Atherosclerotic heart disease of native coronary artery without angina pectoris; I27.20 Pulmonary hypertension, unspecified; I34.0 Nonrheumatic mitral (valve) insufficiency; I48.91 Unspecified atrial fibrillation; I73.9 Peripheral vascular disease, unspecified; R06.00 Dyspnea, unspecified; R42 Dizziness and giddiness; R94.31 Abnormal electrocardiogram [ECG] [EKG]; Z79.01 Long term (current) use of anticoagulants
CPT/HCPCS: 93880

== ENCOUNTER → 2023-06-28 10:51 | Outpatient (CLI) | payer MEDICARE, SELFPAY ==
--- NOTE | 2023-06-28 10:55 | CA_ITS ---
APPROVED REPORT EXAM: Comprehensive 2D, Doppler, and color-flow Echocardiogram Director Of Food And Beverage Services: Halina Frye RDCS Ht: 4 ft 11 in Wt: 119lbs BSA: 1.48 BP: 168/73 mmHg Indications: Shortness of Breath, Diabetes, Atrial Fibrillation (chronic), CAD, Hyperlipidemia, Hypertension/HDD 2D Dimensions LVOT 1.85 cm (M/F) 1.5-2.5 LA Volume 49.40 mL LA Volume Index 33.38 mL/m2 (M/F) 16-34 M-Mode Dimensions RVDd 1.71 cm (0.9-2.6) LA Diam 3.87 cm (1.9-4.0) LVDd 3.95 cm (3.5-5.7) Ao Diam 3.06 cm (2.0-3.7) LVDs 2.74 cm (3.5-5.7) IVSd 0.90 cm (0.6-1.1) PWd 0.87 cm (0.6-1.1) EF (Teich) 58.80% FS 30.60% EDV (Teich) 67.90 mL TAPSE 1.98 (<1.7) ESV (Teich) 28.00 mL LV Diastology E Decel Time 327.00 (160-240 msec) E/A Ratio 0.5 MED E' 4.40 (< 7 cm/sec) E'/MED E' Ratio 12.45 (>14) LAT E' 3.40 (<10 cm/sec) E/LAT E' Ratio 16.12 (>14) Aortic Valve LVOT Max 104.00 (70-110 cm/s) LVOT VTI 22.83 cm AoV Peak Martin. 126.00 (50-130 cm/s) AO Peak GR. 6.40 mmHg AO Mean GR. 3.20 (<5 mmHg) AO VTI 23.87 (18-25 cm) JACLYN (VTI) 2.57 (2.5-4.5 cm2) Mitral Valve MV E Max Martin. 55.00 (40-130 cm/s) MV A Velocity 116.00 (40-130 cm/s) E/A Ratio 0.47 MV Decel. Time 327.00 (160-240 ms) MV PHT 96.00 ms Tricuspid Valve TR P. Velocity 312.00 cm/s RAP Estimate 10.00 mmHg RVSP 48.90 mmHg Left Ventricle The left ventricle is normal size. The left ventricular systolic function is mildly reduced. Proximal septal thickening is present. There is mild global hypokinesis present. Grade II diastolic dysfunction is present. LVEF is 45% Right Ventricle Right ventricle is mildly dilated. The right ventricular systolic function is normal. Atria Left atrium is mildly dilated. Right atrium is mildly dilated. There is no Doppler evidence of interatrial shunt. Aortic Valve The aortic valve is mildly thickened. There is no aortic valvular stenosis. No aortic regurgitation is present. Mitral Valve The mitral valve is normal in structure. No evidence of mitral valve stenosis. Mild mitral regurgitation. Tricuspid Valve The tricuspid valve leaflets are thin and pliable. Moderate tricuspid regurgitation. RVSP is 40-45 mmHg. Pulmonic Valve The pulmonary valve is normal in structure. Trace pulmonic regurgitation. Great Vessels The aortic root is normal in size. The ascending aorta is normal in size. IVC is normal in size and collapses >50% with inspiration. Pericardium There is no pericardial effusion. Other Information Study Quality: Fair Conclusion Mildly reduced LV systolic function. Grade II diastolic dysfunction. Mildly dilated RV. Mild biatrial enlargement. Mild MR Moderate TR Elevated RVSP 40-45 mmHg. Electronically signed by : Jayda Calderon, 06/29/2023 12:12:31
== END ==
LOC: RT 10:51
PROVIDERS: PCP Family Medicine; Visit Provider Internal Medicine
DX: E78.5 Hyperlipidemia, unspecified (principal); I25.10 Atherosclerotic heart disease of native coronary artery without angina pectoris; I27.20 Pulmonary hypertension, unspecified; I34.0 Nonrheumatic mitral (valve) insufficiency; I73.9 Peripheral vascular disease, unspecified; R06.02 Shortness of breath
CPT/HCPCS: 93306

== ENCOUNTER → 2023-07-14 09:30 | Outpatient (CLI) | payer MEDICARE, SELFPAY ==
[2023-07-14 10:05] LABS: Basophils # 0.1 K/mm3 (0-0.2); Basophils % 0.5 % (0.1-2.0); Eosinophils # 1.1 K/mm3 (0.0-0.4); Eosinophils % 9.9 % (0.1-12.0); Hematocrit 46.6 % (37.0-47.0); Hemoglobin 14.7 g/dL (12.2-16.2); Lymphocytes # 2.6 K/mm3 (0.7-4.5); Lymphocytes % 24.5 % (10-50); Mean Corpuscular HGB Conc 31.5 g/dL (31.8-35.4); Mean Corpuscular Hemoglobin 29.8 pg (27.0-31.2); Mean Corpuscular Volume 94.4 fl (81-99); Mean Platelet Volume 8.1 fl (7.4-10.4); Monocytes # 0.6 K/mm3 (0.1-1.0); Monocytes % 5.6 % (1.7-9.3); Neutrophils # 6.3 K/mm3 (1.8-7.8); Neutrophils % 59.4 % (37.0-80.0); Platelet Count 295 K/mm3 (142-424); Red Blood Count 4.93 M/mm3 (4.20-5.40); Red Cell Distribution Width 13.1 % (11.5-17.5); White Blood Count 10.6 K/mm3 (4.8-10.8)
[2023-07-14 11:13] LABS: Alanine Aminotransferase 20 U/L (12-78); Albumin Level 3.9 g/dl (3.5-5.0); Alkaline Phosphatase 73 U/L (38-126); Anion Gap 13.2 mEq/L (5-15); Aspartate Amino Transferase 26 U/L (14-36); Bilirubin,Direct 0.2 mg/dl (0.0-0.4); Bilirubin,Indirect 0.3 mg/dL (0.0-0.9); Bilirubin,Total 0.5 mg/dl (0.2-1.3); Bilirubin,Unconjugated 0.3 mg/dL (0.0-1.1); Blood Urea Nitrogen 16 mg/dl (7-17); Calcium 9.2 mg/dl (8.4-10.2); Carbon Dioxide 26 mmol/L (22.0-30.0); Chloride 105 mmol/L (98-107); Chol/HDL Ratio 3.2 (1-3.5); Cholesterol 158 mg/dl (140-200); Estimated Glomerular Filt Rate 69 ml/min (>60); GFR (African American) 83 ML/MIN (>60); Glucose 143 mg/dl (74-100); HDL Cholesterol 50 mg/dl (40-60); Magnesium 1.7 mg/dl (1.6-2.3); Potassium 4.2 mmoL/L (3.5-5.1); Sodium 140 mmol/L (136-145); Total Protein,Serum 6.5 g/dl (6.3-8.2); Triglycerides 100 mg/dl (30-150); VLDL Cholesterol 20 mg/dL (0-40)
[2023-07-14 11:25] LABS: Direct LDL Cholesterol 88.54 mg/dL (100-129)
[2023-07-14 11:30] LABS: Free T4 (Free Thyroxine) 1.07 ng/dl (0.78-2.19)
[2023-07-14 11:43] LABS: Thyroid Stimulating Hormone 2.89 uIU/mL (0.465-4.68)
== END ==
PROVIDERS: PCP Family Medicine; Visit Provider Internal Medicine
DX: E78.5 Hyperlipidemia, unspecified (principal); I25.10 Atherosclerotic heart disease of native coronary artery without angina pectoris; I27.20 Pulmonary hypertension, unspecified; I34.0 Nonrheumatic mitral (valve) insufficiency; I48.91 Unspecified atrial fibrillation; I51.9 Heart disease, unspecified; I73.9 Peripheral vascular disease, unspecified; R06.00 Dyspnea, unspecified; R94.31 Abnormal electrocardiogram [ECG] [EKG]
CPT/HCPCS: 36415; 80048; 80061; 80076; 83735; 84439; 84443; 85025

== ENCOUNTER 2024-08-27 06:37 | Outpatient (CLI) | payer MEDICARE, SELFPAY ==
--- NOTE | 2024-08-27 | CA_ITS ---
APPROVED REPORT Exam: Pharmacologic Ht: 4 ft 11 in Wt: 111 lbs BSA: 1.44 m2 HR: 86 bpm BP: 149/86 mmHg Rhythm: SR with IVCD Medical History Cardiac Risk Factors: HTN, , Hyperlipidemia Stress Test Details HR Resting HR: 86 bpm Max Heart Rate (APMHR): 137 bpm Target HR (85% APMHR): 116 bpm Recovery HR: 95 bpm BP Resting BP: 149.0/86.0 mmHg Recovery BP: 149.0/74.0 mmHg ECG Resting ECG: SR with IVCD Stress ECG: No significant ST changes Arrhythmia: PACs, PVCs Stress ECG Conclusion During lexiscan pt experinced SOB. PVCs and PACs noted. No significant ST changes. Conclusion: Unremarkable Lexiscan stress test. Myoview images are reported separately. Electronically signed by : Jayda Calderon MD 08/27/2024 13:07:35
--- NOTE | 2024-08-27 06:43 | NM_ITS ---
APPROVED REPORT Exam: Nuclear Stress Test Indication: SOB, CAD, HTN, DM, Family history Patient Location: Outpatient Stress Tech: Delmy BABCOCK Tech:Balbina Marshall, ARRT, RT (R)(N) Ht: 5 ft 2 in Wt: 110 lbs Bra Size: C HR: 82 bpm BP: 149/86 mmHg BSA: 1.48 m2 TID: 1.16 BMI: 20.1 History: SOB, CAD, HTN, DM, Family history Procedure: Patient received 0.4 mg of intravenous Lexiscan, resting heart rate 82 bpm, resting blood pressure 149/86 mmHg, with Lexiscan maximum heart rate achieved was 96 bpm which is % of the maximum predicted heart rate and blood pressure was 155/80 mmHg. With Lexiscan, patient denied any complaint of chest pain. Cardiac Stress and Resting SPECT Images: Cardiac Stress and Resting SPECT images were obtained using technetium 99m Myoview 30.1 mCi stress and 10.64 mCi at rest. Resting and stress imaging in supine and prone positions demonstrate a large sized, severe, partially reversible perfusion defect in the LV apical wall, as well as the inferoseptal LV wall. Gated imaging demonstrates severe reduction global LV systolic function. There is akinesis of the LV apical and the LV septal allen. LVEF is calculated at 29%. Conclusion: Large sized, severe, partially reversible perfusion defect in the LV apical wall, as well as the inferoseptal LV wall. Findings are suggestive of partial reversible ischemia. Gated imaging demonstrates severe reduction global LV systolic function. There is akinesis of the LV apical and the LV septal allen. LVEF is calculated at 29%. Electronically signed by : Jayda Calderon MD 08/27/2024 13:09:41
[2024-08-27] MEDS: ISOTOPE MYOVIEW (PER STUDY) 1 DOSE IV (09:11)
[2024-08-27] MEDS: REGADENOSON 0.4MG/5ML SYRINGE 0.4 MG IV (09:11)
[2024-08-27] MEDS: SODIUM CHLORIDE 0.9% 10ML SYR (RAD ONLY) 10 ML IV ×2 (09:11)
--- NOTE | 2024-08-27 09:14 | CA_ITS ---
APPROVED REPORT EXAM: Comprehensive 2D, Doppler, and color-flow Echocardiogram Program Evaluator: Sania Reyes RVT Ht: 4 ft 8 in Wt: 111lbs BSA: 1.38 BP: 177/93 mmHg Indications: HFrEF,DYSPENA,A-FIB,PHTN,PACER,DD,HLD Echo Enhancing Agent Indication: Endocardial border delineation Agent(s) / Amount(s) Used: Definity 2 cc 2D Dimensions IVSd 1.20 cm F: 0.6-1.0 LA Volume 31.70 mL PWd 1.56 cm F: 0.6 - 1.0 LA Volume Index 22.97 mL/m2 (M/F) 16-34 LVDd 3.57 cm F: 3.9 - 5.3 M-Mode Dimensions RVDd 2.38 cm (0.9-2.6) LA Diam 4.04 cm (1.9-4.0) LVDd 4.95 cm (3.5-5.7) LVDs 4.08 cm (3.5-5.7) IVSd 0.98 cm (0.6-1.1) PWd 0.87 cm (0.6-1.1) EF (Teich) 36.50% FS 17.60% EDV (Teich) 115.50 mL ESV (Teich) 73.40 mL LV Diastology E Decel Time 407 (160-240 msec) E/A Ratio 0.5 Aortic Valve JACLYN Index 1.08 cm2/m2 AoV Peak Martin. 133.0 (50-130 cm/s) AO Peak GR. 7.10 mmHg AO Mean GR. 3.20 (<5 mmHg) AO VTI 24.5 (18-25 cm) JACLYN (VTI) 1.54 (2.5-4.5 cm2) Mitral Valve MV E Max Martin. 63.0 (40-130 cm/s) MV A Velocity 127.0 (40-130 cm/s) E/A Ratio 0.49 MV PHT 119.0 ms Pulmonary Valve PV Peak Velocity 88.0 (50-150 cm/s) Tricuspid Valve TR P. Velocity 340.00 cm/s RAP Estimate 10.00 mmHg RVSP 56.20 mmHg Left Ventricle The left ventricle is normal size. The left ventricular systolic function is severely reduced. There is increased LV wall thickness. There is severe global hypokinesis present. The septal, inferoseptal, and anteroseptal LV allen are nearly akinetic. Diastolic function is indeterminate. No left ventricle thrombus noted on this study. LVEF is 25%. Right Ventricle The right ventricle is moderately dilated. Right ventricle is mildly hypokinetic. Atria Left atrium is mildly dilated. Right atrium is mildly dilated. There is no Doppler evidence of interatrial shunt. Aortic Valve The aortic valve is mildly thickened. There is no aortic valvular stenosis. No aortic regurgitation is present. Mitral Valve The mitral valve leaflets are mildly thickened. No evidence of mitral valve stenosis. Trace mitral regurgitation. Tricuspid Valve The tricuspid valve leaflets are thin and pliable. Trace tricuspid regurgitation. There is insufficient TR jet to estimate RVSP. Pulmonic Valve The pulmonary valve is normal in structure. Trace pulmonic regurgitation. Great Vessels The aortic root is normal in size. The ascending aorta is not well-visualized. IVC is normal in size and collapses >50% with inspiration. Pericardium There is no pericardial effusion. Other Information Study Quality: Fair Conclusion Severely reduced LV systolic function (LVEF 25%). The septal, inferoseptal, and anteroseptal LV allen are nearly akinetic. Mild to moderate RV dilation with mild reduction in RV function. Biatrial dilation. No significant valvular stenosis or regurgitation. Compared to prior study from 06/2023, the LVEF now appears further reduced. Electronically signed by : Jayda Calderon MD 08/30/2024 12:14:33
[2024-08-27] MEDS: DEFINITY US ECHO CONTRAST 2ML INJ 2 MG IV (10:19)
== END 2024-08-27 23:59 | disposition home or self-care (01) ==
LOC: RAD 06:39
PROVIDERS: PCP Family Medicine; Visit Provider Physician Assistant
DX: I25.118 Atherosclerotic heart disease of native coronary artery with other forms of angina pectoris (principal); R06.09 Other forms of dyspnea
CPT/HCPCS: 78452; 93017; 93018; 93306; A9502; J2785; Q9957

== ENCOUNTER 2024-09-25 08:20 | Day surgery (SDC) | payer MEDICARE, SELFPAY ==
[2024-09-25] VITALS (13 sets, daily range): BP systolic 86–196; BP diastolic 48–93; PULSE 41–61; RESP 15–18; TEMP 36.8; O2SAT 95–98; BMI 25.1
--- NOTE | 2024-09-25 07:21 | IR_ITS ---
APPROVED REPORT Patient Location: Outpatient PROCEDURES Left heart catheterization Left ventriculogram Selective coronary angiogram INDICATION Abnormal Myoview, Known coronary artery disease, Worsening angina pectoris Informed consent was obtained prior to the procedure. COMPLICATIONS NONE Estimated Blood Loss: LESS THAN 10 ML TECHNIQUE One percent lidocaine was used to anesthetize the right groin. The right femoral artery was accessed via the Seldinger technique. A 4-Georgian sheath was placed in the right femoral artery. The JL-4 and JR-4 catheter was also used to perform left heart catheterization left ventriculogram and selective coronary angiogram. At the end of the procedure the patient was transferred to the post-op holding area in stable condition for arterial sheath removal. ANGIOGRAPHIC RESULTS The left main artery Has mild ostial eccentric 10% stenosis The left anterior descending artery Is proximally normal and has a stent in the mid segment which is widely patent with mild concentric in-stent restenosis. Distal to the stent is a smooth 30% transitioning stenosis. The remaining LAD is widely patent The circumflex artery Large codominant and widely patent The right coronary artery Is codominant and has a proximal eccentric 30% stenosis The GONZALES ventriculogram reveals Reduced ejection fraction estimated at 30 to 35% The left ventricular end-diastolic pressure 10 mmHg IMPRESSION Coronary disease as described above Reduced ejection fraction Normal LVEDP PLAN 1. Continue with medical management Electronically signed by : Sage Chadwick MD 09/25/2024 14:49:10
[2024-09-25 09:19] LABS: Basophils # 0.1 K/mm3 (0-0.2); Basophils % 0.7 % (0.1-2.0); Eosinophils # 0.9 K/mm3 (0.0-0.4); Eosinophils % 7.9 % (0.1-12.0); Hematocrit 47.8 % (37.0-47.0); Hemoglobin 15.7 g/dL (12.2-16.2); Lymphocytes # 4.1 K/mm3 (0.7-4.5); Lymphocytes % 35.8 % (10-50); Mean Corpuscular HGB Conc 32.8 g/dL (31.8-35.4); Mean Corpuscular Hemoglobin 29.7 pg (27.0-31.2); Mean Corpuscular Volume 90.6 fl (81-99); Mean Platelet Volume 7.4 fl (7.4-10.4); Monocytes # 0.7 K/mm3 (0.1-1.0); Neutrophils # 5.7 K/mm3 (1.8-7.8); Neutrophils % 49.5 % (37.0-80.0); Platelet Count 298 K/mm3 (142-424); Red Blood Count 5.27 M/mm3 (4.20-5.40); Red Cell Distribution Width 13.1 % (11.5-17.5); White Blood Count 11.5 K/mm3 (4.8-10.8)
[2024-09-25 09:23] LABS: Chloride 104 mmol/L (98-107); Potassium 4.5 mmoL/L (3.5-5.1); Sodium 140 mmol/L (136-145)
[2024-09-25 09:26] LABS: Anion Gap 7.5 mEq/L (5-15); Blood Urea Nitrogen 23 mg/dl (7-17); Calcium 9.2 mg/dl (8.4-10.2); Carbon Dioxide 33 mmol/L (22.0-30.0); Creatinine Clearance Estimated 34 mL/min (50-200); Estimated Glomerular Filt Rate 69 ml/min (>60); GFR (African American) 83 ML/MIN (>60); Glucose 141 mg/dl (74-100)
[2024-09-25] MEDS: VERAPAMIL 2.5MG/ML 2ML VIAL 2.5 MG IV (10:01)
[2024-09-25] MEDS: LIDOCAINE 1% 10ML MDV 20 ML IJ (10:01)
[2024-09-25] MEDS: HEPARIN 1,000 UNITS/500ML NS (CATH LAB) 3000 UNIT IV (10:01)
[2024-09-25] MEDS: 0.9 % SODIUM CHLORIDE 500 ML 25 ML IV (10:01)
[2024-09-25] MEDS: HEPARIN 1,000 UNITS/ML 10ML VIAL (CATH LAB) 10000 UNIT IV (10:01)
[2024-09-25] MEDS: NITROGLYCERIN 800MCG/8ML SYR (CATH LAB) 800 MCG IA (10:02)
[2024-09-25] MEDS: MIDAZOLAM HCL 1MG/ML 5ML VIAL 1 MG IV ×2 (10:25→10:35)
[2024-09-25] MEDS: FENTANYL 100MCG/2ML VIAL 50 MCG IV (10:25)
[2024-09-25] MEDS: FENTANYL 100MCG/2ML VIAL 25 MCG IV (10:35)
[2024-09-25] MEDS: IOPAMIDOL-370 (76%);100ML BOTTLE 50 ML IV (15:00)
== END 2024-09-25 13:56 | disposition home or self-care (01) ==
PROVIDERS: PCP Family Medicine; Visit Provider Internal Medicine
DX: I25.118 Atherosclerotic heart disease of native coronary artery with other forms of angina pectoris (principal); R93.1 Abnormal findings on diagnostic imaging of heart and coronary circulation; I11.0 Hypertensive heart disease with heart failure; R94.31 Abnormal electrocardiogram [ECG] [EKG]; I50.22 Chronic systolic (congestive) heart failure; I48.0 Paroxysmal atrial fibrillation; I34.0 Nonrheumatic mitral (valve) insufficiency; Z79.01 Long term (current) use of anticoagulants; I27.20 Pulmonary hypertension, unspecified; E11.9 Type 2 diabetes mellitus without complications; Z79.899 Other long term (current) drug therapy
CPT/HCPCS: 80048; 85025; 93458; 99152; C1725; C1769; J1644; J2250; J3010; Q9967

== ENCOUNTER 2024-10-31 15:19 | Emergency (ER) | payer MEDICARE, SELFPAY ==
[2024-10-31 15:20] VITALS: BP 148/72; PULSE 79; RESP 13; TEMP 37.4; O2SAT 98; BMI 20.1
--- NOTE | 2024-10-31 15:29 | ECG_ITS ---
APPROVED REPORT Exam: Resting ECG HR:77 bpm ECG Measurements Heart Rate 77 AXES DE 159 P 62 QRSd 135 QRS 100 QT 406 T 59 QTc 438 Conclusion SINUS RHYTHM INDETERMINATE AXIS INTRAVENTRICULAR CONDUCTION DELAY [130+ ms QRS DURATION] POSSIBLE ANTERIOR MYOCARDIAL INFARCTION , OF INDETERMINATE AGE [30 ms Q WAVE IN V3/V4, OR R < 0.2 mV IN V4] No STEMI Electronically signed by : SHAYNA TRAN, 11/01/2024 00:06:47
--- NOTE | 2024-10-31 15:40 | PC.NURSE ---
DR TRAN AT BEDSIDE
--- NOTE | 2024-10-31 15:48 | CT_ITS ---
FINAL REPORT TECHNIQUE: Noncontrast exam This study was performed with techniques to keep radiation doses as low as reasonably achievable, (ALARA). Individualized dose reduction techniques using automated exposure control or adjustment of mA and/or kV according to the patient''s size were employed. CLINICAL HISTORY: AMS, new balance issues COMPARISON: none. FINDINGS: Mild atrophy and chronic ischemic white matter changes are noted. No cortical edema is present. There is no mass or hemorrhage. Ventricles are normal. Bone windows show no skull fracture or obvious obstructive lesion. There are postoperative changes in the ethmoid sinuses and nasal turbinates. Advanced lemus sinusitis is most significant involving the bilateral maxillary and right frontal sinuses. IMPRESSION: No acute intracranial abnormality. Advanced sinusitis. Reviewed, Interpreted and Dictated by Yousuf Gamboa MD Transcribed by Angela Resendez Authenticated and [facility]
--- NOTE | 2024-10-31 15:48 | CT_ITS ---
PROCEDURE INFORMATION: Exam: CTA Neck With Contrast Exam date and time: 10/31/2024 4:25 PM Age: 84 years old Clinical indication: Other: AMS, new balance issues TECHNIQUE: Imaging protocol: Computed tomographic angiography of the neck with contrast. Exam focused on the cervical segments of the vasculature. 3D rendering (Not supervised by radiologist): MIP and/or 3D reconstructed images were created by the technologist. Radiation optimization: All CT scans at this facility use at least one of these dose optimization techniques: automated exposure control; mA and/or kV adjustment per patient size (includes targeted exams where dose is matched to clinical indication); or iterative reconstruction. Contrast material: ISOVUE 370; Contrast volume: 80 ml; Contrast route: INTRAVENOUS (IV); COMPARISON: CT ANGIO HEAD 10/31/2024 4:25 PM FINDINGS: Limitations: Patient motion. Right common carotid artery: Calcification involving the right common carotid artery greater distally. Stenosis measures less than 50%. Right internal carotid artery: Calcification of the proximal right internal carotid artery. Origin stenosis measures 60%. Right external carotid artery: No occlusion or stenosis of the origin. Left common carotid artery: Calcification and plaquing involving the left common carotid artery. Stenosis measures less than 50%. Left internal carotid artery: Calcification at the proximal left internal carotid artery. Stenosis measures less than 50%. Left external carotid artery: Moderate stenosis involving the origin of the left external carotid artery. Right vertebral artery: Right vertebral artery is dominant. Calcification involving the right vertebral artery without hemodynamically significant stenosis. Left vertebral artery: No stenosis. No dissection or occlusion. Aorta: Aortic calcification. Thyroid: Heterogeneous thyroid. Soft tissues: Normal. No significant soft tissue swelling. Bones/joints: Degenerative change involving the spine. IMPRESSION: 1. 60% stenosis involving the origin of the right ICA. 2. Moderate stenosis at the origin of the left ECA. 3. Additional findings as above. REFERENCES: NASCET CRITERIA. The degree of stenosis in the cervical segment of the internal carotid artery is based on NASCET criteria. Normal is no stenosis. Mild is less than 50% stenosis. Moderate is 50-69% stenosis. Severe is 70% to 99% stenosis. Total occlusion is no detectable patent lumen.
--- NOTE | 2024-10-31 15:48 | XR_ITS ---
PROCEDURE INFORMATION: Exam: XR Chest Exam date and time: 10/31/2024 4:29 PM Age: 84 years old Clinical indication: Other: AMS TECHNIQUE: Imaging protocol: Radiologic exam of the chest. Views: 1 view. COMPARISON: CT ABDOMEN PELVIS WO CON 10/31/2024 4:23 PM FINDINGS: Tubes, catheters and devices: Left chest wall dual lead pacemaker in place. Lungs: Left retrocardiac consolidation. Left lower lobe calcified granuloma. Clear right lung. Pleural spaces: Normal. No pleural effusion. No pneumothorax. Heart/Mediastinum: No cardiomegaly. Pacer leads terminate in the right atrium and right ventricle. Vasculature: Atherosclerotic thoracic aorta. Bones/joints: Unremarkable. IMPRESSION: Left retrocardiac consolidation could be due to pneumonia.
--- NOTE | 2024-10-31 15:48 | CT_ITS ---
PROCEDURE INFORMATION: Exam: CTA Head With Contrast, Arteriography Exam date and time: 10/31/2024 4:25 PM Age: 84 years old Clinical indication: Other: AMS, new balance issues TECHNIQUE: Imaging protocol: Computed tomographic angiography of the head with contrast. Exam focused on the arteries. 3D rendering (Not supervised by radiologist): MIP and/or 3D reconstructed images were created by the technologist. Radiation optimization: All CT scans at this facility use at least one of these dose optimization techniques: automated exposure control; mA and/or kV adjustment per patient size (includes targeted exams where dose is matched to clinical indication); or iterative reconstruction. Contrast material: ISOVUE 370; Contrast volume: 80 ml; Contrast route: INTRAVENOUS (IV); COMPARISON: CT HEAD/BRAIN WO CON 10/31/2024 4:18 PM FINDINGS: ANTERIOR CIRCULATION: Right internal carotid artery: Calcification involving the right carotid siphon with [id number] stenosis. Right middle cerebral artery: No occlusion or significant stenosis. No aneurysm. Right anterior cerebral artery: No occlusion or significant stenosis. No aneurysm. Left internal carotid artery: Calcification involving the left carotid siphon with [id number] stenosis. Left middle cerebral artery: No occlusion or significant stenosis. No aneurysm. Left anterior cerebral artery: No occlusion or significant stenosis. No aneurysm. POSTERIOR CIRCULATION: Right vertebral artery: Right vertebral artery is dominant. Calcification involving the right vertebral artery without significant stenosis. Left vertebral artery: No occlusion or significant stenosis. No aneurysm. Basilar artery: No occlusion or significant stenosis. No aneurysm. Right posterior cerebral artery: No occlusion or significant stenosis. No aneurysm. Left posterior cerebral artery: No occlusion or significant stenosis. No aneurysm. IMPRESSION: 1. No large vessel occlusion. 2. [id number] bilateral carotid siphon stenosis.
[2024-10-31 15:53] LABS: Microscopic, Urine URINE MICROSCOPIC (MICROSCOPIC)
[2024-10-31 15:54] LABS: Appearance,Urine CLEAR (Clear); Bilirubin,Urine Negative (Negative); Blood, Urine Negative (Negative); Color,Urine YELLOW (Yellow); Glucose,Urine (UA) Negative (Negative); Ketones,Urine Negative (Negative); Leukocyte Esterase,Urine 1+ (Negative); Nitrate,Urine Negative (Negative); Protein,Urine TRACE (Negative); Specific Gravity, Urine 1.025 (1.005-1.030)
[2024-10-31 15:54] LABS: Basophils % 0.2 % (0.1-2.0); Eosinophils # 0.3 K/mm3 (0.0-0.4); Eosinophils % 2.2 % (0.1-12.0); Hematocrit 40.5 % (37.0-47.0); Hemoglobin 13.1 g/dL (12.2-16.2); Lymphocytes # 2.9 K/mm3 (0.7-4.5); Lymphocytes % 20.4 % (10-50); Mean Corpuscular HGB Conc 32.3 g/dL (31.8-35.4); Mean Corpuscular Volume 89.6 fl (81-99); Mean Platelet Volume 9.4 fl (7.4-10.4); Monocytes # 1.4 K/mm3 (0.1-1.0); Monocytes % 9.9 % (1.7-9.3); Neutrophils # 9.6 K/mm3 (1.8-7.8); Platelet Count 339 K/mm3 (142-424); Red Blood Count 4.52 M/mm3 (4.20-5.40); Red Cell Distribution Width 11.9 % (11.5-17.5); White Blood Count 14.3 K/mm3 (4.8-10.8)
[2024-10-31 15:55] LABS: Albumin Level 3.8 g/dl (3.5-5.0); Chloride 96 mmol/L (98-107); Sodium 134 mmol/L (136-145)
[2024-10-31 15:57] LABS: Lactate Venous 1.9 mmol/L (0.4-2.0); VBG Base Excess 5.1 mmol/L (-2.4-2.3); VBG HCO3 30.1 mmol/L (23-30); VBG Oxygen Saturation 66.8 % (50-70); VBG PH 7.39 mmol/L (7.31-7.41); VBG PO2 32.6 mmol/L (28-40); VBG Total CO2 31.7 mmol/L (23-27)
[2024-10-31 15:58] LABS: Alanine Aminotransferase 18 U/L (12-78); Albumin/Globulin Ratio 1.1 (1.1-1.8); Aspartate Amino Transferase 29 U/L (14-36); Blood Urea Nitrogen 20 mg/dl (7-17); Carbon Dioxide 33 mmol/L (22.0-30.0); Creatinine Clearance Estimated 34 mL/min (50-200); Estimated Glomerular Filt Rate 69 ml/min (>60); GFR (African American) 83 ML/MIN (>60); Globulin 3.4 g/dL (1.3-3.2); Total Protein,Serum 7.2 g/dl (6.3-8.2)
[2024-10-31 15:59] LABS: Alkaline Phosphatase 67 U/L (38-126); Bilirubin,Total 0.5 mg/dl (0.2-1.3); Calcium 9.3 mg/dl (8.4-10.2); Glucose 192 mg/dl (74-100); Magnesium 1.8 mg/dl (1.6-2.3); Phosphorous 3.3 mg/dl (2.5-4.5)
--- NOTE | 2024-10-31 15:59 | HMH.EDGENADL ---
Discharge Plan Disposition Patient Disposition: Home, Self-Care Condition: Good Prescriptions Prescriptions: New levofloxacin 750 mg tablet 750 mg PO DAILY 7 Days Qty: 7 0RF No Action ipratropium-albuterol 0.5 mg-3 mg(2.5 mg base)/3 mL solution for nebulization inhalation gabapentin 300 mg capsule 300 mg PO HS carvedilol [Coreg] 6.25 mg tablet 6.25 mg PO BID Qty: 60 2RF Rx Instructions: must administer with a meal/food furosemide 20 mg tablet 20 mg PO DAILY PRN (Reason: edema) Qty: 30 1RF apixaban 2.5 mg tablet 2.5 mg PO BID Qty: 180 3RF clopidogrel 75 mg tablet See Rx Instructions .Route .COMPLEX Qty: 90 3RF Rx Instructions: TAKE ONE TABLET BY MOUTH EVERY DAY FOR BLOOD THINNER Eliquis 2.5 mg tablet 0RF valsartan 40 mg tablet 40 mg PO BID Qty: 60 2RF digoxin 125 mcg (0.125 mg) tablet See Rx Instructions .ROUTE .COMPLEX Qty: 90 1RF Dose Instruction: TAKE 1 TABLET BY MOUTH ONCE DAILY FOR HEART RATE Rx Instructions: TAKE 1 TABLET BY MOUTH ONCE DAILY FOR HEART RATE pravastatin 40 MG tablet 40 mg PO HS budesonide-formoterol 10.2 GM HFA aerosol inhaler 2 puffs IH BID metformin 500 mg tablet extended release 24hr 250 mg PO BID Referrals Follow up/Referrals: Yousuf Valencia MD [Primary Care Provider] - See instructions Activity Restrictions/Add. Instructions Additional Instructions/Restrictions: You were evaluated in the emergency department today. At this time, your workup is concerning for pneumonia and urinary tract infection. Please warp picker your prescription for antibiotic at the pharmacy and take the full course as prescribed. Follow-up closely with your primary care provider to make sure that this pneumonia resolves. Return to the emergency department for new or worsening symptoms. Clinical Impressions Clinical Impression: UTI (urinary tract infection), Pneumonia, Intracranial arteriosclerosis, General weakness Instructions Patient Instructions: DI for Pneumonia -- Adult, DI for Urinary Tract Infection (UTI) Print Language Print Language: [place] Discharge ED Provider: Matilda aDwson General Adult HPI General Chief complaint: Urogenital-Female Stated complaint: confused Time Seen by Provider: 10/31/24 15:26 Mode of Arrival: Ambulatory Source of Information: Patient Limitations: No Limitations Description of Symptoms (Recalled from ER Triage Doc. by RN): pt presents to ED with family. family state pt has had confusion and lethargy ongoing for the past 2 days. pt denies pain or burning with urination. family states that pt does have some baseline confusion, but has been worsening. History of Present Illness HPI narrative: This patient is an 84-year-old female with a history of memory loss, type 2 diabetes, atrial fibrillation status post pacemaker placement, hypertension, hyperlipidemia, and CHF presenting to the emergency department for evaluation with concern for confusion for 2 days. Patient's family states that she has memory issues for which she sees neurology, however for the last 2 days things been worse than normal. They state that she has been not making sense and moving things around. They also state that it seems like she is off balance and is having some more trouble walking than usual. They note excess sleepiness and states she has been sleeping more than usual. Patient states that she is off balance but denies any other concerns or complaints. Family notes she was complaining of bilateral hip pain yesterday, but patient states that today her hips feel fine and she is having no pain anywhere. She denies any vertigo, numbness, tingling, visual disturbance, or unilateral weakness. No fevers, chills, cough, congestion, chest pain, shortness of breath, abdominal pain, nausea, vomiting, changes bowel movements, rashes, swelling, wounds, or other concerns. She does note that she has not been eating or drinking very much. Related Data Home Medications ?Medication ?Instructions ?Recorded ?Confirmed pravastatin 40 mg tablet 40 mg PO HS Cholesterol 03/31/18 09/11/24 budesonide-formoterol HFA 160 2 puffs inhalation BID Breathing 08/16/19 09/11/24 mcg-4.5 mcg/actuation aerosol problems inhaler gabapentin 300 mg capsule 300 mg PO HS nerve pain 01/05/22 09/11/24 metformin 500 mg tablet,extended 250 mg PO BID Diabetes 01/05/22 09/11/24 release 24hr (osmotic) ipratropium 0.5 mg-albuterol 3 mg ml inhalation 05/15/24 09/11/24 (2.5 mg base)/3 mL nebulization soln Previous Rx's ?Medication ?Instructions ?Recorded clopidogrel 75 mg tablet See Rx Instructions .Route 10/26/23 .COMPLEX antiplatelet #90 tabs apixaban 2.5 mg tablet 2.5 mg PO BID Blood thinner #180 09/11/24 tabs carvedilol 6.25 mg tablet (Coreg) 6.25 mg PO BID #60 tabs 09/11/24 furosemide 20 mg tablet 20 mg PO DAILY PRN edema #30 tabs 09/11/24 valsartan 40 mg tablet 40 mg PO BID #60 tabs 09/19/24 digoxin 125 mcg (0.125 mg) tablet See Rx Instructions .Route 10/04/24 .COMPLEX #90 tabs levofloxacin 750 mg tablet 750 mg PO DAILY 7 days #7 tabs 10/31/24 Allergies Allergy/AdvReac Type Severity Reaction Status Date / Time codeine (CODEINE) Allergy Unknown Unknown Verified 09/11/24 13:12 allergy reaction morphine Allergy Unknown Unknown Verified 09/11/24 13:12 allergy reaction doxycycline AdvReac Nausea Verified 09/11/24 13:12 [facility] Disclaimer: The information contained in this section may have been updated after the patient was seen, as this information can be updated by other users. Medical History Memory loss Abnormal findings on diagnostic imaging of heart and coronary circulation Chronic HFrEF (heart failure with reduced ejection fraction) Claudication Social History Smoking Status: Never smoker alcohol intake: never substance use type: denies use current occupational status: retired Travel in the last 8 weeks: Inside the [place] household members: none housing: house current occupation: Works at [employer] current occupational exposures/hazards: No caffeine: Yes Have you lived/traveled outside [place] in past 30 days?: No Contact w/someone who lives/traveled outside [place] past 30 days?: No Exposure to someone with infectious disease in past 14 days?: No Do you have a fever (greater than 100.4 F or 38 C)?: No Have you tested positive for COVID-19: No Exposed to someone with COVID-19 in past 14 days?: No Do you have a sore throat?: No Do you have a cough?: No Do you have any weakness?: No Do you have any diarrhea?: No Are you experiencing any unusual bleeding?: No Do you have any muscle aches/pain?: No Do you have any abdominal pain?: No Are you experiencing loss of taste or smell?: No Other Medical History Have you received the Flu Vaccine for this season: Yes Have you received the Pneumonia Vaccine: No ROS Obtained: Yes All systems reviewed & no additional complaints except as documented Physical Exam General General appearance: alert and in no apparent distress Head Head exam: atraumatic and normocephalic Eye Eye exam: Present normal appearance, PERRL and EOMI ENT ENT exam: Present normal exam, normal oropharynx, mucous membranes moist and normal external ear exam Neck Neck exam: Present normal inspection, full ROM and trachea midline; Absent tenderness Chest Chest inspection: Present normal inspection and symmetric chest wall rise; Absent tenderness Respiratory Respiratory exam: Present normal lung sounds bilaterally; Absent respiratory distress, wheezes, stridor or accessory muscle use Cardiovascular Cardiovascular exam: Present regular rate and normal rhythm Abdominal Exam Abdominal exam: Present soft; Absent distention, tenderness or guarding Extremities Exam Extremities exam: Present normal inspection, full ROM and normal capillary refill; Absent tenderness or edema Back Exam Back exam: Present normal inspection and full ROM; Absent tenderness Neurological Exam Neurological exam: Present alert, oriented X3, CN II-XII intact and other (Neurologically intact, coordination intact); Absent normal gait (walks with assistance) or motor sensory deficit Psychiatric Psychiatric exam: Present normal affect and normal mood Skin Skin exam: Present warm and dry Medical Decision Making Medical Records Medical records reviewed: Yes I reviewed the patient's medical records. Screening: Per USPSTF and CDC recommendations, given the prevalence of disease in our region, it is our hospital?s policy to screen for HIV and viral Hepatitis for all patients aged 18 and over and those with ongoing risk factors. Hermes Inquiry Pt receiving controlled substance: No Vital Signs: 10/31/24 15:20 10/31/24 16:00 10/31/24 16:45 Temperature 99.3 F Temperature Source Oral Pulse Rate 71 74 Pulse Rate [Left Radial] 79 Respiratory Rate 13 Blood Pressure 151/72 H 151/77 H Blood Pressure [Right Arm] 148/72 H Blood Pressure Mean Blood Pressure Mean [Right Arm] 97 02 Sat by Pulse Oximetry 98 98 98 Oxygen Delivery Method Room Air Room Air Room Air 10/31/24 17:01 10/31/24 17:31 10/31/24 17:57 Temperature 98.0 F Temperature Source Pulse Rate 75 75 74 Pulse Rate [Left Radial] Respiratory Rate 16 Blood Pressure 142/96 H 141/73 H 145/67 H Blood Pressure [Right Arm] Blood Pressure Mean 93 Blood Pressure Mean [Right Arm] 02 Sat by Pulse Oximetry 95 95 Oxygen Delivery Method Room Air Room Air Lab Data Lab results reviewed: Yes I reviewed the patient's lab results. Lab Results 10/31/24 15:26: Urine Color Yellow, Urine Appearance Clear, Urine pH 6.0, Ur Specific Baudette 1.025, Urine Protein Trace, Urine Glucose (UA) Negative, Urine Ketones Negative, Urine Blood Negative, Urine Nitrate Negative, Urine Bilirubin Negative, Urine Urobilinogen 1.0, Ur Leukocyte Esterase 1+ A, Urine RBC None, Urine WBC 5-10, Ur Squamous Epith Cells Occasional, Urine Bacteria Trace 10/31/24 15:30: WBC 14.3 H, RBC 4.52, Hgb 13.1, Hct 40.5, MCV 89.6, MCH 29.0, MCHC 32.3, RDW 11.9, Plt Count 339, MPV 9.4, Neut % (Auto) 67.0, Lymph % (Auto) 20.4, Hale % (Auto) 9.9 H, Eos % (Auto) 2.2, Baso % (Auto) 0.2, Neut # (Auto) 9.6 H, Lymph # (Auto) 2.9, Hale # (Auto) 1.4 H, Eos # (Auto) 0.3, Baso # (Auto) 0.0, Sodium 134 L, Potassium 4.0, Chloride 96 L, Carbon Dioxide 33 H, Anion Gap 9.0, BUN 20 H, Creatinine 0.80, Estimated Creat Clear 34, Estimated GFR 69, Est GFR ( Amer) 83, Glucose 192 H, Calcium 9.3, Phosphorus 3.3, Magnesium 1.8, Total Bilirubin 0.5, AST 29, ALT 18, Alkaline Phosphatase 67, Total Protein 7.2, Albumin 3.8, Globulin 3.4 H, Albumin/Globulin Ratio 1.1, TSH 0.79, Thyroxine (T4) 6.9, HCV Ab RUSLAN w/Rflx PCR Qn Negative, HIV Ag/Ab Combo Qual Negative 10/31/24 15:48: VBG pH 7.39, VBG pCO2 51.0, VBG pO2 32.6, VBG HCO3 30.1 H, VBG Total CO2 31.7 H, VBG O2 Saturation 66.8, VBG Base Excess 5.1 H, VBG Lactic Acid 1.9 10/31/24 16:11: SARS-CoV-2 (PCR) Not detected, Influenza A Untype (PCR) Not detected, Influenza Type B (PCR) Not detected 10/31/24 15:30 10/31/24 15:30 Orders (Tests/Meds): ED MEDICATIONS Discontinued Medications Generic Name Dose Route Start Last Admin Trade Name Freq PRN Reason Stop Dose Admin Sodium Chloride 1,000 mls @ 999 mls/hr 10/31/24 16:18 10/31/24 16:42 Sod Chlor 0.9% 1000ml Bag IV 10/31/24 17:18 999 mls/hr .Q1H1M ONE Administration Ceftriaxone Sodium 2 gm/ 100 mls @ 200 mls/hr 10/31/24 16:19 10/31/24 16:42 Sodium Chloride IV 10/31/24 16:48 200 mls/hr ONCE ONE Administration Iopamidol 80 ml 10/31/24 16:34 10/31/24 16:35 Iopamidol-370 (76%);100ml Bottle IV 10/31/24 16:35 80 ml ONCE ONE Administration Sodium Chloride 10 ml 10/31/24 16:34 10/31/24 16:35 Sodium Chloride 0.9% 10ml Syr (Rad Only) IV 10/31/24 16:35 10 ml ONCE ONE Administration Sodium Chloride 50 ml 10/31/24 16:34 10/31/24 16:35 0.9 % Sodium Chloride 50 Ml Vial IV 10/31/24 16:35 50 ml ONCE ONE Administration ORDERS Category Date Time Status CT abdomen pelvis wo con Stat Cat Scan 10/31/24 16:[address] angio head Stat Cat Scan 10/31/24 15:[address] angio neck Stat Cat Scan 10/31/24 15:[address] head/brain wo con Stat Cat Scan 10/31/24 15:48 Completed CXR --portable [XR chest portable] Stat Exams 10/31/24 15:48 Completed Complete Blood Count Auto Diff Stat Lab 10/31/24 15:30 Completed Comprehensive Metabolic Panel Stat Lab 10/31/24 15:30 Completed HIV Combo Stat Lab 10/31/24 15:30 Completed Hepatitis C Ab Qual. W/ RFX Stat Lab 10/31/24 15:30 Completed MAG [Magnesium] Stat Lab 10/31/24 15:30 Completed PHOS [Phosphorous] Stat Lab 10/31/24 15:30 Completed Rapid PCR Covid and Flu A/B Stat Lab 10/31/24 16:11 Completed T4 (Thyroxine) Stat Lab 10/31/24 15:30 Completed TSH [Thyroid Stimulating Hormone] Stat Lab 10/31/24 15:30 Completed UA [Urinalysis and Microscopic] Stat Lab 10/31/24 15:26 Completed Blood Culture Stat Micro 10/31/24 16:40 Received Urine Culture Stat Micro 10/31/24 15:26 Received VBG [Venous Blood Gas] Stat RT 10/31/24 15:48 Completed ECG Data Tracing #1: I reviewed this ECG and interpreted as documented below: Normal sinus rhythm with a ventricular rate of 77 bpm. Left bundle branch block. No acute STEMI. ECG initial impression date: 10/31/24 ECG initial impression time: 15:29 Medical Decision Narrative: In summary, this patient is a 84-year-old female presenting to the Emergency Department for evaluation of 84-year-old female. Differential diagnoses considered include but are not limited to confusion, sleepiness, difficulty walking for 2 days. Ruling out the most morbid conditions drove assessment. It should be noted patient's history includes memory impairment, atrial fibrillation, hypertension, hyperlipidemia COPD, CHF, CAD which may or may not be at goal therapy. This complicates all aspects of care by increasing patient's risk for morbidity. I reviewed patient's past medical records and noted previous cardiology evaluations for A-fib. Patient had pacer placed in September. On exam, the patient is sitting upright in bed in no acute distress. She is neurologically intact without focal neurologic deficit. She walks with assistance from family for support without significant issue. Cardiopulmonary and abdominal exams are benign. Vitals are normal on cardiac telemetry. Workup included broad lab evaluation to evaluate for infectious or metabolic etiologies of worsened confusion in the setting of chronic memory issues as well as CT head, CT angiogram head and neck, CT abdomen pelvis without IV contrast given the bilateral hip pain. I independently interpreted CT scans prior to the radiologist read and noted no obvious large cerebral hemorrhage or space-occupying lesion. Please see their read for final interpretation. They note some intracranial atherosclerosis as well as atherosclerosis in the abdomen, for which the patient is medically managed on an outpatient basis. They do note that she has a large consolidation in her left lower lobe, also seen on chest x-ray. This is concerning for pneumonia. Patient's family does note now that she has been coughing some. Radiologist noted that they could not exclude mass definitively, so recommended follow-up to resolution, which I did notify the family of. Labs were obtained that demonstrated urinalysis that could be concerning for possible infection with leukocyte esterase, white blood cells. She does have a mild leukocytosis of 14. She has mild hyponatremia, elevated CO2, elevated BUN consistent with concentration likely related to poor oral intake, as she states she is not been eating or drinking very much. Patient was given a bolus of IV fluids as well as IV Rocephin. On reassessment, patient had continues to have reassuring exam and is comfortable with normal vitals on cardiac telemetry. I had shared decision-making with the patient's family and offered admission for altered mental status/confusing in the setting of pneumonia and UTI, but they would like to take her home on antibiotics to see how she does. She is given prescription for oral Levaquin. Strict return precautions were given and the patient was discharged with plan for close outpatient follow-up. Critical Care Critical Care Time Critical Care Time: No
[2024-10-31 16:00] VITALS: BP 151/72; PULSE 71; O2SAT 98
[2024-10-31 16:15] LABS: Bacteria,Urine Trace /lpf; Squamous Epithelial Cell,Urine Occasional #/hpf (0-5)
[2024-10-31 16:16] LABS: T4 (Thyroxine) 6.9 ug/dl (5.53-11.0)
--- NOTE | 2024-10-31 16:20 | CT_ITS ---
PROCEDURE INFORMATION: Exam: CT Abdomen And Pelvis Without Contrast Exam date and time: 10/31/2024 4:23 PM Age: 84 years old Clinical indication: Abnormal findings; Abnormal lab test; Other: UTI; Additional info: UTI, flank pain TECHNIQUE: Imaging protocol: Computed tomography of the abdomen and pelvis without contrast. Radiation optimization: All CT scans at this facility use at least one of these dose optimization techniques: automated exposure control; mA and/or kV adjustment per patient size (includes targeted exams where dose is matched to clinical indication); or iterative reconstruction. COMPARISON: CR XR CHEST 2V 12/15/2021 12:51 PM FINDINGS: Tubes, catheters and devices: Pacer leads terminate in the right atrium and right ventricle. Lungs: Posteroinferior left lower lobe consolidation. Left lower lobe calcified granuloma. Coronary arteries: Moderate coronary artery calcification. Diaphragm: Small hiatal hernia. Liver: Calcified granuloma in the right hepatic lobe. No hepatomegaly. Gallbladder and biliary ducts: Normal. No calcified stones. No ductal dilation. Pancreas: Normal. No ductal dilation. Spleen: Calcified granulomas in the spleen. No splenomegaly. Adrenal glands: Normal. No mass. Kidneys and ureters: Normal. No hydronephrosis. Stomach and bowel: Distal colonic diverticulosis. Moderate fecal material throughout the colon. No dilated bowel loops. Appendix: No evidence of appendicitis. Intraperitoneal space: Unremarkable. No free air. No significant fluid collection. Vasculature: Extensive atherosclerotic disease. Stents in the bilateral common, external iliac, and femoral arteries. No aneurysm. Lymph nodes: Calcified left hilar lymph node. No intra-abdominal adenopathy. Urinary bladder: Unremarkable as visualized. Reproductive: Unremarkable as visualized. Bones/joints: Severe lumbar spine degenerative changes. Grade 1 anterolisthesis of L4 over L5 and L5 over S1. Slight retrolisthesis of L1 over L2. Mild degenerative change of the bilateral hips and sacroiliac joints. Osteopenia. Soft tissues: Unremarkable. IMPRESSION: 1. Posteroinferior left lower lobe consolidation is worrisome for pneumonia. Recommend follow-up chest CT after treatment to exclude neoplastic disease. 2. No urinary tract calculi or hydronephrosis. 3. Prior granulomatous disease. 4. Severe atherosclerotic disease.
[2024-10-31 16:23] LABS: Coronavirus 19, PCR Not Detected (NotDetected); Influenza A, PCR Not Detected (NotDetected); Influenza B, PCR Not Detected (NotDetected)
[2024-10-31 16:30] LABS: Thyroid Stimulating Hormone 0.79 uIU/mL (0.465-4.68)
--- NOTE | 2024-10-31 16:32 | PC.NURSE ---
PT RETURNED FROM CT
[2024-10-31] MEDS: IOPAMIDOL-370 (76%);100ML BOTTLE 80 ML IV (16:35)
[2024-10-31] MEDS: SODIUM CHLORIDE 0.9% 10ML SYR (RAD ONLY) 10 ML IV (16:35)
[2024-10-31] MEDS: 0.9 % SODIUM CHLORIDE 50 ML VIAL IV (16:35)
[2024-10-31] MEDS: CEFTRIAXONE SODIUM 2 GM in 0.9 % SODIUM CHLORIDE 100 ML IV (16:42)
[2024-10-31] MEDS: 0.9 % SODIUM CHLORIDE 1000ML 1,000 ML 999 ML IV (16:42)
[2024-10-31 16:45] VITALS: BP 151/77; PULSE 74; O2SAT 98
[2024-10-31 16:52] LABS: HIV Combo NEGATIVE (Negative)
[2024-10-31 17:00] LABS: Hepatitis C Ab Qual. W/ RFX NEGATIVE (Negative)
[2024-10-31 17:01] VITALS: BP 142/96; PULSE 75; O2SAT 95
[2024-10-31 17:31] VITALS: BP 141/73; PULSE 75; O2SAT 95
[2024-10-31 17:57] VITALS: BP 145/67; PULSE 74; RESP 16; TEMP 36.7
--- NOTE | 2024-11-01 17:35 | PC.NURSE ---
POSITIVE BLOOD CULTURE DISCUSSED WITH DR TRAN, DR TRAN LEFT MULTIPLE MESSAGES FOR PT AND FAMILY TO RETURN PHONE CALL
== END 2024-10-31 17:58 | disposition home or self-care (01) ==
PROVIDERS: Emergency Provider Emergency Medicine; PCP Family Medicine
DX: N39.0 Urinary tract infection, site not specified (principal); J18.9 Pneumonia, unspecified organism; I67.2 Cerebral atherosclerosis; R41.82 Altered mental status, unspecified; R53.83 Other fatigue; R26.81 Unsteadiness on feet; M25.551 Pain in right hip; M25.552 Pain in left hip; R53.1 Weakness
CPT/HCPCS: 70450; 70496; 70498; 71045; 74176; 80053; 81001; 82803; 83735; 84100; 84436; 84443; 85025; 86803; 87040; 87077; 87086; 87186; 87389; 87636; 93005; 96361; 96365; 99285; J0696; J7030; Q9967

== ENCOUNTER 2024-11-01 19:20 | Inpatient (IN) | payer MEDICARE, SELFPAY ==
[2024-11-01 19:20] VITALS: BP 121/58; PULSE 74; RESP 18; TEMP 37.1; O2SAT 99; BMI 20.1
--- NOTE | 2024-11-01 19:27 | ED_ITS ---
<Statement entered by Matilda Dawson DO - 11/02/24 00:13> I was consulted by the TIFFANY, and we discussed the complexity of the problems being addressed. I approved the treatment and management plan for this patient's care in the emergency department, thus performing a substantive portion of the medical decision making. Matilda Dawson DO Discharge Plan Disposition Patient Disposition: Admitted Condition: Good Clinical Impressions Clinical Impression: Bacteremia Discharge ED Provider: Matilda Dawson General Adult HPI General Chief complaint: Recheck/Abnormal Lab/Rx Stated complaint: critical labs Time Seen by Provider: 11/01/24 19:26 History of Present Illness HPI narrative: Patient Dago presents for bacteremia. Patient was seen and evaluated and worked up earlier this date and was diagnosed with a urinary tract infection and pneumonia. Blood cultures have already returned positive for Acinetobacter. Hence she returns to be admitted for IV antibiotics while we await culture speciation. No changes happened in the interval including no chest pain shortness of breath nausea vomiting fever chills hemoptysis hematochezia melena. Related Data Home Medications ?Medication ?Instructions ?Recorded ?Confirmed pravastatin 40 mg tablet 40 mg PO HS Cholesterol 03/31/18 09/11/24 budesonide-formoterol HFA 160 2 puffs inhalation BID Breathing 08/16/19 09/11/24 mcg-4.5 mcg/actuation aerosol problems inhaler gabapentin 300 mg capsule 300 mg PO HS nerve pain 01/05/22 09/11/24 metformin 500 mg tablet,extended 250 mg PO BID Diabetes 01/05/22 09/11/24 release 24hr (osmotic) ipratropium 0.5 mg-albuterol 3 mg ml inhalation 05/15/24 09/11/24 (2.5 mg base)/3 mL nebulization soln Previous Rx's ?Medication ?Instructions ?Recorded clopidogrel 75 mg tablet See Rx Instructions .Route 10/26/23 .COMPLEX antiplatelet #90 tabs apixaban 2.5 mg tablet 2.5 mg PO BID Blood thinner #180 09/11/24 tabs carvedilol 6.25 mg tablet (Coreg) 6.25 mg PO BID #60 tabs 09/11/24 furosemide 20 mg tablet 20 mg PO DAILY PRN edema #30 tabs 09/11/24 valsartan 40 mg tablet 40 mg PO BID #60 tabs 09/19/24 digoxin 125 mcg (0.125 mg) tablet See Rx Instructions .Route 10/04/24 .COMPLEX #90 tabs levofloxacin 750 mg tablet 750 mg PO DAILY 7 days #7 tabs 10/31/24 Allergies Allergy/AdvReac Type Severity Reaction Status Date / Time codeine (CODEINE) Allergy Unknown Unknown Verified 09/11/24 13:12 allergy reaction morphine Allergy Unknown Unknown Verified 09/11/24 13:12 allergy reaction doxycycline AdvReac Nausea Verified 09/11/24 13:12 [facility] Disclaimer: The information contained in this section may have been updated after the patient was seen, as this information can be updated by other users. Medical History Memory loss Abnormal findings on diagnostic imaging of heart and coronary circulation Chronic HFrEF (heart failure with reduced ejection fraction) Claudication Social History (Updated 11/01/24 @ 21:55 by Carol Berrios RN) Smoking Status: Never smoker alcohol intake: never substance use type: denies use current occupational status: retired Travel in the last 8 weeks: Inside the [place] household members: none housing: house current occupation: Works at [employer] current occupational exposures/hazards: No caffeine: Yes Have you lived/traveled outside US in past 30 days?: No Contact w/someone who lives/traveled outside US past 30 days?: No Exposure to someone with infectious disease in past 14 days?: No Do you have a fever (greater than 100.4 F or 38 C)?: No Have you tested positive for COVID-19: No Exposed to someone with COVID-19 in past 14 days?: No Do you have a sore throat?: No Do you have a cough?: No Do you have any weakness?: No Are you experiencing any nausea/vomitting?: No Do you have any diarrhea?: No Are you experiencing any unusual bleeding?: No Do you have any muscle aches/pain?: No Do you have any abdominal pain?: No Are you experiencing loss of taste or smell?: No Other Medical History Have you received the Flu Vaccine for this season: Yes Have you received the Pneumonia Vaccine: No ROS Obtained: Yes Systems reviewed as appropriate & no additional complaints except as documented Physical Exam General General appearance: alert and in no apparent distress Respiratory Respiratory exam: Present normal lung sounds bilaterally Cardiovascular Cardiovascular exam: Present regular rate Neurological Exam Neurological exam: Present alert, oriented X3 and CN II-XII intact Medical Decision Making Medical Records Medical records reviewed: Yes I reviewed the patient's medical records. Screening: Per USPSTF and CDC recommendations, given the prevalence of disease in our region, it is our hospital?s policy to screen for HIV and viral Hepatitis for all patients aged 18 and over and those with ongoing risk factors. [facility] Inquiry Pt receiving controlled substance: No Vital Signs: 11/01/24 19:20 Temperature 98.8 F Temperature Source Oral Pulse Rate [Left] 74 Respiratory Rate 18 Blood Pressure [Right Arm] 121/58 L Blood Pressure Mean [Right Arm] 79 02 Sat by Pulse Oximetry 99 Oxygen Delivery Method Room Air Lab Data Lab results reviewed: Yes I reviewed the patient's lab results. Orders (Tests/Meds): ED MEDICATIONS Generic Name Dose Route Start Last Admin Trade Name Freq PRN Reason Stop Dose Admin Acetaminophen 650 mg 11/01/24 22:52 Acetaminophen 325mg Tab PO 12/01/24 22:51 Q6HP PRN Fever or Mild Pain (1-3) Piperacillin Sod/Tazobactam 50 mls @ 100 mls/hr 11/02/24 03:00 Sod 2.25 gm/ Sodium Chloride IV 11/12/24 02:59 Q6H [facility] Insulin Human Lispro 0 unit 11/01/24 23:00 Humalog 100 Units/Ml 10ml Vial (Ssi) SUBCUT 12/01/24 22:59 ACHS [facility] Protocol Miscellaneous 1 each 11/01/24 22:21 11/01/24 22:23 Vancomycin Consult Request NOTAPPLIC 12/01/24 19:29 Not Given CONSULT PHARMACY [facility] Ondansetron HCl 4 mg 11/01/24 22:52 Ondansetron 4mg/2ml Vial IV 12/01/24 22:51 Q8HP PRN Nausea And Vomiting Discontinued Medications Generic Name Dose Route Start Last Admin Trade Name Freq PRN Reason Stop Dose Admin Piperacillin Sod/Tazobactam 50 mls @ 100 mls/hr 11/01/24 19:30 11/01/24 22:22 Sod 3.375 gm/ Sodium Chloride IV 11/11/24 19:29 Not Given Q6H [facility] Piperacillin Sod/Tazobactam 50 mls @ 100 mls/hr 11/01/24 20:00 11/01/24 21:16 Sod 3.375 gm/ Sodium Chloride IV 11/01/24 20:29 100 mls/hr ONCE ONE Administration Vancomycin/PEG/NADA/Lysine/Water 1.25 gm in 250 mls @ 125 mls/hr 11/01/24 2 0:15 11/01/24 22:01 Vancomycin 1.25gm/250ml (Peg) Premix IV 11/01/24 22:14 125 mls/hr ONCE ONE Administration Piperacillin Sod/Tazobactam 50 mls @ 100 mls/hr 11/02/24 01:30 Sod 3.375 gm/ Sodium Chloride IV 11/11/24 19:29 Q6H [facility] Miscellaneous 1 each 11/01/24 19:30 11/01/24 20:09 Vancomycin Consult Request NOTAPPLIC 12/01/24 19:29 1 each CONSULT PHARMACY [facility] Administration ORDERS Category Date Time Status Blood Culture Stat Micro 11/01/24 20:21 Received Medical Decision Narrative: In summary patient is a 84-year-old female who presents to the emergency department for evaluation of bacteremia. Patient is normotensive with a blood pressure 121/58 with a pulse of 74 normal sinus rhythm on the bedside monitor respiratory rate is 18 satting at 99% on room air upon arrival, afebrile at 98.8. Physical exam shows a frail but well-nourished well-developed unwell appearing 84-year-old female is in no acute distress. Differential diagnosis includes bacteremia from either the pneumonia or the urinary tract infection although I favor the former. Initial workup has already concluded we await speciation of the blood cultures to tailor her antibiotics. Initial interventions include repeat blood cultures initiation of Vanco and Zosyn. After blood cultures drawn IV antibiotics were initiated and I had an interactive discussion with Dr. Montanez regarding patient findings and patient management. She will be admitted for continued IV antibiotics further eval uation and care for Dr. Valencia. Critical Care Critical Care Time Critical Care Time: No
[2024-11-01] MEDS: VANCOMYCIN CONSULT REQUEST 1 EACH NOTAPPLIC (20:09)
--- NOTE | 2024-11-01 20:46 | PC.NURSE ---
NO ABX in ER. Flory called but it wasn't sent down. Will need ABX upstairs.
--- NOTE | 2024-11-01 20:51 | PC.NURSE ---
Patient arrived to floor via wheelchair from [facility] at 20:50.
[2024-11-01 20:52] VITALS: BP 120/62; PULSE 78; RESP 16; TEMP 37.1; O2SAT 97
[2024-11-01 21:00] VITALS: O2SAT 99
[2024-11-01] MEDS: PIPERCILLIN/TAZO 3.375 GM in 0.9 % SODIUM CHLORIDE 50 ML IV (21:16)
[2024-11-01] MEDS: VANCOMYCIN/WATER FOR INJ (PEG) 1.25 GM/250 ML PIGGYBACK IV (22:01)
[2024-11-01] MEDS: humaLOG 100 UNITS/ML 10ML VIAL (SSI) SUBCUT (23:12)
[2024-11-01 23:19] LABS: POC Glucose,Bedside 174 (70-110)
[2024-11-02] VITALS (7 sets, daily range): BP systolic 123–179; BP diastolic 56–95; PULSE 69–78; RESP 16–18; TEMP 36.5–37.2; O2SAT 95–98; BMI 25.2
[2024-11-02] MEDS: PIPERACILLIN/TAZO 2.25 GM in 0.9 % SODIUM CHLORIDE 50 ML IV ×4 (02:28→20:29)
[2024-11-02 05:52] LABS: POC Glucose,Bedside 107 (70-110)
[2024-11-02 06:57] LABS: Basophils % 0.3 % (0.1-2.0); Eosinophils # 0.4 K/mm3 (0.0-0.4); Hematocrit 33.7 % (37.0-47.0); Hemoglobin 11.1 g/dL (12.2-16.2); Lymphocytes # 3.1 K/mm3 (0.7-4.5); Lymphocytes % 21.7 % (10-50); Mean Corpuscular HGB Conc 32.9 g/dL (31.8-35.4); Mean Corpuscular Hemoglobin 29.5 pg (27.0-31.2); Mean Corpuscular Volume 89.6 fl (81-99); Mean Platelet Volume 9.4 fl (7.4-10.4); Monocytes # 1.6 K/mm3 (0.1-1.0); Monocytes % 10.9 % (1.7-9.3); Neutrophils # 9.1 K/mm3 (1.8-7.8); Neutrophils % 63.6 % (37.0-80.0); Platelet Count 339 K/mm3 (142-424); Red Blood Count 3.76 M/mm3 (4.20-5.40); Red Cell Distribution Width 11.9 % (11.5-17.5); White Blood Count 14.4 K/mm3 (4.8-10.8)
[2024-11-02 07:02] LABS: Anion Gap 9.7 mEq/L (5-15); Blood Urea Nitrogen 14 mg/dl (7-17); Calcium 8.5 mg/dl (8.4-10.2); Carbon Dioxide 29 mmol/L (22.0-30.0); Chloride 102 mmol/L (98-107); Creatinine Clearance Estimated 34 mL/min (50-200); Estimated Glomerular Filt Rate 69 ml/min (>60); GFR (African American) 83 ML/MIN (>60); Glucose 95 mg/dl (74-100); Potassium 3.7 mmoL/L (3.5-5.1); Sodium 137 mmol/L (136-145)
--- NOTE | 2024-11-02 08:17 | EXP.HP ---
History of Present Illness *Admission Date: 11/01/24 *Reason for visit:: Pneumonia, UTI *History of present illness: Ms. Zamora is an 84-year-old female who has been feeling poorly for the last 3 to 4 weeks. She states she has had a cough with sputum production. She also had some episodes of dysuria. She presented to the ER on 10/31/2024 due to weakness and difficulty walking along with confusion. She was diagnosed in the ER with a UTI and pneumonia. She was given Rocephin while in the emergency room. Her oxygen was satisfactory on room air, therefore she was discharged home on Levaquin. Blood cultures were drawn during that ER visit and the ER doctor was notified of a positive blood culture on 11/01/2024. The anaerobic bottle had Staph epidermidis, which was likely a contaminant, however she did have Acinetobacter in an aerobic culture. The ER physician called the patient and her granddaughter and advised them to return to the emergency department for repeat lab evaluation and blood cultures. She was seen and admitted for IV antibiotics pending final culture results. [facility] Disclaimer: The information contained in this section may have been updated after the patient was seen, as this information can be updated by other users. Medical History (Updated 11/02/24 @ 08:51 by EUGENIA Amaral) CHF (congestive heart failure) Asthma Abnormal ankle brachial index (MICHELE) Abnormal electrocardiography Absence of posterior tibial pulse Anxiety Atrial fibrillation with rapid ventricular response Body mass index (BMI) of 25.0 to 29.9 Callus of foot Chronic obstructive pulmonary disease Coronary artery disease Diabetes mellitus Diabetic foot Diastolic dysfunction Dry gangrene Dystrophia unguium Heart murmur Hyperlipidemia Hypertension Infection of left foot Intermittent claudication Ischemia of lower extremity Keratosis Left bundle branch block (LBBB) determined by electrocardiography Leg wound, right nursing home current use of anticoagulant therapy Mitral valve insufficiency Onychogryposis Osteomyelitis of toe Osteopenia determined by x-ray Paroxysmal atrial fibrillation Peripheral arterial disease Pneumonia Pre-syncope Presence of cardiac pacemaker Primary osteoarthritis of both feet Pulmonary hypertension Rapid atrial fibrillation Skin ulcer of second toe of left foot with fat layer exposed Systemic inflammatory response syndrome (SIRS) Tachycardia-bradycardia Ulcer of left great toe due to diabetes mellitus Acquired hammer toes of both feet Ulcer of right fifth toe due to diabetes mellitus Memory loss Abnormal findings on diagnostic imaging of heart and coronary circulation Chronic HFrEF (heart failure with reduced ejection fraction) Claudication Surgical History (Updated 11/02/24 @ 08:51 by EUGENIA Amaral) History of amputation of toe History of tubal ligation History of nasal surgery S/P peripheral artery angioplasty with stent placement Status post placement of cardiac pacemaker Family History (Updated 11/02/24 @ 08:53 by EUGENIA Amaral) Other Coronary artery disease Diabetes Heart attack Social History (Updated 11/01/24 @ 21:55 by Carol Berrios RN) Smoking Status: Never smoker alcohol intake: never substance use type: denies use current occupational status: retired Travel in the last 8 weeks: [place] the [place] household members: none housing: house current occupation: Works at [employer] current occupational exposures/hazards: No caffeine: Yes Have you lived/traveled outside US in past 30 days?: No Contact w/someone who lives/traveled outside US past 30 days?: No Exposure to someone with infectious disease in past 14 days?: No Do you have a fever (greater than 100.4 F or 38 C)?: No Have you tested positive for COVID-19: No Exposed to someone with COVID-19 in past 14 days?: No Do you have a sore throat?: No Do you have a cough?: No Do you have any weakness?: No Are you experiencing any nausea/vomitting?: No Do you have any diarrhea?: No Are you experiencing any unusual bleeding?: No Do you have any muscle aches/pain?: No Do you have any abdominal pain?: No Are you experiencing loss of taste or smell?: No Other Medical History Have you received the Flu Vaccine for this season: Yes Have you received the Pneumonia Vaccine: Yes Review of Systems Constitutional Constitutional: Denies body ache(s), Reports chills, Reports fatigue, Denies fever(s), Reports poor appetite, Reports malaise and Reports weakness Eyes Eyes: Denies blurry vision and Denies diplopia ENT Ears, Nose, Mouth, and Throat: Reports disequilibrium, Denies nasal congestion, Denies sore throat and Reports vertigo *Cardiovascular Cardiovascular: Denies chest pain and Denies dyspnea *Respiratory Respiratory: Reports cough and Denies dyspnea *Gastrointestinal Gastrointestinal: Denies abdominal pain, Denies loose stools, Denies nausea and Denies vomiting *Genitourinary Genitourinary: Reports dysuria *Musculoskeletal Musculoskeletal: Denies arthralgias and Reports muscle weakness *Neurologic Neurologic: Reports confusion, Reports disequilibrium, Reports vertigo and Reports weakness Psychiatric Psychiatric: Reports confusion Endocrine Endocrine: Reports fatigue Meds Home Medications and Allergies Home Medications ?Medication ?Instructions ?Recorded ?Confirmed ?Type pravastatin 40 mg tablet 40 mg PO HS 03/31/18 11/02/24 History budesonide-formoterol HFA 160 2 puffs inhalation BID SHORTNESS 08/16/19 11/02/24 History mcg-4.5 mcg/actuation aerosol OF BREATH inhaler gabapentin 300 mg capsule 300 mg PO HS 01/05/22 11/02/24 History metformin 500 mg tablet,extended 250 mg PO BID Diabetes 01/05/22 09/11/24 History release 24hr (osmotic) apixaban 2.5 mg tablet 2.5 mg PO BID Blood thinner #180 09/11/24 11/02/24 Rx tabs carvedilol 6.25 mg tablet (Coreg) 6.25 mg PO BID #60 tabs 09/11/24 09/11/24 Rx furosemide 20 mg tablet 20 mg PO DAILY PRN edema #30 tabs 09/11/24 09/11/24 Rx valsartan 40 mg tablet 40 mg PO BID #60 tabs 09/19/24 Rx levofloxacin 750 mg tablet 750 mg PO DAILY 7 days #7 tabs 10/31/24 Rx clopidogrel 75 mg tablet 75 mg PO DAILY 11/02/24 11/02/24 History digoxin 125 mcg (0.125 mg) tablet 125 mcg PO DAILY 11/02/24 11/02/24 History metoprolol succinate 50 mg 50 mg PO DAILY 11/02/24 History tablet,extended release 24 hr New Prescriptions to Start Prescriptions: Allergies Allergy/AdvReac Type Severity Reaction Status Date / Time codeine (CODEINE) Allergy Unknown Unknown Verified 09/11/24 13:12 allergy reaction morphine Allergy Unknown Unknown Verified 09/11/24 13:12 allergy reaction doxycycline AdvReac Nausea Verified 09/11/24 13:12 Exam Data for Last 24 hours Vital signs and Labs for Last 24 Hours: Temp Pulse Resp BP Pulse Ox O2 Del Method 98.3 F 69 16 129/56 L 95 Room Air 11/02/24 04:00 11/02/24 04:00 11/02/24 04:00 11/02/24 04:00 11/02/24 04:00 11/02/24 07:00 Laboratory Results - last 24 hr 11/01/24 23:11: POC Glucose 174 H 11/02/24 05:45: POC Glucose 107 11/02/24 06:11: WBC 14.4 H, RBC 3.76 L, Hgb 11.1 L, Hct 33.7 L, MCV 89.6, MCH 29.5, MCHC 32.9, RDW 11.9, Plt Count 339, MPV 9.4, Neut % (Auto) 63.6, Lymph % (Auto) 21.7, [place] % (Auto) 10.9 H, Eos % (Auto) 3.0, Baso % (Auto) 0.3, Neut # (Auto) 9.1 H, Lymph # (Auto) 3.1, [place] # (Auto) 1.6 H, Eos # (Auto) 0.4, Baso # (Auto) 0.0, Sodium 137, Potassium 3.7, Chloride 102, Carbon Dioxide 29, Anion Gap 9.7, BUN 14 D, Creatinine 0.80, Estimated Creat Clear 34, Estimated GFR 69, Est GFR ( Amer) 83, Glucose 95, Calcium 8.5 I & O for Last 24 hours: Intake & Output 10/30/24 10/31/24 11/01/24 11/02/24 11:59 11:59 11:59 11:59 Intake Total 300 / 300 Output Total 0 / 0 Balance 300 / 300 Weight 112 lb 8 oz Constitutional Constitutional: no acute distress *Routine HEENT Exam Head: Present normocephalic and atraumatic Eye: Present EOMI and PERRL ENT: Present mucous membranes moist *Routine Neck Exam Neck: Present supple and full ROM *Routine Respiratory Exam Respiratory: Present rales (faint in left base) *Routine Cardiovascular Exam Cardiovascular: Present RRR *Routine Abdominal Exam Abdominal: Present soft and normoactive bowel sounds; Absent tenderness *Routine Rectal Exam Rectal:: deferred *Routine Genitalia Exam Genitalia:: deferred *Routine Extremities Exam Extremities: Absent cyanosis, clubbing or edema *Routine Skin Exam Skin: Present intact; Absent erythema *Routine Neurological Exam Neurological: Present alert and oriented X3 H&P: Result Impressions CXR - Left retrocardiac consolidation could be due to pneumonia. Head CT - No acute intracranial abnormality. Advanced sinusitis. Head CTA - 1. No large vessel occlusion. 2. [id number] bilateral carotid siphon stenosis. Neck CTA 1. 60% stenosis involving the origin of the right ICA. 2. Moderate stenosis at the origin of the left ECA. 3. Additional findings as above. Abdominal/Pelvic CT 1. Posteroinferior left lower lobe consolidation is worrisome for pneumonia. Recommend follow-up chest CT after treatment to exclude neoplastic disease. 2. No urinary tract calculi or hydronephrosis. 3. Prior granulomatous disease. 4. Severe atherosclerotic disease. Assessment and Plan *Assessment and plan (1) Bacteremia: Status: Acute Category: Medical Code(s): R78.81 - Bacteremia (2) General weakness: Status: Acute Category: Medical Code(s): R53.1 - Weakness (3) Pneumonia: Status: Acute Category: Medical Code(s): J18.9 - Pneumonia, unspecified organism (4) UTI (urinary tract infection): Status: Acute Category: Medical Code(s): N39.0 - Urinary tract infection, site not specified (5) Abnormal findings on diagnostic imaging of heart and coronary circulation: Status: Acute Category: Medical Code(s): R93.1 - Abnormal findings on diagnostic imaging of heart and coronary circulation (6) Memory loss: Status: Acute Category: Medical Code(s): R41.3 - Other amnesia (7) Intracranial arteriosclerosis: Status: Acute Category: Medical Code(s): I67.2 - Cerebral atherosclerosis (8) Chronic HFrEF (heart failure with reduced ejection fraction): Status: Acute Category: Medical Code(s): I50.22 - Chronic systolic (congestive) heart failure (9) Dizziness: Status: Acute Category: Medical Code(s): R42 - Dizziness and giddiness (10) Peripheral arterial disease: Status: Acute Category: Medical Code(s): I73.9 - Peripheral vascular disease, unspecified (11) Peripheral vascular disease of lower extremity: Status: Acute Category: Medical Code(s): I73.9 - Peripheral vascular disease, unspecified (12) Type 2 diabetes mellitus: Status: Acute Qualifiers: Diabetes mellitus complication status: with hyperglycemia Diabetes mellitus halfway insulin use: without halfway use Qualified Code(s): E11.65 - Type 2 diabetes mellitus with hyperglycemia Category: Medical Code(s): E11.9 - Type 2 diabetes mellitus without complications (13) Chronic obstructive pulmonary disease: Status: Acute Category: Medical Code(s): J44.9 - Chronic obstructive pulmonary disease, unspecified (14) Coronary artery disease: Status: Acute Category: Medical Code(s): I25.10 - Atherosclerotic heart disease of [place] coronary artery without angina pectoris (15) Hyperlipidemia: Status: Acute Category: Medical Code(s): E78.5 - Hyperlipidemia, unspecified (16) Hypertension: Status: Acute Category: Medical Code(s): I10 - Essential (primary) hypertension (17) Paroxysmal atrial fibrillation: Status: Acute Category: Medical Code(s): I48.0 - Paroxysmal atrial fibrillation (18) Peripheral arterial disease: Status: Acute Category: Medical Code(s): I73.9 - Peripheral vascular disease, unspecified (19) Presence of cardiac pacemaker: Status: Acute Category: Medical Code(s): Z95.0 - Presence of cardiac pacemaker Plan Patient has been started on IV abx. She is feeling much better this am. Awaiting blood cultures. Dr. Montanez entry - Saw patient, agree with above note.
--- NOTE | 2024-11-02 08:25 | EXP.PHA.CONS ---
Pharmacy Consult Date: 11/02/24 Time: 08:25 Referring provider: DR JARRELL Reason for Consult:: VANCOMYCIN DOSING Allergies Allergy/AdvReac Type Severity Reaction Status Date / Time codeine (CODEINE) Allergy Unknown Unknown Verified 09/11/24 13:12 allergy reaction morphine Allergy Unknown Unknown Verified 09/11/24 13:12 allergy reaction doxycycline AdvReac Nausea Verified 09/11/24 13:12 Home Medications ?Medication ?Instructions ?Recorded ?Confirmed ?Type pravastatin 40 mg tablet 40 mg PO HS Cholesterol 03/31/18 11/01/24 History budesonide-formoterol HFA 160 2 puffs inhalation BID Breathing 08/16/19 11/01/24 History mcg-4.5 mcg/actuation aerosol problems inhaler gabapentin 300 mg capsule 300 mg PO HS nerve pain 01/05/22 11/01/24 History metformin 500 mg tablet,extended 250 mg PO BID Diabetes 01/05/22 11/01/24 History release 24hr (osmotic) clopidogrel 75 mg tablet See Rx Instructions .Route 10/26/23 11/01/24 Rx .COMPLEX antiplatelet #90 tabs ipratropium 0.5 mg-albuterol 3 mg 3 ml inhalation QID PRN Shortness 05/15/24 11/01/24 History (2.5 mg base)/3 mL nebulization Of Breath soln apixaban 2.5 mg tablet 2.5 mg PO BID Blood thinner #180 09/11/24 11/01/24 Rx tabs carvedilol 6.25 mg tablet (Coreg) 6.25 mg PO BID #60 tabs 09/11/24 11/01/24 Rx furosemide 20 mg tablet 20 mg PO DAILY PRN edema #30 tabs 09/11/24 11/01/24 Rx valsartan 40 mg tablet 40 mg PO BID #60 tabs 09/19/24 11/01/24 Rx digoxin 125 mcg (0.125 mg) tablet See Rx Instructions .Route 10/04/24 11/01/24 Rx .COMPLEX #90 tabs levofloxacin 750 mg tablet 750 mg PO DAILY 7 days #7 tabs 10/31/24 11/01/24 Rx New Prescriptions to Start Prescriptions: Height: 1.42 m Weight: 51.029 kg Laboratory Results:: Laboratory Results - last 24 hr 11/01/24 23:11: POC Glucose 174 H 11/02/24 05:45: POC Glucose 107 11/02/24 06:11: WBC 14.4 H, RBC 3.76 L, Hgb 11.1 L, Hct 33.7 L, MCV 89.6, MCH 29.5, MCHC 32.9, RDW 11.9, Plt Count 339, MPV 9.4, Neut % (Auto) 63.6, Lymph % (Auto) 21.7, [place] % (Auto) 10.9 H, Eos % (Auto) 3.0, Baso % (Auto) 0.3, Neut # (Auto) 9.1 H, Lymph # (Auto) 3.1, [place] # (Auto) 1.6 H, Eos # (Auto) 0.4, Baso # (Auto) 0.0, Sodium 137, Potassium 3.7, Chloride 102, Carbon Dioxide 29, Anion Gap 9.7, BUN 14 D, Creatinine 0.80, Estimated Creat Clear 34, Estimated GFR 69, Est GFR ( Amer) 83, Glucose 95, Calcium 8.5 Medical History: Medical History (Updated 11/01/24 @ 20:57 by Rani Pool RN) Memory loss Abnormal findings on diagnostic imaging of heart and coronary circulation Chronic HFrEF (heart failure with reduced ejection fraction) Claudication Assessment and Plan Assessment and plan all Dx Assessment and Plan for all problems:: Pharmacokinetic dosing service Objective: Patient: Floor: Age: 84 yo Serum creatinine: 0.80 mg/dL Height: 55.9 Inches Weight (kg): 51 Assessment: IBW (kg): 42.39 Dosing wt(kg): 51 Estimated Creatinine clearance (ml/min): 35.7 CRCL method: Cockcroft and Gault using ibw(default). Drug selected: Vancomycin Loading dose (mg): Vd (liters): 40.8 (factor used: 0.8 L/kg) Rikki (hr-1): 0.034 Half life (hrs): 20.39 CLvanco=?? 1.387 L/hr Recommended dose: 750 mg Interval: 24 hrs Infusion time (hrs): 2.0 Predicted peak (mcg/mL): 31.9 Predicted trough (mcg/mL): 15.10 Total body weight is being used for vancomycin dosing. Recommendations: Give Vancomycin 750 mg q 24 hrs with an expected Cpeak of 31.9 mcg/ml and an expected Ctrough of 15.10 mcg/ml AUC 0-24 /LATISHA Data: LATISHA 0.5 mcg/mL:?? AUC/LATISHA:? 1081.5 LATISHA 1.0 mcg/mL:?? AUC/LATISHA:? 540.7 --------- LATISHA 1.5 mcg/mL:?? AUC/LATISHA:? 360.5 LATISHA 2.0 mcg/mL:?? AUC/LATISHA:? 270.4 Thank you for the consult, will continue to follow. -RADHIKA DAVID, CANDED
--- NOTE | 2024-11-02 10:07 | HMH.PHAINT1 ---
Pharmacy Intervention Comments: VERIFIED WITH OUTPATIENT PHARMACY, CONFIRMED WITH PATIENT.
[2024-11-02] MEDS: SODIUM CHLORIDE 3% 15ML NEB 3 ML IH (10:08)
[2024-11-02 11:28] LABS: POC Glucose,Bedside 128 (70-110)
[2024-11-02] MEDS: FAMOTIDINE 20MG TABLET 20 MG PO (16:11)
[2024-11-02 16:23] LABS: POC Glucose,Bedside 112 (70-110)
--- NOTE | 2024-11-02 18:37 | PC.NURSE ---
no significant change from previous shift. pt has been pleasant. family has been at bs t/o the day and pt took a shower. she also stated she wants to go home to her dogs. daughter brought in home meds,. pharm did not needs meds, this nurse sent the meds back with daughter. no concerns, cb and personal items within reach.
[2024-11-02] MEDS: FLUTICASONE/SALMETEROL 250/50MCG DISKUS 1 PUFF IH (18:57)
[2024-11-02] MEDS: humaLOG 100 UNITS/ML 10ML VIAL (SSI) SUBCUT (20:29)
[2024-11-02] MEDS: GABAPENTIN 300MG CAPSULE 300 MG PO (20:29)
[2024-11-02] MEDS: APIXABAN 5MG TABLET 2.5 MG PO (20:29)
[2024-11-02 20:46] LABS: POC Glucose,Bedside 173 (70-110)
[2024-11-02] MEDS: VANCOMYCIN HCL 750 MG in 0.9 % SODIUM CHLORIDE 250 ML 125 MG IV (21:06)
[2024-11-03] VITALS (7 sets, daily range): BP systolic 116–155; BP diastolic 51–77; PULSE 64–76; RESP 17–20; TEMP 36.4–37.4; O2SAT 93–99; BMI 25.8
[2024-11-03] MEDS: PIPERACILLIN/TAZO 2.25 GM in 0.9 % SODIUM CHLORIDE 50 ML IV ×4 (03:52→20:15)
--- NOTE | 2024-11-03 05:33 | PC.NURSE ---
Pt has remained alert and oriented and has tolerated room air. Family has remained at bedside and has helped with pt care. She has ambulated to the bathroom with standby assist. She has tolerated IV antibiotics throughout the shift. Currently resting in bed with call light within reach.
[2024-11-03 06:20] LABS: POC Glucose,Bedside 109 (70-110)
[2024-11-03] MEDS: FLUTICASONE/SALMETEROL 250/50MCG DISKUS 1 PUFF IH (06:38)
[2024-11-03] MEDS: CLOPIDOGREL 75MG TAB 75 MG PO (08:45)
[2024-11-03] MEDS: DIGOXIN 0.125MG TABLET 125 MCG PO (08:45)
[2024-11-03] MEDS: APIXABAN 5MG TABLET 2.5 MG PO ×2 (08:45→20:16)
[2024-11-03] MEDS: GABAPENTIN 300MG CAPSULE 300 MG PO ×2 (08:45→20:16)
[2024-11-03] MEDS: FAMOTIDINE 20MG TABLET 20 MG PO (08:47)
--- NOTE | 2024-11-03 10:22 | EXP.ACUTE.PN ---
Subjective *Date: 11/03/24 *Time: 10:22 Interval history: Patient with no new complaints today, feels well, anxious to go home. Medical Exam Vital signs and Labs for Last 24 Hours: Vital Signs Temp Pulse Pulse Resp BP Pulse Ox O2 Del Method 11/03/24 08:45 76 11/03/24 08:00 Room Air 11/03/24 08:00 98.4 F 76 18 116/51 L 96 Room Air 11/03/24 06:45 Room Air 11/03/24 06:38 93 L Room Air 11/03/24 05:00 Room Air 11/03/24 04:00 99.4 F 67 20 137/54 L 97 Room Air 11/03/24 03:00 Room Air 11/03/24 01:00 Room Air 11/03/24 00:00 97.9 F 66 17 127/56 L 95 Room Air 11/02/24 23:00 Room Air 11/02/24 21:00 Room Air 11/02/24 20:00 Room Air 11/02/24 20:00 98.8 F 71 18 143/62 H 96 Room Air 11/02/24 18:39 Room Air 11/02/24 17:00 Room Air 11/02/24 16:00 98.0 F 73 18 179/95 H 98 Room Air 11/02/24 15:00 Room Air 11/02/24 13:00 Room Air 11/02/24 11:36 97.7 F 71 18 150/74 H 97 Room Air 11/02/24 11:00 Room Air Intake and Output 11/02/24 11/03/24 11/03/24 23:59 07:59 15:59 Intake Total 210 / 1700 500 / 980 480 / 980 Output Total 0 / 0 0 / 0 Balance 210 / 1700 500 / 980 480 / 980 Intake: Intake, Oral Amount 210 / 1100 200 / 680 480 / 680 Intake, Total IV Amount 300 / 300 Piperacillin/Tazo 2.25 gm In 0. 50 / 50 9 % Sodium Chloride 50 ml @ 100 mls/hr IV Q6H [facility] Rx#:[id number] Vancomycin/Water For Inj (Peg) 250 / 250 1.25 gm In 250 ml @ 125 mls/hr IV ONCE ONE Rx#:[id number] Output: Output, Urine Amount 0 / 0 0 / 0 Other: Number of Unmeasured Voids 1 Weight 115 lb Patient Weight 11/03/24 23:59 Weight 115 lb Laboratory Results - last 24 hr 11/02/24 11:16: POC Glucose 128 H 11/02/24 16:10: POC Glucose 112 H 11/02/24 20:27: POC Glucose 173 H 11/03/24 06:13: POC Glucose 109 I & O for Labs for Last 24 Hours: Intake & Output 10/31/24 11/01/24 11/02/24 11/03/24 23:59 23:59 23:59 23:59 Intake Total 1200 / 1700 980 / 980 Output Total 0 / 0 0 / 0 Balance 1200 / 1700 980 / 980 Weight 112 lb 112 lb 8 oz 115 lb Microbiology Reports for the Last 24 Hours: Microbiology 11/01/24 20:21 Blood Blood Culture - Preliminary NO GROWTH AFTER 24 HOURS 11/01/24 19:56 Blood Blood Culture - Preliminary NO GROWTH AFTER 24 HOURS 11/02/24 10:15 Sputum - Expectorated Sputum Gram Stain - Final Constitutional: Present no acute distress Respiratory: Present normal respiratory effort Cardiac: Present Reg Rate and Rhythm GI: Present normal bowel sounds; Absent tenderness Extremities: Present normal inspection and full ROM Skin: Present intact; Absent erythema Neuro: Present Grossly Intact and moves all extremities Assessment and Plan *Assessment and plan (1) Bacteremia: Status: Acute Category: Medical Code(s): R78.81 - Bacteremia (2) General weakness: Status: Acute Category: Medical Code(s): R53.1 - Weakness (3) Pneumonia: Status: Acute Category: Medical Code(s): J18.9 - Pneumonia, unspecified organism (4) UTI (urinary tract infection): Status: Acute Category: Medical Code(s): N39.0 - Urinary tract infection, site not specified (5) Abnormal findings on diagnostic imaging of heart and coronary circulation: Status: Acute Category: Medical Code(s): R93.1 - Abnormal findings on diagnostic imaging of heart and coronary circulation (6) Memory loss: Status: Acute Category: Medical Code(s): R41.3 - Other amnesia (7) Intracranial arteriosclerosis: Status: Acute Category: Medical Code(s): I67.2 - Cerebral atherosclerosis (8) Chronic HFrEF (heart failure with reduced ejection fraction): Status: Acute Category: Medical Code(s): I50.22 - Chronic systolic (congestive) heart failure (9) Dizziness: Status: Acute Category: Medical Code(s): R42 - Dizziness and giddiness (10) Peripheral arterial disease: Status: Acute Category: Medical Code(s): I73.9 - Peripheral vascular disease, unspecified (11) Peripheral vascular disease of lower extremity: Status: Acute Category: Medical Code(s): I73.9 - Peripheral vascular disease, unspecified (12) Type 2 diabetes mellitus: Status: Acute Qualifiers: Diabetes mellitus residential insulin use: without residential use Diabetes mellitus complication status: with hyperglycemia Qualified Code(s): E11.65 - Type 2 diabetes mellitus with hyperglycemia Category: Medical Code(s): E11.9 - Type 2 diabetes mellitus without complications (13) Chronic obstructive pulmonary disease: Status: Acute Category: Medical Code(s): J44.9 - Chronic obstructive pulmonary disease, unspecified (14) Coronary artery disease: Status: Acute Category: Medical Code(s): I25.10 - Atherosclerotic heart disease of [place] coronary artery without angina pectoris (15) Hyperlipidemia: Status: Acute Category: Medical Code(s): E78.5 - Hyperlipidemia, unspecified (16) Hypertension: Status: Acute Category: Medical Code(s): I10 - Essential (primary) hypertension (17) Paroxysmal atrial fibrillation: Status: Acute Category: Medical Code(s): I48.0 - Paroxysmal atrial fibrillation (18) Peripheral arterial disease: Status: Acute Category: Medical Code(s): I73.9 - Peripheral vascular disease, unspecified (19) Presence of cardiac pacemaker: Status: Acute Category: Medical Code(s): Z95.0 - Presence of cardiac pacemaker Plan Patient continues to improve, continue current treatment.
[2024-11-03 16:15] LABS: POC Glucose,Bedside 101 (70-110)
[2024-11-03 20:41] LABS: POC Glucose,Bedside 157 (70-110)
[2024-11-03] MEDS: VANCOMYCIN HCL 750 MG in 0.9 % SODIUM CHLORIDE 250 ML 125 MG IV (22:08)
[2024-11-04] MEDS: PIPERACILLIN/TAZO 2.25 GM in 0.9 % SODIUM CHLORIDE 50 ML IV ×2 (03:10→08:32)
[2024-11-04 04:00] VITALS: BP 153/80; PULSE 68; RESP 20; TEMP 36.4; O2SAT 100; BMI 25.2
--- NOTE | 2024-11-04 04:09 | PC.NURSE ---
Patient is alert and oriented x4. Patient stated that she is feeling much better and that her memory is continuing to improve with her ongoing treatment of her bacteremia. UTI prevention education was provided this shift. She was observed to have eyes closed, respirations even and unlabored on room air, and no apparent distress for the majority of the night. This morning, the patient has been up to the chair and ambulated around her room independently. Patient tolerates ambulation very well and has been eager to be active during her wakeful hours. Auscultation of her heart, lungs, and bowels were within normal findings. Upon palpation, her abdomen was soft and non-tender. Scheduled medications and IV antibiotics were administered per DEC. Vital signs have been stable; however, blood pressures were slightly elevated this shift. ACHS glucose fingersticks performed. Patient refused a snack but was given a Mtn Dew to drink at bedtime. At this time, the patient is resting in bed and watching TV. She does not have any further complaints. No acute changes noted. Call light within reach.
[2024-11-04 05:54] LABS: POC Glucose,Bedside 120 (70-110)
[2024-11-04 06:26] VITALS: O2SAT 98
[2024-11-04] MEDS: FLUTICASONE/SALMETEROL 250/50MCG DISKUS 1 PUFF IH (06:26)
[2024-11-04 08:00] VITALS: BP 127/48; PULSE 72; RESP 20; TEMP 36.7; O2SAT 98
[2024-11-04] MEDS: FAMOTIDINE 20MG TABLET 20 MG PO (08:32)
[2024-11-04] MEDS: CLOPIDOGREL 75MG TAB 75 MG PO (08:32)
[2024-11-04] MEDS: APIXABAN 5MG TABLET 2.5 MG PO (08:32)
[2024-11-04] MEDS: GABAPENTIN 300MG CAPSULE 300 MG PO (08:32)
[2024-11-04 08:33] VITALS: PULSE 72
[2024-11-04] MEDS: DIGOXIN 0.125MG TABLET 125 MCG PO (08:33)
[2024-11-04 09:04] LABS: MANUAL DIFFERENTIAL MANUAL DIFFERENTIAL (MANUAL DIFF)
[2024-11-04 09:11] LABS: Basophils % 0.4 % (0.1-2.0); Eosinophils # 0.5 K/mm3 (0.0-0.4); Eosinophils % 4.9 % (0.1-12.0); Hematocrit 37.9 % (37.0-47.0); Lymphocytes # 3.3 K/mm3 (0.7-4.5); Mean Corpuscular HGB Conc 31.7 g/dL (31.8-35.4); Mean Corpuscular Hemoglobin 28.6 pg (27.0-31.2); Mean Corpuscular Volume 90.5 fl (81-99); Mean Platelet Volume 9.5 fl (7.4-10.4); Monocytes # 0.7 K/mm3 (0.1-1.0); Monocytes % 7.6 % (1.7-9.3); Neutrophils # 5.1 K/mm3 (1.8-7.8); Neutrophils % 52.7 % (37.0-80.0); Platelet Count 440 K/mm3 (142-424); Red Blood Count 4.19 M/mm3 (4.20-5.40); Red Cell Distribution Width 11.9 % (11.5-17.5); White Blood Count 9.7 K/mm3 (4.8-10.8)
[2024-11-04 10:05] LABS: Chloride 105 mmol/L (98-107); Potassium 4.7 mmoL/L (3.5-5.1); Sodium 136 mmol/L (136-145)
[2024-11-04 10:08] LABS: Anion Gap 7.7 mEq/L (5-15); Blood Urea Nitrogen 9 mg/dl (7-17); Calcium 9.1 mg/dl (8.4-10.2); Carbon Dioxide 28 mmol/L (22.0-30.0); Creatinine Clearance Estimated 34 mL/min (50-200); Estimated Glomerular Filt Rate 80 ml/min (>60); GFR (African American) 97 ML/MIN (>60); Glucose 153 mg/dl (74-100)
[2024-11-04 10:16] LABS: Eosinophils % 2 % (0-3); Lymphocytes % 45 % (10-50); Monocytes % 4 % (2-9); Neutrophils % 49 % (42-76); Platelet Estimate Normal; RBC Morphology Normal; Total Cells Counted 100
--- NOTE | 2024-11-04 11:00 | EXP.ACUTE.PN ---
Subjective *Date: 11/04/24 *Time: 11:00 Interval history: Patient feels well, wants to go home. Medical Exam Vital signs and Labs for Last 24 Hours: Vital Signs Temp Pulse Pulse Resp BP Pulse Ox O2 Del Method 11/04/24 09:00 Room Air 11/04/24 08:33 72 11/04/24 08:00 98.1 F 72 20 127/48 L 98 Room Air 11/04/24 08:00 Room Air 11/04/24 06:45 Room Air 11/04/24 06:26 98 Room Air 11/04/24 05:00 Room Air 11/04/24 04:00 97.6 F 68 20 153/80 H 100 Room Air 11/04/24 03:00 Room Air 11/04/24 01:00 Room Air 11/03/24 23:00 Room Air 11/03/24 21:00 Room Air 11/03/24 20:00 72 18 97 Room Air 11/03/24 20:00 98.3 F 72 18 155/77 H 97 Room Air 11/03/24 18:34 Room Air 11/03/24 17:00 Room Air 11/03/24 16:00 97.6 F 64 18 155/65 H 99 Room Air 11/03/24 15:00 Room Air 11/03/24 13:00 Room Air Intake and Output 11/03/24 11/04/24 11/04/24 23:59 07:59 15:59 Intake Total 100 / 1942 622 / 922 300 / 922 Output Total 0 / 0 0 / 0 0 / 0 Balance 100 / 1942 622 / 922 300 / 922 Intake: Intake, Oral Amount 100 / 1342 322 / 622 300 / 622 Infusion Intake 300 / 300 Piperacillin/Tazo 2.25 gm In 0. 50 / 50 9 % Sodium Chloride 50 ml @ 100 mls/hr IV Q6H [facility] Rx#:[id number] Vancomycin HCl 750 mg In 0.9 % 250 / 250 Sodium Chloride 250 ml @ 125 mls/hr IV Q24H [facility] Rx#:[id number] Output: Output, Urine Amount 0 / 0 0 / 0 0 / 0 Other: Number of Unmeasured Voids 4 1 2 Number of Bowel Movements 2 Weight 112 lb 1.6 oz Patient Weight 11/04/24 23:59 Weight 112 lb 1.6 oz Laboratory Results - last 24 hr 11/03/24 16:06: POC Glucose 101 11/03/24 20:30: POC Glucose 157 H 11/04/24 05:41: POC Glucose 120 H 11/04/24 08:10: WBC 9.7 D, RBC 4.19 L, Hgb 12.0 L, Hct 37.9, MCV 90.5, MCH 28.6, MCHC 31.7 L, RDW 11.9, Plt Count 440 H D, MPV 9.5, Neut % (Auto) 52.7, Lymph % (Auto) 34.0, [place] % (Auto) 7.6, Eos % (Auto) 4.9, Baso % (Auto) 0.4, Neut # (Auto) 5.1, Lymph # (Auto) 3.3, [place] # (Auto) 0.7, Eos # (Auto) 0.5 H, Baso # (Auto) 0.0, Total Counted 100, Neutrophils % (Manual) 49, Lymphocytes % (Manual) 45, Monocytes % (Manual) 4, Eosinophils % (Manual) 2, Platelet Estimate Normal, RBC Morphology Normal, Sodium 136, Potassium 4.7 D, Chloride 105, Carbon Dioxide 28, Anion Gap 7.7, BUN 9 D, Creatinine 0.70, Estimated Creat Clear 34, Estimated GFR 80, Est GFR ( Amer) 97, Glucose 153 H, Calcium 9.1 I & O for Labs for Last 24 Hours: Intake & Output 11/01/24 11/02/24 11/03/24 11/04/24 23:59 23:59 23:59 23:59 Intake Total 1200 / 1700 1320 / 1942 922 / 922 Output Total 0 / 0 0 / 0 0 / 0 Balance 1200 / 1700 1320 / 1942 922 / 922 Weight 112 lb 112 lb 8 oz 115 lb 112 lb 1.6 oz Microbiology Reports for the Last 24 Hours: Microbiology 11/02/24 10:15 Sputum - Expectorated Sputum Gram Stain - Final 11/02/24 10:15 Sputum - Expectorated Sputum Sputum Culture - Preliminary 11/01/24 20:21 Blood Blood Culture - Preliminary NO GROWTH AFTER 48 HOURS 11/01/24 19:56 Blood Blood Culture - Preliminary NO GROWTH AFTER 48 HOURS Constitutional: Present no acute distress Respiratory: Present normal respiratory effort Cardiac: Present Reg Rate and Rhythm GI: Present normal bowel sounds; Absent tenderness Extremities: Present normal inspection and full ROM Skin: Present intact; Absent erythema Neuro: Present Grossly Intact and moves all extremities Assessment and Plan *Assessment and plan (1) Bacteremia: Status: Acute Category: Medical Code(s): R78.81 - Bacteremia (2) General weakness: Status: Acute Category: Medical Code(s): R53.1 - Weakness (3) Pneumonia: Status: Acute Category: Medical Code(s): J18.9 - Pneumonia, unspecified organism (4) UTI (urinary tract infection): Status: Acute Category: Medical Code(s): N39.0 - Urinary tract infection, site not specified (5) Abnormal findings on diagnostic imaging of heart and coronary circulation: Status: Acute Category: Medical Code(s): R93.1 - Abnormal findings on diagnostic imaging of heart and coronary circulation (6) Memory loss: Status: Acute Category: Medical Code(s): R41.3 - Other amnesia (7) Intracranial arteriosclerosis: Status: Acute Category: Medical Code(s): I67.2 - Cerebral atherosclerosis (8) Chronic HFrEF (heart failure with reduced ejection fraction): Status: Acute Category: Medical Code(s): I50.22 - Chronic systolic (congestive) heart failure (9) Dizziness: Status: Acute Category: Medical Code(s): R42 - Dizziness and giddiness (10) Peripheral arterial disease: Status: Acute Category: Medical Code(s): I73.9 - Peripheral vascular disease, unspecified (11) Peripheral vascular disease of lower extremity: Status: Acute Category: Medical Code(s): I73.9 - Peripheral vascular disease, unspecified (12) Type 2 diabetes mellitus: Status: Acute Qualifiers: Diabetes mellitus [employer] insulin use: without local [employer] use Diabetes mellitus complication status: with hyperglycemia Qualified Code(s): E11.65 - Type 2 diabetes mellitus with hyperglycemia Category: Medical Code(s): E11.9 - Type 2 diabetes mellitus without complications (13) Chronic obstructive pulmonary disease: Status: Acute Category: Medical Code(s): J44.9 - Chronic obstructive pulmonary disease, unspecified (14) Coronary artery disease: Status: Acute Category: Medical Code(s): I25.10 - Atherosclerotic heart disease of [place] coronary artery without angina pectoris (15) Hyperlipidemia: Status: Acute Category: Medical Code(s): E78.5 - Hyperlipidemia, unspecified (16) Hypertension: Status: Acute Category: Medical Code(s): I10 - Essential (primary) hypertension (17) Paroxysmal atrial fibrillation: Status: Acute Category: Medical Code(s): I48.0 - Paroxysmal atrial fibrillation (18) Peripheral arterial disease: Status: Acute Category: Medical Code(s): I73.9 - Peripheral vascular disease, unspecified (19) Presence of cardiac pacemaker: Status: Acute Category: Medical Code(s): Z95.0 - Presence of cardiac pacemaker Plan Repeat blood cultures negative at 48 hours, seems like original cultures are positive due to contaminant. OK to discharge home today, will treat with Levaquin.
[2024-11-04] MEDS: levoFLOXacin 750 MG TABLET PO (11:12)
--- NOTE | 2024-11-05 12:24 | P.DS_ITS ---
General Admission date:: 11/01/24 Discharge date: 11/04/24 HPI HPI HPI: Ms. Zamora is an 84-year-old female who has been feeling poorly for the last 3 to 4 weeks. She states she has had a cough with sputum production. She also had some episodes of dysuria. She presented to the ER on 10/31/2024 due to weakness and difficulty walking along with confusion. She was diagnosed in the ER with a UTI and pneumonia. She was given Rocephin while in the emergency room. Her oxygen was satisfactory on room air, therefore she was discharged home on Levaquin. Blood cultures were drawn during that ER visit and the ER doctor was notified of a positive blood culture on 11/01/2024. The anaerobic bottle had Staph epidermidis, which was likely a contaminant, however she did have Acinetobacter in an aerobic culture. The ER physician called the patient and her granddaughter and advised them to return to the emergency department for repeat lab evaluation and blood cultures. She was seen and admitted for IV antibiotics pending final culture results. Hospital Course Hospital Course Hospital Course: On admission patient was started on antibiotics with pending cultures. She felt better the day after admission Vital signs remained stable. She was able to ambulate independently and did sit up in the chair. She was eating without problems. White blood cell count normalized and blood Chemistries were stable/normal. By 11/04/2024 patient was wanting to go home. She felt well and she was afebrile. She was discharged home on Levaquin. Exam Data for Last 24 hours Vital signs and Labs for Last 24 Hours: Temp Pulse Resp BP Pulse Ox O2 Del Method 98.1 F 72 20 127/48 L 98 Room Air 11/04/24 08:00 11/04/24 08:33 11/04/24 08:00 11/04/24 08:00 11/04/24 08:00 11/04/24 09:00 I & O for Last 24 hours: Intake & Output 11/03/24 11/04/24 11/05/24 11/06/24 11:59 11:59 11:59 11:59 Intake Total 1400 / 1400 1262 / 1262 Output Total 0 / 0 0 / 0 Balance 1400 / 1400 1262 / 1262 Weight 115 lb 112 lb 1.6 oz Microbiology Reports for the Last 24 Hours: Microbiology 11/02/24 10:15 Sputum - Expectorated Sputum Gram Stain - Final 11/02/24 10:15 Sputum - Expectorated Sputum Sputum Culture - Preliminary Gram Positive Cocci Narrative: Constitutional: Present no acute distress Respiratory: Present normal respiratory effort Cardiac: Present Reg Rate and Rhythm GI: Present normal bowel sounds; Absent tenderness Extremities: Present normal inspection and full ROM Skin: Present intact; Absent erythema Neuro: Present Grossly Intact and moves all extremities Results Data Completed and Pending Labs on day of discharge: Preliminary micro results at discharge 11/02/24 10:15 Sputum Culture - Preliminary Sputum - Expectorated Sputum Gram Positive Cocci 11/01/24 20:21 Blood Culture - Preliminary Blood NO GROWTH AFTER 48 HOURS 11/01/24 19:56 Blood Culture - Preliminary Blood NO GROWTH AFTER 48 HOURS DS: Diagnosis Discharge Diagnosis (1) Bacteremia: Status: Acute Code(s): R78.81 - Bacteremia (2) General weakness: Status: Acute Code(s): R53.1 - Weakness (3) Pneumonia: Status: Acute Code(s): J18.9 - Pneumonia, unspecified organism (4) UTI (urinary tract infection): Status: Acute Code(s): N39.0 - Urinary tract infection, site not specified (5) Abnormal findings on diagnostic imaging of heart and coronary circulation: Status: Acute Code(s): R93.1 - Abnormal findings on diagnostic imaging of heart and coronary circulation (6) Memory loss: Status: Acute Code(s): R41.3 - Other amnesia (7) Intracranial arteriosclerosis: Status: Acute Code(s): I67.2 - Cerebral atherosclerosis (8) Chronic HFrEF (heart failure with reduced ejection fraction): Status: Acute Code(s): I50.22 - Chronic systolic (congestive) heart failure (9) Dizziness: Status: Acute Code(s): R42 - Dizziness and giddiness (10) Peripheral arterial disease: Status: Acute Code(s): I73.9 - Peripheral vascular disease, unspecified (11) Peripheral vascular disease of lower extremity: Status: Acute Code(s): I73.9 - Peripheral vascular disease, unspecified (12) Type 2 diabetes mellitus: Status: Acute Code(s): E11.9 - Type 2 diabetes mellitus without complications Qualifiers: Diabetes mellitus [facility] insulin use: without [facility] use Diabetes mellitus complication status: with hyperglycemia Qualified Code(s): E11.65 - Type 2 diabetes mellitus with hyperglycemia (13) Chronic obstructive pulmonary disease: Status: Acute Code(s): J44.9 - Chronic obstructive pulmonary disease, unspecified (14) Coronary artery disease: Status: Acute Code(s): I25.10 - Atherosclerotic heart disease of [place] coronary artery without angina pectoris (15) Hyperlipidemia: Status: Acute Code(s): E78.5 - Hyperlipidemia, unspecified (16) Hypertension: Status: Acute Code(s): I10 - Essential (primary) hypertension (17) Paroxysmal atrial fibrillation: Status: Acute Code(s): I48.0 - Paroxysmal atrial fibrillation (18) Presence of cardiac pacemaker: Status: Acute Code(s): Z95.0 - Presence of cardiac pacemaker Meds Home Medications and Allergies Home Medications ?Medication ?Instructions ?Recorded ?Confirmed ?Type pravastatin 40 mg tablet 40 mg PO HS 03/31/18 11/02/24 History budesonide-formoterol HFA 160 2 puffs inhalation BID 08/16/19 11/02/24 History mcg-4.5 mcg/actuation aerosol inhaler (Symbicort) gabapentin 300 mg capsule 300 mg PO BID 01/05/22 11/02/24 History metformin 500 mg tablet,extended 250 mg PO BID 01/05/22 11/02/24 History release 24hr (osmotic) carvedilol 6.25 mg tablet (Coreg) 6.25 mg PO BID #60 tabs 09/11/24 11/02/24 Rx furosemide 20 mg tablet 20 mg PO DAILY PRN edema #30 tabs 09/11/24 11/02/24 Rx levofloxacin 750 mg tablet 750 mg PO DAILY 7 days #7 tabs 10/31/24 11/02/24 Rx apixaban 2.5 mg tablet (Eliquis) 2.5 mg PO BID 11/02/24 11/02/24 History clopidogrel 75 mg tablet 75 mg PO DAILY 11/02/24 11/02/24 History digoxin 125 mcg (0.125 mg) tablet 125 mcg PO DAILY 11/02/24 11/02/24 History sacubitril 24 mg-valsartan 26 mg 1 tab PO BID 11/02/24 11/02/24 History tablet (Entresto) New Prescriptions to Start Prescriptions: Allergies Allergy/AdvReac Type Severity Reaction Status Date / Time codeine (CODEINE) Allergy Unknown Unknown Verified 09/11/24 13:12 allergy reaction morphine Allergy Unknown Unknown Verified 09/11/24 13:12 allergy reaction doxycycline AdvReac Nausea Verified 09/11/24 13:12 Discharge Plan Disposition Patient Disposition: Home, Self-Care Condition: Good Discharge Order Discharge Orders: Discharge Order (Routine); Ordered 11/04/24 Ordered By: Alexis Montanez Follow up Plan Follow up with: Alexis Montanez MD [Primary Care Provider] - 11/14/24 Prescriptions/Medication Reconciliation: Continued gabapentin 300 mg capsule 300 mg PO BID carvedilol [Coreg] 6.25 mg tablet 6.25 mg PO BID Qty: 60 2RF Rx Instructions: must administer with a meal/food furosemide 20 mg tablet 20 mg PO DAILY PRN (Reason: edema) Qty: 30 1RF pravastatin 40 MG tablet 40 mg PO HS budesonide-formoterol [Symbicort] 10.2 GM HFA aerosol inhaler 2 puffs inhalation BID Rx Instructions: PATIENT STATES SHE TAKES HER INHALER NEEDED ABOUT ONCE A WEEK. clopidogrel 75 mg tablet 75 mg PO DAILY digoxin 125 mcg (0.125 mg) tablet 125 mcg PO DAILY Eliquis 2.5 mg tablet 2.5 mg PO BID Patient Comments: TAKE 1 TABLET BY MOUTH TWICE DAILY FOR BLOOD THINNER sacubitril-valsartan [Entresto] 24-26 mg tablet 1 tab PO BID Patient Comments: TAKE 1 TABLET BY MOUTH TWICE DAILY metformin 500 mg tablet extended release 24hr 250 mg PO BID levofloxacin 750 mg tablet 750 mg PO DAILY 7 Days Qty: 7 0RF Problem Reconciliation Problems Reviewed?: Yes Patient Discharge Instructions ACTIVITY: Continue current activity DIET: continue same diet Patient Instructions: DI for Pneumonia -- Adult, DI for Urinary Tract Infection (UTI), DI for Sepsis -- Adult Print Language: [place] Providers Primary Care Provider: Alexis Montanez Admit Provider: Alexis Montanez Attending Provider: Alexis Montanez
--- NOTE | 2024-11-06 10:10 | SW/DCPLANNER ---
Phoned patient x2. Left message with a call back number to call me back. Moe Rodriguez
== END 2024-11-04 11:42 | disposition home or self-care (01) | DRG 690 ==
LOC: ER 19:58 → 2ND 20:14
PROVIDERS: Family Medicine; Admitting Provider Family Medicine; Emergency Provider Emergency Medicine; PCP Family Medicine; Visit Provider Family Medicine
DX: N39.0 Urinary tract infection, site not specified (principal); J44.0 Chronic obstructive pulmonary disease with (acute) lower respiratory infection; I50.22 Chronic systolic (congestive) heart failure; R78.81 Bacteremia; R53.1 Weakness; R93.1 Abnormal findings on diagnostic imaging of heart and coronary circulation; R41.3 Other amnesia; I11.0 Hypertensive heart disease with heart failure; I67.2 Cerebral atherosclerosis; R42 Dizziness and giddiness; I73.9 Peripheral vascular disease, unspecified; E11.65 Type 2 diabetes mellitus with hyperglycemia; I44.7 Left bundle-branch block, unspecified; I25.10 Atherosclerotic heart disease of native coronary artery without angina pectoris; E78.5 Hyperlipidemia, unspecified; I48.0 Paroxysmal atrial fibrillation; Z95.0 Presence of cardiac pacemaker; Z79.01 Long term (current) use of anticoagulants; Z79.899 Other long term (current) drug therapy; Z79.51 Long term (current) use of inhaled steroids; Z79.84 Long term (current) use of oral hypoglycemic drugs
CPT/HCPCS: 36415; 80048; 82962; 85007; 85014; 85018; 85025; 85048; 85049; 87040; 87070; 87077; 87186; 87205; 94640; 99285; J2543; J3370; J3372

== ENCOUNTER 2025-01-31 13:37 | Observation (INO) | payer MEDICARE, SELFPAY ==
[2025-01-31] VITALS (50 sets, daily range): BP systolic 82–185; BP diastolic 36–97; PULSE 56–70; RESP 14–20; TEMP 35.8–36.6; O2SAT 92–100; BMI 24.6
--- NOTE | 2025-01-31 07:11 | IR_ITS ---
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 COMPLICATIONS NONE Estimated Blood Loss: LESS THAN 10 ML TECHNIQUE 1% lidocaine used anesthetize the right groin right femoral artery was accessed via the Salinger technique in an antegrade manner. A 4 Greenlandic sheath was advanced into the right femoral artery extending into the superficial femoral artery. Antegrade angiography was performed. Therapeutic heparin was administered and an advantage wire was placed distally into the popliteal artery through the subtotal and chronic occlusions. The 4 Greenlandic sheath was upsized to a 5 and then eventually 6 Greenlandic sheath. Initially a 5 mm balloon was used to dilate the popliteal artery and superficial femoral artery. Following this a 5 mm x 250 mm drug-coated balloon was deployed at 10 codey for 3 minutes in the mid to distal popliteal artery extending back into the superficial femoral artery. An additional 5 mm x 200 mm drug-coated balloon was then pulled back into the superficial femoral artery and right common femoral artery and then deployed at 12 codey for 3 minutes. Repeat angiography demonstrated there was further subtotal occlusion into the distal posterior descending artery therefore a 5 mm x 100 mm self-expanding stent was placed distally in the popliteal artery and deployed. A 4 mm x 80 mm balloon was then deployed at 12 codey to post dilate the stenosis. Repeat angiography demonstrated wide patency of the right common femoral artery right superficial femoral artery and right popliteal artery with inline antegrade flow into the peroneal artery and anterior tibialis artery. At the end of the procedure the apparatus was removed patient was transferred to the postop putting in stable condition for sheath removal ANGIOGRAPHIC RESULTS Right common femoral artery has stents which extend from the iliac artery throughout the common femoral artery and into the right superficial femoral artery. There is severe stenosis in the right common femoral artery extending into the right superficial femoral artery and into a subtotally occluded distal right popliteal artery. There appears to be two-vessel runoff below the knee however angiography was not performed distal to the proximal calf IMPRESSION Successful antegrade revascularization of the right common femoral artery right superficial femoral artery and right popliteal artery with drug-coated balloon angioplasty followed by additional bare-metal self-expanding stent deployment to the distal popliteal artery. T PLAN 1. Patient is a high risk for bleeding and should be admitted overnight with close one-on-one nursing for the first 6 hours following sheath pull 2. Risk factor modification for Jo vascular disease 3. Consultation with orthopedic surgery or foot surgery services to determine if amputation is required Electronically signed by : Sage Chadwick MD 01/31/2025 13:23:55
--- NOTE | 2025-01-31 10:00 | CA_ITS ---
FINAL REPORT TECHNIQUE: Extremity venous duplex was performed with augmentation and compression. CLINICAL HISTORY: Right PAD with stents, Right leg pain-chronic, Preprocedural exam FINDINGS: Proper flow is seen throughout the deep venous system. There is no evidence of deep venous thrombosis. IMPRESSION: No deep venous thrombosis. Reviewed, Interpreted and Dictated by Roscoe Farooq MD Transcribed by Yuliana Castillo Authenticated and [facility]
[2025-01-31 10:33] LABS: Basophils # 0.1 K/mm3 (0-0.2); Basophils % 0.5 % (0.1-2.0); Eosinophils % 7.3 % (0.1-12.0); Hemoglobin 14.1 g/dL (12.2-16.2); Lymphocytes # 3.4 K/mm3 (0.7-4.5); Lymphocytes % 25.7 % (10-50); Mean Corpuscular HGB Conc 31.3 g/dL (31.8-35.4); Mean Corpuscular Volume 92.4 fl (81-99); Mean Platelet Volume 9.3 fl (7.4-10.4); Monocytes # 1.1 K/mm3 (0.1-1.0); Monocytes % 8.5 % (1.7-9.3); Neutrophils # 7.6 K/mm3 (1.8-7.8); Neutrophils % 57.6 % (37.0-80.0); Nucleated Red Blood Cells # 0 10^3/uL; Nucleated Red Blood Cells % 0 %; Platelet Count 285 K/mm3 (142-424); Red Blood Count 4.87 M/mm3 (4.20-5.40); Red Cell Distribution Width 12.7 % (11.5-17.5); Red Cell Distribution Width-SD 43.1 fL; White Blood Count 13.2 K/mm3 (4.8-10.8)
[2025-01-31 10:43] LABS: Anion Gap 14.5 mEq/L (5-15); Blood Urea Nitrogen 27 mg/dl (7-17); Calcium 9.4 mg/dl (8.4-10.2); Carbon Dioxide 31 mmol/L (22.0-30.0); Chloride 99 mmol/L (98-107); Creatinine Clearance Estimated 32 mL/min (50-200); Estimated Glomerular Filt Rate 53 ml/min (>60); GFR (African American) 64 ML/MIN (>60); Glucose 143 mg/dl (74-100); Potassium 4.5 mmoL/L (3.5-5.1); Sodium 140 mmol/L (136-145)
[2025-01-31] MEDS: 0.9 % SODIUM CHLORIDE 500 ML 25 ML IV (11:16)
[2025-01-31] MEDS: LIDOCAINE 1% 10ML MDV 10 ML IJ (11:16)
[2025-01-31] MEDS: FENTANYL 100MCG/2ML VIAL 50 MCG IV (11:17)
[2025-01-31] MEDS: MIDAZOLAM HCL 1MG/ML 5ML VIAL 1 MG IV (11:17)
[2025-01-31] MEDS: HEPARIN 1,000 UNITS/500ML NS (CATH LAB) 3000 UNIT IV (11:18)
--- NOTE | 2025-01-31 13:51 | HMH.PHAINT1 ---
Pharmacy Intervention Comments: MEDICATION RECONCILIATION COMPLETED ON PATIENT USING EXTERNAL FILL HISTORY FROM PHARMACY AND LIST FROM CARDIOLOGY OFFICE. -RADHIKA DAVID, CANDED
--- NOTE | 2025-01-31 14:34 | P.HP_ITS ---
History of Present Illness *Admission Date: 01/31/25 *Reason for visit:: claudication *History of present illness: Ms. Zamora is an 84yo female who was seen in the cardiology office on 01/28/25. She had woken up with worsening pain in her right lower extremity. Her toes appeared discolored. They had originally ordered a CTA of the abdomen/femoral but cancelled this and scheduled a right iliofemoral runoff due to PAD and discolored lower extremity. This was performed today and she had successful antegrade revascularization of the right common femoral artery, right superficial femoral artery, and right popliteal artery. She also had a bare- metal self expanding stent deployed to the distal popliteal artery. Cardiology wanted her admitted overnight due to her high risk of bleeding. [facility] Disclaimer: The information contained in this section may have been updated after the patient was seen, as this information can be updated by other users. Medical History Claudication Hyperlipemia HTN (hypertension) Paroxysmal atrial fibrillation Peripheral arterial disease CAD (coronary artery disease) Pain in right lower leg Intracranial arteriosclerosis Pneumonia UTI (urinary tract infection) Amputated toe of right foot Cellulitis Fracture of cuneiform bone of foot Acquired pes planus of right foot Osteomyelitis of toe of right foot Postoperative wound dehiscence Charcot's joint of right foot Postoperative dehiscence of skin wound Gangrene of toe Gangrene of toe of right foot Cough Ischemic ulcer of toe of right foot, limited to breakdown of skin Ischemic ulcer of toe of right foot Real time reverse transcriptase PCR positive for COVID-19 virus Peripheral vascular disease of lower extremity Pre-ulcerative calluses Pneumonia Peripheral arterial disease Abnormal ankle brachial index (MICHELE) Cardiac pacemaker in situ Acute bronchitis Left bundle branch block (LBBB) on electrocardiogram Tachy-jose francisco syndrome Near syncope Elevated blood pressure reading Anxiety Diabetic foot Keratosis Callus of foot Diabetic ulcer of right fifth toe Dry gangrene Skin ulcer of second toe of left foot with fat layer exposed Ulcer of left great toe due to diabetes mellitus Primary osteoarthritis of both feet Encounter for wound care Overweight (BMI 25.0-29.9) Type 2 diabetes mellitus without complication, without long-term current use of insulin Acquired hammertoes of both feet Osteomyelitis of toe Left foot infection Nail dystrophy Onychogryphosis Lower limb ischemia PAF (paroxysmal atrial fibrillation) PAD (peripheral artery disease) Leg wound, right Leg edema, right COPD (chronic obstructive pulmonary disease) Diabetes mellitus Rapid atrial fibrillation Pulmonary HTN Diastolic dysfunction Mitral regurgitation 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 A-fib Abnormal ECG Fatigue Dyspnea Atrial fibrillation with RVR Asthma with exacerbation Acute exacerbation of chronic obstructive airways disease CHF (congestive heart failure) Asthma Abnormal ankle brachial index (MICHELE) Abnormal electrocardiography Absence of posterior tibial pulse Anxiety Atrial fibrillation with rapid ventricular response Body mass index (BMI) of 25.0 to 29.9 Callus of foot Chronic obstructive pulmonary disease Coronary artery disease Diabetes mellitus Diabetic foot Diastolic dysfunction Dry gangrene Dystrophia unguium Heart murmur Hyperlipidemia Hypertension Infection of left foot Intermittent claudication Ischemia of lower extremity Keratosis Left bundle branch block (LBBB) determined by electrocardiography Leg wound, right shelter current use of anticoagulant therapy Mitral valve insufficiency Onychogryposis Osteomyelitis of toe Osteopenia determined by x-ray Pneumonia Pre-syncope Presence of cardiac pacemaker Primary osteoarthritis of both feet Pulmonary hypertension Rapid atrial fibrillation Skin ulcer of second toe of left foot with fat layer exposed Systemic inflammatory response syndrome (SIRS) Tachycardia-bradycardia Ulcer of left great toe due to diabetes mellitus Acquired hammer toes of both feet Ulcer of right fifth toe due to diabetes mellitus Memory loss Abnormal findings on diagnostic imaging of heart and coronary circulation Chronic HFrEF (heart failure with reduced ejection fraction) Claudication Surgical History S/P amputation of lesser toe History of complete ray amputation of fourth toe of right foot History of complete ray amputation of third toe of right foot Status post foot surgery Status post placement of cardiac pacemaker S/P peripheral artery angioplasty with stent placement History of amputation of toe History of tubal ligation History of nasal surgery S/P peripheral artery angioplasty with stent placement Status post placement of cardiac pacemaker Family History Diabetes Coronary artery disease Heart attack Social History Smoking Status: Never smoker alcohol intake: never substance use type: denies use current occupational status: retired Travel in the last 8 weeks: Inside the [place] household members: none housing: house current occupation: Works at [employer] current occupational exposures/hazards: No caffeine: Yes Have you lived/traveled outside US in past 30 days?: No Contact w/someone who lives/traveled outside US past 30 days?: No Exposure to someone with infectious disease in past 14 days?: No Do you have a fever (greater than 100.4 F or 38 C)?: No Have you tested positive for COVID-19: No Exposed to someone with COVID-19 in past 14 days?: No Do you have a sore throat?: No Do you have a cough?: No Do you have any weakness?: No Do you have any diarrhea?: No Are you experiencing any unusual bleeding?: No Do you have any muscle aches/pain?: No Do you have any abdominal pain?: No Are you experiencing loss of taste or smell?: No Other Medical History Have you received the Flu Vaccine for this season: No Have you received the Pneumonia Vaccine: No Review of Systems Review of Systems Review of systems:: unable to obtain (Patient is drowsy from anesthesia) Meds Home Medications and Allergies Home Medications ?Medication ?Instructions ?Recorded ?Confirmed ?Type pravastatin 40 mg tablet 40 mg PO HS 03/31/18 01/31/25 History budesonide-formoterol HFA 160 2 puffs inhalation BID 08/16/19 01/31/25 History mcg-4.5 mcg/actuation aerosol inhaler (Symbicort) gabapentin 300 mg capsule 300 mg PO BID 01/05/22 01/31/25 History apixaban 2.5 mg tablet (Eliquis) 2.5 mg PO BID 11/02/24 01/31/25 History digoxin 125 mcg (0.125 mg) tablet 125 mcg PO DAILY 11/02/24 01/31/25 History carvedilol 6.25 mg tablet (Coreg) 6.25 mg PO BID #180 tabs 11/20/24 01/31/25 Rx valsartan 40 mg tablet 40 mg PO BID #180 tabs 11/20/24 01/31/25 Rx clopidogrel 75 mg tablet 75 mg PO DAILY 01/31/25 01/31/25 History furosemide 20 mg tablet 20 mg PO DAILYP PRN Edema 01/31/25 01/31/25 History metformin 500 mg tablet,extended 500 mg PO BID 01/31/25 01/31/25 History release 24 hr New Prescriptions to Start Prescriptions: Allergies Allergy/AdvReac Type Severity Reaction Status Date / Time codeine (CODEINE) Allergy Unknown Unknown Verified 01/28/25 13:41 allergy reaction morphine Allergy Unknown Unknown Verified 01/28/25 13:41 allergy reaction diphenhydramine (From AdvReac Agitated Verified 01/31/25 10:36 Benadryl) doxycycline AdvReac Nausea Verified 01/28/25 13:41 Exam Data for Last 24 hours Vital signs and Labs for Last 24 Hours: Pulse Resp BP Pulse Ox O2 Del Method O2 Flow Rate 60 14 162/67 H 100 Room Air 3 01/31/25 14:30 01/31/25 14:30 01/31/25 14:30 01/31/25 14:30 01/31/25 14:30 01/31/25 13:45 Laboratory Results - last 24 hr 01/31/25 10:28: WBC 13.2 H, RBC 4.87, Hgb 14.1, Hct 45.0, MCV 92.4, MCH 29.0, MCHC 31.3 L, RDW 12.7, Plt Count 285, MPV 9.3, Neut % (Auto) 57.6, Lymph % (Auto) 25.7, [place] % (Auto) 8.5, Eos % (Auto) 7.3, Baso % (Auto) 0.5, Neut # (Auto) 7.6, Lymph # (Auto) 3.4, [place] # (Auto) 1.1 H, Eos # (Auto) 1.0 H, Baso # (Auto) 0.1, Sodium 140, Potassium 4.5, Chloride 99, Carbon Dioxide 31 H, Anion Gap 14.5, BUN 27 H, Creatinine 1.00, Estimated Creat Clear 32, Estimated GFR 53 L, Est GFR ( Amer) 64, Glucose 143 H, Calcium 9.4 I & O for Last 24 hours: Intake & Output 01/29/25 01/30/25 01/31/25 02/01/25 11:59 11:59 11:59 11:59 Weight 106 lb Constitutional Constitutional: no acute distress *Routine HEENT Exam Head: Present normocephalic and atraumatic Eye: Present EOMI ENT: Present mucous membranes dry *Routine Neck Exam Neck: Present supple and full ROM *Routine Respiratory Exam Respiratory: Present CTA bilaterally *Routine Cardiovascular Exam Cardiovascular: Present RRR *Routine Abdominal Exam Abdominal: Present soft; Absent normoactive bowel sounds or tenderness *Routine Rectal Exam Rectal:: deferred *Routine Genitalia Exam Genitalia:: deferred *Routine Extremities Exam Extremities: Absent edema *Routine Skin Exam Skin: Present intact *Routine Neurological Exam Neurological: Present altered mental status H&P: Result Impressions ANGIOGRAPHIC RESULTS IMPRESSION Successful antegrade revascularization of the right common femoral artery right superficial femoral artery and right popliteal artery with drug-coated balloon angioplasty followed by additional bare-metal self-expanding stent deployment to the distal popliteal artery. T PLAN 1. Patient is a high risk for bleeding and should be admitted overnight with close one-on-one nursing for the first 6 hours following sheath pull 2. Risk factor modification for Jo vascular disease 3. Consultation with orthopedic surgery or foot surgery services to determine if amputation is required Assessment and Plan *Assessment and plan (1) Pain in right lower leg: Status: Acute Category: Medical Code(s): M79.661 - Pain in right lower leg (2) Claudication: Status: Acute Category: Medical Code(s): I73.9 - Peripheral vascular disease, unspecified (3) Hyperlipemia: Status: Acute Qualifiers: Hyperlipidemia type: mixed hyperlipidemia Qualified Code(s): E78.2 - Mixed hyperlipidemia Category: Medical Code(s): E78.5 - Hyperlipidemia, unspecified (4) HTN (hypertension): Status: Acute Qualifiers: Hypertension type: essential hypertension Qualified Code(s): I10 - Essential (primary) hypertension Category: Medical Code(s): I10 - Essential (primary) hypertension (5) Paroxysmal atrial fibrillation: Status: Acute Category: Medical Code(s): I48.0 - Paroxysmal atrial fibrillation (6) Peripheral arterial disease: Status: Acute Category: Medical Code(s): I73.9 - Peripheral vascular disease, unspecified (7) CAD (coronary artery disease): Status: Acute Qualifiers: Associated angina: with other forms of angina Coronary Disease- Associated Artery/Lesion type: [place] artery [place] vs. 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: Status: Acute Category: Medical Code(s): Z79.01 - shelter (current) use of anticoagulants (9) Diabetes mellitus: Status: Acute Qualifiers: Diabetes mellitus complication detail: with peripheral angiopathy without gangrene Diabetes mellitus complication status: with circulatory complication 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 Dr. Montanez entry- Saw patient, agree with above note.
[2025-01-31] MEDS: HYDROMORPHONE 2MG/ML SYRINGE 0.5 MG IV (15:17)
[2025-01-31] MEDS: IOPAMIDOL-370 (76%);100ML BOTTLE 150 ML IV (15:36)
[2025-01-31 15:37] LABS: CATHL Activated Clotting Time 301 SEC (74-125)
[2025-01-31 16:26] LABS: Microscopic, Urine URINE MICROSCOPIC (MICROSCOPIC)
[2025-01-31 16:39] LABS: Appearance,Urine CLEAR (Clear); Bilirubin,Urine Negative (Negative); Blood, Urine Negative (Negative); Color,Urine YELLOW (Yellow); Glucose,Urine (UA) Negative (Negative); Ketones,Urine Negative (Negative); Leukocyte Esterase,Urine Negative (Negative); Nitrate,Urine Negative (Negative); Protein,Urine Negative (Negative); Specific Gravity, Urine 1.015 (1.005-1.030)
[2025-01-31 16:40] LABS: Hyaline Casts,Urine OCC #/lpf (0)
--- NOTE | 2025-01-31 18:46 | PC.NURSE ---
i reassessed pt post surgery. dressing to r groin is still c/d/i. dano lower extremities are warm. she denies any pain. will remain laying flat until 2099.
[2025-02-01] VITALS: PULSE 60
[2025-02-01 01:54] LABS: POC Glucose,Bedside 103 (70-110)
[2025-02-01 04:00] VITALS: BP 134/55; PULSE 69; PULSE 70; RESP 18; TEMP 36.8; O2SAT 94; BMI 25.4
--- NOTE | 2025-02-01 04:55 | PC.NURSE ---
Family at bedside. V/s, disoriented to time, RA. PT has a pepe cath, output measured. Pt had a RLE stent placed. Cath site monitored for drainage. Extremity pulses +2, warm to the touch, skin pink, pt denied pain. Pt denied numbness, tingling, or tenderness. Pt laid flat until 2100, then HOB was increased by 15 degrees per pt's request. No acute events to report. Plan of care ongoing.
[2025-02-01 06:32] LABS: POC Glucose,Bedside 88 (70-110)
[2025-02-01 06:45] LABS: Basophils % 0.3 % (0.1-2.0); Eosinophils # 0.5 K/mm3 (0.0-0.4); Eosinophils % 4.9 % (0.1-12.0); Lymphocytes # 2.6 K/mm3 (0.7-4.5); Mean Corpuscular HGB Conc 32.4 g/dL (31.8-35.4); Mean Corpuscular Hemoglobin 29.6 pg (27.0-31.2); Mean Corpuscular Volume 91.3 fl (81-99); Mean Platelet Volume 9.7 fl (7.4-10.4); Monocytes # 0.9 K/mm3 (0.1-1.0); Monocytes % 8.7 % (1.7-9.3); Neutrophils # 6.4 K/mm3 (1.8-7.8); Neutrophils % 60.9 % (37.0-80.0); Nucleated Red Blood Cells # 0 10^3/uL; Nucleated Red Blood Cells % 0 %; Platelet Count 243 K/mm3 (142-424); Red Blood Count 4.16 M/mm3 (4.20-5.40); Red Cell Distribution Width 12.6 % (11.5-17.5); Red Cell Distribution Width-SD 41.8 fL; White Blood Count 10.5 K/mm3 (4.8-10.8)
[2025-02-01 06:53] LABS: Chloride 103 mmol/L (98-107); Potassium 4.1 mmoL/L (3.5-5.1); Sodium 138 mmol/L (136-145)
[2025-02-01 06:56] LABS: Anion Gap 13.1 mEq/L (5-15); Blood Urea Nitrogen 22 mg/dl (7-17); Calcium 8.7 mg/dl (8.4-10.2); Carbon Dioxide 26 mmol/L (22.0-30.0); Creatinine Clearance Estimated 34 mL/min (50-200); Estimated Glomerular Filt Rate 69 ml/min (>60); GFR (African American) 83 ML/MIN (>60); Glucose 86 mg/dl (74-100)
[2025-02-01 07:09] LABS: Hemoglobin 12.2 g/dL (12.2-16.2)
[2025-02-01 08:00] VITALS: BP 145/57; PULSE 70; RESP 16; TEMP 37.1; O2SAT 93
--- NOTE | 2025-02-01 08:17 | P.PN_ITS ---
Subjective *Date: 02/01/25 *Time: 08:37 Interval history: Patient is feeling better this am. She is more awake and alert. She has much less pain in her leg. She was able to sleep and has been eating. Medical Exam Vital signs and Labs for Last 24 Hours: Vital Signs Temp Pulse Pulse Resp BP Pulse Ox O2 Del Method 02/01/25 06:31 Room Air 02/01/25 05:00 Room Air 02/01/25 04:00 98.2 F 69 18 134/55 L 94 L Room Air 02/01/25 04:00 70 02/01/25 03:00 Room Air 02/01/25 01:00 Room Air 02/01/25 00:00 60 01/31/25 23:00 Room Air 01/31/25 22:00 97.6 F 67 16 152/62 H 94 L Room Air 01/31/25 21:00 Room Air 01/31/25 21:00 97.9 F 64 16 158/74 H 95 Room Air 01/31/25 20:31 97.6 F 63 16 152/77 H 95 Room Air 01/31/25 20:00 Room Air 01/31/25 20:00 70 01/31/25 19:31 97.6 F 59 L 16 122/62 95 Room Air 01/31/25 18:53 97.6 F 56 L 18 145/66 H 94 L Room Air 01/31/25 18:15 97.6 F 56 L 18 145/66 H 94 L Room Air 01/31/25 17:45 58 L 16 147/67 H 95 01/31/25 17:15 60 18 147/70 H 96 01/31/25 17:00 Room Air 01/31/25 16:45 97.4 F L 60 18 150/62 H 94 L 01/31/25 16:15 60 16 150/67 H 92 L 01/31/25 16:00 57 L 16 133/62 96 Room Air 01/31/25 16:00 Room Air 01/31/25 15:45 96.5 F L 58 L 16 125/51 L 95 Room Air 01/31/25 15:15 60 16 118/62 100 Room Air 01/31/25 15:10 60 16 88/46 L 100 Room Air 01/31/25 15:05 59 L 14 98/55 L 92 L Room Air 01/31/25 15:00 Room Air 01/31/25 15:00 61 14 82/45 L 94 L Room Air 01/31/25 14:57 61 14 83/36 L 95 Room Air 01/31/25 14:53 60 18 102/50 L 100 Room Air 01/31/25 14:51 60 16 102/50 L 100 Room Air 01/31/25 14:48 60 16 149/60 H 100 Room Air 01/31/25 14:45 60 16 174/70 H 100 Room Air 01/31/25 14:42 60 14 167/86 H 100 Room Air 01/31/25 14:39 60 14 163/97 H 100 Room Air 01/31/25 14:36 60 16 176/75 H 100 Room Air 01/31/25 14:33 60 14 164/66 H 100 Room Air 01/31/25 14:30 60 14 162/67 H 100 Room Air 01/31/25 14:27 60 18 158/69 H 100 Room Air 01/31/25 14:24 60 16 172/79 H 100 Room Air 01/31/25 14:21 60 16 168/69 H 100 Room Air 01/31/25 14:18 60 18 185/89 H 100 Room Air 01/31/25 14:15 60 16 177/78 H 100 Room Air 01/31/25 14:12 61 16 179/74 H 100 Room Air 01/31/25 14:09 60 16 158/70 H 100 Room Air 01/31/25 14:06 60 16 180/77 H 99 Room Air 01/31/25 14:03 60 16 177/71 H 100 Room Air 01/31/25 14:00 60 14 172/80 H 100 Room Air 01/31/25 13:57 60 14 176/70 H 100 Room Air 01/31/25 13:54 60 16 175/73 H 100 Room Air 01/31/25 13:51 60 16 172/71 H 100 Room Air 01/31/25 13:48 60 14 147/71 H 100 Room Air 01/31/25 13:45 60 14 156/74 H 100 Nasal Cannula 01/31/25 13:42 60 18 144/72 H 100 Nasal Cannula 01/31/25 13:36 60 16 147/70 H 100 Nasal Cannula 01/31/25 13:33 60 16 156/67 H 100 Nasal Cannula 01/31/25 13:30 60 16 152/70 H 100 Nasal Cannula 01/31/25 13:27 61 16 166/65 H 100 Nasal Cannula 01/31/25 13:25 60 20 166/91 H 100 Room Air 01/31/25 13:24 60 16 166/91 H 100 Nasal Cannula 01/31/25 10:31 62 18 169/70 H 94 L Room Air 01/31/25 10:31 62 O2 Del Method O2 Flow Rate 02/01/25 06:31 02/01/25 05:00 02/01/25 04:00 02/01/25 04:00 02/01/25 03:00 02/01/25 01:00 02/01/25 00:00 01/31/25 23:00 01/31/25 22:00 01/31/25 21:00 01/31/25 21:00 01/31/25 20:31 01/31/25 20:00 01/31/25 20:00 01/31/25 19:31 01/31/25 18:53 01/31/25 18:15 01/31/25 17:45 01/31/25 17:15 01/31/25 17:00 01/31/25 16:45 01/31/25 16:15 01/31/25 16:00 01/31/25 16:00 01/31/25 15:45 01/31/25 15:15 01/31/25 15:10 01/31/25 15:05 01/31/25 15:00 01/31/25 15:00 01/31/25 14:57 01/31/25 14:53 01/31/25 14:51 01/31/25 14:48 01/31/25 14:45 01/31/25 14:42 01/31/25 14:39 01/31/25 14:36 01/31/25 14:33 01/31/25 14:30 01/31/25 14:27 01/31/25 14:24 01/31/25 14:21 01/31/25 14:18 01/31/25 14:15 01/31/25 14:12 01/31/25 14:09 01/31/25 14:06 01/31/25 14:03 01/31/25 14:00 01/31/25 13:57 01/31/25 13:54 01/31/25 13:51 01/31/25 13:48 01/31/25 13:45 3 01/31/25 13:42 3 01/31/25 13:36 3 01/31/25 13:33 3 01/31/25 13:30 3 01/31/25 13:27 3 01/31/25 13:25 01/31/25 13:24 3 01/31/25 10:31 Room Air 01/31/25 10:31 Intake and Output 01/31/25 02/01/25 02/01/25 19:59 03:59 11:59 Intake Total 240 / 240 Output Total 450 / 450 Balance 240 / -210 -450 / -210 Intake: Intake, Oral Amount 240 / 240 Output: Output, Urine Amount 450 / 450 Other: Weight 110 lb 3 oz Patient Weight 02/01/25 11:59 Weight 110 lb 3 oz Laboratory Results - last 24 hr 01/31/25 10:28: WBC 13.2 H, RBC 4.87, Hgb 14.1, Hct 45.0, MCV 92.4, MCH 29.0, MCHC 31.3 L, RDW 12.7, Plt Count 285, MPV 9.3, Neut % (Auto) 57.6, Lymph % (Auto) 25.7, [place] % (Auto) 8.5, Eos % (Auto) 7.3, Baso % (Auto) 0.5, Neut # (Auto) 7.6, Lymph # (Auto) 3.4, [place] # (Auto) 1.1 H, Eos # (Auto) 1.0 H, Baso # (Auto) 0.1, Sodium 140, Potassium 4.5, Chloride 99, Carbon Dioxide 31 H, Anion Gap 14.5, BUN 27 H, Creatinine 1.00, Estimated Creat Clear 32, Estimated GFR 53 L, Est GFR ( Amer) 64, Glucose 143 H, Calcium 9.4 01/31/25 12:54: Activated Clotting Time 301 H* 01/31/25 15:12: Urine Color Cancelled 01/31/25 15:12: Urine Color Yellow, Urine Appearance Cancelled 01/31/25 15:12: Urine Appearance Clear, Urine pH Cancelled 01/31/25 15:12: Urine pH 7.0, Ur Specific [place] Cancelled 01/31/25 15:12: Ur Specific [place] 1.015, Urine Protein Cancelled 01/31/25 15:12: Urine Protein Negative, Urine Glucose (UA) Cancelled 01/31/25 15:12: Urine Glucose (UA) Negative, Urine Ketones Cancelled 01/31/25 15:12: Urine Ketones Negative, Urine Blood Cancelled 01/31/25 15:12: Urine Blood Negative, Urine Nitrate Cancelled 01/31/25 15:12: Urine Nitrate Negative, Urine Bilirubin Cancelled 01/31/25 15:12: Urine Bilirubin Negative, Urine Urobilinogen Cancelled 01/31/25 15:12: Urine Urobilinogen 1.0, Ur Leukocyte Esterase Cancelled 01/31/25 15:12: Ur Leukocyte Esterase Negative, Urine RBC Cancelled 01/31/25 15:12: Urine RBC None, Urine WBC Cancelled 01/31/25 15:12: Urine WBC None, Ur Squamous Epith Cells Cancelled 01/31/25 15:12: Ur Squamous Epith Cells None, Ur Transition Epith Cell Cancelled, Ur Renal Epithelial Cell Cancelled, Calcium Carbonate Cryst Cancelled, Calcium Phosphate Cryst Cancelled, Calcium Oxalate Crystal Cancelled, Cystine Crystals Cancelled, Uric Acid Crystals Cancelled, Triple Phos Crystals Cancelled, Tyrosine Crystals Cancelled, Other Crystals Cancelled, Amorphous Sediment Cancelled, Other Sediment Cancelled, Urine Bacteria Cancelled 01/31/25 15:12: Urine Bacteria None, Fatty Casts Cancelled, Hyaline Casts Cancelled 01/31/25 15:12: Hyaline Casts Occ, Fine Granular Casts Cancelled, Coarse Granular Casts Cancelled, Waxy Casts Cancelled, RBC Casts Cancelled, WBC Casts Cancelled, Other Casts Cancelled, Urine Mucus Cancelled, Urine Trichomonas Cancelled, Urine Yeast Cancelled, Urine Sperm Cancelled 02/01/25 01:47: POC Glucose 103 02/01/25 05:37: WBC 10.5, RBC 4.16 L, Hgb 12.2 D, Hct 38.0, MCV 91.3, MCH 29.6, MCHC 32.4, RDW 12.6, Plt Count 243, MPV 9.7, Neut % (Auto) 60.9, Lymph % (Auto) 25.0, [place] % (Auto) 8.7, Eos % (Auto) 4.9, Baso % (Auto) 0.3, Neut # (Auto) 6.4, Lymph # (Auto) 2.6, [facility] # (Auto) 0.9, Eos # (Auto) 0.5 H, Baso # (Auto) 0.0, Sodium 138, Potassium 4.1, Chloride 103, Carbon Dioxide 26, Anion Gap 13.1, BUN 22 H, Creatinine 0.80, Estimated Creat Clear 34, Estimated GFR 69, Est GFR ( Amer) 83 D, Glucose 86 D, Calcium 8.7 02/01/25 06:20: POC Glucose 88 I & O for Labs for Last 24 Hours: Intake & Output 01/29/25 01/30/25 01/31/25 02/01/25 11:59 11:59 11:59 11:59 Intake Total 240 / 240 Output Total 450 / 450 Balance -210 / -210 Weight 106 lb 110 lb 3 oz Constitutional: Present no acute distress Respiratory: Present decreased breath sounds and CTA bilaterally Cardiac: Present Reg Rate and Rhythm GI: Present soft; Absent tenderness Extremities: Absent tenderness or edema Skin: Present intact Neuro: Present alert and awake Assessment and Plan *Assessment and plan (1) Pain in right lower leg: Status: Acute Category: Medical Code(s): M79.661 - Pain in right lower leg (2) Claudication: Status: Acute Category: Medical Code(s): I73.9 - Peripheral vascular disease, unspecified (3) Hyperlipemia: Status: Acute Qualifiers: Hyperlipidemia type: mixed hyperlipidemia Qualified Code(s): E78.2 - Mixed hyperlipidemia Category: Medical Code(s): E78.5 - Hyperlipidemia, unspecified (4) HTN (hypertension): Status: Acute Qualifiers: Hypertension type: essential hypertension Qualified Code(s): I10 - Essential (primary) hypertension Category: Medical Code(s): I10 - Essential (primary) hypertension (5) Paroxysmal atrial fibrillation: Status: Acute Category: Medical Code(s): I48.0 - Paroxysmal atrial fibrillation (6) Peripheral arterial disease: Status: Acute Category: Medical Code(s): I73.9 - Peripheral vascular disease, unspecified (7) CAD (coronary artery disease): Status: Acute Qualifiers: Associated angina: with other forms of angina Coronary Disease-Associa rachael Artery/Lesion type: [place] artery [place] vs. transplanted heart: [place] heart Qualified Code(s): I25.118 - Atherosclerotic heart disease of [place] coronary artery with other forms of angina pectoris Category: Medical Code(s): I25.10 - Atherosclerotic heart disease of [place] coronary artery without angina pectoris (8) longterm current use of anticoagulant therapy: Status: Acute Category: Medical Code(s): Z79.01 - continuous churn buttermaker (current) use of anticoagulants (9) Diabetes mellitus: Status: Acute Qualifiers: Diabetes mellitus complication detail: with peripheral angiopathy without gangrene Diabetes mellitus complication status: with circulatory complication Diabetes mellitus senior living insulin use: without senior living use Di abetes mellitus type: type 2 Qualified Code(s): E11.51 - Type 2 diabetes mellitus with diabetic peripheral angiopathy without gangrene Category: Medical Code(s): E11.9 - Type 2 diabetes mellitus without complications (10) Chronic HFrEF (heart failure with reduced ejection fraction): Status: Acute Category: Medical Code(s): I50.22 - Chronic systolic (congestive) heart failure Plan Patient is doing well. Cardiology to follow. Can likely be discharged today. Dr. Montanez entry - Saw patient, agree with above note. Remove pepe now.
[2025-02-01] MEDS: GABAPENTIN 300MG CAPSULE 300 MG PO (09:35)
[2025-02-01 09:36] VITALS: PULSE 70
[2025-02-01] MEDS: RIVAROXABAN 2.5MG TABLET 2.5 MG PO (09:36)
[2025-02-01] MEDS: CLOPIDOGREL 75MG TAB 75 MG PO (09:36)
[2025-02-01] MEDS: CARVEDILOL 6.25MG TABLET 6.25 MG PO (09:36)
[2025-02-01] MEDS: DIGOXIN 0.125MG TABLET 125 MCG PO (09:36)
[2025-02-01 11:47] LABS: POC Glucose,Bedside 89 (70-110)
--- NOTE | 2025-02-01 12:33 | EXP.CARD.CON ---
History of Present Illness History of Present Illness Consult date: 02/01/25 Requesting physician: Alexis Montanez Consult reason: known to you Chief complaint: RLE pain History of present illness: 84-year-old white female established patient of our office with history of paroxysmal A-fib status post permanent pacemaker implant, nonobstructive coronary artery disease, PAD s/p angioplasty 2021, HFrEF with EF 25%, diabetes. Patient recently presented to the office with worsening right lower extremity claudication pain which developed into rest pain associated with discoloration so she was set up for urgent peripheral intervention. Yesterday she had a successful and extensive revascularization of right lower extremity including her right common femoral artery, superficial femoral artery, right popliteal artery. She was kept overnight for observation of bleeding and to assess her outcome. This morning she reports significant improvement in her symptoms, she has a warm right lower extremity with a good pulse. Her right groin cath site is normal on inspection and palpation and her labs and vitals are unremarkable. She feels ready for discharge home and has family here to help her. [facility] Disclaimer: The information contained in this section may have been updated after the patient was seen, as this information can be updated by other users. Medical History Claudication Hyperlipemia HTN (hypertension) Paroxysmal atrial fibrillation Peripheral arterial disease CAD (coronary artery disease) Pain in right lower leg Intracranial arteriosclerosis Pneumonia UTI (urinary tract infection) Amputated toe of right foot Cellulitis Fracture of cuneiform bone of foot Acquired pes planus of right foot Osteomyelitis of toe of right foot Postoperative wound dehiscence Charcot's joint of right foot Postoperative dehiscence of skin wound Gangrene of toe Gangrene of toe of right foot Cough Ischemic ulcer of toe of right foot, limited to breakdown of skin Ischemic ulcer of toe of right foot Real time reverse transcriptase PCR positive for COVID-19 virus Peripheral vascular disease of lower extremity Pre-ulcerative calluses Pneumonia Peripheral arterial disease Abnormal ankle brachial index (MICHELE) Cardiac pacemaker in situ Acute bronchitis Left bundle branch block (LBBB) on electrocardiogram Tachy-jose francisco syndrome Near syncope Elevated blood pressure reading Anxiety Diabetic foot Keratosis Callus of foot Diabetic ulcer of right fifth toe Dry gangrene Skin ulcer of second toe of left foot with fat layer exposed Ulcer of left great toe due to diabetes mellitus Primary osteoarthritis of both feet Encounter for wound care Overweight (BMI 25.0-29.9) Type 2 diabetes mellitus without complication, without long-term current use of insulin Acquired hammertoes of both feet Osteomyelitis of toe Left foot infection Nail dystrophy Onychogryphosis Lower limb ischemia PAF (paroxysmal atrial fibrillation) PAD (peripheral artery disease) Leg wound, right Leg edema, right COPD (chronic obstructive pulmonary disease) Diabetes mellitus Rapid atrial fibrillation Pulmonary HTN Diastolic dysfunction Mitral regurgitation meterman current use of anticoagulant therapy A-fib Abnormal ECG Fatigue Dyspnea Atrial fibrillation with RVR Asthma with exacerbation Acute exacerbation of chronic obstructive airways disease CHF (congestive heart failure) Asthma Abnormal ankle brachial index (MICHELE) Abnormal electrocardiography Absence of posterior tibial pulse Anxiety Atrial fibrillation with rapid ventricular response Body mass index (BMI) of 25.0 to 29.9 Callus of foot Chronic obstructive pulmonary disease Coronary artery disease Diabetes mellitus Diabetic foot Diastolic dysfunction Dry gangrene Dystrophia unguium Heart murmur Hyperlipidemia Hypertension Infection of left foot Intermittent claudication Ischemia of lower extremity Keratosis Left bundle branch block (LBBB) determined by electrocardiography Leg wound, right meterman current use of anticoagulant therapy Mitral valve insufficiency Onychogryposis Osteomyelitis of toe Osteopenia determined by x-ray Pneumonia Pre-syncope Presence of cardiac pacemaker Primary osteoarthritis of both feet Pulmonary hypertension Rapid atrial fibrillation Skin ulcer of second toe of left foot with fat layer exposed Systemic inflammatory response syndrome (SIRS) Tachycardia-bradycardia Ulcer of left great toe due to diabetes mellitus Acquired hammer toes of both feet Ulcer of right fifth toe due to diabetes mellitus Memory loss Abnormal findings on diagnostic imaging of heart and coronary circulation Chronic HFrEF (heart failure with reduced ejection fraction) Claudication Surgical History S/P amputation of lesser toe History of complete ray amputation of fourth toe of right foot History of complete ray amputation of third toe of right foot Status post foot surgery Status post placement of cardiac pacemaker S/P peripheral artery angioplasty with stent placement History of amputation of toe History of tubal ligation History of nasal surgery S/P peripheral artery angioplasty with stent placement Status post placement of cardiac pacemaker Family History Other Coronary artery disease Diabetes Heart attack Social History Smoking Status: Never smoker alcohol intake: never substance use type: denies use current occupational status: retired Travel in the last 8 weeks: Inside the [place] household members: none housing: house current occupation: Works at [employer] current occupational exposures/hazards: No caffeine: Yes Have you lived/traveled outside [place] in past 30 days?: No Contact w/someone who lives/traveled outside [place] past 30 days?: No Exposure to someone with infectious disease in past 14 days?: No Do you have a fever (greater than 100.4 F or 38 C)?: No Have you tested positive for COVID-19: No Exposed to someone with COVID-19 in past 14 days?: No Do you have a sore throat?: No Do you have a cough?: No Do you have any weakness?: No Do you have any diarrhea?: No Are you experiencing any unusual bleeding?: No Do you have any muscle aches/pain?: No Do you have any abdominal pain?: No Are you experiencing loss of taste or smell?: No Review of Systems Constitutional Constitutional: Denies fatigue and Denies weakness Eyes Eyes: Denies loss of vision ENT Ears, Nose, Mouth, and Throat: Denies hearing loss and Denies vertigo *Cardiovascular Cardiovascular: Denies chest pain, Denies dyspnea and Denies syncope *Respiratory Respiratory: Denies cough and Denies dyspnea *Gastrointestinal Gastrointestinal: Denies change in stool character, Denies nausea and Denies vomiting *Musculoskeletal Musculoskeletal: Denies muscle weakness Integumentary/Breasts Skin/Breast: Denies changing lesions *Neurologic Neurologic: Denies loss of vision, Denies syncope, Denies vertigo and Denies weakness Endocrine Endocrine: Denies fatigue Exam Data for Last 24 hours Vital signs and Labs for Last 24 Hours: Temp Pulse Resp BP Pulse Ox O2 Del Method O2 Flow Rate 98.7 F 70 16 145/57 H 93 L Room Air 3 02/01/25 08:00 02/01/25 09:36 02/01/25 08:00 02/01/25 08:00 02/01/25 08:00 02/01/25 11:00 01/31/25 13:45 Laboratory Results - last 24 hr 01/31/25 12:54: Activated Clotting Time 301 H* 01/31/25 15:12: Urine Color Cancelled 01/31/25 15:12: Urine Color Yellow, Urine Appearance Cancelled 01/31/25 15:12: Urine Appearance Clear, Urine pH Cancelled 01/31/25 15:12: Urine pH 7.0, Ur Specific [place] Cancelled 01/31/25 15:12: Ur Specific [place] 1.015, Urine Protein Cancelled 01/31/25 15:12: Urine Protein Negative, Urine Glucose (UA) Cancelled 01/31/25 15:12: Urine Glucose (UA) Negative, Urine Ketones Cancelled 01/31/25 15:12: Urine Ketones Negative, Urine Blood Cancelled 01/31/25 15:12: Urine Blood Negative, Urine Nitrate Cancelled 01/31/25 15:12: Urine Nitrate Negative, Urine Bilirubin Cancelled 01/31/25 15:12: Urine Bilirubin Negative, Urine Urobilinogen Cancelled 01/31/25 15:12: Urine Urobilinogen 1.0, Ur Leukocyte Esterase Cancelled 01/31/25 15:12: Ur Leukocyte Esterase Negative, Urine RBC Cancelled 01/31/25 15:12: Urine RBC None, Urine WBC Cancelled 01/31/25 15:12: Urine WBC None, Ur Squamous Epith Cells Cancelled 01/31/25 15:12: Ur Squamous Epith Cells None, Ur Transition Epith Cell Cancelled, Ur Renal Epithelial Cell Cancelled, Calcium Carbonate Cryst Cancelled, Calcium Phosphate Cryst Cancelled, Calcium Oxalate Crystal Cancelled, Cystine Crystals Cancelled, Uric Acid Crystals Cancelled, Triple Phos Crystals Cancelled, Tyrosine Crystals Cancelled, Other Crystals Cancelled, Amorphous Sediment Cancelled, Other Sediment Cancelled, Urine Bacteria Cancelled 01/31/25 15:12: Urine Bacteria None, Fatty Casts Cancelled, Hyaline Casts Cancelled 01/31/25 15:12: Hyaline Casts Occ, Fine Granular Casts Cancelled, Coarse Granular Casts Cancelled, Waxy Casts Cancelled, RBC Casts Cancelled, WBC Casts Cancelled, Other Casts Cancelled, Urine Mucus Cancelled, Urine Trichomonas Cancelled, Urine Yeast Cancelled, Urine Sperm Cancelled 02/01/25 01:47: POC Glucose 103 02/01/25 05:37: WBC 10.5, RBC 4.16 L, Hgb 12.2 D, Hct 38.0, MCV 91.3, MCH 29.6, MCHC 32.4, RDW 12.6, Plt Count 243, MPV 9.7, Neut % (Auto) 60.9, Lymph % (Auto) 25.0, Williams % (Auto) 8.7, Eos % (Auto) 4.9, Baso % (Auto) 0.3, Neut # (Auto) 6.4, Lymph # (Auto) 2.6, Williams # (Auto) 0.9, Eos # (Auto) 0.5 H, Baso # (Auto) 0.0, Sodium 138, Potassium 4.1, Chloride 103, Carbon Dioxide 26, Anion Gap 13.1, BUN 22 H, Creatinine 0.80, Estimated Creat Clear 34, Estimated GFR 69, Est GFR ( Amer) 83 D, Glucose 86 D, Calcium 8.7 02/01/25 06:20: POC Glucose 88 02/01/25 11:38: POC Glucose 89 I & O for Last 24 hours: Intake & Output 01/29/25 01/30/25 01/31/25 02/01/25 23:59 23:59 23:59 23:59 Intake Total 400 / 400 Output Total 650 / 650 Balance -250 / -250 Weight 106 lb 110 lb 3 oz Constitutional Constitutional: no acute distress and cooperative *Routine HEENT Exam Eye: Present PERRL *Routine Respiratory Exam Respiratory: Present CTA bilaterally; Absent accessory muscle use, wheezes or crackles *Routine Cardiovascular Exam Cardiovascular: Present RRR, Normal S1 and Normal S2; Absent murmur, gallop or rubs Comments: Right lower extremity normal on inspection and palpation, she has a good DP and PT pulse, no tenderness to the muscle, right groin cath site normal on inspection and palpation *Routine Abdominal Exam Abdominal: Present soft; Absent tenderness *Routine Extremities Exam Extremities: Present pulses intact; Absent cyanosis or edema *Routine Skin Exam Skin: Present intact; Absent erythema or wounds *Routine Neurological Exam Neurological: Present alert and oriented X3 Routine Psychiatric Exam Psychiatric: Present cooperative Meds Home Medications and Allergies Home Medications ?Medication ?Instructions ?Recorded ?Confirmed ?Type pravastatin 40 mg tablet 40 mg PO HS 03/31/18 01/31/25 History budesonide-formoterol HFA 160 2 puffs inhalation BID 08/16/19 01/31/25 History mcg-4.5 mcg/actuation aerosol inhaler (Symbicort) gabapentin 300 mg capsule 300 mg PO BID 01/05/22 01/31/25 History apixaban 2.5 mg tablet (Eliquis) 2.5 mg PO BID 11/02/24 01/31/25 History digoxin 125 mcg (0.125 mg) tablet 125 mcg PO DAILY 11/02/24 01/31/25 History carvedilol 6.25 mg tablet (Coreg) 6.25 mg PO BID #180 tabs 11/20/24 01/31/25 Rx valsartan 40 mg tablet 40 mg PO BID #180 tabs 11/20/24 01/31/25 Rx clopidogrel 75 mg tablet 75 mg PO DAILY 01/31/25 01/31/25 History furosemide 20 mg tablet 20 mg PO DAILYP PRN Edema 01/31/25 01/31/25 History metformin 500 mg tablet,extended 500 mg PO BID 01/31/25 01/31/25 History release 24 hr New Prescriptions to Start Prescriptions: Allergies Allergy/AdvReac Type Severity Reaction Status Date / Time codeine (CODEINE) Allergy Unknown Unknown Verified 01/28/25 13:41 allergy reaction morphine Allergy Unknown Unknown Verified 01/28/25 13:41 allergy reaction diphenhydramine (From AdvReac Agitated Verified 01/31/25 10:36 Benadryl) doxycycline AdvReac Nausea Verified 01/28/25 13:41 Assessment and Plan *Assessment and plan (1) Peripheral arterial disease: Status: Acute Category: Medical Code(s): I73.9 - Peripheral vascular disease, unspecified (2) Paroxysmal atrial fibrillation: Status: Acute Category: Medical Code(s): I48.0 - Paroxysmal atrial fibrillation (3) Chronic HFrEF (heart failure with reduced ejection fraction): Status: Acute Category: Medical Code(s): I50.22 - Chronic systolic (congestive) heart failure (4) Type 2 diabetes mellitus: Status: Acute Qualifiers: Diabetes mellitus shelter insulin use: without manager long term care use Diabetes mellitus complication status: with hyperglycemia Qualified Code(s): E11.65 - Type 2 diabetes mellitus with hyperglycemia Category: Medical Code(s): E11.9 - Type 2 diabetes mellitus without complications (5) Claudication: Status: Acute Category: Medical Code(s): I73.9 - Peripheral vascular disease, unspecified Plan PAD status post successful RLE PCI 01/31 - Extensive revascularization right lower extremity as noted above - DC home with Eliquis and, Plavix, statin. Do not add aspirin per Dr. Chadwick - Due to stent in right popliteal artery, patient has been advised not to bend her leg other than for ambulation for 2 weeks so as to avoid kinking of the stent CAD HFrEF PAF -Continue home meds Patient is CV stable. I have discussed the case with the hospitalist. Patient to follow-up in our clinic next week.
--- NOTE | 2025-02-05 13:24 | SW/DCPLANNER ---
Phoned Patient x2. Left name and call back number. Moe Rodriguez
--- NOTE | 2025-02-07 16:06 | P.DS_ITS ---
General Admission date:: 01/31/25 Discharge date: 02/01/25 HPI HPI HPI: Ms. Zamora is an 84yo female who was seen in the cardiology office on 01/28/25. She had woken up with worsening pain in her right lower extremity. Her toes appeared discolored. They had originally ordered a CTA of the abdomen/femoral but cancelled this and scheduled a right iliofemoral runoff due to PAD and discolored lower extremity. This was performed today and she had successful antegrade revascularization of the right common femoral artery, right superficial femoral artery, and right popliteal artery. She also had a bare-metal self expanding stent deployed to the distal popliteal artery. Cardiology wanted her admitted overnight due to her high risk of bleeding. Hospital Course Hospital Course Hospital Course: The patient was taken to the [facility] and had successful antegrade revascularization of the right common femoral artery, right superficial femoral artery, and right popliteal artery. They felt she was high risk for bleeding and should be admitted with close one-on-one nursing for the first 6 hours following sheath pull. The patient did well overnight. She was much more awake and alert the next morning and had less pain in her leg. She was able to sleep and eat and it was felt she could be discharged home. She will follow-up with cardiology. Exam Data for Last 24 hours Vital signs and Labs for Last 24 Hours: Temp Pulse Resp BP Pulse Ox O2 Del Method O2 Flow Rate 98.7 F 70 16 145/57 H 93 L Room Air 3 02/01/25 08:00 02/01/25 09:36 02/01/25 08:00 02/01/25 08:00 02/01/25 08:00 02/01/25 11:00 01/31/25 13:45 Narrative: Constitutional Constitutional: no acute distress *Routine HEENT Exam Head: Present normocephalic and atraumatic Eye: Present EOMI ENT: Present mucous membranes dry *Routine Neck Exam Neck: Present supple and full ROM *Routine Respiratory Exam Respiratory: Present CTA bilaterally *Routine Cardiovascular Exam Cardiovascular: Present RRR *Routine Abdominal Exam Abdominal: Present soft; Absent normoactive bowel sounds or tenderness *Routine Rectal Exam Rectal:: deferred *Routine Genitalia Exam Genitalia:: deferred *Routine Extremities Exam Extremities: Absent edema *Routine Skin Exam Skin: Present intact *Routine Neurological Exam Neurological: Present altered mental status DS: Diagnosis Discharge Diagnosis (1) Peripheral arterial disease: Status: Acute Code(s): I73.9 - Peripheral vascular disease, unspecified (2) Paroxysmal atrial fibrillation: Status: Acute Code(s): I48.0 - Paroxysmal atrial fibrillation (3) Chronic HFrEF (heart failure with reduced ejection fraction): Status: Acute Code(s): I50.22 - Chronic systolic (congestive) heart failure (4) Type 2 diabetes mellitus: Status: Acute Code(s): E11.9 - Type 2 diabetes mellitus without complications Qualifiers: Diabetes mellitus detention insulin use: without detention use Diabetes mellitus complication status: with hyperglycemia Qualified Code(s): E11.65 - Type 2 diabetes mellitus with hyperglycemia (5) Claudication: Status: Acute Code(s): I73.9 - Peripheral vascular disease, unspecified Meds Home Medications and Allergies Home Medications ?Medication ?Instructions ?Recorded ?Confirmed ?Type pravastatin 40 mg tablet 40 mg PO HS 03/31/18 02/06/25 History budesonide-formoterol HFA 160 2 puffs inhalation BID 08/16/19 02/06/25 History mcg-4.5 mcg/actuation aerosol inhaler (Symbicort) gabapentin 300 mg capsule 300 mg PO BID 01/05/22 02/06/25 History apixaban 2.5 mg tablet (Eliquis) 2.5 mg PO BID 11/02/24 02/06/25 History digoxin 125 mcg (0.125 mg) tablet 125 mcg PO DAILY 11/02/24 02/06/25 History carvedilol 6.25 mg tablet (Coreg) 6.25 mg PO BID #180 tabs 11/20/24 02/06/25 Rx valsartan 40 mg tablet 40 mg PO BID #180 tabs 11/20/24 02/06/25 Rx clopidogrel 75 mg tablet 75 mg PO DAILY 01/31/25 02/06/25 History furosemide 20 mg tablet 20 mg PO DAILYP PRN Edema 01/31/25 02/06/25 History metformin 500 mg tablet,extended 500 mg PO BID 01/31/25 02/06/25 History release 24 hr New Prescriptions to Start Prescriptions: Allergies Allergy/AdvReac Type Severity Reaction Status Date / Time codeine (CODEINE) Allergy Unknown Unknown Verified 02/06/25 13:31 allergy reaction morphine Allergy Unknown Unknown Verified 02/06/25 13:31 allergy reaction fentanyl AdvReac Mild behavior Verified 02/06/25 13:48 changes diphenhydramine (From AdvReac Agitated Verified 02/06/25 13:31 Benadryl) doxycycline AdvReac Nausea Verified 02/06/25 13:31 Discharge Plan Disposition Patient Disposition: Home, Self-Care Condition: Fair Follow up Plan Follow up with: Alexis Montanez MD [Primary Care Provider] - 02/15/25 10:00 am Sage Chadwick MD [Staff Physician] - 02/06/25 1:15 pm Prescriptions/Medication Reconciliation: Continued gabapentin 300 mg capsule 300 mg PO BID carvedilol [Coreg] 6.25 mg tablet 6.25 mg PO BID Qty: 180 3RF Rx Instructions: must administer with a meal/food valsartan 40 mg tablet 40 mg PO BID Qty: 180 3RF pravastatin 40 MG tablet 40 mg PO HS budesonide-formoterol [Symbicort] 10.2 GM HFA aerosol inhaler 2 puffs inhalation BID digoxin 125 mcg (0.125 mg) tablet 125 mcg PO DAILY Eliquis 2.5 mg tablet 2.5 mg PO BID Patient Comments: TAKE 1 TABLET BY MOUTH TWICE DAILY FOR BLOOD THINNER clopidogrel 75 mg tablet 75 mg PO DAILY furosemide 20 mg tablet 20 mg PO DAILYP PRN (Reason: Edema) metformin 500 mg tablet extended release 24 hr 500 mg PO BID Problem Reconciliation Problems Reviewed?: Yes Patient Discharge Instructions ACTIVITY: Limited activity DIET: continue same diet Patient Instructions: DI for Peripheral Vascular (Arterial) Disease, Surgical Site Infection, Moderate Sedation, DI for Post-Surgical Bleeding Print Language: [place] Providers Primary Care Provider: Alexis Montanez Admit Provider: Sage Chadwick Attending Provider: Alexis Montanez
== END 2025-02-01 12:46 | disposition home or self-care (01) ==
LOC: 2ND 13:38
PROVIDERS: Admitting Provider Internal Medicine; PCP Family Medicine; Visit Provider Family Medicine
DX: I70.221 Atherosclerosis of native arteries of extremities with rest pain, right leg (principal); I77.1 Stricture of artery; I73.9 Peripheral vascular disease, unspecified; M79.661 Pain in right lower leg; E78.2 Mixed hyperlipidemia; I48.0 Paroxysmal atrial fibrillation; I25.118 Atherosclerotic heart disease of native coronary artery with other forms of angina pectoris; E11.51 Type 2 diabetes mellitus with diabetic peripheral angiopathy without gangrene; I50.22 Chronic systolic (congestive) heart failure; E11.65 Type 2 diabetes mellitus with hyperglycemia; I11.0 Hypertensive heart disease with heart failure; Z79.01 Long term (current) use of anticoagulants; Z88.5 Allergy status to narcotic agent; Z79.84 Long term (current) use of oral hypoglycemic drugs; Z79.51 Long term (current) use of inhaled steroids; Z95.0 Presence of cardiac pacemaker
CPT/HCPCS: 36415; 37226; 80048; 81001; 82962; 85025; 85347; 93971; 99152; 99153; C1725; C1769; C1876; C1894; G0378; J1171; J1644; J3010; Q9967

== ENCOUNTER 2025-02-04 10:58 | Outpatient (CLI) | payer MEDICARE, SELFPAY ==
[2025-02-04 11:25] LABS: Chloride 104 mmol/L (98-107)
[2025-02-04 11:26] LABS: Potassium 3.8 mmoL/L (3.5-5.1); Sodium 140 mmol/L (136-145)
[2025-02-04 11:28] LABS: Blood Urea Nitrogen 35 mg/dl (7-17); Estimated Glomerular Filt Rate 53 ml/min (>60); GFR (African American) 64 ML/MIN (>60)
[2025-02-04 11:29] LABS: Anion Gap 8.8 mEq/L (5-15); Carbon Dioxide 31 mmol/L (22.0-30.0); Glucose 251 mg/dl (74-100)
== END 2025-02-04 23:59 | disposition home or self-care (01) ==
LOC: LAB 10:59
PROVIDERS: PCP Family Medicine; Visit Provider Internal Medicine
DX: I73.9 Peripheral vascular disease, unspecified (principal)
CPT/HCPCS: 36415; 80048

== ENCOUNTER 2025-06-25 14:26 | Observation (INO) | payer MEDICARE, SELFPAY ==
[2025-06-25] VITALS (17 sets, daily range): BP systolic 142–207; BP diastolic 51–99; PULSE 55–84; RESP 15–20; TEMP 36.3–36.5; O2SAT 96–98; BMI 24.4
--- NOTE | 2025-06-25 10:43 | IR_ITS ---
APPROVED REPORT Patient Location: Outpatient PROCEDURES Left femoral artery antegrade arterial access Catheter placement in the left PT trunk Left PT trunk antegrade angiogram Catheter placement in the left popliteal artery Left popliteal artery antegrade angiogram Drug coated balloon angioplasty to the left popliteal artery and left superficial femoral artery Drug-coated balloon angioplasty to the left common femoral artery INDICATION Potter claudication class IV, Occluded distal left popliteal artery left superficial femoral artery and severely stenosed left common femoral artery, Peripheral artery disease Informed consent was obtained prior to the procedure. COMPLICATIONS NONE Estimated Blood Loss: LESS THAN 10 ML TECHNIQUE 1% lidocaine used anesthetize the left groin the left femoral artery was accessed via the Salinger technique and a 5 Persian sheath is placed in the left femoral artery under fluoroscopic guidance with advancement of an advantage wire past the occlusion in the left common femoral artery. Antegrade angiography was performed. Therapeutic heparin was administered and the wire was advanced under fluoroscopic guidance into the PT trunk. A trailblazer catheter was advanced and selective angiography of the PT trunk was performed to confirm placement in the true lumen. Following this a 5 mm x 250 mm drug-coated balloon was deployed at 10 codey for 3 minutes reducing the stenosis. An additional 5 mm x 200 mm drug-coated balloon was then deployed at 8 codey for 1 minute. An additional 5 mm x 80 mm drug-coated balloon was deployed at 12 codey for 3 minutes. Following this a 5 mm x 150 mm balloon was deployed in the proximal and distal segment all the way back to the left common femoral artery into the left superficial femoral artery and deployed at 15 codey for 1 minute. Excellent angiographic results were obtained with wide patency of the left common femoral left superficial femoral and left popliteal artery at the end of the procedure. At the end of procedure the apparatus was removed the sheath was removed and hemostasis was achieved using manual pressure patient was transferred to the postop putting in stable addition ANGIOGRAPHIC RESULTS The stent originates from the left external iliac artery throughout the common femoral artery and into the superficial femoral artery. Distally in the left common femoral artery the vessel is occluded and occluded throughout the SFA and popliteal artery. It reconstitutes at the pregeniculate level in the mid popliteal artery. 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 PLAN 1. Dual antiplatelet therapy 2. Recommend admission overnight due to antegrade stick and elderly patient with low body weight which puts her at increased risk for bleeding in the groin 3. Risk factor modification Electronically signed by : Sage Chadwick MD 06/25/2025 15:32:07
--- NOTE | 2025-06-25 10:57 | SUR.PREOP ---
called [facility] per pt to verify medications.
[2025-06-25 11:57] LABS: Hematocrit 42.1 % (37.0-47.0); Hemoglobin 13.7 g/dL (12.2-16.2); Immature Granulocytes % 0.4 %; Mean Corpuscular HGB Conc 32.5 g/dL (31.8-35.4); Mean Corpuscular Hemoglobin 29.4 pg (27.0-31.2); Mean Corpuscular Volume 90.3 fl (81-99); Nucleated Red Blood Cells % 0 %; Platelet Count 311 K/mm3 (142-424); Red Blood Count 4.66 M/mm3 (4.20-5.40); Red Cell Distribution Width-SD 42.3 fL; White Blood Count 12.5 K/mm3 (4.8-10.8)
[2025-06-25 11:59] LABS: Chloride 101 mmol/L (98-107); Potassium 4.3 mmoL/L (3.5-5.1); Sodium 138 mmol/L (136-145)
[2025-06-25 12:02] LABS: Blood Urea Nitrogen 17 mg/dl (7-17); Creatinine Clearance Estimated 31 mL/min (50-200); Creatinine,Serum 0.70 mg/dl (0.52-1.04); Estimated Glomerular Filt Rate 80 ml/min (>60); GFR (African American) 96 ML/MIN (>60)
[2025-06-25 12:03] LABS: Anion Gap 11.3 mEq/L (5-15); Calcium 9.7 mg/dl (8.4-10.2); Carbon Dioxide 30 mmol/L (22.0-30.0); Glucose 116 mg/dl (74-100)
[2025-06-25] MEDS: LIDOCAINE 1% 10ML MDV 10 ML IJ (12:17)
[2025-06-25] MEDS: HEPARIN 1,000 UNITS/500ML NS (CATH LAB) 3000 UNIT IV (12:18)
[2025-06-25] MEDS: 0.9 % SODIUM CHLORIDE 500 ML 25 ML IV (12:18)
[2025-06-25] MEDS: MIDAZOLAM HCL 1MG/ML 5ML VIAL 1 MG IV (13:40)
[2025-06-25] MEDS: HEPARIN 1,000 UNITS/ML 10ML VIAL (CATH LAB) 5000 UNIT IV (13:40)
[2025-06-25] MEDS: PROTAMINE SULFATE 50MG/5ML VIAL (CATH LAB) 50 MG IV (13:41)
--- NOTE | 2025-06-25 14:30 | HMH.PHAINT1 ---
Pharmacy Intervention Comments: MEDICATION RECONCILIATION COMPLETED ON PATIENT USING EXTERNAL FILL HISTORY FROM PHARMACY. -RADHIKA DAVID, CANDED
[2025-06-25] MEDS: IOPAMIDOL-370 (76%);100ML BOTTLE 85 ML IV (14:42)
--- NOTE | 2025-06-25 17:20 | EXP.HP ---
History of Present Illness *Admission Date: 06/25/25 *Reason for visit:: Post procedure with stents and balloon angioplasty with high risk for bleed *History of present illness: Ms. Zamora is an 85-year-old female with a history of type 2 diabetes mellitus hypertension, hypercholesteremia, asthma, COPD, CHF, coronary artery disease, atrial fibrillation and peripheral vascular disease who was admitted post Intravascular procedure with placement of a drug-coated balloon in the left popliteal artery with angioplasty and left superficial femoral artery drug-coated balloon angioplasty in the left common femoral artery with high risk for bleeding. Patient tolerated the procedure satisfactory. She currently is lying flat in the bed and seems somewhat anxious. She is also complaining of discomfort in bilateral feet. [facility] Disclaimer: The information contained in this section may have been updated after the patient was seen, as this information can be updated by other users. Medical History Claudication Hyperlipemia HTN (hypertension) Paroxysmal atrial fibrillation Peripheral arterial disease CAD (coronary artery disease) Pain in right lower leg Intracranial arteriosclerosis Pneumonia UTI (urinary tract infection) Amputated toe of right foot nearly two years ago, amputated 3rd, 4th toes right b/c complications DM Cellulitis Right foot cellulitis due to acute Charcot joint in the midfoot Fracture of cuneiform bone of foot Acquired pes planus of right foot Osteomyelitis of toe of right foot Postoperative wound dehiscence Charcot's joint of right foot New- 06/10/21 Procedure(s): XR foot wt bearing RT 3V. FINDINGS: Status post amputation at the MTP joint of the 4th and 3rd toes the. Bandage artifact is present at the amputation site. There is diffuse osteopenia of the heads of the 3rd 4th and 5th metatarsals with flexion deformity noted at the 5th toe. No definite bony erosive change however apparent. Charcot joint is present in the midfoot with pes planus and mild inferior displacement of the 1st cuneiform with some fragmentation at the dorsal aspect of the 1st tarsal metatarsal junction. IMPRESSION: Status post amputation at the 3rd and 4th MTP joints. No definite bony erosive changes. Charcot joint in the midfoot Postoperative dehiscence of skin wound Gangrene of toe Gangrene of toe of right foot Cough Ischemic ulcer of toe of right foot, limited to breakdown of skin Ischemic ulcer of toe of right foot Real time reverse transcriptase PCR positive for COVID-19 virus Peripheral vascular disease of lower extremity Pre-ulcerative calluses Pneumonia Peripheral arterial disease Abnormal ankle brachial index (MICHELE) Cardiac pacemaker in situ Acute bronchitis Left bundle branch block (LBBB) on electrocardiogram Tachy-jose francisco syndrome Near syncope Elevated blood pressure reading Anxiety Diabetic foot Keratosis Callus of foot Diabetic ulcer of right fifth toe Dry gangrene Skin ulcer of second toe of left foot with fat layer exposed Ulcer of left great toe due to diabetes mellitus Primary osteoarthritis of both feet Encounter for wound care Overweight (BMI 25.0-29.9) Type 2 diabetes mellitus without complication, without long-term current use of insulin Acquired hammertoes of both feet Osteomyelitis of toe Left foot infection Nail dystrophy Onychogryphosis Lower limb ischemia PAF (paroxysmal atrial fibrillation) PAD (peripheral artery disease) Leg wound, right Leg edema, right COPD (chronic obstructive pulmonary disease) Diabetes mellitus Rapid atrial fibrillation Pulmonary HTN Diastolic dysfunction Mitral regurgitation assisted current use of anticoagulant therapy A-fib Abnormal ECG Fatigue Dyspnea Atrial fibrillation with RVR Asthma with exacerbation Acute exacerbation of chronic obstructive airways disease CHF (congestive heart failure) Asthma Abnormal ankle brachial index (MICHELE) Abnormal electrocardiography Absence of posterior tibial pulse Anxiety Atrial fibrillation with rapid ventricular response Body mass index (BMI) of 25.0 to 29.9 Callus of foot Chronic obstructive pulmonary disease Coronary artery disease Diabetes mellitus Diabetic foot Diastolic dysfunction Dry gangrene Dystrophia unguium Heart murmur Hyperlipidemia Hypertension Infection of left foot Intermittent claudication Ischemia of lower extremity Keratosis Left bundle branch block (LBBB) determined by electrocardiography Leg wound, right assisted current use of anticoagulant therapy Mitral valve insufficiency Onychogryposis Osteomyelitis of toe Osteopenia determined by x-ray Pneumonia Pre-syncope Presence of cardiac pacemaker Primary osteoarthritis of both feet Pulmonary hypertension Rapid atrial fibrillation Skin ulcer of second toe of left foot with fat layer exposed Systemic inflammatory response syndrome (SIRS) Tachycardia-bradycardia Ulcer of left great toe due to diabetes mellitus Acquired hammer toes of both feet Ulcer of right fifth toe due to diabetes mellitus Memory loss Abnormal findings on diagnostic imaging of heart and coronary circulation Chronic HFrEF (heart failure with reduced ejection fraction) Claudication Surgical History S/P amputation of lesser toe History of complete ray amputation of fourth toe of right foot History of complete ray amputation of third toe of right foot Status post foot surgery Status post placement of cardiac pacemaker S/P peripheral artery angioplasty with stent placement History of amputation of toe History of tubal ligation History of nasal surgery S/P peripheral artery angioplasty with stent placement Status post placement of cardiac pacemaker Family History Other Coronary artery disease Diabetes Heart attack Social History Smoking Status: Never smoker alcohol intake: never substance use type: denies use current occupational status: retired Travel in the last 8 weeks?: [place] household members: none housing: house current occupation: Works at [employer] current occupational exposures/hazards: No caffeine: Yes Have you lived/traveled outside [place] in past 30 days?: No Contact w/someone who lives/traveled outside US past 30 days?: No Exposure to someone with infectious disease in past 14 days?: No Do you have a fever (greater than 100.4 F or 38 C)?: No Have you tested positive for COVID-19?: No Exposed to someone with COVID-19 in past 14 days?: No Do you have a sore throat?: No Do you have a cough?: No Do you have any weakness?: No Do you have any diarrhea?: No Are you experiencing any unusual bleeding?: No Do you have any muscle aches/pain?: No Do you have any abdominal pain?: No Are you experiencing loss of taste or smell?: No Other Medical History Have you received the Flu Vaccine for this season: No Have you received the Pneumonia Vaccine: No Review of Systems Constitutional Constitutional: Denies frequent falls and Denies headache(s) Eyes Eyes: Denies change in vision ENT Ears, Nose, Mouth, and Throat: Denies disequilibrium, Denies dizziness, Denies otalgia, Denies headache(s) and Denies sore throat *Cardiovascular Cardiovascular: Denies chest pain, Denies dyspnea, Denies edema, Denies irregular heart rhythm and Denies leg edema *Respiratory Respiratory: Reports cough (She states she was has a chronic cough) and Denies dyspnea *Gastrointestinal Gastrointestinal: Denies change in stool character, Denies diarrhea, Denies heartburn, Denies nausea and Denies vomiting *Genitourinary Genitourinary: Denies difficulty voiding *Musculoskeletal Musculoskeletal: Denies abnormal gait and Reports arthralgias (Bilateral legs) *Neurologic Neurologic: Denies abnormal gait, Denies disequilibrium, Denies dizziness, Denies frequent falls and Denies headache(s) Meds Home Medications and Allergies Home Medications ?Medication ?Instructions ?Recorded ?Confirmed ?Type pravastatin 40 mg tablet 40 mg PO HS 03/31/18 06/25/25 History budesonide-formoterol HFA 160 2 puffs inhalation BID 08/16/19 06/25/25 History mcg-4.5 mcg/actuation aerosol inhaler (Symbicort) gabapentin 300 mg capsule 300 mg PO BID 01/05/22 06/25/25 History apixaban 2.5 mg tablet (Eliquis) 2.5 mg PO BID 11/02/24 06/25/25 History carvedilol 6.25 mg tablet (Coreg) 6.25 mg PO BID #180 tabs 11/20/24 06/25/25 Rx valsartan 40 mg tablet 40 mg PO BID #180 tabs 11/20/24 06/25/25 Rx clopidogrel 75 mg tablet 75 mg PO DAILY 01/31/25 06/25/25 History furosemide 20 mg tablet 20 mg PO DAILYP PRN Edema 01/31/25 06/25/25 History digoxin 125 mcg (0.125 mg) tablet 125 mcg PO DAILY #90 tabs 04/30/25 06/25/25 Rx New Prescriptions to Start Prescriptions: Allergies Allergy/AdvReac Type Severity Reaction Status Date / Time codeine (CODEINE) Allergy Unknown Unknown Verified 06/24/25 13:53 allergy reaction morphine Allergy Unknown Unknown Verified 06/24/25 13:53 allergy reaction fentanyl AdvReac Mild behavior Verified 06/24/25 13:53 changes diphenhydramine (From AdvReac Agitated Verified 06/24/25 13:53 Benadryl) doxycycline AdvReac Nausea Verified 06/24/25 13:53 Exam Data for Last 24 hours Vital signs and Labs for Last 24 Hours: Pulse Resp BP Pulse Ox O2 Del Method 60 20 187/76 H 97 Room Air 06/25/25 14:30 06/25/25 14:30 06/25/25 14:30 06/25/25 14:30 06/25/25 14:45 Laboratory Results - last 24 hr 06/25/25 10:59: WBC 12.5 H, RBC 4.66, Hgb 13.7, Hct 42.1, MCV 90.3, MCH 29.4, MCHC 32.5, RDW 12.9, Plt Count 311, MPV 9.5, Neut % (Auto) 58.0, Lymph % (Auto) 27.5, [place] % (Auto) 8.3, Eos % (Auto) 5.5, Baso % (Auto) 0.3, Neut # (Auto) 7.2, Lymph # (Auto) 3.4, [place] # (Auto) 1.0, Eos # (Auto) 0.7 H, Baso # (Auto) 0.0, Sodium 138, Potassium 4.3, Chloride 101, Carbon Dioxide 30, Anion Gap 11.3, BUN 17, Creatinine 0.70, Estimated Creat Clear 31, Estimated GFR 80, Est GFR ( Amer) 96, Glucose 116 H, Calcium 9.7 I & O for Last 24 hours: Intake & Output 06/23/25 06/24/25 06/25/25 06/26/25 11:59 11:59 11:59 11:59 Intake Total 1000 / 1000 Output Total 0 / 0 Balance 1000 / 1000 Weight 105 lb Constitutional Constitutional: no acute distress Comments: Lying flat in the bed postprocedure *Routine HEENT Exam Head: Present normocephalic and atraumatic Eye: Present PERRL; Absent conjunctival icterus, scleral injection or conjunctivae pink ENT: Present mucous membranes dry and oropharynx clear *Routine Neck Exam Neck: Present supple; Absent carotid bruit, lymphadenopathy or thyromegaly *Routine Respiratory Exam Respiratory: Present CTA bilaterally *Routine Cardiovascular Exam Cardiovascular: Present RRR *Routine Abdominal Exam Abdominal: Present soft and normoactive bowel sounds; Absent tenderness or distended *Routine Rectal Exam Rectal:: deferred *Routine Genitalia Exam Genitalia:: deferred *Routine Extremities Exam Extremities: Absent edema or calf tenderness *Routine Neurological Exam Neurological: Present alert and oriented X3 Assessment and Plan *Assessment and plan (1) Status post peripheral artery angioplasty: Status: Acute Category: Surgical Code(s): Z98.62 - Peripheral vascular angioplasty status (2) Peripheral arterial disease: Status: Acute Category: Medical Code(s): I73.9 - Peripheral vascular disease, unspecified (3) Paroxysmal atrial fibrillation: Status: Acute Category: Medical Code(s): I48.0 - Paroxysmal atrial fibrillation (4) Chronic HFrEF (heart failure with reduced ejection fraction): Status: Acute Category: Medical Code(s): I50.22 - Chronic systolic (congestive) heart failure (5) Type 2 diabetes mellitus: Status: Acute Qualifiers: Diabetes mellitus complication status: with hyperglycemia Diabetes mellitus alf insulin use: without alf use Qualified Code(s): E11.65 - Type 2 diabetes mellitus with hyperglycemia Category: Medical Code(s): E11.9 - Type 2 diabetes mellitus without complications (6) Claudication: Status: Acute Category: Medical Code(s): I73.9 - Peripheral vascular disease, unspecified Plan Notes from Interventional vascular procedure: IMPRESSION Chronically occluded left common femoral left SFA left popliteal artery with successful balloon coated angioplasty reducing 100% occlusion to less than 10%. PLAN 1. Dual antiplatelet therapy 2. Recommend admission overnight due to antegrade stick and elderly patient with low body weight which puts her at increased risk for bleeding in the groin 3. Risk factor modification Patient required to lie flat for another couple of hours. Family is not present. She takes hydroxyzine as needed at home. Will give her a dose now for her anxiety. Will be followed by cardiology postprocedure as noted per plan. Dr. Montanez entry - Saw patient, agree with above note.
[2025-06-25] MEDS: CLOPIDOGREL 75MG TAB 75 MG PO (17:58)
[2025-06-25] MEDS: HYDROCODONE/APAP 5/325 MG TABLET 1 TAB PO ×2 (18:07→23:46)
--- NOTE | 2025-06-25 18:32 | PC.NURSE ---
Pt is resting in bed. She remains supine at this time. Pt may sit up at 1900 and stand at 2000. She has been anxious this evening and has requested family to come to bedside. Family notified. Pt has also c/o discomfort to BLE. Medicated per dec. She remains on post op vs. BP has improved. Awaiting family. Call light within reach. Safety measures in place.
[2025-06-25 19:42] LABS: POC Glucose,Bedside 107 gm/dL (70-110)
[2025-06-25] MEDS: PRAVASTATIN 40MG TAB 40 MG PO (20:45)
[2025-06-25] MEDS: GABAPENTIN 300MG CAPSULE 300 MG PO (20:45)
--- NOTE | 2025-06-25 21:53 | ECG_ITS ---
APPROVED REPORT Exam: Resting ECG HR:64 bpm ECG Measurements Heart Rate 64 AXES CA 159 P 42 QRSd 136 QRS -54 QT 427 T 119 QTc 436 Conclusion SINUS RHYTHM LEFT AXIS DEVIATION [QRS AXIS < -30] LEFT BUNDLE BRANCH BLOCK [120+ ms QRS DURATION, 80+ ms Q/S IN V1/V2, 85+ ms R IN I/aVL/V5/V6] ABNORMAL ECG UNCONFIRMED REPORT Electronically signed by : Kam Gordon MD 06/26/2025 08:26:00
[2025-06-25 23:38] LABS: Microscopic, Urine URINE MICROSCOPIC (MICROSCOPIC)
[2025-06-25 23:46] LABS: Bilirubin,Urine Negative (Negative); Color,Urine YELLOW (Yellow); Glucose,Urine (UA) Negative (Negative); Ketones,Urine TRACE (Negative); Leukocyte Esterase,Urine Negative (Negative); PH,Urine 5.5 (5.0-8.5); Protein,Urine Negative (Negative); Specific Gravity, Urine 1.020 (1.005-1.030); Urobilinogen,Urine 0.2 EU/dl (0.2)
[2025-06-25 23:54] LABS: RBC,Urine Occasional #/hpf (0-3)
[2025-06-25 23:55] LABS: Bacteria,Urine 1+ /lpf; Squamous Epithelial Cell,Urine Occasional #/hpf (0-5)
[2025-06-26] VITALS: BP 115/53; PULSE 60; RESP 16; TEMP 36.4; O2SAT 94
--- NOTE | 2025-06-26 02:12 | PC.NURSE ---
Pt AOx4. Post cardiac cath. Left femoral sight has small amount of blood on dressing. VSS. Currently resting in bed with eyes closed. Respirations even and unlabored. Daughter at bedside. Bed is low, locked, and call light is in reach.
[2025-06-26 04:00] VITALS: BP 150/66; PULSE 60; PULSE 66; RESP 15; TEMP 36.8; O2SAT 98; BMI 25.2
[2025-06-26 05:58] LABS: Hematocrit 36.5 % (37.0-47.0); Immature Granulocytes % 0.2 %; Mean Corpuscular HGB Conc 30.7 g/dL (31.8-35.4); Mean Corpuscular Hemoglobin 28.8 pg (27.0-31.2); Mean Corpuscular Volume 93.8 fl (81-99); Nucleated Red Blood Cells % 0 %; Platelet Count 251 K/mm3 (142-424); Red Blood Count 3.89 M/mm3 (4.20-5.40); Red Cell Distribution Width-SD 44.1 fL; White Blood Count 9.7 K/mm3 (4.8-10.8)
[2025-06-26 06:03] LABS: Hemoglobin 11.5 g/dL (12.2-16.2)
[2025-06-26 06:06] LABS: Anion Gap 10.0 mEq/L (5-15); Blood Urea Nitrogen 16 mg/dl (7-17); Calcium 9.0 mg/dl (8.4-10.2); Carbon Dioxide 25 mmol/L (22.0-30.0); Chloride 106 mmol/L (98-107); Creatinine Clearance Estimated 33 mL/min (50-200); Creatinine,Serum 0.60 mg/dl (0.52-1.04); Estimated Glomerular Filt Rate 95 ml/min (>60); GFR (African American) 115 ML/MIN (>60); Glucose 85 mg/dl (74-100); Potassium 4.0 mmoL/L (3.5-5.1); Sodium 137 mmol/L (136-145)
[2025-06-26 08:00] VITALS: BP 132/44; PULSE 67; PULSE 70; RESP 16; TEMP 36.7; O2SAT 94
--- NOTE | 2025-06-26 08:23 | EXP.ACUTE.PN ---
Subjective *Date: 06/26/25 *Time: 09:10 Interval history: Patient is feeling better today. She had left leg pain all night but it has eased some this am. She was able to sleep around 5 hours and did eat this am. Medical Exam Vital signs and Labs for Last 24 Hours: Vital Signs Temp Pulse Pulse Resp BP Pulse Ox O2 Del Method 06/26/25 08:00 98.1 F 70 16 132/44 L 94 L 06/26/25 06:40 Room Air 06/26/25 05:00 Room Air 06/26/25 04:00 60 06/26/25 04:00 98.2 F 66 15 150/66 H 98 Room Air 06/26/25 03:00 Room Air 06/26/25 01:00 Room Air 06/26/25 00:00 97.5 F L 60 16 115/53 L 94 L Room Air 06/26/25 00:00 60 06/25/25 23:00 Room Air 06/25/25 21:00 Room Air 06/25/25 20:00 Room Air 06/25/25 20:00 70 06/25/25 18:43 Room Air 06/25/25 18:15 97.4 F L 73 16 166/75 H 98 Room Air 06/25/25 17:15 69 16 142/63 H 96 Room Air 06/25/25 17:00 Room Air 06/25/25 16:45 63 17 171/76 H 98 Room Air 06/25/25 16:29 60 06/25/25 16:15 60 16 161/86 H 98 Room Air 06/25/25 15:45 61 15 144/66 H 98 Room Air 06/25/25 15:15 97.7 F 55 L 16 149/51 H 97 Room Air 06/25/25 15:00 60 16 169/64 H 98 Room Air 06/25/25 15:00 Room Air 06/25/25 14:45 60 15 167/77 H 97 Room Air 06/25/25 14:45 Room Air 06/25/25 14:30 60 20 187/76 H 97 Room Air 06/25/25 14:20 84 20 174/94 H 97 Room Air 06/25/25 14:15 60 20 161/76 H 97 Room Air 06/25/25 14:10 70 20 173/77 H 98 Room Air 06/25/25 14:05 62 16 164/68 H 98 Room Air 06/25/25 11:01 65 06/25/25 10:57 66 20 207/99 H 96 Room Air O2 Del Method 06/26/25 08:00 06/26/25 06:40 06/26/25 05:00 06/26/25 04:00 06/26/25 04:00 06/26/25 03:00 06/26/25 01:00 06/26/25 00:00 06/26/25 00:00 06/25/25 23:00 06/25/25 21:00 06/25/25 20:00 06/25/25 20:00 06/25/25 18:43 06/25/25 18:15 06/25/25 17:15 06/25/25 17:00 06/25/25 16:45 06/25/25 16:29 06/25/25 16:15 06/25/25 15:45 06/25/25 15:15 06/25/25 15:00 06/25/25 15:00 06/25/25 14:45 06/25/25 14:45 06/25/25 14:30 06/25/25 14:20 06/25/25 14:15 06/25/25 14:10 06/25/25 14:05 06/25/25 11:01 06/25/25 10:57 Room Air Intake and Output 06/25/25 06/26/25 06/26/25 19:59 03:59 11:59 Intake Total 1000 / 1120 120 / 1120 Output Total 0 / 640 640 / 640 Balance 1000 / 480 -640 / 480 120 / 480 Intake: Intake, Oral Amount 120 / 120 Intake, Total IV Amount 1000 / 1000 0.9 % Sodium Chloride 500 ml @ 1000 / 1000 25 mls/hr IV .Q25H [facility] Rx#: [id number] Output: Output, Urine Amount 0 / 640 640 / 640 Other: Number of Voids 0 Weight 109 lb Patient Weight 06/26/25 11:59 Weight 109 lb Laboratory Results - last 24 hr 06/25/25 10:59: WBC 12.5 H, RBC 4.66, Hgb 13.7, Hct 42.1, MCV 90.3, MCH 29.4, MCHC 32.5, RDW 12.9, Plt Count 311, MPV 9.5, Neut % (Auto) 58.0, Lymph % (Auto) 27.5, [place] % (Auto) 8.3, Eos % (Auto) 5.5, Baso % (Auto) 0.3, Neut # (Auto) 7.2, Lymph # (Auto) 3.4, [place] # (Auto) 1.0, Eos # (Auto) 0.7 H, Baso # (Auto) 0.0, Sodium 138, Potassium 4.3, Chloride 101, Carbon Dioxide 30, Anion Gap 11.3, BUN 17, Creatinine 0.70, Estimated Creat Clear 31, Estimated GFR 80, Est GFR ( Amer) 96, Glucose 116 H, Calcium 9.7 06/25/25 19:35: POC Glucose 107 06/25/25 22:00: Urine Color Yellow, Urine Appearance Clear, Urine pH 5.5, Ur Specific Rake 1.020, Urine Protein Negative, Urine Glucose (UA) Negative, Urine Ketones Trace, Urine Blood 2+ A, Urine Nitrate Negative, Urine Bilirubin Negative, Urine Urobilinogen 0.2, Ur Leukocyte Esterase Negative, Urine RBC Occasional, Urine WBC 3-5, Ur Squamous Epith Cells Occasional, Urine Bacteria 1+ 06/26/25 05:24: WBC 9.7, RBC 3.89 L, Hgb 11.5 L D, Hct 36.5 L, MCV 93.8, MCH 28.8, MCHC 30.7 L, RDW 12.9, Plt Count 251, MPV 9.3, Neut % (Auto) 55.7, Lymph % (Auto) 30.6, [place] % (Auto) 8.9, Eos % (Auto) 4.2, Baso % (Auto) 0.4, Neut # (Auto) 5.4, Lymph # (Auto) 3.0, [place] # (Auto) 0.9, Eos # (Auto) 0.4, Baso # (Auto) 0.0, Sodium 137, Potassium 4.0, Chloride 106, Carbon Dioxide 25, Anion Gap 10.0, BUN 16, Creatinine 0.60, Estimated Creat Clear 33, Estimated GFR 95, Est GFR ( Amer) 115, Glucose 85 D, Calcium 9.0 I & O for Labs for Last 24 Hours: Intake & Output 06/23/25 06/24/25 06/25/25 06/26/25 11:59 11:59 11:59 11:59 Intake Total 1120 / 1120 Output Total 640 / 640 Balance 480 / 480 Weight 105 lb 109 lb Constitutional: Present no acute distress Respiratory: Present decreased breath sounds and CTA bilaterally Cardiac: Present Reg Rate and Rhythm GI: Present soft; Absent tenderness Extremities: Absent tenderness or edema Skin: Present intact Neuro: Present alert and awake Assessment and Plan *Assessment and plan (1) Status post peripheral artery angioplasty: Status: Acute Category: Surgical Code(s): Z98.62 - Peripheral vascular angioplasty status (2) Peripheral arterial disease: Status: Acute Category: Medical Code(s): I73.9 - Peripheral vascular disease, unspecified (3) Paroxysmal atrial fibrillation: Status: Acute Category: Medical Code(s): I48.0 - Paroxysmal atrial fibrillation (4) Chronic HFrEF (heart failure with reduced ejection fraction): Status: Acute Category: Medical Code(s): I50.22 - Chronic systolic (congestive) heart failure (5) Type 2 diabetes mellitus: Status: Acute Qualifiers: Diabetes mellitus complication status: with hyperglycemia Diabetes mellitus skilled nursing insulin use: without skilled nursing use Qualified Code(s): E11.65 - Type 2 diabetes mellitus with hyperglycemia Category: Medical Code(s): E11.9 - Type 2 diabetes mellitus without complications (6) Claudication: Status: Acute Category: Medical Code(s): I73.9 - Peripheral vascular disease, unspecified Plan Cardiology to follow. Will discuss further care with Dr. Montanez. Dr. Montanez entry - Saw patient, agree with above note. Will ambulate today, possible discharge later today.
[2025-06-26 08:45] VITALS: PULSE 71
[2025-06-26] MEDS: CLOPIDOGREL 75MG TAB 75 MG PO (08:45)
[2025-06-26] MEDS: IRBESARTAN 75MG TABLET 75 MG PO (08:45)
[2025-06-26] MEDS: GABAPENTIN 300MG CAPSULE 300 MG PO (08:45)
[2025-06-26] MEDS: DIGOXIN 0.125MG TABLET 125 MCG PO (08:45)
--- NOTE | 2025-06-26 09:34 | PC.NURSE ---
pt able to walk back and forth to bathroom with standby assistance. tolerated well.
[2025-06-26 12:00] VITALS: PULSE 71
--- NOTE | 2025-07-08 18:03 | EXP.DC.SUM ---
General Admission date:: 06/25/25 Discharge date: 06/26/25 HPI HPI HPI: Ms. Zamora is an 85-year-old female with a history of type 2 diabetes mellitus hypertension, hypercholesteremia, asthma, COPD, CHF, coronary artery disease, atrial fibrillation and peripheral vascular disease who was admitted post Intravascular procedure with placement of a drug-coated balloon in the left popliteal artery with angioplasty and left superficial femoral artery drug-coated balloon angioplasty in the left common femoral artery with high risk for bleeding. Patient tolerated the procedure satisfactory. She currently is lying flat in the bed and seems somewhat anxious. She is also complaining of discomfort in bilateral feet. Hospital Course Hospital Course Hospital Course: The the patient had a chronically occluded left common femoral, left SFA, left popliteal artery with successful balloon coated angioplasty. She was started on dual antiplatelet therapy and it was recommended she stay overnight due to antegrade stick in elderly patient with low body weight which put her at increased risk for bleeding in the groin. She was required to lay flat. By she was doing well and was stable to be discharged home. Exam Data for Last 24 hours Vital signs and Labs for Last 24 Hours: Temp Pulse Resp BP Pulse Ox O2 Del Method 98.1 F 71 16 132/44 L 94 L Room Air 06/26/25 08:00 06/26/25 12:00 06/26/25 08:00 06/26/25 08:00 06/26/25 08:00 06/26/25 13:00 Narrative: Constitutional Constitutional: no acute distress Comments: Lying flat in the bed postprocedure *Routine HEENT Exam Head: Present normocephalic and atraumatic Eye: Present PERRL; Absent conjunctival icterus, scleral injection or conjunctivae pink ENT: Present mucous membranes dry and oropharynx clear *Routine Neck Exam Neck: Present supple; Absent carotid bruit, lymphadenopathy or thyromegaly *Routine Respiratory Exam Respiratory: Present CTA bilaterally *Routine Cardiovascular Exam Cardiovascular: Present RRR *Routine Abdominal Exam Abdominal: Present soft and normoactive bowel sounds; Absent tenderness or distended *Routine Rectal Exam Rectal:: deferred *Routine Genitalia Exam Genitalia:: deferred *Routine Extremities Exam Extremities: Absent edema or calf tenderness *Routine Neurological Exam Neurological: Present alert and oriented X3 DS: Diagnosis Discharge Diagnosis (1) Status post peripheral artery angioplasty: Status: Acute Code(s): Z98.62 - Peripheral vascular angioplasty status (2) Peripheral arterial disease: Status: Acute Code(s): I73.9 - Peripheral vascular disease, unspecified (3) Paroxysmal atrial fibrillation: Status: Acute Code(s): I48.0 - Paroxysmal atrial fibrillation (4) Chronic HFrEF (heart failure with reduced ejection fraction): Status: Acute Code(s): I50.22 - Chronic systolic (congestive) heart failure (5) Type 2 diabetes mellitus: Status: Acute Code(s): E11.9 - Type 2 diabetes mellitus without complications Qualifiers: Diabetes mellitus intermodal customer service insulin use: without group home use Diabetes mellitus complication status: with hyperglycemia Qualified Code(s): E11.65 - Type 2 diabetes mellitus with hyperglycemia (6) Claudication: Status: Acute Code(s): I73.9 - Peripheral vascular disease, unspecified Meds Home Medications and Allergies Home Medications ?Medication ?Instructions ?Recorded ?Confirmed ?Type pravastatin 40 mg tablet 40 mg PO HS 03/31/18 07/02/25 History budesonide-formoterol HFA 160 2 puffs inhalation BID 08/16/19 07/02/25 History mcg-4.5 mcg/actuation aerosol inhaler (Symbicort) apixaban 2.5 mg tablet (Eliquis) 2.5 mg PO BID 11/02/24 07/02/25 History carvedilol 6.25 mg tablet (Coreg) 6.25 mg PO BID #180 tabs 11/20/24 07/02/25 Rx clopidogrel 75 mg tablet 75 mg PO DAILY 01/31/25 07/02/25 History furosemide 20 mg tablet 20 mg PO DAILYP PRN Edema 01/31/25 07/02/25 History digoxin 125 mcg (0.125 mg) tablet 125 mcg PO DAILY #90 tabs 04/30/25 07/02/25 Rx gabapentin 300 mg capsule 300 mg PO BID 07/02/25 07/02/25 History valsartan 40 mg tablet 20 mg (1/2 x 40 mg) PO DAILY #90 07/02/25 07/02/25 Rx tabs New Prescriptions to Start Prescriptions: Allergies Allergy/AdvReac Type Severity Reaction Status Date / Time codeine (CODEINE) Allergy Unknown Unknown Verified 07/02/25 13:55 allergy reaction morphine Allergy Unknown Unknown Verified 07/02/25 13:55 allergy reaction fentanyl AdvReac Mild behavior Verified 07/02/25 13:55 changes diphenhydramine (From AdvReac Agitated Verified 07/02/25 13:55 Benadryl) doxycycline AdvReac Nausea Verified 07/02/25 13:55 Discharge Plan Disposition Patient Disposition: Home, Self-Care Condition: Fair Follow up Plan Follow up with: Alexis Montanez MD [Primary Care Provider, Medical] - 07/03/25 10:30 am Sage Chadwick MD [Staff Physician, Cardiology] - 07/09/25 1:30 pm Prescriptions/Medication Reconciliation: Continued carvedilol [Coreg] 6.25 mg tablet 6.25 mg PO BID Qty: 180 3RF Rx Instructions: must administer with a meal/food digoxin 125 mcg (0.125 mg) tablet 125 mcg PO DAILY Qty: 90 1RF pravastatin 40 MG tablet 40 mg PO HS budesonide-formoterol [Symbicort] 10.2 GM HFA aerosol inhaler 2 puffs inhalation BID Eliquis 2.5 mg tablet 2.5 mg PO BID Patient Comments: TAKE 1 TABLET BY MOUTH TWICE DAILY FOR BLOOD THINNER clopidogrel 75 mg tablet 75 mg PO DAILY furosemide 20 mg tablet 20 mg PO DAILYP PRN (Reason: Edema) No Action valsartan 40 mg tablet 20 mg PO DAILY Qty: 90 3RF gabapentin 300 mg capsule 300 mg PO BID Rx Instructions: 300 mg in the morning 600mg at night Other Ambulatory Orders: Basic Metabolic Panel (Routine) Timeframe: 20250709 Facility: [facility] - Location: Laboratory Ordered By: Sage Chadwick Complete Blood Count Auto Diff (Routine) Timeframe: 20250709 Facility: [facility] - Location: Laboratory Ordered By: Sage Chadwick Problem Reconciliation Problems Reviewed?: Yes Patient Discharge Instructions ACTIVITY: Limited activity DIET: continue same diet Patient Instructions: DI for Peripheral Vascular (Arterial) Disease, DI for Surgical Site Infection, DI for Moderate Sedation Print Language: Serbian Providers Primary Care Provider: Alexis Montanez Admit Provider: Alexis Montanez Attending Provider: Alexis Montanez
== END 2025-06-26 14:01 | disposition home or self-care (01) ==
LOC: 2ND 14:27
PROVIDERS: Internal Medicine; Internal Medicine Adolescent Medicine; Admitting Provider Family Medicine; PCP Family Medicine; Visit Provider Family Medicine
DX: I70.212 Atherosclerosis of native arteries of extremities with intermittent claudication, left leg (principal); E11.51 Type 2 diabetes mellitus with diabetic peripheral angiopathy without gangrene; E11.65 Type 2 diabetes mellitus with hyperglycemia; I25.118 Atherosclerotic heart disease of native coronary artery with other forms of angina pectoris; R42 Dizziness and giddiness; I50.22 Chronic systolic (congestive) heart failure; I11.0 Hypertensive heart disease with heart failure; R41.3 Other amnesia; I48.0 Paroxysmal atrial fibrillation; E78.2 Mixed hyperlipidemia; R09.89 Other specified symptoms and signs involving the circulatory and respiratory systems; I27.20 Pulmonary hypertension, unspecified; Z95.0 Presence of cardiac pacemaker; Z98.62 Peripheral vascular angioplasty status; Z79.01 Long term (current) use of anticoagulants; Z79.02 Long term (current) use of antithrombotics/antiplatelets; Z79.899 Other long term (current) drug therapy; Z88.1 Allergy status to other antibiotic agents; Z88.5 Allergy status to narcotic agent; Z88.2 Allergy status to sulfonamides; Z88.8 Allergy status to other drugs, medicaments and biological substances; Z82.49 Family history of ischemic heart disease and other diseases of the circulatory system
CPT/HCPCS: 36415; 37224; 80048; 81001; 82962; 85025; 93005; 99152; 99153; C1725; C1769; C1894; G0378; J1644; J2704; J2720; J7040; Q9967

== ENCOUNTER 2025-06-27 08:55 | Observation (INO) | payer MEDICARE, SELFPAY ==
--- OUTSIDE RECORDS SUMMARY | 2024-12-20 06:00 | XMS_ITS ---
Author Organization [facility] Address [address] [facility] [address] [place] [id number] Care Team Providers Care Stringer Up Soldering Machine Name Role Phone Buck Valencia Primary Care Provider Alexis Montanez Unavailable [phone] Allergies Allergen (clinical drug ingredient) Drug/Non Drug [...] 54 Performing Lab: Notes/Report: Test performed by [facility] [address] , [place] [address] Mehdi Rodríguez MD, Form Worker CLIA: [id number] Sodium 141 135-145 mmol/L Potassium 4.7 3.5-5.3 mmol/L Chloride 100 97-108 mmol/L CO2 31 22-32 mmol/L Glucose 146 65-99 mg/dL BUN 27 8-23 mg/dL Creatinine 1.03 0.50-1.00 mg/dL Calcium 9.5 8.6-10.4 mg/dL eGFR by Creatinine 54 >59 mL/min/1.73m2 P-TSH reflex to FT4 Reviewed date:12/21/2024 09:12:59 AM Interpretation:Normal Performing Lab: Notes/Report: Test performed by [facility] [address] , [address], [place] [address] Mehdi Rodríguez MD, Form Worker CLIA: [id number] TSH reflex to FT4 2.13 0.43-5.25 mU/L P-Microalbumin/Creatinine, R andom Urine Sample Reviewed date:12/24/2024 10:56:33 AM Interpretation: Normal Performing Lab: Notes/Report: Test performed by [facility] [address] , [place] [address] Mehdi Rodríguez MD, Form Worker CLIA: [id number] Albumin/Creatinine Ratio, Urine 24 0-30 ug/m g Microalbumin, Urine, Random 1.0 Creatinine, Urine 41.8 P-Vitamin D 25-Hydroxy Reviewed date:12/21/2024 09:12:59 AM Interpretation:Normal Performing Lab: Notes/Report: Test performed by [facility] [address] , [place] [address] Mehdi Rodríguez MD, Form Worker CLIA: [id number] Vitamin D 25-Hydroxy 55.0 30.0-100.0 ng/mL Interpretation [...] Duration: 30 day(s) 11/20/2024 Active Vital Signs Blood pressure systolic 110 mm Hg 12/21/19 25 Blood pressure diastolic 70 mm Hg 025 Heart Rate 62 /min 12/20/2024 Height 58 in 12/20/2024 Weight 108.4 lbs 12/20/2024 BMI 22.65 kg/m2 12/20/2024 Encounters Encounter Location Date Provider Diagnosis [facility] [facility] 36 [facility] [address] [place] [id number] 12/20/2024 Alexis Montanez Type 2 diabetes mellitus without complication, unspecified whether custodial insulin use E11.9 ; Stage 3a chronic kidney disease (CKD) N18.31 ; Acute cough R05.1 and Vitamin D deficiency E55.9 Assessments Encounter Date Diagnosis (ICD Code) Assessment Notes Treatment Notes Treatment Clinical Notes Section Notes 12/20/2024 Type 2 diabetes mellitus without complication, unspecified whether custodial insulin use (ICD-10 - E11.9) 12/20/2024 Stage [...] Up: 3 Months, Reason: Provider Name:Alexis hickey, 07/03/2025 10:30:00 AM, 12[address] [facility] 36 [facility], [address], [place], [phone], Provider Name:Alexis hickey, 09/02/2025 11:45:00 AM, [address] [place] [address] [address], [place], [phone], Progress Notes * LASHAWN ZAMORA ADOB: [birth year] (85 yo F)Acc No.[id number]:12/20/2024 Progress Notes Patient: Barrie ELIZABETH LASHAWN El Provider: Jazmín Montanez M.D. 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 Chadwick . * Hospitalization/Major Diagno stic Procedure: V omiting- [facility] ER 12/2012, [facility] 10/[facility]-, [place] 11/20-04/2014, Chest Pain- [facility] ER 10/28/2016, COPD, Asthma- [facility] ER 12/2017, COPD, Asthma- [facility] 04/2018, Stent Placement - [facility] 05/2018, stent placement- [facility] 03/20/19, Stent Placement (L) foot- [facility] 08/16-08/18/2019, PAD- [facility] 08/21-09/2020, Vascular Procedure-Leg Discomfort After Surgery- [facility] 03/13/2021. * Family History: F ather: , coronary artery disease- [place]. M other: , coronary artery disease, diabetes, [...] 2 diabetes mellitus without complication, unspecified whether custodial insulin use - E11.9 (Primary) 2 . [...] p latlet 236 100 - 400 * Laura Lopez 12/20/2024 11:08:42 AM > , Provider reviewed results while patient in office. 4.?Vitamin D deficiency?LAB: P-Vitamin D 25-Hydroxy (Collection Date & Time - 12/20/2024 09:32 AM)? Normal* Value Reference Range V itamin D 25-Hydroxy 55.0 30.0-100.0 - ng/mL * Edilia Byrd 12/21/2024 09:12 :44 AM > See phone encounter * Procedure Codes: G 2211 Complex e/[place], [address] [place], [address] GLUCOSE TEST, 52402 GLYCATED HEMOGLOBIN TEST, Modifiers: QW , 90835 CBC WITH AUTO DIFF, 20458 Urinalysis, no micro, 3044F HG A1C LEVEL LT 7.0%, G8752 MOST RECENT SYSTOLIC BP < 140MM HG, G8754 MOST RECENT DIASTOLIC BP < 90MM HG * Follow Up: 3 Months * Images: Billing Information: * Visit Code: 94494 Office Visit, Est Pt., Level 4. * Procedure Codes: G2211 Complex e/[place]. [address] [place]. [address] GLUCOSE TEST. 28222 GLYCATED HEMOGLOBIN TEST. Modifiers: QW 76168 CBC WITH AUTO DIFF. 51832 Urinalysis, no micro. 3044F HG A1C LEVEL LT 7.0%. G8752 MOST RECENT SYSTOLIC BP < 140MM HG. G8754 MOST RECENT DIASTOLIC BP < 90MM HG. * Electronic signature of Carmita Montanez MD on 06/27/2025 at 09:28 AM EDT Sign off status: Pending * Provider: Jazmín Montanez M.D. Date: 0 12/20/2024 Generated for Oh little/Faxing/eTransmitting on: 0 06/27/2025 09:28 AM EDT History and Physical Notes * HPI (History [...]
--- OUTSIDE RECORDS SUMMARY | 2024-12-21 12:15 | XMS_ITS ---
Author Organization [facility] Address [address] [facility] 36 [facility] [address] [place] [id number] Care Team Providers Care Student Records Coordinator Name Role Phone Buck Valencia Primary Care Provider Alexis Montanez Unavailable [phone] Results Component Value Reference Range Notes Urinalysis - Inhouse Reviewed date:12/24/2024 10:56:33 AM Interpretation: Normal Performing Lab: Notes/Report: Normal Color/Clarity yellow/clear Leuk 1+ Nitrite Neg Urobili 3.2 Protein Neg pH 5.5 Blood Neg Sp. Gr. 1.010 Ketone Neg Bili Neg Gluc Neg P-Culture, Urine Reviewed date:12/24/2024 10:55:44 AM Interpretation:No growth Performing Lab: Notes/Report: Test performed by [employer] [employer] [address] [place] [address] , [address], [place] [address] Mehdi Rodríguez MD, Pig Caster CLIA: [id number] Specimen Source Urine - Void Culture, Urine [...] Active Encounters Encounter Location Date Provider Diagnosis [facility] [address] [place], [place] [id number] 12/21/2024 [place] Pyuria R82.81 Assessments Encounter Date Diagnosis (ICD Code) Assessment Notes Treatment Notes Treatment Clinical Notes Section Notes 12/21/2024 Pyuria (ICD-10 - R82.81) Plan Of Treatment Next Appt Details Provider Name:Alexis hickey, 07/03/2025 10:30:00 AM, [address] [facility], [address], [place], [id number], Provider Name:Alexis hickey, 09/02/2025 11:45:00 AM, [address], [address], [place], [id number], Progress Notes * LASHAWN ZAMORA ADOB: [birth year] (85 yo F)Acc No.[id number]:12/21/2024 Patient: Barrie LASHAWN ELIZABETH Provider: Jazmín Montanez M.D. :1940 A ge:84 Y S ex:Female Date:12/21/2024 Address:[address] [place] [address] [place], [id number] Pcp:Buck Valencia Subjective: * Chief Complaints: * [...] Laura Lopez 12/21/2024 3:52:06 PM > Edilia Bydr 12/24/2024 10:56:24 AM >See phone encounter * Procedure Codes: 8 1002 Urinalysis, no micro * Images: Billing Information: * Visit Code: * Procedure Codes: 47736 Urinalysis, no micro. * Electronic signature of Carmita Montanez MD on 06/27/2025 at 09:28 AM EDT Sign off status: Pending * Provider: Jazmín Montanez M.D. Date: 0 12/21/2024 Generated for Oh little/Nena/Yayaransmitting on: 0 06/27/2025 09:28 AM EDT
--- OUTSIDE RECORDS SUMMARY | 2025-02-15 06:00 | XMS_ITS ---
Author Organization [facility] Address [address] [facility] [address] [facility] [address] [place] [phone] Care Team Providers Care Key Account Representative Name Role Phone Buck Valencia Primary Care Provider Alexis Montanez Unavailable [phone] Allergies Allergen (clinical drug ingredient) Drug/Non Drug Allergy documented on EMR Reaction Allergy Type Onset Date Status acetaminophen / hydrocodone HYDROcodone-Acetamino phen vomiting Drug Allergy Active codeine Codeine rash Drug Allergy Active morphine Morphine Unknown Drug Allergy Active Penicillin Unknown Drug Allergy Active REASON FOR VISIT [facility] D/C fu Medications Medication SIG (Take, Route, [...] 02/15/2025 Encounters Encounter Location Date Provider Diagnosis [facility] [facility] 36 [facility] [address] [place] [phone] 02/15/2025 Alexis Montanez Peripheral vascular disease I73.9 [...] Provider Name:Alexis hickey, 07/03/2025 10:30:00 AM, [address] [facility] 36 [facility], [address], [place], [phone], Provider Name:Alexis hickey, 09/02/2025 11:45:00 AM, [address] [facility] 36 [facility], [address], [place], [phone], Progress Notes * LASHAWN ZAMORA ADOB: [birth year] (85 yo F)Acc No.[id number]:02/15/2025 Progress Notes Patient: LASHAWN ALAN Provider: Jazmín Montanez M.D. :1940 A ge:84 Y S ex:Female Date:02/15/2025 Address:[address] [place] [address], [place], [id number] Pcp:Buck Valencia Subjective: * Chief Complaints: * 1 . [facility] D/C fu. * HPI: H PI: Patient is here today for a Transition of Care Visit after having a stent placed in her right popliteal artery. Discharge from the following Facility: [facility] ,Discharge date: Tuesday02/01/2025 ,Date of phone contact [...] Stent placed in right popliteal artery at [facility] 01/2025. * Hospitalization/Major Diagno stic Procedure: V omiting- [facility] ER 12/2012, [facility] 10/29-, [place] 11/20-04/2014, Chest Pain- [facility] ER 10/28/2016, COPD, Asthma- [facility] ER 12/2017, COPD, Asthma- [facility] 04/2018, Stent Placement - [facility]/BK 05/2018, stent placement- [facility] 03/20/19, Stent Placement (L) foot- [facility] 08/16-08/18/2019, PAD- [facility] 08/21-09/2020, Vascular Procedure-Leg Discomfort After Surgery- [facility] 03/13/2021. * Family History: F ather: , coronary artery disease- [place]. M other: , coronary artery disease, diabetes, [...] disease - I73.9 (Primary) 2 . B [place] 21.0-21.9, adult - Z68.21 Plan: * Treatment: 2. O thers Notes: Discharge summary with available lab/diagnostic imaging results obtained and reviewed. Discharge medication list reconciled. Appropriate counseling provided. Moderate Complexity * Procedure Codes: 9 9495 TRANS [facility]ARE [facility] 14 DAY DISCH, 1111F DSCHR MED/CURENT MED MERGE, G2211 Complex e/m visit add on, G8752 MOST RECENT SYSTOLIC BP < 140MM HG, G8754 MOST RECENT DIASTOLIC BP < 90MM HG * Follow Up: a s scheduled,and prn * Images: Billing Information: * Visit Code: 48038 Office Visit, Est Pt., Level 3. * Procedure Codes: 05428 TRANS CARE [facility] 14 DAY DISCH. 1111F DSCHR MED/CURENT MED MERGE. G2211 Complex e/m visit add on. G8752 MOST RECENT SYSTOLIC BP < 140MM HG. G8754 MOST RECENT DIASTOLIC BP < 90MM HG. * Electronic signature of Carmita Montanez MD on 06/27/2025 at 09:29 AM EDT Sign off status: Pending * Provider: Jazmín Montanez M.D. Date: 0 02/15/2025 Generated for Naderi sidney/Nena/eTransmitting on: 0 06/27/2025 09:29 AM EDT History and Physical Notes * HPI (History of Present Illness) Category Sub-Category Detail Notes Category Not es HPI Patient is here today for a [facility] of Care Visit after having a stent placed in her right popliteal artery. Discharge from the following Facility: [facility] ,Discharge date: Tuesday02/01/2025 ,Date of phone contact following discharge: 2 messages left 02/05/2025, spoke with patient son on 02/06/2025 Examination Category Sub-Category Detail Notes Category Not es General Examination Heart: RSR Lungs: clear to auscultatio n Extremities: no leg edema General Appearance: NAD
--- OUTSIDE RECORDS SUMMARY | 2025-03-22 07:15 | XMS_ITS ---
Author Organization [facility] Address [address] [facility] [address] [place] [id number] Care Team Providers Care Surface Ship Usw Supervisor Name Role Phone Buck Valencia Primary Care Provider Alexis Montanez [phone] Allergies Allergen (clinical drug ingredient) Drug/Non Drug Allergy documented on EMR Reaction Allergy Type Onset Date Status acetaminophen / hydrocodone HYDROcodone-Acetamino phen vomiting Drug Allergy Active codeine Codeine rash Drug Allergy Active morphine Morphine Unknown Drug Allergy Active Penicillin Unknown Drug Allergy Active REASON FOR VISIT 3 months check up Encounters Encounter Location Date Provider Diagnosis [facility] [address] [facility] [address] [place] [phone] 03/22/2025 Alexis Montanez Plan Of Treatment Next Appt Details Provider Name:Alexis hickey, 07/03/2025 10:30:00 AM, [address] [facility], [address], [place], [phone], Provider Name:Alexis hickey, 09/02/2025 11:45:00 AM, [address] [facility], [address], [place], [phone], Progress Notes * LASHAWN ZAMORA ADOB: [birth year] (85 yo F)Acc No.[id number]:03/22/2025 Progress Notes Patient: Barrie LASHAWN ELIZABETH Provider: Jazmín Montanez M.D. 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 Chadwick , Stent placed in right popliteal artery at [facility] 01/2025. * Hospitalization/Major Diagno stic Procedure: V omiting- [facility] ER 12/2012, [facility] 10/29-, [place] 11/20-04/2014, Chest Pain- [facility] ER 10/28/2016, COPD, Asthma- [facility] ER 12/2017, COPD, Asthma- [facility] 04/2018, Stent Placement - [facility] 05/2018, stent placement- [facility] 03/20/19, Stent Placement (L) foot- [facility] 08/16-08/18/2019, PAD- [facility] 08/21-09/2020, Vascular Procedure-Leg Discomfort After Surgery- [facility] 03/13/2021. * Family History: F ather: , coronary artery disease- [place]. M other: , coronary artery disease, diabetes, [...] 03/22/2025 Generated for Oh little/Nena/Neenaitting on: 0 06/27/2025 09:28 AM EDT History [...]
--- OUTSIDE RECORDS SUMMARY | 2025-05-01 06:45 | XMS_ITS ---
Author Organization [facility] Address [address] [facility] [address] [place] [id number] Care Team Providers Care Saturator Tender Name Role Phone Buck Valencia Primary Care Provider Tom Montanezian Unavailable [phone] Allergies Allergen (clinical drug ingredient) Drug/Non Drug [...] 52 Performing Lab: Notes/Report: Test performed by [facility] , [address], [place] [address] Mehdi Rodríguez MD, Mail Machine Operator CLIA: [id number] Sodium 140 135-145 mmol/L Potassium 5.1 3.5-5.3 mmol/L Chloride 100 97-108 mmol/L CO2 29 20-32 mmol/L Glucose 104 65-99 mg/dL BUN 24 8-23 mg/dL Creatinine 1.05 0.50-1.00 mg/dL Calcium 9.7 8.6-10.4 mg/dL eGFR by Creatinine 52 >59 mL/min/1.73m2 P-Vitamin D 25-Hydroxy Reviewed date:05/02/2025 09:01:58 AM Interpretation:49.2 Performing Lab: Notes/Report: Test performed by [email or web address], [facility] [address] [place] [address] , [address], [place] [address] Mehdi Rodríguez MD, Mail Machine Operator CLIA: [id number] Vitamin D 25-Hydroxy 49.2 30.0-100.0 ng/mL Interpretation [...] Duration: 30 day(s) 07/14/2022 Active Vital Signs Blood pressure systolic 114 mm Hg 05/01/20 25 Blood pressure diastolic 60 mm Hg 025 Heart Rate 72 /min 05/01/2025 Height 58 in 05/01/2025 Weight 102 lbs 05/01/2025 BMI 21.32 kg/m2 05/01/2025 Encounters Encounter Location Date Provider Diagnosis [facility] [address] [facility] 36 [facility] [address] [place] [phone] 05/01/2025 Alexis Montanez Essential hypertensi on I10 [...] test results,4 Months, Reason: Provider Name:Alexis hickey, 07/03/2025 10:30:00 AM, [address] [facility] 36 [facility], [address], [place], [phone], Provider Name:Alexis hickey, 09/02/2025 11:45:00 AM, [address] [facility] 36 [facility], [address], [place], [phone], Progress Notes * LASHAWN ZAMORA ADOB: [birth year] (85 yo F)Acc No.[id number]:05/01/2025 Progress Notes Patient: LASHAWN ALAN Provider: Jazmín Montanez M.D. :1940 A ge:85 Y S ex:Female Date:05/01/2025 Address:[address] [place] [address] [place], [id number] Pcp:Buck Valencia Subjective: * Chief Complaints: * [...] in right popliteal artery at [facility] 01/2025. * Hospitalization/Major Diagno stic Procedure: V omiting- [facility] ER 12/2012, [facility] 10/[facility]-, [place] 11/20-04/2014, Chest Pain- [facility] ER 10/28/2016, COPD, Asthma- [facility] ER 12/2017, COPD, Asthma- [facility] 04/2018, Stent Placement - [facility] 05/2018, stent placement- [facility] 03/20/19, Stent Placement (L) foot- [facility] 08/16-08/18/2019, PAD- [facility] 08/21-09/2020, Vascular Procedure-Leg Discomfort After Surgery- [facility] 03/13/2021. * Family History: F ather: , coronary artery disease- [place]. M other: , coronary artery disease, diabetes, [...] D izziness - R42 5 . B [place] 21.0-21.9, adult - Z68.21 ? Plan: * [...] G 2211 Complex e/[place], [address] GLUCOSE TEST, 43599 GLYCATED HEMOGLOBIN TEST, Modifiers: QW , 3044F HG A1C LEVEL LT 7.0%, 1036F TOBACCO NON-USER, G8420 BMI<30 AND >=22 CALC & DOCU, G8950 PREHTN/HTN BP DOC INDCD F/U DOC, G8752 MOST RECENT SYSTOLIC BP < 140MM HG, G8754 MOST RECENT DIASTOLIC BP < 90MM HG * Follow Up: v ia phone to report test results,4 Months * Images: Billing Information: * Visit Code: 46651 Office Visit, Est Pt., Level 4. * Procedure Codes: G2211 Complex e/[place]. [address] GLUCOSE TEST. 29606 GLYCATED HEMOGLOBIN TEST. Modifiers: QW 3044F HG [...] 0 05/01/2025 Generated for Oh little/Nena/eTransmitting on: 0 06/27/2025 09:28 AM EDT History [...]
[2025-06-27] VITALS (19 sets, daily range): BP systolic 90–193; BP diastolic 49–121; PULSE 60–89; RESP 12–19; TEMP 36.4–36.9; O2SAT 96–99; BMI 21.2; BMI 21.4
--- OUTSIDE RECORDS SUMMARY | 2025-06-27 09:28 | XMS_ITS | Patient Health Record ---
Author Organization [facility] Address [address] [facility] [address] [place] [id number] Care Team Providers Care Project Administrative Assistant Name Role Phone Buck Valencia Primary Care Provider Don King Unavailable [phone] Alexis Montanez Unavailable [phone] Allergies Allergen (clinical drug ingredient) Drug/Non Drug Allergy documented on EMR Reaction Allergy Type Onset Date Status acetaminophen / hydrocodone HYDROcodone-Acetamino phen vomiting Drug Allergy Active codeine Codeine rash Drug Allergy Active morphine Morphine Unknown Drug Allergy Active Penicillin Unknown Drug Allergy Active Results Component Value Reference Range Notes H-Sputum Culture with Gram Lata murphy Reviewed date:11/06/2024 10:08:57 AM Interpretation: Performing Lab: Notes/Report: Comment: Induce w/3ml NS neb tx if necessary GS Gram Stain: GS <10 White Blood Cells/LPF GS <10 Epithelial Cells / LPF GS No Organisms Seen CUSPU ORGANISM 1: Staphylococcus aureus RX BATES: R- Resistant S- Susceptible I- Intermediate * Not on [facility] CUSPU Quantify Many RX BATES: R- Resistant S- Susceptible I- Intermediate * Not on [facility] CUSPU RX BATES: R- Resistant S- Susceptible I- Intermediate * Not on [facility] CUSPU RX BATES: R- Resistant S- Susceptible I- Intermediate * Not on [facility] CUSU Staphylococcus aureu s: REACTION RX BATES: R- Resistant S- Susceptible I- Intermediate * [facility] Clindamycin <=0.5 S RX BATES: R- Resistant S- Susceptible I- Intermediate * Not on [facility] Erythromycin >4 R RX BATES: R- Resistant S- Susceptible I- Intermediate * Not on [facility] Gentamicin <=1 S RX BATES: R- Resistant S- Susceptible I- Intermediate * Not on [facility] Minocycline <=1 S RX BATES: R- Resistant S- Susceptible I- Intermediate * Not on [facility] Oxacillin >2 R RX BATES: R- Resistant S- Susceptible I- Intermediate * Not on [facility] Penicillin >1 R RX BATES: R- Resistant S- Susceptible I- Intermediate * Not on [facility] Rifampin <=0.5 S RX BATES: R- Resistant S- Susceptible I- Intermediate * Not on [facility] Tetracycline <=0.5 S RX BATES: R- Resistant S- Susceptible I- Intermediate * Not on [facility] Trimethoprim/Sulfame tho xazole <=0.5/9.5 S RX BATES: R- Resistant S- Susceptible I- Intermediate * Not on [facility] Vancomycin <=0.5 S RX BATES: R- Resistant S- Susceptible I- Intermediate * Not on [facility] RX BATES: R- Resistant S- Susceptible I- Intermediate * Not on [facility] This organism is a Methicillin Resistant Staph aureus. RX BATES: R- Resistant S- Susceptible I- Intermediate * Not on [facility] Results called to: Buck ROBLES at 0843 by Ada NORIEGA . RX BATES: R- Resistant S- Susceptible I- Intermediate * Not on [facility] Reviewed date:11/05/2024 08:12:47 AM Interpretation: Performing Lab: Notes/Report: NA 136 136-145 mmol/L K 4.7 3.5-5.1 mmoL/L Delta: 3.7 on 11/02/24 CL 105 98-107 mmol/L CO2 28 22.0-30.0 mmol/L GAP 7.7 5-15 mEq/L BUN 9 7-17 mg/dl Delta: 14 on 11/02/24 CREATT 0.70 0.52-1.04 mg/dl CRCLE 34 50-200 mL/min GFRAA 97 >60 ML/MIN EGFR 80 >60 ml/min GLU 153 74-100 mg/dl CA 9.1 8.4-10.2 mg/dl M-Complete Blood Count Man D if Reviewed date:11/05/2024 08:12:47 AM Interpretation: Performing Lab: Notes/Report: WBC 9.7 4.8-10.8 K/mm3 Delta: 14.4 o n 11/02/24 RBC 4.19 4.20-5.40 M/mm3 HGB 12.0 12.2-16.2 g/dL HCT 37.9 37.0-47.0 % MCV 90.5 81-99 fl MCH 28.6 27.0-31.2 pg MCHC 31.7 31.8-35.4 g/dL RDW 11.9 11.5-17.5 % PLT 440 142-424 K/mm3 Delta: 339 on 11/02/24 MPV 9.5 7.4-10.4 fl NE% 52.7 37.0-80.0 % LY% 34.0 10-50 % MO% 7.6 1.7-9.3 % EO% 4.9 0.1-12.0 % BA% 0.4 0.1-2.0 % NE# 5.1 1.8-7.8 K/mm3 LY# 3.3 0.7-4.5 K/mm3 MO# 0.7 0.1-1.0 K/mm3 EO# 0.5 0.0-0.4 K/mm3 BA# 0.0 0-0.2 K/mm3 MDIFF MANUAL DIFFERENTIAL MANUAL DIFF TCC 100 NEUT%M 49 42-76 % LYMPH%M 45 10-50 % MONO%M 4 2-9 % EOS%M 2 0-3 % PLTE Normal RM Normal P-Vitamin D 25-Hydroxy Reviewed date:05/02/2025 09:01:58 AM Interpretation:49.2 Performing Lab: Notes/Report: Test performed by [employer] [facility] [place] , [address], [place] [address] Mehdi Rodríguez MD, [employer] CLIA: [id number] Vitamin D 25-Hydroxy 49.2 30.0-100.0 ng/mL Interpretation of Vitamin D 25 OH: < 20 ng/mL - Deficiency 20 - 29 ng/mL - Insufficiency 30 - 100 ng/mL - Sufficiency > 100 ng/mL - Super-therapeutic- toxicity may occur above this level. Clinical correlation required. P-Basic Metabolic Panel (BMP ) Reviewed date:05/02/2025 09:01:57 AM Interpretation:Glu 104, BUN 24, Creat 1.05, eGFR 52 Performing Lab: Notes/Report: Test performed by [employer] [address] [place] [address] , [address], [place] [address] Mehdi Rodríguez MD, [employer] CLIA: [id number] Sodium 140 135-145 mmol/L Potassium 5.1 3.5-5.3 mmol/L Chloride 100 97-108 mmol/L CO2 29 20-32 mmol/L Glucose 104 65-99 mg/dL BUN 24 8-23 mg/dL Creatinine 1.05 0.50-1.00 mg/dL Calcium 9.7 8.6-10.4 mg/dL eGFR by Creatinine 52 >59 mL/min/1.73m2 Glycohemoglobin A1c (in hous e) Reviewed date:05/01/2025 11:46:56 AM Interpretation: Performing Lab: Notes/Report: glycohemoglobin 6.6% 5 - 6.5 % Glucose (In-House) Reviewed date:05/01/2025 11:46:25 AM Interpretation: Performing Lab: Notes/Report: blood glucose 149 74 - 106 mg/dL P-Culture, Urine Reviewed date:12/24/2024 10:55:44 AM Interpretation:No growth Performing Lab: Notes/Report: Test performed by [employer] [address] [place], [place] [address] [place] , [address], [place] [address] Mehdi Rodríguez MD, [employer] CLIA: [id number] Specimen Source Urine - Void Culture, Urine See Below Final Report : No growth Urinalysis - Inhouse Reviewed date:12/24/2024 10:56:33 AM Interpretation: Normal Performing Lab: Notes/Report: Normal Color/Clarity yellow/clear Leuk 1+ Nitrite Neg Urobili 3.2 Protein Neg pH 5.5 Blood Neg Sp. Gr. 1.010 Ketone Neg Bili Neg Gluc Neg P-Vitamin D 25-Hydroxy Reviewed date:12/21/2024 09:12:59 AM Interpretation:Normal Performing Lab: Notes/Report: Test performed by [employer] [address] , [place] [address] Mehdi Rodríguez MD, [employer] CLIA: [id number] Vitamin D 25-Hydroxy 55.0 30.0-100.0 ng/mL Interpretation of Vitamin D 25 OH: < 20 ng/mL - Deficiency 20 - 29 ng/mL - Insufficiency 30 - 100 ng/mL - Sufficiency > 100 ng/mL - Super-therapeutic- toxicity may occur above this level. Clinical correlation required. P-Microalbumin/Creatinine, R andom Urine Sample Reviewed date:12/24/2024 10:56:33 AM Interpretation: Normal Performing Lab: Notes/Report: Test performed by [employer] [address] [place] [address] , [place] [address] Mehdi Rodríguez MD, [employer] CLIA: [id number] Albumin/Creatinine Ratio, Urine 24 0-30 ug/mg Microalbumin, Urine, Random 1.0 Creatinine, Urine 41.8 P-TSH reflex to FT4 Reviewed date:12/21/2024 09:12:59 AM Interpretation:Normal Performing Lab: Notes/Report: Test performed by [employer] [address] , [place] [address] Mehdi Rodríguez MD, [employer] CLIA: [id number] TSH reflex to FT4 2.13 0.43-5.25 mU/L P-Basic Metabolic Panel (BMP ) Reviewed date:12/21/2024 09:12:59 AM Interpretation:gluc 146, bun 27, Cr 1.03, gfr 54 Performing Lab: Notes/Report: Test performed by [employer] [address] [place] [address] , [address], [place] [address] Mehdi Rodríguez MD, [employer] CLIA: [id number] Sodium 141 135-145 mmol/L Potassium 4.7 3.5-5.3 mmol/L Chloride 100 97-108 mmol/L CO2 31 22-32 mmol/L Glucose 146 65-99 mg/dL BUN 27 8-23 mg/dL Creatinine 1.03 0.50-1.00 mg/dL Calcium 9.5 8.6-10.4 mg/dL eGFR by Creatinine 54 >59 mL/min/1.73m2 Glycohemoglobin A1c (in hous e) Reviewed date:12/20/2024 06:00:53 PM Interpretation: Performing Lab: Notes/Report: glycohemoglobin 6.2% 5 - 6.5 % CBC Venipuncture (in house) Reviewed date:12/20/2024 06:01:01 [...] - 38 platlet 236 100 - 400 Glucose (In-House) Reviewed date:12/20/2024 06:00:44 PM Interpretation: Performing Lab: Notes/Report: blood glucose 168 74 - 106 mg/dL Urinalysis - Inhouse Reviewed date:12/21/2024 04:39:47 PM Interpretation: Performing Lab: Notes/Report: H-BMP Reviewed date:11/02/2024 08:29:44 AM Interpretation: Performing Lab: Notes/Report: NA 137 136-145 mmol/L K 3.7 3.5-5.1 mmoL/L CL 102 98-107 mmol/L CO2 29 22.0-30.0 mmol/L GAP 9.7 5-15 mEq/L BUN 14 7-17 mg/dl Delta: 20 on 10/31/24-1530 CREATT 0.80 0.52-1.04 mg/dl CRCLE 34 50-200 mL/min GFRAA 83 >60 ML/MIN EGFR 69 >60 ml/min GLU 95 74-100 mg/dl CA 8.5 8.4-10.2 mg/dl H-CBC Reviewed date:11/02/2024 08:29:44 AM Interpretation: Performing Lab: Notes/Report: WBC 14.4 4.8-10.8 K/mm3 RBC 3.76 4.20-5.40 M/mm3 HGB 11.1 12.2-16.2 g/dL HCT 33.7 37.0-47.0 % MCV 89.6 81-99 fl MCH 29.5 27.0-31.2 pg MCHC 32.9 31.8-35.4 g/dL RDW 11.9 11.5-17.5 % PLT 339 142-424 K/mm3 MPV 9.4 7.4-10.4 fl NE% 63.6 37.0-80.0 % LY% 21.7 10-50 % MO% 10.9 1.7-9.3 % EO% 3.0 0.1-12.0 % BA% 0.3 0.1-2.0 % NE# 9.1 1.8-7.8 K/mm3 LY# 3.1 0.7-4.5 K/mm3 MO# 1.6 0.1-1.0 K/mm3 EO# 0.4 0.0-0.4 K/mm3 BA# 0.0 0-0.2 K/mm3 Urinalysis - Inhouse Reviewed date:11/23/2024 01:49:50 PM Interpretation: Performing Lab: Notes/Report: Color/Clarity yellow/clear Leuk Trace Nitrite Neg Urobili 3.2 Protein Neg pH 6.0 Blood Trace-Intact Sp. Gr. 1.020 Ketone Neg Bili Neg Gluc Neg P-Culture, Urine Reviewed date:11/27/2024 09:14:15 AM Interpretation:No Significant Growth Performing Lab: Notes/Report: Test performed by [employer] [address] [place] [address] , [address], [place] [address] Mehdi Rodríguez MD, [employer] CLIA: [id number] Specimen Source Urine - Void Culture, Urine See Below Final Report : No Significant Growth H-CBC Reviewed date:02/01/2025 08:34:35 AM Interpretation: Performing Lab: Notes/Report: WBC 10.5 4.8-10.8 K/mm3 RBC 4.16 4.20-5.40 M/mm3 HGB 12.2 12.2-16.2 g/dL Delta: 14.1 o n 01/31/25-1028 HCT 38.0 37.0-47.0 % MCV 91.3 81-99 fl MCH 29.6 27.0-31.2 pg MCHC 32.4 31.8-35.4 g/dL RDW-SD 41.8 RDW 12.6 11.5-17.5 % PLT 243 142-424 K/mm3 MPV 9.7 7.4-10.4 fl NE% 60.9 37.0-80.0 % LY% 25.0 10-50 % MO% 8.7 1.7-9.3 % EO% 4.9 0.1-12.0 % BA% 0.3 0.1-2.0 % NRBC% 0 NE# 6.4 1.8-7.8 K/mm3 LY# 2.6 0.7-4.5 K/mm3 MO# 0.9 0.1-1.0 K/mm3 EO# 0.5 0.0-0.4 K/mm3 BA# 0.0 0-0.2 K/mm3 NRBC# 0 H-BMP Reviewed date:02/01/2025 08:34:35 AM Interpretation: Performing Lab: Notes/Report: NA 138 136-145 mmol/L K 4.1 3.5-5.1 mmoL/L CL 103 98-107 mmol/L CO2 26 22.0-30.0 mmol/L GAP 13.1 5-15 mEq/L BUN 22 7-17 mg/dl CREATT 0.80 0.52-1.04 mg/dl CRCLE 34 50-200 mL/min GFRAA 83 >60 ML/MIN Delta: 64 on 01/31/25 EGFR 69 >60 ml/min GLU 86 74-100 mg/dl Delta: 143 on 01/31/25 CA 8.7 8.4-10.2 mg/dl Reason For Referral No Information Medications Medication SIG (Take, Route, Frequency, Duration) Notes Start Date End Date Status Digoxin 125 MCG 1 tab(s) orally once a day Active Aspirin 81 MG 1 tab(s) orally once a day Active Gabapentin 300 MG 1 cap(s) orally 2 ti mes a day; Duration: 30 days 03/25/2025 Active Clopidogrel Bisulfate 75 MG 1 tab(s) ora lly once a day Active Symbicort 160-4.5 MCG/ACT Inhale 2 puffs by mouth twice daily; Duration: 30 Active Losartan Potassium 100 MG 1 tab(s) orall y once a day Active Vitamin D3 125 MCG (5000 UT) 1 cap(s) orally once a day; Duration: 30 day(s) 07/14/2022 Active Pravastatin Sodium 40 MG 1 tablet Orally Once a day; Duration: 30 days Active Eliquis 2.5 MG [...] TWO TIMES A DAY; Duration: 90 Active Carvedilol 3.125 MG 1 tablet with food O rally Twice a day; Duration: 30 day(s) Active hydrOXYzine HCl 25 MG 1 tablet as needed Orally Two times a day 02/18/2025 Active Immunizations Vaccine Route Administration Date Status Comme nts COVID 19 Pfizer Unknown 11/01/2020 Administered COVID 19 Pfizer Unknown 11/21/2020 Administered Fluzone High Dose (65yr and older) IM Intramuscular 09/04/2018 Administered PNEUMOVAX 23 VACCINE IM Intramuscular 02/18/2021 Administe red Prevnar (PCV13) IM Intramuscular 11/13/2018 Administered Problems Problem Type SNOMED Code ICD Code Onset Dates Problem Status W/U Status Risk Notes Problem Essential hypertension (52010298) Essential (primary) hypertension (I10) Active confirmed Problem Vitamin D deficiency (13876335) Vitamin D deficiency (E55.9) Active confirmed Problem Essential hypertension (67197953) Essential hypertension (I10) Active confirmed Problem Acute exacerbation of chronic obstructive airways disease (919015381) COPD with exacerbation (J44.1) Active confirmed Problem Osteopenia (652522309) Osteopenia (M85.80) Active confirmed Problem Mixed anxiety and depressive disorder (356227422) Depression with anxiety (F41.8) Active confirmed Problem Paroxysmal atrial fibrillation (893455844) Paroxysmal atrial fibrillation (I48.0) Active confirmed Problem Acute exacerbation of chronic obstructive airways disease (679939972) COPD exacerbation (J44.1) Active confirmed Problem Memory loss (29896027) Memory loss (R41.3) Active confirmed Problem Murmur (780779147) Murmur (R01.1) Active confir med Problem Diabetic renal disease (950263348) Type 2 diabetes mellitus with diabetic chronic kidney disease (E11.22) Active confirmed Problem Chronic systolic heart failure (785719464) Chronic systolic (congestive) heart failure (I50.22) Active confirmed Problem Peripheral vascular disease (477073002) Peripheral vascular disease, unspecified (I73.9) Active confirmed Problem History of peripheral vascular angioplasty (15847875592582945 ) Peripheral vascular angioplasty status (Z98.62) Active confirmed Problem Peripheral vascular disease (845746705) Peripheral vascular disease (I73.9) Active confirmed Problem Depressive disorder (38993608) Depressive disorder (F32.9) Active confirmed Problem Chronic obstructive pulmonary disease (83287915) Asthmatic bronchitis , chronic (J44.9) Active confirmed Problem Uncomplicated moderate persistent asthma (999496906) Moderate persistent asthma without complication (J45.40) Active confirmed Problem Renal insufficiency (340495793) Renal insufficiency (N28.9) Active confirmed Problem COPD - Chronic obstructive pulmonary disease (71562902) Chronic obstructive pulmonary disease, unspecified COPD type (J44.9) Active confirmed Problem Atrial fibrillation (90968650) PAF (paroxysmal atrial fibrillation) (I48.0) Active confirmed Problem Claudication (93331721) Claudication (I73.9) Active confirmed Problem Exacerbation of moderate persistent asthma (disorder) (592227327) Moderate persistent asthma with acute exacerbation (J45.41) Active confirmed Problem Hyperlipidaemia (51559103) Hyperlipidemia, unspecified hyperlipidemia type (E78.5) Active confirmed Problem Dyslipidemia (039854904) Dyslipidemia (E78.5) Active confirmed Problem Peripheral vascular disease (972281652) PAD (peripheral artery disease) (I73.9) Active confirmed Problem 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 (695882234185491) Atherosclerosis of [place] coronary artery without angina pectoris, unspecified whether [place] tribe or transplanted heart (I25.10) Active confirmed Problem Left bundle branch block (88215821) Left bundle branch block (I44.7) Active confirmed Problem Type II diabetes mellitus without complication (589861947) Type 2 diabetes mellitus without complication, unspecified whether terminologist insulin use (E11.9) Active confirmed Problem S/P peripheral artery angioplasty with stent placement (Z95.820) Active confirmed Problem Systolic heart failure (007996088) HFrEF (heart failure with reduced ejection fraction) (I50.20) Active confirmed Problem Chronic kidney disease stage 3A (disorder) (175136711) Stage 3a chronic kidney disease (CKD) (N18.31) Active confirmed Problem Status post amputation of toe (Z89.429) Active confirmed Problem Cerebral atherosclerosis (87159407) Intracranial atherosclerosis (I67.2) Active confirmed Vital Signs Heart Rate 72 /min 05/01/2025 Blood pressure diastolic 60 mm Hg 05/01/2025 Height 58 in 05/01/2025 Blood pressure systolic 114 mm Hg 05/01/2025 Weight 102 lbs 05/01/2025 BMI 21.32 kg/m2 05/01/2025 Encounters Encounter Location Date Provider Diagnosis [facility] [facility] [address] [place] [id number] 07/05/2024 R Jefferson King Acute bronchitis J20 .9 and COPD exacerbation J44.1 [facility] [address] [place] [id number] 11/22/2024 [place] Bacteremia R78.81 ; Urinary tract infection without hematuria, site unspecified N39.0 and Pneumonia due to infectious organism, unspecified laterality, unspecified part of lung J18.9 [facility] [facility] [address] [place], [place] [id number] 12/20/2024 [place] Type 2 diabetes mellitus without complication, unspecified whether fpc insulin use E11.9 ; Stage 3a chronic kidney disease (CKD) N18.31 ; Acute cough R05.1 and Vitamin D deficiency E55.9 [facility] [address] [facility] [address] [place], [place] [id number] 12/21/2024 [place]is [place] Pyuria R82.81 [facility] [address] [place], [place] [id number] 02/15/2025 [place]is [place] Peripheral vascular disease I73.9 and BMI 21.0-21.9, adult Z68.21 [facility] [address] [place], [place] [id number] 05/01/2025 [place]is [place] Essential hypertensi on I10 ; Type 2 diabetes mellitus with diabetic chronic kidney disease E11.22 ; Vitamin D deficiency E55.9 ; Dizziness R42 and BMI 21.0-21.9, adult Z68.21 [facility] [address] [place], [place] [id number] 07/02/2024 Buck Valencia [facility] [address] [place], [place] [id number] 10/18/2024 [place] [facility] [address] [place], [place] [id number] 11/06/2024 [place] [facility] [address] [place], [place] [id number] 11/06/2024 [place] [facility] [address] [place], [place] [id number] 11/20/2024 Buck Valencia [facility] [address] [place], [place] [id number] 12/21/2024 [place] [facility] [address] [place] [id number] 02/05/2025 [place] [facility] [address] [place], [place] [id number] 02/18/2025 [place] [facility] [address] [place] [id number] 03/25/2025 [place] [facility] [address] [place], [place] [id number] 05/02/2025 [place] [facility] [address] [place], [place] [id number] 05/20/2025 Buck Valencia Assessments Encounter Date Diagnosis (ICD Code) Assessment Notes Treatment Notes Treatment Clinical Notes Section Notes 07/05/2024 Acute bronchitis (ICD-10 - J20.9) 07/05/2024 COPD exacerbation (ICD-10 - J44.1) 11/22/2024 Bacteremia (ICD-10 - R78.81) Clinically resolved 11/22/2024 Urinary tract infection without hematuria, site unspecified (ICD-10 - N39.0) 12/20/2024 Stage 3a chronic kidney disease (CKD) (ICD-10 - N18.31) 12/21/2024 Pyuria (ICD-10 - R82.81) 02/15/2025 Peripheral vascular disease (ICD-10 - I73.9) Keep follow up with cardiology, take all medication as prescribed 02/15/2025 BMI 21.0-21.9, adult (ICD-10 - Z68.21) 12/20/2024 Type 2 diabetes mellitus without complication, unspecified whether fpc insulin use (ICD-10 - E11.9) 05/01/2025 Essential hypertension (ICD-10 - I10) 05/01/2025 Type 2 diabetes mellitus with diabetic chronic kidney disease (ICD-10 - E11.22) 12/20/2024 Acute cough (ICD-10 - R05.1) 05/01/2025 Vitamin D deficiency (ICD-10 - E55.9) 11/22/2024 Pneumonia due to infectious organism, unspecified laterality, unspecified part of lung (ICD-10 - J18.9) Clinically resolved 12/20/2024 Vitamin D deficiency (ICD-10 - E55.9) 05/01/2025 Dizziness (ICD-10 - R42) Plan to stop Lasix and monitor for changes in dizziness 05/01/2025 BMI 21.0-21.9, adult (ICD-10 - Z68.21) 11/22/2024 Other Discharge summary with available lab/diagnostic imaging results obtained and reviewed. Discharge medication list reconciled. Appropriate counseling provided. Moderate Complexity 02/15/2025 Other Discharge summary with available lab/diagnostic imaging results obtained and reviewed. Discharge medication list reconciled. Appropriate counseling provided. Moderate Complexity Plan Of Treatment Next Appt Details Provider Name:Alexis hickey, 07/03/2025 10:30:00 AM, [address], [address], [place], [id number], Provider Name:Alexis hickey, 09/02/2025 11:45:00 AM, [address], [address], [place], [phone], Insurance Providers Payer Name Payer Address Payer Phone Subscriber Number Group Number Insured Name Patient Relationship to Insured Coverage Start Date Coverage End Date [employer] (MEDICAR E) [address] [address] [place] [phone] [phone] [id number] LASHAWN ZAMORA Self - patient is the insured Medications Administered Medication Instructions Date of Administration Dosage Notes phenergan 50mg/ml 12/18/2005 1 mL Medical (General) History Medical History History ICD Code Type 2 Diabetes Mellitus Hypertension Hypercholestrolemia Asthma COPD CHF, Abnormal Echo 2017 Coronary Artery Disease Atrial Fibrillation Cardiac Murmur Peripheral Vascular Disease Surgical History Surgery Date(Month/Year) Tubal Ligation Deviated Septum Repair 3 Stents, LT Upper Thigh 10/29/2013 1 Stent, RT Upper Thigh 11/22/2013 3 Stents, LT thigh - [facility] 03/2019 Balloon Angioplasty - Femoral Artery and Popiteal Artery (L) 08/16/2019 LT Leg Balloon Angioplasty 08/07/2020 Bilateral Leg Stents Replaced 08/2020 RT 3-4 Toe Amputation 03/27/2021 PPM - Dr. Chadwick Stent placed in right popliteal artery a t [facility] 01/2025 Hospitalization History Reason Date(Month/Year) Vascular Procedure-Leg Discomfort After Surgery- [facility] 03/13/2021 PAD- [facility] 08/21-09/2020 Stent Placement (L) foot- [facility] 08/16-11/2018 stent placement- [facility] 03/20/19 Stent Placement - [facility] 05/2018 COPD, Asthma- [facility] 04/2018 COPD, Asthma- [facility] 12/2017 Chest Pain- [facility] 10/28/2016 [place] 11/20-04/2014 [facility] 10/29- Vomiting- [facility] 12/2012
--- NOTE | 2025-06-27 10:16 | CT_ITS ---
FINAL REPORT TECHNIQUE: Post contrast axial imaging of the aorta and bilateral lower extremity was obtained and reviewed.This study was performed with techniques to keep radiation doses as low as reasonably achievable (ALARA). Individualized dose reduction techniques using automated exposure control or adjustment of mA and/or kV according to the patient''s size were employed. CLINICAL HISTORY: acute limb ischemia, left , PLEASE PERFORM RUN OFF FINDINGS: There is no evidence of aortic aneurysm. The celiac's and superior mesenteric artery are patent without significant stenosis. There may be stenosis at the origin of the BELLA. It is patent distal to its origin. Evaluation difficult due to calcification. There is dense calcification at the origins of the renal arteries. They are patent, however, degree of stenosis is difficult to ascertain. There is prominent calcification in the iliac arteries. There is a moderate stenosis of the right common iliac artery just distal to its origin. The bilateral external and internal iliac arteries are patent. RIGHT: The right common femoral artery is patent. There is prominent calcification throughout the right lower extremity. There is a mild to moderate stenosis. The right superficial femoral artery is patent. There is either a significant stenosis or short segment occlusion of the profunda artery proximally. Evaluation of the more distal portions of the profunda artery are limited by calcification. The popliteal artery is patent proximally. At the level of the knee, it is occluded. In the proximal calf, there is contrast identified within the calf vessels proximally. However, more distally, there is of stenosis and areas of which contrast cannot be identified. LEFT: The left common femoral artery is patent. The superficial femoral artery and profunda are patent in the proximal thigh. The left SFA is significantly stenotic in the distal thigh and the popliteal artery is occluded proximally. Evaluation of the calf vessels is limited due to calcification. There does appear to be contrast in the anterior tibial artery to the level of the ankle. There are areas of stenosis and/or occlusion of the other calf vessels through the mid and distal calf. Review of the remaining abdomen and pelvis demonstrates no evidence of mass or adenopathy. There is no fluid collection or acute inflammatory process. No bowel obstruction. There is a small amount of free fluid in the pelvis. IMPRESSION: Extensive atherosclerotic disease as detailed above. Right popliteal artery occluded. Significant stenosis of the more distal left SFA. Limited evaluation of the calf vessels bilaterally due to atherosclerotic disease. Authenticated and ERN
[2025-06-27 10:23] LABS: Hematocrit 36.5 % (37.0-47.0); Hemoglobin 11.5 g/dL (12.2-16.2); Immature Granulocytes % 0.3 %; Mean Corpuscular HGB Conc 31.5 g/dL (31.8-35.4); Mean Corpuscular Hemoglobin 28.9 pg (27.0-31.2); Mean Corpuscular Volume 91.7 fl (81-99); Nucleated Red Blood Cells % 0 %; Platelet Count 263 K/mm3 (142-424); Red Blood Count 3.98 M/mm3 (4.20-5.40); Red Cell Distribution Width-SD 43.3 fL; White Blood Count 10.4 K/mm3 (4.8-10.8)
[2025-06-27 10:30] LABS: Alanine Aminotransferase 15 U/L (12-78); Albumin Level 3.8 g/dl (3.5-5.0); Albumin/Globulin Ratio 1.4 (1.1-1.8); Alkaline Phosphatase 57 U/L (38-126); Anion Gap 11.1 mEq/L (5-15); Aspartate Amino Transferase 37 U/L (14-36); Bilirubin,Total 0.7 mg/dl (0.2-1.3); Blood Urea Nitrogen 16 mg/dl (7-17); Calcium 8.6 mg/dl (8.4-10.2); Carbon Dioxide 27 mmol/L (22.0-30.0); Chloride 103 mmol/L (98-107); Creatine Kinase 156 U/L (30-135); Creatinine Clearance Estimated 31 mL/min (50-200); Creatinine,Serum 0.70 mg/dl (0.52-1.04); Estimated Glomerular Filt Rate 80 ml/min (>60); GFR (African American) 96 ML/MIN (>60); Globulin 2.7 g/dL (1.3-3.2); Glucose 109 mg/dl (74-100); Potassium 4.1 mmoL/L (3.5-5.1); Sodium 137 mmol/L (136-145); Total Protein,Serum 6.5 g/dl (6.3-8.2)
[2025-06-27] MEDS: 0.9 % SODIUM CHLORIDE 50 ML VIAL IV ×2 (10:42)
[2025-06-27] MEDS: IOPAMIDOL-370 (76%);100ML BOTTLE 20 ML IV (10:42)
[2025-06-27] MEDS: IOPAMIDOL-370 (76%);100ML BOTTLE 100 ML IV (10:42)
[2025-06-27] MEDS: SODIUM CHLORIDE 0.9% 10ML SYR (RAD ONLY) 10 ML IV (10:42)
--- NOTE | 2025-06-27 10:57 | ED_ITS ---
Discharge Plan Disposition Patient Disposition: Admitted Clinical Impressions Clinical Impression: Left popliteal artery occlusion Discharge ED Provider: Cassandra Acosta General Adult HPI <Nancy Betancourtcarmen (ED), OPERATIONS CHIEF - Last Filed: 06/27/25 14:13> General Chief complaint: PAIN Stated complaint: left leg pain, sent by PA Time Seen by Provider: 06/27/25 10:00 Mode of Arrival: Wheelchair Source of Information: Patient and Relative Description of Symptoms (Recalled from ER Triage Doc. by RN): Patient presents to ED from home with c/o left lower leg and foot pain, daughter reports patient had a left heart cath on Tuesday and was discharged yesterday. Reports patient has been an assist x2 since he procedure but she was independent prior, reports pain worsens with ambulation. Patient has a sore to the tip of her left great toe which she states was present prior to procedure. Patient is slightly confused, daughter reports patient is at baseline, notes hx of Dementia. History of Present Illness HPI narrative: 85-year-old female presents to the ED today for complaint of left lower leg and foot pain. Patient had a left femoral heart cath on Tuesday and was stented by Dr. Chadwick. Patient was kept overnight and DC'd yesterday. She said that she had been complaining of pain from her ankle to her foot. She has a sore on her toe from cutting her toenails and the sore is significantly worse since she had the heart cath. Patient called the cardiology office and was told to come to the ER to be evaluated. Patient went from walking on her own and now has an assist. Patient takes gabapentin 300 mg twice a day. Related Data Home Medications ?Medication ?Instructions ?Recorded ?Confirmed pravastatin 40 mg tablet 40 mg PO HS 03/31/18 5 budesonide-formoterol HFA 160 2 puffs inhalation BID 1 06/25/25 mcg-4.5 mcg/actuation aerosol inhaler (Symbicort) gabapentin 300 mg capsule 300 mg PO BID 01/05/2206/25 apixaban 2.5 mg tablet (Eliquis) 2.5 mg PO BID 5 06/25/25 clopidogrel 75 mg tablet 75 mg PO DAILY 01/31/2507/11 furosemide 20 mg tablet 20 mg PO DAILYP PRN Edema 06/25/25 Previous Rx's ?Medication ?Instructions ?Recorded carvedilol 6.25 mg tablet (Coreg) 6.25 mg PO BID #180 tabs 11/20/24 valsartan 40 mg tablet 40 mg PO BID #180 tabs 11/20 digoxin 125 mcg (0.125 mg) tablet 125 mcg PO DAILY #90 tabs 04/30/25 Allergies Allergy/AdvReac Type Severity Reaction Status Date / Time codeine (CODEINE) Allergy Unknown Unknown Verified 06/24/25 13:53 allergy reaction morphine Allergy Unknown Unknown Verified 06/24/25 13:53 allergy reaction fentanyl AdvReac Mild behavior Verified 06/24/25 13:53 changes diphenhydramine (From AdvReac Agitated Verified 06/24/25 13:53 Benadryl) doxycycline AdvReac Nausea Verified 06/24/25 13:53 PFSH <Nancy Waldrop (ED), OPERATIONS CHIEF - Last Filed: 06/27/25 14:13> [facility] Disclaimer: The information contained in this section may have been updated after the patient was seen, as this information can be updated by other users. Medical History (Updated 06/27/25 @ 15:40 by Nancy Waldrop (ED), OPERATIONS CHIEF) Ischemic pain of left foot Claudication Hyperlipemia HTN (hypertension) Paroxysmal atrial fibrillation Peripheral arterial disease CAD (coronary artery disease) Pain in right lower leg Intracranial arteriosclerosis Pneumonia UTI (urinary tract infection) Amputated toe of right foot Cellulitis Fracture of cuneiform bone of foot Acquired pes planus of right foot Osteomyelitis of toe of right foot Postoperative wound dehiscence Charcot's joint of right foot Postoperative dehiscence of skin wound Gangrene of toe Gangrene of toe of right foot Cough Ischemic ulcer of toe of right foot, limited to breakdown of skin Ischemic ulcer of toe of right foot Real time reverse transcriptase PCR positive for COVID-19 virus Peripheral vascular disease of lower extremity Pre-ulcerative calluses Pneumonia Peripheral arterial disease Abnormal ankle brachial index (MICHELE) Cardiac pacemaker in situ Acute bronchitis Left bundle branch block (LBBB) on electrocardiogram Tachy-jose francisco syndrome Near syncope Elevated blood pressure reading Anxiety Diabetic foot Keratosis Callus of foot Diabetic ulcer of right fifth toe Dry gangrene Skin ulcer of second toe of left foot with fat layer exposed Ulcer of left great toe due to diabetes mellitus Primary osteoarthritis of both feet Encounter for wound care Overweight (BMI 25.0-29.9) Type 2 diabetes mellitus without complication, without long-term current use of insulin Acquired hammertoes of both feet Osteomyelitis of toe Left foot infection Nail dystrophy Onychogryphosis Lower limb ischemia PAF (paroxysmal atrial fibrillation) PAD (peripheral artery disease) Leg wound, right Leg edema, right COPD (chronic obstructive pulmonary disease) Diabetes mellitus Rapid atrial fibrillation Pulmonary HTN Diastolic dysfunction Mitral regurgitation 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 A-fib Abnormal ECG Fatigue Dyspnea Atrial fibrillation with RVR Asthma with exacerbation Acute exacerbation of chronic obstructive airways disease CHF (congestive heart failure) Asthma Abnormal ankle brachial index (MICHELE) Abnormal electrocardiography Absence of posterior tibial pulse Anxiety Atrial fibrillation with rapid ventricular response Body mass index (BMI) of 25.0 to 29.9 Callus of foot Chronic obstructive pulmonary disease Coronary artery disease Diabetes mellitus Diabetic foot Diastolic dysfunction Dry gangrene Dystrophia unguium Heart murmur Hyperlipidemia Hypertension Infection of left foot Intermittent claudication Ischemia of lower extremity Keratosis Left bundle branch block (LBBB) determined by electrocardiography Leg wound, right 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 Mitral valve insufficiency Onychogryposis Osteomyelitis of toe Osteopenia determined by x-ray Pneumonia Pre-syncope Presence of cardiac pacemaker Primary osteoarthritis of both feet Pulmonary hypertension Rapid atrial fibrillation Skin ulcer of second toe of left foot with fat layer exposed Systemic inflammatory response syndrome (SIRS) Tachycardia-bradycardia Ulcer of left great toe due to diabetes mellitus Acquired hammer toes of both feet Ulcer of right fifth toe due to diabetes mellitus Memory loss Abnormal findings on diagnostic imaging of heart and coronary circulation Chronic HFrEF (heart failure with reduced ejection fraction) Claudication Surgical History (Updated 06/25/25 @ 17:38 by Yuliana Lombardi APRN) S/P amputation of lesser toe History of complete ray amputation of fourth toe of right foot History of complete ray amputation of third toe of right foot Status post foot surgery Status post placement of cardiac pacemaker S/P peripheral artery angioplasty with stent placement History of amputation of toe History of tubal ligation History of nasal surgery S/P peripheral artery angioplasty with stent placement Status post placement of cardiac pacemaker Family History Other Coronary artery disease Diabetes Heart attack Social History Smoking Status: Never smoker alcohol intake: never substance use type: denies use current occupational status: retired Travel in the last 8 weeks?: Inside the [place] household members: none housing: house current occupation: Works at [employer] current occupational exposures/hazards: No caffeine: Yes Have you lived/traveled outside [place] in past 30 days?: No Contact w/someone who lives/traveled outside US past 30 days?: No Exposure to someone with infectious disease in past 14 days?: No Do you have a fever (greater than 100.4 F or 38 C)?: No Have you tested positive for COVID-19?: No Exposed to someone with COVID-19 in past 14 days?: Yes Do you have a sore throat?: No Do you have a cough?: No Do you have any weakness?: No Do you have any diarrhea?: No Are you experiencing any unusual bleeding?: No Do you have any muscle aches/pain?: No Do you have any abdominal pain?: No Are you experiencing loss of taste or smell?: No Other Medical History Have you received the Flu Vaccine for this season: No Have you received the Pneumonia Vaccine: No <Nancy Waldrop (ED), OPERATIONS CHIEF - Last Filed: 06/27/25 14:13> ROS Obtained: Yes Systems reviewed as appropriate & no additional complaints except as documented Constitutional Constitutional: Reports as per HPI Physical Exam <Nancy Waldrop (ED), OPERATIONS CHIEF - Last Filed: 06/27/25 14:13> General General appearance: alert Head Head exam: atraumatic and normocephalic Eye Eye exam: Present PERRL and EOMI ENT ENT exam: Present normal oropharynx and mucous membranes moist Neck Neck exam: Present full ROM and trachea midline Respiratory Respiratory exam: Present normal lung sounds bilaterally Cardiovascular Cardiovascular exam: Present regular rate, normal rhythm, normal heart sounds, +S1 and +S2 Abdominal Exam Abdominal exam: Present soft and normal bowel sounds Extremities Exam Extremities exam: Present other (Decreased temperature in left leg especially ankle down to toes. Initially thought I felt the pulse but checked with Doppler and there is no flow or pulse) Neurological Exam Neurological exam: Present alert Psychiatric Psychiatric exam: Present normal mood Skin Skin exam: Present warm and dry Medical Decision Making <Nancy Waldrop (ED), OPERATIONS CHIEF - Last Filed: 06/27/25 14:13> Medical Records Screening: Per USPSTF and CDC recommendations, given the prevalence of disease in our region, it is our hospital?s policy to screen for HIV and viral Hepatitis for all patients aged 18 and over and those with ongoing risk factors. Hermes Inquiry Pt receiving controlled substance: No Hermes was queried for this patient: No Vital Signs: 06/27/25 09:03 06/27/25 09:10 06/27/25 09:31 Temperature 97.8 F Temperature Source Oral Pulse Rate 68 67 Pulse Rate [Left] 67 Respiratory Rate 17 17 17 Blood Pressure 147/61 H 153/65 H Blood Pressure [Right Arm] 147/61 H Blood Pressure Mean 89 90 Blood Pressure Mean [Right Arm] 89 Blood Pressure Source [Right Arm] Automatic Cuff Blood Pressure Position [Right Arm] Supine 02 Sat by Pulse Oximetry 98 98 97 Oxygen Delivery Method Room Air Room Air Room Air 06/27/25 10:00 06/27/25 10:31 06/27/25 10:48 Temperature Temperature Source Pulse Rate 63 80 Pulse Rate [Left] Respiratory Rate 17 Blood Pressure 123/52 L 153/60 H Blood Pressure [Right Arm] Blood Pressure Mean 90 Blood Pressure Mean [Right Arm] Blood Pressure Source [Right Arm] Blood Pressure Position [Right Arm] 02 Sat by Pulse Oximetry 98 98 96 Oxygen Delivery Method Room Air 06/27/25 11:01 06/27/25 11:30 06/27/25 12:00 Temperature Temperature Source Pulse Rate 71 62 68 Pulse Rate [Left] Respiratory Rate Blood Pressure 159/56 H 143/61 H 127/49 L Blood Pressure [Right Arm] Blood Pressure Mean Blood Pressure Mean [Right Arm] Blood Pressure Source [Right Arm] Blood Pressure Position [Right Arm] 02 Sat by Pulse Oximetry 98 97 97 Oxygen Delivery Method 06/27/25 13:00 06/27/25 13:30 06/27/25 14:00 Temperature Temperature Source Pulse Rate 68 68 Pulse Rate [Left] Respiratory Rate Blood Pressure 90/58 L 122/55 L 173/78 H Blood Pressure [Right Arm] Blood Pressure Mean 109 Blood Pressure Mean [Right Arm] Blood Pressure Source [Right Arm] Blood Pressure Position [Right Arm] 02 Sat by Pulse Oximetry 97 98 Oxygen Delivery Method 06/27/25 14:30 06/27/25 14:45 Temperature Temperature Source Pulse Rate 71 Pulse Rate [Left] Respiratory Rate Blood Pressure 142/121 H 170/84 H Blood Pressure [Right Arm] Blood Pressure Mean 125 Blood Pressure Mean [Right Arm] Blood Pressure Source [Right Arm] Blood Pressure Position [Right Arm] 02 Sat by Pulse Oximetry 98 Oxygen Delivery Method Lab Data Lab Results 06/27/25 09:42: WBC 10.4, RBC 3.98 L, Hgb 11.5 L, Hct 36.5 L, MCV 91.7, MCH 28.9, MCHC 31.5 L, RDW 12.9, Plt Count 263, MPV 9.5, Neut % (Auto) 58.0, Lymph % (Auto) 25.5, Gilmer % (Auto) 12.0 H, Eos % (Auto) 3.9, Baso % (Auto) 0.3, Neut # (Auto) 6.0, Lymph # (Auto) 2.7, Gilmer # (Auto) 1.3 H, Eos # (Auto) 0.4, Baso # (Auto) 0.0, Sodium 137, Potassium 4.1, Chloride 103, Carbon Dioxide 27, Anion Gap 11.1, BUN 16, Creatinine 0.70, Estimated Creat Clear 31, Estimated GFR 80, Est GFR ( Amer) 96, Glucose 109 H, Calcium 8.6, Total Bilirubin 0.7, AST 37 H, ALT 15, Alkaline Phosphatase 57, Total Creatine Kinase 156 H, Total Protein 6.5, Albumin 3.8, Globulin 2.7, Albumin/Globulin Ratio 1.4 06/27/25 10:55: VBG Lactic Acid 1.5 06/27/25 09:42 06/27/25 09:42 Orders (Tests/Meds): ED MEDICATIONS Generic Name Dose Route Start Last Admin Trade Name Freq PRN Reason Stop Dose Admin Diazepam 5 mg 06/27/25 13:44 06/27/25 13:57 Diazepam 5mg Tablet PO 06/28/25 01:45 5 mg ONCE PRN Administration Anxiety Flumazenil 0.2 mg 06/27/25 13:54 Flumazenil 0.1mg/Ml 5ml Vial IV 06/28/25 01:54 NEEDED PRN Sedation Heparin Sodium (Porcine) 5,000 unit 06/27/25 13:54 Heparin 1,000 Units/Ml 10ml Vial (Manager Instrumentation) IV 06/27/25 17:54 NEEDED PRN Emergency [employer] [place] Hydralazine HCl 20 mg 06/27/25 13:54 Hydralazine 20mg/Ml Vial IV 06/27/25 17:54 ONCE PRN sbp>160 Adenosine 180 mg/ Sodium 90 mls @ 257.186 mls/hr 06/27/25 13:54 Chloride IV 06/27/25 17:54 ONCE PRN fractional flow reserve 180 MCG/KG/MIN Adenosine 90 mg/ Sodium 90 mls @ 514.372 mls/hr 06/27/25 13:54 Chloride IV 06/27/25 17:54 ONCE PRN fractional flow reserve 180 MCG/KG/MIN Sodium Chloride 1,000 mls @ 25 mls/hr 06/27/25 14:00 Sod Chloride 0.9% 500ml Bag IV 06/28/25 13:54 .Q25H BINH Labetalol HCl 20 mg 06/27/25 13:54 Labetalol 20mg/4ml Syringe IV 06/27/25 17:54 ONCE PRN sbp>160 Midazolam HCl 1 mg 06/27/25 13:54 Midazolam 2mg/2ml Vial IV 06/28/25 01:54 Q3MINP PRN Sedation Midazolam HCl 1 mg 06/27/25 13:54 Midazolam Hcl 1mg/Ml 5ml Vial IV 06/28/25 01:54 Q3MINP PRN Sedation Naloxone HCl 0.4 mg 06/27/25 13:54 Naloxone 0.4mg/Ml Vial IV 06/28/25 01:54 Q5MINP PRN Decreased Respirations Nitroglycerin 800 mcg 06/27/25 13:54 Nitroglycerin 800mcg/8ml Syr (Manager Instrumentation) IA 06/27/25 17:54 NEEDED PRN Emergency [employer] Ondansetron HCl 4 mg 06/27/25 13:54 Ondansetron 4mg/2ml Vial IV 06/28/25 01:54 NEEDED PRN Nausea Promethazine HCl 25 mg 06/27/25 13:54 Promethazine Hcl 25mg/Ml 1ml Vial IV 06/28/25 01:54 NEEDED PRN Nausea And Vomiting Protamine Sulfate 50 mg 06/27/25 13:54 Protamine Sulfate 50mg/5ml Vial (Manager Instrumentation) IV 06/27/25 17:54 ONCE PRN act>200 Sodium Chloride 10 ml 06/27/25 13:44 Sodium Chloride 0.9% 10ml Flush Syringe IV 07/27/25 13:43 NEEDED PRN Maintain IV Site Discontinued Medications Generic Name Dose Route Start Last Admin Trade Name Orlandoq PRN Reason Stop Dose Admin Diphenhydramine HCl 50 mg 06/27/25 13:44 06/27/25 13:55 Diphenhydramine 50mg/Ml Vial IV 06/27/25 13:45 Not Given ONCE ONE Heparin Sodium/Sodium Chloride 3,000 unit 06/27/25 13:54 Heparin 1,000 Units/500ml Ns (Manager Instrumentation) IV 06/27/25 13:55 ONCE ONE Iopamidol 100 ml 06/27/25 10:37 06/27/25 10:42 Iopamidol-370 (76%);100ml Bottle IV 06/27/25 10:38 100 ml ONCE ONE Administration Iopamidol 20 ml 06/27/25 10:37 06/27/25 10:42 Iopamidol-370 (76%);100ml Bottle IV 06/27/25 10:38 20 ml ONCE ONE Administration Ketorolac Tromethamine 30 mg 06/27/25 11:45 06/27/25 11:50 Ketorolac 30mg/Ml Vial IV 06/27/25 11:46 30 mg ONCE ONE Administration Lidocaine HCl 10 ml 06/27/25 13:54 Lidocaine 1% 10ml Mdv IJ 06/27/25 13:55 ONCE ONE Lidocaine HCl 10 ml 06/27/25 13:54 Lidocaine 1% 5ml Pf Vial IJ 06/27/25 13:55 ONCE ONE Sodium Chloride 50 ml 06/27/25 10:37 06/27/25 10:42 0.9 % Sodium Chloride 50 Ml Vial IV 06/27/25 10:38 50 ml ONCE ONE Administration Sodium Chloride 10 ml 06/27/25 10:37 06/27/25 10:42 Sodium Chloride 0.9% 10ml Syr (Rad Only) IV 06/27/25 10:38 10 ml ONCE ONE Administration Sodium Chloride 50 ml 06/27/25 10:37 06/27/25 10:42 0.9 % Sodium Chloride 50 Ml Vial IV 06/27/25 10:38 50 ml ONCE ONE Administration Sodium Chloride 25 ml 06/27/25 13:54 Sodium Chloride 0.9% 25ml Bag IV 06/27/25 13:55 ONCE ONE Verapamil HCl 2.5 mg 06/27/25 13:54 Verapamil 2.5mg/Ml 2ml Vial IV 06/27/25 13:55 ONCE ONE ORDERS Category Date Time Status CT angio abdomen/femoral Stat Cat Scan 06/27/25 10:16 Completed Complete Blood Count Auto Diff Stat Lab 06/27/25 09:42 Completed Comprehensive Metabolic Panel Stat Lab 06/27/25 09:42 Completed Creatine Kinase Stat Lab 06/27/25 09:42 Completed Lactate Venous Stat Lab 06/27/25 10:55 Completed Medical Decision Narrative: 85-year-old female presents to the ED today for complaint of left ankle pain and cooler temp and increased pain. She had a heart cath on Tuesday and since then pain has increased. Patient was sent home yesterday but pain has increased since the procedure. Patient called the cardiology office and she was sent to the ED this morning. Patient having increased pain at this time. Dr. Acosta asked to see patient as well. She went in and did a ultrasound and patient has no flow in her left foot and ankle with no pulse. Patient was sent to the CT scan immediately. Patient CT showed complete occluded popliteal artery. I called Dr. Chadwick who said that he would take her to surgery to fix that. Notified patient who was made aware. Patient continues to be stable at this time. Discussed with Dr. Rodríguez who is on-call for Dr. Montanez today. <Cassandra Acosta MD - Last Filed: 06/27/25 15:44> Vital Signs: 06/27/25 09:03 06/27/25 09:10 06/27/25 09:31 Temperature 97.8 F Temperature Source Oral Pulse Rate 68 67 Pulse Rate [Left] 67 Respiratory Rate 17 17 17 Blood Pressure 147/61 H 153/65 H Blood Pressure [Right Arm] 147/61 H Blood Pressure Mean 89 90 Blood Pressure Mean [Right Arm] 89 Blood Pressure Source [Right Arm] Automatic Cuff Blood Pressure Position [Right Arm] Supine 02 Sat by Pulse Oximetry 98 98 97 Oxygen Delivery Method Room Air Room Air Room Air 06/27/25 10:00 06/27/25 10:31 06/27/25 10:48 Temperature Temperature Source Pulse Rate 63 80 Pulse Rate [Left] Respiratory Rate 17 Blood Pressure 123/52 L 153/60 H Blood Pressure [Right Arm] Blood Pressure Mean 90 Blood Pressure Mean [Right Arm] Blood Pressure Source [Right Arm] Blood Pressure Position [Right Arm] 02 Sat by Pulse Oximetry 98 98 96 Oxygen Delivery Method Room Air 06/27/25 11:01 06/27/25 11:30 06/27/25 12:00 Temperature Temperature Source Pulse Rate 71 62 68 Pulse Rate [Left] Respiratory Rate Blood Pressure 159/56 H 143/61 H 127/49 L Blood Pressure [Right Arm] Blood Pressure Mean Blood Pressure Mean [Right Arm] Blood Pressure Source [Right Arm] Blood Pressure Position [Right Arm] 02 Sat by Pulse Oximetry 98 97 97 Oxygen Delivery Method 06/27/25 13:00 06/27/25 13:30 06/27/25 14:00 Temperature Temperature Source Pulse Rate 68 68 Pulse Rate [Left] Respiratory Rate Blood Pressure 90/58 L 122/55 L 173/78 H Blood Pressure [Right Arm] Blood Pressure Mean 109 Blood Pressure Mean [Right Arm] Blood Pressure Source [Right Arm] Blood Pressure Position [Right Arm] 02 Sat by Pulse Oximetry 97 98 Oxygen Delivery Method 06/27/25 14:30 06/27/25 14:45 Temperature Temperature Source Pulse Rate 71 Pulse Rate [Left] Respiratory Rate Blood Pressure 142/121 H 170/84 H Blood Pressure [Right Arm] Blood Pressure Mean 125 Blood Pressure Mean [Right Arm] Blood Pressure Source [Right Arm] Blood Pressure Position [Right Arm] 02 Sat by Pulse Oximetry 98 Oxygen Delivery Method Lab Data Lab Results 06/27/25 09:42: WBC 10.4, RBC 3.98 L, Hgb 11.5 L, Hct 36.5 L, MCV 91.7, MCH 28.9, MCHC 31.5 L, RDW 12.9, Plt Count 263, MPV 9.5, Neut % (Auto) 58.0, Lymph % (Auto) 25.5, Gilmer % (Auto) 12.0 H, Eos % (Auto) 3.9, Baso % (Auto) 0.3, Neut # (Auto) 6.0, Lymph # (Auto) 2.7, Gilmer # (Auto) 1.3 H, Eos # (Auto) 0.4, Baso # (Auto) 0.0, Sodium 137, Potassium 4.1, Chloride 103, Carbon Dioxide 27, Anion Gap 11.1, BUN 16, Creatinine 0.70, Estimated Creat Clear 31, Estimated GFR 80, Est GFR ( Amer) 96, Glucose 109 H, Calcium 8.6, Total Bilirubin 0.7, AST 37 H, ALT 15, Alkaline Phosphatase 57, Total Creatine Kinase 156 H, Total Protein 6.5, Albumin 3.8, Globulin 2.7, Albumin/Globulin Ratio 1.4 06/27/25 10:55: VBG Lactic Acid 1.5 Orders (Tests/Meds): ED MEDICATIONS Generic Name Dose Route Start Last Admin Trade Name Freq PRN Reason Stop Dose Admin Diazepam 5 mg 06/27/25 13:44 06/27/25 13:57 Diazepam 5mg Tablet PO 06/28/25 01:45 5 mg ONCE PRN Administration Anxiety Flumazenil 0.2 mg 06/27/25 13:54 Flumazenil 0.1mg/Ml 5ml Vial IV 06/28/25 01:54 NEEDED PRN Sedation Heparin Sodium (Porcine) 5,000 unit 06/27/25 13:54 Heparin 1,000 Units/Ml 10ml Vial (Manager Instrumentation) IV 06/27/25 17:54 NEEDED PRN Emergency [employer] Hydralazine HCl 20 mg 06/27/25 13:54 Hydralazine 20mg/Ml Vial IV 06/27/25 17:54 ONCE PRN sbp>160 Adenosine 180 mg/ Sodium 90 mls @ 257.186 mls/hr 06/27/25 13:54 Chloride IV 06/27/25 17:54 ONCE PRN fractional flow reserve 180 MCG/KG/MIN Adenosine 90 mg/ Sodium 90 mls @ 514.372 mls/hr 06/27/25 13:54 Chloride IV 06/27/25 17:54 ONCE PRN fractional flow reserve 180 MCG/KG/MIN Sodium Chloride 1,000 mls @ 25 mls/hr 06/27/25 14:00 Sod Chloride 0.9% 500ml Bag IV 06/28/25 13:54 .Q25H BINH Labetalol HCl 20 mg 06/27/25 13:54 Labetalol 20mg/4ml Syringe IV 06/27/25 17:54 ONCE PRN sbp>160 Midazolam HCl 1 mg 06/27/25 13:54 Midazolam 2mg/2ml Vial IV 06/28/25 01:54 Q3MINP PRN Sedation Midazolam HCl 1 mg 06/27/25 13:54 Midazolam Hcl 1mg/Ml 5ml Vial IV 06/28/25 01:54 Q3MINP PRN Sedation Naloxone HCl 0.4 mg 06/27/25 13:54 Naloxone 0.4mg/Ml Vial IV 06/28/25 01:54 Q5MINP PRN Decreased Respirations Nitroglycerin 800 mcg 06/27/25 13:54 Nitroglycerin 800mcg/8ml Syr (Manager Instrumentation) IA 06/27/25 17:54 NEEDED PRN Emergency [employer] Ondansetron HCl 4 mg 06/27/25 13:54 Ondansetron 4mg/2ml Vial IV 06/28/25 01:54 NEEDED PRN Nausea Promethazine HCl 25 mg 06/27/25 13:54 Promethazine Hcl 25mg/Ml 1ml Vial IV 06/28/25 01:54 NEEDED PRN Nausea And Vomiting Protamine Sulfate 50 mg 06/27/25 13:54 Protamine Sulfate 50mg/5ml Vial (Manager Instrumentation) IV 06/27/25 17:54 ONCE PRN act>200 Sodium Chloride 10 ml 06/27/25 13:44 Sodium Chloride 0.9% 10ml Flush Syringe IV 07/27/25 13:43 NEEDED PRN Maintain IV Site Discontinued Medications Generic Name Dose Route Start Last Admin Trade Name Freq PRN Reason Stop Dose Admin Diphenhydramine HCl 50 mg 06/27/25 13:44 06/27/25 13:55 Diphenhydramine 50mg/Ml Vial IV 06/27/25 13:45 Not Given ONCE ONE Heparin Sodium/Sodium Chloride 3,000 unit 06/27/25 13:54 Heparin 1,000 Units/500ml Ns (Manager Instrumentation) IV 06/27/25 13:55 ONCE ONE Iopamidol 100 ml 06/27/25 10:37 06/27/25 10:42 Iopamidol-370 (76%);100ml Bottle IV 06/27/25 10:38 100 ml ONCE ONE Administration Iopamidol 20 ml 06/27/25 10:37 06/27/25 10:42 Iopamidol-370 (76%);100ml Bottle IV 06/27/25 10:38 20 ml ONCE ONE Administration Ketorolac Tromethamine 30 mg 06/27/25 11:45 06/27/25 11:50 Ketorolac 30mg/Ml Vial IV 06/27/25 11:46 30 mg ONCE ONE Administration Lidocaine HCl 10 ml 06/27/25 13:54 Lidocaine 1% 10ml Mdv IJ 06/27/25 13:55 ONCE ONE Lidocaine HCl 10 ml 06/27/25 13:54 Lidocaine 1% 5ml Pf Vial IJ 06/27/25 13:55 ONCE ONE Sodium Chloride 50 ml 06/27/25 10:37 06/27/25 10:42 0.9 % Sodium Chloride 50 Ml Vial IV 06/27/25 10:38 50 ml ONCE ONE Administration Sodium Chloride 10 ml 06/27/25 10:37 06/27/25 10:42 Sodium Chloride 0.9% 10ml Syr (Rad Only) IV 06/27/25 10:38 10 ml ONCE ONE Administration Sodium Chloride 50 ml 06/27/25 10:37 06/27/25 10:42 0.9 % Sodium Chloride 50 Ml Vial IV 06/27/25 10:38 50 ml ONCE ONE Administration Sodium Chloride 25 ml 06/27/25 13:54 Sodium Chloride 0.9% 25ml Bag IV 06/27/25 13:55 ONCE ONE Verapamil HCl 2.5 mg 06/27/25 13:54 Verapamil 2.5mg/Ml 2ml Vial IV 06/27/25 13:55 ONCE ONE ORDERS Category Date Time Status CT angio abdomen/femoral Stat Cat Scan 06/27/25 10:16 Completed Complete Blood Count Auto Diff Stat Lab 06/27/25 09:42 Completed Comprehensive Metabolic Panel Stat Lab 06/27/25 09:42 Completed Creatine Kinase Stat Lab 06/27/25 09:42 Completed Lactate Venous Stat Lab 06/27/25 10:55 Completed Medical Decision Narrative: 85-year-old female presents to the ED today for complaint of left ankle pain and cooler temp and increased pain. She had a heart cath on Tuesday and since then pain has increased. Patient was sent home yesterday but pain has increased since the procedure. Patient called the cardiology office and she was sent to the ED this morning. Patient having increased pain at this time. Dr. Acosta asked to see patient as well. She went in and did a ultrasound and patient has no flow in her left foot and ankle with no pulse. Patient was sent to the CT scan immediately. Patient CT showed complete occluded popliteal artery. I called Dr. Chadwick who said that he would take her to surgery to fix that. Notified patient who was made aware. Patient continues to be stable at this time. Discussed with Dr. Rodríguez who is on-call for Dr. Montanez today. I was consulted by the TIFFANY, and we discussed the complexity of problems being addressed. On exam patient has acute limb ischemia. We had a interactive conversation with Dr. Chadwick who performed patient's last surgery who recommended going to the [facility] today for repair. I approved the treatment and management plan for this patient's care in the emergency department, thus performing a substantial portion of the medical decision making. Cassandra Acosta MD Critical Care <Cassandra Acosta MD - Last Filed: 06/27/25 15:44> Critical Care Time Critical Care Time: Yes Attestation: On 06/27/25, the high probability of a clinically significant, sudden or life threatening deterioration of the following system(s) required my full and direct attention, intervention and personal management. The time I documented below is in addition to time spent performing reported procedures but includes the following listed in this critical care notation. Total Time Total Critical Care Time: 45
[2025-06-27 11:02] LABS: Lactate Venous 1.5 mmol/L (0.4-2.0)
[2025-06-27] MEDS: KETOROLAC 30MG/ML VIAL 30 MG IV (11:50)
--- NOTE | 2025-06-27 13:46 | EXP.CARD.CON ---
History of Present Illness History of Present Illness Consult date: 06/27/25 Requesting physician: Cassandra Acosta Chief complaint: cold L foot and pain in left leg History of present illness: This is an 85-year-old white female who presented to the emergency department with left leg pain and a cold left foot. The patient underwent left lower extremity runoff with angioplasty to the left common femoral artery left popliteal artery on Tuesday of this week. She was kept overnight and discharged home on Tuesday. The patient reports that she had severe pain in her left leg when she got home on Tuesday and was unable to walk independently. She states that the pain persisted and was severe this morning as well. She states that it is a very sharp and throbbing pain in the left lower extremity. She states that her left foot is cold. She does have a wound to the left great toe that she states looks worse today than it did yesterday. She states that her pain is severe and nothing is really helping to improve the pain. She denies any chest pain or pressure. She denies any shortness of breath or edema. She denies any fever, chills, nausea, vomiting or diarrhea. I am unable to palpate any pulses in her left lower extremity. [facility] Disclaimer: The information contained in this section may have been updated after the patient was seen, as this information can be updated by other users. Medical History Ischemic pain of left foot Claudication Hyperlipemia HTN (hypertension) Paroxysmal atrial fibrillation Peripheral arterial disease CAD (coronary artery disease) Pain in right lower leg Intracranial arteriosclerosis Pneumonia UTI (urinary tract infection) Amputated toe of right foot Cellulitis Fracture of cuneiform bone of foot Acquired pes planus of right foot Osteomyelitis of toe of right foot Postoperative wound dehiscence Charcot's joint of right foot Postoperative dehiscence of skin wound Gangrene of toe Gangrene of toe of right foot Cough Ischemic ulcer of toe of right foot, limited to breakdown of skin Ischemic ulcer of toe of right foot Real time reverse transcriptase PCR positive for COVID-19 virus Peripheral vascular disease of lower extremity Pre-ulcerative calluses Pneumonia Peripheral arterial disease Abnormal ankle brachial index (MICHELE) Cardiac pacemaker in situ Acute bronchitis Left bundle branch block (LBBB) on electrocardiogram Tachy-jose francisco syndrome Near syncope Elevated blood pressure reading Anxiety Diabetic foot Keratosis Callus of foot Diabetic ulcer of right fifth toe Dry gangrene Skin ulcer of second toe of left foot with fat layer exposed Ulcer of left great toe due to diabetes mellitus Primary osteoarthritis of both feet Encounter for wound care Overweight (BMI 25.0-29.9) Type 2 diabetes mellitus without complication, without long-term current use of insulin Acquired hammertoes of both feet Osteomyelitis of toe Left foot infection Nail dystrophy Onychogryphosis Lower limb ischemia PAF (paroxysmal atrial fibrillation) PAD (peripheral artery disease) Leg wound, right Leg edema, right COPD (chronic obstructive pulmonary disease) Diabetes mellitus Rapid atrial fibrillation Pulmonary HTN Diastolic dysfunction 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 A-fib Abnormal ECG Fatigue Dyspnea Atrial fibrillation with RVR Asthma with exacerbation Acute exacerbation of chronic obstructive airways disease CHF (congestive heart failure) Asthma Abnormal ankle brachial index (MICHELE) Abnormal electrocardiography Absence of posterior tibial pulse Anxiety Atrial fibrillation with rapid ventricular response Body mass index (BMI) of 25.0 to 29.9 Callus of foot Chronic obstructive pulmonary disease Coronary artery disease Diabetes mellitus Diabetic foot Diastolic dysfunction Dry gangrene Dystrophia unguium Heart murmur Hyperlipidemia Hypertension Infection of left foot Intermittent claudication Ischemia of lower extremity Keratosis Left bundle branch block (LBBB) determined by electrocardiography Leg wound, right 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 Mitral valve insufficiency Onychogryposis Osteomyelitis of toe Osteopenia determined by x-ray Pneumonia Pre-syncope Presence of cardiac pacemaker Primary osteoarthritis of both feet Pulmonary hypertension Rapid atrial fibrillation Skin ulcer of second toe of left foot with fat layer exposed Systemic inflammatory response syndrome (SIRS) Tachycardia-bradycardia Ulcer of left great toe due to diabetes mellitus Acquired hammer toes of both feet Ulcer of right fifth toe due to diabetes mellitus Memory loss Abnormal findings on diagnostic imaging of heart and coronary circulation Chronic HFrEF (heart failure with reduced ejection fraction) Claudication Surgical History S/P amputation of lesser toe History of complete ray amputation of fourth toe of right foot History of complete ray amputation of third toe of right foot Status post foot surgery Status post placement of cardiac pacemaker S/P peripheral artery angioplasty with stent placement History of amputation of toe History of tubal ligation History of nasal surgery S/P peripheral artery angioplasty with stent placement Status post placement of cardiac pacemaker Family History Other Coronary artery disease Diabetes Heart attack Social History (Updated 06/27/25 @ 16:50 by Rani Elmore RN) Smoking Status: Former smoker alcohol intake: never substance use type: denies use current occupational status: retired Travel in the last 8 weeks?: Inside the [place] household members: none housing: house current occupation: Works at [employer] current occupational exposures/hazards: No caffeine: Yes Have you lived/traveled outside [place] in past 30 days?: No Contact w/someone who lives/traveled outside [place] past 30 days?: No Exposure to someone with infectious disease in past 14 days?: No Do you have a fever (greater than 100.4 F or 38 C)?: No Have you tested positive for COVID-19?: No Exposed to someone with COVID-19 in past 14 days?: Yes Do you have a sore throat?: No Do you have a cough?: No Do you have any weakness?: No Do you have any diarrhea?: No Are you experiencing any unusual bleeding?: No Do you have any muscle aches/pain?: No Do you have any abdominal pain?: No Are you experiencing loss of taste or smell?: No Review of Systems Review of Systems Review of systems:: pertinent systems reviewed and negative unless documented below Constitutional Constitutional: Reports system reviewed and no additional complaints, except as documented Eyes Eyes: Reports system reviewed and no additional complaints, except as documented ENT Ears, Nose, Mouth, and Throat: Reports system reviewed and no additional complaints, except as documented *Cardiovascular Cardiovascular: Reports system reviewed and no additional complaints, except as documented *Respiratory Respiratory: Reports system reviewed and no additional complaints, except as documented *Gastrointestinal Gastrointestinal: Reports system reviewed and no additional complaints, except as documented *Genitourinary Genitourinary: Reports system reviewed and no additional complaints, except as documented *Musculoskeletal Musculoskeletal: Reports system reviewed and no additional complaints, except as documented and Reports other (Left leg pain) Integumentary/Breasts Skin/Breast: Reports system reviewed and no additional complaints, except as documented and Reports other (Left foot is cold) *Neurologic Neurologic: Reports system reviewed and no additional complaints, except as documented Psychiatric Psychiatric: Reports system reviewed and no additional complaints, except as documented Endocrine Endocrine: Reports system reviewed and no additional complaints, except as documented Hematologic/Lymphatic Hematologic/Lymphatic: Reports system reviewed and no additional complaints, except as documented Allergic/Immunologic Allergic/Immunologic: Reports system reviewed and no additional complaints, except as documented Exam Data for Last 24 hours Vital signs and Labs for Last 24 Hours: Temp Pulse Resp BP Pulse Ox O2 Del Method 97.8 F 68 17 122/55 L 98 Room Air 06/27/25 09:10 06/27/25 13:30 06/27/25 10:48 06/27/25 13:30 06/27/25 13:30 06/27/25 10:48 Laboratory Results - last 24 hr 06/27/25 09:42: WBC 10.4, RBC 3.98 L, Hgb 11.5 L, Hct 36.5 L, MCV 91.7, MCH 28.9, MCHC 31.5 L, RDW 12.9, Plt Count 263, MPV 9.5, Neut % (Auto) 58.0, Lymph % (Auto) 25.5, [place] % (Auto) 12.0 H, Eos % (Auto) 3.9, Baso % (Auto) 0.3, Neut # (Auto) 6.0, Lymph # (Auto) 2.7, [place] # (Auto) 1.3 H, Eos # (Auto) 0.4, Baso # (Auto) 0.0, Sodium 137, Potassium 4.1, Chloride 103, Carbon Dioxide 27, Anion Gap 11.1, BUN 16, Creatinine 0.70, Estimated Creat Clear 31, Estimated GFR 80, Est GFR ( Amer) 96, Glucose 109 H, Calcium 8.6, Total Bilirubin 0.7, AST 37 H, ALT 15, Alkaline Phosphatase 57, Total Creatine Kinase 156 H, Total Protein 6.5, Albumin 3.8, Globulin 2.7, Albumin/Globulin Ratio 1.4 06/27/25 10:55: VBG Lactic Acid 1.5 I & O for Last 24 hours: Intake & Output 06/24/25 06/25/25 06/26/25 06/27/25 23:59 23:59 23:59 23:59 Weight 105 lb Constitutional Constitutional: no acute distress and average body habitus *Routine HEENT Exam Head: Present normocephalic and atraumatic ENT: Present mucous membranes moist *Routine Neck Exam Neck: Present supple, full ROM and normal carotid upstroke; Absent JVD, carotid bruit or lymphadenopathy *Routine Respiratory Exam Respiratory: Present CTA bilaterally, normal respiratory effort, able to speak in complete sentences and symmetric chest movement *Routine Cardiovascular Exam Cardiovascular: Present RRR, Normal S1 and Normal S2; Absent murmur or gallop *Routine Abdominal Exam Abdominal: Present soft and normoactive bowel sounds; Absent tenderness, distended or organomegaly *Routine Extremities Exam Extremities: Present cyanosis (Left lower extremity), full ROM and normal capillary refill; Absent clubbing, edema or pulses intact (Absent left pedal pulse) *Routine Skin Exam Skin: Present intact and warm; Absent erythema *Routine Neurological Exam Neurological: Present alert, oriented X3 and CN II-XII intact; Absent sensory deficit or motor deficit Routine Psychiatric Exam Psychiatric: Present normal affect Meds Home Medications and Allergies Home Medications ?Medication ?Instructions ?Recorded ?Confirmed ?Type pravastatin 40 mg tablet 40 mg PO HS 03/31/18 06/27/25 History budesonide-formoterol HFA 160 2 puffs inhalation BID 08/16/19 06/27/25 History mcg-4.5 mcg/actuation aerosol inhaler (Symbicort) gabapentin 300 mg capsule 300 mg PO BID 01/05/22 06/27/25 History apixaban 2.5 mg tablet (Eliquis) 2.5 mg PO BID 11/02/24 06/27/25 History carvedilol 6.25 mg tablet (Coreg) 6.25 mg PO BID #180 tabs 11/20/24 06/27/25 Rx valsartan 40 mg tablet 40 mg PO BID #180 tabs 11/20/24 06/27/25 Rx clopidogrel 75 mg tablet 75 mg PO DAILY 01/31/25 06/27/25 History furosemide 20 mg tablet 20 mg PO DAILYP PRN Edema 01/31/25 06/27/25 History digoxin 125 mcg (0.125 mg) tablet 125 mcg PO DAILY #90 tabs 04/30/25 06/27/25 Rx New Prescriptions to Start Prescriptions: Allergies Allergy/AdvReac Type Severity Reaction Status Date / Time codeine (CODEINE) Allergy Unknown Unknown Verified 06/24/25 13:53 allergy reaction morphine Allergy Unknown Unknown Verified 06/24/25 13:53 allergy reaction fentanyl AdvReac Mild behavior Verified 06/24/25 13:53 changes diphenhydramine (From AdvReac Agitated Verified 06/24/25 13:53 Benadryl) doxycycline AdvReac Nausea Verified 06/24/25 13:53 Assessment and Plan *Assessment and plan (1) Ischemic pain of left foot: Status: Acute Category: Medical Code(s): M79.672 - Pain in left foot; I99.8 - Other disorder of circulatory system (2) Peripheral arterial disease: Status: Acute Category: Medical Code(s): I73.9 - Peripheral vascular disease, unspecified (3) Status post peripheral artery angioplasty: Status: Acute Category: Surgical Code(s): Z98.62 - Peripheral vascular angioplasty status (4) CAD (coronary artery disease): Status: Acute Qualifiers: Associated angina: with other forms of angina Coronary Disease-Associated Artery/Lesion type: [place] artery [place] vs. transplanted heart: [place] heart Qualified Code(s): I25.118 - Atherosclerotic heart disease of [place] coronary artery with other forms of angina pectoris Category: Medical Code(s): I25.10 - Atherosclerotic heart disease of [place] coronary artery without angina pectoris (5) Hyperlipemia: Status: Acute Qualifiers: Hyperlipidemia type: mixed hyperlipidemia Qualified Code(s): E78.2 - Mixed hyperlipidemia Category: Medical Code(s): E78.5 - Hyperlipidemia, unspecified (6) HTN (hypertension): Status: Acute Qualifiers: Hypertension type: essential hypertension Qualified Code(s): I10 - Essential (primary) hypertension Category: Medical Code(s): I10 - Essential (primary) hypertension (7) Claudication: Status: Acute Category: Medical Code(s): I73.9 - Peripheral vascular disease, unspecified (8) Paroxysmal atrial fibrillation: Status: Acute Category: Medical Code(s): I48.0 - Paroxysmal atrial fibrillation (9) halfway current use of anticoagulant therapy: Status: Acute Category: Medical Code(s): Z79.01 - 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 The patient presented to the emergency department with pain in her left lower extremity and a cold left foot. She underwent left lower extremity runoff on Tuesday with angioplasty to the left SFA/popliteal arteries. The patient states that when she got home on Tuesday her left foot was painful and the pain has continued to progress. Her foot is now cold. She also reports that her wound on her left foot has worsened. I am unable to palpate any pulses in her left lower extremity. Will plan to proceed with left lower extremity runoff due to her ischemic left foot. 2. The patient has been educated the risk and benefits of proceeding with runoff. The patient verbalized understanding and is agreeable in proceeding with the procedure. 3. The patient will be n.p.o. in preparation for runoff. 4. CAD is present. She denies any chest pain or pressure. No plans for invasive left cardiac catheterization at this time. Continue Plavix. 5. Her blood pressure is well-controlled. Continue carvedilol and valsartan. 6. Her LDL goal is less than 55. She is on a statin. Will get a lipid panel in the morning. 7. The patient does have paroxysmal atrial fibrillation. Continue digoxin, carvedilol and Eliquis following her runoff. 8. Further recommendations will be made pending the patient's response to treatment and the results of her runoff today. Thank you for the opportunity to help participate in the care of this patient. All recommendations and orders are per Dr. Calderon. Addendum: When the patient got to the lab intern, her foot was warm and a pulse could be found by doppler. Runoff canceled. pt can be discharged home.
[2025-06-27] MEDS: diazePAM 5MG TABLET 5 MG PO (13:57)
--- NOTE | 2025-06-27 14:14 | PC.NURSE ---
stranding supervisor contacted for bed.
--- NOTE | 2025-06-27 15:46 | PC.NURSE ---
Patient report called to BRA[facility] Blas
--- NOTE | 2025-06-27 16:42 | SUR.PHASEII ---
WITH DAUGHTER AT BEDSIDE SPEAKING ON POC
--- NOTE | 2025-06-27 16:43 | SUR.PHASEII ---
POSITIVE DOPPLERED PULSES TO LEFT PEDAL, FOOT IS WARM AND PINK.
--- NOTE | 2025-06-27 16:57 | SUR.PHASEII ---
SPOKE TO KIKA ABOUT PT AND POC, DECIDED TO NOT DO PROCEDURE. PT DAUGHTER AT BESIDE AND GRANDDAUGHTER ON PHONE WELL BOTH AGREED WITH POC.
[2025-06-27] MEDS: APIXABAN 5MG TABLET 2.5 MG PO (21:31)
[2025-06-27] MEDS: GABAPENTIN 300MG CAPSULE 300 MG PO (21:31)
[2025-06-28] VITALS: PULSE 60
[2025-06-28 04:00] VITALS: BP 139/69; PULSE 60; PULSE 61; RESP 12; TEMP 36.8; O2SAT 96; BMI 21.9
--- NOTE | 2025-06-28 05:44 | PC.NURSE ---
Pt. is alert and orientated x 4. Pt. is on room air. Pt. had a heart cath on Tuesday. The heart cath was done through the Femoral artery. Pt. was admitted yesterday with possible femoral artery occlusion. Pt. was having left leg/foot pain. upon arrival to the EDpt's foot was pale, cold and had no palpable or doppler pulse. Currently pt's foot is pink, warm, and has a palpable pulse. Pt. has no c/o pain to the left leg or foot. Left Fem. site is bruised. no bleeding at site. Pt. has been sleeping well this shift. Pt's daughter at bedside, Personal items and call lockhart in reach. Bed in low and locked position. safety measures in place.
[2025-06-28 08:00] VITALS: PULSE 62
[2025-06-28 08:16] VITALS: BP 157/67; PULSE 64; RESP 14; TEMP 36.9; O2SAT 97
--- NOTE | 2025-06-28 08:29 | HMH.PHAINT1 ---
Pharmacy Intervention Comments: MEDICATION RECONCILIATION COMPLETED ON PATIENT USING EXTERNAL FILL HISTORY FROM PHARMACY AND DISCHARGE SUMMARY FROM PREVIOUS ADMISSION. -RADHIKA DAVID, CANDED
--- NOTE | 2025-06-28 08:47 | EXP.HPDC ---
General Admission date:: 06/27/25 Discharge date: 06/28/25 *Admission Date: 06/27/25 *Chief complaint: Pain in left leg *History of present illness: Ms. Zamora is an 85 year old female patient of [facility] with an extensive history of peripheral vascular disease. She was seen at [facility] on Tuesday of this week and had a peripheral intevention in the senior cytogenetics laboratory director. She was observed overnight and was discharge home the next day. Yesterday she awoke with increasing pain in thew left leg and was directed to come back to the ER. AN evaluation there was concerning for limb ischemia. Patient was taken back to the senior cytogenetics laboratory director and evaluation there was not concerning for ischemia. [facility] Disclaimer: The information contained in this section may have been updated after the patient was seen, as this information can be updated by other users. Medical History Ischemic pain of left foot Claudication Hyperlipemia HTN (hypertension) Paroxysmal atrial fibrillation Peripheral arterial disease CAD (coronary artery disease) Pain in right lower leg Intracranial arteriosclerosis Pneumonia UTI (urinary tract infection) Amputated toe of right foot Cellulitis Fracture of cuneiform bone of foot Acquired pes planus of right foot Osteomyelitis of toe of right foot Postoperative wound dehiscence Charcot's joint of right foot Postoperative dehiscence of skin wound Gangrene of toe Gangrene of toe of right foot Cough Ischemic ulcer of toe of right foot, limited to breakdown of skin Ischemic ulcer of toe of right foot Real time reverse transcriptase PCR positive for COVID-19 virus Peripheral vascular disease of lower extremity Pre-ulcerative calluses Pneumonia Peripheral arterial disease Abnormal ankle brachial index (MICHELE) Cardiac pacemaker in situ Acute bronchitis Left bundle branch block (LBBB) on electrocardiogram Tachy-jose francisco syndrome Near syncope Elevated blood pressure reading Anxiety Diabetic foot Keratosis Callus of foot Diabetic ulcer of right fifth toe Dry gangrene Skin ulcer of second toe of left foot with fat layer exposed Ulcer of left great toe due to diabetes mellitus Primary osteoarthritis of both feet Encounter for wound care Overweight (BMI 25.0-29.9) Type 2 diabetes mellitus without complication, without long-term current use of insulin Acquired hammertoes of both feet Osteomyelitis of toe Left foot infection Nail dystrophy Onychogryphosis Lower limb ischemia PAF (paroxysmal atrial fibrillation) PAD (peripheral artery disease) Leg wound, right Leg edema, right COPD (chronic obstructive pulmonary disease) Diabetes mellitus Rapid atrial fibrillation Pulmonary HTN Diastolic dysfunction Mitral regurgitation 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 A-fib Abnormal ECG Fatigue Dyspnea Atrial fibrillation with RVR Asthma with exacerbation Acute exacerbation of chronic obstructive airways disease CHF (congestive heart failure) Asthma Abnormal ankle brachial index (MICHELE) Abnormal electrocardiography Absence of posterior tibial pulse Anxiety Atrial fibrillation with rapid ventricular response Body mass index (BMI) of 25.0 to 29.9 Callus of foot Chronic obstructive pulmonary disease Coronary artery disease Diabetes mellitus Diabetic foot Diastolic dysfunction Dry gangrene Dystrophia unguium Heart murmur Hyperlipidemia Hypertension Infection of left foot Intermittent claudication Ischemia of lower extremity Keratosis Left bundle branch block (LBBB) determined by electrocardiography Leg wound, right 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 Mitral valve insufficiency Onychogryposis Osteomyelitis of toe Osteopenia determined by x-ray Pneumonia Pre-syncope Presence of cardiac pacemaker Primary osteoarthritis of both feet Pulmonary hypertension Rapid atrial fibrillation Skin ulcer of second toe of left foot with fat layer exposed Systemic inflammatory response syndrome (SIRS) Tachycardia-bradycardia Ulcer of left great toe due to diabetes mellitus Acquired hammer toes of both feet Ulcer of right fifth toe due to diabetes mellitus Memory loss Abnormal findings on diagnostic imaging of heart and coronary circulation Chronic HFrEF (heart failure with reduced ejection fraction) Claudication Surgical History S/P amputation of lesser toe History of complete ray amputation of fourth toe of right foot History of complete ray amputation of third toe of right foot Status post foot surgery Status post placement of cardiac pacemaker S/P peripheral artery angioplasty with stent placement History of amputation of toe History of tubal ligation History of nasal surgery S/P peripheral artery angioplasty with stent placement Status post placement of cardiac pacemaker Family History Diabetes Coronary artery disease Heart attack Social History Smoking Status: Former smoker alcohol intake: never substance use type: denies use current occupational status: retired Travel in the last 8 weeks?: Inside the [place] household members: none housing: house current occupation: Works at [employer] current occupational exposures/hazards: No caffeine: Yes Have you lived/traveled outside [place] in past 30 days?: No Contact w/someone who lives/traveled outside US past 30 days?: No Exposure to someone with infectious disease in past 14 days?: No Do you have a fever (greater than 100.4 F or 38 C)?: No Have you tested positive for COVID-19?: No Exposed to someone with COVID-19 in past 14 days?: Yes Do you have a sore throat?: No Do you have a cough?: No Do you have any weakness?: No Do you have any diarrhea?: No Are you experiencing any unusual bleeding?: No Do you have any muscle aches/pain?: No Do you have any abdominal pain?: No Are you experiencing loss of taste or smell?: No Other Medical History Have you received the Flu Vaccine for this season: No Have you received the Pneumonia Vaccine: No Review of Systems Constitutional Constitutional: Denies chills and Denies fever(s) ENT Ears, Nose, Mouth, and Throat: Denies dizziness *Cardiovascular Cardiovascular: Denies chest pain and Denies dyspnea *Respiratory Respiratory: Denies dyspnea *Gastrointestinal Gastrointestinal: Denies abdominal pain *Genitourinary Genitourinary: Denies difficulty voiding *Musculoskeletal Musculoskeletal: Denies back pain *Neurologic Neurologic: Denies dizziness Exam Data for Last 24 hours Vital signs and Labs for Last 24 Hours: Temp Pulse Resp BP Pulse Ox O2 Del Method 98.4 F 64 14 157/67 H 97 Room Air 06/28/25 08:16 06/28/25 08:16 06/28/25 08:16 06/28/25 08:16 06/28/25 08:16 06/28/25 08:16 Laboratory Results - last 24 hr 06/27/25 09:42: WBC 10.4, RBC 3.98 L, Hgb 11.5 L, Hct 36.5 L, MCV 91.7, MCH 28.9, MCHC 31.5 L, RDW 12.9, Plt Count 263, MPV 9.5, Neut % (Auto) 58.0, Lymph % (Auto) 25.5, [place] % (Auto) 12.0 H, Eos % (Auto) 3.9, Baso % (Auto) 0.3, Neut # (Auto) 6.0, Lymph # (Auto) 2.7, [place] # (Auto) 1.3 H, Eos # (Auto) 0.4, Baso # (Auto) 0.0, Sodium 137, Potassium 4.1, Chloride 103, Carbon Dioxide 27, Anion Gap 11.1, BUN 16, Creatinine 0.70, Estimated Creat Clear 31, Estimated GFR 80, Est GFR ( Amer) 96, Glucose 109 H, Calcium 8.6, Total Bilirubin 0.7, AST 37 H, ALT 15, Alkaline Phosphatase 57, Total Creatine Kinase 156 H, Total Protein 6.5, Albumin 3.8, Globulin 2.7, Albumin/Globulin Ratio 1.4 06/27/25 10:55: VBG Lactic Acid 1.5 I & O for Last 24 hours: Intake & Output 06/25/25 06/26/25 06/27/25 06/28/25 23:59 23:59 23:59 23:59 Intake Total 240 / 240 Output Total 0 / 0 0 / 0 Balance 0 / 240 240 / 240 Weight 106 lb 3 oz 109 lb Constitutional Constitutional: no acute distress *Routine HEENT Exam Head: Present normocephalic Eye: Present EOMI and PERRL ENT: Present mucous membranes moist *Routine Neck Exam Neck: Present supple; Absent lymphadenopathy *Routine Respiratory Exam Respiratory: Present CTA bilaterally *Routine Cardiovascular Exam Cardiovascular: Present RRR *Routine Abdominal Exam Abdominal: Present soft and normoactive bowel sounds; Absent tenderness *Routine Rectal Exam Rectal:: deferred *Routine Genitalia Exam Genitalia:: deferred *Routine Extremities Exam Extremities: Absent cyanosis, clubbing or edema *Routine Skin Exam Skin: Present warm; Absent rash *Routine Neurological Exam Neurological: Present alert and oriented X3 Meds Home Medications and Allergies Home Medications ?Medication ?Instructions ?Recorded ?Confirmed ?Type pravastatin 40 mg tablet 40 mg PO HS 03/31/18 06/27/25 History budesonide-formoterol HFA 160 2 puffs inhalation BID 08/16/19 06/27/25 History mcg-4.5 mcg/actuation aerosol inhaler (Symbicort) gabapentin 300 mg capsule 300 mg PO BID 01/05/22 06/27/25 History apixaban 2.5 mg tablet (Eliquis) 2.5 mg PO BID 11/02/24 06/27/25 History carvedilol 6.25 mg tablet (Coreg) 6.25 mg PO BID #180 tabs 11/20/24 06/27/25 Rx valsartan 40 mg tablet 40 mg PO BID #180 tabs 11/20/24 06/27/25 Rx clopidogrel 75 mg tablet 75 mg PO DAILY 01/31/25 06/27/25 History furosemide 20 mg tablet 20 mg PO DAILYP PRN Edema 01/31/25 06/27/25 History digoxin 125 mcg (0.125 mg) tablet 125 mcg PO DAILY #90 tabs 04/30/25 06/27/25 Rx New Prescriptions to Start Prescriptions: Allergies Allergy/AdvReac Type Severity Reaction Status Date / Time codeine (CODEINE) Allergy Unknown Unknown Verified 06/24/25 13:53 allergy reaction morphine Allergy Unknown Unknown Verified 06/24/25 13:53 allergy reaction fentanyl AdvReac Mild behavior Verified 06/24/25 13:53 changes diphenhydramine (From AdvReac Agitated Verified 06/24/25 13:53 Benadryl) doxycycline AdvReac Nausea Verified 06/24/25 13:53 Hospital Course Hospital Course Hospital Course: Patient was admitted for observation after she was seen in the senior cytogenetics laboratory director by Dr. Chadwick. No procedure was done. She rested well overnight and reports no pain this morning. Pulse is palpable in the left foot and the foot is warm. She has been up ambulating in her room this morning. SHe is anxious to go home. Results Data Completed and Pending Labs on day of discharge: Labs from last 24 hours 06/27/25 06/27/25 10:55 09:42 WBC 10.4 RBC 3.98 L Hgb 11.5 L Hct 36.5 L MCV 91.7 MCH 28.9 MCHC 31.5 L RDW 12.9 Plt Count 263 MPV 9.5 Neut % (Auto) 58.0 Lymph % (Auto) 25.5 [place] % (Auto) 12.0 H Eos % (Auto) 3.9 Baso % (Auto) 0.3 Neut # (Auto) 6.0 Lymph # (Auto) 2.7 [place] # (Auto) 1.3 H Eos # (Auto) 0.4 Baso # (Auto) 0.0 VBG Lactic Acid 1.5 Sodium 137 Potassium 4.1 Chloride 103 Carbon Dioxide 27 Anion Gap 11.1 BUN 16 Creatinine 0.70 Estimated Creat Clear 31 Estimated GFR 80 Est GFR ( Amer) 96 Glucose 109 H Calcium 8.6 Total Bilirubin 0.7 AST 37 H ALT 15 Alkaline Phosphatase 57 Total Creatine Kinase 156 H Total Protein 6.5 Albumin 3.8 Globulin 2.7 Albumin/Globulin Ratio 1.4 DS: Diagnosis Discharge Diagnosis (1) Ischemic pain of left foot: Status: Acute Code(s): M79.672 - Pain in left foot; I99.8 - Other disorder of circulatory system (2) Peripheral arterial disease: Status: Acute Code(s): I73.9 - Peripheral vascular disease, unspecified (3) Status post peripheral artery angioplasty: Status: Acute Code(s): Z98.62 - Peripheral vascular angioplasty status (4) CAD (coronary artery disease): Status: Acute Code(s): I25.10 - Atherosclerotic heart disease of red devil coronary artery without angina pectoris Qualifiers: Coronary Disease-Associated Artery/Lesion type: red devil artery [place] vs. transplanted heart: red devil heart Associated angina: with other forms of angina Qualified Code(s): I25.118 - Atherosclerotic heart disease of red devil coronary artery with other forms of angina pectoris (5) Hyperlipemia: Status: Acute Code(s): E78.5 - Hyperlipidemia, unspecified Qualifiers: Hyperlipidemia type: mixed hyperlipidemia Qualified Code(s): E78.2 - Mixed hyperlipidemia (6) HTN (hypertension): Status: Acute Code(s): I10 - Essential (primary) hypertension Qualifiers: Hypertension type: essential hypertension Qualified Code(s): I10 - Essential (primary) hypertension (7) Claudication: Status: Acute Code(s): I73.9 - Peripheral vascular disease, unspecified (8) Paroxysmal atrial fibrillation: Status: Acute Code(s): I48.0 - Paroxysmal atrial fibrillation (9) USP current use of anticoagulant therapy: Status: Acute Code(s): Z79.01 - USP (current) use of anticoagulants Discharge Plan Disposition Patient Disposition: Home, Self-Care Condition: Fair Follow up Plan Follow up with: Alexis Montanez MD [Primary Care Provider, Medical] - 07/12/25 10:30 am Prescriptions/Medication Reconciliation: Continued gabapentin 300 mg capsule 300 mg PO BID carvedilol [Coreg] 6.25 mg tablet 6.25 mg PO BID Qty: 180 3RF Rx Instructions: must administer with a meal/food valsartan 40 mg tablet 40 mg PO BID Qty: 180 3RF digoxin 125 mcg (0.125 mg) tablet 125 mcg PO DAILY Qty: 90 1RF pravastatin 40 MG tablet 40 mg PO HS budesonide-formoterol [Symbicort] 10.2 GM HFA aerosol inhaler 2 puffs inhalation BID Eliquis 2.5 mg tablet 2.5 mg PO BID Patient Comments: TAKE 1 TABLET BY MOUTH TWICE DAILY FOR BLOOD THINNER clopidogrel 75 mg tablet 75 mg PO DAILY furosemide 20 mg tablet 20 mg PO DAILYP PRN (Reason: Edema) Problem Reconciliation Problems Reviewed?: Yes Patient Discharge Instructions ACTIVITY: Limited activity DIET: continue same diet Patient Instructions: DI for Peripheral Vascular (Arterial) Disease, DI for High Blood Pressure, Stop Light Heart Failure Print Language: [place] Providers Primary Care Provider: Alexis Montanez Admit Provider: Kam Gordon Attending Provider: Alexis Montanez
--- NOTE | 2025-06-28 09:39 | HMH.PTEV ---
Physical Therapy Evaluation Rehab PT IP Evaluation Start: 06/27/25 18:08 Freq: ONCE Status: Active Protocol: Document 06/28/25 09:07 JAH (Rec: 06/28/25 09:39 JAH [id number]) Subjective/History History History Per H&P: Ms. Zamora is an 85 year old female patient of [facility] with an extensive history of peripheral vascular disease. She was seen at [facility] on Tuesday of this week and had a peripheral intevention in the odd job laborer. She was observed overnight and was discharge home the next day. Yesterday she awoke with increasing pain in thew left leg and was directed to come back to the ER. AN evaluation there was concerning for limb ischemia. Patient was taken back to the odd job laborer and evaluation there was not concerning for ischemia. Subjective Subjective Pt reports she lives in a trailer with her son. There are 4 SADE home with HR. Pt reports being IND with all functional mobility without AD use. Pt owns a RW. New diagnosis of No cancer in past 12 months? [facility] How much help from another person do you currently need... Turning from your None back to your side while in a flat bed without using bedrails? Moving from lying on None back to sitting on the side of a flat bed without using bedrails? Moving to and from a None bed to a chair ( including a wheelchair)? Standing up from a None chair using your arms? (e.g., wheelchair, bedside chair) Walking in hospital None room? Climbing 3-5 steps A little with a railing? Mobility Score 23 Mobility Level [facility] Mobility Walk 25 feet or more Mobility Calculator Rehab PT IP Eval Objective Appearance Patient Behavior Appropriate,Cooperative Patient Orientation Person,Situation Difficulty following none instructions Speech Pattern Clear Ambulation Patient Able to Yes Ambulate Ambulation Observation IP General Gait No Deviations/Normal Pattern Observation Ambulation Distance 40 (feet) Ambulation Assistive Rolling Walker Device Ambulation Ability Independent Balance Ability to Arise Able, uses arms to help Sitting Balance Steady, safe Standing Balance Steady, wide stance Dynamic Sitting Normal Balance Ability Dynamic Standing Fair Balance Ability Transfers Bed Transfer Ability Independent Sit to Stand Bed Independent Transfer Ability Rehab PT IP prob,goals,plan Problems Date of Evaluation: 06/28/25 Rehab Potential Rehab Potential Innapropriate for Skilled Therapy Discharge Plan PT Discharge Plan Pt most appropriate to d/c home when deemed medically necessary d/t current level of mobility, home set-up, and family support. Pt not appropriate for skilled acute care PT at this time d/t pt?s mobility being IND. PT educated pt on use of RW for safety and pain management upon d/c. Eval Complexity Eval Charge Codes 52286 - Moderate Complexity PHYSICIAN CERTIFICATION: I certify the specified therapy services for Hattie Bridgette Zamora are required, authorized, and reviewed every 30 days.
--- NOTE | 2025-06-28 10:27 | SW/DCPLANNER ---
Patient was in the ER on 06/27/25 and was admitted to the hospital. I will do a follow up phone call on her discharge when patient is discharged from the hospital. Moe Rodriguez
== END 2025-06-28 10:12 | disposition home or self-care (01) ==
LOC: ER 09:27 → 2ND 15:40
PROVIDERS: Admitting Provider Internal Medicine Adolescent Medicine; Emergency Provider Student in an Organized Health Care Education/Training Program; PCP Family Medicine; Visit Provider Family Medicine
DX: I99.8 Other disorder of circulatory system (principal); M79.672 Pain in left foot; I73.9 Peripheral vascular disease, unspecified; I25.118 Atherosclerotic heart disease of native coronary artery with other forms of angina pectoris; E78.2 Mixed hyperlipidemia; I27.20 Pulmonary hypertension, unspecified; I11.0 Hypertensive heart disease with heart failure; I44.7 Left bundle-branch block, unspecified; I50.22 Chronic systolic (congestive) heart failure; J44.1 Chronic obstructive pulmonary disease with (acute) exacerbation; I48.0 Paroxysmal atrial fibrillation; I74.3 Embolism and thrombosis of arteries of the lower extremities; Z98.62 Peripheral vascular angioplasty status; Z89.431 Acquired absence of right foot; Z95.0 Presence of cardiac pacemaker; Z87.891 Personal history of nicotine dependence; Z88.1 Allergy status to other antibiotic agents; Z88.5 Allergy status to narcotic agent; Z79.01 Long term (current) use of anticoagulants; Z79.02 Long term (current) use of antithrombotics/antiplatelets; Z79.899 Other long term (current) drug therapy
CPT/HCPCS: 75635; 80053; 82550; 83605; 85025; 96374; 97162; 99284; G0378; J1885; J2250; Q9967

== ENCOUNTER 2025-06-28 23:56 | Emergency (ER) | payer MEDICARE, SELFPAY ==
--- OUTSIDE RECORDS SUMMARY | 2024-12-20 06:00 | XMS_ITS ---
Author Organization [facility] Address [address] [facility] [address] [place] [id number] Care Team Providers Care Bearing Inspector Name Role Phone Buck Valencia Primary Care Provider [phone] Alexis Montanez Unavailable [phone] Allergies Allergen (clinical drug ingredient) Drug/Non Drug [...] 54 Performing Lab: Notes/Report: Test performed by [employer] [address] , [place] [address] Mehdi Rodríguez MD, Marketing Support Manager CLIA: [id number] Sodium 141 135-145 mmol/L Potassium 4.7 3.5-5.3 mmol/L Chloride 100 97-108 mmol/L CO2 31 22-32 mmol/L Glucose 146 65-99 mg/dL BUN 27 8-23 mg/dL Creatinine 1.03 0.50-1.00 mg/dL Calcium 9.5 8.6-10.4 mg/dL eGFR by Creatinine 54 >59 mL/min/1.73m2 P-TSH reflex to FT4 Reviewed date:12/21/2024 09:12:59 AM Interpretation:Normal Performing Lab: Notes/Report: Test performed by [employer] [address] , [address], [place] [address] Mehdi Rodríguez MD, Marketing Support Manager CLIA: [id number] TSH reflex to FT4 2.13 0.43-5.25 mU/L P-Microalbumin/Creatinine, R andom Urine Sample Reviewed date:12/24/2024 10:56:33 AM Interpretation: Normal Performing Lab: Notes/Report: Test performed by [employer] [address] , [place] [address] Mehdi Rodríguez MD, Marketing Support Manager CLIA: [id number] Albumin/Creatinine Ratio, Urine 24 0-30 ug/m g Microalbumin, Urine, Random 1.0 Creatinine, Urine 41.8 P-Vitamin D 25-Hydroxy Reviewed date:12/21/2024 09:12:59 AM Interpretation:Normal Performing Lab: Notes/Report: Test performed by [employer] [address] , [place] [address] Mehdi Rodríguez MD, Marketing Support Manager CLIA: [id number] Vitamin D 25-Hydroxy 55.0 30.0-100.0 ng/mL Interpretation [...] 12/20/2024 Encounters Encounter Location Date Provider Diagnosis [facility] [address] [facility] [address] [place] [id number] 12/20/2024 Alexis Montanez Type 2 diabetes mellitus without complication, unspecified whether senior living insulin use E11.9 ; Stage 3a chronic kidney disease (CKD) N18.31 ; Acute cough R05.1 and Vitamin D deficiency E55.9 Assessments Encounter Date Diagnosis (ICD Code) Assessment Notes Treatment Notes Treatment Clinical Notes Section Notes 12/20/2024 Type 2 diabetes mellitus without complication, unspecified whether senior living insulin use (ICD-10 - E11.9) 12/20/2024 Stage [...] Provider Name:Alexis hickey, 07/03/2025 10:30:00 AM, [address], [address], [place], [id number], Provider Name:Alexis hickey, 07/12/2025 10:30:00 AM, [address] [facility], [address], [place], [id number], Provider Name:Alexis hickey, 09/02/2025 11:45:00 AM, [address], [address], [place], [id number], Progress Notes * LASHAWN ZAMORA ADOB: [birth year] (85 yo F)Acc No.[id number]:12/20/2024 Progress Notes Patient: Barrie LASHAWN ELIZABETH Provider: Jazmín Montanez M.D. :1940 A ge:84 Y S ex:Female Date:12/20/2024 Address:[address] [place] [address] [address] [place], [id number] Pcp:Buck Valencia Subjective: * Chief Complaints: * [...] Hypertension, Hypercholestrolemia, Asthma, COPD, CHF, Abnormal Echo 2017, Coronary Artery Disease, Atrial Fibrillation, Cardiac Murmur, Peripheral Vascular Disease. * Surgical History: T ubal Ligation , Deviated Septum Repair , 3 Stents, LT Upper Thigh 10/29/2013, 1 Stent, RT Upper Thigh 11/22/2013, 3 Stents, LT thigh - 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 Chadwick . * Hospitalization/Major Diagno stic Procedure: V omiting- [facility] ER 12/2012, [facility] 10/29-, [facility] 11/20-04/2014, Chest Pain- [facility] 10/28/2016, COPD, Asthma- [facility] ER 12/2017, COPD, Asthma- [facility] 04/2018, Stent Placement - [facility] 05/2018, stent placement- [facility] 03/20/19, Stent Placement (L) foot- [facility] 08/16-08/18/2019, PAD- [facility] 08/21-09/2020, Vascular Procedure-Leg Discomfort After Surgery- [facility] 03/13/2021. * Family History: F ather: , coronary artery disease- [place]. 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 [...] G 2211 Complex e/[place], [address] [place], [address] GLUCOSE TEST, 31619 GLYCATED HEMOGLOBIN TEST, Modifiers: QW , 58308 CBC WITH AUTO DIFF, 08386 Urinalysis, no micro, 3044F HG A1C LEVEL LT 7.0%, G8752 MOST RECENT SYSTOLIC BP < 140MM HG, G8754 MOST RECENT DIASTOLIC BP < 90MM HG * Follow Up: 3 Months * Images: Billing Information: * Visit Code: 55149 Office Visit, Est Pt., Level 4. * Procedure Codes: G2211 Complex e/[place] [address] [place]. [address] GLUCOSE TEST. 85471 GLYCATED HEMOGLOBIN TEST. Modifiers: QW 09543 CBC WITH AUTO DIFF. 81977 Urinalysis, no micro. 3044F HG A1C LEVEL LT 7.0%. G8752 MOST RECENT SYSTOLIC BP < 140MM HG. G8754 MOST RECENT DIASTOLIC BP < 90MM HG. * Electronic signature of Carmita Montanez MD on 06/29/2025 at 12:07 AM EDT Sign off status: Pending * Provider: Jazmín Montanez M.D. Date: 0 12/20/2024 Generated for Oh little/Nena/Andrzej on: 0 06/29/2025 12:07 AM EDT History and Physical Notes * [...]
--- OUTSIDE RECORDS SUMMARY | 2024-12-21 12:15 | XMS_ITS ---
Author Organization [facility] Address [address] [facility] 36 [facility] [address] [place] [id number] Care Team Providers Care Automatic Bandsaw Tender Name Role Phone Buck Valencia Primary Care Provider Alexis Montanez Unavailable [phone] Results Component Value Reference Range Notes Urinalysis - Inhouse Reviewed date:12/24/2024 10:56:33 AM Interpretation: Normal Performing Lab: Notes/Report: Normal Color/Clarity yellow/clear Leuk 1+ Nitrite Neg Urobili 3.2 Protein Neg pH 5.5 Blood Neg Sp. Gr. 1.010 Ketone Neg Bili Neg Gluc Neg P-Culture, Urine Reviewed date:12/24/2024 10:55:44 AM Interpretation:No growth Performing Lab: Notes/Report: Test performed by [employer] [address] [place] [address] , [address], [place] [address] Mehdi Rodríguez MD, Label Paster CLIA: [id number] Specimen Source Urine - Void Culture, Urine [...] Active Encounters Encounter Location Date Provider Diagnosis [facility] [address] [place], [place] [id number] 12/21/2024 [place] Pyuria R82.81 Assessments Encounter Date Diagnosis (ICD Code) Assessment Notes Treatment Notes Treatment Clinical Notes Section Notes 12/21/2024 Pyuria (ICD-10 - R82.81) Plan Of Treatment Next Appt Details Provider Name:Alexis hickey, 07/03/2025 10:30:00 AM, [address], [address], [place], [place], [id number], Provider Name:Alexis hickey, 07/12/2025 10:30:00 AM, [address], [address], [place], [place], [id number], Provider Name:Alexis hickey, 09/02/2025 11:45:00 AM, [address], [address], [place], [id number], Progress Notes * LASHAWN ZAMORA ADOB: [birth year] (85 yo F)Acc No.[id number]:12/21/2024 Patient: LASHAWN ALAN Provider: Jazmín Montanez M.D. :1940 A ge:84 Y S ex:Female Date:12/21/2024 Address:[address] [place] [address] , [place], [id number] Pcp:Buck Valencia Subjective: * Chief Complaints: * [...] pecimen Source Urine - Void - * RochelleEdilia 12/24/2024 10:55 :38 AM > See phone [...] * Laura Lopez 12/21/2024 3:52:06 PM > RochelleEdilia 12/24/2024 10:56:24 AM >See phone encounter * Procedure Codes: 8 1002 Urinalysis, no micro * Images: Billing Information: * Visit Code: * Procedure Codes: 56535 Urinalysis, no micro. * Electronic signature of Carmita Montanez MD on 06/29/2025 at 12:08 AM EDT Sign off status: Pending * Provider: Jazmín Montanez M.D. Date: 0 12/21/2024 Generated for Oh little/Nena/eTmarjansmitting on: 0 06/29/2025 12:08 AM EDT
--- OUTSIDE RECORDS SUMMARY | 2025-02-15 06:00 | XMS_ITS ---
Author Organization [facility] Address [address] [facility] [address] [facility] [address] [place] [phone] Care Team Providers Care Layout Man Name Role Phone Buck Valencia Primary Care Provider Alexis Montanez Unavailable [phone] Allergies Allergen (clinical drug ingredient) Drug/Non Drug Allergy documented on EMR Reaction Allergy Type Onset Date Status acetaminophen / hydrocodone HYDROcodone-Acetamino phen vomiting Drug Allergy Active codeine Codeine rash Drug Allergy Active morphine Morphine Unknown Drug Allergy Active Penicillin Unknown Drug Allergy Active REASON FOR VISIT [facility] D/C fu Medications Medication SIG (Take, Route, [...] y once a day Active Vital Signs Blood pressure systolic 110 mm Hg 02/16/20 25 Blood pressure diastolic 68 mm Hg 025 Heart Rate 64 /min 02/15/2025 Height 58 in 02/15/2025 Weight 105 lbs 02/15/2025 BMI 21.94 kg/m2 02/15/2025 Encounters Encounter Location Date Provider Diagnosis [facility] [address] [facility] 36 [facility] [address] [place] [phone] 02/15/2025 Alexis Montanez Peripheral vascular disease I73.9 [...] as scheduled,and prn, Reason: Provider Name:Alexis hickey, 07/03/2025 10:30:00 AM, [address] [facility] 36 [facility], [address], [place], [phone], Provider Name:Alexis hickey, 07/12/2025 10:30:00 AM, [address] [facility] 36 [facility], [address], [place], [phone], Provider Name:Alexis Jordanseth ry, 09/02/2025 11:45:00 AM, [address], [address], [place], [place], [phone], Progress Notes * LASHAWN ZAMORA ADOB: [birth year] (85 yo F)Acc No.[id number]:02/15/2025 Progress Notes Patient: LASHAWN ALAN A Provider: Jazmín Montanez M.D. :1940 A ge:84 Y S ex:Female Date:02/15/2025 Address:[address] [place] [address], [place], [id number] Pcp:Buck Valencia Subjective: * Chief Complaints: * 1 . [facility] D/C fu. * HPI: H PI: Patient [...] Stent placed in right popliteal artery at [facility] 01/2025. * Hospitalization/Major Diagno stic Procedure: V omiting- [facility] ER 12/2012, [facility] 10/29-, [place] 11/20-04/2014, Chest Pain- [facility] ER 10/28/2016, COPD, Asthma- [facility] ER 12/2017, COPD, Asthma- [facility] 04/2018, Stent Placement - [facility]/BK 05/2018, stent placement- [facility] 03/20/19, Stent Placement (L) foot- [facility] 08/16-08/18/2019, PAD- [facility] 08/21-09/2020, Vascular Procedure-Leg Discomfort After Surgery- [facility] 03/13/2021. * Family History: F ather: , coronary artery disease- [place]. M other: , coronary artery disease, diabetes, [...] disease - I73.9 (Primary) 2 . B [place] 21.0-21.9, adult - Z68.21 Plan: * Treatment: 2. O thers Notes: Discharge summary with available lab/diagnostic imaging results obtained and reviewed. Discharge medication list reconciled. Appropriate counseling provided. Moderate Complexity * Procedure Codes: 9 9495 TRANS [facility]ARE [facility] 14 DAY DISCH, 1111F [facility] MED/CURENT MED MERGE, G2211 Complex e/m visit add on, G8752 MOST RECENT SYSTOLIC BP < 140MM HG, G8754 MOST RECENT DIASTOLIC BP < 90MM HG * Follow Up: a s scheduled,and prn * Images: Billing Information: * Visit Code: 98878 Office Visit, Est Pt., Level 3. * Procedure Codes: 54652 [facility]ARE [facility] 14 DAY DISCH. 1111F DSC MED/CURENT MED MERGE. G2211 Complex e/m visit add on. G8752 MOST RECENT SYSTOLIC BP < 140MM HG. G8754 MOST RECENT DIASTOLIC BP < 90MM HG. * Electronic signature of Carmita Montanez MD on 06/29/2025 at 12:08 AM EDT Sign off status: Pending * Provider: Jazmín Montanez M.D. Date: 0 02/15/2025 Generated for Oh little/Nena/Neenaitting on: 0 06/29/2025 12:08 AM EDT History and Physical Notes * HPI (History of Present Illness) Category Sub-Category Detail Notes Category Not es HPI Patient is here today for a [facility] of Care Visit after having [...]
--- OUTSIDE RECORDS SUMMARY | 2025-03-22 07:15 | XMS_ITS ---
Author Organization [facility] Address [address] [place] [phone] Care Team Providers Care Wrapper Stemmer Operator Name Role Phone Buck Valencia Primary Care Provider Alexis Montanez [phone] Allergies Allergen (clinical drug ingredient) Drug/Non Drug Allergy documented on EMR Reaction Allergy Type Onset Date Status acetaminophen / hydrocodone HYDROcodone-Acetamino phen vomiting Drug Allergy Active codeine Codeine rash Drug Allergy Active morphine Morphine Unknown Drug Allergy Active Penicillin Unknown Drug Allergy Active REASON FOR VISIT 3 months check up Encounters Encounter Location Date Provider Diagnosis [facility] [address] [place] [phone] 03/22/2025 Alexis Montanez Plan Of Treatment Next Appt Details Provider Name:Alexis hickey, 07/03/2025 10:30:00 AM, [address], [address], [place], [phone], Provider Name:Alexis hickey, 07/12/2025 10:30:00 AM, [address], [address], [place], [phone], Provider Name:Alexis hickey, 09/02/2025 11:45:00 AM, [address], [address], [place], [phone], Progress Notes * LASHAWN ZAMORA ADOB: [birth year] (85 yo F)Acc No.[id number]:03/22/2025 Progress Notes Patient: LASHAWN ALAN Provider: Jazmín Montanez M.D. 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 Chadwick , Stent placed in right popliteal artery at [facility] 01/2025. * Hospitalization/Major Diagno stic Procedure: V omiting- [facility] ER 12/2012, [facility] 10/29-, [place] 11/20-04/2014, Chest Pain- [facility] ER 10/28/2016, COPD, Asthma- [facility] ER 12/2017, COPD, Asthma- [facility] 04/2018, Stent Placement - [facility]/BK 05/2018, stent placement- [facility] 03/20/19, Stent Placement (L) foot- [facility] 08/16-08/18/2019, PAD- [facility] 08/21-09/2020, Vascular Procedure-Leg Discomfort After Surgery- [facility] 03/13/2021. * Family History: F ather: , coronary artery disease- [place]. M other: , coronary artery disease, diabetes, [...] 0 03/22/2025 Generated for Oh little/Nena/Neenaitting on: 0 06/29/2025 12:07 AM EDT History [...]
--- OUTSIDE RECORDS SUMMARY | 2025-05-01 06:45 | XMS_ITS ---
Author Organization [facility] Address [address] [facility] [address] [place] [phone] Care Team Providers Care Sales Representative Rural Power Name Role Phone Buck Valencia Primary Care Provider [phone] Tom Montanezian Unavailable [phone] Allergies Allergen (clinical drug ingredient) Drug/Non Drug [...] 52 Performing Lab: Notes/Report: Test performed by [facility]0 [facility] , [address], [place] [address] Mehdi Rodríguez MD, Qualification Engineer CLIA: [id number] Sodium 140 135-145 mmol/L Potassium 5.1 3.5-5.3 mmol/L Chloride 100 97-108 mmol/L CO2 29 20-32 mmol/L Glucose 104 65-99 mg/dL BUN 24 8-23 mg/dL Creatinine 1.05 0.50-1.00 mg/dL Calcium 9.7 8.6-10.4 mg/dL eGFR by Creatinine 52 >59 mL/min/1.73m2 P-Vitamin D 25-Hydroxy Reviewed date:05/02/2025 09:01:58 AM Interpretation:49.2 Performing Lab: Notes/Report: Test performed by [facility], [employer] [address] [place] [address] , [address], [place] [address] Mehdi Rodríguez MD, Qualification Engineer CLIA: [id number] Vitamin D 25-Hydroxy 49.2 30.0-100.0 ng/mL Interpretation [...] 05/01/2025 Encounters Encounter Location Date Provider Diagnosis [facility] 1210 [facility] 36 [facility] [address] [place] [phone] 05/01/2025 Alexis Montanez Essential hypertensi on I10 [...] Provider Name:Alexis hickey, 07/03/2025 10:30:00 AM, [address] [facility] 36 [facility], [address], [place], [phone], Provider Name:Alexis hickey, 07/12/2025 10:30:00 AM, [address] [facility] 36 [facility], [address], [place], [phone], Provider Name:Alexis hickey, 09/02/2025 11:45:00 AM, [address], [address], [place], [place], [phone], Progress Notes * LASHAWN ZAMORA ADOB: [birth year] (85 yo F)Acc No.[id number]:05/01/2025 Progress Notes Patient: LASHAWN ALAN Provider: Jazmín Montanez M.D. :1940 A ge:85 Y S ex:Female Date:05/01/2025 Address:[address] [place] [address] , [place], [id number] Pcp:Buck Valencia Subjective: * Chief Complaints: * [...] Stent placed in right popliteal artery at [facility] 01/2025. * Hospitalization/Major Diagno stic Procedure: V omiting- [facility] ER 12/2012, [facility] 10/29-, [place] 11/20-04/2014, Chest Pain- [facility] ER 10/28/2016, COPD, Asthma- [facility] ER 12/2017, COPD, Asthma- [facility] 04/2018, Stent Placement - [facility] 05/2018, stent placement- [facility] 03/20/19, Stent Placement (L) foot- [facility] 08/16-08/18/2019, PAD- [facility] 08/21-09/2020, Vascular Procedure-Leg Discomfort After Surgery- [facility] 03/13/2021. * Family History: F ather: , coronary artery disease- [place]. M other: , coronary artery disease, diabetes, [...] D izziness - R42 5 . B [place] 21.0-21.9, adult - Z68.21 ? Plan: * [...] glucose 149 74 - 106 mg/dL * Heidi Lopezira 05/01/2025 11:46: 11 AM EDT > Provider reviewed results while patient in office. ?LAB: Glycohemoglobin A1c (in house) (Collection Date & Time - 05/01/2025)* Value Reference Range g lycohemoglobin 6.6% 5 - 6.5 % * John Laura 05/01/2025 11:46: 50 AM EDT > Provider [...] G 2211 Complex e/[place], [address] GLUCOSE TEST, 52047 GLYCATED HEMOGLOBIN TEST, Modifiers: QW , 3044F HG A1C LEVEL LT 7.0%, 1036F TOBACCO NON-USER, G8420 BMI<30 AND >=22 CALC & DOCU, G8950 PREHTN/HTN BP DOC INDCD F/U DOC, G8752 MOST RECENT SYSTOLIC BP < 140MM HG, G8754 MOST RECENT DIASTOLIC BP < 90MM HG * Follow Up: v ia phone to report test results,4 Months * Images: Billing Information: * Visit Code: 59641 Office Visit, Est Pt., Level 4. * Procedure Codes: G2211 Complex e/[place]. [address] GLUCOSE TEST. 24164 GLYCATED HEMOGLOBIN TEST. Modifiers: QW 3044F HG [...] 05/01/2025 Generated for Oh little/Nena/eTransmitting on: 0 06/29/2025 12:08 AM EDT History [...]
--- NOTE | 2025-06-29 00:06 | ECG_ITS ---
APPROVED REPORT Exam: Resting ECG HR:69 bpm ECG Measurements Heart Rate 69 AXES MN 159 P 50 QRSd 134 QRS -55 QT 402 T 29 QTc 420 Conclusion SINUS RHYTHM INTRAVENTRICULAR CONDUCTION DELAY [130+ ms QRS DURATION] POSSIBLE ANTERIOR MYOCARDIAL INFARCTION , OF INDETERMINATE AGE [30 ms Q WAVE IN V3/V4, OR R < 0.2 mV IN V4] INFERIOR MYOCARDIAL INFARCTION , OF INDETERMINATE AGE [40+ ms Q WAVE AND/OR ST/T ABNORMALITY IN II/aVF] No STEMI Electronically signed by : JENNIFER HOYT, 06/29/2025 07:09:53
--- OUTSIDE RECORDS SUMMARY | 2025-06-29 00:08 | XMS_ITS | Patient Health Record ---
[facility] [address] [facility] [address] [place] [id number] Care Team Providers Care Clinical Geneticist Name Role Phone Buck Valencia Primary Care Provider Don King Unavailable [phone] Roxton, Alexis Unavailable [phone] Allergies Allergen (clinical drug ingredient) Drug/Non Drug Allergy documented on EMR Reaction Allergy Type Onset Date Status acetaminophen / hydrocodone HYDROcodone-Acetamino phen vomiting Drug Allergy Active codeine Codeine rash Drug Allergy Active morphine Morphine Unknown Drug Allergy Active Penicillin Unknown Drug Allergy Active Results Component Value Reference Range Notes Urinalysis - Inhouse Reviewed date:11/23/2024 01:49:50 PM Interpretation: Performing Lab: Notes/Report: Color/Clarity yellow/clear Leuk Trace Nitrite Neg Urobili 3.2 Protein Neg pH 6.0 Blood Trace-Intact Sp. Gr. 1.020 Ketone Neg Bili Neg Gluc Neg P-Culture, Urine Reviewed date:11/27/2024 09:14:15 AM Interpretation:No Significant Growth Performing Lab: Notes/Report: CLIA: [id number] Mehdi Rodríguez MD, Brick Mason [address] [place] [address] , [address], [place] [address] Test performed by [facility], [employer] Specimen Source Urine - Void Culture, Urine See Below Final Report : No Significant Growth Glucose (In-House) Reviewed date:05/01/2025 11:46:25 AM Interpretation: Performing Lab: Notes/Report: blood glucose 149 74 - 106 mg/dL Glycohemoglobin A1c (in hous e) Reviewed date:05/01/2025 11:46:56 AM Interpretation: Performing Lab: Notes/Report: glycohemoglobin 6.6% 5 - 6.5 % P-Basic Metabolic Panel (BMP ) Reviewed date:05/02/2025 09:01:57 AM Interpretation:Glu 104, BUN 24, Creat 1.05, eGFR 52 Performing Lab: Notes/Report: CLIA: [id number] Mehdi Rodríguez MD, Brick Mason [address] [place] [address] , [place] [address] Test performed by [email or web address] Sodium 140 135-145 mmol/L Potassium 5.1 3.5-5.3 mmol/L Chloride 100 97-108 mmol/L CO2 29 20-32 mmol/L Glucose 104 65-99 mg/dL BUN 24 8-23 mg/dL Creatinine 1.05 0.50-1.00 mg/dL Calcium 9.7 8.6-10.4 mg/dL eGFR by Creatinine 52 >59 mL/min/1.73m2 P-Vitamin D 25-Hydroxy Reviewed date:05/02/2025 09:01:58 AM Interpretation:49.2 Performing Lab: Notes/Report: Test performed by [email or web address] [address] [place] [address] , [place] [address] Mehdi Rodríguez MD, Brick Mason CLIA: [id number] Vitamin D 25-Hydroxy 49.2 30.0-100.0 ng/mL Interpretation of Vitamin D 25 OH: < 20 ng/mL - Deficiency 20 - 29 ng/mL - Insufficiency 30 - 100 ng/mL - Sufficiency > 100 ng/mL - Super-therapeutic- toxicity may occur above this level. Clinical correlation required. H-CBC Reviewed date:02/01/2025 08:34:35 AM Interpretation: Performing Lab: Notes/Report: WBC 10.5 4.8-10.8 K/mm3 RBC 4.16 4.20-5.40 M/mm3 HGB 12.2 12.2-16.2 g/dL Delta: 14.1 o n 01/31/25-8 HCT 38.0 37.0-47.0 % MCV 91.3 81-99 [...] 143 on 01/31/25 CA 8.7 8.4-10.2 mg/dl H-CBC Reviewed date:11/02/2024 08:29:44 AM [...] 0.4 0.0-0.4 K/mm3 BA# 0.0 0-0.2 K/mm3 H-Sputum Culture with Gram Lata celestinesha Reviewed date:11/06/2024 10:08:57 AM Interpretation: Performing Lab: Notes/Report: Comment: Induce w/3ml NS neb tx if necessary GS Gram Stain: GS <10 White Blood Cells/LPF GS <10 Epithelial Cells / LPF GS No Organisms Seen CUSPU ORGANISM 1: Staphylococcus aureus RX BATES: R- Resistant S- Susceptible I- Intermediate * [facility] Quant[facility] Many RX BATES: R- Resistant S- Susceptible I- Intermediate * [facility] RX [facility]ATES: R- Resistant S- Susceptible I- Intermediate * Not on [facility] RX BATES: R- Resistant S- Susceptible I- Intermediate * Not on [facility] Staphylococcus aureu s: REACTION RX BATES: R- Resistant S- Susceptible I- Intermediate * Not on [facility] Clindamycin <=0.5 S RX BATES: R- Resistant S- Susceptible I- Intermediate * Not on [facility] Erythromycin >4 R RX BATES: R- Resistant S- Susceptible I- Intermediate * Not on [facility] Gentamicin <=1 S RX BATES: R- Resistant S- Susceptible I- Intermediate * Not on [facility] Minocycline <=1 S RX BATES: R- Resistant S- Susceptible I- Intermediate * Not on [facility] Oxacillin >2 R RX BATES: R- Resistant S- Susceptible I- Intermediate * Not on [facility] Penicillin >1 R RX BATES: R- Resistant S- Susceptible I- Intermediate * Not on [facility] CUSPU Rifampin <=0.5 S RX BATES: R- Resistant S- Susceptible I- Intermediate * [facility] Tetracycline <=0.5 S RX BATES: R- Resistant S- Susceptible I- Intermediate * [facility] Trimethoprim/Sulfame tho xazole <=0.5/9.5 S RX BATES: R- Resistant S- Susceptible I- Intermediate * [facility] Vancomycin <=0.5 S RX BATES: R- Resistant S- Susceptible I- Intermediate * Not on [facility] CUSU RX BATES: R- Resistant S- Susceptible I- Intermediate * [facility] This organism is a Methicillin Resistant Staph aureus. RX BATES: R- Resistant S- Susceptible I- Intermediate * Not on [facility] CUSU Results called to: Buck ROBLES at 0843 by Ada NORIEGA . RX BATES: R- Resistant S- Susceptible I- Intermediate * Not on [facility] Urinalysis - Inhouse Reviewed date:12/21/2024 04:39:47 PM [...] Notes/Report: glycohemoglobin 6.2% 5 - 6.5 % P-TSH reflex to FT4 Reviewed date:12/21/2024 09:12:59 AM Interpretation:Normal Performing Lab: Notes/Report: CLIA: [id number] Mehdi Rodríguez MD, Brick Mason [address] [place] [address] , [address], [place] [address] Test performed by [email or web address] TSH reflex to FT4 2.13 0.43-5.25 mU/L P-Microalbumin/Creatinine, R andom Urine Sample Reviewed date:12/24/2024 10:56:33 AM Interpretation: Normal Performing Lab: Notes/Report: CLIA: [id number] Mehdi Rodríguez MD, Brick Mason [address] [place] [address] , [address], [place] [address] Test performed by [email or web address] Albumin/Creatinine Ratio, Urine 24 0-30 ug/mg Microalbumin, Urine, Random 1.0 Creatinine, Urine 41.8 P-Vitamin D 25-Hydroxy Reviewed date:12/21/2024 09:12:59 AM Interpretation:Normal Performing Lab: Notes/Report: CLIA: [id number] Mehdi Rodríguez MD, Brick Mason [address] [place] [address] , [address], [place] [address] Test performed by [email or web address] Vitamin D 25-Hydroxy 55.0 30.0-100.0 ng/mL Interpretation of Vitamin D 25 OH: < 20 ng/mL - Deficiency 20 - 29 ng/mL - Insufficiency 30 - 100 ng/mL - Sufficiency > 100 ng/mL - Super-therapeutic- toxicity may occur above this level. Clinical correlation required. Urinalysis - Inhouse Reviewed date:12/24/2024 10:56:33 AM Interpretation: Normal Performing Lab: Notes/Report: Normal Color/Clarity yellow/clear Leuk 1+ Nitrite Neg Urobili 3.2 Protein Neg pH 5.5 Blood Neg Sp. Gr. 1.010 Ketone Neg Bili Neg Gluc Neg P-Culture, Urine Reviewed date:12/24/2024 10:55:44 AM Interpretation:No growth Performing Lab: Notes/Report: CLIA: [id number] Mehdi Rodríguez MD, Brick Mason [address] [place] [address] , [address], [place] [address] Test performed by [email or web address] Specimen Source Urine - Void Culture, Urine See Below Final Report : No growth M-Complete Blood Count Man D if Reviewed [...] 2 0-3 % PLTE Normal RM Normal H-BMP Reviewed date:11/05/2024 08:12:47 AM Interpretation: Performing Lab: [...] 153 74-100 mg/dl CA 9.1 8.4-10.2 mg/dl H-BMP Reviewed date:11/02/2024 08:29:44 AM Interpretation: Performing Lab: Notes/Report: NA 137 136-145 mmol/L K 3.7 3.5-5.1 mmoL/L CL 102 98-107 mmol/L CO2 29 22.0-30.0 mmol/L GAP 9.7 5-15 mEq/L BUN 14 7-17 mg/dl Delta: 20 on 10/31/24-1530 CREATT 0.80 0.52-1.04 mg/dl CRCLE 34 50-200 mL/min GFRAA 83 >60 ML/MIN EGFR 69 >60 ml/min GLU 95 74-100 mg/dl CA 8.5 8.4-10.2 mg/dl P-Basic Metabolic Panel (BMP ) Reviewed date:12/21/2024 09:12:59 AM Interpretation:gluc 146, bun 27, Cr 1.03, gfr 54 Performing Lab: Notes/Report: Test performed by [facility], [address] , [address], [place] [address] Mehdi Rodríguez MD, Brick Mason CLIA: [id number] Sodium 141 135-145 mmol/L Potassium 4.7 3.5-5.3 mmol/L Chloride 100 97-108 mmol/L CO2 31 22-32 mmol/L Glucose 146 65-99 mg/dL BUN 27 8-23 mg/dL Creatinine 1.03 0.50-1.00 mg/dL Calcium 9.5 8.6-10.4 mg/dL eGFR by Creatinine 54 >59 mL/min/1.73m2 Reason For Referral No Information Medications Medication [...] Vaccine Route Administration Date Status Comme nts Prevnar (PCV13) IM Intramuscular 11/13/2018 Administered PNEUMOVAX 23 VACCINE IM Intramuscular 02/18/2021 Administe red Fluzone High Dose (65yr and older) IM Intramuscular 09/04/2018 Administered COVID 19 Pfizer Unknown 11/01/2020 Administered COVID 19 Pfizer Unknown 11/21/2020 Administered Problems Problem Type SNOMED Code ICD Code Onset Dates Problem Status W/U Status Risk Notes Problem Essential hypertension (31889223) Essential (primary) hypertension (I10) Active confirmed Problem Vitamin D deficiency (52741525) Vitamin D deficiency (E55.9) Active confirmed Problem Essential hypertension (56150758) Essential hypertension (I10) Active confirmed Problem Acute exacerbation of chronic obstructive airways disease (535507765) COPD with exacerbation (J44.1) Active confirmed Problem Osteopenia (326450782) Osteopenia (M85.80) Active confirmed Problem Mixed anxiety and depressive disorder (129057795) Depression with anxiety (F41.8) Active confirmed Problem Paroxysmal atrial fibrillation (814607871) Paroxysmal atrial fibrillation (I48.0) Active confirmed Problem Acute exacerbation of chronic obstructive airways disease (264112428) COPD exacerbation (J44.1) Active confirmed Problem Memory loss (85313755) Memory loss (R41.3) Active confirmed Problem Murmur (059110794) Murmur (R01.1) Active confir med Problem 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) Type 2 diabetes mellitus with diabetic chronic kidney disease (E11.22) Active confirmed Problem Chronic systolic heart failure (280680346) Chronic systolic (congestive) heart failure (I50.22) Active confirmed Problem Peripheral vascular disease (928961077) Peripheral vascular disease, unspecified (I73.9) Active confirmed Problem History of peripheral vascular angioplasty (40325452796950794 ) Peripheral vascular angioplasty status (Z98.62) Active confirmed Problem Peripheral vascular disease (284780198) Peripheral vascular disease (I73.9) Active confirmed Problem Depressive disorder (26632975) Depressive disorder (F32.9) Active confirmed Problem Chronic obstructive pulmonary disease (37426951) Asthmatic bronchitis , chronic (J44.9) Active confirmed Problem Uncomplicated moderate persistent asthma (794098249) Moderate persistent asthma without complication (J45.40) Active confirmed Problem Renal insufficiency (520800976) Renal insufficiency (N28.9) Active confirmed Problem COPD - Chronic obstructive pulmonary disease (11542550) Chronic obstructive pulmonary disease, unspecified COPD type (J44.9) Active confirmed Problem Atrial fibrillation (62413082) PAF (paroxysmal atrial fibrillation) (I48.0) Active confirmed Problem Claudication (52812471) Claudication (I73.9) Active confirmed Problem Exacerbation of moderate persistent asthma (disorder) (982528867) Moderate persistent asthma with acute exacerbation (J45.41) Active confirmed Problem Hyperlipidaemia (61596350) Hyperlipidemia, unspecified hyperlipidemia type (E78.5) Active confirmed Problem Dyslipidemia (621691622) Dyslipidemia (E78.5) Active confirmed Problem Peripheral vascular disease (305886738) PAD (peripheral artery disease) (I73.9) Active confirmed Problem Atherosclerotic heart disease of hoopa coronary artery without angina pectoris (906959229643837) 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, unspecified whether hoopa or transplanted heart (I25.10) Active confirmed Problem Left bundle branch block (42093430) Left bundle branch block (I44.7) Active confirmed Problem Type II diabetes mellitus without complication (532013891) Type 2 diabetes mellitus without complication, unspecified whether lease examiner insulin use (E11.9) Active confirmed Problem S/P peripheral artery angioplasty with stent placement (Z95.820) Active confirmed Problem Systolic heart failure (591491713) HFrEF (heart failure with reduced ejection fraction) (I50.20) Active confirmed Problem Chronic kidney disease stage 3A (disorder) (007952950) Stage 3a chronic kidney disease (CKD) (N18.31) Active confirmed Problem Status post amputation of toe (Z89.429) Active confirmed Problem Cerebral atherosclerosis (95599320) Intracranial atherosclerosis (I67.2) Active confirmed Vital Signs Heart Rate 72 /min 05/01/2025 Blood pressure diastolic 60 mm Hg 05/01/2025 Height 58 in 05/01/2025 Blood pressure systolic 114 mm Hg 05/01/2025 Weight 102 lbs 05/01/2025 BMI 21.32 kg/m2 05/01/2025 Encounters Encounter Location Date Provider [facility] [address] [place] [id number] 07/05/2024 R Jefferson King Acute bronchitis J20 .9 and COPD exacerbation J44.1 [facility] [address] [place] [id number] 11/22/2024 Alexis Roxton Bacteremia R78.81 ; Urinary tract infection without hematuria, site unspecified N39.0 and Pneumonia due to infectious organism, unspecified laterality, unspecified part of lung J18.9 [facility] [address] [place], [place] [id number] 12/20/2024 Alexis Roxton Type 2 diabetes mellitus without complication, unspecified whether senior living insulin use E11.9 ; Stage 3a chronic kidney disease (CKD) N18.31 ; Acute cough R05.1 and Vitamin D deficiency E55.9 [facility] [address] [facility] [address] [place], [place] [id number] 12/21/2024 Alexis Roxton Pyuria R82.81 [facility] [address] [place], [place] [id number] 02/15/2025 Alexis Roxton Peripheral vascular disease I73.9 and BMI 21.0-21.9, adult Z68.21 [facility] [address] [place], [place] [id number] 05/01/2025 Alexis Roxton Essential hypertensi on I10 ; Type 2 diabetes mellitus with diabetic chronic kidney disease E11.22 ; Vitamin D deficiency E55.9 ; Dizziness R42 and BMI 21.0-21.9, adult Z68.21 [facility] [address] [place], [place] [id number] 06/27/2025 Buck Valencia [facility] [address] [place], [place] [id number] 07/02/2024 Buck Valencia [facility] [address] [place], [place] [id number] 10/18/2024 Alexis Roxton [facility] [address] [place], [place] [id number] 11/06/2024 Alexis Roxton [facility] [address] [place], [place] [id number] 11/06/2024 Alexis Roxton [facility] [address] [place], [place] [id number] 11/20/2024 Buck Valencia [facility] [address] [place], [place] [id number] 12/21/2024 Alexis Roxton [facility] [address] [place] [id number] 02/05/2025 Alexis Roxton [facility] [address] [place], [place] [id number] 02/18/2025 Alexis Roxton [facility] [address] [place], [place] [id number] 03/25/2025 Alexis Roxton [facility] [address] [place], [place] [id number] 05/02/2025 Alexis Roxton [facility] [address] [place], [place] [id number] 05/20/2025 Buck Valencia Assessments Encounter Date Diagnosis (ICD Code) Assessment Notes Treatment Notes Treatment Clinical Notes Section Notes 07/05/2024 Acute bronchitis (ICD-10 - J20.9) 07/05/2024 COPD exacerbation (ICD-10 - J44.1) 11/22/2024 Bacteremia (ICD-10 - R78.81) Clinically resolved 11/22/2024 Urinary tract infection without hematuria, site unspecified (ICD-10 - N39.0) 12/20/2024 Type 2 diabetes mellitus without complication, unspecified whether lease examiner insulin use (ICD-10 - E11.9) 12/20/2024 Stage 3a chronic kidney disease (CKD) (ICD-10 - N18.31) 12/21/2024 Pyuria (ICD-10 - R82.81) 02/15/2025 Peripheral vascular disease (ICD-10 - I73.9) Keep follow up with cardiology, take all medication as prescribed 02/15/2025 BMI 21.0-21.9, adult (ICD-10 - Z68.21) 05/01/2025 Essential hypertension (ICD-10 - I10) 05/01/2025 Type 2 diabetes mellitus with diabetic chronic kidney disease (ICD-10 - E11.22) 05/01/2025 Vitamin D deficiency (ICD-10 - E55.9) 12/20/2024 Acute cough (ICD-10 - R05.1) 11/22/2024 Pneumonia due to infectious organism, unspecified [...] [address], [address], [place], [place], [id number], Provider Name:Alexis hickey, 07/12/2025 10:30:00 AM, [address], [address], [place], [id number], Provider Name:Alexis Nunez ry, 09/02/2025 11:45:00 AM, [address] [place] [address] [place], [address], [place], [phone], Insurance Providers Payer Name Payer Address Payer Phone Subscriber Number Group Number Insured Name Patient Relationship to Insured Coverage Start Date Coverage End Date [employer] (MEDICAR E) [address] [address] [place] [phone] [id number] LASHAWN ZAMORA Self - patient is the [...] Thigh 11/22/2013 3 Stents, LT thigh - [facility] 03/2019 Balloon Angioplasty - Femoral Artery and Popiteal Artery (L) 08/16/2019 LT Leg Balloon Angioplasty 08/07/2020 Bilateral Leg Stents Replaced 08/2020 RT 3-4 Toe Amputation 03/27/2021 PPM - Dr. Chadwick Stent placed in right popliteal artery a t [facility] 01/2025 Hospitalization History Reason Date(Month/Year) Vascular Procedure-Leg Discomfort After Surgery- [facility] 03/13/2021 PAD- [facility] 08/21-09/2020 Stent Placement (L) foot- [facility] 08/16-11/2018 stent placement- [facility] 03/20/19 Stent Placement - [facility] 05/2018 COPD, Asthma- [facility] 04/2018 COPD, Asthma- [facility] 12/2017 Chest Pain- [facility] 10/28/2016 [place] 11/20-04/2014 [facility] 10/29- Vomiting- [facility] 12/2012
[2025-06-29 00:12] VITALS: BP 106/55; PULSE 68; RESP 16; TEMP 36.9; O2SAT 98; BMI 25.4
--- NOTE | 2025-06-29 00:18 | HMH.EDGENADL ---
Discharge Plan Disposition Patient Disposition: Home, Self-Care Condition: Good Prescriptions Prescriptions: No Action gabapentin 300 mg capsule 300 mg PO BID carvedilol [Coreg] 6.25 mg tablet 6.25 mg PO BID Qty: 180 3RF Rx Instructions: must administer with a meal/food valsartan 40 mg tablet 40 mg PO BID Qty: 180 3RF digoxin 125 mcg (0.125 mg) tablet 125 mcg PO DAILY Qty: 90 1RF pravastatin 40 MG tablet 40 mg PO HS budesonide-formoterol [Symbicort] 10.2 GM HFA aerosol inhaler 2 puffs inhalation BID Eliquis 2.5 mg tablet 2.5 mg PO BID Patient Comments: TAKE 1 TABLET BY MOUTH TWICE DAILY FOR BLOOD THINNER clopidogrel 75 mg tablet 75 mg PO DAILY furosemide 20 mg tablet 20 mg PO DAILYP PRN (Reason: Edema) Referrals Follow up/Referrals: Provider,Referral, MD [Primary Care Provider, Medical] - See instructions Activity Restrictions/Add. Instructions Additional Instructions/Restrictions: You were evaluated in the ER and are believed to be appropriate for discharge at this time. Increase your water intake. You are very dehydrated which caused your symptoms today. Follow-up with your primary care doctor early next week for reevaluation. The engineer booster and exhauster wants to see you on at 2pm with Dr. Calderon. Call their office first thing Tuesday morning to confirm this. Return to the ER with new, worsening, or otherwise concerning symptoms. Clinical Impressions Clinical Impression: Prerenal azotemia, Orthostatic hypotension Print Language Print Language: Khmer Discharge ED Provider: Shaquille Stark Adult HPI General Chief complaint: Dizziness Stated complaint: Low BP Time Seen by Provider: 06/28/25 23:58 History of Present Illness HPI narrative: 85-year-old female who just had left lower extremity ischemia on ballooning for left popliteal artery occlusion and was discharged in the last 24 hours from this procedure presents to the ER for concerns of low blood pressure, near syncope. Patient has been having episodes of near syncope when she stands up feeling very lightheaded. Reportedly family member is a nurse and reported blood pressure at home of 70s over 40s. On arrival to the ER patient has systolics in the low 100s. She denies any chest pain or difficulty breathing. She states she feels well right now but when she stands up she feels lightheaded. She is not having any pain or changes of the left leg. She states she was told by Dr. Chadwick there would be nothing else to do for her left leg if it became blocked again but that she is not having any of the symptoms that caused her to present for her procedure. No headache or dizziness, no abdominal pain, nausea, or vomiting, no numbness, tingling, or weakness, no other associated symptoms. Related Data Home Medications ?Medication ?Instructions ?Recorded ?Confirmed pravastatin 40 mg tablet 40 mg PO HS 03/31/18 06/27/25 budesonide-formoterol HFA 160 2 puffs inhalation BID 08/16/19 06/27/25 mcg-4.5 mcg/actuation aerosol inhaler (Symbicort) gabapentin 300 mg capsule 300 mg PO BID 01/05/22 06/27/25 apixaban 2.5 mg tablet (Eliquis) 2.5 mg PO BID 11/02/24 06/27/25 clopidogrel 75 mg tablet 75 mg PO DAILY 01/31/25 06/27/25 furosemide 20 mg tablet 20 mg PO DAILYP PRN Edema 01/31/25 06/27/25 Previous Rx's ?Medication ?Instructions ?Recorded carvedilol 6.25 mg tablet (Coreg) 6.25 mg PO BID #180 tabs 11/20/24 valsartan 40 mg tablet 40 mg PO BID #180 tabs 11/20/24 digoxin 125 mcg (0.125 mg) tablet 125 mcg PO DAILY #90 tabs 04/30/25 Allergies Allergy/AdvReac Type Severity Reaction Status Date / Time codeine (CODEINE) Allergy Unknown Unknown Verified 06/24/25 13:53 allergy reaction morphine Allergy Unknown Unknown Verified 06/24/25 13:53 allergy reaction fentanyl AdvReac Mild behavior Verified 06/24/25 13:53 changes diphenhydramine (From AdvReac Agitated Verified 06/24/25 13:53 Benadryl) doxycycline AdvReac Nausea Verified 06/24/25 13:53 [facility] Disclaimer: The information contained in this section may have been updated after the patient was seen, as this information can be updated by other users. Medical History Ischemic pain of left foot Claudication Hyperlipemia HTN (hypertension) Paroxysmal atrial fibrillation Peripheral arterial disease CAD (coronary artery disease) Pain in right lower leg Intracranial arteriosclerosis Pneumonia UTI (urinary tract infection) Amputated toe of right foot Cellulitis Fracture of cuneiform bone of foot Acquired pes planus of right foot Osteomyelitis of toe of right foot Postoperative wound dehiscence Charcot's joint of right foot Postoperative dehiscence of skin wound Gangrene of toe Gangrene of toe of right foot Cough Ischemic ulcer of toe of right foot, limited to breakdown of skin Ischemic ulcer of toe of right foot Real time reverse transcriptase PCR positive for COVID-19 virus Peripheral vascular disease of lower extremity Pre-ulcerative calluses Pneumonia Peripheral arterial disease Abnormal ankle brachial index (MICHELE) Cardiac pacemaker in situ Acute bronchitis Left bundle branch block (LBBB) on electrocardiogram Tachy-jose francisco syndrome Near syncope Elevated blood pressure reading Anxiety Diabetic foot Keratosis Callus of foot Diabetic ulcer of right fifth toe Dry gangrene Skin ulcer of second toe of left foot with fat layer exposed Ulcer of left great toe due to diabetes mellitus Primary osteoarthritis of both feet Encounter for wound care Overweight (BMI 25.0-29.9) Type 2 diabetes mellitus without complication, without long-term current use of insulin Acquired hammertoes of both feet Osteomyelitis of toe Left foot infection Nail dystrophy Onychogryphosis Lower limb ischemia PAF (paroxysmal atrial fibrillation) PAD (peripheral artery disease) Leg wound, right Leg edema, right COPD (chronic obstructive pulmonary disease) Diabetes mellitus Rapid atrial fibrillation Pulmonary HTN Diastolic dysfunction Mitral regurgitation meterman current use of anticoagulant therapy A-fib Abnormal ECG Fatigue Dyspnea Atrial fibrillation with RVR Asthma with exacerbation Acute exacerbation of chronic obstructive airways disease CHF (congestive heart failure) Asthma Abnormal ankle brachial index (MICHELE) Abnormal electrocardiography Absence of posterior tibial pulse Anxiety Atrial fibrillation with rapid ventricular response Body mass index (BMI) of 25.0 to 29.9 Callus of foot Chronic obstructive pulmonary disease Coronary artery disease Diabetes mellitus Diabetic foot Diastolic dysfunction Dry gangrene Dystrophia unguium Heart murmur Hyperlipidemia Hypertension Infection of left foot Intermittent claudication Ischemia of lower extremity Keratosis Left bundle branch block (LBBB) determined by electrocardiography Leg wound, right retirement current use of anticoagulant therapy Mitral valve insufficiency Onychogryposis Osteomyelitis of toe Osteopenia determined by x-ray Pneumonia Pre-syncope Presence of cardiac pacemaker Primary osteoarthritis of both feet Pulmonary hypertension Rapid atrial fibrillation Skin ulcer of second toe of left foot with fat layer exposed Systemic inflammatory response syndrome (SIRS) Tachycardia-bradycardia Ulcer of left great toe due to diabetes mellitus Acquired hammer toes of both feet Ulcer of right fifth toe due to diabetes mellitus Memory loss Abnormal findings on diagnostic imaging of heart and coronary circulation Chronic HFrEF (heart failure with reduced ejection fraction) Claudication Surgical History S/P amputation of lesser toe History of complete ray amputation of fourth toe of right foot History of complete ray amputation of third toe of right foot Status post foot surgery Status post placement of cardiac pacemaker S/P peripheral artery angioplasty with stent placement History of amputation of toe History of tubal ligation History of nasal surgery S/P peripheral artery angioplasty with stent placement Status post placement of cardiac pacemaker Family History Diabetes Coronary artery disease Heart attack Social History Smoking Status: Never smoker alcohol intake: never substance use type: denies use current occupational status: retired Travel in the last 8 weeks?: [employer] the [employer] States household members: none housing: house current occupation: Works at [employer] current occupational exposures/hazards: No caffeine: Yes Other Medical History Have you received the Flu Vaccine for this season: No Have you received the Pneumonia Vaccine: No ROS Obtained: Yes Systems reviewed as appropriate & no additional complaints except as documented per HPI Physical Exam General General appearance: alert and in no apparent distress Head Head exam: atraumatic and normocephalic Eye Eye exam: Present PERRL and EOMI ENT ENT exam: Present mucous membranes moist Neck Neck exam: Present normal inspection and full ROM Chest Chest inspection: Present symmetric chest wall rise Respiratory Respiratory exam: Present normal lung sounds bilaterally; Absent respiratory distress, wheezes or stridor Cardiovascular Cardiovascular exam: Present regular rate and normal rhythm Abdominal Exam Abdominal exam: Present soft; Absent distention or tenderness Extremities Exam Extremities exam: Present full ROM and other (DP and PT dopplered in the left lower extremity. 2 to 3-second capillary refill in the small toe of the left foot. No palpable aneurysm or thrill in the left groin, there is moderate bruising); Absent edema, joint swelling or calf tenderness Neurological Exam Neurological exam: Present alert and oriented X3; Absent motor sensory deficit Psychiatric Psychiatric exam: Present normal affect and normal mood Skin Skin exam: Present warm and dry Medical Decision Making Medical Records Medical records reviewed: Yes I reviewed the patient's medical records. Screening: Per USPSTF and CDC recommendations, given the prevalence of disease in our region, it is our hospital?s policy to screen for HIV and viral Hepatitis for all patients aged 18 and over and those with ongoing risk factors. MR Comment: Cardiology note indicates patient was planned for runoff for ischemic left foot. When she got to Cat Cracker Operator her foot was warm and a pulse could be found by Doppler so the runoff was canceled and patient was recommended to be discharged. This was on 06/27/2025. On 06/25 patient did have balloon angioplasty of the left femoral and left popliteal Hermes Inquiry Pt receiving controlled substance: No Vital Signs: 06/29/25 00:12 06/29/25 04:08 06/29/25 04:27 Temperature 98.5 F Temperature Source Oral Pulse Rate 60 Pulse Rate [Orthostatic Lying Right Radial] 66 Pulse Rate [Orthostatic Sitting Right Radial] 66 Pulse Rate [Orthostatic Standing Right Radial] 71 Pulse Rate [Right] 68 Respiratory Rate 16 16 Blood Pressure 140/64 Blood Pressure [Orthostatic Lying Left Arm] 117/60 Blood Pressure [Orthostatic Sitting Left Arm] 155/55 H Blood Pressure [Orthostatic Standing Left Arm] 136/81 Blood Pressure [Right Arm] 106/55 L Blood Pressure Mean [Right Arm] 72 02 Sat by Pulse Oximetry 98 98 Oxygen Delivery Method Room Air Room Air 06/29/25 04:50 Temperature 98.6 F Temperature Source Pulse Rate 60 Pulse Rate [Orthostatic Lying Right Radial] Pulse Rate [Orthostatic Sitting Right Radial] Pulse Rate [Orthostatic Standing Right Radial] Pulse Rate [Right] Respiratory Rate 18 Blood Pressure 110/47 L Blood Pressure [Orthostatic Lying Left Arm] Blood Pressure [Orthostatic Sitting Left Arm] Blood Pressure [Orthostatic Standing Left Arm] Blood Pressure [Right Arm] Blood Pressure Mean [Right Arm] 02 Sat by Pulse Oximetry Oxygen Delivery Method Room Air Lab Data Lab Results 06/29/25 00:05: WBC 10.5, RBC 3.95 L, Hgb 11.6 L, Hct 35.7 L, MCV 90.4, MCH 29.4, MCHC 32.5, RDW 13.1, Plt Count 310, MPV 9.6, Neut % (Auto) 52.8, Lymph % (Auto) 29.8, Pierce % (Auto) 10.9 H, Eos % (Auto) 5.8, Baso % (Auto) 0.4, Neut # (Auto) 5.6, Lymph # (Auto) 3.1, Pierce # (Auto) 1.2 H, Eos # (Auto) 0.6 H, Baso # (Auto) 0.0, Sodium 135 L, Potassium 4.1, Chloride 104, Carbon Dioxide 28, Anion Gap 7.1, BUN 31 H D, Creatinine 1.00 D, Estimated Creat Clear 39, Estimated GFR 53 L, Est GFR ( Amer) 64 D, Glucose 119 H, Calcium 8.7, Total Bilirubin 0.3, AST 38 H, ALT 16, Alkaline Phosphatase 53, Troponin I 0.02, Total Protein 6.2 L, Albumin 3.4 L, Globulin 2.8, Albumin/Globulin Ratio 1.2 06/29/25 03:24: Troponin I 0.05 H 06/29/25 00:05 06/29/25 00:05 Orders (Tests/Meds): ED MEDICATIONS Generic Name Dose Route Start Last Admin Trade Name Freq PRN Reason Stop Dose Admin Sodium Chloride 10 ml 06/29/25 01:30 06/29/25 01:31 Sodium Chloride 0.9% 10ml Syr (Rad Only) IV 07/29/25 01:29 10 ml NEEDED PRN Administration Maintain IV Site Discontinued Medications Generic Name Dose Route Start Last Admin Trade Name Freq PRN Reason Stop Dose Admin Lactated Ringer's 1,000 mls @ 999 mls/hr 06/29/25 00:12 06/29/25 02:34 Lactated Ringer's 1000 Ml Bag IV 06/29/25 01:12 Infused .Q1H1M ONE Infusion Iopamidol 80 ml 06/29/25 01:30 06/29/25 01:31 Iopamidol-370 (76%);100ml Bottle IV 06/29/25 01:31 80 ml ONCE ONE Administration Sodium Chloride 50 ml 06/29/25 01:30 06/29/25 01:31 0.9 % Sodium Chloride 50 Ml Vial IV 06/29/25 01:31 50 ml ONCE ONE Administration ORDERS Category Date Time Status CT angio chest PE protocol Stat Cat Scan 06/29/25 01:18 Completed POCUS Point of Care (ER Only) Stat Exams 06/29/25 01:18 Completed CBC w/Auto Diff [Complete Blood Count Auto Diff] Stat Lab 06/29/25 00:05 Completed CMP [Comprehensive Metabolic Panel] Stat Lab 06/29/25 00:05 Completed Trop I [Troponin I] Stat Lab 06/29/25 00:05 Completed Troponin I Q3H Lab 06/29/25 03:24 Completed Troponin I Q3H Lab 06/29/25 06:15 Ordered Medical Decision Narrative: In summary, this 85-year-old female with peripheral vascular disease, type 2 diabetes, HFrEF, CAD, hypertension, hyperlipidemia presents to the emergency department today with concerns of lightheadedness, near syncope when standing up within 24 hours of hospitalization for concerns of ischemic left lower extremity that did not end up requiring Cat Cracker Operator runoff. On initial evaluation patient is hemodynamically stable, afebrile, alert, oriented, she has no acute complaints at this time stating she feels well, physical exam demonstrates dopplerable pulses in the distal left lower extremity, no evidence of acute limb ischemia, according to previous cardiology notes dopplerable (not palpable) pulses are her baseline, I do not appreciate any evidence of aneurysm in the left groin. Differential diagnosis includes but is not limited to orthostatic hypotension, CHF, ACS, I considered the possibility of of anemia, blood loss, aneurysm, pseudoaneurysm since she has had recent left groin access 06/25. Based on these concerns, I ordered hematologic and serum labs, cardiac workup, CT imaging. ECG personally interpreted demonstrates sinus rhythm, rate 69, normal axis, normal TN and QTc, no STEMI. Patient received IV fluids for treatment. Labs personally reviewed demonstrate no leukocytosis, anemia stable from prior reassuring against acute blood loss, platelets normal, CMP with prerenal azotemia, patient is already receiving IV fluids, AST similar to previous, troponin 0.02, repeat troponin pending. Orthostatics after IV fluids do not demonstrate hypotension or tachycardia. CTA PE personally interpreted does not demonstrate PE, patient has evidence of prior granulomatous disease, see radiology read for full interpretation which comments on bibasilar atelectasis. Patient has no evidence of pneumonia or pulmonary edema clinically. Repeat troponin elevated at 0.05, this is a slight increase from prior but patient is not having any chest pain and has a nonischemic ECG. I initially discussed admission to the hospital with family and they were agreeable but as I was discussing with Dr. Montanez he would prefer that Dr. Curry will be involved prior to admitting the patient because she has been admitted twice this week without significant intervention despite knowing she has cardiac problems. I discussed this case with Dr. Chadwick including her ECG. He does not have specific recommendations for her at this time and states he believes she is appropriate for discharge and follow-up outpatient on Tuesday at 2 PM with Jayda. I appreciate his recommendations and believe patient is appropriate for discharge with this input. On further reassessment patient feels well, she has not had any episodes of dizziness with movement since getting IV fluids. I counseled and educated patient and family on adequate hydration to avoid prerenal azotemia and orthostatic symptoms. Patient is appropriate for discharge at this time and patient and family are comfortable with this plan. Distal pulses are still able to be dopplered. Patient and family given instructions on continued symptomatic monitoring and management, follow-up instructions, and return precautions for the ER. They indicated understanding and the patient was discharged in stable condition. Procedures Miscellaneous Procedure Procedure Performed: Left femoral artery ultrasound Performed by: Shaquille Stark Indication: Recent stenting, bruising Procedure details: Left femoral artery was identified with ultrasound. Good flow. Stent in place. No evidence of aneurysm or pseudoaneurysm, no evidence of bleeding from the artery. Critical Care Critical Care Time Critical Care Time: No
[2025-06-29] MEDS: LACTATED RINGERS 1000ML 1,000 ML 999 ML IV (00:27)
[2025-06-29 00:47] LABS: Alanine Aminotransferase 16 U/L (12-78); Albumin Level 3.4 g/dl (3.5-5.0); Albumin/Globulin Ratio 1.2 (1.1-1.8); Alkaline Phosphatase 53 U/L (38-126); Anion Gap 7.1 mEq/L (5-15); Aspartate Amino Transferase 38 U/L (14-36); Bilirubin,Total 0.3 mg/dl (0.2-1.3); Blood Urea Nitrogen 31 mg/dl (7-17); Calcium 8.7 mg/dl (8.4-10.2); Carbon Dioxide 28 mmol/L (22.0-30.0); Chloride 104 mmol/L (98-107); Creatinine Clearance Estimated 39 mL/min (50-200); Creatinine,Serum 1.00 mg/dl (0.52-1.04); Estimated Glomerular Filt Rate 53 ml/min (>60); GFR (African American) 64 ML/MIN (>60); Globulin 2.8 g/dL (1.3-3.2); Glucose 119 mg/dl (74-100); Hematocrit 35.7 % (37.0-47.0); Hemoglobin 11.6 g/dL (12.2-16.2); Immature Granulocytes % 0.3 %; Mean Corpuscular HGB Conc 32.5 g/dL (31.8-35.4); Mean Corpuscular Hemoglobin 29.4 pg (27.0-31.2); Mean Corpuscular Volume 90.4 fl (81-99); Nucleated Red Blood Cells % 0 %; Platelet Count 310 K/mm3 (142-424); Potassium 4.1 mmoL/L (3.5-5.1); Red Blood Count 3.95 M/mm3 (4.20-5.40); Red Cell Distribution Width-SD 43.1 fL; Sodium 135 mmol/L (136-145); Total Protein,Serum 6.2 g/dl (6.3-8.2); White Blood Count 10.5 K/mm3 (4.8-10.8)
[2025-06-29 00:59] LABS: Troponin I 0.02 ng/ml (0.00-0.034)
--- NOTE | 2025-06-29 01:18 | CT_ITS ---
PROCEDURE INFORMATION: Exam: CTA Chest With Contrast Exam date and time: 06/29/2025 1:31 AM Age: 85 years old Clinical indication: Other: Recent procedure, near syncope TECHNIQUE: Imaging protocol: Computed tomographic angiography of the chest with contrast. Exam focused on the arteries. 3D rendering (Not supervised by radiologist): MIP and/or 3D reconstructed images were created by the technologist. Radiation optimization: All CT scans at this facility use at least one of these dose optimization techniques: automated exposure control; mA and/or kV adjustment per patient size (includes targeted exams where dose is matched to clinical indication); or iterative reconstruction. Contrast material: ISO; Contrast volume: 80 ml; Contrast route: INTRAVENOUS (IV); COMPARISON: CR XR CHEST PORTABLE 10/31/2024 4:29 PM FINDINGS: Pulmonary arteries: Normal. No pulmonary emboli. Aorta: Unremarkable. No aortic aneurysm. No aortic dissection. Lungs: Prominent left lower lobe granuloma. Minimal bibasilar atelectasis no focal infiltrates. Pleural spaces: Unremarkable. No pneumothorax. No pleural effusion. Heart: Unremarkable. No cardiomegaly. No pericardial effusion. Coronary arteries: Moderate coronary calcium. Lymph nodes: Calcified left hilar lymph nodes. Bones/joints: Moderate to severe multilevel degenerative disc disease including disc space narrowing, vacuum disc phenomena, spondylosis and degenerative facet changes. . No acute fracture. Soft tissues: Unremarkable. IMPRESSION: 1. No evidence of pulmonary embolus or other acute process. 2. Moderate coronary calcium. 3. Calcified left hilar lymph nodes and left lower lobe granuloma consistent with prior granulomatous infection. 4. Bibasilar atelectasis no definite infiltrate.
[2025-06-29] MEDS: IOPAMIDOL-370 (76%);100ML BOTTLE 80 ML IV (01:31)
[2025-06-29] MEDS: 0.9 % SODIUM CHLORIDE 50 ML VIAL IV (01:31)
[2025-06-29] MEDS: SODIUM CHLORIDE 0.9% 10ML SYR (RAD ONLY) 10 ML IV (01:31)
--- NOTE | 2025-06-29 01:57 | PC.NURSE ---
Addendum entered by Kelsea Damon RN 06/29/25 01:58: Left Femoral Original Note: Provider completed US on L leg
[2025-06-29 04:08] VITALS: BP 117/60; BP 136/81; BP 155/55; PULSE 66; PULSE 71
[2025-06-29 04:08] LABS: Troponin I 0.05 ng/ml (0.00-0.034)
--- NOTE | 2025-06-29 04:22 | PC.NURSE ---
Spoke to Lab r/t 2nd Trop. Lab stated it was resulted. Lab not showing in PT resulted LAb from this nurses view.
[2025-06-29 04:27] VITALS: BP 140/64; PULSE 60; RESP 16; O2SAT 98
[2025-06-29 04:50] VITALS: BP 110/47; PULSE 60; RESP 18; TEMP 37; O2SAT 100
== END 2025-06-29 04:55 | disposition home or self-care (01) ==
PROVIDERS: Emergency Provider Emergency Medicine
DX: I95.1 Orthostatic hypotension (principal); R79.89 Other specified abnormal findings of blood chemistry; E11.9 Type 2 diabetes mellitus without complications; I10 Essential (primary) hypertension
CPT/HCPCS: 71275; 80053; 84484; 85025; 93005; 96360; 99284; J7120; Q9967

== ENCOUNTER 2025-09-01 16:17 | Outpatient (CLI) | payer MEDICARE, SELFPAY ==
--- OUTSIDE RECORDS SUMMARY | 2024-12-20 05:00 | XMS_ITS ---
Author Organization [facility] Address [address] [facility] [address] [place] [id number] Care Team Providers Care Manager Multicultural Name Role Phone Buck Valencia Primary Care Provider [phone] Alexis Montanez Unavailable [phone] Allergies Allergen (clinical drug ingredient) Drug/Non Drug Allergy documented on EMR Reaction Allergy Type Onset Date Status acetaminophen / hydrocodone HYDROcodone-Acetamino phen vomiting Drug Allergy Active codeine Codeine rash Drug Allergy Active morphine Morphine Unknown Drug Allergy Active Penicillin Unknown Drug Allergy Active Results Component Value Reference Range Notes Urinalysis - Inhouse Reviewed date:12/21/2024 04:39:47 PM Interpretation: Performing Lab: Notes/Report: Glucose (In-House) Reviewed date:12/20/2024 06:00:44 PM Interpretation: Performing Lab: Notes/Report: blood glucose 168 74 - 106 mg/dL CBC Venipuncture (in house) Reviewed date:12/20/2024 06:01:01 PM Interpretation: Performing Lab: Notes/Report: wbc 8.3 3.5 - 10 lymph 25.4% 15 - 50 mid 6.8% 2 - 15 gran 67.8% 35 - 80 rbc 4.52 3.5 - 5.5 hgb 13.4 11.5 - 16.5 hct 40.3 35 - 55 mcv 89.1 75 - 100 mch 29.7 25 - 35 mchc 33.4 31 - 38 platlet 236 100 - 400 Glycohemoglobin A1c (in hous e) Reviewed date:12/20/2024 06:00:53 PM Interpretation: Performing Lab: Notes/Report: glycohemoglobin 6.2% 5 - 6.5 % P-Basic Metabolic Panel (BMP ) Reviewed date:12/21/2024 09:12:59 AM Interpretation:gluc 146, bun 27, Cr 1.03, gfr 54 Performing Lab: Notes/Report: Test performed by [facility] [address] , [place] [address] Mehdi Rodríguez MD, Diesel Technician Mechanic CLIA: [id number] Sodium 141 135-145 mmol/L Potassium 4.7 3.5-5.3 mmol/L Chloride 100 97-108 mmol/L CO2 31 22-32 mmol/L Glucose 146 65-99 mg/dL BUN 27 8-23 mg/dL Creatinine 1.03 0.50-1.00 mg/dL Calcium 9.5 8.6-10.4 mg/dL eGFR by Creatinine 54 >59 mL/min/1.73m2 P-TSH reflex to FT4 Reviewed date:12/21/2024 09:12:59 AM Interpretation:Normal Performing Lab: Notes/Report: Test performed by [facility] [address] , [address], [place] [address] Mehdi Rodríguez MD, Diesel Technician Mechanic CLIA: [id number] TSH reflex to FT4 2.13 0.43-5.25 mU/L P-Microalbumin/Creatinine, R andom Urine Sample Reviewed date:12/24/2024 10:56:33 AM Interpretation: Normal Performing Lab: Notes/Report: Test performed by [facility] [address] , [place] [address] Mehdi Rodríguez MD, Diesel Technician Mechanic CLIA: [id number] Albumin/Creatinine Ratio, Urine 24 0-30 ug/m g Microalbumin, Urine, Random 1.0 Creatinine, Urine 41.8 P-Vitamin D 25-Hydroxy Reviewed date:12/21/2024 09:12:59 AM Interpretation:Normal Performing Lab: Notes/Report: Test performed by [facility] [address] , [place] [address] Mehdi Rodríguez MD, Diesel Technician Mechanic CLIA: [id number] Vitamin D 25-Hydroxy 55.0 30.0-100.0 ng/mL Interpretation of Vitamin D 25 [place]: < 20 ng/mL - Deficiency 20 - 29 ng/mL - Insufficiency 30 - 100 ng/mL - Sufficiency > 100 ng/mL - Super-therapeutic- toxicity may occur above this level. Clinical correlation required. REASON FOR VISIT 1 month ckup Medications Medication SIG (Take, Route, Frequency, Duration) Notes Start Date End Date Status Ventolin HFA 108 (90 Base) MCG/ACT 1 puff Inhalation every 4 hrs, prn Active Symbicort 160-4.5 MCG/ACT 2 puff(s) inha led 2 times a day Active Eliquis 2.5 MG TAKE 1 TABLET BY MARTHA TH TWICE DAILY; Duration: 30 Active Ipratropium-Albuterol 0.5-2.5 (3) MG/3ML INHALE THE CONTENTS OF 1 VIAL BY NEBULIZER 4 TIMES A DAY NEEDED; Duration: 15 Active Pravastatin Sodium 40 MG TAKE 1 TABLET B Y MOUTH AT BEDTIME; Duration: 30 days Active Vitamin D3 125 MCG (5000 UT) 1 cap(s) orally once a day; Duration: 30 day(s) 07/14/2022 Active Aspirin 81 MG 1 tab(s) orally once a day Active Losartan Potassium 100 MG 1 tab(s) orall y once a day Active Furosemide 40 MG 1/2-1 tab(s) orally alt 20 and 40 mg Active Clopidogrel Bisulfate 75 MG 1 tab(s) orally once a day Active Promethazine-DM 6.25-15 MG/5ML 5 ml as needed Orally every 6 hrs 12/20/2024 Active Digoxin 125 MCG 1 tab(s) orally once a day Active Carvedilol 3.125 MG 1 tablet with food Orally Twice a day; Duration: 30 day(s) Active Benzonatate 200 MG 1 capsule as needed Orally Three times a day 12/20/2024 Active metFORMIN HCl ER 500 MG 1 tab(s) orally Two times a day; Duration: 90 days Not-Taking Gabapentin 300 MG 1 cap(s) orally 2 ti mes a day; Duration: 30 day(s) 11/20/2024 Active Vital Signs Weight 108.4 lbs 12/20/2024 Blood pressure systolic 110 mm Hg 12/21/19 25 Blood pressure diastolic 70 mm Hg 025 Heart Rate 62 /min 12/20/2024 Height 58 in 12/20/2024 BMI 22.65 kg/m2 12/20/2024 Encounters Encounter Location Date Provider Diagnosis [facility] [address] [facility] 36 [facility] [address] [place] [id number] 12/20/2024 Alexis Montanez Type 2 diabetes mellitus without complication, unspecified whether senior care insulin use E11.9 ; Stage 3a chronic kidney disease (CKD) N18.31 ; Acute cough R05.1 and Vitamin D deficiency E55.9 Assessments Encounter Date Diagnosis (ICD Code) Assessment Notes Treatment Notes Treatment Clinical Notes Section Notes 12/20/2024 Type 2 diabetes mellitus without complication, unspecified whether ocean transportation intermediary insulin use (ICD-10 - E11.9) 12/20/2024 Stage 3a chronic kidney disease (CKD) (ICD-10 - N18.31) 12/20/2024 Acute cough (ICD-10 - R05.1) 12/20/2024 Vitamin D deficiency (ICD-10 - E55.9) Plan Of Treatment Medication Medication Name Sig Start Date Stop Date Notes Promethazine-DM 6.25-15 MG/5ML 5 ml as n eeded Orally every 6 hrs 12/20/2024 metFORMIN HCl ER 500 MG TAKE 1 TABLET BY MOUTH TWO TIMES A DAY Benzonatate 200 MG 1 capsule as needed Orally Three times a day 12/20/2024 Next Appt Details Follow Up: 3 Months, Reason: Provider Name:Alexis hickey, 09/03/2025 11:45:00 AM, [address] [facility] 36 [facility], [address], [place], [phone], Provider Name:Alexis hickey, 09/04/2025 10:15:00 AM, [address], [place], [phone], Progress Notes * LASHAWN ZAMORA ADOB: [birth year] (85 yo F)Acc No.[id number]:12/20/2024 Progress Notes Patient: Barrie ELIZABETH LASHAWN El Provider: Jazmín Montanez M.D. :1940 A ge:84 Y S ex:Female Date:12/20/2024 Address:[address] [place] [address] , [id number] Pcp:Buck Valencia Subjective: * Chief Complaints: * 1 . 1 month ckup. * HPI: E ndocrinology: 84 year old female presents with c/o Appetite Change P t here for 1 mo f/u on decreased appetite. Pt's daughter states that pt is doing better and is eating more now. c/o Recent Blood Sugars P t's daughter would like to see if pt is able to get a Dexcom. Pt seems to get confused about when to take medication. Pt's daughter states that she feels like pt would denefit from having constant blood sugar monitoring. * ROS: D ERMATOLOGY: no R marcy. n o H efren. G ASTROENTEROLOGY: no N ausea. n o V omiting. U ROLOGY: no D ifficulty urinating. n o B lood in urine. * Medical History: T ype 2 Diabetes Mellitus, Hypertension, Hypercholestrolemia, Asthma, COPD, CHF, Abnormal Echo 2018, Coronary Artery Disease, Atrial Fibrillation, Cardiac Murmur, Peripheral Vascular Disease. 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 Chadwick . * Hospitalization/Major Diagno stic Procedure: V omiting- [facility] ER 12/2012, [facility] 10/[facility]-, [place] 11/20-04/2014, Chest Pain- [facility] ER 10/28/2016, COPD, Asthma- [facility] ER 12/2017, COPD, Asthma- [facility] 04/2018, Stent Placement - [facility] 05/2018, stent placement- [facility] 03/20/19, Stent Placement (L) foot- [facility] 08/16-08/18/2019, PAD- [facility] 08/21-09/2020, Vascular Procedure-Leg Discomfort After Surgery- [facility] 03/13/2021. * Family History: F ather: , coronary artery disease- [place]. M other: , coronary artery disease, diabetes, vascular disease. S iblings: diabetes, coronary artery disease. 1 brother(s) , 3 sister(s) . 1 son(s) , 3 daughter(s) . . * Social History: C URRENT TOBACCO USE S moking Status: Patient does NOT smoke. C affeine: no. Marital Status: Single, . Past smoking status: no, Smoking status: Does not smoke. Alcohol: no. * Medications: T aking Carvedilol 3.125 MG Tablet 1 tablet with food Orally Twice a day , Taking Digoxin 125 MCG Tablet 1 tab(s) orally once a day , Taking Aspirin 81 MG Tablet Delayed Release 1 tab(s) orally once a day , Taking Clopidogrel Bisulfate 75 MG Tablet 1 tab(s) orally once a day , Taking Losartan Potassium 100 MG Tablet 1 tab(s) orally once a day , Taking Furosemide 40 MG Tablet 1/2-1 tab(s) orally alt 20 and 40 mg , Taking Vitamin D3 125 MCG (5000 UT) Capsule 1 cap(s) orally once a day , Taking Eliquis 2.5 MG Tablet TAKE 1 TABLET BY MOUTH TWICE DAILY , Taking Ventolin HFA 108 (90 Base) MCG/ACT Aerosol Solution 1 puff Inhalation every 4 hrs, prn , Taking Symbicort 160-4.5 MCG/ACT Aerosol 2 puff(s) inhaled 2 times a day , Taking Ipratropium-Albuterol 0.5-2.5 (3) MG/3ML Solution INHALE THE CONTENTS OF 1 VIAL BY NEBULIZER 4 TIMES A DAY NEEDED , Taking Pravastatin Sodium 40 MG Tablet TAKE 1 TABLET BY MOUTH AT BEDTIME , Taking Gabapentin 300 MG Capsule 1 cap(s) orally 2 times a day , Not-Taking metFORMIN HCl ER 500 MG Tablet Extended Release 24 Hour 1 tab(s) orally Two times a day , Medication List reviewed and reconciled with the patient * Allergies: P enicillin, HYDROcodone-Acetaminophen: vomiting - Side Effects, Codeine: rash - Side Effects, Morphine: Side Effects. Objective: * Vitals: W t:108.4, Temp:98.3, BP:110/70, HR:62, O2 Sat:93% on RA, Nurse:jodie, Ht: 58 , BMI:22.65. * Examination: G eneral Examination: General Appearance: N AD. O ral cavity: mild erythema. H eart: R SR. L ungs: c lear to auscultation. E xtremities: no leg edema. Assessment: * Assessment: 1. T ype 2 diabetes mellitus without complication, unspecified whether ocean transportation intermediary insulin use - E11.9 (Primary) 2 . S tage 3a chronic kidney disease (CKD) - N18.31 ?3. A cute cough - R05.1 4 . V itamin D deficiency - E55.9 ? Plan: * Treatment: Value Reference Range B UN 27 H 8-23 - mg/dL * C alcium 9.5 8.6-10.4 - mg/dL * C hloride 100 97-108 - mmol/L * C O2 31 22-32 - mmol/L * C reatinine 1.03 H 0.50-1.00 - mg/dL * G lucose 146 H 65-99 - mg/dL * P otassium 4.7 3.5-5.3 - mmol/L * S odium 141 135-145 - mmol/L * e GFR by Creatinine 54 L >59 - mL/min/1.73m2 * Edilia Byrd 12/21/2024 09:12 :44 AM > See phone encounter ?LAB: P-TSH reflex to FT4 (Collection Date & Time - 12/20/2024 09:32 AM)? Normal* Value Reference Range T SH reflex to FT4 2.13 0.43-5.25 - mU/L * Edilia Byrd 12/21/2024 09:12 :44 AM > See phone encounter ?LAB: Glucose (In-House) (Collection Date & Time - 12/20/2024)* Value Reference Range b lood glucose 168 74 - 106 mg/dL * Laura Lopez 12/20/2024 10:53:22 AM > , Provider reviewed results while patient in office. ?LAB: Glycohemoglobin A1c (in house) (Collection Date & Time - 12/20/2024)* Value Reference Range g lycohemoglobin 6.2% 5 - 6.5 % * Laura Lopez 12/20/2024 10:53:45 AM > , Provider reviewed results while patient in office. ?LAB: P-Microalbumin/Creatinine, Random Urine Sample (Collection Date & Time - 12/21/2024 02:56 PM)?Normal* Value Reference Range A lbumin/Creatinine Ratio, Urine 24 0-30 - ug /mg * C reatinine, Urine 41.8 - mg/dL * M icroalbumin, Urine, Random 1.0 - mg/dL * Edilia Byrd 12/24/2024 10:56 :24 AM >See phone encounter 2.?Stage 3a chronic kidney disease (CKD)?LAB: P-Basic Metabolic Panel (BMP) (Collection Date & Time - 12/20/2024 09:32 AM)?gluc 146, bun 27, Cr 1.03, gfr 54* Value Reference Range B UN 27 H 8-23 - mg/dL * C alcium 9.5 8.6-10.4 - mg/dL * C hloride 100 97-108 - mmol/L * C O2 31 22-32 - mmol/L * C reatinine 1.03 H 0.50-1.00 - mg/dL * G lucose 146 H 65-99 - mg/dL * P otassium 4.7 3.5-5.3 - mmol/L * S odium 141 135-145 - mmol/L * e GFR by Creatinine 54 L >59 - mL/min/1.73m2 * Edilia Byrd 12/21/2024 09:12 :44 AM > See phone encounter ?LAB: Urinalysis - Inhouse (Collection Date & Time - 12/21/2024)* Laura Lopez 12/21/2024 4:39:17 PM > See 12/21/2024 office visit 3.?Acute cough? Start Benzonatate Capsule, 200 MG, 1 capsule as needed, Orally, Three times a day, 30, Refills 0; Start Promethazine-DM Syrup, 6.25-15 MG/5ML, 5 ml as needed, Orally, every 6 hrs, 473 mL, Refills 0.?LAB: CBC Venipuncture (in house) (Collection Date & Time - 12/20/2024)* Value Reference Range w bc 8.3 3.5 - 10 * l ymph 25.4% 15 - 50 * m id 6.8% 2 - 15 * g ran 67.8% 35 - 80 * r bc 4.52 3.5 - 5.5 * h gb 13.4 11.5 - 16.5 * h ct 40.3 35 - 55 * m cv 89.1 75 - 100 * m ch 29.7 25 - 35 * m chc 33.4 31 - 38 * p latlet 236 100 - 400 * JohnLaura 12/20/2024 11:08:42 AM > , Provider reviewed results while patient in office. 4.?Vitamin D deficiency?LAB: P-Vitamin D 25-Hydroxy (Collection Date & Time - 12/20/2024 09:32 AM)? Normal* Value Reference Range V itamin D 25-Hydroxy 55.0 30.0-100.0 - ng/mL * Edilia Byrd 12/21/2024 09:12 :44 AM > See phone encounter * Procedure Codes: G 2211 Complex e/[place], [address] [place], [address] GLUCOSE TEST, 45040 GLYCATED HEMOGLOBIN TEST, Modifiers: QW , 17595 CBC WITH AUTO DIFF, 56840 Urinalysis, no micro, 3044F HG A1C LEVEL LT 7.0%, G8752 MOST RECENT SYSTOLIC BP < 140MM HG, G8754 MOST RECENT DIASTOLIC BP < 90MM HG * Follow Up: 3 Months * Images: Billing Information: * Visit Code: 02188 Office Visit, Est Pt., Level 4. * Procedure Codes: G2211 Complex e/[place]. [address] [place]. [address] GLUCOSE TEST. 09151 GLYCATED HEMOGLOBIN TEST. Modifiers: QW 49153 CBC WITH AUTO DIFF. 14290 Urinalysis, no micro. 3044F HG A1C LEVEL LT 7.0%. G8752 MOST RECENT SYSTOLIC BP < 140MM HG. G8754 MOST RECENT DIASTOLIC BP < 90MM HG. * Electronic signature of Carmita Montanez MD on 09/01/2025 at 04:23 PM EST Sign off status: Pending * Provider: Jazmín Montanez M.D. Date: 0 12/20/2024 Generated for Oh little/Nena/eTransmitting on: 1 11/01/2024 04:23 PM EST History and Physical Notes * HPI (History of Present Illness) Category Sub-Category Detail Notes Category Not es Endocrinology Appetite Change Pt here for 1 mo f/u on decreased appetite. Pt's daughter states that pt is doing better and is eating more now Recent Blood Sugars Pt's daughter would like to see if pt is able to get a Dexcom. Pt seems to get confused about when to take medication. Pt's daughter states that she feels like pt would denefit from having constant blood sugar monitoring Examination Category Sub-Category Detail Notes Category Not es General Examination Heart: RSR Lungs: clear to auscultatio n Extremities: no leg edema General Appearance: NAD Oral cavity: mild erythema
--- OUTSIDE RECORDS SUMMARY | 2024-12-21 11:15 | XMS_ITS ---
Author Organization [facility] Address [address] [facility] 36 [facility] [address] [place] [id number] Care Team Providers Care Polymer Tester Name Role Phone Buck Valencia Primary Care Provider Alexis Montanez Unavailable [phone] Results Component Value Reference Range Notes Urinalysis - Inhouse Reviewed date:12/24/2024 10:56:33 AM Interpretation: Normal Performing Lab: Notes/Report: Normal Color/Clarity yellow/clear Leuk 1+ Nitrite Neg Urobili 3.2 Protein Neg pH 5.5 Blood Neg Sp. Gr. 1.010 Ketone Neg Bili Neg Gluc Neg P-Culture, Urine Reviewed date:12/24/2024 10:55:44 AM Interpretation:No growth Performing Lab: Notes/Report: Test performed by [employer] [employer] [address] [place] [address] , [address], [place] [address] Mehdi Rodríguez MD, Meteorological Equipment Repairer CLIA: [id number] Specimen Source Urine - Void Culture, Urine See Below Final Report : No growth REASON FOR VISIT urine sample Medications Medication SIG (Take, Route, Frequency, Duration) Notes Start Date End Date Status Digoxin 125 MCG 1 tab(s) orally once a day Active Carvedilol 3.125 MG 1 tablet with food O rally Twice a day; Duration: 30 day(s) Active metFORMIN HCl ER 500 MG TAKE 1 TABLET BY MOUTH TWO TIMES A DAY; Duration: 90 Active Clopidogrel Bisulfate 75 MG 1 tab(s) ora lly once a day Active Aspirin 81 MG 1 tab(s) orally once a day Active Gabapentin 300 MG 1 cap(s) orally 2 ti mes a day; Duration: 30 day(s) 11/20/2024 Active Pravastatin Sodium 40 MG TAKE 1 TABLET B Y MOUTH AT BEDTIME; Duration: 30 days Active Ipratropium-Albuterol 0.5-2.5 (3) MG/3ML INHALE THE CONTENTS OF 1 VIAL BY NEBULIZER 4 TIMES A DAY NEEDED; Duration: 15 Active Promethazine-DM 6.25-15 MG/5ML 5 ml as needed Orally every 6 hrs 12/20/2024 Active Benzonatate 200 MG 1 capsule as needed Orally Three times a day 12/20/2024 Active Furosemide 40 MG 1/2-1 tab(s) orally alt 20 and 40 mg Active Symbicort 160-4.5 MCG/ACT 2 puff(s) inha led 2 times a day Active Ventolin HFA 108 (90 Base) MCG/ACT 1 puff Inhalation every 4 hrs, prn Active Eliquis 2.5 MG TAKE 1 TABLET BY MARTHA TH TWICE DAILY; Duration: 30 Active Vitamin D3 125 MCG (5000 UT) 1 cap(s) orally once a day; Duration: 30 day(s) 07/14/2022 Active Losartan Potassium 100 MG 1 tab(s) orall y once a day Active Encounters Encounter Location Date Provider Diagnosis [facility] [address] [place], [place] [id number] 12/21/2024 [facility]issonali [facility] Pyuria R82.81 Assessments Encounter Date Diagnosis (ICD Code) Assessment Notes Treatment Notes Treatment Clinical Notes Section Notes 12/21/2024 Pyuria (ICD-10 - R82.81) Plan Of Treatment Next Appt Details Provider Name:Alexis hickey, 09/03/2025 11:45:00 AM, [address] [facility], [address], [place], [phone], Provider Name:Alexis hickey, 09/04/2025 10:15:00 AM, [address] [facility], [address], [place], [phone], Progress Notes * LASHAWN ZAMORA ADOB: [birth year] (85 yo F)Acc No.[id number]:12/21/2024 Patient: Barrie LASHAWN ELIZABETH Provider: Jazmín Montanez M.D. :1940 A ge:84 Y S ex:Female Date:12/21/2024 Address:[address] [place] [address] [place], [id number] Pcp:Buck Valencia Subjective: * Chief Complaints: * 1 . Urine sample. * Medical History: * Medications: T aking Carvedilol 3.125 MG [...] cap(s) orally 2 times a day , Taking Benzonatate 200 MG Capsule 1 capsule as needed Orally Three times a day , Taking Promethazine-DM 6.25-15 MG/5ML Syrup 5 ml as needed Orally every 6 hrs , Taking metFORMIN HCl ER 500 MG Tablet Extended Release 24 Hour TAKE 1 TABLET BY MOUTH TWO TIMES A DAY , Medication List reviewed and reconciled with the patient Objective: * Vitals: Assessment: * Assessment: 1. P jaspreet - R82.81 (Primary) Plan: * Treatment: Value Reference Range C ulture, Urine See Below - * S pecimen Source Urine - Void - * Edilia Byrd 12/24/2024 10:55 :38 AM > See phone encounter ?LAB: Urinalysis - Inhouse (Collection Date & Time - 12/21/2024)?Normal* Value Reference Range C olor/Clarity yellow/clear * L euk 1+ * N itrite Neg * U robili 3.2 * P rotein Neg * p H 5.5 * B lood Neg * S p. Gr. 1.010 * K etone Neg * B flex Neg * G justice Neg * Laura Lopez 12/21/2024 3:52:06 PM > Edilia Byrd 12/24/2024 10:56:24 AM >See phone encounter * Procedure Codes: 8 1002 Urinalysis, no micro * Images: Billing Information: * Visit Code: * Procedure Codes: 60151 Urinalysis, no micro. * Electronic signature of Carmita Montanez MD on 09/01/2025 at 04:25 PM EST Sign off status: Pending * Provider: Jazmín Montanez M.D. Date: 0 12/21/2024 Generated for Oh little/Nena/Yayaransmitting on: 1 11/01/2024 04:25 PM EST
--- OUTSIDE RECORDS SUMMARY | 2025-02-15 05:00 | XMS_ITS ---
Author Organization [facility] Address [address] [facility] [address] [facility] [address] [place] [id number] Care Team Providers Care Broadband Technician Name Role Phone Buck Valencia Primary Care Provider Alexis Montanez Unavailable [phone] Allergies Allergen (clinical drug ingredient) Drug/Non Drug Allergy documented on EMR Reaction Allergy Type Onset Date Status acetaminophen / hydrocodone HYDROcodone-Acetamino phen vomiting Drug Allergy Active codeine Codeine rash Drug Allergy Active morphine Morphine Unknown Drug Allergy Active Penicillin Unknown Drug Allergy Active REASON FOR VISIT [facility] D/C fu Medications Medication SIG (Take, Route, Frequency, Duration) Notes Start Date End Date Status Clopidogrel Bisulfate 75 MG 1 tab(s) ora lly once a day Active metFORMIN HCl ER 500 MG TAKE 1 TABLET BY MOUTH TWO TIMES A DAY; Duration: 90 Active Digoxin 125 MCG 1 tab(s) orally once a day Active Aspirin 81 MG 1 tab(s) orally once a day Active Carvedilol 3.125 MG 1 tablet with food O rally Twice a day; Duration: 30 day(s) Active Gabapentin 300 MG 1 cap(s) orally 2 ti mes a day; Duration: 30 day(s) 11/20/2024 Active Ipratropium-Albuterol 0.5-2.5 (3) MG/3ML INHALE THE CONTENTS OF 1 VIAL BY NEBULIZER 4 TIMES A DAY NEEDED; Duration: 15 Active Pravastatin Sodium 40 MG TAKE 1 TABLET B Y MOUTH AT BEDTIME; Duration: 30 days Active Eliquis 2.5 MG TAKE 1 TABLET BY TWICE DAILY; Duration: 30 Active Ventolin HFA 108 (90 Base) MCG/ACT 1 puff Inhalation every 4 hrs, prn Active Furosemide 40 MG 1/2-1 tab(s) orally alt 20 and 40 mg Active Vitamin D3 125 MCG (5000 UT) 1 cap(s) orally once a day; Duration: 30 day(s) 07/14/2022 Active Symbicort 160-4.5 MCG/ACT 2 puff(s) inha led 2 times a day Active Losartan Potassium 100 MG 1 tab(s) orall y once a day Active Vital Signs Weight 105 lbs 02/15/2025 Blood pressure systolic 110 mm Hg 02/16/20 25 Blood pressure diastolic 68 mm Hg 025 Heart Rate 64 /min 02/15/2025 Height 58 in 02/15/2025 BMI 21.94 kg/m2 02/15/2025 Encounters Encounter Location Date Provider Diagnosis [facility] [address] [facility] [address] [facility] [address] [place] [id number] 02/15/2025 Alexis Montanez Peripheral vascular disease I73.9 and BMI 21.0-21.9, adult Z68.21 Assessments Encounter Date Diagnosis (ICD Code) Assessment Notes Treatment Notes Treatment Clinical Notes Section Notes 02/15/2025 Peripheral vascular disease (ICD-10 - I73.9) Keep follow up with cardiology, take all medication as prescribed 02/15/2025 BMI 21.0-21.9, adult (ICD-10 - Z68.21) 02/15/2025 Other Discharge summary with available lab/diagnostic imaging results obtained and reviewed. Discharge medication list reconciled. Appropriate counseling provided. Moderate Complexity Plan Of Treatment Treatment Notes Assessment Notes Peripheral vascular disease Keep follow up with cardiology, take all medication as prescribed Other Discharge summary wi th available lab/diagnostic imaging results obtained and reviewed. Discharge medication list reconciled. Appropriate counseling provided. Moderate Complexity Next Appt Details Follow Up: as scheduled,and prn, Reason: Provider Name:Alexis hickey, 09/03/2025 11:45:00 AM, [address] [facility] [address] [facility], [address], [place], [phone], Provider Name:Alexis hickey, 09/04/2025 10:15:00 AM, [address] [facility] [address] [facility], [address], [place], [phone], Progress Notes * LASHAWN ZAMORA ADOB: [birth year] (85 yo F)Acc No.[id number]:02/15/2025 Progress Notes Patient: LASHAWN ALAN Provider: Jazmín Montanez M.D. :1940 A ge:84 Y S ex:Female Date:02/15/2025 Address:[address] [place] [address], [place], [id number] Pcp:Buck Valencia Subjective: * Chief Complaints: * 1 . [facility] D/C fu. * HPI: H PI: Patient is here today for a Transition of Care Visit after having a stent placed in her right popliteal artery. Discharge from the following Facility: [facility] ,Discharge date: Tuesday02/01/2025 ,Date of phone contact following discharge: 2 messages left 02/05/2025, spoke with patient son on 02/06/2025. * ROS: D ERMATOLOGY: no R marcy. 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 Chadwick , Stent placed in right popliteal artery at [facility] 01/2025. * Hospitalization/Major Diagno stic Procedure: V omiting- [facility] ER 12/2012, [facility] 10/29-, [place] 11/20-04/2014, Chest Pain- [facility] ER 10/28/2016, COPD, Asthma- [facility] ER 12/2017, COPD, Asthma- [facility] 04/2018, Stent Placement - [facility]/BK 05/2018, stent placement- [facility] 03/20/19, Stent Placement (L) foot- [facility] 08/16-08/18/2019, PAD- [facility] 08/21-09/2020, Vascular Procedure-Leg Discomfort After Surgery- [facility] 03/13/2021. * Family History: F ather: , coronary artery disease- [place]. M other: , coronary artery disease, diabetes, [...] orally 2 times a day , Taking metFORMIN HCl ER 500 MG Tablet Extended Release 24 Hour TAKE 1 TABLET BY MOUTH TWO TIMES A DAY , Discontinued Benzonatate 200 MG Capsule 1 capsule as needed Orally Three times a day , Discontinued Promethazine-DM 6.25-15 MG/5ML Syrup 5 ml as needed Orally every 6 hrs , Medication List reviewed and reconciled with the patient * Allergies: P enicillin, HYDROcodone-Acetaminophen: vomiting - Side Effects, Codeine: rash - Side Effects, Morphine: Side Effects. Objective: * Vitals: W t: 105, Temp: 98.0, BP: 110/68, HR: 64, O2 Sat: 93% on RA, Nurse: jodie, Ht: 58 , BMI:21.94. * Examination: G eneral Examination: General Appearance: N AD. H eart: R SR. L ungs:?clear to auscultation. E xtremities: no leg edema. Assessment: * Assessment: 1. P eripheral vascular disease - I73.9 (Primary) 2 . B ME 21.0-21.9, adult - Z68.21 Plan: * Treatment: 2. O thers Notes: Discharge summary with available lab/diagnostic imaging results obtained and reviewed. Discharge medication list reconciled. Appropriate counseling provided. Moderate Complexity * Procedure Codes: 9 9495 [facility]ANS [facility]ARE [facility] 14 DAY DISCH, 1111F DSC MED/CURENT MED MERGE, G2211 Complex e/m visit add on, G8752 MOST RECENT SYSTOLIC BP < 140MM HG, G8754 MOST RECENT DIASTOLIC BP < 90MM HG * Follow Up: a s scheduled,and prn * Images: Billing Information: * Visit Code: 42920 Office Visit, Est Pt., Level 3. * Procedure Codes: 17208 TRANS [facility]ARE [facility] 14 DAY DISCH. 1111F DSCHR MED/CURENT MED MERGE. G2211 Complex e/m visit add on. G8752 MOST RECENT SYSTOLIC BP < 140MM HG. G8754 MOST RECENT DIASTOLIC BP < 90MM HG. * Electronic signature of Carmita Montanez MD on 09/01/2025 at 04:22 PM EST Sign off status: Pending * Provider: Jazmín Montanez M.D. Date: 0 02/15/2025 Generated for Naderi sidney/Nena/eTransmitting on: 11/01/2024 04:22 PM EST History and Physical Notes * HPI (History of Present Illness) Category Sub-Category Detail Notes Category Not es HPI Patient is here today for a [facility] of Care Visit after having a stent placed in her right popliteal artery. Discharge from the following Facility: [facility] ,Discharge date: Tuesday02/01/2025 ,Date of phone contact following discharge: 2 messages left 02/05/2025, spoke with patient son on 02/06/2025 Examination Category Sub-Category Detail Notes Category Not es General Examination Heart: RSR Lungs: clear to auscultatio n Extremities: no leg edema General Appearance: NAD
--- OUTSIDE RECORDS SUMMARY | 2025-03-22 06:15 | XMS_ITS ---
Author Organization [facility] Address [address] [place] [phone] Care Team Providers Care Financial Planner Name Role Phone Buck Valencia Primary Care Provider Alexis Montanez [phone] Allergies Allergen (clinical drug ingredient) Drug/Non Drug Allergy documented on EMR Reaction Allergy Type Onset Date Status acetaminophen / hydrocodone HYDROcodone-Acetamino phen vomiting Drug Allergy Active codeine Codeine rash Drug Allergy Active morphine Morphine Unknown Drug Allergy Active Penicillin Unknown Drug Allergy Active REASON FOR VISIT 3 months check up Encounters Encounter Location Date Provider Diagnosis [facility] [address] [place] [phone] 03/22/2025 Alexis Montanez Plan Of Treatment Next Appt Details Provider Name:Alexis hickey, 09/03/2025 11:45:00 AM, [address] [facility] [address], [place], [phone], Provider Name:Alexis hickey, 09/04/2025 10:15:00 AM, [facility] [address], [address], [place], [phone], Progress Notes * LASHAWN ZAMORA ADOB: [birth year] (85 yo F)Acc No.[id number]:03/22/2025 Progress Notes Patient: Barrie LASHAWN ELIZABETH Provider: Jazmín Montanez M.D. :1940 A ge:84 Y S ex:Female Date:03/22/2025 Address:[address] [place] [address] [address] [place], [id number] Pcp:Buck Valencia Subjective: * Chief Complaints: * 1 . 3 months check up. * HPI: E ndocrinology: 84 year old female presents with c/o Recent Blood Sugars P t is here today for a 3 month check up. Pt sts her blood sugars are better controlled with the dexcom. G astroenterology: c/o appetite P t sts her appetite has improved as well.? * ROS: D ERMATOLOGY: no R marcy. 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 Chadwick , Stent placed in right popliteal artery at [facility] 01/2025. * Hospitalization/Major Diagno stic Procedure: V omiting- [facility] ER 12/2012, [facility] 10/29-, [place] 11/20-04/2014, Chest Pain- [facility] ER 10/28/2016, COPD, Asthma- [facility] ER 12/2017, COPD, Asthma- [facility] 04/2018, Stent Placement - [facility]/BK 05/2018, stent placement- [facility] 03/20/19, Stent Placement (L) foot- [facility] 08/16-08/18/2019, PAD- [facility] 08/21-09/2020, Vascular Procedure-Leg Discomfort After Surgery- [facility] 03/13/2021. * Family History: F ather: , coronary artery disease- [place]. M other: , coronary artery disease, diabetes, vascular disease. S iblings: diabetes, coronary artery disease. 1 brother(s) , 3 sister(s) . 1 son(s) , 3 daughter(s) . . * Social History: C URRENT TOBACCO USE S moking Status: Patient does NOT smoke. C affeine: no. Marital Status: Single, . Past smoking status: no, Smoking status: Does not smoke. Alcohol: no. * Allergies: P enicillin, HYDROcodone-Acetaminophen: vomiting - Side Effects, Codeine: rash - Side Effects, Morphine: Side Effects. Objective: * Vitals: Assessment: Plan: * Treatment: * Images: Billing Information: * Visit Code: * Procedure Codes: * Electronic signature of Carmita Montanez MD on 09/01/2025 at 04:23 PM EST Sign off status: Pending * Provider: Jazmín Montanez M.D. Date: 0 03/22/2025 Generated for Oh little/Nena/Neenaitting on: 11/01/2024 04:23 PM EST History and Physical Notes * HPI (History of Present Illness) Category Sub-Category Detail Notes Category Not es Endocrinology Recent Blood Sugars Pt is here t [place] for a 3 month check up. Pt sts her blood sugars are better controlled with the dexcom Gastroenterology appetite Pt sts her appe tite has improved as well
--- OUTSIDE RECORDS SUMMARY | 2025-05-01 05:45 | XMS_ITS ---
Author Organization [facility] Address [address] [facility] [address] [place] [id number] Care Team Providers Care Student Officer Name Role Phone Buck Valencia Primary Care Provider [phone] Tom Montanezian Unavailable [phone] Allergies Allergen (clinical drug ingredient) Drug/Non Drug Allergy documented on EMR Reaction Allergy Type Onset Date Status acetaminophen / hydrocodone HYDROcodone-Acetamino phen vomiting Drug Allergy Active codeine Codeine rash Drug Allergy Active morphine Morphine Unknown Drug Allergy Active Penicillin Unknown Drug Allergy Active Results Component Value Reference Range Notes Glucose (In-House) Reviewed date:05/01/2025 11:46:25 AM Interpretation: Performing Lab: Notes/Report: blood glucose 149 74 - 106 mg/dL Glycohemoglobin A1c (in hous e) Reviewed date:05/01/2025 11:46:56 AM Interpretation: Performing Lab: Notes/Report: glycohemoglobin 6.6% 5 - 6.5 % P-Basic Metabolic Panel (BMP ) Reviewed date:05/02/2025 09:01:57 AM Interpretation:Glu 104, BUN 24, Creat 1.05, eGFR 52 Performing Lab: Notes/Report: Test performed by [facility] , [address], [place] [address] Mehdi Rodríguez MD, Ship Design Teacher CLIA: [id number] Sodium 140 135-145 mmol/L Potassium 5.1 3.5-5.3 mmol/L Chloride 100 97-108 mmol/L CO2 29 20-32 mmol/L Glucose 104 65-99 mg/dL BUN 24 8-23 mg/dL Creatinine 1.05 0.50-1.00 mg/dL Calcium 9.7 8.6-10.4 mg/dL eGFR by Creatinine 52 >59 mL/min/1.73m2 P-Vitamin D 25-Hydroxy Reviewed date:05/02/2025 09:01:58 AM Interpretation:49.2 Performing Lab: Notes/Report: Test performed by [facility] [address] [place] [address] , [address], [place] [address] Mehdi Rodríguez MD, Ship Design Teacher CLIA: [id number] Vitamin D 25-Hydroxy 49.2 30.0-100.0 ng/mL Interpretation of Vitamin D 25 [place]: < 20 ng/mL - Deficiency 20 - 29 ng/mL - Insufficiency 30 - 100 ng/mL - Sufficiency > 100 ng/mL - Super-therapeutic- toxicity may occur above this level. Clinical correlation required. REASON FOR VISIT sugar Medications Medication SIG (Take, Route, Frequency, Duration) Notes Start Date End Date Status Digoxin 125 MCG 1 tab(s) orally once a day Active Aspirin 81 MG 1 tab(s) orally once a day Active Clopidogrel Bisulfate 75 MG 1 tab(s) ora lly once a day Active Losartan Potassium 100 MG 1 tab(s) orall y once a day Active Carvedilol 3.125 MG 1 tablet with food O rally Twice a day; Duration: 30 day(s) Active hydrOXYzine HCl 25 MG 1 tablet as needed Orally Two times a day 02/18/2025 Active Pravastatin Sodium 40 MG TAKE 1 TABLET B Y MOUTH AT BEDTIME; Duration: 30 Active Gabapentin 300 MG 1 cap(s) orally 2 ti mes a day; Duration: 30 days 03/25/2025 Active Symbicort 160-4.5 MCG/ACT Inhale 2 puffs by mouth twice daily; Duration: 30 Active Eliquis 2.5 MG TAKE 1 TABLET BY MARTHA TH TWICE DAILY; Duration: 30 Active Ventolin HFA 108 (90 Base) MCG/ACT 1 puff Inhalation every 4 hrs, prn Active Ipratropium-Albuterol 0.5-2.5 (3) MG/3ML INHALE THE CONTENTS OF 1 VIAL BY NEBULIZER 4 TIMES A DAY NEEDED; Duration: 15 Active metFORMIN HCl ER 500 MG TAKE 1 TABLET BY MOUTH TWO TIMES A DAY; Duration: 90 Active Vitamin D3 125 MCG (5000 UT) 1 cap(s) orally once a day; Duration: 30 day(s) 07/14/2022 Active Vital Signs Weight 102 lbs 05/01/2025 Blood pressure systolic 114 mm Hg 05/01/20 25 Blood pressure diastolic 60 mm Hg 025 Heart Rate 72 /min 05/01/2025 Height 58 in 05/01/2025 BMI 21.32 kg/m2 05/01/2025 Encounters Encounter Location Date Provider Diagnosis [facility] [address] [facility] 36 [facility] [address] [place] [id number] 05/01/2025 Alexis Montanez Essential hypertensi on I10 ; Type 2 diabetes mellitus with diabetic chronic kidney disease E11.22 ; Vitamin D deficiency E55.9 ; Dizziness R42 and BMI 21.0-21.9, adult Z68.21 Assessments Encounter Date Diagnosis (ICD Code) Assessment Notes Treatment Notes Treatment Clinical Notes Section Notes 05/01/2025 Essential hypertension (ICD-10 - I10) 05/01/2025 Type 2 diabetes mellitus with diabetic chronic kidney disease (ICD-10 - E11.22) 05/01/2025 Vitamin D deficiency (ICD-10 - E55.9) 05/01/2025 Dizziness (ICD-10 - R42) Plan to stop Lasix and monitor for changes in dizziness 05/01/2025 BMI 21.0-21.9, adult (ICD-10 - Z68.21) Plan Of Treatment Medication Medication Name Sig Start Date Stop Date Notes Furosemide 40 MG 1/2-1 tab(s) orally alt 20 and 40 mg Treatment Notes Assessment Notes Dizziness Plan to stop Lasix a nd monitor for changes in dizziness Next Appt Details Follow Up: via phone to repo rt test results,4 Months, Reason: Provider Name:Alexis hickey, 09/03/2025 11:45:00 AM, [address] [facility] 36 [facility], [address], [place], [phone], Provider Name:Alexis hickey, 09/04/2025 10:15:00 AM, [address] [facility] 36 [facility], [address], [place], [phone], Progress Notes * LASHAWN ZAMORA ADOB: [birth year] (85 yo F)Acc No.[id number]:05/01/2025 Progress Notes Patient: LASHAWN ALAN Provider: Jazmín Montanez M.D. :1940 A ge:85 Y S ex:Female Date:05/01/2025 Address:[address] [place] [address] [place], [id number] Pcp:Buck Valencia Subjective: * Chief Complaints: * 1 . Sugar. * HPI: E NT/respiratory: 85 year old female presents with c/o ringing in ear P t complains of ringing in ears for years . Pt states she has had some dizziness, worse when she bends over, a nd feels off balance when walking. E ndocrinology: c/o Recent Blood Sugars P t's daughter states that pt's blood sugar has been all over the place for a while. Pt's blood sugar has been as high as 250 and as low 117. Pt's daughter would like to discuss getting pt on a Dexcom. * ROS: D ERMATOLOGY: no R marcy. [...] Stent placed in right popliteal artery at [facility] 01/2025. * Hospitalization/Major Diagno stic Procedure: V omiting- [facility] ER 12/2012, [facility] 10/[facility]-, [place] 11/20-04/2014, Chest Pain- [facility] ER 10/28/2016, COPD, Asthma- [facility] ER 12/2017, COPD, Asthma- [facility] 04/2018, Stent Placement - [facility] 05/2018, stent placement- [facility] 03/20/19, Stent Placement (L) foot- [facility] 08/16-08/18/2019, PAD- [facility] 08/21-09/2020, Vascular Procedure-Leg Discomfort After Surgery- [facility] 03/13/2021. * Family History: F ather: , coronary artery disease- [place]. M other: , coronary artery disease, diabetes, vascular disease. S iblings: diabetes, coronary artery disease. 1 brother(s) , 3 sister(s) . 1 son(s) , 3 daughter(s) . . * Social History: C URRENT TOBACCO USE: No . C affeine: no. Marital Status: Single, . [...] Inhalation every 4 hrs, prn , Taking Ipratropium-Albuterol 0.5-2.5 (3) MG/3ML Solution INHALE THE CONTENTS OF 1 VIAL BY NEBULIZER 4 TIMES A DAY NEEDED , Taking metFORMIN HCl ER 500 MG Tablet Extended Release 24 Hour TAKE 1 TABLET BY MOUTH TWO TIMES A DAY , Taking hydrOXYzine HCl 25 MG Tablet 1 tablet as needed Orally Two times a day , Taking Pravastatin Sodium 40 MG Tablet TAKE 1 TABLET BY MOUTH AT BEDTIME , Taking Gabapentin 300 MG Capsule 1 cap(s) orally 2 times a day , Taking Symbicort 160-4.5 MCG/ACT Aerosol Inhale 2 puffs by mouth twice daily , Medication List reviewed and reconciled with the patient * Allergies: P enicillin, HYDROcodone-Acetaminophen: vomiting - Side Effects, Codeine: rash - Side Effects, Morphine: Side Effects. Objective: * Vitals: W t: 102, Temp: 98.1, BP: 114/60, HR: 72, O2 Sat: 94% on RA, Nurse: jodie, Ht: 58 , BMI:21.32. * Examination: G eneral Examination: General Appearance: N AD. H EENT: s clera and conjunctiva clear, PERRLA, TM's normal, translucent. H eart: R SR. L ungs: c lear to auscultation. E xtremities: n o leg edema. Assessment: * Assessment: 1. E ssential hypertension - I10 (Primary) 2 . T ype 2 diabetes mellitus with diabetic chronic kidney disease - E11.22 3 . V itamin D deficiency - E55.9? 4. D izziness - R42 5 . B CO 21.0-21.9, adult - Z68.21 ? Plan: * Treatment: Value Reference Range B UN 24 H 8-23 - mg/dL * C alcium 9.7 8.6-10.4 - mg/dL * C hloride 100 97-108 - mmol/L * C O2 29 20-32 - mmol/L * C reatinine 1.05 H 0.50-1.00 - mg/dL * G lucose 104 H 65-99 - mg/dL * P otassium 5.1 3.5-5.3 - mmol/L * S odium 140 135-145 - mmol/L * e GFR by Creatinine 52 L >59 - mL/min/1.73m2 * Leslye Montes De Oca 05/02/2025 09: 01:49 AM EDT > See phone encounter 2.?Type 2 diabetes mellitus with diabetic chronic kidney disease?LAB: Glucose (In-House) (Collection Date & Time - 05/01/2025)* Value Reference Range b lood glucose 149 74 - 106 mg/dL * Laura Lopez 05/01/2025 11:46: 11 AM EDT > Provider reviewed results while patient in office. ?LAB: Glycohemoglobin A1c (in house) (Collection Date & Time - 05/01/2025)* Value Reference Range g lycohemoglobin 6.6% 5 - 6.5 % * Laura Lopez 05/01/2025 11:46: 50 AM EDT > Provider reviewed results while patient in office. 3.?Vitamin D deficiency?LAB: P-Vitamin D 25-Hydroxy (Collection Date & Time - 05/01/2025 10:08 AM)? 49.2* Value Reference Range V itamin D 25-Hydroxy 49.2 30.0-100.0 - ng/mL * Leslye Montes De Oca 05/02/2025 09: 01:49 AM EDT > See phone encounter 4.?Dizziness? Notes: Plan to stop Lasix and monitor for changes in dizziness?? * Procedure Codes: G 2211 Complex e/[place], [address] GLUCOSE TEST, 23566 GLYCATED HEMOGLOBIN TEST, Modifiers: QW , 3044F HG A1C LEVEL LT 7.0%, 1036F TOBACCO NON-USER, G8420 BMI<30 AND >=22 CALC & DOCU, G8950 PREHTN/HTN BP DOC INDCD F/U DOC, G8752 MOST RECENT SYSTOLIC BP < 140MM HG, G8754 MOST RECENT DIASTOLIC BP < 90MM HG * Follow Up: v ia phone to report test results,4 Months * Images: Billing Information: * Visit Code: 79451 Office Visit, Est Pt., Level 4. * Procedure Codes: G2211 Complex e/[place]. [address] GLUCOSE TEST. 20385 GLYCATED HEMOGLOBIN TEST. Modifiers: QW 3044F HG A1C LEVEL LT 7.0%. 1036F TOBACCO NON-USER. G8420 BMI<30 AND >=22 CALC & DOCU. G8950 PREHTN/HTN BP DOC INDCD F/U DOC. G8752 MOST RECENT SYSTOLIC BP < 140MM HG. G8754 MOST RECENT DIASTOLIC BP < 90MM HG. * Electronic signature of Carmita Montanez MD on 09/01/2025 at 04:23 PM EST Sign off status: Pending * Provider: Jazmín Montanez M.D. Date: 0 05/01/2025 Generated for Oh little/Nena/eTransmitting on: 1 11/01/2024 04:23 PM EST History and Physical Notes * HPI (History of Present Illness) Category Sub-Category Detail Notes Category Not es ENT/respiratory ringing in ear Pt complains of ringing in ears for years . Pt states she has had some dizziness, worse when she bends over, and feels off balance when walking Endocrinology Recent Blood Sugars Pt's catrachito r states that pt's blood sugar has been all over the place for a while. Pt's blood sugar has been as high as 250 and as low 117. Pt's daughter would like to discuss getting pt on a Dexcom Examination Category Sub-Category Detail Notes Category Not es General Examination HEENT: sclera and c onjunctiva clear, PERRLA, TM's normal, translucent Heart: RSR Lungs: clear to auscultatio n Extremities: no leg edema General Appearance: NAD
--- OUTSIDE RECORDS SUMMARY | 2025-07-03 05:30 | XMS_ITS ---
Author Organization [facility] Address [address] [facility] [address] [place] [id number] Care Team Providers Care Grounds Crew Supervisor Name Role Phone Buck Valencia Primary Care Provider Alexis Montanez [phone] Allergies Allergen (clinical drug ingredient) Drug/Non Drug Allergy documented on EMR Reaction Allergy Type Onset Date Status acetaminophen / hydrocodone HYDROcodone-Acetamino phen vomiting Drug Allergy Active codeine Codeine rash Drug Allergy Active morphine Morphine Unknown Drug Allergy Active Penicillin Unknown Drug Allergy Active REASON FOR VISIT F/U from [facility] Encounters Encounter Location Date Provider Diagnosis [facility] [address] [place] [id number] 07/03/2025 Alexis Montanez Plan Of Treatment Next Appt Details Provider Name:Alexis hickey, 09/03/2025 11:45:00 AM, [address] [facility] [address], [place], [id number], Provider Name:Alexis hickey, 09/04/2025 10:15:00 AM, [address] [facility] [address] [facility] [address], [place], [id number], Progress Notes * LASHAWN SANTOS ADOB: [birth year] (85 yo F)Acc No.[id number]:07/03/2025 Patient: Barrie LASHAWN ELIZABETH Provider: Jazmín Montanez M.D. :1940 A ge:85 Y S ex:Female Date:07/03/2025 Address:[address] [place] [address] , [place], [id number] Pcp:Buck Valencia Subjective: * Chief Complaints: * 1 . F/U from [facility]. * Medical History: T ype 2 Diabetes [...] Stent placed in right popliteal artery at [facility] 01/2025. * Hospitalization/Major Diagno stic Procedure: V omiting- [facility] ER 12/2012, [facility] 10/29-, [facility] 11/20-04/2014, Chest Pain- [facility] ER 10/28/2016, COPD, Asthma- [facility] ER 12/2017, COPD, Asthma- [facility] 04/2018, Stent Placement - [facility] 05/2018, stent placement- [facility] 03/20/19, Stent Placement (L) foot- [facility] 08/16-08/18/2019, PAD- [facility] 08/21-09/2020, Vascular Procedure-Leg Discomfort After Surgery- [facility] 03/13/2021. * Family History: F ather: , coronary artery disease- [place]. M other: , coronary artery disease, diabetes, [...] of Carmita Montanez MD on 09/01/2025 at 04:24 PM EST Sign off status: Pending * Provider: Jazmín Montanez M.D. Date: 0 07/03/2025 Generated for Oh little/Nena/Andrzej on: 11/01/2024 04:24 PM EST
--- OUTSIDE RECORDS SUMMARY | 2025-07-05 06:45 | XMS_ITS ---
[facility] Organization [facility] Address [address] [facility] [address] [place] [phone] Care Team Providers Care Canvas Cutter Hand Name Role Phone Buck Valencia Primary Care Provider Alexis Montanez Unavailable [phone] Allergies Allergen (clinical drug ingredient) Drug/Non Drug Allergy documented on EMR Reaction Allergy Type Onset Date Status acetaminophen / hydrocodone HYDROcodone-Acetamino phen vomiting Drug Allergy Active codeine Codeine rash Drug Allergy Active morphine Morphine Unknown Drug Allergy Active Penicillin Unknown Drug Allergy Active REASON FOR VISIT [facility] F/u, leg pain Medications Medication SIG (Take, Route, Frequency, Duration) Notes Start Date End Date Status Ipratropium-Albuterol 0.5-2.5 (3) MG/3ML INHALE THE CONTENTS OF 1 VIAL BY NEBULIZER 4 TIMES A DAY NEEDED; Duration: 15 Active metFORMIN HCl ER 500 MG TAKE 1 TABLET BY MOUTH TWO TIMES A DAY; Duration: 90 Active hydrOXYzine HCl 25 MG 1 tablet as needed Orally Two times a day 02/18/2025 Active Pravastatin Sodium 40 MG 1 tablet Orally Once a day; Duration: 30 days Active Symbicort 160-4.5 MCG/ACT Inhale 2 puffs by mouth twice daily; Duration: 30 Active Clopidogrel Bisulfate 75 MG 1 tab(s) ora lly once a day Active Eliquis 2.5 MG TAKE 1 TABLET BY MARTHA TH TWICE DAILY; Duration: 30 Active Ventolin HFA 108 (90 Base) MCG/ACT 1 puff Inhalation every 4 hrs, prn Active Losartan Potassium 100 MG 1 tab(s) orall y once a day Active Vitamin D3 125 MCG (5000 UT) 1 cap(s) orally once a day; Duration: 30 day(s) 07/14/2022 Active Gabapentin 300 MG 2 cap(s) orally 2 ti mes a day 03/25/2025 Active Aspirin 81 MG 1 tab(s) orally once a day Active Carvedilol 3.125 MG 1 tablet with food O rally Twice a day; Duration: 30 day(s) Active Digoxin 125 MCG 1 tab(s) orally once a day Active Vital Signs Weight 104 lbs 07/05/2025 Blood pressure systolic 114 mm Hg 07/05/20 25 Blood pressure diastolic 64 mm Hg 025 Heart Rate 70 /min 07/05/2025 Height 58 in 07/05/2025 BMI 21.73 kg/m2 07/05/2025 Encounters Encounter Location Date Provider Diagnosis [facility] [address] [facility] [address] [place] [id number] 07/05/2025 Alexis Tarik Open wound of toe, initial encounter S91.109A ; Pain of left calf M79.662 ; PAD (peripheral artery disease) I73.9 and BMI 21.0-21.9, adult Z68.21 Assessments Encounter Date Diagnosis (ICD Code) Assessment Notes Treatment Notes Treatment Clinical Notes Section Notes 07/05/2025 Open wound of toe, initial encounter (ICD-10 - S91.109A) Patient declines evaluation at wound care. She wants to use topical Medihoney gel to treat wound, plan to evaluate again in office in a few weeks. Call with any new symptoms 07/05/2025 Pain of left calf (ICD-10 - M79.662) 07/05/2025 PAD (peripheral artery disease) (ICD-10 - I73.9) 07/05/2025 BMI 21.0-21.9, adult (ICD-10 - Z68.21) 07/05/2025 Other Discharge summary with available lab/diagnostic imaging results obtained and reviewed. Discharge medication list reconciled. Appropriate counseling provided. Moderate Complexity Plan Of Treatment Medication Medication Name Sig Start Date Stop Date Notes Gabapentin 300 MG 2 cap(s) orally 2 times a day 03/25/2025 Treatment Notes Assessment Notes Open wound of toe, initial encounter Pat ient declines evaluation at wound care. She wants to use topical Medihoney gel to treat wound, plan to evaluate again in office in a few weeks. Call with any new symptoms Other Discharge summary wi th available lab/diagnostic imaging results obtained and reviewed. Discharge medication list reconciled. Appropriate counseling provided. Moderate Complexity Next Appt Details Follow Up: 2 Weeks, Reason: Provider Name:Alexis Nunez ruperto, 09/03/2025 11:45:00 AM, [address], [address], [place], [phone], Provider Name:Alexis Nunez ruperto, 09/04/2025 10:15:00 AM, [address], [address], [place], [place], [phone], Progress Notes * LASHAWN ZAMORA ADOB: [birth year] (85 yo F)Acc No.[id number]:07/05/2025 Progress Notes Patient: LASHAWN ALAN Provider: Jazmín Montanez M.D. :1940 A ge:85 Y S ex:Female Date:07/05/2025 Address:[address] [place] [address] , [place] [facility], [id number] Pcp:Buck Valencia Subjective: * Chief Complaints: * 1 . [facility] F/u, leg pain. * HPI: H PI: Patient is here today for a Transition of Care Visit. Discharge from the following Facility: [facility] following initial admission monitoring patient post peripheral Angioplasty, d ischarging on 06/26/25. Patient was then subsequently admitted 06/27/2025 with leg pain and discharged on 06/28/2025 after suspected limb ischemia ruled out during cath with Dr. Chadwick. Discharge date: ,Date of phone contact following discharge: 07/01/2025 and 07/02/2025. K nee/Raygoza: c/o leg pain P t complains of lt lower leg pain for a couple weeks. Pt had angioplasty 06/25 and has had the pain since then. Pt states it feels like a shooting pain that starts in great toe and radiates to lt calf. * ROS: D ERMATOLOGY: wound o n the tip of the left great toe. Patient states she was trimming her toenails last week with household scissors and mistakenly clipped off a piece of skin below her toenail. * Medical History: T ype 2 Diabetes [...] Stent placed in right popliteal artery at [facility] 01/2025. * Hospitalization/Major Diagno stic Procedure: V omiting- [facility] ER 12/2012, [facility] 10/29-, [place] 11/20-04/2014, Chest Pain- [facility] ER 10/28/2016, COPD, Asthma- [facility] ER 12/2017, COPD, Asthma- [facility] 04/2018, Stent Placement - [facility] 05/2018, stent placement- [facility] 03/20/19, Stent Placement (L) foot- [facility] 08/16-08/18/2019, PAD- [facility] 08/21-09/2020, Vascular Procedure-Leg Discomfort After Surgery- [facility] 03/13/2021. * Family History: F ather: , coronary artery disease- [place]. M other: , coronary artery disease, diabetes, [...] tab(s) orally once a day , Taking Vitamin D3 125 MCG (5000 [...] Orally Two times a day , Taking Gabapentin 300 MG Capsule 1 cap(s) orally 2 times a day , Taking Symbicort 160-4.5 MCG/ACT Aerosol Inhale 2 puffs by mouth twice daily , Taking Pravastatin Sodium 40 MG Tablet 1 tablet Orally Once a day , Medication List reviewed and reconciled with the patient * Allergies: P enicillin, HYDROcodone-Acetaminophen: vomiting - Side Effects, Codeine: rash - Side Effects, Morphine: Side Effects. Objective: * Vitals: W t: 104, Temp: 97.9, BP: 114/64, HR: 70, O2 Sat: 94% on RA, Nurse: jodie, Ht: 58, BMI:21.73. * Examination: G eneral Examination: General Appearance: N AD, sitting in a wheelchair. S kin: d ark discoloration over the tip of the left great toe measures about 1 cm in diameter with a small central non draining wound. Assessment: * Assessment: 1. O pen wound of toe, initial encounter - S91.109A (Primary) 2 . P ain of left calf - M79.662 3 . P AD (peripheral artery disease) - I73.9 ?4. B [place] 21.0-21.9, adult - Z68.21 Plan: * Treatment: 2. P ain of left calf Increase Gabapentin Capsule, 300 MG, 2 cap(s), orally, 2 times a day. 3. O thers Notes: Discharge summary with available lab/diagnostic imaging results obtained and reviewed. Discharge medication list reconciled. Appropriate counseling provided. Moderate Complexity * Procedure Codes: G 2211 Complex e/[place], [address] TRANS CARE MGMT 14 DAY DISCH, 1111F DSCHR MED/CURENT MED MERGE, 1036F TOBACCO NON-USER, G8420 BMI<30 AND >=22 CALC & DOCU, G8783 BP SCR PRFRM RCMDD DEFIND SCR INTVL, G8752 MOST RECENT SYSTOLIC BP < 140MM HG, G8754 MOST RECENT DIASTOLIC BP < 90MM HG, 3074F SYST BP LT 130 MM HG, 3078F DIAST BP < 80 MM HG * Follow Up: 2 Weeks * Images: Billing Information: * Visit Code: 62639 Office Visit, Est Pt., Level 3. * Procedure Codes: G2211 Complex e/[place]. [address] TRANS CARE MGMT 14 DAY DISCH. 1111F DSCHR MED/CURENT MED MERGE. 1036F TOBACCO NON-USER. G8420 BMI<30 AND >=22 CALC & DOCU. G8783 BP SCR PRFRM RCMDD DEFIND SCR INTVL. G8752 MOST RECENT SYSTOLIC BP < 140MM HG. G8754 MOST RECENT DIASTOLIC BP < 90MM HG. 3074F SYST BP LT 130 MM HG. 3078F DIAST BP < 80 MM HG. * Electronic signature of Carmita Montanez MD on 09/01/2025 at 04:20 PM EST Sign off status: Pending * Provider: Jazmín Montanez M.D. Date: 0 07/05/2025 Generated for Oh little/Nena/Neenaitting on: 1 11/01/2024 04:20 PM EST History and Physical Notes * HPI (History of Present Illness) Category Sub-Category Detail Notes Category Not es Knee/Raygoza leg pain Pt complains of lt lower leg pain for a couple weeks. Pt had angioplasty 06/25 and has had the pain since then. Pt states it feels like a shooting pain that starts in great toe and radiates to lt calf HPI Patient is here today for a Clark sition of Care Visit. Discharge from the following Facility: [facility] following initial admission monitoring patient post peripheral Angioplasty, discharging on 06/26/25. Patient was then subsequently admitted 06/27/2025 with leg pain and discharged on 06/28/2025 after suspected limb ischemia ruled out during cath with Dr. Chadwick. Discharge date: 06/28/2025,Date of phone contact following discharge: 07/01/2025 and 07/02/2025 Examination Category Sub-Category Detail Notes Category Not es General Examination General Appearance: NAD, sitting i n a wheelchair Skin: dark discoloration o danielito the tip of the left great toe measures about 1 cm in diameter with a small central non draining wound
--- OUTSIDE RECORDS SUMMARY | 2025-07-19 05:30 | XMS_ITS ---
Author Organization [facility] Address [address] [facility] [address] [place] [phone] Care Team Providers Care Tableman Name Role Phone Buck Valencia Primary Care Provider [phone] Alexis Montanez [phone] Allergies Allergen (clinical drug ingredient) Drug/Non Drug Allergy documented on EMR Reaction Allergy Type Onset Date Status acetaminophen / hydrocodone HYDROcodone-Acetamino phen vomiting Drug Allergy Active codeine Codeine rash Drug Allergy Active morphine Morphine Unknown Drug Allergy Active Penicillin Unknown Drug Allergy Active REASON FOR VISIT 2 weeks Encounters Encounter Location Date Provider Diagnosis [facility] [address] [place] [id number] 07/19/2025 Alexis Montanez Plan Of Treatment Next Appt Details Provider Name:Alexis hickey, 09/03/2025 11:45:00 AM, [address] [facility] [address] [facility], [address], [place], [phone], Provider Name:Alexis hickey, 09/04/2025 10:15:00 AM, [address] [facility] [address] [facility], [address], [place], [phone], Progress Notes * LASHAWN ZAMORA ADOB: [birth year] (85 yo F)Acc No.[id number]:07/19/2025 Progress Notes Patient: Barrie LASHAWN ELIZABETH Provider: Jazmín Montanez M.D. :1940 A ge:85 Y S ex:Female Date:07/19/2025 Address:[address] [place] [address] [place], [id number] Pcp:Buck Valencia Subjective: * Chief Complaints: * 1 . 2 weeks. * Medical History: T ype 2 Diabetes [...] Stent placed in right popliteal artery at [facility] 01/2025. * Hospitalization/Major Diagno stic Procedure: V omiting- [facility] ER 12/2012, [facility] 10/29-, [place] 11/20-04/2014, Chest Pain- [facility] ER 10/28/2016, COPD, Asthma- [facility] ER 12/2017, COPD, Asthma- [facility] 04/2018, Stent Placement - [facility] 05/2018, stent placement- [facility] 03/20/19, Stent Placement (L) foot- [facility] 08/16-08/18/2019, PAD- [facility] 08/21-09/2020, Vascular Procedure-Leg Discomfort After Surgery- [facility] 03/13/2021. * Family History: F [...] Pending * Provider: Jazmín Montanez M.D. Date: Generated for Oh little/Nena/Andrzej on: 11/01/2024 04:22 PM EST
--- OUTSIDE RECORDS SUMMARY | 2025-07-23 16:27 | XMS_ITS | Encounter Summary ---
Author Organization [facility] Address [address] [place] [address] Care Team Providers Care Gerentological Physiotherapist Name Role Phone Alexis Montanez MD Primary Care Provider [phone] Reason for Visit * Reason Comments Wound Check * Auth/Cert Specialty Diagnoses / Procedures Referred By Gumaro ferrera Referred To Contact Diagnoses PAD (peripheral artery disease) Referral ID Status Reason Start Date Expiration Date Visits Re quested Visits Authorized [id number] 1 1 Encounter Details Date Type Department Care Team (Late st Contact Info) Description 07/23/2025 5:27 PM EDT - 07/25/2025 6:31 PM EDT Hospital Encounter [facility] [place] [id number] Vipul Barney MD [address] [facility] [place] [address] Amada Ibrahim MD [address] [facility] [address] [place], [place] [id number] Norma Whitney DO [address] [facility] [address] [place], [place] [id number] Cellulitis of left foot (Primary Dx); Ischemic ulcer, unspecified ulcer stage; Peripheral artery disease; Critical limb ischemia of left lower extremity Discharge Disposition: Home or Self Care Social History Tobacco Use Types Packs/Day Years Used Date Smoking Tobacco: Never Smokeless Tobacco: Never Tobacco Cessation:Counseling Given: Not Answered Alcohol Use Standard Drinks/Week Comments Never 0 (1 standard drink = 0.6 oz pur e alcohol) [facility] Utilities Answer Date Recorded In the past [...] care, and heating? Not very hard 07/24/2025 [facility] - Occupational Stress [...] GED or equivalent No 07/24/2025 Preferred Language Barbadian 07/24/2025 PHQ-2 Answer Date Recorded Patient Health [...] 6:15 PM EDT Neda Fitzpatrick RN * Pablo Suicide Severity Rating Scale (Screener/Recent Self-Report) Question [...] as of this encounter Discharge Summaries * oNrma Whitney, - 07/25/2025 12:00 PM EDT Images from the original note were not included. [facility] DISCHARGE SUMMARY Patient Name: Hattie [...] Per daughter, patient had been seen by optometry professor for multiple stent placements and most recently [...] 06/18 for left lower extremity occlusion by optometry professor per family report. - Heparin drip transitioned [...] MRSA Screen, PCR (Inpatient) - Swab, Nares [[id number]] (Abnormal) Collected: 07/24/252054 Lab Status: Final result Specimen: Swab from Nares Updated: 07/25/25808 MRSA PCR Positive Narrative: The negative predictive value of this diagnostic test is high and should only be used to consider de-escalating anti-MRSA therapy. A positive result may indicate colonization with MRSA and must be correlated clinically. Blood Culture - Blood, Arm, Left [[id number]] (Normal) Collected: 07/23/251744 Lab Status: Preliminary result Specimen: Blood from Arm, Left Updated: 07/24/251945 Blood Culture No growth at 24 hours Narrative: Less than seven (7) mL's of blood was collected. Insufficient quantity may yield false negative results. Blood Culture - Blood, Arm, Right [[id number]] (Normal) Collected: 07/23/251734 Lab Status: Preliminary result [...] MD 07/23/2025 11:58 PM EDT Workstation ID: [id number] CT Lower Extremity Left Without Contrast Result [...] DO 07/23/2025 8:07 PM EDT Workstation ID: [id number] XR Chest 1 View Result Date: 07/23/2025 [...] MD 07/23/2025 6:13 PM EDT Workstation ID: [id number] XR Foot 3+ View Left Result Date: [...] MD 07/23/2025 5:52 PM EDT Workstation ID: [id number] Results for orders placed during the hospital [...] to Resuscitate); Full Support Ordered at: 07/23/25 9199 Code Status (Patient has no pulse and is not breathing): CPR (Attempt to Resuscitate) Medical Interventions (Patient has pulse or is breathing): Full Support Level Of Support Discussed With: Patient No future appointments. Norma Whitney DO 07/25/25 Time Spent on Discharge: I spent 45 minutes on this discharge activity which included: tgbl-gz-[id number] with the patient, reviewing the data in the system, coordination of the care with the nursing staff as well as consultants, documentation, and entering orders. documented in this encounter Discharge Instructions * Attachments The following attachments cannot be sent through Care Everywhere. * Carotid Artery Disease Ocle-aw-Fcom (Barbadian) * Wound Care Adult (Barbadian) * Wound Infection Qrvd-yh-Qwnw (Barbadian) * Enoxaparin Injection (Barbadian) * Anticoagulant Injection Instructions Using a Prefilled Syringe (Barbadian) * Quetiapine Tablets (Barbadian) documented in this encounter Medications at Time [...] Take 1 tablet by mouth Every Night. gabapentin (NEURONTIN) 300 MG capsule Take 2 capsules by mouth 2 (Two) Times a Day With Meals. 5 QUEtiapine (SEROquel) 25 MG tablet Take 0.5 (one-half) tablet by mouth Every 12 (Twelve) Hours As Needed for agitation and/or sleep 30 tablet 07/25/2025 3:01 PM EDT 07/25/2025 5 apixaban (ELIQUIS) 2.5 MG tablet tablet Take [...] 12 mL 07/25/2025 3:01 PM EDT 07/25/2025 documented as of this encounter Progress Notes [...] resting in bed; family at bedside HEENT: [place] conjunctivae, MMM Lungs: Normal respiratory effort Ext: motor intact; left great toe dressing Neuro: Follows simple commands Psych: Apropriate mood ?baseline memory loss? Labs: Lab Results (last 24 hours) Procedure Component Value Units Date/Time POC Glucose Once [[id number]] (Normal) Collected: 07/25/25 1140 Specimen: Blood Updated: 07/25/25 1144 Glucose 87 mg/dL Comment: Serial Number: [id number]: [id number] MRSA Screen, PCR (Inpatient) - Swab, Nares [[id number]] (Abnormal) Collected: 07/24/252054 Specimen: Swab from Nares Updated: 07/25/25 0809 MRSA PCR Positive Narrative: The negative predictive value of this diagnostic test is high and should only be used to consider de-escalating anti-MRSA therapy. A positive result may indicate colonization with MRSA and must be correlated clinically. POC Glucose Q6H [[id number]] (Normal) Collected: 07/25/25 0606 Specimen: Blood Updated: 07/25/25 0610 Glucose 100 mg/dL Comment: Serial Number: [id number]: [id number] POC Glucose Q6H [[id number]] (Abnormal) Collected: 07/25/25 0009 Specimen: Blood Updated: 07/25/25 0011 Glucose 154 mg/dL Comment: Serial Number: [id number]: [id number] aPTT [[id number]] (Normal) Collected: 07/24/252235 Specimen: Blood Updated: 07/24/252317 PTT 60.8 seconds Narrative: PTT = The equivalent PTT values for the therapeutic range of heparin levels at 0.3 to 0.5 U/ml are 60 to 70 seconds. Urinalysis With Microscopic If Indicated (No Culture) - Urine, Clean Catch [[id number]] (Abnormal) Collected: 07/24/252202 Specimen: Urine, Clean Catch Updated: 07/24/252220 Color, UA Yellow Appearance, UA Cloudy pH, UA <=5.0 Specific [place], UA 1.022 Glucose, UA Negative Ketones, UA Negative Bilirubin, UA Negative Blood, UA Negative Protein, UA Negative Leuk Esterase, UA Small (1+) Nitrite, UA Negative Urobilinogen, UA 1.0 E.U./dL Urinalysis, Microscopic Only - Urine, Clean Catch [[id number]] (Abnormal) Collected: 07/24/252202 Specimen: Urine, Clean Catch Updated: 07/24/252220 RBC, UA None Seen /HPF WBC, UA 6-10 /HPF Bacteria, UA None Seen /HPF Squamous Epithelial Cells, UA 0-2 /HPF Hyaline Casts, UA None Seen /LPF Methodology Automated Microscopy Blood Culture - Blood, Arm, Left [[id number]] (Normal) Collected: 07/23/251744 Specimen: Blood from Arm, Left Updated: 07/24/251945 Blood Culture No growth at 24 hours Narrative: Less than seven (7) mL's of blood was collected. Insufficient quantity may yield false negative results. Blood Culture - Blood, Arm, Right [[id number]] (Normal) Collected: 07/23/251734 Specimen: Blood from Arm, Right Updated: 07/24/251945 Blood Culture No growth at 24 hours Narrative: Less than seven (7) mL's of blood was collected. Insufficient quantity may yield false negative results. POC Glucose Once [[id number]] (Normal) Collected: 07/24/251744 Specimen: Blood Updated: 10/08/25 1749 Glucose 119 mg/dL Comment: Serial Number: [id number]: [id number] Duplex Lower Extremity Art / Grafts - [...] MD 07/23/2025 11:58 PM EDT Workstation ID: [id number] Assessment - Left great toe ulcer with worsening acute pain - Chronic peripheral vascular disease with critical limb ischemia - recent angioplasty in [place] 06/18/25 - multiple stents from iliac down to popliteal and including ENGINE WIPER - Diabetes mellitus type 2 with neuropathy [...] Encounter: MST 2-3 or Nursing Admission Screen [facility] Clinical Nutrition Assessment Subjective Subjective Information 07/24/25 Patient screened per protocol for MST 3. Admitted d/t worsening left foot wound. Patient able to provide nutrition hx, dtr at bedside. Patient states she hasn't eaten much since half-way, likely 2/2 being less active. Dtr reports [...] from the original note were not included. [facility] Medicine [facility] PROGRESS NOTE Patient Name: Hattie [...] MD 07/23/2025 11:58 PM EDT Workstation ID: [id number] CT Lower Extremity Left Without Contrast Result [...] DO 07/23/2025 8:07 PM EDT Workstation ID: [id number] XR Chest 1 View Result Date: 07/23/2025 [...] MD 07/23/2025 6:13 PM EDT Workstation ID: [id number] XR Foot 3+ View Left Result Date: [...] MD 07/23/2025 5:52 PM EDT Workstation ID: [id number] I have personally reviewed the therapy plans: [...] 75 mL/hr, Last Rate: 75 mL/hr (07/24/25 6706) PRN Meds:. acetaminophen OR acetaminophen OR acetaminophen [...] Per daughter, patient had been seen by optometry professor for multiple stent placements and most recently [...] 06/18 for left lower extremity occlusion by optometry professor per family report. - Continue heparin drip [...] current dose: 409 mg/L*hr. Randy Mathis PharmD, [facility] 07/24/2025 03:48 EDT documented in this encounter H&P Notes * Amada Ibrahim MD - 07/23/2025 10:26 PM EDT Images from the original note were not included. [facility] Medicine [facility] HISTORY AND PHYSICAL Patient Name: [...] after their regular physician suggested seeing a pulmonary disease specialist. She was seen by a professor of business administration last Tuesday who treated the wound on her toe. Yesterday, Dr. Alvares (professor of business administration) evaluated the wound and referred her for further care because it appeared worse. The professor of business administration had removed the top layer of skin [...] to toe wound at home and by professor of business administration. - Metformin: Given half a tablet occasionally [...] DO 07/23/2025 8:07 PM EDT Workstation ID: [id number] XR Chest 1 View Result Date: 07/23/2025 [...] MD 07/23/2025 6:13 PM EDT Workstation ID: [id number] XR Foot 3+ View Left Result Date: [...] MD 07/23/2025 5:52 PM EDT Workstation ID: [id number] Assessment & Plan Assessment & Plan Critical [...] minutes Time spent includes time reviewing chart, ndqf-io-pvhr time, counseling patient/family/caregiver, ordering medications/tests/procedures, communicating with other health daytime caregiver, documenting clinical information in the electronic health [...] better. Daughter reports that cardiac interventionalist in [place] has been following her, and that she has had multiple revascularizations and stent placements. Daughter r eports that her provider told her that she was running out of options, but that she most likely would not be a candidate for amputation due to her cardiac history. Family reports that she has been following with a pulmonary disease specialist and professor of business administration outpatient who remove the top layer of [...] resting in bed; family at bedside HEENT: [place] conjunctivae, MMM Lungs: Normal respiratory effort Ext: motor intact; left great toe ulcer with discoloration/eschar/surrounding erythema; +left femoral pulse; no palpable left pedals Skin: Exposed skin warm Neuro: Follows simple commands Psych: Apropriate mood ?baseline memory loss? Relevant Results: Imaging Results (Last 48 Hours) Procedure Component Value Units Date/Time CT Angiogram Lower Extremity Bilateral [[id number]] Collected: 07/23/25 8843 Updated: 07/24/25 0001 Narrative: CT ANGIOGRAM LOWER [...] MD 07/23/2025 11:58 PM EDT Workstation ID: [id number] CT Lower Extremity Left Without Contrast [[id number]] Collected: 07/23/252000 Updated: 07/23/252009 Narrative: CT LOWER [...] DO 07/23/2025 8:07 PM EDT Workstation ID: [id number] XR Chest 1 View [[id number]] Collected: 07/23/251811 Updated: 07/23/251815 Narrative: XR CHEST [...] MD 07/23/2025 6:13 PM EDT Workstation ID: [id number] XR Foot 3+ View Left [[id number]] Collected: 07/23/251749 Updated: 07/23/251754 Narrative: XR FOOT [...] MD 07/23/2025 5:52 PM EDT Workstation ID: [id number] Lab Results (last 48 hours) Procedure Component Value Units Date/Time POC Glucose Once [[id number]] (Normal) Collected: 07/24/25 1130 Specimen: Blood Updated: 07/24/25 1133 Glucose 93 mg/dL Comment: Serial Number: [id number]: [id number] POC Glucose Q6H [[id number]] (Normal) Collected: 07/24/25 0753 Specimen: Blood Updated: 07/24/25 0755 Glucose 106 mg/dL Comment: Serial Number: [id number]: [id number] aPTT [[id number]] (Abnormal) Collected: 07/24/25 0445 Specimen: Blood Updated: 07/24/25616 PTT 59.2 seconds Narrative: PTT = The equivalent PTT values for the therapeutic range of heparin levels at 0.3 to 0.5 U/ml are 60 to 70 seconds. Hemoglobin A1c [[id number]] (Abnormal) Collected: 07/24/25444 Specimen: Blood Updated: 07/24/25544 Hemoglobin A1C 6.03 % Narrative: Hemoglobin A1C Ranges: Increased Risk for Diabetes 5.7% to 6.4% Diabetes >= 6.5% Diabetic Goal < 7.0% Comprehensive Metabolic Panel [[id number]] (Abnormal) Collected: 07/24/25444 Specimen: Blood Updated: 07/24/25524 [...] include race as a factor Digoxin Level [[id number]] (Normal) Collected: 07/24/25444 Specimen: Blood Updated: 07/24/25524 Digoxin 0.62 ng/mL Narrative: Results may be falsely increased if patient taking Biotin. Magnesium [[id number]] (Normal) Collected: 07/24/25444 Specimen: Blood Updated: 07/24/25524 Magnesium 1.7 mg/dL Phosphorus [[id number]] (Normal) Collected: 07/24/25444 Specimen: Blood Updated: 07/24/25524 Phosphorus 3.6 mg/dL Lipid Panel [[id number]] Collected: 07/24/25444 Specimen: Blood Updated: 07/24/25524 Total [...] NIH LDL-C calculation. High Sensitivity Troponin T [[id number]] (Abnormal) Collected: 07/24/25444 Specimen: Blood Updated: 07/24/25524 [...] due to an underlying chronic condition. CK [[id number]] (Normal) Collected: 07/24/25444 Specimen: Blood Updated: 07/24/25524 Creatine Kinase 61 U/L Lactic Acid, Plasma [[id number]] (Normal) Collected: 07/24/25444 Specimen: Blood Updated: 07/24/25516 Lactate 0.6 mmol/L Comment: Falsely depressed results may occur on samples drawn from patients receiving N-Acetylcysteine (NAC) or Metamizole. CBC Auto Differential [[id number]] (Abnormal) Collected: 07/24/25444 Specimen: Blood Updated: 07/24/25453 [...] 10*3/mm3 nRBC 0.0 /100 WBC Heparin Anti-Xa [[id number]] (Abnormal) Collected: 07/23/252199 Specimen: Blood from Arm, Left Updated: 07/23/252303 Heparin Anti-Xa (UFH) >1.10 IU/ml Protime-INR [[id number]] (Abnormal) Collected: 07/23/252199 Specimen: Blood from Arm, Left Updated: 07/23/252231 Protime 17.0 Seconds INR 1.30 aPTT [[id number]] (Abnormal) Collected: 07/23/252199 Specimen: Blood from Arm, Left Updated: 07/23/252231 PTT 38.1 seconds Narrative: PTT = The equivalent PTT values for the therapeutic range of heparin levels at 0.3 to 0.5 U/ml are 60 to 70 seconds. High Sensitivity Troponin T 1Hr [[id number]] (Abnormal) Collected: 07/23/251953 Specimen: Blood Updated: 07/23/252018 [...] condition. Blood Culture - Blood, Arm, Right [[id number]] Collected: 07/23/251734 Specimen: Blood from Arm, Right Updated: 07/23/251943 Blood Culture - Blood, Arm, Left [[id number]] Collected: 07/23/251744 Specimen: Blood from Arm, Left Updated: 07/23/251943 Comprehensive Metabolic Panel [[id number]] (Abnormal) Collected: 07/23/251731 Specimen: Blood Updated: 07/23/251801 [...] as a factor High Sensitivity Troponin T [[id number]] (Abnormal) Collected: 07/23/251731 Specimen: Blood Updated: 07/23/251801 [...] an underlying chronic condition. Lactic Acid, Plasma [[id number]] (Normal) Collected: 07/23/251731 Specimen: Blood Updated: 07/23/25 1800 Lactate 1.2 mmol/L Comment: Falsely depressed results may occur on samples drawn from patients receiving N-Acetylcysteine (NAC) or Metamizole. CBC & Differential [[id number]] (Abnormal) Collected: 07/23/251731 Specimen: Blood Updated: 07/23/251743 Narrative: The following orders were created for panel order CBC & Differential. Procedure Abnormality Status --------- ------ CBC Auto Differential[[id number]] Abnormal Final result Please view results for these tests on the individual orders. CBC Auto Differential [[id number]] (Abnormal) Collected: 07/23/251731 Specimen: Blood Updated: 07/23/251743 [...] critical limb ischemia - recent angioplasty in [place] 06/18/25 - multiple stents from iliac down to popliteal and including ENGINE WIPER - Diabetes mellitus type 2 with neuropathy [...] discussion with her and her power of commercial litigation attorney it appears the patient has elected [...] weight shift assistance provided Head of Bed ([facility]) Positioning: HOB elevated Pressure Reduction Devices: heel offloading device utilized positioning supports utilized pressure-redistributing mattress utilized Skin Protection: incontinence pads utilized silicone border foam - heel silicone border foam - sacrum/coccyx Taken 07/25/2025 0000 by Arely Uribe RN Activity Management: activity encouraged Pressure Reduction Techniques: frequent weight shift encouraged pressure points protected heels elevated off bed weight shift assistance provided Head of Bed ([facility]) Positioning: [facility] elevated Pressure Reduction Devices: heel offloading device utilized positioning supports utilized pressure-redistributing mattress utilized Skin Protection: incontinence pads utilized silicone border foam - heel silicone border foam - sacrum/coccyx Taken 07/24/2025 2200 by Arely Uribe RN Activity Management: activity encouraged Pressure Reduction Techniques: frequent weight shift encouraged pressure points protected weight shift assistance provided Head of Bed (HOB) Positioning: [facility] elevated Pressure Reduction Devices: positioning supports utilized pressure-redistributing mattress utilized specialty bed utilized Skin Protection: incontinence pads utilized silicone border foam - heel silicone border foam - sacrum/coccyx Taken 07/24/20251999 by Arely Uribe RN Activity Management: activity encouraged Pressure Reduction Techniques: frequent weight shift encouraged pressure points protected weight shift assistance provided heels elevated off bed Head of Bed ([facility]) Positioning: [facility] elevated Pressure Reduction Devices: positioning supports utilized [...] CWOCN Wound, Ostomy and Continence (WOC) Department [facility] * Kate Gil RN - 07/24/2025 [...] This was performed by Dr. Chadwick in [place]. She reports that the redness pain and [...] Telemetry [5] Diagnosis: PAD (peripheral artery disease) [948543] Admitting Physician: AMADA IBRAHIM [[id number]] Certification: I Certify That Inpatient Hospital Services Are Medically Necessary For Greater Than 2 Midnights No follow-up provider specified. Medication List No changes were made to your prescriptions during this visit. Vipul Barney MD 07/24/25 2179 documented in this encounter Miscellaneous Notes * Case Management/Social Work - Carol Reina RN - 07/24/2025 10:59 AM EDT Discharge Planning Assessment [facility] Patient Name: Hattie Zamora Today's Date: [...] Transition Planning Patient/Family Anticipated Services at Transition watch caser;rehabilitation services Transportation Anticipated family or friend [...] planning. She lives with her son in [facility]. Prior to admission, she ambulated with a rolling walker and required some assistance with ADL's. She also has a shower chair at home and is not current with home health. Her PCP is Alexis Montanez. She does not have an advanced directive. Verified that she has [employer] Medicare Repalcement. Ms. Zamora has RX coverage and has her scripts filled at [facility]. Her goal is to return home at discharge. Will await therapy recommendations to determine proper discharge placement. CM will continue to follow. Final Discharge Disposition Code 01 - home or self-care Continued Care and Services - Admitted Since 07/23/2025 No active coordination exists. Expected Discharge Date and Time Expected Discharge Date Expected Discharge Time Jul 25, 2025 Demographic Summary Row Name 07/24/25 9317 General Information Admission Type inpatient Arrived From emergency department Referral Source admission list Reason for Consult discharge planning Preferred Language Barbadian Functional Status Row Name 07/24/25 1055 Functional Status Usual Activity Tolerance fair Current Activity Tolerance fair Functional Status, IADL Medications assistive equipment Meal Preparation assistive equipment and person Housekeeping completely dependent Laundry completely dependent Shopping completely dependent Psychosocial No documentation. Abuse/Neglect No documentation. Legal No documentation. Substance Abuse No documentation. Patient Forms No documentation. Carol Renia, RN documented in this encounter Plan of Treatment Upcoming Encounters Date Type Department Care Team (Late st Contact Info) Description 09/16/2025 10:30 AM EST Office Visit [facility] [address] [facility] [address] [place] [id number] Melissa Briceño APRN [address] [facility] [address] [place] [address] documented as of this encounter Procedures Procedure [...] Glucose Once (07/25/2025 5:46 PM EDT) Pathologist [facility] Glucose 76 70 - 130 mg/dL 07/25/2025 5:51 PM EDT [facility] Comment:Serial Number: [id number]: [id number] Blood 07/25/2025 5:46 PM EDT 07/25/2025 5:51 PM EDT Norma Whitney DO POINT OF CARE TEST ORD ERABLES Final Result Performing Organization Address [facility]/ZIP Co de Phone Number [facility]
[address] [place] [address], * (ABNORMAL) aPTT (07/25/2025 5:17 PM EDT) [facility] PTT 46.0(L) 60.0 - 90.0 seconds 07/25/2025 5:47 PM EDT [facility] Blood Venipuncture / Unknown 07/25/2025 5:17 PM EDT 07/25/2025 5:32 PM EDT Narrative [facility] - 07/25/2025 5:47 PM EDT PTT = The equivalent PTT values for the therapeutic range of heparin levels at 0.3 to 0.5 U/ml are 60 to 70 seconds. us Ulises Bonilla [facility] BLOOD ORDERABLES Final Res ult Performing Organization Address City/[facility]/ZIP Co de Phone Number [facility]
[address] [place] [address], * (ABNORMAL) CBC Auto Differential (07/25/2025 5:17 PM EDT) [facility] Signature WBC 7.91 3.40 - 10.80 10*3/mm3 07/25/2025 5:35 PM EDT [facility] RBC 3.89 3.77 - 5.28 10*6/mm3 07/25/2025 5:35 PM EDT [facility] Hemoglobin 11.1(L) 12.0 - 15.9 g/dL 07/25/2025 5:35 PM EDT [facility] Hematocrit 34.9 34.0 - 46.6 % 07/25/2025 5:35 PM EDT [facility] MCV 89.7 79.0 - 97.0 fL 07/25/2025 5:35 PM EDT [facility] MCH 28.5 26.6 - 33.0 pg 07/25/2025 5:35 PM EDT [facility] MCHC 31.8 31.5 - 35.7 g/dL 07/25/2025 5:35 PM EDT [facility] RDW 12.3 12.3 - 15.4 % 07/25/2025 5:35 PM EDT [facility] RDW-SD 40.0 37.0 - 54.0 fl 07/25/2025 5:35 PM EDT [facility] MPV 8.8 6.0 - 12.0 fL 07/25/2025 5:35 PM EDT [facility] Platelets 285 140 - 450 10*3/mm3 07/25/2025 5:35 PM EDT [facility] Neutrophil % 55.2 42.7 - 76.0 % 07/25/2025 5:35 PM EDT [facility] Lymphocyte % 27.6 19.6 - 45.3 % 07/25/2025 5:35 PM EDT [facility] Monocyte % 9.0 5.0 - 12.0 % 07/25/2025 5:35 PM EDT [facility] Eosinophil % 7.3(H) 0.3 - 6.2 % 07/25/2025 5:35 PM EDT [facility] Basophil % 0.6 0.0 - 1.5 % 07/25/2025 5:35 PM EDT [facility] Immature Grans % 0.3 0.0 - 0.5 % 07/25/2025 5:35 PM EDT [facility] Neutrophils, Absolute 4.37 1.70 - 7.00 10*3/mm3 07/25/2025 5:35 PM EDT [facility] Lymphocytes, Absolute 2.18 0.70 - 3.10 10*3/mm3 07/25/2025 5:35 PM EDT [facility] Monocytes, Absolute 0.71 0.10 - 0.90 10*3/mm3 07/25/2025 5:35 PM EDT [facility] Eosinophils, Absolute 0.58(H) 0.00 - 0.40 10*3/mm3 07/25/2025 5:35 PM EDT [facility] Basophils, Absolute 0.05 0.00 - 0.20 10*3/mm3 07/25/2025 5:35 PM EDT [facility] Immature Grans, Absolute 0.02 0.00 - 0.05 10*3/mm3 07/25/2025 5:35 PM EDT [facility] nRBC 0.0 0.0 - 0.2 /100 WBC 07/25/2025 5:35 PM EDT [facility] Blood Venipuncture / Unknown 07/25/2025 5:17 PM EDT 07/25/2025 5:32 PM EDT us Norma Whitney DO LAB BLOOD ORDERABLES F inal Result [facility]
[address] [place] [address], * (ABNORMAL) Renal Function Panel (07/25/2025 5:17 PM EDT) [facility] Glucose 83 65 - 99 mg/dL 07/25/2025 5:59 PM EDT [facility] BUN 5.9(L) 8.0 - 23.0 mg/dL 07/25/2025 5:59 PM EDT [facility] Creatinine 0.53(L) 0.57 - 1.00 mg/dL 07/25/2025 5:59 PM EDT [facility] Sodium 133(L) 136 - 145 mmol/L 07/25/2025 5:59 PM EDT [facility] Potassium 4.5 3.5 - 5.2 mmol/L 07/25/2025 5:59 PM EDT [facility] Chloride 99 98 - 107 mmol/L 07/25/2025 5:59 PM EDT [facility] CO2 29.7(H) 22.0 - 29.0 mmol/L 07/25/2025 5:59 PM EDT [facility] Calcium 8.5(L) 8.6 - 10.5 mg/dL 07/25/2025 5:59 PM EDT [facility] Albumin 3.2(L) 3.5 - 5.2 g/dL 07/25/2025 5:59 PM EDT [facility] Phosphorus 3.2 2.5 - 4.5 mg/dL 07/25/2025 5:59 PM EDT [facility] Anion Gap 4.3(L) 5.0 - 15.0 mmol/L 07/25/2025 5:59 PM EDT [facility] BUN/Creatinine Ratio 11.1 7.0 - 25.0 07/25/2025 5:59 PM EDT [facility] eGFR 91.3 >60.0 mL/min/1.7 3 07/25/2025 5:59 PM EDT [facility] Blood Venipuncture / Unknown 07/25/2025 5:17 PM EDT 07/25/2025 5:32 PM EDT [facility] - 07/25/2025 5:59 PM EDT [...] ORDERABLES F inal Result Performing Organization Address [facility] Co de Phone Number [facility]
[address] [place] [address], * Magnesium (07/25/2025 5:17 PM EDT) Magnesium 1.9 1.6 - 2.4 mg/dL 07/25/2025 5:59 PM EDT [facility] Blood Venipuncture / Unknown 07/25/2025 5:17 PM EDT 07/25/2025 5:32 PM EDT Amada Ibrahim MD LAB BLOOD ORDERABLES Final Re sult Performing Organization Address [facility] Co de Phone Number [facility]
[address] [place] [address], * POC Glucose Once (07/25/2025 11:40 AM EDT) Glucose 87 70 - 130 mg/dL 07/25/2025 11:44 AM EDT [facility] Comment:Serial Number: [id number]: [id number] Blood 07/25/2025 11:4 0 AM EDT 07/25/2025 11:44 AM EDT Norma Whitney DO POINT OF CARE TEST ORD ERABLES Final Result Performing Organization Address [facility] Co de Phone Number [facility]
[address] [place] [address], * Telemetry Scan (07/25/2025 10:34 AM EDT) [facility] Onbase ECG ORDERABLES Final Result * Telemetry Scan (07/25/2025 8:02 AM EDT) [facility] Onbase ECG ORDERABLES Final Result * POC Glucose Q6H (07/25/2025 6:06 AM EDT) Glucose 100 70 - 130 mg/dL 07/25/2025 6:10 AM EDT [facility] Comment:Serial Number: [id number]: [id number] Blood 07/25/2025 6:06 AM EDT 07/25/2025 6:10 AM EDT Amada Ibrahim MD POINT OF CARE TEST ORDERABLES Final Result Performing Organization Address [facility] de Phone Number [facility]
[address] [place] [address], * (ABNORMAL) POC Glucose Q6H (07/25/2025 12:09 AM EDT) Glucose 154(H) 70 - 130 mg/dL 07/25/2025 12:11 AM EDT [facility] Comment:Serial Number: [id number]: [id number] Blood 07/25/2025 12:0 9 AM EDT 07/25/2025 12:11 AM EDT Amada Ibrahim MD POINT OF CARE TEST ORDERABLES Final Result Performing Organization Address [facility] Co de Phone Number [facility]
[address] [place] [address], * aPTT (07/24/2025 10:36 PM EDT) PTT 60.8 60.0 - 90.0 seconds 07/24/2025 11:18 PM EDT [facility] Blood Venipuncture / Unknown 07/24/2025 10:36 PM EDT 07/24/2025 10:54 PM EDT Narrative [facility] - 07/24/2025 11:18 PM EDT PTT = The equivalent PTT values for the therapeutic range of heparin levels at 0.3 to 0.5 U/ml are 60 to 70 seconds. us Ulises Bennett Irene [facility] LAB BLOOD ORDERABLES Final Res ult [facility]
[address] [place] [address], * (ABNORMAL) Urinalysis, Microscopic Only - Urine, Clean Catch (07/24/2025 10:03 PM EDT) Pathologist [facility] RBC, UA None Seen None Seen, 0-2 /HPF 07/24/2025 10:21 PM EDT [facility] WBC, UA 6-10(A) None Seen, 0-2 /HPF 07/24/2025 10:21 PM EDT [facility] Bacteria, UA None Seen None Seen /HPF 07/24/2025 10:21 PM EDT [facility] Squamous Epithelial Cells, UA 0-2 None Seen, 0-2 /HPF 07/24/2025 10:21 PM EDT [facility] Hyaline Casts, UA None Seen None Seen /LPF 07/24/2025 10:21 PM EDT [facility] Methodology Automated Microscopy 07/24/2025 10:21 PM EDT [facility] Urine Urine specimen obtained by clean catch procedure / Unknown Collection / Unknown 07/24/2025 10:03 PM EDT 07/24/2025 10:15 PM EDT Amada Ibrahim MD URINE ORDERABLES Final Result [facility]
[address] [place] [address], * (ABNORMAL) Urinalysis With Microscopic If Indicated (No Culture) - Urine, Clean Catch (07/24/2025 10:03 PM EDT) Color, UA Yellow Yellow, Straw 07/24/2025 10:21 PM EDT [facility] Appearance, UA Cloudy(A) Clear 07/24/2025 10:21 PM EDT [facility] pH, UA <=5.0 5.0 - 8.0 07/24/2025 10:21 PM EDT [facility] Specific [place], UA 1.022 1.005 - 1.030 07/24/2025 10:21 PM EDT [facility] Glucose, UA Negative Negative 07/24/2025 10:21 PM EDT [facility] Ketones, UA Negative Negative 07/24/2025 10:21 PM EDT [facility] Bilirubin, UA Negative Negative 07/24/2025 10:21 PM EDT [facility] Blood, UA Negative Negative 07/24/2025 10:21 PM EDT [facility] Protein, UA Negative Negative 07/24/2025 10:21 PM EDT [facility] Leuk Esterase, UA Small (1+)(A) Negative 07/24/2025 10:21 PM EDT [facility] Nitrite, UA Negative Negative 07/24/2025 10:21 PM EDT [facility] Urobilinogen, UA 1.0 E.U./dL 0.2 - 1.0 E.U./dL 07/24/2025 10:21 PM EDT [facility] Urine Urine specimen obtained by clean catch procedure / Unknown Collection / Unknown 07/24/2025 10:03 PM EDT 07/24/2025 10:15 PM EDT Amada Ibrahim MD URINE ORDERABLES Final Result Performing Organization Address [facility] de Phone Number [facility]
[address] [place] [address], * (ABNORMAL) MRSA Screen, PCR (Inpatient) - Swab, Nares (07/24/2025 8:55 PM EDT) MRSA PCR Positive(A ) Negative CEPHEID GENEXPERT 07/25/2025 8:09 AM EDT [facility] Swab Structure of anterior naris / Unknown Collection / Unknown 07/24/2025 8:55 PM EDT 07/24/2025 9:16 PM EDT Narrative [facility] - 07/25/2025 8:09 AM EDT The negative predictive value of this diagnostic test is high and should only be used to consider de-escalating anti-MRSA therapy. A positive result may indicate colonization with MRSA and must be correlated clinically. Randy Mathis PharmD MICROBIOLOGY - GENERAL ORDERABLES Final Result Performing Organization Address [facility] de Phone Number [facility]
[address] [place] [address], * POC Glucose Once (07/24/2025 5:45 PM EDT) Glucose 119 70 - 130 mg/dL 07/24/2025 5:49 PM EDT [facility] Comment:Serial Number: [id number]: [id number] Blood 07/24/2025 5:45 PM EDT 07/24/2025 5:49 PM EDT Norma Whitney DO POINT OF CARE TEST ORD ERABLES Final Result Performing Organization Address [facility]/ZIP Co de Phone Number [facility]
[address] [place] [address], * (ABNORMAL) aPTT (07/24/2025 3:27 PM EDT) Pathologist [facility] PTT 97.0(H) 60.0 - 90.0 seconds 07/24/2025 4:09 PM EDT [facility] Blood Venipuncture / Unknown 07/24/2025 3:27 PM EDT 07/24/2025 3:33 PM EDT Narrative [facility] - 07/24/2025 4:09 PM EDT PTT = The equivalent PTT values for the therapeutic range of heparin levels at 0.3 to 0.5 U/ml are 60 to 70 seconds. Ulises Bonilla [facility] LAB BLOOD ORDERABLES Final Res ult Performing Organization Address [facility] Co de Phone Number [facility]
[address] [place] [address], * POC Glucose Once (07/24/2025 11:30 AM EDT) [facility] Glucose 93 70 - 130 mg/dL 07/24/2025 11:33 AM EDT [facility] Comment:Serial Number: [id number]: [id number] Blood 07/24/2025 11:3 0 AM EDT 07/24/2025 11:33 AM EDT us Norma Whitney DO POINT OF CARE TEST ORD ERABLES Final Result Performing Organization Address [facility] Co de Phone Number [facility]
[address] [place] [address], * DUPLEX LOWER EXTREMITY ART/GRAFTS LEFT CAR - COR/REGI/MAD (07/24/2025 9:21 AM EDT) [facility] ENGINE WIPER Distal PSV-Left 55.22 cm/s ENGINE WIPER Distal EDV-Left 15.23 cm/s DFA Prox PSV-Left [...] Ant Tibial A Distal EDV-Left 5.80 cm/s PANTOGRAPH SETTER Prox PSV-Left 0.00 cm/s PANTOGRAPH SETTER Mid PSV-Left 0.00 cm/s PANTOGRAPH SETTER Distal PSV-Left 0.00 cm/s Peroneal Mid PSV-Left 0.00 cm/s Left groin ENGINE WIPER sys 55.2 cm/sec Anatomical Region Laterality Modality [...] distal, Pop A proximal, Pop A distal, PANTOGRAPH SETTER proximal, PANTOGRAPH SETTER mid, PANTOGRAPH SETTER distal, and Neelima A mid had absent [...] uncooperative patient, patient positioning and Pain Intolerance. Amada Ibrahim MD VASCULAR ORDERABLES Final Result * POC Glucose Q6H (07/24/2025 7:53 AM EDT) [facility] Glucose 106 70 - 130 mg/dL 07/24/2025 7:55 AM EDT [facility] Comment:Serial Number: [id number]: [id number] Blood 07/24/2025 7:53 AM EDT 07/24/2025 7:55 AM EDT Amada Ibrahim MD POINT OF CARE TEST ORDERABLES Final Result [facility]
[address] [place] [address], * (ABNORMAL) High Sensitivity Troponin T (07/24/2025 4:45 AM EDT) [facility] HS Troponin T 23(H) <14 ng/L 07/24/2025 5:25 AM EDT [facility] Blood Venipuncture / Unknown 07/24/2025 4:45 AM EDT 07/24/2025 4:50 AM EDT [facility] - 07/24/2025 5:25 AM EDT High [...] ORDERABLES Final Re sult Performing Organization Address [facility]/ZIP Co de Phone Number [facility]
[address] [place] [address], * (ABNORMAL) aPTT (07/24/2025 4:45 AM EDT) PTT 59.2(L) 60.0 - 90.0 seconds 07/24/2025 6:17 AM EDT [facility] Blood Venipuncture / Unknown 07/24/2025 4:45 AM EDT 07/24/2025 5:46 AM EDT [facility] - 07/24/2025 6:17 AM EDT PTT = The equivalent PTT values for the therapeutic range of heparin levels at 0.3 to 0.5 U/ml are 60 to 70 seconds. Ulises Bonilla [facility] LAB BLOOD ORDERABLES Final Res ult Performing Organization Address [facility]/ZIP Co de Phone Number [facility]
[address] [place] [address], * (ABNORMAL) Hemoglobin A1c (07/24/2025 4:45 AM EDT) Hemoglobin A1C 6.03(H) 4.80 - 5.60 % 07/24/2025 5:45 AM EDT [facility] Blood Venipuncture / Unknown 07/24/2025 4:45 AM EDT 07/24/2025 4:51 AM EDT [facility] - 07/24/2025 5:45 AM EDT Hemoglobin A1C Ranges: Increased Risk for Diabetes 5.7% to 6.4% Diabetes >= 6.5% Diabetic Goal < 7.0% Amada Ibrahim MD LAB BLOOD ORDERABLES Final Re sult [facility]
[address] [place] [address], * Lipid Panel (07/24/2025 4:45 AM EDT) Total Cholesterol 105 0 - 200 mg/dL 07/24/2025 5:25 AM EDT [facility] Triglycerides 65 0 - 150 mg/dL 07/24/2025 5:25 AM EDT [facility] HDL Cholesterol 50 40 - 60 mg/dL 07/24/2025 5:25 AM EDT [facility] LDL Cholesterol 41 0 - 100 mg/dL 07/24/2025 5:25 AM EDT [facility] VLDL Cholesterol 14 5 - 40 mg/dL 07/24/2025 5:25 AM EDT [facility] LDL/HDL Ratio 0.84 07/24/2025 5:25 AM EDT [facility] Blood Venipuncture / Unknown 07/24/2025 4:45 AM EDT 07/24/2025 4:50 AM EDT [facility] - 07/24/2025 5:25 AM EDT Cholesterol [...] is calculated using the NIH LDL-C calculation. us Amada Ibrahim MD LAB BLOOD ORDERABLES Final Re sult Performing Organization Address [facility] Co de Phone Number [facility]
[address] [place] [address], * Phosphorus (07/24/2025 4:45 AM EDT) Phosphorus 3.6 2.5 - 4.5 mg/dL 07/24/2025 5:25 AM EDT [facility] Blood Venipuncture / Unknown 07/24/2025 4:45 AM EDT 07/24/2025 4:50 AM EDT us Amada Ibrahim MD LAB BLOOD ORDERABLES Final Re sult Performing Organization Address [facility] Co de Phone Number [facility]
[address] [place] [address], * Magnesium (07/24/2025 4:45 AM EDT) Magnesium 1.7 1.6 - 2.4 mg/dL 07/24/2025 5:25 AM EDT [facility] Blood Venipuncture / Unknown 07/24/2025 4:45 AM EDT 07/24/2025 4:50 AM EDT us Amada Ibrahim MD LAB BLOOD ORDERABLES Final Re sult Performing Organization Address [facility] Co de Phone Number [facility]
[address] [place] [address], * Lactic Acid, Plasma (07/24/2025 4:45 AM EDT) Lactate 0.6 0.5 - 2.0 mmol/L 07/24/2025 5:17 AM EDT [facility] Comment:Falsely depressed re sults may occur on samples drawn from patients receiving N-Acetylcysteine (NAC) or Metamizole. Blood Venipuncture / Unknown 07/24/2025 4:45 AM EDT 07/24/2025 4:50 AM EDT Amada Ibrahim MD LAB BLOOD ORDERABLES Final Re sult Performing Organization Address [facility]/ZIP Co de Phone Number [facility]
[address] [place] [address], * CK (07/24/2025 4:45 AM EDT) Creatine Kinase 61 20 - 180 U/L 07/24/2025 5:25 AM EDT [facility] Blood Venipuncture / Unknown 07/24/2025 4:45 AM EDT 07/24/2025 4:50 AM EDT Amada Ibrahim MD LAB BLOOD ORDERABLES Final Re sult Performing Organization Address City/[facility]/ZIP Ks de Phone Number [facility]
[address] [place] [address], * Digoxin Level (07/24/2025 4:45 AM EDT) Digoxin 0.62 0.60 - 1.20 ng/mL 07/24/2025 5:25 AM EDT [facility] Blood Venipuncture / Unknown 07/24/2025 4:45 AM EDT 07/24/2025 4:50 AM EDT Narrative [facility] - 07/24/2025 5:25 AM EDT Results may be falsely increased if patient taking Biotin. Amada Ibrahim MD LAB BLOOD ORDERABLES Final Re sult [facility]
[address] [place] [address], * (ABNORMAL) Comprehensive Metabolic Panel (07/24/2025 4:45 AM EDT) Glucose 118(H) 65 - 99 mg/dL 07/24/2025 5:25 AM EDT [facility] BUN 10.3 8.0 - 23.0 mg/dL 07/24/2025 5:25 AM EDT [facility] Creatinine 0.54(L) 0.57 - 1.00 mg/dL 07/24/2025 5:25 AM EDT [facility] Sodium 133(L) 136 - 145 mmol/L 07/24/2025 5:25 AM EDT [facility] Potassium 4.1 3.5 - 5.2 mmol/L 07/24/2025 5:25 AM EDT [facility] Chloride 99 98 - 107 mmol/L 07/24/2025 5:25 AM EDT [facility] CO2 23.7 22.0 - 29.0 mmol/L 07/24/2025 5:25 AM EDT [facility] Calcium 8.6 8.6 - 10.5 mg/dL 07/24/2025 5:25 AM EDT [facility] Total Protein 5.8(L) 6.0 - 8.5 g/dL 07/24/2025 5:25 AM EDT [facility] Albumin 3.2(L) 3.5 - 5.2 g/dL 07/24/2025 5:25 AM EDT [facility] ALT (SGPT) 10 1 - 33 U/L 07/24/2025 5:25 AM EDT [facility] AST (SGOT) 19 1 - 32 U/L 07/24/2025 5:25 AM EDT [facility] Alkaline Phosphatase 49 39 - 117 U/L 07/24/2025 5:25 AM EDT [facility] Total Bilirubin 0.2 0.0 - 1.2 mg/dL 07/24/2025 5:25 AM EDT [facility] Globulin 2.6 gm/dL 07/24/2025 5:25 AM EDT [facility] Comment:Calculated Result A/G Ratio 1.2 g/dL 07/24/2025 5:25 AM EDT [facility] BUN/Creatinine Ratio 19.1 7.0 - 25.0 07/24/2025 5:25 AM EDT [facility] Anion Gap 10.3 5.0 - 15.0 mmol/L 07/24/2025 5:25 AM EDT [facility] eGFR 90.9 >60.0 mL/min/1.7 3 07/24/2025 5:25 AM EDT [facility] Blood Venipuncture / Unknown 07/24/2025 4:45 AM EDT 07/24/2025 4:50 AM EDT [facility] - 07/24/2025 5:25 AM EDT [...] MD LAB BLOOD ORDERABLES Final Re sult [facility]
[address] [place] [address], * (ABNORMAL) CBC Auto Differential (07/24/2025 4:45 AM EDT) [facility] WBC 8.96 3.40 - 10.80 10*3/mm3 07/24/2025 4:54 AM EDT [facility] RBC 3.77 3.77 - 5.28 10*6/mm3 07/24/2025 4:54 AM EDT [facility] Hemoglobin 10.8(L) 12.0 - 15.9 g/dL 07/24/2025 4:54 AM EDT [facility] Hematocrit 33.8(L) 34.0 - 46.6 % 07/24/2025 4:54 AM EDT [facility] MCV 89.7 79.0 - 97.0 fL 07/24/2025 4:54 AM EDT [facility] MCH 28.6 26.6 - 33.0 pg 07/24/2025 4:54 AM EDT [facility] MCHC 32.0 31.5 - 35.7 g/dL 07/24/2025 4:54 AM EDT [facility] RDW 12.2(L) 12.3 - 15.4 % 07/24/2025 4:54 AM EDT [facility] RDW-SD 40.1 37.0 - 54.0 fl 07/24/2025 4:54 AM EDT [facility] MPV 8.7 6.0 - 12.0 fL 07/24/2025 4:54 AM EDT [facility] Platelets 282 140 - 450 10*3/mm3 07/24/2025 4:54 AM EDT [facility] Neutrophil % 55.9 42.7 - 76.0 % 07/24/2025 4:54 AM EDT [facility] Lymphocyte % 27.9 19.6 - 45.3 % 07/24/2025 4:54 AM EDT [facility] Monocyte % 9.2 5.0 - 12.0 % 07/24/2025 4:54 AM EDT [facility] Eosinophil % 6.1 0.3 - 6.2 % 07/24/2025 4:54 AM EDT [facility] Basophil % 0.3 0.0 - 1.5 % 07/24/2025 4:54 AM EDT [facility] Immature Grans % 0.6(H) 0.0 - 0.5 % 07/24/2025 4:54 AM EDT [facility] Neutrophils, Absolute 5.01 1.70 - 7.00 10*3/mm3 07/24/2025 4:54 AM EDT [facility] Lymphocytes, Absolute 2.50 0.70 - 3.10 10*3/mm3 07/24/2025 4:54 AM EDT [facility] Monocytes, Absolute 0.82 0.10 - 0.90 10*3/mm3 07/24/2025 4:54 AM EDT [facility] Eosinophils, Absolute 0.55(H) 0.00 - 0.40 10*3/mm3 07/24/2025 4:54 AM EDT [facility] Basophils, Absolute 0.03 0.00 - 0.20 10*3/mm3 07/24/2025 4:54 AM EDT [facility] Immature Grans, Absolute 0.05 0.00 - 0.05 10*3/mm3 07/24/2025 4:54 AM EDT [facility] nRBC 0.0 0.0 - 0.2 /100 WBC 07/24/2025 4:54 AM EDT [facility] Blood Venipuncture / Unknown 07/24/2025 4:45 AM EDT 07/24/2025 4:51 AM EDT us Amada Ibrahim MD LAB BLOOD ORDERABLES Final Re sult [facility]
[address] [place] [address], * CT Angiogram Lower Extremity Bilateral (07/23/2025 [...] MD 07/23/2025 11:58 PM EDT Workstation ID: [id number] Narrative 07/23/2025 11:[address] ANGIOGRAM [...] MD 07/23/2025 11:58 PM EDT Workstation ID: [id number] Amada Ibrahim MD IMG CT ORDERABLES Final Resul t * (ABNORMAL) aPTT (07/23/2025 10:00 PM EDT) PTT 38.1(L) 60.0 - 90.0 seconds 07/23/2025 10:32 PM EDT [facility] Blood Structure of left upper limb / Unknown Venipuncture / Unknown 07/23/2025 10:00 PM EDT 07/23/2025 10:09 PM EDT Narrative [facility] - 07/23/2025 10:32 PM EDT PTT = The equivalent PTT values for the therapeutic range of heparin levels at 0.3 to 0.5 U/ml are 60 to 70 seconds. Vipul Barney MD LAB BLOOD ORDERABLES Ely l Result Performing Organization Address City/[facility]/ZIP Co de Phone Number [facility]
[address] [place] [address], * (ABNORMAL) Protime-INR (07/23/2025 10:00 PM EDT) Protime 17.0(H) 12.2 - 15.3 Seconds 07/23/2025 10:32 PM EDT [facility] INR 1.30(H) 0.89 - 1.12 07/23/2025 10:32 PM EDT [facility] Blood Structure of left upper limb / Unknown Venipuncture / Unknown 07/23/2025 10:00 PM EDT 07/23/2025 10:09 PM EDT Vipul Barney MD LAB BLOOD ORDERABLES Ely l Result [facility]
[address] [place] [address], * (ABNORMAL) Heparin Anti-Xa (07/23/2025 10:00 PM EDT) [facility] Heparin Anti-Xa (UFH) >1.10(HH) 0.30 - 0.70 IU/ml 07/23/2025 11:04 PM EDT [facility] Blood Structure of left upper limb / Unknown Venipuncture / Unknown 07/23/2025 10:00 PM EDT 07/23/2025 10:09 PM EDT Vipul Barney MD LAB BLOOD ORDERABLES Ely l Result [facility]
[address] [place] [address], * (ABNORMAL) High Sensitivity Troponin T 1Hr (07/23/2025 7:54 PM EDT) [facility] HS Troponin T 21(H) <14 ng/L 07/23/2025 8:19 PM EDT [facility] Troponin T Numeric Delta -5 ng/L 07/23/2025 8:19 PM EDT [facility] Troponin T % Delta -19 Abnormal if >/= 20% 07/23/2025 8:19 PM EDT [facility] Blood Venipuncture / Unknown 07/23/2025 7:54 PM EDT 07/23/2025 7:57 PM EDT Narrative [facility] - 07/23/2025 8:19 PM EDT High [...] MD LAB BLOOD ORDERABLES Ely l Result [facility]
[address] [place] [address], * CT Lower Extremity Left Without Contrast [...] DO 07/23/2025 8:07 PM EDT Workstation ID: [id number] Narrative 07/23/2025 8:[address] LOWER [...] DO 07/23/2025 8:07 PM EDT Workstation ID: [id number] Vipul Barney MD [facility] ORDERABLES Final R esult * ECG 12 Lead Pre-Op / Pre-Procedure (07/23/2025 6:08 PM EDT) QT Interval 406 ms ECG QTC Interval 450 ms ECG 07/23/2025 6:08 PM EDT 08/11/2025 11:04 AM EDT Narrative [facility] ECG - 08/11/2025 11:04 AM EDT Test [...] (2113) on 08/11/2025 11:04:33 AM Referred By: jorge christine Confirmed By: VPIUL BARNEY Procedure Note Vipul Barney MD - [...] (2113) on 08/11/2025 11:04:33 AM Referred By: jorge christine Confirmed By: VIPUL BARNEY us Vipul Barney MD ECG ORDERABLES Final Res ult ECG * XR Chest 1 View (07/23/2025 6:04 PM EDT) Anatomical Region Laterality Modality Body N/A Radiographic Sherry ging 07/23/2025 6:12 PM EDT Impressions 07/23/2025 6:13 PM EDT Impression: No radiographic evidence of acute chest process. Electronically Signed: López Haywood MD 07/23/2025 6:13 PM EDT Workstation ID: [id number] Narrative 07/23/2025 6:13 PM EDT XR CHEST [...] MD 07/23/2025 6:13 PM EDT Workstation ID: [id number] Vipul Barney MD IMG DIAGNOSTIC IMAGING OR DERABLES Final Result * XR Foot 3+ View Left (07/23/2025 5:48 PM EDT) Anatomical Region Laterality Modality Lower Extremities, Foot Left [facility] 07/23/2025 5:50 PM EDT Impressions 07/23/2025 5:52 PM EDT 1. No acute fracture or posttraumatic subluxation identified. Electronically Signed: Hay Saldana MD 07/23/2025 5:52 PM EDT Workstation ID: [id number] Narrative 07/23/2025 5:52 PM EDT XR FOOT [...] MD 07/23/2025 5:52 PM EDT Workstation ID: [id number] Vipul Barney MD IMG DIAGNOSTIC IMAGING OR DERABLES Final Result * Blood Culture - Blood, Arm, Left (07/23/2025 5:45 PM EDT) Blood Culture No growth at 5 days 07/28/2025 7:46 PM EDT [facility] Blood Structure of left upper limb / Unknown Venipuncture / Unknown 07/23/2025 5:45 PM EDT 07/23/2025 7:44 PM EDT [facility] - 07/28/2025 7:46 PM EDT Less than seven (7) mL's of blood was collected. Insufficient quantity may yield false negative results. Vipul Barney MD MICROBIOLOGY - GENERAL OR DERABLES Final Result Performing Organization Address [facility] de Phone Number [facility]
[address] [place] [address], * Blood Culture - Blood, Arm, Right (07/23/2025 5:35 PM EDT) Blood Culture No growth at 5 days 07/28/2025 7:46 PM EDT [facility] Blood Structure of right upper limb / Unknown Venipuncture / Unknown 07/23/2025 5:35 PM EDT 07/23/2025 7:44 PM EDT [facility] - 07/28/2025 7:46 PM EDT Less than seven (7) mL's of blood was collected. Insufficient quantity may yield false negative results. us Vipul Barney MD MICROBIOLOGY - GENERAL OR DERABLES Final Result Performing Organization Address [facility] Co de Phone Number [facility]
[address] [place] [address], * (ABNORMAL) High Sensitivity Troponin T (07/23/2025 5:32 PM EDT) [facility] HS Troponin T 26(H) <14 ng/L 07/23/2025 6:02 PM EDT [facility] Blood Line / Unknown 07/23/2025 5: 32 PM EDT 07/23/2025 5:40 PM EDT Narrative [facility] - 07/23/2025 6:02 PM EDT High [...] MD LAB BLOOD ORDERABLES Ely l Result [facility]
[address] [place] [address], * (ABNORMAL) CBC Auto Differential (07/23/2025 5:32 PM EDT) [facility] WBC 12.54(H) 3.40 - 10.80 10*3/mm3 07/23/2025 5:44 PM EDT [facility] RBC 4.42 3.77 - 5.28 10*6/mm3 07/23/2025 5:44 PM EDT [facility] Hemoglobin 12.6 12.0 - 15.9 g/dL 07/23/2025 5:44 PM EDT [facility] Hematocrit 38.7 34.0 - 46.6 % 07/23/2025 5:44 PM EDT [facility] MCV 87.6 79.0 - 97.0 fL 07/23/2025 5:44 PM EDT [facility] MCH 28.5 26.6 - 33.0 pg 07/23/2025 5:44 PM EDT [facility] MCHC 32.6 31.5 - 35.7 g/dL 07/23/2025 5:44 PM EDT [facility] RDW 12.4 12.3 - 15.4 % 07/23/2025 5:44 PM EDT [facility] RDW-SD 39.8 37.0 - 54.0 fl 07/23/2025 5:44 PM EDT [facility] MPV 8.7 6.0 - 12.0 fL 07/23/2025 5:44 PM EDT [facility] Platelets 392 140 - 450 10*3/mm3 07/23/2025 5:44 PM EDT [facility] Neutrophil % 57.1 42.7 - 76.0 % 07/23/2025 5:44 PM EDT [facility] Lymphocyte % 25.8 19.6 - 45.3 % 07/23/2025 5:44 PM EDT [facility] Monocyte % 9.9 5.0 - 12.0 % 07/23/2025 5:44 PM EDT [facility] Eosinophil % 6.7(H) 0.3 - 6.2 % 07/23/2025 5:44 PM EDT [facility] Basophil % 0.3 0.0 - 1.5 % 07/23/2025 5:44 PM EDT [facility] Immature Grans % 0.2 0.0 - 0.5 % 07/23/2025 5:44 PM EDT [facility] Neutrophils, Absolute 7.15(H) 1.70 - 7.00 10*3/mm3 07/23/2025 5:44 PM EDT [facility] Lymphocytes, Absolute 3.24(H) 0.70 - 3.10 10*3/mm3 07/23/2025 5:44 PM EDT [facility] Monocytes, Absolute 1.24(H) 0.10 - 0.90 10*3/mm3 07/23/2025 5:44 PM EDT [facility] Eosinophils, Absolute 0.84(H) 0.00 - 0.40 10*3/mm3 07/23/2025 5:44 PM EDT [facility] Basophils, Absolute 0.04 0.00 - 0.20 10*3/mm3 07/23/2025 5:44 PM EDT [facility] Immature Grans, Absolute 0.03 0.00 - 0.05 10*3/mm3 07/23/2025 5:44 PM EDT [facility] nRBC 0.0 0.0 - 0.2 /100 WBC 07/23/2025 5:44 PM EDT [facility] Blood Line / Unknown 07/23/2025 5: 32 PM EDT 07/23/2025 5:40 PM EDT Vipul Barney MD LAB BLOOD ORDERABLES Ely l Result [facility]
[address] [place] [address], * (ABNORMAL) Comprehensive Metabolic Panel (07/23/2025 5:32 PM EDT) Glucose 124(H) 65 - 99 mg/dL 07/23/2025 6:02 PM EDT [facility] BUN 10.8 8.0 - 23.0 mg/dL 07/23/2025 6:02 PM EDT [facility] Creatinine 0.63 0.57 - 1.00 mg/dL 07/23/2025 6:02 PM EDT [facility] Sodium 134(L) 136 - 145 mmol/L 07/23/2025 6:02 PM EDT [facility] Potassium 4.3 3.5 - 5.2 mmol/L 07/23/2025 6:02 PM EDT [facility] Chloride 96(L) 98 - 107 mmol/L 07/23/2025 6:02 PM EDT [facility] CO2 25.9 22.0 - 29.0 mmol/L 07/23/2025 6:02 PM EDT [facility] Calcium 9.5 8.6 - 10.5 mg/dL 07/23/2025 6:02 PM EDT [facility] Total Protein 7.2 6.0 - 8.5 g/dL 07/23/2025 6:02 PM T [facility] Albumin 3.9 3.5 - 5.2 g/dL 07/23/2025 6:02 PM EDT [facility] ALT (SGPT) 15 1 - 33 U/L 07/23/2025 6:02 PM EDT [facility] AST (SGOT) 23 1 - 32 U/L 07/23/2025 6:02 PM T [facility] Alkaline Phosphatase 61 39 - 117 U/L 07/23/2025 6:02 PM T [facility] Total Bilirubin 0.4 0.0 - 1.2 mg/dL 07/23/2025 6:02 PM T [facility] Globulin 3.3 gm/dL 07/23/2025 6:02 PM T [facility] Comment:Calculated Result A/G Ratio 1.2 g/dL 07/23/2025 6:02 PM [facility] BUN/Creatinine Ratio 17.1 7.0 - 25.0 07/23/2025 6:02 PM [facility] Anion Gap 12.1 5.0 - 15.0 mmol/L 07/23/2025 6:02 PM [facility] eGFR 87.6 >60.0 mL/min/1.7 3 07/23/2025 6:02 PM T [facility] Blood Line / Unknown 07/23/2025 5: 32 PM EDT 07/23/2025 5:40 PM EDT [facility] - 07/23/2025 6:02 PM EDT [...] does not include race as a factor Vipul Barney MD LAB BLOOD ORDERABLES Ely l Result Performing Organization Address [facility] Co de Phone Number [facility]
[address] [place] [address], * Lactic Acid, Plasma (07/23/2025 5:32 PM EDT) Lactate 1.2 0.5 - 2.0 mmol/L 07/23/2025 6:00 PM EDT [facility] Comment:Falsely depressed re sults may occur on samples drawn from patients receiving N-Acetylcysteine (NAC) or Metamizole. Blood Line / Unknown 07/23/2025 5: 32 PM EDT 07/23/2025 5:40 PM EDT Vipul Barney MD LAB BLOOD ORDERABLES Ely l Result Performing Organization Address [facility] de Phone Number [facility]
[address] [place] [address], documented in this encounter Visit Diagnoses Diagnosis [...] for injection by adding 1 mL of signal constructor-supplied sterile diluent or sterile water for injection to a vial containing 1 mg of the drug, to provide solutions containing 1 mg/mL. Shake vial gently to dissolve. heparin 51116 units/250 mL (100 units/mL) in 0.45 % [...] EDT 18 Units/kg/hr 8.49 mL/ hr heparin 36151 units/250 mL (100 units/mL) in 0.45 % [...] mg/dL - 7 units & Call Provider ([facility]) Caution: Look alike/sound alike drug alert([facility]) iopamidol (ISOVUE-370) 76 % injection 100 mL [...] BPA Driven Protocol Open Order & Select [facility] Electrolyte Replacement Protocol Algorithm to View Details [...] on Tue07/24/25 at 0321, Until Tue07/25/25 at 203, Consult, Indications: Skin and Soft Tissue InfectionIndications:Skin and Soft Tissue Infection Phosphorus Replacement - Follow Nurse / BPA Driven Protocol Open Order & Select [facility] Electrolyte Replacement Protocol Algorithm to View Details [...] Tissue InfectionIndications:Skin and Soft Tissue Infection New 07/23/2025 8:03 PM EDT 1,000 mg 250 [...] since Tue07/23/2025 at 2307 until manually unheld 2306 (Held by provider - Provider: Amada Ibrahim MD - Reason: Other (Comment Required) - Comment: Patient on heparin gtt) 0900 (Dose Auto Held - Provider: Amada Ibrahim MD)2099 (Dose Auto Held - Provider: Amada Ibrahim MD) 09 (Dose Auto Held - Provider: Amada Ibrahim [...] 0125 (Canceled Entry - Provider: Lester Veloz, ENID)1129 (Not Given - Provider: Thelma Bear RRT - Reason: Other - 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 0311 (Given - Provider: Nicole Mauricio RN)0920 (Given - Provider: Kate Gil, BRAVO)203 (Given - Provider: Arely Uribe, BRAVO) 1315 (Given - Provider: Nika Lnyne RN - Comment: too sleepy this am to take meds) cefTRIAXone (ROCEPHIN) 1,000 mg in sodium chloride 0.9 % 100 mL MBP (COMPLETED) 1,000 mg, Intravenous, at 200 mL/hr, Administer over 30 Minutes, Once, On Tue07/23/25 at 202, For 1 dose, LR should be paused and flushing of the line with NS is recommended prior to and after completion of ceftriaxone infusion due to incompatibility. Do not co-adminster with calcium-containing solutions. Caution: Look alike/sound alike drug alert, Indications: Skin and Soft Tissue Infection 2112 (New Bag - Provider: Tank Gill, RN)2145 (Stopped - Provider: Tank Gill RN) cefTRIAXone (ROCEPHIN) 2,000 mg in sodium chloride [...] at 0900 0920 (Given - Provider: Kate Gil, BRAVO) 131 (Given - Provider: Nika Lynne RN) gabapentin (NEURONTIN) capsule 300 mg 300 mg, Oral, Every 12 Hours Scheduled, First dose on Tue07/23/25 at 2325, (SHIRA) 0311 (Given - Provider: Nicole Mauricio RN)09 (Given - Provider: Kate Gil RN)2032 (Given - Provider: Arely Uribe RN) 131 (Given - Provider: Nika Lynne RN) [...] mg/dL - 7 units & Call Provider ([facility]) Caution: Look alike/sound alike drug alert([facility]) 0000 (Due)0810 (Not Given - Provider: Kate Gil RN - Reason: Order parameters not met)1158 (Not Given - Provider: Kate Gil RN - Reason: Order parameters not met)1812 (Not Given - Provider: Kate Gil RN [...] dose 0920 (New Bag - Provider: Kate Gil RN) pravastatin (PRAVACHOL) tablet 40 mg 40 mg, Oral, Nightly, First dose on Tue07/24/25 at 2100, Avoid grapefruit juice. 2032 (Given - Provider: Arely Uribe RN) sodium chloride 0.9 % flush 10 mL 10 mL, Intravenous, Every 12 Hours Scheduled, First dose on Tue07/23/25 at 2240 0355 (Canceled Entry - Provider: Nicole Mauricio RN)0921 (Given - Provider: Kate Gil RN)2032 (Given - Provider: Arely Uribe RN) 0942 (Given - Provider: Nika Lynne RN) traZODone (DESYREL) tablet 50 mg (COMPLETED) 50 mg, Oral, Once, On Tue07/24/25 at 2330, For 1 dose, Take with food. Caution: Look alike/sound alike drug alert 2302 (Given - Provider: Arely Uribe RN) vancomycin (VANCOCIN) 1,000 mg in sodium chloride 0.9 % 250 mL IVPB-VTB (COMPLETED) 1,000 mg (rounded from 944 mg = 20 mg/kg 47.2 kg), Intravenous, at 250 mL/hr, Administer over 60 Minutes, Once, On Tue07/23/25 at 2007, For 1 dose, Indications: Skin and Soft Tissue Infection 2002 (New Bag - Provider: Tank Gill RN)2112 (Stopped - Provider: Tank Gill RN) vancomycin [...] Continuous Medication Order 07/23/2025 07/24/2025 07/25/2025 heparin 02895 units/250 mL (100 units/mL) in 0.45 % [...] action when infusion is complete: Stopped]) heparin 68333 units/250 mL (100 units/mL) in 0.45 % [...] BPA Driven Protocol Open Order & Select [facility] Electrolyte Replacement Protocol Algorithm to View Details [...] for injection by adding 1 mL of signal constructor-supplied sterile diluent or sterile water for injection [...] Tank Gill RN)2302 (Given - Provider: Arely Uribe RN) HYDROmorphone (DILAUDID) injection 0.25 mg(Linked Group 4) [...] BPA Driven Protocol Open Order & Select [facility] Electrolyte Replacement Protocol Algorithm to View Details [...] BPA Driven Protocol Open Order & Select [facility] Electrolyte Replacement Protocol Algorithm to View Details [...] BPA Driven Protocol Open Order & Select [facility] Electrolyte Replacement Protocol Algorithm to View Details [...] Infection And Vancomycin, Trough (CANCELED) Timed, On Tue07/25/25 at 1800, For 1 occurrence, New collection, [...] if polyethylene glycol is ineffective, Starting on e 07/23/25 at 2223, Use if no bowel [...] Insert Peripheral IV (CANCELED) STAT, Once, On 07/23/25 at 1924, For 1 occurrence And sodium chloride 0.9 % flush 10 mLJump to med 10 mL, Intravenous, As Needed, Line Care, Starting on Tue07/23/25 at 1923 documented in this encounter Additional Health Concerns Infection Onset Date Last Indicated Resolved Time 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
--- OUTSIDE RECORDS SUMMARY | 2025-07-31 13:54 | XMS_ITS | Encounter Summary ---
Author Organization [facility] Address [address] [place] [address] Care Team Providers Care Wood Polisher Name Role Phone Alexis Anand MD Primary Care Provider [phone] Reason for Referral * Home Health (Routine) - Pending Review Specialty Diagnoses / Procedures Referred By Contact Referred To Contact Home Health Services Diagnoses Critical limb ischemia of left lower extremity Procedures [place] OFFICE/OUTPATIENT NEW MODERATE MDM 45 MINUTES Neda Ocampo DO [address] [place] [address] Phone: tel: fax: Referral ID Status Reason Start Date Expiration Date Visits Requested Visits Authorized [id number] Pending Review Specialty Services Required 11/06/2026 999 999 * Consultation (Routine) - Authorized Specialty Diagnoses / Procedures Referred By Gumaro ferrera Referred To Contact Urology Diagnoses Acute urinary retention Procedures [place] OFFICE/OUTPATIENT NEW MODERATE MDM 45 MINUTES Neda Ocampo DO [address] [place] [address] Phone: tel: fax: Marya Lugo APRN [address] [facility] [address] [place] [address] Phone: tel: fax: Referral ID Status Reason Start Date Expiration Date Visits Requested Visits Authorized [id number] Authorized Specialty Services Required 11/06/2026 1 1 * Home Health (Routine) - Pending Review Specialty Diagnoses / Procedures Referred By Contact Referred To Contact Home Health Services Diagnoses Critical limb ischemia of left lower extremity Procedures [place] OFFICE/OUTPATIENT NEW MODERATE MDM 45 MINUTES Neda Ocampo DO [address] [place] [address] Phone: tel: fax: Referral ID Status Reason Start Date Expiration Date Visits Requested Visits Authorized [id number] Pending Review Specialty Services Required 11/06/2026 999 999 Reason for Visit * Reason Comments Wound Infection * Auth/Cert Specialty Diagnoses / Procedures Referred By Contac t Referred To Contact Diagnoses Claudication Critical limb ischemia of left lower extremity Referral ID Status Reason Start Date Expiration Date Visits Re quested Visits Authorized [id number] 1 1 Encounter Details Date Type Department Care Team (Late st Contact Info) Description 07/31/2025 2:54 PM EDT - 08/07/2025 3:06 PM EDT Hospital Encounter [address] [place] [phone] Gregg Munoz MD [address] [facility] [place] [address] Yoli Moreira MD [address] [facility] [place] [address] [place] [phone] Sage Goodson MD [address] [place] [address] Neda Ocampo DO [address] [place] [address] Critical limb ischemia of left lower extremity (Primary Dx); Claudication; Toe necrosis; Peripheral artery disease; Acute urinary retention [place] [facility] [place] History Tobacco Use Types Packs/Day Years [...] and heating? Patient unable to answer 08/01/2025 [facility] - Occupational Stress [...] daily living? Patient unable to answer 08/01/2025 [facility] Utilities Answer Date Recorded In the past 12 months has th e [employer], gas, oil, or water company threatened to [...] 12:58 PM EDT Karis August RN * [place] Suicide Severity Rating Scale (Screener/Recent Self-Report) Question [...] from the original note were not included. Psychiatric Medicine Services DISCHARGE SUMMARY Patient Name: Hattie [...] treatment after discharge. Follow-up provider: ALEXIS ANAND [[id number]] Reason/Clinical Findings: Critical limb ischemia of left lower extremity Describe mobility limitations that make leaving home difficult: [place], impaired functional mobility, impaired physical mobility Nursing/Therapeutic Services Requested: [facility] Physical Therapy Occupational Therapy [facility] orders: Medication education Cardiopulmonary assessments PT orders: [...] minutes on this discharge activity which included: [id number] with the patient, reviewing the data in the system, coordination of the care with the nursing staff as well as consultants, documentation, and entering orders. documented in this encounter Discharge Instructions * Discharge Instructions* Lucy Salgado RN - 08/07/2025 2:18 PM EDT * Attachments The following attachments cannot be sent through Care Everywhere. * Apixaban Tablets (Omani) * Trouble Peeing (Acute Urinary Retention) in Females: What to Know Gadk-wa-Vjpt ([place]mani) * Poor Blood Flow (Peripheral Vascular Disease): What to Know (Omani) * Tamsulosin Capsules ([place]mani) * Hydrocodone; Acetaminophen Capsules or Tablets ([place]i) * Surgery to Increase Blood Flow Down the Legs From a Blocked Artery (Femoropopliteal Bypass): What to Expect ([place]i) * Surgery to Remove a Toe (Toe Amputation): What to Know After ([place]i) documented in this encounter Medications at Time [...] 2 (Two) Times a Day With Meals. 11/12/202 5 HYDROcodone-acet aminophen (NORCO) 10-325 MG per [...] by mouth Daily. 30 capsule 08/08/2025 5 apixaban (ELIQUIS) 2.5 MG tablet tablet Take 1 tablet by mouth 2 (Two) Times a Day. Was held since discharge on 07/25 due to plans for procedure; was given enoxaparin bridge instead 5 documented as of this encounter Progress Notes * Azul Adrian, LUIS - 08/06/2025 3:04 PM EDT Patient Name: Hattie Santos Date of : 1940 Admission date: 07/31/2025 Reason for Encounter: Follow-up/Progress Note and Pressure Injury Stg 2+ [facility] Clinical Nutrition Assessment Subjective Subjective Information 08/06/25 [...] TOE AMPUTATION; Surgeon: Junior Zhao MD; Location: [facility]; Service:Vascular; Laterality: Left; FEMORAL POPLITEAL BYPASS Left 08/02/2025 Procedure: FEMORAL POPLITEAL BYPASS; Surgeon: Junior Zhao MD; Location: [facility] OR; Service: Vascular; Laterality: Left; Current Problems [...] Symptoms: dental appliance present Skin Wound 08/02/25 4021 medial coccyx Pressure Injury-Pressure Injury Stage: Other (Comment) (worseningITD) (08/05/25 1055) Bowel function Last Bowel Movement: 08/02/25 (08/06/25 8040) Stool Consistency: formed (08/02/25 0352) Edema Edema: [...] elderly white female; resting in bed HEENT: [place] conjunctivae, MMM Lungs: Normal respiratory effort Ext: motor intact; left foot dressing removed; left groin and LLE medial aquacel dressings Neuro: Follows simple commands Psych: Apropriate mood, baseline memory loss Labs: Lab Results (last 24 hours) Procedure Component Value Units Date/Time Basic Metabolic Panel [[id number]] (Abnormal) Collected: 08/06/251055 Specimen: Blood Updated: 08/06/25 [...] race as a factor CBC (No Diff) [[id number]] (Abnormal) Collected: 08/06/25 105 Specimen: Blood Updated: [...] critical limb ischemia - recent angioplasty in [place] 06/18/25 - multiple stents from iliac down to popliteal and including NERVE SPECIALIST - s/p Left femoral to below-knee popliteal [...] from the original note were not included. Psychiatric Medicine Services PROGRESS NOTE Patient Name: Hattie [...] AM-PAC 6 Clicks Score (PT): 12 (08/06/25 6230) CODE STATUS: Code Status and Medical Interventions: CPR (Attempt to Resuscitate); Full Support Ordered at: 07/31/25 8863 Code Status (Patient has no pulse and [...] RD 08/06/25 12:09 EDT * Aicha Costa [facility] - 08/05/2025 2:11 PM EDT Pharmacy to Dose Heparin Infusion Note Hattie Santos is a 85 y.o. female receiving heparin infusion. Therapy for (VTE/Cardiac): Cardiac (AF) Patient Weight: 53.3kg Initial Bolus (Y/N): No Any Bolus (Y/N): Yes Signs or Symptoms of Bleeding: No; per mac artist or Other (Not VTE) Initial Bolus: 60 [...] from the original note were not included. Psychiatric Medicine Services PROGRESS NOTE Patient Name: Hattie [...] RD 08/05/25 10:56 EDT * Virgie Rodriguez, MODELING DIRECTOR - 08/05/2025 10:47 AM EDT Images from [...] elderly white female; resting in bed HEENT: [place] conjunctivae, MMM Lungs: Normal respiratory effort Ext: motor intact; left foot dressing; left groin and LLE medial aquacel dressings Neuro: Follows simple commands Psych: Apropriate mood, baseline memory loss Labs: Lab Results (last 24 hours) Procedure Component Value Units Date/Time Heparin Anti-Xa [[id number]] (Abnormal) Collected: 08/05/25 1227 Specimen: Blood Updated: 08/05/25 1339 Heparin Anti-Xa (UFH) 0.10 IU/ml Tissue Pathology Exam [[id number]] Collected: 08/02/25 1546 Specimen: Tissue from Leg, Left; Tissue from Toe, Left Updated: 08/05/25 0746 Basic Metabolic Panel [[id number]] (Abnormal) Collected: 08/05/25 0432 Specimen: Blood Updated: [...] include race as a factor Heparin Anti-Xa [[id number]] (Abnormal) Collected: 08/05/25431 Specimen: Blood Updated: 08/05/25541 Heparin Anti-Xa (UFH) 0.24 IU/ml CBC & Differential [[id number]] (Abnormal) Collected: 08/05/25431 Specimen: Blood Updated: 08/05/25516 Narrative: The following orders were created for panel order CBC & Differential. Procedure Abnormality Status --------- ------ CBC Auto Differential[[id number]] AbnormalFinal result Please view results for these tests on the individual orders. CBC Auto Differential [[id number]] (Abnormal) Collected: 08/05/25431 Specimen: Blood Updated: 08/05/25516 [...] 10*3/mm3 nRBC 0.0 /100 WBC Heparin Anti-Xa [[id number]] (Abnormal) Collected: 08/04/252117 Specimen: Blood Updated: 08/04/252146 [...] critical limb ischemia - recent angioplasty in [place] 06/18/25 - multiple stents from iliac down to popliteal and including NERVE SPECIALIST - s/p Left femoral to below-knee popliteal [...] Garcia MD - 08/04/2025 12:58 PM EDT [facility] NOTE Hospital Day: 4 Ms. Hattie Santos, 85 y.o. female is followed for: PAD, hypertension, and diabetes mellitus. Postoperative care. SUBJECTIVE Interval history: Pleasantly confused. Awake and alert. Fluid balance negative. Afebrile. Normal sinus rhythm. Familyat bedside. The patient's relevant past medical, surgical and social history were reviewed and updated in [facility] as appropriate. OBJECTIVE Vital Sign Min/Max [...] Garcia MD - 08/03/2025 12:36 PM EDT [facility] NOTE Hospital Day: 3 Ms. Hattie Santos, [...] from the original note were not included. Psychiatric Medicine Services PROGRESS NOTE Patient Name: Hattie [...] to Resuscitate); Full Support Ordered at: 07/31/25 2387 Code Status (Patient has no pulse and is not breathing): CPR (Attempt to Resuscitate) Medical Interventions (Patient has pulse or is breathing): Full Support Level Of Support Discussed With: Patient Yoli Moreira MD 08/01/25 * Bear Quijano, [facility] - 07/31/2025 4:42 PM EDT [...] from the original note were not included. Psychiatric Medicine Services HISTORY AND PHYSICAL Patient Name: [...] cooperative Neurologic: Speech clear and fluent Skin: [place], slightly irritated area on the coccyx. Extremities: [...] Urinalysis Squamous Epithelial Cells, UA 0-2 Specific [place], UA 1.022 Ketones, UA Negative Blood, UA Negative Leukocytes, UA Small (1+) Nitrite, UA Negative RBC, UA None Seen WBC, UA 6-10 Bacteria, UA None Seen Microbiology Results (last 10 days) Procedure Component Value - Date/Time MRSA Screen, PCR (Inpatient) - Swab, Nares [[id number]] (Abnormal) Collected: 07/24/252054 Lab Status: Final result Specimen: Swab from Nares Updated: 07/25/25808 MRSA PCR Positive Narrative: The negative predictive value of this diagnostic test is high and should only be used to consider de-escalating anti-MRSA therapy. A positive result may indicate colonization with MRSA and must be correlated clinically. Blood Culture - Blood, Arm, Left [[id number]] (Normal) Collected: 07/23/251744 Lab Status: Final result Specimen: Blood from Arm, Left Updated: 07/28/251945 Blood Culture No growth at 5 days Narrative: Less than seven (7) mL's of blood was collected. Insufficient quantity may yield false negative results. Blood Culture - Blood, Arm, Right [[id number]] (Normal) Collected: 07/23/251734 Lab Status: Final result [...] and treated with a Mepilex dressing. - [facility] Hospital delirium - History of hospital delirium, previously managed with seroquel - Continue PRN seroquel Total time spent: 75 minutes Time spent includes time reviewing chart, vtof-rd-bdxs time, counseling patient/family/caregiver, ordering medications/tests/procedures, communicating with other health child care coordinator, documenting clinical information in the electronic health [...] Yoli Moreira MD 07/31/25 Patient or patient security systems sales representative verbalized consent for the use [...] elderly white female; resting in bed HEENT: [place] conjunctivae, MMM Lungs: Normal respiratory effort Ext: motor intact; left great toe necrosis; no palpable left pedals Neuro: Follows simple commands Psych: Apropriate mood ?baseline memory loss? Relevant Results: Imaging Results (Last 48 Hours) No results found for the last 48 hours. Lab Results (last 48 hours) Procedure Component Value Units Date/Time Basic Metabolic Panel [[id number]] (Abnormal) Collected: 08/01/25 07 Specimen: Blood Updated: [...] race as a factor CBC & Differential [[id number]] (Abnormal) Collected: 08/01/25722 Specimen: Blood Updated: 08/01/25758 Narrative: The following orders were created for panel order CBC & Differential. Procedure Abnormality Status --------- ------ CBC Auto Differential[[id number]] Abnormal Final result Please view results for these tests on the individual orders. CBC Auto Differential [[id number]] (Abnormal) Collected: 08/01/25722 Specimen: Blood Updated: 08/01/25758 [...] 0.07 10*3/mm3 nRBC 0.0 /100 WBC aPTT [[id number]] (Abnormal) Collected: 07/31/25 2252 Specimen: Blood Updated: 08/01/25 0047 PTT 34.8 seconds Narrative: PTT = The equivalent PTT values for the therapeutic range of heparin levels at 0.3 to 0.5 U/ml are 60 to 70 seconds. Heparin Anti-Xa [[id number]] (Normal) Collected: 07/31/251614 Specimen: Blood from Arm, Right Updated: 07/31/251634 Heparin Anti-Xa (UFH) 0.31 IU/ml Protime-INR [[id number]] (Normal) Collected: 07/31/251614 Specimen: Blood from Arm, Right Updated: 07/31/251634 Protime 14.2 Seconds INR 1.04 aPTT [[id number]] (Abnormal) Collected: 07/31/251614 Specimen: Blood from Arm, Right Updated: 07/31/25 163 PTT 35.2 seconds Narrative: PTT = The equivalent PTT values for the therapeutic range of heparin levels at 0.3 to 0.5 U/ml are 60 to 70 seconds. Comprehensive Metabolic Panel [[id number]] (Abnormal) Collected: 07/31/25 1437 Specimen: Blood Updated: [...] include race as a factor C-reactive Protein [[id number]] (Abnormal) Collected: 07/31/251436 Specimen: Blood Updated: 07/31/25 152 C-Reactive Protein 2.78 mg/dL Digoxin Level [[id number]] (Normal) Collected: 07/31/251436 Specimen: Blood Updated: 07/31/25 152 Digoxin 1.12 ng/mL Narrative: Results may be falsely increased if patient taking Biotin. Extra Tubes [[id number]] Collected: 07/31/251436 Specimen: Blood, Venous Line Updated: 07/31/251500 Narrative: The following orders were created for panel order Extra Tubes. Procedure Abnormality Status --------- ------ Gold Top - SST[[id number]] Final result Wheatley Top[[id number]] Final result Please view results for these tests on the individual orders. Gold Top - SST [[id number]] Collected: 07/31/251436 Specimen: Blood Updated: 07/31/251500 Extra Tube Hold for add-ons. Comment: Auto resulted. Wheatley Top [[id number]] Collected: 07/31/251436 Specimen: Blood Updated: 07/31/25 150 Extra Tube Hold for add-ons. Comment: Auto resulted. Sedimentation Rate [[id number]] (Abnormal) Collected: 07/31/251436 Specimen: Blood Updated: 07/31/251456 Sed Rate 73 mm/hr CBC Auto Differential [[id number]] (Abnormal) Collected: 07/31/251436 Specimen: Blood Updated: 07/31/251452 [...] critical limb ischemia - recent angioplasty in [place] 06/18/25 - multiple stents from iliac down to popliteal and including NERVE SPECIALIST - Diabetes mellitus type 2 with neuropathy [...] when medically ready. Anticipated Discharge Disposition (OT): jail facility * Norma Huitron, PT - 08/04/2025 [...] appropriate for discharge. Anticipated Discharge Disposition (PT): jail facility * Handy Prakash RN - 08/04/2025 [...] than operative extremity this AM. PRN PO [place] given x2, tolerated well, good response to [...] relating to operative nerve block. - PO [place] 5mg PRN given x2. Seroquel 12.5mg PO [...] Medication Review/Management: medications reviewed Taken 08/01/20252034 by Perilta Magallanes RN Medication Review/Management: medications reviewed Goal: [...] Taken 08/01/2025 1400 by Quique Byrd RN Body Position: position [...] Diversional Activities: television Taken 08/01/2025 1200 by Quique Byrd RN Diversional Activities: television [...] medications reviewed Taken 08/01/2025 1400 by Quique Bryd RN Medication Review/Management: medications reviewed Taken 08/01/2025 1200 by Quique Byrd RN Medication Review/Management: medications reviewed Taken 08/01/2025 0957 by Quique Byrd RN Medication Review/Management: medications reviewed Taken 08/01/2025 0800 by Quique Byrd RN Medication Review/Management: medications reviewed Goal: Maintenance of Behavioral Health Symptom Control Outcome: Progressing Intervention: Maintain Behavioral Health Symptom Control Recent Flowsheet Documentation Taken 08/01/2025 1750 by Quique Byrd supervisor lending activities Review/Management: medications reviewed Taken 08/01/2025 1600 by [...] Environment Recent Flowsheet Documentation Taken 08/02/2025424 by Perilta Magallanes RN Safety Promotion/Fall Prevention: clutter free [...] Review/Management: medications reviewed Taken 08/01/20252234 by Perlita Maglalanes RN Medication Review/Management: medications reviewed Taken 08/01/20252034 [...] incontinence pads utilized Taken 08/01/2025 0103 by Perliat Magallanes RN Body Position: foot of bed [...] Documentation Taken 08/01/2025 041 by Perlita Magallanes RNsash repairer Interventions: pain medication given Taken 08/01/2025 0103 by Perlita Magallanes RNsash repairer Interventions: pain medication given Taken 07/31/20252046 by Perlita Magallanes RNsash repairer Interventions: pain medication given Goal: Readiness for [...] weight shift assistance provided Head of Bed ([facility]) Positioning: HOB elevated Pressure Reduction Devices: heel offloading device utilized positioning supports utilized pressure-redistributing mattress utilized Skin Protection: incontinence pads utilized Taken 08/01/2025 0103 by Perlita Magallanes RN Activity Management: up to bedside commode Pressure Reduction Techniques: heels elevated off bed positioned off wounds weight shift assistance provided Head of Bed ([facility]) Positioning: HOB elevated Pressure Reduction Devices: heel offloading device utilized positioning supports utilized pressure-redistributing mattress utilized Skin Protection: incontinence pads utilized Taken 08/01/2025 0005 by Perlita Magallanes RN Activity Management: activity encouraged Pressure Reduction Techniques: heels elevated off bed positioned off wounds weight shift assistance provided Head of Bed ([facility]) Positioning: HOB elevated Pressure Reduction Devices: heel offloading device utilized positioning supports utilized pressure-redistributing mattress utilized Skin Protection: incontinence pads utilized Taken 07/31/2025 2240 by Perlita Magallanes RN Activity Management: activity encouraged Pressure Reduction Techniques: heels elevated off bed positioned off wounds weight shift assistance provided Head of Bed ([facility]) Positioning: HOB elevated Pressure Reduction Devices: heel offloading device utilized positioning supports utilized pressure-redistributing mattress utilized Skin Protection: incontinence pads utilized Taken 07/31/20252052 by Perlita Magallanes RN Activity Management: activity encouraged Pressure Reduction Techniques: heels elevated off bed weight shift assistance provided Head of Bed ([facility]) Positioning: HOB elevated Pressure Reduction Devices: heel [...] Documentation Taken 08/01/2025 0417 by Perlita Magallanes RNsash repairer Interventions: pain medication given Taken 08/01/2025 0103 by Perlita Magallanes RNsash repairer Interventions: pain medication given Taken 07/31/2025 204 by Perlita Magallanes RNsash repairer Interventions: pain medication given Intervention: Prevent or [...] Documentation Taken 08/01/2025 0417 by Perlita Magallanes RNsash repairer Interventions: pain medication given Taken 08/01/2025 0103 by Perlita Magallanes RNsash repairer Interventions: pain medication given Taken 07/31/2025 204 by Perlita Magallanes RNsash repairer Interventions: pain medication given Goal: Readiness for [...] weight shift assistance provided Head of Bed ([facility]) Positioning: [facility] elevated Pressure Reduction Devices: heel offloading device utilized positioning supports utilized pressure-redistributing mattress utilized Skin Protection: incontinence pads utilized Taken 08/01/2025 0318 by Perlita Magallanes RN Activity Management: activity encouraged Pressure Reduction Techniques: heels elevated off bed positioned off wounds weight shift assistance provided Head of Bed ([facility]) Positioning: [facility] elevated Pressure Reduction Devices: heel offloading device utilized positioning supports utilized pressure-redistributing mattress utilized Skin Protection: incontinence pads utilized Taken 08/01/2025 0230 by Perlita Magallanes RN Activity Management: activity encouraged Pressure Reduction Techniques: heels elevated off bed positioned off wounds weight shift assistance provided Head of Bed ([facility]) Positioning: [facility] elevated Pressure Reduction Devices: heel offloading device utilized positioning supports utilized pressure-redistributing mattress utilized Skin Protection: incontinence pads utilized Taken 08/01/2025 0103 by Perlita Magallanes RN Activity Management: up to bedside commode Pressure Reduction Techniques: heels elevated off bed positioned off wounds weight shift assistance provided Head of Bed ([facility]) Positioning: [facility] elevated Pressure Reduction Devices: heel offloading device utilized positioning supports utilized pressure-redistributing mattress utilized Skin Protection: incontinence pads utilized Taken 08/01/2025 0005 by Perlita Magallanes RN Activity Management: activity encouraged Pressure Reduction Techniques: heels elevated off bed positioned off wounds weight shift assistance provided Head of Bed ([facility]) Positioning: [facility] elevated Pressure Reduction Devices: heel offloading device utilized positioning supports utilized pressure-redistributing mattress utilized Skin Protection: incontinence pads utilized Taken 07/31/2025 2240 by Perlita Magallanes RN Activity Management: activity encouraged Pressure Reduction Techniques: heels elevated off bed positioned off wounds weight shift assistance provided Head of Bed ([facility]) Positioning: [facility] elevated Pressure Reduction Devices: heel offloading device [...] Documentation Taken 08/01/2025 0417 by Perlita Magallanes RNsash repairer Interventions: pain medication given Taken 08/01/2025 010 by Perlita Magallanes RNsash repairer Interventions: pain medication given Taken 07/31/20252046 by Perlita Magallanes RNsash repairer Interventions: pain medication given Intervention: Prevent or [...] toe amputation Staff: Surgeon(s): Junior Zhao MD Sizing Sponger: Jackson Barrios RN; India Lane RN; Desiree Helms RN Physician Strategy Consultant: Meron Swift PA-C Scrub Person: Shelton Best; Neda Oshea Anesthesia: General Estimated Blood Loss: minimal Implants: Implant Name Type Inv. Item Serial No. Siebel Administrator Lot No. LRB No. Used Action HEMOST ABS SURGICEL SNOW 1X2IN - [id number] Implant HEMOST ABS SURGICEL SNOW 1X2IN [employer] [id number] Left 1 Implanted CLIPAPPLR M/ ENDO LIGACLIP 9 3/8IN SM - [id number] Implant CLIPAPPLR M/ ENDO LIGACLIP 9 3/8IN [employer] ENDO SURGERY DIV OF J AND J 722D70 Left 1 Implanted CLIPAPPLR M/ ENDO LIGACLIP9 3/8IN MD - [id number] Implant CLIPAPPLR M/ ENDO LIGACLIP9 3/8IN [place] [employer] ENDO SURGERY DIV OF J AND J 718D34 Left 1 Implanted GRFT VASC PROPAT THNSTRCH [id number] - [id number] - [id number] Implant GRFT VASC PROPAT THNSTRCH [id number] [employer] Left 1 Implanted HEMOST ABS SURGICEL SNOW 1X2IN - [id number] Implant HEMOST ABS SURGICEL SNOW 1X2IN ETHICON [...] patient was recently in the hospital, at [facility], admitted on 07/23/2025, discharged 07/25/2025, [...] Component Value Units Date/Time CBC Auto Differential [[id number]] (Abnormal) Collected: 07/31/251436 Specimen: Blood Updated: 07/31/25 [...] nRBC 0.0 /100 WBC Comprehensive Metabolic Panel [[id number]] (Abnormal) Collected: 07/31/251436 Specimen: Blood Updated: 07/31/25 [...] include race as a factor Sedimentation Rate [[id number]] (Abnormal) Collected: 07/31/251436 Specimen: Blood Updated: 07/31/25 1457 Sed Rate 73 mm/hr C-reactive Protein [[id number]] (Abnormal) Collected: 07/31/251436 Specimen: Blood Updated: 07/31/25 1523 C-Reactive Protein 2.78 mg/dL Digoxin Level [[id number]] (Normal) Collected: 07/31/251436 Specimen: Blood Updated: 07/31/25 1523 Digoxin 1.12 ng/mL Narrative: Results may be falsely increased if patient taking Biotin. Heparin Anti-Xa [[id number]] (Normal) Collected: 07/31/251614 Specimen: Blood from Arm, Right Updated: 07/31/251634 Heparin Anti-Xa (UFH) 0.31 IU/ml Protime-INR [[id number]] (Normal) Collected: 07/31/251614 Specimen: Blood from Arm, Right Updated: 07/31/251634 Protime 14.2 Seconds INR 1.04 aPTT [[id number]] (Abnormal) Collected: 07/31/251614 Specimen: Blood from Arm, [...] Discharge Note Final Note: Received call from [facility] who advises [facility] is not taking [employer] and [facility] cannot accept at this time. Family request Referral to [facility] and if not accepted [facility]. Spoke to liasion for [facility] who cannot accept [employer] Medicare. Spoke to [facility] liaison who acceptedpatient to service for PT/OT and will evaluate need for SN. Patient plan is to discharge home with [facility] today via car with family to transport. Selected Continued Care - Admitted Since 07/31/2025 Destination No services have been selected for the patient. Durable Medical Equipment No services have been selected for the patient. Dialysis/Infusion No services have been selected for the patient. Home Medical Care Coordination complete. Service Provider Services Address Phone Fax Patient Preferred [facility] [address] [address] [phone] -- Therapy No services have been selected [...] HHC and agreeable to PT/OT services with [facility]. Isolation Precautions: No active isolations START PATIENT REGISTRATION INFORMATION Order Information Order Signing Physician: Neda Ocampo, DO Service Ordered RN?: No Service Ordered PT?: Yes Service Ordered OT?: Yes Service Ordered ST?: No Service Ordered MINE INSPECTOR FEDERAL?: No Service Ordered QUALITY CONTROL EXPERT?: No Following Physician: Alexis Anand MD Following Physician Overseeing Physician: Alexis Anand MD (Required for Residents Only) Agreeable to Follow ? Yes Date/Time of Call 08/07/25 14:29 EDT, Spoke with: Care Coordination Same Day SOC?: No Primary Care Physician: Alexsi Anand MD Primary Care Physician Primary Care Physician Address: [address] [place] [address] [address] [facility] [address] / [facility] [id number] Visit Instructions: N/A Service Discharge Location Type: Home Service Facility Name: N/A Service Floor Facility: N/A Service Room No: N/A Demographics Patient Last Name: Sera Patient First Name: Hattie Language/Communication Barrier: NO Service Address: [address] [place] [address] Service City: [place] Service State: [place] Service Zip: [address] Service Other Phone Numbers: Telephone Information: Emergency Contact: Extended Emergency Contact Information Primary Emergency Contact: LAKESHA DAVILA Address: [address] [place] [address] [place] Mobile Relation: Daughter Awning Finisher needed? No Secondary Emergency Contact: ESTELA SANTOS Mobile Relation: Daughter Awning Finisher needed? No Admission Information Admit Date: 07/31/2025 Patient Status at Discharge: Inpatient Admitting Diagnosis: Claudication [I73.9] Critical limb ischemia of left lower extremity [I70.222] Caregiver Information Caregiver First Name: LAKESHA Caregiver Last Name: GIOVANNI Caregiver Relationship to Patient: DAUGHTER Caregiver Caregiver Notes: ESTELA SANTOS, DAUGHTER [phone] [employer] List No END PATIENT REGISTRATION INFORMATION Start [...] * Therapy Treatment Note - Desiree Shearer, SOFTWARE DESIGN ENGINEER - 08/07/2025 8:43 AM EDT Images from [...] TOE AMPUTATION; Surgeon: Junior Zhao MD; Location: [facility] OR; Service:Vascular; Laterality: Left; FEMORAL POPLITEAL BYPASS Left 08/02/2025 Procedure: FEMORAL POPLITEAL BYPASS; Surgeon: Junior Zhao MD; Location: [facility] OR; Service: Vascular; Laterality: Left; General Information [...] differenced/t offloading shoe on L - User Aomr (r) = Recorded By, (t) = Taken By, (c) = Cosigned By Initials Name Provider Type Desiree Shearer PTA Physical Therapist Strategy Consultant Mobility Row Name 08/07/25931 Bed Mobility Supine-Sit Mills (Bed Mobility) verbal cues;minimum assist (75% patient effort);1 person assist - Assistive Device (Bed Mobility) head of bed elevated;bed rails;repositioning sheet - Comment, (Bed Mobility) assist needed at trunk to reach EOB - Row Name 08/07/25931 Transfers Comment, (Transfers) multiple verbal cues for hand and feet placement - Row Name 08/07/25931 Bed-Chair Transfer Bed-Chair Mills (Transfers) verbal cues;minimum assist (75% patient effort);moderate assist (50% patient effort);1 person assist - Assistive Device (Bed-Chair Transfers) walker, front-wheeled - Comment, (Bed-Chair Transfer) patient took steps to recliner then took seated rest break, then ambulated 4 steps forward - Row Name 08/07/25931 Sit-Stand Transfer Sit-Stand Mills (Transfers) verbal cues;minimum assist (75% patient effort);moderate assist (50% patient effort);1 person assist - Assistive Device (Sit-Stand Transfers) walker, front-wheeled - Comment, (Sit-Stand Transfer) cues for hand/feet placement and to maintain heel WB L LE - Row Name 08/07/25931 Gait/Stairs (Locomotion) Mills Level (Gait) verbal cues;minimum assist (75% patient [...] Provider Type Desiree Shearer PTA Physical Therapist Strategy Consultant Obj/Interventions Row Name 08/07/25 0941 Motor Skills [...] Provider Type Desiree Shearer PTA Physical Therapist Strategy Consultant Goals/Plan No documentation. Clinical Impression Row Name [...] By Initials Name Provider Type Desiree Shearer, TERLL Physical Therapist Strategy Consultant Outcome Measures Row Name 08/07/2544 How much [...] Provider Type Desiree Shearer PTA Physical Therapist Strategy Consultant Physical Therapy Education Title: PT OT WILLOW MACHINE TENDER Therapies (In Progress) Topic: Physical Therapy (In [...] 05/03/25 - Desiree Shearer PTA Physical Therapist Strategy Consultant PT MB 03/15/25 - Norma Huitron PT [...] Re-Cert Due Date 08/14/25 - Timed Charges 97438 - PT Therapeutic Exercise Minutes 10 - 59999 - Gait Training Minutes 13 - Total Minutes Timed Charges Total Minutes 23 - Total Minutes 23 - User Amor (r) = Recorded By, (t) = Taken By, (c) = Cosigned By Initials Name Provider Type Desiree Shearer PTA Physical Therapist Strategy Consultant Therapy Charges for Today Code Description Service Date Service Provider Modifiers Qty 71693472210 HC PT THER PROC EA 15 MIN 08/07/2025 Desiree Shearer PTA GP 1 31041262393 HC GAIT TRAINING EA 15 MIN 08/07/2025 Desiree Shearer PTA GP 1 PT G-Codes Outcome Measure Options: AM-PAC 6 Clicks Basic Mobility (PT) AM-PAC 6 Clicks Score (PT): 12 AM-PAC 6 Clicks Score (OT): 14 Desiree Shearer PTA 08/07/2025 * Case Management/Social Work - Rani Pereira RN - 08/05/2025 2:14 PM EDT [facility] Patient Name: Hattie Santos Today's Date: 08/05/2025 [...] Bed Mobility Bed Mobility supine-sit -KF Supine-Sit Mills (Bed Mobility) minimum assist (75% patient effort);1 person assist;verbal cues -KF Assistive Device (Bed Mobility) bed rails;head of bed elevated;repositioning sheet -KF Comment, (Bed Mobility) Increased time needed. Cues for sequence with assistance given at trunk andBLEs. - Row Name 08/04/25 110 Transfers Transfers sit-stand transfer;stand-sit transfer;toilet transfer - Row Name 08/04/25 110 Sit-Stand Transfer Sit-Stand Mills (Transfers) minimum assist (75% patient effort);2 person assist;verbal cues -KF Assistive Device (Sit-Stand Transfers) walker, front-wheeled -KF Comment, (Sit-Stand Transfer) x1 from EOB, x1 from BSC for seated rest break; cues for hand placement and maintaining LLE heel WB -KF Row Name 08/04/25 110 Stand-Sit Transfer Stand-Sit Mills (Transfers) minimum assist (75% patient effort);2 person assist;verbal cues -KF Assistive Device (Stand-Sit Transfers) walker, front-wheeled -KF Row Name 08/04/25 110 Toilet Transfer Type (Toilet Transfer) sit-stand;stand-sit -KF Mills Level (Toilet Transfer) minimum assist (75% patient [...] Name 08/04/25 110 Lower Body Dressing Assessment/Training Mills Level (Lower Body Dressing) don;socks;shoes/slippers;dependent (less than 25% patient effort) - Position (Lower Body Dressing) edge of bed sitting - Row Name 08/04/25 110 Self-Feeding Assessment/Training Mills Level (Feeding) liquids to mouth;independent - Position [...] (OT) Activity/Assistive Device (Transfer Goal 1, OT) xuk-nw-ozipz/puuge-ux-ret;commode -KF Mills Level/Cues Needed (Transfer Goal 1, OT) contact guard required -KF Time Frame (Transfer Goal 1, OT) oysterman goal (LTG);10 days -KF Progress/Outcome (Transfer Goal 1, OT) new goal -KF Row Name 08/04/25 110 Dressing Goal 1 (OT) Activity/Device (Dressing Goal 1, OT) lower body dressing -KF Mills/Cues Needed (Dressing Goal 1, OT) minimum assist (75% or more patient effort) -KF Time Frame (Dressing Goal 1, OT) short term goal (STG);5 days -KF Strategies/Barriers (Dressing Goal 1, OT) L offloading shoe -KF Progress/Outcome (Dressing Goal 1, OT) new goal -KF Row Name 08/04/25 110 Toileting Goal 1 (OT) Activity/Device (Toileting Goal 1, OT) adjust/manage clothing;perform perineal hygiene -KF Mills Level/Cues Needed (Toileting Goal 1, OT) set-up required -KF Time Frame (Toileting Goal 1, OT) retirement goal (LTG);10 days -KF Progress/Outcome (Toileting Goal [...] Review/Discharge Plan (OT) Anticipated Discharge Disposition (OT) jail facility - Row Name 08/04/25 1106 Vital [...] Therapist Occupational Therapy Education Title: PT OT WILLOW MACHINE TENDER Therapies (In Progress) Topic: Occupational Therapy (In Progress) Point: ADL training (In Progress) Learning Progress Summary Patient Acceptance, E,TB, NR by at 08/04/2025 0950 Point: Precautions (In Progress) Learning Progress Summary Patient Acceptance, E,TB, NR by at 08/04/2025 0950 Point: Body mechanics (In Progress) Learning Progress Summary Patient Acceptance, E,TB, NR by at 08/04/2025 0950 User Amor Initials Effective Dates Name Provider Type [facility] 05/25/23 - Hailey Barrios OT Occupational Therapist [...] Description Service Date Service Provider Modifiers Qty [id number] OT EVAL MOD COMPLEXITY 4 08/04/2025 Hailey [...] its/self-awareness;judgment;problem-solving/reasoning;safety precaution awareness;safety precautionfollow-through;sequencing abilities -MB User Maor (r) = Recorded By, (t) = Taken By, (c) = Cosigned By Initials Name Provider Type Norma Mayers, PT Physical Therapist Mobility Row Name 08/04/25 1246 Bed Mobility Bed Mobility supine-sit;scooting/bridging -MB Scooting/Bridging Mills (Bed Mobility) 1 person assist;verbal cues to scoot anteriorly toward EOB in seated position -MB Supine-Sit Mills (Bed Mobility) minimum assist (75% patient effort);1 [...] Row Name 08/04/25 1246 Sit-Stand Transfer Sit-Stand Mills (Transfers) minimum assist (75% patient effort);2 person assist;verbal cues -MB Assistive Device (Sit-Stand Transfers) walker, front-wheeled -MB Comment, (Sit-Stand Transfer) Patient moved to stand x 2 reps during session (once from EOB and once from BSC). Patient requiring verbal cues for proper hand placement and LLE heel weight-bearing. - Row Name 08/04/25 1246 Gait/Stairs (Locomotion) Mills Level (Gait) minimum assist (75% patient effort);2 [...] PT Physical Therapist Goals/Plan Row Name 08/04/25 6093 Bed Mobility Goal 1 (PT) Activity/Assistive Device (Bed Mobility Goal 1, PT) bed mobility activities, all -MB Mills Level/Cues Needed (Bed Mobility Goal 1, PT) standby assist - Time Frame (Bed Mobility Goal 1, PT) short term goal (STG);1 week - Row Name 08/04/25 1308 Transfer Goal 1 (PT) Activity/Assistive Device (Transfer Goal 1, PT) rrr-im-punkw/sbzeb-ke-lqd;walker, rolling -MB Mills Level/Cues Needed (Transfer Goal 1, PT) standby assist -MB Time Frame (Transfer Goal 1, PT) oysterman goal (LTG);2 weeks -MB Row Name 08/04/25 1304 Gait Training Goal 1 (PT) Activity/Assistive Device (Gait Training Goal 1, PT) gait (walking locomotion);walker, rolling -MB Mills Level (Gait Training Goal 1, PT) standby assist -MB Distance (Gait Training Goal 1, PT) 50 feet -MB Time Frame (Gait Training Goal 1, PT) oysterman goal (LTG);2 weeks -MB Row Name 08/04/25 1308 Stairs Goal 1 (PT) Activity/Assistive Device (Stairs Goal 1, PT) ascending stairs;descending stairs -MB Mills Level/Cues Needed (Stairs Goal 1, PT) minimum assist (75% or more patient effort) -MB Number of Stairs (Stairs Goal 1, PT) 1 step -MB Time Frame (Stairs Goal 1, PT) retirement goal (LTG);2 weeks -MB Row Name 08/04/25 8859 Therapy Assessment/Plan (PT) Planned Therapy Interventions (PT) balance training;bed mobility training;gait training;home exercise program;neuromuscular re-education;orthotic fitting/training;patient/family education;postural re-education;ROM (range of motion);stair training;strengthening;stretching;transfer training;wheelchair management/propulsion training - User Amor (r) = Recorded By, (t) = Taken By, (c) = Cosigned By Initials Name Provider Type Norma Mayers, PT Physical Therapist Clinical Impression Row Name 08/04/25 1258 Pain Pretreatment Pain Rating 0/10 - no [...] appropriate for discharge. -MB Row Name 08/04/25 1258 Therapy Assessment/Plan (PT) Patient/Family Therapy Goals Statement (PT) To get better. -MB Rehab Potential (PT) good -MB Criteria for Skilled Interventions Met (PT) yes;meets criteria;skilled treatment is necessary -MB Therapy Frequency (PT) daily -MB Predicted Duration of Therapy Intervention (PT) 2 weeks -MB Row Name 08/04/25 1254 Vital Signs Pre Systolic BP Rehab 123 [...] Patient Position Sitting -MB Row Name 08/04/25 1251 Positioning and Restraints Pre-Treatment Position in bed -MB Post Treatment Position chair -MB In Chair notified nsg;reclined;sitting;call light within reach;encouraged to call for assist;exit alarm on;with family/caregiver;waffle cushion;legs elevated;heels elevated -MB User Amor (r) = Recorded By, (t) = Taken By, (c) = Cosigned By Initials Name Provider Type Norma Mayers, PT Physical Therapist Outcome Measures Row Name 08/04/25 3692 How much help from another person do [...] Therapist Physical Therapy Education Title: PT OT WILLOW MACHINE TENDER Therapies (In Progress) Topic: Physical Therapy (In [...] Description Service Date Service Provider Modifiers Qty [id number] HC PT EVAL MOD COMPLEXITY 4 08/04/2025 Norma Huitron, PT GP 1 PT G-Codes Outcome Measure Options: AM-PAC 6 Clicks Basic Mobility (PT) AM-PAC 6 Clicks Score (PT): 16 AM-PAC 6 Clicks Score (OT): 14 PT Discharge Summary Anticipated Discharge Disposition (PT): jail facility Norma Huitron PT 08/04/2025 [1] Patient Active Problem [...] 08/01/2025 4:27 PM EDT [facility] Patient Name: Hattie Santos Today's Date: 08/01/2025 [...] with family Patient/Family Anticipated Services at Transition case operatorquantitative manager Anticipated family or friend will provide Discharge Needs Assessment Equipment Currently Used at Home glucometer;nebulizer Discharge Plan Row Name 08/01/25 5455 Plan Plan Home Patient/Family in Agreement with Plan yes Plan Comments Ms. Santos is confused. Information taken from her granddaughter/POA Afua Melton. Ms. Santos lives in [facility]. Her adult son and adult daughter live with her. Ms. Santos has [facility] Medicare insurance. She uses [facility] to get her prescriptions filled. Her [...] Reason for Consult discharge planning Preferred Language Omani Contact Information Permission Granted to Share Info With case operatorprogram project manager Information Obtained for case operatorreal estate sales manager Status Row Name 08/01/25 1617 Functional [...] Description 09/16/2025 10:30 AM EST Office Visit [facility] [address] [facility] [address] [place] [address] Melissa Briceño APRN [address] [facility] [address] [place] [address] [id number] Scheduled Orders Name Type Priority Associated Diagnoses [...] PA to assist for this case, [facility] FEMORAL POPLITEAL BYPASS 08/02/2025 2:10 PM EDT Peripheral artery disease Critical limb ischemia of left lower extremity Special Needs He will need a PA to assist for this case, FIRST [facility] TYPE AND SCREEN STAT 08/02/2025 1:30 [...] - 10.80 10*3/mm3 08/07/2025 7:10 AM EDT [facility] RBC 3.12(L) 3.77 - 5.28 10*6/mm3 08/07/2025 7:10 AM EDT [facility] Hemoglobin 8.9(L) 12.0 - 15.9 g/dL 08/07/2025 7:10 AM EDT [facility] Hematocrit 28.3(L) 34.0 - 46.6 % 08/07/2025 7:10 AM EDT [facility] MCV 90.7 79.0 - 97.0 fL 08/07/2025 7:10 AM EDT [facility] MCH 28.5 26.6 - 33.0 pg 08/07/2025 7:10 AM EDT [facility] MCHC 31.4(L) 31.5 - 35.7 g/dL 08/07/2025 7:10 AM EDT [facility] RDW 12.7 12.3 - 15.4 % 08/07/2025 7:10 AM EDT [facility] RDW-SD 41.7 37.0 - 54.0 fl 08/07/2025 7:10 AM [facility] MPV 8.7 6.0 - 12.0 fL 08/07/2025 7:10 AM [facility] Platelets 475(H) 140 - 450 10*3/mm3 08/07/2025 7:10 AM [facility] Neutrophil % 63.4 42.7 - 76.0 % 08/07/2025 7:10 AM [facility] Lymphocyte % 21.8 19.6 - 45.3 % 08/07/2025 7:10 AM [facility] Monocyte % 11.8 5.0 - 12.0 % 08/07/2025 7:10 AM [facility] Eosinophil % 2.3 0.3 - 6.2 % 08/07/2025 7:10 AM [facility] Basophil % 0.2 0.0 - 1.5 % 08/07/2025 7:10 AM [facility] Immature Grans % 0.5 0.0 - 0.5 % 08/07/2025 7:10 AM [facility] Neutrophils, Absolute 8.41(H) 1.70 - 7.00 10*3/mm3 08/07/2025 7:10 AM [facility] Lymphocytes, Absolute 2.89 0.70 - 3.10 10*3/mm3 08/07/2025 7:10 AM [facility] Monocytes, Absolute 1.56(H) 0.10 - 0.90 10*3/mm3 08/07/2025 7:10 AM [facility] Eosinophils, Absolute 0.31 0.00 - 0.40 10*3/mm3 08/07/2025 7:10 AM [facility] Basophils, Absolute 0.03 0.00 - 0.20 10*3/mm3 08/07/2025 7:10 AM [facility] Immature Grans, Absolute 0.07(H) 0.00 - 0.05 10*3/mm3 08/07/2025 7:10 AM EDT [facility] nRBC 0.0 0.0 - 0.2 /100 WBC 08/07/2025 7:10 AM EDT [facility] Blood Venipuncture / Unknown 08/07/2025 6:48 AM EDT 08/07/2025 7:00 AM EDT us Rocky Garcia MD LAB BLOOD ORDERABLES F inal Result [facility]
[address] [place] [address], * (ABNORMAL) Basic Metabolic Panel (08/06/2025 10:56 AM EDT) Glucose 124(H) 65 - 99 mg/dL 08/06/2025 12:15 PM EDT [facility] BUN 7.9(L) 8.0 - 23.0 mg/dL 08/06/2025 12:15 PM EDT [facility] Creatinine 0.54(L) 0.57 - 1.00 mg/dL 08/06/2025 12:15 PM EDT [facility] Sodium 133(L) 136 - 145 mmol/L 08/06/2025 12:15 PM EDT [facility] Potassium 4.4 3.5 - 5.2 mmol/L 08/06/2025 12:15 PM EDT [facility] Chloride 96(L) 98 - 107 mmol/L 08/06/2025 12:15 PM EDT [facility] CO2 32.5(H) 22.0 - 29.0 mmol/L 08/06/2025 12:15 PM EDT [facility] Calcium 8.5(L) 8.6 - 10.5 mg/dL 08/06/2025 12:15 PM EDT [facility] BUN/Creatinine Ratio 14.6 7.0 - 25.0 08/06/2025 12:15 PM EDT [facility] Anion Gap 4.5(L) 5.0 - 15.0 mmol/L 08/06/2025 12:15 PM EDT [facility] eGFR 90.9 >60.0 mL/min/1.7 3 08/06/2025 12:15 PM EDT [facility] Blood Venipuncture / Unknown 08/06/2025 10:56 AM EDT 08/06/2025 11:59 AM EDT [facility] - 08/06/2025 12:15 PM EDT GFR [...] Ocampo DO LAB BLOOD ORDERABLES Final Result [facility]
[address] [place] [address], * (ABNORMAL) CBC (No Diff) (08/06/2025 10:56 AM EDT) WBC 10.16 3.40 - 10.80 10*3/mm3 08/06/2025 11:20 AM EDT [facility] RBC 3.22(L) 3.77 - 5.28 10*6/mm3 08/06/2025 11:20 AM EDT [facility] Hemoglobin 9.2(L) 12.0 - 15.9 g/dL 08/06/2025 11:20 AM EDT [facility] Hematocrit 29.6(L) 34.0 - 46.6 % 08/06/2025 11:20 AM EDT [facility] MCV 91.9 79.0 - 97.0 fL 08/06/2025 11:20 AM EDT [facility] MCH 28.6 26.6 - 33.0 pg 08/06/2025 11:20 AM EDT [facility] MCHC 31.1(L) 31.5 - 35.7 g/dL 08/06/2025 11:20 AM EDT [facility] RDW 12.7 12.3 - 15.4 % 08/06/2025 11:20 AM EDT [facility] RDW-SD 42.1 37.0 - 54.0 fl 08/06/2025 11:20 AM EDT [facility] MPV 8.8 6.0 - 12.0 fL 08/06/2025 11:20 AM EDT [facility] Platelets 452(H) 140 - 450 10*3/mm3 08/06/2025 11:20 AM EDT [facility] Blood Venipuncture / Unknown 08/06/2025 10:56 AM EDT 08/06/2025 11:16 AM EDT Neda Ocampo DO LAB BLOOD ORDERABLES Final Result Performing Organization Address City/[facility]/ZIP Co de Phone Number [facility]
[address] [place] [address], * (ABNORMAL) Heparin Anti-Xa (08/05/2025 12:27 PM EDT) Heparin Anti-Xa (UFH) 0.10(L) 0.30 - 0.70 IU/ml 08/05/2025 1:39 PM EDT [facility] Blood Venipuncture / Unknown 08/05/2025 12:27 PM EDT 08/05/2025 1:08 PM EDT Ulises Bonilla [facility] LAB BLOOD ORDERABLES Final Res ult [facility]
[address] [place] [address], * (ABNORMAL) Heparin Anti-Xa (08/05/2025 4:32 AM EDT) [facility] Heparin Anti-Xa (UFH) 0.24(L) 0.30 - 0.70 IU/ml 08/05/2025 5:42 AM EDT [facility] Blood Venipuncture / Unknown 08/05/2025 4:32 AM EDT 08/05/2025 5:05 AM EDT Ulises Bonilla [facility] LAB BLOOD ORDERABLES Final Res ult [facility]
[address] [place] [address], * (ABNORMAL) CBC Auto Differential (08/05/2025 4:32 AM EDT) [facility] WBC 10.01 3.40 - 10.80 10*3/mm3 08/05/2025 5:17 AM EDT [facility] RBC 3.20(L) 3.77 - 5.28 10*6/mm3 08/05/2025 5:17 AM EDT [facility] Hemoglobin 9.1(L) 12.0 - 15.9 g/dL 08/05/2025 5:17 AM EDT [facility] Hematocrit 29.0(L) 34.0 - 46.6 % 08/05/2025 5:17 AM EDT [facility] MCV 90.6 79.0 - 97.0 fL 08/05/2025 5:17 AM EDT [facility] MCH 28.4 26.6 - 33.0 pg 08/05/2025 5:17 AM EDT [facility] MCHC 31.4(L) 31.5 - 35.7 g/dL 08/05/2025 5:17 AM EDT [facility] RDW 12.9 12.3 - 15.4 % 08/[facility] 5[facility] RDW-SD 42.7 37.0 - 54.0 fl 08/05/2025 5:17 AM [facility] MPV 9.0 6.0 - 12.0 fL 08/05/2025 5:17 [facility] Platelets 443 140 - 450 10*3/mm3 08/05/2025 5:17 [facility] Neutrophil % 51.8 42.7 - 76.0 % 08/05/2025 5:17 AM [facility] Lymphocyte % 31.4 19.6 - 45.3 % 08/05/2025 5:17 AM [facility] Monocyte % 14.3(H) 5.0 - 12.0 % 08/05/2025 5:17 AM [facility] Eosinophil % 1.7 0.3 - 6.2 % 08/05/2025 5:17 [facility] Basophil % 0.3 0.0 - 1.5 % 08/05/2025 5:17 AM [facility] Immature Grans % 0.5 0.0 - 0.5 % 08/05/2025 5:17 AM [facility] Neutrophils, Absolute 5.19 1.70 - 7.00 10*3/mm3 08/05/2025 5:17 AM [facility] Lymphocytes, Absolute 3.14(H) 0.70 - 3.10 10*3/mm3 08/05/2025 5:17 [facility] Monocytes, Absolute 1.43(H) 0.10 - 0.90 10*3/mm3 08/05/2025 5:17 [facility] Eosinophils, Absolute 0.17 0.00 - 0.40 10*3/mm3 08/05/2025 5:17 [facility] Basophils, Absolute 0.03 0.00 - 0.20 10*3/mm3 08/05/2025 5:17 AM EDT [facility] Immature Grans, Absolute 0.05 0.00 - 0.05 10*3/mm3 08/05/2025 5:17 AM EDT [facility] nRBC 0.0 0.0 - 0.2 /100 WBC 08/05/2025 5:17 AM EDT [facility] Blood Venipuncture / Unknown 08/05/2025 4:32 AM EDT 08/05/2025 5:05 AM EDT Rocky Garcia MD LAB BLOOD ORDERABLES F inal Result [facility]
[address] [place] [address], * (ABNORMAL) Basic Metabolic Panel (08/05/2025 4:32 AM EDT) Glucose 96 65 - 99 mg/dL 08/05/2025 5:49 AM EDT [facility] BUN 8.9 8.0 - 23.0 mg/dL 08/05/2025 5:49 AM EDT [facility] Creatinine 0.48(L) 0.57 - 1.00 mg/dL 08/05/2025 5:49 AM EDT [facility] Sodium 134(L) 136 - 145 mmol/L 08/05/2025 5:49 AM EDT [facility] Potassium 4.3 3.5 - 5.2 mmol/L 08/05/2025 5:49 AM EDT [facility] Chloride 100 98 - 107 mmol/L 08/05/2025 5:49 AM EDT [facility] CO2 27.6 22.0 - 29.0 mmol/L 08/05/2025 5:49 AM EDT [facility] Calcium 8.4(L) 8.6 - 10.5 mg/dL 08/05/2025 5:49 AM EDT [facility] BUN/Creatinine Ratio 18.5 7.0 - 25.0 08/05/2025 5:49 AM EDT [facility] Anion Gap 6.4 5.0 - 15.0 mmol/L 08/05/2025 5:49 AM EDT [facility] eGFR 93.5 >60.0 mL/min/1.7 3 08/05/2025 5:49 AM EDT [facility] Blood Venipuncture / Unknown 08/05/2025 4:32 AM EDT 08/05/2025 5:03 AM EDT Narrative [facility] - 08/05/2025 5:49 AM EDT [...] not include race as a factor us Rocky Garcia MD LAB BLOOD ORDERABLES F inal Result [facility]
[address] [phone] * (ABNORMAL) Heparin Anti-Xa (08/04/2025 9:18 PM EDT) Heparin Anti-Xa (UFH) 0.10(L) 0.30 - 0.70 IU/ml 08/04/2025 9:47 PM EDT [facility] Blood Venipuncture / Unknown 08/04/2025 9:18 PM EDT 08/04/2025 9:27 PM EDT Rocky Garcia MD LAB BLOOD ORDERABLES F inal Result [facility]
[address] [place] [address], * (ABNORMAL) CBC Auto Differential (08/04/2025 4:12 AM EDT) [facility] Signature WBC 10.43 3.40 - 10.80 10*3/mm3 08/04/2025 4:35 AM EDT [facility] RBC 3.08(L) 3.77 - 5.28 10*6/mm3 08/04/2025 4:35 AM EDT [facility] Hemoglobin 8.7(L) 12.0 - 15.9 g/dL 08/04/2025 4:35 AM EDT [facility] Hematocrit 27.6(L) 34.0 - 46.6 % 08/04/2025 4:35 AM EDT [facility] MCV 89.6 79.0 - 97.0 fL 08/04/2025 4:35 AM EDT [facility] MCH 28.2 26.6 - 33.0 pg 08/04/2025 4:35 AM EDT [facility] MCHC 31.5 31.5 - 35.7 g/dL 08/04/2025 4:35 AM EDT [facility] RDW 13.0 12.3 - 15.4 % 08/04/2025 4:35 AM EDT [facility] RDW-SD 42.8 37.0 - 54.0 fl 08/04/2025 4:35 AM EDT [facility] MPV 8.9 6.0 - 12.0 fL 08/04/2025 4:35 AM EDT [facility] Platelets 405 140 - 450 10*3/mm3 08/04/2025 4:35 AM EDT [facility] Neutrophil % 61.8 42.7 - 76.0 % 08/04/2025 4:35 AM EDT [facility] Lymphocyte % 23.5 19.6 - 45.3 % 08/04/2025 4:35 AM EDT [facility] Monocyte % 12.8(H) 5.0 - 12.0 % 08/04/2025 4:35 AM EDT [facility] Eosinophil % 1.0 0.3 - 6.2 % 08/04/2025 4:35 AM EDT [facility] Basophil % 0.2 0.0 - 1.5 % 08/04/2025 4:35 AM EDT [facility] Immature Grans % 0.7(H) 0.0 - 0.5 % 08/04/2025 4:35 AM EDT [facility] Neutrophils, Absolute 6.45 1.70 - 7.00 10*3/mm3 08/04/2025 4:35 AM EDT [facility] Lymphocytes, Absolute 2.45 0.70 - 3.10 10*3/mm3 08/04/2025 4:35 AM EDT [facility] Monocytes, Absolute 1.34(H) 0.10 - 0.90 10*3/mm3 08/04/2025 4:35 AM EDT [facility] Eosinophils, Absolute 0.10 0.00 - 0.40 10*3/mm3 08/04/2025 4:35 AM EDT [facility] Basophils, Absolute 0.02 0.00 - 0.20 10*3/mm3 08/04/2025 4:35 AM EDT [facility] Immature Grans, Absolute 0.07(H) 0.00 - 0.05 10*3/mm3 08/04/2025 4:35 AM EDT [facility] nRBC 0.0 0.0 - 0.2 /100 WBC 08/04/2025 4:35 AM EDT [facility] Blood Structure of left upper limb / Unknown Venipuncture / Unknown 08/04/2025 4:12 AM EDT 08/04/2025 4:31 AM EDT us Marlon Pavel FLYNN LAB BLOOD ORDERABLES Final Res ult [facility]
[address] [place] [address], * Phosphorus (08/04/2025 4:12 AM EDT) Phosphorus 2.7 2.5 - 4.5 mg/dL 08/04/2025 5:01 AM EDT [facility] Blood Structure of left upper limb / Unknown Venipuncture / Unknown 08/04/2025 4:12 AM EDT 08/04/2025 4:32 AM EDT Rocky Garcia MD LAB BLOOD ORDERABLES F inal Result Performing Organization Address City/[facility]/ZIP Co de Phone Number [facility]
[address] [place] [address], * Magnesium (08/04/2025 4:12 AM EDT) Magnesium 1.9 1.6 - 2.4 mg/dL 08/04/2025 5:01 AM EDT [facility] Blood Structure of left upper limb / Unknown Venipuncture / Unknown 08/04/2025 4:12 AM EDT 08/04/2025 4:32 AM EDT Rocky Garcia MD LAB BLOOD ORDERABLES F inal Result Performing Organization Address City/[facility]/ZIP Co de Phone Number [facility]
[address] [place] [address], * (ABNORMAL) Comprehensive Metabolic Panel (08/04/2025 4:12 AM EDT) Glucose 90 65 - 99 mg/dL 08/04/2025 5:01 AM EDT [facility] BUN 10.1 8.0 - 23.0 mg/dL 08/04/2025 5:01 AM EDT [facility] Creatinine 0.57 0.57 - 1.00 mg/dL 08/04/2025 5:01 AM EDT [facility] Sodium 134(L) 136 - 145 mmol/L 08/04/2025 5:01 AM [facility] Potassium 4.4 3.5 - 5.2 mmol/L 08/04/2025 5:01 AM [facility] Chloride 99 98 - 107 mmol/L 08/04/2025 5:01 AM [facility] CO2 27.2 22.0 - 29.0 mmol/L 08/04/2025 5:01 AM [facility] Calcium 8.2(L) 8.6 - 10.5 mg/dL 08/04/2025 5:01 AM [facility] Total Protein 5.2(L) 6.0 - 8.5 g/dL 08/04/2025 5:01 AM [facility] Albumin 2.8(L) 3.5 - 5.2 g/dL 08/04/2025 5:01 AM [facility] ALT (SGPT) 15 1 - 33 U/L 08/04/2025 5:01 AM [facility] AST (SGOT) 27 1 - 32 U/L 08/04/2025 5:01 AM [facility] Alkaline Phosphatase 49 39 - 117 U/L 08/04/2025 5:01 AM [facility] Total Bilirubin 0.2 0.0 - 1.2 mg/dL 08/04/2025 5:01 AM [facility] Globulin 2.4 gm/dL 08/04/2025 5:01 AM [facility] Comment:Calculated Result A/G Ratio 1.2 g/dL 08/04/2025 5:01 AM [facility] BUN/Creatinine Ratio 17.7 7.0 - 25.0 08/04/2025 5:01 AM [facility] Anion Gap 7.8 5.0 - 15.0 mmol/L 08/04/2025 5:01 AM [facility] eGFR 89.7 >60.0 mL/min/1.7 3 08/04/2025 5:01 AM [facility] Blood Structure of left upper limb / Unknown Venipuncture / Unknown 08/04/2025 4:12 AM EDT 08/04/2025 4:32 AM EDT Narrative [facility] - 08/04/2025 5:01 AM EDT GFR [...] MD LAB BLOOD ORDERABLES F inal Result [facility]
[address] [place] [address], * Telemetry Scan (08/03/2025 11:08 PM EDT) [facility] Onbase ECG ORDERABLES Final Result * (ABNORMAL) CBC Auto Differential (08/03/2025 4:34 AM EDT) WBC 11.48(H) 3.40 - 10.80 10*3/mm3 08/03/2025 4:44 AM EDT [facility] RBC 3.43(L) 3.77 - 5.28 10*6/mm3 08/03/2025 4:44 AM EDT [facility] Hemoglobin 9.8(L) 12.0 - 15.9 g/dL 08/03/2025 4:44 AM EDT [facility] Hematocrit 30.2(L) 34.0 - 46.6 % 08/03/2025 4:44 AM EDT [facility] MCV 88.0 79.0 - 97.0 fL 08/03/2025 4:44 [facility] MCH 28.6 26.6 - 33.0 pg 08/03/2025 4:44 [facility] MCHC 32.5 31.5 - 35.7 g/dL 08/03/2025 4:44 AM [facility] RDW 12.9 12.3 - 15.4 % 08/03/2025 4:44 [facility] RDW-SD 41.1 37.0 - 54.0 fl 08/03/2025 4:44 AM [facility] MPV 8.9 6.0 - 12.0 fL 08/03/2025 4:44 AM [facility] Platelets 360 140 - 450 10*3/mm3 08/03/2025 4:44 AM [facility] Neutrophil % 84.9(H) 42.7 - 76.0 % 08/03/2025 4:44 [facility] Lymphocyte % 8.5(L) 19.6 - 45.3 % 08/03/2025 4:44 AM [facility] Monocyte % 5.9 5.0 - 12.0 % 08/03/2025 4:44 AM [facility] Eosinophil % 0.0(L) 0.3 - 6.2 % 08/03/2025 4:44 [facility] Basophil % 0.1 0.0 - 1.5 % 08/03/2025 4:44 [facility] Immature Grans % 0.6(H) 0.0 - 0.5 % 08/03/2025 4:44 AM [facility] Neutrophils, Absolute 9.74(H) 1.70 - 7.00 10*3/mm3 08/03/2025 4:44 AM [facility] Lymphocytes, Absolute 0.98 0.70 - 3.10 10*3/mm3 08/03/2025 4:44 AM [facility] Monocytes, Absolute 0.68 0.10 - 0.90 10*3/mm3 08/03/2025 4:44 AM EDT [facility] Eosinophils, Absolute 0.00 0.00 - 0.40 10*3/mm3 08/03/2025 4:44 AM EDT [facility] Basophils, Absolute 0.01 0.00 - 0.20 10*3/mm3 08/03/2025 4:44 AM EDT [facility] Immature Grans, Absolute 0.07(H) 0.00 - 0.05 10*3/mm3 08/03/2025 4:44 AM EDT [facility] nRBC 0.0 0.0 - 0.2 /100 WBC 08/03/2025 4:44 AM EDT [facility] Blood Structure of left upper limb / Unknown Venipuncture / Unknown 08/03/2025 4:34 AM EDT 08/03/2025 4:41 AM EDT us Marlon [facility] MD LAB BLOOD ORDERABLES Final Res ult [facility]
[address] [place] [address], * (ABNORMAL) Basic Metabolic Panel (08/03/2025 4:34 AM EDT) Glucose 117(H) 65 - 99 mg/dL 08/03/2025 5:04 AM EDT [facility] BUN 11.3 8.0 - 23.0 mg/dL 08/03/2025 5:04 AM EDT [facility] Creatinine 0.49(L) 0.57 - 1.00 mg/dL 08/03/2025 5:04 AM EDT [facility] Sodium 129(L) 136 - 145 mmol/L 08/03/2025 5:04 AM EDT [facility] Potassium 4.5 3.5 - 5.2 mmol/L 08/03/2025 5:04 [facility] Chloride 96(L) 98 - 107 mmol/L 08/03/2025 5:04 AM EDT [facility] CO2 23.6 22.0 - 29.0 mmol/L 08/03/2025 5:04 AM EDT [facility] Calcium 8.4(L) 8.6 - 10.5 mg/dL 08/03/2025 5:04 AM EDT [facility] BUN/Creatinine Ratio 23.1 7.0 - 25.0 08/03/2025 5:04 AM EDT [facility] Anion Gap 9.4 5.0 - 15.0 mmol/L 08/03/2025 5:04 AM EDT [facility] eGFR 93.1 >60.0 mL/min/1.7 3 08/03/2025 5:04 AM EDT [facility] Blood Structure of left upper limb / Unknown Venipuncture / Unknown 08/03/2025 4:34 AM EDT 08/03/2025 4:40 AM EDT Narrative [facility] - 08/03/2025 5:04 AM EDT [...] not include race as a factor us Marlon Pavel FLY[facility] LAB BLOOD ORDERABLES Final Res ult [facility]
[address] [id number], * Telemetry Scan (08/02/2025 7:05 PM EDT) [facility] ECG ORDERABLES Final Result * Tissue Pathology Exam (08/02/2025 3:46 PM EDT) Case Report Surgical Pathology Report Case: [id number] Authorizing Provider: Junior Zhao MD Collected: 08/02/2025 03:46 PM Ordering Location: [facility] Received: 08/05/2025 07:46 AM OR Pathologist: Daniel Aj MD Specimens: 1) - Leg, Left, Left Popliteal Thrombus 2) - Toe, Left, Left Great Toe 08/06/2025 4:19 PM EDT [facility] Clinical Information Peripheral artery disease Critical limb ischemia of left lower extremity 08/06/2025 4:19 PM EDT [facility] Final Diagnosis 1. LEFT POPLITEAL THROMBUS, REMOVAL: Organizing hemorrhage, consistent with thrombus 2. LEFT GREAT TOE, DISARTICULATION: Toe with ulceration and necrosis No evidence of malignancy or acute osteomyelitis 08/06/2025 4:19 PM EDT [facility] at 1619 EDT Gross Description [...] bone reveals firm, dark red cut surfaces. Reservoir Caretaker sections are submitted as follows: 2A-en face proximal skin margin and proximal bone, submitted following decalcification 2B-discolored skin with underlying bone, submitted following decalcification. LDP 08/06/2025 4:19 PM EDT [facility] Microscopic Description The slides are reviewed and demonstrate histopathologic features supporting the above rendered diagnosis. 08/06/2025 4:19 PM EDT [facility] Tissue Structure of left lower limb / Unknown 08/02/2025 3:46 PM EDT 08/05/2025 7:46 AM EDT Comment:Left Popliteal Throm bus Tissue specimen (specimen) Structure of toe of left foot / Unknown 08/02/2025 4:21 PM EDT 08/05/2025 7:46 AM EDT Comment:Left Great Toe Junior Pavel FLYNN PATHOLOGY/CYTOLOGY ORDERABLES Final Result [facility]
[address] [place] [address], * Type & Screen (08/02/2025 1:30 PM EDT) ABO Type O 08/02/2025 2:31 PM EDT [facility] RH type Positive 08/02/2025 2:31 PM EDT [facility] Antibody Screen Negative 08/02/2025 2:31 PM EDT [facility] T&S Expiration Date 08/05/2025 11:59:59 PM 08/02/2025 2:31 PM EDT [facility] Blood 08/02/2025 1:30 PM EDT 08/02/2025 1:38 PM EDT Parker Bryan MD BLOOD BANK TEST ORDERABLES Ed ited Result - Final [facility]
[address] [place] [address], * (ABNORMAL) aPTT (08/02/2025 3:29 AM EDT) PTT 57.1(L) 60.0 - 90.0 seconds 08/02/2025 6:14 AM EDT [facility] Blood Venipuncture / Unknown 08/02/2025 3:29 AM EDT 08/02/2025 5:58 AM EDT [facility] - 08/02/2025 6:14 AM EDT PTT = The equivalent PTT values for the therapeutic range of heparin levels at 0.3 to 0.5 U/ml are 60 to 70 seconds. us [place] Sabrina Irene [facility] LAB BLOOD ORDERABLES Final Res ult Performing Organization Address [facility] Co de Phone Number [facility]
[address] [place] [address], * (ABNORMAL) aPTT (08/01/2025 7:44 PM EDT) PTT 52.0(L) 60.0 - 90.0 seconds 08/01/2025 8:28 PM EDT [facility] Blood Venipuncture / Unknown 08/01/2025 7:44 PM EDT 08/01/2025 8:08 PM EDT [facility] - 08/01/2025 8:28 PM EDT PTT = The equivalent PTT values for the therapeutic range of heparin levels at 0.3 to 0.5 U/ml are 60 to 70 seconds. us Annabelle Lewis [facility] LAB BLOOD ORDERABLES Final Res ult Performing Organization Address [facility] Co de Phone Number [facility]
[address] [place] [address], * (ABNORMAL) aPTT (08/01/2025 10:12 AM EDT) PTT 57.4(L) 60.0 - 90.0 seconds 08/01/2025 11:19 AM EDT [facility] Blood Venipuncture / Unknown 08/01/2025 10:12 AM EDT 08/01/2025 10:49 AM EDT [facility] - 08/01/2025 11:19 AM EDT PTT = The equivalent PTT values for the therapeutic range of heparin levels at 0.3 to 0.5 U/ml are 60 to 70 seconds. Annabelle Lewis [facility] LAB BLOOD ORDERABLES Final Res ult [facility]
[address] [place] [address], * ABO RH Specimen Verification (08/01/2025 7:23 AM EDT) ABO Type O 08/02/2025 2:47 PM EDT [facility] RH type Positive 08/02/2025 2:47 PM EDT [facility] Blood Venipuncture / Unknown 08/01/2025 7:23 AM EDT 08/02/2025 1:54 PM EDT Yoli Moreira MD BLOOD BANK TEST ORDERABLES Final Result Performing Organization Address City/[facility]/ZIP Co de Phone Number [facility]
[address] [place] [address], * (ABNORMAL) CBC Auto Differential (08/01/2025 7:23 AM EDT) WBC 17.15(H) 3.40 - 10.80 10*3/mm3 08/01/2025 7:59 AM EDT [facility] RBC 3.74(L) 3.77 - 5.28 10*6/mm3 08/01/2025 7:59 AM EDT [facility] Hemoglobin 10.5(L) 12.0 - 15.9 g/dL 08/01/2025 7:59 AM EDT [facility] Hematocrit 33.2(L) 34.0 - 46.6 % 08/01/2025 7:59 AM EDT [facility] MCV 88.8 79.0 - 97.0 fL 08/01/2025 7:59 AM EDT [facility] MCH 28.1 26.6 - 33.0 pg 08/01/2025 7:59 AM [facility] MCHC 31.6 31.5 - 35.7 g/dL 08/01/2025 7:59 AM [facility] RDW 12.9 12.3 - 15.4 % 08/01/2025 7:59 AM [facility] RDW-SD 42.0 37.0 - 54.0 fl 08/01/2025 7:59 AM [facility] MPV 9.1 6.0 - 12.0 fL 08/01/2025 7:59 AM [facility] Platelets 366 140 - 450 10*3/mm3 08/01/2025 7:59 AM [facility] Neutrophil % 73.9 42.7 - 76.0 % 08/01/2025 7:59 AM [facility] Lymphocyte % 14.3(L) 19.6 - 45.3 % 08/01/2025 7:59 AM [facility] Monocyte % 9.8 5.0 - 12.0 % 08/01/2025 7:59 AM [facility] Eosinophil % 1.4 0.3 - 6.2 % 08/01/2025 7:59 AM [facility] Basophil % 0.2 0.0 - 1.5 % 08/01/2025 7:59 AM [facility] Immature Grans % 0.4 0.0 - 0.5 % 08/01/2025 7:59 AM [facility] Neutrophils, Absolute 12.68(H) 1.70 - 7.00 10*3/mm3 08/01/2025 7:59 [facility] Lymphocytes, Absolute 2.45 0.70 - 3.10 10*3/mm3 08/01/2025 7:59 AM [facility] Monocytes, Absolute 1.68(H) 0.10 - 0.90 10*3/mm3 08/01/2025 7:59 AM [facility] Eosinophils, Absolute 0.24 0.00 - 0.40 10*3/mm3 08/01/2025 7:59 AM EDT [facility] Basophils, Absolute 0.03 0.00 - 0.20 10*3/mm3 08/01/2025 7:59 AM EDT [facility] Immature Grans, Absolute 0.07(H) 0.00 - 0.05 10*3/mm3 08/01/2025 7:59 AM EDT [facility] nRBC 0.0 0.0 - 0.2 /100 WBC 08/01/2025 7:59 AM EDT [facility] Blood Venipuncture / Unknown 08/01/2025 7:23 AM EDT 08/01/2025 7:52 AM EDT us Yoli Moreira MD LAB BLOOD ORDERABLES Final Resul t [facility]
[id number] [place] [address], * (ABNORMAL) Basic Metabolic Panel (08/01/2025 7:23 AM EDT) Glucose 102(H) 65 - 99 mg/dL 08/01/2025 8:27 AM EDT [facility] BUN 10.7 8.0 - 23.0 mg/dL 08/01/2025 8:27 AM EDT [facility] Creatinine 0.49(L) 0.57 - 1.00 mg/dL 08/01/2025 8:27 AM EDT [facility] Sodium 131(L) 136 - 145 mmol/L 08/01/2025 8:27 AM EDT [facility] Potassium 4.0 3.5 - 5.2 mmol/L 08/01/2025 8:27 AM EDT [facility] Chloride 98 98 - 107 mmol/L 08/01/2025 8:27 AM EDT [facility] CO2 24.7 22.0 - 29.0 mmol/L 08/01/2025 8:27 AM EDT [facility] Calcium 8.5(L) 8.6 - 10.5 mg/dL 08/01/2025 8:27 AM EDT [facility] BUN/Creatinine Ratio 21.8 7.0 - 25.0 08/01/2025 8:27 AM EDT [facility] Anion Gap 8.3 5.0 - 15.0 mmol/L 08/01/2025 8:27 AM EDT [facility] eGFR 93.1 >60.0 mL/min/1.7 3 08/01/2025 8:27 AM EDT [facility] Blood Venipuncture / Unknown 08/01/2025 7:23 AM EDT 08/01/2025 7:53 AM EDT Narrative [facility] - 08/01/2025 8:27 AM EDT [...] not include race as a factor us Yoli Moreira MD LAB BLOOD ORDERABLES Final Resul t [facility]
[id number] [place] [address], * (ABNORMAL) aPTT (07/31/2025 10:52 PM EDT) PTT 34.8(L) 60.0 - 90.0 seconds 08/01/2025 12:47 AM EDT [facility] Blood Venipuncture / Unknown 07/31/2025 10:52 PM EDT 08/01/2025 12:31 AM EDT [facility] - 08/01/2025 12:47 AM EDT PTT = The equivalent PTT values for the therapeutic range of heparin levels at 0.3 to 0.5 U/ml are 60 to 70 seconds. Bear Tobar [facility] LAB BLOOD ORDERABLES F inal Result Performing Organization Address City/[facility]/ZIP Co de Phone Number [facility]
[id number] [place] [address], * Telemetry Scan (07/31/2025 4:36 PM EDT) [facility] Onbase ECG ORDERABLES Final Result * (ABNORMAL) aPTT (07/31/2025 4:15 PM EDT) PTT 35.2(L) 60.0 - 90.0 seconds 07/31/2025 4:35 PM EDT [facility] Blood Structure of right upper limb / Unknown Venipuncture / Unknown 07/31/2025 4:15 PM EDT 07/31/2025 4:19 PM EDT [facility] - 07/31/2025 4:35 PM EDT PTT = The equivalent PTT values for the therapeutic range of heparin levels at 0.3 to 0.5 U/ml are 60 to 70 seconds. Yoli Moreira MD LAB BLOOD ORDERABLES Final Resul t Performing Organization Address [facility]/ZIP Co de Phone Number [facility]
[id number] [place] [address], * Protime-INR (07/31/2025 4:15 PM EDT) Protime 14.2 12.2 - 15.3 Seconds 07/31/2025 4:35 PM EDT [facility] INR 1.04 0.89 - 1.12 07/31/2025 4:35 PM EDT [facility] Blood Structure of right upper limb / Unknown Venipuncture / Unknown 07/31/2025 4:15 PM EDT 07/31/2025 4:19 PM EDT Yoli Moreira MD LAB BLOOD ORDERABLES Final Resul t Performing Organization Address City/[facility] Co de Phone Number [facility]
[address] [place] [address], * Heparin Anti-Xa (07/31/2025 4:15 PM EDT) Heparin Anti-Xa ([facility]) 0.31 0.30 - 0.70 IU/ml 07/31/2025 4:35 PM EDT [facility] Blood Structure of right upper limb / Unknown Venipuncture / Unknown 07/31/2025 4:15 PM EDT 07/31/2025 4:19 PM EDT us Yoli Moreira MD LAB BLOOD ORDERABLES Final Resul t Performing Organization Address [facility] de Phone Number [facility]
[address] [place] [address], * Telemetry Scan (07/31/2025 3:10 PM EDT) [facility] [facility] ECG ORDERABLES Final Result * [place] Top (07/31/2025 2:37 PM EDT) Extra Tube Hold for add-ons. 07/31/2025 3:01 PM EDT [facility] Comment:Auto resulted. Blood Line / Unknown 07/31/2025 2: 37 PM EDT 07/31/2025 2:52 PM EDT Gregg Munoz MD LAB BLOOD ORDER ONLY Ely l Result [facility]
[address] [place] [address], * Gold Top - SST (07/31/2025 2:37 PM EDT) Pathologist [facility] [place] Extra Tube Hold for add-ons. 07/31/2025 3:01 PM EDT [facility] Comment:Auto resulted. Blood Line / Unknown 07/31/2025 2: 37 PM EDT 07/31/2025 2:52 PM EDT Gregg Munoz MD LAB BLOOD ORDER ONLY Ely l Result Performing Organization Address [facility] Co de Phone Number [facility]
[address] [place] [address], * Digoxin Level (07/31/2025 2:37 PM EDT) [facility] Digoxin 1.12 0.60 - 1.20 ng/mL 07/31/2025 3:23 PM EDT [facility] Blood Venipuncture / Unknown 07/31/2025 2:37 PM EDT 07/31/2025 2:48 PM EDT Narrative [facility] - 07/31/2025 3:23 PM EDT Results may be falsely increased if patient taking Biotin. Gregg Munoz MD LAB BLOOD ORDERABLES Ely l Result Performing Organization Address City/[facility]/ZIP Co de Phone Number [facility]
[address] [place] [address], [place] [phone] * (ABNORMAL) C-reactive Protein (07/31/2025 2:37 PM EDT) [facility] C-Reactive Protein 2.78(H) 0.00 - 0.50 mg/dL 07/31/2025 3:23 PM EDT [facility] Blood Venipuncture / Unknown 07/31/2025 2:37 PM EDT 07/31/2025 2:48 PM EDT Gregg Munoz MD LAB BLOOD ORDERABLES Ely l Result [facility]
[address] [place] [address], * (ABNORMAL) Sedimentation Rate (07/31/2025 2:37 PM EDT) Sed Rate 73(H) 0 - 30 mm/hr 07/31/2025 2:57 PM EDT [facility] Blood Venipuncture / Unknown 07/31/2025 2:37 PM EDT 07/31/2025 2:48 PM EDT Gregg Munoz MD LAB BLOOD ORDERABLES Ely l Result [facility]
[address] [place] [address], * (ABNORMAL) Comprehensive Metabolic Panel (07/31/2025 2:37 PM EDT) Glucose 108(H) 65 - 99 mg/dL 07/31/2025 3:27 PM EDT [facility] BUN 13.9 8.0 - 23.0 mg/dL 07/31/2025 3:27 PM EDT [facility] Creatinine 0.55(L) 0.57 - 1.00 mg/dL 07/31/2025 3:27 PM EDT [facility] Sodium 132(L) 136 - 145 mmol/L 07/31/2025 3:27 PM EDT [facility] Potassium 4.5 3.5 - 5.2 mmol/L 07/31/2025 3:27 PM EDT [facility] Chloride 97(L) 98 - 107 mmol/L 07/31/2025 3:27 PM EDT [facility] CO2 24.3 22.0 - 29.0 mmol/L 07/31/2025 3:27 PM EDT [facility] Calcium 9.1 8.6 - 10.5 mg/dL 07/31/2025 3:27 PM T [facility] Total Protein 6.8 6.0 - 8.5 g/dL 07/31/2025 3:27 PM T [facility] Albumin 3.8 3.5 - 5.2 g/dL 07/31/2025 3:27 PM [facility] ALT (SGPT) 20 1 - 33 U/L 07/31/2025 3:27 PM T [facility] AST (SGOT) 30 1 - 32 U/L 07/31/2025 3:27 PM [facility] Alkaline Phosphatase 64 39 - 117 U/L 07/31/2025 3:27 PM T [facility] Total Bilirubin 0.2 0.0 - 1.2 mg/dL 07/31/2025 3:27 PM T [facility] Globulin 3.0 gm/dL 07/31/2025 3:27 PM [facility] Comment:Calculated Result A/G Ratio 1.3 g/dL 07/31/2025 3:27 PM [facility] BUN/Creatinine Ratio 25.3(H) 7.0 - 25.0 07/31/2025 3:27 PM [facility] Anion Gap 10.7 5.0 - 15.0 mmol/L 07/31/2025 3:27 PM [facility] eGFR 90.5 >60.0 mL/min/1.7 3 07/31/2025 3:27 PM [facility] Blood Venipuncture / Unknown 07/31/2025 2:37 PM EDT 07/31/2025 2:48 PM EDT [facility] 07/31/2025 3:27 PM EDT GFR [...] MD LAB BLOOD ORDERABLES Ely l Result [facility]
[address] [place] [address], * (ABNORMAL) CBC Auto Differential (07/31/2025 2:37 PM EDT) WBC 11.90(H) 3.40 - 10.80 10*3/mm3 07/31/2025 2:53 PM EDT [facility] RBC 4.21 3.77 - 5.28 10*6/mm3 07/31/2025 2:53 PM EDT [facility] Hemoglobin 12.2 12.0 - 15.9 g/dL 07/31/2025 2:53 PM EDT [facility] Hematocrit 37.0 34.0 - 46.6 % 07/31/2025 2:53 PM EDT [facility] MCV 87.9 79.0 - 97.0 fL 07/31/2025 2:53 PM EDT [facility] MCH 29.0 26.6 - 33.0 pg 07/31/2025 2:53 PM EDT [facility] MCHC 33.0 31.5 - 35.7 g/dL 07/31/2025 2:53 PM EDT [facility] RDW 12.8 12.3 - 15.4 % 07/31/2025 2:53 PM EDT [facility] RDW-SD 41.0 37.0 - 54.0 fl 07/31/2025 2:53 PM EDT [facility] MPV 8.7 6.0 - 12.0 fL 07/31/2025 2:53 PM EDT [facility] Platelets 404 140 - 450 10*3/mm3 07/31/2025 2:53 PM EDT [facility] Neutrophil % 62.4 42.7 - 76.0 % 07/31/2025 2:53 PM EDT [facility] Lymphocyte % 22.7 19.6 - 45.3 % 07/31/2025 2:53 PM EDT [facility] Monocyte % 9.4 5.0 - 12.0 % 07/31/2025 2:53 PM EDT [facility] Eosinophil % 4.9 0.3 - 6.2 % 07/31/2025 2:53 PM EDT [facility] Basophil % 0.3 0.0 - 1.5 % 07/31/2025 2:53 PM EDT [facility] Immature Grans % 0.3 0.0 - 0.5 % 07/31/2025 2:53 PM EDT [facility] Neutrophils, Absolute 7.42(H) 1.70 - 7.00 10*3/mm3 07/31/2025 2:53 PM EDT [facility] Lymphocytes, Absolute 2.70 0.70 - 3.10 10*3/mm3 07/31/2025 2:53 PM EDT [facility] Monocytes, Absolute 1.12(H) 0.10 - 0.90 10*3/mm3 07/31/2025 2:53 PM EDT [facility] Eosinophils, Absolute 0.58(H) 0.00 - 0.40 10*3/mm3 07/31/2025 2:53 PM EDT [facility] Basophils, Absolute 0.04 0.00 - 0.20 10*3/mm3 07/31/2025 2:53 PM EDT [facility] Immature Grans, Absolute 0.04 0.00 - 0.05 10*3/mm3 07/31/2025 2:53 PM EDT [facility] nRBC 0.0 0.0 - 0.2 /100 WBC 07/31/2025 2:53 PM EDT [facility] Blood Venipuncture / Unknown 07/31/2025 2:37 PM EDT 07/31/2025 2:48 PM EDT us Gregg Munoz MD LAB BLOOD ORDERABLES Ely l Result [facility]
[address] [place] [address], documented in this encounter Visit Diagnoses Diagnosis [...] 81 mg, Oral, Daily, First dose on Tue08/03/25 at 0900, Herbal/drug interaction: Avoid use with [...] Meals, First dose on Tue07/31/25 at 2000, Do not crush or chew the capsules. [...] 08/04/2025 10:58 PM EDT 3,000 Units heparin 29503 units/250 mL (100 units/mL) in 0.45 % NaCl infusion 19 Units/kg/hr 53.3 kg (10.127 mL/hr, rounded to 10.12 mL/hr), Intravenous, Titrated, Starting on Tue07/31/25 at 1612, Pharmacy dosing - Cardiac or Other NOT VTE - Boluses (No initial bolus), Indications: Cardiac or other NOT VTEIndications:Cardiac or other NOT VTE Rate Change (DUAL SIGN) 08/02/2025 7:19 AM EDT 19 Units/kg/hr 10.12 mL/hr New Bag 08/01/2025 9:21 PM EDT 18 Units/kg/hr 9.59 mL/h r Rate Change (DUAL SIGN) 08/01/2025 9:15 PM EDT 18 Units/kg /hr 9.59 mL/hr heparin 21551 units/250 mL (100 units/mL) in 0.45 % [...] PRN, Moderate Pain, Severe Pain, Starting on 08/05/25 at 0102, Based on patient request - [...] Daily, First dose on 08/05/25 at 1115 Given 08/07/2025 9:03 AM EDT [...] day, May switch to NS IV at KVO if renal / if indicated Restarted 08/02/2025 [...] with warm soapy water or use hand mold puller. 3. Open the tube of mupirocin 2%. [...] full anticoagulation 1455 (Given - Provider: Arlette Alonso RN) 0609 (Given - Provider: Olga Shannon, BRAVO)1740 (Given - Provider: Arlette Alonso RN) 0507 (Given - Provider: Bonny Jimenez RN) budesonide-formoterol (SYMBICORT) 160-4.5 MCG/ACT inhaler 2 puff 2 puff, Inhalation, 2 Times Daily - RT, First dose on Tue07/31/25 at 2130, Include Respiratory Treatment Education (SP) Shake well. Rinse mouth after use, do not swallow water. Send aerosols to pharmacy in ziplock bag for proper disposal. 1000 (Given - Provider: William Burnett REPRODUCER)2054 (Given - Provider: Lester Veloz, REPRODUCER) 0845 (Given - Provider: Holly Alvarez, REPRODUCER)2204 (Given - Provider: Kate Arroyo, REPRODUCER) 0742 (Given - Provider: Krystal Bustillos, REPRODUCER)1234 (Not Given - Provider: Krystal Bustillos, REPRODUCER - Reason: Patient not available) carvedilol (COREG) tablet 6.25 mg 6.25 mg, Oral, 2 Times Daily With Meals, First dose on Tue07/31/25 at 1999, Hold for SBP less than 100, DBP less than 60, or heart rate less than 50. If a dose is held, please contact the provider. Give with food. 0911 (Given - Provider: Arlette Alonso RN)1824 (Given - Provider: Arlette Alonso RN) 0903 (Given - Provider: Arlette Alonso RN)1740 (Given - Provider: Arlette Alonso RN) 0901 (Given - Provider: Lucy Salgado RN) clopidogrel (PLAVIX) tablet 75 mg 75 mg, Oral, Daily, First dose on Tue07/31/25 at 1999 0910 (Given - Provider: Arlette Alonso RN) 0903 (Given - Provider: Arlette Alonso RN) 0901 (Given - Provider: Lucy Salgado RN) digoxin [...] syringe Flush tube before and after administration ([facility]) 09 (Given - Provider: Arlette Alonso RN)1824 (Given - Provider: Arlette Alonso RN) 901 (Given - Provider: Arlette Alonso RN)174 (Given - Provider: Arlette Alonso RN) 900 (Given - Provider: Lucy Salgado RN) Hydrocortisone (Perianal) (ANUSOL-HC) 2.5 % rectal cream Rectal, 2 Times Daily, First dose on Tue08/05/25 at 1115 1454 (Given - Provider: Arlette Alonso RN)2044 (Given - Provider: Olga Shannon RN) 902 (Given - Provider: Arlette Alonso RN)2112 (Given - Provider: Bonny Jimenez RN) 902 (Given - Provider: Lucy Salgado RN) mupirocin (BACTROBAN) 2 % nasal ointment 1 Application 1 Application, Each Nare, 2 Times Daily, First dose on Tue08/03/25 at 0445, For 5 days, Administer for 5 days, even if patient transferred out of critical care. MUPIROCIN APPLICATION: 1. Place patient's bed at 30 degrees, if tolerated. 2. Wash your hands with warm soapy water or use hand mold puller. 3. Open the tube of mupirocin 2%. [...] together and massage gently for 60 seconds. ([facility]) 09 (Given - Provider: Arlette Alonso RN)2044 (Given - Provider: Olga Shannon RN) 902 (Given - Provider: Arlette Alonso RN)2112 (Given - Provider: Bonny Jimenez RN) 09 (Given - Provider: Lucy Salgado RN) pravastatin (PRAVACHOL) tablet 40 mg 40 [...] Arlette Alonso RN)2044 (Given - Provider: Olga Shannon, BRAVO) 902 (Given - Provider: Arlette Alonso RN)2112 (Given - Provider: Bonny Jimenez, BRAVO) 900 (Given - Provider: Lucy Salgado, RN) sodium chloride 0.9 % flush 10 mL 10 mL, Intravenous, Every 12 Hours Scheduled, First dose on Tue07/31/25 at 2100 09 (Given - Provider: Arlette Alonso RN)2044 (Given - Provider: Olga Shannon, BRAVO) 902 (Given - Provider: Arlette Alonso RN)2112 (Given - Provider: Bonny Jimenez, BRAVO) 901 (Given - Provider: Lucy Salgado, RN) tamsulosin (FLOMAX) 24 hr capsule 0.4 [...] Continuous Medication Order 08/05/2025 08/06/2025 08/07/2025 heparin 99821 units/250 mL (100 units/mL) in 0.45 % [...] Shannon, BRAVO) 0608 (Given - Provider: Olga Shannon RN)1201 (Given - Provider: Arlette Alonso RN) HYDROcodone-acetaminophen [...] CPOT 5-8 1207 (Given - Provider: Arlette Alonso, RN)2223 (Given - Provider: Olga Shannon, BRAVO) 0217 (Given - Provider: Bonny Jimenez RN) Magnesium Standard Dose Replacement - Follow Nurse / BPA Driven Protocol Open Order & [facility] Electrolyte Replacement Protocol Algorithm to View [...] BPA Driven Protocol Open Order & [facility] Electrolyte Replacement Protocol Algorithm to View [...] BPA Driven Protocol Open Order & [facility] Electrolyte Replacement Protocol Algorithm to View Details QUEtiapine (SEROquel) tablet 12.5 mg 12.5 mg, Oral, Every 12 Hours PRN, agitation, sleep, Starting on Tue07/31/25 at 1900, Caution: Look alike/sound alike drug alert 2102 (Given - Provider: Olga Shannon RN) sodium chloride 0.9 % flush 10 [...] documented as of this encounter Care Teams Wood Polisher Relationship Specialty Start Date End Date Alexis Anand MD [address] [facility] [address] [facility] [address] [place] [id number] PCP - General Family Medicine 07/23/25 documented as of this encounter
--- OUTSIDE RECORDS SUMMARY | 2025-08-02 12:48 | XMS_ITS | Encounter Summary ---
Author Organization [facility] Address [address] [place] [address] Care Team Providers Care Brass Instrument Repair Technician Name Role Phone Alexis Anand MD Primary Care Provider [phone] Reason for Visit * Reason Comments Wound Infection * Auth/Cert Specialty Diagnoses / Procedures Referred By Gumaro ferrera Referred To Contact Diagnoses Claudication Critical limb ischemia of left lower extremity Referral ID Status Reason Start Date Expiration Date Visits Re quested Visits Authorized [id number] 1 1 Encounter Details Date Type Department Care Team (Late st Contact Info) Description 08/02/2025 1:48 PM EDT - 08/02/2025 5:54 PM EDT Surgery [facility] [address] [facility] [place] [address] Junior Zhao MD [address] [place] [address] FEMORAL POPLITEAL BYPASS Social History Tobacco Use [...] and heating? Patient unable to answer 08/01/2025 [facility] - Occupational Stress [...] living? Patient unable to answer 08/01/2025 [facility] Utilities Answer Date Recorded In the past 12 months has th e cloud[employer], gas, oil, or water company threatened to [...] 12:58 PM EDT Karis August RN * Davis Suicide Severity Rating Scale (Screener/Recent Self-Report) Question [...] from the original note were not included. [facility] Medicine Services DISCHARGE SUMMARY Patient Name: [...] treatment after discharge. Follow-up provider: ALEXIS ANAND [[id number]] Reason/Clinical Findings: Critical limb ischemia of left lower extremity Describe mobility limitations that make leaving home difficult: [place], impaired functional mobility, impaired physical mobility Nursing/Therapeutic Services Requested: [facility] Occupational Therapy halfway orders: Medication [...] minutes on this discharge activity which included: vmbg-qo-vllznbgruogkz with the patient, reviewing the data in the system, coordination of the care with the nursing staff as well as consultants, documentation, and entering orders. documented in this encounter Discharge Instructions * Discharge Instructions* Lucy Salgado RN - 08/07/2025 2:18 PM EDT * Attachments The following attachments cannot be sent through Care Everywhere. * Apixaban Tablets ([place]izen [place]) * Trouble Peeing (Acute Urinary Retention) in Females: What to Know Lkzd-al-Ztis (Citizen Of [place]) * Poor Blood Flow (Peripheral Vascular Disease): What to Know ([place]izen [place]) * Tamsulosin Capsules (Citizen [place]) * Hydrocodone; Acetaminophen Capsules or Tablets (Citizen [place]) * Surgery to Increase Blood Flow Down the Legs From a Blocked Artery (Femoropopliteal Bypass): What to Expect (Citizen [place]) * Surgery to Remove a Toe (Toe Amputation): What to Know After ([place]izen [place]) documented in this encounter Medications at Time [...] Follow-up/Progress Note and Pressure Injury Stg 2+ [facility] Clinical Nutrition Assessment Subjective Subjective Information [...] TOE AMPUTATION; Surgeon: Junior Zhao MD; Location: [facility]; Service:Vascular; Laterality: Left; FEMORAL POPLITEAL BYPASS Left 08/02/2025 Procedure: FEMORAL POPLITEAL BYPASS; Surgeon: Junior Zhao MD; Location: [facility]; Service: Vascular; Laterality: Left; Current [...] RD 08/06/25 15:04 EDT * Virgie Rodriguez, PUFF IRON OPERATOR - 08/06/2025 1:42 PM EDT Images from [...] elderly white female; resting in bed HEENT: [employer] conjunctivae, MMM Lungs: Normal respiratory effort Ext: motor intact; left foot dressing removed; left groin and LLE medial aquacel dressings Neuro: Follows simple commands Psych: Apropriate mood, baseline memory loss Labs: Lab Results (last 24 hours) Procedure Component Value Units Date/Time Basic Metabolic Panel [[id number]] (Abnormal) Collected: 08/06/25 105 Specimen: Blood Updated: [...] race as a factor CBC (No Diff) [[id number]] (Abnormal) Collected: 08/06/25 105 Specimen: Blood Updated: [...] from iliac down to popliteal and including FLOOR TECH - s/p Left femoral to below-knee popliteal [...] from the original note were not included. [facility] Medicine Services PROGRESS NOTE Patient Name: Hattei Santos : 1940 Date of Admission: 07/31/2025 [...] AM-PAC 6 Clicks Score (PT): 12 (08/06/25 1245) CODE STATUS: Code Status and Medical Interventions: CPR (Attempt to Resuscitate); Full Support Ordered at: 07/31/25 1533 Code Status (Patient has no pulse and [...] RD 08/06/25 12:09 EDT * Aicha Costa, [facility] - 08/05/2025 2:11 PM EDT Pharmacy to Dose Heparin Infusion Note Hattie Santos is a 85 y.o. female receiving heparin infusion. Therapy for (VTE/Cardiac): Cardiac (AF) Patient Weight: 53.3kg Initial Bolus (Y/N): No Any Bolus (Y/N): Yes Signs or Symptoms of Bleeding: No; per cable repairer or Other (Not VTE) Initial Bolus: 60 [...] from the original note were not included. [facility] Medicine Services PROGRESS NOTE Patient Name: [...] elderly white female; resting in bed HEENT: [employer] conjunctivae, MMM Lungs: Normal respiratory effort Ext: motor intact; left foot dressing; left groin and LLE medial aquacel dressings Neuro: Follows simple commands Psych: Apropriate mood, baseline memory loss Labs: Lab Results (last 24 hours) Procedure Component Value Units Date/Time Heparin Anti-Xa [[id number]] (Abnormal) Collected: 08/05/25 1227 Specimen: Blood Updated: 08/05/25 1339 Heparin Anti-Xa (UFH) 0.10 IU/ml Tissue Pathology Exam [[id number]] Collected: 08/02/25 1546 Specimen: Tissue from Leg, Left; Tissue from Toe, Left Updated: 08/05/25 0746 Basic Metabolic Panel [[id number]] (Abnormal) Collected: 08/05/25431 Specimen: Blood Updated: 08/05/25 [...] include race as a factor Heparin Anti-Xa [[id number]] (Abnormal) Collected: 08/05/25431 Specimen: Blood Updated: 08/05/25 0542 Heparin Anti-Xa (UFH) 0.24 IU/ml CBC & Differential [[id number]] (Abnormal) Collected: 08/05/25431 Specimen: Blood Updated: 08/05/25516 Narrative: The following orders were created for panel order CBC & Differential. Procedure Abnormality Status --------- ------ CBC Auto Differential[[id number]] AbnormalFinal result Please view results for these tests on the individual orders. CBC Auto Differential [[id number]] (Abnormal) Collected: 08/05/25431 Specimen: Blood Updated: 08/05/25516 [...] 10*3/mm3 nRBC 0.0 /100 WBC Heparin Anti-Xa [[id number]] (Abnormal) Collected: 08/04/252117 Specimen: Blood Updated: 08/04/252146 [...] critical limb ischemia - recent angioplasty in [place] 06/18/25 - multiple stents from iliac down to popliteal and including FLOOR TECH - s/p Left femoral to below-knee popliteal [...] Garcia MD - 08/04/2025 12:58 PM EDT HUNTING AND FISHING GUIDE NOTE Hospital Day: 4 Ms. Hattie Santos, [...] Garcia MD - 08/03/2025 12:36 PM EDT HUNTING AND FISHING GUIDE NOTE Hospital Day: 3 Ms. Hattie Santos, [...] from the original note were not included. [facility] Medicine Services PROGRESS NOTE Patient Name: [...] to Resuscitate); Full Support Ordered at: 07/31/25 8768 Code Status (Patient has no pulse and is not breathing): CPR (Attempt to Resuscitate) Medical Interventions (Patient has pulse or is breathing): Full Support Level Of Support Discussed With: Patient Yoli Moreira MD 08/01/25 * Bear Quijano [facility] - 07/31/2025 4:42 PM EDT [...] from the original note were not included. [facility] Medicine Services HISTORY AND PHYSICAL Patient [...] cooperative Neurologic: Speech clear and fluent Skin: [employer], slightly irritated area on the coccyx. Extremities: [...] Urinalysis Squamous Epithelial Cells, UA 0-2 Specific Bovey, UA 1.022 Ketones, UA Negative Blood, UA Negative Leukocytes, UA Small (1+) Nitrite, UA Negative RBC, UA None Seen WBC, UA 6-10 Bacteria, UA None Seen Microbiology Results (last 10 days) Procedure Component Value - Date/Time MRSA Screen, PCR (Inpatient) - Swab, Nares [[id number]] (Abnormal) Collected: 07/24/252054 Lab Status: Final result Specimen: Swab from Nares Updated: 07/25/25808 MRSA PCR Positive Narrative: The negative predictive value of this diagnostic test is high and should only be used to consider de-escalating anti-MRSA therapy. A positive result may indicate colonization with MRSA and must be correlated clinically. Blood Culture - Blood, Arm, Left [[id number]] (Normal) Collected: 07/23/251744 Lab Status: Final result Specimen: Blood from Arm, Left Updated: 07/28/251945 Blood Culture No growth at 5 days Narrative: Less than seven (7) mL's of blood was collected. Insufficient quantity may yield false negative results. Blood Culture - Blood, Arm, Right [[id number]] (Normal) Collected: 07/23/251734 Lab Status: Final result [...] and treated with a Mepilex dressing. - [facility] Hospital delirium - History of hospital delirium, previously managed with seroquel - Continue PRN seroquel Total time spent: 75 minutes Time spent includes time reviewing chart, epqb-dt-hbqj time, counseling patient/family/caregiver, ordering medications/tests/procedures, communicating with other health emergency care tech, documenting clinical information in the electronic health [...] Yoli Moreira MD 07/31/25 Patient or patient outside dealer sales representative verbalized consent for the use [...] elderly white female; resting in bed HEENT: [employer] conjunctivae, MMM Lungs: Normal respiratory effort Ext: motor intact; left great toe necrosis; no palpable left pedals Neuro: Follows simple commands Psych: Apropriate mood ?baseline memory loss? Relevant Results: Imaging Results (Last 48 Hours) No results found for the last 48 hours. Lab Results (last 48 hours) Procedure Component Value Units Date/Time Basic Metabolic Panel [[id number]] (Abnormal) Collected: 08/01/25722 Specimen: Blood Updated: 08/01/25826 [...] race as a factor CBC & Differential [[id number]] (Abnormal) Collected: 08/01/25722 Specimen: Blood Updated: 08/01/25758 Narrative: The following orders were created for panel order CBC & Differential. Procedure Abnormality Status --------- ------ CBC Auto Differential[[id number]] Abnormal Final result Please view results for these tests on the individual orders. CBC Auto Differential [[id number]] (Abnormal) Collected: 08/01/25722 Specimen: Blood Updated: 08/01/25758 [...] 0.07 10*3/mm3 nRBC 0.0 /100 WBC aPTT [[id number]] (Abnormal) Collected: 07/31/25 2252 Specimen: Blood Updated: 08/01/25 0047 PTT 34.8 seconds Narrative: PTT = The equivalent PTT values for the therapeutic range of heparin levels at 0.3 to 0.5 U/ml are 60 to 70 seconds. Heparin Anti-Xa [[id number]] (Normal) Collected: 07/31/25 1615 Specimen: Blood from Arm, Right Updated: 07/31/25 1635 Heparin Anti-Xa (UFH) 0.31 IU/ml Protime-INR [[id number]] (Normal) Collected: 07/31/251614 Specimen: Blood from Arm, Right Updated: 07/31/251634 Protime 14.2 Seconds INR 1.04 aPTT [[id number]] (Abnormal) Collected: 07/31/251614 Specimen: Blood from Arm, Right Updated: 07/31/251634 PTT 35.2 seconds Narrative: PTT = The equivalent PTT values for the therapeutic range of heparin levels at 0.3 to 0.5 U/ml are 60 to 70 seconds. Comprehensive Metabolic Panel [[id number]] (Abnormal) Collected: 07/31/251436 Specimen: Blood Updated: 07/31/251526 [...] include race as a factor C-reactive Protein [[id number]] (Abnormal) Collected: 07/31/251436 Specimen: Blood Updated: 07/31/251522 C-Reactive Protein 2.78 mg/dL Digoxin Level [[id number]] (Normal) Collected: 07/31/251436 Specimen: Blood Updated: 07/31/251522 Digoxin 1.12 ng/mL Narrative: Results may be falsely increased if patient taking Biotin. Extra Tubes [[id number]] Collected: 07/31/251436 Specimen: Blood, Venous Line Updated: 07/31/25 150 Narrative: The following orders were created for panel order Extra Tubes. Procedure Abnormality Status --------- ------ Gold [facility][[id number]] Final result Wheatley Top[[id number]] Final result Please view results for these tests on the individual orders. [facility] [[id number]] Collected: 07/31/251436 Specimen: Blood Updated: 07/31/251500 Extra Tube Hold for add-ons. Comment: Auto resulted. Wheatley Top [[id number]] Collected: 07/31/251436 Specimen: Blood Updated: 07/31/25 150 Extra Tube Hold for add-ons. Comment: Auto resulted. Sedimentation Rate [[id number]] (Abnormal) Collected: 07/31/251436 Specimen: Blood Updated: 07/31/25 145 Sed Rate 73 mm/hr CBC Auto Differential [[id number]] (Abnormal) Collected: 07/31/251436 Specimen: Blood Updated: 07/31/251452 [...] critical limb ischemia - recent angioplasty in [place] 06/18/25 - multiple stents from iliac down to popliteal and including FLOOR TECH - Diabetes mellitus type 2 with neuropathy [...] best functional outcome when medically appropriate. * aJkub Barron RN - 08/05/2025 10:45 AM EDT [...] when medically ready. Anticipated Discharge Disposition (OT): senior living facility * Norma Huitron, PT - 08/04/2025 [...] appropriate for discharge. Anticipated Discharge Disposition (PT): senior living facility * Handy Prakash RN - 08/04/2025 [...] than operative extremity this AM. PRN PO [place] given x2, tolerated well, good response to [...] relating to operative nerve block. - PO [place] 5mg PRN given x2. Seroquel 12.5mg PO [...] environmental surveillance performed Taken 08/01/2025 1200 by Quqiue Byrd RN Infection Prevention: environmental surveillance performed [...] Medication Review/Management: medications reviewed Taken 08/02/202524 by ePrlita Magallanes RN Medication Review/Management: medications reviewed Taken [...] Flowsheet Documentation Taken 08/01/2025416 by Perlita Magallanes RNsurfacer Interventions: pain medication given Taken 08/01/2025 0103 by Perlita Magallanes RNsurfacer Interventions: pain medication given Taken 07/31/2025 2047 by Perlita Magallanes RNsurfacer Interventions: pain medication given Goal: Readiness for Transition of Care Outcome: Progressing Problem: Skin Injury Risk Increased Goal: Skin Health and Integrity Outcome: Progressing Intervention: Optimize Skin Protection Recent Flowsheet Documentation Taken 08/01/2025 0605 by Perlita Magallanes RN Activity Management: activity encouraged Pressure Reduction Techniques: heels elevated off bed positioned off wounds weight shift assistance provided Head of Bed ([facility]) Positioning: HOB elevated Pressure Reduction Devices: heel offloading device utilized positioning supports utilized pressure-redistributing mattress utilized Skin Protection: incontinence pads utilized Taken 08/01/2025 0417 by Perlita Magallanes RN Activity Management: activity encouraged Pressure Reduction Techniques: heels elevated off bed weight shift assistance provided Head of Bed ([facility]) Positioning: HOB elevated Pressure Reduction Devices: heel offloading device utilized positioning supports utilized pressure-redistributing mattress utilized Skin Protection: incontinence pads utilized Taken 08/01/2025 0318 by Perlita Magallanes RN Activity Management: activity encouraged Pressure Reduction Techniques: heels elevated off bed positioned off wounds weight shift assistance provided Head of Bed ([facility]) Positioning: HOB elevated Pressure Reduction Devices: heel offloading device utilized positioning supports utilized pressure-redistributing mattress utilized Skin Protection: incontinence pads utilized Taken 08/01/2025 0230 by Perlita Magallanes RN Activity Management: activity encouraged Pressure Reduction Techniques: heels elevated off bed positioned off wounds weight shift assistance provided Head of Bed ([facility]) Positioning: HOB elevated Pressure Reduction Devices: heel offloading device utilized positioning supports utilized pressure-redistributing mattress utilized Skin Protection: incontinence pads utilized Taken 08/01/2025 0103 by Perlita Magallanes RN Activity Management: up to bedside commode Pressure Reduction Techniques: heels elevated off bed positioned off wounds weight shift assistance provided Head of Bed ([facility]) Positioning: HOB elevated Pressure Reduction [...] Documentation Taken 08/01/2025 0417 by Perlita Magallanes RNsurfacer Interventions: pain medication given Taken 08/01/2025 0103 by Perlita Magallanes RNsurfacer Interventions: pain medication given Taken 07/31/20252046 by Perlita Magallanes RNsurfacer Interventions: pain medication given Intervention: Prevent or [...] Documentation Taken 08/01/2025 041 by Perlita Magallanes RNsurfacer Interventions: pain medication given Taken 08/01/2025102 by Perlita Magallanes RNsurfacer Interventions: pain medication given Taken 07/31/20252046 by Perlita Magallanes RNsurfacer Interventions: pain medication given Goal: Readiness for [...] weight shift assistance provided Head of Bed ([facility]) Positioning: HOB elevated Pressure Reduction Devices: heel offloading device utilized positioning supports utilized pressure-redistributing mattress utilized Skin Protection: incontinence pads utilized Taken 08/01/2025 0103 by Perlita Magallanes RN Activity Management: up to bedside commode Pressure Reduction Techniques: heels elevated off bed positioned off wounds weight shift assistance provided Head of Bed ([facility]) Positioning: HOB elevated Pressure Reduction Devices: heel offloading device utilized positioning supports utilized pressure-redistributing mattress utilized Skin Protection: incontinence pads utilized Taken 08/01/2025 0005 by Perlita Magallanes RN Activity Management: activity encouraged Pressure Reduction Techniques: heels elevated off bed positioned off wounds weight shift assistance provided Head of Bed ([facility]) Positioning: HOB elevated Pressure Reduction Devices: heel offloading device utilized positioning supports utilized pressure-redistributing mattress utilized Skin Protection: incontinence pads utilized Taken 07/31/2025 2240 by Perlita Magallanes RN Activity Management: activity encouraged Pressure Reduction Techniques: heels elevated off bed positioned off wounds weight shift assistance provided Head of Bed ([facility]) Positioning: HOB elevated Pressure Reduction Devices: heel offloading device utilized positioning supports utilized pressure-redistributing mattress utilized Skin Protection: incontinence pads utilized Taken 07/31/2025 2053 by Perlita Magallanes RN Activity Management: activity encouraged Pressure Reduction Techniques: heels elevated off bed weight shift assistance provided Head of Bed ([facility]) Positioning: HOB elevated Pressure Reduction [...] Documentation Taken 08/01/2025 0417 by Perlita Magallanes RNsurfacer Interventions: pain medication given Taken 08/01/2025 010 by Perlita Magallanes RNsurfacer Interventions: pain medication given Taken 07/31/20252046 by Perlita Magallanes RNsurfacer Interventions: pain medication given Intervention: Prevent or [...] Recent Flowsheet Documentation Taken 08/01/2025 0605 by ePrlita Magallanes RN Safety Promotion/Fall Prevention: clutter free [...] toe amputation Staff: Surgeon(s): Junior Zhao MD Floor Layer Tile: Jackson Barrios RN; India Lane RN; Desiree Helms RN Physician Printing Services Coordinator: Meron Swift PA-C Scrub Person: Shelton Best; Neda Oshea Anesthesia: General Estimated Blood Loss: minimal Implants: Implant Name Type Inv. Item Serial No. [employer] Rep[employer]r Lot No. [id number] No. Used Action HEMOST ABS SURGICEL SNOW 1X2IN - [id number] Implant HEMOST ABS SURGICEL SNOW 1X2IN [employer] J [id number] Left 1 Implanted CLIPAPPLR M/ ENDO LIGACLIP 9 3/8IN SM - [id number] Implant CLIPAPPLR M/ ENDO LIGACLIP 9 3/8IN [employer] ENDO SURGERY DIV OF J AND J [id number] Left 1 Implanted CLIPAPPLR M/ ENDO LIGACLIP9 3/8IN IA - [id number] Implant CLIPAPPLR M/ ENDO LIGACLIP9 3/8IN ETHIRASHI ENDO SURGERY DIV OF J AND J [id number] Left 1 Implanted MONICA GONZALEZAT RADHIKATRANJALI [id number] - [id number] - [id number] Implant MONICA VASC PROPAT RADHIKATRCH [id number] [employer] Left 1 Implanted HEMOST ABS SURGICEL SNOW 1X2IN - [id number] Implant HEMOST ABS SURGICEL SNOW 1X2IN ETHICON [...] patient was recently in the hospital, at [facility], admitted on 07/23/2025, discharged 07/25/2025, admitted for [...] Component Value Units Date/Time CBC Auto Differential [[id number]] (Abnormal) Collected: 07/31/25 1437 Specimen: Blood Updated: [...] nRBC 0.0 /100 WBC Comprehensive Metabolic Panel [[id number]] (Abnormal) Collected: 07/31/25 143 Specimen: Blood Updated: [...] include race as a factor Sedimentation Rate [[id number]] (Abnormal) Collected: 07/31/251436 Specimen: Blood Updated: 07/31/25 1457 Sed Rate 73 mm/hr C-reactive Protein [[id number]] (Abnormal) Collected: 07/31/251436 Specimen: Blood Updated: 07/31/25 1523 C-Reactive Protein 2.78 mg/dL Digoxin Level [[id number]] (Normal) Collected: 07/31/251436 Specimen: Blood Updated: 07/31/25 152 Digoxin 1.12 ng/mL Narrative: Results may be falsely increased if patient taking Biotin. Heparin Anti-Xa [[id number]] (Normal) Collected: 07/31/251614 Specimen: Blood from Arm, Right Updated: 07/31/251634 Heparin Anti-Xa (UFH) 0.31 IU/ml Protime-INR [[id number]] (Normal) Collected: 07/31/251614 Specimen: Blood from Arm, Right Updated: 07/31/251634 Protime 14.2 Seconds INR 1.04 aPTT [[id number]] (Abnormal) Collected: 07/31/251614 Specimen: Blood from Arm, [...] Discharge Note Final Note: Received call from [facility] who advises [facility] is not taking [employer] Medicare and [facility] cannot accept at this time. Family request Referral to [facility] and if not accepted [facility]. Spoke to liasion for [facility] who cannot accept [employer] Medicare. Spoke to [facility] liaison who acceptedpatient to service for PT/OT and will evaluate need for SN. Patient plan is to discharge home with [facility] today via car with family to transport. Selected Continued Care - Admitted Since 07/31/2025 Destination No services have been selected for the patient. Durable Medical Equipment No services have been selected for the patient. Dialysis/Infusion No services have been selected for the patient. Home Medical Care Coordination complete. Service Provider Services Address Phone Fax Patient Preferred [facility] [place] [address] [phone] -- Therapy No services have been selected [...] HHC and agreeable to PT/OT services with [facility]. Isolation Precautions: No active isolations START PATIENT REGISTRATION INFORMATION Order Information Order Signing Physician: Neda Ocampo, DO Service Ordered RN?: No Service Ordered PT?: Yes Service Ordered OT?: Yes Service Ordered ST?: No Service Ordered NEEDLE GRADER?: No Service Ordered FAMILY DAY CARE WORKER?: No Following Physician: Alexis Anand MD Following Physician Overseeing Physician: Alexis Anand MD (Required for Residents Only) Agreeable to Follow ? Yes Date/Time of Call 08/07/25 14:29 EDT, Spoke with: Care Coordination Same Day SOC?: No Primary Care Physician: Alexis Anand MD Primary Care Physician Primary Care Physician Address: [address] [place] [address] Visit Instructions: N/A Service Discharge Location Type: Home Service Facility Name: N/A Service Floor Facility: N/A Service Room No: N/A Demographics Patient Last Name: Sera Patient First Name: Hattie Language/Communication Barrier: NO Service Address: [address] [place] [address] Service City: [place] Service State: [place] Service Zip: [address] Service Other Phone Numbers: Telephone Information: Emergency Contact: Extended Emergency Contact Information Primary Emergency Contact: LAKESHA DAVILA Address: [address] [place] [address] Mobile Relation: Daughter Gluing Machine Operator Automatic needed? No Secondary Emergency Contact: ESTELA SANTOS Mobile Relation: Daughter Gluing Machine Operator Automatic needed? No Admission Information Admit Date: 07/31/2025 Patient Status at Discharge: Inpatient Admitting Diagnosis: Claudication [I73.9] Critical limb ischemia of left lower extremity [I70.222] Caregiver Information Caregiver First Name: LAKESHA Caregiver Last Name: GIOVANNI Caregiver Relationship to Patient: DAUGHTER Caregiver Caregiver Notes: ESTELA SANTOS, DAUGHTER [phone] [email or web address] List No END PATIENT REGISTRATION INFORMATION Start PACC Summary Additional Comments: END PACC Summary Discharge Date: Pending Referral Source: AHMET López Signed By: Lily Martinez, 08/07/2025, 14:29 EDT Date/Time: 08/07/25 14:29 EDT End PACC Note * Case Management/Social Work - Rani Pereira RN - 08/07/2025 2:09 PM EDT Continued Stay Note [facility] Patient Name: Hattie Santos Today's Date: 08/07/2025 [...] TOE AMPUTATION; Surgeon: Junior Zhao MD; Location: [facility]; Service:Vascular; Laterality: Left; FEMORAL POPLITEAL BYPASS Left 08/02/2025 Procedure: FEMORAL POPLITEAL BYPASS; Surgeon: Junior Zhao MD; Location: [facility]; Service: Vascular; [...] step by step explanation of task, used [email or web address] tennis shoe for right and encouraged family to bring her own for height differenced/t offloading shoe on L - User Amor (r) = Recorded By, (t) = Taken By, (c) = Cosigned By Initials Name Provider Type Desiree Shearer PTA Physical Therapist Printing Services Coordinator Mobility Row Name 08/07/25931 Bed Mobility Supine-Sit [place] (Bed Mobility) verbal cues;minimum assist (75% patient effort);1 person assist - Assistive Device (Bed Mobility) head of bed elevated;bed rails;repositioning sheet - Comment, (Bed Mobility) assist needed at trunk to reach EOB - Row Name 08/07/25931 Transfers Comment, (Transfers) multiple verbal cues for hand and feet placement - Row Name 08/07/25931 Bed-Chair Transfer Bed-Chair [place] (Transfers) verbal cues;minimum assist (75% patient effort);moderate assist (50% patient effort);1 person assist - Assistive Device (Bed-Chair Transfers) walker, front-wheeled - Comment, (Bed-Chair Transfer) patient took steps to recliner then took seated rest break, then ambulated 4 steps forward - Row Name 08/07/25931 Sit-Stand Transfer Sit-Stand [place] (Transfers) verbal cues;minimum assist (75% patient effort);moderate assist (50% patient effort);1 person assist - Assistive Device (Sit-Stand Transfers) walker, front-wheeled - Comment, (Sit-Stand Transfer) cues for hand/feet placement and to maintain heel WB L LE - Row Name 08/07/25931 Gait/Stairs (Locomotion) [place] Level (Gait) verbal cues;minimum assist (75% patient [...] Provider Type Desiree Shearer PTA Physical Therapist Printing Services Coordinator Obj/Interventions Row Name 08/07/25940 Motor Skills Therapeutic Exercise knee;ankle - [facility] Name 08/07/25940 Knee (Therapeutic Exercise) Knee (Therapeutic Exercise) strengthening exercise - Knee Strengthening (Therapeutic Exercise) bilateral;marching while seated;LAQ (long arc quad);sitting;10 repetitions - [facility] Name 08/07/25940 Ankle (Therapeutic Exercise) Ankle (Therapeutic Exercise) AROM (active range of motion) - Ankle AROM (Therapeutic Exercise) bilateral;dorsiflexion;plantarflexion;sitting;10 repetitions - [facility] Name 08/07/25940 Balance Dynamic Sitting Balance verbal [...] Provider Type Desiree Shearer PTA Physical Therapist Printing Services Coordinator Goals/Plan No documentation. Clinical Impression [facility] 08/07/25941 Pain Pain Location extremity - Pain [...] Provider Type Desiree Shearer PTA Physical Therapist Printing Services Coordinator Outcome Measures Row Name 08/07/2544 How much [...] Provider Type Desiree Shearer PTA Physical Therapist Printing Services Coordinator Physical Therapy Education Title: PT OT HEPATOLOGIST Therapies (In Progress) Topic: Physical Therapy (In [...] 05/03/25 - Desiree Shearer PTA Physical Therapist Printing Services Coordinator PT MB 03/15/25 - Norma Huitron PT [...] Re-Cert Due Date 08/14/25 - Timed Charges 76389 - PT Therapeutic Exercise Minutes 10 - 30980 - Gait Training Minutes 13 - Total Minutes Timed Charges Total Minutes 23 - Total Minutes 23 - User Amor (r) = Recorded By, (t) = Taken By, (c) = Cosigned By Initials Name Provider Type Desiree Shearer PTA Physical Therapist Printing Services Coordinator Therapy Charges for Today Code Description Service Date Service Provider Modifiers Qty 02725892666 HC PT THER PROC EA 15 MIN 08/07/2025 Desiree Shearer PTA GP 1 44274300713 HC GAIT TRAINING EA 15 MIN 08/07/2025 Desiree Shearer PTA GP 1 PT G-Codes Outcome Measure Options: AM-PAC 6 Clicks Basic Mobility (PT) AM-PAC 6 Clicks Score (PT): 12 AM-PAC 6 Clicks Score (OT): 14 Desiree Shearer PTA 08/07/2025 * Case Management/Social Work - Rani Pereira RN - 08/05/2025 2:14 PM EDT Continued Stay Note [facility] Patient Name: Hattie Santos Today's Date: 08/05/2025 [...] Bed Mobility Bed Mobility supine-sit -KF Supine-Sit [place] (Bed Mobility) minimum assist (75% patient effort);1 person assist;verbal cues - Assistive Device (Bed Mobility) bed rails;head of bed elevated;repositioning sheet - Comment, (Bed Mobility) Increased time needed. Cues for sequence with assistance given at trunk andBLEs. - Row Name 08/04/25 110 Transfers Transfers sit-stand transfer;stand-sit transfer;toilet transfer - Row Name 08/04/25 110 Sit-Stand Transfer Sit-Stand [place] (Transfers) minimum assist (75% patient effort);2 person assist;verbal cues - Assistive Device (Sit-Stand Transfers) walker, front-wheeled - Comment, (Sit-Stand Transfer) x1 from EOB, x1 from BSC for seated rest break; cues for hand placement and maintaining LLE heel WB - Row Name 08/04/251102 Stand-Sit Transfer Stand-Sit [place] (Transfers) minimum assist (75% patient effort);2 person assist;verbal cues - Assistive Device (Stand-Sit Transfers) walker, front-wheeled - Row Name 08/04/25 110 Toilet Transfer Type (Toilet Transfer) sit-stand;stand-sit - [place] Level (Toilet Transfer) minimum assist (75% patient [...] Name 08/04/25 110 Lower Body Dressing Assessment/Training [place] Level (Lower Body Dressing) don;socks;shoes/slippers;dependent (less than 25% patient effort) -KF Position (Lower Body Dressing) edge of bed sitting -KF Row Name 08/04/25 110 Self-Feeding Assessment/Training [place] Level (Feeding) liquids to mouth;independent -KF Position [...] (OT) Activity/Assistive Device (Transfer Goal 1, OT) dxx-yo-runof/fbedo-xc-ady;commode -KF [place] Level/Cues Needed (Transfer Goal 1, OT) contact guard required -KF Time Frame (Transfer Goal 1, OT) extermination inspector goal (LTG);10 days -KF Progress/Outcome (Transfer Goal 1, OT) new goal -KF Row Name 08/04/25 1108 Dressing Goal 1 (OT) Activity/Device (Dressing Goal 1, OT) lower body dressing -KF [place]/Cues Needed (Dressing Goal 1, OT) minimum assist (75% or more patient effort) -KF Time Frame (Dressing Goal 1, OT) short term goal (STG);5 days -KF Strategies/Barriers (Dressing Goal 1, OT) L offloading shoe -KF Progress/Outcome (Dressing Goal 1, OT) new goal -KF Row Name 08/04/251107 Toileting Goal 1 (OT) Activity/Device (Toileting Goal 1, OT) adjust/manage clothing;perform perineal hygiene -KF [place] Level/Cues Needed (Toileting Goal 1, OT) set-up required -KF Time Frame (Toileting Goal 1, OT) extermination inspector goal (LTG);10 days -KF Progress/Outcome (Toileting Goal [...] Review/Discharge Plan (OT) Anticipated Discharge Disposition (OT) senior living facility -KF Row Name 08/04/25 1106 Vital [...] Therapist Occupational Therapy Education Title: PT OT HEPATOLOGIST Therapies (In Progress) Topic: Occupational Therapy (In [...] Description Service Date Service Provider Modifiers Qty 86407765068 HC OT EVAL MOD COMPLEXITY 4 08/04/2025 [...] Bed Mobility Bed Mobility supine-sit;scooting/bridging -MB Scooting/Bridging [place] (Bed Mobility) 1 person assist;verbal cues to scoot anteriorly toward EOB in seated position -MB Supine-Sit [place] (Bed Mobility) minimum assist (75% patient effort);1 [...] Row Name 08/04/25 1246 Sit-Stand Transfer Sit-Stand [place] (Transfers) minimum assist (75% patient effort);2 person assist;verbal cues -MB Assistive Device (Sit-Stand Transfers) walker, front-wheeled -MB Comment, (Sit-Stand Transfer) Patient moved to stand x 2 reps during session (once from EOB and once from BSC). Patient requiring verbal cues for proper hand placement and LLE heel weight-bearing. -MB Row Name 08/04/25 1247 Gait/Stairs (Locomotion) [place] Level (Gait) minimum assist (75% patient effort);2 [...] RW management required. -MB Row Name 08/04/25 4449 Mobility Extremity Weight-bearing Status other (see comments) [...] decreased sensation in left LE. -MB User Amor (r) = Recorded By, (t) = Taken By, (c) = Cosigned By Initials Name Provider Type Norma Mayers, PT Physical Therapist Goals/Plan Row Name 08/04/25 9866 Bed Mobility Goal 1 (PT) Activity/Assistive Device (Bed Mobility Goal 1, PT) bed mobility activities, all -MB [place] Level/Cues Needed (Bed Mobility Goal 1, PT) standby assist -MB Time Frame (Bed Mobility Goal 1, PT) short term goal (STG);1 week - Row Name 08/04/25 1564 Transfer Goal 1 (PT) Activity/Assistive Device (Transfer Goal 1, PT) aha-hl-vaxvw/mvffq-wb-oax;walker, rolling -MB [place] Level/Cues Needed (Transfer Goal 1, PT) standby assist -MB Time Frame (Transfer Goal 1, PT) alf goal (LTG);2 weeks -MB Row Name 08/04/25 3343 Gait Training Goal 1 (PT) Activity/Assistive Device (Gait Training Goal 1, PT) gait (walking locomotion);walker, rolling -MB [place] Level (Gait Training Goal 1, PT) standby assist -MB Distance (Gait Training Goal 1, PT) 50 feet -MB Time Frame (Gait Training Goal 1, PT) alf goal (LTG);2 weeks -MB Row Name 08/04/25 4098 Stairs Goal 1 (PT) Activity/Assistive Device (Stairs Goal 1, PT) ascending stairs;descending stairs -MB [place] Level/Cues Needed (Stairs Goal 1, PT) minimum assist (75% or more patient effort) -MB Number of Stairs (Stairs Goal 1, PT) 1 step -MB Time Frame (Stairs Goal 1, PT) extermination inspector goal (LTG);2 weeks -MB Row Name 08/04/25 6088 Therapy Assessment/Plan (PT) Planned Therapy Interventions (PT) [...] - no pain -MB Row Name 08/04/25 1258 Plan of Care Review Plan of Care [...] (PT) 2 weeks -MB Row Name 08/04/25 4238 Vital Signs Pre Systolic BP Rehab 123 [...] Therapist Physical Therapy Education Title: PT OT HEPATOLOGIST Therapies (In Progress) Topic: Physical Therapy (In [...] Description Service Date Service Provider Modifiers Qty [id number] HC PT EVAL MOD COMPLEXITY 4 08/04/2025 Norma Huitron, PT GP 1 PT G-Codes Outcome Measure Options: AM-PAC 6 Clicks Basic Mobility (PT) AM-PAC 6 Clicks Score (PT): 16 AM-PAC 6 Clicks Score (OT): 14 PT Discharge Summary Anticipated Discharge Disposition (PT): senior living facility Norma Huitron, PT 08/04/2025 [1] Patient [...] 08/02/2025 12:40 PM EDT Continued Stay Note [facility] Patient Name: Hattie Santos Today's Date: 08/02/2025 [...] 4:27 PM EDT Discharge Planning Assessment [facility] Patient Name: Hattie Santos Today's Date: 08/01/2025 [...] with family Patient/Family Anticipated Services at Transition housing case managertransition program manager Anticipated family or friend will provide Discharge Needs Assessment Equipment Currently Used at Home glucometer;nebulizer Discharge Plan Row Name 08/01/25 1621 Plan Plan Home Patient/Family in Agreement with Plan yes Plan Comments Ms. Santos is confused. Information taken from her granddaughter/POA Afua Melton. Ms. Santos lives in [place]. Her adult son and adult daughter live with her. Ms. Santos has [employer] Medicare insurance. She uses [facility] to get her prescriptions filled. Her [...] Reason for Consult discharge planning Preferred Language Citizen Of [place] Contact Information Permission Granted to Share Info With housing case managerpolicy manager Information Obtained for housing case managertechnical sales support manager Status Row Name 08/01/25 1617 [...] Description 09/16/2025 10:30 AM EST Office Visit [facility] [address] [facility] [address] [place] [address] AyaanMelissa gongora PUFF IRON OPERATOR [address] [facility] [address] [place], [place] [id number] Scheduled Orders Name Type Priority Associated Diagnoses [...] - 10.80 10*3/mm3 08/07/2025 7:10 AM EDT [facility] RBC 3.12(L) 3.77 - 5.28 10*6/mm3 08/07/2025 7:10 AM EDT [facility] Hemoglobin 8.9(L) 12.0 - 15.9 g/dL 08/07/2025 7:10 AM EDT [facility] Hematocrit 28.3(L) 34.0 - 46.6 % 08/07/2025 7:10 AM EDT [facility] MCV 90.7 79.0 - 97.0 fL 08/07/2025 7:10 AM EDT [facility] MCH 28.5 26.6 - 33.0 pg 08/07/2025 7:10 AM EDT [facility] MCHC 31.4(L) 31.5 - 35.7 g/dL 08/07/2025 7:10 AM EDT [facility] RDW 12.7 12.3 - 15.4 % 08/07/2025 7:10 AM EDT [facility] RDW-SD 41.7 37.0 - 54.0 fl 08/07/2025 7:10 AM EDT [facility] MPV 8.7 6.0 - 12.0 fL 08/07/2025 7:10 AM EDT [facility] Platelets 475(H) 140 - 450 10*3/mm3 08/07/2025 7:10 AM EDT [facility] Neutrophil % 63.4 42.7 - 76.0 % 08/07/2025 7:10 AM EDT [facility] Lymphocyte % 21.8 19.6 - 45.3 % 08/07/2025 7:10 AM EDT [facility] Monocyte % 11.8 5.0 - 12.0 % 08/07/2025 7:10 AM EDT [facility] Eosinophil % 2.3 0.3 - 6.2 % 08/07/2025 7:10 AM EDT [facility] Basophil % 0.2 0.0 - 1.5 % 08/07/2025 7:10 AM EDT [facility] Immature Grans % 0.5 0.0 - 0.5 % 08/07/2025 7:10 AM EDT [facility] Neutrophils, Absolute 8.41(H) 1.70 - 7.00 10*3/mm3 08/07/2025 7:10 AM EDT [facility] Lymphocytes, Absolute 2.89 0.70 - 3.10 10*3/mm3 08/07/2025 7:10 AM EDT [facility] Monocytes, Absolute 1.56(H) 0.10 - 0.90 10*3/mm3 08/07/2025 7:10 AM EDT [facility] Eosinophils, Absolute 0.31 0.00 - 0.40 10*3/mm3 08/07/2025 7:10 AM EDT [facility] Basophils, Absolute 0.03 0.00 - 0.20 10*3/mm3 08/07/2025 7:10 AM EDT [facility] Immature Grans, Absolute 0.07(H) 0.00 - 0.05 10*3/mm3 08/07/2025 7:10 AM EDT [facility] nRBC 0.0 0.0 - 0.2 /100 WBC 08/07/2025 7:10 AM EDT [facility] Blood Venipuncture / Unknown 08/07/2025 6:48 AM EDT 08/07/2025 7:00 AM EDT us Rocky Garcia MD LAB BLOOD ORDERABLES F inal Result [facility]
[address] [place] [address], * (ABNORMAL) Basic Metabolic Panel (08/06/2025 10:56 AM EDT) [facility] Glucose 124(H) 65 - 99 mg/dL 08/06/2025 12:15 PM EDT [facility] BUN 7.9(L) 8.0 - 23.0 mg/dL 08/06/2025 12:15 PM EDT [facility] Creatinine 0.54(L) 0.57 - 1.00 mg/dL 08/06/2025 12:15 PM EDT [facility] Sodium 133(L) 136 - 145 mmol/L 08/06/2025 12:15 PM EDT [facility] Potassium 4.4 3.5 - 5.2 mmol/L 08/06/2025 12:15 PM EDT [facility] Chloride 96(L) 98 - 107 mmol/L 08/06/2025 12:15 PM EDT [facility] CO2 32.5(H) 22.0 - 29.0 mmol/L 08/06/2025 12:15 PM EDT [facility] Calcium 8.5(L) 8.6 - 10.5 mg/dL 08/06/2025 12:15 PM EDT [facility] BUN/Creatinine Ratio 14.6 7.0 - 25.0 08/06/2025 12:15 PM EDT [facility] Anion Gap 4.5(L) 5.0 - 15.0 mmol/L 08/06/2025 12:15 PM EDT [facility] eGFR 90.9 >60.0 mL/min/1.7 3 08/06/2025 12:15 PM T [facility] Blood Venipuncture / Unknown 08/06/2025 10:56 AM EDT 08/06/2025 11:59 AM EDT [facility] - 08/06/2025 12:15 PM EDT [...] Ocampo DO LAB BLOOD ORDERABLES Final Result [facility]
[address] [place] [address], * (ABNORMAL) CBC (No Diff) (08/06/2025 10:56 AM EDT) WBC 10.16 3.40 - 10.80 10*3/mm3 08/06/2025 11:20 AM EDT [facility] RBC 3.22(L) 3.77 - 5.28 10*6/mm3 08/06/2025 11:20 AM EDT [facility] Hemoglobin 9.2(L) 12.0 - 15.9 g/dL 08/06/2025 11:20 AM EDT [facility] Hematocrit 29.6(L) 34.0 - 46.6 % 08/06/2025 11:20 AM EDT [facility] MCV 91.9 79.0 - 97.0 fL 08/06/2025 11:20 AM EDT [facility] MCH 28.6 26.6 - 33.0 pg 08/06/2025 11:20 AM EDT [facility] MCHC 31.1(L) 31.5 - 35.7 g/dL 08/06/2025 11:20 AM EDT [facility] RDW 12.7 12.3 - 15.4 % 08/06/2025 11:20 AM EDT [facility] RDW-SD 42.1 37.0 - 54.0 fl 08/06/2025 11:20 AM EDT [facility] MPV 8.8 6.0 - 12.0 fL 08/06/2025 11:20 AM EDT [facility] Platelets 452(H) 140 - 450 10*3/mm3 08/06/2025 11:20 AM EDT [facility] Blood Venipuncture / Unknown 08/06/2025 10:56 AM EDT 08/06/2025 11:16 AM EDT us Neda Ocampo DO LAB BLOOD ORDERABLES Final Result Performing Organization Address [facility]/ZIP Co de Phone Number [facility]
[address] [place] [address], * (ABNORMAL) Heparin Anti-Xa (08/05/2025 12:27 PM EDT) Heparin Anti-Xa (UFH) 0.10(L) 0.30 - 0.70 IU/ml 08/05/2025 1:39 PM EDT [facility] Blood Venipuncture / Unknown 08/05/2025 12:27 PM EDT 08/05/2025 1:08 PM EDT us Ulises Bonilla [facility] LAB BLOOD ORDERABLES Final Res ult Performing Organization Address City/[facility]/ZIP Co de Phone Number [facility]
[address] [place] [address], * (ABNORMAL) Heparin Anti-Xa (08/05/2025 4:32 AM EDT) Heparin Anti-Xa (UFH) 0.24(L) 0.30 - 0.70 IU/ml 08/05/2025 5:42 AM EDT [facility] Blood Venipuncture / Unknown 08/05/2025 4:32 AM EDT 08/05/2025 5:05 AM EDT us Ulises Bonilla [facility] LAB BLOOD ORDERABLES Final Res ult [facility]
[address] [place] [address], * (ABNORMAL) CBC Auto Differential (08/05/2025 4:32 AM EDT) WBC 10.01 3.40 - 10.80 10*3/mm3 08/05/2025 5:17 AM EDT [facility] RBC 3.20(L) 3.77 - 5.28 10*6/mm3 08/05/2025 5:17 AM EDT [facility] Hemoglobin 9.1(L) 12.0 - 15.9 g/dL 08/05/2025 5:17 AM EDT [facility] Hematocrit 29.0(L) 34.0 - 46.6 % 08/05/2025 5:17 AM EDT [facility] MCV 90.6 79.0 - 97.0 fL 08/05/2025 5:17 AM EDT [facility] MCH 28.4 26.6 - 33.0 pg 08/05/2025 5:17 AM EDT [facility] MCHC 31.4(L) 31.5 - 35.7 g/dL 08/05/2025 5:17 AM EDT [facility] RDW 12.9 12.3 - 15.4 % 08/05/2025 5:17 AM EDT [facility] RDW-SD 42.7 37.0 - 54.0 fl 08/05/2025 5:17 AM EDT [facility] MPV 9.0 6.0 - 12.0 fL 08/05/2025 5:17 AM EDT [facility] Platelets 443 140 - 450 10*3/mm3 08/05/2025 5:17 AM EDT [facility] Neutrophil % 51.8 42.7 - 76.0 % 08/05/2025 5:17 AM EDT [facility] Lymphocyte % 31.4 19.6 - 45.3 % 08/05/2025 5:17 AM EDT [facility] Monocyte % 14.3(H) 5.0 - 12.0 % 08/05/2025 5:17 AM EDT [facility] Eosinophil % 1.7 0.3 - 6.2 % 08/05/2025 5:17 AM EDT [facility] Basophil % 0.3 0.0 - 1.5 % 08/05/2025 5:17 AM EDT [facility] Immature Grans % 0.5 0.0 - 0.5 % 08/05/2025 5:17 AM EDT [facility] Neutrophils, Absolute 5.19 1.70 - 7.00 10*3/mm3 08/05/2025 5:17 AM EDT [facility] Lymphocytes, Absolute 3.14(H) 0.70 - 3.10 10*3/mm3 08/05/2025 5:17 AM EDT [facility] Monocytes, Absolute 1.43(H) 0.10 - 0.90 10*3/mm3 08/05/2025 5:17 AM EDT [facility] Eosinophils, Absolute 0.17 0.00 - 0.40 10*3/mm3 08/05/2025 5:17 AM EDT [facility] Basophils, Absolute 0.03 0.00 - 0.20 10*3/mm3 08/05/2025 5:17 AM EDT [facility] Immature Grans, Absolute 0.05 0.00 - 0.05 10*3/mm3 08/05/2025 5:17 AM EDT [facility] nRBC 0.0 0.0 - 0.2 /100 WBC 08/05/2025 5:17 AM T [facility] Blood Venipuncture / Unknown 08/05/2025 4:32 AM EDT 08/05/2025 5:05 AM EDT us Rocky Garcia MD LAB BLOOD ORDERABLES F inal Result [facility]
[address] [place] [address], * (ABNORMAL) Basic Metabolic Panel (08/05/2025 4:32 AM EDT) Glucose 96 65 - 99 mg/dL 08/05/2025 5:49 AM EDT [facility] BUN 8.9 8.0 - 23.0 mg/dL 08/05/2025 5:49 AM EDT [facility] Creatinine 0.48(L) 0.57 - 1.00 mg/dL 08/05/2025 5:49 AM EDT [facility] Sodium 134(L) 136 - 145 mmol/L 08/05/2025 5:49 AM EDT [facility] Potassium 4.3 3.5 - 5.2 mmol/L 08/05/2025 5:49 AM EDT [facility] Chloride 100 98 - 107 mmol/L 08/05/2025 5:49 AM EDT [facility] CO2 27.6 22.0 - 29.0 mmol/L 08/05/2025 5:49 AM EDT [facility] Calcium 8.4(L) 8.6 - 10.5 mg/dL 08/05/2025 5:49 AM EDT [facility] BUN/Creatinine Ratio 18.5 7.0 - 25.0 08/05/2025 5:49 AM EDT [facility] Anion Gap 6.4 5.0 - 15.0 mmol/L 08/05/2025 5:49 AM EDT [facility] eGFR 93.5 >60.0 mL/min/1.7 3 08/05/2025 5:49 AM EDT [facility] Blood Venipuncture / Unknown 08/05/2025 4:32 AM EDT 08/05/2025 5:03 AM EDT Narrative [facility] - 08/05/2025 5:49 AM EDT [...] ORDERABLES F inal Result Performing Organization Address City/[facility]/ZIP Co de Phone Number [facility]
[address] [place] [address], * (ABNORMAL) Heparin Anti-Xa (08/04/2025 9:18 PM EDT) Heparin Anti-Xa ([facility]) 0.10(L) 0.30 - 0.70 IU/ml 08/04/2025 9:47 PM EDT [facility] Blood Venipuncture / Unknown 08/04/2025 9:18 PM EDT 08/04/2025 9:27 PM EDT Rocky Garcia MD LAB BLOOD ORDERABLES F inal Result Performing Organization Address [facility] de Phone Number [facility]
[address] [place] [address], * (ABNORMAL) CBC Auto Differential (08/04/2025 4:12 AM EDT) WBC 10.43 3.40 - 10.80 10*3/mm3 08/04/2025 4:35 AM EDT [facility] RBC 3.08(L) 3.77 - 5.28 10*6/mm3 08/04/2025 4:35 AM EDT [facility] Hemoglobin 8.7(L) 12.0 - 15.9 g/dL 08/04/2025 4:35 AM EDT [facility] Hematocrit 27.6(L) 34.0 - 46.6 % 08/04[facility]2025 4[facility] MCV 89.6 79.0 - 97.0 fL 08/04/2025 4:35 AM [facility] MCH 28.2 26.6 - 33.0 pg 08/04/2025 4:35 AM [facility] MCHC 31.5 31.5 - 35.7 g/dL 08/04/2025 4:35 AM [facility] RDW 13.0 12.3 - 15.4 % 08/04/2025 4:35 AM [facility] RDW-SD 42.8 37.0 - 54.0 fl 08/04/2025 4:35 AM [facility] MPV 8.9 6.0 - 12.0 fL 08/04/2025 4:35 AM [facility] Platelets 405 140 - 450 10*3/mm3 08/04/2025 4:35 AM [facility] Neutrophil % 61.8 42.7 - 76.0 % 08/04/2025 4:35 AM [facility] Lymphocyte % 23.5 19.6 - 45.3 % 08/04/2025 4:35 AM [facility] Monocyte % 12.8(H) 5.0 - 12.0 % 08/04/2025 4:[facility] Eosinophil % 1.0 0.3 - 6.2 % 08/04/2025 4:[facility] Basophil % 0.2 0.0 - 1.5 % 08/04/2025 4:35 [facility] Immature Grans % 0.7(H) 0.0 - 0.5 % 08/04/2025 4:35 AM [facility] Neutrophils, Absolute 6.45 1.70 - 7.00 10*3/mm3 08/04/2025 4:35 AM [facility] Lymphocytes, Absolute 2.45 0.70 - 3.10 10*3/mm3 08/04/2025 4:35 AM EDT [facility] Monocytes, Absolute 1.34(H) 0.10 - 0.90 10*3/mm3 08/04/2025 4:35 AM EDT [facility] Eosinophils, Absolute 0.10 0.00 - 0.40 10*3/mm3 08/04/2025 4:35 AM EDT [facility] Basophils, Absolute 0.02 0.00 - 0.20 10*3/mm3 08/04/2025 4:35 AM EDT [facility] Immature Grans, Absolute 0.07(H) 0.00 - 0.05 10*3/mm3 08/04/2025 4:35 AM EDT [facility] nRBC 0.0 0.0 - 0.2 /100 WBC 08/04/2025 4:35 AM EDT [facility] Blood Structure of left upper limb / Unknown Venipuncture / Unknown 08/04/2025 4:12 AM EDT 08/04/2025 4:31 AM EDT Junior Pavel FLYNN LAB BLOOD ORDERABLES Final Res ult Performing Organization Address City/[facility]/ZIP Co de Phone Number [facility]
[address] [place] [address], * Phosphorus (08/04/2025 4:12 AM EDT) Phosphorus 2.7 2.5 - 4.5 mg/dL 08/04/2025 5:01 AM EDT [facility] Blood Structure of left upper limb / Unknown Venipuncture / Unknown 08/04/2025 4:12 AM EDT 08/04/2025 4:32 AM EDT Rocky Garcia MD LAB BLOOD ORDERABLES F inal Result Performing Organization Address City/[facility]/ZIP Co de Phone Number [facility]
[address] [place] [address], * Magnesium (08/04/2025 4:12 AM EDT) Pathologist [facility] Magnesium 1.9 1.6 - 2.4 mg/dL 08/04/2025 5:01 AM EDT [facility] Blood Structure of left upper limb / Unknown Venipuncture / Unknown 08/04/2025 4:12 AM EDT 08/04/2025 4:32 AM EDT Rocky Garcia MD LAB BLOOD ORDERABLES F inal Result [facility]
[address] [place] [address], * (ABNORMAL) Comprehensive Metabolic Panel (08/04/2025 4:12 AM EDT) [facility] Glucose 90 65 - 99 mg/dL 08/04/2025 5:01 AM EDT [facility] BUN 10.1 8.0 - 23.0 mg/dL 08/04/2025 5:01 AM EDT [facility] Creatinine 0.57 0.57 - 1.00 mg/dL 08/04/2025 5:01 AM EDT [facility] Sodium 134(L) 136 - 145 mmol/L 08/04/2025 5:01 AM EDT [facility] Potassium 4.4 3.5 - 5.2 mmol/L 08/04/2025 5:01 AM EDT [facility] Chloride 99 98 - 107 mmol/L 08/04/2025 5:01 AM EDT [facility] CO2 27.2 22.0 - 29.0 mmol/L 08/04/2025 5:01 AM EDT [facility] Calcium 8.2(L) 8.6 - 10.5 mg/dL 08/04/2025 5:01 AM EDT [facility] Total Protein 5.2(L) 6.0 - 8.5 g/dL 08/04/2025 5:01 AM [facility] Albumin 2.8(L) 3.5 - 5.2 g/dL 08/04/2025 5:01 AM [facility] ALT (SGPT) 15 1 - 33 U/L 08/04/2025 5:01 AM [facility] AST (SGOT) 27 1 - 32 U/L 08/04/2025 5:01 AM [facility] Alkaline Phosphatase 49 39 - 117 U/L 08/04/2025 5:01 AM [facility] Total Bilirubin 0.2 0.0 - 1.2 mg/dL 08/04/2025 5:01 AM [facility] Globulin 2.4 gm/dL 08/04/2025 5:01 AM [facility] Comment:Calculated Result A/G Ratio 1.2 g/dL 08/04/2025 5:01 AM [facility] BUN/Creatinine Ratio 17.7 7.0 - 25.0 08/04/2025 5:01 AM [facility] Anion Gap 7.8 5.0 - 15.0 mmol/L 08/04/2025 5:01 AM [facility] eGFR 89.7 >60.0 mL/min/1.7 3 08/04/2025 5:01 AM [facility] Blood Structure of left upper limb / Unknown Venipuncture / Unknown 08/04/2025 4:12 AM EDT 08/04/2025 4:32 AM [facility] - 08/04/2025 5:01 AM EDT GFR [...] MD LAB BLOOD ORDERABLES F inal Result [facility]
[address] [place] [address], * Telemetry Scan (08/03/2025 11:08 PM EDT) [facility] Onbase ECG ORDERABLES Final Result * (ABNORMAL) CBC Auto Differential (08/03/2025 4:34 AM EDT) WBC 11.48(H) 3.40 - 10.80 10*3/mm3 08/03/2025 4:44 AM EDT [facility] RBC 3.43(L) 3.77 - 5.28 10*6/mm3 08/03/2025 4:44 AM EDT [facility] Hemoglobin 9.8(L) 12.0 - 15.9 g/dL 08/03/2025 4:44 AM EDT [facility] Hematocrit 30.2(L) 34.0 - 46.6 % 08/03/2025 4:44 AM EDT [facility] MCV 88.0 79.0 - 97.0 fL 08/03/2025 4:44 AM EDT [facility] MCH 28.6 26.6 - 33.0 pg 08/03/2025 4:44 AM EDT [facility] MCHC 32.5 31.5 - 35.7 g/dL 08/03/2025 4:44 AM EDT [facility] RDW 12.9 12.3 - 15.4 % 08/03/2025 4:44 AM EDT [facility] RDW-SD 41.1 37.0 - 54.0 fl 08/03/2025 4:44 AM [facility] MPV 8.9 6.0 - 12.0 fL 08/03/2025 [facility] Platelets 360 140 - 450 10*3/mm3 08/03/2025 4:44 AM [facility] Neutrophil % 84.9(H) 42.7 - 76.0 % 08/03/2025 4:44 AM [facility] Lymphocyte % 8.5(L) 19.6 - 45.3 % 08/03/2025 4:44 [facility] Monocyte % 5.9 5.0 - 12.0 % 08/03/2025 4:44 AM [facility] Eosinophil % 0.0(L) 0.3 - 6.2 % 08/03/2025 4:44 AM [facility] Basophil % 0.1 0.0 - 1.5 % 08/03/2025 4:44 AM [facility] Immature Grans % 0.6(H) 0.0 - 0.5 % 08/03/2025 4:44 AM [facility] Neutrophils, Absolute 9.74(H) 1.70 - 7.00 10*3/mm3 08/03/2025 4:44 AM [facility] Lymphocytes, Absolute 0.98 0.70 - 3.10 10*3/mm3 08/03/2025 4:44 AM [facility] Monocytes, Absolute 0.68 0.10 - 0.90 10*3/mm3 08/03/2025 4:44 AM [facility] Eosinophils, Absolute 0.00 0.00 - 0.40 10*3/mm3 08/03/2025 4:44 AM [facility] Basophils, Absolute 0.01 0.00 - 0.20 10*3/mm3 08/03/2025 4:44 AM [facility] Immature Grans, Absolute 0.07(H) 0.00 - 0.05 10*3/mm3 08/03/2025 4:44 AM [facility] nRBC 0.0 0.0 - 0.2 /100 WBC 08/03/2025 4:44 AM EDT [facility] Blood Structure of left upper limb / Unknown Venipuncture / Unknown 08/03/2025 4:34 AM EDT 08/03/2025 4:41 AM EDT us Marlon [facility] LAB BLOOD ORDERABLES Final Res ult [facility]
[address] [place] [address], * (ABNORMAL) Basic Metabolic Panel (08/03/2025 4:34 AM EDT) Glucose 117(H) 65 - 99 mg/dL 08/03/2025 5:04 AM EDT [facility] BUN 11.3 8.0 - 23.0 mg/dL 08/03/2025 5:04 AM EDT [facility] Creatinine 0.49(L) 0.57 - 1.00 mg/dL 08/03/2025 5:04 AM EDT [facility] Sodium 129(L) 136 - 145 mmol/L 08/03/2025 5:04 AM EDT [facility] Potassium 4.5 3.5 - 5.2 mmol/L 08/03/2025 5:04 AM EDT [facility] Chloride 96(L) 98 - 107 mmol/L 08/03/2025 5:04 AM EDT [facility] CO2 23.6 22.0 - 29.0 mmol/L 08/03/2025 5:04 AM EDT [facility] Calcium 8.4(L) 8.6 - 10.5 mg/dL 08/03/2025 5:04 AM EDT [facility] BUN/Creatinine Ratio 23.1 7.0 - 25.0 08/03/2025 5:04 AM EDT [facility] Anion Gap 9.4 5.0 - 15.0 mmol/L 08/03/2025 5:04 AM EDT [facility] eGFR 93.1 >60.0 mL/min/1.7 3 08/03/2025 5:04 AM EDT [facility] Blood Structure of left upper limb / Unknown Venipuncture / Unknown 08/03/2025 4:34 AM EDT 08/03/2025 4:40 AM EDT Narrative [facility] - 08/03/2025 5:04 AM EDT [...] [facility] LAB BLOOD ORDERABLES Final Res ult [facility]
[address] [place] [address], * Telemetry Scan (08/02/2025 7:05 PM EDT) [facility] ECG ORDERABLES Final Result * Tissue Pathology Exam (08/02/2025 3:46 PM EDT) Case Report Surgical Pathology Report Case: [id number] Authorizing Provider: Junior Zhao MD Collected: 08/02/2025 03:46 PM Ordering Location: [facility] Received: 08/05/2025 07:46 AM OR Pathologist: Daniel Aj MD Specimens: 1) - Leg, Left, Left Popliteal Thrombus 2) - Toe, Left, Left Great Toe 08/06/2025 4:19 PM EDT [facility] Clinical Information Peripheral artery disease Critical limb ischemia of left lower extremity 08/06/2025 4:19 PM EDT [facility] Final Diagnosis 1. LEFT POPLITEAL THROMBUS, REMOVAL: Organizing hemorrhage, consistent with thrombus 2. LEFT GREAT TOE, DISARTICULATION: Toe with ulceration and necrosis No evidence of malignancy or acute osteomyelitis 08/06/2025 4:19 PM EDT [facility] at 1619 EDT Gross Description [...] bone reveals firm, dark red cut surfaces. Supervisory It Specialist sections are submitted as follows: 2A-en face proximal skin margin and proximal bone, submitted following decalcification 2B-discolored skin with underlying bone, submitted following decalcification. LDP 08/06/2025 4:19 PM EDT [facility] Microscopic Description The slides are reviewed and demonstrate histopathologic features supporting the above rendered diagnosis. 08/06/2025 4:19 PM EDT [facility] Tissue Structure of left lower limb / Unknown 08/02/2025 3:46 PM EDT 08/05/2025 7:46 AM EDT Comment:Left Popliteal Throm bus Tissue specimen (specimen) Structure of toe of left foot / Unknown 08/02/2025 4:21 PM EDT 08/05/2025 7:46 AM EDT Comment:Left Great Toe [facility] [employer] PATHOLOGY/CYTOLOGY ORDERABLES Final Result [facility]
[address] [place] [address], * Type & Screen (08/02/2025 1:30 PM EDT) ABO Type O 08/02/2025 2:31 PM EDT [facility] RH type Positive 08/02/2025 2:31 PM EDT [facility] Antibody Screen Negative 08/02/2025 2:31 PM EDT [facility] T&S Expiration Date 08/05/2025 11:59:59 PM 08/02/2025 2:31 PM EDT [facility] Blood 08/02/2025 1:30 PM EDT 08/02/2025 1:38 PM EDT Parker Bryan MD BLOOD BANK TEST ORDERABLES Ed ited Result - Final Performing Organization Address City/[facility]/ZIP Co de Phone Number [facility]
[address] [place] [address], * (ABNORMAL) aPTT (08/02/2025 3:29 AM EDT) PTT 57.1(L) 60.0 - 90.0 seconds 08/02/2025 6:14 AM EDT [facility] Blood Venipuncture / Unknown 08/02/2025 3:29 AM EDT 08/02/2025 5:58 AM EDT Narrative [facility] - 08/02/2025 6:14 AM EDT PTT = The equivalent PTT values for the therapeutic range of heparin levels at 0.3 to 0.5 U/ml are 60 to 70 seconds. Ulises Bonilla [facility] LAB BLOOD ORDERABLES Final Res ult Performing Organization Address City/[facility]/ZIP Co de Phone Number [facility]
[address] [place] [address], * (ABNORMAL) aPTT (08/01/2025 7:44 PM EDT) PTT 52.0(L) 60.0 - 90.0 seconds 08/01/2025 8:28 PM EDT [facility] Blood Venipuncture / Unknown 08/01/2025 7:44 PM EDT 08/01/2025 8:08 PM EDT [facility] - 08/01/2025 8:28 PM EDT PTT = The equivalent PTT values for the therapeutic range of heparin levels at 0.3 to 0.5 U/ml are 60 to 70 seconds. [facility] LAB BLOOD ORDERABLES Final Res ult Performing Organization Address [facility] de Phone Number [facility]
[address] [place] [address], * (ABNORMAL) aPTT (08/01/2025 10:12 AM EDT) PTT 57.4(L) 60.0 - 90.0 seconds 08/01/2025 11:19 AM EDT [facility] Blood Venipuncture / Unknown 08/01/2025 10:12 AM EDT 08/01/2025 10:49 AM EDT [facility] - 08/01/2025 11:19 AM EDT PTT = The equivalent PTT values for the therapeutic range of heparin levels at 0.3 to 0.5 U/ml are 60 to 70 seconds. [facility] LAB BLOOD ORDERABLES Final Res ult Performing Organization Address [facility]/ZIP Co de Phone Number [facility]
[address] [place] [address], * ABO RH Specimen Verification (08/01/2025 7:23 AM EDT) ABO Type O 08/02/2025 2:47 PM EDT [facility] RH type Positive 08/02/2025 2:47 PM EDT [facility] Blood Venipuncture / Unknown 08/01/2025 7:23 AM EDT 08/02/2025 1:54 PM EDT Yoli Moreira MD BLOOD BANK TEST ORDERABLES Final Result [facility]
[address] [place] [address], * (ABNORMAL) CBC Auto Differential (08/01/2025 7:23 AM EDT) WBC 17.15(H) 3.40 - 10.80 10*3/mm3 08/01/2025 7:59 AM EDT [facility] RBC 3.74(L) 3.77 - 5.28 10*6/mm3 08/01/2025 7:59 AM EDT [facility] Hemoglobin 10.5(L) 12.0 - 15.9 g/dL 08/01/2025 7:59 AM EDT [facility] Hematocrit 33.2(L) 34.0 - 46.6 % 08/01/2025 7:59 AM EDT [facility] MCV 88.8 79.0 - 97.0 fL 08/01/2025 7:59 AM EDT [facility] MCH 28.1 26.6 - 33.0 pg 08/01/2025 7:59 AM EDT [facility] MCHC 31.6 31.5 - 35.7 g/dL 08/01/2025 7:59 AM EDT [facility] RDW 12.9 12.3 - 15.4 % 08/01/2025 7:59 AM EDT [facility] RDW-SD 42.0 37.0 - 54.0 fl 08/01/2025 7:59 AM EDT [facility] MPV 9.1 6.0 - 12.0 fL 08/01/2025 7:59 AM [facility] Platelets 366 140 - 450 10*3/mm3 08/01/2025 7:59 AM [facility] Neutrophil % 73.9 42.7 - 76.0 % 08/01/2025 7:59 AM [facility] Lymphocyte % 14.3(L) 19.6 - 45.3 % 08/01/2025 7:59 AM [facility] Monocyte % 9.8 5.0 - 12.0 % 08/01/2025 7:59 AM [facility] Eosinophil % 1.4 0.3 - 6.2 % 08/01/2025 7:59 AM [facility] Basophil % 0.2 0.0 - 1.5 % 08/01/2025 7:59 AM [facility] Immature Grans % 0.4 0.0 - 0.5 % 08/01/2025 7:59 AM [facility] Neutrophils, Absolute 12.68(H) 1.70 - 7.00 10*3/mm3 08/01/2025 7:59 AM [facility] Lymphocytes, Absolute 2.45 0.70 - 3.10 10*3/mm3 08/01/2025 7:59 AM [facility] Monocytes, Absolute 1.68(H) 0.10 - 0.90 10*3/mm3 08/01/2025 7:59 AM [facility] Eosinophils, Absolute 0.24 0.00 - 0.40 10*3/mm3 08/01/2025 7:59 AM [facility] Basophils, Absolute 0.03 0.00 - 0.20 10*3/mm3 08/01/2025 7:59 AM [facility] Immature Grans, Absolute 0.07(H) 0.00 - 0.05 10*3/mm3 08/01/2025 7:59 AM [facility] nRBC 0.0 0.0 - 0.2 /100 WBC 08/01/2025 7:59 AM [facility] Blood Venipuncture / Unknown 08/01/2025 7:23 AM EDT 08/01/2025 7:52 AM EDT us Yoli Moreira MD LAB BLOOD ORDERABLES Final Resul t [facility]
[address] [place] [address], * (ABNORMAL) Basic Metabolic Panel (08/01/2025 7:23 AM EDT) Glucose 102(H) 65 - 99 mg/dL 08/01/2025 8:27 AM EDT [facility] BUN 10.7 8.0 - 23.0 mg/dL 08/01/2025 8:27 AM EDT [facility] Creatinine 0.49(L) 0.57 - 1.00 mg/dL 08/01/2025 8:27 AM EDT [facility] Sodium 131(L) 136 - 145 mmol/L 08/01/2025 8:27 AM EDT [facility] Potassium 4.0 3.5 - 5.2 mmol/L 08/01/2025 8:27 AM EDT [facility] Chloride 98 98 - 107 mmol/L 08/01/2025 8:27 AM EDT [facility] CO2 24.7 22.0 - 29.0 mmol/L 08/01/2025 8:27 AM EDT [facility] Calcium 8.5(L) 8.6 - 10.5 mg/dL 08/01/2025 8:27 AM EDT [facility] BUN/Creatinine Ratio 21.8 7.0 - 25.0 08/01/2025 8:27 AM EDT [facility] Anion Gap 8.3 5.0 - 15.0 mmol/L 08/01/2025 8:27 AM EDT [facility] eGFR 93.1 >60.0 mL/min/1.7 3 08/01/2025 8:27 AM EDT [facility] Blood Venipuncture / Unknown 08/01/2025 7:23 AM EDT 08/01/2025 7:53 AM EDT [facility] - 08/01/2025 8:27 AM EDT [...] MD LAB BLOOD ORDERABLES Final Resul t [facility]
[address] [place] [address], * (ABNORMAL) aPTT (07/31/2025 10:52 PM EDT) PTT 34.8(L) 60.0 - 90.0 seconds 08/01/2025 12:47 AM EDT [facility] Blood Venipuncture / Unknown 07/31/2025 10:52 PM EDT 08/01/2025 12:31 AM EDT [facility] - 08/01/2025 12:47 AM EDT PTT = The equivalent PTT values for the therapeutic range of heparin levels at 0.3 to 0.5 U/ml are 60 to 70 seconds. Bear Tobar [facility] LAB BLOOD ORDERABLES F inal Result [facility]
[address] [place] [address], * Telemetry Scan (07/31/2025 4:36 PM EDT) [facility] ECG ORDERABLES Final Result * (ABNORMAL) aPTT (07/31/2025 4:15 PM EDT) PTT 35.2(L) 60.0 - 90.0 seconds 07/31/2025 4:35 PM EDT [facility] Blood Structure of right upper limb / Unknown Venipuncture / Unknown 07/31/2025 4:15 PM EDT 07/31/2025 4:19 PM EDT Narrative [facility] - 07/31/2025 4:35 PM EDT PTT = The equivalent PTT values for the therapeutic range of heparin levels at 0.3 to 0.5 U/ml are 60 to 70 seconds. Yoli Moreira MD LAB BLOOD ORDERABLES Final Resul t Performing Organization Address City/[facility]/ZIP Co de Phone Number [facility]
[address] [place] [address], * Protime-INR (07/31/2025 4:15 PM EDT) Protime 14.2 12.2 - 15.3 Seconds 07/31/2025 4:35 PM EDT [facility] INR 1.04 0.89 - 1.12 07/31/2025 4:35 PM EDT [facility] Blood Structure of right upper limb / Unknown Venipuncture / Unknown 07/31/2025 4:15 PM EDT 07/31/2025 4:19 PM EDT us Yoli Moreira MD LAB BLOOD ORDERABLES Final Resul t Performing Organization Address City/[facility]/ZIP Co de Phone Number [facility]
[address] [place] [address], * Heparin Anti-Xa (07/31/2025 4:15 PM EDT) Heparin Anti-Xa ([facility]) 0.31 0.30 - 0.70 IU/ml 07/31/2025 4:35 PM EDT [facility] Blood Structure of right upper limb / Unknown Venipuncture / Unknown 07/31/2025 4:15 PM EDT 07/31/2025 4:19 PM EDT Yoli Moreira MD LAB BLOOD ORDERABLES Final Resul t Performing Organization Address City/[facility] Co de Phone Number [facility]
[address] [place] [address], * Telemetry Scan (07/31/2025 3:10 PM EDT) [facility] ECG ORDERABLES Final Result * [place] Top (07/31/2025 2:37 PM EDT) Extra Tube Hold for add-ons. 07/31/2025 3:01 PM EDT [facility] Comment:Auto resulted. Blood Line / Unknown 07/31/2025 2: 37 PM EDT 07/31/2025 2:52 PM EDT Gregg Munoz MD LAB BLOOD ORDER ONLY Ely l Result [facility]
[address] [place] [address], * Gold Top - SST (07/31/2025 2:37 PM EDT) Extra Tube Hold for add-ons. 07/31/2025 3:01 PM EDT [facility] Comment:Auto resulted. Blood Line / Unknown 07/31/2025 2: 37 PM EDT 07/31/2025 2:52 PM EDT Gregg Munoz MD LAB BLOOD ORDER ONLY Ely l Result [facility]
[address] [place] [address], [place] [phone] * Digoxin Level (07/31/2025 2:37 PM EDT) Pathologist [facility] Digoxin 1.12 0.60 - 1.20 ng/mL 07/31/2025 3:23 PM EDT [facility] Blood Venipuncture / Unknown 07/31/2025 2:37 PM EDT 07/31/2025 2:48 PM EDT Narrative [facility] - 07/31/2025 3:23 PM EDT Results may be falsely increased if patient taking Biotin. Gregg Munoz MD LAB BLOOD ORDERABLES Ely l Result Performing Organization Address [facility]/ZIP Co de Phone Number [facility]
[address] [place] [address], [place] [phone] * (ABNORMAL) C-reactive Protein (07/31/2025 2:37 PM EDT) [facility] C-Reactive Protein 2.78(H) 0.00 - 0.50 mg/dL 07/31/2025 3:23 PM EDT [facility] Blood Venipuncture / Unknown 07/31/2025 2:37 PM EDT 07/31/2025 2:48 PM EDT Gregg Munoz MD LAB BLOOD ORDERABLES Ely l Result Performing Organization Address City/[facility]/ZIP Co de Phone Number [facility]
[address] [place] [address], [place] [phone] * (ABNORMAL) Sedimentation Rate (07/31/2025 2:37 PM EDT) Sed Rate 73(H) 0 - 30 mm/hr 07/31/2025 2:57 PM EDT [facility] Blood Venipuncture / Unknown 07/31/2025 2:37 PM EDT 07/31/2025 2:48 PM EDT Gregg Munoz MD LAB BLOOD ORDERABLES Ely l Result [facility]
[address] [place] [address], * (ABNORMAL) Comprehensive Metabolic Panel (07/31/2025 2:37 PM EDT) Pathologist [facility] Glucose 108(H) 65 - 99 mg/dL 07/31/2025 3:27 PM EDT [facility] BUN 13.9 8.0 - 23.0 mg/dL 07/31/2025 3:27 PM EDT [facility] Creatinine 0.55(L) 0.57 - 1.00 mg/dL 07/31/2025 3:27 PM EDT [facility] Sodium 132(L) 136 - 145 mmol/L 07/31/2025 3:27 PM EDT [facility] Potassium 4.5 3.5 - 5.2 mmol/L 07/31/2025 3:27 PM EDT [facility] [facility] Chloride 97(L) 98 - 107 mmol/L 07/31/2025 3:27 PM EDT [facility] CO2 24.3 22.0 - 29.0 mmol/L 07/31/2025 3:27 PM EDT [facility] Calcium 9.1 8.6 - 10.5 mg/dL 07/31/2025 3:27 PM EDT [facility] Total Protein 6.8 6.0 - 8.5 g/dL 07/31/2025 3:27 PM EDT [facility] Albumin 3.8 3.5 - 5.2 g/dL 07/31/2025 3:27 PM EDT [facility] ALT (SGPT) 20 1 - 33 U/L 07/31/2025 3:27 PM EDT [facility] AST (SGOT) 30 1 - 32 U/L 07/31/2025 3:27 PM EDT [facility] Alkaline Phosphatase 64 39 - 117 U/L 07/31/2025 3:27 PM EDT [facility] Total Bilirubin 0.2 0.0 - 1.2 mg/dL 07/31/2025 3:27 PM EDT [facility] Globulin 3.0 gm/dL 07/31/2025 3:27 PM EDT [facility] Comment:Calculated Result A/G Ratio 1.3 g/dL 07/31/2025 3:27 PM EDT [facility] BUN/Creatinine Ratio 25.3(H) 7.0 - 25.0 07/31/2025 3:27 PM EDT [facility] Anion Gap 10.7 5.0 - 15.0 mmol/L 07/31/2025 3:27 PM EDT [facility] eGFR 90.5 >60.0 mL/min/1.7 3 07/31/2025 3:27 PM EDT [facility] Blood Venipuncture / Unknown 07/31/2025 2:37 PM EDT 07/31/2025 2:48 PM EDT [facility] - 07/31/2025 3:27 PM EDT [...] does not include race as a factor Gregg Munoz MD LAB BLOOD ORDERABLES Ely coelho Result [facility]
[address] [place] [address], * (ABNORMAL) CBC Auto Differential (07/31/2025 2:37 PM EDT) WBC 11.90(H) 3.40 - 10.80 10*3/mm3 07/31/2025 2:53 PM EDT [facility] RBC 4.21 3.77 - 5.28 10*6/mm3 07/31/2025 2:53 PM EDT [facility] Hemoglobin 12.2 12.0 - 15.9 g/dL 07/31/2025 2:53 PM EDT [facility] Hematocrit 37.0 34.0 - 46.6 % 07/31/2025 2:53 PM EDT [facility] MCV 87.9 79.0 - 97.0 fL 07/31/2025 2:53 PM EDT [facility] MCH 29.0 26.6 - 33.0 pg 07/31/2025 2:53 PM EDT [facility] MCHC 33.0 31.5 - 35.7 g/dL 07/31/2025 2:53 PM EDT [facility] RDW 12.8 12.3 - 15.4 % 07/31/2025 2:53 PM EDT [facility] RDW-SD 41.0 37.0 - 54.0 fl 07/31/2025 2:53 PM EDT [facility] MPV 8.7 6.0 - 12.0 fL 07/31/2025 2:53 PM EDT [facility] Platelets 404 140 - 450 10*3/mm3 07/31/2025 2:53 PM EDT [facility] Neutrophil % 62.4 42.7 - 76.0 % 07/31/2025 2:53 PM EDT [facility] Lymphocyte % 22.7 19.6 - 45.3 % 07/31/2025 2:53 PM EDT [facility] Monocyte % 9.4 5.0 - 12.0 % 07/31/2025 2:53 PM EDT [facility] Eosinophil % 4.9 0.3 - 6.2 % 07/31/2025 2:53 PM EDT [facility] Basophil % 0.3 0.0 - 1.5 % 07/31/2025 2:53 PM EDT [facility] Immature Grans % 0.3 0.0 - 0.5 % 07/31/2025 2:53 PM EDT [facility] Neutrophils, Absolute 7.42(H) 1.70 - 7.00 10*3/mm3 07/31/2025 2:53 PM EDT [facility] Lymphocytes, Absolute 2.70 0.70 - 3.10 10*3/mm3 07/31/2025 2:53 PM EDT [facility] Monocytes, Absolute 1.12(H) 0.10 - 0.90 10*3/mm3 07/31/2025 2:53 PM EDT [facility] Eosinophils, Absolute 0.58(H) 0.00 - 0.40 10*3/mm3 07/31/2025 2:53 PM EDT [facility] Basophils, Absolute 0.04 0.00 - 0.20 10*3/mm3 07/31/2025 2:53 PM EDT [facility] Immature Grans, Absolute 0.04 0.00 - 0.05 10*3/mm3 07/31/2025 2:53 PM EDT [facility] nRBC 0.0 0.0 - 0.2 /100 WBC 07/31/2025 2:53 PM EDT [facility] Blood Venipuncture / Unknown 07/31/2025 2:37 PM EDT 07/31/2025 2:48 PM EDT us Gregg Munoz MD LAB BLOOD ORDERABLES Ely laquita Result [facility]
[address] [place] [address], documented in this encounter Visit Diagnoses Diagnosis [...] with warm soapy water or use hand anodizer. 3. Open the tube of mupirocin 2%. [...] Use if senna-docusate is ineffective, Starting on 07/31/25 at 1900, Use if no bowel movement after 12 hours. Mix in 6-8 ounces of water. Use 4-8 ounces of water, tea, or juice for each 17 gram dose. pravastatin (PRAVACHOL) tablet 40 mg 40 mg, Oral, Daily, First dose on 07/31/25 at 2000, Avoid grapefruit juice. Given 08/06/2025 [...] Alonso RN) 0609 (Given - Provider: Olga Shannon RN)1740 (Given - Provider: Arlette Alonso RN) 0507 [...] disposal. 1000 (Given - Provider: William Burnett, SUPERVISOR PHOTOCOMPOSITION)2055 (Given - Provider: Lester Veloz, SUPERVISOR PHOTOCOMPOSITION) 0845 (Given - Provider: Holly Alvarez, SUPERVISOR PHOTOCOMPOSITION)2204 (Given - Provider: Kate Arroyo, SUPERVISOR PHOTOCOMPOSITION) 0742 (Given - Provider: Krystal Bustillos, SUPERVISOR PHOTOCOMPOSITION)1234 (Not Given - Provider: Krystal Bustillos RRT [...] Alonso RN) 0901 (Given - Provider: Lucy Salgado, RN) clopidogrel (PLAVIX) tablet 75 mg 75 [...] Flush tube before and after administration (SHIRA) 0911 (Given - Provider: Arlette Alonso RN)1824 (Given - Provider: Arlette Alonso RN) 0902 (Given - Provider: Arlette Alonso RN)1740 (Given - Provider: Arlette Alonso RN) 0901 (Given - Provider: Lucy Salgado RN) Hydrocortisone (Perianal) (ANUSOL-HC) 2.5 % rectal cream Rectal, 2 Times Daily, First dose on Tue08/05/25 at 1115 1454 (Given - Provider: Arlette Alonso RN)2045 (Given - Provider: Olga Shannon RN) 0903 (Given - Provider: Arlette Alonso RN)2113 (Given - Provider: Bonny Jimenez RN) 0903 (Given - Provider: Lucy Salgado RN) mupirocin [...] with warm soapy water or use hand anodizer. 3. Open the tube of mupirocin 2%. [...] together and massage gently for 60 seconds. ([facility]) 910 (Given - Provider: Arlette Alonso RN)2044 (Given - Provider: Olga Shannon RN) 902 (Given - Provider: Arlette Alonso RN)2112 (Given - Provider: Bonny Jimenez, BRAVO) 900 (Given - Provider: Lucy Salgado RN) pravastatin [...] Scheduled, First dose on Tue07/31/25 at 2100 910 (Given - Provider: Arlette Alonso RN)2044 (Given - Provider: Olga Shannon, BRAVO) 902 (Given - Provider: Arlette Alonso RN)2112 (Given - Provider: Bonny Jimenez, BRAVO) 901 (Given - Provider: Lucy Salgado RN) tamsulosin (FLOMAX) 24 hr capsule 0.4 mg 0.4 mg, Oral, Daily, First dose on Tue08/05/25 at 1600, Do not crush or chew the capsules or tablets. The drug may not work as designed if the capsule or tablet is crushed or chewed. Swallow whole. If patient unable to swallow whole, contact pharmacy for alternative. 1552 (Given - Provider: Arlette Alonso RN) 0903 (Given - Provider: Arlette Alonso RN) 0901 (Given - Provider: Lucy Salgado RN) Continuous Medication Order 08/05/2025 08/06/2025 08/07/2025 heparin 28883 units/250 mL (100 units/mL) in 0.45 % [...] Arlette Alonso RN)2112 (Given - Provider: Olga Shannon RN) 0608 (Given - Provider: Olga Shannon RN)1201 [...] = Pain Score of 7-10, CPOT 5-8 0520 (Given - Provider: Orquidea Shelton RN) HYDROmorphone [...] CPOT 5-8 0110 (Given - Provider: Orquidea Shelton, BRAVO)0907 (Given - Provider: Arlette Alonso RN) HYDROmorphone (DILAUDID) injection 1 mg 1 mg, Intravenous, Every 2 Hours PRN, Severe Pain, Starting on 08/05/25 at 0923, For 2 days 5 hours, [...] BPA Driven Protocol Open Order & Select [facility] Electrolyte Replacement Protocol Algorithm to View [...] documented as of this encounter Care Teams Brass Instrument Repair Technician Relationship Specialty Start Date End Date Alexis Anand MD [address] [facility] [address] [facility] [address] [place] [address] PCP - General Family Medicine 07/23/25 documented as of this encounter
--- OUTSIDE RECORDS SUMMARY | 2025-08-02 13:00 | XMS_ITS | Encounter Summary ---
Author Organization [facility] Address [address] [place] [address] Care Team Providers Care Restaurant Culinary Manager Name Role Phone Alexis Montanez MD Primary Care Provider [phone] Reason for Visit * Auth/Cert Specialty Diagnoses / Procedures Referred By Gumaro ferrera Referred To Contact Diagnoses Claudication Critical limb ischemia of left lower extremity Referral ID Status Reason Start Date Expiration Date Visits Re quested Visits Authorized [id number] 1 1 Encounter Details Date Type Department Care Team (Latest Contact Info) Description 08/02/2025 2:00 PM EDT Anesthesia Event Converted [facility] ANESTHESIA [address] [place] [id number] Social History Tobacco Use Types Packs/Day Years [...] and heating? Patient unable to answer 08/01/2025 [facility] - Occupational Stress Questionnaire Answer Date Recorded [...] daily living? Patient unable to answer 08/01/2025 [facility] Utilities Answer Date Recorded In the past [...] as of this encounter Plan of Treatment Upcoming Encounters Date Type Department Care Team (Late st Contact Info) Description 09/16/2025 10:30 AM EST Office Visit [facility] [address] [place] [address] Melissa Briceño APRN [address] [facility] [address] [place] [address] documented as of this encounter Procedures Procedure [...] documented as of this encounter Care Teams Restaurant Culinary Manager Relationship Specialty Start Date End Date Alexis Montanez MD [facility]0 [facility] [address] [facility] [address] [place] [address] PCP - General Family Medicine 07/23/25 documented as of this encounter
--- OUTSIDE RECORDS SUMMARY | 2025-08-02 13:21 | XMS_ITS | Encounter Summary ---
Author Organization [facility] Address [address] [place] [address] Care Team Providers Care Community Living Coach Name Role Phone Alexis Montanez MD Primary Care Provider [phone] Reason for Visit * Auth/Cert Specialty Diagnoses / Procedures Referred By Gumaro ferrera Referred To Contact Diagnoses Claudication Critical limb ischemia of left lower extremity Referral ID Status Reason Start Date Expiration Date Visits Re quested Visits Authorized [id number] 1 1 Encounter Details Date Type Department Care Team (Late st Contact Info) Description 08/02/2025 2:21 PM EDT Anesthesia Event [facility] OR [address] [place] [address] Shahana Patel MD [address] [place] [address] Anesthesia Record Procedure Summary Procedure Name Responsible [...] Sulfate (Pressors) 50 MG/ML 10 mg phenylephrine (ANGELIKA-SYNEPHRIN E) 20 mg in sodium chloride 0.9 [...] by Jackson Barrios RN 08/04/25 1200 by Ириан Thayer RN Wound 08/02/25; 1542; Left ; anterior; great toe; Surgical; Closed Surgi; Amputated; 08/23/25; 1738 08/02/25 1542 by Jackson Barrios RN 08/23/25 1738 by Raquel Godinez, snowmaker 08/02/25; 1559; Left ; anterior; leg; Surgical; [...] and heating? Patient unable to answer 08/01/2025 [facility] [place] of Occupat ional Health - Occupational Stress [...] daily living? 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 Plan discussed with PENSIONHOLDER INFORMATION CLERK. CODE STATUS: Code Status (Patient has no pulse and is not breathing): CPR (Attempt to Resuscitate) Medical Interventions (Patient has pulse or is breathing): Full Support Level Of Support Discussed With: Patient documented in this encounter Plan of Treatment Upcoming Encounters Date Type Department Care Team (Late st Contact Info) Description 09/16/2025 10:30 AM EST Office Visit [facility] [address] [place] [address] Ayaanfransisca MelissaCHIN [address] [facility] [address] [place] [address] documented as of this encounter Procedures Procedure Name Priority Date/Time Associated Diagnosis Comments ANESTHESIA INTUBATION Routine 08/02/2025 2:36 PM EDT ANESTHESIA PERIPHERAL BLOCK Routine 08/02/2025 2:06 PM EDT documented in this encounter Results * BH AN ETT AIRWAY (08/02/2025 2:36 PM EDT) Narrative Shivani Hogue CRNA - 08/02/2025 2:36 PM EDT Shivani Hogue CRNA 08/02/2025 2:37 PM Airway Reason: elective Date/Time: 08/02/2025 2:25 PM Airway not difficult General Information and Staff Patient location during procedure: OR PENSIONHOLDER INFORMATION CLERK/CAA: Shivani Hogue CRNA Indications and Patient Condition [...] bilaterally with symmetric chest rise and fall Shivani Hogue CRNA ANESTHESIA ORDERABLES Fin al [...] documented as of this encounter Care Teams Community Living Coach Relationship Specialty Start Date End Date Alexis Montanez MD [address] [facility] [address] [facility] [address] [place] [address] PCP - General Family Medicine 07/23/25 documented as of this encounter
--- OUTSIDE RECORDS SUMMARY | 2025-08-14 06:00 | XMS_ITS ---
Author Organization [facility] Address [address] [facility] [address] [place] [id number] Care Team Providers Care Automatic Fancy Machine Operator Name Role Phone Buck Valencia Primary Care Provider [phone] Alexis Montanez [phone] Allergies Allergen (clinical drug ingredient) Drug/Non Drug Allergy documented on EMR Reaction Allergy Type Onset Date Status acetaminophen / hydrocodone HYDROcodone-Acetamino phen vomiting Drug Allergy Active codeine Codeine rash Drug Allergy Active morphine Morphine Unknown Drug Allergy Active Penicillin Unknown Drug Allergy Active REASON FOR VISIT BH f/u Encounters Encounter Location Date Provider Diagnosis [facility] [facility] [address] [place] [id number] 08/14/2025 Alexis Montanez Assessments Encounter Date Diagnosis (ICD Code) Assessment Notes Treatment Notes Treatment Clinical Notes Section Notes 08/14/2025 Other Discharge summary with available lab/diagnostic imaging results obtained and reviewed. Discharge medication list reconciled. Appropriate counseling provided. Moderate Complexity Plan Of Treatment Treatment Notes Assessment Notes Other Discharge summary wi th available lab/diagnostic imaging results obtained and reviewed. Discharge medication list reconciled. Appropriate counseling provided. Moderate Complexity Next Appt Details Provider Name:Alexis hickey, 09/03/2025 11:45:00 AM, [address] [facility] 36 [facility], [address], [place], [phone], Provider Name:Alexis hickey, 09/04/2025 10:15:00 AM, [address] [facility], [address], [place], [phone], Progress Notes * LASHAWN ZAMORA ADOB: [birth year] (85 yo F)Acc No.[id number]:08/14/2025 Progress Notes Patient: LASHAWN ALAN Provider: Jazmín Montanez M.D. :1940 A ge:85 Y S ex:Female Date:08/14/2025 Address:[address] [place] [address] Dr, [place], [id number] Pcp:Buck Valencia Subjective: * Chief Complaints: * 1 . BH f/u. * HPI: H PI: Patient is here today for a Transition of Care Visit. Discharge from the following Facility: [facility] where patient was admitted on 07/31/2025 for Left femoral to popliteal artery bypass, left popliteal endarterectomy and left great toe amputation also with subesequent Urinary retention. Discharge date: 08/07/2025 where she was sent home with Home Health and a catheter- f/u with Urologist was scheduled at discharge. Date of phone contact following discharge: 08/08/2025. * Medical History: T ype 2 Diabetes [...] Stent placed in right popliteal artery at [facility] 01/2025. * Hospitalization/Major Diagno stic Procedure: V omiting- [facility] ER 12/2012, [facility] 10/29-, [facility] 11/20-04/2014, Chest Pain- [facility] ER 10/28/2016, COPD, Asthma- [facility] ER 12/2017, COPD, Asthma- [facility] 04/2018, Stent Placement - [facility] 05/2018, stent placement- [facility] 03/20/19, Stent Placement (L) foot- [facility] 08/16-08/18/2019, PAD- [facility] 08/21-09/2020, Vascular Procedure-Leg Discomfort After Surgery- [facility] 03/13/2021. * Family History: F ather: [...] * Vitals: Assessment: Plan: * Treatment: * Procedure Codes: 9 9495 TRANS CARE MGMT 14 DAY DISCH, 1111F DSCHR MED/CURENT MED MERGE, G2211 Complex e/m visit add on * Images: Billing Information: * Visit Code: * Procedure Codes: 99241 TRANS CARE MGMT 14 DAY DISCH. 1111F DSCHR MED/CURENT MED MERGE. G2211 Complex e/m visit add on. * Electronic signature of Carmita Montanez MD on 09/01/2025 at 04:24 PM EST Sign off status: Pending * Provider: Jazmín Montanez M.D. Date: Generated for Oh little/Nena/Andrzej on: 11/01/2024 04:24 PM EST History and Physical Notes * HPI (History of Present Illness) Category Sub-Category Detail Notes Category Not es HPI Patient is here today for a [facility] sition of Care Visit. Discharge from the following Facility: [facility] where patient was admitted on 07/31/2025 for Left femoral to popliteal artery bypass, left popliteal endarterectomy and left great toe amputation also with subesequent Urinary retention. Discharge date: 08/07/2025 where she was sent home with Home Health and a catheter- f/u with Urologist was scheduled at discharge. Date of phone contact following discharge: 08/08/2025
--- OUTSIDE RECORDS SUMMARY | 2025-08-22 08:30 | XMS_ITS | Encounter Summary ---
Author Organization [facility] Address [address] [place] [address] Care Team Providers Care Software Engineering Supervisor Name Role Phone Alexis Montanez MD Primary Care Provider [phone] Encounter Details Date Type Department Care Team (Late st Contact Info) Description 08/22/2025 8:30 AM EST Pre-Admission Testing [facility] T [address] [place] [address] Social History Tobacco Use Types Packs/Day [...] and heating? Patient unable to answer 08/01/2025 [facility] - Occupational [...] living? Patient unable to answer 08/01/2025 [facility] Utilities Answer Date Recorded In the past 12 months has e [employer], gas, oil, or water [employer] threatened to shut off services in your [...] Patient unable to answer 08/22/2025 Preferred Language Panamanian 08/22/2025 PHQ-2 Answer Date Recorded Patient Health [...] documented in this encounter OR Notes * PAT - Amada Quach RN - 08/22/2025 8:30 [...] Description 09/16/2025 10:30 AM EST Office Visit [facility] [address] [facility] [address] [place] [address] Melissa Briceño APRN [address] [facility] [address] [place] [address] documented as of this encounter Procedures Procedure Name Priority Date/Time Associated Diagnosis Comments PROTIME-INR Routine 08/22/2025 8:51 AM EST CBC (NO DIFF) Routine 08/22/2025 8:51 AM EST BASIC METABOLIC PANEL Routine 08/22/2025 8:51 AM EST documented in this encounter Results * (ABNORMAL) Protime-INR (08/22/2025 8:51 AM EST) Protime 16.3(H) 12.2 - 15.3 Seconds 08/22/2025 10:11 AM EST [facility] INR 1.23(H) 0.89 - 1.12 08/22/2025 10:11 AM EST [facility] Blood Venipuncture / Unknown 08/22/2025 8:51 AM EST 08/22/2025 9:06 AM EST us [facility] [employer] LAB BLOOD ORDERABLES Final Res ult [facility]
[address] [place] [address], * (ABNORMAL) Basic Metabolic Panel (08/22/2025 8:51 AM EST) Pathologist [facility] Glucose 95 65 - 99 mg/dL 08/22/2025 9:49 AM [facility] BUN 17.9 8.0 - 23.0 mg/dL 08/22/2025 9:49 AM [facility] Creatinine 0.55(L) 0.57 - 1.00 mg/dL 08/22/2025 9:49 AM [facility] Sodium 140 136 - 145 mmol/L 08/22/2025 9:49 AM [facility] Potassium 4.2 3.5 - 5.2 mmol/L 08/22/2025 9:49 AM [facility] Chloride 102 98 - 107 mmol/L 08/22/2025 9:49 AM [facility] CO2 25.8 22.0 - 29.0 mmol/L 08/22/2025 9:49 AM [facility] Calcium 9.1 8.6 - 10.5 mg/dL 08/22/2025 9:49 AM [facility] BUN/Creatinine Ratio 32.5(H) 7.0 - 25.0 08/22/2025 9:49 AM [facility] Anion Gap 12.2 5.0 - 15.0 mmol/L 08/22/2025 9:49 AM [facility] eGFR 90.5 >60.0 mL/min/1.7 3 08/22/2025 9:49 AM [facility] Blood Venipuncture / Unknown 08/22/2025 8:51 AM EST 08/22/2025 9:06 AM EST [facility] - 08/22/2025 9:49 AM EST [...] does not include race as a factor Marlon [facility] LAB BLOOD ORDERABLES Final Res ult [facility]
[address] [place] [id number], * (ABNORMAL) CBC (No Diff) (08/22/2025 8:51 AM EST) WBC 14.03(H) 3.40 - 10.80 10*3/mm3 08/22/2025 9:09 AM EST [facility] RBC 3.86 3.77 - 5.28 10*6/mm3 08/22/2025 9:09 AM [facility] Hemoglobin 10.4(L) 12.0 - 15.9 g/dL 08/22/2025 9:09 AM [facility] Hematocrit 34.7 34.0 - 46.6 % 08/22/2025 9:09 AM EST [facility] MCV 89.9 79.0 - 97.0 fL 08/22/2025 9:09 AM [facility] MCH 26.9 26.6 - 33.0 pg 08/22/2025 9:09 AM [facility] MCHC 30.0(L) 31.5 - 35.7 g/dL 08/22/2025 9:09 AM [facility] RDW 13.1 12.3 - 15.4 % 08/22/2025 9:09 AM [facility] RDW-SD 42.9 37.0 - 54.0 fl 08/22/2025 9:09 AM [facility] MPV 8.8 6.0 - 12.0 fL 08/22/2025 9:09 AM [facility] Platelets 506(H) 140 - 450 10*3/mm3 08/22/2025 9:09 AM [facility] Blood Venipuncture / Unknown 08/22/2025 8:51 AM EST 08/22/2025 9:06 AM EST us Marlon [facility] MD LAB BLOOD ORDERABLES Final Res ult [facility]
[address] [place] [address], documented in this encounter Visit Diagnoses Not on filedocumented in this encounter Additional Health Concerns Infection Onset Date Last Indicated Resolved Time MRSA 07/24/2025 07/24/2025 documented as of this encounter Care Teams Software Engineering Supervisor Relationship Specialty Start Date End Date Alexis Montanez MD [address] [facility] [address] [facility] [address] [place] [address] PCP - General Family Medicine 07/23/25 documented as of this encounter
--- OUTSIDE RECORDS SUMMARY | 2025-08-23 08:57 | XMS_ITS | Encounter Summary ---
Author Organization [facility] Address [address] [place] [address] Care Team Providers Care Dental Office Receptionist Name Role Phone Alexis Montanez MD Primary Care Provider + [phone] Reason for Referral * Home Health (Routine) - Pending Review Specialty Diagnoses / Procedures Referred By Contact Referred To Contact Home Health Services Diagnoses Critical limb ischemia of left lower extremity Toe necrosis PAD (peripheral artery disease) Type 2 diabetes mellitus with diabetic neuropathy, without long-term current use of insulin Procedures UT OFFICE/OUTPATIENT NEW MODERATE MDM 45 MINUTES Magali Jeffery PA-C [address] [place] [id number] Phone: tel: fax: Referral ID Status Reason Start Date Expiration Date Visits Requested Visits Authorized [id number] Pending Review Specialty Services Required 11/27/2026 999 999 Reason for Visit * Auth/Cert Specialty Diagnoses / Procedures Referred By Gumaro ferrera Referred To Contact Diagnoses Critical limb ischemia of left lower extremity Toe necrosis Critical limb ischemia of left lower extremity [I70.222] Toe necrosis [I96] Procedures FIRST METATARSAL AND SECOND TOE AMPUTATION WITH FOOT DEBRIDEMENT Referral ID Status Reason Start Date Expiration Date Visits Re quested Visits Authorized [id number] 1 1 Encounter Details Date Type Department Care Team (Late st Contact Info) Description 08/23/2025 8:57 AM EST - 08/28/2025 2:51 PM [facility] Hospital Encounter [address] [place] [address] Junior Zhao MD [address] [place] [address] Neda Ocampo DO [address] [place], [place] [id number] Deblert Quesada DO [address] [facility] [address] [place] [address] Rowena Mancera MD [address] [facility] 4[address] [place], [place] [id number] PAD (peripheral artery disease) (Primary Dx); Critical limb ischemia of left lower extremity; Toe necrosis; Type 2 diabetes mellitus with diabetic neuropathy, without long-term current use of insulin; Claudication Discharge Disposition: Home or Self Care Social History Tobacco Use Types Packs/Day Years Used Date Smoking Tobacco: Never Smokeless Tobacco: Never Alcohol Use Standard Drinks/Week Comments Defer 0 (1 standard drink = 0.6 oz [...] and heating? Patient unable to answer 08/01/2025 [facility] [place] of Occupat ional Health - Occupational Stress [...] daily living? Patient unable to answer 08/01/2025 [facility] Utilities Answer Date Recorded In the past 12 months has e [employer], gas, oil, or water company threatened to [...] Answer Date Recorded Current Living Arrangements home 08/17 Potentially Unsafe Housing Conditions none 08/26/2025 Family and Community Support Answer Brian e [...] GED or equivalent Patient unable to answer 08/26/2025 Preferred Language Nigerien 08/26/2025 PHQ-2 Answer Date Recorded Patient Health Questionnaire-2 Score 0 07/24/2025 Comments No Sex and Gender Information Value Date Recorded Sex Assigned at Not on file Legal Sex Female 4:32 PM EDT Gender Identity Not on file Sexual Orientation Not on file documented as of this encounter Last Filed Vital Signs Vital Sign Reading Time Taken Comments Blood Pressure 151/75 08/28/2025 11:47 AM EST Pulse 74 08/28/2025 11:47 AM EST Temperature 37.2 C (98.9 F) 08/28/2025 10:45 AM EST Respiratory Rate 16 08/28/2025 10:45 AM EST Oxygen Saturation 99% 08/28/2025 10:45 AM EST Inhaled Oxygen Concentration - - Weight 45 kg (99 lb 3.3 oz) 08/23/2025 10:08 AM EST Height 149.9 cm (4' 11.02 ) 08/23/2025 10:08 AM EST Body Mass Index 20.03 08/23/2025 10:08 AM EST documented in this encounter Functional Status * Question Answer Date of Assessment Author 1. Wish to be (Past 1 Month) No 08/23/2025 9:26 AM EST Ana Zarco RN 2. Non-Specific Active Suici nilton Thoughts (Past 1 Month) No 08/23/2025 9:26 AM EST Angela Zarco RN * Calculated C-SSRS Risk Score (Lifetime/Recent) Answer Date of Assessment Author No Risk Indicated 08/23/2025 9:26 AM Ana Bernal RN * Cobb Suicide Severity Rating Scale (Screener/Recent Self-Report) Question Answer Date of Assessment Author 6. Suicidal Behavior (Lifetime) No 5 9:26 AM Ana Ta RN documented as of this encounter Discharge Instructions * Attachments The following attachments cannot be sent through Care Everywhere. * Poor Blood Flow (Peripheral Vascular Disease): What to Know (Nigerien) * Surgery to Remove Part of a Leg (Leg Amputation): What to Expect (Nigerien) * Surgery to Remove Part of a Leg (Leg Amputation): What to Know After (Nigerien) * Wound Care After Stitches Cecil or Tape Strips Are Removed: What to Know After (Nigerien) * Iron Capsules or Tablets (Supplement) (Nigerien) * Folic Acid Tablets (Nigerien) * Hydrocodone; Acetaminophen Capsules or Tablets (Nigerien) * Memantine Tablets (Nigerien) * Naloxone Nasal Hope[place] (Nigerien) * Indwelling Urinary Catheter Bag Care Adult (Nigerien) documented in this encounter Medications at Time of Discharge apixaban (ELIQUIS) 2.5 MG tablet tablet Take 1 tablet by mouth 2 (Two) Times a Day. 08/28/2025 budesonide-formot summer (SYMBICORT) 160-4.5 MCG/ACT inhaler Inhale 2 puffs 2 (Two) Times a Day. carvedilol (COREG) 6.25 MG tablet Take 1 tablet by mouth 2 (Two) Times a Day With Meals. clopidogrel (PLAVIX) 75 MG tablet Take 1 tablet by mouth Daily. digoxin (LANOXIN) 125 MCG tablet Take 1 tablet by mouth Daily. ferrous sulfate 325 (65 FE) MG tablet Take 1 tablet by mouth Every Other Day. 45 tablet 1 08/29/2025 folic acid (FOLVITE) 1 MG tablet Take 1 tablet by mouth Daily. 90 tablet 1 08/29/2025 gabapentin (NEURONTIN) 300 MG capsuleIndication s:PAD (peripheral artery disease) Take 1 capsule by mouth 2 (Two) Times a Day With Meals. 08/28/2025 HYDROcodone-aceta minophen (NORCO) 5-325 MG per tabletIndications :PAD (peripheral artery disease),Claudica tion Take 1 tablet by mouth Every 4 (Four) Hours As Needed for Moderate Pain or Severe Pain. 18 tablet 08/28/2025 memantine (NAMENDA) 5 MG tablet Take 1 tablet by mouth Daily. 30 tablet 2 08/28/2025 pravastatin (PRAVACHOL) 40 MG tablet Take 1 tablet by mouth Every Night. QUEtiapine (SEROquel) 25 MG tablet Take 0.5 tablets by mouth Every Night. 30 tablet 1 08/28/2025 tamsulosin (FLOMAX) 0.4 MG capsule 24 hr capsule Take 1 capsule by mouth Daily. 30 capsule 08/28/2025 naloxone (NARCAN) 4 MG/0.1ML nasal spray Call 911. Don't prime. Hopewell in 1 nostril for overdose. Repeat in 2-3 minutes in other nostril if no or minimal breathing/resp onsiveness. 2 each 08/28/2025 documented as of this encounter Progress Notes * Rani Moser, RN - 08/28/2025 11:52 AM EST Start PACC Note Home Health Referral Evaluated patient and on Home Care and services available. Patient offered choice of available HHC and agreeable to SN/PT/OT services with [facility]. Isolation Precautions: No active isolations START PATIENT REGISTRATION INFORMATION Order Information Order Signing Physician: Rowena Mancera MD Service Ordered RN?: Yes Service Ordered PT?: Yes Service Ordered OT?: Yes Service Ordered ST?: No Service Ordered CIVIL ENGINEERING DIRECTOR?: No Service Ordered GEODETIC TECHNICIAN?: No Following Physician: Alexis Montanez MD Following Physician Overseeing Physician: Alexis Montanez MD (Required for Residents Only) Agreeable to Follow ? Yes Date/Time of Call 08/28/25 11:52 EST, Spoke with: orders in epic, current patient, POC MD is agreeable Care Coordination Same Day SOC?: No Primary Care Physician: Alexis Montanez MD Primary Care Physician Primary Care Physician Address: [address] [place] [address] / [facility] [address] Visit Instructions: N/A Service Discharge Location Type: Home Service Facility Name: N/A Service Floor Facility: N/A Service Room No: N/A Demographics Patient Last Name: Sera Patient First Name: Hattie Language/Communication Barrier: none Service Address: [address] [place] [address] Service City: [place] Service State: [place] Service Zip: [address] Service Other Phone Numbers: Telephone Information: Emergency Contact: Extended Emergency Contact Information Primary Emergency Contact: LAKESHA DAVILA Address: [address] [place] [address] [facility] Mobile Relation: Daughter Transportation Equipment Painter needed? No Secondary Emergency Contact: ESTELA SANTOS Mobile Relation: Daughter Transportation Equipment Painter needed? No Admission Information Admit Date: 08/23/2025 Patient Status at Discharge: Inpatient Admitting Diagnosis: Critical limb ischemia of left lower extremity [I70.222] Toe necrosis [I96] Caregiver Information Caregiver First Name: Lakesha Caregiver Last Name: Mariangel Caregiver Relationship to Patient: daughter Caregiver Caregiver Notes: N/A HITECH Hi-Tech List Wound/Ostomy/Drain HIGHTECH: HI TECH - WOUND CARE Orders: Left BKA stump incision carae - apply xeroform or mepitel, cover with gauze, 4x4s, secure with kerlix and change every day and PRN if soiled Wound following physician: Irma Zhao MD Last time wound care completed?: 08/28 Supplies sent home?: Yes How many days are covered with supplies?: unknown Teachable Caregiver Teachable Caregiver First Name: Lakesha Teachable Caregiver Last Name: Mariangel Teachable Caregiver Relationship to Patient: daughter Teachable Caregiver Teachable Caregiver Notes: N/A Teachable Caregiver available for Start of Care visit?: Yes Teachable Caregiver agreeable to provide skilled High Tech care per physician's orders?: Yes END PATIENT REGISTRATION INFORMATION Start PACC Summary Additional Comments: current home health patient END PACC Summary Discharge Date: Pending Referral Source: AHMET López Signed By: Rani Moser RN, 08/28/2025, 11:52 EST Date/Time: 08/28/25 11:52 EST End PACC Note * Trevor De Santigao CRNA - 08/28/2025 8:[address] [facility] pain service Inpatient Progress Note Patient Name: Hattie Santos : 1940 [facility] Pain Service Inpatient Progress Note: Analgesia:Good Pain Score:0/10 LOC: alert and awake Resp Status: room air Cardiac: VS stable Side Effects:None Catheter Site:clean, dressing intact and dry Cath type: peripheral nerve cath(InfuSystem) Volume: 1mL,5ml, 5ml InfuSystem Pump. Catheter Plan:Catheter to remain Insitu and Continue catheter infusion rate unchanged Comments: * Jorge Rock CRNA - 08/27/2025 8:25 AM EST [facility] Acute pain service Inpatient Progress Note Patient Name: Hattie Santos : 1940 [facility] Pain Service Inpatient Progress Note: Analgesia:Good Pain Score:0/10 LOC: alert and awake Resp Status: room air Cardiac: VS stable Side Effects:None Catheter Site:clean, dressing intact and dry Cath type: peripheral nerve cath(InfuSystem) Volume: 1mL,5ml, 5ml InfuSystem Pump. Catheter Plan:Catheter to remain Insitu and Continue catheter infusion rate unchanged * Magali Jeffery PA-C - 08/26/2025 12:31 PM EST Images from the original note were not included. [facility] Medicine Services PROGRESS NOTE Patient Name: Hattie Santos : 1940 Date of Admission: 08/23/2025 Primary Care Physician: Alexis Montanez MD Subjective CC: F/u ABHIJEET HPI: Asleep in bed. Daughter at bedside. Daughter reports that patient slept all day yesterday, through the night and had not been awake much at all so far today. Has appeared comfortable without significant complaints of pain. Patient woke to voice during my exam - denied pain. Was able to tell me her name, date of and that she was in a hospital in [place], [place]. She did not know the month or the year - daughter reports this is baseline. She did not know she had surgery but said she wasn't surprised to hear that she did. When I asked where she had surgery, she said my butt and when I asked why, she said because I make a mess. Daughter thought patient was referring to her frequent loose BMs. Objective Vital Signs: Temp: [98 ??F (36.7 ??C)-98.6 ??F (37 ??C)] 98.4 ??F (36.9 ??C) Heart Rate: [72-82] 82 Resp: [16-18] 16 BP: (112-132)/(49-57) 119/52 Physical Exam: Constitutional: No acute distress, somnolent but interacted with stimulation HENT: NCAT, mucous membranes moist Respiratory: Clear to auscultation bilaterally, normal respiratory effort Cardiovascular: RRR Gastrointestinal: Positive bowel sounds, soft, nontender, nondistended : Pepe catheter in place with clear, yellow urine in bag Musculoskeletal: No RLE edema, L BKA stump dressed - I did not remove for exam. Nerve catheter in place Psychiatric: Appropriate affect, cooperative with exam Neurologic: Oriented to self and location, speech clear, moves all extremities spontaneously without focal deficits Results Reviewed: LAB RESULTS: Lab 08/26/25 0808/25/25 0528 08/24/25 0605 08/22/25 0851 WBC 11.81* 9.69 11.45* 14.03* HEMOGLOBIN 7.7* 7.5* 8.1* 10.4* HEMATOCRIT 24.5* 23.6* 26.0* 34.7 PLATELETS 376 367 407 506* NEUTROS ABS -- -- 7.83* -- IMMATURE GRANS (ABS) -- -- 0.07* -- LYMPHS ABS -- -- 1.95 -- MONOS ABS -- -- 1.37* -- EOS ABS -- -- 0.20 -- MCV 87.8 87.4 90.3 89.9 PROTIME -- -- -- 16.3* Lab 08/26/25 0803 08/25/25 0528 08/24/25 0605 08/22/25 0851 SODIUM 138 134* 137 140 POTASSIUM 3.3* 3.7 4.3 4.2 CHLORIDE 102 100 102 102 CO2 29.1* 25.7 24.8 25.8 ANION GAP 6.9 8.3 10.2 12.2 BUN 6.6* 10.1 15.8 17.9 CREATININE 0.34* 0.33* 0.40* 0.55* EGFR 101.6 102.4 97.7 90.5 GLUCOSE 112* 107* 81 95 CALCIUM 7.8* 7.8* 8.1* 9.1 MAGNESIUM 2.0 1.5* -- -- PHOSPHORUS 2.6 -- -- -- Lab 08/22/25 08 PROTIME 16.3* INR 1.23* Lab 08/26/25 0803 08/25/25 0528 IRON -- 11* IRON SATURATION (TSAT) -- 6* TIBC -- 189* TRANSFERRIN -- 127* FERRITIN -- 77.90 FOLATE 6.55 -- VITAMIN B 12 1,062* -- Brief Urine Lab Results (Last result in the past 365 days) Color Clarity Blood Leuk Est Nitrite Protein CREAT Urine HCG 07/24/25 2203 Yellow Cloudy Negative Small (1+) Negative Negative Microbiology Results Abnormal None No radiology results from the last 24 hrs Current medications: Scheduled Meds:budesonide-formoterol, 2 puff, Inhalation, BID - RT carvedilol, 6.25 mg, Oral, BID With Meals clopidogrel, 75 mg, Oral, Daily digoxin, 125 mcg, Oral, Daily ferric gluconate, 125 mg, Intravenous, Daily gabapentin, 300 mg, Oral, Q12H insulin lispro, 2-7 Units, Subcutaneous, 4x Daily AC & at Bedtime potassium chloride ER, 40 mEq, Oral, Q4H pravastatin, 40 mg, Oral, Nightly QUEtiapine, 12.5 mg, Oral, Nightly senna-docusate sodium, 2 tablet, Oral, BID tamsulosin, 0.4 mg, Oral, Daily Continuous Infusions:ropivacaine, sodium chloride, 125 mL/hr, Last Rate: 125 mL/hr (08/26/25 1110) PRN Meds:. acetaminophen OR acetaminophen Albuterol Sulfate NEB Orderable senna-docusate sodium AND polyethylene glycol AND bisacodyl AND bisacodyl Calcium Replacement - Follow Nurse / BPA Driven Protocol dextrose dextrose glucagon (human recombinant) HYDROcodone-acetaminophen Magnesium Low Dose Replacement - Follow Nurse / BPA Driven Protocol nitroglycerin Phosphorus Replacement - Follow Nurse / BPA Driven Protocol Potassium Replacement - Follow Nurse / BPA Driven Protocol Assessment & Plan Active Hospital Problems Diagnosis POA Critical limb ischemia of left lower extremity [I70.222] Yes Acute urinary retention [R33.8] Yes Type 2 diabetes mellitus with diabetic neuropathy, without long-term current use of insulin [E11.40] Yes Primary hypertension [I10] Yes Resolved Hospital Problems No resolved problems to display. Brief Hospital Course to date: Hattie Santos is a 85yoF w/ PMH of CAD, HTN, HLD, PAD w/ prior femoropopliteal stenting that subsequently occluded on 08/02/25 and mild cognitive impairment. She underwent LT fem-pop bypass, popliteal endarterectomy and 1st toe amputation for critical limb ischemia w/ gangrenous toe. She returned to [facility] 08/23/25 for planned LT 1st TMA, 2nd toe amp, and wound debridement. Upon arrival, the decision was made to proceed w/ BKA. 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 Zhao) - Nerve block in place - Decrease Baldwin to 5mg Q4H PRN and decrease Gabapentin to home dose 300mg BID, due to sedation - Post-op care including wound management per surgical service - Spoke with vascular surgery service today - OK to consult PT/OT Anemia Post-surgical blood loss - Iron studies consistent with iron-deficiency / AOCD - Start IV iron - can transition to PO once complete or when discharged - B12 normal - Folate low-normal. Add PO supplement Recent urinary retention - Pepe placed 2/2 urinary retention following last surgery; unclear if she had any follow up - Will consider voiding trial prior to DC once more alert - If discharges with pepe, needs OP urology referral for continued management - Continue Flomax PAF HTN HLD CAD - Continue Plavix, Digoxin, and Pravastatin - Coreg held this AM due to low DBP - consider holding if persists - Discussed with vascular surgery on 08/26 - OK to resume Eliquis. DM2 - A1c 6.03% (07/24/25) - Continue SSI Previous hx of hospital acquired delirium Likely MCI vs dementia - Start on Seroquel 12.5mg HS (discharged on this during recent hospitalization) - Poor PO intake - added Boost supplements - Can refer to neurology at [place] for formal cognitive eval if family desires - Offered to start Aricept +/- Namenda. Daughter says she will discuss neuro referral and meds withPOA (granddaughter) Asthma - Continue Symbicort and prn nebs Expected Discharge Location and Transportation: home with family vs SNF Expected Discharge Expected Discharge Date: 08/30/2025; Expected Discharge Time: VTE Prophylaxis:Mechanical VTE prophylaxis orders are present. AM-PAC 6 Clicks Score (PT): 11 (08/25/25 0839) CODE STATUS: Code Status and Medical Interventions: CPR (Attempt to Resuscitate); Full Support Ordered at: 08/23/251818 Code Status (Patient has no pulse and is not breathing): CPR (Attempt to Resuscitate) Medical Interventions (Patient has pulse or is breathing): Full Support Level Of Support Discussed With: Patient Next of Kin (If No Surrogate) Magali Jeffery PA-C 08/26/25 Cosigned by Delbert Quesada DO at 08/26/2025 1:18 PM EST Associated attestation - Delbert Quesada DO - 08/26/2025 1:18 PM EST I have reviewed this documentation and agree. * Virgie Rodriguez APRN - 08/26/2025 11:19 AM EST Images from the original note were not included. VASCULAR SURGERY PROGRESS NOTE Subjective Resting in bed with daughter at bedside -- reports pain seems to be controlled today and has felt better since amp. Objective Last Recorded Vitals Blood pressure 121/58, pulse 81, temperature 98.4 ??F (36.9 ??C), temperature source Oral, resp. rate 16, height 149.9 cm (59.02 ), weight 45 kg (99 lb 3.3 oz), SpO2 97%. Physical Exam Gen: awake; elderly white female; resting in bed HEENT: [place] conjunctivae, MMM Lungs: Normal respiratory effort Ext: motor intact; LEFT BKA dressing changed; LLE medial incision/phan Neuro: Follows simple commands Psych: Apropriate mood, baseline memory loss Labs: Lab Results (last 24 hours) Procedure Component Value Units Date/Time Folate [[id number]] (Normal) Collected: 08/26/25802 Specimen: Blood Updated: 08/26/251228 Folate 6.55 ng/mL Narrative: Results may be falsely increased if patient taking Biotin. Vitamin B12 [[id number]] (Abnormal) Collected: 08/26/25802 Specimen: Blood Updated: 08/26/251228 Vitamin B-12 1,062 pg/mL Narrative: Results may be falsely increased if patient taking Biotin. POC Glucose Once [[id number]] (Abnormal) Collected: 08/26/25 1137 Specimen: Blood Updated: 08/26/25 1140 Glucose 142 mg/dL Comment: Serial Number: [id number]: [id number] Magnesium [[id number]] (Normal) Collected: 08/26/25802 Specimen: Blood Updated: 08/26/25 0905 Magnesium 2.0 mg/dL Basic Metabolic Panel [[id number]] (Abnormal) Collected: 08/26/25802 Specimen: Blood Updated: 08/26/25 0859 Glucose 112 mg/dL BUN 6.6 mg/dL Creatinine 0.34 mg/dL Sodium 138 mmol/L Potassium 3.3 mmol/L Chloride 102 mmol/L CO2 29.1 mmol/L Calcium 7.8 mg/dL BUN/Creatinine Ratio 19.4 Anion Gap 6.9 mmol/L eGFR 101.6 mL/min/1.73 Narrative: GFR Categories in Chronic Kidney [...] does not include race as a factor Phosphorus [[id number]] (Normal) Collected: 08/26/25802 Specimen: Blood Updated: 08/26/2559 Phosphorus 2.6 mg/dL CBC (No Diff) [[id number]] (Abnormal) Collected: 08/26/25802 Specimen: Blood Updated: 08/26/25849 WBC 11.81 10*3/mm3 RBC 2.79 10*6/mm3 Hemoglobin 7.7 g/dL Hematocrit 24.5 % MCV 87.8 fL MCH 27.6 pg MCHC 31.4 g/dL RDW 13.2 % RDW-SD 41.9 fl MPV 9.2 fL Platelets 376 10*3/mm3 POC Glucose Once [[id number]] (Normal) Collected: 08/26/25721 Specimen: Blood Updated: 08/26/25724 Glucose 119 mg/dL Comment: Serial Number: [id number]: [id number] POC Glucose Once [[id number]] (Abnormal) Collected: 08/25/251946 Specimen: Blood Updated: 08/25/25 1950 Glucose 199 mg/dL Comment: Serial Number: [id number]: [id number] Nova Comment 1 Notified Patients RN POC Glucose Once [[id number]] (Abnormal) Collected: 08/25/251626 Specimen: Blood Updated: 08/25/25 1629 Glucose 144 mg/dL Comment: Serial Number: [id number]: [id number] Peripheral Block Roscoe Storm CRNA 08/23/2025 10:51 AM Peripheral Block Patient reassessed immediately prior to procedure Patient location during procedure: pre-op Reason for block: at surgeon's request and post-op pain management Performed by YENIFER/CAA: Roscoe Storm CRNA Assisted by: Desiree Hankins RN Preanesthetic Checklist Completed: patient identified, IV checked, site marked, risks and benefits discussed, surgical consent, monitors and equipment checked, pre-op evaluation and timeout performed Prep: Pt Position: supine Sterile barriers:cap, gloves, mask, sterile barriers and washed/disinfected hands Prep: ChloraPrep Patient monitoring: blood pressure monitoring, continuous pulse oximetry and EKG Procedure Performed under: spinal Guidance:ultrasound guided ULTRASOUND INTERPRETATION. Using ultrasound guidance [...] images obtained, printed/placed on chart Laterality:left Block Type:adductor canal block Injection Technique:single-shot Needle Type:Tuohy and echogenic Needle Gauge:18 G Resistance on Injection: none Catheter Size:20 G (20g) Medications Used: bupivacaine PF (MARCAINE) 0.25 % injection - Injection 10 mL - 08/23/2025 10:22:00 AM fentaNYL citrate (PF) (SUBLIMAZE) injection - Intravenous 25 mcg - 08/23/2025 10:22:00 AM dexamethasone sodium phosphate injection - Injection 2 mg - 08/23/2025 10:22:00 AM Medications Comment:0.375% marcaine used Post Assessment Injection Assessment: negative aspiration for heme, incremental injection and no paresthesia on injection Patient Tolerance:comfortable throughout block Complications:no Additional Notes SINGLE shot A high-frequency linear transducer, with sterile cover, was placed on the anterior mid-thigh (between the anterior superior iliac spine and patella). The transducer was then moved medially to identify the Sartorius muscle (Freddie), Vastus Medialis muscle (VMM), Superficial Femoral Artery (SFA) and Vein. The transducer was then moved cephalad or caudad to position the SFA in the middle of the Freddie. The insertion site was prepped and draped in sterile fashion. Skin and cutaneous tissue was infiltrated with 2-5 ml of 1% Lidocaine. Using ultrasound-guidance, a 20-gauge B-Reid 4 Ultraplex 360 non-stimulating echogenic needle was advanced in plane from lateral to medial. Preservative-free normal saline was utilized for hydro-dissection of tissue, advancement of needle, and to confirm needle placement below the fascial plane of the Freddie where the Nerve to the VMM is located. Local anesthetic (LA) 5 ml deposited here. The needle continues its path lateral to the SFA at the level of the Saphenous Nerve. The remainder of the LA was deposited at the 10-11 o'clock position of the SFA. This injection created a space between the Freddie and the SFA. Aspiration every 5 ml to prevent intravascular injection. Injection was completed with negative aspiration of blood and negative intravascular injection. Injection pressures were normal with minimal resistance. Performed by: Roscoe Storm, YENIFER Peripheral Block Roscoe Storm CRNA 08/23/2025 10:50 AM Peripheral Block Patient reassessed immediately prior to procedure Patient location during procedure: pre-op Reason for block: at surgeon's request and post-op pain management Performed by YENIFER/CAA: Roscoe Storm, YENIFER Assisted by: Desiree Hankins RN Preanesthetic Checklist Completed: patient identified, IV [...] printed/placed on chart Laterality:left Block Type:popliteal Injection Technique:catheter Needle Type:echogenic and Tuohy Needle Gauge:18 G Resistance on Injection: none Catheter Size:20 G Cath Depth at skin: 8 cm Medications Used: bupivacaine PF (MARCAINE) 0.25 % injection - Injection 20 mL - 08/23/2025 10:29:00 AM Medications Comment:0.375% marcaine used Post Assessment Injection Assessment: negative aspiration for heme, no paresthesia on injection and incremental injection Patient Tolerance:comfortable throughout block Complications:no Additional Notes CATHETER A high-frequency linear transducer, with sterile cover, [...] 2-5 ml of 1% Lidocaine. Using ultrasound-guidance, an 18-gauge Contiplex Ultra 360 Touhy needle was advanced in plane from lateral to medial. Preservative-free normal saline was utilized for hydro-dissection of tissue, advancement of Touhy needle, and to confirm final needle placement posterior to the nerves. Local anesthetic injection spread, in incremental 3-5 ml injections, to surround both nerve structures. Aspiration every 5 ml to prevent intravascular injection. Injection was completed with negative aspiration of blood and negative intravascular injection. Injection pressures were normal with minimal resistance. A 20-gauge Contiplex Echo catheter was placed through the needle and advance out the tip of the Touhy 1-3 cm. The Touhy needle was then removed, and final catheter position verified (Below/above or Anterior/Posterior) the nerve structures. The catheter was secured in the usual fashion with skin glue, benzoin, steri-strips, CHG tegaderm and Label noting Nerve Block Catheter . Jerk tape applied at yellow connector and catheter connection. 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 Zhao - s/p left below knee amputation; left tibial nerve free pedicle transfer; myodesis on 08/23/[address] Zhao - Left great toe ulcer - Diabetes mellitus type 2 with neuropathy - Hypertension - Chronic AFIB on eliquis - Hx pacemaker placement - Chronic asthma - Hyperlipidemia Plan - pain control PRN - wound care - continue eliquis, plavix - glycemic control - PT / OT - left BKA dressing changed today -- nursing to change going forward - follow-up outpatient in our office in 1 month for suture removal - please call for any further vascular concerns Discharge Planning: Pending * Duc Roblero CRNA - 08/26/2025 8:[address] [facility] pain service Inpatient Progress Note Patient Name: Hattie Santos : 1940 [facility] Pain Service Inpatient Progress Note: Analgesia:Good Pain scale: Patient sleeping, family member says pain seems well controlled. LOC: alert and awake Resp Status: room air Cardiac: VS stable Side Effects:None Catheter Site:clean, dressing intact and dry Cath type: peripheral nerve cath(InfuSystem) Volume: 1mL,5ml, 5ml InfuSystem Pump. Dosing/Volume: ropivacaine 0.2% Catheter Plan:Catheter to remain Insitu and Continue catheter infusion rate unchanged Comments: * Shahana Patel MD - 08/25/2025 3:[address] [facility] pain service Inpatient Progress Note Patient Name: Hattie Santos : 1940 [facility] Pain Service Inpatient Progress Note: Analgesia:Good Pain Score:4/10 LOC: alert and awake Resp Status: room air Cardiac: VS stable Side Effects:None Catheter Site:clean, dry and dressing intact Cath type: peripheral nerve cath(InfuSystem) Infusion rate: Ext/Pop: Basal: 1ml/hr, PIB: 5ml q 2 h, DENTAL PRACTITIONER: 5 ml q 30 min Catheter Plan:Catheter to remain Insitu and Continue catheter infusion rate unchanged * Magali Jeffery PA-C - 08/25/2025 2:38 PM EST Images from the original note were not included. [facility] Medicine Services PROGRESS NOTE Patient Name: Hattie Santos : 1940 Date of Admission: 08/23/2025 Primary Care Physician: Alexis Montanez MD Subjective CC: F/u BKA HPI: Pt is laying in bed. Pt's daughter is in chair at bedside. Pt is oriented to person only. Daughter reports patient has been confused for a couple of years and confusion worsened in February after another one of patient's daughters . Per daughter, patient has been very tired today, wakes occasionally and winces in pain but overall, has seemed more comfortable today. She would like to take patient home with family but understands her mobility may be prohibitive. Objective Vital Signs: Temp: [98.5 ??F (36.9 ??C)-99.7 ??F (37.6 ??C)] 99.7 ??F (37.6 ??C) Heart Rate: [70-83] 75 Resp: [16-18] 16 BP: (94-152)/(51-81) 152/61 Physical Exam: Constitutional: No acute distress, somnolent but interacted with stimulation HENT: NCAT, mucous membranes moist Respiratory: Clear to auscultation bilaterally, normal respiratory effort Cardiovascular: RRR Gastrointestinal: Positive bowel sounds, soft, nontender, nondistended : Pepe catheter in place with clear, yellow urine in bag Musculoskeletal: No RLE edema, L BKA stump covered by immobilizer - I did not remove for exam. Nerve catheter in place Psychiatric: Appropriate affect, cooperative with exam Neurologic: Oriented to self only, speech clear Results Reviewed: LAB RESULTS: Lab 08/25/2552708/24/25 0605 08/22/25 0851 WBC 9.69 11.45* 14.03* HEMOGLOBIN 7.5* 8.1* 10.4* HEMATOCRIT 23.6* 26.0* 34.7 PLATELETS 367 407 506* NEUTROS ABS -- 7.83* -- IMMATURE GRANS (ABS) -- 0.07* -- LYMPHS ABS -- 1.95 -- MONOS ABS -- 1.37* -- EOS ABS -- 0.20 -- MCV 87.4 90.3 89.9 PROTIME -- -- 16.3* Lab 08/25/2552708/24/25 0605 08/22/25 0851 SODIUM 134* 137 140 POTASSIUM 3.7 4.3 4.2 CHLORIDE 100 102 102 CO2 25.7 24.8 25.8 ANION GAP 8.3 10.2 12.2 BUN 10.1 15.8 17.9 CREATININE 0.33* 0.40* 0.55* EGFR 102.4 97.7 90.5 GLUCOSE 107* 81 95 CALCIUM 7.8* 8.1* 9.1 MAGNESIUM 1.5* -- -- Lab 08/22/25 0851 PROTIME 16.3* INR 1.23* Lab 08/25/25 0528 IRON 11* IRON SATURATION (TSAT) 6* TIBC 189* TRANSFERRIN 127* FERRITIN 77.90 Brief Urine Lab Results (Last result in the past 365 days) Color Clarity Blood Leuk Est Nitrite Protein CREAT Urine HCG 07/24/25 2203 Yellow Cloudy Negative Small (1+) Negative Negative Microbiology Results Abnormal None No radiology results from the last 24 hrs Current medications: Scheduled Meds:budesonide-formoterol, 2 puff, Inhalation, BID - RT carvedilol, 6.25 mg, Oral, BID With Meals clopidogrel, 75 mg, Oral, Daily digoxin, 125 mcg, Oral, Daily gabapentin, 600 mg, Oral, Q8H insulin lispro, 2-7 Units, Subcutaneous, 4x Daily AC & at Bedtime magnesium sulfate, 1 g, Intravenous, Q1H pravastatin, 40 mg, Oral, Nightly QUEtiapine, 12.5 mg, Oral, Nightly senna-docusate sodium, 2 tablet, Oral, BID tamsulosin, 0.4 mg, Oral, Daily Continuous Infusions:ropivacaine, PRN Meds:. acetaminophen OR acetaminophen Albuterol Sulfate NEB Orderable senna-docusate sodium AND polyethylene glycol AND bisacodyl AND bisacodyl Calcium Replacement - Follow Nurse / BPA Driven Protocol dextrose dextrose glucagon (human recombinant) HYDROcodone-acetaminophen HYDROmorphone Magnesium Low Dose Replacement - Follow Nurse / BPA Driven Protocol nitroglycerin Phosphorus Replacement - Follow Nurse / BPA Driven Protocol Potassium Replacement - Follow Nurse / BPA Driven Protocol Assessment & Plan Active Hospital Problems Diagnosis POA Critical limb ischemia of left lower extremity [I70.222] Yes Acute urinary retention [R33.8] Yes Type 2 diabetes mellitus with diabetic neuropathy, without long-term current use of insulin [E11.40] Yes Primary hypertension [I10] Yes Resolved Hospital Problems No resolved problems to display. Brief Hospital Course to date: Hattie Sera is a 85yoF w/ PMH of CAD, HTN, HLD, PAD w/ prior femoropopliteal stenting that subsequently occluded on 08/02/25 and mild cognitive impairment. She underwent LT fem-pop bypass, popliteal endarterectomy and 1st toe amputation for critical limb ischemia w/ gangrenous toe. She returned to [facility] 08/23/25 for planned LT 1st TMA, 2nd toe amp, and wound debridement. Upon arrival, the decision was made to proceed w/ BKA. 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 Zhao) - Nerve block in place - Increase Baldwin 10mg to Q4H PRN - Increase Gabapentin 600mg from BID to TID - Post-op care including wound management and clearance to begin PT/OT per surgical service Anemia Post-surgical blood loss - Iron studies consistent with iron-deficiency / AOCD - Start IV iron - can transition to PO once complete or when discharged - Check / B12 / folate Recent urinary retention - Pepe placed 2/2 urinary retention following last surgery; unclear if she had any follow up - Will consider voiding trial prior to DC once more alert - If discharges with pepe, needs OP urology referral for continued management - Continue Flomax PAF HTN HLD CAD - Continue Coreg, Plavix, Digoxin, and Pravastatin - Eliquis on hold until cleared by Vascular Surgery DM2 - A1c 6.03% (07/24/25) - Continue SSI Previous hx of hospital acquired delirium Likely MCI vs dementia - Start on Seroquel 12.5mg HS (discharged on this during recent hospitalization) - Poor PO intake - add Boost supplements - Can refer to neurology at DC for formal cognitive eval if family desires Asthma - Continue Symbicort and prn nebs Expected Discharge Location and Transportation: home with family vs SNF Expected Discharge Expected Discharge Date: 08/28/2025; Expected Discharge Time: VTE Prophylaxis:Mechanical VTE prophylaxis orders are present. AM-PAC 6 Clicks Score (PT): 11 (08/25/25 8712) CODE STATUS: Code Status and Medical Interventions: CPR (Attempt to Resuscitate); Full Support Ordered at: 08/23/25 4841 Code Status (Patient has no pulse and is not breathing): CPR (Attempt to Resuscitate) Medical Interventions (Patient has pulse or is breathing): Full Support Level Of Support Discussed With: Patient Next of Kin (If No Surrogate) Magali Jeffery PA-C 08/25/25 Cosigned by Delbert Quesada DO at 08/25/2025 3:40 PM EST Associated attestation - Delbert Quesada DO - 08/25/2025 3:40 PM EST I have reviewed this documentation and agree. * Junior Zhao MD - 08/25/2025 9:54 AM EST [facility] Vascular Surgery Progress Note Patient Name: Hattie Santos : 1940 Date of admission: 08/23/2025 Surgical Procedures Since Admission: Procedure(s): LEFT BELOW THE KNEE AMPUTATION Surgeon: Junior Zhao MD Status: 2 Days Post-Op Subjective No chief complaint on file. Subjective Subjective: sleeping Comfortably in bed pain well-controlled status post left below the knee amputation Objective Objective Vitals: Temp: [98 ??F (36.7 ??C)-99.7 ??F (37.6 ??C)] 99.7 ??F (37.6 ??C) Heart Rate: [67-83] 83 Resp: [16-18] 18 BP: (94-152)/(43-81) 152/61 Output by Drain (mL) 08/24/25 0701 - 08/24/25 1900 08/24/25 1901 - 08/25/25 0700 08/25/25 0701 - 08/25/25 0954 Range Total Urethral Catheter 150 150 Physical Exam Physical Exam Result Review Result Review: I have personally reviewed the results from the time of this admission to 08/25/2025 09:54 EST and agree with these findings: [] Laboratory [] Microbiology [] Radiology [] EKG/Telemetry [] Cardiology/Vascular [] Pathology [] Old records [] Other: Assessment & Plan Assessment / Plan Brief Patient Summary: Hattie Santos is a 85 y.o. 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 Pain is well-controlled. Dressings are in place and dry. Dressing will bechanged first of the week. Vascular surgery will continue to follow please do not hesitate to call with questions or concerns regarding the care of this patient. Junior Pavel MD * Jesús Diaz Jr., MD - 08/24/2025 1:07 PM EST [facility] Acute pain service Inpatient Progress Note Patient Name: Hattie Santos : 1940 Acute Pain Service Inpatient Progress Note: Analgesia:Fair Pain Score:7/10 LOC: alert and awake Resp Status: room air Cardiac: VS stable Side Effects:None Catheter Site:clean, dry and dressing intact Cath type: peripheral nerve cath(InfuSystem) Infusion rate: Ext/Pop: Basal: 1ml/hr, PIB: 5ml q 2 h, DENTAL PRACTITIONER: 5 ml q 30 min Dosing/Volume: ropivacaine 0.2% Catheter Plan:Catheter to remain Insitu and Continue catheter infusion rate unchanged Comments: Pain is fairly well controlled. Having intermittent 7-8/10 pain. Will continue to follow. * Junior Zaho MD - 08/24/2025 12:17 PM EST [facility] Vascular Surgery Progress Note Patient Name: Hattie Santos : 1940 Date of admission: 08/23/2025 Surgical Procedures Since Admission: Procedure(s): LEFT BELOW THE KNEE AMPUTATION Surgeon: Junior Zhao MD Status: 1 Day Post-Op Subjective No chief complaint on file. Subjective Subjective: resting Comfortably in bed pain well-controlled status post left below the knee amputation Objective Objective Vitals: Temp: [97 ??F (36.1 ??C)-98.3 ??F (36.8 ??C)] 98.3 ??F (36.8 ??C) Heart Rate: [61-73] 67 Resp: [12-21] 16 BP: (101-195)/(48-84) 112/56 Flow (L/min) (Oxygen Therapy): [2] 2 Output by Drain (mL) 08/23/25 0701 - 08/23/25 1900 08/23/25 1901 - 08/24/25 0700 08/24/25 0701 - 08/24/25 1217 Range Total Requested LDAs do not have output data documented. Physical Exam Physical Exam Result Review Result Review: I have personally reviewed the results from the time of this admission to 08/24/2025 12:17 EST and agree with these findings: [x] Laboratory [] Microbiology [] Radiology [] EKG/Telemetry [] Cardiology/Vascular [] Pathology [] Old records [] Other: Assessment & Plan Assessment / Plan Brief Patient Summary: Hattie Santos is a 85 y.o. 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 Pain is well-controlled. Dressings are in place. Dressing will be changedfirst of the week. Vascular surgery will continue to follow please do not hesitate to call with questions or concerns regarding the care of this patient. Junior Pavel MD * Delbert Quesada DO - 08/24/2025 9:18 AM EST Images from the original note were not included. [facility] Medicine Services PROGRESS NOTE Patient Name: Hattie Santos : 1940 Date of Admission: 08/23/2025 Primary Care Physician: Alexis Montanez MD Subjective Subjective CC: F/u BKA HPI: Having burning pain in her LT leg surgical site, fairly intolerable in nature Objective Objective Vital Signs: Temp: [97 ??F (36.1 ??C)-98.1 ??F (36.7 ??C)] 97 ??F (36.1 ??C) Heart Rate: [61-75] 73 Resp: [12-21] 18 BP: (85-195)/(48-84) 140/81 Flow (L/min) (Oxygen Therapy): [2] 2 Physical Exam: Constitutional: Awake, alert, elderly female lying in bed in NAD, does appear moderately uncomfortable Respiratory: Clear to auscultation bilaterally, respiratory effort normal Cardiovascular: RRR Gastrointestinal: Soft, NT, ND, BS present Musculoskeletal: LT LE with brace Psychiatric: Appropriate affect, cooperative Neurologic: Speech clear and fluent Results Reviewed: LAB RESULTS: Lab 08/24/25 0605 08/22/25 0851 WBC 11.45* 14.03* HEMOGLOBIN 8.1* 10.4* HEMATOCRIT 26.0* 34.7 PLATELETS 407 506* NEUTROS ABS 7.83* -- IMMATURE GRANS (ABS) 0.07* -- LYMPHS ABS 1.95 -- MONOS ABS 1.37* -- EOS ABS 0.20 -- MCV 90.3 89.9 PROTIME -- 16.3* Lab 08/24/25 0605 08/22/25 0851 SODIUM 137 140 POTASSIUM 4.3 4.2 CHLORIDE 102 102 CO2 24.8 25.8 ANION GAP 10.2 12.2 BUN 15.8 17.9 CREATININE 0.40* 0.55* EGFR 97.7 90.5 GLUCOSE 81 95 CALCIUM 8.1* 9.1 Lab 08/22/25 0851 PROTIME 16.3* INR 1.23* Brief Urine Lab Results (Last result in the past 365 days) Color Clarity Blood Leuk Est Nitrite Protein CREAT Urine HCG 07/24/25 2203 Yellow Cloudy Negative Small (1+) Negative Negative Microbiology Results Abnormal None Peripheral Block Result Date: 08/23/2025 Roscoe Storm FLIGHT ATTENDANT 08/23/2025 10:50 AM Peripheral Block Patient reassessed immediately prior to procedure Patient location during procedure: pre-op Reason for block: at surgeon's request and post-op pain management Performed by FLIGHT ATTENDANT/CAA: Roscoe Storm, FLIGHT ATTENDANT Assisted by: Desiree Hankins RN Preanesthetic Checklist Completed: patient identified, IV checked, site marked, risks and benefits discussed,surgical consent, monitors and equipment checked, pre-op evaluation and timeout performed Prep: Sterile barriers:cap, gloves, mask and washed/disinfected hands Prep: ChloraPrep Patient monitoring: blood pressure monitoring, continuous pulse oximetry and EKG Procedure Sedation: yes Performed under: local infiltration Guidance:ultrasound guided ULTRASOUND INTERPRETATION. Using ultrasound guidance a20 G gauge needle was placed in close [...] printed/placed on chart Laterality:left Block Type:popliteal Injection Technique:catheter Needle Ty pe:echogenic and Tuohy Needle Gauge:18 G Resistance on Injection: none Catheter Size:20 G Cath Depth at skin: 8 cm Medications Used: bupivacaine PF (MARCAINE) 0.25 % injection - Injection 20 mL - 08/23/2025 10:29:00 AM Medications Comment:0.375% marcaine used Post Assessment Injection Assessment: negative aspiration for heme, no paresthesia on injection and incremental injection Patient Tolerance:comfortable throughout block Complications:no Additional Notes CATHETER A high-frequency linear transducer, with sterile cover, was placed in the popliteal fossa to identify the popliteal artery and vein, Tibial nerve (TN) and Common Peroneal nerve (CP). The transducer was then moved in a cephalad fa shion to observe the TN and CP nerve bifurcation to form the Sciatic Nerve. The insertion site was prepped and draped in sterile fashion. Skin and cutaneous tissue was infiltrated with 2-5 ml of 1% Lidocaine. Using ultrasound-guidance, an 18-gauge Contiplex Ultra 360 Touhy needle was advanced in plane from lateral to medial. Preservative-free normal saline was utilized for hydro-dissection of tissue, advancement of Touhy needle, and to confirm final needle placement posterior to the nerves. Local anesthetic injection spread, in incremental 3-5 ml injections, to surround both nerve structures.Aspiration every 5 ml to prevent intravascular injection. Injection was completed with negative aspi ration of blood and negative intravascular injection. Injection pressures were normal with minimal resistance. A 20-gauge Contiplex Echo catheter was placed through the needle and advance out the tipof the Touhy 1-3 cm. The Touhy needle was then removed, and final catheter position verified (Below/above or Anterior/Posterior) the nerve structures. The catheter was secured in the usual fashion with skin glue, benzoin, steri-strips, CHG tegaderm and Label noting Nerve Block Catheter . Harish tapeapplied at yellow connector and catheter connection. Performed by: Roscoe Storm CRNA Peripheral Block Result Date: 08/23/2025 Roscoe Storm CRNA 08/23/2025 10:51 AM Peripheral Block Patient reassessed immediately prior to procedure Patient location during procedure: pre-op Reason for block: at surgeon's request and post-op pain management Performed by YENIFER/CAA: Roscoe Storm CRNA Assisted by: Desiree Hankins RN Preanesthetic Checklist Completed: patient identified, IV checked, site marked, risks and benefits discussed,surgical consent, monitors and equipment checked, pre-op evaluation and timeout performed Prep: Pt Position: supine Sterile barriers:cap, gloves, mask, sterile barriers and washed/disinfected hands Prep: ChloraPrep Patient monitoring: blood pressure monitoring, continuous pulse oximetry and EKG Procedure Performed under: spinal Guidance:ultrasound guided ULTRASOUND INTERPRETATION. Using ultrasound guidance [...] images obtained, printed/placed on chart Laterality:left Block Type:adductor canal block Injection Techn ique:single-shot Needle Type:Tuohy and echogenic Needle Gauge:18 G Resistance on Injection: none Catheter Size:20 G (20g) Medications Used: bupivacaine PF (MARCAINE) 0.25 % injection - Injection 10 mL - 08/23/2025 10:22:00 AM fentaNYL citrate (PF) (SUBLIMAZE) injection - Intravenous 25 mcg - 08/23/2025 10:22:00 AM dexamethasone sodium phosphate injection - Injection 2 mg - 08/23/2025 10:22:00 AM Medications Comment:0.375% marcaine used Post Assessment Injection Assessment: negative aspiration for heme, incremental injection and no paresthesia on injection Patient Tolerance:comfortable throughoutblock Complications:no Additional Notes SINGLE shot A high-frequency linear transducer, with sterile cover, was placed on the anterior mid-thigh (between the anterior superior iliac spine and patella). The transducer was then moved medially to identify the Sartorius muscle (Freddie), Vastus Medialis muscle (VMM), Superficial Femoral Artery (SFA) and Vein. The transducer was then moved cephalad or caudad to position the SFA in the middle of the Freddie. The insertion site was prepped and draped in sterile fashion. Skin and cutaneous tissue was infiltrated with 2-5 ml of 1% Lidocaine. Using ultrasound-guidance, a 20-gauge B-Reid 4 Ultraplex 360 non-stimulating echogenic needle was advanced in plane from lateral to medial. Preservative-free normal saline was utilized for hydro- dissection of tissue, advancement of needle, and to confirm needle placement below the fascial plane of the Freddie where the Nerve to the VMM is located. Local anesthetic (LA) 5 ml deposited here. The needle continues its path lateral to the SFA at the level of the Saphenous Nerve. The remainder of the LA was deposited atthe 10-11 o'clock position of the SFA. This injection created a space between the Freddie and the SFA. Aspiration every 5 ml to prevent intravascular injection. Injection was completed with negative aspiration of blood and negative intravascular injection. Injection pressures were normal with minimal resistance. Performed by: Roscoe Storm, YENIFER I have personally reviewed the therapy plans: [] PT/OT/ ST Therapy Plans Current medications: Scheduled Meds:budesonide-formoterol, 2 puff, Inhalation, BID - RT carvedilol, 6.25 mg, Oral, BID With Meals clopidogrel, 75 mg, Oral, Daily digoxin, 125 mcg, Oral, Daily gabapentin, 600 mg, Oral, BID With Meals insulin lispro, 2-7 Units, Subcutaneous, 4x Daily AC & at Bedtime pravastatin, 40 mg, Oral, Nightly senna-docusate sodium, 2 tablet, Oral, BID tamsulosin, 0.4 mg, Oral, Daily Continuous Infusions:lactated ringers, 9 mL/hr ropivacaine, PRN Meds:. acetaminophen OR acetaminophen senna-docusate sodium AND polyethylene glycol AND bisacodyl AND bisacodyl Calcium Replacement - Follow Nurse / BPA Driven Protocol dextrose dextrose glucagon (human recombinant) HYDROcodone-acetaminophen HYDROmorphone Magnesium Low Dose Replacement - Follow Nurse / BPA Driven Protocol nitroglycerin Phosphorus Replacement - Follow Nurse / BPA Driven Protocol Potassium Replacement - Follow Nurse / BPA Driven Protocol QUEtiapine Assessment & Plan Assessment & Plan Active Hospital Problems Diagnosis POA Critical limb ischemia of left lower extremity [I70.222] Yes Acute urinary retention [R33.8] Yes Type 2 diabetes mellitus with diabetic neuropathy, without long-term current use of insulin [E11.40] Yes Primary hypertension [I10] Yes Resolved Hospital Problems No resolved problems to display. Brief Hospital Course to date: Hattie Santos is a 85 y.o. female w/ mild cognitive impairment, CAD/HTN/HLD, PAD w/ prior femoropopliteal stenting that subsequently occluded; on 08/02/25 she underwent LT fem-pop bypass, popliteal endarterectomy, and 1st toe amputation for critical limb ischemia w/ gangrenous toe; she was broughtback for planned LT 1st TMA, 2nd toe amp, and wound debridement; on arrival the decision was made to proceed w/ BKA that was perfomred 08/23/25; hospital medicine was asked to admit post-operative The following problems are new to me today Assessment/Plan PAD w/ LT LE critical limb ischemia s/p LT BKA 08/23/25 (Dr. Zhao) -cont prn norco; add prn tylenol and prn diluadid (low dose, for 48 hrs, can adjust as tolerated and needed) - Ropivacaine nerve block in place -post-op care, including wound management and clearance for PT/OT, per surgical service Recent urinary retention -pepe placed 2/2 urinary retention following last surgery; unclear if she had had any follow up -can consider voiding trial prior to DC -cont flomax pAF/HTN/HLD/CAD - on coreg, plavix, digoxin, statin; eliquis on hold until ok per surgery DM2, A1c 6.0, w/o insulin use - SSI Asthma - on Symbicort, add prn nebs MCI?/Mood d/o - has prn seroquel Expected Discharge Location and Transportation: post-op BKA, awaiting post-op wound care and clearance by surgical team; will need PT/OT assessment when ok w/ surgery VTE Prophylaxis: Mechanical VTE prophylaxis orders are present. AM-PAC 6 Clicks Score (PT): 9 (08/23/25 1600) CODE STATUS: Code Status and Medical Interventions: CPR (Attempt to Resuscitate); Full Support Ordered at: 08/23/25 181 Code Status (Patient has no pulse and is not breathing): CPR (Attempt to Resuscitate) Medical Interventions (Patient has pulse or is breathing): Full Support Level Of Support Discussed With: Patient Next of Kin (If No Surrogate) Delbert Quesada DO 08/24/25 documented in this encounter H&P Notes * Ricky Garcia APRN - 08/23/2025 5:56 PM EST Images from the original note were not included. [facility] HISTORY AND PHYSICAL Patient Name: Hattie Santos : 1940 Primary Care Physician: Alexis Montanez MD Date of admission: 08/23/2025 Subjective Subjective Chief Complaint: Chronic LLE wound HPI: Hattie Santos is a 85 y.o. female with past medical history significant for CAD, HTN, HLD, T2DM, urinary retention, asthma, MCI, and PVD s/p fempop bypass and left great toe amputation by Dr. Zhao on 08/02 who initially presented to [facility] for scheduled LLE wound debridement and toe amputation by vascular surgeon Dr. Zhao. Upon evaluation in preop, Dr. Zhao decided to proceed with left BKAdue to left critical limb ischemia. Hospital medicine was asked to admit postoperatively. The patient was seen resting in bed with family at bedside. She is currently pleasantly confused. Pain is currently well-controlled. Family reports history of hospital delirium in the past. She has previously had improvement with Seroquel as needed. Personal History Past Medical History: Diagnosis Date Asthma Coronary artery disease Diabetes mellitus Pepe catheter present in place since 08/07/25. In place due to inability to urinate following surgery. Hyperlipidemia Hypertension Peripheral vascular disease Poor historian Due to memory Past Surgical History: Procedure Laterality Date BELOW KNEE AMPUTATION Left 08/02/2025 Procedure: GREAT TOE AMPUTATION; Surgeon: Junior Zhao MD; Location: [facility] OR; Service:Vascular; Laterality: Left; FEMORAL POPLITEAL BYPASS Left 08/02/2025 Procedure: FEMORAL POPLITEAL BYPASS; Surgeon: Junior Zhao MD; Location: [facility] OR; Service: Vascular; Laterality: Left; PACEMAKER IMPLANTATION PERIPHERAL ARTERIAL STENT GRAFT Family History: family history is not on file. Social History: reports that she has never smoked. She has never used smokeless tobacco. Alcohol use questions deferred to the physician. She reports that she does not use drugs. Social History Social History Narrative Not on file Medications: HYDROcodone-acetaminophen, QUEtiapine, apixaban, budesonide-formoterol, carvedilol, clopidogrel, digoxin, gabapentin, pravastatin, and tamsulosin Allergies Allergen Reactions Codeine Mental Status Change Morphine Mental Status Change Xanax [Alprazolam] Mental Status Change Doxycycline Other (See Comments) Unknown reaction Penicillins Unknown - High Severity Sulfur Unknown - High Severity Objective Objective Vital Signs: Temp: [97 ??F (36.1 ??C)-98 ??F (36.7 ??C)] 98 ??F (36.7 ??C) Heart Rate: [64-75] 72 Resp: [12-21] 19 BP: (85-195)/(48-84) 117/57 Flow (L/min) (Oxygen Therapy): [2] 2 Physical Exam Constitutional: Awake, alert, frail, chronically ill appearing Eyes: PERRLA, sclerae anicteric, no conjunctival injection HENT: NCAT, mucous membranes moist Neck: Supple, no thyromegaly, no lymphadenopathy, trachea midline Respiratory: Clear to auscultation bilaterally, nonlabored respirations on 2L NC Cardiovascular: RRR, no murmurs Gastrointestinal: Positive bowel sounds, soft, nontender, nondistended Musculoskeletal: Left BKA with stump dressing in place Psychiatric: flat affect, cooperative Neurologic: Oriented x 2, moves all extremities, speech clear Skin:warm, dry, no visible rash Result Review: I have personally reviewed the results from the time of this admission to 08/23/2025 18:21 EST and agree with these findings: [x] Laboratory list / accordion [x] Microbiology [x] Radiology [x] EKG/Telemetry [] Cardiology/Vascular [] Pathology [x] Old records [] Other: Most notable findings include: LAB RESULTS: Lab 08/22/25 0851 WBC 14.03* HEMOGLOBIN 10.4* HEMATOCRIT 34.7 PLATELETS 506* MCV 89.9 PROTIME 16.3* Lab 08/22/25 0851 SODIUM 140 POTASSIUM 4.2 CHLORIDE 102 CO2 25.8 ANION GAP 12.2 BUN 17.9 CREATININE 0.55* EGFR 90.5 GLUCOSE 95 CALCIUM 9.1 Lab 08/22/25 0851 PROTIME 16.3* INR 1.23* Brief Urine Lab Results (Last result in the past 365 days) Color Clarity Blood Leuk Est Nitrite Protein CREAT Urine HCG 07/24/25 220 Yellow Cloudy Negative Small (1+) Negative Negative Microbiology Results (last 10 days) No results found for the last 240 hours. Peripheral Block Result Date: 08/23/2025 Roscoe Storm CRNA 08/23/2025 10:50 AM Peripheral Block Patient reassessed immediately prior to procedure Patient location during procedure: pre-op Reason for block: at surgeon's request and post-op pain management Performed by FLIGHT ATTENDANT/CAA: Roscoe Storm, YENIFER Assisted by: Desiree Hankins RN Preanesthetic Checklist Completed: patient identified, IV checked, site marked, risks and benefits discussed,surgical consent, monitors and equipment checked, pre-op evaluation and timeout performed Prep: Sterile barriers:cap, gloves, mask and washed/disinfected hands Prep: ChloraPrep Patient monitoring: blood pressure monitoring, continuous pulse oximetry and EKG Procedure Sedation: yes Performed under: local infiltration Guidance:ultrasound guided ULTRASOUND INTERPRETATION. Using ultrasound guidance a20 G gauge needle was placed in close [...] printed/placed on chart Laterality:left Block Type:popliteal Injection Technique:catheter Needle Ty pe:echogenic and Tuohy Needle Gauge:18 G Resistance on Injection: none Catheter Size:20 G Cath Depth at skin: 8 cm Medications Used: bupivacaine PF (MARCAINE) 0.25 % injection - Injection 20 mL - 08/23/2025 10:29:00 AM Medications Comment:0.375% marcaine used Post Assessment Injection Assessment: negative aspiration for heme, no paresthesia on injection and incremental injection Patient Tolerance:comfortable throughout block Complications:no Additional Notes CATHETER A high-frequency linear transducer, with sterile cover, was placed in the popliteal fossa to identify the popliteal artery and vein, Tibial nerve (TN) and Common Peroneal nerve (CP). The transducer was then moved in a cephalad fa shion to observe the TN and CP nerve bifurcation to form the Sciatic Nerve. The insertion site was prepped and draped in sterile fashion. Skin and cutaneous tissue was infiltrated with 2-5 ml of 1% Lidocaine. Using ultrasound-guidance, an 18-gauge Contiplex Ultra 360 Touhy needle was advanced in plane from lateral to medial. Preservative-free normal saline was utilized for hydro-dissection of tissue, advancement of Touhy needle, and to confirm final needle placement posterior to the nerves. Local anesthetic injection spread, in incremental 3-5 ml injections, to surround both nerve structures.Aspiration every 5 ml to prevent intravascular injection. Injection was completed with negative aspi ration of blood and negative intravascular injection. Injection pressures were normal with minimal resistance. A 20-gauge Contiplex Echo catheter was placed through the needle and advance out the tipof the Touhy 1-3 cm. The Touhy needle was then removed, and final catheter position verified (Below/above or Anterior/Posterior) the nerve structures. The catheter was secured in the usual fashion with skin glue, benzoin, steri-strips, CHG tegaderm and Label noting Nerve Block Catheter . Harish tapeapplied at yellow connector and catheter connection. Performed by: Roscoe Storm CRNA Peripheral Block Result Date: 08/23/2025 Roscoe Storm CRNA 08/23/2025 10:51 AM Peripheral Block Patient reassessed immediately prior to procedure Patient location during procedure: pre-op Reason for block: at surgeon's request and post-op pain management Performed by YENIFER/CAA: Roscoe Storm CRNA Assisted by: Desiree Hankins RN Preanesthetic Checklist Completed: patient identified, IV checked, site marked, risks and benefits discussed,surgical consent, monitors and equipment checked, pre-op evaluation and timeout performed Prep: Pt Position: supine Sterile barriers:cap, gloves, mask, sterile barriers and washed/disinfected hands Prep: ChloraPrep Patient monitoring: blood pressure monitoring, continuous pulse oximetry and EKG Procedure Performed under: spinal Guidance:ultrasound guided ULTRASOUND INTERPRETATION. Using ultrasound guidance [...] images obtained, printed/placed on chart Laterality:left Block Type:adductor canal block Injection Techn ique:single-shot Needle Type:Tuohy and echogenic Needle Gauge:18 G Resistance on Injection: none Catheter Size:20 G (20g) Medications Used: bupivacaine PF (MARCAINE) 0.25 % injection - Injection 10 mL - 08/23/2025 10:22:00 AM fentaNYL citrate (PF) (SUBLIMAZE) injection - Intravenous 25 mcg - 08/23/2025 10:22:00 AM dexamethasone sodium phosphate injection - Injection 2 mg - 08/23/2025 10:22:00 AM Medications Comment:0.375% marcaine used Post Assessment Injection Assessment: negative aspiration for heme, incremental injection and no paresthesia on injection Patient Tolerance:comfortable throughoutblock Complications:no Additional Notes SINGLE shot A high-frequency linear transducer, with sterile cover, was placed on the anterior mid-thigh (between the anterior superior iliac spine and patella). The transducer was then moved medially to identify the Sartorius muscle (Freddie), Vastus Medialis muscle (VMM), Superficial Femoral Artery (SFA) and Vein. The transducer was then moved cephalad or caudad to position the SFA in the middle of the Freddie. The insertion site was prepped and draped in sterile fashion. Skin and cutaneous tissue was infiltrated with 2-5 ml of 1% Lidocaine. Using ultrasound-guidance, a 20-gauge B-Reid 4 Ultraplex 360 non-stimulating echogenic needle was advanced in plane from lateral to medial. Preservative-free normal saline was utilized for hydro- dissection of tissue, advancement of needle, and to confirm needle placement below the fascial plane of the Freddie where the Nerve to the VMM is located. Local anesthetic (LA) 5 ml deposited here. The needle continues its path lateral to the SFA at the level of the Saphenous Nerve. The remainder of the LA was deposited atthe 10-11 o'clock position of the SFA. This injection created a space between the Freddie and the SFA. Aspiration every 5 ml to prevent intravascular injection. Injection was completed with negative aspiration of blood and negative intravascular injection. Injection pressures were normal with minimal resistance. Performed by: Roscoe Storm, FLIGHT ATTENDANT Assessment & Plan Assessment & Plan Critical limb ischemia of left lower extremity Type 2 diabetes mellitus with diabetic neuropathy, without long-term current use of insulin Primary hypertension Acute urinary retention Hattie Santos is a 85 y.o. female with past medical history significant for CAD, HTN, HLD, T2DM, urinary retention, asthma, MCI, and PVD s/p fempop bypass and left great toe amputation by Dr. Zhao on 08/02 who initially presented to [facility] for scheduled LLE wound debridement and toe amputation by vascular surgeon Dr. Zhao. Upon evaluation in preop, Dr. Zhao decided to proceed with left BKAdue to left critical limb ischemia. Hospital medicine was asked to admit postoperatively. Left critical limb ischemia -s/p left BKA by Dr. Zhao on 08/23 -Eliquis on hold, resume when ok w/ vascular sx -Nerve catheter in place -continue Gabapentin -Baldwin PRN for pain -Management per vascular surgery -AM labs Urinary retention -unable to void following surgery during previous admission, pepe initially placed on 08/02 with plan for outpatient urology follow up -Replace pepe catheter -continue Flomax PAF -continue digoxin -Eliquis on hold as above Asthma -not in exacerbation -continue Symbicort HTN HLD Hx CAD -continue Coreg, Pravachol, Plavix T2DM -Hgb A1C 6.03 on 07/24/2025 -Low dose SSI for now Mood disorder -continue Seroquel 12.5 mg BID PRN [facility] CODE STATUS: Code Status (Patient has no pulse and is not breathing): CPR (Attempt to Resuscitate) Medical Interventions (Patient has pulse or is breathing): Full Support Level Of Support Discussed With: Patient Next of Kin (If No Surrogate) Expected Discharge TBD. Expected discharge date/ time has not been documented. Signature: Electronically signed by Ricky Garcia APRN, 08/23/25, 6:19 PM EST Cosigned by Neda Ocampo DO at 08/23/2025 8:04 PM EST Associated attestation - Neda Ocampo DO - 08/23/2025 8:04 PM EST I have reviewed this documentation and agree. Patient evaluated independently by APC, I was available for questions. * Griselda Ocampo APRN - 08/23/2025 10:11 AM EST [facility] Pre-op Full history and physical note from office is attached. BP (!) 187/82 (BP Location: Right arm, Patient Position: Lying) Pulse 75 Temp 97 ??F (36.1 ??C)(Temporal) Resp 18 Ht 149.9 cm (59.02 ) Wt 45 kg (99 lb 3.3 oz) SpO2 94% BMI 20.03 kg/m?? Review of Systems: Constitutional-- No fever, chills or sweats. + fatigue. CV-- No chest pain, palpitation or syncope Resp-- No cough, hemoptysis. +SOB Skin--No rashes or lesions Physical Exam: Heart: Regular rate and rhythm, S1 and S2 normal Lungs: Clear to auscultation bilaterally, respirations unlabored LAB Results: Lab Results Component Value Date WBC 14.03 (H) 08/22/2025 HGB 10.4 (L) 08/22/2025 HCT 34.7 08/22/2025 MCV 89.9 08/22/2025 PLT 506 (H) 08/22/2025 NEUTROABS 8.41 (H) 08/07/2025 GLUCOSE 95 08/22/2025 BUN 17.9 08/22/2025 CREATININE 0.55 (L) 08/22/2025 NA 140 08/22/2025 K 4.2 08/22/2025 CL 102 08/22/2025 CO2 25.8 08/22/2025 MG 1.9 08/04/2025 PHOS 2.7 08/04/2025 CALCIUM 9.1 08/22/2025 ALBUMIN 2.8 (L) 08/04/2025 AST 27 08/04/2025 ALT 15 08/04/2025 BILITOT 0.2 08/04/2025 PTT 57.1 (L) 08/02/2025 INR 1.23 (H) 08/22/2025 Cancer Staging (if applicable) Cancer Patient: __ yes __no __unknown__N/A; If yes, clinical stage T:__ N:__M:__, stage group or __N/A Impression: Chronic peripheral vascular disease with critical limb ischemia Plan: FIRST METATARSAL AND SECOND TOE AMPUTATION WITH FOOT DEBRIDEMENT Griselda Ocampo APRN 08/23/2025 10:11 EST Cosigned by Junior Zhao MD at 08/25/2025 7:10 AM EST Associated attestation - Junior Zhao MD - 08/25/2025 7:10 AM EST I have seen and examined and agree with assessement Source Note - Virgie Rodriguez APRN - 07/24/2025 1:36 PM EDT Images from the original note [...] better. Daughter reports that cardiac interventionalist in [place] has been following her, and that she has had multiple revascularizations and stent placements. Daughter perry sheetss that her provider told her that she was running out of options, but that she most likely would not be a candidate for amputation due to her cardiac history. Family reports that she has been following with a creative services specialist and dice manager outpatient who remove the top layer of [...] resting in bed; family at bedside HEENT: [place] conjunctivae, MMM Lungs: Normal respiratory effort Ext: motor intact; left great toe ulcer with discoloration/eschar/surrounding erythema; +left femoral pulse; no palpable left pedals Skin: Exposed skin warm Neuro: Follows simple commands Psych: Apropriate mood ?baseline memory loss? Relevant Results: Imaging Results (Last 48 Hours) Procedure Component Value Units Date/Time CT Angiogram Lower Extremity Bilateral [[id number]] Collected: 07/23/25 2345 Updated: 07/24/25 0001 Narrative: CT ANGIOGRAM LOWER [...] MD 07/23/2025 11:58 PM EDT Workstation ID: [id number] CT Lower Extremity Left Without Contrast [[id number]] Collected: 07/23/252000 Updated: 07/23/252009 Narrative: CT LOWER [...] DO 07/23/2025 8:07 PM EDT Workstation ID: [id number] XR Chest 1 View [[id number]] Collected: 07/23/251811 Updated: 07/23/251815 Narrative: XR CHEST [...] MD 07/23/2025 6:13 PM EDT Workstation ID: [id number] XR Foot 3+ View Left [[id number]] Collected: 07/23/251749 Updated: 07/23/251754 Narrative: XR FOOT [...] MD 07/23/2025 5:52 PM EDT Workstation ID: [id number] Lab Results (last 48 hours) Procedure Component Value Units Date/Time POC Glucose Once [[id number]] (Normal) Collected: 07/24/25 1130 Specimen: Blood Updated: 07/24/25 1133 Glucose 93 mg/dL Comment: Serial Number: [id number]: [id number] POC Glucose Q6H [[id number]] (Normal) Collected: 07/24/25752 Specimen: Blood Updated: 07/24/25754 Glucose 106 mg/dL Comment: Serial Number: [id number]: [id number] aPTT [[id number]] (Abnormal) Collected: 07/24/25444 Specimen: Blood Updated: 07/24/25616 PTT 59.2 seconds Narrative: PTT = The equivalent PTT values for the therapeutic range of heparin levels at 0.3 to 0.5 U/ml are 60 to 70 seconds. Hemoglobin A1c [[id number]] (Abnormal) Collected: 07/24/25444 Specimen: Blood Updated: 07/24/25544 Hemoglobin A1C 6.03 % Narrative: Hemoglobin A1C Ranges: Increased Risk for Diabetes 5.7% to 6.4% Diabetes >= 6.5% Diabetic Goal < 7.0% Comprehensive Metabolic Panel [[id number]] (Abnormal) Collected: 07/24/25444 Specimen: Blood Updated: 07/24/25524 [...] include race as a factor Digoxin Level [[id number]] (Normal) Collected: 07/24/25444 Specimen: Blood Updated: 07/24/25524 Digoxin 0.62 ng/mL Narrative: Results may be falsely increased if patient taking Biotin. Magnesium [[id number]] (Normal) Collected: 07/24/25444 Specimen: Blood Updated: 07/24/25524 Magnesium 1.7 mg/dL Phosphorus [[id number]] (Normal) Collected: 07/24/25444 Specimen: Blood Updated: 07/24/25524 Phosphorus 3.6 mg/dL Lipid Panel [[id number]] Collected: 07/24/25444 Specimen: Blood Updated: 07/24/25524 Total [...] NIH LDL-C calculation. High Sensitivity Troponin T [[id number]] (Abnormal) Collected: 07/24/25444 Specimen: Blood Updated: 07/24/25524 [...] due to an underlying chronic condition. CK [[id number]] (Normal) Collected: 07/24/25444 Specimen: Blood Updated: 07/24/25524 Creatine Kinase 61 U/L Lactic Acid, Plasma [[id number]] (Normal) Collected: 07/24/25444 Specimen: Blood Updated: 07/24/25516 Lactate 0.6 mmol/L Comment: Falsely depressed results may occur on samples drawn from patients receiving N-Acetylcysteine (NAC) or Metamizole. CBC Auto Differential [[id number]] (Abnormal) Collected: 07/24/25444 Specimen: Blood Updated: 07/24/25453 [...] 10*3/mm3 nRBC 0.0 /100 WBC Heparin Anti-Xa [[id number]] (Abnormal) Collected: 07/23/252199 Specimen: Blood from Arm, Left Updated: 07/23/252303 Heparin Anti-Xa (UFH) >1.10 IU/ml Protime-INR [[id number]] (Abnormal) Collected: 07/23/252199 Specimen: Blood from Arm, Left Updated: 07/23/252231 Protime 17.0 Seconds INR 1.30 aPTT [[id number]] (Abnormal) Collected: 07/23/252199 Specimen: Blood from Arm, Left Updated: 07/23/252231 PTT 38.1 seconds Narrative: PTT = The equivalent PTT values for the therapeutic range of heparin levels at 0.3 to 0.5 U/ml are 60 to 70 seconds. High Sensitivity Troponin T 1Hr [[id number]] (Abnormal) Collected: 07/23/251953 Specimen: Blood Updated: 07/23/252018 [...] condition. Blood Culture - Blood, Arm, Right [[id number]] Collected: 07/23/251734 Specimen: Blood from Arm, Right Updated: 07/23/251943 Blood Culture - Blood, Arm, Left [[id number]] Collected: 07/23/251744 Specimen: Blood from Arm, Left Updated: 07/23/251943 Comprehensive Metabolic Panel [[id number]] (Abnormal) Collected: 07/23/251731 Specimen: Blood Updated: 07/23/251801 [...] as a factor High Sensitivity Troponin T [[id number]] (Abnormal) Collected: 07/23/251731 Specimen: Blood Updated: 07/23/251801 [...] an underlying chronic condition. Lactic Acid, Plasma [[id number]] (Normal) Collected: 07/23/251731 Specimen: Blood Updated: 07/23/25 1800 Lactate 1.2 mmol/L Comment: Falsely depressed results may occur on samples drawn from patients receiving N-Acetylcysteine (NAC) or Metamizole. CBC & Differential [[id number]] (Abnormal) Collected: 07/23/251731 Specimen: Blood Updated: 07/23/251743 Narrative: The following orders were created for panel order CBC & Differential. Procedure Abnormality Status --------- ------ CBC Auto Differential[[id number]] Abnormal Final result Please view results for these tests on the individual orders. CBC Auto Differential [[id number]] (Abnormal) Collected: 07/23/251731 Specimen: Blood Updated: 07/23/251743 [...] from iliac down to popliteal and including RECREATION TECHNICIAN - Diabetes mellitus type 2 with neuropathy [...] with - will make her NPO after MN tonight 07/25/25 just in case they elect for procedure - please call with any further vascular concerns Signed: documented in this encounter Consult Notes * Su Reece, MS,RD,LD - 08/26/2025 10:11 AM ESTAssociated Order(s): IP CONSULT TO NUTRITION SERVICES Patient Name: Hattie Santos Date of : 1940 Admission date: 08/23/2025 Reason for Encounter: MD Consult , MST 2-3 or Nursing Admission Screen, and Pressure Injury Stg 2+ [facility] Clinical Nutrition Assessment Subjective Subjective Information 08/26 Pt resting in bed at time of visit. Spoke with pt and family at bedside. Both reported minimal PO intake at baseline (1 small meal per day + snacks). No change in intake from baseline reported. Endorsed meal orders are being taken. Patient drinking vy boost glucose TID. Ordering surekha BID to support wound healing. Denied any weight changes, reported stability. Noted none significant weight lossper EMR. Denied any difficulties chewing or swallowing. NKFA. Objective H&P and Current Problems H&P Past Medical History: Diagnosis Date Asthma Coronary artery disease Diabetes mellitus Pepe catheter present in place since 08/07/25. In place due to inability to urinate following surgery. Hyperlipidemia Hypertension Peripheral vascular disease Poor historian Due to memory Past Surgical History: Procedure Laterality Date BELOW KNEE AMPUTATION Left 08/02/2025 Procedure: GREAT TOE AMPUTATION; Surgeon: Junior Zhao MD; Location: [facility]; Service:Vascular; Laterality: Left; FEMORAL POPLITEAL BYPASS Left 08/02/2025 Procedure: FEMORAL POPLITEAL BYPASS; Surgeon: Junior Zhao MD; Location: [facility]; Service: Vascular; Laterality: Left; PACEMAKER IMPLANTATION PERIPHERAL ARTERIAL STENT GRAFT Current Problems Admission Diagnosis: Critical limb ischemia of left lower extremity [I70.222] Toe necrosis [I96] Problem List: Critical limb ischemia of left lower extremity Type 2 diabetes mellitus with diabetic neuropathy, without long-term current use of insulin Primary hypertension Acute urinary retention Applicable Nutrition Hx 08/26 WOC: PI Stg 3 on coccyx Anthropometrics Height: 149.9 cm (59.02 ) Weight: 45 kg (99 lb 3.3 oz) (08/23/25 1008) BMI (Calculated): 20 Trending Weight Changes 08/26/25: No significant changes Weight History Wt Readings from Last 15 Encounters: 08/23/25 1008 45 kg (99 lb 3.3 oz) 08/22/25 0916 45.4 kg (100 lb) 08/04/25 1700 62.2 kg (137 lb 2 oz) 07/31/25 1256 53.3 kg (117 lb 8.1 oz) 07/24/25 0251 53.3 kg (117 lb 8 oz) 07/23/25 1634 47.2 kg (104 lb) Labs Results from last 7 days Lab Units 08/26/25 0803 11/0952708/24/25 06 SODIUM mmol/L 138 134* 137 POTASSIUM mmol/L 3.3* 3.7 4.3 GLUCOSE mg/dL 112* 107* 81 BUN mg/dL 6.6* 10.1 15.8 CREATININE mg/dL 0.34* 0.33* 0.40* CALCIUM mg/dL 7.8* 7.8* 8.1* PHOSPHORUS mg/dL 2.6 -- -- MAGNESIUM mg/dL 2.0 1.5* -- Results from last 7 days Lab Units 08/26/25 0808/25/2552708/24/25 06 PLATELETS 10*3/mm3 376 367 407 HEMOGLOBIN g/dL 7.7* 7.5* 8.1* HEMATOCRIT % 24.5* 23.6* 26.0* IRON mcg/dL -- 11* -- Lab Results Component Value Date HGBA1C 6.03 (H) 07/24/2025 Medications Scheduled Medications budesonide-formoterol, 2 puff, Inhalation, BID - RT carvedilol, 6.25 mg, Oral, BID With Meals clopidogrel, 75 mg, Oral, Daily digoxin, 125 mcg, Oral, Daily ferric gluconate, 125 mg, Intravenous, Daily gabapentin, 300 mg, Oral, Q12H insulin lispro, 2-7 Units, Subcutaneous, 4x Daily AC & at Bedtime potassium chloride ER, 40 mEq, Oral, Q4H pravastatin, 40 mg, Oral, Nightly QUEtiapine, 12.5 mg, Oral, Nightly senna-docusate sodium, 2 tablet, Oral, BID tamsulosin, 0.4 mg, Oral, Daily Infusions ropivacaine, sodium chloride, 125 mL/hr PRN Medications acetaminophen OR acetaminophen Albuterol Sulfate NEB Orderable senna-docusate sodium AND polyethylene glycol AND bisacodyl AND bisacodyl Calcium Replacement - Follow Nurse / BPA Driven Protocol dextrose dextrose glucagon (human recombinant) HYDROcodone-acetaminophen Magnesium Low Dose Replacement - Follow Nurse / BPA Driven Protocol nitroglycerin Phosphorus Replacement - Follow Nurse / BPA Driven Protocol Potassium Replacement - Follow Nurse / BPA Driven Protocol Physical Findings Chewing/Swallowing No issues identified at this time Dentition Mouth/Teeth WDL: .WDL except, teeth Teeth Symptoms: tooth/teeth missing Skin Wound 08/02/25 1831 medial coccyx Pressure Injury-Pressure Injury Stage: Stage 2 (08/23/25 1600) Bowel function Stool Consistency: loose, liquid (08/26/25 0612) Edema Edema: leg, right (08/25/251999) Leg, Left Edema: other (see comments) ([place]) (08/25/25 0839) Leg, Right Edema: 1+ (Trace) (08/25/251999) Intake & Output (last 3 days) 08/23 P.O. 240 120 180 0 IV Piggyback 100 Total Intake(mL/kg) 340 (7.6) 120 (2.7) 180 (4) 0 (0) Urine (mL/kg/hr) 550 (0.5) 1250 (1.2) Stool 0 Total Output 550 1250 Net +340 -430 -1070 0 Stool Unmeasured Occurrence 5 x Nutrition Focused Physical Exam 08/26/25: MSA completed, met criteria Malnutrition Severity Assessment Patient meets criteria for : Severe Malnutrition Malnutrition Type (Last 8 Hours) Malnutrition Severity Assessment Row Name 08/26/25 1151 Malnutrition Severity Assessment Malnutrition Type Chronic Disease - Related Malnutrition Row Name 08/26/25 1151 Insufficient Energy Intake Insufficient Energy Intake Findings Moderate Insufficient Energy Intake <75% of est. energy requirement for > or equal to 1 month Row Name 08/26/25 1151 Muscle Loss Loss of Muscle Mass Findings Severe [place] Region Severe - deep hollowing/scooping, lack of muscle to touch, facial bones well defined Clavicle Bone Region Severe - protruding prominent bone Acromion Bone Region Severe - squared shoulders, bones, and acromion process protrusion prominent Dorsal Hand Region Severe - prominent depression Patellar Region Severe - prominent bone, square looking, very little muscle definition Anterior Thigh Region Severe - line/depression along thigh, obviously thin Posterior Calf Region Severe - thin with very little definition/firmness Row Name 08/26/25 1151 Fat Loss Subcutaneous Fat Loss Findings Severe Orbital Region Severe - pronounced hollowness/depression, dark circles, loose saggy skin Upper Arm Region Severe - mostly skin, very little space between folds, fingers touch Row Name 08/26/25 1151 Fluid Accumulation (Edema) Fluid Acumulation Findings Mild Fluid Accumulation Mild equals 1+ pitting edema Row Name 08/26/25 1151 Declining Functional Status Declining Functional Status Findings N/A Row Name 08/26/25 1151 Criteria Met (Must meet criteria for severity in at least 2 of these categories: M Wasting, Fat Loss, Fluid, Secondary Signs, Wt. 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 energy requirement for > or equal to 1 month, severe muscle/fat wasting, and mild edema. Nutrition Diagnosis 2 Increased Nutrient Needs (protein) r/t increased need for wound healing as evidenced by stage 3 PI Goal(s) Increase PO Intake , Accepts Oral Nutrition Supplement, and Skin Integrity to Improve Nutrition Intervention and Prescription Intervention Adjust oral nutrition supplement, Obtain food preferences, and Completed NFPE Diet Prescription Continue current diet as ordered Supplement Prescription Continue vy boost glucose TID Add Surekha BID Education Provided N/A 3 Monitoring/Evaluation Monitor/Evaluation Per Protocol, PO Intake, Oral Nutrition Supplement Intake, Weight, Skin Status, Symptoms, and POC/GOC RD Follow-Up Encounter 3-5 days and prn Electronically signed by: Su Reece MS,RD,LD 08/26/25 10:11 EST documented in this encounter Nursing Notes * Marya Bailey, OT - 08/26/2025 2:57 PM EST Goal Outcome Evaluation: Plan of Care Reviewed With: patient, family Progress: no change Outcome Evaluation: Pt. presents below baseline with ADLs and functional mobility. Limited by decraesed activity tolerance, balance, generalized weakness, and motor planning. Skilled OT services warranted to promote return to PLOF. Recommend SNF at discharge. Anticipated Discharge Disposition (OT): care home facility * Marya Garsia, PT - 08/26/2025 2:51 PM EST Goal Outcome Evaluation: Plan of Care Reviewed With: patient, child Progress: no change Outcome Evaluation: Patient had difficulty maintaining R foot on floor during t/f to weight bear and assist with t/f today, resulting in patient requiring dependent assist x2 for all OOB mobility. Patient currently below functional baseline, demonstrating decreased functional mobility status, impaired balance, decreased endurance, and decreased strength. Will address these deficits to promote return to PLOF. Recommend SNF at d/c. Anticipated Discharge Disposition (PT): care home facility * David Dalton RN - 08/26/2025 11:15 AM EST Images from the original note were not included. Wound, Ostomy and Continence (WOC) Note Reason for WOC Consultation: Pressure injury coccyx, POA Patient awake. Family/support person at bedside. Subjective: Patient daughter states, she was not really moving a lot at home and she was not eating much. Skin/Wound Assessment: Wound Type: Pressure Injury Stage 3 Location: Coccyx Measurements: 1 x 1 x 0.3 cm Wound Bed: moist, subcutaneous, and yellow Wound Edges: Open Periwound Skin: intact Drainage Characteristics/Odor: none Drainage Amount: none Pain: Yes Care provided: The wound was cleansed with pH balance wipes. Mepilex Ag applied to the wound and covered with an Allevyn dressing. Image: Additional findings: Right heel suspected old pressure injury. Skin is intact but feels as if there was an old blister there before. Allevyn dressing reapplied and heel elevated off bed. Summary and Recommendation(s): For stage III pressure injury to coccyx-apply Mepilex Ag and cover with Allevyn dressing. Change every 3 days. See wound care orders. Wound may worsen despite all interventions. Patient encouraged toincrease protein intake. Will reach out to biological science technician fish to include Surekha. 2. For right heel resolving stage II pressure injury-keep covered with an Allevyn dressing and elevate heel off bed with spry positioning pillow. 3. Patient is at very high risk for worsening of her current injuries and development of new pressure injuries. Please turn patient using spry positioning pillow. Keep heel elevated off bed. 4. Refer to wound care instructions in the Orders tab 5. Specialty support surface in place: Foam Mattress a. Will order alternating pressure [id number] specialty bed from [facility] Pressure Injury Prevention Protocol (initiate for a Taz Scale Score of <18): Most recent Taz Scale score: Sensory Perception: 3-->slightly limited Moisture: 4-->rarely moist Activity: 2-->chairfast Mobility: 3-->slightly limited Nutrition: 2-->probably inadequate Friction and Shear: 2-->potential problem Taz Score: 16 (08/25/25 1600) -Apply Allevyn foam dressing to sacrum/coccyx and heels. -Turn q 2 hr. using [place] Flowlock Posiitoner pillow (short dark blue). Elevate heels off bed with [place] Flowlock Positioner pillow (long dark blue) -Apply moisture barrier cream to bottom BID & PRN, if incontinent. Thank you for consulting the WOC Nurse. WOC Team will continue to follow. Please re consult if the wound(s) worsens or new issues arise. David Dalton RN, BSN, CCRN, CWOCN Wound, Ostomy and Continence (WOC) Department [facility] documented in this encounter OR Notes * Op Note - Junior Zhao MD - 08/23/2025 11:11 AM EST PROCEDURE DATE: 08/22/2025 PRE OP DIAGNOSIS: Pre-Op Diagnosis Codes: Left critical limb ischemia POST OP DIAGNOSIS: Post-op Diagnosis Same SURGEON(S) / SIGN LANGUAGE TEACHER SURGEON: Junior Pavel MD PROCEDURES WITH LATERALITY: Left below-knee amputation Left tibial nerve free pedicle transfer Myodesis 32050 ANESTHESIA: General Blood loss: Minimal Specimen: Left leg INDICATIONS: 85y.o. female with left critical limb ischemia and gangrene here today for below the knee amputation PROCEDURE IN DETAIL: After informed consent was obtained risk and benefits discussed with the patient patient was brought back to the operating table laid in supine position and general anesthesia induced. The patient was prepped and draped in usual sterile fashion, preoperative antibiotics were given and a timeout wasperformed. Incision was made 5 finger breadths below the tibial tuberosity and posterior flap fashion. Electrocautery was used to dissect through the musculature, both the tibia and fibula were isolated and dissected with the saw make sure that the fibula was a few centimeters sure. Amputation knife was then used to remove the remaining musculature and save the posterior flap. Hemostasis was achieved with a combination of suture ligation and electrocautery. Tibial nerve was identified and aspect was transected sharply to freshen up the edges in preparation for free muscle nerve pedicle transfer. Free muscle flap was harvested from the now amputated lower leg this muscle was anchored to the t ibial nerve with a 6-0 Prolene to the perineurium. Once the muscle was anchored to the nerve I completely enveloped the nerve with this free muscle pedicle with a 6-0 Prolene. This was done in order to decrease phantom pain and neuroma formation and this completed the free muscle nerve pedicle transfer portion. Below-knee amputation was closed in the standard fashion, in preparation for myodesis,Erwin anemias and soleus muscle was identified and appropriate flaps were created for closure over the tibia. Then using suture the gastrocnemius and the soleus muscles were secured to the periosteum of the anterior aspect of the tibia with Vicryl suture. Thereby completing the myodesis. And was dressed in the standard fashion. Patient tolerated the procedure well and was sent to recovery. Junior Pavel MD 08/23/2025 12:01 PM documented in this encounter Miscellaneous Notes * Case Management/Social Work - Rani Pereira RN - 08/28/2025 11:36 AM EST Case Management Discharge Note Final Note: Per MDR, patient to discharge today and have requested a Hospital Bed, patient has discharge orders placed. Spoke with patient and daughter at bedside regarding discharge plan to discuss DME providers who advise sthey have decided to go home today. CM advised will not likely be able to have a Hospital Bed delivered today, family verbalizes understanding and are fine with this, they would like to use [facility] in [place] for DME. No other needs verbalized. Called [facility] [phone] who request supporting clinical documentation and order be faxed to them at [phone]. [facility] and [facility]OL[facility]. Patient plan is to discharge home and resume [facility] today via car with family to transport. Selected Continued Care - Admitted Since 08/23/2025 Destination No services have been selected for the patient. Durable Medical Equipment Coordination complete. Service Provider Services Address Phone Fax Patient Preferred [facility] Durable Medical Equipment [address] [address] [phone] -- Dialysis/Infusion No services have been selected for the patient. Home Medical Care Coordination complete. Service Provider Services Address Phone Fax Patient Preferred [facility] [address] [address] [phone] -- Therapy No services have been selected for the patient. Community & DME No services have been selected for the patient. Selected Continued Care - Prior Encounters Includes continued care and service providers with selected services from prior encounters from 05/25/2025 to 08/28/2025 Discharged on 08/07/2025 Admission date: 07/31/2025 - Discharge disposition: Home-Health Care [facility] Service Provider Services Address Phone Fax Patient Preferred [facility] [address] [phone] -- Community Resources No active community resources. Final Discharge Disposition Code: 06 - home with home health care * Case Management/Social Work - Rani Pereira RN - 08/26/2025 3:22 PM EST Discharge Planning Assessment [facility] Patient Name: Hattie Santos Today's Date: 08/26/2025 Admit Date: 08/23/2025 Plan: ongoing Discharge Needs Assessment Row Name 08/26/25 1515 Living Environment People in Home child(dustin), adult Name(s) of People in Home son, daughter Estela will be staying while recovering Current Living Arrangements home Potentially Unsafe Housing Conditions none Primary Care Provided by self;child(dustin) Provides Primary Care For no one Family Caregiver if Needed child(dustin), adult;grandchild(dustin), adult Family Caregiver Names Estela Santos, Lakesha Rodriguez, Afua Melton Quality of Family Relationships involved Able to Return to Prior Arrangements yes Transition Planning Patient/Family Anticipates Transition to home Patient/Family Anticipated Services at Transition none Transportation Anticipated family or friend will provide Discharge Needs Assessment Readmission Within the Last 30 Days previous discharge plan unsuccessful Equipment Currently Used at Home walker, rolling;wheelchair;bath bench;grab bar;nebulizer;bp cuff Concerns to be Addressed denies needs/concerns at this time;discharge planning Anticipated Changes Related to Illness none Equipment Needed After Discharge none Current Discharge Risk dependent with mobility/activities of daily living;physical impairment;chronically ill;cognitively impaired Discharge Coordination/Progress ongoing Discharge Plan Row Name 08/26/25 2384 Plan Plan ongoing Patient/Family in Agreement with Plan yes Plan Comments Spoke with patient and daughter at bedside regarding discharge planning. CM has been contacted by [facility] who reports patient is current with them. Patient indicates having a Rolling Walker, Wheelchair, Shower Bench, Grab Bars in the bathroom, Nebulizer and a Blood Pressure machine. Patient indicates she has prescription coverage with medication being affordable except for Eliquis but they manage. Patient lives in a mobile home with her son, daughter Estela reports she will be staying with them until she is healing up. Attempt to discuss possibility for rehab, daughter called patientgrandaughter/POA to discuss on speakerphone, PT now at bedside to evaluate. Determined that we woul d all discuss rehab options after PT works with patient and places their recommendations. CM following. Patient discharge plan is ongoing. Final Discharge Disposition Code 01 - home or self-care Row Name 08/26/25 9362 Plan Plan update Patient/Family in Agreement with Plan yes Plan Comments Spoke with patient and daughter at bedside regarding discharge plan and discussed potential for rehab needs. Daughter repoting that they will not want [place] for rehab and called her POA, to discuss. PT has arrived at bedside to discuss who has verbalized that if the patient wants to go home then they will take her home. CM will continue to follow. CM following. Patient discharge plan is ongoing. Final Discharge Disposition Code 03 - care home facility (SNF) Continued Care and Services - Admitted Since 08/23/2025 No active coordination exists. Selected Continued Care - Prior Encounters Includes continued care and service providers with selected services from prior encounters from 05/25/2025 to 08/26/2025 Discharged on 08/07/2025 Admission date: 07/31/2025 - Discharge disposition: Home-Health Care [facility] Service Provider Services Address Phone Fax Patient Preferred [facility] [address] [address] [phone] -- Expected Discharge Date and Time Expected Discharge Date Expected Discharge Time Aug 30, 2025 Demographic Summary Row Name 08/26/25 1514 General Information Admission Type inpatient Arrived From home Referral Source admission list Reason for Consult discharge planning Preferred Language Nigerien General Information Comments Alexis Montanez MD Contact Information Permission Granted to Share Info With classification case managercustoms compliance manager Information Comments Lakesha Davila, daughter [phone] Estela Santos, daughter [phone] Afua Melton, Grandchild/POA [phone] Functional Status Row Name 08/26/25 1515 Employment/ Employment/ Comments [employer] Medicare Replacement Psychosocial No documentation. Abuse/Neglect No documentation. Legal No documentation. Substance Abuse No documentation. Patient Forms No documentation. Rani Pereira RN * Therapy Evaluation - Marya Bailey OT - 08/26/2025 2:57 PM EST Images from the original note were not included. Patient Name: Hattie Santos : 1940 Today's Date: 08/26/2025 Admit Date: 08/23/2025 Visit Dx: ICD-10-CM ICD-9-CM 1. Critical limb ischemia of left lower extremity I70.222 440.22 2. Toe necrosis I96 709.8 Patient Active Problem List Diagnosis PAD (peripheral artery disease) Critical limb ischemia of left lower extremity Type 2 diabetes mellitus with diabetic neuropathy, without long-term current use of insulin Primary hypertension Mild intermittent asthma without complication Presence of cardiac pacemaker Peripheral artery disease Claudication Toe necrosis Acute urinary retention Severe protein-calorie malnutrition Past Medical History: Diagnosis Date Asthma Coronary artery disease Diabetes mellitus Pepe catheter present in place since 08/07/25. In place due to inability to urinate following surgery. Hyperlipidemia Hypertension Peripheral vascular disease Poor historian Due to memory Past Surgical History: Procedure Laterality Date BELOW KNEE AMPUTATION Left 08/02/2025 Procedure: GREAT TOE AMPUTATION; Surgeon: Junior Zhao MD; Location: [facility] HYBR[facility] OR; Service:Vascular; Laterality: Left; BELOW KNEE AMPUTATION Left 08/23/2025 Procedure: BELOW THE KNEE AMPUTATION LEFT; Surgeon: Junior Zhao MD; Location: [facility] HYBRID OR; Service: Vascular; Laterality: Left; FEMORAL POPLITEAL BYPASS Left 08/02/2025 Procedure: FEMORAL POPLITEAL BYPASS; Surgeon: Junior Zhao MD; Location: [facility] HYBRID OR; Service: Vascular; Laterality: Left; PACEMAKER IMPLANTATION PERIPHERAL ARTERIAL STENT GRAFT General Information Row Name 08/26/25 1545 OT Time and Intention Document Type evaluation - Mode of Treatment occupational therapy - Row Name 08/26/25 1547 General Information Patient Profile Reviewed yes - Prior Level of Function -- Family providing 09/05 assist. Completing pivots to W/C - Existing Precautions/Restrictions fall;left;non-weight bearing;orthostatic hypotension L BKA. nervecatheter, pepe - Barriers to Rehab medically complex;previous functional deficit;cognitive status - Row Name 08/26/25 1546 Living Environment Current Living Arrangements home - People in Home child(dustin), adult - Row Name 08/26/25 1547 Home Main Entrance Number of Stairs, Main Entrance other (see comments) Ramp - Row Name 08/26/25 1543 Stairs Within Home, Primary Number of Stairs, Within Home, Primary none - Row Name 08/26/25 1541 Cognition Orientation Status (Cognition) oriented to;person;place - Row Name 08/26/25 1541 Safety Issues/Impairments Affecting Functional Mobility Safety Issues Affecting Function (Mobility) awareness of need for assistance;insight into deficits/self-awareness;safety precaution awareness;safety precautions follow-through/compliance;sequencing abilities - Impairments Affecting Function (Mobility) balance;cognition;endurance/activity tolerance;motor planning;pain;postural/trunk control;strength;sensation/sensory awareness - Cognitive Impairments, Mobility Safety/Performance awareness, need for assistance;insight into deficits/self-awareness;safety precaution awareness;safety precaution follow-through;sequencing abilities - User Amor (r) = Recorded By, (t) = Taken By, (c) = Cosigned By Initials Name Provider Type Marya Bailey OT Occupational Therapist Mobility/ADL's Row Name 08/26/25 1549 Bed Mobility Bed Mobility scooting/bridging;supine-sit - Scooting/Bridging [place] (Bed Mobility) verbal cues;minimum assist (75% patient effort);2 person assist - Supine-Sit [place] (Bed Mobility) minimum assist (75% patient effort);verbal cues;2 person assist - Assistive Device (Bed Mobility) head of bed elevated;bed rails;repositioning sheet - Comment, (Bed Mobility) VC'sto sequence transitioning from supine to sit EOB. Initial dizziness, improved with time. -[facility] Name 08/26/25 1549 Transfers Transfers sit-stand transfer;bed-chair transfer - Comment, (Transfers) VC's for hand placement and sequencing. Dizziness after stand, BP improved once seated and dizziness resolved. Pt. picking up R LE throughout T/F despite cues. - Row Name 08/26/25 1549 Bed-Chair Transfer Bed-Chair [place] (Transfers) 2 person assist;verbal cues;dependent (less than 25% patient effort) - Assistive Device (Bed-Chair Transfers) other (see comments) B UE support -[facility] Name 08/26/25 1549 Sit-Stand Transfer Sit-Stand [place] (Transfers) dependent (less than 25% patient effort);2 person assist;verbal cues - Assistive Device (Sit-Stand Transfers) other (see comments) B UE support -[facility] Name 08/26/25 1549 Activities of Daily Living BADL Assessment/Intervention bathing;upper body dressing;lower body dressing - Row Name 08/26/25 1549 Mobility Extremity Weight-bearing Status left lower extremity - Left Lower Extremity (Weight-bearing Status) non weight-bearing (NWB) - Row Name 08/26/25 1549 Bathing Assessment/Intervention [place] Level (Bathing) lower body;perineal area;dependent (less than 25% patient effort) - Position (Bathing) supine;supported standing - Comment, (Bathing) Required clean up secondary to incontinence -[facility] Name 08/26/25 1549 Upper Body Dressing Assessment/Training [place] Level (Upper Body Dressing) don;doff;front opening garment;maximum assist (25% patienteffort) - Position (Upper Body Dressing) supported sitting -[facility] Name 08/26/25 1549 Lower Body Dressing Assessment/Training [place] Level (Lower Body Dressing) don;socks;dependent (less than 25% patient effort) - Position (Lower Body Dressing) sitting up in bed - User Amor (r) = Recorded By, (t) = Taken By, (c) = Cosigned By Initials Name Provider Type Marya Bailey OT Occupational Therapist Obj/Interventions [facility] Name 08/26/25 1554 Sensory Assessment (Somatosensory) Sensory Assessment (Somatosensory) UE sensation intact -[facility] 08/26/25 1554 Vision Assessment/Intervention Visual Impairment/Limitations WFL -[facility] Name 08/26/25 1554 Range of Motion Comprehensive General Range of Motion bilateral upper extremity ROM WFL -[facility] Name 08/26/25 1554 Strength Comprehensive (MMT) General Manual Muscle Testing (MMT) Assessment upper extremity strength deficits identified - Comment, General Manual Muscle Testing (MMT) Assessment B UE grossly 4/5 -[facility] Name 08/26/25 1554 Balance Balance Assessment sitting static balance;sitting dynamic balance;standing static balance;standing dynamic balance - Static Sitting Balance contact guard - Dynamic Sitting Balance contact guard - Position, Sitting Balance unsupported;sitting edge of bed;supported - Static Standing Balance dependent;2-person assist - Dynamic Standing Balance dependent;2-person assist - Position/Device Used, Standing Balance supported;other (see comments) B UE support - Balance Interventions sitting;standing;sit to stand;supported;weight shifting activity - User Amor (r) = Recorded By, (t) = Taken By, (c) = Cosigned By Initials Name Provider Type Marya Bailey OT Occupational Therapist Goals/Plan Row Name 08/26/25 1558 Transfer Goal 1 (OT) Activity/Assistive Device (Transfer Goal 1, OT) mgb-vo-rocet/ltupw-zp-vpz;xow-pk-cdjnd/llvlo-kp-qhy;walker, rolling - [place] Level/Cues Needed (Transfer Goal 1, OT) maximum assist (25-49% patient effort) -LC Time Frame (Transfer Goal 1, OT) assistant terminal manager goal (LTG);10 days -LC Progress/Outcome (Transfer Goal 1, OT) goal ongoing - Row Name 08/26/25 1558 Dressing Goal 1 (OT) Activity/Device (Dressing Goal 1, OT) upper body dressing - [place]/Cues Needed (Dressing Goal 1, OT) moderate assist (50-74% patient effort) - Time Frame (Dressing Goal 1, OT) short term goal (STG);5 days -LC Progress/Outcome (Dressing Goal 1, OT) goal ongoing - Row Name 08/26/25 155 Toileting Goal 1 (OT) Activity/Device (Toileting Goal 1, OT) adjust/manage clothing;perform perineal hygiene;commode, bedside without drop arms - [place] Level/Cues Needed (Toileting Goal 1, OT) maximum assist (25-49% patient effort) - Time Frame (Toileting Goal 1, OT) [facility] goal (LTG);10 days - Progress/Outcome (Toileting Goal 1, OT) goal ongoing - Row Name 08/26/25 6619 Therapy Assessment/Plan (OT) Planned Therapy Interventions (OT) activity tolerance training;adaptive equipment training;BADL retraining;functional balance retraining;occupation/activity based interventions;patient/caregiver educa tion/training;strengthening exercise;transfer/mobility retraining;ROM/therapeutic exercise - User Amor (r) = Recorded By, (t) = Taken By, (c) = Cosigned By Initials Name Provider Type Marya Bailey, OT Occupational Therapist Clinical Impression Row Name 08/26/25 7709 Pain Assessment Pretreatment Pain Rating 0/10 - no pain - Posttreatment Pain Rating 0/10 - no pain - Row Name 08/26/25 3847 Plan of Care Review Plan of Care Reviewed With patient;family - Progress no change - Outcome Evaluation Pt. presents below baseline with ADLs and functional mobility. Limited by decraesed activity tolerance, balance, generalized weakness, and motor planning. Skilled OT services warranted to promote return to PLOF. Recommend SNF at discharge. - Row Name 08/26/25 1556 Therapy Assessment/Plan (OT) Patient/Family Therapy Goal Statement (OT) To take care of self -LC Therapy Frequency (OT) daily -LC Predicted Duration of Therapy Intervention (OT) 10 days -LC Row Name 08/26/25 1556 Therapy Plan Review/Discharge Plan (OT) Anticipated Discharge Disposition (OT) care home facility - Row Name 08/26/25 1556 Vital Signs Pre Systolic BP Rehab 124 -LC Pre Treatment Diastolic BP 67 -LC Intra Systolic BP Rehab 101 -LC Intra Treatment Diastolic BP 58 -LC Post Systolic BP Rehab 91 136/62 once reclined -LC Post Treatment Diastolic BP 59 -LC Pre Patient Position Supine -LC Intra Patient Position Sitting -LC Post Patient Position Sitting - Row Name 08/26/25 1556 Positioning and Restraints Pre-Treatment Position in bed -LC Post Treatment Position chair -LC In Chair notified nsg;reclined;call light within reach;encouraged to call for assist;exit alarm on;with family/caregiver;legs elevated;LLE elevated Special Coccyx pillow per family request - User Amor (r) = Recorded By, (t) = Taken By, (c) = Cosigned By Initials Name Provider Type Marya Bailey, OT Occupational Therapist Outcome Measures Row Name 08/26/25 0037 How much help from another is currently needed... Putting on and taking off regular lower body clothing? 1 -LC Bathing (including washing, rinsing, and drying) 2 -LC Toileting (which includes using toilet bed lemus or urinal) 1 -LC Putting on and taking off regular upper body clothing 2 -LC Taking care of personal grooming (such as brushing teeth) 3 -LC Eating meals 3 -LC AM-PAC 6 Clicks Score (OT) 12 -LC Row Name 08/26/25 1030 How much help from another person do you currently need... Turning from your back to your side while in flat bed without using bedrails? 3 -KM Moving from lying on back to sitting on the side of a flat bed without bedrails? 2 -KM Moving to and from a bed to a chair (including a wheelchair)? 2 -KM Standing up from a chair using your arms (e.g., wheelchair, bedside chair)? 1 -KM Climbing 3-5 steps with a railing? 1 -KM To walk in hospital room? 1 -KM AM-PAC 6 Clicks Score (PT) 10 -KM Row Name 08/26/25 1559 Functional Assessment Outcome Measure Options AM-PAC 6 Clicks Daily Activity (OT) - User Amor (r) = Recorded By, (t) = Taken By, (c) = Cosigned By Initials Name Provider Type Marya Bailey OT Occupational Therapist Edita Castillo RN Registered Nurse Occupational Therapy Education Title: PT OT UPHOLSTERY TRIMMER Therapies (In Progress) Topic: Occupational Therapy (In Progress) Point: ADL training (Done) Learning Progress Summary Patient Acceptance, E, VU,NR by at 08/26/20251456 Point: Precautions (Done) Learning Progress Summary Patient Acceptance, E, VU,NR by at 08/26/20251456 Point: Body mechanics (Done) Learning Progress Summary Patient Acceptance, E, VU,NR by at 08/26/20251456 User Amor Initials Effective Dates Name Provider Type Discipline 04/01/21 - Marya Bailey OT Occupational Therapist OT OT Recommendation and [...] balance retraining, occupation/activity based interventions, patient/caregiver education/training, strengthening exercise, transfer/mobility retraining, ROM/therapeutic exercise Therapy Frequency (OT): daily Plan of Care Review Plan of Care Reviewed With: patient, family Progress: no change Outcome Evaluation: Pt. presents below baseline with ADLs and functional mobility. Limited by decraesed activity tolerance, balance, generalized weakness, and motor planning. Skilled OT services warranted to promote return to PLOF. Recommend SNF at discharge. Time Calculation: Evaluation Complexity (OT) Review Occupational Profile/Medical/Therapy History Complexity: expanded/moderate complexity Assessment, Occupational Performance/Identification of Deficit Complexity: 3-5 performance deficits Clinical Decision Making Complexity (OT): detailed assessment/moderate complexity Overall Complexity of Evaluation (OT): moderate complexity Time Calculation- OT Row Name 08/26/25 1600 Time Calculation- OT OT Start Time 1457 -LC OT Received On 08/26/25 -LC OT Goal Re-Cert Due Date 09/05/25 - Untimed Charges OT Eval/Re-eval Minutes 65 -LC Total Minutes Untimed Charges Total Minutes 65 -LC Total Minutes 65 -LC User Amor (r) = Recorded By, (t) = Taken By, (c) = Cosigned By Initials Name Provider Type Marya Bailey OT Occupational Therapist Therapy Charges for Today Code Description Service Date Service Provider Modifiers Qty [id number] -OT EVAL MOD COMPLEXITY 5 08/26/2025 Marya Bailey OT 1 Marya Bailey OT 08/26/2025 * Therapy Evaluation - Marya Garsia, PT - 08/26/2025 2:51 PM EST Images from the original note were not included. Patient Name: Hattie Santos : 1940 Today's Date: 08/26/2025 Admit Date: 08/23/2025 Visit Dx: ICD-10-CM ICD-9-CM 1. Critical limb ischemia of left lower extremity I70.222 440.22 2. Toe necrosis I96 709.8 Patient Active Problem List Diagnosis PAD (peripheral artery disease) Critical limb ischemia of left lower extremity Type 2 diabetes mellitus with diabetic neuropathy, without long-term current use of insulin Primary hypertension Mild intermittent asthma without complication Presence of cardiac pacemaker Peripheral artery disease Claudication Toe necrosis Acute urinary retention Severe protein-calorie malnutrition Past Medical History: Diagnosis Date Asthma Coronary artery disease Diabetes mellitus Pepe catheter present in place since 08/07/25. In [address] due to inability to urinate following surgery. Hyperlipidemia Hypertension Peripheral vascular disease Poor historian Due to memory Past Surgical History: Procedure Laterality Date BELOW KNEE AMPUTATION Left 08/02/2025 Procedure: GREAT TOE AMPUTATION; Surgeon: Junior Zhao MD; Location: [facility]; Service:Vascular; Laterality: Left; BELOW KNEE AMPUTATION Left 08/23/2025 Procedure: BELOW THE KNEE AMPUTATION LEFT; Surgeon: Junior Zhao MD; Location: [facility]; Service: Vascular; Laterality: Left; FEMORAL POPLITEAL BYPASS Left 08/02/2025 Procedure: FEMORAL POPLITEAL BYPASS; Surgeon: Junior Zhao MD; Location: [facility] OR; Service: Vascular; Laterality: Left; PACEMAKER IMPLANTATION PERIPHERAL ARTERIAL STENT GRAFT General Information Row Name 08/26/25 145 Physical Therapy Time and Intention Document Type evaluation -LR Mode of Treatment physical therapy -LR Row Name 08/26/25 145 General Information Patient Profile Reviewed yes -LR Prior Level of Function -- family recently providing 09/05, patient was performing pivot t/f with assist d/t NWB status on L LE. -LR Existing Precautions/Restrictions fall;non-weight bearing;left;orthostatic hypotension;other (see comments) s/p L BKA, L popliteal nerve catheter, pepe, baseline mild confusion -LR Barriers to Rehab medically complex;previous functional deficit;cognitive status -LR Row Name 08/26/25 145 Living Environment Current Living Arrangements home -LR People in Home child(dustin), adult -LR Row Name 08/26/25 145 Home Main Entrance Number of Stairs, Main Entrance none;other (see comments) ramp -LR Row Name 08/26/25 1451 Stairs Within Home, Primary Number of Stairs, Within Home, Primary none -LR Row Name 08/26/25 145 Cognition Orientation Status (Cognition) oriented to;person;place;verbal cues/prompts needed for orientation;time -LR Row Name 08/26/25 145 Safety Issues/Impairments Affecting Functional Mobility Safety Issues Affecting Function (Mobility) awareness of need for assistance;insight into deficits/self-awareness;judgment;safety precautions follow-through/compliance;sequencing abilities;safety precaution awareness;problem-solving -LR Impairments Affecting Function (Mobility) balance;cognition;endurance/activity tolerance;motor planning;pain;postural/trunk control;strength;sensation/sensory awareness -LR User Amor (r) = Recorded By, (t) = Taken By, (c) = Cosigned By Initials Name Provider Type LR Marya Garsia, PT Physical Therapist Mobility Row Name 08/26/25 145 Bed Mobility Bed Mobility supine-sit -LR Scooting/Bridging [place] (Bed Mobility) verbal cues;minimum assist (75% patient effort);2 person assist -LR Supine-Sit [place] (Bed Mobility) verbal cues;minimum assist (75% patient effort);2 person assist -LR Assistive Device (Bed Mobility) head of bed elevated;bed rails;repositioning sheet;other (see comments) -LR Comment, (Bed Mobility) Verbal cues to move LEs towards EOB and to push up from bed to raise trunk into sitting and to scoot hips out to get feet on floor. Denied dizziness upon sitting up. -LR Row Name 08/26/25 145 Transfers Comment, (Transfers) Verbal cues for correct placement of R foot prior to t/f. R knee blocked priorto t/f. Cues for correct hand placement with t/f. Despite blocking and cues, patient would not maintain R foot on floor and would pick it up repeatedly, therefore bearing no weight to assist with t/f. Attempted sit<- >stand x3 and patient would pick out hand R foot each time. Little to no weight bear ing noted with t/f to chair. -LR Row Name 08/26/251450 Bed-Chair Transfer Bed-Chair [place] (Transfers) verbal cues;dependent (less than 25% patient effort);2 person assist -LR Assistive Device (Bed-Chair Transfers) other (see comments) B UE support -LR Row Name 08/26/251450 Sit-Stand Transfer Sit-Stand [place] (Transfers) verbal cues;dependent (less than 25% patient effort);2 person assist -LR Assistive Device (Sit-Stand Transfers) other (see comments) B UE support -LR Row Name 08/26/251450 Gait/Stairs (Locomotion) [place] Level (Gait) unable to assess -LR Patient was able to Ambulate no, other medical factors prevent ambulation -LR Reason Patient was unable to Ambulate Non-Ambulatory at Baseline d/t NWB status of L LE -LR [place] Level (Stairs) not tested -LR Comment, (Gait/Stairs) See above. -LR Row Name 08/26/251450 Mobility Extremity Weight-bearing Status left lower extremity -LR Left Lower Extremity (Weight-bearing Status) non weight-bearing (NWB) -LR User Amor (r) = Recorded By, (t) = Taken By, (c) = Cosigned By Initials Name Provider Type Marya Griffith, PT Physical Therapist Obj/Interventions Row Name 08/26/25 335 Range of Motion Comprehensive General Range of Motion bilateral lower extremity ROM WFL -LR Row Name 08/26/251450 Strength Comprehensive (MMT) General Manual Muscle Testing (MMT) Assessment lower extremity strength deficits identified -LR Row Name 08/26/251450 Balance Balance Assessment sitting static balance;sitting dynamic balance;standing static balance;standing dynamic balance -LR Static Sitting Balance contact guard -LR Dynamic Sitting Balance minimal assist -LR Position, Sitting Balance unsupported;sitting edge of bed -LR Static Standing Balance dependent;2-person assist -LR Dynamic Standing Balance dependent;2-person assist -LR Position/Device Used, Standing Balance other (see comments) B UE support -LR Row Name 08/26/251450 Sensory Assessment (Somatosensory) Sensory Assessment (Somatosensory) other (see comments) decreased light touch L LE -LR Row Name 08/26/251450 Lower Extremity (Manual Muscle Testing) Lower Extremity: Manual Muscle Testing (MMT) other (see comments) -LR Comment, MMT: Lower Extremity R LE functionally 4+/5, L residual limb functionally 4-/5, independent with SLR -LR User Amor (r) = Recorded By, (t) = Taken By, (c) = Cosigned By Initials Name Provider Type LR Marya Garsia, PT Physical Therapist Goals/Plan Row Name 08/26/251450 Bed Mobility Goal 1 (PT) Activity/Assistive Device (Bed Mobility Goal 1, PT) sit to supine/supine to sit -LR [place] Level/Cues Needed (Bed Mobility Goal 1, PT) contact guard required -LR Time Frame (Bed Mobility Goal 1, PT) [facility] goal (LTG);3 days -LR Progress/Outcomes (Bed Mobility Goal 1, PT) goal ongoing - Row Name 08/26/251450 Transfer Goal 1 (PT) Activity/Assistive Device (Transfer Goal 1, PT) gej-hg-etbyz/lptnh-wm-wbt;jku-ld-ucrvm/kotin-zd-ure;sliding board;wheelchair transfer -LR [place] Level/Cues Needed (Transfer Goal 1, PT) moderate assist (50-74% patient effort);other (see comments) x2 -LR Time Frame (Transfer Goal 1, PT) [facility] goal (LTG);5 days -LR Progress/Outcome (Transfer Goal 1, PT) goal ongoing - Row Name 08/26/251450 Problem Specific Goal 1 (PT) Problem Specific Goal 1 (PT) independent with 150 feet of forward w/c propulsion -LR Time Frame (Problem Specific Goal 1, PT) long-term goal (LTG);5 days -LR Progress/Outcome (Problem Specific Goal 1, PT) goal ongoing -LR Row Name 08/26/25 145 Therapy Assessment/Plan (PT) Planned Therapy Interventions (PT) balance training;bed mobility training;home exercise program;patient/family education;transfer training;strengthening;wheelchair management/propulsion training;motor coordination training;neuromuscular re-education -LR User Amor (r) = Recorded By, (t) = Taken By, (c) = Cosigned By Initials Name Provider Type LR Marya Garsia, PT Physical Therapist Clinical Impression Row Name 08/26/251450 Pain Pretreatment Pain Rating 0/10 - no pain -LR Posttreatment Pain Rating 0/10 - no pain -LR Row Name 08/26/25 145 Plan of Care Review Plan of Care Reviewed With patient;child -LR Progress no change -LR Outcome Evaluation Patient had difficulty maintaining R foot on floor during t/f to weight bear andassist with t/f today, resulting in patient requiring dependent assist x2 for all OOB mobility. Patient currently below functional baseline, demonstrating decreased functional mobility status, impaired balance, decreased endurance, and decreased strength. Will address these deficits to promote return to PLOF. Recommend SNF at d/c. -LR Row Name 08/26/25 145 Therapy Assessment/Plan (PT) Rehab Potential (PT) fair -LR Criteria for Skilled Interventions Met (PT) yes;meets criteria;skilled treatment is necessary -LR Therapy Frequency (PT) daily -LR Row Name 08/26/25 145 Vital Signs Pre Systolic BP Rehab 124 -LR Pre Treatment Diastolic BP 67 -LR Intra Systolic BP Rehab 91 after t/f to chair; 101/58 after sitting for a few minutes EOB -LR Intra Treatment Diastolic BP 59 -LR Post Systolic BP Rehab 136 -LR Post Treatment Diastolic BP 62 -LR Pre Patient Position Supine -LR Intra Patient Position Sitting -LR Post Patient Position Sitting -LR Row Name 08/26/25 145 Positioning and Restraints Pre-Treatment Position in bed -LR Post Treatment Position chair -LR In Chair notified nsg;reclined;sitting;call light within reach;encouraged to call for assist;exit alarm on;with family/caregiver;legs elevated;waffle cushion;on mechanical lift sling -LR User Amor (r) = Recorded By, (t) = Taken By, (c) = Cosigned By Initials Name Provider Type LR Marya Garsia, PT Physical Therapist Outcome Measures Row Name 08/26/25 1451 08/26/25 1030 How much help from another person do you currently need... Turning from your back to your side while in flat bed without using bedrails? 3 -LR 3 -KM Moving from lying on back to sitting on the side of a flat bed without bedrails? 2 -LR 2 -KM Moving to and from a bed to a chair (including a wheelchair)? 1 -LR 2 -KM Standing up from a chair using your arms (e.g., wheelchair, bedside chair)? 1 - LR 1 -KM Climbing 3-5 steps with a railing? 1 -LR 1 -KM To walk in hospital room? 1 -LR 1 -KM AM-PAC 6 Clicks Score (PT) 9 -LR 10 -KM Highest Level of Mobility Goal Sit at Edge of Bed-3 -LR Move to Chair/Commode-4 -KM Row Name 08/26/25 1559 08/26/25 1451 Functional Assessment Outcome Measure Options AM-PAC 6 Clicks Daily Activity (OT) - AM-PAC 6 Clicks Basic Mobility (PT)- User Amor (r) = Recorded By, (t) = Taken By, (c) = Cosigned By Initials Name Provider Type Marya Griffith, PT Physical Therapist Marya Silva, OT Occupational Therapist Edita Castillo, RN Registered Nurse Physical Therapy Education Title: PT OT UPHOLSTERY TRIMMER Therapies (In Progress) Topic: Physical Therapy (Done) Point: Mobility training (Done) Learning Progress Summary Patient Acceptance, E,D, VU,NR by LR at 08/26/2025 145 Comment: Educated on NWB status of L LE, precautions, correct supine to sit t/f technique, correct sit<->stand t/f technique, correct stand pivot t/f technique, and progression of POC. Family Acceptance, E,D, VU,NR by LR at 08/26/2025 1451 Comment: Educated on NWB status of L LE, precautions, correct supine to sit t/f technique, correct sit<->stand t/f technique, correct stand pivot t/f technique, and progression of POC. Point: Home exercise program (Done) Learning Progress Summary Patient Acceptance, E,D, VU,NR by LR at 08/26/20251450 Comment: Educated on NWB status of L LE, precautions, correct supine to sit t/f technique, correct sit<->stand t/f technique, correct stand pivot t/f technique, and progression of POC. Family Acceptance, E,D, VU,NR by LR at 08/26/20251450 Comment: Educated on NWB status of L LE, precautions, correct supine to sit t/f technique, correct sit<->stand t/f technique, correct stand pivot t/f technique, and progression of POC. Point: Body mechanics (Done) Learning Progress Summary Patient Acceptance, E,D, VU,NR by LR at 08/26/20251450 Comment: Educated on NWB status of L LE, precautions, correct supine to sit t/f technique, correct sit<->stand t/f technique, correct stand pivot t/f technique, and progression of POC. Family Acceptance, E,D, VU,NR by LR at 08/26/20251450 Comment: Educated on NWB status of L LE, precautions, correct supine to sit t/f technique, correct sit<->stand t/f technique, correct stand pivot t/f technique, and progression of POC. Point: Precautions (Done) Learning Progress Summary Patient Acceptance, E,D, VU,NR by LR at 08/26/20251450 Comment: Educated on NWB status of L LE, precautions, correct supine to sit t/f technique, correct sit<->stand t/f technique, correct stand pivot t/f technique, and progression of POC. Family Acceptance, E,D, VU,NR by LR at 08/26/20251450 Comment: Educated on NWB status of L LE, precautions, correct supine to sit t/f technique, correct sit<->stand t/f technique, correct stand pivot t/f technique, and progression of POC. User Amor Initials Effective Dates Name Provider Type Discipline LR 11/19/22 - Marya Garsia, PT Physical Therapist PT PT Recommendation and Plan Recommended discharge disposition is based on the functional assessment performed by PT/OT/Speech therapy (as applicable) and may not reflect the medical necessity determined by your provider or services covered by an individual patient's insurance plan or patient resource. Planned Therapy Interventions (PT): balance training, bed mobility training, home exercise program,patient/family education, transfer training, strengthening, wheelchair management/propulsion training, motor coordination training, neuromuscular re-education Therapy Frequency (PT): daily Progress: no change Outcome Evaluation: Patient had difficulty maintaining R foot on floor during t/f to weight bear and assist with t/f today, resulting in patient requiring dependent assist x2 for all OOB mobility. Patient currently below functional baseline, demonstrating decreased functional mobility status, impaired balance, decreased endurance, and decreased strength. Will address these deficits to promote return to PLOF. Recommend SNF at d/c. Time Calculation: PT Evaluation Complexity History, PT Evaluation Complexity: 3 or more personal factors and/or comorbidities Examination of Body Systems (PT Eval Complexity): total of 3 or more elements Clinical Presentation (PT Evaluation Complexity): evolving Clinical Decision Making (PT Evaluation Complexity): moderate complexity Overall Complexity (PT Evaluation Complexity): moderate complexity PT Charges Row Name 08/26/25 1451 Time Calculation Start Time 1451 -LR PT Received On 08/26/25 -LR PT Goal Re-Cert Due Date 09/05/25 -LR Untimed Charges PT Eval/Re-eval Minutes 74 -LR Total Minutes Untimed Charges Total Minutes 74 -LR Total Minutes 74 -LR User Amor (r) = Recorded By, (t) = Taken By, (c) = Cosigned By Initials Name Provider Type LR Marya Garsia, PT Physical Therapist Therapy Charges for Today Code Description Service Date Service Provider Modifiers Qty [id number] HC-PT EVAL MOD COMPLEXITY 5 08/26/2025 Marya Garsia, PT 1 PT G-Codes Outcome Measure Options: AM-PAC 6 Clicks Daily Activity (OT) AM-PAC 6 Clicks Score (PT): 9 AM-PAC 6 Clicks Score (OT): 12 PT Discharge Summary Anticipated Discharge Disposition (PT): care home facility Marya Garsia PT 08/26/2025 documented in this encounter Plan of Treatment Upcoming Encounters Date Type Department Care Team (Late st Contact Info) Description 09/16/2025 10:30 AM EST Office Visit [facility] [address] [place] [address] Melissa Briceño APRN [address] [facility] [address] [place] [address] Scheduled Orders Name Type Priority Associated Diagnoses Orde r Schedule Cardiology Scan Cardiac Services Onc e for 1 Occurrences starting 08/30/2025 until 08/30/2025 Scheduled Referrals Name Type Priority Associated Diagnoses Order Schedule Ambulatory Referral to Home Health Outpatient Referral Routine Critical limb ischemia of left lower extremity Toe necrosis PAD (peripheral artery disease) Type 2 diabetes mellitus with diabetic neuropathy, without long-term current use of insulin Ordered: 08/28/2025 documented as of this encounter Procedures Procedure Name Priority Date/Time Associated Diagnosis Comments POCT GLUCOSE FINGERSTICK Routine 08/28/2025 11:25 AM EST CBC (NO DIFF) Routine 08/28/2025 8:25 AM EST POCT GLUCOSE FINGERSTICK Routine 08/28/2025 7:21 AM EST POCT GLUCOSE FINGERSTICK Routine 08/27/2025 7:56 PM EST POCT GLUCOSE FINGERSTICK Routine 08/27/2025 4:44 PM EST CBC (NO DIFF) Routine 08/27/2025 12:35 PM EST BASIC METABOLIC PANEL Routine 08/27/2025 12:35 PM EST POCT GLUCOSE FINGERSTICK Routine 08/27/2025 11:28 AM EST POCT GLUCOSE FINGERSTICK Routine 08/27/2025 6:58 AM EST POCT GLUCOSE FINGERSTICK Routine 08/26/2025 7:18 PM EST POTASSIUM Timed 08/26/2025 6:52 PM EST POCT GLUCOSE FINGERSTICK Routine 08/26/2025 4:27 PM EST POCT GLUCOSE FINGERSTICK Routine 08/26/2025 11:37 AM EST CBC (NO DIFF) Routine 08/26/2025 8:03 AM EST PHOSPHORUS Routine 08/26/2025 8:03 AM EST MAGNESIUM Routine 08/26/2025 8:03 AM EST FOLATE Routine 08/26/2025 8:03 AM EST VITAMIN B12 Routine 08/26/2025 8:03 AM EST BASIC METABOLIC PANEL Routine 08/26/2025 8:03 AM EST POCT GLUCOSE FINGERSTICK Routine 08/26/2025 7:22 AM EST POCT GLUCOSE FINGERSTICK Routine 08/25/2025 7:47 PM EST POCT GLUCOSE FINGERSTICK Routine 08/25/2025 4:27 PM EST RETICULOCYTES Routine 08/25/2025 12:20 PM EST POCT GLUCOSE FINGERSTICK Routine 08/25/2025 12:06 PM EST POCT GLUCOSE FINGERSTICK Routine 08/25/2025 7:28 AM EST IRON PROFILE + FERRITIN Add-On 08/25/2025 5:28 AM EST CBC (NO DIFF) Routine 08/25/2025 5:28 AM EST MAGNESIUM Add-On 08/25/2025 5:28 AM EST BASIC METABOLIC PANEL Routine 08/25/2025 5:28 AM EST POCT GLUCOSE FINGERSTICK Routine 08/24/2025 7:55 PM EST POCT GLUCOSE FINGERSTICK Routine 08/24/2025 4:28 PM EST POCT GLUCOSE FINGERSTICK Routine 08/24/2025 11:32 AM EST POCT GLUCOSE FINGERSTICK Routine 08/24/2025 7:36 AM EST CBC WITH AUTO DIFFERENTIAL Routine 08/24/2025 6:05 AM EST CBC AND DIFFERENTIAL Routine 08/24/2025 6:05 AM EST BASIC METABOLIC PANEL Routine 08/24/2025 6:05 AM EST POCT GLUCOSE FINGERSTICK Routine 08/23/2025 8:10 PM EST WOUND OSTOMY EVAL AND TREAT Routine 08/23/2025 4:01 PM EST POCT GLUCOSE FINGERSTICK Routine 08/23/2025 2:42 PM EST POCT GLUCOSE FINGERSTICK Routine 08/23/2025 2:20 PM EST TISSUE PATHOLOGY EXAM Routine 08/23/2025 11:30 AM EST 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
[address] [place] [address], * (ABNORMAL) CBC (No Diff) (08/28/2025 8:25 AM EST) WBC 10.02 3.40 - 10.80 10*3/mm3 08/28/2025 9:33 AM EST [facility] RBC 2.86(L) 3.77 - 5.28 10*6/mm3 08/28/2025 9:33 AM EST [facility] Hemoglobin 7.8(L) 12.0 - 15.9 g/dL 08/28/2025 9:33 AM [facility] Hematocrit 25.5(L) 34.0 - 46.6 % 08/28/2025 9:33 AM [facility] MCV 89.2 79.0 - 97.0 fL 08/28/2025 9:33 AM [facility] MCH 27.3 26.6 - 33.0 pg 08/28/2025 9:33 AM [facility] MCHC 30.6(L) 31.5 - 35.7 g/dL 08/28/2025 9:33 AM EST [facility] RDW 13.6 12.3 - 15.4 % 08/28/2025 9:33 AM [facility] RDW-SD 43.8 37.0 - 54.0 fl 08/28/2025 9:33 AM [facility] MPV 9.3 6.0 - 12.0 fL 08/28/2025 9:33 AM [facility] Platelets 418 140 - 450 10*3/mm3 08/28/2025 9:33 AM EST [facility] Blood Venipuncture / Unknown 08/28/2025 8:25 AM EST 08/28/2025 9:21 AM EST Magali Jeffery PA-C LAB BLOOD ORDERABLES F inal Result [facility]
[address] [place] [address], * (ABNORMAL) POC Glucose Once (08/28/2025 7:21 AM EST) Glucose 146(H) 70 - 130 mg/dL 08/28/2025 7:23 AM EST [facility] Comment:Serial Number: [id number]: [id number] Blood 08/28/2025 7:21 AM EST 08/28/2025 7:23 AM EST us Rowena Mancera MD POINT OF CARE TEST ORDERABLES Fi nal Result Performing Organization Address [facility]/ZIP Co de Phone Number [facility]
[address] [place] [address], [place] [phone] * POC Glucose Once (08/27/2025 7:56 PM EST) Glucose 129 70 - 130 mg/dL 08/27/2025 7:58 PM EST [facility] Comment:Serial Number: [id number]: [id number] Blood 08/27/2025 7:56 PM EST 08/27/2025 7:58 PM EST us Rowena Mancera MD POINT OF CARE TEST ORDERABLES Fi nal Result [facility]
[address] [place] [address], * POC Glucose Once (08/27/2025 4:44 PM EST) Glucose 97 70 - 130 mg/dL 08/27/2025 4:49 PM EST [facility] Comment:Serial Number: [id number]: [id number] Blood 08/27/2025 4:44 PM EST 08/27/2025 4:49 PM EST Rowena Mancera MD POINT OF CARE TEST ORDERABLES Fi nal Result [facility]
[address] [place] [address], * (ABNORMAL) Basic Metabolic Panel (08/27/2025 12:35 PM EST) Glucose 130(H) 65 - 99 mg/dL 08/27/2025 2:14 PM EST [facility] BUN 18.0 8.0 - 23.0 mg/dL 08/27/2025 2:14 PM EST [facility] Creatinine 0.41(L) 0.57 - 1.00 mg/dL 08/27/2025 2:14 PM EST [facility] Sodium 137 136 - 145 mmol/L 08/27/2025 2:14 PM EST [facility] Potassium 4.7 3.5 - 5.2 mmol/L 08/27/2025 2:14 PM EST [facility] Chloride 105 98 - 107 mmol/L 08/27/2025 2:14 PM EST [facility] CO2 24.1 22.0 - 29.0 mmol/L 08/27/2025 2:14 PM EST [facility] Calcium 7.8(L) 8.6 - 10.5 mg/dL 08/27/2025 2:14 PM EST [facility] BUN/Creatinine Ratio 43.9(H) 7.0 - 25.0 08/27/2025 2:14 PM EST [facility] Anion Gap 7.9 5.0 - 15.0 mmol/L 08/27/2025 2:14 PM EST [facility] eGFR 97.2 >60.0 mL/min/1.7 3 08/27/2025 2:14 PM EST [facility] Blood Venipuncture / Unknown 08/27/2025 12:35 PM EST 08/27/2025 1:22 PM EST [facility] - 08/27/2025 2:14 PM EST GFR Categories in Chronic Kidney Disease [...] does not include race as a factor Magali Jeffery PA-C LAB BLOOD ORDERABLES F inal Result [facility]
[address] [place] [address], * (ABNORMAL) CBC (No Diff) (08/27/2025 12:35 PM EST) WBC 10.04 3.40 - 10.80 10*3/mm3 08/27/2025 1:28 PM EST [facility] RBC 2.74(L) 3.77 - 5.28 10*6/mm3 08/27/2025 1:28 PM EST [facility] Hemoglobin 7.4(L) 12.0 - 15.9 g/dL 08/27/2025 1:28 PM EST [facility] Hematocrit 25.1(L) 34.0 - 46.6 % 08/27/2025 1:28 PM EST [facility] MCV 91.6 79.0 - 97.0 fL 08/27/2025 1:28 PM EST [facility] MCH 27.0 26.6 - 33.0 pg 08/27/2025 1:28 PM [facility] MCHC 29.5(L) 31.5 - 35.7 g/dL 08/27/2025 1:28 PM [facility] RDW 13.5 12.3 - 15.4 % 08/27/2025 1:28 PM EST [facility] RDW-SD 44.1 37.0 - 54.0 fl 08/27/2025 1:28 PM [facility] MPV 9.5 6.0 - 12.0 fL 08/27/2025 1:28 PM [facility] Platelets 404 140 - 450 10*3/mm3 08/27/2025 1:28 PM [facility] Blood Venipuncture / Unknown 08/27/2025 12:35 PM EST 08/27/2025 1:21 PM EST Magali Jeffery PA-C LAB BLOOD ORDERABLES F inal Result [facility]
[address] [place] [address], * POC Glucose Once (08/27/2025 11:28 AM EST) Glucose 104 70 - 130 mg/dL 08/27/2025 11:38 AM EST [facility] Comment:Serial Number: [id number]: [id number] Blood 08/27/2025 11:2 8 AM EST 08/27/2025 11:38 AM EST Rowena Mancera MD POINT OF CARE TEST ORDERABLES Fi nal Result Performing Organization Address City/[facility]/ZIP Co de Phone Number [facility]
[address] [place] [address], * POC Glucose Once (08/27/2025 6:58 AM EST) Glucose 99 70 - 130 mg/dL 08/27/2025 7:02 AM EST [facility] Comment:Serial Number: [id number]: [id number] Blood 08/27/2025 6:58 AM EST 08/27/2025 7:02 AM EST Rowena Mancera MD POINT OF CARE TEST ORDERABLES Fi nal Result Performing Organization Address [facility]/ZIP Co de Phone Number [facility]
[address] [place] [address], * POC Glucose Once (08/26/2025 7:18 PM EST) Glucose 118 70 - 130 mg/dL 08/26/2025 7:19 PM EST [facility] Comment:Serial Number: [id number]: [id number] Blood 08/26/2025 7:18 PM EST 08/26/2025 7:19 PM EST Delbert Quesada DO POINT OF CARE TEST ORDERA BLES Final Result Performing Organization Address [facility] Co de Phone Number [facility]
[address] [place] [address], * Potassium (08/26/2025 6:52 PM EST) Potassium 5.2 3.5 - 5.2 mmol/L 08/26/2025 7:20 PM EST [facility] Blood Venipuncture / Unknown 08/26/2025 6:52 PM EST 08/26/2025 7:00 PM EST Delbert Quesada DO LAB BLOOD ORDERABLES Ely l Result [facility]
[address] [place] [address], * (ABNORMAL) POC Glucose Once (08/26/2025 4:27 PM EST) Glucose 239(H) 70 - 130 mg/dL 08/26/2025 4:29 PM EST [facility] Comment:Serial Number: [id number]: [id number] Blood 08/26/2025 4:27 PM EST 08/26/2025 4:29 PM EST Delbert Quesada DO POINT OF CARE TEST ORDERA BLES Final Result [facility]
[address] [place] [address], * (ABNORMAL) POC Glucose Once (08/26/2025 11:37 AM EST) Glucose 142(H) 70 - 130 mg/dL 08/26/2025 11:40 AM EST [facility] Comment:Serial Number: [id number]: [id number] Blood 08/26/2025 11:3 7 AM EST 08/26/2025 11:40 AM EST Delbert Quesada DO POINT OF CARE TEST ORDERA BLES Final Result [facility]
[address] [place] [address], * Phosphorus (08/26/2025 8:03 AM EST) Phosphorus 2.6 2.5 - 4.5 mg/dL 08/26/2025 8:59 AM EST [facility] Blood Venipuncture / Unknown 08/26/2025 8:03 AM EST 08/26/2025 8:37 AM EST Magali Jeffery PA-C LAB BLOOD ORDERABLES F inal Result [facility]
[address] [place] [address], * (ABNORMAL) Basic Metabolic Panel (08/26/2025 8:03 AM EST) Glucose 112(H) 65 - 99 mg/dL 08/26/2025 8:59 AM EST [facility] BUN 6.6(L) 8.0 - 23.0 mg/dL 08/26/2025 8:59 AM EST [facility] Creatinine 0.34(L) 0.57 - 1.00 mg/dL 08/26/2025 8:59 AM EST [facility] Sodium 138 136 - 145 mmol/L 08/26/2025 8:59 AM EST [facility] Potassium 3.3(L) 3.5 - 5.2 mmol/L 08/26/2025 8:59 AM EST [facility] Chloride 102 98 - 107 mmol/L 08/26/2025 8:59 AM EST [facility] CO2 29.1(H) 22.0 - 29.0 mmol/L 08/26/2025 8:59 AM EST [facility] Calcium 7.8(L) 8.6 - 10.5 mg/dL 08/26/2025 8:59 AM EST [facility] BUN/Creatinine Ratio 19.4 7.0 - 25.0 08/26/2025 8:59 AM EST [facility] Anion Gap 6.9 5.0 - 15.0 mmol/L 08/26/2025 8:59 AM EST [facility] eGFR 101.6 >60.0 mL/min/1.7 3 08/26/2025 8:59 AM EST [facility] Blood Venipuncture / Unknown 08/26/2025 8:03 AM EST 08/26/2025 8:37 AM EST [facility] - 08/26/2025 8:59 AM EST GFR Categories in Chronic Kidney [...] does not include race as a factor Magail Jeffery PA-C LAB BLOOD ORDERABLES F inal Result [facility]
[address] [place] [address], * (ABNORMAL) CBC (No Diff) (08/26/2025 8:03 AM EST) WBC 11.81(H) 3.40 - 10.80 10*3/mm3 08/26/2025 8:50 AM EST [facility] RBC 2.79(L) 3.77 - 5.28 10*6/mm3 08/26/2025 8:50 AM EST [facility] Hemoglobin 7.7(L) 12.0 - 15.9 g/dL 08/26/2025 8:50 AM [facility] Hematocrit 24.5(L) 34.0 - 46.6 % 08/26/2025 8:50 AM EST [facility] MCV 87.8 79.0 - 97.0 fL 08/26/2025 8:50 AM EST [facility] MCH 27.6 26.6 - 33.0 pg 08/26/2025 8:50 AM EST [facility] MCHC 31.4(L) 31.5 - 35.7 g/dL 08/26/2025 8:50 AM EST [facility] RDW 13.2 12.3 - 15.4 % 08/26/2025 8:50 AM EST [facility] RDW-SD 41.9 37.0 - 54.0 fl 08/26/2025 8:50 AM [facility] MPV 9.2 6.0 - 12.0 fL 08/26/2025 8:50 AM EST [facility] Platelets 376 140 - 450 10*3/mm3 08/26/2025 8:50 AM EST [facility] Blood Venipuncture / Unknown 08/26/2025 8:03 AM EST 08/26/2025 8:38 AM EST Magali Jeffery PA-C LAB BLOOD ORDERABLES F inal Result [facility]
[address] [place] [address], * Magnesium (08/26/2025 8:03 AM EST) Magnesium 2.0 1.6 - 2.4 mg/dL 08/26/2025 9:05 AM [facility] Blood Venipuncture / Unknown 08/26/2025 8:03 AM EST 08/26/2025 8:37 AM EST Magali Jeffery PA-C LAB BLOOD ORDERABLES F inal Result [facility]
[address] [place] [address], [place] [phone] * (ABNORMAL) Vitamin B12 (08/26/2025 8:03 AM EST) Vitamin B-12 1,062(H) 211 - 946 pg/mL 08/26/2025 12:29 PM EST [facility] Blood Venipuncture / Unknown 08/26/2025 8:03 AM EST 08/26/2025 8:38 AM EST Narrative [facility] - 08/26/2025 12:29 PM EST Results may be falsely increased if patient taking Biotin. Magali Jeffery PA-C LAB BLOOD ORDERABLES F inal Result Performing Organization Address City/[facility]/ZIP Co de Phone Number [facility]
[address] [place] [address], * Folate (08/26/2025 8:03 AM EST) Folate 6.55 4.78 - 24.20 ng/mL 08/26/2025 12:29 PM EST [facility] Blood Venipuncture / Unknown 08/26/2025 8:03 AM EST 08/26/2025 8:38 AM EST Narrative [facility] - 08/26/2025 12:29 PM EST Results may be falsely increased if patient taking Biotin. Magali Jeffery PA-C LAB BLOOD ORDERABLES F inal Result Performing Organization Address [facility] Co de Phone Number [facility]
[address] [place] [address], * POC Glucose Once (08/26/2025 7:22 AM EST) [facility] Glucose 119 70 - 130 mg/dL 08/26/2025 7:25 AM EST [facility] Comment:Serial Number: [id number]: [id number] Blood 08/26/2025 7:22 AM EST 08/26/2025 7:25 AM EST Delbert Quesada DO POINT OF CARE TEST ORDERA BLES Final Result Performing Organization Address City/[facility]/ZIP Co de Phone Number [facility]
[address] [place] [address], * (ABNORMAL) POC Glucose Once (08/25/2025 7:47 PM EST) Glucose 199(H) 70 - 130 mg/dL 08/25/2025 7:50 PM EST [facility] Comment:Serial Number: [id number]: [id number] Wilda Comment 1 Notified Patients RN 08/25/2025 7:50 PM EST [facility] Blood 08/25/2025 7:47 PM EST 08/25/2025 7:50 PM EST Delbert Josesha Quesada DO POINT OF CARE TEST ORDERA BLES Final Result [facility]
[address] [place] [address], * (ABNORMAL) POC Glucose Once (08/25/2025 4:27 PM EST) Glucose 144(H) 70 - 130 mg/dL 08/25/2025 4:29 PM EST [facility] Comment:Serial Number: [id number]: [id number] Blood 08/25/2025 4:27 PM EST 08/25/2025 4:29 PM EST Delbert Quesada DO POINT OF CARE TEST ORDERA BLES Final Result [facility] [place] [address], * (ABNORMAL) Reticulocytes (08/25/2025 12:20 PM EST) Reticulocyte % 2.11(H) 0.70 - 1.90 % 08/25/2025 12:46 PM EST [facility] Reticulocyte Absolute 0.0559 0.0200 - 0.1300 10*6/mm3 08/25/2025 12:46 PM EST [facility] Blood Venipuncture / Unknown 08/25/2025 12:20 PM EST 08/25/2025 12:43 PM EST Magali Jeffery PA-C LAB BLOOD ORDERABLES F inal Result Performing Organization Address [facility] Co de Phone Number [facility]
[address] [place] [address], * POC Glucose Once (08/25/2025 12:06 PM EST) Glucose 127 70 - 130 mg/dL 08/25/2025 12:09 PM EST [facility] Comment:Serial Number: [id number]: [id number] Blood 08/25/2025 12:0 6 PM EST 08/25/2025 12:09 PM EST Delbert Quesada DO POINT OF CARE TEST ORDERA BLES Final Result Performing Organization Address [facility] Co de Phone Number [facility]
[address] [place] [address], * (ABNORMAL) POC Glucose Once (08/25/2025 7:28 AM EST) Glucose 138(H) 70 - 130 mg/dL 08/25/2025 7:30 AM EST [facility] Comment:Serial Number: [id number]: [id number] Blood 08/25/2025 7:28 AM EST 08/25/2025 7:30 AM EST Delbert Ramossha Gandhis DO POINT OF CARE TEST ORDERA BLES Final Result Performing Organization Address [facility] de Phone Number [facility]
[address] [place] [address], * (ABNORMAL) Magnesium (08/25/2025 5:28 AM EST) Magnesium 1.5(L) 1.6 - 2.4 mg/dL 08/25/2025 12:32 PM EST [facility] Blood Venipuncture / Unknown 08/25/2025 5:28 AM EST 08/25/2025 6:36 AM EST Magali Jeffery PA-C LAB BLOOD ORDERABLES F inal Result Performing Organization Address City/[facility]/ZIP Co de Phone Number [facility]
[address] [place] [address], * (ABNORMAL) Iron Profile + Ferritin (08/25/2025 5:28 AM EST) Iron 11(L) 37 - 145 mcg/dL 08/25/2025 12:32 PM [facility] Iron Saturation (TSAT) 6(L) 20 - 50 % 08/25/2025 12:32 PM [facility] Transferrin 127(L) 200 - 360 mg/dL 08/25/2025 12:32 PM EST [facility] TIBC 189(L) 298 - 536 mcg/dL 08/25/2025 12:32 PM [facility] Ferritin 77.90 13.00 - 150.00 ng/mL 08/25/2025 12:32 PM EST [facility] Blood Venipuncture / Unknown 08/25/2025 5:28 AM EST 08/25/2025 6:36 AM EST Narrative [facility] - 08/25/2025 12:32 PM EST Results may be falsely decreased if patient taking Biotin. Magali Jeffery PA-C LAB BLOOD ORDERABLES F inal Result Performing Organization Address City/[facility]/ZIP Co de Phone Number [facility]
[address] [place] [address], * (ABNORMAL) CBC (No Diff) (08/25/2025 5:28 AM EST) WBC 9.69 3.40 - 10.80 10*3/mm3 08/25/2025 6:46 AM EST [facility] RBC 2.70(L) 3.77 - 5.28 10*6/mm3 08/25/2025 6:46 AM EST [facility] Hemoglobin 7.5(L) 12.0 - 15.9 g/dL 08/25/2025 6:46 AM EST [facility] Hematocrit 23.6(L) 34.0 - 46.6 % 08/25/2025 6:46 AM EST [facility] MCV 87.4 79.0 - 97.0 fL 08/25/2025 6:46 AM EST [facility] MCH 27.8 26.6 - 33.0 pg 08/25/2025 6:46 AM EST [facility] MCHC 31.8 31.5 - 35.7 g/dL 08/25/2025 6:46 AM EST [facility] RDW 13.2 12.3 - 15.4 % 08/25/2025 6:46 AM EST [facility] RDW-SD 41.7 37.0 - 54.0 fl 08/25/2025 6:46 AM [facility] MPV 9.0 6.0 - 12.0 fL 08/25/2025 6:46 AM [facility] Platelets 367 140 - 450 10*3/mm3 08/25/2025 6:46 AM EST [facility] Blood Venipuncture / Unknown 08/25/2025 5:28 AM EST 08/25/2025 6:36 AM EST us Delbert Quesada DO LAB BLOOD ORDERABLES Ely coelho Result [facility]
[address] [place] [address], * (ABNORMAL) Basic Metabolic Panel (08/25/2025 5:28 AM EST) Pathologist [facility] [place] Glucose 107(H) 65 - 99 mg/dL 08/25/2025 7:09 AM [facility] BUN 10.1 8.0 - 23.0 mg/dL 08/25/2025 7:09 AM [facility] Creatinine 0.33(L) 0.57 - 1.00 mg/dL 08/25/2025 7:09 AM [facility] Sodium 134(L) 136 - 145 mmol/L 08/25/2025 7:09 AM [facility] Potassium 3.7 3.5 - 5.2 mmol/L 08/25/2025 7:09 AM [facility] Chloride 100 98 - 107 mmol/L 08/25/2025 7:09 AM [facility] CO2 25.7 22.0 - 29.0 mmol/L 08/25/2025 7:09 AM [facility] Calcium 7.8(L) 8.6 - 10.5 mg/dL 08/25/2025 7:09 AM [facility] BUN/Creatinine Ratio 30.6(H) 7.0 - 25.0 08/25/2025 7:09 AM [facility] Anion Gap 8.3 5.0 - 15.0 mmol/L 08/25/2025 7:09 AM [facility] eGFR 102.4 >60.0 mL/min/1.7 3 08/25/2025 7:09 AM [facility] Blood Venipuncture / Unknown 08/25/2025 5:28 AM EST 08/25/2025 6:36 AM EST [facility] - 08/25/2025 7:09 AM EST GFR Categories in Chronic Kidney [...] does not include race as a factor Delbert Quesada DO LAB BLOOD ORDERABLES Ely l Result [facility]
[address] [place] [address], * (ABNORMAL) POC Glucose Once (08/24/2025 7:55 PM EST) Glucose 161(H) 70 - 130 mg/dL 08/24/2025 7:57 PM EST [facility] Comment:Serial Number: [id number]: [id number] Nova Comment 1 Notified Patients RN 08/24/2025 7:57 PM EST [facility] Blood 08/24/2025 7:55 PM EST 08/24/2025 7:57 PM EST Delbert Jose Quesada POINT OF CARE TEST ORDERA BLES Final Result Performing Organization Address [facility]/ZIP Co de Phone Number [facility]
[address] [place] [address], * POC Glucose Once (08/24/2025 4:28 PM EST) Glucose 100 70 - 130 mg/dL 08/24/2025 4:31 PM EST [facility] Comment:Serial Number: [id number]: [id number] Blood 08/24/2025 4:28 PM EST 08/24/2025 4:31 PM EST Delbert Ramosn Quesada DO POINT OF CARE TEST ORDERA BLES Final Result Performing Organization Address City/[facility]/ZIP Co de Phone Number [facility] [facility]
[address] [place] [address], * POC Glucose Once (08/24/2025 11:32 AM EST) Glucose 111 70 - 130 mg/dL 08/24/2025 11:34 AM EST [facility] Comment:Serial Number: [id number]: [id number] Blood 08/24/2025 11:3 2 AM EST 08/24/2025 11:34 AM EST Delbert Quesada DO POINT OF CARE TEST ORDERA BLES Final Result [facility]
[address] [place] [address], * POC Glucose Once (08/24/2025 7:36 AM EST) Pathologist [facility] [place] Glucose 94 70 - 130 mg/dL 08/24/2025 7:38 AM EST [facility] Comment:Serial Number: [id number]: [id number] Blood 08/24/2025 7:36 AM EST 08/24/2025 7:38 AM EST Delbert Quesada DO POINT OF CARE TEST ORDERA BLES Final Result Performing Organization Address [facility] Co de Phone Number [facility]
[address] [place] [address], * (ABNORMAL) CBC Auto Differential (08/24/2025 6:05 AM EST) Pathologist [facility] [place] WBC 11.45(H) 3.40 - 10.80 10*3/mm3 08/24/2025 7:29 AM EST [facility] RBC 2.88(L) 3.77 - 5.28 10*6/mm3 08/24/2025 7:29 AM EST [facility] Hemoglobin 8.1(L) 12.0 - 15.9 g/dL 08/24/2025 7:29 AM EST [facility] Hematocrit 26.0(L) 34.0 - 46.6 % 08/24/2025 7:29 AM [facility] MCV 90.3 79.0 - 97.0 fL 08/24/2025 7:29 AM [facility] MCH 28.1 26.6 - 33.0 pg 08/24/2025 7:29 AM [facility] MCHC 31.2(L) 31.5 - 35.7 g/dL 08/24/2025 7:29 AM [facility] RDW 13.2 12.3 - 15.4 % 08/24/2025 7:29 AM [facility] RDW-SD 43.7 37.0 - 54.0 fl 08/24/2025 7:29 AM [facility] MPV 9.2 6.0 - 12.0 fL 08/24/2025 7:29 AM [facility] Platelets 407 140 - 450 10*3/mm3 08/24/2025 7:29 AM [facility] Neutrophil % 68.4 42.7 - 76.0 % 08/24/2025 7:29 AM [facility] Lymphocyte % 17.0(L) 19.6 - 45.3 % 08/24/2025 7:29 AM [facility] Monocyte % 12.0 5.0 - 12.0 % 08/24/2025 7:29 AM [facility] Eosinophil % 1.7 0.3 - 6.2 % 08/24/2025 7:29 AM [facility] Basophil % 0.3 0.0 - 1.5 % 08/24/2025 7:29 AM [facility] Immature Grans % 0.6(H) 0.0 - 0.5 % 08/24/2025 7:29 AM [facility] Neutrophils, Absolute 7.83(H) 1.70 - 7.00 10*3/mm3 08/24/2025 7:29 AM [facility] Lymphocytes, Absolute 1.95 0.70 - 3.10 10*3/mm3 08/24/2025 7:29 AM [facility] Monocytes, Absolute 1.37(H) 0.10 - 0.90 10*3/mm3 08/24/2025 7:29 AM EST [facility] Eosinophils, Absolute 0.20 0.00 - 0.40 10*3/mm3 08/24/2025 7:29 AM EST [facility] Basophils, Absolute 0.03 0.00 - 0.20 10*3/mm3 08/24/2025 7:29 AM EST [facility] Immature Grans, Absolute 0.07(H) 0.00 - 0.05 10*3/mm3 08/24/2025 7:29 AM [facility] nRBC 0.0 0.0 - 0.2 /100 WBC 08/24/2025 7:29 AM [facility] Blood Venipuncture / Unknown 08/24/2025 6:05 AM EST 08/24/2025 6:58 AM EST Mar[facility] MD LAB BLOOD ORDERABLES Final Res ult [facility]
[address] [place] [address], * (ABNORMAL) Basic Metabolic Panel (08/24/2025 6:05 AM EST) Glucose 81 65 - 99 mg/dL 08/24/2025 7:26 AM [facility] BUN 15.8 8.0 - 23.0 mg/dL 08/24/2025 7:26 AM [facility] Creatinine 0.40(L) 0.57 - 1.00 mg/dL 08/24/2025 7:26 AM [facility] Sodium 137 136 - 145 mmol/L 08/24/2025 7:26 AM [facility] Potassium 4.3 3.5 - 5.2 mmol/L 08/24/2025 7:26 AM EST [facility] Chloride 102 98 - 107 mmol/L 08/24/2025 7:26 AM EST [facility] CO2 24.8 22.0 - 29.0 mmol/L 08/24/2025 7:26 AM EST [facility] Calcium 8.1(L) 8.6 - 10.5 mg/dL 08/24/2025 7:26 AM EST [facility] BUN/Creatinine Ratio 39.5(H) 7.0 - 25.0 08/24/2025 7:26 AM EST [facility] Anion Gap 10.2 5.0 - 15.0 mmol/L 08/24/2025 7:26 AM EST [facility] eGFR 97.7 >60.0 mL/min/1.7 3 08/24/2025 7:26 AM EST [facility] Blood Venipuncture / Unknown 08/24/2025 6:05 AM EST 08/24/2025 6:57 AM EST [facility] - 08/24/2025 7:26 AM EST GFR Categories in Chronic Kidney [...] include race as a factor us Marlon [facility] MD LAB BLOOD ORDERABLES Final Res ult [facility]
[address] [place] [address], * POC Glucose Once (08/23/2025 8:10 PM EST) Glucose 126 70 - 130 mg/dL 08/23/2025 8:12 PM EST [facility] Comment:Serial Number: [id number]: [id number] Blood 08/23/2025 8:10 PM EST 08/23/2025 8:12 PM EST Neda Ocampo DO POINT OF CARE TEST ORDERABL ES Final Result Performing Organization Address [facility] de Phone Number [facility]
[address] [place] [address], * POC Glucose Once (08/23/2025 2:42 PM EST) Glucose 123 70 - 130 mg/dL 08/23/2025 2:45 PM EST [facility] Comment:Serial Number: [id number]: [id number] Blood 08/23/2025 2:42 PM EST 08/23/2025 2:45 PM EST Junior Pavel FLYNN POINT OF CARE TEST ORDERABLES Final Result Performing Organization Address [facility] de Phone Number [facility]
[address] [place] [address], * (ABNORMAL) POC Glucose Once (08/23/2025 2:20 PM EST) Glucose 51(L) 70 - 130 mg/dL 08/23/2025 2:23 PM EST [facility] Comment:Serial Number: [id number]: [id number] Blood 08/23/2025 2:20 PM EST 08/23/2025 2:23 PM EST Junior Pavel FLYNN POINT OF CARE TEST ORDERABLES Final Result Performing Organization Address [facility] de Phone Number [facility]
[address] [place] [address], * Tissue Pathology Exam (08/23/2025 11:30 AM EST) Case Report Surgical Pathology Report Case: [id number] Authorizing Provider: Junior Zhao MD Collected: 08/23/2025 11:30 AM Ordering Location: [facility] Received: 08/23/2025 01:01 PM OR Pathologist: Daniel Resendez MD Specimen: Knee, Left, LEFT BELOW THE KNEE AMPUTATION 08/27/2025 1:08 PM [facility] Clinical Information Critical limb ischemia of left lower extremity Toe necrosis 08/27/2025 1:08 PM EST [facility] Final Diagnosis LEFT BELOW THE KNEE AMPUTATION: Ulcerated and necrotic skin and subcutaneous tissue Underlying bone with osteonecrosis Negative for specific microorganisms Negative for dysplasia or malignancy Benign viable surgical resection margin 08/27/2025 1:08 PM [facility] at 1308 EST Gross Description 1. Knee, Left. Received fresh labeled left below the knee amputation is a left below the knee amputation consisting of a 21 cm long by 5 cm in diameter lower leg and a 20 x 7.5 x 5.5 cm foot with attached digits #2-5. The great toe has been previously amputated. At the great toe amputation site there is a 4.5 x 4 cm area of ulcerated, dusky skin with black suture material. There is an 8.5 x 6.2 cm ulcer on the dorsal aspect of the foot. There is a 7.0 x 4.6 cm ulcer on the heel. There are at least 4 ulcerated, discolored areas on the posterior aspect of the leg ranging from 1.0 to 6.2 cm in greatest dimension. The remaining shabazz skin has scattered crusting. The proximal skin margin appears grossly viable. Sectioning of the vasculature reveals luminal stenosis and calcification. Sectioning of the bone under the great toe amputation site reveals dusky discoloration and possible softening. 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 LDP 08/27/2025 1:08 PM [facility] Microscopic Description The slides are reviewed and demonstrate histopathologic features supporting the above rendered diagnosis. 08/27/2025 1:08 PM [facility] Tissue Structure of left knee region / Unknown 08/23/2025 11:30 AM EST 08/23/2025 1:01 PM EST us Junior Pavel FLYNN PATHOLOGY/CYTOLOGY ORDERABLES Final Result Performing Organization Address City/[facility]/ZIP Co de Phone Number [facility]
[address] [place] [address], * POC Glucose Once (08/23/2025 10:03 AM EST) Glucose 82 70 - 130 mg/dL 08/23/2025 10:05 AM EST [facility] Comment:Serial Number: [id number]: [id number] Blood 08/23/2025 10:0 3 AM EST 08/23/2025 10:05 AM EST us Junior Pavel FLYNN POINT OF CARE TEST ORDERABLES Final Result Performing Organization Address City/[facility] de Phone Number [facility]
[address] [place] [address], documented in this encounter Visit Diagnoses Diagnosis Critical limb ischemia of left lower extremity- Primary Critical limb ischemia of left lower extremity Toe necrosis PAD (peripheral artery disease) Unspecified peripheral vascular disease Type 2 diabetes mellitus with diabetic neuropathy, without long-term current use of insulin Claudication Unspecified peripheral vascular disease Type 2 diabetes mellitus with diabetic neuropathy, without long-term current use of insulin Acute urinary retention Primary hypertension Unspecified essential hypertension Severe protein-calorie malnutrition Other severe protein-calorie malnutrition documented in this encounter Admitting Diagnoses Diagnosis Critical limb ischemia of left lower extremity documented in this encounter Administered Medications Inactive Administered Medications - up to 3 most recent administrations Medication Order MAR Action Action Date Dose Rate Site acetaminophen (TYLENOL) suppository 650 mg 650 mg, Rectal, Every 4 Hours PRN, Mild Pain, Fever, temperature greater than 100.4 F, Starting on 08/24/25 at 0915, If given for fever, use fever parameter: [...] tablet 650 mg 650 mg, Oral, Every 6 Hours PRN, Mild Pain, Headache, Fever, Moderate Pain, fever greater than 100.4 F, Starting on 08/24/25 at 0915, If given for fever, use fever parameter: [...] Pain Score of 7-10, CPOT 5-8 Given 08/24/2025 9:57 AM EST 650 mg albuterol (PROVENTIL) nebulizer solution 0.083% 2.5 mg/3mL 2.5 mg, Nebulization, Every 6 Hours PRN, Shortness of Air, Wheezing, Starting on 08/24/25 at 0944, Include Respiratory Treatment Education apixaban (ELIQUIS) tablet 2.5 mg 2.5 mg, Oral, Every 12 Hours Scheduled, First dose on Tue08/26/25 at 2100, Tablet may be crushed and suspended in 60 mL of water or D5W and immediately delivered via NG tube. Avoid grapefruit juice., Indications: Atrial Fibrillation - requiring full anticoagulationIndications:Atrial Fibrillation - requiring full anticoagulation Given 08/28/2025 9:02 AM EST 2.5 mg Given 08/27/2025 8:28 PM EST 2.5 mg Given 08/27/2025 8:39 AM EST 2.5 mg bisacodyl (DULCOLAX) EC tablet 5 mg 5 mg, Oral, Daily PRN, Constipation, Use if polyethylene glycol is ineffective, Starting on Tue08/28/25 at 0729, Use if no bowel movement after 12 hours. Swallow whole. Do not crush, split, or chew tablet. bisacodyl (DULCOLAX) suppository 10 mg 10 mg, Rectal, Daily PRN, Constipation, Use if bisacodyl oral is ineffective, Starting on Tue08/28/25 at 0729, Use if no bowel movement after 12 hours. Hold for diarrhea budesonide-formoterol (SYMBICORT) 160-4.5 MCG/ACT inhaler 2 puff 2 puff, Inhalation, 2 Times Daily - RT, First dose on Tue08/23/25 at 2130, Include Respiratory Treatment Education (SP) Shake well. Rinse mouth after use, do not swallow water. Send aerosols to pharmacy in ziplock bag for proper disposal. Given 08/28/2025 8:21 AM EST 2 puffs Given 08/27/2025 7:28 PM EST 2 puffs Given 08/27/2025 10:32 AM EST 2 puffs Calcium Replacement - Follow Nurse / BPA Driven Protocol Open Order & Select [facility] Electrolyte Replacement Protocol Algorithm to View Details carvedilol (COREG) tablet 3.125 mg 3.125 mg, Oral, 2 Times Daily With Meals, First dose (after last modification) on Tue08/27/25 at 1800, Hold for SBP less than 100, DBP less than 60, or heart rate less than 50. If a dose is held, please contact the provider. Give with food., On hold since Tue08/28/2025 at 0901 until manually unheld Given 08/27/2025 5:34 PM EST 3.125 mg carvedilol (COREG) tablet 6.25 mg 6.25 mg, Oral, 2 Times Daily With Meals, First dose on Tue08/23/25 at 1800, Hold for SBP less than 100, DBP less than 60, or heart rate less than 50. If a dose is held, please contact the provider. Give with food. Given 08/26/2025 5:57 PM EST 6.25 mg Given 08/25/2025 6:25 PM EST 6.25 mg Given 08/25/2025 8:39 AM EST 6.25 mg clopidogrel (PLAVIX) tablet 75 mg 75 mg, Oral, Daily, First dose on Tue08/24/25 at 0900 Given 08/28/2025 9:02 AM EST 75 mg Given 08/27/2025 8:38 AM EST 75 mg Given 08/26/2025 11:07 AM EST 75 mg digoxin (LANOXIN) tablet 125 mcg 125 mcg, Oral, Daily Digoxin, First dose on 08/24/25 at 1200, Check and record heart rate. Given 08/28/2025 11:47 AM EST 125 mcg Given 08/27/2025 12:07 PM EST 125 mcg Given 08/26/2025 12:34 PM EST 125 mcg famotidine (PEPCID) tablet 20 mg 20 mg, Oral, 60 Minutes Pre-Op, Starting on Tue08/23/25 at 0928, For 1 dose Given 08/23/2025 10:19 AM EST 20 mg ferric gluconate (FERRLECIT)125 MG in sodium chloride 0.9 % 100 mL IVPB 125 mg, Intravenous, at 100 mL/hr, Administer over 60 Minutes, Daily, First dose on Tue08/25/25 at 1615, For 5 doses, Not to exceed 2.1 mg/min, Please Select Indication for Intravenous Iron Therapy (Criteria can be seen in report to the left): Absolute Iron Deficiency New Bag 08/28/2025 9:04 AM EST 125 mg 100 mL/hr New Bag 08/27/2025 8:38 AM EST 125 mg 100 mL/hr New Bag 08/26/2025 11:07 AM EST 125 mg 100 mL/hr ferrous sulfate tablet 325 mg 325 mg, Oral, Every Other Day, First dose on Sadaf 08/29/25 at 0900, Swallow whole. Do not crush, split, or chew. Take with food if GI upset occurs. folic acid (FOLVITE) tablet 1 mg 1 mg, Oral, Daily, First dose on Tue08/27/25 at 0900 Given 08/28/2025 9:02 AM EST 1 mg Given 08/27/2025 8:39 AM EST 1 mg gabapentin (NEURONTIN) capsule 300 mg 300 mg, Oral, Every 12 Hours Scheduled, First dose (after last modification) on 08/26/25 at 2100, Do not crush or chew the capsules. [...] tube before and after administration (SHIRA) Given 08/28/2025 9:02 AM EST 300 mg Given 08/27/2025 8:28 PM EST 300 mg Given 08/27/2025 8:39 AM EST 300 mg gabapentin (NEURONTIN) capsule 600 mg 600 mg, Oral, 2 Times Daily With Meals, First dose on Tue08/23/25 at 1800, Do not crush or chew the capsules. [...] tube before and after administration (SHIRA) Given 08/25/2025 8:39 AM EST 600 mg Given 08/24/2025 6:15 PM EST 600 mg Given 08/24/2025 8:00 AM EST 600 mg gabapentin (NEURONTIN) capsule 600 mg 600 mg, Oral, Every 8 Hours Scheduled, First dose (after last modification) on Tue08/25/25 at 1400, Do not crush or chew the capsules. [...] tube before and after administration (SHIRA) Given 08/26/2025 5:17 AM EST 600 mg Given 08/25/2025 3:22 PM EST 600 mg HYDROcodone-acetaminophen (NORCO) 10-325 MG per tablet 1 tablet 1 tablet, Oral, Every 6 Hours PRN, Moderate Pain, Starting on 08/23/25 at 1540, Based on patient request - if ordered [...] Pain Score of 7-10, CPOT 5-8 Given 08/24/2025 6:15 PM EST 1 tablet Given 08/24/2025 4:54 AM EST 1 tablet Given 08/23/2025 8:10 PM EST 1 tablet HYDROcodone-acetaminophen (NORCO) 10-325 MG per tablet 1 tablet 1 tablet, Oral, Every 4 Hours PRN, Moderate Pain, Severe Pain, Starting on Tue08/25/25 at 0738, Based on patient request - if ordered [...] Pain Score of 7-10, CPOT 5-8 Given 08/25/2025 1:08 PM EST 1 tablet Given 08/25/2025 8:39 AM EST 1 tablet HYDROcodone-acetaminophen (NORCO) 5-325 MG per tablet 1 tablet 1 tablet, Oral, Every 4 Hours PRN, Moderate Pain, Severe Pain, Starting on Tue08/26/25 at 0939, For 5 days, Based on patient request [...] Score of 7-10, CPOT 5-8 HYDROmorphone (DILAUDID) 1 MG/ML injection - ADS Override Pull Starting on Tue08/23/25 at 1207, For 1 dose, Created by cabinet override (SHIRA) Caution: Look alike/sound alike drug alert If given for pain, use the following pain scale: Mild Pain = Pain Score of 1-3, CPOT 1-2 Moderate Pain = Pain Score of 4-6, CPOT 3-4 Severe Pain = Pain Score of 7-10, CPOT 5-8 HYDROmorphone (DILAUDID) injection 0.25 mg 0.25 mg, Intravenous, Every 3 Hours PRN, Severe Pain, Starting on Tue08/24/25 at 0914, For 48 hours, If given for pain, use the following pain scale: Mild Pain = Pain Score of 1-3, CPOT 1-2 Moderate Pain = Pain Score of 4-6, CPOT 3-4 Severe Pain = Pain Score of 7-10, CPOT 5-8 Given 08/24/2025 10:04 AM EST 0.25 mg HYDROmorphone (DILAUDID) injection 0.5 mg 0.5 mg, Intravenous, Every 15 Minutes PRN, Severe Pain, Starting on Tue08/23/25 at 1143, For 4 doses, Max of 2 mg (40 MME) PACU only. If given for pain, use the following pain scale: Mild Pain = Pain Score of 1-3, CPOT 1-2 Moderate Pain = Pain Score of 4-6, CPOT 3-4 Severe Pain = Pain Score of 7-10, CPOT 5-8 Given 08/23/2025 1:43 PM EST 0.5 mg Given 08/23/2025 12:29 PM EST 0.5 mg Given 08/23/2025 12:05 PM EST 0.5 mg Insulin Lispro (humaLOG) injection 2-7 Units 2-7 Units, Subcutaneous, 4 Times Daily Before Meals & Nightly, First dose on Tue08/23/25 at 2100, Correction Insulin - Low Dose - Total [...] mg/dL - 7 units & Call Provider ([facility]) Caution: Look alike/sound alike drug alert([facility]) Given 08/26/2025 5:56 PM EST 3 Units Left Lower Abdomen Given 08/25/2025 8:10 PM EST 2 Units Le ft Lower Abdomen Given 08/24/2025 8:44 PM EST 2 Units Le ft Lower Abdomen lactated ringers infusion 9 mL/hr, Intravenous, Once, On Tue08/23/25 at 0930, For 1 dose New Bag 08/23/2025 10:17 AM EST 9 mL/hr 9 mL/hr Magnesium Low Dose Replacement - Follow Nurse / BPA Driven Protocol Open Order & Select S Electrolyte Replacement Protocol Algorithm to View Details magnesium sulfate in D5W 1g/100mL (PREMIX) 1 g, Intravenous, Administer over 1 Hours, Every 1 Hour, First dose on Tue08/25/25 at 1400, For 3 doses New Bag 08/25/2025 5:01 PM EST 1 g New Bag 08/25/2025 4:10 PM EST 1 g New Bag 08/25/2025 3:22 PM EST 1 g memantine (NAMENDA) tablet 5 mg 5 mg, Oral, Daily, First dose on Tue08/28/25 at 1000 Given 08/28/2025 9:49 AM EST 5 mg Phosphorus Replacement - Follow Nurse / BPA Driven Protocol Open Order & Select S Electrolyte Replacement Protocol Algorithm to View Details polyethylene glycol (MIRALAX) packet 17 g 17 g, Oral, Daily PRN, Constipation, Use if senna-docusate is ineffective, Starting on Tue08/28/25 at 0729, Use if no bowel movement after 12 hours. Mix in 6-8 ounces of water. Use 4-8 ounces of water, tea, or juice for each 17 gram dose. potassium chloride (KLOR-CON M20) CR tablet 40 mEq 40 mEq, Oral, Every 4 Hours, First dose on Tue08/26/25 at 1015, For 2 doses, Do not crush or chew the capsules or tablets. The drug may not work as designed if the capsule or tablet is crushed or chewed. Swallow whole. Take with food. Given 08/26/2025 2:30 PM EST 40 mEq Given 08/26/2025 11:07 AM EST 40 mEq Potassium Replacement - Follow Nurse / BPA Driven Protocol Open Order & Select [facility] Electrolyte Replacement Protocol Algorithm to View Details pravastatin (PRAVACHOL) tablet 40 mg 40 mg, Oral, Nightly, First dose on Tue08/23/25 at 2100, Avoid grapefruit juice. Given 08/27/2025 8:28 PM EST 40 mg Given 08/26/2025 9:04 PM EST 40 mg Given 08/25/2025 8:10 PM EST 40 mg QUEtiapine (SEROquel) tablet 12.5 mg 12.5 mg, Oral, Nightly, First dose (after last modification) on Tue08/25/25 at 2100, HOLD IF PATIENT ALREADY SLEEPING Caution: Look alike/sound alike drug alert Given 08/27/2025 8:28 PM EST 12.5 mg Given 08/26/2025 9:04 PM EST 12.5 mg Given 08/25/2025 8:10 PM EST 12.5 mg ropivacaine (NAROPIN) 0.2 % infusion (INFUSYSTEM) Peripheral Nerve, Continuous, Starting on Tue08/23/25 at 0959, If pain greater than 7 out of 10, please notify the [employer] Bi Consultant Provider at [phone](messages go to beeper service). Thank you If Pt. Has a Hip Fx block(Fascia Iliacus), please remove Block Catheter prior to Discharge, Basal Rate: 1 mL/hr, Programmed Intermittent Bolus (PIB): 5 mL, PIB Lockout Interval: 120 min, DENTAL PRACTITIONER Bolus: 5 mL, DENTAL PRACTITIONER Lockout Interval: 30 min New Bag 08/23/2025 11:58 AM EST 1,000 mg sennosides-docusate (PERICOLACE) 8.6-50 MG per tablet 2 tablet 2 tablet, Oral, 2 Times Daily, First dose on Tue08/23/25 at 2100, HOLD MEDICATION IF PATIENT HAS HAD BOWEL MOVEMENT. Start bowel management regimen if patient has not had a bowel movement after 12 hours. Given 08/25/2025 8:39 AM EST 2 tablets Given 08/24/2025 8:44 PM EST 2 tablets Given 08/24/2025 8:00 AM EST 2 tablets sennosides-docusate (PERICOLACE) 8.6-50 MG per tablet 2 tablet 2 tablet, Oral, 2 Times Daily PRN, Constipation, Starting on Tue08/28/25 at 0730, HOLD MEDICATION IF PATIENT HAS HAD BOWEL MOVEMENT. Start bowel management regimen if patient has not had a bowel movement after 12 hours. sodium chloride 0.9 % infusion 125 mL/hr, Intravenous, Continuous, Starting on Tue08/26/25 at 1030, For 8 hours New Bag 08/26/2025 11:10 AM EST 125 mL/hr 125 mL/hr tamsulosin (FLOMAX) 24 hr capsule 0.4 mg 0.4 mg, Oral, Daily, First dose on Tue08/24/25 at 0900, Do not crush or chew the capsules or tablets. The drug may not work as designed if the capsule or tablet is crushed or chewed. Swallow whole. If patient unable to swallow whole, contact pharmacy for alternative. Given 08/28/2025 9:02 AM EST 0.4 mg Given 08/27/2025 8:39 AM EST 0.4 mg Given 08/26/2025 11:07 AM EST 0.4 mg vancomycin 750 mg in sodium chloride 0.9 % 250 mL IVPB-VTB 750 mg (rounded from 675 mg = 15 mg/kg 45 kg), Intravenous, at 333.3 mL/hr, Administer over 45 Minutes, Once, On Tue08/23/25 at 1030, For 1 dose, Indications: Surgical ProphylaxisIndications:Surgical Prophylaxis New Bag 08/23/2025 10:36 AM EST 750 mg 333.3 mL/hr documented in this encounter Active and Recently Administered Medications Times are shown in EST. Scheduled Medication Order 08/26/2025 08/27/2025 08/28/2025 apixaban (ELIQUIS) tablet 2.5 mg 2.5 mg, Oral, Every 12 Hours Scheduled, First dose on Tue08/26/25 at 2100, Tablet may be crushed and suspended in 60 mL of water or D5W and immediately delivered via NG tube. Avoid grapefruit juice., Indications: Atrial Fibrillation - requiring full anticoagulation 2102 (Given - Provider: Ha Toney III, RN) 838 (Given - Provider: Natalie Martin RN)2027 (Given - Provider: Ha Toney III, RN) 0902 (Given - Provider: Niesha Kwok, BRAVO) budesonide-formoterol (SYMBICORT) 160-4.5 MCG/ACT inhaler 2 puff 2 puff, Inhalation, 2 Times Daily - RT, First dose on Tue08/23/25 at 2130, Include Respiratory Treatment Education (SP) Shake well. Rinse mouth after use, do not swallow water. Send aerosols to pharmacy in ziplock bag for proper disposal. 1044 (Given - Provider: William Burnett, MEMS ENGINEER)1999 (Given - Provider: Raj Jensen MEMS ENGINEER)2129 (Canceled Entry - Provider: Raj Jensen MEMS ENGINEER) 1032 (Given - Provider: William Burnett MEMS ENGINEER)192 (Given - Provider: Pako Childers RRT)213 (Canceled Entry - Provider: Pako Childers RRT) 0821 (Given - Provider: Beau Freire RRT)0930 (Canceled Entry - Provider: Beau Freire RRT) carvedilol (COREG) tablet 3.125 mg 3.125 mg, Oral, 2 Times Daily With Meals, First dose (after last modification) on Tue08/27/25 at 1800, Hold for SBP less than 100, DBP less than 60, or heart rate less than 50. If a dose is held, please contact the provider. Give with food., On hold since Tue08/28/2025 at 0901 until manually unheld 1734 (Given - Provider: Natalie Martin RN) 0901 (Held by provider - Provider: Magali Jeffery PA-C - Reason: Abnormal Vitals)1008 (Not Given - Provider: Niesha Kwok, BRAVO - Reason: Provider Held)1652 (Unheld by provider - Provider: Automatic Discharge Provider) carvedilol (COREG) tablet 6.25 mg (CANCELED) 6.25 mg, Oral, 2 Times Daily With Meals, First dose on Tue08/23/25 at 1800, Hold for SBP less than 100, DBP less than 60, or heart rate less than 50. If a dose is held, please contact the provider. Give with food. 1107 (Not Given - Provider: Edita Castillo RN - Reason: Order parameters not met)1757 (Given - Provider: Edita Castillo, BRAVO) 0838 (Not Given - Provider: Natalie Martin, BRAVO - Reason: See Provider Order) clopidogrel (PLAVIX) tablet 75 mg 75 mg, Oral, Daily, First dose on 08/24/25 at 0900 1107 (Given - Provider: Edita Castillo RN) 0838 (Given - Provider: Natalie Martin, BRAVO) 0902 (Given - Provider: Niesha Kwok, BRAVO) digoxin (LANOXIN) tablet 125 mcg 125 mcg, Oral, Daily Digoxin, First dose on 08/24/25 at 1200, Check and record heart rate. 1234 (Given - Provider: Edita Castillo RN) 1207 (Given - Provider: Natalie Martin RN) 1147 (Given - Provider: Niesha Kwok, BRAVO) ferric gluconate (FERRLECIT)125 MG in sodium chloride 0.9 % 100 mL IVPB 125 mg, Intravenous, at 100 mL/hr, Administer over 60 Minutes, Daily, First dose on Tue08/25/25 at 1615, For 5 doses, Not to exceed 2.1 mg/min, Please Select Indication for Intravenous Iron Therapy (Criteria can be seen in report to the left): Absolute Iron Deficiency 1107 (New Bag - Provider: Edita Castillo RN) 0838 (New Bag - Provider: Natalie Martin, BRAVO) 0904 (New Bag - Provider: Niesha Kwok, BRAVO) ferrous sulfate tablet 325 mg 325 mg, Oral, Every Other Day, First dose on Tue08/29/25 at 0900, Swallow whole. Do not crush, split, or chew. Take with food if GI upset occurs. folic acid (FOLVITE) tablet 1 mg 1 mg, Oral, Daily, First dose on Tue08/27/25 at 0900 0839 (Given - Provider: Natalie Martin RN) 0902 (Given - Provider: Niesha Kwok, BRAVO) gabapentin (NEURONTIN) capsule 300 mg 300 mg, Oral, Every 12 Hours Scheduled, First dose (after last modification) on Tue08/26/25 at 2100, Do not crush or chew the capsules. [...] Flush tube before and after administration (SHIRA) 2102 (Given - Provider: Ha Toney III, RN) 0839 (Given - Provider: Natalie Martin RN)2027 (Given - Provider: Ha Toney III, BRAVO) 09 (Given - Provider: Niesha Kwok RN) gabapentin (NEURONTIN) capsule 600 mg (CANCELED) 600 mg, Oral, Every 8 Hours Scheduled, First dose (after last modification) on Tue08/25/25 at 1400, Do not crush or chew the capsules. [...] Flush tube before and after administration (SHIRA) 0517 (Given - Provider: Ha Toney III, RN) Insulin Lispro (humaLOG) injection 2-7 Units 2-7 Units, Subcutaneous, 4 Times Daily Before Meals & Nightly, First dose on Tue08/23/25 at 2100, Correction Insulin - Low Dose - Total [...] mg/dL - 7 units & Call Provider ([facility]) Caution: Look alike/sound alike drug alert([facility]) 0732 (Not Given - Provider: Natalie Martin RN - Reason: Order parameters not met)1143 (Not Given - Provider: Edita Castillo RN - Reason: Order parameters not met)1756 (Given - Provider: Edita Castillo RN)2115 (Not Given - Provider: Ha Toney III, RN - Reason: Order parameters not met) 0706 (Not Given - Provider: Natalie Martin RN - Reason: Order parameters not met)1140 (Not Given - Provider: Natalie Martin RN - Reason: Order parameters not met)1706 (Not Given - Provider: Natalie Martin RN - Reason: Order parameters not met)202 (Not Given - Provider: Ha Toney III, RN - Reason: Order parameters not met) 1008 (Not Given - Provider: Niesha Kwok RN - Reason: Order parameters not met)1328 (Not Given - Provider: Niesha Kwok RN - Reason: Order parameters not met) memantine (NAMENDA) tablet 5 mg 5 mg, Oral, Daily, First dose on Tue08/28/25 at 1000 0949 (Given - Provider: Niesha Kwok RN) potassium chloride (KLOR-CON M20) CR tablet 40 mEq (COMPLETED) 40 mEq, Oral, Every 4 Hours, First dose on Tue08/26/25 at 1015, For 2 doses, Do not crush or chew the capsules or tablets. The drug may not work as designed if the capsule or tablet is crushed or chewed. Swallow whole. Take with food. 1107 (Given - Provider: Edita Castillo RN)1430 (Given - Provider: Edita Castillo RN) pravastatin (PRAVACHOL) tablet 40 mg 40 mg, Oral, Nightly, First dose on Tue08/23/25 at 2100, Avoid grapefruit juice. 2103 (Given - Provider: Ha Toney III, RN) 2027 (Given - Provider: Ha Toney III, RN) QUEtiapine (SEROquel) tablet 12.5 mg 12.5 mg, Oral, Nightly, First dose (after last modification) on Tue08/25/25 at 2100, HOLD IF PATIENT ALREADY SLEEPING Caution: Look alike/sound alike drug alert 2103 (Given - Provider: Ha Toney III, RN) 2027 (Given - Provider: Ha Toney III, BRAVO) tamsulosin (FLOMAX) 24 hr capsule 0.4 mg 0.4 mg, Oral, Daily, First dose on 08/24/25 at 0900, Do not crush or chew the capsules or tablets. The drug may not work as designed if the capsule or tablet is crushed or chewed. Swallow whole. If patient unable to swallow whole, contact pharmacy for alternative. 1107 (Given - Provider: Edita Castillo, BRAVO) 0839 (Given - Provider: Natalie Martin, BRAVO) 0902 (Given - Provider: Niesha Kwok RN) Continuous Medication Order 08/26/2025 08/27/2025 08/28/2025 ropivacaine (NAROPIN) 0.2 % infusion (INFUSYSTEM) Peripheral Nerve, Continuous, Starting on Tue08/23/25 at 0959, If pain greater than 7 out of 10, please notify the [employer] Consult[employer] Provider at [phone](messages go to [employer] service). Thank you If Pt. Has a Hip Fx block(Fascia Iliacus), please remove Block Catheter prior to Discharge, Basal Rate: 1 mL/hr, Programmed Intermittent Bolus (PIB): 5 mL, PIB Lockout Interval: 120 min, DENTAL PRACTITIONER Bolus: 5 mL, DENTAL PRACTITIONER Lockout Interval: 30 min 1652 (Due: Order End ing - Provider: Automatic Discharge Provider - Comment: [Order ends at this time. Document the following action when infusion is complete: Stopped]) sodium chloride 0.9 % infusion () 125 mL/hr, Intravenous, Continuous, Starting on 08/26/25 at 1030, For 8 hours 1110 (New Bag - Provider: Edita Castillo, BRAVO)1909 (Due: Order Ending - Provider: Edita Castillo, BRAVO - Comment: [Order ends at this time. Document the following action when infusion is complete: Stopped]) PRN Medication Order 08/26/2025 08/27/2025 08/28/2025 acetaminophen (TYLENOL) suppository 650 mg(Linked Group 1) 650 mg, Rectal, Every 4 Hours PRN, Mild Pain, Fever, temperature greater than 100.4 F, Starting on 08/24/25 at 0915, If given for fever, use fever parameter: [...] 7-10, CPOT 5-8 acetaminophen (TYLENOL) tablet 650 mg(Linked Group 1) 650 mg, Oral, Every 6 Hours PRN, Mild Pain, Headache, Fever, Moderate Pain, fever greater than 100.4 F, Starting on 08/24/25 at 0915, If given for fever, use fever parameter: [...] = Pain Score of 7-10, CPOT 5-8 albuterol (PROVENTIL) nebulizer solution 0.083% 2.5 mg/3mL 2.5 mg, Nebulization, Every 6 Hours PRN, Shortness of Air, Wheezing, Starting on 08/24/25 at 0944, Include Respiratory Treatment Education bisacodyl (DULCOLAX) EC tablet 5 mg(Linked Group 2) 5 mg, Oral, Daily PRN, Constipation, Use if polyethylene glycol is ineffective, Starting on 08/28/25 at 0729, Use if no bowel movement after 12 hours. Swallow whole. Do not crush, split, or chew tablet. bisacodyl (DULCOLAX) suppository 10 mg(Linked Group 2) 10 mg, Rectal, Daily PRN, Constipation, Use if bisacodyl oral is ineffective, Starting on 08/28/25 at 0729, Use if no bowel movement after 12 hours. Hold for diarrhea Calcium Replacement - Follow Nurse / BPA Driven Protocol Open Order & [facility] Electrolyte Replacement Protocol Algorithm to View Details dextrose (D50W) (25 g/50 mL) IV injection 25 g 25 g, Intravenous, Every 15 Minutes PRN, Low Blood Sugar, Blood Sugar Less Than 70, Starting on Tue08/23/25 at 1814, Blood sugar less than 70; patient has IV access - Unresponsive, NPO or Unable To Safely Swallow dextrose (GLUTOSE) oral gel 15 g 15 g, Oral, Every 15 Minutes PRN, Low Blood Sugar, Blood sugar less than 70, Starting on Tue08/23/25 at 1814, BS<70, Patient Alert, Is not NPO, Can safely swallow. glucagon (GLUCAGEN) injection 1 mg 1 mg, Intramuscular, Every 15 Minutes PRN, Low Blood Sugar, Blood Glucose Less Than 70, Starting on Tue08/23/25 at 1814, Blood Glucose Less Than 70 - Patient Without IV Access - Unresponsive, NPO or Unable To Safely Swallow Reconstitute powder for injection by adding 1 mL of die maintenance-supplied sterile diluent or sterile water for injection to a vial containing 1 mg of the drug, to provide solutions containing 1 mg/mL. Shake vial gently to dissolve. HYDROcodone-acetaminophen (NORCO) 5-325 MG per tablet 1 tablet 1 tablet, Oral, Every 4 Hours PRN, Moderate Pain, Severe Pain, Starting on Tue08/26/25 at 0939, For 5 days, Based on patient request [...] = Pain Score of 7-10, CPOT 5-8 Magnesium Low Dose Replacement - Follow Nurse / BPA Driven Protocol Open Order & [facility] Electrolyte Replacement Protocol Algorithm to View Details nitroglycerin (NITROSTAT) SL tablet 0.4 mg 0.4 mg, Sublingual, Every 5 Minutes PRN, Chest Pain, Starting on Tue08/23/25 at 1540, Notify Provider if Pain Unrelieved After 3 Doses May administer up to 3 doses per episode. Hold if SBP less than 100. Phosphorus Replacement - Follow Nurse / BPA Driven Protocol Open Order & [facility] Electrolyte Replacement Protocol Algorithm to View Details polyethylene glycol (MIRALAX) packet 17 g(Linked Group 2) 17 g, Oral, Daily PRN, Constipation, Use if senna-docusate is ineffective, Starting on Tue08/28/25 at 0729, Use if no bowel movement after 12 hours. Mix in 6-8 ounces of water. Use 4-8 ounces of water, tea, or juice for each 17 gram dose. Potassium Replacement - Follow Nurse / BPA Driven Protocol Open Order & [facility] Electrolyte Replacement Protocol Algorithm to View Details sennosides-docusate (PERICOLACE) 8.6-50 MG per tablet 2 tablet(Linked Group 2) 2 tablet, Oral, 2 Times Daily PRN, Constipation, Starting on Tue08/28/25 at 0730, HOLD MEDICATION IF PATIENT HAS HAD BOWEL MOVEMENT. Start bowel management regimen if patient has not had a bowel movement after 12 hours. Linked Groups Order Group 1: acetaminophen (TYLENOL) tablet 650 mgJump to med 650 mg, Oral, Every 6 Hours PRN, Mild Pain, Headache, Fever, Moderate Pain, fever greater than 100.4 F, Starting on 08/24/25 at 0915, If given for fever, use fever parameter: [...] Rectal, Every 4 Hours PRN, Mild Pain, Fever, temperature greater than 100.4 F, Starting on 08/24/25 at 0915, If given for fever, use fever parameter: [...] Pain Score of 7-10, CPOT 5-8 Group 2: sennosides-docusate (PERICOLACE) 8.6-50 MG per tablet 2 tabletJump to med 2 tablet, Oral, 2 Times Daily PRN, Constipation, Starting on Tue08/28/25 at 0730, HOLD MEDICATION IF PATIENT HAS HAD BOWEL MOVEMENT. Start bowel management regimen if patient has not had a bowel movement after 12 hours. And polyethylene glycol (MIRALAX) packet 17 gJump to med 17 g, Oral, Daily PRN, Constipation, Use if senna-docusate is ineffective, Starting on Tue08/28/25 at 0729, Use if no bowel movement after 12 hours. Mix in 6-8 ounces of water. Use 4-8 ounces of water, tea, or juice for each 17 gram dose. And bisacodyl (DULCOLAX) EC tablet 5 mgJump to med 5 mg, Oral, Daily PRN, Constipation, Use if polyethylene glycol is ineffective, Starting on Tue08/28/25 at 0729, Use if no bowel movement after 12 hours. Swallow whole. Do not crush, split, or chew tablet. And bisacodyl (DULCOLAX) suppository 10 mgJump to med 10 mg, Rectal, Daily PRN, Constipation, Use if bisacodyl oral is ineffective, Starting on Tue08/28/25 at 0729, Use if no bowel movement after 12 hours. 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
--- OUTSIDE RECORDS SUMMARY | 2025-08-23 09:35 | XMS_ITS | Encounter Summary ---
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 Patient unable to answer 08/01/2025 [facility] - Occupational Stress [...] the past 12 months has th e [employer], gas, oil, or water company threatened to [...] Patient unable to answer 08/26/2025 Preferred Language Egyptian 08/26/2025 PHQ-2 Answer Date Recorded Patient Health [...] 08/23/2025 9:26 AM Ana Bernal RN * [place] Suicide Severity Rating Scale (Screener/Recent Self-Report) Question Answer Date of Assessment Author 6. Suicidal Behavior (Lifetime) No 9:26 AM Ana Ta RN documented as of this encounter Plan of Treatment Upcoming Encounters Date Type Department Care Team (Late st Contact Info) Description 09/16/2025 10:30 AM EST Office Visit [facility] [address] [facility] [address] [place] [address] Melissa Briceño APRN [address] [facility] [address] [place] [address] documented as of this encounter Visit Diagnoses Not on filedocumented in this encounter Additional Health Concerns Infection Onset Date Last Indicated Resolved Time MRSA 07/24/2025 07/24/2025 documented as of this encounter Care Teams Moccasin Sewer Relationship Specialty Start Date End Date Alexis Montanez MD [address] [facility] [address] [facility] [address] [place] [address] PCP - General Family Medicine 07/23/25 documented as of this encounter
--- OUTSIDE RECORDS SUMMARY | 2025-08-23 09:57 | XMS_ITS | Encounter Summary ---
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 Patient unable to answer 08/01/2025 [facility] - Occupational [...] living? Patient unable to answer 08/01/2025 [facility] Utilities Answer Date Recorded In the past 12 months has th [employer], gas, oil, or water company threatened to [...] Patient unable to answer 08/22/2025 Preferred Language Icelandic 08/22/2025 PHQ-2 Answer Date Recorded Patient Health [...] 08/23/2025 9:26 AM Ana Bernal RN * [place] Suicide Severity Rating Scale (Screener/Recent Self-Report) Question Answer Date of Assessment Author 6. Suicidal Behavior (Lifetime) No 9:26 AM Ana Ta RN documented as of this encounter Discharge Instructions * Attachments The following attachments cannot be sent through Care Everywhere. * Poor Blood Flow (Peripheral Vascular Disease): What to Know (Icelandic) * Surgery to Remove Part of a Leg (Leg Amputation): What to Expect (Icelandic) * Surgery to Remove Part of a Leg (Leg Amputation): What to Know After (Icelandic) * Wound Care After Stitches Phan or Tape Strips Are Removed: What to Know After (Icelandic) * Iron Capsules or Tablets (Supplement) (Icelandic) * Folic Acid Tablets (Icelandic) * Hydrocodone; Acetaminophen Capsules or Tablets (Icelandic) * Memantine Tablets (Icelandic) * Naloxone Nasal [place] (Icelandic) * Indwelling Urinary Catheter Bag Care Adult (Icelandic) documented in this encounter Medications at Time [...] MG/0.1ML nasal spray Call 911. Don't prime. [place] in 1 nostril for overdose. Repeat in [...] HHC and agreeable to SN/PT/OT services with [facility]. Isolation Precautions: No active isolations START PATIENT REGISTRATION INFORMATION Order Information Order Signing Physician: Rowena Mancera MD Service Ordered RN?: Yes Service Ordered PT?: Yes Service Ordered OT?: Yes Service Ordered ST?: No Service Ordered RUG RENOVATOR?: No Service Ordered BEHAVIORAL PSYCHOLOGIST?: No Following Physician: Alexis Montanez MD Following Physician Overseeing Physician: Alexis Montanez MD (Required for Residents Only) Agreeable to Follow ? Yes Date/Time of Call 08/28/25 11:52 EST, Spoke with: orders in epic, current patient, POC MD is agreeable Care Coordination Same Day SOC?: No Primary Care Physician: Alexis Montanez MD Primary Care Physician Primary Care Physician Address: [address] [place] [address] [address] / [place] [address] Visit Instructions: N/A Service Discharge Location Type: Home Service Facility Name: N/A Service Floor Facility: N/A Service Room No: N/A Demographics Patient Last Name: Sera Patient First Name: Hattie Language/Communication Barrier: none Service Address: [address] [place] [address] Service City: [place] Service State: [place] Service Zip: [address] Service Other Phone Numbers: Telephone Information: Emergency Contact: Extended Emergency Contact Information Primary Emergency Contact: LAKESHA DAVILA Address: [address] [place] [address] Mobile Relation: Daughter Criminal Analyst needed? No Secondary Emergency Contact: ESTELA SATNOS Mobile Relation: Daughter Criminal Analyst needed? No Admission Information Admit Date: 08/23/2025 [...] PACC Summary Discharge Date: Pending Referral Source: [facility] Signed By: Rani Moser RN, 08/28/2025, 11:52 EST Date/Time: 08/28/25 11:52 EST End PACC Note * Trevor De Santiago CRNA - 08/28/2025 8:07 AM EST [facility] Acute pain service Inpatient Progress Note Patient [...] Rock CRNA - 08/27/2025 8:25 AM EST [facility] Acute pain service Inpatient Progress Note Patient Name: Hattie Santos : 1940 [facility] Pain Service Inpatient Progress Note: Analgesia:Good Pain [...] from the original note were not included. [facility] Medicine Services PROGRESS NOTE Patient Name: [...] that she was in a hospital in [place], [place]. She did not know the month [...] ischemia w/ gangrenous toe. She returned to [facility] 08/23/25 for planned LT 1st TMA, 2nd toe amp, and wound debridement. Upon arrival, the decision was made to proceed w/ BKA. 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 Zhao) - Nerve block in place - Decrease Parma to 5mg Q4H PRN and decrease Gabapentin [...] AM-PAC 6 Clicks Score (PT): 11 (08/25/25 9121) CODE STATUS: Code Status and Medical Interventions: CPR (Attempt to Resuscitate); Full Support Ordered at: 08/23/25 7346 Code Status (Patient has no pulse and [...] this documentation and agree. * Virgie Rodriguez GAS APPLIANCE MECHANIC - 08/26/2025 11:19 AM EST Images from [...] elderly white female; resting in bed HEENT: [place] conjunctivae, MMM Lungs: Normal respiratory effort Ext: motor intact; LEFT BKA dressing changed; LLE medial incision/phan Neuro: Follows simple commands Psych: Apropriate mood, baseline memory loss Labs: Lab Results (last 24 hours) Procedure Component Value Units Date/Time Folate [[id number]] (Normal) Collected: 08/26/25802 Specimen: Blood Updated: 08/26/25 122 Folate 6.55 ng/mL Narrative: Results may be falsely increased if patient taking Biotin. Vitamin B12 [[id number]] (Abnormal) Collected: 08/26/25802 Specimen: Blood Updated: 08/26/25 1229 Vitamin B-12 1,062 pg/mL Narrative: Results may be falsely increased if patient taking Biotin. POC Glucose Once [[id number]] (Abnormal) Collected: 08/26/25 1137 Specimen: Blood Updated: 08/26/25 1140 Glucose 142 mg/dL Comment: Serial Number: [id number]: [id number] Magnesium [[id number]] (Normal) Collected: 08/26/25802 Specimen: Blood Updated: 08/26/25 0905 Magnesium 2.0 mg/dL Basic Metabolic Panel [[id number]] (Abnormal) Collected: 08/26/25802 Specimen: Blood Updated: 08/26/2559 Glucose 112 mg/dL BUN 6.6 mg/dL Creatinine [...] not include race as a factor Phosphorus [[id number]] (Normal) Collected: 08/26/25802 Specimen: Blood Updated: 08/26/25858 Phosphorus 2.6 mg/dL CBC (No Diff) [[id number]] (Abnormal) Collected: 08/26/25802 Specimen: Blood Updated: 08/26/2550 WBC 11.81 10*3/mm3 RBC 2.79 10*6/mm3 Hemoglobin 7.7 g/dL Hematocrit 24.5 % MCV 87.8 fL MCH 27.6 pg MCHC 31.4 g/dL RDW 13.2 % RDW-SD 41.9 fl MPV 9.2 fL Platelets 376 10*3/mm3 POC Glucose Once [[id number]] (Normal) Collected: 08/26/25721 Specimen: Blood Updated: 08/26/25724 Glucose 119 mg/dL Comment: Serial Number: [id number]: [id number] POC Glucose Once [[id number]] (Abnormal) Collected: 08/25/251946 Specimen: Blood Updated: 08/25/25 1950 Glucose 199 mg/dL Comment: Serial Number: [id number]: [id number] Efraina Comment 1 Notified Patients RN POC Glucose Once [[id number]] (Abnormal) Collected: 08/25/251626 Specimen: Blood Updated: 08/25/25 1629 Glucose 144 mg/dL Comment: Serial Number: [id number]: [id number] Peripheral Block Roscoe Storm CRNA 08/23/2025 10:51 AM Peripheral Block Patient reassessed immediately prior to procedure Patient location during procedure: pre-op Reason for block: at surgeon's request and post-op pain management Performed by YENIFER/CAA: Roscoe Storm, TOWER DIRECTOR Assisted by: Desiree Hankins RN Preanesthetic Checklist [...] connector and catheter connection. Performed by: Roscoe Storm, TOWER DIRECTOR Assessment - Chronic peripheral vascular disease with left lower extremity critical limb ischemia - recent angioplasty in [place] 06/18/25 - multiple stents from iliac down to popliteal and including FLY RAISER LOCKSTITCH - s/p Left femoral to below-knee popliteal artery bypass with propatent externally ringed graft; Left popliteal endarterectomy; Left great toe amputation on 08/02/25 per [facility] - s/p left below knee amputation; left [...] Roblero CRNA - 08/26/2025 8:41 AM EST [facility] Acute pain service Inpatient Progress Note Patient Name: Hattie Santos : 1940 [facility] Pain Service Inpatient Progress Note: Analgesia:Good Pain [...] Patel MD - 08/25/2025 3:15 PM EST [facility] Acute pain service Inpatient Progress Note Patient Name: Hattie Santos : 1940 Acute Pain Service Inpatient Progress Note: Analgesia:Good Pain Score:4/10 LOC: alert and awake Resp Status: room air Cardiac: VS stable Side Effects:None Catheter Site:clean, dry and dressing intact Cath type: peripheral nerve cath(InfuSystem) Infusion rate: Ext/Pop: Basal: 1ml/hr, PIB: 5ml q 2 h, ADMIN PROG COORD: 5 ml q 30 min Catheter Plan:Catheter to remain Insitu and Continue catheter infusion rate unchanged * Magali Jeffery PA-C - 08/25/2025 2:38 PM EST Images from the original note were not included. [facility] Medicine Services PROGRESS NOTE Patient Name: [...] speech clear Results Reviewed: LAB RESULTS: Lab 08/25/25 0528 08/24/25 0605 08/22/25 0851 WBC 9.69 11.45* 14.03* HEMOGLOBIN 7.5* 8.1* 10.4* HEMATOCRIT 23.6* 26.0* 34.7 PLATELETS 367 407 506* NEUTROS ABS -- 7.83* -- IMMATURE GRANS (ABS) -- 0.07* -- LYMPHS ABS -- 1.95 -- MONOS ABS -- 1.37* -- EOS ABS -- 0.20 -- MCV 87.4 90.3 89.9 PROTIME -- -- 16.3* Lab 08/25/25 0528 08/24/25 0605 08/22/25 0851 SODIUM 134* 137 [...] ischemia w/ gangrenous toe. She returned to [facility] 08/23/25 for planned LT 1st TMA, 2nd toe amp, and wound debridement. Upon arrival, the decision was made to proceed w/ BKA. 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 Zhao) - Nerve block in place - Increase Parma 10mg to Q4H PRN - Increase Gabapentin [...] supplements - Can refer to neurology at [place] for formal cognitive eval if family desires [...] Zhao MD - 08/25/2025 9:54 AM EST [facility] Vascular Surgery Progress Note Patient Name: [...] are in place and dry. Dressing will be changed first of the week. Vascular surgery will continue to follow please do not hesitate to callwith questions or concerns regarding the care of this patient. Junior Pavel MD * Jesús Diaz Jr., MD - 08/24/2025 1:07 PM EST [facility] Acute pain service Inpatient Progress Note Patient Name: Hattie Santos : 1940 Acute Pain Service Inpatient Progress Note: Analgesia:Fair Pain Score:7/10 LOC: alert and awake Resp Status: room air Cardiac: VS stable Side Effects:None Catheter Site:clean, dry and dressing intact Cath type: peripheral nerve cath(InfuSystem) Infusion rate: Ext/Pop: Basal: 1ml/hr, PIB: 5ml q 2 h, ADMIN PROG COORD: 5 ml q 30 min Dosing/Volume: ropivacaine 0.2% Catheter Plan:Catheter to remain Insitu and Continue catheter infusion rate unchanged Comments: Pain is fairly well controlled. Having intermittent 7-8/10 pain. Will continue to follow. * Junior Zhao MD - 08/24/2025 12:17 PM EST [facility] Vascular Surgery Progress Note Patient Name: [...] from the original note were not included. [facility] Medicine Services PROGRESS NOTE Patient Name: [...] Leuk Est Nitrite Protein CREAT Urine HCG 10/08/25 2203 Yellow Cloudy Negative Small (1+) Negative Negative Microbiology Results Abnormal None Peripheral Block Result Date: 08/23/2025 Roscoe Storm CRNA 08/23/2025 10:50 AM Peripheral Block Patient reassessed immediately prior to procedure Patient location during procedure: pre-op Reason for block: at surgeon's request and post-op pain management Performed by TOWER DIRECTOR/CAA: Roscoe Storm, TOWER DIRECTOR Assisted by: Desiree Hankins RN Preanesthetic Checklist Completed: patient identified, IV checked, site marked, risks and benefits discussed, surgical consent, monitors and equipment checked, pre-op evaluation and timeout performed Prep: Sterile barriers:cap, gloves, mask and washed/disinfected hands Prep: ChloraPrep Patient monitoring: blood pressure monitoring, continuous pulse oximetry and EKG Procedure Sedation: yes Performed under:local infiltration Guidance:ultrasound guided ULTRASOUND INTERPRETATION. Using ultrasound [...] chart Laterality:left Block Type:popliteal Injection Technique:catheter Needle T ype:echogenic and Tuohy Needle Gauge:18 G Resistance on [...] transducer was then moved in a cephalad f ashion to observe the TN and CP nerve [...] of 1% Lidocaine. Using ultrasound-guidance, a 20-gauge B-Redi 4 Ultraplex 360 non-stimulating echogenic needle was [...] from the original note were not included. [facility] Medicine Services HISTORY AND PHYSICAL Patient [...] Zhao on 08/02 who initially presented to [facility] for scheduled LLE wound debridement and toe [...] TOE AMPUTATION; Surgeon: Junior Zhao MD; Location: [facility] OR; Service:Vascular; Laterality: Left; FEMORAL POPLITEAL BYPASS Left 08/02/2025 Procedure: FEMORAL POPLITEAL BYPASS; Surgeon: Junior Zhao MD; Location: [facility]; Service: Vascular; Laterality: Left; [...] request and post-op pain management Performed by TOWER DIRECTOR/CAA: Roscoe Sotrm, YENIFER Assisted by: Desiree Hankins RN Preanesthetic [...] with minimal resistance. Performed by: Roscoe Storm, TOWER DIRECTOR Assessment & Plan Assessment & Plan Critical [...] Zhao on 08/02 who initially presented to [facility] for scheduled LLE wound debridement and toe [...] sx -Nerve catheter in place -continue Gabapentin -Parma PRN for pain -Management per vascular surgery [...] Seroquel 12.5 mg BID PRN DVT prophylaxis: [facility] for now CODE STATUS: Code Status (Patient [...] Ocampo APRN - 08/23/2025 10:11 AM EST [facility] Pre-op Full history and physical note from [...] better. Daughter reports that cardiac interventionalist in [place] has been following her, and that she has had multiple revascularizations and stent placements. Daughter r eports that her provider told her that she was running out of options, but that she most likely would not be a candidate for amputation due to her cardiac history. Family reports that she has been following with a credit collections specialist and cad librarian outpatient who remove the top layer of [...] resting in bed; family at bedside HEENT: [place] conjunctivae, MMM Lungs: Normal respiratory effort Ext: motor intact; left great toe ulcer with discoloration/eschar/surrounding erythema; +left femoral pulse; no palpable left pedals Skin: Exposed skin warm Neuro: Follows simple commands Psych: Apropriate mood ?baseline memory loss? Relevant Results: Imaging Results (Last 48 Hours) Procedure Component Value Units Date/Time CT Angiogram Lower Extremity Bilateral [[id number]] Collected: 07/23/25 2345 Updated: 07/24/25 0001 Narrative: [...] MD 07/23/2025 11:58 PM EDT Workstation ID: [id number] CT Lower Extremity Left Without Contrast [[id number]] Collected: 07/23/252000 Updated: 07/23/252009 Narrative: CT LOWER [...] DO 07/23/2025 8:07 PM EDT Workstation ID: [id number] XR Chest 1 View [[id number]] Collected: 07/23/251811 Updated: 07/23/251815 Narrative: XR CHEST [...] MD 07/23/2025 6:13 PM EDT Workstation ID: [id number] XR Foot 3+ View Left [[id number]] Collected: 07/23/251749 Updated: 07/23/251754 Narrative: XR FOOT [...] MD 07/23/2025 5:52 PM EDT Workstation ID: [id number] Lab Results (last 48 hours) Procedure Component Value Units Date/Time POC Glucose Once [[id number]] (Normal) Collected: 07/24/250 Specimen: Blood Updated: 07/24/25 113 Glucose 93 mg/dL Comment: Serial Number: [id number]: [id number] POC Glucose Q6H [[id number]] (Normal) Collected: 07/24/25752 Specimen: Blood Updated: 07/24/25754 Glucose 106 mg/dL Comment: Serial Number: [id number]: [id number] aPTT [[id number]] (Abnormal) Collected: 07/24/25444 Specimen: Blood Updated: 07/24/25616 PTT 59.2 seconds Narrative: PTT = The equivalent PTT values for the therapeutic range of heparin levels at 0.3 to 0.5 U/ml are 60 to 70 seconds. Hemoglobin A1c [[id number]] (Abnormal) Collected: 07/24/25444 Specimen: Blood Updated: 07/24/25544 Hemoglobin A1C 6.03 % Narrative: Hemoglobin A1C Ranges: Increased Risk for Diabetes 5.7% to 6.4% Diabetes >= 6.5% Diabetic Goal < 7.0% Comprehensive Metabolic Panel [[id number]] (Abnormal) Collected: 07/24/25444 Specimen: Blood Updated: 07/24/25524 [...] include race as a factor Digoxin Level [[id number]] (Normal) Collected: 07/24/25444 Specimen: Blood Updated: 07/24/25524 Digoxin 0.62 ng/mL Narrative: Results may be falsely increased if patient taking Biotin. Magnesium [[id number]] (Normal) Collected: 07/24/25444 Specimen: Blood Updated: 07/24/25524 Magnesium 1.7 mg/dL Phosphorus [[id number]] (Normal) Collected: 07/24/25444 Specimen: Blood Updated: 07/24/25524 Phosphorus 3.6 mg/dL Lipid Panel [[id number]] Collected: 07/24/25444 Specimen: Blood Updated: 07/24/25524 Total [...] NIH LDL-C calculation. High Sensitivity Troponin T [[id number]] (Abnormal) Collected: 07/24/25444 Specimen: Blood Updated: 07/24/25524 [...] due to an underlying chronic condition. CK [[id number]] (Normal) Collected: 07/24/25444 Specimen: Blood Updated: 07/24/25524 Creatine Kinase 61 U/L Lactic Acid, Plasma [[id number]] (Normal) Collected: 07/24/25444 Specimen: Blood Updated: 07/24/25516 Lactate 0.6 mmol/L Comment: Falsely depressed results may occur on samples drawn from patients receiving N-Acetylcysteine (NAC) or Metamizole. CBC Auto Differential [[id number]] (Abnormal) Collected: 07/24/25444 Specimen: Blood Updated: 07/24/25453 [...] 10*3/mm3 nRBC 0.0 /100 WBC Heparin Anti-Xa [[id number]] (Abnormal) Collected: 07/23/252199 Specimen: Blood from Arm, Left Updated: 07/23/252303 Heparin Anti-Xa (UFH) >1.10 IU/ml Protime-INR [[id number]] (Abnormal) Collected: 07/23/252199 Specimen: Blood from Arm, Left Updated: 07/23/252231 Protime 17.0 Seconds INR 1.30 aPTT [[id number]] (Abnormal) Collected: 07/23/252199 Specimen: Blood from Arm, Left Updated: 07/23/252231 PTT 38.1 seconds Narrative: PTT = The equivalent PTT values for the therapeutic range of heparin levels at 0.3 to 0.5 U/ml are 60 to 70 seconds. High Sensitivity Troponin T 1Hr [[id number]] (Abnormal) Collected: 07/23/251953 Specimen: Blood Updated: 07/23/252018 [...] condition. Blood Culture - Blood, Arm, Right [[id number]] Collected: 07/23/251734 Specimen: Blood from Arm, Right Updated: 07/23/251943 Blood Culture - Blood, Arm, Left [[id number]] Collected: 07/23/251744 Specimen: Blood from Arm, Left Updated: 07/23/251943 Comprehensive Metabolic Panel [[id number]] (Abnormal) Collected: 07/23/251731 Specimen: Blood Updated: 07/23/251801 [...] as a factor High Sensitivity Troponin T [[id number]] (Abnormal) Collected: 07/23/251731 Specimen: Blood Updated: 07/23/251801 [...] an underlying chronic condition. Lactic Acid, Plasma [[id number]] (Normal) Collected: 07/23/251731 Specimen: Blood Updated: 07/23/25 1800 Lactate 1.2 mmol/L Comment: Falsely depressed results may occur on samples drawn from patients receiving N-Acetylcysteine (NAC) or Metamizole. CBC & Differential [[id number]] (Abnormal) Collected: 07/23/251731 Specimen: Blood Updated: 07/23/25 174 Narrative: The following orders were created for panel order CBC & Differential. Procedure Abnormality Status --------- ------ CBC Auto Differential[[id number]] Abnormal Final result Please view results for these tests on the individual orders. CBC Auto Differential [[id number]] (Abnormal) Collected: 07/23/25 173 Specimen: Blood Updated: 07/23/251743 WBC 12.54 10*3/mm3 [...] critical limb ischemia - recent angioplasty in [place] 06/18/25 - multiple stents from iliac down to popliteal and including FLY RAISER LOCKSTITCH - Diabetes mellitus type 2 with neuropathy [...] this encounter Consult Notes * Su Reece, ,RD,LD - 08/26/2025 10:11 AM ESTAssociated Order(s): IP CONSULT TO NUTRITION SERVICES Patient Name: Hattie Santos Date of : 1940 Admission date: 08/23/2025 Reason for Encounter: MD Consult , MST 2-3 or Nursing Admission Screen, and Pressure Injury Stg 2+ [facility] Clinical Nutrition Assessment Subjective Subjective Information [...] TOE AMPUTATION; Surgeon: Junior Zhao MD; Location: [facility] OR; Service:Vascular; Laterality: Left; FEMORAL POPLITEAL BYPASS Left 08/02/2025 Procedure: FEMORAL POPLITEAL BYPASS; Surgeon: Junior Zhao MD; Location: [facility] OR; Service: Vascular; Laterality: Left; PACEMAKER IMPLANTATION [...] from last 7 days Lab Units 08/26/25 0808/25/25 0508/24/25 0605 SODIUM mmol/L 138 134* 137 POTASSIUM mmol/L 3.3* 3.7 4.3 GLUCOSE mg/dL 112* 107* 81 BUN mg/dL 6.6* 10.1 15.8 CREATININE mg/dL 0.34* 0.33* 0.40* CALCIUM mg/dL 7.8* 7.8* 8.1* PHOSPHORUS mg/dL 2.6 -- -- MAGNESIUM mg/dL 2.0 1.5* -- Results from last 7 days Lab Units 08/26/25 0808/25/25 0508/24/25 0605 PLATELETS 10*3/mm3 376 367 407 HEMOGLOBIN [...] Left Edema: other (see comments) ([place]) (08/25/25 08) Leg, Right Edema: 1+ (Trace) (08/25/251999) Intake [...] Loss Loss of Muscle Mass Findings Severe [place] Severe - deep hollowing/scooping, lack of [...] SNF at discharge. Anticipated Discharge Disposition (OT): fpc facility * Marya Garsia, PT - 08/26/2025 [...] SNF at d/c. Anticipated Discharge Disposition (PT): fpc facility * David Dalton RN - 08/26/2025 [...] toincrease protein intake. Will reach out to registered public health nurse to include Surekha. 2. For right heel [...] Foam Mattress a. Will order alternating pressure lbr-qvo-bpoc specialty bed from [facility] Pressure Injury Prevention Protocol (initiate for a Taz Scale Score of <18): Most recent Taz Scale score: Sensory Perception: 3-->slightly limited Moisture: 4-->rarely moist Activity: 2-->chairfast Mobility: 3-->slightly limited Nutrition: 2-->probably inadequate Friction and Shear: 2-->potential problem Taz Score: 16 (08/25/25 1600) -Apply Allevyn foam dressing to sacrum/coccyx and heels. -Turn q 2 hr. using [place] Flowlock Posiitoner pillow (short dark blue). Elevate heels off bed with [place] Flowlock Positioner pillow (long dark blue) -Apply moisture barrier cream to bottom BID & PRN, if incontinent. Thank you for consulting the WOC Nurse. WOC Team will continue to follow. Please re consult if the wound(s) worsens or new issues arise. David Dalton RN, BSN, CCRN, CWOCN Wound, Ostomy and Continence (WOC) Department [facility] documented in this encounter OR Notes * Op Note - Junior Zhao MD - 08/23/2025 11:11 AM EST PROCEDURE DATE: 08/22/2025 PRE OP DIAGNOSIS: Pre-Op Diagnosis Codes: Left critical limb ischemia POST OP DIAGNOSIS: Post-op Diagnosis Same SURGEON(S) / SPRINKLING SYSTEM INSTALLER SURGEON: Junior Pavel MD PROCEDURES WITH LATERALITY: Left below-knee amputation Left tibial nerve free pedicle transfer Myodesis 33523 ANESTHESIA: General Blood loss: Minimal Specimen: Left [...] they would like to use [facility] in [place] for DME. No other needs verbalized. Called [facility] [phone] who request supporting clinical documentation and order be faxed to them at [phone]. [facility]OLENE [facility]. Patient plan is to discharge home and resume [facility] today via car with family to transport. Selected Continued Care - Admitted Since 08/23/2025 Destination No services have been selected for the patient. Durable Medical Equipment Coordination complete. Service Provider Services Address Phone Fax Patient Preferred [facility] Durable Medical Equipment [address] [id number] -- Dialysis/Infusion No services have been selected for the patient. Home Medical Care Coordination complete. Service Provider Services Address Phone Fax Patient Preferred [facility] Home Rehabilitation [address] [facility] [address] -- Therapy No services have been selected for the patient. Community & DME No services have been selected for the patient. Selected Continued Care - Prior Encounters Includes continued care and service providers with selected services from prior encounters from 05/25/2025 to 08/28/2025 Discharged on 08/07/2025 Admission date: 07/31/2025 - Discharge disposition: Home-Health Care [facility] Service Provider Services Address Phone Fax Patient Preferred [facility] [address] [facility] [address] -- Community Resources No active community resources. Final Discharge Disposition Code: 06 - home with home health care * Case Management/Social Work - Rani Pereira RN - 08/26/2025 3:22 PM EST Discharge Planning Assessment [facility] Patient Name: Hattie Santos Today's Date: 08/26/2025 [...] Coordination/Progress ongoing Discharge Plan Row Name 08/26/25 151 Plan Plan ongoing Patient/Family in Agreement with Plan yes Plan Comments Spoke with patient and daughter at bedside regarding discharge planning. CM has been contacted by [facility] who reports patient is current with them. [...] - home or self-care Row Name 08/26/25 1459 Plan Plan update Patient/Family in Agreement with Plan yes Plan Comments Spoke with patient and daughter at bedside regarding discharge plan and discussed potential for rehab needs. Daughter repoting that they will not want Jovani Gomez for rehab and called her POA, to discuss. PT has arrived at bedside to discuss who has verbalized that if the patient wants to go home then they will take her home. CM will continue to follow. CM following. Patient discharge plan is ongoing. Final Discharge Disposition Code 03 - fpc facility (SNF) Continued Care and Services - Admitted Since 08/23/2025 No active coordination exists. Selected Continued Care - Prior Encounters Includes continued care and service providers with selected services from prior encounters from 05/25/2025 to 08/26/2025 Discharged on 08/07/2025 Admission date: 07/31/2025 - Discharge disposition: Home-Health Care [facility] Service Provider Services Address Phone Fax Patient Preferred [facility] [address] [place] [address] [phone] -- Expected Discharge Date and Time Expected Discharge Date Expected Discharge Time Aug 30, 2025 Demographic Summary Row Name 08/26/25 1514 General Information Admission Type inpatient Arrived From home Referral Source admission list Reason for Consult discharge planning Preferred Language Icelandic General Information Comments Alexis Montanez MD Contact Information Permission Granted to Share Info With outpatient case manageraudience development manager Information Comments Lakesha Davila, daughter [phone] Estela Santos, daughter [phone] Afua Melton, Grandchild/POA [phone] Functional Status Row Name 08/26/25 1515 Employment/ Employment/ Comments [employer] Medicare Replacement Psychosocial No documentation. Abuse/Neglect No documentation. Legal No documentation. Substance Abuse No documentation. Patient Forms No documentation. Rani Pereira RN * Therapy Evaluation - Marya Bailey, OT - 08/26/2025 2:57 PM EST Images [...] 1547 General Information Patient Profile Reviewed yes -LC Prior Level of Function -- Family providing / assist. Completing pivots to W/C -LC Existing Precautions/Restrictions fall;left;non-weight bearing;orthostatic hypotension L BKA. nervecatheter, pepe - Barriers to Rehab medically complex;previous functional deficit;cognitive status - Row Name 08/26/25 7308 Living Environment Current Living Arrangements home -LC People in Home child(dustin), adult - Row Name 08/26/25 1545 Home Main Entrance Number of Stairs, Main Entrance other (see comments) Ramp - Row Name 08/26/25 1545 Stairs Within Home, Primary Number of Stairs, Within Home, Primary none - Row Name 08/26/25 1545 Cognition Orientation Status (Cognition) oriented to;person;place - Row Name 08/26/25 1545 Safety Issues/Impairments Affecting Functional Mobility Safety Issues [...] Bed Mobility Bed Mobility scooting/bridging;supine-sit - Scooting/Bridging Ellsworth (Bed Mobility) verbal cues;minimum assist (75% patient effort);2 person assist - Supine-Sit Ellsworth (Bed Mobility) minimum assist (75% patient effort);verbal [...] Row Name 08/26/25 1549 Bed-Chair Transfer Bed-Chair Ellsworth (Transfers) 2 person assist;verbal cues;dependent (less than 25% patient effort) - Assistive Device (Bed-Chair Transfers) other (see comments) B UE support -LC Row Name 08/26/25 1549 Sit-Stand Transfer Sit-Stand [place]sworth (Transfers) dependent (less than 25% patient effort);2 person assist;verbal cues - Assistive Device (Sit-Stand Transfers) other (see comments) B UE support -[facility] Name 08/26/25 1549 Activities of Daily Living BADL Assessment/Intervention bathing;upper body dressing;lower body dressing -[facility] Name 08/26/25 1549 Mobility Extremity Weight-bearing Status left lower extremity - Left Lower Extremity (Weight-bearing Status) non weight-bearing (NWB) -[facility] Name 08/26/25 1549 Bathing Assessment/Intervention Ellsworth Level (Bathing) lower body;perineal area;dependent (less than 25% patient effort) - Position (Bathing) supine;supported standing - Comment, (Bathing) Required clean up secondary to incontinence -[facility] Name 08/26/25 1549 Upper Body Dressing Assessment/Training Ellsworth Level (Upper Body Dressing) don;doff;front opening garment;maximum assist (25% patienteffort) - Position (Upper Body Dressing) supported sitting -[facility] Name 08/26/25 1549 Lower Body Dressing Assessment/Training [place] Level (Lower Body Dressing) don;socks;dependent (less than 25% patient effort) - Position (Lower Body Dressing) sitting up in bed - User Amor (r) = Recorded By, (t) = Taken By, (c) = Cosigned By Initials Name Provider Type Marya Bailey OT Occupational Therapist Obj/Interventions Row Name 08/26/25 1557 Sensory Assessment (Somatosensory) Sensory Assessment (Somatosensory) UE sensation intact -[facility] Name 08/26/25 1551 Vision Assessment/Intervention Visual Impairment/Limitations WFL -[facility] Name 08/26/25 155 Range of Motion Comprehensive General Range of Motion bilateral upper extremity ROM WFL -[facility] Name 08/26/25 1559 Strength Comprehensive (MMT) General Manual Muscle Testing (MMT) Assessment upper extremity strength deficits identified - Comment, General Manual Muscle Testing (MMT) Assessment B UE grossly 4/5 -[facility] Name 08/26/25 1555 Balance Balance Assessment sitting static balance;sitting dynamic balance;standing static balance;standing dynamic balance - Static Sitting Balance contact guard - Dynamic Sitting Balance contact guard - Position, Sitting Balance unsupported;sitting edge of bed;supported - Static Standing Balance dependent;2-person assist -LC Dynamic Standing Balance dependent;2-person assist -LC Position/Device Used, Standing Balance supported;other (see comments) B UE support - Balance Interventions sitting;standing;sit to stand;supported;weight shifting activity - User Amor (r) = Recorded By, (t) = Taken By, (c) = Cosigned By Initials Name Provider Type Marya Bailey, OT Occupational Therapist Goals/Plan Row Name 08/26/25 1558 Transfer Goal 1 (OT) Activity/Assistive Device (Transfer Goal 1, OT) kua-nh-wjtgh/gglvf-zy-buk;igo-ti-gzxbf/iknrt-mj-akr;walker, rolling - [place]sworth Level/Cues Needed (Transfer Goal 1, OT) maximum assist (25-49% patient effort) - Time Frame (Transfer Goal 1, OT) usp goal (LTG);10 days - Progress/Outcome (Transfer Goal 1, OT) goal ongoing - Row Name 08/26/25 1558 Dressing Goal 1 (OT) Activity/Device (Dressing Goal 1, OT) upper body dressing - [place]/Cues Needed (Dressing Goal 1, OT) moderate assist (50-74% patient effort) - Time Frame (Dressing Goal 1, OT) short term goal (STG);5 days - Progress/Outcome (Dressing Goal 1, OT) goal ongoing - Row Name 08/26/25 1558 Toileting Goal 1 (OT) Activity/Device (Toileting Goal 1, OT) adjust/manage clothing;perform perineal hygiene;commode, bedside without drop arms - [place] Level/Cues Needed (Toileting Goal 1, OT) maximum assist (25-49% patient effort) - Time Frame (Toileting Goal 1, OT) long term care administrator goal (LTG);10 days - Progress/Outcome (Toileting Goal 1, OT) goal ongoing - Row Name 08/26/25 1550 Therapy Assessment/Plan (OT) Planned Therapy Interventions (OT) activity tolerance training;adaptive equipment training;BADL retraining;functional balance retraining;occupation/activity based interventions;patient/caregiver educa tion/training;strengthening exercise;transfer/mobility retraining;ROM/therapeutic exercise - User Amor (r) = Recorded By, (t) = Taken By, (c) = Cosigned By Initials Name Provider Type Marya Silva OT Occupational Therapist Clinical Impression Row Name 08/26/25 155 Pain Assessment Pretreatment Pain Rating 0/10 - no pain - Posttreatment Pain Rating 0/10 - no pain - Row Name 08/26/25 155 Plan of Care Review Plan of Care Reviewed With patient;family - Progress no change - Outcome Evaluation Pt. presents below baseline with ADLs and functional mobility. Limited by decraesed activity tolerance, balance, generalized weakness, and motor planning. Skilled OT services warranted to promote return to PLOF. Recommend SNF at discharge. - Row Name 08/26/251555 Therapy Assessment/Plan (OT) Patient/Family Therapy Goal Statement (OT) To take care of self -LC Therapy Frequency (OT) daily - Predicted Duration of Therapy Intervention (OT) 10 days - Row Name 08/26/251555 Therapy Plan Review/Discharge Plan (OT) Anticipated Discharge Disposition (OT) fpc facility - Row Name 08/26/25 155 Vital Signs Pre Systolic BP Rehab 124 -LC Pre Treatment Diastolic BP 67 -LC Intra Systolic BP Rehab 101 -LC Intra Treatment Diastolic BP 58 -LC Post Systolic BP Rehab 91 136/62 once reclined - Post Treatment Diastolic BP 59 -LC Pre Patient Position Supine -LC Intra Patient Position Sitting -LC Post Patient Position Sitting - Row Name 08/26/251555 Positioning and Restraints Pre-Treatment Position in bed - Post Treatment Position chair -LC In Chair notified nsg;reclined;call light within reach;encouraged to call for assist;exit alarm on;with family/caregiver;legs elevated;LLE elevated Special Coccyx pillow per family request - User Amor (r) = Recorded By, (t) = Taken By, (c) = Cosigned By Initials Name Provider Type Marya Silva OT Occupational Therapist Outcome Measures Row Name 08/26/25 4557 How much help from another is currently [...] 08/26/25 1559 Functional Assessment Outcome Measure Options AM-[facility] 6 Clicks Daily Activity (OT) - User Amor (r) = Recorded By, (t) = Taken By, (c) = Cosigned By Initials Name Provider Type Marya Bailey OT Occupational Therapist Edita Castillo RN Registered Nurse Occupational Therapy Education Title: PT OT REBAR FABRICATOR Therapies (In Progress) Topic: Occupational Therapy (In Progress) Point: ADL training (Done) Learning Progress Summary Patient Acceptance, E, VU,NR by at 08/26/20257 Point: Precautions (Done) Learning Progress Summary Patient Acceptance, E, VU,NR by at 08/26/2025 1457 Point: Body mechanics (Done) Learning Progress Summary Patient Acceptance, E, VU,NR by at 08/26/2025 1457 User Amor Initials Effective Dates Name Provider Type [facility] 04/01/21 - Marya Bailey, OT Occupational Therapist [...] Description Service Date Service Provider Modifiers Qty [id number] -OT EVAL MOD COMPLEXITY 5 08/26/2025 Marya [...] Bed Mobility Bed Mobility supine-sit -LR Scooting/Bridging [place] (Bed Mobility) verbal cues;minimum assist (75% patient effort);2 person assist -LR Supine-Sit [place] (Bed Mobility) verbal cues;minimum assist (75% patient [...] Attempted sit<- >stand x3 and patient would oyster picker R foot each time. Little to no weight bear ing noted with t/f to chair. -LR Row Name 08/26/25 145 Bed-Chair Transfer Bed-Chair [place] (Transfers) verbal cues;dependent (less than 25% patient effort);2 person assist -LR Assistive Device (Bed-Chair Transfers) other (see comments) B UE support -LR Row Name 08/26/25 145 Sit-Stand Transfer Sit-Stand [place] (Transfers) verbal cues;dependent (less than 25% patient effort);2 person assist -LR Assistive Device (Sit-Stand Transfers) other (see comments) B UE support -LR Row Name 08/26/25 145 Gait/Stairs (Locomotion) Ellsworth Level (Gait) unable to assess -LR Patient was able to Ambulate no, other medical factors prevent ambulation -LR Reason Patient was unable to Ambulate Non-Ambulatory at Baseline d/t NWB status of L LE -LR Ellsworth Level (Stairs) not tested -LR Comment, (Gait/Stairs) See above. -LR Row Name 08/26/251450 Mobility Extremity Weight-bearing Status left lower extremity -LR Left Lower Extremity (Weight-bearing Status) non weight-bearing (NWB) -LR User Amor (r) = Recorded By, (t) = Taken By, (c) = Cosigned By Initials Name Provider Type LR Marya Garsia, NATALIYA Physical Therapist Obj/Interventions Row Name 08/26/25 145 [...] PT) sit to supine/supine to sit -LR Ellsworth Level/Cues Needed (Bed Mobility Goal 1, PT) contact guard required -LR Time Frame (Bed Mobility Goal 1, PT) long term care administrator goal (LTG);3 days -LR Progress/Outcomes (Bed Mobility Goal 1, PT) goal ongoing -LR Row Name 08/26/251450 Transfer Goal 1 (PT) Activity/Assistive Device (Transfer Goal 1, PT) qnf-uo-bfkti/flabt-um-sbu;gyx-ku-xgomz/unack-gl-gga;sliding board;wheelchair transfer -LR [place]sworth Level/Cues Needed (Transfer Goal 1, PT) moderate assist (50-74% patient effort);other (see comments) x2 -LR Time Frame (Transfer Goal 1, PT) usp goal (LTG);5 days -LR Progress/Outcome (Transfer Goal [...] 0/10 - no pain -LR Row Name 08/26/251450 Plan of Care Review Plan of Care [...] Recommend SNF at d/c. -LR Row Name 08/26/251450 Therapy Assessment/Plan (PT) Rehab Potential (PT) fair [...] Physical Therapist Marya Silva, OT Occupational Therapist [place] Edita Castillo, RN Registered Nurse Physical Therapy Education Title: PT OT REBAR FABRICATOR Therapies (In Progress) Topic: Physical Therapy (Done) [...] Description Service Date Service Provider Modifiers Qty [id number] HC-PT EVAL MOD COMPLEXITY 5 08/26/2025 Marya Garsia, PT 1 PT G-Codes Outcome Measure Options: AM-PAC 6 Clicks Daily Activity (OT) AM-PAC 6 Clicks Score (PT): 9 AM-PAC 6 Clicks Score (OT): 12 PT Discharge Summary Anticipated Discharge Disposition (PT): fpc facility Marya Garsia, PT 08/26/2025 documented in this encounter Plan of Treatment Upcoming Encounters Date Type Department Care Team (Late st Contact Info) Description 09/16/2025 10:30 AM EST Office Visit [facility] [address] [place] [address] [place] [address] Melissa Briceño APRN [address] [facility] [address] [place] [address] Scheduled Orders Name Type Priority Associated Diagnoses [...] left lower extremity Toe necrosis Special Needs TOWER DIRECTOR DESIREE POCT GLUCOSE FINGERSTICK Routine 08/23/2025 10:03 AM EST documented in this encounter Results * POC Glucose Once (08/28/2025 11:25 AM EST) Glucose 96 70 - 130 mg/dL 08/28/2025 11:41 AM EST [facility] Comment:Serial Number: [id number]: [id number] Blood 08/28/2025 11:2 5 AM EST 08/28/2025 11:41 AM EST Rowena Mancera MD POINT OF CARE TEST ORDERABLES nal Result [facility]
[address] [place] [address], * (ABNORMAL) CBC (No Diff) (08/28/2025 8:25 AM EST) WBC 10.02 3.40 - 10.80 10*3/mm3 08/28/2025 9:33 AM EST [facility] RBC 2.86(L) 3.77 - 5.28 10*6/mm3 08/28/2025 9:33 AM EST [facility] Hemoglobin 7.8(L) 12.0 - 15.9 g/dL 08/28/2025 9:33 AM EST [facility] Hematocrit 25.5(L) 34.0 - 46.6 % 08/28/2025 9:33 AM EST [facility] MCV 89.2 79.0 - 97.0 fL 08/28/2025 9:33 AM EST [facility] MCH 27.3 26.6 - 33.0 pg 08/28/2025 9:33 AM [facility] MCHC 30.6(L) 31.5 - 35.7 g/dL 08/28/2025 9:33 AM [facility] RDW 13.6 12.3 - 15.4 % 08/28/2025 9:33 AM [facility] RDW-SD 43.8 37.0 - 54.0 fl 08/28/2025 9:33 AM [facility] MPV 9.3 6.0 - 12.0 fL 08/28/2025 9:33 AM [facility] Platelets 418 140 - 450 10*3/mm3 08/28/2025 9:33 AM [facility] Blood Venipuncture / Unknown 08/28/2025 8:25 AM EST 08/28/2025 9:21 AM EST Magali Jeffery PA-C LAB BLOOD ORDERABLES F inal Result [facility]
[address] [place] [address], * (ABNORMAL) POC Glucose Once (08/28/2025 7:21 AM EST) Glucose 146(H) 70 - 130 mg/dL 08/28/2025 7:23 AM EST [facility] Comment:Serial Number: [id number]: [id number] Blood 08/28/2025 7:21 AM EST 08/28/2025 7:23 AM EST Rowena Mancera MD POINT OF CARE TEST ORDERABLES Fi nal Result Performing Organization Address City/[facility]/ZIP Co de Phone Number [facility]
[address] [place] [address], * POC Glucose Once (08/27/2025 7:56 PM EST) Glucose 129 70 - 130 mg/dL 08/27/2025 7:58 PM EST [facility] Comment:Serial Number: [id number]: [id number] Blood 08/27/2025 7:56 PM EST 08/27/2025 7:58 PM EST Rowena Mancera MD POINT OF CARE TEST ORDERABLES Fi nal Result Performing Organization Address City/[facility]/ZIP Co de Phone Number [facility]
[address] [place] [address], * POC Glucose Once (08/27/2025 4:44 PM EST) Glucose 97 70 - 130 mg/dL 08/27/2025 4:49 PM EST [facility] Comment:Serial Number: [id number]: [id number] Blood 08/27/2025 4:44 PM EST 08/27/2025 4:49 PM EST us Rowena Mancera MD POINT OF CARE TEST ORDERABLES Fi nal Result Performing Organization Address [facility] Phone Number [facility]
[address] [place] [address], * (ABNORMAL) Basic Metabolic Panel (08/27/2025 12:35 PM EST) Glucose 130(H) 65 - 99 mg/dL 08/27/2025 2:14 PM EST [facility] BUN 18.0 8.0 - 23.0 mg/dL 08/27/2025 2:14 PM EST [facility] Creatinine 0.41(L) 0.57 - 1.00 mg/dL 08/27/2025 2:14 PM EST [facility] Sodium 137 136 - 145 mmol/L 08/27/2025 2:14 PM EST [facility] Potassium 4.7 3.5 - 5.2 mmol/L 08/27/2025 2:14 PM EST [facility] Chloride 105 98 - 107 mmol/L 08/27/2025 2:14 PM EST [facility] CO2 24.1 22.0 - 29.0 mmol/L 08/27/2025 2:14 PM EST [facility] Calcium 7.8(L) 8.6 - 10.5 mg/dL 08/27/2025 2:14 PM EST [facility] BUN/Creatinine Ratio 43.9(H) 7.0 - 25.0 08/27/2025 2:14 PM EST [facility] Anion Gap 7.9 5.0 - 15.0 mmol/L 08/27/2025 2:14 PM EST [facility] eGFR 97.2 >60.0 mL/min/1.7 3 08/27/2025 2:14 PM EST [facility] Blood Venipuncture / Unknown 08/27/2025 12:35 PM EST 08/27/2025 1:22 PM EST [facility] - 08/27/2025 2:14 PM EST GFR [...] PA-C LAB BLOOD ORDERABLES F inal Result [facility]
[address] [place] [address], * (ABNORMAL) CBC (No Diff) (08/27/2025 12:35 PM EST) WBC 10.04 3.40 - 10.80 10*3/mm3 08/27/2025 1:28 PM EST [facility] RBC 2.74(L) 3.77 - 5.28 10*6/mm3 08/27/2025 1:28 PM EST [facility] Hemoglobin 7.4(L) 12.0 - 15.9 g/dL 08/27/2025 1:28 PM EST [facility] Hematocrit 25.1(L) 34.0 - 46.6 % 08/27/2025 1:28 PM EST [facility] MCV 91.6 79.0 - 97.0 fL 08/27/2025 1:28 PM EST [facility] MCH 27.0 26.6 - 33.0 pg 08/27/2025 1:28 PM EST [facility] MCHC 29.5(L) 31.5 - 35.7 g/dL 08/27/2025 1:28 PM EST [facility] RDW 13.5 12.3 - 15.4 % 08/27/2025 1:28 PM EST [facility] RDW-SD 44.1 37.0 - 54.0 fl 08/27/2025 1:28 PM EST [facility] MPV 9.5 6.0 - 12.0 fL 08/27/2025 1:28 PM EST [facility] Platelets 404 140 - 450 10*3/mm3 08/27/2025 1:28 PM EST [facility] Blood Venipuncture / Unknown 08/27/2025 12:35 PM EST 08/27/2025 1:21 PM EST us Magali Jeffery PA-C LAB BLOOD ORDERABLES F inal Result [facility]
[address] [place] [address], * POC Glucose Once (08/27/2025 11:28 AM EST) [facility] Glucose 104 70 - 130 mg/dL 08/27/2025 11:38 AM EST [facility] Comment:Serial Number: [id number]: [id number] Blood 08/27/2025 11:2 8 AM EST 08/27/2025 11:38 AM EST Rowena Mancera MD POINT OF CARE TEST ORDERABLES Fi nal Result Performing Organization Address City/[facility]/ZIP Co de Phone Number [facility]
[address] [place] [address], * POC Glucose Once (08/27/2025 6:58 AM EST) Glucose 99 70 - 130 mg/dL 08/27/2025 7:02 AM EST [facility] Comment:Serial Number: [id number]: [id number] Blood 08/27/2025 6:58 AM EST 08/27/2025 7:02 AM EST Rowena Mancera MD POINT OF CARE TEST ORDERABLES Fi nal Result Performing Organization Address [facility] Co de Phone Number [facility]
[address] [place] [address], * POC Glucose Once (08/26/2025 7:18 PM EST) Glucose 118 70 - 130 mg/dL 08/26/2025 7:19 PM EST [facility] Comment:Serial Number: [id number]: [id number] Blood 08/26/2025 7:18 PM EST 08/26/2025 7:19 PM EST Delbert Quesada DO POINT OF CARE TEST ORDERA BLES Final Result Performing Organization Address City/[facility] Co de Phone Number [facility]
[address] [place] [address], * Potassium (08/26/2025 6:52 PM EST) Potassium 5.2 3.5 - 5.2 mmol/L 08/26/2025 7:20 PM EST [facility] Blood Venipuncture / Unknown 08/26/2025 6:52 PM EST 08/26/2025 7:00 PM EST us Delbert Quesada DO LAB BLOOD ORDERABLES Ely l Result Performing Organization Address City/[facility]/ZIP Co de Phone Number [facility]
[address] [place] [address], * (ABNORMAL) POC Glucose Once (08/26/2025 4:27 PM EST) Glucose 239(H) 70 - 130 mg/dL 08/26/2025 4:29 PM EST [facility] Comment:Serial Number: [id number]: [id number] Blood 08/26/2025 4:27 PM EST 08/26/2025 4:29 PM EST us Delbert Quesada DO POINT OF CARE TEST ORDERA BLES Final Result Performing Organization Address [facility] Co de Phone Number [facility]
[address] [place] [address], * (ABNORMAL) POC Glucose Once (08/26/2025 11:37 AM EST) Glucose 142(H) 70 - 130 mg/dL 08/26/2025 11:40 AM EST [facility] Comment:Serial Number: [id number]: [id number] Blood 08/26/2025 11:3 7 AM EST 08/26/2025 11:40 AM EST us Delbert Quesada DO POINT OF CARE TEST ORDERA BLES Final Result [facility]
[address] [place] [address], * Phosphorus (08/26/2025 8:03 AM EST) Pathologist [facility] Phosphorus 2.6 2.5 - 4.5 mg/dL 08/26/2025 8:59 AM EST [facility] Blood Venipuncture / Unknown 08/26/2025 8:03 AM EST 08/26/2025 8:37 AM EST Magali Jeffery PA-C LAB BLOOD ORDERABLES F inal Result Performing Organization Address City/[facility]/ZIP Co de Phone Number [facility]
[address] [place] [address], * (ABNORMAL) Basic Metabolic Panel (08/26/2025 8:03 AM EST) Pathologist [facility] Glucose 112(H) 65 - 99 mg/dL 08/26/2025 8:59 AM EST [facility] BUN 6.6(L) 8.0 - 23.0 mg/dL 08/26/2025 8:59 AM EST [facility] Creatinine 0.34(L) 0.57 - 1.00 mg/dL 08/26/2025 8:59 AM EST [facility] Sodium 138 136 - 145 mmol/L 08/26/2025 8:59 AM EST [facility] Potassium 3.3(L) 3.5 - 5.2 mmol/L 08/26/2025 8:59 AM EST [facility] Chloride 102 98 - 107 mmol/L 08/26/2025 8:59 AM EST [facility] CO2 29.1(H) 22.0 - 29.0 mmol/L 08/26/2025 8:59 AM EST [facility] Calcium 7.8(L) 8.6 - 10.5 mg/dL 08/26/2025 8:59 AM EST [facility] BUN/Creatinine Ratio 19.4 7.0 - 25.0 08/26/2025 8:59 AM EST [facility] Anion Gap 6.9 5.0 - 15.0 mmol/L 08/26/2025 8:59 AM EST [facility] eGFR 101.6 >60.0 mL/min/1.7 3 08/26/2025 8:59 AM EST [facility] Blood Venipuncture / Unknown 08/26/2025 8:03 AM EST 08/26/2025 8:37 AM EST [facility] - 08/26/2025 8:59 AM EST GFR [...] PA-C LAB BLOOD ORDERABLES F inal Result [facility]
[address] [place] [address], * (ABNORMAL) CBC (No Diff) (08/26/2025 8:03 AM EST) WBC 11.81(H) 3.40 - 10.80 10*3/mm3 08/26/2025 8:50 AM EST [facility] RBC 2.79(L) 3.77 - 5.28 10*6/mm3 08/26/2025 8:50 AM EST [facility] Hemoglobin 7.7(L) 12.0 - 15.9 g/dL 08/26/2025 8:50 AM EST [facility] Hematocrit 24.5(L) 34.0 - 46.6 % 08/26/2025 8:50 AM [facility] MCV 87.8 79.0 - 97.0 fL 08/26/2025 8:50 AM [facility] MCH 27.6 26.6 - 33.0 pg 08/26/2025 8:50 AM [facility] MCHC 31.4(L) 31.5 - 35.7 g/dL 08/26/2025 8:50 AM [facility] RDW 13.2 12.3 - 15.4 % 08/26/2025 8:50 AM [facility] RDW-SD 41.9 37.0 - 54.0 fl 08/26/2025 8:50 AM [facility] MPV 9.2 6.0 - 12.0 fL 08/26/2025 8:50 AM [facility] Platelets 376 140 - 450 10*3/mm3 08/26/2025 8:50 AM [facility] Blood Venipuncture / Unknown 08/26/2025 8:03 AM EST 08/26/2025 8:38 AM EST Magali Jeffery PA-C LAB BLOOD ORDERABLES F inal Result [facility]
[address] [place] [address], * Magnesium (08/26/2025 8:03 AM EST) Magnesium 2.0 1.6 - 2.4 mg/dL 08/26/2025 9:05 AM EST [facility] Blood Venipuncture / Unknown 08/26/2025 8:03 AM EST 08/26/2025 8:37 AM EST Magali Jefefry PA-C LAB BLOOD ORDERABLES F inal Result [facility]
[address] [place] [address], * (ABNORMAL) Vitamin B12 (08/26/2025 8:03 AM EST) [facility] Vitamin B-12 1,062(H) 211 - 946 pg/mL 08/26/2025 12:29 PM EST [facility] Blood Venipuncture / Unknown 08/26/2025 8:03 AM EST 08/26/2025 8:38 AM EST [facility] - 08/26/2025 12:29 PM EST Results may be falsely increased if patient taking Biotin. Magali Jeffery PA-C LAB BLOOD ORDERABLES F inal Result Performing Organization Address City/[facility]/ZIP Co de Phone Number [facility]
[address] [place] [address], * Folate (08/26/2025 8:03 AM EST) [facility] Folate 6.55 4.78 - 24.20 ng/mL 08/26/2025 12:29 PM EST [facility] Blood Venipuncture / Unknown 08/26/2025 8:03 AM EST 08/26/2025 8:38 AM EST [facility] - 08/26/2025 12:29 PM EST Results may be falsely increased if patient taking Biotin. Magali Jeffery PA-C LAB BLOOD ORDERABLES F inal Result [facility]
[address] [place] [address], * POC Glucose Once (08/26/2025 7:22 AM EST) [facility] Glucose 119 70 - 130 mg/dL 08/26/2025 7:25 AM EST [facility] Comment:Serial Number: [id number]: [id number] Blood 08/26/2025 7:22 AM EST 08/26/2025 7:25 AM EST Delbert Quesada DO POINT OF CARE TEST ORDERA BLES Final Result Performing Organization Address City/[facility]/ZIP Co de Phone Number [facility]
[address] [place] [address], * (ABNORMAL) POC Glucose Once (08/25/2025 7:47 PM EST) Glucose 199(H) 70 - 130 mg/dL 08/25/2025 7:50 PM EST [facility] Comment:Serial Number: [id number]: [id number] Nova Comment 1 Notified Patients RN 08/25/2025 7:50 PM EST [facility] Blood 08/25/2025 7:47 PM EST 08/25/2025 7:50 PM EST Delbert Quesada DO POINT OF CARE TEST ORDERA BLES Final Result Performing Organization Address [facility] Co de Phone Number [facility]
[address] [place] [address], * (ABNORMAL) POC Glucose Once (08/25/2025 4:27 PM EST) Glucose 144(H) 70 - 130 mg/dL 08/25/2025 4:29 PM EST [facility] Comment:Serial Number: [id number]: [id number] Blood 08/25/2025 4:27 PM EST 08/25/2025 4:29 PM EST Delbert Quesada DO POINT OF CARE TEST ORDERA BLES Final Result Performing Organization Address City/[facility]/ZIP Co de Phone Number [facility]
[address] [place] [address], [place] [phone] * (ABNORMAL) Reticulocytes (08/25/2025 12:20 PM EST) Reticulocyte % 2.11(H) 0.70 - 1.90 % 08/25/2025 12:46 PM EST [facility] Reticulocyte Absolute 0.0559 0.0200 - 0.1300 10*6/mm3 08/25/2025 12:46 PM EST [facility] Blood Venipuncture / Unknown 08/25/2025 12:20 PM EST 08/25/2025 12:43 PM EST Magali Jeffery PA-C LAB BLOOD ORDERABLES F inal Result [facility]
[address] [place] [address], * POC Glucose Once (08/25/2025 12:06 PM EST) Glucose 127 70 - 130 mg/dL 08/25/2025 12:09 PM EST [facility] Comment:Serial Number: [id number]: [id number] Blood 08/25/2025 12:0 6 PM EST 08/25/2025 12:09 PM EST Delbert Quesada DO POINT OF CARE TEST ORDERA BLES Final Result [facility]
[address] [place] [address], * (ABNORMAL) POC Glucose Once (08/25/2025 7:28 AM EST) Glucose 138(H) 70 - 130 mg/dL 08/25/2025 7:30 AM EST [facility] Comment:Serial Number: [id number]: [id number] Blood 08/25/2025 7:28 AM EST 08/25/2025 7:30 AM EST Delbert Quesada DO POINT OF CARE TEST ORDERA BLES Final Result [facility]
[address] [place] [address], * (ABNORMAL) Magnesium (08/25/2025 5:28 AM EST) Magnesium 1.5(L) 1.6 - 2.4 mg/dL 08/25/2025 12:32 PM EST [facility] Blood Venipuncture / Unknown 08/25/2025 5:28 AM EST 08/25/2025 6:36 AM EST Magali Jeffery PA-C LAB BLOOD ORDERABLES F inal Result Performing Organization Address City/[facility]/ZIP Co de Phone Number [facility]
[address] [place] [address], * (ABNORMAL) Iron Profile + Ferritin (08/25/2025 5:28 AM EST) Iron 11(L) 37 - 145 mcg/dL 08/25/2025 12:32 PM EST [facility] Iron Saturation (TSAT) 6(L) 20 - 50 % 08/25/2025 12:32 PM EST [facility] Transferrin 127(L) 200 - 360 mg/dL 08/25/2025 12:32 PM EST [facility] TIBC 189(L) 298 - 536 mcg/dL 08/25/2025 12:32 PM EST [facility] Ferritin 77.90 13.00 - 150.00 ng/mL 08/25/2025 12:32 PM EST [facility] Blood Venipuncture / Unknown 08/25/2025 5:28 AM EST 08/25/2025 6:36 AM EST [facility] - 08/25/2025 12:32 PM EST Results may be falsely decreased if patient taking Biotin. Magali Jeffery PA-C LAB BLOOD ORDERABLES F inal Result [facility]
[address] [place] [address], * (ABNORMAL) CBC (No Diff) (08/25/2025 5:28 AM EST) [facility] WBC 9.69 3.40 - 10.80 10*3/mm3 08/25/2025 6:46 AM [facility] RBC 2.70(L) 3.77 - 5.28 10*6/mm3 08/25/2025 6:46 AM [facility] Hemoglobin 7.5(L) 12.0 - 15.9 g/dL 08/25/2025 6:46 AM [facility] Hematocrit 23.6(L) 34.0 - 46.6 % 08/25/2025 6:46 AM [facility] MCV 87.4 79.0 - 97.0 fL 08/25/2025 6:46 AM [facility] MCH 27.8 26.6 - 33.0 pg 08/25/2025 6:46 AM [facility] MCHC 31.8 31.5 - 35.7 g/dL 08/25/2025 6:46 AM [facility] RDW 13.2 12.3 - 15.4 % 08/25/2025 6:46 AM [facility] RDW-SD 41.7 37.0 - 54.0 fl 08/25/2025 6:46 AM [facility] MPV 9.0 6.0 - 12.0 fL 08/25/2025 6:46 AM [facility] Platelets 367 140 - 450 10*3/mm3 08/25/2025 6:46 AM [facility] Blood Venipuncture / Unknown 08/25/2025 5:28 AM EST 08/25/2025 6:36 AM EST Delbert Quesada DO LAB BLOOD ORDERABLES Ely laquita Result [facility]
[address] [place] [address], * (ABNORMAL) Basic Metabolic Panel (08/25/2025 5:28 AM EST) [facility] Glucose 107(H) 65 - 99 mg/dL 08/25/2025 7:09 AM [facility] BUN 10.1 8.0 - 23.0 mg/dL 08/25/2025 7:09 AM [facility] Creatinine 0.33(L) 0.57 - 1.00 mg/dL 08/25/2025 7:09 AM [facility] Sodium 134(L) 136 - 145 mmol/L 08/25/2025 7:09 AM [facility] Potassium 3.7 3.5 - 5.2 mmol/L 08/25/2025 7:09 AM [facility] Chloride 100 98 - 107 mmol/L 08/25/2025 7:09 AM [facility] CO2 25.7 22.0 - 29.0 mmol/L 08/25/2025 7:09 AM [facility] Calcium 7.8(L) 8.6 - 10.5 mg/dL 08/25/2025 7:09 AM [facility] BUN/Creatinine Ratio 30.6(H) 7.0 - 25.0 08/25/2025 7:09 AM [facility] Anion Gap 8.3 5.0 - 15.0 mmol/L 08/25/2025 7:09 AM [facility] eGFR 102.4 >60.0 mL/min/1.7 3 08/25/2025 7:09 AM [facility] Blood Venipuncture / Unknown 08/25/2025 5:28 AM EST 08/25/2025 6:36 AM EST Narrative [facility] - 08/25/2025 7:09 AM EST GFR [...] ORDERABLES Ely l Result Performing Organization Address City/[facility]/ZIP Co de Phone Number [facility]
[address] [place] [address], * (ABNORMAL) POC Glucose Once (08/24/2025 7:55 PM EST) Glucose 161(H) 70 - 130 mg/dL 08/24/2025 7:57 PM EST [facility] Comment:Serial Number: [id number]: [id number] Nova Comment 1 Notified Patients RN 08/24/2025 7:57 PM EST [facility] Blood 08/24/2025 7:55 PM EST 08/24/2025 7:57 PM EST Delbert Quesada DO POINT OF CARE TEST ORDERA BLES Final Result [facility]
[address] [place] [address], * POC Glucose Once (08/24/2025 4:28 PM EST) Glucose 100 70 - 130 mg/dL 08/24/2025 4:31 PM EST [facility] Comment:Serial Number: [id number]: [id number] Blood 08/24/2025 4:28 PM EST 08/24/2025 4:31 PM EST us Delbert Quesada DO POINT OF CARE TEST ORDERA BLES Final Result Performing Organization Address City/[facility]/ZIP Co de Phone Number [facility]
[address] [place] [address], * POC Glucose Once (08/24/2025 11:32 AM EST) Glucose 111 70 - 130 mg/dL 08/24/2025 11:34 AM EST [facility] Comment:Serial Number: [id number]: [id number] Blood 08/24/2025 11:3 2 AM EST 08/24/2025 11:34 AM EST Delbert Quesada DO POINT OF CARE TEST ORDERA BLES Final Result Performing Organization Address [facility]/ZIP Co de Phone Number [facility]
[address] [place] [address], * POC Glucose Once (08/24/2025 7:36 AM EST) Glucose 94 70 - 130 mg/dL 08/24/2025 7:38 AM EST [facility] Comment:Serial Number: [id number]: [id number] Blood 08/24/2025 7:36 AM EST 08/24/2025 7:38 AM EST us Delbert Quesada DO POINT OF CARE TEST ORDERA BLES Final Result Performing Organization Address City/[facility]/ZIP Co de Phone Number [facility]
[address] [place] [address], * (ABNORMAL) CBC Auto Differential (08/24/2025 6:05 AM EST) [facility] WBC 11.45(H) 3.40 - 10.80 10*3/mm3 08/24/2025 7:29 AM [facility] RBC 2.88(L) 3.77 - 5.28 10*6/mm3 08/24/2025 7:29 AM [facility] Hemoglobin 8.1(L) 12.0 - 15.9 g/dL 08/24/2025 7:29 AM [facility] Hematocrit 26.0(L) 34.0 - 46.6 % 08/24/2025 7:29 AM [facility] MCV 90.3 79.0 - 97.0 fL 08/24/2025 7:29 AM [facility] MCH 28.1 26.6 - 33.0 pg 08/24/2025 7:29 AM [facility] MCHC 31.2(L) 31.5 - 35.7 g/dL 08/24/2025 7:29 AM [facility] RDW 13.2 12.3 - 15.4 % 08/24/2025 7:29 AM [facility] RDW-SD 43.7 37.0 - 54.0 fl 08/24/2025 7:29 AM [facility] MPV 9.2 6.0 - 12.0 fL 08/24/2025 7:29 AM [facility] Platelets 407 140 - 450 10*3/mm3 08/24/2025 7:29 AM [facility] Neutrophil % 68.4 42.7 - 76.0 % 08/24/2025 7:29 AM [facility] Lymphocyte % 17.0(L) 19.6 - 45.3 % 08/24/2025 7:29 AM [facility] Monocyte % 12.0 5.0 - 12.0 % 08/24/2025 7:29 AM [facility] Eosinophil % 1.7 0.3 - 6.2 % 08/24/2025 7:29 AM [facility] Basophil % 0.3 0.0 - 1.5 % 08/24/2025 7:29 AM [facility] Immature Grans % 0.6(H) 0.0 - 0.5 % 08/24/2025 7:29 AM [facility] Neutrophils, Absolute 7.83(H) 1.70 - 7.00 10*3/mm3 08/24/2025 7:29 AM [facility] Lymphocytes, Absolute 1.95 0.70 - 3.10 10*3/mm3 08/24/2025 7:29 AM [facility] Monocytes, Absolute 1.37(H) 0.10 - 0.90 10*3/mm3 08/24/2025 7:29 AM [facility] Eosinophils, Absolute 0.20 0.00 - 0.40 10*3/mm3 08/24/2025 7:29 AM [facility] Basophils, Absolute 0.03 0.00 - 0.20 10*3/mm3 08/24/2025 7:29 AM [facility] Immature Grans, Absolute 0.07(H) 0.00 - 0.05 10*3/mm3 08/24/2025 7:29 AM [facility] nRBC 0.0 0.0 - 0.2 /100 WBC 08/24/2025 7:29 AM [facility] Blood Venipuncture / Unknown 08/24/2025 6:05 AM EST 08/24/2025 6:58 AM EST us [facility] LAB BLOOD ORDERABLES Final Res ult [facility]
[address] [place] [address], * (ABNORMAL) Basic Metabolic Panel (08/24/2025 6:05 AM EST) [facility] Glucose 81 65 - 99 mg/dL 08/24/2025 7:26 AM [facility] BUN 15.8 8.0 - 23.0 mg/dL 08/24/2025 7:26 AM [facility] Creatinine 0.40(L) 0.57 - 1.00 mg/dL 08/24/2025 7:26 AM [facility] Sodium 137 136 - 145 mmol/L 08/24/2025 7:26 AM [facility] Potassium 4.3 3.5 - 5.2 mmol/L 08/24/2025 7:26 AM [facility] Chloride 102 98 - 107 mmol/L 08/24/2025 7:26 AM [facility] CO2 24.8 22.0 - 29.0 mmol/L 08/24/2025 7:26 AM [facility] Calcium 8.1(L) 8.6 - 10.5 mg/dL 08/24/2025 7:26 AM [facility] BUN/Creatinine Ratio 39.5(H) 7.0 - 25.0 08/24/2025 7:26 AM [facility] Anion Gap 10.2 5.0 - 15.0 mmol/L 08/24/2025 7:26 AM [facility] eGFR 97.7 >60.0 mL/min/1.7 3 08/24/2025 7:26 AM [facility] Blood Venipuncture / Unknown 08/24/2025 6:05 AM EST 08/24/2025 6:57 AM [facility] - 08/24/2025 7:26 AM EST GFR [...] does not include race as a factor [facility] MD LAB BLOOD ORDERABLES Final Res ult Performing Organization Address [facility] de Phone Number [facility]
[address] [place] [address], * POC Glucose Once (08/23/2025 8:10 PM EST) Glucose 126 70 - 130 mg/dL 08/23/2025 8:12 PM EST [facility] Comment:Serial Number: [id number]: [id number] Blood 08/23/2025 8:10 PM EST 08/23/2025 8:12 PM EST Neda Ocampo DO POINT OF CARE TEST ORDERABL ES Final Result Performing Organization Address [facility] Phone Number [facility]
[address] [place] [address], * POC Glucose Once (08/23/2025 2:42 PM EST) Glucose 123 70 - 130 mg/dL 08/23/2025 2:45 PM EST [facility] Comment:Serial Number: [id number]: [id number] Blood 08/23/2025 2:42 PM EST 08/23/2025 2:45 PM EST Junior Pavel FLYNN POINT OF CARE TEST ORDERABLES Final Result Performing Organization Address [facility] de Phone Number [facility]
[address] [place] [address], * (ABNORMAL) POC Glucose Once (08/23/2025 2:20 PM EST) Glucose 51(L) 70 - 130 mg/dL 08/23/2025 2:23 PM EST [facility] Comment:Serial Number: [id number]: [id number] Blood 08/23/2025 2:20 PM EST 08/23/2025 2:23 PM EST Junior Pavel FLYNN POINT OF CARE TEST ORDERABLES Final Result [facility]
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 Caramel Coloring Operator sections are submitted as follows: 1A-en face proximal skin margin 1B-heel ulcer 1C-anterior and posterior tibial arteries, submitted following decalcification 1D-great toe amputation site with underlying bone, submitted following decalcification 1E-proximal marrow. LDP 08/27/2025 1:08 PM [facility] Microscopic Description The slides are reviewed and demonstrate histopathologic features supporting the above rendered diagnosis. 08/27/2025 1:08 PM [facility] Tissue Structure of left knee region / Unknown 08/23/2025 11:30 AM EST 08/23/2025 1:01 PM EST Junior Pavel FLYNN PATHOLOGY/CYTOLOGY ORDERABLES Final Result Performing Organization Address City/[facility] Co de Phone Number [facility]
[address] [place] [address], * POC Glucose Once (08/23/2025 10:03 AM EST) Glucose 82 70 - 130 mg/dL 08/23/2025 10:05 AM EST [facility] Comment:Serial Number: [id number]: [id number] Blood 08/23/2025 10:0 3 AM EST 08/23/2025 10:05 AM EST Junior Pavel FLYNN POINT OF CARE TEST ORDERABLES Final Result [facility]
[address] [place] [address], documented in this encounter Visit Diagnoses Diagnosis [...] Every 12 Hours Scheduled, First dose on 08/26/25 at 2100, Tablet may be crushed and [...] Daily, First dose on 08/24/25 at 0900 Given 08/28/2025 9:02 AM EST [...] over 60 Minutes, Daily, First dose on 08/25/25 at 1615, For 5 doses, Not to [...] mg/dL - 7 units & Call Provider ([facility]) Caution: Look alike/sound alike drug alert([facility]) Given 08/26/2025 5:56 PM EST 3 Units [...] BPA Driven Protocol Open Order & Select [facility] Electrolyte Replacement Protocol Algorithm to View Details [...] BPA Driven Protocol Open Order & Select [facility] Electrolyte Replacement Protocol Algorithm to View Details [...] 7 out of 10, please notify the Thread Clipper Provider at [phone](messages go to beeper service). Thank you If Pt. Has a Hip Fx block(Fascia Iliacus), please remove Block Catheter prior to Discharge, Basal Rate: 1 mL/hr, Programmed Intermittent Bolus (PIB): 5 mL, PIB Lockout Interval: 120 min, ADMIN PROG COORD Bolus: 5 mL, ADMIN PROG COORD Lockout Interval: 30 min New Bag 08/23/2025 [...] III, BRAVO) 0839 (Given - Provider: Natalie Martin, BRAVO)2027 (Given - Provider: Ha Toney III, RN) 09 (Given - Provider: Niesha Kwok RN) budesonide-formoterol (SYMBICORT) 160-4.5 MCG/ACT inhaler 2 puff 2 puff, Inhalation, 2 Times Daily - RT, First dose on Tue08/23/25 at 2130, Include Respiratory Treatment Education (SP) Shake well. Rinse mouth after use, do not swallow water. Send aerosols to pharmacy in ziplock bag for proper disposal. 1044 (Given - Provider: William Burnett, [employer]INE EQUIPMENT SALES ENGINEER)1999 (Given - Provider: Raj Jensen, ENID)213 (Canceled Entry - Provider: Raj Jensen RRT) 1032 (Given - Provider: William Burnett RRT)1928 (Given - Provider: Pako Childers RRT)213 (Canceled [...] Castillo RN) 0838 (Given - Provider: Natalie Martin RN) 0902 [...] RN) 0904 (New Bag - Provider: Niesha Kwok, [...] (Given - Provider: Ha Toney III, BRAVO) 0902 (Given - Provider: Niesha Kwok RN) gabapentin [...] Flush tube before and after administration (SHIRA) 2237 (Given - Provider: Ha Toney III, RN) [...] mg/dL - 7 units & Call Provider ([facility]) Caution: Look alike/sound alike drug alert([facility]) 0732 (Not Given - Provider: Natalie Martin [...] (Given - Provider: Ha Toney III, BRAVO) QUEtiapine (SEROquel) tablet 12.5 mg 12.5 mg, [...] 7 out of 10, please notify the Thread Clipper Provider at [phone](messages go to beeper service). Thank you If Pt. Has a Hip Fx block(Fascia Iliacus), please remove Block Catheter prior to Discharge, Basal Rate: 1 mL/hr, Programmed Intermittent Bolus (PIB): 5 mL, PIB Lockout Interval: 120 min, ADMIN PROG COORD Bolus: 5 mL, ADMIN PROG COORD Lockout Interval: 30 min 1652 (Due: Order [...] fever greater than 100.4 F, Starting on 11/8/25 at 0915, If given for fever, use [...] BPA Driven Protocol Open Order & [facility] Electrolyte Replacement Protocol Algorithm to View Details [...] for injection by adding 1 mL of bulk cooler installer-supplied sterile diluent or sterile water for injection [...] BPA Driven Protocol Open Order & [facility] Electrolyte Replacement Protocol Algorithm to View Details nitroglycerin (NITROSTAT) SL tablet 0.4 mg 0.4 mg, Sublingual, Every 5 Minutes PRN, Chest Pain, Starting on Tue08/23/25 at 1540, Notify Provider if Pain Unrelieved After 3 Doses May administer up to 3 doses per episode. Hold if SBP less than 100. Phosphorus Replacement - Follow Nurse / BPA Driven Protocol Open Order [employer] [facility] Electrolyte Replacement Protocol Algorithm to View Details [...] BPA Driven Protocol Open Order [employer] [facility] Electrolyte Replacement Protocol Algorithm to View Details [...] documented as of this encounter Care Teams Pole Peeling Machine Operator Helper Relationship Specialty Start Date End Date Alexis Montanez MD [facility] [place] [facility] [address] [place] [address] PCP - General Family Medicine 07/23/25 documented as of this encounter
--- OUTSIDE RECORDS SUMMARY | 2025-08-23 10:00 | XMS_ITS | Encounter Summary ---
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 Patient unable to answer 08/01/2025 [facility] - Occupational [...] daily living? Patient unable to answer 08/01/2025 [place] Utilities Answer Date Recorded In the past 12 months has th e [employer], gas, oil, or water company threatened to [...] Patient unable to answer 08/26/2025 Preferred Language Equatorial Guinean 08/26/2025 PHQ-2 Answer Date Recorded Patient Health [...] 08/23/2025 9:26 AM Ana Bernal RN * [place] Suicide Severity Rating Scale (Screener/Recent Self-Report) Question Answer Date of Assessment Author 6. Suicidal Behavior (Lifetime) No 9:26 AM Ana Ta RN documented as of this encounter Plan of Treatment Upcoming Encounters Date Type Department Care Team (Late st Contact Info) Description 09/16/2025 10:30 AM EST Office Visit [facility] UROLOGY [address] [facility] [address] [place] [phone] Melissa Briceño TRAIN ELECTRONIC TECHNICIAN [address] [facility] [address] [place], [place] [id number] documented as of this encounter Procedures Procedure [...] minimal resistance. 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
--- OUTSIDE RECORDS SUMMARY | 2025-08-23 10:05 | XMS_ITS | Encounter Summary ---
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 Patient unable to answer 08/01/2025 [facility] - [...] daily living? Patient unable to answer 08/01/2025 [facility] Utilities Answer Date Recorded In the past 12 months has th e [employer], gas, oil, or water company threatened to [...] Patient unable to answer 08/26/2025 Preferred Language Liberian 08/26/2025 PHQ-2 Answer Date Recorded Patient Health [...] 08/23/2025 9:26 AM Ana Bernal RN * [place] Suicide Severity Rating Scale (Screener/Recent Self-Report) Question Answer Date of Assessment Author 6. Suicidal Behavior (Lifetime) No 9:26 AM Ana Ta RN documented as of this encounter Plan of Treatment Upcoming Encounters Date Type Department Care Team (Late st Contact Info) Description 09/16/2025 10:30 AM EST Office Visit [facility] UROLOGY [address] [facility] [address] [place], [place] [phone] Melissa Briceño SPECIAL EDUCATION PARAPROFESSIONAL [address] [facility] [address] [place] [address] documented as of this encounter Procedures Procedure [...] catheter connection. Performed by: Roscoe Storm CRNA Roscoe Storm FLIGHT ATTENDANT/INFLIGHT SUPERVISOR ANESTHESIA ORDERABLES Edited Re sult - Final documented in this encounter Visit Diagnoses Not on filedocumented in this encounter Additional Health Concerns Infection Onset Date Last Indicated Resolved Time MRSA 07/24/2025 07/24/2025 documented as of this encounter Care Teams Manager Study Relationship Specialty Start Date End Date Alexis Montanez MD [address] [facility] [address] [facility] [address] [place] [address] PCP - General Family Medicine 07/23/25 documented as of this encounter
--- OUTSIDE RECORDS SUMMARY | 2025-08-23 10:54 | XMS_ITS | Encounter Summary ---
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] Procedures FIRST METATARSAL AND SECOND TOE AMPUTATION WITH FOOT DEBRIDEMENT Referral ID Status Reason Start Date Expiration Date Visits Re quested Visits Authorized [id number] 1 1 Encounter Details Date Type Department Care Team (Late st Contact Info) Description 08/23/2025 10:54 AM EST Anesthesia Event [facility] OR [address] [place] [address] Venkata Gallagher MD [address] [place] [address] Desiree Rogers CRNA [address], [place] [id number] Anesthesia Record Procedure Summary Procedure Name Responsible [...] Pressure Inj 08/02/25 1831 by Sabra Woody, park police 08/23/25; N; Left; anterior; knee; Surgical 08/23/25 [...] daily living? Patient unable to answer 08/01/2025 [facility] Utilities Answer Date Recorded In the past 12 months has th [employer]), gas, oil, or water [employer] threatened to shut off services in your [...] Patient unable to answer 08/22/2025 Preferred Language Nepalese 08/22/2025 PHQ-2 Answer Date Recorded Patient Health [...] 08/23/2025 9:26 AM Ana Bernal RN * [place] Suicide Severity Rating Scale (Screener/Recent Self-Report) Question Answer Date of Assessment Author 6. 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 Plan discussed with BLOCKLAYER. CODE STATUS: documented in this encounter Plan of Treatment Upcoming Encounters Date Type Department Care Team (Late st Contact Info) Description 09/16/2025 10:30 AM EST Office Visit [facility] UROLOGY [address] [address] Melissa Briceño APRN [address] [facility] [address] [place] [address] documented as of this encounter Procedures [...] Performed by: Roscoe Storm, YENIFER Roscoe Storm CRNA ANESTHESIA ORDERABLES Edited Re [...] alike drug alert, Indications: Surgical ProphylaxisIndications:Surgical Prophylaxis New Bag 08/23/2025 11:07 AM EST 2,000 mg dexAMETHasone [...] PRN, Starting on Tue08/23/25 at 1100 New Bag 08/23/2025 11:00 AM EST 100 mcg/kg/min 27 mL/hr documented in this encounter Additional Health Concerns Infection Onset Date Last Indicated Resolved Time MRSA 07/24/2025 07/24/2025 documented as of this encounter Care Teams Agent Producer Relationship Specialty Start Date End Date Alexis Montanez MD [address] [facility] [address] [facility] [address] [place] [address] PCP - General Family Medicine 07/23/25 documented as of this encounter
--- OUTSIDE RECORDS SUMMARY | 2025-08-31 12:04 | XMS_ITS ---
Author Organization [facility] Address [address] [facility] [address] [place] [id number] Care Team Providers Care Shaker Repairer Name Role Phone Buck Valencia Primary Care Provider [phone] Don King [phone] Encounters Encounter Location Date Provider Diagnosis [facility] [address] [facility] [address] [place] [phone] 08/31/2025 Don King UTI (lower urinary tract infection) N39.0 Assessments Encounter Date Diagnosis (ICD Code) Assessment Notes Treatment Notes Treatment Clinical Notes Section Notes 08/31/2025 UTI (lower urinary tract infection) (ICD-10 - N39.0) Plan Of Treatment Pending Test Test Name Order Date H-Urine Culture and Sensitivity 08/31/20 25 H-Urinalysis (cathed specimen) Next Appt Details Provider Name:Alexis hickey, 09/03/2025 11:45:00 AM, [address], [address], [place], [phone], Provider Name:Alexis hickey, 09/04/2025 10:15:00 AM, [address], [place], [phone], Progress Notes * LASHAWN SANTOS ADOB: [birth year] (85 yo F)Acc No.[id number]:08/31/2025 Patient: Barrie LASHAWN ELIZABETH :1940 A ge:85 Y S ex:Female Address:[address] [place] [address] , [place] [address] Subjective: * Chief Complaints: * * Medical History: * Surgical History: * Hospitalization/Major Diagno stic Procedure: * Medications: Objective: * Vitals: * Physical Examination: Assessment: * Assessment: 1. U TI (lower urinary tract infection) - N39.0 (Primary) Plan: * Treatment: * Procedure Codes: * * Date:
--- OUTSIDE RECORDS SUMMARY | 2025-09-01 16:21 | XMS_ITS | Encounter Summary ---
[facility] Address [address] [place] [address] Care Team Providers Care Director Of Analytical Development Name Role Phone Alexis Montanez MD Primary Care Provider [phone] Encounter Details Date Type Department Care Team (Late st Contact Info) Description 08/28/2025 Readmission Management [facility] [address] [place] [phone] Silvia Granado, RN Social History Tobacco Use Types Packs/Day Years [...] and heating? Patient unable to answer 08/01/2025 [facility] [place] of Occupat ional Health - Occupational Stress [...] daily living? Patient unable to answer 08/01/2025 [facility] Utilities Answer Date Recorded In the past 12 months has [facility] [employer], gas, oil, or water [employer] threatened to shut off services in your [...] Patient unable to answer 08/26/2025 Preferred Language Puerto Rican 08/26/2025 PHQ-2 Answer Date Recorded Patient Health Questionnaire-2 Score 0 07/24/2025 Comments No Sex and Gender Information Value Date Recorded Sex Assigned at Not on file Legal Sex Female 4:32 PM EDT Gender Identity Not on file Sexual Orientation Not on file documented as of this encounter Miscellaneous Notes * Outreach Note - Silvia Granado RN - 08/28/2025 7:29 PM EST Prep Survey Flowsheet Row Responses [facility] patient discharged from? [place] Is LACE score less than 10 ? No Eligibility Readm Mgmt Discharge diagnosis Critical limb ischemia of left lower extremity Does the patient have one of the following disease processes/diagnoses(primary or secondary)? Other Does the patient have Home health ordered? Yes What is the Home health agency? [facility] Yash Is there a DME ordered? Yes What DME was ordered? Zeferino sam [facility] Prep survey completed? Yes SILVIA El - Registered Nurse documented in this encounter Plan of Treatment Upcoming Encounters Date Type Department Care Team (Late st Contact Info) Description 09/16/2025 10:30 AM EST Office Visit [facility] UROLOGY [address] [facility] [address] [place] [address] Melissa Briceño APRN [address]60 [facility] [address] [place] [address] documented as of this encounter Visit Diagnoses Not on filedocumented in this encounter Additional Health Concerns Infection Onset Date Last Indicated Resolved Time MRSA 07/24/2025 07/24/2025 documented as of this encounter Care Teams Director Of Analytical Development Relationship Specialty Start Date End Date Alexis Montanez MD 1210 [facility] [address] [facility] [address] [place] [address] PCP - General Family Medicine 07/23/25 documented as of this encounter
--- OUTSIDE RECORDS SUMMARY | 2025-09-01 16:21 | XMS_ITS | Encounter Summary ---
[facility] Address [address] [place] [address] Care Team Providers Care Weight Trainer Name Role Phone Alexis Montanez MD Primary Care Provider [phone] Encounter Details Date Type Department Care Team (Late st Contact Info) Description 08/29/2025 Readmission Management [facility] [address] [place] [phone] Lizeth Stroud, BRAVO Social History Tobacco Use Types Packs/Day Years [...] and heating? Patient unable to answer 08/01/2025 [facility] [place] of Occupat ional Health - Occupational Stress [...] Patient unable to answer 08/01/2025 [facility] Utilities Answer Date Recorded In the past 12 months has [facility] [employer], gas, oil, or water [employer] threatened to shut off services in your [...] Patient unable to answer 08/26/2025 Preferred Language Rwandan 08/26/2025 PHQ-2 Answer Date Recorded Patient Health Questionnaire-2 Score 0 07/24/2025 Comments No Sex and Gender Information Value Date Recorded Sex Assigned at Not on file Legal Sex Female 4:32 PM EDT Gender Identity Not on file Sexual Orientation Not on file documented as of this encounter Miscellaneous Notes * Outreach Note - Lizeth Stroud RN - 08/29/2025 8:16 AM EST Images from the original note were not included. Medical Week 1 Survey Flowsheet Row Responses [facility] patient discharged from? [facility] Does the patient have one of the following disease processes/diagnoses(primary or secondary)? Other Week 1 attempt successful? Yes Call start time 817 Call end time 821 Discharge diagnosis PAD w/ LT LE critical limb ischemia s/p LT BKA Is patient permission given to speak with other caregiver? Yes List who call center can speak with grandhannah Caal, daughters Estela and Fabiana Person spoke with today (if not patient) and relationship daughter Estela Meds reviewed with patient/caregiver? Yes Does the patient have all medications ordered at discharge? No [Daughter reports that the memantinewasnt filled yesterday, doesnt know why] Nursing Interventions Nurse provided patient education [Advised to contact pharmacy and check on status of fill.] Is the patient taking all medications as directed (includes completed medication regime)? No What is preventing the patient from taking all medications as directed? Other [See torsten. Reports has all meds on list except for memantine. Daughter to follow up with pharmacy] Comments regarding appointments New Patient with Melissa Briceño urology Tuesday 10:30 AM (Arrive by 10:15 AM) Does the patient have a primary care provider? Yes Does the patient have an appointment with their PCP within 7 days of discharge? Yes Comments regarding PCP Follow up with Alexis Montanez Tuesday AT: 10:15 AM Has the patient kept scheduled appointments due by today? N/A Comments Go to [facility] Tuesday AT: 9:15 AM What is the Home health agency? [facility] Yash Has home health visited the patient within 72 hours of discharge? Call prior to 72 hours [ has contacted, expected visit tomorrow.] What DME was ordered? Hospital bed Has all DME been delivered? No DME comments Daughter states that [facility] in [place] will be delivering. Psychosocial issues? No Comments Daughter states patient has all needed other home equipment. Did the patient receive a copy of their discharge instructions? Yes Nursing interventions Reviewed instructions with patient What is the patient's perception of their health status since discharge? Same Is the patient/caregiver able to teach back the hierarchy of who to call/visit for symptoms/problems? PCP, Specialist, Home health nurse, Urgent Care, ED, 911 Yes If the patient is a current smoker, are they able to teach back resources for cessation? Not a smoker Week 1 call completed? Yes Would this patient benefit from a Referral to Amb Social Work? No Is the patient interested in additional calls from an ambulatory supervisor case loading? No Wrap up additional comments Daughter denies any questions or needs today. 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
--- OUTSIDE RECORDS SUMMARY | 2025-09-01 16:22 | XMS_ITS | Patient Health Record ---
[facility] Organization [facility] Address [address] [facility] [address] [place] [id number] Care Team Providers Care Charge Weigher Name Role Phone Buck Valencia Primary Care Provider [phone] Don King Unavailable [phone] Alexis Montanez Unavailable [phone] Allergies Allergen (clinical drug ingredient) Drug/Non Drug Allergy documented on EMR Reaction Allergy Type Onset Date Status acetaminophen / hydrocodone HYDROcodone-Acetamino phen vomiting Drug Allergy Active codeine Codeine rash Drug Allergy Active morphine Morphine Unknown Drug Allergy Active Penicillin Unknown Drug Allergy Active Results Component Value Reference Range Notes M-Complete Blood Count Man D if Reviewed [...] 2 0-3 % PLTE Normal RM Normal H-Sputum Culture with Gram S katherine Reviewed date:11/06/2024 10:08:57 AM Interpretation: Performing Lab: Notes/Report: Comment: Induce w/3ml NS neb tx if necessary GS Gram Stain: GS <10 White Blood Cells/LPF GS <10 Epithelial Cells / LPF GS No Organisms Seen CUSPU ORGANISM 1: Staphylococcus aureus RX BATES: R- Resistant S- Susceptible I- Intermediate * [facility] Many RX BATES: R- Resistant S- Susceptible I- Intermediate * [facility]: R- Resistant S- Susceptible I- Intermediate * [facility]: R- Resistant S- Susceptible I- Intermediate * Not on [facility] Staphylococcus aureu s: REACTION RX BATES: R- Resistant S- Susceptible I- Intermediate * Not on [facility] Clindamycin <=0.5 S RX BATES: R- Resistant S- Susceptible I- Intermediate * Not on [facility] Erythromycin >4 R RX BATES: R- Resistant S- Susceptible I- Intermediate * Not on [facility] Gentamicin <=1 S RX BATES: R- Resistant S- Susceptible I- Intermediate * Not on [facility] Minocycline <=1 S RX BATES: R- Resistant S- Susceptible I- Intermediate * Not on [facility] Oxacillin >2 R RX BATES: R- Resistant S- Susceptible I- Intermediate * Not on [facility] Penicillin >1 R RX BATES: R- Resistant S- Susceptible I- Intermediate * Not on [facility] Rifampin <=0.5 S RX BATES: R- Resistant S- Susceptible I- Intermediate * Not on [facility] Tetracycline <=0.5 S RX BATES: R- Resistant S- Susceptible I- Intermediate * Not on [facility] Trimethoprim/Sulfame tho xazole <=0.5/9.5 S RX BATES: R- Resistant S- Susceptible I- Intermediate * [facility] Vancomycin <=0.5 S RX BATES: R- Resistant S- Susceptible I- Intermediate * [facility]: R- Resistant S- Susceptible I- Intermediate * Not on [facility] This organism is a Methicillin Resistant Staph aureus. RX BATES: R- Resistant S- Susceptible I- Intermediate * Not on [facility] Results called to: Buck ROBLES at 0843 by Ada NORIEGA . RX BATES: R- Resistant S- Susceptible I- Intermediate * Not on [facility] H-BMP Reviewed date:11/02/2024 08:29:44 AM Interpretation: Performing [...] 0.4 0.0-0.4 K/mm3 BA# 0.0 0-0.2 K/mm3 H-BMP Reviewed date:11/05/2024 08:12:47 AM Interpretation: Performing [...] 153 74-100 mg/dl CA 9.1 8.4-10.2 mg/dl P-Vitamin D 25-Hydroxy Reviewed date:05/02/2025 09:01:58 AM Interpretation:49.2 Performing Lab: Notes/Report: CLIA: [id number] Mehdi Rodríguez MD, Drug Safety Specialist [facility] [facility] , [address], [place] [address] Test performed by [email or web address] Vitamin D 25-Hydroxy 49.2 30.0-100.0 ng/mL Interpretation [...] 52 Performing Lab: Notes/Report: Test performed by [employer] [address] [place] [address] , [address], [place] [address] Mehdi Rodríguez MD, Drug Safety Specialist CLIA: [id number] Sodium 140 135-145 mmol/L Potassium 5.1 3.5-5.3 [...] blood glucose 149 74 - 106 mg/dL Urinalysis - Inhouse Reviewed date:12/24/2024 10:56:33 AM Interpretation: Normal Performing Lab: Notes/Report: Normal Color/Clarity yellow/clear Leuk 1+ Nitrite Neg Urobili 3.2 Protein Neg pH 5.5 Blood Neg Sp. Gr. 1.010 Ketone Neg Bili Neg Gluc Neg P-Culture, Urine Reviewed date:12/24/2024 10:55:44 AM Interpretation:No growth Performing Lab: Notes/Report: CLIA: [id number] Mehdi Rodríguez MD, Drug Safety Specialist [address] [place] [address] , [address], [place] [address] Test performed by [employer] Specimen Source Urine - Void Culture, Urine See Below Final Report : No growth H-CBC Reviewed date:02/01/2025 08:34:35 AM Interpretation: Performing Lab: Notes/Report: WBC 10.5 4.8-10.8 K/mm3 RBC 4.16 4.20-5.40 M/mm3 HGB 12.2 12.2-16.2 g/dL Delta: 14.1 o n 01/31/25 HCT 38.0 37.0-47.0 % MCV 91.3 81-99 [...] 143 on 01/31/25 CA 8.7 8.4-10.2 mg/dl Urinalysis - Inhouse Reviewed date:12/21/2024 04:39:47 PM [...] 54 Performing Lab: Notes/Report: Test performed by [employer] [address] [place] [address] , [address], [place] [address] Mehdi Rodríguez MD, Drug Safety Specialist CLIA: [id number] Sodium 141 135-145 mmol/L Potassium 4.7 3.5-5.3 mmol/L Chloride 100 97-108 mmol/L CO2 31 22-32 mmol/L Glucose 146 65-99 mg/dL BUN 27 8-23 mg/dL Creatinine 1.03 0.50-1.00 mg/dL Calcium 9.5 8.6-10.4 mg/dL eGFR by Creatinine 54 >59 mL/min/1.73m2 P-TSH reflex to FT4 Reviewed date:12/21/2024 09:12:59 AM Interpretation:Normal Performing Lab: Notes/Report: Test performed by [employer] [address] [place] [address] , [address], [place] [address] Mehdi Rodríguez MD, Drug Safety Specialist CLIA: [id number] TSH reflex to FT4 2.13 0.43-5.25 mU/L P-Microalbumin/Creatinine, R andom Urine Sample Reviewed date:12/24/2024 10:56:33 AM Interpretation: Normal Performing Lab: Notes/Report: Test performed by [employer] [address] [place] [address] , [place] [address] Mehdi Rodríguez MD, Drug Safety Specialist CLIA: [id number] Albumin/Creatinine Ratio, Urine 24 0-30 ug/mg Microalbumin, Urine, Random 1.0 Creatinine, Urine 41.8 P-Vitamin D 25-Hydroxy Reviewed date:12/21/2024 09:12:59 AM Interpretation:Normal Performing Lab: Notes/Report: Test performed by [employer] [address] [place] [address] , [place] [address] Mehdi Rodríguez MD, Drug Safety Specialist CLIA: [id number] Vitamin D 25-Hydroxy 55.0 30.0-100.0 ng/mL Interpretation of Vitamin D 25 OH: < 20 ng/mL - Deficiency 20 - 29 ng/mL - Insufficiency 30 - 100 ng/mL - Sufficiency > 100 ng/mL - Super-therapeutic- toxicity may occur above this level. Clinical correlation required. Urinalysis - Inhouse Reviewed date:11/23/2024 01:49:50 PM Interpretation: Performing Lab: Notes/Report: Color/Clarity yellow/clear Leuk Trace Nitrite Neg Urobili 3.2 Protein Neg pH 6.0 Blood Trace-Intact Sp. Gr. 1.020 Ketone Neg Bili Neg Gluc Neg P-Culture, Urine Reviewed date:11/27/2024 09:14:15 AM Interpretation:No Significant Growth Performing Lab: Notes/Report: CLIA: [id number] Mehdi Rodríguez MD, Drug Safety Specialist [address] [place] [address] , [place] [address] Test performed by [employer] Specimen Source Urine - Void Culture, Urine See Below Final Report : No Significant Growth Reason For Referral No Information Medications Medication SIG (Take, Route, Frequency, Duration) Notes Start Date End Date Status hydrOXYzine HCl 25 MG 1 tablet as needed Orally Two times a day 02/18/2025 Active Symbicort 160-4.5 MCG/ACT 2 puffs Inhala tion twice a day; Duration: 30 days Active Gabapentin 300 MG 2 cap(s) orally 2 ti mes a day; Duration: 30 days 07/15/2025 Active Ipratropium-Albuterol 0.5-2.5 (3) MG/3ML INHALE THE CONTENTS OF 1 VIAL BY NEBULIZER 4 TIMES A DAY NEEDED; Duration: 15 Active metFORMIN HCl ER 500 MG TAKE 1 TABLET BY MOUTH TWO TIMES A DAY; Duration: 90 Active Aspirin 81 MG 1 tab(s) orally once a day Active Pravastatin Sodium 40 MG 1 tablet Orally Once a day; Duration: 30 days Active Clopidogrel Bisulfate 75 MG 1 tab(s) ora lly once a day Active Carvedilol 3.125 MG 1 tablet with food O rally Twice a day; Duration: 30 day(s) Active Digoxin 125 MCG 1 tab(s) orally once a day Active Eliquis 2.5 MG TAKE 1 TABLET BY MARTHA TH TWICE DAILY; Duration: 30 Active Ventolin HFA 108 (90 Base) MCG/ACT 1 puff Inhalation every 4 hrs, prn Active Losartan Potassium 100 MG 1 tab(s) orall y once a day Active Vitamin D3 125 MCG (5000 UT) 1 cap(s) orally once a day; Duration: 30 day(s) 07/14/2022 Active Immunizations Vaccine Route Administration Date Status Comme nts Prevnar (PCV13) IM Intramuscular 11/13/2018 Administered PNEUMOVAX 23 VACCINE IM Intramuscular 02/18/2021 Administe red Fluzone High Dose (65yr and older) IM Intramuscular 09/04/2018 Administered COVID 19 Pfizer Unknown 11/01/2020 Administered COVID 19 Pfizer Unknown 11/21/2020 Administered Problems Problem Type SNOMED Code ICD Code Onset Dates Problem Status W/U Status Risk Notes Problem Essential hypertension (10773936) Essential (primary) hypertension (I10) Active confirmed Problem Vitamin D deficiency (30769146) Vitamin D deficiency (E55.9) Active confirmed Problem Essential hypertension (19374212) Essential hypertension (I10) Active confirmed Problem Acute exacerbation of chronic obstructive airways disease () COPD with exacerbation (J44.1) Active confirmed Problem Osteopenia (975837375) Osteopenia (M85.80) Active confirmed Problem 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) Depression with anxiety (F41.8) Active confirmed Problem Paroxysmal atrial fibrillation (833047225) Paroxysmal atrial fibrillation (I48.0) Active confirmed Problem Acute exacerbation of chronic obstructive airways disease () COPD exacerbation (J44.1) Active confirmed Problem Memory loss (69332796) Memory loss (R41.3) Active confirmed Problem Murmur (167443046) Murmur (R01.1) Active confir med Problem Diabetic renal disease (489392139) Type 2 diabetes mellitus with diabetic chronic kidney disease (E11.22) Active confirmed Problem Chronic systolic heart failure (984361914) Chronic systolic (congestive) heart failure (I50.22) Active confirmed Problem Peripheral vascular disease (617231088) Peripheral vascular disease, unspecified (I73.9) Active confirmed Problem History of peripheral vascular angioplasty (17249886053184421 ) Peripheral vascular angioplasty status (Z98.62) Active confirmed Problem Peripheral vascular disease (605317358) Peripheral vascular disease (I73.9) Active confirmed Problem Depressive disorder (14012254) Depressive disorder (F32.9) Active confirmed Problem Chronic obstructive pulmonary disease (06177349) Asthmatic bronchitis , chronic (J44.9) Active confirmed Problem Uncomplicated moderate persistent asthma (537952596) Moderate persistent asthma without complication (J45.40) Active confirmed Problem Renal insufficiency (614647023) Renal insufficiency (N28.9) Active confirmed Problem COPD - Chronic obstructive pulmonary disease (67860970) Chronic obstructive pulmonary disease, unspecified COPD type (J44.9) Active confirmed Problem Atrial fibrillation (20798778) PAF (paroxysmal atrial fibrillation) (I48.0) Active confirmed Problem Claudication (38542442) Claudication (I73.9) Active confirmed Problem Exacerbation of moderate persistent asthma (disorder) (105620747) Moderate persistent asthma with acute exacerbation (J45.41) Active confirmed Problem Hyperlipidaemia (84020579) Hyperlipidemia, unspecified hyperlipidemia type (E78.5) Active confirmed Problem Dyslipidemia (200737329) Dyslipidemia (E78.5) Active confirmed Problem Peripheral vascular disease (049833432) PAD (peripheral artery disease) (I73.9) Active confirmed Problem Atherosclerotic heart disease of [place] coronary artery without angina pectoris (852886409433482) Atherosclerosis of [place] coronary artery without angina pectoris, unspecified whether the [place] or transplanted heart (I25.10) Active confirmed Problem Left bundle branch block (58695032) Left bundle branch block (I44.7) Active confirmed Problem Type II diabetes mellitus without complication (184918262) Type 2 diabetes mellitus without complication, unspecified whether termite helper insulin use (E11.9) Active confirmed Problem S/P peripheral artery angioplasty with stent placement (Z95.820) Active confirmed Problem Systolic heart failure (522491214) HFrEF (heart failure with reduced ejection fraction) (I50.20) Active confirmed Problem Chronic kidney disease stage 3A (disorder) (266125478) Stage 3a chronic kidney disease (CKD) (N18.31) Active confirmed Problem Status post amputation of toe (Z89.429) Active confirmed Problem Cerebral atherosclerosis (21333137) Intracranial atherosclerosis (I67.2) Active confirmed Problem Popliteal artery occlusion (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) Active confirmed Vital Signs Heart Rate 70 /min 07/05/2025 Blood pressure diastolic 64 mm Hg 07/05/2025 Height 58 in 07/05/2025 Blood pressure systolic 114 mm Hg 07/05/2025 Weight 104 lbs 07/05/2025 BMI 21.73 kg/m2 07/05/2025 Encounters Encounter Location Date Provider [facility] [address] [place], [place] [id number] 11/22/2024 Alexis Gouldsboro Bacteremia R78.81 ; Urinary tract infection without hematuria, site unspecified N39.0 and Pneumonia due to infectious organism, unspecified laterality, unspecified part of lung J18.9 [facility] [address] [facility] [address] [place], [place] [id number] 12/20/2024 Alexis [place] Type 2 diabetes mellitus without complication, unspecified whether group home insulin use E11.9 ; Stage 3a chronic kidney disease (CKD) N18.31 ; Acute cough R05.1 and Vitamin D deficiency E55.9 [facility] [address] [place], [place] [id number] 12/21/2024 Alexis [place] Pyuria R82.81 [facility] [address] [place], [place] [id number] 02/15/2025 Alexis [place] Peripheral vascular disease I73.9 and BMI 21.0-21.9, adult Z68.21 [facility] [address] [place], [place] [id number] 05/01/2025 Alexis Gould[place] Essential hypertensi on I10 ; Type 2 diabetes mellitus with diabetic chronic kidney disease E11.22 ; Vitamin D deficiency E55.9 ; Dizziness R42 and BMI 21.0-21.9, adult Z68.21 [facility] [address] [place], [place] [id number] 07/05/2025 Alexis [place] Open wound of toe, initial encounter S91.109A ; Pain of left calf M79.662 ; PAD (peripheral artery disease) I73.9 and BMI 21.0-21.9, adult Z68.21 [facility] [address] [place], [place] [id number] 08/31/2025 Don King UTI (lower urinary tract infection) N39.0 [facility] [address] [place], [place] [id number] 10/18/2024 Alexis Gould[place] [facility] [address] [place] [id number] 11/06/2024 Alexis Gould[place] [facility] [address] [place], [place] [id number] 11/06/2024 Alexsi [place] [facility] [address] [place], [place] [id number] 11/20/2024 Buck Valencia [facility] [address] [place], [place] [id number] 12/21/2024 Alexis [place] [facility] [address] [place], [place] [id number] 02/05/2025 Alexis Gould[place] [facility] [address] [place] [id number] 02/18/2025 Alexis Gould[place] [facility] [address] [place], [place] [id number] 03/25/2025 Alexis Gould[place] [facility] [address] [place], [place] [id number] 05/02/2025 Alexis Gould[place] [facility] [address] [place], [place] [id number] 05/20/2025 Buck Valencia [facility] [address] [place], [place] [id number] 06/27/2025 Alexis [place] [facility] [address] [place], [place] [id number] 07/15/2025 Alexis [place] Pain of left calf M79.662 [facility] [address] [facility] [address] [place], [place] [id number] 07/22/2025 Buck Valencia [facility] [address] [facility] [address] [place], [place] [id number] 07/26/2025 Alexis [place] [facility] [address] [facility] [address] [place], [place] [id number] 08/07/2025 Buck Valencia Assessments Encounter Date Diagnosis (ICD Code) Assessment Notes Treatment Notes Treatment Clinical Notes Section Notes 05/01/2025 Essential hypertension (ICD-10 - I10) 05/01/2025 Type 2 diabetes mellitus with diabetic chronic kidney disease (ICD-10 - E11.22) 12/20/2024 Type 2 diabetes mellitus without complication, unspecified whether termite helper insulin use (ICD-10 - E11.9) 12/20/2024 Stage 3a chronic kidney disease (CKD) (ICD-10 - N18.31) 11/22/2024 Bacteremia (ICD-10 - R78.81) Clinically resolved 11/22/2024 Urinary tract infection without hematuria, site unspecified (ICD-10 - N39.0) 12/21/2024 Pyuria (ICD-10 - R82.81) 02/15/2025 Peripheral vascular disease (ICD-10 - I73.9) Keep follow up with cardiology, take all medication as prescribed 02/15/2025 BMI 21.0-21.9, adult (ICD-10 - Z68.21) 07/05/2025 Pain of left calf (ICD-10 - M79.662) 07/05/2025 Open wound of toe, initial encounter (ICD-10 - S91.109A) Patient declines evaluation at wound care. She wants to use topical Medihoney gel to treat wound, plan to evaluate again in office in a few weeks. Call with any new symptoms 07/15/2025 Pain of left calf (ICD-10 - M79.662) 08/31/2025 UTI (lower urinary tract infection) (ICD-10 - N39.0) 07/05/2025 PAD (peripheral artery disease) (ICD-10 - I73.9) 11/22/2024 Pneumonia due to infectious organism, unspecified laterality, unspecified part of lung (ICD-10 - J18.9) Clinically resolved 12/20/2024 Acute cough (ICD-10 - R05.1) 05/01/2025 Vitamin D deficiency (ICD-10 - E55.9) 12/20/2024 Vitamin D deficiency (ICD-10 - E55.9) 05/01/2025 Dizziness (ICD-10 - R42) Plan to stop Lasix and monitor for changes in dizziness 07/05/2025 BMI 21.0-21.9, adult (ICD-10 - Z68.21) 05/01/2025 BMI 21.0-21.9, adult (ICD-10 - Z68.21) 11/22/2024 Other Discharge summary with available lab/diagnostic imaging results obtained and reviewed. Discharge medication list reconciled. Appropriate counseling provided. Moderate Complexity 02/15/2025 Other Discharge summary with available lab/diagnostic imaging results obtained and reviewed. Discharge medication list reconciled. Appropriate counseling provided. Moderate Complexity 07/05/2025 Other Discharge summary with available lab/diagnostic imaging results obtained and reviewed. Discharge medication list reconciled. Appropriate counseling provided. Moderate Complexity 08/14/2025 Other Discharge summary with available lab/diagnostic imaging results obtained and reviewed. Discharge medication list reconciled. Appropriate counseling provided. Moderate Complexity Plan Of Treatment Pending Test Test Name Order Date H-Urine Culture and Sensitivity 08/31/20 25 H-Urinalysis (cathed specimen) Next Appt Details Provider Name:Alexis hickey, 09/03/2025 11:45:00 AM, [address], [address], [place], [phone], Provider Name:Alexis hickey, 09/04/2025 10:15:00 AM, [address], [address], [place], [id number], Insurance Providers Payer Name Payer Address Payer Phone Subscriber Number Group Number Insured Name Patient Relationship to Insured Coverage Start Date Coverage End Date [employer] (MEDICAR E) [address] [address] [place] [phone] [id number] LSAHAWN ZAMORA Self - patient is the insured [...] Thigh 11/22/2013 3 Stents, LT thigh - [facility] 03/2019 Balloon Angioplasty - Femoral Artery and Popiteal Artery (L) 08/16/2019 LT Leg Balloon Angioplasty 08/07/2020 Bilateral Leg Stents Replaced 08/2020 RT 3-4 Toe Amputation 03/27/2021 PPM - Dr. Chadwick Stent placed in right popliteal artery a t [facility] 01/2025 Hospitalization History Reason Date(Month/Year) Vascular Procedure-Leg Discomfort After Surgery- [facility] 03/13/2021 PAD- [facility] 08/21-09/2020 Stent Placement (L) foot- [facility] 08/16-11/2018 stent placement- [facility] 03/20/19 Stent Placement - [facility] 05/2018 COPD, Asthma- [facility] 04/2018 COPD, Asthma- [facility] 12/2017 Chest Pain- [facility] 10/28/2016 [place] 11/20-04/2014 [facility] 10/29- Vomiting- [facility] 12/2012
--- OUTSIDE RECORDS SUMMARY | 2025-09-01 16:23 | XMS_ITS | Clinical Summary ---
Author Organization [facility] Address [address] [place] [address] Care Team Providers Care Supervisor Grading Name Role Phone Alexis Montanez MD Primary Care Provider [phone] Allergies Active Allergy Reactions Criticality Noted Date Comments Codeine Mental Status Change Medium 08/02/2025 Doxycycline Other (See Comments) Low 07/23/2025 Unknown reaction Morphine Mental Status Change Medium 07/23/2025 Penicillins Unknown - High Severity Low 07/23/2025 Sulfur Unknown - High Severity Low 07/23/2025 Alprazolam Mental Status Change Medium 07/31/2025 Medications carvedilol (COREG) 6.25 MG tablet Take 1 tablet by mouth 2 (Two) Times a Day With Meals. Active clopidogrel (PLAVIX) 75 MG tablet Take 1 tablet by mouth Daily. Active digoxin (LANOXIN) 125 MCG tablet Take 1 tablet by mouth Daily. Active pravastatin (PRAVACHOL) 40 MG tablet Take 1 tablet by mouth Every Night. Active budesonide-fo rmoterol (SYMBICORT) 160-4.5 MCG/ACT inhaler Inhale 2 puffs 2 (Two) Times a Day. Active QUEtiapine (SEROquel) 25 MG tablet Take 0.5 tablets by mouth Every Night. 30 tablet 1 08/28/20 25 Active apixaban (ELIQUIS) 2.5 MG tablet tablet Take 1 tablet by mouth 2 (Two) Times a Day. 08/28/20 25 Active gabapentin (NEURONTIN) 300 MG capsuleIndica tions:PAD (peripheral artery disease) Take 1 capsule by mouth 2 (Two) Times a Day With Meals. 08/28/20 25 Active HYDROcodone-a cetaminophen (NORCO) 5-325 MG per tabletIndicat ions:PAD (peripheral artery disease),Lora dication Take 1 tablet by mouth Every 4 (Four) Hours As Needed for Moderate Pain or Severe Pain. 18 tablet 08/28/20 25 Active tamsulosin (FLOMAX) 0.4 MG capsule 24 hr capsule Take 1 capsule by mouth Daily. 30 capsule 08/28/20 25 Active ferrous sulfate 325 (65 FE) MG tablet Take 1 tablet by mouth Every Other Day. 45 tablet 1 08/29/20 25 Active folic acid (FOLVITE) 1 MG tablet Take 1 tablet by mouth Daily. 90 tablet 1 08/29/20 25 Active memantine (NAMENDA) 5 MG tablet Take 1 tablet by mouth Daily. 30 tablet 2 08/28/20 25 Active naloxone (NARCAN) 4 MG/0.1ML nasal spray Call 911. Don't prime. [place] in 1 nostril for overdose. Repeat in 2-3 minutes in other nostril if no or minimal breathing/resp onsiveness. 2 each 08/28/20 25 Active apixaban (ELIQUIS) 2.5 MG tablet tablet Take 1 tablet by mouth 2 (Two) Times a Day. Was held since discharge on 07/25 due to plans for procedure; was given enoxaparin bridge instead 025 Discontinued gabapentin (NEURONTIN) 300 MG capsule Take 2 capsules by mouth 2 (Two) Times a Day With Meals. 025 Discontinued QUEtiapine (SEROquel) 25 MG tablet Take 0.5 (one-half) tablet by mouth Every 12 (Twelve) Hours As Needed for agitation and/or sleep 30 tablet 5 3:01 PM EDT 07/25/20 25 025 Discontinued(St op Taking at Discharge) enoxaparin sodium (LOVENOX) 60 MG/0.6ML solution prefilled syringe syringeIndica tions:DVT/PE (active thrombosis) Inject 0.5 mL under the skin into the appropriate area as directed every 12 hours for 10 days. *Dispose of remainder of syringe (0.1 mL) after each dose (SINGLE USE SYRINGES)* 12 mL 3:01 PM EDT 07/25/20 025 Discontinued(St op Taking at Discharge) HYDROcodone-a cetaminophen (NORCO) 10-325 MG per tabletIndicat ions:Critical limb ischemia of left lower extremity Take 1 tablet by mouth Every 6 (Six) Hours As Needed for Moderate Pain. 12 tablet 08/07/20 025 Discontinued(St op Taking at Discharge) tamsulosin (FLOMAX) 0.4 MG capsule 24 hr capsule Take 1 capsule by mouth Daily. 30 capsule 08/08/20 025 Discontinued tamsulosin (FLOMAX) 0.4 MG capsule 24 hr capsule Take 1 capsule by mouth Daily. 30 capsule 08/28/20 025 Discontinued ferrous sulfate 325 (65 FE) MG tablet Take 1 tablet by mouth Every Other Day. 45 tablet 1 08/29/20 025 Discontinued folic acid (FOLVITE) 1 MG tablet Take 1 tablet by mouth Daily. 90 tablet 1 08/29/20 025 Discontinued memantine (NAMENDA) 5 MG tablet Take 1 tablet by mouth Daily. 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 PAD (peripheral artery disease) 07/23/2025 Critical limb ischemia of left lower extremity 1 Type 2 diabetes mellitus wit h diabetic neuropathy, without long-term current use of insulin 07/23/2025 Primary hypertension 07/23/2025 Mild intermittent asthma without complication Presence of cardiac pacemaker 07/23/2025 Peripheral artery disease 07/23/2025 Encounters Date Type Department Care Team Description 08/29/2025 Readmission Management [facility] [address] [place] [phone] Susan Stroud, RN 08/28/2025 Readmission Management [facility] [address] [place] [address] Ashley Granado RN 08/23/2025 10:54 AM EST Anesthesia Event [facility] OR [address] [place] [address] Venkata Gallagher MD Arrington, Ashley B, CRNA 08/23/2025 10:05 AM EST Anesthesia Event Converted [facility] [address] [facility] [place] [address] 08/23/2025 10:00 AM EST Anesthesia Event Converted [facility] [address] [facility] [place] [address] 08/23/2025 9:57 AM EST - 08/23/2025 11:47 AM EST Surgery [facility] OR [address] [place] [address] Junior Zhao MD BELOW THE KNEE AMPUTATION LEFT 08/23/2025 9:35 AM EST Anesthesia Event Converted [facility] [address] [facility] [place] [address] 08/23/2025 8:57 AM EST - 08/28/2025 2:51 PM EST Hospital Encounter [facility] 4H [address] [place] [address] Junior Zhao MD Hamilton, Olivia D, DO Shields, Daniel Alan, DO Burgess, Eva, MD PAD (peripheral artery disease) (Primary Dx); Critical limb ischemia of left lower extremity; Toe necrosis; Type 2 diabetes mellitus with diabetic neuropathy, without long-term current use of insulin; Claudication Discharge Disposition: Home or Self Care 08/23/2025 Travel 08/22/2025 8:30 AM EST Pre-Admission Testing [facility] PREADMISSION T [address] [place] [address] 08/22/2025 Travel 08/02/2025 2:21 PM EDT Anesthesia Event [facility] OR [address] [place] [address] Shahana Patel MD 08/02/2025 2:00 PM EDT Anesthesia Event Converted [facility] [address] [facility] [place] [address] 08/02/2025 1:48 PM EDT - 08/02/2025 5:54 PM EDT Surgery [facility] OR [address] [place] [address] Junior Zhao MD FEMORAL POPLITEAL BYPASS 08/01/2025 Readmission Management [facility] [address] [place] [address] Carmelita Sparks, RN 07/31/2025 2:54 PM EDT - 08/07/2025 3:06 PM EDT Hospital Encounter [facility] 4G [address] [place] [address] Gregg Munoz MD Brown, Hannah, MD McIntosh, Matthew M, MD Hamilton, Olivia D, Critical limb ischemia of left lower extremity (Primary Dx); Claudication; Toe necrosis; Peripheral artery disease; Acute urinary retention Discharge Disposition: Home-Health Care [facility] 07/31/2025 Travel 07/29/2025 Readmission Management [facility] [address] [place] [address] Carmelita Sparks, RN 07/26/2025 Readmission Management [facility] [address] [place] [phone] Sienna Sheridan 07/23/2025 5:27 PM EDT - 07/25/2025 6:31 PM EDT Hospital Encounter [facility] 3E [address] [facility] [place] [address] Vipul Barney MD Butler, Jennifer, MD Gilbert, Meghan Carroll, Cellulitis of left foot (Primary Dx); Ischemic ulcer, unspecified ulcer stage; Peripheral artery disease; Critical limb ischemia of left lower extremity Discharge Disposition: Home or Self Care 07/23/2025 Travel from Last 3 Months Immunizations Immunization Administration Dates Next Due COVID-19 (PFIZER) Purple Cap Monovalent 11/21/19,11/01/2020 Social History Tobacco Use Types Packs/Day Years Used Date Smoking Tobacco: Never Smokeless Tobacco: Never Tobacco Cessation:Counseling Given: Not Answered Alcohol Use Standard Drinks/Week Comments Defer 0 [...] and heating? Patient unable to answer 08/01/2025 [facility] [...] living? Patient unable to answer 08/01/2025 [facility] Utilities Answer Date Recorded In the [...] Patient unable to answer 08/26/2025 Preferred Language Beninese 08/26/2025 PHQ-2 Answer Date Recorded Patient Health Questionnaire-2 Score 0 07/24/2025 Comments No Sex and Gender Information Value Date Recorded Sex Assigned at Not on file Legal Sex Female 4:32 PM EDT Gender Identity Not on file Sexual Orientation Not on file Last Filed Vital Signs Vital Sign Reading [...] Mass Index 20.03 08/23/2025 10:08 AM EST Plan of Treatment Upcoming Encounters Date Type Department Care Team (Late st Contact Info) Description 09/16/2025 10:30 AM EST Office Visit [facility] [address] [place], [place] [id number] Melissa Briceño APRN [address] [facility] [address] [place] [address] Health Maintenance Due Date Last Done Comments DXA SCAN 1941 DIABETIC EYE EXAM 1951 DIABETIC FOOT EXAM 1951 URINE MICROALBUMIN-CREATININE RATIO (uACR) 1951 Pneumococcal Vaccine 50+ (1 of 2 - PCV) 1960 TDAP/TD VACCINES (1 - Tdap) 1960 ZOSTER VACCINE (1 of 2) 1991 RSV Vaccine - Adults (1 - 1- dose 75+ series) 2016 COVID-19 Vaccine (3 - Pfizer risk series) 12/19/2020 11/21/2020, 11/01/2020 INFLUENZA VACCINE 05/17/2025 ANNUAL WELLNESS VISIT 08/19/2025 HEMOGLOBIN A1C 01/22/2026 07/24/2025 Medical Devices Implanted Type Area Chief Operator Synthesis Device Identifier Shelf Expiration Date Model / Serial / Lot Hemost Abs Surgicel Snow 1x2in - [id number] Implanted:Qt y: 1 on 08/02/2025 by Junior Zhao MD at [facility] Implant Left: Groin [employer] [id number] 01/14/2027 2081 / / [id number] Description:TOPICALLY APPLIE D Clipapplr M/ Endo Ligaclip 9 3/8in Sm - [id number] Implanted:Qt y: 1 on 08/02/2025 by Junior Zhao MD at [facility] Implant Left: Arterial [employer] [id number] 05/16/2030 [id number] / / [id number] Description:CLIPS USED Clipapplr M/ Endo Ligaclip9 3/8in Md - [id number] Implanted:Qt y: 1 on 08/02/2025 by Junior Zhao MD at [facility] Implant Left: Arterial [employer] J [id number] 05/16/2030 [id number] / / [id number] Description:CLIPS USED Grft Vasc Propat Thnstrch [id number] - [id number] - [id number] Implanted:Qt y: 1 on 08/02/2025 by Junior Zhao MD at [facility] Implant Left: Leg [employer] [id number] 04/22/2028 [id number] / [id number] / Description:Left SFA Hemost Abs Surgicel Snow 1x2in - [id number] Implanted:Qt y: 1 on 08/02/2025 by Junior Zhao MD at [facility] Implant Left: Leg [employer] Buck [employer] J 02/13/2026 2081 / / [id number] Pacemaker Pacemaker Heart Procedures Procedure Name Priority Date/Time Associated Diagnosis Comments POCT GLUCOSE FINGERSTICK Routine 08/28/2025 11:25 AM EST CBC (NO DIFF) Routine 08/28/2025 8:25 AM EST POCT GLUCOSE FINGERSTICK Routine 08/28/2025 7:21 AM EST POCT GLUCOSE FINGERSTICK Routine 08/27/2025 7:56 PM EST POCT GLUCOSE FINGERSTICK Routine 08/27/2025 4:44 PM EST BASIC METABOLIC PANEL Routine 08/27/2025 12:35 PM EST CBC (NO DIFF) Routine 08/27/2025 12:35 PM EST POCT GLUCOSE FINGERSTICK Routine 08/27/2025 11:28 AM EST POCT GLUCOSE FINGERSTICK Routine 08/27/2025 6:58 AM EST POCT GLUCOSE FINGERSTICK Routine 08/26/2025 7:18 PM EST POTASSIUM Timed 08/26/2025 6:52 PM EST POCT GLUCOSE FINGERSTICK Routine 08/26/2025 4:27 PM EST POCT GLUCOSE FINGERSTICK Routine 08/26/2025 11:37 AM EST PHOSPHORUS Routine 08/26/2025 8:03 AM EST BASIC METABOLIC PANEL Routine 08/26/2025 8:03 AM EST CBC (NO DIFF) Routine 08/26/2025 8:03 AM EST MAGNESIUM Routine 08/26/2025 8:03 AM EST VITAMIN B12 Routine 08/26/2025 8:03 AM EST FOLATE Routine 08/26/2025 8:03 AM EST POCT GLUCOSE FINGERSTICK Routine 08/26/2025 7:22 AM EST POCT GLUCOSE FINGERSTICK Routine 08/25/2025 7:47 PM EST POCT GLUCOSE FINGERSTICK Routine 08/25/2025 4:27 PM EST RETICULOCYTES Routine 08/25/2025 12:20 PM EST POCT GLUCOSE FINGERSTICK Routine 08/25/2025 12:06 PM EST POCT GLUCOSE FINGERSTICK Routine 08/25/2025 7:28 AM EST MAGNESIUM Add-On 08/25/2025 5:28 AM EST IRON PROFILE + FERRITIN Add-On 08/25/2025 5:28 AM EST CBC (NO DIFF) Routine 08/25/2025 5:28 AM EST BASIC METABOLIC PANEL Routine 08/25/2025 5:28 AM EST POCT GLUCOSE FINGERSTICK Routine 08/24/2025 7:55 PM EST POCT GLUCOSE FINGERSTICK Routine 08/24/2025 4:28 PM EST POCT GLUCOSE FINGERSTICK Routine 08/24/2025 11:32 AM EST POCT GLUCOSE FINGERSTICK Routine 08/24/2025 7:36 AM EST CBC AND DIFFERENTIAL Routine 08/24/2025 6:05 AM EST CBC WITH AUTO DIFFERENTIAL Routine 08/24/2025 6:05 AM EST BASIC [...] left lower extremity Toe necrosis Special Needs [facility] POCT GLUCOSE FINGERSTICK Routine 08/23/2025 10:03 AM EST ANESTHESIA PERIPHERAL BLOCK Routine 08/23/2025 9:56 AM EST ANESTHESIA PERIPHERAL BLOCK Routine 08/23/2025 9:55 AM EST PROTIME-INR Routine 08/22/2025 8:51 AM EST BASIC METABOLIC PANEL Routine 08/22/2025 8:51 AM EST CBC (NO DIFF) Routine 08/22/2025 8:51 AM EST CBC AND DIFFERENTIAL Routine 08/07/2025 6:48 AM EDT CBC WITH AUTO DIFFERENTIAL Routine 08/07/2025 6:48 AM EDT BASIC METABOLIC PANEL Routine 08/06/2025 10:56 AM EDT CBC (NO DIFF) Routine 08/06/2025 10:56 AM EDT HEPARIN ANTI XA Timed 08/05/2025 12:27 PM EDT CBC AND DIFFERENTIAL Routine 08/05/2025 4:32 AM EDT HEPARIN ANTI XA Timed 08/05/2025 4:32 AM EDT CBC WITH AUTO DIFFERENTIAL Routine 08/05/2025 4:32 AM EDT BASIC METABOLIC PANEL Routine 08/05/2025 4:32 AM EDT HEPARIN ANTI XA Timed 08/04/2025 9:18 PM EDT CBC AND DIFFERENTIAL Routine 08/04/2025 4:12 AM EDT CBC WITH AUTO DIFFERENTIAL Routine 08/04/2025 4:12 AM EDT PHOSPHORUS Routine 08/04/2025 4:12 AM EDT MAGNESIUM Routine 08/04/2025 4:12 AM EDT COMPREHENSIVE METABOLIC PANEL Routine 08/04/2025 4:12 AM EDT SCANNED - TELEMETRY 08/03/2025 1 1:08 PM EDT CBC AND DIFFERENTIAL Routine 08/03/2025 4:34 AM EDT CBC WITH AUTO DIFFERENTIAL Routine 08/03/2025 4:34 AM EDT BASIC METABOLIC PANEL Routine 08/03/2025 4:34 AM EDT SCANNED - TELEMETRY 08/02/2025 7 :05 PM EDT WOUND OSTOMY EVAL AND TREAT Routine 08/02/2025 6:33 PM EDT TISSUE PATHOLOGY EXAM Routine 08/02/2025 3:46 PM EDT Peripheral artery disease Critical limb ischemia of left lower extremity ANESTHESIA INTUBATION Routine 08/02/2025 2:36 PM EDT AMPUTATION BELOW KNEE 08/02/2025 2:10 PM EDT [...] assist for this case, FIRST JUMANA WALTER ANESTHESIA PERIPHERAL BLOCK Routine 08/02/2025 2:06 PM EDT TYPE AND SCREEN STAT 08/02/2025 1:30 PM EDT APTT Timed 08/02/2025 3:29 AM EDT APTT Routine 08/01/2025 7:44 PM EDT APTT STAT 08/01/2025 10:12 AM EDT CBC AND DIFFERENTIAL Routine 08/01/2025 7:23 AM EDT ABORH 2ND SPECIMEN VERIFICATION STAT 08/01/2025 7:23 AM EDT CBC WITH AUTO DIFFERENTIAL Routine 08/01/2025 7:23 AM EDT BASIC METABOLIC PANEL Routine 08/01/2025 7:23 AM EDT WOUND OSTOMY EVAL AND TREAT Routine 08/01/2025 6:26 AM EDT APTT Routine 07/31/2025 10:52 PM EDT SCANNED - TELEMETRY 07/31/2025 4 :36 PM EDT APTT STAT 07/31/2025 4:15 PM EDT PROTIME-INR STAT 07/31/2025 4:15 PM EDT HEPARIN ANTI XA STAT 07/31/2025 4:15 PM EDT SCANNED - TELEMETRY 07/31/2025 3 :10 PM EDT WHEATLEY TOP STAT 07/31/2025 2:37 PM EDT GOLD TOP - SST STAT 07/31/2025 2:37 PM EDT EXTRA TUBES STAT 07/31/2025 2:37 PM EDT DIGOXIN LEVEL STAT 07/31/2025 2:37 PM EDT C-REACTIVE PROTEIN STAT 07/31/2025 2: 37 PM EDT SEDIMENTATION RATE STAT 07/31/2025 2: 37 PM EDT COMPREHENSIVE METABOLIC PANEL STAT 07/31/2025 2:37 PM EDT CBC WITH AUTO DIFFERENTIAL STAT 07/31/2025 2:37 PM EDT POCT GLUCOSE FINGERSTICK Routine 07/25/2025 5:46 PM EDT CBC AND DIFFERENTIAL Routine 07/25/2025 5:17 PM EDT APTT Timed 07/25/2025 5:17 PM EDT CBC WITH AUTO DIFFERENTIAL Routine 07/25/2025 5:17 PM EDT RENAL FUNCTION PANEL Routine 07/25/2025 5:17 PM EDT MAGNESIUM Routine 07/25/2025 5:17 PM EDT POCT GLUCOSE [...] GLUCOSE FINGERSTICK Routine 07/24/2025 7:53 AM EDT TROPONIN Routine 07/24/2025 4:45 AM EDT APTT Timed 07/24/2025 4:45 AM EDT HEMOGLOBIN A1C Routine 07/24/2025 4:45 AM EDT LIPID PANEL Routine 07/24/2025 4:45 AM EDT PHOSPHORUS Routine 07/24/2025 4:45 AM EDT MAGNESIUM Routine 07/24/2025 4:45 AM EDT LACTIC ACID, PLASMA Routine 07/24/2025 4 :45 AM EDT CK Routine 07/24/2025 4:45 AM EDT DIGOXIN LEVEL Routine 07/24/2025 4:45 AM EDT COMPREHENSIVE METABOLIC PANEL Routine 07/24/2025 4:45 AM EDT CBC WITH AUTO DIFFERENTIAL Routine 07/24/2025 4:[address] ANGIOGRAM LOWER EXTREMITY BILATERAL STAT 07/23/2025 11:30 PM EDT WOUND OSTOMY EVAL AND TREAT Routine 07/23/2025 10:25 PM EDT APTT STAT 07/23/2025 10:00 PM EDT PROTIME-INR STAT 07/23/2025 10:00 PM EDT HEPARIN ANTI XA STAT 07/23/2025 10:00 PM EDT HIGH SENSITIVITIY [...] CULTURE STAT 07/23/2025 5:35 PM EDT CBC AND DIFFERENTIAL STAT 07/23/2025 5:32 PM EDT TROPONIN STAT 07/23/2025 5:32 PM EDT CBC WITH AUTO DIFFERENTIAL STAT 07/23/2025 5:32 PM EDT COMPREHENSIVE METABOLIC PANEL STAT 07/23/2025 5:32 PM EDT LACTIC ACID, PLASMA STAT 07/23/2025 5 :32 PM EDT from Last 3 Months Results * POC Glucose Once (08/28/2025 11:25 AM EST) Only the most recent of29 resultswithin the time period is included. Glucose 96 70 - 130 mg/dL 08/28/2025 11:41 AM EST [facility] Comment:Serial Number: [id number]: [id number] Blood 08/28/2025 11:2 5 AM EST 08/28/2025 11:41 AM EST Rowena Mancera MD POINT OF CARE TEST ORDERABLES Fi nal Result [facility]
[address] [place] [address], * (ABNORMAL) CBC (No Diff) (08/28/2025 8:25 AM EST) Only the most recent of6 resultswithin the time period is included. WBC 10.02 3.40 - 10.80 10*3/mm3 08/28/2025 9:33 AM EST [facility] RBC 2.86(L) 3.77 - 5.28 10*6/mm3 08/28/2025 9:33 AM [facility] Hemoglobin 7.8(L) 12.0 - 15.9 g/dL 08/28/2025 9:33 AM [facility] Hematocrit 25.5(L) 34.0 - 46.6 % 08/28/2025 9:33 AM [facility] MCV 89.2 79.0 - 97.0 fL 08/28/2025 9:33 AM [facility] MCH 27.3 26.6 - 33.0 pg 08/28/2025 9:33 AM [facility] MCHC 30.6(L) 31.5 - 35.7 g/dL 08/28/2025 9:33 AM [facility] RDW 13.6 12.3 - 15.4 % 08/28/2025 9:33 AM [facility] RDW-SD 43.8 37.0 - 54.0 fl 08/28/2025 9:33 AM EST [facility] MPV 9.3 6.0 - 12.0 fL 08/28/2025 9:33 AM EST [facility] Platelets 418 140 - 450 10*3/mm3 08/28/2025 9:33 AM EST [facility] Blood Venipuncture / Unknown 08/28/2025 8:25 AM EST 08/28/2025 9:21 AM EST Magali eJffery PA-C LAB BLOOD ORDERABLES F inal Result [facility]
[address] [place] [address], * (ABNORMAL) Basic Metabolic Panel (08/27/2025 12:35 PM EST) Only the most recent of9 resultswithin the time period is included. Glucose 130(H) 65 - 99 mg/dL 08/27/2025 2:14 PM [facility] BUN 18.0 8.0 - 23.0 mg/dL 08/27/2025 2:14 PM [facility] Creatinine 0.41(L) 0.57 - 1.00 mg/dL 08/27/2025 2:14 PM [facility] Sodium 137 136 - 145 mmol/L 08/27/2025 2:14 PM [facility] Potassium 4.7 3.5 - 5.2 mmol/L 08/27/2025 2:14 PM [facility] Chloride 105 98 - 107 mmol/L 08/27/2025 2:14 PM [facility] CO2 24.1 22.0 - 29.0 mmol/L 08/27/2025 2:14 PM [facility] Calcium 7.8(L) 8.6 - 10.5 mg/dL 08/27/2025 2:14 PM [facility] BUN/Creatinine Ratio 43.9(H) 7.0 - 25.0 08/27/2025 2:14 PM EST [facility] Anion Gap 7.9 5.0 - 15.0 mmol/L 08/27/2025 2:14 PM EST [facility] eGFR 97.2 >60.0 mL/min/1.7 3 08/27/2025 2:14 PM EST [facility] Blood Venipuncture / Unknown 08/27/2025 12:35 PM EST 08/27/2025 1:22 PM EST Narrative [facility] - 08/27/2025 2:14 PM EST GFR [...] PA-C LAB BLOOD ORDERABLES F inal Result [facility]
[address] [place] [address], * Potassium (08/26/2025 6:52 PM EST) Potassium 5.2 3.5 - 5.2 mmol/L 08/26/2025 7:20 PM EST [facility] Blood Venipuncture / Unknown 08/26/2025 6:52 PM EST 08/26/2025 7:00 PM EST Delbert Quesada DO LAB BLOOD ORDERABLES Ely l Result [facility]
[address] [place] [address], * Phosphorus (08/26/2025 8:03 AM EST) Only the most recent of3 resultswithin the time period is included. Phosphorus 2.6 2.5 - 4.5 mg/dL 08/26/2025 8:59 AM EST [facility] Blood Venipuncture / Unknown 08/26/2025 8:03 AM EST 08/26/2025 8:37 AM EST Magali BELLO-Arnoldo LAB BLOOD ORDERABLES F inal Result Performing Organization Address City/[facility]/ZIP Co de Phone Number [facility]
[address] [place] [address], * Magnesium (08/26/2025 8:03 AM EST) Only the most recent of5 resultswithin the time period is included. Magnesium 2.0 1.6 - 2.4 mg/dL 08/26/2025 9:05 AM EST [facility] Blood Venipuncture / Unknown 08/26/2025 8:03 AM EST 08/26/2025 8:37 AM EST Magali Jeffery PA-C LAB BLOOD ORDERABLES F inal Result Performing Organization Address City/[facility]/ZIP Co de Phone Number [facility]
[address] [place] [address], * Folate (08/26/2025 8:03 AM EST) Folate 6.55 4.78 - 24.20 ng/mL 08/26/2025 12:29 PM EST [facility] Blood Venipuncture / Unknown 08/26/2025 8:03 AM EST 08/26/2025 8:38 AM EST Narrative [facility] - 08/26/2025 12:29 PM EST Results may be falsely increased if patient taking Biotin. Magali BELLO-Arnoldo LAB BLOOD ORDERABLES F inal Result Performing Organization Address City/[facility]/ZIP Co de Phone Number [facility]
[address] [place] [address], * (ABNORMAL) Vitamin B12 (08/26/2025 8:03 AM EST) [facility] Vitamin B-12 1,062(H) 211 - 946 pg/mL 08/26/2025 12:29 PM EST [facility] Blood Venipuncture / Unknown 08/26/2025 8:03 AM EST 08/26/2025 8:38 AM EST Narrative [facility] - 08/26/2025 12:29 PM EST Results may be falsely increased if patient taking Biotin. Magali BELLO-C LAB BLOOD ORDERABLES F inal Result Performing Organization Address [facility] Co de Phone Number [facility]
[address] [place] [address], * (ABNORMAL) Reticulocytes (08/25/2025 12:20 PM EST) [facility] Reticulocyte % 2.11(H) 0.70 - 1.90 % 08/25/2025 12:46 PM EST [facility] Reticulocyte Absolute 0.0559 0.0200 - 0.1300 10*6/mm3 08/25/2025 12:46 PM EST [facility] Blood Venipuncture / Unknown 08/25/2025 12:20 PM EST 08/25/2025 12:43 PM EST Magali BELLO-C LAB BLOOD ORDERABLES F inal Result Performing Organization Address City/[facility]/ZIP Co de Phone Number [facility]
[address] [place] [address], [place] [phone] * (ABNORMAL) Iron Profile + Ferritin (08/25/2025 5:28 AM EST) [facility] Iron 11(L) 37 - 145 mcg/dL 08/25/2025 12:32 PM EST [facility] Iron Saturation (TSAT) 6(L) 20 - 50 % 08/25/2025 12:32 PM EST [facility] Transferrin 127(L) 200 - 360 mg/dL 08/25/2025 12:32 PM [facility] TIBC 189(L) 298 - 536 mcg/dL 08/25/2025 12:32 PM [facility] Ferritin 77.90 13.00 - 150.00 ng/mL 08/25/2025 12:32 PM [facility] Blood Venipuncture / Unknown 08/25/2025 5:28 AM EST 08/25/2025 6:36 AM EST [facility] - 08/25/2025 12:32 PM EST Results may be falsely decreased if patient taking Biotin. Magali Jeffery PA-C LAB BLOOD ORDERABLES F inal Result [facility]
[address] [place] [address], * (ABNORMAL) CBC Auto Differential (08/24/2025 6:05 AM EST) Only the most recent of10 resultswithin the time period is included. [facility] WBC 11.45(H) 3.40 - 10.80 10*3/mm3 08/24/2025 7:29 AM EST [facility] RBC 2.88(L) 3.77 - 5.28 10*6/mm3 08/24/2025 7:29 AM [facility] Hemoglobin 8.1(L) 12.0 - 15.9 g/dL 08/24/2025 7:29 AM [facility] Hematocrit 26.0(L) 34.0 - 46.6 % 08/24/2025 7:29 AM [facility] MCV 90.3 79.0 - 97.0 fL 08/24/2025 7:29 AM [facility] MCH 28.1 26.6 - 33.0 pg 08/24/2025 7:29 AM [facility] MCHC 31.2(L) 31.5 - 35.7 g/dL 08/24/2025 7:29 AM [facility] RDW 13.2 12.3 - 15.4 % 08/24/2025 7:29 AM [facility] RDW-SD 43.7 37.0 - 54.0 fl 08/24/2025 7:29 AM [facility] MPV 9.2 6.0 - 12.0 fL 08/24/2025 7:29 AM [facility] Platelets 407 140 - 450 10*3/mm3 08/24/2025 7:29 AM [facility] Neutrophil % 68.4 42.7 - 76.0 % 08/24/2025 7:29 AM [facility] Lymphocyte % 17.0(L) 19.6 - 45.3 % 08/24/2025 7:29 AM [facility] Monocyte % 12.0 5.0 - 12.0 % 08/24/2025 7:29 AM [facility] Eosinophil % 1.7 0.3 - 6.2 % 08/24/2025 7:29 AM [facility] Basophil % 0.3 0.0 - 1.5 % 08/24/2025 7:29 AM [facility] Immature Grans % 0.6(H) 0.0 - 0.5 % 08/24/2025 7:29 AM [facility] Neutrophils, Absolute 7.83(H) 1.70 - 7.00 10*3/mm3 08/24/2025 7:29 AM [facility] Lymphocytes, Absolute 1.95 0.70 - 3.10 10*3/mm3 08/24/2025 7:29 AM [facility] Monocytes, Absolute 1.37(H) 0.10 - 0.90 10*3/mm3 08/24/2025 7:29 AM EST [facility] Eosinophils, Absolute 0.20 0.00 - 0.40 10*3/mm3 08/24/2025 7:29 AM EST [facility] Basophils, Absolute 0.03 0.00 - 0.20 10*3/mm3 08/24/2025 7:29 AM EST [facility] Immature Grans, Absolute 0.07(H) 0.00 - 0.05 10*3/mm3 08/24/2025 7:29 AM EST [facility] nRBC 0.0 0.0 - 0.2 /100 WBC 08/24/2025 7:29 AM EST [facility] Blood Venipuncture / Unknown 08/24/2025 6:05 AM EST 08/24/2025 6:58 AM EST Junior Pavel CHRISTINE LAB BLOOD ORDERABLES Final Res ult [facility]
[address] [place] [address], * Tissue Pathology Exam (08/23/2025 11:30 AM EST) Only the most recent of2 resultswithin the time period is included. Case Report Surgical Pathology Report Case: [id number] Authorizing Provider: Junior Zhao MD Collected: 08/23/2025 11:30 AM Ordering Location: [facility] Received: 08/23/2025 01:01 PM OR Pathologist: Daniel Resendez MD Specimen: Knee, Left, LEFT BELOW THE KNEE AMPUTATION 08/27/2025 1:08 PM EST [facility] Clinical Information Critical limb ischemia of left lower extremity Toe necrosis 08/27/2025 1:08 PM EST [facility] Final Diagnosis LEFT BELOW THE KNEE AMPUTATION: Ulcerated and necrotic skin and subcutaneous tissue Underlying bone with osteonecrosis Negative for specific microorganisms Negative for dysplasia or malignancy Benign viable surgical resection margin 08/27/2025 1:08 PM [facility] at 1308 EST Gross Description 1. [...] site reveals dusky discoloration and possible softening. 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 LDP 08/27/2025 1:08 PM [facility] Microscopic Description The slides are reviewed and demonstrate histopathologic features supporting the above rendered diagnosis. 08/27/2025 1:08 PM [facility] Tissue Structure of left knee region / Unknown 08/23/2025 11:30 AM EST 08/23/2025 1:01 PM EST us Marlon Univers MD PATHOLOGY/CYTOLOGY ORDERABLES Final Result [facility]
[address] [place] [address], * BH AN PERIPHERAL BLOCK CATHETER (08/23/2025 9:56 AM EST) Only the most recent of3 resultswithin the time period is included. Narrative Roscoe Storm CRNA - 08/23/2025 9:56 AM EST Roscoe Storm CRNA 08/23/2025 10:50 AM Peripheral Block Patient reassessed immediately prior to procedure Patient location during procedure: pre-op Reason for block: at surgeon's request and post-op pain management Performed by YENIFER/CAA: Roscoe Storm, YENIFER Assisted by: Saba Hankins RN Preanesthetic Checklist Completed: patient identified, [...] Performed by: Roscoe Storm, YENIFER Roscoe Storm PRODUCTION TEAM ADVISOR ANESTHESIA ORDERABLES Edited Re sult - Final * (ABNORMAL) Protime-INR (08/22/2025 8:51 AM EST) Only the most recent of3 resultswithin the time period is included. Protime 16.3(H) 12.2 - 15.3 Seconds 08/22/2025 10:11 AM EST [facility] INR 1.23(H) 0.89 - 1.12 08/22/2025 10:11 AM EST [facility] Blood Venipuncture / Unknown 08/22/2025 8:51 AM EST 08/22/2025 9:06 AM EST Junior Pavel CHRISTINE LAB BLOOD ORDERABLES Final Res ult [facility]
[address] [place] [address], * (ABNORMAL) Heparin Anti-Xa (08/05/2025 12:27 PM EDT) Only the most recent of5 resultswithin the time period is included. Heparin Anti-Xa (UFH) 0.10(L) 0.30 - 0.70 IU/ml 08/05/2025 1:39 PM EDT [facility] Blood Venipuncture / Unknown 08/05/2025 12:27 PM EDT 08/05/2025 1:08 PM EDT Ulises Bonilla [facility] LAB BLOOD ORDERABLES Final Res ult [facility]
[address] [place] [address], * (ABNORMAL) Comprehensive Metabolic Panel (08/04/2025 4:12 AM EDT) Only the most recent of4 resultswithin the time period is included. Pathologist [facility] Glucose 90 65 - 99 mg/dL 08/04/2025 5:01 AM EDT [facility] BUN 10.1 8.0 - 23.0 mg/dL 08/04/2025 5:01 AM EDT [facility] Creatinine 0.57 0.57 - 1.00 mg/dL 08/04/2025 5:01 AM EDT [facility] Sodium 134(L) 136 - 145 mmol/L 08/04/2025 5:01 AM EDT [facility] Potassium 4.4 3.5 - 5.2 mmol/L 08/04/2025 5:01 AM EDT [facility] Chloride 99 98 - 107 mmol/L 08/04/2025 5:01 AM EDT [facility] CO2 27.2 22.0 - 29.0 mmol/L 08/04/2025 5:01 AM EDT [facility] Calcium 8.2(L) 8.6 - 10.5 mg/dL 08/04/2025 5:01 AM EDT [facility] Total Protein 5.2(L) 6.0 - 8.5 g/dL 08/04/2025 5:01 AM [facility] Albumin 2.8(L) 3.5 - 5.2 g/dL 08/04/2025 5:01 AM [facility] ALT (SGPT) 15 1 - 33 U/L 08/04/2025 5:01 AM [facility] AST (SGOT) 27 1 - 32 U/L 08/04/2025 5:01 AM [facility] Alkaline Phosphatase 49 39 - 117 U/L 08/04/2025 5:01 AM [facility] Total Bilirubin 0.2 0.0 - 1.2 mg/dL 08/04/2025 5:01 AM [facility] Globulin 2.4 gm/dL 08/04/2025 5:01 AM [facility] Comment:Calculated Result A/G Ratio 1.2 g/dL 08/04/2025 5:01 AM [facility] BUN/Creatinine Ratio 17.7 7.0 - 25.0 08/04/2025 5:01 AM [facility] Anion Gap 7.8 5.0 - 15.0 mmol/L 08/04/2025 5:01 AM [facility] eGFR 89.7 >60.0 mL/min/1.7 3 08/04/2025 5:01 AM [facility] Blood Structure of left upper limb / Unknown Venipuncture / Unknown 08/04/2025 4:12 AM EDT 08/04/2025 4:32 AM [facility] - 08/04/2025 5:01 AM EDT GFR [...] MD LAB BLOOD ORDERABLES F inal Result [facility]
[address] [place] [address], [place] [phone] * Telemetry Scan (08/03/2025 11:08 PM EDT) Only the most recent of6 resultswithin the time period is included. [facility] Onbase ECG ORDERABLES Final Result * BH AN ETT AIRWAY (08/02/2025 2:36 PM EDT) Shivani Stewart CRNA - 08/02/2025 2:36 PM EDT Shivani Hogue CRNA 08/02/2025 2:37 PM Airway Reason: elective Date/Time: 08/02/2025 2:25 PM Airway not difficult General Information and Staff Patient location during procedure: OR PRODUCTION TEAM ADVISOR/CAA: Shivani Hogue CRNA Indications and Patient Condition [...] CRNA ANESTHESIA ORDERABLES Fin al Result * Type & Screen (08/02/2025 1:30 PM EDT) ABO Type O 08/02/2025 2:31 PM EDT [facility] RH type Positive 08/02/2025 2:31 PM EDT [facility] Antibody Screen Negative 08/02/2025 2:31 PM EDT [facility] T&S Expiration Date 08/05/2025 11:59:59 PM 08/02/2025 2:31 PM EDT [facility] Blood 08/02/2025 1:30 PM EDT 08/02/2025 1:38 PM EDT Parker Bryan MD BLOOD BANK TEST ORDERABLES Ed ited Result - Final Performing Organization Address [facility] de Phone Number [facility]
[address] [place] [address], * (ABNORMAL) aPTT (08/02/2025 3:29 AM EDT) Only the most recent of10 resultswithin the time period is included. Pathologist [facility] PTT 57.1(L) 60.0 - 90.0 seconds 08/02/2025 6:14 AM EDT [facility] Blood Venipuncture / Unknown 08/02/2025 3:29 AM EDT 08/02/2025 5:58 AM EDT Narrative [facility] - 08/02/2025 6:14 AM EDT PTT = The equivalent PTT values for the therapeutic range of heparin levels at 0.3 to 0.5 U/ml are 60 to 70 seconds. Ulises Bonilla [facility] LAB BLOOD ORDERABLES Final Res ult Performing Organization Address City/[facility]/ZIP Co de Phone Number [facility]
[address] [place] [address], [place] [phone] * ABO RH Specimen Verification (08/01/2025 7:23 AM EDT) ABO Type O 08/02/2025 2:47 PM EDT [facility] RH type Positive 08/02/2025 2:47 PM EDT [facility] Blood Venipuncture / Unknown 08/01/2025 7:23 AM EDT 08/02/2025 1:54 PM EDT us Yoli Moreira MD BLOOD BANK TEST ORDERABLES Final Result Performing Organization Address City/[facility]/ZIP Co de Phone Number [facility]
[address] [place] [address], [place] [phone] * Wheatley Top (07/31/2025 2:37 PM EDT) Extra Tube Hold for add-ons. 07/31/2025 3:01 PM EDT [facility] Comment:Auto resulted. Blood Line / Unknown 07/31/2025 2: 37 PM EDT 07/31/2025 2:52 PM EDT Gregg Munoz MD LAB BLOOD ORDER ONLY Ely l Result Performing Organization Address [facility] Co de Phone Number [facility]
[address] [place] [address], [place] [phone] * Gold Top - SST (07/31/2025 2:37 PM EDT) Extra Tube Hold for add-ons. 07/31/2025 3:01 PM EDT [facility] Comment:Auto resulted. Blood Line / Unknown 07/31/2025 2: 37 PM EDT 07/31/2025 2:52 PM EDT Gregg Munoz MD LAB BLOOD ORDER ONLY Ely l Result Performing Organization Address City/[facility] Co de Phone Number [facility]
[address] [place] [address], [place] [phone] * (ABNORMAL) Sedimentation Rate (07/31/2025 2:37 PM EDT) Sed Rate 73(H) 0 - 30 mm/hr 07/31/2025 2:57 PM EDT [facility] Blood Venipuncture / Unknown 07/31/2025 2:37 PM EDT 07/31/2025 2:48 PM EDT Gregg Munoz MD LAB BLOOD ORDERABLES Ely l Result Performing Organization Address City/[facility]/ZIP Co de Phone Number [facility]
[address] [place] [address], * (ABNORMAL) C-reactive Protein (07/31/2025 2:37 PM EDT) Pathologist [facility] C-Reactive Protein 2.78(H) 0.00 - 0.50 mg/dL 07/31/2025 3:23 PM EDT [facility] Blood Venipuncture / Unknown 07/31/2025 2:37 PM EDT 07/31/2025 2:48 PM EDT Gregg Munoz MD LAB BLOOD ORDERABLES Ely l Result Performing Organization Address City/[facility]/ZIP Co de Phone Number [facility]
[address] [place] [address], * Digoxin Level (07/31/2025 2:37 PM EDT) Only the most recent of2 resultswithin the time period is included. Digoxin 1.12 0.60 - 1.20 ng/mL 07/31/2025 3:23 PM EDT [facility] Blood Venipuncture / Unknown 07/31/2025 2:37 PM EDT 07/31/2025 2:48 PM EDT Narrative [facility] - 07/31/2025 3:23 PM EDT Results may be falsely increased if patient taking Biotin. us Gregg Munoz MD LAB BLOOD ORDERABLES Ely coelho Result [facility]
[address] [place] [address], * (ABNORMAL) Renal Function Panel (07/25/2025 5:17 PM EDT) [facility] Glucose 83 65 - 99 mg/dL 07/25/2025 5:59 PM EDT [facility] BUN 5.9(L) 8.0 - 23.0 mg/dL 07/25/2025 5:59 PM EDT [facility] Creatinine 0.53(L) 0.57 - 1.00 mg/dL 07/25/2025 5:59 PM EDT [facility] Sodium 133(L) 136 - 145 mmol/L 07/25/2025 5:59 PM EDT [facility] Potassium 4.5 3.5 - 5.2 mmol/L 07/25/2025 5:59 PM EDT [facility] Chloride 99 98 - 107 mmol/L 07/25/2025 5:59 PM EDT [facility] CO2 29.7(H) 22.0 - 29.0 mmol/L 07/25/2025 5:59 PM EDT [facility] Calcium 8.5(L) 8.6 - 10.5 mg/dL 07/25/2025 5:59 PM EDT [facility] Albumin 3.2(L) 3.5 - 5.2 g/dL 07/25/2025 5:59 PM EDT [facility] Phosphorus 3.2 2.5 - 4.5 mg/dL 07/25/2025 5:59 PM EDT [facility] Anion Gap 4.3(L) 5.0 - 15.0 mmol/L 07/25/2025 5:59 PM EDT [facility] BUN/Creatinine Ratio 11.1 7.0 - 25.0 07/25/2025 5:59 PM EDT [facility] eGFR 91.3 >60.0 mL/min/1.7 3 07/25/2025 5:59 PM EDT [facility] Blood Venipuncture / Unknown 07/25/2025 5:17 PM EDT 07/25/2025 5:32 PM EDT Narrative [facility] - 07/25/2025 5:59 PM EDT GFR [...] DO LAB BLOOD ORDERABLES F inal Result [facility]
[address] [place] [address], * (ABNORMAL) Urinalysis, Microscopic Only - Urine, Clean Catch (07/24/2025 10:03 PM EDT) RBC, UA None Seen None Seen, 0-2 /HPF 07/24/2025 10:21 PM EDT [facility] WBC, UA 6-10(A) None Seen, 0-2 /HPF 07/24/2025 10:21 PM EDT [facility] Bacteria, UA None Seen None Seen /HPF 07/24/2025 10:21 PM EDT [facility] Squamous Epithelial Cells, UA 0-2 None Seen, 0-2 /HPF 07/24/2025 10:21 PM EDT [facility] Hyaline Casts, UA None Seen None Seen /LPF 07/24/2025 10:21 PM EDT [facility] Methodology Automated Microscopy 07/24/2025 10:21 PM EDT [facility] Urine Urine specimen obtained by clean catch procedure / Unknown Collection / Unknown 07/24/2025 10:03 PM EDT 07/24/2025 10:15 PM EDT Amada Ibrahim MD URINE ORDERABLES Final Result [facility]
[address] [place] [address], * (ABNORMAL) Urinalysis With Microscopic If Indicated (No Culture) - Urine, Clean Catch (07/24/2025 10:03 PM EDT) Color, UA Yellow Yellow, Straw 07/24/2025 10:21 PM EDT [facility] Appearance, UA Cloudy(A) Clear 07/24/2025 10:21 PM EDT [facility] pH, UA <=5.0 5.0 - 8.0 07/24/2025 10:21 PM EDT [facility] Specific [place], UA 1.022 1.005 - 1.030 07/24/2025 10:21 PM EDT [facility] Glucose, UA Negative Negative 07/24/2025 10:21 PM EDT [facility] Ketones, UA Negative Negative 07/24/2025 10:21 PM EDT [facility] Bilirubin, UA Negative Negative 07/24/2025 10:21 PM EDT [facility] Blood, UA Negative Negative 07/24/2025 10:21 PM EDT [facility] Protein, UA Negative Negative 07/24/2025 10:21 PM EDT [facility] Leuk Esterase, UA Small (1+)(A) Negative 07/24/2025 10:21 PM EDT [facility] Nitrite, UA Negative Negative 07/24/2025 10:21 PM EDT [facility] Urobilinogen, UA 1.0 E.U./dL 0.2 - 1.0 E.U./dL 07/24/2025 10:21 PM EDT [facility] Urine Urine specimen obtained by clean catch procedure / Unknown Collection / Unknown 07/24/2025 10:03 PM EDT 07/24/2025 10:15 PM EDT Amada Ibrahim MD URINE ORDERABLES Final Result Performing Organization Address [facility] Co de Phone Number [facility]
[address] [place] [address], * (ABNORMAL) MRSA Screen, PCR (Inpatient) - Swab, Nares (07/24/2025 8:55 PM EDT) Pathologist [facility] MRSA PCR Positive(A ) Negative CEPHEID GENEXPERT 07/25/2025 8:09 AM EDT [facility] Swab Structure of anterior naris / Unknown Collection / Unknown 07/24/2025 8:55 PM EDT 07/24/2025 9:16 PM EDT Narrative [facility] - 07/25/2025 8:09 AM EDT The negative predictive value of this diagnostic test is high and should only be used to consider de-escalating anti-MRSA therapy. A positive result may indicate colonization with MRSA and must be correlated clinically. Randy Mathis PharmD MICROBIOLOGY - GENERAL ORDERABLES Final Result Performing Organization Address City/[facility] Co de Phone Number [facility]
[address] [place] [address], * DUPLEX LOWER EXTREMITY ART/GRAFTS LEFT CAR - COR/REGI/MAD (07/24/2025 9:21 AM EDT) Pathologist [facility] DEPUTY PROGRAM MANAGER Distal PSV-Left 55.22 cm/s DEPUTY PROGRAM MANAGER Distal EDV-Left 15.23 cm/s DFA Prox PSV-Left [...] Ant Tibial A Distal EDV-Left 5.80 cm/s GEAR FINISHER Prox PSV-Left 0.00 cm/s GEAR FINISHER Mid PSV-Left 0.00 cm/s GEAR FINISHER Distal PSV-Left 0.00 cm/s Peroneal Mid PSV-Left 0.00 cm/s Left groin DEPUTY PROGRAM MANAGER sys 55.2 cm/sec Anatomical Region Laterality Modality [...] distal, Pop A proximal, Pop A distal, GEAR FINISHER proximal, GEAR FINISHER mid, GEAR FINISHER distal, and Neelima A mid had absent [...] positioning and Pain Intolerance. Amada Ibrahim MD CV VASCULAR ORDERABLES Final Result * (ABNORMAL) High Sensitivity Troponin T (07/24/2025 4:45 AM EDT) Only the most recent of2 resultswithin the time period is included. HS Troponin T 23(H) <14 ng/L 07/24/2025 5:25 AM EDT [facility] Blood Venipuncture / Unknown 07/24/2025 4:45 AM EDT 07/24/2025 4:50 AM EDT Narrative [facility] - 07/24/2025 5:25 AM EDT High [...] MD LAB BLOOD ORDERABLES Final Re sult [facility]
[address] [place] [address], * Lactic Acid, Plasma (07/24/2025 4:45 AM EDT) Only the most recent of2 resultswithin the time period is included. Lactate 0.6 0.5 - 2.0 mmol/L 07/24/2025 5:17 AM EDT [facility] Comment:Falsely depressed re sults may occur on samples drawn from patients receiving N-Acetylcysteine (NAC) or Metamizole. Blood Venipuncture / Unknown 07/24/2025 4:45 AM EDT 07/24/2025 4:50 AM EDT Amada Ibrahim MD LAB BLOOD ORDERABLES Final Re sult Performing Organization Address [facility] Co de Phone Number [facility]
[address] [place] [address], * (ABNORMAL) Hemoglobin A1c (07/24/2025 4:45 AM EDT) Hemoglobin A1C 6.03(H) 4.80 - 5.60 % 07/24/2025 5:45 AM EDT [facility] Blood Venipuncture / Unknown 07/24/2025 4:45 AM EDT 07/24/2025 4:51 AM EDT Narrative [facility] - 07/24/2025 5:45 AM EDT Hemoglobin A1C Ranges: Increased Risk for Diabetes 5.7% to 6.4% Diabetes >= 6.5% Diabetic Goal < 7.0% Amada Ibrahim MD LAB BLOOD ORDERABLES Final Re sult Performing Organization Address [facility]/ZIP Co de Phone Number [facility]
[address] [place] [address], * CK (07/24/2025 4:45 AM EDT) Creatine Kinase 61 20 - 180 U/L 07/24/2025 5:25 AM EDT [facility] Blood Venipuncture / Unknown 07/24/2025 4:45 AM EDT 07/24/2025 4:50 AM EDT Amada Ibrahim MD LAB BLOOD ORDERABLES Final Re sult [facility]
[address] [place] [address], * Lipid Panel (07/24/2025 4:45 AM EDT) Total Cholesterol 105 0 - 200 mg/dL 07/24/2025 5:25 AM EDT [facility] Triglycerides 65 0 - 150 mg/dL 07/24/2025 5:25 AM EDT [facility] HDL Cholesterol 50 40 - 60 mg/dL 07/24/2025 5:25 AM EDT [facility] LDL Cholesterol 41 0 - 100 mg/dL 07/24/2025 5:25 AM EDT [facility] VLDL Cholesterol 14 5 - 40 mg/dL 07/24/2025 5:25 AM EDT [facility] LDL/HDL Ratio 0.84 07/24/2025 5:25 AM EDT [facility] Blood Venipuncture / Unknown 07/24/2025 4:45 AM EDT 07/24/2025 4:50 AM EDT Narrative [facility] - 07/24/2025 5:25 AM EDT Cholesterol [...] MD LAB BLOOD ORDERABLES Final Re sult [facility]
[address] [place] [id number], * CT Angiogram Lower Extremity Bilateral (07/23/2025 [...] MD 07/23/2025 11:58 PM EDT Workstation ID: [id number] Narrative 07/23/2025 11:[address] ANGIOGRAM [...] MD 07/23/2025 11:58 PM EDT Workstation ID: [id number] Amada Ibrahim MD IMG CT ORDERABLES Final Resul t * (ABNORMAL) High Sensitivity Troponin T 1Hr (07/23/2025 7:54 PM EDT) HS Troponin T 21(H) <14 ng/L 07/23/2025 8:19 PM EDT [facility] Troponin T Numeric Delta -5 ng/L 07/23/2025 8:19 PM EDT [facility] Troponin T % Delta -19 Abnormal if >/= 20% 07/23/2025 8:19 PM EDT [facility] Blood Venipuncture / Unknown 07/23/2025 7:54 PM EDT 07/23/2025 7:57 PM EDT [facility] LABORATORY - 07/23/2025 8:19 PM EDT High [...] MD LAB BLOOD ORDERABLES Ely l Result [facility]
[id number] [place] [address], * CT Lower Extremity Left Without Contrast [...] DO 07/23/2025 8:07 PM EDT Workstation ID: [id number] Narrative 07/23/2025 8:[address] LOWER [...] DO 07/23/2025 8:07 PM EDT Workstation ID: [id number] [facility] Armand Barney MD [facility] [place] CT ORDERABLES Final R esult * ECG [...] By: jorge christine Confirmed By: VIPUL BARNEY Procedure Note Vipul Barney MD - [...] MD 07/23/2025 6:13 PM EDT Workstation ID: [id number] Narrative 07/23/2025 6:13 PM EDT XR CHEST [...] MD 07/23/2025 6:13 PM EDT Workstation ID: [id number] Vipul Barney MD IMG DIAGNOSTIC IMAGING OR DERABLES Final Result * XR Foot 3+ View Left (07/23/2025 5:48 PM EDT) Anatomical Region Laterality Modality Lower Extremities, Foot Left [facility] 07/23/2025 5:50 PM EDT Impressions 07/23/2025 5:52 PM EDT 1. No acute fracture or posttraumatic subluxation identified. Electronically Signed: Hay Saldana MD 07/23/2025 5:52 PM EDT Workstation ID: [id number] Narrative 07/23/2025 5:52 PM EDT XR FOOT [...] MD 07/23/2025 5:52 PM EDT Workstation ID: [id number] Vipul Barney MD IMG DIAGNOSTIC IMAGING OR DERABLES Final Result * Blood Culture - Blood, Arm, Left (07/23/2025 5:45 PM EDT) Only the most recent of2 resultswithin the time period is included. Blood Culture No growth at 5 days 07/28/2025 7:46 PM EDT [facility] Blood Structure of left upper limb / Unknown Venipuncture / Unknown 07/23/2025 5:45 PM EDT 07/23/2025 7:44 PM EDT Narrative [facility] - 07/28/2025 7:46 PM EDT Less than seven (7) mL's of blood was collected. Insufficient quantity may yield false negative results. Vipul Barney MD MICROBIOLOGY - GENERAL OR DERABLES Final Result [facility]
[address] [place] [address], from Last 3 Months Additional Health Concerns Infection Onset Date Last Indicated MRSA 07/24/2025 07/24/2025 Insurance [employer] PPO Advance Directives * CPR (Attempt to Resuscitate) (Latest Code Status on File) Date Activated Date Inactivated Comments 08/23/2025 6:19 PM 08/28/2025 4:57 PM Question Answer Comments Code Status (Patient has no pulse and is not breathing): CPR (Attempt to Resuscitate) Medical Interventions (Patie nt has pulse or is breathing): Full Support Level Of Support Discussed With: PatientNext of Kin (If No Surrogate) * CPR (Attempt to Resuscitate) Date Activated Date Inactivated Comments 07/31/2025 3:38 PM 08/07/2025 5:16 PM Question Answer Comments Code Status (Patient has no pulse and is not breathing): CPR (Attempt to Resuscitate) Medical Interventions (Patie nt has pulse or is breathing): Full Support Level Of Support Discussed With: Patient * CPR (Attempt to Resuscitate) Date Activated Date Inactivated Comments 07/23/2025 10:25 PM 07/25/2025 8:37 PM Question Answer Comments Code Status (Patient has no pulse and is not breathing): CPR (Attempt to Resuscitate) Medical Interventions (Patie nt has pulse or is breathing): Full Support Level Of Support Discussed With: Patient Care Teams Supervisor Grading Relationship Specialty Start Date End Date Alexis Montanez MD [address] [facility] [address] [place] [address] PCP - General Family Medicine 07/23/25
[2025-09-01 16:25] LABS: Microscopic, Urine URINE MICROSCOPIC (MICROSCOPIC)
--- OUTSIDE RECORDS SUMMARY | 2025-09-01 16:25 | XMS_ITS | Encounter Summary ---
[facility] Address [address] [place] [address] Care Team Providers Care Prosthetic Technician Name Role Phone Alexis Montanez MD Primary Care Provider [phone] Encounter Details Date Type Department Care Team (Late st Contact Info) Description 07/26/2025 Readmission Management [facility] [address] [place] [phone] Sienna Sheridan Social History Tobacco Use Types Packs/Day Years Used Date Smoking Tobacco: Never Smokeless Tobacco: Never Alcohol Use Standard Drinks/Week Comments Never 0 (1 standard drink = 0.6 oz pur e alcohol) [facility] Utilities Answer Date Recorded In the past 12 months has [employer], gas, oil, or water [employer] threatened to shut off services in your [...] care, and heating? Not very hard 07/24/2025 Sri Lankan [place] of Occupat ional Health - Occupational Stress [...] GED or equivalent No 07/24/2025 Preferred Language Libyan 07/24/2025 PHQ-2 Answer Date Recorded Patient Health Questionnaire-2 Score 0 07/24/2025 Comments Unknown Sex and Gender Information Value Date Recorded Sex Assigned at Not on file Legal Sex Female 4:32 PM EDT Gender Identity Not on file Sexual Orientation Not on file documented as of this encounter Miscellaneous Notes * Outreach Note - Sienna Sheridan - 07/26/2025 6:45 AM EDT Prep Survey Flowsheet Row Responses [facility] patient discharged from? [place] Is LACE score less than 10 ? No Eligibility Readm Mgmt Discharge diagnosis Critical limb ischemia of left lower extremity Does the patient have one of the following disease processes/diagnoses(primary or secondary)? Other Does the patient have Home health ordered? No Is there a DME ordered? No Prep survey completed? Yes Sienna M - Coordinator documented in this encounter Plan of Treatment Upcoming Encounters Date Type Department Care Team (Late st Contact Info) Description 09/16/2025 10:30 AM EST Office Visit [facility] UROLOGY [address] [place] [address] Melissa Briceño APRN [address] [facility] [address] [place] [address] documented as of this encounter Visit Diagnoses Not on filedocumented in this encounter Additional Health Concerns Infection Onset Date Last Indicated Resolved Time MRSA 07/24/2025 07/24/2025 documented as of this encounter Care Teams Prosthetic Technician Relationship Specialty Start Date End Date Alexis Montanez MD [address] [facility] [address] [place] [address] PCP - General Family Medicine 07/23/25 documented as of this encounter
--- OUTSIDE RECORDS SUMMARY | 2025-09-01 16:25 | XMS_ITS | Encounter Summary ---
[facility] Organization [facility] Address [address] [place] [address] Care Team Providers Care Senior Information Security Architect Name Role Phone Alexis Montanez MD Primary Care Provider [phone] Encounter Details Date Type Department Care Team (Late st Contact Info) Description 07/29/2025 Readmission Management [facility] [address] [place] [phone] Carmelita Sparks, RN Social History Tobacco Use Types Packs/Day Years Used Date Smoking Tobacco: Never Smokeless Tobacco: Never Alcohol Use Standard Drinks/Week Comments Never 0 (1 standard drink = 0.6 oz pur e alcohol) [facility] Utilities Answer Date Recorded In the past 12 months has [employer], gas, oil, or water [employer] threatened to shut off services in your [...] care, and heating? Not very hard 07/24/2025 [place]i [place] of Occupat ional Health - Occupational [...] GED or equivalent No 07/24/2025 Preferred Language Tanzanian 07/24/2025 PHQ-2 Answer Date Recorded Patient Health Questionnaire-2 Score 0 07/24/2025 Comments Unknown Sex and Gender Information Value Date Recorded Sex Assigned at Not on file Legal Sex Female 4:32 PM EDT Gender Identity Not on file Sexual Orientation Not on file documented as of this encounter Miscellaneous Notes * Outreach Note - Carmelita Sparks, RN - 07/29/2025 2:35 PM EDT Medical Week 1 Survey Flowsheet Row Responses [facility] patient discharged from? [place] Does the patient have one of the following disease processes/diagnoses(primary or secondary)? Other Week 1 attempt successful? No Unsuccessful attempts Attempt 1 Carmelita Guido - Registered Nurse documented in this encounter Plan of Treatment Upcoming Encounters Date Type Department Care Team (Late st Contact Info) Description 09/16/2025 10:30 AM EST Office Visit [facility] [address] [place] [address] Melissa Briceño APRN [address] [facility] [address] [place] [address] documented as of this encounter Visit Diagnoses Not on filedocumented in this encounter Additional Health Concerns Infection Onset Date Last Indicated Resolved Time MRSA 07/24/2025 07/24/2025 documented as of this encounter Care Teams Senior Information Security Architect Relationship Specialty Start Date End Date Alexis Montanez MD [address] [facility] [address] [place] [address] PCP - General Family Medicine 07/23/25 documented as of this encounter
--- OUTSIDE RECORDS SUMMARY | 2025-09-01 16:25 | XMS_ITS | Encounter Summary ---
Author Organization [facility] Address [address] [place] [address] Care Team Providers Care Livestock Nutritionist Name Role Phone Alexis Montanez MD Primary Care Provider [phone] Encounter Details Date Type Department Care Team (Latest Contact Info) Description 07/31/2025 Travel Social History Tobacco Use Types Packs/Day Years [...] and heating? Patient unable to answer 08/01/2025 [place] of Occupat ional Health - Occupational Stress [...] Patient unable to answer 08/01/2025 [facility] Utilities Answer Date Recorded In the [...] as of this encounter Functional Status * Calculated C-SSRS Risk Score (Lifetime/Recent) Answer Date of Assessment Author No Risk Indicated 07/31/2025 12:58 PM Karis Shepherd RN * [place] Suicide Severity Rating Scale (Screener/Recent Self-Report) Question Answer Date of Assessment Author 1. Wish to be (Past 1 Month) No 025 12:58 PM Karis Shepherd RN 2. Non-Specific Active Suici nilton Thoughts (Past 1 Month) No 07/31/2025 12:58 PM Michelle Shepherd RN 6. Suicidal Behavior (Lifetime) No 12:58 PM Karis Shepherd RN documented as of this encounter Plan of Treatment Upcoming Encounters Date Type Department Care Team (Late st Contact Info) Description 09/16/2025 10:30 AM EST Office Visit [facility] UR[facility]Y [address] [place] [address] Melissa Briceño APRN 1760 [facility] [address] [place] [address] documented as of this encounter Visit Diagnoses Not on filedocumented in this encounter Additional Health Concerns Infection Onset Date Last Indicated Resolved Time MRSA 07/24/2025 07/24/2025 documented as of this encounter Care Teams Livestock Nutritionist Relationship Specialty Start Date End Date Alexis Montanez MD 1210 [facility] [address] [facility] [address] [place] [id number] PCP - General Family Medicine 07/23/25 documented as of this encounter
--- OUTSIDE RECORDS SUMMARY | 2025-09-01 16:25 | XMS_ITS | Encounter Summary ---
[facility] Organization [facility] Address [address] [place] [address] Care Team Providers Care Fireworks Assembly Supervisor Name Role Phone Alexis Montanez MD Primary Care Provider [phone] Encounter Details Date Type Department Care Team (Late st Contact Info) Description 08/01/2025 Readmission Management [facility] CALL [facility] [address] [place] [phone] Carmelita Sparks, RN Social History Tobacco [...] and heating? Patient unable to answer 08/01/2025 [employer] [place] of Occupat ional Health - Occupational Stress [...] 08/01/2025 [facility] Utilities Answer Date Recorded In the past 12 months has th e [employer], gas, oil, or water [employer] threatened to shut off services in your [...] documented as of this encounter Functional Status documented as of this encounter Miscellaneous Notes * Outreach Note - Carmelita Sparks RN - 08/01/2025 3:39 PM EDT Images from the original note were not included. Medical Week 1 Survey Flowsheet Row [facility] the patient have one of the following disease processes/diagnoses(primary or secondary)? Other Week 1 attempt successful? No Unsuccessful attempts Attempt 2 Revoke Readmitted [pt has been read[facility] to [facility]] Carmelita Guido - Registered Nurse documented in this encounter Plan of Treatment Upcoming Encounters Date Type Department Care Team (Late st Contact Info) Description 09/16/2025 10:30 AM EST Office Visit [facility] UROLOGY [address] [place] [address] Melissa Briceño APRN [address] [place] [phone] documented as of this encounter Visit Diagnoses Not on filedocumented in this encounter Additional Health Concerns Infection Onset Date Last Indicated Resolved Time MRSA 07/24/2025 07/24/2025 documented as of this encounter Care Teams Fireworks Assembly Supervisor Relationship Specialty Start Date End Date Alexis Montanez MD [facility] [address] [facility] [address] [place] [address] PCP - General Family Medicine 07/23/25 documented as of this encounter
--- OUTSIDE RECORDS SUMMARY | 2025-09-01 16:26 | XMS_ITS | Encounter Summary ---
Author Organization [facility] Address [address] [place] [address] Care Team Providers Care Spearer Name Role Phone Alexis Montanez MD Primary Care Provider [phone] Encounter Details Date Type Department Care Team (Latest Contact Info) Description 07/23/2025 Travel Social History Tobacco Use Types Packs/Day Years Used Date Smoking Tobacco: Never Assessed [facility] Utilities Answer Date Recorded In the past 12 months has [employer], gas, oil, or water company threatened [...] care, and heating? Not very hard 07/24/2025 [employer] [place] of Occupat ional Health - Occupational Stress [...] GED or equivalent No 07/24/2025 Preferred Language Monegasque 07/24/2025 PHQ-2 Answer Date Recorded Patient Health [...] Risk Indicated 07/23/2025 6:15 PM EDT Neda Fitzpatrick, BRAVO * [place] Suicide Severity Rating Scale (Screener/Recent Self-Report) Question Answer Date of Assessment Author 1. Wish to be (Past 1 Month) No 025 6:15 PM EDT Neda Fitzpatrick, BRAVO 2. Non-Specific Active Suici nilton Thoughts (Past 1 Month) No 07/23/2025 6:15 PM EDT Neda Fitzpatrick , BRAVO 6. Suicidal Behavior (Lifetime) No 6:15 PM EDT Neda Fitzpatrick, BRAVO documented as of this encounter Plan of Treatment Upcoming Encounters Date Type Department Care Team (Late st Contact Info) Description 09/16/2025 10:30 AM EST Office Visit [facility] UROLOGY [address] [place] [address] Melissa Briceño APRN [address]60 [facility] [address] [place] [address] documented as of this encounter Visit Diagnoses Not on filedocumented in this encounter Care Teams Spearer Relationship Specialty Start Date End Date Alexis Montanez MD 1210 [facility] [address] [place] [address] PCP - General Family Medicine 07/23/25 documented as of this encounter
--- OUTSIDE RECORDS SUMMARY | 2025-09-01 16:27 | XMS_ITS | Encounter Summary ---
Author Organization [facility] Address [address] [place] [address] Care Team Providers Care Motor Coach Driver Name Role Phone Alexis Montanez MD Primary Care Provider [phone] Encounter Details Date Type Department Care Team (Latest Contact Info) Description 08/22/2025 Travel Social History Tobacco Use Types Packs/Day [...] and heating? Patient unable to answer 08/01/2025 [place] of Occupat ional [facility] - Occupational Stress Questionnaire Answer Date Recorded [...] Patient unable to answer 08/01/2025 [facility] Utilities Answer Date Recorded In the past [...] Patient unable to answer 08/22/2025 Preferred Language Costa Rican 08/22/2025 PHQ-2 Answer Date Recorded Patient Health [...] Visit [facility] UROLOGY [address] [place] [address] Melissa Briceño, CHIN [address] [facility] [address] [place] [address] documented as of this encounter Visit Diagnoses Not on filedocumented in this encounter Additional Health Concerns Infection Onset Date Last Indicated Resolved Time MRSA 07/24/2025 07/24/2025 documented as of this encounter Care Teams Motor Coach Driver Relationship Specialty Start Date End Date Alexis Montanez MD 1210 [facility] [address] [place] [address] PCP - General Family Medicine 07/23/25 documented as of this encounter
--- OUTSIDE RECORDS SUMMARY | 2025-09-01 16:27 | XMS_ITS | Encounter Summary ---
Author Organization [facility] Address [address] [place] [address] Care Team Providers Care Manager Dialysis Name Role Phone Alexis Montanez MD Primary Care Provider [phone] Encounter Details Date Type Department Care Team (Latest Contact Info) Description 08/23/2025 Travel Social History Tobacco Use Types Packs/Day [...] and heating? Patient unable to answer 08/01/2025 [place] Islander [place] of Occupat ional [facility] - Occupational Stress Questionnaire Answer [...] Patient unable to answer 08/22/2025 Preferred Language Bolivian 08/22/2025 PHQ-2 Answer Date Recorded Patient Health [...] 08/23/2025 9:26 AM Ana Bernal RN * [place] Suicide Severity Rating Scale (Screener/Recent Self-Report) Question Answer Date of Assessment Author 6. Suicidal Behavior (Lifetime) No 9:26 AM Ana Ta RN documented as of this encounter Plan of Treatment Upcoming Encounters Date Type Department Care Team (Late st Contact Info) Description 09/16/2025 10:30 AM EST Office Visit [facility] UR[facility]Y [address] [place] [address] Melissa Briceño APRN 1760 [facility] [address] [place] [address] documented as of this encounter Visit Diagnoses Not on filedocumented in this encounter Additional Health Concerns Infection Onset Date Last Indicated Resolved Time MRSA 07/24/2025 07/24/2025 documented as of this encounter Care Teams Manager Dialysis Relationship Specialty Start Date End Date Alexis Montanez MD 1210 [facility] [address] [facility] [place] [address] PCP - General Family Medicine 07/23/25 documented as of this encounter
[2025-09-01 17:12] LABS: Bilirubin,Urine Negative (Negative); Color,Urine YELLOW (Yellow); Glucose,Urine (UA) Negative (Negative); Ketones,Urine Negative (Negative); Leukocyte Esterase,Urine 1+ (Negative); PH,Urine 6.0 (5.0-8.5); Protein,Urine Negative (Negative); Specific Gravity, Urine 1.015 (1.005-1.030); Urobilinogen,Urine 0.2 EU/dl (0.2)
[2025-09-01 17:41] LABS: Bacteria,Urine 4+ /lpf; WBC,Urine 20-50 #/hpf (0-3)
== END 2025-09-01 23:59 | disposition home or self-care (01) ==
LOC: LAB.DROPOF 16:18
PROVIDERS: PCP Family Medicine; Visit Provider Family Medicine
DX: N39.0 Urinary tract infection, site not specified (principal)
CPT/HCPCS: 81001; 87086; 87088

== ENCOUNTER 2025-09-16 20:15 | Observation (INO) | payer MEDICARE, SELFPAY ==
--- OUTSIDE RECORDS SUMMARY | 2025-07-23 16:27 | XMS_ITS | Encounter Summary ---
Author Organization [facility] Address [address] [place] [address] Care Team Providers Care Hotel Services Supervisor Name Role Phone Alexis Montanez MD Primary Care Provider [phone] Reason for Visit * Reason Comments Wound Check * Auth/Cert Specialty Diagnoses / Procedures Referred By Gumaro ferrera Referred To Contact Diagnoses PAD (peripheral artery disease) Referral ID Status Reason Start Date Expiration Date Visits Re quested Visits Authorized [id number] 1 1 Encounter Details Date Type Department Care Team (Late st Contact Info) Description 07/23/2025 5:27 PM EDT - 07/25/2025 6:31 PM EDT Hospital Encounter [facility] [address] [place] [id number] Vipul Barney MD [address] [facility] [address] Amada Ibrahim MD [address] [facility] [address] [place], [place] [id number] Norma Whitney DO [address] [facility] [address] [place], [place] [id number] Cellulitis of left foot (Primary Dx); Ischemic ulcer, unspecified ulcer stage; Peripheral artery disease; Critical limb ischemia of left lower extremity Discharge Disposition: Home or Self Care Social History Tobacco Use Types Packs/Day Years Used Date Smoking Tobacco: Never Smokeless Tobacco: Never Tobacco Cessation:Counseling Given: Not Answered Alcohol Use Standard Drinks/Week Comments Never 0 (1 standard drink = 0.6 oz pur e alcohol) [facility] Utilities Answer Date Recorded In the past 12 months has e electric, gas, oil, or water company threatened to shut off services in your home? No 07/24/2025 AUDIT-C Answer Date Recorded Q1: How often do you have a drink containing alcohol? Never 07/24/2025 Q2: How many drinks containi ng alcohol do you have on a typical day when you are drinking? Patient does not drink Q3: How often do you have si x or more drinks on one occasion? Never 07/24/2025 Overall Financial Resource Strain (CARDIA) Answe r Date Recorded How hard is it for you to pa y for the very basics like food, housing, medical care, and heating? Not very hard 07/24/2025 [facility] - Occupational Stress Questionnaire Answer Date Recorded Do you feel stress - tense, restless, nervous, or anxious, or unable to sleep at night because your mind is troubled all the time - these days? Only a little 07/24/2025 Exercise Vital Sign Answer Date Recorde d On average, how many days pe r week do you engage in moderate to strenuous exercise (like a brisk walk)? 0 days 07/24/2025 On average, how many minutes do you engage in exercise at this level? 0 min 07/24/2025 Hunger Vital Sign Answer Date Recorded Within the past 12 months, y ou worried that your food would run out before you got the money to buy more. Never true 07/24/20 25 Within the past 12 months, t he food you bought just didn't last and you didn't have money to get more. Never true 07/24/2025 PRAPARE - Transportation Answer Date Re corded In the past 12 months, has l ack of transportation kept you from medical appointments or from getting medications? No 05/2025 In the past 12 months, has l ack of transportation kept you from meetings, work, or from getting things needed for daily living? No 07/24/2025 Abuse Screen Answer Date Recorded Feels Unsafe at Home or Work/School no 07/23/2025 Feels Threatened by Someone no 04/2025 Does Anyone Try to Keep You From Having Contact with Others or Doing Things Outside Your Home? no 07/23/2025 Physical Signs of Abuse Present no 07/23/2025 Housing Stability Answer Date Recorded Current Living Arrangements home 05/2025 Potentially Unsafe Housing Conditions none 07/24/2025 Family and Community Support Answer Brian e Recorded If for any reason you need h elp with day-to-day activities such as bathing, preparing meals, shopping, managing finances, etc., do you get the help you need? I get all the help I need 07/24/2025 How often do you feel lonely or isolated from those around you? Never 07/24/2025 Employment Answer Date Recorded Do you want help finding or keeping work or a job? I do not need or want help 07/24/2025 Disabilities Answer Date Recorded Difficulty Concentrating, Remembering or Making Decisions yes 07/24/2025 Difficulty Managing Errands Independently yes 07/24/2025 Education Answer Date Recorded Do you want help with school or training? For example, starting or completing job training or getting a high school diploma, GED or equivalent No 07/24/2025 Preferred Language Trinidadian 07/24/2025 PHQ-2 Answer Date Recorded Patient Health Questionnaire-2 Score 0 07/24/2025 Comments Unknown Sex and Gender Information Value Date Recorded Sex Assigned at Not on file Legal Sex Female 4:32 PM EDT Gender Identity Not on file Sexual Orientation Not on file documented as of this encounter Last Filed Vital Signs Vital Sign Reading Time Taken Comments Blood Pressure 152/65 07/25/2025 3:15 PM EDT Pulse 63 07/25/2025 3:15 PM EDT Temperature 36.6 C (97.8 F) 07/25/2025 3:15 PM EDT Respiratory Rate 18 07/25/2025 3:15 PM EDT Oxygen Saturation 96% 07/25/2025 11:25 AM EDT Inhaled Oxygen Concentration - - Weight 53.3 kg (117 lb 8 oz) 07/24/2025 2:51 AM EDT Height 149.9 cm (4' 11.02 ) 07/24/2025 2:51 AM EDT Body Mass Index 23.72 07/24/2025 2:51 AM EDT documented in this encounter Functional Status * Over the past 2 weeks, how often have you been bothered by any of the following problems? Question Answer Date of Assessment Author Patient Health Questionnaire -2 Score 0 07/24/2025 10:59 AM EDT Jl Reina RN * Calculated C-SSRS Risk Score (Lifetime/Recent) Answer Date of Assessment Author No Risk Indicated 07/23/2025 6:15 PM EDT Neda Fitzpatrick RN * Holcomb Suicide Severity Rating Scale (Screener/Recent Self-Report) Question Answer Date of Assessment Author 1. Wish to be (Past 1 Month) No 6:15 PM EDT Neda Fitzpatrick RN 2. Non-Specific Active Suici nilton Thoughts (Past 1 Month) No 07/23/2025 6:15 PM EDT Neda Fitzpatrick RN 6. Suicidal Behavior (Lifetime) No 6:15 PM EDT Neda Fitzpatrick RN * Question Answer Date of Assessment Author Little interest or pleasure in doing things Not at all 07/24/2025 10:59 AM EDT Nam Reina RN Feeling down, depressed, or hopeless Not at all 07/24/2025 10:59 AM EDT Jl Reina RN documented as of this encounter Discharge Summaries * Norma Whitney, - 07/25/2025 12:00 PM EDT Images from the original note were not included. [facility] Medicine Services DISCHARGE SUMMARY Patient Name: Hattie Zamora : 1940 Date of Admission: 07/23/2025 5:27 PM Date of Discharge: 07/25/2025 Primary Care Physician: Alexis Montanez MD Consults Date and Time Order Name Status Description 07/24/2025 12:46 PM Inpatient Vascular Surgery Consult Completed Hospital Course Presenting Problem: RLE pain, toe wound Active Hospital Problems Diagnosis POA Critical limb ischemia of left lower extremity [I70.222] Yes PAD (peripheral artery disease) [I73.9] Yes Type 2 diabetes mellitus with diabetic neuropathy, without long-term current use of insulin [E11.40] Yes Primary hypertension [I10] Yes Mild intermittent asthma without complication [J45.20] Yes Presence of cardiac pacemaker [Z95.0] Yes Peripheral artery disease [I73.9] Unknown Resolved Hospital Problems No resolved problems to display. Hospital Course: Hattie Zamora is a 85 y.o. female with history of PAD, diabetes, hypertension who was admitted forworsening left foot wound following recent angioplasty. Per daughter, patient had been seen by wood bucker for multiple stent placements and most recently had angioplasty of left lower extremity by cardiology. The daughter is unsure what vessels were manipulated but she did note that her toe wound and ulcer got worse after the procedure. Patient had been seen by podiatry and daughter had been wrapping her toe. She developed a blister from gauze that had been covering the top of her foot. When she removed the gauze, the blister and skin came off causing foot wound. Admitted for worsening foot wound, pain. She was seen by vascular surgery and family has opted for bypass intervention. Discussed with vascular PA, the earliest OR timewould not be until next week so plan is to DC home due to history of hospital delirium and then return next week for surgery. Worsening left foot wound - Vascular surgery consulted, DC home with lovenox, hold eliquis. Will need to followup next week for outpt revascularization. Discussed with vascular and family who have agreed to plan. - Patient recently had angioplasty on 06/18 for left lower extremity occlusion by wood bucker per family report. - Heparin drip transitioned to lovenox at DC - Eliquis on hold. Continue plavix - CTA of LLE shows occlusion of left femoral artery, superficial femoral artery and popliteal arteries with reconstitution of infrapopliteal runoff with a patent anterior tibial artery to the ankle - Continue gabapentin Diabetes type 2 Hypertension -Continue carvedilol -Continue digoxin Discharge Follow Up Recommendations for outpatient labs/diagnostics: Plan to return next week, likely Wed for bypass with Dr Zhao Day of Discharge HPI: Resting comfortably, multiple family members at bedside. Given option to stay or go home and come home. They want to go home and then come back for outpt procedure. Review of Systems Gen- No fevers, chills CV- No chest pain, palpitations Resp- No cough, dyspnea GI- No N/V/D, abd pain Vital Signs: Temp: [97.1 ??F (36.2 ??C)-98.2 ??F (36.8 ??C)] 97.5 ??F (36.4 ??C) Heart Rate: [60-67] 60 Resp: [18] 18 BP: (124-164)/(56-71) 141/60 Physical Exam: Constitutional: sleeping comfortably, awakens to voice HENT: NCAT, mucous membranes moist Respiratory: Respiratory effort normal Gastrointestinal: Soft, nontender, nondistended Musculoskeletal: R big toe with gangrene Psychiatric: Appropriate affect, cooperative Neurologic: Oriented x 2-3, speech mostly clear Skin: No rashes Pertinent and/or Most Recent Results LAB RESULTS: Lab 07/24/25 2236 07/24/25 1527 07/24/255 07/23/25 2200 07/23/25 1732 WBC -- -- 8.96 -- 12.54* HEMOGLOBIN -- -- 10.8* -- 12.6 HEMATOCRIT -- -- 33.8* -- 38.7 PLATELETS -- -- 282 -- 392 NEUTROS ABS -- -- 5.01 -- 7.15* IMMATURE GRANS (ABS) -- -- 0.05 -- 0.03 LYMPHS ABS -- -- 2.50 -- 3.24* MONOS ABS -- -- 0.82 -- 1.24* EOS ABS -- -- 0.55* -- 0.84* MCV -- -- 89.7 -- 87.6 LACTATE -- -- 0.6 -- 1.2 PROTIME -- -- -- 17.0* -- APTT 60.8 97.0* 59.2* 38.1* -- Lab 07/24/2544407/23/25 1732 SODIUM 133* 134* POTASSIUM 4.1 4.3 CHLORIDE 99 96* CO2 23.7 25.9 ANION GAP 10.3 12.1 BUN 10.3 10.8 CREATININE 0.54* 0.63 EGFR 90.9 87.6 GLUCOSE 118* 124* CALCIUM 8.6 9.5 MAGNESIUM 1.7 -- PHOSPHORUS 3.6 -- HEMOGLOBIN A1C 6.03* -- Lab 07/24/2544407/23/251731 TOTAL PROTEIN 5.8* 7.2 ALBUMIN 3.2* 3.9 GLOBULIN 2.6 3.3 ALT (SGPT) 10 15 AST (SGOT) 19 23 BILIRUBIN 0.2 0.4 ALK PHOS 49 61 Lab 07/24/255 07/23/25 2200 07/23/25195307/23/251731 HSTROP T 23* -- 21* 26* PROTIME -- 17.0* -- -- INR -- 1.30* -- -- Lab 07/24/25444 CHOLESTEROL 105 LDL CHOL 41 HDL CHOL 50 TRIGLYCERIDES 65 Brief Urine Lab Results (Last result in the past 365 days) Color Clarity Blood Leuk Est Nitrite Protein CREAT Urine HCG 07/24/252202 Yellow Cloudy Negative Small (1+) Negative Negative Microbiology Results (last 10 days) Procedure Component Value - Date/Time MRSA Screen, PCR (Inpatient) - Swab, Nares [[id number]] (Abnormal) Collected: 07/24/252054 Lab Status: Final result Specimen: Swab from Nares Updated: 07/25/25808 MRSA PCR Positive Narrative: The negative predictive value of this diagnostic test is high and should only be used to consider de-escalating anti-MRSA therapy. A positive result may indicate colonization with MRSA and must be correlated clinically. Blood Culture - Blood, Arm, Left [[id number]] (Normal) Collected: 07/23/251744 Lab Status: Preliminary result Specimen: Blood from Arm, Left Updated: 07/24/251945 Blood Culture No growth at 24 hours Narrative: Less than seven (7) mL's of blood was collected. Insufficient quantity may yield false negative results. Blood Culture - Blood, Arm, Right [[id number]] (Normal) Collected: 07/23/251734 Lab Status: Preliminary result Specimen: Blood from Arm, Right Updated: 07/24/251945 Blood Culture No growth at 24 hours Narrative: Less than seven (7) mL's of blood was collected. Insufficient quantity may yield false negative results. Duplex Lower Extremity Art / Grafts - Left CAR Result Date: 07/24/2025 This was a unilateral left lower extremity arterial duplex study. Monophasic waveforms in the common femoral and proximal superficial femoral arteries, suggestive of significant aortoiliac level disease. Occluded mid superficial femoral, distal superficial femoral, popliteal, posterior tibial, and peroneal segments. Trivial, low velocity flow noted in the mid and distal anterior tibial artery segments. The tibioperoneal trunk and dorsalis pedis arteries were not well-visualized. CT Angiogram Lower Extremity Bilateral Result Date: 07/23/2025 CT ANGIOGRAM LOWER EXTREMITY BILATERAL Date of Exam: 07/23/2025 10:56 PM EDT Indication: critical limb ischemia. Comparison: CT non contrast from earlier same day Technique: CTA of the bilateral lowerextremities was performed after the uneventful intravenous administration of iodinated contrast. Reconstructed coronal and sagittal images were also obtained. In addition, a 3-D volume rendered imagewas created for interpretation. Automated exposure control and iterative reconstruction methods were used. Findings: There is distal abdominal aortic atherosclerosis and atherosclerosis of the bilateral common iliac arteries. On the right side, there is calcific atherosclerosis with post treatment changes of stenting of the right external iliac artery. Just proximal to the iliac stent, there is moderate grade stenosis with approximately 50% stenosis at the bifurcation proximally on the right. There is stenting of the right superficial femoral artery which is patent. Beyond the stent and through the area of the James's canal there is diffuse atherosclerosis of the right SFA but there is no occlusion. There is a stent from the distal SFA through the popliteal artery. This appears to be patent. There is a widely patent anterior tibial artery. The peroneal and dorsalis pedis arteries are diffusely diseased with calcification but there does appear to be a three-vessel runoff to the ankle.There is a patent left common iliac artery stent which is widely patent. There is disease of the internal iliac artery. The left external iliac arteries widely patent. There is a stent of the left femoral artery which is occluded just beyond the profunda femoris artery which is patent. The entiretyof the SFA is occluded to the level of the popliteal which is also occluded. There is reconstitution of the infrapopliteal runoff with diffuse calcific atherosclerosis of the peroneal and dorsalis pedis arteries with a patent anterior tibial artery to the ankle. Impression: 1.There is occlusion of the left femoral artery, superficial femoral artery and popliteal arteries with reconstitution of the infrapopliteal runoff with a patent anterior tibial artery tothe ankle. 2.There is a patent right superficial femoral artery stent with a three-vessel runoff tothe ankle. Electronically Signed: Vinod Cates MD 07/23/2025 11:58 PM EDT Workstation ID: [id number] CT Lower Extremity Left Without Contrast Result Date: 07/23/2025 CT LOWER EXTREMITY LEFT WO CONTRAST Date of Exam: 07/23/2025 7:17 PM EDT Indication: left great toe ulcer, left foot redness. Comparison: Left foot radiographs dated 07/23/2025 Technique: Axial CT images were obtained of the left lower extremity without contrast administration. Reconstructed coronal and sagittal images were also obtained. Automated exposure control and iterative construction methods were used. Findings: There is focal soft tissue thickening along the medial aspect of the distal first phalanx. No periosteal reaction or bony destructive changes. No soft tissue air or radiopaque foreign bodies there is subtle skin irregularity, possibly the site of the ulceration. The foot is intact without acute fractures or dislocations. There are degenerative changes at the sesamoid bones of the great toe. There are degenerative changes in the tarsal bones. The Lisfranc joint is intact. There is a small to moderate plantar calcaneal enthesophyte. There is diffuse subcutaneous edema around the foot and the lateral aspect of the ankle. Soft tissue fat planes in intramuscular compartments are preserved. No pathologic enhancement. No loculated fluid collections. Impression: 1.Focal soft tissue thickening along the medial aspect of the distal first phalanx withsubtle skin irregularity, possibly the site of the ulceration. No CT signs of osteomyelitis. No soft tissue air or radiopaque foreign bodies or evidence of soft tissue abscess. 2.Diffuse subcutaneousedema around the foot and lateral aspect of the ankle. This could be due to cellulitis or possibly venous insufficiency, correlation with clinical scenario for this is needed. 3.Degenerative changes as described above. No acute bony abnormalities. Electronically Signed: Shaq Lewis DO 07/23/2025 8:07 PM EDT Workstation ID: [id number] XR Chest 1 View Result Date: 07/23/2025 XR CHEST 1 VW Date of Exam: 07/23/2025 5:48 PM EDT Indication: pre admission. Comparison: None available. Findings: No focal consolidation or effusion. Left lower lobe granuloma is visualized. Skinfolds overlie the bilateral hemithoraces. There is no evidence of pneumothorax. The pulmonary vasculature appears within normal limits. Patient is post left subclavian dual-lead pacemaker placement. The cardiac and mediastinal silhouette appear unremarkable. No acute osseous abnormality identified. Impression: No radiographic evidence of acute chest process. Electronically Signed: López Haywood MD 07/23/2025 6:13 PM EDT Workstation ID: [id number] XR Foot 3+ View Left Result Date: 07/23/2025 XR FOOT 3+ VW LEFT Date of Exam: 07/23/2025 5:27 PM EDT Indication: left foot/great toe pain/swelling/redness. TECHNIQUE: Left foot. COMPARISON: None available. FINDINGS: OSSEOUS STRUCTURES: There is normal alignment. No acute fracture or subluxation identified. Osteopenia/osteoporosis. No acute blastic or lytic lesion identified. JOINT SPACES: Mild degenerative changes present. No significant joint space loss. No significant joint effusion. SOFT TISSUES: No significant swelling present. Soft tissue air or radiopaque foreign body not present. RECOMMENDATIONS: Delayed plain film imaging in 7-14days could be helpful in the setting of trauma. Subtle fractures can become more apparent on delayed imaging due to normal process of a healing fracture. Also, CT is more sensitive to subtle radiographically occult fracture. MRI is more sensitive to bone bruising, ligamentous and soft tissue injury. MRI and triple phase bone scan is more sensitive to the subtle/early changes of osteomyelitis. If fracture is present and patient age > or equal to 65 years old, the patient should be evaluated or treated for osteoporosis. 1. No acute fracture or posttraumatic subluxation identified. Electronically Signed: Hay Saldana MD 07/23/2025 5:52 PM EDT Workstation ID: [id number] Results for orders placed during the hospital encounter of 07/23/25 Duplex Lower Extremity Art / Grafts - Left CAR 07/24/2025 3:09 PM Interpretation Summary This was a unilateral left lower extremity arterial duplex study. Monophasic waveforms in the common femoral and proximal superficial femoral arteries, suggestive ofsignificant aortoiliac level disease. Occluded mid superficial femoral, distal superficial femoral,popliteal, posterior tibial, and peroneal segments. Trivial, low velocity flow noted in the mid anddistal anterior tibial artery segments. The tibioperoneal trunk and dorsalis pedis arteries were not well-visualized. I have personally reviewed the therapy plans: [] PT/OT/ ST Therapy Plans Plan for Follow-up of Pending Labs/Results: Pending Labs Order Current Status Blood Culture - Blood, Arm, Left Preliminary result Blood Culture - Blood, Arm, Right Preliminary result Discharge Details Discharge Medications PAUSE taking these medications Instructions Start Date apixaban 2.5 MG tablet tablet Wait to take this until: August 02, 2025 Hold while on lovenox Commonly known as: ELIQUIS 2.5 mg, Oral, 2 Times Daily New Medications Instructions Start Date enoxaparin sodium 60 MG/0.6ML solution prefilled syringe syringe Commonly known as: LOVENOX 1 mg/kg (50 mg), Subcutaneous, Every 12 Hours QUEtiapine 25 MG tablet Commonly known as: SEROquel 12.5 mg, Oral, Every 12 Hours PRN Continue These Medications Instructions Start Date budesonide-formoterol 160-4.5 MCG/ACT inhaler Commonly known as: SYMBICORT 2 puffs, Inhalation, 2 Times Daily - RT carvedilol 6.25 MG tablet Commonly known as: COREG 6.25 mg, Oral, 2 Times Daily With Meals clopidogrel 75 MG tablet Commonly known as: PLAVIX 75 mg, Oral, Daily digoxin 125 MCG tablet Commonly known as: LANOXIN 125 mcg, Oral, Daily Digoxin gabapentin 300 MG capsule Commonly known as: NEURONTIN 600 mg, Oral, 2 Times Daily With Meals pravastatin 40 MG tablet Commonly known as: PRAVACHOL 40 mg, Oral, Daily Allergies Allergen Reactions Doxycycline Unknown - High Severity Morphine Mental Status Change Penicillins Unknown - High Severity Sulfur Unknown - High Severity Discharge Disposition: Diet: Hospital: Diet Order Procedures Diet: Regular/House; Fluid Consistency: Thin (IDDSI 0) Standing Status: Standing Number of Occurrences: 1 Diets:: Regular/House Fluid Consistency:: Thin (IDDSI 0) Activity: Restrictions or Other Recommendations: CODE STATUS: Code Status and Medical Interventions: CPR (Attempt to Resuscitate); Full Support Ordered at: 07/23/25 4396 Code Status (Patient has no pulse and is not breathing): CPR (Attempt to Resuscitate) Medical Interventions (Patient has pulse or is breathing): Full Support Level Of Support Discussed With: Patient No future appointments. Norma Whitney DO 07/25/25 Time Spent on Discharge: I spent 45 minutes on this discharge activity which included: [id number] with the patient, reviewing the data in the system, coordination of the care with the nursing staff as well as consultants, documentation, and entering orders. documented in this encounter Discharge Instructions * Attachments The following attachments cannot be sent through Care Everywhere. * Carotid Artery Disease [id number] (Trinidadian) * Wound Care Adult (Trinidadian) * Wound Infection Kcoj-ec-Kkty (Trinidadian) * Enoxaparin Injection (Trinidadian) * Anticoagulant Injection Instructions Using a Prefilled Syringe (Trinidadian) * Quetiapine Tablets (Trinidadian) documented in this encounter Medications at Time of Discharge budesonide-formo terol (SYMBICORT) 160-4.5 MCG/ACT inhaler Inhale 2 puffs 2 (Two) Times a Day. carvedilol (COREG) 6.25 MG tablet Take 1 tablet by mouth 2 (Two) Times a Day With Meals. clopidogrel (PLAVIX) 75 MG tablet Take 1 tablet by mouth Daily. digoxin (LANOXIN) 125 MCG tablet Take 1 tablet by mouth Daily. pravastatin (PRAVACHOL) 40 MG tablet Take 1 tablet by mouth Every Night. apixaban (ELIQUIS) 2.5 MG tablet tablet Take 1 tablet by mouth 2 (Two) Times a Day. Was held since discharge on 07/25 due to plans for procedure; was given enoxaparin bridge instead 5 enoxaparin sodium (LOVENOX) 60 MG/0.6ML solution prefilled syringe syringeIndicatio ns:DVT/PE (active thrombosis) Inject 0.5 mL under the skin into the appropriate area as directed every 12 hours for 10 days. *Dispose of remainder of syringe (0.1 mL) after each dose (SINGLE USE SYRINGES)* 12 mL 07/25/2025 3:01 PM EDT 07/25/2025 gabapentin (NEURONTIN) 300 MG capsule Take 2 capsules by mouth 2 (Two) Times a Day With Meals. 5 QUEtiapine (SEROquel) 25 MG tablet Take 0.5 (one-half) tablet by mouth Every 12 (Twelve) Hours As Needed for agitation and/or sleep 30 tablet 07/25/2025 3:01 PM EDT 07/25/2025 5 documented as of this encounter Progress Notes * Virgie Rodriguez APRN - 07/25/2025 3:12 PM EDT Images from the original note were not included. VASCULAR SURGERY PROGRESS NOTE Subjective Resting in bed with family present -- they have opted for the fem-pop bypass, but we are unable to get her on the schedule until middle of next week at the earliest, so the family has opted to take her home and bring her back electively since this is not urgent. Objective Last Recorded Vitals Blood pressure 152/65, pulse 63, temperature 97.8 ??F (36.6 ??C), temperature source Oral, resp. rate 18, height 149.9 cm (59.02 ), weight 53.3 kg (117 lb 8 oz), SpO2 96%. Physical Exam Gen: Awake; elderly white female; resting in bed; family at bedside HEENT: [place] conjunctivae, MMM Lungs: Normal respiratory effort Ext: motor intact; left great toe dressing Neuro: Follows simple commands Psych: Apropriate mood ?baseline memory loss? Labs: Lab Results (last 24 hours) Procedure Component Value Units Date/Time POC Glucose Once [[id number]] (Normal) Collected: 07/25/25 1140 Specimen: Blood Updated: 07/25/25 1144 Glucose 87 mg/dL Comment: Serial Number: [id number]: [id number] MRSA Screen, PCR (Inpatient) - Swab, Nares [[id number]] (Abnormal) Collected: 07/24/252054 Specimen: Swab from Nares Updated: 07/25/25 0809 MRSA PCR Positive Narrative: The negative predictive value of this diagnostic test is high and should only be used to consider de-escalating anti-MRSA therapy. A positive result may indicate colonization with MRSA and must be correlated clinically. POC Glucose Q6H [[id number]] (Normal) Collected: 07/25/25 0606 Specimen: Blood Updated: 07/25/25 0610 Glucose 100 mg/dL Comment: Serial Number: [id number]: [id number] POC Glucose Q6H [[id number]] (Abnormal) Collected: 07/25/25 0009 Specimen: Blood Updated: 07/25/25 0011 Glucose 154 mg/dL Comment: Serial Number: [id number]: [id number] aPTT [[id number]] (Normal) Collected: 07/24/252235 Specimen: Blood Updated: 07/24/252317 PTT 60.8 seconds Narrative: PTT = The equivalent PTT values for the therapeutic range of heparin levels at 0.3 to 0.5 U/ml are 60 to 70 seconds. Urinalysis With Microscopic If Indicated (No Culture) - Urine, Clean Catch [[id number]] (Abnormal) Collected: 07/24/252202 Specimen: Urine, Clean Catch Updated: 07/24/252220 Color, UA Yellow Appearance, UA Cloudy pH, UA <=5.0 Specific [place], UA 1.022 Glucose, UA Negative Ketones, UA Negative Bilirubin, UA Negative Blood, UA Negative Protein, UA Negative Leuk Esterase, UA Small (1+) Nitrite, UA Negative Urobilinogen, UA 1.0 E.U./dL Urinalysis, Microscopic Only - Urine, Clean Catch [[id number]] (Abnormal) Collected: 07/24/252202 Specimen: Urine, Clean Catch Updated: 07/24/252220 RBC, UA None Seen /HPF WBC, UA 6-10 /HPF Bacteria, UA None Seen /HPF Squamous Epithelial Cells, UA 0-2 /HPF Hyaline Casts, UA None Seen /LPF Methodology Automated Microscopy Blood Culture - Blood, Arm, Left [[id number]] (Normal) Collected: 07/23/251744 Specimen: Blood from Arm, Left Updated: 07/24/251945 Blood Culture No growth at 24 hours Narrative: Less than seven (7) mL's of blood was collected. Insufficient quantity may yield false negative results. Blood Culture - Blood, Arm, Right [[id number]] (Normal) Collected: 07/23/251734 Specimen: Blood from Arm, Right Updated: 07/24/251945 Blood Culture No growth at 24 hours Narrative: Less than seven (7) mL's of blood was collected. Insufficient quantity may yield false negative results. POC Glucose Once [[id number]] (Normal) Collected: 07/24/251744 Specimen: Blood Updated: 10/08/25 1749 Glucose 119 mg/dL Comment: Serial Number: [id number]: [id number] Duplex Lower Extremity Art / Grafts - Left CAR This was a unilateral left lower extremity arterial duplex study. Monophasic waveforms in the common femoral and proximal superficial femoral arteries, suggestive of significant aortoiliac level disease. Occluded mid superficial femoral, distal superficial femoral, popliteal, posterior tibial, and peroneal segments. Trivial, low velocity flow noted in the mid and distal anterior tibial artery segments. The tibioperoneal trunk and dorsalis pedis arteries were not well-visualized. CT Angiogram Lower Extremity Bilateral Narrative: CT ANGIOGRAM LOWER EXTREMITY BILATERAL Date of Exam: 07/23/2025 10:56 PM EDT Indication: critical limb ischemia. Comparison: CT non contrast from earlier same day Technique: CTA of the bilateral lower extremities was performed after the uneventful intravenous administration of iodinated contrast. Reconstructed coronal and sagittal images were also obtained. Inaddition, a 3-D volume rendered image was created for interpretation. Automated exposure control and iterative reconstruction methods were used. Findings: There is distal abdominal aortic atherosclerosis and atherosclerosis of the bilateral common iliac arteries. On the right side, there is calcific atherosclerosis with post treatment changes of stenting of theright external iliac artery. Just proximal to the iliac stent, there is moderate grade stenosis with approximately 50% stenosis at the bifurcation proximally on the right. There is stenting of the right superficial femoral artery which is patent.Beyond the stent and through the area of the James's canal there is diffuse atherosclerosis of theright SFA but there is no occlusion. There is a stent from the distal SFA through the popliteal artery. This appears to be patent. There is a widely patent anterior tibial artery. The peroneal and dorsalis pedis arteries are diffusely diseased with calcification but there does appear to be a three-vessel runoff to the ankle. There is a patent left common iliac artery stent which is widely patent. There is disease of the internal iliac artery. The left external iliac arteries widely patent. There is a stent of the left femoral artery which is occluded just beyond the profunda femoris artery which is patent. The entirety of the SFA is occluded to the level of the popliteal which is also occluded. There is reconstitution of the infrapopliteal runoff with diffuse calcific atherosclerosis of the peroneal and dorsalis pedis arteries with a patent anterior tibial artery to the ankle. Impression: Impression: 1.There is occlusion of the left femoral artery, superficial femoral artery and popliteal arteries with reconstitution of the infrapopliteal runoff with a patent anterior tibial artery to the ankle. 2.There is a patent right superficial femoral artery stent with a three-vessel runoff to the ankle. Electronically Signed: Vinod Cates MD 07/23/2025 11:58 PM EDT Workstation ID: [id number] Assessment - Left great toe ulcer with worsening acute pain - Chronic peripheral vascular disease with critical limb ischemia - recent angioplasty in [place] 06/18/25 - multiple stents from iliac down to popliteal and including [employer]K [employer] - Diabetes mellitus type 2 with neuropathy - Hypertension - Chronic AFIB on eliquis - Hx pacemaker placement - Chronic asthma - Hyperlipidemia Plan - wound care - eliquis on hold in light of possible procedures -- keep on hold at DC and bridge with lovenox - continue plavix - ok to DC home with lovenox - long discussion with family/medical POA and patient regarding treatment options -- leave it as isand just paint it with betadine/wound care, high right lower extremity amputation, or RLE bypass which would be her only option at ambulating again but does pose risks from a cardiac/anesthesia standpoint given her age -- they have opted for the fem-pop bypass, but we are unable to get her on the schedule until middle of next week at the earliest due to no OR time, so they have opted to take her home and bring her back electively since this is not urgent - OK to DC from vascular standpoint - our office will work on getting her scheduled electively next week - vascular will sign off -- please call with any further vascular concerns Discharge Planning: OK to DC from vascular standpoint * Azul Adrian RD - 07/24/2025 3:52 PM EDT Patient Name: Hattie Zamora Date of : 1940 Admission date: 07/23/2025 Reason for Encounter: MST 2-3 or Nursing Admission Screen [facility] Clinical Nutrition Assessment Subjective Subjective Information 07/24/25 Patient screened per protocol for MST 3. Admitted d/t worsening left foot wound. Patient able to provide nutrition hx, dtr at bedside. Patient states she hasn't eaten much since care home, likely 2/2 being less active. Dtr reports pt has likely had some wt loss recently, typically weighing ~115 but now weighing about 104 lbs since difficulties with L foot. Patient reports liking yogurt, cottage cheese and fruit. Agreeable to trial Boost BID. No questions/concerns regarding nutrition at this time. Objective H&P and Current Problems H&P History reviewed. No pertinent past medical history. History reviewed. No pertinent surgical history. Current Problems Admission Diagnosis: PAD (peripheral artery disease) [I73.9] Problem List: Critical limb ischemia of left lower extremity PAD (peripheral artery disease) Type 2 diabetes mellitus with diabetic neuropathy, without long-term current use of insulin Primary hypertension Mild intermittent asthma without complication Presence of cardiac pacemaker Applicable Nutrition Hx WOC: L great toe soft tissue necrosis Anthropometrics Height: 149.9 cm (59.02 ) Weight: 53.3 kg (117 lb 8 oz) (07/24/25 025) Weight Method: Stated BMI (Calculated): 23.7 Trending Weight Changes 07/24/25: No significant changes Weight History Wt Readings from Last 10 Encounters: 07/24/25 0251 53.3 kg (117 lb 8 oz) 07/23/25 1634 47.2 kg (104 lb) Labs Comment: Results from last 7 days Lab Units 07/24/25 0445 07/23/25 1732 SODIUM mmol/L 133* 134* POTASSIUM mmol/L 4.1 4.3 GLUCOSE mg/dL 118* 124* BUN mg/dL 10.3 10.8 CREATININE mg/dL 0.54* 0.63 CALCIUM mg/dL 8.6 9.5 PHOSPHORUS mg/dL 3.6 -- MAGNESIUM mg/dL 1.7 -- ALBUMIN g/dL 3.2* 3.9 LACTATE mmol/L 0.6 1.2 BILIRUBIN mg/dL 0.2 0.4 ALK PHOS U/L 49 61 AST (SGOT) U/L 19 23 ALT (SGPT) U/L 10 15 TRIGLYCERIDES mg/dL 65 -- Results from last 7 days Lab Units 07/24/25 0445 07/23/25 1732 PLATELETS 10*3/mm3 282 392 HEMOGLOBIN g/dL 10.8* 12.6 HEMATOCRIT % 33.8* 38.7 Lab Results Component Value Date HGBA1C 6.03 (H) 07/24/2025 Medications Scheduled Medications [Held by provider] apixaban, 2.5 mg, Oral, Q12H budesonide-formoterol, 2 puff, Inhalation, BID - RT carvedilol, 6.25 mg, Oral, Q12H cefTRIAXone, 2,000 mg, Intravenous, Q24H clopidogrel, 75 mg, Oral, Daily digoxin, 125 mcg, Oral, Daily famotidine, 40 mg, Oral, Daily gabapentin, 300 mg, Oral, Q12H insulin regular, 2-7 Units, Subcutaneous, Q6H pravastatin, 40 mg, Oral, Nightly sodium chloride, 10 mL, Intravenous, Q12H vancomycin, 18.8 mg/kg, Intravenous, Q24H Infusions heparin, 19 Units/kg/hr, Last Rate: 19 Units/kg/hr (07/24/25 0635) Pharmacy to Dose Heparin, Pharmacy to dose vancomycin, sodium chloride, 75 mL/hr, Last Rate: 75 mL/hr (07/24/25 0456) PRN Medications acetaminophen OR acetaminophen OR acetaminophen ALPRAZolam aluminum-magnesium hydroxide-simethicone senna-docusate sodium AND polyethylene glycol AND bisacodyl AND bisacodyl Calcium Replacement - Follow Nurse / BPA Driven Protocol dextrose dextrose glucagon (human recombinant) HYDROcodone-acetaminophen HYDROmorphone AND naloxone ipratropium-albuterol Magnesium Cardiology Dose Replacement - Follow Nurse / BPA Driven Protocol nitroglycerin ondansetron Pharmacy to Dose Heparin Pharmacy to dose vancomycin Phosphorus Replacement - Follow Nurse / BPA Driven Protocol Potassium Replacement - Follow Nurse / BPA Driven Protocol [COMPLETED] Insert Peripheral IV AND sodium chloride Physical Findings Chewing/Swallowing No issues identified at this time Dentition Mouth/Teeth WDL: .WDL except, teeth Teeth Symptoms: tooth/teeth missing, dental appliance present Skin WNL Bowel function Last Bowel Movement: 07/23/25 (07/24/25 0300) Edema None identified Intake & Output (last 3 days) 07/21 10/09 0700 Urine (mL/kg/hr) 300 (0.6) Total Output 300 Net -300 Nutrition Focused Physical Exam 07/24/25: NFPE completed and not consistent with nutrition diagnosis of malnutrition at this time using AND/ASPEN criteria. 1 Current Nutrition Orders & Evaluation of Intake Oral Nutrition Food Allergies/Intolerances NKFA Current PO Diet Diet: Regular/House; Fluid Consistency: Thin (IDDSI 0) Oral Nutrition Supplement None Trending % PO Intake 07/24/25: insuff data 2 Assessment & Plan Nutrition Diagnosis and Goals Nutrition Diagnosis 1 No nutrition diagnosis at this time; pending further indication Nutrition Diagnosis 2 None Goal(s) Establish PO Intake Nutrition Intervention and Prescription Intervention Start oral nutrition supplement, Obtain food preferences, Advised alternate menu selections, Advised available snacks, Continue to monitor for plan of care, Continue with current interventions, and Completed NFPE Diet Plan Continue current diet as ordered Supplement Plan Trial Boost OG BID Education Provided N/A 3 Monitoring/Evaluation Monitor/Evaluation Per Protocol, PO Intake, Oral Nutrition Supplement Intake, Skin Status, Symptoms, and POC/GOC RD Follow-Up Encounter 7 days and prn Electronically signed by: Azul Adrian RD 07/24/25 15:52 EDT * Norma Whitney, - 07/24/2025 7:43 AM EDT Images from the original note were not included. [facility] Medicine Services PROGRESS NOTE Patient Name: Hattie Zamora : 1940 Date of Admission: 07/23/2025 Primary Care Physician: Alexis Montanez MD Subjective Subjective CC: Left foot wound HPI: Pain in her toe is proved, family at bedside. Objective Objective Vital Signs: Temp: [97.5 ??F (36.4 ??C)-98.1 ??F (36.7 ??C)] 97.6 ??F (36.4 ??C) Heart Rate: [60-77] 60 Resp: [13-20] 18 BP: (124-188)/(48-85) 127/48 Physical Exam: Constitutional: No acute distress, awake, alert HENT: NCAT, mucous membranes moist Respiratory: Respiratory effort normal Musculoskeletal: No bilateral ankle edema. Left foot cool to touch, big toe with erythema and scab as well as wound/ulcer on end of big toe, beneath nail Psychiatric: Appropriate affect, cooperative Neurologic: Oriented x 3, speech clear Skin: No rashes Results Reviewed: LAB RESULTS: Lab 07/24/2544407/23/25219907/23/25195307/23/25 1732 WBC 8.96 -- -- 12.54* HEMOGLOBIN 10.8* -- -- 12.6 HEMATOCRIT 33.8* -- -- 38.7 PLATELETS 282 -- -- 392 NEUTROS ABS 5.01 -- -- 7.15* IMMATURE GRANS (ABS) 0.05 -- -- 0.03 LYMPHS ABS 2.50 -- -- 3.24* MONOS ABS 0.82 -- -- 1.24* EOS ABS 0.55* -- -- 0.84* MCV 89.7 -- -- 87.6 LACTATE 0.6 -- -- 1.2 PROTIME -- 17.0* -- -- APTT 59.2* 38.1* -- -- HSTROP T 23* -- 21* 26* Lab 07/24/2544407/23/25 1732 SODIUM 133* 134* POTASSIUM 4.1 4.3 CHLORIDE 99 96* CO2 23.7 25.9 ANION GAP 10.3 12.1 BUN 10.3 10.8 CREATININE 0.54* 0.63 EGFR 90.9 87.6 GLUCOSE 118* 124* CALCIUM 8.6 9.5 MAGNESIUM 1.7 -- PHOSPHORUS 3.6 -- HEMOGLOBIN A1C 6.03* -- Lab 07/24/2544407/23/25 173 TOTAL PROTEIN 5.8* 7.2 ALBUMIN 3.2* 3.9 GLOBULIN 2.6 3.3 ALT (SGPT) 10 15 AST (SGOT) 19 23 BILIRUBIN 0.2 0.4 ALK PHOS 49 61 Lab 07/24/2544407/23/25219907/23/25195307/23/25 1732 HSTROP T 23* -- 21* 26* PROTIME -- 17.0* -- -- INR -- 1.30* -- -- Lab 07/24/25 0445 CHOLESTEROL 105 LDL CHOL 41 HDL CHOL 50 TRIGLYCERIDES 65 Brief Urine Lab Results None Microbiology Results Abnormal None CT Angiogram Lower Extremity Bilateral Result Date: 07/23/2025 CT ANGIOGRAM LOWER EXTREMITY BILATERAL Date of Exam: 07/23/2025 10:56 PM EDT Indication: critical limb ischemia. Comparison: CT non contrast from earlier same day Technique: CTA of the bilateral lowerextremities was performed after the uneventful intravenous administration of iodinated contrast. Reconstructed coronal and sagittal images were also obtained. In addition, a 3-D volume rendered imagewas created for interpretation. Automated exposure control and iterative reconstruction methods were used. Findings: There is distal abdominal aortic atherosclerosis and atherosclerosis of the bilateral common iliac arteries. On the right side, there is calcific atherosclerosis with post treatment changes of stenting of the right external iliac artery. Just proximal to the iliac stent, there is moderate grade stenosis with approximately 50% stenosis at the bifurcation proximally on the right. There is stenting of the right superficial femoral artery which is patent. Beyond the stent and through the area of the James's canal there is diffuse atherosclerosis of the right SFA but there is no occlusion. There is a stent from the distal SFA through the popliteal artery. This appears to be patent. There is a widely patent anterior tibial artery. The peroneal and dorsalis pedis arteries are diffusely diseased with calcification but there does appear to be a three-vessel runoff to the ankle.There is a patent left common iliac artery stent which is widely patent. There is disease of the internal iliac artery. The left external iliac arteries widely patent. There is a stent of the left femoral artery which is occluded just beyond the profunda femoris artery which is patent. The entiretyof the SFA is occluded to the level of the popliteal which is also occluded. There is reconstitution of the infrapopliteal runoff with diffuse calcific atherosclerosis of the peroneal and dorsalis pedis arteries with a patent anterior tibial artery to the ankle. Impression: Impression: 1.There is occlusion of the left femoral artery, superficial femoral arteryand popliteal arteries with reconstitution of the infrapopliteal runoff with a patent anterior tibial artery to the ankle. 2.There is a patent right superficial femoral artery stent with a three-vessel runoff to the ankle. Electronically Signed: Vinod Cates MD 07/23/2025 11:58 PM EDT Workstation ID: [id number] CT Lower Extremity Left Without Contrast Result Date: 07/23/2025 CT LOWER EXTREMITY LEFT WO CONTRAST Date of Exam: 07/23/2025 7:17 PM EDT Indication: left great toe ulcer, left foot redness. Comparison: Left foot radiographs dated 07/23/2025 Technique: Axial CT images were obtained of the left lower extremity without contrast administration. Reconstructed coronal and sagittal images were also obtained. Automated exposure control and iterative construction methods were used. Findings: There is focal soft tissue thickening along the medial aspect of the distal first phalanx. No periosteal reaction or bony destructive changes. No soft tissue air or radiopaque foreign bodies there is subtle skin irregularity, possibly the site of the ulceration. The foot is intact without acute fractures or dislocations. There are degenerative changes at the sesamoid bones of the great toe. There are degenerative changes in the tarsal bones. The Lisfranc joint is intact. There is a small to moderate plantar calcaneal enthesophyte. There is diffuse subcutaneous edema around the foot and the lateral aspect of the ankle. Soft tissue fat planes in intramuscular compartments are preserved. No pathologic enhancement. No loculated fluid collections. Impression: Impression: 1.Focal soft tissue thickening along the medial aspect of the distal first phalanx with subtle skin irregularity, possibly the site of the ulceration. No CT signs of osteomyelitis. No soft tissue air or radiopaque foreign bodies or evidence of soft tissue abscess. 2.Diffuse subcutaneous edema around the foot and lateral aspect of the ankle. This could be due to cellulitis or possibly venous insufficiency, correlation with clinical scenario for this is needed. 3.Degenerative changes as described above. No acute bony abnormalities. Electronically Signed: Shaq Lewis DO 07/23/2025 8:07 PM EDT Workstation ID: [id number] XR Chest 1 View Result Date: 07/23/2025 XR CHEST 1 VW Date of Exam: 07/23/2025 5:48 PM EDT Indication: pre admission. Comparison: None available. Findings: No focal consolidation or effusion. Left lower lobe granuloma is visualized. Skinfolds overlie the bilateral hemithoraces. There is no evidence of pneumothorax. The pulmonary vasculature appears within normal limits. Patient is post left subclavian dual-lead pacemaker placement. The cardiac and mediastinal silhouette appear unremarkable. No acute osseous abnormality identified. Impression: Impression: No radiographic evidence of acute chest process. Electronically Signed: López Haywood MD 07/23/2025 6:13 PM EDT Workstation ID: [id number] XR Foot 3+ View Left Result Date: 07/23/2025 XR FOOT 3+ VW LEFT Date of Exam: 07/23/2025 5:27 PM EDT Indication: left foot/great toe pain/swelling/redness. TECHNIQUE: Left foot. COMPARISON: None available. FINDINGS: OSSEOUS STRUCTURES: There is normal alignment. No acute fracture or subluxation identified. Osteopenia/osteoporosis. No acute blastic or lytic lesion identified. JOINT SPACES: Mild degenerative changes present. No significant joint space loss. No significant joint effusion. SOFT TISSUES: No significant swelling present. Soft tissue air or radiopaque foreign body not present. RECOMMENDATIONS: Delayed plain film imaging in 7-14days could be helpful in the setting of trauma. Subtle fractures can become more apparent on delayed imaging due to normal process of a healing fracture. Also, CT is more sensitive to subtle radiographically occult fracture. MRI is more sensitive to bone bruising, ligamentous and soft tissue injury. MRI and triple phase bone scan is more sensitive to the subtle/early changes of osteomyelitis. If fracture is present and patient age > or equal to 65 years old, the patient should be evaluated or treated for osteoporosis. Impression: 1. No acute fracture or posttraumatic subluxation identified. Electronically Signed: Hay Saldana MD 07/23/2025 5:52 PM EDT Workstation ID: [id number] I have personally reviewed the therapy plans: [] PT/OT/ ST Therapy Plans Current medications: Scheduled Meds:[Held by provider] apixaban, 2.5 mg, Oral, Q12H budesonide-formoterol, 2 puff, Inhalation, BID - RT carvedilol, 6.25 mg, Oral, Q12H cefTRIAXone, 2,000 mg, Intravenous, Q24H [Held by provider] clopidogrel, 75 mg, Oral, Daily digoxin, 125 mcg, Oral, Daily famotidine, 40 mg, Oral, Daily gabapentin, 300 mg, Oral, Q12H insulin regular, 2-7 Units, Subcutaneous, Q6H magnesium sulfate, 4 g, Intravenous, Once pravastatin, 40 mg, Oral, Nightly sodium chloride, 10 mL, Intravenous, Q12H vancomycin, 18.8 mg/kg, Intravenous, Q24H Continuous Infusions:heparin, 19 Units/kg/hr, Last Rate: 19 Units/kg/hr (07/24/25 0635) Pharmacy to Dose Heparin, Pharmacy to dose vancomycin, sodium chloride, 75 mL/hr, Last Rate: 75 mL/hr (07/24/25 2536) PRN Meds:. acetaminophen OR acetaminophen OR acetaminophen ALPRAZolam aluminum-magnesium hydroxide-simethicone senna-docusate sodium AND polyethylene glycol AND bisacodyl AND bisacodyl Calcium Replacement - Follow Nurse / BPA Driven Protocol dextrose dextrose glucagon (human recombinant) HYDROcodone-acetaminophen HYDROmorphone AND naloxone ipratropium-albuterol Magnesium Cardiology Dose Replacement - Follow Nurse / BPA Driven Protocol nitroglycerin ondansetron Pharmacy to Dose Heparin Pharmacy to dose vancomycin Phosphorus Replacement - Follow Nurse / BPA Driven Protocol Potassium Replacement - Follow Nurse / BPA Driven Protocol [COMPLETED] Insert Peripheral IV AND sodium chloride Assessment & Plan Assessment & Plan Active Hospital Problems Diagnosis POA Critical limb ischemia of left lower extremity [I70.222] Yes PAD (peripheral artery disease) [I73.9] Yes Type 2 diabetes mellitus with diabetic neuropathy, without long-term current use of insulin [E11.40] Yes Primary hypertension [I10] Yes Mild intermittent asthma without complication [J45.20] Yes Presence of cardiac pacemaker [Z95.0] Yes Resolved Hospital Problems No resolved problems to display. Brief Hospital Course to date: Hattie Zamora is a 85 y.o. female with history of PAD, diabetes, hypertension who was admitted forworsening left foot wound following recent angioplasty. Per daughter, patient had been seen by [facility] for multiple stent placements and most recently had angioplasty of left lower extremity by cardiology. The daughter is unsure what vessels were manipulated but she did note that her toe wound and ulcer got worse after the procedure. Patient had been seen by podiatry and daughter had been wrapping her toe. She developed a blister from gauze that had been covering the top of her foot. When she removed the gauze, the blister and skin came off causing foot wound. Now admitted for concern for worsening infection/pain. Worsening left foot wound - Vascular surgery consulted - Patient recently had angioplasty on 06/18 for left lower extremity occlusion by wood bucker per family report. - Continue heparin drip - Plavix and Eliquis on hold - Continue empiric antibiotics - CTA of LLE shows occlusion of left femoral artery, superficial femoral artery and popliteal arteries with reconstitution of infrapopliteal runoff with a patent anterior tibial artery to the ankle - Continue gabapentin Diabetes type 2 -SSI Hypertension -Continue carvedilol -Continue digoxin Expected Discharge Location and Transportation:? Pending Expected Discharge Expected Discharge Date: 07/25/2025; Expected Discharge Time: VTE Prophylaxis: Pharmacologic VTE prophylaxis orders are present. AM-PAC 6 Clicks Score (PT): 18 (07/24/25 0800) CODE STATUS: Code Status and Medical Interventions: CPR (Attempt to Resuscitate); Full Support Ordered at: 07/23/252224 Code Status (Patient has no pulse and is not breathing): CPR (Attempt to Resuscitate) Medical Interventions (Patient has pulse or is breathing): Full Support Level Of Support Discussed With: Patient Norma Osman Whitney DO 07/24/25 * Randy Mathis, PharmD - 07/24/2025 3:51 AM EDT Pharmacy Consult-Vancomycin Dosing Hattie Zamora is a 85 y.o. female receiving vancomycin therapy. Indication: SSTI Consulting Provider: hospitalist ID Consult: No Goal AUC: 400 - 600 mg/L*hr Current Antimicrobial Therapy Anti-Infectives (From admission, onward) Ordered Dose/Rate Route Frequency Start Stop 07/24/25 0322 cefTRIAXone (ROCEPHIN) 2,000 mg in sodium chloride 0.9 % 100 mL MBP Ordering Provider: Amada Ibrahim MD 2,000 mg 200 mL/hr over 30 Minutes Intravenous Every 24 Hours 07/24/25199907/29/25 19507/24/25 0348 vancomycin (VANCOCIN) 1,000 mg in sodium chloride 0.9 % 250 mL IVPB-VTB Ordering Provider: Randy Mathis, PharmD Placed in And Linked Group 18.8 mg/kg ?? 53.3 kg 250 mL/hr over 60 Minutes Intravenous Every 24 Hours 07/24/25199907/28/25195807/24/25320 Pharmacy to dose vancomycin Ordering Provider: Amada Ibrahim MD Not Applicable Continuous PRN 07/24/2532007/29/2531907/23/252007 cefTRIAXone (ROCEPHIN) 1,000 mg in sodium chloride 0.9 % 100 mL MBP Ordering Provider: Vipul Barney MD 1,000 mg 200 mL/hr over 30 Minutes Intravenous Once 07/23/25202307/23/25214507/23/251950 vancomycin (VANCOCIN) 1,000 mg in sodium chloride 0.9 % 250 mL IVPB-VTB Ordering Provider: Vipul Barney MD 20 mg/kg ?? 47.2 kg 250 mL/hr over 60 Minutes Intravenous Once 07/23/25200607/23/252112 Allergies Allergies as of 07/23/2025 - Reviewed 07/23/2025 Allergen Reaction Noted Doxycycline Unknown - High Severity 07/23/2025 Morphine Mental Status Change 07/23/2025 Penicillins Unknown - High Severity 07/23/2025 Sulfur Unknown - High Severity 07/23/2025 Labs Results from last 7 days Lab Units 07/23/25 1732 BUN mg/dL 10.8 CREATININE mg/dL 0.63 Results from last 7 days Lab Units 07/23/25 1732 WBC 10*3/mm3 12.54* Evaluation of Dosing Last Dose Received in the ED/Outside Facility: Vancomycin 1000 mg IV 07/23 at 20:03 Is Patient on Dialysis or Renal Replacement: No Ht - 149.9 cm (59.02 ) Wt - 53.3 kg (117 lb 8 oz) Estimated Creatinine Clearance: 55.9 mL/min (by C-G formula based on SCr of 0.63 mg/dL). Intake & Output (last 3 days) None Microbiology and Radiology Microbiology Results (last 10 days) No results found for the last 240 hours. Reported Vancomycin Levels Insight[employer] AUC Calculation: Current AUC: -- mg/L*hr Predicted Steady State AUC on Current Dose: -- mg/L*hr Predicted Steady State AUC on New Dose: 409 mg/L*hr Assessment/Plan: 1. Vancomycin 1000 mg IV q 24 hours 2. Vancomycin trough is scheduled 07/25 at 18:00 prior to the 3rd dose. Predicted Steady State AUC at current dose: 409 mg/L*hr. Randy Mathis PharmD, [facility] 07/24/2025 03:48 EDT documented in this encounter H&P Notes * Amada Ibrahim MD - 07/23/2025 10:26 PM EDT Images from the original note were not included. [facility] Medicine Services HISTORY AND PHYSICAL Patient Name: Hattie Zamora : 1940 Primary Care Physician: Alexis Montanez MD Date of admission: 07/23/2025 Subjective Subjective Chief Complaint: Foot pain and worsening wound on big toe after angioplasty procedure in June HPI: Hattie Zamora is a 85 y.o. female a history of peripheral arterial disease, pacemaker placement, and previous toe amputations who presents with worsening left foot wound following recent angioplasty. The patient's foot problems began after a recent hospitalization, starting prior to June. Her daughter noted that she was complaining of left foot pain and observed her slowing down. Before undergoing angioplasty on June 18, she had clipped her toenail and developed what appears to be a small wound. During the angioplasty procedure, surgeons opened vessels from the knee down due to occlusion behind the left knee. Following the angioplasty, the area on her foot worsened. Initially, the family attempted home treatment with Triple Antibiotic ointment after their regular physician suggested seeing a virtual reality specialist. She was seen by a typing section chief last Tuesday who treated the wound on her toe. Yesterday, Dr. Alvares (typing section chief) evaluated the wound and referred her for further care because it appeared worse. The typing section chief had removed the top layer of skin from the big toe and applied Triple Antibiotic ointment. The patient reports that the whole foot is painful. When asked about sensation, she states she doesn't feel anything but pain in the affected foot. She has a history of toe amputations that occurred 2 or 3 years ago in the right foot. Prior to this current issue, she reports her mobility was fine, though she had given up driving some time ago. The patient has a longstanding history of diabetes; however recently her PCP reports her A1Cs have been borderline and her physician does not consider her diabetic. She does not take regular diabeticmedication, though her family occasionally checks her blood sugar and gives her half a metformin ifit gets high. She experiences dizziness when her blood sugar is either too low or high. She denies smoking cigarettes, drinking alcohol, or using illegal drugs. Home Medications and Supplements - Triple Antibiotic ointment - Applied to toe wound at home and by typing section chief. - Metformin: Given half a tablet occasionally when blood sugar gets high. - Carvedilol 6.25 mg twice daily for high blood pressure. - Eliquis 2.5mg bid for peripheral arterial disease. - Plavix 75 mg daily for the legs. - Digoxin 0.125 mg daily - Symbicort for asthma. -Gabapentin 600mg bid Medical POA: Grand daughter Desiree Personal History No past medical history on file. No past surgical history on file. Family History: family history is not on file. Social History: Social History Social History Narrative Not on file Medications: Available home medication information reviewed. Allergies Allergen Reactions Doxycycline Unknown - High Severity Morphine Mental Status Change Penicillins Unknown - High Severity Sulfur Unknown - High Severity Objective Objective Vital Signs: Temp: [98 ??F (36.7 ??C)] 98 ??F (36.7 ??C) Heart Rate: [68-77] 68 Resp: [14-18] 14 BP: (128-173)/(65-83) 137/65 Physical Exam Vitals reviewed. Constitutional: General: She is not in acute distress. Appearance: Normal appearance. She is normal weight. HENT: Head: Normocephalic and atraumatic. Right Ear: External ear normal. Left Ear: External ear normal. Nose: Nose normal. Mouth/Throat: Mouth: Mucous membranes are moist. Pharynx: Oropharynx is clear. Eyes: General: No scleral icterus. Extraocular Movements: Extraocular movements intact. Pupils: Pupils are equal, round, and reactive to light. Cardiovascular: Rate and Rhythm: Normal rate and regular rhythm. Pulses: Normal pulses. Heart sounds: Normal heart sounds. No murmur heard. Pulmonary: Effort: Pulmonary effort is normal. No respiratory distress. Breath sounds: Normal breath sounds. No stridor. No wheezing or rales. Abdominal: General: Abdomen is flat. Bowel sounds are normal. There is no distension. Palpations: Abdomen is soft. Tenderness: There is no abdominal tenderness. There is no guarding. Genitourinary: Comments: deferred Musculoskeletal: General: Swelling, tenderness, deformity and signs of injury present. Normal range of motion. Cervical back: Normal range of motion and neck supple. Comments: +2 cm open red ulcer on top of the left hallux Darkening of the second left toe digit Pulses not palpable by hand Left foot slightly swollen and pallor Right 3rd and 4th digit toe amputations Skin: General: Skin is warm and dry. Capillary Refill: Capillary refill takes less than 2 seconds. Coloration: Skin is not jaundiced. Findings: Lesion present. Comments: Wound ulcer over left hallux Neurological: General: No focal deficit present. Mental Status: She is alert and oriented to person, place, and time. Cranial Nerves: No cranial nerve deficit. Sensory: No sensory deficit. Motor: Weakness present. Gait: Gait abnormal. Psychiatric: Mood and Affect: Mood normal. Behavior: Behavior normal. Thought Content: Thought content normal. Result Review: I have personally reviewed the results from the time of this admission to 07/23/2025 23:02 EDT and agree with these findings: [x] Laboratory list / accordion [] Microbiology [x] Radiology [x] EKG/Telemetry [] Cardiology/Vascular [] Pathology [] Old records [] Other: Most notable findings include: LAB RESULTS: Lab 07/23/25 2200 07/23/25 1732 WBC -- 12.54* HEMOGLOBIN -- 12.6 HEMATOCRIT -- 38.7 PLATELETS -- 392 NEUTROS ABS -- 7.15* IMMATURE GRANS (ABS) -- 0.03 LYMPHS ABS -- 3.24* MONOS ABS -- 1.24* EOS ABS -- 0.84* MCV -- 87.6 LACTATE -- 1.2 PROTIME 17.0* -- INR 1.30* -- APTT 38.1* -- Lab 07/23/25 1732 SODIUM 134* POTASSIUM 4.3 CHLORIDE 96* CO2 25.9 ANION GAP 12.1 BUN 10.8 CREATININE 0.63 EGFR 87.6 GLUCOSE 124* CALCIUM 9.5 Lab 07/23/25 1732 TOTAL PROTEIN 7.2 ALBUMIN 3.9 GLOBULIN 3.3 ALT (SGPT) 15 AST (SGOT) 23 BILIRUBIN 0.4 ALK PHOS 61 Lab 07/23/25 1954 07/23/25 1732 HSTROP T 21* 26* Microbiology Results (last 10 days) No results found for the last [address] Lower Extremity Left Without Contrast Result Date: 07/23/2025 CT LOWER EXTREMITY LEFT WO CONTRAST Date of Exam: 07/23/2025 7:17 PM EDT Indication: left great toe ulcer, left foot redness. Comparison: Left foot radiographs dated 07/23/2025 Technique: Axial CT images were obtained of the left lower extremity without contrast administration. Reconstructed coronal and sagittal images were also obtained. Automated exposure control and iterative construction methods were used. Findings: There is focal soft tissue thickening along the medial aspect of the distal first phalanx. No periosteal reaction or bony destructive changes. No soft tissue air or radiopaque foreign bodies there is subtle skin irregularity, possibly the site of the ulceration. The foot is intact without acute fractures or dislocations. There are degenerative changes at the sesamoid bones of the great toe. There are degenerative changes in the tarsal bones. The Lisfranc joint is intact. There is a small to moderate plantar calcaneal enthesophyte. There is diffuse subcutaneous edema around the foot and the lateral aspect of the ankle. Soft tissue fat planes in intramuscular compartments are preserved. No pathologic enhancement. No loculated fluid collections. Impression: Impression: 1.Focal soft tissue thickening along the medial aspect of the distal first phalanx with subtle skin irregularity, possibly the site of the ulceration. No CT signs of osteomyelitis. No soft tissue air or radiopaque foreign bodies or evidence of soft tissue abscess. 2.Diffuse subcutaneous edema around the foot and lateral aspect of the ankle. This could be due to cellulitis or possibly venous insufficiency, correlation with clinical scenario for this is needed. 3.Degenerative changes as described above. No acute bony abnormalities. Electronically Signed: Shaq Lewis DO 07/23/2025 8:07 PM EDT Workstation ID: [id number] XR Chest 1 View Result Date: 07/23/2025 XR CHEST 1 VW Date of Exam: 07/23/2025 5:48 PM EDT Indication: pre admission. Comparison: None available. Findings: No focal consolidation or effusion. Left lower lobe granuloma is visualized. Skinfolds overlie the bilateral hemithoraces. There is no evidence of pneumothorax. The pulmonary vasculature appears within normal limits. Patient is post left subclavian dual-lead pacemaker placement. The cardiac and mediastinal silhouette appear unremarkable. No acute osseous abnormality identified. Impression: Impression: No radiographic evidence of acute chest process. Electronically Signed: López Haywood MD 07/23/2025 6:13 PM EDT Workstation ID: [id number] XR Foot 3+ View Left Result Date: 07/23/2025 XR FOOT 3+ VW LEFT Date of Exam: 07/23/2025 5:27 PM EDT Indication: left foot/great toe pain/swelling/redness. TECHNIQUE: Left foot. COMPARISON: None available. FINDINGS: OSSEOUS STRUCTURES: There is normal alignment. No acute fracture or subluxation identified. Osteopenia/osteoporosis. No acute blastic or lytic lesion identified. JOINT SPACES: Mild degenerative changes present. No significant joint space loss. No significant joint effusion. SOFT TISSUES: No significant swelling present. Soft tissue air or radiopaque foreign body not present. RECOMMENDATIONS: Delayed plain film imaging in 7-14days could be helpful in the setting of trauma. Subtle fractures can become more apparent on delayed imaging due to normal process of a healing fracture. Also, CT is more sensitive to subtle radiographically occult fracture. MRI is more sensitive to bone bruising, ligamentous and soft tissue injury. MRI and triple phase bone scan is more sensitive to the subtle/early changes of osteomyelitis. If fracture is present and patient age > or equal to 65 years old, the patient should be evaluated or treated for osteoporosis. Impression: 1. No acute fracture or posttraumatic subluxation identified. Electronically Signed: Hay Saldana MD 07/23/2025 5:52 PM EDT Workstation ID: [id number] Assessment & Plan Assessment & Plan Critical limb ischemia of left lower extremity PAD (peripheral artery disease) Type 2 diabetes mellitus with diabetic neuropathy, without long-term current use of insulin Primary hypertension Mild intermittent asthma without complication Presence of cardiac pacemaker Acute LLE ischemia Chronic Peripheral arterial disease Chronic Peripheral Neuropathy Assessment: Patient has a known history of peripheral arterial disease, managed with Eliquis and Plavix. Recent angioplasty was performed on June 18 due to occlusion behind the left knee. Now presents with acute worsening of left foot pain and ulceration of hallux ongoing for several weeks; concerning for limb ischemia Plan: - Admit to medicine with telemetry monitoring - Consultation with vascular surgery case discussed between ER MD and vascular surgeon Dr. Benedict. -NPO status pending surgery evaluation in the morning - Initiate heparin drip will hold home dose Eliquis and Plavix overnight; will defer to vascularsurgery when to restart -empiric IV abxs with IV vancomycin and ceftrx -- Pulses not palpable with by hand, will order Doppler checks every 2 hours - Order CTA scan of the left lower extremity tonight to assess circulation - Schedule lower extremity arterial doppler in the morning -continue home dose gabapentin -PT/OT evaluation to assess gait stability -CT LLE w/o contrast: .Focal soft tissue thickening along the medial aspect of the distal first phalanx with subtle skin irregularity, possibly the site of the ulceration. No CT signs of osteomyelitis. No soft tissue air or radiopaque foreign bodies or evidence of soft tissue abscess..Diffuse subcutaneous edema around the foot and lateral aspect of the ankle. This could be due to cellulitis or possibly venous insufficiency, correlation with clinical scenario for this is needed.No acute bony abnormalities. 2. T2DM HLD Plan: - Implement sliding scale insulin during hospital stay - Check blood glucose every 6 hours -Check A1C and Lipid panel with am labs - Resume home dose Crestor 3. Hypertension - Resume home dose Coreg 4. History of Cardiac arrhythmia s/p pacemaker Chronic Afib -Patient has a pacemaker that was placed 4 years ago, indicating a history of cardiac arrhythmia; daughter believes the rhythm was atrial fibrillation - Continue home dose Digoxin and BB 5. Chronic Asthma - stable - Patient has a history of asthma, currently managed with Symbicort. - Continue Symbicort and duonebs prn wheezing or shortness of breath -CXR: No radiographic evidence of acute chest process. Total time spent: 45 minutes Time spent includes time reviewing chart, odvo-th-wjwe time, counseling patient/family/caregiver, ordering medications/tests/procedures, communicating with other health daycare worker, documenting clinical information in the electronic health record, and coordination of care. VTE Prophylaxis: Pharmacologic VTE prophylaxis orders are present. CODE STATUS: Code Status and Medical Interventions: CPR (Attempt to Resuscitate); Full Support Ordered at: 07/23/252224 Code Status (Patient has no pulse and is not breathing): CPR (Attempt to Resuscitate) Medical Interventions (Patient has pulse or is breathing): Full Support Level Of Support Discussed With: Patient Expected Discharge Expected Discharge Date: 07/25/2025; Expected Discharge Time: Amada Ibrahim MD 07/23/25 documented in this encounter Consult Notes * Virgie Rodriguez APRN - 07/24/2025 1:36 PM EDTAssociated Order(s): Inpatient Vascular Surgery Consult Images from the original note were not included. VASCULAR SURGERY CONSULT NOTE Inpatient Vascular Surgery Consult Consult performed by: Virgie Rodriguez APRN Consult ordered by: Norma Whitney DO Reason for consult: PAD, non-healing toe wound History of Present Illness: Hattie is a 85 y.o. female presenting with past medical history of PAD, pacemaker placement, previous toe amputations, etc., that presented to the ER for worsening left foot wound following a recent angioplasty. She reportedly began having issues after recent hospitalization with a angio around June 18, 2025. Daughter and medical POA reported that she tried to cut her toenails herself that caused a place that has not healed since. It is also noted that the area on her foot has gotten worse after her angio instead of better. Daughter reports that cardiac interventionalist in [place] has been following her, and that she has had multiple revascularizations and stent placements. Daughter r eports that her provider told her that she was running out of options, but that she most likely would not be a candidate for amputation due to her cardiac history. Family reports that she has been following with a virtual reality specialist and typing section chief outpatient who remove the top layer of skin from the left great toe but referred her here for further treatment due to worsening appearance. Vascular surgery was consulted. Past Medical History She has no past medical history on file. Past Surgical History She has no past surgical history on file. Family History: She family history is not on file. Allergies: Doxycycline, Morphine, Penicillins, and Sulfur Medications: Medications Prior to Admission Medication Sig Dispense Refill Last Dose/Taking apixaban (ELIQUIS) 2.5 MG tablet tablet Take 1 tablet by mouth 2 (Two) Times a Day. budesonide-formoterol (SYMBICORT) 160-4.5 MCG/ACT inhaler Inhale 2 puffs 2 (Two) Times a Day. carvedilol (COREG) 6.25 MG tablet Take 1 tablet by mouth 2 (Two) Times a Day With Meals. clopidogrel (PLAVIX) 75 MG tablet Take 1 tablet by mouth Daily. digoxin (LANOXIN) 125 MCG tablet Take 1 tablet by mouth Daily. gabapentin (NEURONTIN) 300 MG capsule Take 2 capsules by mouth 2 (Two) Times a Day With Meals. pravastatin (PRAVACHOL) 40 MG tablet Take 1 tablet by mouth Daily. Review of Systems Constitutional: Positive for activity change. Negative for fever. Most history and information obtained from chart and daughter along with medical POA HENT: Positive for hearing loss. Eyes: Negative. Respiratory: Negative for shortness of breath. Cardiovascular: Negative. Gastrointestinal: Negative. Endocrine: Negative. Musculoskeletal: Positive for arthralgias and gait problem. Skin: Positive for color change and wound. Left great toe wound Allergic/Immunologic: Negative. Neurological: Positive for weakness. Psychiatric/Behavioral: Positive for confusion. Vitals Blood pressure 127/48, pulse 60, temperature 97.6 ??F (36.4 ??C), temperature source Oral, resp. rate 18, height 149.9 cm (59.02 ), weight 53.3 kg (117 lb 8 oz), SpO2 94%. Physical Exam Gen: Awake; elderly white female; resting in bed; family at bedside HEENT: [place] conjunctivae, MMM Lungs: Normal respiratory effort Ext: motor intact; left great toe ulcer with discoloration/eschar/surrounding erythema; +left femoral pulse; no palpable left pedals Skin: Exposed skin warm Neuro: Follows simple commands Psych: Apropriate mood ?baseline memory loss? Relevant Results: Imaging Results (Last 48 Hours) Procedure Component Value Units Date/Time CT Angiogram Lower Extremity Bilateral [[id number]] Collected: 07/23/25 0981 Updated: 07/24/25 0001 Narrative: CT ANGIOGRAM LOWER EXTREMITY BILATERAL Date of Exam: 07/23/2025 10:56 PM EDT Indication: critical limb ischemia. Comparison: CT non contrast from earlier same day Technique: CTA of the bilateral lower extremities was performed after the uneventful intravenous administration of iodinated contrast. Reconstructed coronal and sagittal images were also obtained. Inaddition, a 3-D volume rendered image was created for interpretation. Automated exposure control and iterative reconstruction methods were used. Findings: There is distal abdominal aortic atherosclerosis and atherosclerosis of the bilateral common iliac arteries. On the right side, there is calcific atherosclerosis with post treatment changes of stenting of theright external iliac artery. Just proximal to the iliac stent, there is moderate grade stenosis with approximately 50% stenosis at the bifurcation proximally on the right. There is stenting of the right superficial femoral artery which is patent.Beyond the stent and through the area of the James's canal there is diffuse atherosclerosis of theright SFA but there is no occlusion. There is a stent from the distal SFA through the popliteal artery. This appears to be patent. There is a widely patent anterior tibial artery. The peroneal and dorsalis pedis arteries are diffusely diseased with calcification but there does appear to be a three-vessel runoff to the ankle. There is a patent left common iliac artery stent which is widely patent. There is disease of the internal iliac artery. The left external iliac arteries widely patent. There is a stent of the left femoral artery which is occluded just beyond the profunda femoris artery which is patent. The entirety of the SFA is occluded to the level of the popliteal which is also occluded. There is reconstitution of the infrapopliteal runoff with diffuse calcific atherosclerosis of the peroneal and dorsalis pedis arteries with a patent anterior tibial artery to the ankle. Impression: Impression: 1.There is occlusion of the left femoral artery, superficial femoral artery and popliteal arteries with reconstitution of the infrapopliteal runoff with a patent anterior tibial artery to the ankle. 2.There is a patent right superficial femoral artery stent with a three-vessel runoff to the ankle. Electronically Signed: Vinod Cates MD 07/23/2025 11:58 PM EDT Workstation ID: [id number] CT Lower Extremity Left Without Contrast [[id number]] Collected: 07/23/252000 Updated: 07/23/252009 Narrative: CT LOWER EXTREMITY LEFT WO CONTRAST Date of Exam: 07/23/2025 7:17 PM EDT Indication: left great toe ulcer, left foot redness. Comparison: Left foot radiographs dated 07/23/2025 Technique: Axial CT images were obtained of the left lower extremity without contrast administration. Reconstructed coronal and sagittal images were also obtained. Automated exposure control and iterative construction methods were used. Findings: There is focal soft tissue thickening along the medial aspect of the distal first phalanx. No periosteal reaction or bony destructive changes. No soft tissue air or radiopaque foreign bodies there issubtle skin irregularity, possibly the site of the ulceration. The foot is intact without acute fractures or dislocations. There are degenerative changes at the sesamoid bones of the great toe. There are degenerative changes in the tarsal bones. The Lisfranc joint is intact. There is a small to moderate plantar calcaneal enthesophyte. There is diffuse subcutaneous edema around the foot and the lateral aspect of the ankle. Soft tissue fat planes in intramuscular compartments are preserved. No pathologic enhancement. No loculated fluid collections. Impression: Impression: 1.Focal soft tissue thickening along the medial aspect of the distal first phalanx with subtle skinirregularity, possibly the site of the ulceration. No CT signs of osteomyelitis. No soft tissue airor radiopaque foreign bodies or evidence of soft tissue abscess. 2.Diffuse subcutaneous edema around the foot and lateral aspect of the ankle. This could be due to cellulitis or possibly venous insufficiency, correlation with clinical scenario for this is needed. 3.Degenerative changes as described above. No acute bony abnormalities. Electronically Signed: Shaq Lewis DO 07/23/2025 8:07 PM EDT Workstation ID: [id number] XR Chest 1 View [[id number]] Collected: 07/23/251811 Updated: 07/23/251815 Narrative: XR CHEST 1 VW Date of Exam: 07/23/2025 5:48 PM EDT Indication: pre admission. Comparison: None available. Findings: No focal consolidation or effusion. Left lower lobe granuloma is visualized. Skinfolds overlie the bilateral hemithoraces. There is no evidence of pneumothorax. The pulmonary vasculature appears within normal limits. Patient is post left subclavian dual-lead pacemaker placement. The cardiac and mediastinal silhouette appear unremarkable. No acuteosseous abnormality identified. Impression: Impression: No radiographic evidence of acute chest process. Electronically Signed: López Haywood MD 07/23/2025 6:13 PM EDT Workstation ID: [id number] XR Foot 3+ View Left [[id number]] Collected: 07/23/251749 Updated: 07/23/251754 Narrative: XR FOOT 3+ VW LEFT Date of Exam: 07/23/2025 5:27 PM EDT Indication: left foot/great toe pain/swelling/redness. TECHNIQUE: Left foot. COMPARISON: None available. FINDINGS: OSSEOUS STRUCTURES: There is normal alignment. No acute fracture or subluxation identified. Osteopenia/osteoporosis. No acute blastic or lytic lesion identified. JOINT SPACES: Mild degenerative changes present. No significant joint space loss. No significant joint effusion. SOFT TISSUES: No significant swelling present. Soft tissue air or radiopaque foreign body not present. RECOMMENDATIONS: Delayed plain film imaging in 7-14 days could be helpful in the setting of trauma.Subtle fractures can become more apparent on delayed imaging due to normal process of a healing fracture. Also, CT is more sensitive to subtle radiographically occult fracture. MRI is more sensitive to bone bruising, ligamentous and soft tissue injury. MRI and triple phase bone scan is more sensitive to the subtle/early changes of osteomyelitis. If fracture is present and patient age > or equal to 65 years old, the patient should be evaluated or treated for osteoporosis. Impression: 1. No acute fracture or posttraumatic subluxation identified. Electronically Signed: Hay Saldana MD 07/23/2025 5:52 PM EDT Workstation ID: [id number] Lab Results (last 48 hours) Procedure Component Value Units Date/Time POC Glucose Once [[id number]] (Normal) Collected: 07/24/25 1130 Specimen: Blood Updated: 07/24/25 1133 Glucose 93 mg/dL Comment: Serial Number: [id number]: [id number] POC Glucose Q6H [[id number]] (Normal) Collected: 07/24/25 0753 Specimen: Blood Updated: 07/24/25 0755 Glucose 106 mg/dL Comment: Serial Number: [id number]: [id number] aPTT [[id number]] (Abnormal) Collected: 07/24/25 0445 Specimen: Blood Updated: 07/24/25616 PTT 59.2 seconds Narrative: PTT = The equivalent PTT values for the therapeutic range of heparin levels at 0.3 to 0.5 U/ml are 60 to 70 seconds. Hemoglobin A1c [[id number]] (Abnormal) Collected: 07/24/25444 Specimen: Blood Updated: 07/24/25544 Hemoglobin A1C 6.03 % Narrative: Hemoglobin A1C Ranges: Increased Risk for Diabetes 5.7% to 6.4% Diabetes >= 6.5% Diabetic Goal < 7.0% Comprehensive Metabolic Panel [[id number]] (Abnormal) Collected: 07/24/25444 Specimen: Blood Updated: 07/24/25524 Glucose 118 mg/dL BUN 10.3 mg/dL Creatinine 0.54 mg/dL Sodium 133 mmol/L Potassium 4.1 mmol/L Chloride 99 mmol/L CO2 23.7 mmol/L Calcium 8.6 mg/dL Total Protein 5.8 g/dL Albumin 3.2 g/dL ALT (SGPT) 10 U/L AST (SGOT) 19 U/L Alkaline Phosphatase 49 U/L Total Bilirubin 0.2 mg/dL Globulin 2.6 gm/dL Comment: Calculated Result A/G Ratio 1.2 g/dL BUN/Creatinine Ratio 19.1 Anion Gap 10.3 mmol/L eGFR 90.9 mL/min/1.73 Narrative: GFR Categories in Chronic Kidney Disease (CKD) GFR Category GFR (mL/min/1.73) Interpretation G1 90 or greater Normal or high (1) G2 60-89 Mild decrease (1) G3a 45-59 Mild to moderate decrease G3b 30-44 Moderate to severe decrease G4 15-29 Severe decrease G5 14 or less Kidney failure (1)In the absence of evidence of kidney disease, neither GFR category G1 or G2 fulfill the criteriafor CKD. eGFR calculation 2020 CKD-EPI creatinine equation, which does not include race as a factor Digoxin Level [[id number]] (Normal) Collected: 07/24/25444 Specimen: Blood Updated: 07/24/25524 Digoxin 0.62 ng/mL Narrative: Results may be falsely increased if patient taking Biotin. Magnesium [[id number]] (Normal) Collected: 07/24/25444 Specimen: Blood Updated: 07/24/25524 Magnesium 1.7 mg/dL Phosphorus [[id number]] (Normal) Collected: 07/24/25444 Specimen: Blood Updated: 07/24/25524 Phosphorus 3.6 mg/dL Lipid Panel [[id number]] Collected: 07/24/25444 Specimen: Blood Updated: 07/24/25524 Total Cholesterol 105 mg/dL Triglycerides 65 mg/dL HDL Cholesterol 50 mg/dL LDL Cholesterol 41 mg/dL VLDL Cholesterol 14 mg/dL LDL/HDL Ratio 0.84 Narrative: Cholesterol Reference Ranges (U.S. Department of Health and Human Services ATP III Classifications) Desirable <200 mg/dL Borderline High 200-239 mg/dL High Risk >240 mg/dL Triglyceride Reference Ranges (U.S. Department of Health and Human Services ATP III Classifications) Normal <150 mg/dL Borderline High 150-199 mg/dL High 200-499 mg/dL Very High >500 mg/dL HDL Reference Ranges (U.S. Department of Health and Human Services ATP III Classifications) Low <40 mg/dl (major risk factor for CHD) High >60 mg/dl ('negative' risk factor for CHD) LDL Reference Ranges (U.S. Department of Health and Human Services ATP III Classifications) Optimal <100 mg/dL Near Optimal 100-129 mg/dL Borderline High 130-159 mg/dL High 160-189 mg/dL Very High >189 mg/dL LDL is calculated using the NIH LDL-C calculation. High Sensitivity Troponin T [[id number]] (Abnormal) Collected: 07/24/25444 Specimen: Blood Updated: 07/24/25524 HS Troponin T 23 ng/L Narrative: High Sensitive Troponin T Reference Range: <14.0 ng/L- Negative Female for AMI <22.0 ng/L- Negative Male for AMI >=14 - Abnormal Female indicating possible myocardial injury. >=22 - Abnormal Male indicating possible myocardial injury. Clinicians would have to utilize clinical acumen, EKG, Troponin, and serial changes to determine ifit is an Acute Myocardial Infarction or myocardial injury due to an underlying chronic condition. CK [[id number]] (Normal) Collected: 07/24/25444 Specimen: Blood Updated: 07/24/25524 Creatine Kinase 61 U/L Lactic Acid, Plasma [[id number]] (Normal) Collected: 07/24/25444 Specimen: Blood Updated: 07/24/25516 Lactate 0.6 mmol/L Comment: Falsely depressed results may occur on samples drawn from patients receiving N-Acetylcysteine (NAC) or Metamizole. CBC Auto Differential [[id number]] (Abnormal) Collected: 07/24/25444 Specimen: Blood Updated: 07/24/25453 WBC 8.96 10*3/mm3 RBC 3.77 10*6/mm3 Hemoglobin 10.8 g/dL Hematocrit 33.8 % MCV 89.7 fL MCH 28.6 pg MCHC 32.0 g/dL RDW 12.2 % RDW-SD 40.1 fl MPV 8.7 fL Platelets 282 10*3/mm3 Neutrophil % 55.9 % Lymphocyte % 27.9 % Monocyte % 9.2 % Eosinophil % 6.1 % Basophil % 0.3 % Immature Grans % 0.6 % Neutrophils, Absolute 5.01 10*3/mm3 Lymphocytes, Absolute 2.50 10*3/mm3 Monocytes, Absolute 0.82 10*3/mm3 Eosinophils, Absolute 0.55 10*3/mm3 Basophils, Absolute 0.03 10*3/mm3 Immature Grans, Absolute 0.05 10*3/mm3 nRBC 0.0 /100 WBC Heparin Anti-Xa [[id number]] (Abnormal) Collected: 07/23/252199 Specimen: Blood from Arm, Left Updated: 07/23/252303 Heparin Anti-Xa (UFH) >1.10 IU/ml Protime-INR [[id number]] (Abnormal) Collected: 07/23/252199 Specimen: Blood from Arm, Left Updated: 07/23/252231 Protime 17.0 Seconds INR 1.30 aPTT [[id number]] (Abnormal) Collected: 07/23/252199 Specimen: Blood from Arm, Left Updated: 07/23/252231 PTT 38.1 seconds Narrative: PTT = The equivalent PTT values for the therapeutic range of heparin levels at 0.3 to 0.5 U/ml are 60 to 70 seconds. High Sensitivity Troponin T 1Hr [[id number]] (Abnormal) Collected: 07/23/251953 Specimen: Blood Updated: 07/23/252018 HS Troponin T 21 ng/L Troponin T Numeric Delta -5 ng/L Troponin T % Delta -19 Narrative: High Sensitive Troponin T Reference Range: <14.0 ng/L- Negative Female for AMI <22.0 ng/L- Negative Male for AMI >=14 - Abnormal Female indicating possible myocardial injury. >=22 - Abnormal Male indicating possible myocardial injury. Clinicians would have to utilize clinical acumen, EKG, Troponin, and serial changes to determine ifit is an Acute Myocardial Infarction or myocardial injury due to an underlying chronic condition. Blood Culture - Blood, Arm, Right [[id number]] Collected: 07/23/251734 Specimen: Blood from Arm, Right Updated: 07/23/251943 Blood Culture - Blood, Arm, Left [[id number]] Collected: 07/23/251744 Specimen: Blood from Arm, Left Updated: 07/23/251943 Comprehensive Metabolic Panel [[id number]] (Abnormal) Collected: 07/23/251731 Specimen: Blood Updated: 07/23/251801 Glucose 124 mg/dL BUN 10.8 mg/dL Creatinine 0.63 mg/dL Sodium 134 mmol/L Potassium 4.3 mmol/L Chloride 96 mmol/L CO2 25.9 mmol/L Calcium 9.5 mg/dL Total Protein 7.2 g/dL Albumin 3.9 g/dL ALT (SGPT) 15 U/L AST (SGOT) 23 U/L Alkaline Phosphatase 61 U/L Total Bilirubin 0.4 mg/dL Globulin 3.3 gm/dL Comment: Calculated Result A/G Ratio 1.2 g/dL BUN/Creatinine Ratio 17.1 Anion Gap 12.1 mmol/L eGFR 87.6 mL/min/1.73 Narrative: GFR Categories in Chronic Kidney Disease (CKD) GFR Category GFR (mL/min/1.73) Interpretation G1 90 or greater Normal or high (1) G2 60-89 Mild decrease (1) G3a 45-59 Mild to moderate decrease G3b 30-44 Moderate to severe decrease G4 15-29 Severe decrease G5 14 or less Kidney failure (1)In the absence of evidence of kidney disease, neither GFR category G1 or G2 fulfill the criteriafor CKD. eGFR calculation 2020 CKD-EPI creatinine equation, which does not include race as a factor High Sensitivity Troponin T [[id number]] (Abnormal) Collected: 07/23/251731 Specimen: Blood Updated: 07/23/251801 HS Troponin T 26 ng/L Narrative: High Sensitive Troponin T Reference Range: <14.0 ng/L- Negative Female for AMI <22.0 ng/L- Negative Male for AMI >=14 - Abnormal Female indicating possible myocardial injury. >=22 - Abnormal Male indicating possible myocardial injury. Clinicians would have to utilize clinical acumen, EKG, Troponin, and serial changes to determine ifit is an Acute Myocardial Infarction or myocardial injury due to an underlying chronic condition. Lactic Acid, Plasma [[id number]] (Normal) Collected: 07/23/251731 Specimen: Blood Updated: 07/23/25 1800 Lactate 1.2 mmol/L Comment: Falsely depressed results may occur on samples drawn from patients receiving N-Acetylcysteine (NAC) or Metamizole. CBC & Differential [[id number]] (Abnormal) Collected: 07/23/251731 Specimen: Blood Updated: 07/23/251743 Narrative: The following orders were created for panel order CBC & Differential. Procedure Abnormality Status --------- ------ CBC Auto Differential[[id number]] Abnormal Final result Please view results for these tests on the individual orders. CBC Auto Differential [[id number]] (Abnormal) Collected: 07/23/251731 Specimen: Blood Updated: 07/23/251743 WBC 12.54 10*3/mm3 RBC 4.42 10*6/mm3 Hemoglobin 12.6 g/dL Hematocrit 38.7 % MCV 87.6 fL MCH 28.5 pg MCHC 32.6 g/dL RDW 12.4 % RDW-SD 39.8 fl MPV 8.7 fL Platelets 392 10*3/mm3 Neutrophil % 57.1 % Lymphocyte % 25.8 % Monocyte % 9.9 % Eosinophil % 6.7 % Basophil % 0.3 % Immature Grans % 0.2 % Neutrophils, Absolute 7.15 10*3/mm3 Lymphocytes, Absolute 3.24 10*3/mm3 Monocytes, Absolute 1.24 10*3/mm3 Eosinophils, Absolute 0.84 10*3/mm3 Basophils, Absolute 0.04 10*3/mm3 Immature Grans, Absolute 0.03 10*3/mm3 nRBC 0.0 /100 WBC Assessment & Plan - Left great toe ulcer with worsening acute pain - Chronic peripheral vascular disease with critical limb ischemia - recent angioplasty in [place] 06/18/25 - multiple stents from iliac down to popliteal and including [employer]K [employer]ATOR - Diabetes mellitus type 2 with neuropathy - Hypertension - Chronic AFIB on eliquis - Hx pacemaker placement - Chronic asthma - Hyperlipidemia Plan: - wound care - eliquis on hold in light of possible procedures - continue plavix - heparin drip - long discussion with family/medical POA and patient regarding treatment options -- leave it as isand just paint it with betadine/wound care, high right lower extremity amputation, or RLE bypass which would be her only option at ambulating again but does pose risks from a cardiac/anesthesia standpoint given her age -- they are going to discuss it with patient and medical POA will let us know which option they would like to go with - will make her NPO after IZABEL crowder 07/25/25 just in case they elect for procedure - please call with any further vascular concerns Signed: Associated attestation - Junior Zhao MD - 07/25/2025 7:16 AM EDT I saw and examined this patient and reviewed her CT scan. Patient has extensive iliac femoral and superficial femoral artery stents all of which are occluded leaving her with a gangrenous toe. Even with her advanced age patient was mobile and ambulatory with her in her home would like to return to such as today. After discussion with her and her power of disability attorney it appears the patient has elected she wishes to proceed with a femoral to popliteal artery bypass. This would not be easy secondary to the previous stenting of her common femoral artery this likely will have to be excised in order to get adequate perfusion to the lower extremity. Will get her scheduled accordingly. documented in this encounter Nursing Notes * Arely Uribe RN - 07/25/2025 5:32 AM EDT Problem: Adult Inpatient Plan of Care Goal: Plan of Care Review Outcome: Progressing Goal: Patient-Specific Goal (Individualized) Outcome: Progressing Goal: Absence of Hospital-Acquired Illness or Injury Outcome: Progressing Intervention: Identify and Manage Fall Risk Recent Flowsheet Documentation Taken 07/25/2025 0400 by Arely Uribe RN Safety Promotion/Fall Prevention: activity supervised assistive device/personal items within reach clutter free environment maintained fall prevention program maintained lighting adjusted nonskid shoes/slippers when out of bed room organization consistent safety round/check completed Taken 07/25/2025 0200 by Arely Uribe RN Safety Promotion/Fall Prevention: activity supervised assistive device/personal items within reach clutter free environment maintained fall prevention program maintained lighting adjusted nonskid shoes/slippers when out of bed room organization consistent safety round/check completed Taken 07/25/2025 0000 by Arely Uribe RN Safety Promotion/Fall Prevention: activity supervised assistive device/personal items within reach clutter free environment maintained fall prevention program maintained lighting adjusted nonskid shoes/slippers when out of bed room organization consistent safety round/check completed Taken 07/24/2025 2200 by Arely Uribe RN Safety Promotion/Fall Prevention: activity supervised assistive device/personal items within reach clutter free environment maintained fall prevention program maintained lighting adjusted nonskid shoes/slippers when out of bed room organization consistent safety round/check completed Taken 07/24/2025 2000 by Arely Uribe RN Safety Promotion/Fall Prevention: activity supervised assistive device/personal items within reach clutter free environment maintained fall prevention program maintained lighting adjusted nonskid shoes/slippers when out of bed room organization consistent safety round/check completed Intervention: Prevent Skin Injury Recent Flowsheet Documentation Taken 07/25/2025 0400 by Arely Uribe RN Body Position: position changed independently Skin Protection: incontinence pads utilized silicone border foam - heel silicone border foam - sacrum/coccyx Taken 07/25/2025 0200 by rAely Uribe RN Body Position: position changed independently Skin Protection: incontinence pads utilized silicone border foam - heel silicone border foam - sacrum/coccyx Taken 07/25/2025 0000 by Arely Uribe RN Body Position: position changed independently Skin Protection: incontinence pads utilized silicone border foam - heel silicone border foam - sacrum/coccyx Taken 07/24/20252199 by Arely Uribe RN Body Position: position changed independently Skin Protection: incontinence pads utilized silicone border foam - heel silicone border foam - sacrum/coccyx Taken 07/24/20251999 by Arely Uribe RN Body Position: position changed independently Skin Protection: incontinence pads utilized silicone border foam - heel silicone border foam - sacrum/coccyx Intervention: Prevent and Manage VTE (Venous Thromboembolism) Risk Recent Flowsheet Documentation Taken 07/24/20251999 by Arely Uribe RN VTE Prevention/Management: (Heparin GTT) bilateral SCDs (sequential compression devices) off Intervention: Prevent Infection Recent Flowsheet Documentation Taken 07/25/2025 0400 by Arely Uribe RN Infection Prevention: environmental surveillance performed hand hygiene promoted equipment surfaces disinfected personal protective equipment utilized rest/sleep promoted Taken 07/25/2025 0200 by Arely Uribe RN Infection Prevention: environmental surveillance performed equipment surfaces disinfected hand hygiene promoted personal protective equipment utilized rest/sleep promoted Taken 07/25/2025 0000 by Arely Uribe RN Infection Prevention: environmental surveillance performed equipment surfaces disinfected hand hygiene promoted personal protective equipment utilized rest/sleep promoted Taken 07/24/20252199 by Arely Uribe RN Infection Prevention: environmental surveillance performed equipment surfaces disinfected hand hygiene promoted personal protective equipment utilized rest/sleep promoted Taken 07/24/20251999 by Arely Uribe RN Infection Prevention: environmental surveillance performed equipment surfaces disinfected hand hygiene promoted personal protective equipment utilized Goal: Optimal Comfort and Wellbeing Outcome: Progressing Intervention: Monitor Pain and Promote Comfort Recent Flowsheet Documentation Taken 07/24/2025 2302 by Arely Uribe RN Pain Management Interventions: pain medication given Intervention: Provide Person-Centered Care Recent Flowsheet Documentation Taken 07/24/20251999 by Arely Uribe RN Trust Relationship/Rapport: care explained questions encouraged reassurance provided thoughts/feelings acknowledged Goal: Readiness for Transition of Care Outcome: Progressing Goal: Plan of Care Review Outcome: Progressing Goal: Patient-Specific Goal (Individualized) Outcome: Progressing Goal: Absence of Hospital-Acquired Illness or Injury Outcome: Progressing Intervention: Identify and Manage Fall Risk Recent Flowsheet Documentation Taken 07/25/2025 0400 by Arely Uribe RN Safety Promotion/Fall Prevention: activity supervised assistive device/personal items within reach clutter free environment maintained fall prevention program maintained lighting adjusted nonskid shoes/slippers when out of bed room organization consistent safety round/check completed Taken 07/25/2025 0200 by Arely Uribe RN Safety Promotion/Fall Prevention: activity supervised assistive device/personal items within reach clutter free environment maintained fall prevention program maintained lighting adjusted nonskid shoes/slippers when out of bed room organization consistent safety round/check completed Taken 07/25/2025 0000 by Arely Uribe RN Safety Promotion/Fall Prevention: activity supervised assistive device/personal items within reach clutter free environment maintained fall prevention program maintained lighting adjusted nonskid shoes/slippers when out of bed room organization consistent safety round/check completed Taken 07/24/20252199 by Arely Uribe RN Safety Promotion/Fall Prevention: activity supervised assistive device/personal items within reach clutter free environment maintained fall prevention program maintained lighting adjusted nonskid shoes/slippers when out of bed room organization consistent safety round/check completed Taken 07/24/20251999 by Arely Uribe RN Safety Promotion/Fall Prevention: activity supervised assistive device/personal items within reach clutter free environment maintained fall prevention program maintained lighting adjusted nonskid shoes/slippers when out of bed room organization consistent safety round/check completed Intervention: Prevent Skin Injury Recent Flowsheet Documentation Taken 07/25/2025 0400 by Arely Uribe RN Body Position: position changed independently Skin Protection: incontinence pads utilized silicone border foam - heel silicone border foam - sacrum/coccyx Taken 07/25/2025 0200 by Arely Uribe RN Body Position: position changed independently Skin Protection: incontinence pads utilized silicone border foam - heel silicone border foam - sacrum/coccyx Taken 07/25/2025 0000 by Arely Uribe RN Body Position: position changed independently Skin Protection: incontinence pads utilized silicone border foam - heel silicone border foam - sacrum/coccyx Taken 07/24/2025 2200 by Arely Uribe RN Body Position: position changed independently Skin Protection: incontinence pads utilized silicone border foam - heel silicone border foam - sacrum/coccyx Taken 07/24/20251999 by Arely Uribe RN Body Position: position changed independently Skin Protection: incontinence pads utilized silicone border foam - heel silicone border foam - sacrum/coccyx Intervention: Prevent and Manage VTE (Venous Thromboembolism) Risk Recent Flowsheet Documentation Taken 07/24/20251999 by Arely Uribe RN VTE Prevention/Management: (Heparin GTT) bilateral SCDs (sequential compression devices) off Intervention: Prevent Infection Recent Flowsheet Documentation Taken 07/25/2025 0400 by Arely Uribe RN Infection Prevention: environmental surveillance performed hand hygiene promoted equipment surfaces disinfected personal protective equipment utilized rest/sleep promoted Taken 07/25/2025 0200 by Arely Uribe RN Infection Prevention: environmental surveillance performed equipment surfaces disinfected hand hygiene promoted personal protective equipment utilized rest/sleep promoted Taken 07/25/2025 by Arely Uribe RN Infection Prevention: environmental surveillance performed equipment surfaces disinfected hand hygiene promoted personal protective equipment utilized rest/sleep promoted Taken 07/24/2025 220 by Arely Uribe RN Infection Prevention: environmental surveillance performed equipment surfaces disinfected hand hygiene promoted personal protective equipment utilized rest/sleep promoted Taken 07/24/20251999 by Arely Uribe RN Infection Prevention: environmental surveillance performed equipment surfaces disinfected hand hygiene promoted personal protective equipment utilized Goal: Optimal Comfort and Wellbeing Outcome: Progressing Intervention: Monitor Pain and Promote Comfort Recent Flowsheet Documentation Taken 07/24/2025 2302 by Arely Uribe RN Pain Management Interventions: pain medication given Intervention: Provide Person-Centered Care Recent Flowsheet Documentation Taken 07/24/20251999 by Arely Uribe RN Trust Relationship/Rapport: care explained questions encouraged reassurance provided thoughts/feelings acknowledged Goal: Readiness for Transition of Care Outcome: Progressing Problem: Skin Injury Risk Increased Goal: Skin Health and Integrity Outcome: Progressing Intervention: Optimize Skin Protection Recent Flowsheet Documentation Taken 07/25/2025 0400 by Arely Uribe RN Activity Management: activity encouraged Pressure Reduction Techniques: frequent weight shift encouraged pressure points protected weight shift assistance provided Head of Bed (HOB) Positioning: HOB elevated Pressure Reduction Devices: heel offloading device utilized positioning supports utilized pressure-redistributing mattress utilized Skin Protection: incontinence pads utilized silicone border foam - heel silicone border foam - sacrum/coccyx Taken 07/25/2025 0200 by Arely Uribe RN Activity Management: activity encouraged Pressure Reduction Techniques: frequent weight shift encouraged pressure points protected weight shift assistance provided Head of Bed ([facility]) Positioning: HOB elevated Pressure Reduction Devices: heel offloading device utilized positioning supports utilized pressure-redistributing mattress utilized Skin Protection: incontinence pads utilized silicone border foam - heel silicone border foam - sacrum/coccyx Taken 07/25/2025 0000 by Arely Uribe RN Activity Management: activity encouraged Pressure Reduction Techniques: frequent weight shift encouraged pressure points protected heels elevated off bed weight shift assistance provided Head of Bed ([facility]) Positioning: [facility] elevated Pressure Reduction Devices: heel offloading device utilized positioning supports utilized pressure-redistributing mattress utilized Skin Protection: incontinence pads utilized silicone border foam - heel silicone border foam - sacrum/coccyx Taken 07/24/2025 2200 by Arely Uribe RN Activity Management: activity encouraged Pressure Reduction Techniques: frequent weight shift encouraged pressure points protected weight shift assistance provided Head of Bed (HOB) Positioning: [facility] elevated Pressure Reduction Devices: positioning supports utilized pressure-redistributing mattress utilized specialty bed utilized Skin Protection: incontinence pads utilized silicone border foam - heel silicone border foam - sacrum/coccyx Taken 07/24/20251999 by Arely Uribe RN Activity Management: activity encouraged Pressure Reduction Techniques: frequent weight shift encouraged pressure points protected weight shift assistance provided heels elevated off bed Head of Bed ([facility]) Positioning: [facility] elevated Pressure Reduction Devices: positioning supports utilized pressure-redistributing mattress utilized specialty bed utilized Skin Protection: incontinence pads utilized silicone border foam - heel silicone border foam - sacrum/coccyx Problem: Pain Acute Goal: Optimal Pain Control and Function Outcome: Progressing Intervention: Optimize Psychosocial Wellbeing Recent Flowsheet Documentation Taken 07/24/20251999 by Arely Uribe RN Diversional Activities: television Intervention: Develop Pain Management Plan Recent Flowsheet Documentation Taken 07/24/2025 2302 by Arely Uribe RN Pain Management Interventions: pain medication given Intervention: Prevent or Manage Pain Recent Flowsheet Documentation Taken 07/24/20251999 by Arely Uribe RN Medication Review/Management: medications reviewed Problem: VTE (Venous Thromboembolism) Goal: Tissue Perfusion Outcome: Progressing Intervention: Optimize Tissue Perfusion Recent Flowsheet Documentation Taken 07/24/20251999 by Arely Uribe RN VTE Prevention/Management: (Heparin GTT) bilateral SCDs (sequential compression devices) off Goal: Optimal Right Ventricular Function Outcome: Progressing Problem: Fall Injury Risk Goal: Absence of Fall and Fall-Related Injury Outcome: Progressing Intervention: Identify and Manage Contributors Recent Flowsheet Documentation Taken 07/25/2025 0400 by Arely Uribe RN Self-Care Promotion: independence encouraged BADL personal objects within reach Taken 07/25/2025 0200 by Arely Uribe RN Self-Care Promotion: independence encouraged Taken 07/25/2025 0000 by Arely Uribe RN Self-Care Promotion: independence encouraged Taken 07/24/2025 2200 by Arely Uribe RN Self-Care Promotion: independence encouraged BADL personal objects within reach Taken 07/24/20251999 by Arely Uribe RN Medication Review/Management: medications reviewed Intervention: Promote Injury-Free Environment Recent Flowsheet Documentation Taken 07/25/2025 0400 by Arely Uribe RN Safety Promotion/Fall Prevention: activity supervised assistive device/personal items within reach clutter free environment maintained fall prevention program maintained lighting adjusted nonskid shoes/slippers when out of bed room organization consistent safety round/check completed Taken 07/25/2025 0200 by Arely Uribe RN Safety Promotion/Fall Prevention: activity supervised assistive device/personal items within reach clutter free environment maintained fall prevention program maintained lighting adjusted nonskid shoes/slippers when out of bed room organization consistent safety round/check completed Taken 07/25/2025 0000 by Arely Uribe RN Safety Promotion/Fall Prevention: activity supervised assistive device/personal items within reach clutter free environment maintained fall prevention program maintained lighting adjusted nonskid shoes/slippers when out of bed room organization consistent safety round/check completed Taken 07/24/20252199 by Arely Uribe RN Safety Promotion/Fall Prevention: activity supervised assistive device/personal items within reach clutter free environment maintained fall prevention program maintained lighting adjusted nonskid shoes/slippers when out of bed room organization consistent safety round/check completed Taken 07/24/20251999 by Arely Uribe RN Safety Promotion/Fall Prevention: activity supervised assistive device/personal items within reach clutter free environment maintained fall prevention program maintained lighting adjusted nonskid shoes/slippers when out of bed room organization consistent safety round/check completed Goal Outcome Evaluation: * David Dalton RN - 07/24/2025 2:00 PM EDT Images from the original note were not included. Wound, Ostomy and Continence (WOC) Note Reason for WOC Consultation: Left foot-limb assessment Patient awake and alert. Family/support person at bedside. Skin/Wound Assessment: Wound Type: Soft Tissue Necrosis Location: Left great toe Measurements: 2.5 x 1.5 x 0.2 cm wound along dorsum of left great toe Wound Bed: dry, non-granulating, and necroitc, blisters noted to plantar surface of left great toe Wound Edges: Open Periwound Skin: intact Drainage Characteristics/Odor: none Drainage Amount: none Pain: No Care provided: The wound was cleansed with pH balanced wipes. Wound on dorsum of left great toe anddistal great toe painted with Betadine. Image: Summary and Recommendation(s): Vascular consult pending 2. Left great toe is dusky and edematous. Daughter reports that wound on the dorsum of the left great toe has gotten bigger. 3. At this time, paint distal left great toe and wound on top of left great toe with Betadine. Patient is at risk for pressure injury development to her heels due to her history of peripheral arterial disease. Please keep lower extremities elevated off bed with spry pillow. 4. Refer to wound care instructions in the Orders tab 5. Specialty support surface in place: Isotour Pressure Injury Prevention Protocol (initiate for a Taz Scale Score of <18): Most recent Taz Scale score: Sensory Perception: 3-->slightly limited Moisture: 4-->rarely moist Activity: 3-->walks occasionally Mobility: 3-->slightly limited Nutrition: 2-->probably inadequate Friction and Shear: 2-->potential problem Taz Score: 17 (07/24/25 0800) -Apply Allevyn foam dressing to sacrum/coccyx and heels. -Turn q 2 hr. using an offloading spry pillow -Apply moisture barrier cream to bottom BID & PRN, if incontinent. Thank you for consulting the WOC Nurse. WOC Team will continue to follow. Please re consult if the wound(s) worsens or new issues arise. David Dalton RN, BSN, CCRN, CWOCN Wound, Ostomy and Continence (WOC) Department [facility] * Kate Gil RN - 07/24/2025 10:49 AM EDT Problem: Adult Inpatient Plan of Care Goal: Plan of Care Review Outcome: Progressing Goal: Patient-Specific Goal (Individualized) Outcome: Progressing Goal: Optimal Comfort and Wellbeing Outcome: Progressing Intervention: Provide Person-Centered Care Recent Flowsheet Documentation Taken 07/24/2025 08 by Kate Gil RN Trust Relationship/Rapport: care explained Goal Outcome Evaluation: documented in this encounter ED Notes * Vipul Barney MD - 07/23/2025 5:35 PM EDT Subjective History of Present Illness 85-year-old female who presents for evaluation of swollen red appearance with associated pain of the left foot. The patient reports that she has a known ischemia to her left lower extremity. She had an ischemic wound identified over the top of the left great toe prior to having an angioplasty of the left lower extremity performed on June 18. This was performed by Dr. Chadwick in [place]. She reports that the redness pain and swelling of the left great toe left foot and even the left anklehas continued to increase within the last couple weeks. She has been seen by podiatry roughly 8 days ago and has been on antibiotics now for greater than 1 week without improvement. The most recent ev aluation by podiatry today led to a referral here at the ER due to worsening redness. The patient denies systemic symptoms of infection, no fever or chills. No chest pain. No upper respiratory congestion, sore throat, rhinorrhea. No change in bowel or urinary function. No other acute complaints Review of Systems Constitutional: Positive for chills. Negative for fatigue and fever. HENT: Negative for congestion, ear pain, postnasal drip, sinus pressure and sore throat. Eyes: Negative for pain, redness and visual disturbance. Respiratory: Negative for cough, chest tightness and shortness of breath. Cardiovascular: Negative for chest pain, palpitations and leg swelling. Gastrointestinal: Negative for abdominal pain, anal bleeding, blood in stool, diarrhea, nausea and vomiting. Endocrine: Negative for polydipsia and polyuria. Genitourinary: Negative for difficulty urinating, dysuria, frequency and urgency. Musculoskeletal: Negative for arthralgias, back pain and neck pain. Skin: Positive for color change and wound. Negative for pallor and rash. Allergic/Immunologic: Negative for environmental allergies and immunocompromised state. Neurological: Negative for dizziness, weakness and headaches. Hematological: Negative for adenopathy. Psychiatric/Behavioral: Negative for confusion, self-injury and suicidal ideas. The patient is not nervous/anxious. All other systems reviewed and are negative. History reviewed. No pertinent past medical history. Allergies Allergen Reactions Doxycycline Unknown - High Severity Morphine Mental Status Change Penicillins Unknown - High Severity Sulfur Unknown - High Severity History reviewed. No pertinent surgical history. History reviewed. No pertinent family history. Social History Socioeconomic History Marital status: Tobacco Use Smoking status: Never Smokeless tobacco: Never Vaping Use Vaping status: Never Used Substance and Sexual Activity Alcohol use: Never Drug use: Never Sexual activity: Defer Objective Physical Exam Vitals and nursing note reviewed. Constitutional: General: She is not in acute distress. Appearance: Normal appearance. She is well-developed. She is not toxic-appearing or diaphoretic. HENT: Head: Normocephalic and atraumatic. Right Ear: External ear normal. Left Ear: External ear normal. Nose: Nose normal. Eyes: General: Lids are normal. Pupils: Pupils are equal, round, and reactive to light. Neck: Trachea: No tracheal deviation. Cardiovascular: Rate and Rhythm: Normal rate and regular rhythm. Pulses: No decreased pulses. Heart sounds: Normal heart sounds. No murmur heard. No friction rub. No gallop. Pulmonary: Effort: Pulmonary effort is normal. No respiratory distress. Breath sounds: Normal breath sounds. No decreased breath sounds, wheezing, rhonchi or rales. Abdominal: General: Bowel sounds are normal. Palpations: Abdomen is soft. Tenderness: There is no abdominal tenderness. There is no guarding or rebound. Musculoskeletal: General: No deformity. Normal range of motion. Cervical back: Normal range of motion and neck supple. Lymphadenopathy: Cervical: No cervical adenopathy. Skin: General: Skin is warm and dry. Findings: Erythema present. No rash. Comments: The patient has ischemic appearing ulcer that is roughly 2 cm x 1-1/2 cm over the dorsal aspect of the left great toe. No drainage from the left great toe ulcer. There is surrounding erythema and the erythema tracks into the left foot and even to a mild degree at the left ankle. There is associated tenderness to palpation in this area Neurological: Mental Status: She is alert and oriented to person, place, and time. Cranial Nerves: No cranial nerve deficit. Sensory: No sensory deficit. Psychiatric: Speech: Speech normal. Behavior: Behavior normal. Thought Content: Thought content normal. Judgment: Judgment normal. Procedures ED Course ED Course as of 07/24/25 1529 Tue Jul 23, 20251951 The patient has a known ischemic ulcer to the left great toe. She has developed redness to theleft great toe extending into the left foot and left ankle over the last week and a half. She has taken antibiotics during this time but the appearance has worsened and not improved. She denies systemic symptoms of infection. She had angioplasty of left lower extremity by Dr. Chadwick roughly 1 month ago due to left lower extremity ischemic disease. The ulcer itself does not have purulent drainage. I would like to admit for IV antibiotics. [NS] ED Course User Index [NS] Vipul Barney MD Medical Decision Making Differential includes peripheral artery disease, cellulitis, osteomyelitis, other unspecified etiology. The patient has absence of pulses and nonpalpable pulses to the posterior tibial and dorsalis pedisof the left lower extremity. There is also erythema that extends from an ulcerated wound over the dorsal aspect of the left great toe. The patient's white count is normal, she is afebrile. She has been recently taking antibiotics without improvement of the redness. CT imaging of the foot is negative for osteomyelitis but does report left tissue edema concerning for cellulitis. Chest x-ray interpreted by me shows normal heart size and clear lungs. The patient had a recent angioplasty performed by Dr. Chadwick. I discussed the patient with the vascular surgeon, Dr. Montanez. He recommends transitioning current Eliquis to heparin inpatient and he will consult on the patient inpatient. I have also initiated IV antibiotics and pain medication. The patient does not have resting pain but does have pain with palpation over the area of redness. The temperature to bilateral feet is equal. I discussed the patient with the hospitalist who will consult for admission. Problems Addressed: Cellulitis of left foot: complicated acute illness or injury with systemic symptoms Ischemic ulcer, unspecified ulcer stage: complicated acute illness or injury with systemic symptoms Peripheral artery disease: chronic illness or injury with exacerbation, progression, or side effects of treatment Amount and/or Complexity of Data Reviewed External Data Reviewed: labs, radiology and ECG. Labs: ordered. Decision-making details documented in ED Course. Radiology: ordered and independent interpretation performed. Decision-making details documented in ED Course. ECG/medicine tests: ordered and independent interpretation performed. Decision- making details documented in ED Course. Details: EKG performed 07/23/2025 at 1808 interpreted by me shows sinus rhythm, left bundle branch block, PAC, heart rate 74, prolonged QRS, normal QTc, no acute ischemic changes. Risk OTC drugs. Prescription drug management. Decision regarding hospitalization. Final diagnoses: Cellulitis of left foot Ischemic ulcer, unspecified ulcer stage Peripheral artery disease ED Disposition ED Disposition ED Disposition Decision to Admit Condition -- Comment Level of Care: Telemetry [5] Diagnosis: PAD (peripheral artery disease) [[id number]] Admitting Physician: AMADA IBRAHIM [[id number]] Certification: I Certify That Inpatient Hospital Services Are Medically Necessary For Greater Than 2 Midnights No follow-up provider specified. Medication List No changes were made to your prescriptions during this visit. Vipul Barney MD 07/24/25 7389 documented in this encounter Miscellaneous Notes * Case Management/Social Work - Carol Reina RN - 07/24/2025 10:59 AM EDT Discharge Planning Assessment [facility] Patient Name: Hattie Zamora Today's Date: 07/24/2025 Admit Date: 07/23/2025 Plan: Home Discharge Needs Assessment Row Name 07/24/25 1056 Living Environment People in Home child(dustin), adult Current Living Arrangements home Potentially Unsafe Housing Conditions none Primary Care Provided by self Provides Primary Care For no one Family Caregiver if Needed child(dustin), adult Quality of Family Relationships involved;supportive Able to Return to Prior Arrangements yes Resource/Environmental Concerns Resource/Environmental Concerns none Transportation Concerns none Transition Planning Patient/Family Anticipated Services at Transition counter caser;rehabilitation services Transportation Anticipated family or friend will provide Discharge Needs Assessment Readmission Within the Last 30 Days no previous admission in last 30 days Equipment Currently Used at Home walker, rolling;shower chair Concerns to be Addressed discharge planning Anticipated Changes Related to Illness none Discharge Plan Row Name 07/24/25 1056 Plan Plan Home Patient/Family in Agreement with Plan yes Plan Comments Spoke with patient in room to initiate discharge planning. She lives with her son in [facility]. Prior to admission, she ambulated with a rolling walker and required some assistance with ADL's. She also has a shower chair at home and is not current with home health. Her PCP is Alexis Montanez. She does not have an advanced directive. Verified that she has [employer] Medicare Repalcement. Ms. Zamora has RX coverage and has her scripts filled at [facility]. Her goal is to return home at discharge. Will await therapy recommendations to determine proper discharge placement. CM will continue to follow. Final Discharge Disposition Code 01 - home or self-care Continued Care and Services - Admitted Since 07/23/2025 No active coordination exists. Expected Discharge Date and Time Expected Discharge Date Expected Discharge Time Jul 25, 2025 Demographic Summary Row Name 07/24/25 3888 General Information Admission Type inpatient Arrived From emergency department Referral Source admission list Reason for Consult discharge planning Preferred Language Trinidadian Functional Status Row Name 07/24/25 1055 Functional Status Usual Activity Tolerance fair Current Activity Tolerance fair Functional Status, IADL Medications assistive equipment Meal Preparation assistive equipment and person Housekeeping completely dependent Laundry completely dependent Shopping completely dependent Psychosocial No documentation. Abuse/Neglect No documentation. Legal No documentation. Substance Abuse No documentation. Patient Forms No documentation. Carol Reina, RN documented in this encounter Plan of Treatment Not on file documented as of this encounter Procedures Procedure Name Priority Date/Time Associated Diagnosis Comments POCT GLUCOSE FINGERSTICK Routine 07/25/2025 5:46 PM EDT CBC WITH AUTO DIFFERENTIAL Routine 07/25/2025 5:17 PM EDT APTT Timed 07/25/2025 5:17 PM EDT CBC AND DIFFERENTIAL Routine 07/25/2025 5:17 PM EDT MAGNESIUM Routine 07/25/2025 5:17 PM EDT RENAL FUNCTION PANEL Routine 07/25/2025 5:17 PM EDT POCT GLUCOSE FINGERSTICK Routine 07/25/2025 11:40 AM EDT SCANNED - TELEMETRY 07/25/2025 1 0:34 AM EDT SCANNED - TELEMETRY 07/25/2025 8 :02 AM EDT POCT GLUCOSE FINGERSTICK Routine 07/25/2025 6:06 AM EDT POCT GLUCOSE FINGERSTICK Routine 07/25/2025 12:09 AM EDT APTT Timed 07/24/2025 10:36 PM EDT URINALYSIS, MICROSCOPIC ONLY STAT 07/24/2025 10:03 PM EDT URINALYSIS W/ MICROSCOPIC IF INDICATED (NO CULTURE) STAT 07/24/2025 10:03 PM EDT MRSA DNA PROBE Routine 07/24/2025 8:55 PM EDT POCT GLUCOSE FINGERSTICK Routine 07/24/2025 5:45 PM EDT APTT Timed 07/24/2025 3:27 PM EDT POCT GLUCOSE FINGERSTICK Routine 07/24/2025 11:30 AM EDT DUPLEX LOWER EXTREMITY ART/GRAFTS LEFT CAR - COR/REGI/MAD Routine 07/24/2025 9:21 AM EDT POCT GLUCOSE FINGERSTICK Routine 07/24/2025 7:53 AM EDT CBC WITH AUTO DIFFERENTIAL Routine 07/24/2025 4:45 AM EDT TROPONIN Routine 07/24/2025 4:45 AM EDT APTT Timed 07/24/2025 4:45 AM EDT PHOSPHORUS Routine 07/24/2025 4:45 AM EDT MAGNESIUM Routine 07/24/2025 4:45 AM EDT LACTIC ACID, PLASMA Routine 07/24/2025 4 :45 AM EDT HEMOGLOBIN A1C Routine 07/24/2025 4:45 AM EDT CK Routine 07/24/2025 4:45 AM EDT DIGOXIN LEVEL Routine 07/24/2025 4:45 AM EDT LIPID PANEL Routine 07/24/2025 4:45 AM EDT COMPREHENSIVE METABOLIC PANEL Routine 07/24/2025 4:[address] ANGIOGRAM LOWER EXTREMITY BILATERAL STAT 07/23/2025 11:30 PM EDT WOUND OSTOMY EVAL AND TREAT Routine 07/23/2025 10:25 PM EDT HEPARIN ANTI XA STAT 07/23/2025 10:00 PM EDT APTT STAT 07/23/2025 10:00 PM EDT PROTIME-INR STAT 07/23/2025 10:00 PM EDT HIGH SENSITIVITIY TROPONIN T 1HR STAT 07/23/2025 7:[address] LOWER EXTREMITY LEFT WO CONTRAST STAT 07/23/2025 7:42 PM EDT ECG 12-LEAD STAT 07/23/2025 6:08 PM EDT XR CHEST 1 VW STAT 07/23/2025 6:04 PM EDT XR FOOT 3+ VW LEFT STAT 07/23/2025 5: 48 PM EDT BLOOD CULTURE STAT 07/23/2025 5:45 PM EDT BLOOD CULTURE STAT 07/23/2025 5:35 PM EDT CBC WITH AUTO DIFFERENTIAL STAT 07/23/2025 5:32 PM EDT TROPONIN STAT 07/23/2025 5:32 PM EDT CBC AND DIFFERENTIAL STAT 07/23/2025 5:32 PM EDT LACTIC ACID, PLASMA STAT 07/23/2025 5 :32 PM EDT COMPREHENSIVE METABOLIC PANEL STAT 07/23/2025 5:32 PM EDT documented in this encounter Results * POC Glucose Once (07/25/2025 5:46 PM EDT) Pathologist [facility] Glucose 76 70 - 130 mg/dL 07/25/2025 5:51 PM EDT [facility] Comment:Serial Number: [id number]: [id number] Blood 07/25/2025 5:46 PM EDT 07/25/2025 5:51 PM EDT Norma Whitney DO POINT OF CARE TEST ORD ERABLES Final Result Performing Organization Address [facility] Co de Phone Number [facility]
[address] [place] [address], * (ABNORMAL) aPTT (07/25/2025 5:17 PM EDT) Pathologist [facility] PTT 46.0(L) 60.0 - 90.0 seconds 07/25/2025 5:47 PM EDT [facility] Blood Venipuncture / Unknown 07/25/2025 5:17 PM EDT 07/25/2025 5:32 PM EDT Narrative [facility] - 07/25/2025 5:47 PM EDT PTT = The equivalent PTT values for the therapeutic range of heparin levels at 0.3 to 0.5 U/ml are 60 to 70 seconds. Ulises Bonilla [facility] BLOOD ORDERABLES Final Res ult Performing Organization Address City/[facility]/ZIP Co de Phone Number [facility]
[address] [place] [address], * (ABNORMAL) CBC Auto Differential (07/25/2025 5:17 PM EDT) Pathologist [facility] WBC 7.91 3.40 - 10.80 10*3/mm3 07/25/2025 5:35 PM EDT [facility] RBC 3.89 3.77 - 5.28 10*6/mm3 07/25/2025 5:35 PM EDT [facility] Hemoglobin 11.1(L) 12.0 - 15.9 g/dL 07/25/2025 5:35 PM EDT [facility] LABORATORY Hematocrit 34.9 34.0 - 46.6 % 07/25/2025 5:35 PM EDT [facility] MCV 89.7 79.0 - 97.0 fL 07/25/2025 5:35 PM EDT [facility] MCH 28.5 26.6 - 33.0 pg 07/25/2025 5:35 PM EDT [facility] MCHC 31.8 31.5 - 35.7 g/dL 07/25/2025 5:35 PM EDT [facility] RDW 12.3 12.3 - 15.4 % 07/25/2025 5:35 PM EDT [facility] RDW-SD 40.0 37.0 - 54.0 fl 07/25/2025 5:35 PM EDT [facility] MPV 8.8 6.0 - 12.0 fL 07/25/2025 5:35 PM EDT [facility] Platelets 285 140 - 450 10*3/mm3 07/25/2025 5:35 PM EDT [facility] Neutrophil % 55.2 42.7 - 76.0 % 07/25/2025 5:35 PM EDT [facility] Lymphocyte % 27.6 19.6 - 45.3 % 07/25/2025 5:35 PM EDT [facility] Monocyte % 9.0 5.0 - 12.0 % 07/25/2025 5:35 PM EDT [facility] Eosinophil % 7.3(H) 0.3 - 6.2 % 07/25/2025 5:35 PM EDT [facility] Basophil % 0.6 0.0 - 1.5 % 07/25/2025 5:35 PM EDT [facility] Immature Grans % 0.3 0.0 - 0.5 % 07/25/2025 5:35 PM EDT [facility] Neutrophils, Absolute 4.37 1.70 - 7.00 10*3/mm3 07/25/2025 5:35 PM EDT [facility] Lymphocytes, Absolute 2.18 0.70 - 3.10 10*3/mm3 07/25/2025 5:35 PM EDT [facility] Monocytes, Absolute 0.71 0.10 - 0.90 10*3/mm3 07/25/2025 5:35 PM EDT [facility] Eosinophils, Absolute 0.58(H) 0.00 - 0.40 10*3/mm3 07/25/2025 5:35 PM EDT [facility] Basophils, Absolute 0.05 0.00 - 0.20 10*3/mm3 07/25/2025 5:35 PM EDT [facility] Immature Grans, Absolute 0.02 0.00 - 0.05 10*3/mm3 07/25/2025 5:35 PM EDT [facility] nRBC 0.0 0.0 - 0.2 /100 WBC 07/25/2025 5:35 PM EDT [facility] Blood Venipuncture / Unknown 07/25/2025 5:17 PM EDT 07/25/2025 5:32 PM EDT us Norma Whitney DO LAB BLOOD ORDERABLES F inal Result [facility]
[address] [place] [address], * (ABNORMAL) Renal Function Panel (07/25/2025 5:17 PM EDT) Glucose 83 65 - 99 mg/dL 07/25/2025 5:59 PM EDT [facility] BUN 5.9(L) 8.0 - 23.0 mg/dL 07/25/2025 5:59 PM EDT [facility] Creatinine 0.53(L) 0.57 - 1.00 mg/dL 07/25/2025 5:59 PM EDT [facility] Sodium 133(L) 136 - 145 mmol/L 07/25/2025 5:59 PM EDT [facility] Potassium 4.5 3.5 - 5.2 mmol/L 07/25/2025 5:59 PM EDT [facility] Chloride 99 98 - 107 mmol/L 07/25/2025 5:59 PM EDT [facility] CO2 29.7(H) 22.0 - 29.0 mmol/L 07/25/2025 5:59 PM EDT [facility] Calcium 8.5(L) 8.6 - 10.5 mg/dL 07/25/2025 5:59 PM EDT [facility] Albumin 3.2(L) 3.5 - 5.2 g/dL 07/25/2025 5:59 PM EDT [facility] Phosphorus 3.2 2.5 - 4.5 mg/dL 07/25/2025 5:59 PM EDT [facility] Anion Gap 4.3(L) 5.0 - 15.0 mmol/L 07/25/2025 5:59 PM EDT [facility] BUN/Creatinine Ratio 11.1 7.0 - 25.0 07/25/2025 5:59 PM T [facility] eGFR 91.3 >60.0 mL/min/1.7 3 07/25/2025 5:59 PM T [facility] Blood Venipuncture / Unknown 07/25/2025 5:17 PM EDT 07/25/2025 5:32 PM EDT [facility] - 07/25/2025 5:59 PM EDT GFR Categories in Chronic Kidney Disease (CKD) GFR Category GFR (mL/min/1.73) Interpretation G1 90 or greater Normal or high (1) G2 60-89 Mild decrease (1) G3a 45-59 Mild to moderate decrease G3b 30-44 Moderate to severe decrease G4 15-29 Severe decrease G5 14 or less Kidney failure (1)In the absence of evidence of kidney disease, neither GFR category G1 or G2 fulfill the criteria for CKD. eGFR calculation 2020 CKD-EPI creatinine equation, which does not include race as a factor Norma Whitney DO LAB BLOOD ORDERABLES F inal Result Performing Organization Address [facility] Co de Phone Number [facility]
[address] [place] [address], * Magnesium (07/25/2025 5:17 PM EDT) Magnesium 1.9 1.6 - 2.4 mg/dL 07/25/2025 5:59 PM EDT [facility] Blood Venipuncture / Unknown 07/25/2025 5:17 PM EDT 07/25/2025 5:32 PM EDT Amada Ibrahim MD LAB BLOOD ORDERABLES Final Re sult Performing Organization Address [facility] de Phone Number [facility]
[address] [place] [address], * POC Glucose Once (07/25/2025 11:40 AM EDT) Glucose 87 70 - 130 mg/dL 07/25/2025 11:44 AM EDT [facility] Comment:Serial Number: [id number]: [id number] Blood 07/25/2025 11:4 0 AM EDT 07/25/2025 11:44 AM EDT Norma Whitney DO POINT OF CARE TEST ORD ERABLES Final Result Performing Organization Address [facility] Co de Phone Number [facility]
[address] [place] [address], * Telemetry Scan (07/25/2025 10:34 AM EDT) [facility] Onbase ECG ORDERABLES Final Result * Telemetry Scan (07/25/2025 8:02 AM EDT) [facility] ECG ORDERABLES Final Result * POC Glucose Q6H (07/25/2025 6:06 AM EDT) Glucose 100 70 - 130 mg/dL 07/25/2025 6:10 AM EDT [facility] Comment:Serial Number: [id number]: [id number] Blood 07/25/2025 6:06 AM EDT 07/25/2025 6:10 AM EDT Amada Ibrahim MD POINT OF CARE TEST ORDERABLES Final Result Performing Organization Address [facility] Co de Phone Number [facility]
[address] [place] [address], * (ABNORMAL) POC Glucose Q6H (07/25/2025 12:09 AM EDT) Glucose 154(H) 70 - 130 mg/dL 07/25/2025 12:11 AM EDT [facility] Comment:Serial Number: [id number]: [id number] Blood 07/25/2025 12:0 9 AM EDT 07/25/2025 12:11 AM EDT Amada Ibrahim MD POINT OF CARE TEST ORDERABLES Final Result Performing Organization Address City/[facility]/ZIP Co de Phone Number [facility]
[address] [place] [address], * aPTT (07/24/2025 10:36 PM EDT) PTT 60.8 60.0 - 90.0 seconds 07/24/2025 11:18 PM EDT [facility] Blood Venipuncture / Unknown 07/24/2025 10:36 PM EDT 07/24/2025 10:54 PM EDT Narrative [facility] - 07/24/2025 11:18 PM EDT PTT = The equivalent PTT values for the therapeutic range of heparin levels at 0.3 to 0.5 U/ml are 60 to 70 seconds. Ulises Sabrina Bonilla [facility] LAB BLOOD ORDERABLES Final Res ult Performing Organization Address City/[facility]/ZIP Co de Phone Number [facility]
[address] [place] [address], * (ABNORMAL) Urinalysis, Microscopic Only - Urine, Clean Catch (07/24/2025 10:03 PM EDT) RBC, UA None Seen None Seen, 0-2 /HPF 07/24/2025 10:21 PM EDT [facility] WBC, UA 6-10(A) None Seen, 0-2 /HPF 07/24/2025 10:21 PM EDT [facility] Bacteria, UA None Seen None Seen /HPF 07/24/2025 10:21 PM EDT [facility] Squamous Epithelial Cells, UA 0-2 None Seen, 0-2 /HPF 07/24/2025 10:21 PM EDT [facility] Hyaline Casts, UA None Seen None Seen /LPF 07/24/2025 10:21 PM EDT [facility] Methodology Automated Microscopy 07/24/2025 10:21 PM EDT [facility] Urine Urine specimen obtained by clean catch procedure / Unknown Collection / Unknown 07/24/2025 10:03 PM EDT 07/24/2025 10:15 PM EDT Amada Ibrahim MD URINE ORDERABLES Final Result Performing Organization Address [facility]/ZIP Co de Phone Number [facility]
[address] [place] [address], * (ABNORMAL) Urinalysis With Microscopic If Indicated (No Culture) - Urine, Clean Catch (07/24/2025 10:03 PM EDT) Color, UA Yellow Yellow, Straw 07/24/2025 10:21 PM EDT [facility] Appearance, UA Cloudy(A) Clear 07/24/2025 10:21 PM EDT [facility] pH, UA <=5.0 5.0 - 8.0 07/24/2025 10:21 PM EDT [facility] Specific [place], UA 1.022 1.005 - 1.030 07/24/2025 10:21 PM EDT [facility] Glucose, UA Negative Negative 07/24/2025 10:21 PM EDT [facility] Ketones, UA Negative Negative 07/24/2025 10:21 PM EDT [facility] Bilirubin, UA Negative Negative 07/24/2025 10:21 PM EDT [facility] Blood, UA Negative Negative 07/24/2025 10:21 PM EDT [facility] Protein, UA Negative Negative 07/24/2025 10:21 PM EDT [facility] Leuk Esterase, UA Small (1+)(A) Negative 07/24/2025 10:21 PM EDT [facility] Nitrite, UA Negative Negative 07/24/2025 10:21 PM EDT [facility] Urobilinogen, UA 1.0 E.U./dL 0.2 - 1.0 E.U./dL 07/24/2025 10:21 PM EDT [facility] Urine Urine specimen obtained by clean catch procedure / Unknown Collection / Unknown 07/24/2025 10:03 PM EDT 07/24/2025 10:15 PM EDT us Amada Ibrahim MD URINE ORDERABLES Final Result [facility]
[address] [place] [address], * (ABNORMAL) MRSA Screen, PCR (Inpatient) - Swab, Nares (07/24/2025 8:55 PM EDT) [facility] MRSA PCR Positive(A ) Negative CEPHEID GENEXPERT 07/25/2025 8:09 AM EDT [facility] Swab Structure of anterior naris / Unknown Collection / Unknown 07/24/2025 8:55 PM EDT 07/24/2025 9:16 PM EDT Narrative [facility] - 07/25/2025 8:09 AM EDT The negative predictive value of this diagnostic test is high and should only be used to consider de-escalating anti-MRSA therapy. A positive result may indicate colonization with MRSA and must be correlated clinically. Randy Mathis PharmD MICROBIOLOGY - GENERAL ORDERABLES Final Result Performing Organization Address City/[facility]/ZIP Co de Phone Number [facility]
[address] [place] [address], * POC Glucose Once (07/24/2025 5:45 PM EDT) [facility] Glucose 119 70 - 130 mg/dL 07/24/2025 5:49 PM EDT [facility] Comment:Serial Number: [id number]: [id number] Blood 07/24/2025 5:45 PM EDT 07/24/2025 5:49 PM EDT Norma Whitney DO POINT OF CARE TEST ORD ERABLES Final Result [facility]
[address] [place] [address], * (ABNORMAL) aPTT (07/24/2025 3:27 PM EDT) [facility] PTT 97.0(H) 60.0 - 90.0 seconds 07/24/2025 4:09 PM EDT [facility] Blood Venipuncture / Unknown 07/24/2025 3:27 PM EDT 07/24/2025 3:33 PM EDT Narrative [facility] - 07/24/2025 4:09 PM EDT PTT = The equivalent PTT values for the therapeutic range of heparin levels at 0.3 to 0.5 U/ml are 60 to 70 seconds. Ulises Bennett Irene [facility] LAB BLOOD ORDERABLES Final Res ult [facility]
[address] [place] [address], * POC Glucose Once (07/24/2025 11:30 AM EDT) Glucose 93 70 - 130 mg/dL 07/24/2025 11:33 AM EDT [facility] Comment:Serial Number: [id number]: [id number] Blood 07/24/2025 11:3 0 AM EDT 07/24/2025 11:33 AM EDT Norma Whitney DO POINT OF CARE TEST ORD ERABLES Final Result [facility]
[address] [place] [address], * DUPLEX LOWER EXTREMITY ART/GRAFTS LEFT CAR - COR/REGI/MAD (07/24/2025 9:21 AM EDT) FORK OPERATOR Distal PSV-Left 55.22 cm/s FORK OPERATOR Distal EDV-Left 15.23 cm/s DFA Prox PSV-Left 48.70 cm/s DFA Prox EDV-Left 9.90 cm/s SFA Prox PSV-Left 13.3 cm/s SFA Mid PSV-Left 0.00 cm/s SFA Distal PSV-Left 0.00 cm/s Popiteal A Prox PSV-Left 0.00 cm/s Popiteal A Distal PSV-Left 0.00 cm/s Ant Tibial A Prox PSV-Left 16.1 cm/s Ant Tibial A Prox EDV-Left 9.90 cm/s Ant Tibial A Mid PSV-Left 9.2 cm/s Ant Tibial A Mid EDV-Left 5.70 cm/s Ant Tibial A Distal PSV-Left 9.2 cm/s Ant Tibial A Distal EDV-Left 5.80 cm/s EPILEPSY PHYSICIAN Prox PSV-Left 0.00 cm/s EPILEPSY PHYSICIAN Mid PSV-Left 0.00 cm/s EPILEPSY PHYSICIAN Distal PSV-Left 0.00 cm/s Peroneal Mid PSV-Left 0.00 cm/s Left groin FORK OPERATOR sys 55.2 cm/sec Anatomical Region Laterality Modality Ultrasound Narrative 07/24/2025 3:09 PM EDT This was a unilateral left lower extremity arterial duplex study. Monophasic waveforms in the common femoral and proximal superficial femoral arteries, suggestive of significant aortoiliac level disease. Occluded mid superficial femoral, distal superficial femoral, popliteal, posterior tibial, and peroneal segments. Trivial, low velocity flow noted in the mid and distal anterior tibial artery segments. The tibioperoneal trunk and dorsalis pedis arteries were not well-visualized. Left Stent Additional Left Stent Comments: Unable to get a good visualization of left stent during time of exam. Left Lower Arterial Findings The left distal common femoral artery exhibits monophasic, low resistive arterial flow. The left proximal deep femoral artery exhibits monophasic, low resistive arterial flow. The left proximal superficial femoral artery exhibits monophasic, low resistive arterial flow. The left mid superficial femoral artery flow is absent. The left distal superficial femoral artery flow is absent. The left proximal popliteal artery flow is absent. The left distal popliteal artery flow is absent. The left proximal anterior tibial artery exhibits monophasic, low resistive arterial flow. The left mid anterior tibial artery exhibits monophasic, low resistive arterial flow. The left distal anterior tibial artery exhibits monophasic, low resistive arterial flow. The left tibial peroneal trunk is not well visualized. The left proximal posterior tibial artery flow is absent. The left mid posterior tibial artery flow is absent. The left distal posterior tibial artery flow is absent. The left mid peroneal artery flow is absent. Additional findings: SFA mid, SFA distal, Pop A proximal, Pop A distal, EPILEPSY PHYSICIAN proximal, EPILEPSY PHYSICIAN mid, EPILEPSY PHYSICIAN distal, and Neelima A mid had absent flow during time of exam. Unable to visualize left TP trunk and DPA during time of exam. Monophasic waveforms are detected in all other left lower extremity arteries. No prior exams for comparison. Additional Study Details Study performed at bedside. The study is technically difficult for diagnosis. The quality of the study is limited due to an uncooperative patient, patient positioning and Pain Intolerance. us Amada Ibrahim MD CV VASCULAR ORDERABLES Final Result * POC Glucose Q6H (07/24/2025 7:53 AM EDT) Pathologist [facility] Glucose 106 70 - 130 mg/dL 07/24/2025 7:55 AM EDT [facility] Comment:Serial Number: [id number]: [id number] Blood 07/24/2025 7:53 AM EDT 07/24/2025 7:55 AM EDT Amada Ibrahim MD POINT OF CARE TEST ORDERABLES Final Result [facility]
[address] [place] [address], * (ABNORMAL) High Sensitivity Troponin T (07/24/2025 4:45 AM EDT) Pathologist [facility] HS Troponin T 23(H) <14 ng/L 07/24/2025 5:25 AM EDT [facility] Blood Venipuncture / Unknown 07/24/2025 4:45 AM EDT 07/24/2025 4:50 AM EDT Narrative [facility] - 07/24/2025 5:25 AM EDT High Sensitive Troponin T Reference Range: <14.0 ng/L- Negative Female for AMI <22.0 ng/L- Negative Male for AMI >=14 - Abnormal Female indicating possible myocardial injury. >=22 - Abnormal Male indicating possible myocardial injury. Clinicians would have to utilize clinical acumen, EKG, Troponin, and serial changes to determine if it is an Acute Myocardial Infarction or myocardial injury due to an underlying chronic condition. Amada Ibrahim MD LAB BLOOD ORDERABLES Final Re sult Performing Organization Address [facility] Co de Phone Number [facility]
[address] [place] [address], * (ABNORMAL) aPTT (07/24/2025 4:45 AM EDT) PTT 59.2(L) 60.0 - 90.0 seconds 07/24/2025 6:17 AM EDT [facility] Blood Venipuncture / Unknown 07/24/2025 4:45 AM EDT 07/24/2025 5:46 AM EDT [facility] - 07/24/2025 6:17 AM EDT PTT = The equivalent PTT values for the therapeutic range of heparin levels at 0.3 to 0.5 U/ml are 60 to 70 seconds. Ulises Bonilla [facility] LAB BLOOD ORDERABLES Final Res ult Performing Organization Address [facility] de Phone Number [facility]
[address] [place] [address], * (ABNORMAL) Hemoglobin A1c (07/24/2025 4:45 AM EDT) Hemoglobin A1C 6.03(H) 4.80 - 5.60 % 07/24/2025 5:45 AM EDT [facility] Blood Venipuncture / Unknown 07/24/2025 4:45 AM EDT 07/24/2025 4:51 AM EDT [facility] - 07/24/2025 5:45 AM EDT Hemoglobin A1C Ranges: Increased Risk for Diabetes 5.7% to 6.4% Diabetes >= 6.5% Diabetic Goal < 7.0% Amada Ibrahim MD LAB BLOOD ORDERABLES Final Re sult [facility]
[address] [place] [address], * Lipid Panel (07/24/2025 4:45 AM EDT) Total Cholesterol 105 0 - 200 mg/dL 07/24/2025 5:25 AM EDT [facility] Triglycerides 65 0 - 150 mg/dL 07/24/2025 5:25 AM EDT [facility] HDL Cholesterol 50 40 - 60 mg/dL 07/24/2025 5:25 AM EDT [facility] LDL Cholesterol 41 0 - 100 mg/dL 07/24/2025 5:25 AM EDT [facility] VLDL Cholesterol 14 5 - 40 mg/dL 07/24/2025 5:25 AM EDT [facility] LDL/HDL Ratio 0.84 07/24/2025 5:25 AM EDT [facility] Blood Venipuncture / Unknown 07/24/2025 4:45 AM EDT 07/24/2025 4:50 AM EDT Narrative [facility] - 07/24/2025 5:25 AM EDT Cholesterol Reference Ranges (U.S. Department of Health and Human Services ATP III Classifications) Desirable <200 mg/dL Borderline High 200-239 mg/dL High Risk >240 mg/dL Triglyceride Reference Ranges (U.S. Department of Health and Human Services ATP III Classifications) Normal <150 mg/dL Borderline High 150-199 mg/dL High 200-499 mg/dL Very High >500 mg/dL HDL Reference Ranges (U.S. Department of Health and Human Services ATP III Classifications) Low <40 mg/dl (major risk factor for CHD) High >60 mg/dl ('negative' risk factor for CHD) LDL Reference Ranges (U.S. Department of Health and Human Services ATP III Classifications) Optimal <100 mg/dL Near Optimal 100-129 mg/dL Borderline High 130-159 mg/dL High 160-189 mg/dL Very High >189 mg/dL LDL is calculated using the NIH LDL-C calculation. Amada Ibrahim MD LAB BLOOD ORDERABLES Final Re sult Performing Organization Address [facility] Co de Phone Number [facility]
[address] [place] [address], * Phosphorus (07/24/2025 4:45 AM EDT) Phosphorus 3.6 2.5 - 4.5 mg/dL 07/24/2025 5:25 AM EDT [facility] Blood Venipuncture / Unknown 07/24/2025 4:45 AM EDT 07/24/2025 4:50 AM EDT Amada Ibrahim MD LAB BLOOD ORDERABLES Final Re sult Performing Organization Address [facility] de Phone Number [facility]
[address] [place] [address], * Magnesium (07/24/2025 4:45 AM EDT) Magnesium 1.7 1.6 - 2.4 mg/dL 07/24/2025 5:25 AM EDT [facility] Blood Venipuncture / Unknown 07/24/2025 4:45 AM EDT 07/24/2025 4:50 AM EDT Amada Ibrahim MD LAB BLOOD ORDERABLES Final Re sult Performing Organization Address [facility] de Phone Number [facility]
[address] [place] [address], * Lactic Acid, Plasma (07/24/2025 4:45 AM EDT) Lactate 0.6 0.5 - 2.0 mmol/L 07/24/2025 5:17 AM EDT [facility] Comment:Falsely depressed re sults may occur on samples drawn from patients receiving N-Acetylcysteine (NAC) or Metamizole. Blood Venipuncture / Unknown 07/24/2025 4:45 AM EDT 07/24/2025 4:50 AM EDT Amada Ibrahim MD LAB BLOOD ORDERABLES Final Re sult Performing Organization Address [facility]/ZIP Co de Phone Number [facility]
[address] [place] [address], * CK (07/24/2025 4:45 AM EDT) Creatine Kinase 61 20 - 180 U/L 07/24/2025 5:25 AM EDT [facility] Blood Venipuncture / Unknown 07/24/2025 4:45 AM EDT 07/24/2025 4:50 AM EDT Amada Ibrahim MD LAB BLOOD ORDERABLES Final Re sult Performing Organization Address [facility] de Phone Number [facility]
[address] [place] [address], * Digoxin Level (07/24/2025 4:45 AM EDT) Digoxin 0.62 0.60 - 1.20 ng/mL 07/24/2025 5:25 AM EDT [facility] Blood Venipuncture / Unknown 07/24/2025 4:45 AM EDT 07/24/2025 4:50 AM EDT Narrative [facility] - 07/24/2025 5:25 AM EDT Results may be falsely increased if patient taking Biotin. us Amada Ibrahim MD LAB BLOOD ORDERABLES Final Re sult Performing Organization Address City/[facility]/ZIP Co de Phone Number [facility]
[address] [place] [address], * (ABNORMAL) Comprehensive Metabolic Panel (07/24/2025 4:45 AM EDT) [facility] Signature Glucose 118(H) 65 - 99 mg/dL 07/24/2025 5:25 AM EDT [facility] BUN 10.3 8.0 - 23.0 mg/dL 07/24/2025 5:25 AM EDT [facility] Creatinine 0.54(L) 0.57 - 1.00 mg/dL 07/24/2025 5:25 AM EDT [facility] Sodium 133(L) 136 - 145 mmol/L 07/24/2025 5:25 AM EDT [facility] Potassium 4.1 3.5 - 5.2 mmol/L 07/24/2025 5:25 AM EDT [facility] Chloride 99 98 - 107 mmol/L 07/24/2025 5:25 AM EDT [facility] CO2 23.7 22.0 - 29.0 mmol/L 07/24/2025 5:25 AM EDT [facility] Calcium 8.6 8.6 - 10.5 mg/dL 07/24/2025 5:25 AM EDT [facility] Total Protein 5.8(L) 6.0 - 8.5 g/dL 07/24/2025 5:25 AM EDT [facility] Albumin 3.2(L) 3.5 - 5.2 g/dL 07/24/2025 5:25 AM EDT [facility] ALT (SGPT) 10 1 - 33 U/L 07/24/2025 5:25 AM EDT [facility] AST (SGOT) 19 1 - 32 U/L 07/24/2025 5:25 AM EDT [facility] Alkaline Phosphatase 49 39 - 117 U/L 07/24/2025 5:25 AM EDT [facility] Total Bilirubin 0.2 0.0 - 1.2 mg/dL 07/24/2025 5:25 AM EDT [facility] Globulin 2.6 gm/dL 07/24/2025 5:25 AM EDT [facility] Comment:Calculated Result A/G Ratio 1.2 g/dL 07/24/2025 5:25 AM EDT [facility] BUN/Creatinine Ratio 19.1 7.0 - 25.0 07/24/2025 5:25 AM EDT [facility] Anion Gap 10.3 5.0 - 15.0 mmol/L 07/24/2025 5:25 AM EDT [facility] eGFR 90.9 >60.0 mL/min/1.7 3 07/24/2025 5:25 AM EDT [facility] Blood Venipuncture / Unknown 07/24/2025 4:45 AM EDT 07/24/2025 4:50 AM EDT [facility] - 07/24/2025 5:25 AM EDT GFR Categories in Chronic Kidney Disease (CKD) GFR Category GFR (mL/min/1.73) Interpretation G1 90 or greater Normal or high (1) G2 60-89 Mild decrease (1) G3a 45-59 Mild to moderate decrease G3b 30-44 Moderate to severe decrease G4 15-29 Severe decrease G5 14 or less Kidney failure (1)In the absence of evidence of kidney disease, neither GFR category G1 or G2 fulfill the criteria for CKD. eGFR calculation 2020 CKD-EPI creatinine equation, which does not include race as a factor us Amada Ibrahim MD LAB BLOOD ORDERABLES Final Re sult [facility]
[address] [place] [address], * (ABNORMAL) CBC Auto Differential (07/24/2025 4:45 AM EDT) WBC 8.96 3.40 - 10.80 10*3/mm3 07/24/2025 4:54 AM EDT [facility] RBC 3.77 3.77 - 5.28 10*6/mm3 07/24/2025 4:54 AM EDT [facility] Hemoglobin 10.8(L) 12.0 - 15.9 g/dL 07/24/2025 4:54 AM [facility] Hematocrit 33.8(L) 34.0 - 46.6 % 07/24/2025 4:54 AM [facility] MCV 89.7 79.0 - 97.0 fL 07/24/2025 4:54 AM EDT [facility] MCH 28.6 26.6 - 33.0 pg 07/24/2025 4:54 AM [facility] MCHC 32.0 31.5 - 35.7 g/dL 07/24/2025 4:54 AM [facility] RDW 12.2(L) 12.3 - 15.4 % 07/24/2025 4:54 AM [facility] RDW-SD 40.1 37.0 - 54.0 fl 07/24/2025 4:54 AM [facility] MPV 8.7 6.0 - 12.0 fL 07/24/2025 4:54 AM [facility] Platelets 282 140 - 450 10*3/mm3 07/24/2025 4:54 AM [facility] Neutrophil % 55.9 42.7 - 76.0 % 07/24/2025 4:54 AM [facility] Lymphocyte % 27.9 19.6 - 45.3 % 07/24/2025 4:54 AM [facility] Monocyte % 9.2 5.0 - 12.0 % 07/24/2025 4:54 AM [facility] Eosinophil % 6.1 0.3 - 6.2 % 07/24/2025 4:54 AM EDT [facility] Basophil % 0.3 0.0 - 1.5 % 07/24/2025 4:54 AM [facility] Immature Grans % 0.6(H) 0.0 - 0.5 % 07/24/2025 4:54 AM EDT [facility] Neutrophils, Absolute 5.01 1.70 - 7.00 10*3/mm3 07/24/2025 4:54 AM EDT [facility] Lymphocytes, Absolute 2.50 0.70 - 3.10 10*3/mm3 07/24/2025 4:54 AM EDT [facility] Monocytes, Absolute 0.82 0.10 - 0.90 10*3/mm3 07/24/2025 4:54 AM EDT [facility] Eosinophils, Absolute 0.55(H) 0.00 - 0.40 10*3/mm3 07/24/2025 4:54 AM EDT [facility] Basophils, Absolute 0.03 0.00 - 0.20 10*3/mm3 07/24/2025 4:54 AM EDT [facility] Immature Grans, Absolute 0.05 0.00 - 0.05 10*3/mm3 07/24/2025 4:54 AM EDT [facility] nRBC 0.0 0.0 - 0.2 /100 WBC 07/24/2025 4:54 AM EDT [facility] Blood Venipuncture / Unknown 07/24/2025 4:45 AM EDT 07/24/2025 4:51 AM EDT Amada Ibrahim MD LAB BLOOD ORDERABLES Final Re sult [facility]
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 2.There is a patent right superficial femoral artery stent with a three-vessel runoff to the ankle. Electronically Signed: Vinod Cates MD 07/23/2025 11:58 PM EDT Workstation ID: [id number] Narrative 07/23/2025 11:[address] ANGIOGRAM LOWER EXTREMITY BILATERAL Date of Exam: 07/23/2025 10:56 PM EDT Indication: critical limb ischemia. Comparison: CT non contrast from earlier same day Technique: CTA of the bilateral lower extremities was performed after the uneventful intravenous administration of iodinated contrast. Reconstructed coronal and sagittal images were also obtained. In addition, a 3-D volume rendered image was created for interpretation. Automated exposure control and iterative reconstruction methods were used. Findings: There is distal abdominal aortic atherosclerosis and atherosclerosis of the bilateral common iliac arteries. On the right side, there is calcific atherosclerosis with post treatment changes of stenting of the right external iliac artery. Just proximal to the iliac stent, there is moderate grade stenosis with approximately 50% stenosis at the bifurcation proximally on the right. There is stenting of the right superficial femoral artery which is patent. Beyond the stent and through the area of the James's canal there is diffuse atherosclerosis of the right SFA but there is no occlusion. There is a stent from the distal SFA through the popliteal artery. This appears to be patent. There is a widely patent anterior tibial artery. The peroneal and dorsalis pedis arteries are diffusely diseased with calcification but there does appear to be a three-vessel runoff to the ankle. There is a patent left common iliac artery stent which is widely patent. There is disease of the internal iliac artery. The left external iliac arteries widely patent. There is a stent of the left femoral artery which is occluded just beyond the profunda femoris artery which is patent. The entirety of the SFA is occluded to the level of the popliteal which is also occluded. There is reconstitution of the infrapopliteal runoff with diffuse calcific atherosclerosis of the peroneal and dorsalis pedis arteries with a patent anterior tibial artery to the ankle. Procedure Note Vinod Cates MD - 07/24/2025 CT ANGIOGRAM LOWER EXTREMITY BILATERAL Date of Exam: 07/23/2025 10:56 PM EDT Indication: critical limb ischemia. Comparison: CT non contrast from earlier same day Technique: CTA of the bilateral lower extremities was performed after theuneventful intravenous administration of iodinated contrast.Reconstructed coronal and sagittal images were also obtained. In addition,a 3-D volume rendered image was created for interpretation. Automated exposure control and iterative reconstructionmethods were used. Findings: There is distal abdominal aortic atherosclerosis and atherosclerosis ofthe bilateral common iliac arteries. On the right side, there is calcific atherosclerosis with post treatmentchanges of stenting of the right external iliac artery. Just proximal tothe iliac stent, there is moderate grade stenosis with approximately 50%stenosis at the bifurcation proximally on the right. There is stenting of the right superficialfemoral artery which is patent. Beyond the stent and through the area ofthe James's canal there is diffuse atherosclerosis of the right SFA butthere is no occlusion. There is a stent from the distal SFA through the popliteal artery. This appears to bepatent. There is a widely patent anterior tibial artery. The peroneal anddorsalis pedis arteries are diffusely diseased with calcification butthere does appear to be a three-vessel runoff to the ankle. There is a patent left common iliac artery stent which is widely patent.There is disease of the internal iliac artery. The left external iliacarteries widely patent. There is a stent of the left femoral artery whichis occluded just beyond the profunda femoris artery which is patent. The entirety of the SFA is occluded tothe level of the popliteal which is also occluded. There is reconstitutionof the infrapopliteal runoff with diffuse calcific atherosclerosis of theperoneal and dorsalis pedis arteries with a patent anterior tibial artery to the ankle. 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 2.There is a patent right superficial femoral artery stent with athree-vessel runoff to the ankle. Electronically Signed: Vinod Cates MD 07/23/2025 11:58 PM EDT Workstation ID: [id number] us Amada Ibrahim MD IM CT ORDERABLES Final Resul t * (ABNORMAL) aPTT (07/23/2025 10:00 PM EDT) PTT 38.1(L) 60.0 - 90.0 seconds 07/23/2025 10:32 PM EDT [facility] Blood Structure of left upper limb / Unknown Venipuncture / Unknown 07/23/2025 10:00 PM EDT 07/23/2025 10:09 PM EDT Narrative [facility] - 07/23/2025 10:32 PM EDT PTT = The equivalent PTT values for the therapeutic range of heparin levels at 0.3 to 0.5 U/ml are 60 to 70 seconds. Vipul Barney MD LAB BLOOD ORDERABLES Ely l Result Performing Organization Address [facility] Co de Phone Number [facility]
[address] [place] [address], * (ABNORMAL) Protime-INR (07/23/2025 10:00 PM EDT) Protime 17.0(H) 12.2 - 15.3 Seconds 07/23/2025 10:32 PM EDT [facility] INR 1.30(H) 0.89 - 1.12 07/23/2025 10:32 PM EDT [facility] Blood Structure of left upper limb / Unknown Venipuncture / Unknown 07/23/2025 10:00 PM EDT 07/23/2025 10:09 PM EDT Vipul Barney MD LAB BLOOD ORDERABLES Ely l Result Performing Organization Address [facility]/ZIP Co de Phone Number [facility]
[address] [place] [address], * (ABNORMAL) Heparin Anti-Xa (07/23/2025 10:00 PM EDT) Heparin Anti-Xa (UFH) >1.10(HH) 0.30 - 0.70 IU/ml 07/23/2025 11:04 PM EDT [facility] Blood Structure of left upper limb / Unknown Venipuncture / Unknown 07/23/2025 10:00 PM EDT 07/23/2025 10:09 PM EDT Vipul Barney MD LAB BLOOD ORDERABLES Ely l Result Performing Organization Address [facility] de Phone Number [facility]
[address] [place] [address], * (ABNORMAL) High Sensitivity Troponin T 1Hr (07/23/2025 7:54 PM EDT) HS Troponin T 21(H) <14 ng/L 07/23/2025 8:19 PM EDT [facility] Troponin T Numeric Delta -5 ng/L 07/23/2025 8:19 PM EDT [facility] Troponin T % Delta -19 Abnormal if >/= 20% 07/23/2025 8:19 PM EDT [facility] Blood Venipuncture / Unknown 07/23/2025 7:54 PM EDT 07/23/2025 7:57 PM EDT Narrative [facility] - 07/23/2025 8:19 PM EDT High Sensitive Troponin T Reference Range: <14.0 ng/L- Negative Female for AMI <22.0 ng/L- Negative Male for AMI >=14 - Abnormal Female indicating possible myocardial injury. >=22 - Abnormal Male indicating possible myocardial injury. Clinicians would have to utilize clinical acumen, EKG, Troponin, and serial changes to determine if it is an Acute Myocardial Infarction or myocardial injury due to an underlying chronic condition. Vipul Barney MD LAB BLOOD ORDERABLES Ely l Result Performing Organization Address [facility] Co de Phone Number [facility]
[address] [place] [address], * CT Lower Extremity Left Without Contrast (07/23/2025 7:42 PM EDT) Anatomical Region Laterality Modality Pelvis, Hip, Thigh, Knee, Lower Leg, Ankle, Foot Left Computed Tomography 07/23/2025 8:01 PM EDT Impressions 07/23/2025 8:07 PM EDT Impression: 1.Focal soft tissue thickening along the medial aspect of the distal first phalanx with subtle skin irregularity, possibly the site of the ulceration. No CT signs of osteomyelitis. No soft tissue air or radiopaque foreign bodies or evidence of soft tissue abscess. 2.Diffuse subcutaneous edema around the foot and lateral aspect of the ankle. This could be due to cellulitis or possibly venous insufficiency, correlation with clinical scenario for this is needed. 3.Degenerative changes as described above. No acute bony abnormalities. Electronically Signed: Shaq Lewis DO 07/23/2025 8:07 PM EDT Workstation ID: [id number] Narrative 07/23/2025 8:[address] LOWER EXTREMITY LEFT WO CONTRAST Date of Exam: 07/23/2025 7:17 PM EDT Indication: left great toe ulcer, left foot redness. Comparison: Left foot radiographs dated 07/23/2025 Technique: Axial CT images were obtained of the left lower extremity without contrast administration. Reconstructed coronal and sagittal images were also obtained. Automated exposure control and iterative construction methods were used. Findings: There is focal soft tissue thickening along the medial aspect of the distal first phalanx. No periosteal reaction or bony destructive changes. No soft tissue air or radiopaque foreign bodies there is subtle skin irregularity, possibly the site of the ulceration. The foot is intact without acute fractures or dislocations. There are degenerative changes at the sesamoid bones of the great toe. There are degenerative changes in the tarsal bones. The Lisfranc joint is intact. There is a small to moderate plantar calcaneal enthesophyte. There is diffuse subcutaneous edema around the foot and the lateral aspect of the ankle. Soft tissue fat planes in intramuscular compartments are preserved. No pathologic enhancement. No loculated fluid collections. Procedure Note Shaq Lewis DO - 07/23/2025 CT LOWER EXTREMITY LEFT WO CONTRAST Date of Exam: 07/23/2025 7:17 PM EDT Indication: left great toe ulcer, left foot redness. Comparison: Left foot radiographs dated 07/23/2025 Technique: Axial CT images were obtained of the left lower extremitywithout contrast administration. Reconstructed coronal and sagittalimages were also obtained. Automated exposure control and iterativeconstruction methods were used. Findings: There is focal soft tissue thickening along the medial aspect of thedistal first phalanx. No periosteal reaction or bony destructive changes.No soft tissue air or radiopaque foreign bodies there is subtle skinirregularity, possibly the site of the ulceration. The foot is intact without acute fractures or dislocations.There are degenerative changes at the sesamoid bones of the great toe.There are degenerative changes in the tarsal bones. The Lisfranc joint isintact. There is a small to moderate plantar calcaneal enthesophyte. There is diffuse subcutaneous edema around the foot and the lateral aspectof the ankle. Soft tissue fat planes in intramuscular compartments arepreserved. No pathologic enhancement. No loculated fluid collections. IMPRESSION: Impression: 1.Focal soft tissue thickening along the medial aspect of the distal firstphalanx with subtle skin irregularity, possibly the site of theulceration. No CT signs of osteomyelitis. No soft tissue air or radiopaqueforeign bodies or evidence of soft tissue abscess. 2.Diffuse subcutaneous edema around the foot and lateral aspect of theankle. This could be due to cellulitis or possibly venous insufficiency,correlation with clinical scenario for this is needed. 3.Degenerative changes as described above. No acute bony abnormalities. Electronically Signed: Shaq Lewis DO 07/23/2025 8:07 PM EDT Workstation ID: [id number] Vipul Barney MD [facility] CT ORDERABLES Final R esult * ECG 12 Lead Pre-Op / Pre-Procedure (07/23/2025 6:08 PM EDT) QT Interval 406 ms ECG QTC Interval 450 ms ECG 07/23/2025 6:08 PM EDT 08/11/2025 11:04 AM EDT Narrative ECG - 08/11/2025 11:04 AM EDT Test Reason : Pre-Op / Pre-Procedure Blood Pressure : */* mmHG Vent. Rate : 74 BPM Atrial Rate : 74 BPM P-R Int : 140 ms QRS Dur : 124 ms QT Int : 406 ms P-R-T Axes : 52 -38 113 degrees QTcB Int : 450 ms Sinus rhythm with premature atrial complexes Left axis deviation Left bundle branch block Abnormal ECG No previous ECGs available Confirmed by VIPUL BARNEY ([id number]) on 08/11/2025 11:04:33 AM Referred By: ed Confirmed By: VIPLU BARNEY Procedure Note Vipul Barney MD - 08/11/2025 Test Reason : Pre-Op / Pre-Procedure Blood Pressure : */* mmHG Vent. Rate : 74 BPM Atrial Rate : 74 BPM P-R Int : 140 ms QRS Dur : 124 ms QT Int : 406 ms P-R-T Axes : 52 -38 113 degrees QTcB Int : 450 ms Sinus rhythm with premature atrial complexes Left axis deviation Left bundle branch block Abnormal ECG No previous ECGs available Confirmed by VIPUL BARNEY ([id number]) on 08/11/2025 11:04:33 AM Referred By: ed Confirmed By: VIPUL BARNEY us Vipul Barney MD ECG ORDERABLES Final Res ult BH ECG * XR Chest 1 View (07/23/2025 6:04 PM EDT) Anatomical Region Laterality Modality Body N/A Radiographic Sherry ging 07/23/2025 6:12 PM EDT Impressions 07/23/2025 6:13 PM EDT Impression: No radiographic evidence of acute chest process. Electronically Signed: López Haywood MD 07/23/2025 6:13 PM EDT Workstation ID: [id number] Narrative 07/23/2025 6:13 PM EDT XR CHEST 1 VW Date of Exam: 07/23/2025 5:48 PM EDT Indication: pre admission. Comparison: None available. Findings: No focal consolidation or effusion. Left lower lobe granuloma is visualized. Skinfolds overlie the bilateral hemithoraces. There is no evidence of pneumothorax. The pulmonary vasculature appears within normal limits. Patient is post left subclavian dual-lead pacemaker placement. The cardiac and mediastinal silhouette appear unremarkable. No acute osseous abnormality identified. Procedure Note López Haywood MD - 07/23/2025 XR CHEST 1 VW Date of Exam: 07/23/2025 5:48 PM EDT Indication: pre admission. Comparison: None available. Findings: No focal consolidation or effusion. Left lower lobe granuloma isvisualized. Skinfolds overlie the bilateral hemithoraces. There is noevidence of pneumothorax. The pulmonary vasculature appears within normallimits. Patient is post left subclavian dual-lead pacemaker placement. The cardiac and mediastinal silhouetteappear unremarkable. No acute osseous abnormality identified. IMPRESSION: Impression: No radiographic evidence of acute chest process. Electronically Signed: López Haywood MD 07/23/2025 6:13 PM EDT Workstation ID: [id number] [facility] Armand Barney MD IMG DIAGNOSTIC IMAGING OR DERABLES Final Result * XR Foot 3+ View Left (07/23/2025 5:48 PM EDT) Anatomical Region Laterality Modality Lower Extremities, Foot Left Radiogra phic Imaging 07/23/2025 5:50 PM EDT Impressions 07/23/2025 5:52 PM EDT 1. No acute fracture or posttraumatic subluxation identified. Electronically Signed: Hay Saldana MD 07/23/2025 5:52 PM EDT Workstation ID: [id number] Narrative 07/23/2025 5:52 PM EDT XR FOOT 3+ VW LEFT Date of Exam: 07/23/2025 5:27 PM EDT Indication: left foot/great toe pain/swelling/redness. TECHNIQUE: Left foot. COMPARISON: None available. FINDINGS: OSSEOUS STRUCTURES: There is normal alignment. No acute fracture or subluxation identified. Osteopenia/osteoporosis. No acute blastic or lytic lesion identified. JOINT SPACES: Mild degenerative changes present. No significant joint space loss. No significant joint effusion. SOFT TISSUES: No significant swelling present. Soft tissue air or radiopaque foreign body not present. RECOMMENDATIONS: Delayed plain film imaging in 7-14 days could be helpful in the setting of trauma. Subtle fractures can become more apparent on delayed imaging due to normal process of a healing fracture. Also, CT is more sensitive to subtle radiographically occult fracture. MRI is more sensitive to bone bruising, ligamentous and soft tissue injury. MRI and triple phase bone scan is more sensitive to the subtle/early changes of osteomyelitis. If fracture is present and patient age > or equal to 65 years old, the patient should be evaluated or treated for osteoporosis. Procedure Note Hay Saldana MD - 07/23/2025 XR FOOT 3+ VW LEFT Date of Exam: 07/23/2025 5:27 PM EDT Indication: left foot/great toe pain/swelling/redness. TECHNIQUE: Left foot. COMPARISON: None available. FINDINGS: OSSEOUS STRUCTURES: There is normal alignment. No acute fracture orsubluxation identified. Osteopenia/osteoporosis. No acute blastic orlytic lesion identified. JOINT SPACES: Mild degenerative changes present. No significant jointspace loss. No significant joint effusion. SOFT TISSUES: No significant swelling present. Soft tissue air orradiopaque foreign body not present. RECOMMENDATIONS: Delayed plain film imaging in 7-14 days could be helpfulin the setting of trauma. Subtle fractures can become more apparent ondelayed imaging due to normal process of a healing fracture. Also, CT ismore sensitive to subtle radiographically occult fracture. MRI is more sensitive to bone bruising,ligamentous and soft tissue injury. MRI and triple phase bone scan ismore sensitive to the subtle/early changes of osteomyelitis. If fracture is present and patient age > or equal to 65 years old, thepatient should be evaluated or treated for osteoporosis. IMPRESSION: 1. No acute fracture or posttraumatic subluxation identified. Electronically Signed: Hay Saldana MD 07/23/2025 5:52 PM EDT Workstation ID: [id number] Vipul Barney MD [facility] DIAGNOSTIC IMAGING OR DERABLES Final Result * Blood Culture - Blood, Arm, Left (07/23/2025 5:45 PM EDT) Blood Culture No growth at 5 days 07/28/2025 7:46 PM [facility] Blood Structure of left upper limb / Unknown Venipuncture / Unknown 07/23/2025 5:45 PM EDT 07/23/2025 7:44 PM EDT [facility] - 07/28/2025 7:46 PM EDT Less than seven (7) mL's of blood was collected. Insufficient quantity may yield false negative results. Vipul Barney MD MICROBIOLOGY - GENERAL OR DERABLES Final Result Performing Organization Address City/[facility] Co de Phone Number [facility]
[address] [place] [address], * Blood Culture - Blood, Arm, Right (07/23/2025 5:35 PM EDT) Pathologist [facility] Blood Culture No growth at 5 days 07/28/2025 7:46 PM EDT [facility] Blood Structure of right upper limb / Unknown Venipuncture / Unknown 07/23/2025 5:35 PM EDT 07/23/2025 7:44 PM EDT [facility] - 07/28/2025 7:46 PM EDT Less than seven (7) mL's of blood was collected. Insufficient quantity may yield false negative results. Vipul Barney MD MICROBIOLOGY - GENERAL OR DERABLES Final Result Performing Organization Address [facility] Co de Phone Number [facility]
[address] [place] [address], * (ABNORMAL) High Sensitivity Troponin T (07/23/2025 5:32 PM EDT) Pathologist [facility] HS Troponin T 26(H) <14 ng/L 07/23/2025 6:02 PM EDT [facility] Blood Line / Unknown 07/23/2025 5: 32 PM EDT 07/23/2025 5:40 PM EDT [facility] - 07/23/2025 6:02 PM EDT High Sensitive Troponin T Reference Range: <14.0 ng/L- Negative Female for AMI <22.0 ng/L- Negative Male for AMI >=14 - Abnormal Female indicating possible myocardial injury. >=22 - Abnormal Male indicating possible myocardial injury. Clinicians would have to utilize clinical acumen, EKG, Troponin, and serial changes to determine if it is an Acute Myocardial Infarction or myocardial injury due to an underlying chronic condition. Vipul Barney MD LAB BLOOD ORDERABLES Ely coelho Result [facility]
[address] [place] [address], * (ABNORMAL) CBC Auto Differential (07/23/2025 5:32 PM EDT) WBC 12.54(H) 3.40 - 10.80 10*3/mm3 07/23/2025 5:44 PM EDT [facility] RBC 4.42 3.77 - 5.28 10*6/mm3 07/23/2025 5:44 PM EDT [facility] Hemoglobin 12.6 12.0 - 15.9 g/dL 07/23/2025 5:44 PM EDT [facility] Hematocrit 38.7 34.0 - 46.6 % 07/23/2025 5:44 PM EDT [facility] MCV 87.6 79.0 - 97.0 fL 07/23/2025 5:44 PM EDT [facility] MCH 28.5 26.6 - 33.0 pg 07/23/2025 5:44 PM EDT [facility] MCHC 32.6 31.5 - 35.7 g/dL 07/23/2025 5:44 PM EDT [facility] RDW 12.4 12.3 - 15.4 % 07/23/2025 5:44 PM EDT [facility] RDW-SD 39.8 37.0 - 54.0 fl 07/23/2025 5:44 PM EDT [facility] MPV 8.7 6.0 - 12.0 fL 07/23/2025 5:44 PM EDT [facility] [facility] Platelets 392 140 - 450 10*3/mm3 07/23/2025 5:44 PM EDT [facility] Neutrophil % 57.1 42.7 - 76.0 % 07/23/2025 5:44 PM EDT [facility] Lymphocyte % 25.8 19.6 - 45.3 % 07/23/2025 5:44 PM EDT [facility] Monocyte % 9.9 5.0 - 12.0 % 07/23/2025 5:44 PM EDT [facility] Eosinophil % 6.7(H) 0.3 - 6.2 % 07/23/2025 5:44 PM EDT [facility] Basophil % 0.3 0.0 - 1.5 % 07/23/2025 5:44 PM EDT [facility] Immature Grans % 0.2 0.0 - 0.5 % 07/23/2025 5:44 PM EDT [facility] Neutrophils, Absolute 7.15(H) 1.70 - 7.00 10*3/mm3 07/23/2025 5:44 PM EDT [facility] Lymphocytes, Absolute 3.24(H) 0.70 - 3.10 10*3/mm3 07/23/2025 5:44 PM EDT [facility] Monocytes, Absolute 1.24(H) 0.10 - 0.90 10*3/mm3 07/23/2025 5:44 PM EDT [facility] Eosinophils, Absolute 0.84(H) 0.00 - 0.40 10*3/mm3 07/23/2025 5:44 PM EDT [facility] Basophils, Absolute 0.04 0.00 - 0.20 10*3/mm3 07/23/2025 5:44 PM EDT [facility] Immature Grans, Absolute 0.03 0.00 - 0.05 10*3/mm3 07/23/2025 5:[facility] nRBC 0.0 0.0 - 0.2 /100 WBC 07/23/2025 5:44 PM EDT [facility] Blood Line / Unknown 07/23/2025 5: 32 PM EDT 07/23/2025 5:40 PM EDT us Vipul Barney MD LAB BLOOD ORDERABLES Ely l Result [facility]
[address] [place] [address], * (ABNORMAL) Comprehensive Metabolic Panel (07/23/2025 5:32 PM EDT) Glucose 124(H) 65 - 99 mg/dL 07/23/2025 6:02 PM EDT [facility] BUN 10.8 8.0 - 23.0 mg/dL 07/23/2025 6:02 PM EDT [facility] Creatinine 0.63 0.57 - 1.00 mg/dL 07/23/2025 6:02 PM EDT [facility] Sodium 134(L) 136 - 145 mmol/L 07/23/2025 6:02 PM EDT [facility] Potassium 4.3 3.5 - 5.2 mmol/L 07/23/2025 6:02 PM EDT [facility] Chloride 96(L) 98 - 107 mmol/L 07/23/2025 6:02 PM EDT [facility] CO2 25.9 22.0 - 29.0 mmol/L 07/23/2025 6:02 PM EDT [facility] Calcium 9.5 8.6 - 10.5 mg/dL 07/23/2025 6:02 PM EDT [facility] Total Protein 7.2 6.0 - 8.5 g/dL 07/23/2025 6:02 PM EDT [facility] Albumin 3.9 3.5 - 5.2 g/dL 07/23/2025 6:02 PM EDT [facility] ALT (SGPT) 15 1 - 33 U/L 07/23/2025 6:02 PM EDT [facility] AST (SGOT) 23 1 - 32 U/L 07/23/2025 6:02 PM EDT [facility] Alkaline Phosphatase 61 39 - 117 U/L 07/23/2025 6:02 PM EDT [facility] Total Bilirubin 0.4 0.0 - 1.2 mg/dL 07/23/2025 6:02 PM EDT [facility] Globulin 3.3 gm/dL 07/23/2025 6:02 PM EDT [facility] Comment:Calculated Result A/G Ratio 1.2 g/dL 07/23/2025 6:02 PM T [facility] BUN/Creatinine Ratio 17.1 7.0 - 25.0 07/23/2025 6:02 PM EDT [facility] Anion Gap 12.1 5.0 - 15.0 mmol/L 07/23/2025 6:02 PM EDT [facility] eGFR 87.6 >60.0 mL/min/1.7 3 07/23/2025 6:02 PM T [facility] Blood Line / Unknown 07/23/2025 5: 32 PM EDT 07/23/2025 5:40 PM EDT [facility] - 07/23/2025 6:02 PM EDT GFR Categories in Chronic Kidney Disease (CKD) GFR Category GFR (mL/min/1.73) Interpretation G1 90 or greater Normal or high (1) G2 60-89 Mild decrease (1) G3a 45-59 Mild to moderate decrease G3b 30-44 Moderate to severe decrease G4 15-29 Severe decrease G5 14 or less Kidney failure (1)In the absence of evidence of kidney disease, neither GFR category G1 or G2 fulfill the criteria for CKD. eGFR calculation 2020 CKD-EPI creatinine equation, which does not include race as a factor us Vipul Barney MD LAB BLOOD ORDERABLES Ely laquita Result [facility]
[address] [place] [address], * Lactic Acid, Plasma (07/23/2025 5:32 PM EDT) Lactate 1.2 0.5 - 2.0 mmol/L 07/23/2025 6:00 PM EDT [facility] Comment:Falsely depressed re sults may occur on samples drawn from patients receiving N-Acetylcysteine (NAC) or Metamizole. Blood Line / Unknown 07/23/2025 5: 32 PM EDT 07/23/2025 5:40 PM EDT Vipul Barney MD LAB BLOOD ORDERABLES Ely coelho Result [facility]
[address] [place] [address], documented in this encounter Visit Diagnoses Diagnosis Critical limb ischemia of left lower extremity- Primary Cellulitis of left foot Ischemic ulcer, unspecified ulcer stage Peripheral artery disease Critical limb ischemia of left lower extremity PAD (peripheral artery disease) Unspecified peripheral vascular disease Type 2 diabetes mellitus with diabetic neuropathy, without long-term current use of insulin Primary hypertension Unspecified essential hypertension Mild intermittent asthma without complication Presence of cardiac pacemaker Cardiac pacemaker in situ Peripheral artery disease documented in this encounter Admitting Diagnoses Diagnosis PAD (peripheral artery disease) Unspecified peripheral vascular disease Peripheral artery disease documented in this encounter Administered Medications Inactive Administered Medications - up to 3 most recent administrations Medication Order MAR Action Action Date Dose Rate Site acetaminophen (TYLENOL) 160 MG/5ML oral solution 650 mg 650 mg, Oral, Every 4 Hours PRN, Mild Pain, Starting on Tue07/23/25 at 2222, If given for fever, use fever parameter: fever greater than 100.4 F Based on patient request - if ordered for moderate or severe pain, provider allows for administration of a medication prescribed for a lower pain scale. Do not exceed 4 grams of acetaminophen in a 24 hr period. Max dose of 2gm for AST/ALT greater than 120 units/L. If given for pain, use the following pain scale: Mild Pain = Pain Score of 1-3, CPOT 1-2 Moderate Pain = Pain Score of 4-6, CPOT 3-4 Severe Pain = Pain Score of 7-10, CPOT 5-8 acetaminophen (TYLENOL) suppository 650 mg 650 mg, Rectal, Every 4 Hours PRN, Mild Pain, Starting on Tue07/23/25 at 2222, If given for fever, use fever parameter: fever greater than 100.4 F Based on patient request - if ordered for moderate or severe pain, provider allows for administration of a medication prescribed for a lower pain scale. Do not exceed 4 grams of acetaminophen in a 24 hr period. Max dose of 2gm for AST/ALT greater than 120 units/L. If given for pain, use the following pain scale: Mild Pain = Pain Score of 1-3, CPOT 1-2 Moderate Pain = Pain Score of 4-6, CPOT 3-4 Severe Pain = Pain Score of 7-10, CPOT 5-8 acetaminophen (TYLENOL) tablet 650 mg 650 mg, Oral, Every 4 Hours PRN, Mild Pain, Starting on Tue07/23/25 at 2222, If given for fever, use fever parameter: fever greater than 100.4 F Based on patient request - if ordered for moderate or severe pain, provider allows for administration of a medication prescribed for a lower pain scale. Do not exceed 4 grams of acetaminophen in a 24 hr period. Max dose of 2gm for AST/ALT greater than 120 units/L. If given for pain, use the following pain scale: Mild Pain = Pain Score of 1-3, CPOT 1-2 Moderate Pain = Pain Score of 4-6, CPOT 3-4 Severe Pain = Pain Score of 7-10, CPOT 5-8 Given 07/25/2025 6:00 PM EDT 650 mg Given 07/25/2025 1:15 PM EDT 650 mg Given 07/25/2025 2:39 AM EDT 650 mg ALPRAZolam (XANAX) tablet 0.5 mg 0.5 mg, Oral, Every 8 Hours PRN, Anxiety, Agitation, Starting on Tue07/23/25 at 2223, For 5 days, (SHIRA) Caution: Look alike/sound alike drug alert. Avoid grapefruit juice Given 07/24/2025 6:32 PM EDT 0.5 mg aluminum-magnesium hydroxide-simethicone (MAALOX MAX) 400-400-40 MG/5ML suspension 15 mL 15 mL, Oral, Every 6 Hours PRN, Heartburn, Starting on Tue07/23/25 at 2224, Maximum 60 mL in 24 hours. apixaban (ELIQUIS) tablet 2.5 mg 2.5 mg, Oral, Every 12 Hours Scheduled, First dose on Tue07/24/25 at 0900, Tablet may be crushed and suspended in 60 mL of water or D5W and immediately delivered via NG tube. Avoid grapefruit juice., Indications: Atrial Fibrillation - requiring full anticoagulation, On hold since Tue07/23/2025 at 2307 until manually unheldIndications:Atrial Fibrillation - requiring full anticoagulation bisacodyl (DULCOLAX) EC tablet 5 mg 5 mg, Oral, Daily PRN, Constipation, Use if polyethylene glycol is ineffective, Starting on Tue07/23/25 at 2223, Use if no bowel movement after 12 hours. Swallow whole. Do not crush, split, or chew tablet. bisacodyl (DULCOLAX) suppository 10 mg 10 mg, Rectal, Daily PRN, Constipation, Use if bisacodyl oral is ineffective, Starting on Tue07/23/25 at 2223, Use if no bowel movement after 12 hours. Hold for diarrhea budesonide-formoterol (SYMBICORT) 160-4.5 MCG/ACT inhaler 2 puff 2 puff, Inhalation, 2 Times Daily - RT, First dose on Tue07/23/25 at 2355, Include Respiratory Treatment Education (SP) Shake well. Rinse mouth after use, do not swallow water. Send aerosols to pharmacy in ziplock bag for proper disposal. Given 07/25/2025 1:10 PM EDT 2 puffs Given 07/24/2025 7:21 PM EDT 2 puffs Calcium Replacement - Follow Nurse / BPA Driven Protocol Open Order & Select [facility] Electrolyte Replacement Protocol Algorithm to View Details carvedilol (COREG) tablet 6.25 mg 6.25 mg, Oral, Every 12 Hours Scheduled, First dose on Tue07/23/25 at 2321, Give with food. Given 07/25/2025 1:15 PM EDT 6.25 mg Given 07/24/2025 8:33 PM EDT 6.25 mg Given 07/24/2025 9:20 AM EDT 6.25 mg cefTRIAXone (ROCEPHIN) 1,000 mg in sodium chloride 0.9 % 100 mL MBP 1,000 mg, Intravenous, at 200 mL/hr, Administer over 30 Minutes, Once, On Tue07/23/25 at 2024, For 1 dose, LR should be paused and flushing of the line with NS is recommended prior to and after completion of ceftriaxone infusion due to incompatibility. Do not co-adminster with calcium-containing solutions. Caution: Look alike/sound alike drug alert, Indications: Skin and Soft Tissue InfectionIndications:Skin and Soft Tissue Infection New Bag 07/23/2025 9:13 PM EDT 1,000 mg 200 mL/hr cefTRIAXone (ROCEPHIN) 2,000 mg in sodium chloride 0.9 % 100 mL MBP 2,000 mg, Intravenous, at 200 mL/hr, Administer over 30 Minutes, Every 24 Hours, First dose on Tue07/24/25 at 2000, For 5 doses, LR should be paused and flushing of the line with NS is recommended prior to and after completion of ceftriaxone infusion due to incompatibility. Do not co-adminster with calcium-containing solutions. Caution: Look alike/sound alike drug alert, Indications: Skin and Soft Tissue InfectionIndications:Skin and Soft Tissue Infection New Bag 07/24/2025 8:31 PM EDT 2,000 mg 200 mL/hr clopidogrel (PLAVIX) tablet 75 mg 75 mg, Oral, Daily, First dose on Tue07/24/25 at 0900 Given 07/25/2025 1:15 PM EDT 75 mg dextrose (D50W) (25 g/50 mL) IV injection 25 g 25 g, Intravenous, Every 15 Minutes PRN, Low Blood Sugar, Blood Sugar Less Than 70, Starting on Tue07/23/25 at 2226, Blood sugar less than 70; patient has IV access - Unresponsive, NPO or Unable To Safely Swallow dextrose (GLUTOSE) oral gel 15 g 15 g, Oral, Every 15 Minutes PRN, Low Blood Sugar, Blood sugar less than 70, Starting on Tue07/23/25 at 2226, BS<70, Patient Alert, Is not NPO, Can safely swallow. digoxin (LANOXIN) tablet 125 mcg 125 mcg, Oral, Daily Digoxin, First dose on Tue07/24/25 at 1200, Check and record heart rate. Given 07/25/2025 1:15 PM EDT 125 mcg Given 07/24/2025 12:30 PM EDT 125 mcg enoxaparin sodium (LOVENOX) syringe 50 mg 50 mg (rounded from 53.3 mg = 1 mg/kg 53.3 kg), Subcutaneous, Every 12 Hours, First dose on Sadaf 07/25/25 at 1245, Give subcutaneous in abdomen only. Do not massage site after injection., Indications: DVT/PE (active thrombosis)Indications:DVT/PE (active thrombosis) Given 07/25/2025 1:00 PM EDT 50 mg Right Lower Abdomen famotidine (PEPCID) tablet 40 mg 40 mg, Oral, Daily, First dose on Tue07/24/25 at 0900 Given 07/25/2025 1:15 PM EDT 40 mg Given 07/24/2025 9:20 AM EDT 40 mg gabapentin (NEURONTIN) capsule 300 mg 300 mg, Oral, Every 12 Hours Scheduled, First dose on Tue07/23/25 at 2325, (SHIRA) Given 07/25/2025 1:15 PM EDT 300 mg Given 07/24/2025 8:33 PM EDT 300 mg Given 07/24/2025 9:20 AM EDT 300 mg glucagon (GLUCAGEN) injection 1 mg 1 mg, Intramuscular, Every 15 Minutes PRN, Low Blood Sugar, Blood Glucose Less Than 70, Starting on Tue07/23/25 at 2226, Blood Glucose Less Than 70 - Patient Without IV Access - Unresponsive, NPO or Unable To Safely Swallow Reconstitute powder for injection by adding 1 mL of document imaging specialist-supplied sterile diluent or sterile water for injection to a vial containing 1 mg of the drug, to provide solutions containing 1 mg/mL. Shake vial gently to dissolve. heparin 67590 units/250 mL (100 units/mL) in 0.45 % NaCl infusion 19 Units/kg/hr 47.2 kg (8.968 mL/hr, rounded to 8.96 mL/hr), Intravenous, Titrated, Starting on Tue07/23/25 at 2210, Pharmacy dosing - VTE (PE/DVT) - Boluses (with initial bolus), Indications: DVT/PE (active thrombosis)Indications:DV T/PE (active thrombosis) Rate Change (DUAL SIGN) 07/24/2025 6:35 AM EDT 19 Units/kg/hr 8.96 mL/hr New Bag 07/23/2025 10:00 PM EDT 18 Units/kg/hr 8.49 mL/ hr heparin 20575 units/250 mL (100 units/mL) in 0.45 % NaCl infusion 18.5 Units/kg/hr 47.2 kg (8.732 mL/hr, rounded to 8.73 mL/hr), Intravenous, Titrated, Starting on Tue07/24/25 at 1730, For 20 hours, Pharmacy dosing - VTE (PE/DVT) - Boluses (with initial bolus), Indications: DVT/PE (active thrombosis)Indications:DVT /PE (active thrombosis) New Bag 07/25/2025 1:03 AM EDT 18.5 Units/kg/hr 8.73 mL/hr Rate Change (DUAL SIGN) 07/24/2025 11:56 PM EDT 18.5 Units /kg/hr 8.73 mL/hr Rate Change (DUAL SIGN) 07/24/2025 5:03 PM EDT 18 Units/kg /hr 8.49 mL/hr HYDROcodone-acetaminophen (NORCO) 5-325 MG per tablet 1 tablet 1 tablet, Oral, Every 6 Hours PRN, Moderate Pain, Starting on Tue07/23/25 at 2222, For 5 days, Based on patient request - if ordered for moderate or severe pain, provider allows for administration of a medication prescribed for a lower pain scale. [SHIRA] Do not exceed 4 grams of acetaminophen in a 24 hr period. Max dose of 2gm for AST/ALT greater than 120 units/L If given for pain, use the following pain scale: Mild Pain = Pain Score of 1-3, CPOT 1-2 Moderate Pain = Pain Score of 4-6, CPOT 3-4 Severe Pain = Pain Score of 7-10, CPOT 5-8 Given 07/24/2025 11:02 PM EDT 1 tablet Given 07/24/2025 2:00 AM EDT 1 tablet HYDROmorphone (DILAUDID) injection 0.25 mg 0.25 mg, Intravenous, Every 4 Hours PRN, Severe Pain, Moderate Pain, Starting on Tue07/25/25 at 0840, For 3 days, Based on patient request - if ordered for moderate or severe pain, provider allows for administration of a medication prescribed for a lower pain scale. If given for pain, use the following pain scale: Mild Pain = Pain Score of 1-3, CPOT 1-2 Moderate Pain = Pain Score of 4-6, CPOT 3-4 Severe Pain = Pain Score of 7-10, CPOT 5-8 HYDROmorphone (DILAUDID) injection 0.5 mg 0.5 mg, Intravenous, Once, On Tue07/23/25 at 2019, For 1 dose, Based on patient request - if ordered for moderate or severe pain, provider allows for administration of a medication prescribed for a lower pain scale. If given for pain, use the following pain scale: Mild Pain = Pain Score of 1-3, CPOT 1-2 Moderate Pain = Pain Score of 4-6, CPOT 3-4 Severe Pain = Pain Score of 7-10, CPOT 5-8 Given 07/23/2025 9:11 PM EDT 0.5 mg HYDROmorphone (DILAUDID) injection 0.5 mg 0.5 mg, Intravenous, Every 4 Hours PRN, Severe Pain, Moderate Pain, Starting on Tue07/23/25 at 2223, For 5 days, Based on patient request - if ordered for moderate or severe pain, provider allows for administration of a medication prescribed for a lower pain scale. If given for pain, use the following pain scale: Mild Pain = Pain Score of 1-3, CPOT 1-2 Moderate Pain = Pain Score of 4-6, CPOT 3-4 Severe Pain = Pain Score of 7-10, CPOT 5-8 Given 07/25/2025 5:05 AM EDT 0.5 mg Given 07/24/2025 5:02 AM EDT 0.5 mg insulin regular (humuLIN R,novoLIN R) injection 2-7 Units 2-7 Units, Subcutaneous, Every 6 Hours Scheduled, First dose on Tue07/24/25 at 0000, Correction Insulin - Low Dose - Total Insulin Dose Less Than 40 units/day (Lean, Elderly or Renal Patients) Blood Glucose 150-199 mg/dL - 2 units Blood Glucose 200-249 mg/dL - 3 units Blood Glucose 250-299 mg/dL - 4 units Blood Glucose 300-349 mg/dL - 5 units Blood Glucose 350-400 mg/dL - 6 units Blood Glucose Greater Than 400 mg/dL - 7 units & Call Provider ([facility]) Caution: Look alike/sound alike drug alert([facility]) iopamidol (ISOVUE-370) 76 % injection 100 mL 100 mL, Intravenous, Once in Imaging, On Tue07/23/25 at 2335, For 1 dose Given 07/23/2025 11:19 PM EDT 100 mL ipratropium-albuterol (DUO-NEB) nebulizer solution 3 mL 3 mL, Nebulization, Every 6 Hours PRN, Shortness of Air, Wheezing, Starting on Tue07/23/25 at 2307, Include Respiratory Treatment Education Magnesium Cardiology Dose Replacement - Follow Nurse / BPA Driven Protocol Open Order & Select [facility] Electrolyte Replacement Protocol Algorithm to View Details magnesium sulfate 4g/100mL (PREMIX) infusion 4 g, Intravenous, Administer over 4 Hours, Once, On Tue07/24/25 at 0715, For 1 dose New Bag 07/24/2025 9:20 AM EDT 4 g naloxone (NARCAN) injection 0.4 mg 0.4 mg, Intravenous, Every 5 Minutes PRN, Respiratory Depression, Starting on Sadaf 07/25/25 at 0840, If respiratory rate is less than 8 breaths/minute or patient is difficult to arouse stop any narcotics and contact physician. Administer slow IV push. Repeat as ordered until patient's respiratory rate is greater than 12 breaths/minute. nitroglycerin (NITROSTAT) SL tablet 0.4 mg 0.4 mg, Sublingual, Every 5 Minutes PRN, Chest Pain, Starting on Tue07/23/25 at 2217, If Pain Unrelieved After 3 Doses Notify MD May administer up to 3 doses per episode. Hold if SBP less than 100. ondansetron (ZOFRAN) injection 4 mg 4 mg, Intravenous, Every 6 Hours PRN, Nausea, Vomiting, Starting on Tue07/23/25 at 2224, If BOTH ondansetron (ZOFRAN) and promethazine (PHENERGAN) are ordered use ondansetron first and THEN promethazine IF ondansetron is ineffective. Given 07/23/2025 11:36 PM EDT 4 mg Pharmacy to dose vancomycin Continuous PRN, Starting on Tue07/24/25 at 0321, Until Sadaf 07/25/25 at 2032, Consult, Indications: Skin and Soft Tissue InfectionIndications:Skin and Soft Tissue Infection Phosphorus Replacement - Follow Nurse / BPA Driven Protocol Open Order & Select [facility] Electrolyte Replacement Protocol Algorithm to View Details polyethylene glycol (MIRALAX) packet 17 g 17 g, Oral, Daily PRN, Constipation, Use if senna-docusate is ineffective, Starting on Tue07/23/25 at 2223, Use if no bowel movement after 12 hours. Mix in 6-8 ounces of water. Use 4-8 ounces of water, tea, or juice for each 17 gram dose. Potassium Replacement - Follow Nurse / BPA Driven Protocol Open Order & Select [facility] Electrolyte Replacement Protocol Algorithm to View Details pravastatin (PRAVACHOL) tablet 40 mg 40 mg, Oral, Nightly, First dose on Tue07/24/25 at 2100, Avoid grapefruit juice. Given 07/24/2025 8:33 PM EDT 40 mg QUEtiapine (SEROquel) tablet 12.5 mg 12.5 mg, Oral, Every 12 Hours PRN, agitation, sleep, Starting on Tue07/25/25 at 0839, Caution: Look alike/sound alike drug alert sennosides-docusate (PERICOLACE) 8.6-50 MG per tablet 2 tablet 2 tablet, Oral, 2 Times Daily PRN, Constipation, Starting on Tue07/23/25 at 2223, Start bowel management regimen if patient has not had a bowel movement after 12 hours. sodium chloride 0.9 % flush 10 mL 10 mL, Intravenous, As Needed, Line Care, Starting on Tue07/23/25 at 1923 sodium chloride 0.9 % flush 10 mL 10 mL, Intravenous, Every 12 Hours Scheduled, First dose on Tue07/23/25 at 2240 Given 07/25/2025 9:42 AM EDT 10 mL Given 07/24/2025 8:33 PM EDT 10 mL Given 07/24/2025 9:21 AM EDT 10 mL sodium chloride 0.9 % infusion 75 mL/hr, Intravenous, Continuous, Starting on Tue07/24/25 at 0415, For 12 hours New Bag 07/24/2025 4:56 AM EDT 75 mL/hr 7 5 mL/hr traZODone (DESYREL) tablet 50 mg 50 mg, Oral, Once, On Tue07/24/25 at 2330, For 1 dose, Take with food. Caution: Look alike/sound alike drug alert Given 07/24/2025 11:02 PM EDT 50 mg vancomycin (VANCOCIN) 1,000 mg in sodium chloride 0.9 % 250 mL IVPB-VTB 1,000 mg (rounded from 944 mg = 20 mg/kg 47.2 kg), Intravenous, at 250 mL/hr, Administer over 60 Minutes, Once, On Tue07/23/25 at 2007, For 1 dose, Indications: Skin and Soft Tissue InfectionIndications:Skin and Soft Tissue Infection New Bag 07/23/2025 8:03 PM EDT 1,000 mg 250 mL/hr vancomycin (VANCOCIN) 1,000 mg in sodium chloride 0.9 % 250 mL IVPB-VTB 1,000 mg (rounded from 1,002.04 mg = 18.8 mg/kg 53.3 kg), Intravenous, at 250 mL/hr, Administer over 60 Minutes, Every 24 Hours, First dose on Tue07/24/25 at 2000, For 4 doses, Indications: Skin and Soft Tissue InfectionIndications:Skin and Soft Tissue Infection New Bag 07/24/2025 9:49 PM EDT 1,000 mg 250 mL/hr documented in this encounter Active and Recently Administered Medications Times are shown in EDT. Scheduled Medication Order 07/23/2025 07/24/2025 07/25/2025 apixaban (ELIQUIS) tablet 2.5 mg 2.5 mg, Oral, Every 12 Hours Scheduled, First dose on Tue07/24/25 at 0900, Tablet may be crushed and suspended in 60 mL of water or D5W and immediately delivered via NG tube. Avoid grapefruit juice., Indications: Atrial Fibrillation - requiring full anticoagulation, On hold since Tue07/23/2025 at 2307 until manually unheld 2307 (Held by provider - Provider: Amada Ibrahim MD - Reason: Other (Comment Required) - Comment: Patient on heparin gtt) 0900 (Dose Auto Held - Provider: Amada Ibrahim MD)2100 (Dose Auto Held - Provider: Amada Ibrahim MD) 0900 (Dose Auto Held - Provider: Amada Ibrahim MD)2031 (Unheld by provider - Provider: Automatic Discharge Provider) budesonide-formoterol (SYMBICORT) 160-4.5 MCG/ACT inhaler 2 puff 2 puff, Inhalation, 2 Times Daily - RT, First dose on Tue07/23/25 at 2355, Include Respiratory Treatment Education (SP) Shake well. Rinse mouth after use, do not swallow water. Send aerosols to pharmacy in ziplock bag for proper disposal. 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 0311 (Given - Provider: Nicole Mauricio RN)0920 (Given - Provider: Kate Gil, BRAVO)2032 (Given - Provider: Arely Uribe, BRAVO) 131 (Given - Provider: Nika Lynne RN - Comment: too sleepy this am to take meds) cefTRIAXone (ROCEPHIN) 1,000 mg in sodium chloride 0.9 % 100 mL MBP (COMPLETED) 1,000 mg, Intravenous, at 200 mL/hr, Administer over 30 Minutes, Once, On Tue07/23/25 at 2023, For 1 dose, LR should be paused and flushing of the line with NS is recommended prior to and after completion of ceftriaxone infusion due to incompatibility. Do not co-adminster with calcium-containing solutions. Caution: Look alike/sound alike drug alert, Indications: Skin and Soft Tissue Infection 2112 (New Bag - Provider: Tank Gill, BRAVO)2145 (Stopped - Provider: Tank Gill, BRAVO) cefTRIAXone (ROCEPHIN) 2,000 mg in sodium chloride 0.9 % 100 mL MBP 2,000 mg, Intravenous, at 200 mL/hr, Administer over 30 Minutes, Every 24 Hours, First dose on Tue07/24/25 at 2000, For 5 doses, LR should be paused and flushing of the line with NS is recommended prior to and after completion of ceftriaxone infusion due to incompatibility. Do not co-adminster with calcium-containing solutions. Caution: Look alike/sound alike drug alert, Indications: Skin and Soft Tissue Infection 2030 (New Bag - Provider: Arely Uribe RN) clopidogrel (PLAVIX) tablet 75 mg 75 mg, Oral, Daily, First dose on Tue07/24/25 at 0900 2307 (Held by provider - Provider: Amada Ibrahim MD - Reason: Other (Comment Required) - Comment: Patient on heparin gtt and may go for vascular surgery) 0900 (Dose Auto Held - Provider: Amada Ibrahim MD)1454 (Unheld by provider - Provider: Virgie Rodriguez APRN) 1315 (Given - Provider: Nika Lynne RN - Comment: too sleepy this am to take meds) digoxin (LANOXIN) tablet 125 mcg 125 mcg, Oral, Daily Digoxin, First dose on Tue07/24/25 at 1200, Check and record heart rate. 1230 (Given - Provider: Kate Gil RN) 1315 (Given - Provider: Nika Lynne RN) enoxaparin sodium (LOVENOX) syringe 50 mg 50 mg (rounded from 53.3 mg = 1 mg/kg 53.3 kg), Subcutaneous, Every 12 Hours, First dose on Tue07/25/25 at 1245, Give subcutaneous in abdomen only. Do not massage site after injection., Indications: DVT/PE (active thrombosis) 1300 (Given - Provider: Nika Lynne RN) famotidine (PEPCID) tablet 40 mg 40 mg, Oral, Daily, First dose on Tue07/24/25 at 0900 0920 (Given - Provider: Kate Gil RN) 1315 (Given - Provider: Nika Lynne RN) gabapentin (NEURONTIN) capsule 300 mg 300 mg, Oral, Every 12 Hours Scheduled, First dose on Tue07/23/25 at 2325, (SHIRA) 0311 (Given - Provider: Nicole Mauricio RN)09 (Given - Provider: Kate Gil, BRAVO)2032 (Given - Provider: Arely Uribe, BRAVO) 131 (Given - Provider: Nika Lynne RN) HYDROmorphone (DILAUDID) injection 0.5 mg (COMPLETED) 0.5 mg, Intravenous, Once, On Tue07/23/25 at 2019, For 1 dose, Based on patient request - if ordered for moderate or severe pain, provider allows for administration of a medication prescribed for a lower pain scale. If given for pain, use the following pain scale: Mild Pain = Pain Score of 1-3, CPOT 1-2 Moderate Pain = Pain Score of 4-6, CPOT 3-4 Severe Pain = Pain Score of 7-10, CPOT 5-8 2019 (Not Given - Provider: Tank Gill RN - Reason: Patient/family refused - Comment: pt states she wants to wait for pain meds when pain is unbearable)2110 (Given - Provider: Tank Gill RN) insulin regular (humuLIN R,novoLIN R) injection 2-7 Units 2-7 Units, Subcutaneous, Every 6 Hours Scheduled, First dose on Tue07/24/25 at 0000, Correction Insulin - Low Dose - Total Insulin Dose Less Than 40 units/day (Lean, Elderly or Renal Patients) Blood Glucose 150-199 mg/dL - 2 units Blood Glucose 200-249 mg/dL - 3 units Blood Glucose 250-299 mg/dL - 4 units Blood Glucose 300-349 mg/dL - 5 units Blood Glucose 350-400 mg/dL - 6 units Blood Glucose Greater Than 400 mg/dL - 7 units & Call Provider ([facility]) Caution: Look alike/sound alike drug alert([facility]) 0000 (Due)0810 (Not Given - Provider: Kate Gil RN - Reason: Order parameters not met)1158 (Not Given - Provider: Kate Gil RN - Reason: Order parameters not met)181 (Not Given - Provider: Kate Gil RN - Reason: Order parameters not met) 0015 (Not Given - Provider: Arely Uribe RN - Reason: Patient/family refused)0613 (Not Given - Provider: Arely Uribe RN - Reason: NPO)1238 (Not Given - Provider: Nika Lynne RN - Reason: Order parameters not met)1757 (Not Given - Provider: Nika Lynne RN - Reason: Order parameters not met) iopamidol (ISOVUE-370) 76 % injection 100 mL (COMPLETED) 100 mL, Intravenous, Once in Imaging, On Tue07/23/25 at 2335, For 1 dose 2319 (Given - Provider: Mariana Brand) magnesium sulfate 4g/100mL (PREMIX) infusion (COMPLETED) 4 g, Intravenous, Administer over 4 Hours, Once, On Tue07/24/25 at 0715, For 1 dose 0920 (New Bag - Provider: Kate Gil, BRAVO) pravastatin (PRAVACHOL) tablet 40 mg 40 mg, Oral, Nightly, First dose on Tue07/24/25 at 2100, Avoid grapefruit juice. 2032 (Given - Provider: Arely Uribe RN) sodium chloride 0.9 % flush 10 mL 10 mL, Intravenous, Every 12 Hours Scheduled, First dose on Tue07/23/25 at 2240 0355 (Canceled Entry - Provider: Nicole Mauricio RN)0921 (Given - Provider: Kate Gil, BRAVO)2032 (Given - Provider: Arely Uribe RN) 0942 (Given - Provider: Nika Lynne RN) traZODone (DESYREL) tablet 50 mg (COMPLETED) 50 mg, Oral, Once, On Tue07/24/25 at 2330, For 1 dose, Take with food. Caution: Look alike/sound alike drug alert 2301 (Given - Provider: Arely Uribe RN) vancomycin (VANCOCIN) 1,000 mg in sodium chloride 0.9 % 250 mL IVPB-VTB (COMPLETED) 1,000 mg (rounded from 944 mg = 20 mg/kg 47.2 kg), Intravenous, at 250 mL/hr, Administer over 60 Minutes, Once, On Tue07/23/25 at 2006, For 1 dose, Indications: Skin and Soft Tissue Infection 2002 (New Bag - Provider: aTnk Gill RN)2113 (Stopped - Provider: Tank Gill RN) vancomycin (VANCOCIN) 1,000 mg in sodium chloride 0.9 % 250 mL IVPB-VTB(Linked Group 1) 1,000 mg (rounded from 1,002.04 mg = 18.8 mg/kg 53.3 kg), Intravenous, at 250 mL/hr, Administer over 60 Minutes, Every 24 Hours, First dose on Tue07/24/25 at 2000, For 4 doses, Indications: Skin and Soft Tissue Infection 2148 (New Bag - Provider: Arely Uribe RN) Continuous Medication Order 07/23/2025 07/24/2025 07/25/2025 heparin 44938 units/250 mL (100 units/mL) in 0.45 % NaCl infusion (CANCELED) 19 Units/kg/hr 47.2 kg (8.968 mL/hr, rounded to 8.96 mL/hr), Intravenous, Titrated, Starting on Tue07/23/25 at 2210, Pharmacy dosing - VTE (PE/DVT) - Boluses (with initial bolus), Indications: DVT/PE (active thrombosis) 2200 (New Bag - Provider: Delbert Moyer RN)2210 (Due) 0635 (Rate Change (DUAL SIGN) - Provider: Nicole Mauricio RN)1703 (Stopped - Provider: Kate Gil RN - Comment: [Order ends at this time. Document the following action when infusion is complete: Stopped]) heparin 32758 units/250 mL (100 units/mL) in 0.45 % NaCl infusion 18.5 Units/kg/hr 47.2 kg (8.732 mL/hr, rounded to 8.73 mL/hr), Intravenous, Titrated, Starting on Tue07/24/25 at 1730, For 20 hours, Pharmacy dosing - VTE (PE/DVT) - Boluses (with initial bolus), Indications: DVT/PE (active thrombosis) 1703 (Rate Change (DUAL SIGN) - Provider: Kate Gil RN)2356 (Rate Change (DUAL SIGN) - Provider: Arely Uribe RN) 0103 (New Bag - Provider: Arely Uribe RN)0708 (Handoff - Provider: Arely Uribe RN - Comment: found running at 18.43, upped to 18.5)1259 (Canceled Entry - Provider: Nika Lynne RN)1303 (Stopped - Provider: Nika Lynne RN - Comment: [Order ends at this time. Document the following action when infusion is complete: Stopped]) sodium chloride 0.9 % infusion () 75 mL/hr, Intravenous, Continuous, Starting on Tue07/24/25 at 0415, For 12 hours 0456 (New Bag - Provider: Nicole Mauricio RN)1708 (Stopped - Provider: Kate Gil RN - Comment: [Order ends at this time. Document the following action when infusion is complete: Stopped]) PRN Medication Order 07/23/2025 07/24/2025 07/25/2025 acetaminophen (TYLENOL) 160 MG/5ML oral solution 650 mg(Linked Group 2) 650 mg, Oral, Every 4 Hours PRN, Mild Pain, Starting on Tue07/23/25 at 2222, If given for fever, use fever parameter: fever greater than 100.4 F Based on patient request - if ordered for moderate or severe pain, provider allows for administration of a medication prescribed for a lower pain scale. Do not exceed 4 grams of acetaminophen in a 24 hr period. Max dose of 2gm for AST/ALT greater than 120 units/L. If given for pain, use the following pain scale: Mild Pain = Pain Score of 1-3, CPOT 1-2 Moderate Pain = Pain Score of 4-6, CPOT 3-4 Severe Pain = Pain Score of 7-10, CPOT 5-8 0239 (Not Given: See Alt - Provider: Eli Martínez RN)1315 (Not Given: See Alt - Provider: Nika Lynne RN)1800 (Not Given: See Alt - Provider: Yoli Bang RN) acetaminophen (TYLENOL) suppository 650 mg(Linked Group 2) 650 mg, Rectal, Every 4 Hours PRN, Mild Pain, Starting on Tue07/23/25 at 2222, If given for fever, use fever parameter: fever greater than 100.4 F Based on patient request - if ordered for moderate or severe pain, provider allows for administration of a medication prescribed for a lower pain scale. Do not exceed 4 grams of acetaminophen in a 24 hr period. Max dose of 2gm for AST/ALT greater than 120 units/L. If given for pain, use the following pain scale: Mild Pain = Pain Score of 1-3, CPOT 1-2 Moderate Pain = Pain Score of 4-6, CPOT 3-4 Severe Pain = Pain Score of 7-10, CPOT 5-8 0239 (Not Given: See Alt - Provider: Eli Martínez RN)1315 (Not Given: See Alt - Provider: Nika Lynne RN)1800 (Not Given: See Alt - Provider: Yoli Bang RN) acetaminophen (TYLENOL) tablet 650 mg(Linked Group 2) 650 mg, Oral, Every 4 Hours PRN, Mild Pain, Starting on Tue07/23/25 at 2222, If given for fever, use fever parameter: fever greater than 100.4 F Based on patient request - if ordered for moderate or severe pain, provider allows for administration of a medication prescribed for a lower pain scale. Do not exceed 4 grams of acetaminophen in a 24 hr period. Max dose of 2gm for AST/ALT greater than 120 units/L. If given for pain, use the following pain scale: Mild Pain = Pain Score of 1-3, CPOT 1-2 Moderate Pain = Pain Score of 4-6, CPOT 3-4 Severe Pain = Pain Score of 7-10, CPOT 5-8 0239 (Given - Provider: Eli Martínez RN)1315 (Given - Provider: Nika Lynne RN)1800 (Given - Provider: Yoli Bang RN) ALPRAZolam (XANAX) tablet 0.5 mg (CANCELED) 0.5 mg, Oral, Every 8 Hours PRN, Anxiety, Agitation, Starting on Tue07/23/25 at 2223, For 5 days, (SHIRA) Caution: Look alike/sound alike drug alert. Avoid grapefruit juice 1831 (Given - Provider: Kate Gil RN) aluminum-magnesium hydroxide-simethicone (MAALOX MAX) 400-400-40 MG/5ML suspension 15 mL 15 mL, Oral, Every 6 Hours PRN, Heartburn, Starting on Tue07/23/25 at 2224, Maximum 60 mL in 24 hours. bisacodyl (DULCOLAX) EC tablet 5 mg(Linked Group 3) 5 mg, Oral, Daily PRN, Constipation, Use if polyethylene glycol is ineffective, Starting on Tue07/23/25 at 2223, Use if no bowel movement after 12 hours. Swallow whole. Do not crush, split, or chew tablet. bisacodyl (DULCOLAX) suppository 10 mg(Linked Group 3) 10 mg, Rectal, Daily PRN, Constipation, Use if bisacodyl oral is ineffective, Starting on Tue07/23/25 at 2223, Use if no bowel movement after 12 hours. Hold for diarrhea Calcium Replacement - Follow Nurse / BPA Driven Protocol Open Order & Select [facility] Electrolyte Replacement Protocol Algorithm to View Details dextrose (D50W) (25 g/50 mL) IV injection 25 g 25 g, Intravenous, Every 15 Minutes PRN, Low Blood Sugar, Blood Sugar Less Than 70, Starting on Tue07/23/25 at 2226, Blood sugar less than 70; patient has IV access - Unresponsive, NPO or Unable To Safely Swallow dextrose (GLUTOSE) oral gel 15 g 15 g, Oral, Every 15 Minutes PRN, Low Blood Sugar, Blood sugar less than 70, Starting on Tue07/23/25 at 2226, BS<70, Patient Alert, Is not NPO, Can safely swallow. glucagon (GLUCAGEN) injection 1 mg 1 mg, Intramuscular, Every 15 Minutes PRN, Low Blood Sugar, Blood Glucose Less Than 70, Starting on Tue07/23/25 at 2226, Blood Glucose Less Than 70 - Patient Without IV Access - Unresponsive, NPO or Unable To Safely Swallow Reconstitute powder for injection by adding 1 mL of document imaging specialist-supplied sterile diluent or sterile water for injection to a vial containing 1 mg of the drug, to provide solutions containing 1 mg/mL. Shake vial gently to dissolve. HYDROcodone-acetaminophen (NORCO) 5-325 MG per tablet 1 tablet (CANCELED) 1 tablet, Oral, Every 6 Hours PRN, Moderate Pain, Starting on Tue07/23/25 at 2222, For 5 days, Based on patient request - if ordered for moderate or severe pain, provider allows for administration of a medication prescribed for a lower pain scale. [SHIRA] Do not exceed 4 grams of acetaminophen in a 24 hr period. Max dose of 2gm for AST/ALT greater than 120 units/L If given for pain, use the following pain scale: Mild Pain = Pain Score of 1-3, CPOT 1-2 Moderate Pain = Pain Score of 4-6, CPOT 3-4 Severe Pain = Pain Score of 7-10, CPOT 5-8 0200 (Given - Provider: Tank Gill RN)2302 (Given - Provider: Arely Uribe, BRAVO) HYDROmorphone (DILAUDID) injection 0.25 mg(Linked Group 4) 0.25 mg, Intravenous, Every 4 Hours PRN, Severe Pain, Moderate Pain, Starting on Sadaf 07/25/25 at 0840, For 3 days, Based on patient request - if ordered for moderate or severe pain, provider allows for administration of a medication prescribed for a lower pain scale. If given for pain, use the following pain scale: Mild Pain = Pain Score of 1-3, CPOT 1-2 Moderate Pain = Pain Score of 4-6, CPOT 3-4 Severe Pain = Pain Score of 7-10, CPOT 5-8 HYDROmorphone (DILAUDID) injection 0.5 mg (CANCELED) 0.5 mg, Intravenous, Every 4 Hours PRN, Severe Pain, Moderate Pain, Starting on Tue07/23/25 at 2223, For 5 days, Based on patient request - if ordered for moderate or severe pain, provider allows for administration of a medication prescribed for a lower pain scale. If given for pain, use the following pain scale: Mild Pain = Pain Score of 1-3, CPOT 1-2 Moderate Pain = Pain Score of 4-6, CPOT 3-4 Severe Pain = Pain Score of 7-10, CPOT 5-8 0502 (Given - Provider: Nicole Mauricio RN) 0505 (Given - Provider: Arely Uribe RN) ipratropium-albuterol (DUO-NEB) nebulizer solution 3 mL 3 mL, Nebulization, Every 6 Hours PRN, Shortness of Air, Wheezing, Starting on Tue07/23/25 at 2307, Include Respiratory Treatment Education Magnesium Cardiology Dose Replacement - Follow Nurse / BPA Driven Protocol Open Order & Select [facility] Electrolyte Replacement Protocol Algorithm to View Details naloxone (NARCAN) injection 0.4 mg(Linked Group 4) 0.4 mg, Intravenous, Every 5 Minutes PRN, Respiratory Depression, Starting on Tue07/25/25 at 0840, If respiratory rate is less than 8 breaths/minute or patient is difficult to arouse stop any narcotics and contact physician. Administer slow IV push. Repeat as ordered until patient's respiratory rate is greater than 12 breaths/minute. nitroglycerin (NITROSTAT) SL tablet 0.4 mg 0.4 mg, Sublingual, Every 5 Minutes PRN, Chest Pain, Starting on Tue07/23/25 at 2217, If Pain Unrelieved After 3 Doses Notify MD May administer up to 3 doses per episode. Hold if SBP less than 100. ondansetron (ZOFRAN) injection 4 mg 4 mg, Intravenous, Every 6 Hours PRN, Nausea, Vomiting, Starting on Tue07/23/25 at 2224, If BOTH ondansetron (ZOFRAN) and promethazine (PHENERGAN) are ordered use ondansetron first and THEN promethazine IF ondansetron is ineffective. 2336 (Given - Provider: Delbert Moyer RN) Pharmacy to dose vancomycin Continuous PRN, Starting on Tue07/24/25 at 0321, Until Tue07/25/25 at 2032, Consult, Indications: Skin and Soft Tissue Infection Phosphorus Replacement - Follow Nurse / BPA Driven Protocol Open Order & Select [facility] Electrolyte Replacement Protocol Algorithm to View Details polyethylene glycol (MIRALAX) packet 17 g(Linked Group 3) 17 g, Oral, Daily PRN, Constipation, Use if senna-docusate is ineffective, Starting on Tue07/23/25 at 2223, Use if no bowel movement after 12 hours. Mix in 6-8 ounces of water. Use 4-8 ounces of water, tea, or juice for each 17 gram dose. Potassium Replacement - Follow Nurse / BPA Driven Protocol Open Order & Select S Electrolyte Replacement Protocol Algorithm to View Details QUEtiapine (SEROquel) tablet 12.5 mg 12.5 mg, Oral, Every 12 Hours PRN, agitation, sleep, Starting on Tue07/25/25 at 0839, Caution: Look alike/sound alike drug alert sennosides-docusate (PERICOLACE) 8.6-50 MG per tablet 2 tablet(Linked Group 3) 2 tablet, Oral, 2 Times Daily PRN, Constipation, Starting on Tue07/23/25 at 2223, Start bowel management regimen if patient has not had a bowel movement after 12 hours. sodium chloride 0.9 % flush 10 mL(Linked Group 5) 10 mL, Intravenous, As Needed, Line Care, Starting on Tue07/23/25 at 1923 Linked Groups Order Group 1: vancomycin (VANCOCIN) 1,000 mg in sodium chloride 0.9 % 250 mL IVPB-VTBJump to med 1,000 mg (rounded from 1,002.04 mg = 18.8 mg/kg 53.3 kg), Intravenous, at 250 mL/hr, Administer over 60 Minutes, Every 24 Hours, First dose on 07/24/25 at 2000, For 4 doses, Indications: Skin and Soft Tissue Infection And Vancomycin, Trough (CANCELED) Timed, On Sadaf 07/25/25 at 1800, For 1 occurrence, New collection, Release to patient: Routine Release, Specimen Types - Blood; Group 2: acetaminophen (TYLENOL) tablet 650 mgJump to med 650 mg, Oral, Every 4 Hours PRN, Mild Pain, Starting on Tue07/23/25 at 2222, If given for fever, use fever parameter: fever greater than 100.4 F Based on patient request - if ordered for moderate or severe pain, provider allows for administration of a medication prescribed for a lower pain scale. Do not exceed 4 grams of acetaminophen in a 24 hr period. Max dose of 2gm for AST/ALT greater than 120 units/L. If given for pain, use the following pain scale: Mild Pain = Pain Score of 1-3, CPOT 1-2 Moderate Pain = Pain Score of 4-6, CPOT 3-4 Severe Pain = Pain Score of 7-10, CPOT 5-8 Or acetaminophen (TYLENOL) 160 MG/5ML oral solution 650 mgJump to med 650 mg, Oral, Every 4 Hours PRN, Mild Pain, Starting on Tue07/23/25 at 2222, If given for fever, use fever parameter: fever greater than 100.4 F Based on patient request - if ordered for moderate or severe pain, provider allows for administration of a medication prescribed for a lower pain scale. Do not exceed 4 grams of acetaminophen in a 24 hr period. Max dose of 2gm for AST/ALT greater than 120 units/L. If given for pain, use the following pain scale: Mild Pain = Pain Score of 1-3, CPOT 1-2 Moderate Pain = Pain Score of 4-6, CPOT 3-4 Severe Pain = Pain Score of 7-10, CPOT 5-8 Or acetaminophen (TYLENOL) suppository 650 mgJump to med 650 mg, Rectal, Every 4 Hours PRN, Mild Pain, Starting on Tue07/23/25 at 2222, If given for fever, use fever parameter: fever greater than 100.4 F Based on patient request - if ordered for moderate or severe pain, provider allows for administration of a medication prescribed for a lower pain scale. Do not exceed 4 grams of acetaminophen in a 24 hr period. Max dose of 2gm for AST/ALT greater than 120 units/L. If given for pain, use the following pain scale: Mild Pain = Pain Score of 1-3, CPOT 1-2 Moderate Pain = Pain Score of 4-6, CPOT 3-4 Severe Pain = Pain Score of 7-10, CPOT 5-8 Group 3: sennosides-docusate (PERICOLACE) 8.6-50 MG per tablet 2 tabletJump to med 2 tablet, Oral, 2 Times Daily PRN, Constipation, Starting on Tue07/23/25 at 2223, Start bowel management regimen if patient has not had a bowel movement after 12 hours. And polyethylene glycol (MIRALAX) packet 17 gJump to med 17 g, Oral, Daily PRN, Constipation, Use if senna-docusate is ineffective, Starting on Tue07/23/25 at 2223, Use if no bowel movement after 12 hours. Mix in 6-8 ounces of water. Use 4-8 ounces of water, tea, or juice for each 17 gram dose. And bisacodyl (DULCOLAX) EC tablet 5 mgJump to med 5 mg, Oral, Daily PRN, Constipation, Use if polyethylene glycol is ineffective, Starting on Tue07/23/25 at 2223, Use if no bowel movement after 12 hours. Swallow whole. Do not crush, split, or chew tablet. And bisacodyl (DULCOLAX) suppository 10 mgJump to med 10 mg, Rectal, Daily PRN, Constipation, Use if bisacodyl oral is ineffective, Starting on 07/23/25 at 2223, Use if no bowel movement after 12 hours. Hold for diarrhea Group 4: HYDROmorphone (DILAUDID) injection 0.25 mgJump to med 0.25 mg, Intravenous, Every 4 Hours PRN, Severe Pain, Moderate Pain, Starting on Sadaf 07/25/25 at 0840, For 3 days, Based on patient request - if ordered for moderate or severe pain, provider allows for administration of a medication prescribed for a lower pain scale. If given for pain, use the following pain scale: Mild Pain = Pain Score of 1-3, CPOT 1-2 Moderate Pain = Pain Score of 4-6, CPOT 3-4 Severe Pain = Pain Score of 7-10, CPOT 5-8 And naloxone (NARCAN) injection 0.4 mgJump to med 0.4 mg, Intravenous, Every 5 Minutes PRN, Respiratory Depression, Starting on Sadaf 07/25/25 at 0840, If respiratory rate is less than 8 breaths/minute or patient is difficult to arouse stop any narcotics and contact physician. Administer slow IV push. Repeat as ordered until patient's respiratory rate is greater than 12 breaths/minute. 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
--- OUTSIDE RECORDS SUMMARY | 2025-07-31 13:54 | XMS_ITS | Encounter Summary ---
Author Organization [facility] Address [address] [place] [address] Care Team Providers Care Development Intern Name Role Phone Alexis Aannd MD Primary Care Provider [phone] Reason for Referral * Home Health (Routine) - Pending Review Specialty Diagnoses / Procedures Referred By Contact Referred To Contact Home Health Services Diagnoses Critical limb ischemia of left lower extremity Procedures NC OFFICE/OUTPATIENT NEW MODERATE MDM 45 MINUTES Neda Ocampo DO [address] [place] [address] Phone: tel: fax: Referral ID Status Reason Start Date Expiration Date Visits Requested Visits Authorized [id number] Pending Review Specialty Services Required 11/06/2026 999 999 * Consultation (Routine) - Authorized Specialty Diagnoses / Procedures Referred By Gumaro ferrera Referred To Contact Urology Diagnoses Acute urinary retention Procedures NC OFFICE/OUTPATIENT NEW MODERATE MDM 45 MINUTES Neda Ocampo DO [address] [place] [address] Phone: tel: fax: Marya Lugo APRN [address] [facility] [address] [place] [address] Phone: tel: fax: Referral ID Status Reason Start Date Expiration Date Visits Requested Visits Authorized [id number] Authorized Specialty Services Required 11/06/2026 1 1 * Home Health (Routine) - Pending Review Specialty Diagnoses / Procedures Referred By Contact Referred To Contact Home Health Services Diagnoses Critical limb ischemia of left lower extremity Procedures NC OFFICE/OUTPATIENT NEW MODERATE MDM 45 MINUTES Neda Ocampo DO [address] [place] [address] Phone: tel: fax: Referral ID Status Reason Start Date Expiration Date Visits Requested Visits Authorized [id number] Pending Review Specialty Services Required 11/06/2026 999 999 Reason for Visit * Reason Comments Wound Infection * Auth/Cert Specialty Diagnoses / Procedures Referred By Contac t Referred To Contact Diagnoses Claudication Critical limb ischemia of left lower extremity Referral ID Status Reason Start Date Expiration Date Visits Re quested Visits Authorized [id number] 1 1 Encounter Details Date Type Department Care Team (Late st Contact Info) Description 07/31/2025 2:54 PM EDT - 08/07/2025 3:06 PM EDT Hospital Encounter [address] [place] [phone] Gregg Munoz MD [address] [facility] [place] [address] Yoli Moreira MD [address] [facility] [address] [place] [phone] Sage Goodson MD [address] [place] [address] Neda Ocapmo DO [address] [place] [address] Critical limb ischemia of left lower extremity (Primary Dx); Claudication; Toe necrosis; Peripheral artery disease; Acute urinary retention Discharge Disposition: Home-Health Care [facility] Social History Tobacco Use Types Packs/Day Years Used Date Smoking Tobacco: Never Smokeless Tobacco: Never Alcohol Use Standard Drinks/Week Comments Never 0 (1 standard drink = 0.6 oz pur e alcohol) PRAPARE - Transportation Answer Date Re corded In the past 12 months, has l ack of transportation kept you from medical appointments or from getting medications? No 05/2025 In the past 12 months, has l ack of transportation kept you from meetings, work, or from getting things needed for daily living? No 07/24/2025 AUDIT-C Answer Date Recorded Q1: How often do you have a drink containing alcohol? Patient unable to answer 08/01/2025 Q2: How many drinks containi ng alcohol do you have on a typical day when you are drinking? Patient unable to answer Q3: How often do you have si x or more drinks on one occasion? Patient unable to answer 08/01/2025 Overall Financial Resource Strain (CARDIA) Answe r Date Recorded How hard is it for you to pa y for the very basics like food, housing, medical care, and heating? Patient unable to answer 08/01/2025 [facility] - Occupational Stress Questionnaire Answer Date Recorded Do you feel stress - tense, restless, nervous, or anxious, or unable to sleep at night because your mind is troubled all the time - these days? Patient unable to answer 08/01/2025 Exercise Vital Sign Answer Date Recorde d On average, how many days pe r week do you engage in moderate to strenuous exercise (like a brisk walk)? Patient unable to answer 08/01/2025 On average, how many minutes do you engage in exercise at this level? Patient unable to answer 08/01/2025 Hunger Vital Sign Answer Date Recorded Within the past 12 months, y ou worried that your food would run out before you got the money to buy more. Patient unable to answer 08/01/2025 Within the past 12 months, t he food you bought just didn't last and you didn't have money to get more. Patient unable to answer 08/01/2025 PRAPARE - Transportation Answer Date Re corded In the past 12 months, has l ack of transportation kept you from medical appointments or from getting medications? Patient unable to answer 08/01/2025 In the past 12 months, has l ack of transportation kept you from meetings, work, or from getting things needed for daily living? Patient unable to answer 08/01/2025 [facility] Utilities Answer Date Recorded In the past 12 months has th e For[employer], gas, oil, or water company threatened to shut off services in your home? Patient unable to answer 08/01/2025 Abuse Screen Answer Date Recorded Feels Unsafe at Home or Work/School unab le to answer (comment required) 08/01/2025 Feels Threatened by Someone unable to an swer (comment required) 08/01/2025 Does Anyone Try to Keep You From Having Contact with Others or Doing Things Outside Your Home? unable to answer (comment required) 08/01/2025 Physical Signs of Abuse Present patient unable t o answer 08/01/2025 Housing Stability Answer Date Recorded Current Living Arrangements home 07/17 Potentially Unsafe Housing Conditions patient un able to answer 08/04/2025 Family and Community Support Answer Brian e Recorded If for any reason you need h elp with day-to-day activities such as bathing, preparing meals, shopping, managing finances, etc., do you get the help you need? Patient unable to answer 08/01/2025 How often do you feel lonely or isolated from those around you? Patient unable to answer 08/01/2025 Employment Answer Date Recorded Do you want help finding or keeping work or a job? Patient unable to answer 08/01/2025 Disabilities Answer Date Recorded Difficulty Concentrating, Re membering or Making Decisions patient unable to answer 08/01/2025 Difficulty Managing Errands Independently patien t unable to answer 08/01/2025 Education Answer Date Recorded Do you want help with school or training? For example, starting or completing job training or getting a high school diploma, GED or equivalent Patient unable to answer 08/01/2025 Preferred Language patient unable to answer 07/17 PHQ-2 Answer Date Recorded Patient Health Questionnaire-2 Score 0 07/24/2025 Comments No Sex and Gender Information Value Date Recorded Sex Assigned at Not on file Legal Sex Female 4:32 PM EDT Gender Identity Not on file Sexual Orientation Not on file documented as of this encounter Last Filed Vital Signs Vital Sign Reading Time Taken Comments Blood Pressure 133/64 08/07/2025 11:37 AM EDT Pulse 71 08/07/2025 11:37 AM EDT Temperature 37 C (98.6 F) 08/07/2025 11:37 AM EDT Respiratory Rate 18 08/07/2025 11:37 AM EDT Oxygen Saturation 97% 08/07/2025 11:37 AM EDT Inhaled Oxygen Concentration - - Weight 62.2 kg (137 lb 2 oz) 08/04/2025 5:00 PM EDT Height 149.9 cm (4' 11.02 ) 08/04/2025 5:00 PM E DT Body Mass Index 27.68 08/04/2025 5:00 PM EDT documented in this encounter Functional Status * AUDIT-C Score Answer Date of Assessment Author -1 08/01/2025 4:20 PM EDT Tra Herrera RN * Question Answer Date of Assessment Author Q1: How often do you have a drink containing alcohol? Patient unable to answer 08/01/2025 4:20 PM EDT Marcela Herrera RN Q2: How many drinks containing alcohol do you have on a typical day when you are drinking? Patient unable to answer 08/01/2025 4:20 PM EDT Marcela Herrera RN Q3: How often do you have six or more drinks on one occasion? Patient unable to answer 08/01/2025 4:20 PM EDT Marcela Herrera RN * Calculated C-SSRS Risk Score (Lifetime/Recent) Answer Date of Assessment Author No Risk Indicated 07/31/2025 12:58 PM EDT Karis August RN * [place] Suicide Severity Rating Scale (Screener/Recent Self-Report) Question Answer Date of Assessment Author 1. Wish to be (Past 1 Month) No 12:58 PM EDT Karis August RN 2. Non-Specific Active Suici nilton Thoughts (Past 1 Month) No 07/31/2025 12:58 PM EDT Michelle August RN 6. Suicidal Behavior (Lifetime) No 12:58 PM EDT Karis August, RN documented as of this encounter Discharge Summaries * Neda Ocampo, DO - 08/07/2025 1:43 PM EDT Images from the original note were not included. 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 Hospital Course: Hattie Santos is a 85 y.o. female with PAD admitted on 07/31 with critical ischemia of the left lower extremity. Her past medical history is significant for type 2 diabetes mellitus, hypertension, and mild asthma. On 08/02 she underwent a left femoral to popliteal artery bypass as well as left popliteal endarterectomy and left great toe amputation. Transferred from ICU to telemetry 08/04. L critical limb ischemia and gangrene of toes with known occluded femoropopliteal stent -s/p Left femoral to popliteal artery bypass and left great toe amputation per Dr Zhao 08/02 -Continue home Eliquis and Plavix. Patient has had some oozing from groin site. Vascular has evaluated. Discussed with them today, recommends to continue Aquacel dressing, can send her home with someas well -Pain control -Wound care: apply xeroform, cover with dry dressing and change daily -PT/OT recommend SNF. Discussed with patient and daughter today, they prefer home, patient has plenty of family who will be with her and most are CNAs/RN's Urinary Retention -pepe removed 08/04, requiring I/O cath -Continue Flomax -Plan is home with Pepe catheter and will follow-up with Urology outpatient for ongoing mgmt (referral generated) Hemorrhoids -Can continue Anusol cream outpatient if needed ? A fib -pt on Digoxin and Eliquis outpatient, she is unsure if she has A fib, says she has heart issues Hx Asthma -continue Symbicort HTN -home meds HLD -statin Discharge Follow Up Recommendations for outpatient labs/diagnostics: -PCP 1 week -Vascular, 08/26/25 at 11:45 AM, ABIs at visit -Referral generated for Urology Day of Discharge HPI: Patient seen and examined. Daughter at bedside. Patient still unable to urinate on her own. Agreeable to home with pepe. Review of Systems Gen- No fevers, chills CV- No chest pain, palpitations Resp- No cough, dyspnea GI- No N/V/D, abd pain Vital Signs: Temp: [98.6 ??F (37 ??C)-99.5 ??F (37.5 ??C)] 98.6 ??F (37 ??C) Heart Rate: [66-84] 71 Resp: [16-18] 18 BP: (122-145)/(56-76) 133/64 Physical Exam: Constitutional: awake, alert, NAD, pleasant, smiling, up in chair HENT: NCAT, mucous membranes moist Respiratory: Clear to auscultation bilaterally, respiratory effort normal Cardiovascular: RRR, no murmurs, rubs, or gallops Gastrointestinal: Positive bowel sounds, soft, nontender, nondistended Musculoskeletal: L foot wrapped Psychiatric: Appropriate affect, cooperative Neurologic: No focal deficits, speech clear Skin: No rashes Pertinent and/or Most Recent Results LAB RESULTS: Lab 08/07/25 0648 08/06/25 1056 08/05/25 0432 08/04/25 0412 08/03/25 0434 08/02/25 0329 08/01/25 1944 08/01/25 1012 08/01/25 0723 07/31/25 2252 07/31/25 1615 07/31/25 1437 WBC 13.27* 10.16 10.01 10.43 11.48* -- -- -- 17.15* -- -- 11.90* HEMOGLOBIN 8.9* 9.2* 9.1* 8.7* 9.8* -- -- -- 10.5* -- -- 12.2 HEMATOCRIT 28.3* 29.6* 29.0* 27.6* 30.2* -- -- -- 33.2* -- -- 37.0 PLATELETS 475* 452* 443 405 360 -- -- -- 366 -- -- 404 NEUTROS ABS 8.41* -- 5.19 6.45 9.74* -- -- -- 12.68* -- -- 7.42* IMMATURE GRANS (ABS) 0.07* -- 0.05 0.07* 0.07* -- -- -- 0.07* -- -- 0.04 LYMPHS ABS 2.89 -- 3.14* 2.45 0.98 -- -- -- 2.45 -- -- 2.70 MONOS ABS 1.56* -- 1.43* 1.34* 0.68 -- -- -- 1.68* -- -- 1.12* EOS ABS 0.31 -- 0.17 0.10 0.00 -- -- -- 0.24 -- -- 0.58* MCV 90.7 91.9 90.6 89.6 88.0 -- -- -- 88.8 -- -- 87.9 SED RATE -- -- -- -- -- -- -- -- -- -- -- 73* CRP -- -- -- -- -- -- -- -- -- -- -- 2.78* PROTIME -- -- -- -- -- -- -- -- -- -- 14.2 -- APTT -- -- -- -- -- 57.1* 52.0* 57.4* -- 34.8* 35.2* -- Lab 08/06/25 1056 08/05/25 0432 08/04/25 0412 08/03/25 0434 08/01/25 0723 SODIUM 133* 134* 134* 129* 131* POTASSIUM 4.4 4.3 4.4 4.5 4.0 CHLORIDE 96* 100 99 96* 98 CO2 32.5* 27.6 27.2 23.6 24.7 ANION GAP 4.5* 6.4 7.8 9.4 8.3 BUN 7.9* 8.9 10.1 11.3 10.7 CREATININE 0.54* 0.48* 0.57 0.49* 0.49* EGFR 90.9 93.5 89.7 93.1 93.1 GLUCOSE 124* 96 90 117* 102* CALCIUM 8.5* 8.4* 8.2* 8.4* 8.5* MAGNESIUM -- -- 1.9 -- -- PHOSPHORUS -- -- 2.7 -- -- Lab 08/04/25 0412 07/31/25 1437 TOTAL PROTEIN 5.2* 6.8 ALBUMIN 2.8* 3.8 GLOBULIN 2.4 3.0 ALT (SGPT) 15 20 AST (SGOT) 27 30 BILIRUBIN 0.2 0.2 ALK PHOS 49 64 Lab 07/31/25 1615 PROTIME 14.2 INR 1.04 Lab 08/02/25 1330 ABO TYPING O RH TYPING Positive ANTIBODY SCREEN Negative Brief Urine Lab Results (Last result in the past 365 days) Color Clarity Blood Leuk Est Nitrite Protein CREAT Urine HCG 07/24/25 2203 Yellow Cloudy Negative Small (1+) Negative Negative Microbiology Results (last 10 days) No results found for the last 240 hours. Peripheral Block Result Date: 08/02/2025 Obed Tejada CRNA 08/02/2025 4:09 PM Peripheral Block Pre-sedation assessment completed: 08/02/2025 1:56 PM Patient reassessed immediately prior to procedure Patient location during procedure: pre-op Start time: 08/02/2025 1:56 PM Stop time: 08/02/2025 2:06 PM Reason for block: at surgeon's request and post-op pain management Performed by YENIFER/CAA: Obed Tejada CRNA Assisted by: Melissa Bingham, BRAVO Preanesthetic Checklist Completed: patient identified, IV checked, site marked, risks and benefits discussed, surgical consent, monitors and equipment checked, pre-op evaluation and timeout performed Prep: Sterile barriers:cap, gloves, mask and washed/disinfected hands Prep: ChloraPrep Patient monitoring: blood pressure monitoring, continuous pulse oximetry and EKG Procedure Sedation: yes Performed under: local infiltration Guidance:ultrasound guided ULTRASOUND INTERPRETATION. Using ultrasound guidance a 20 G gauge needle was placed in close proximity to the nerve, at which point, under ultrasound guidance anesthetic was injected in the area of the nerve and spread of the anesthesia was seen on ultrasound in close proximity thereto. There were no abnormalities seen on ultrasound;a digital image was taken; and the patient tolerated the procedure with no complications. Images:still images obtained, printed/placed on chart Laterality:left Block Type:popliteal Injection Technique :single-shot Needle Type:echogenic and short-bevel Needle Gauge:18 G Resistance on Injection: none Catheter Size:20 G Medications Used: bupivacaine PF (MARCAINE) 0.25 % injection - Injection 20 mL - 08/02/2025 1:57:00 PM dexamethasone sodium phosphate injection - Injection 2 mg - 08/02/2025 1:57:00PM fentaNYL citrate (PF) (SUBLIMAZE) injection - Intravenous 100 mcg - 08/02/2025 2:06:00 PM Medications Preservative Free Saline:10ml Post Assessment Injection Assessment: negative aspiration for heme, no paresthesia on injection and incremental injection Patient Tolerance:comfortable throughout block Complications:no Additional Notes SINGLE shot A high-frequency linear transducer, with sterile cover, was placed in the popliteal fossa to identify the popliteal artery and vein, Tibial nerve (TN) and Common Peroneal nerve (CP). The transducer was then moved in a cephalad fashion to observe theTN and CP nerve bifurcation to form the Sciatic Nerve. The insertion site was prepped and draped insterile fashion. Skin and cutaneous tissue was infiltrated with 2-5 ml of 1% Lidocaine. Using ultrasound-guidance, a 20-gauge B-Reid 4 Ultraplex 360 non-stimulating echogenic needle was then inserted and advanced in plane from lateral to medial. Preservative-free normal saline was utilized for hydro- dissection of tissue, advancement of Touhy, and to confirm final needle placement posterior to the nerves. Local anesthetic injection spread, in incremental 3-5 ml injections, to surround both nerve structures. Aspiration every 5 ml to prevent intravascular injection. Injection was completed with negative aspiration of blood and negative intravascular injection. Injection pressures were normalwith minimal resistance Performed by: Obed Tejada CRNA Results for orders placed during the hospital [...] and dorsalis pedis arteries were not well-visualized. Results for orders placed during the hospital [...] Plans Plan for Follow-up of Pending Labs/Results: Inbox Discharge Details Discharge Medications New Medications Instructions Start Date apixaban 2.5 MG tablet tablet Commonly known as: ELIQUIS 2.5 mg, Oral, 2 Times Daily, Was held since discharge on 07/25 due to plans for procedure; was givenenoxaparin bridge instead HYDROcodone-acetaminophen 10-325 MG per tablet Commonly known as: NORCO 1 tablet, Oral, Every 6 Hours PRN tamsulosin 0.4 MG capsule 24 hr capsule Commonly known as: FLOMAX 0.4 mg, Oral, Daily Start Date: August 08, 2025 Continue These Medications Instructions Start Date budesonide-formoterol 160-4.5 MCG/ACT inhaler Commonly known as: SYMBICORT 2 puffs, 2 Times Daily - RT carvedilol 6.25 MG tablet Commonly known as: COREG 6.25 mg, 2 Times Daily With Meals clopidogrel 75 MG tablet Commonly known as: PLAVIX 75 mg, Daily digoxin 125 MCG tablet Commonly known as: LANOXIN 125 mcg, Daily Digoxin gabapentin 300 MG capsule Commonly known as: NEURONTIN 600 mg, 2 Times Daily With Meals pravastatin 40 MG tablet Commonly known as: PRAVACHOL 40 mg, Nightly QUEtiapine 25 MG tablet Commonly known as: SEROquel Take 0.5 (one-half) tablet by mouth Every 12 (Twelve) Hours As Needed for agitation and/or sleep Stop These Medications enoxaparin sodium 60 MG/0.6ML solution prefilled syringe syringe Commonly known as: LOVENOX Allergies Allergen Reactions Codeine Mental Status Change Doxycycline Unknown - High Severity Morphine Mental Status Change Penicillins Unknown - High Severity Sulfur Unknown - High Severity Xanax [Alprazolam] Mental Status Change Discharge Disposition: Home or Self Care Diet: Hospital: Diet Order Procedures Diet: Regular/House; Fluid Consistency: Thin (IDDSI 0) Standing Status: Standing Number of Occurrences: 1 Diets:: Regular/House Fluid Consistency:: Thin (IDDSI 0) Activity: Restrictions or Other Recommendations: CODE STATUS: Code Status and Medical Interventions: CPR (Attempt to Resuscitate); Full Support Ordered at: 07/31/25 1538 Code Status (Patient has no pulse and is not breathing): CPR (Attempt to Resuscitate) Medical Interventions (Patient has pulse or is breathing): Full Support Level Of Support Discussed With: Patient No future appointments. Additional Instructions for the Follow-ups that You Need to Schedule Ambulatory Referral to Home Health As directed Face to Face Visit Date: 08/07/2025 Follow-up provider for Plan of Care?: I treated the patient in an acute care facility and will not continue treatment after discharge. Follow-up provider: ALEXIS ANAND [[id number]] Reason/Clinical Findings: Critical limb ischemia of left lower extremity Describe mobility limitations that make leaving home difficult: [place], impaired functional mobility, impaired physical mobility Nursing/Therapeutic Services Requested: [facility] Occupational Therapy [facility] orders: Medication education Cardiopulmonary assessments PT orders: Therapeutic exercise Gait Training Transfer training Strengthening Home safety assessment Weight Bearing Status: As Tolerated Occupational orders: Activities of daily living Energy conservation Strengthening Cognition Home safety assessment Discharge Follow-up with PCP As directed Currently Documented PCP: Alexis Anand MD PCP Follow Up Details: 1 week Discharge Follow-up with Specified Provider: Keep appt with Vascular Surgery: ABIs on 08/26/25 @ 11:45am As directed To: Keep appt with Vascular Surgery: ABIs on 08/26/25 @ 11:45am Neda Ocampo DO 08/07/25 Time Spent on Discharge: I spent 60 minutes on this discharge activity which included: [id number] with the patient, reviewing the data in the system, coordination of the care with the nursing staff as well as consultants, documentation, and entering orders. documented in this encounter Discharge Instructions * Discharge Instructions* Lucy Salgado RN - 08/07/2025 2:18 PM EDT * Attachments The following attachments cannot be sent through Care Everywhere. * Apixaban Tablets (Tunisian) * Trouble Peeing (Acute Urinary Retention) in Females: What to Know [id number] (Tunisian) * Poor Blood Flow (Peripheral Vascular Disease): What to Know (Tunisian) * Tamsulosin Capsules (Tunisian) * Hydrocodone; Acetaminophen Capsules or Tablets (Tunisian) * Surgery to Increase Blood Flow Down the Legs From a Blocked Artery (Femoropopliteal Bypass): What to Expect (Tunisian) * Surgery to Remove a Toe (Toe Amputation): What to Know After (Tunisian) documented in this encounter Medications at Time [...] procedure; was given enoxaparin bridge instead 5 gabapentin (NEURONTIN) 300 MG capsule Take 2 capsules by mouth 2 (Two) Times a Day With Meals. 5 HYDROcodone-acet aminophen (NORCO) 10-325 MG per tabletIndication s:Critical limb ischemia of left lower extremity Take 1 tablet by mouth Every 6 (Six) Hours As Needed for Moderate Pain. 12 tablet 08/07/2025 5 QUEtiapine (SEROquel) 25 MG tablet Take 0.5 (one-half) tablet by mouth Every 12 (Twelve) Hours As Needed for agitation and/or sleep 30 tablet 07/25/2025 3:01 PM EDT 07/25/2025 5 tamsulosin (FLOMAX) 0.4 MG capsule 24 hr capsule Take 1 capsule by mouth Daily. 30 capsule 08/08/2025 5 documented as of this encounter Progress Notes * Azul Adrian, LUIS - 08/06/2025 3:04 PM EDT Patient Name: Hattie Santos Date of : 1940 Admission date: 07/31/2025 Reason for Encounter: Follow-up/Progress Note and Pressure Injury Stg 2+ [facility] Clinical Nutrition Assessment Subjective Subjective Information 08/06/25 Patient screened per protocol for possible pressure injury. Patient with recent admission for worsening foot wound pain after angioplasty in Jun 2025. Currently admitted d/t increased leg pain in same leg and progressive discoloration of L great toe. At time of visit, pt resting in bed, dtr at beds rosina able to provide nutrition hx. Dtr notes patient does not eat much, but no significant change. Reports wt loss prior to last admission, unable to determine 2/2 limited wt hx. Trial Boost BID. Objective H&P and Current Problems H&P Past Medical History: Diagnosis Date Asthma Hypertension Peripheral vascular disease Past Surgical History: Procedure Laterality Date BELOW KNEE AMPUTATION Left 08/02/2025 Procedure: GREAT TOE AMPUTATION; Surgeon: Junior Zhao MD; Location: [facility]; Service:Vascular; Laterality: Left; FEMORAL POPLITEAL BYPASS Left 08/02/2025 Procedure: FEMORAL POPLITEAL BYPASS; Surgeon: Junior Zhao MD; Location: [facility] OR; Service: Vascular; Laterality: Left; Current Problems Admission Diagnosis: Claudication [I73.9] Critical limb ischemia of left lower extremity [I70.222] Problem List: Critical limb ischemia of left lower extremity PAD (peripheral artery disease) Type 2 diabetes mellitus with diabetic neuropathy, without long-term current use of insulin Primary hypertension Mild intermittent asthma without complication Presence of cardiac pacemaker Peripheral artery disease Claudication Toe necrosis Applicable Nutrition Hx 08/05/25 Skin: no PI; WOC following Anthropometrics Height: 149.9 cm (59.02 ) Weight: 62.2 kg (137 lb 2 oz) (08/04/25 1700) Weight Method: Bed scale BMI (Calculated): 27.7 Trending Weight Changes 08/06/25: No significant changes Weight History Wt Readings from Last 10 Encounters: 08/04/25 1700 62.2 kg (137 lb 2 oz) 07/31/25 1256 53.3 kg (117 lb 8.1 oz) 07/24/25 0251 53.3 kg (117 lb 8 oz) 07/23/25 1634 47.2 kg (104 lb) Labs Comment: Results from last 7 days Lab Units 08/06/25 1056 08/05/25 0432 08/04/25 0412 08/01/25 0723 07/31/25 1437 SODIUM mmol/L 133* 134* 134* < > 132* POTASSIUM mmol/L 4.4 4.3 4.4 < > 4.5 GLUCOSE mg/dL 124* 96 90 < > 108* BUN mg/dL 7.9* 8.9 10.1 < > 13.9 CREATININE mg/dL 0.54* 0.48* 0.57 < > 0.55* CALCIUM mg/dL 8.5* 8.4* 8.2* < > 9.1 PHOSPHORUS mg/dL -- -- 2.7 -- -- MAGNESIUM mg/dL -- -- 1.9 -- -- ALBUMIN g/dL -- -- 2.8* -- 3.8 CRP mg/dL -- -- -- -- 2.78* BILIRUBIN mg/dL -- -- 0.2 -- 0.2 ALK PHOS U/L -- -- 49 -- 64 AST (SGOT) U/L -- -- 27 -- 30 ALT (SGPT) U/L -- -- 15 -- 20 < > = values in this interval not displayed. Results from last 7 days Lab Units 08/06/25 1056 08/05/25 0432 08/04/25 0412 PLATELETS 10*3/mm3 452* 443 405 HEMOGLOBIN g/dL 9.2* 9.1* 8.7* HEMATOCRIT % 29.6* 29.0* 27.6* Lab Results Component Value Date HGBA1C 6.03 (H) 07/24/2025 Medications Scheduled Medications apixaban, 2.5 mg, Oral, Q12H budesonide-formoterol, 2 puff, Inhalation, BID - RT carvedilol, 6.25 mg, Oral, BID With Meals clopidogrel, 75 mg, Oral, Daily digoxin, 125 mcg, Oral, Daily gabapentin, 600 mg, Oral, BID With Meals Hydrocortisone (Perianal), , Rectal, BID mupirocin, 1 Application, Each Nare, BID pravastatin, 40 mg, Oral, Daily senna-docusate sodium, 2 tablet, Oral, BID sodium chloride, 10 mL, Intravenous, Q12H tamsulosin, 0.4 mg, Oral, Daily Infusions PRN Medications acetaminophen OR acetaminophen OR acetaminophen senna-docusate sodium AND polyethylene glycol AND bisacodyl AND bisacodyl Calcium Replacement - Follow Nurse / BPA Driven Protocol HYDROcodone-acetaminophen HYDROmorphone Magnesium Standard Dose Replacement - Follow Nurse / BPA Driven Protocol [DISCONTINUED] HYDROmorphone AND naloxone nitroglycerin nitroglycerin Phosphorus Replacement - Follow Nurse / BPA Driven Protocol Potassium Replacement - Follow Nurse / BPA Driven Protocol QUEtiapine sodium chloride sodium chloride Physical Findings Chewing/Swallowing No issues identified at this time Dentition Mouth/Teeth WDL: .WDL except, teeth Teeth Symptoms: dental appliance present Skin Wound 08/02/25 5601 medial coccyx Pressure Injury-Pressure Injury Stage: Other (Comment) (worseningITD) (08/05/25 1055) Bowel function Last Bowel Movement: 08/02/25 (08/06/25 3540) Stool Consistency: formed (08/02/25 0352) Edema Edema: leg, left, leg, right (08/06/25 0740) Leg, Left Edema: 1+ (Trace) (08/06/25 0740) Leg, Right Edema: 1+ (Trace) (08/06/25 0740) Intake & Output (last 3 days) 08/03 0708/04 0708/04 0708/05 0708/05 0708/06 0708/06 0708/07 07 P.O. 480 270 100 I.V. (mL/kg) 600 (9.6) IV Piggyback Total Intake(mL/kg) 480 (9) 870 (14) 100 (1.6) Urine (mL/kg/hr) 1140 (0.9) 1600 (1.1) 580 (0.4) Total Output 1140 1600 580 Net -660 -730 -480 Urine Unmeasured Occurrence 1 x Nutrition Focused Physical Exam 08/06/25: NFPE completed and not consistent with nutrition diagnosis of malnutrition at this time using AND/ASPEN criteria. 1 Current Nutrition Orders & Evaluation of Intake Oral Nutrition Food Allergies/Intolerances NKFA Current PO Diet Diet: Regular/House; Fluid Consistency: Thin (IDDSI 0) Oral Nutrition Supplement None Trending % PO Intake 08/06/25: 25% x 3 meals; 5 days 2 Assessment & Plan Nutrition Diagnosis and Goals Nutrition Diagnosis 1 Inadequate Oral Intake r/t AEB 25% x 3 meals Nutrition Diagnosis 2 None Goal(s) Increase PO Intake Nutrition Intervention and Prescription Intervention Start oral nutrition supplement, Obtain food preferences, Advised alternate menu selections, Advised available snacks, Continue to monitor for plan of care, and Continue with current interventions Diet Plan Continue current PO diet as ordered Supplement Prescription Boost BID Education Provided N/A 3 Monitoring/Evaluation Monitor/Evaluation Per Protocol, PO Intake, Oral Nutrition Supplement Intake, Symptoms, and POC/GOC RD Follow-Up Encounter 7 days and prn Electronically signed by: Azul Adrian RD 08/06/25 15:04 EDT * Virgie Rodriguez APRN - 08/06/2025 1:42 PM EDT Images from the original note were not included. VASCULAR SURGERY PROGRESS NOTE Subjective Resting in bed with eyes closed but awakens -- pain seems controlled Objective Last Recorded Vitals Blood pressure 153/73, pulse 76, temperature 98.6 ??F (37 ??C), temperature source Oral, resp. rate18, height 149.9 cm (59.02 ), weight 62.2 kg (137 lb 2 oz), SpO2 95%. Physical Exam Gen: eyes closed but awakens; elderly white female; resting in bed HEENT: [place] conjunctivae, MMM Lungs: Normal respiratory effort Ext: motor intact; left foot dressing removed; left groin and LLE medial aquacel dressings Neuro: Follows simple commands Psych: Apropriate mood, baseline memory loss Labs: Lab Results (last 24 hours) Procedure Component Value Units Date/Time Basic Metabolic Panel [[id number]] (Abnormal) Collected: 08/06/251055 Specimen: Blood Updated: 08/06/25 1215 Glucose 124 mg/dL BUN 7.9 mg/dL Creatinine 0.54 mg/dL Sodium 133 mmol/L Potassium 4.4 mmol/L Chloride 96 mmol/L CO2 32.5 mmol/L Calcium 8.5 mg/dL BUN/Creatinine Ratio 14.6 Anion Gap 4.5 mmol/L eGFR 90.9 mL/min/1.73 Narrative: GFR Categories [...] does not include race as a factor CBC (No Diff) [[id number]] (Abnormal) Collected: 08/06/25 105 Specimen: Blood Updated: 08/06/25 1120 WBC 10.16 10*3/mm3 RBC 3.22 10*6/mm3 Hemoglobin 9.2 g/dL Hematocrit 29.6 % MCV 91.9 fL MCH 28.6 pg MCHC 31.1 g/dL RDW 12.7 % RDW-SD 42.1 fl MPV 8.8 fL Platelets 452 10*3/mm3 Peripheral Block Obed Tejada CRNA 08/02/2025 4:09 PM Peripheral Block Pre-sedation assessment completed: 08/02/2025 1:56 PM Patient reassessed immediately prior to procedure Patient location during procedure: pre-op Start time: 08/02/2025 1:56 PM Stop time: 08/02/2025 2:06 PM Reason for block: at surgeon's request and post-op pain management Performed by YENIFER/CAA: Obed Tejada, YENIFER Assisted by: Melissa Bingham RN Preanesthetic Checklist Completed: patient identified, IV checked, site marked, risks and benefits discussed, surgical consent, monitors and equipment checked, pre-op evaluation and timeout performed Prep: Sterile barriers:cap, gloves, mask and washed/disinfected hands Prep: ChloraPrep Patient monitoring: blood pressure monitoring, continuous pulse oximetry and EKG Procedure Sedation: yes Performed under: local infiltration Guidance:ultrasound guided ULTRASOUND INTERPRETATION. Using ultrasound guidance a 20 G gauge needle was placed in close proximity to the nerve, at which point, under ultrasound guidance anesthetic was injected in the area of the nerve and spread of the anesthesia was seen on ultrasound in close proximity thereto. There were no abnormalities seen on ultrasound; a digital image was taken; and the patient tolerated the procedure with no complications. Images:still images obtained, printed/placed on chart Laterality:left Block Type:popliteal Injection Technique:single-shot Needle Type:echogenic and short-bevel Needle Gauge:18 G Resistance on Injection: none Catheter Size:20 G Medications Used: bupivacaine PF (MARCAINE) 0.25 % injection - Injection 20 mL - 08/02/2025 1:57:00 PM dexamethasone sodium phosphate injection - Injection 2 mg - 08/02/2025 1:57:00 PM fentaNYL citrate (PF) (SUBLIMAZE) injection - Intravenous 100 mcg - 08/02/2025 2:06:00 PM Medications Preservative Free Saline:10ml Post Assessment Injection Assessment: negative aspiration for heme, no paresthesia on injection and incremental injection Patient Tolerance:comfortable throughout block Complications:no Additional Notes SINGLE shot A high-frequency linear transducer, with sterile cover, was placed in the popliteal fossa to identify the popliteal artery and vein, Tibial nerve (TN) and Common Peroneal nerve (CP). The transducer was then moved in a cephalad fashion to observe the TN and CP nerve bifurcation to form the Sciatic Nerve. The insertion site was prepped and draped in sterile fashion. Skin and cutaneous tissue was infiltrated with 2-5 ml of 1% Lidocaine. Using ultrasound-guidance, a 20-gauge B-Reid 4 Ultraplex 360 non-stimulating echogenic needle was then inserted and advanced in plane from lateral to medial. Preservative-free normal saline was utilized for hydro-dissection of tissue, advancement of Touhy, and to confirm final needle placement posterior to the nerves. Local anesthetic injection spread, in incremental 3-5 ml injections, to surround both nerve structures. Aspiration every 5 ml to prevent intravascular injection. Injection was completed with negative aspiration of blood and negative intravascular injection. Injection pressures were normal with minimal resistance Performed by: Obed Tejada CRNA Assessment - Left great toe ulcer with worsening acute pain - Chronic peripheral vascular disease with critical limb ischemia - recent angioplasty in [place] 06/18/25 - multiple stents from iliac down to popliteal and including HAT FORMER - s/p Left femoral to below-knee popliteal artery bypass with propatent externally ringed graft; Left popliteal endarterectomy; Left great toe amputation on 08/02/[address] Zhao - Diabetes mellitus type 2 with neuropathy - Hypertension - Chronic AFIB on eliquis - Hx pacemaker placement - Chronic asthma - Hyperlipidemia Plan - CM for DC planning - continue eliquis - continue plavix - wound care - glycemic control - pain control PRN - PT / OT - LEFT great toe amp site -- apply xeroform, cover with dry dressing and change daily - follow-up outpatient in our office in 2 weeks with ABIs on 08/26/25 @ 11:45am - vascular will sign off -- please call for any further vascular concerns Discharge Planning: OK to DC from vascular standpoint * Neda Ocampo DO - 08/06/2025 12:51 PM EDT Images from the original note were not included. [facility] PROGRESS NOTE Patient Name: Hattie Santos : 1940 Date of Admission: 07/31/2025 Primary Care Physician: Alexis Anand MD Subjective Subjective CC: F/U critical limb ischemia HPI: Patient seen and examined. No family at bedside this morning. She looks much better today. Pain controlled. Has been able to pee a small amount on her own. I/O cath for 580cc. Plan is home at discharge. Objective Objective Vital Signs: Temp: [98.2 ??F (36.8 ??C)-99.8 ??F (37.7 ??C)] 98.6 ??F (37 ??C) Heart Rate: [65-87] 76 Resp: [16-18] 18 BP: (121-167)/(50-93) 153/73 Flow (L/min) (Oxygen Therapy): [2] 2 Physical Exam: Constitutional: awake, alert, NAD, pleasant, smiling HENT: NCAT, mucous membranes moist Respiratory: Clear to auscultation bilaterally, respiratory effort normal Cardiovascular: RRR, no murmurs, rubs, or gallops Gastrointestinal: Positive bowel sounds, soft, nontender, nondistended Musculoskeletal: L foot wrapped Psychiatric: Appropriate affect, cooperative Neurologic: No focal deficits, speech clear Skin: No rashes Results Reviewed: LAB RESULTS: Lab 08/06/25 1056 08/05/25 0432 08/04/25 0412 08/03/25 0434 08/02/25 0329 08/01/25 1944 08/01/25 1012 08/01/25 0723 07/31/25 2252 07/31/25 1615 07/31/25 1437 WBC 10.16 10.01 10.43 11.48* -- -- -- 17.15* -- -- 11.90* HEMOGLOBIN 9.2* 9.1* 8.7* 9.8* -- -- -- 10.5* -- -- 12.2 HEMATOCRIT 29.6* 29.0* 27.6* 30.2* -- -- -- 33.2* -- -- 37.0 PLATELETS 452* 443 405 360 -- -- -- 366 -- -- 404 NEUTROS ABS -- 5.19 6.45 9.74* -- -- -- 12.68* -- -- 7.42* IMMATURE GRANS (ABS) -- 0.05 0.07* 0.07* -- -- -- 0.07* -- -- 0.04 LYMPHS ABS -- 3.14* 2.45 0.98 -- -- -- 2.45 -- -- 2.70 MONOS ABS -- 1.43* 1.34* 0.68 -- -- -- 1.68* -- -- 1.12* EOS ABS -- 0.17 0.10 0.00 -- -- -- 0.24 -- -- 0.58* MCV 91.9 90.6 89.6 88.0 -- -- -- 88.8 -- -- 87.9 SED RATE -- -- -- -- -- -- -- -- -- -- 73* CRP -- -- -- -- -- -- -- -- -- -- 2.78* PROTIME -- -- -- -- -- -- -- -- -- 14.2 -- APTT -- -- -- -- 57.1* 52.0* 57.4* -- 34.8* 35.2* -- Lab 08/06/25 1056 08/05/25 0432 08/04/25 0412 08/03/25 0434 08/01/25 0723 SODIUM 133* 134* 134* 129* 131* POTASSIUM 4.4 4.3 4.4 4.5 4.0 CHLORIDE 96* 100 99 96* 98 CO2 32.5* 27.6 27.2 23.6 24.7 ANION GAP 4.5* 6.4 7.8 9.4 8.3 BUN 7.9* 8.9 10.1 11.3 10.7 CREATININE 0.54* 0.48* 0.57 0.49* 0.49* EGFR 90.9 93.5 89.7 93.1 93.1 GLUCOSE 124* 96 90 117* 102* CALCIUM 8.5* 8.4* 8.2* 8.4* 8.5* MAGNESIUM -- -- 1.9 -- -- PHOSPHORUS -- -- 2.7 -- -- Lab 08/04/25 0412 07/31/25 1437 TOTAL PROTEIN 5.2* 6.8 ALBUMIN 2.8* 3.8 GLOBULIN 2.4 3.0 ALT (SGPT) 15 20 AST (SGOT) 27 30 BILIRUBIN 0.2 0.2 ALK PHOS 49 64 Lab 07/31/25 1615 PROTIME 14.2 INR 1.04 Lab 08/02/25 1330 ABO TYPING O RH TYPING Positive ANTIBODY SCREEN Negative Brief Urine Lab Results (Last result in the past 365 days) Color Clarity Blood Leuk Est Nitrite Protein CREAT Urine HCG 07/24/25 2203 Yellow Cloudy Negative Small (1+) Negative Negative Microbiology Results Abnormal None No radiology results from the last 24 hrs I have personally reviewed the therapy plans: [] PT/OT/ ST Therapy Plans Current medications: Scheduled Meds:apixaban, 2.5 mg, Oral, Q12H budesonide-formoterol, 2 puff, Inhalation, BID - RT carvedilol, 6.25 mg, Oral, BID With Meals clopidogrel, 75 mg, Oral, Daily digoxin, 125 mcg, Oral, Daily gabapentin, 600 mg, Oral, BID With Meals Hydrocortisone (Perianal), , Rectal, BID mupirocin, 1 Application, Each Nare, BID pravastatin, 40 mg, Oral, Daily senna-docusate sodium, 2 tablet, Oral, BID sodium chloride, 10 mL, Intravenous, Q12H tamsulosin, 0.4 mg, Oral, Daily Continuous Infusions: PRN Meds:. acetaminophen OR acetaminophen OR acetaminophen senna-docusate sodium AND polyethylene glycol AND bisacodyl AND bisacodyl Calcium Replacement - Follow Nurse / BPA Driven Protocol HYDROcodone-acetaminophen HYDROmorphone Magnesium Standard Dose Replacement - Follow Nurse / BPA Driven Protocol [DISCONTINUED] HYDROmorphone AND naloxone nitroglycerin nitroglycerin Phosphorus Replacement - Follow Nurse / BPA Driven Protocol Potassium Replacement - Follow Nurse / BPA Driven Protocol QUEtiapine sodium chloride sodium chloride Assessment & Plan Assessment & Plan Active Hospital Problems Diagnosis POA Critical limb ischemia of left lower extremity [I70.222] Yes Claudication [I73.9] Yes 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 Brief Hospital Course to date: Hattie Santos is a 85 y.o. female with PAD admitted on 07/31 with critical ischemia of the left lower extremity. Her past medical history is significant for type 2 diabetes mellitus, hypertension, and mild asthma. On 08/02 she underwent a left femoral to popliteal artery bypass as well as left popliteal endarterectomy and left great toe amputation. Transferred from ICU to telemetry 08/04. This patient's problems and plans were partially entered by my partner and updated as appropriate by me 08/06/25. L critical limb ischemia and gangrene of toes with known occluded femoropopliteal stent -s/p Left femoral to popliteal artery bypass and left great toe amputation per Dr Zhao 08/02 -Continue home Eliquis and Plavix -Pain control -PT/OT Urinary Retention -pepe removed 08/04, requiring I/O cath but has been able to urinate a small amount -Up to BSC -Flomax added Hemorrhoids -Anusol cream ? A fib -pt on Digoxin and Eliquis outpatient, she is unsure if she has A fib, says she has heart issues Hx Asthma -continue Symbicort HTN -home meds HLD -statin Expected Discharge Location and Transportation: Home once urinating on her own Expected Discharge Expected Discharge Date: 08/09/2025; Expected Discharge Time: VTE Prophylaxis: Pharmacologic VTE prophylaxis orders are present. AM-PAC 6 Clicks Score (PT): 12 (08/06/25 3619) CODE STATUS: Code Status and Medical Interventions: CPR (Attempt to Resuscitate); Full Support Ordered at: 07/31/25 1949 Code Status (Patient has no pulse and is not breathing): CPR (Attempt to Resuscitate) Medical Interventions (Patient has pulse or is breathing): Full Support Level Of Support Discussed With: Patient Neda Ocampo DO 08/06/25 * Azul Adrian RD - 08/06/2025 12:09 PM EDT Nutrition Services Patient Name: Hattie Santos Date of : 1940 Admit Date: 07/31/2025 Patient screened for possible pressure injury. Chart reviewed. No pressure injury stage 2 or greater noted per documentation at this time. RDN following per protocol. Available via consult, thank you. Electronically signed by: Azul Adrian RD 08/06/25 12:09 EDT * Aicha Costa [facility] - 08/05/2025 2:11 PM EDT Pharmacy to Dose Heparin Infusion Note Hattie Santos is a 85 y.o. female receiving heparin infusion. Therapy for (VTE/Cardiac): Cardiac (AF) Patient Weight: 53.3kg Initial Bolus (Y/N): No Any Bolus (Y/N): Yes Signs or Symptoms of Bleeding: No; per rockboard lather or Other (Not VTE) Initial Bolus: 60 units/kg (Max 4,000 units) Initial rate: 12 units/kg/hr (Max 1,000 units/hr) Anti-Xa Bolus Dose Infusion Hold Time Infusion Rate Change (units/kg/hr) Repeat Anti-Xa < 0.11 50 units/kg (4000 units Max) None Increase by 3 units/kg/hr 6 hours 0.11- 0.19 25 units/kg (2000 units Max) None Increase by 2 units/kg/hr 6 hours 0.2 - 0.29 0 None Increase by 1 units/kg/hr 6 hours 0.3 - 0.5 0 None No Change 6 hours (after 2 consecutive levels in range check qAM) 0.51 - 0.6 0 None Decrease by 1 units/kg/hr 6 hours 0.61 - 0.8 0 30 minutes Decrease by 2 units/kg/hr 6 hours 0.81 - 1 0 60 minutes Decrease by 3 units/kg/hr 6 hours >1 0 Hold After Anti-Xa less than 0.5 decrease previous rate by 4 units/kg/hr Every 2 hours until Anti-Xa less than 0.5 then when infusion restarts in 6 hours Results from last 7 days Lab Units 08/05/25 0432 08/04/25 0412 08/03/25 0434 08/01/25 0723 07/31/25 1615 INR -- -- -- -- 1.04 HEMOGLOBIN g/dL 9.1* 8.7* 9.8* < > -- HEMATOCRIT % 29.0* 27.6* 30.2* < > -- PLATELETS 10*3/mm3 443 405 360 < > -- < > = values in this interval not displayed. Date Time Anti-Xa Current Rate (units/kg/hr) Bolus (units) Rate Change (units/kg/hr) New Rate (units/kg/hr) Repeat Anti-Xa Comments / Pump Check 08/04 1200 --- -- None +12 12 1800 D/w RN; plans are for AC for the next 24 hours with heparin dripto monitor stability, and then consider change to Eliquis when stable. Discussed with Dr. Benedict. 08/048 0.1 12 3000 +3 15 0500 Nurse confirmed pump 08/05 0432 0.24 15 -- +1 16 1300 Discussed w/ nurse 08/05 1227 0.1 16 3000 +3 19 1900 DW RN and pump checked w/ wt change to 62.2 kg Aicha Costa RPH 08/05/2025 14:11 EDT * Neda Ocampo DO - 08/05/2025 1:18 PM EDT Images from the original note were not included. [facility] PROGRESS NOTE Patient Name: Hattie Santos : 1940 Date of Admission: 07/31/2025 Primary Care Physician: Alexis Anand MD Subjective Subjective CC: F/U critical limb ischemia HPI: Patient seen and examined. Daughter at bedside. Having a lot of pain. Hasn't been able to void since pepe removed yesterday. Also complained of hemorrhoid pain to RN. Objective Objective Vital Signs: Temp: [98 ??F (36.7 ??C)-99.2 ??F (37.3 ??C)] 98 ??F (36.7 ??C) Heart Rate: [63-86] 73 Resp: [14-18] 16 BP: (113-163)/(50-82) 134/50 Physical Exam: Constitutional: awake, alert, crying in pain HENT: NCAT, mucous membranes moist Respiratory: Clear to auscultation bilaterally, respiratory effort normal Cardiovascular: RRR, no murmurs, rubs, or gallops Gastrointestinal: Positive bowel sounds, soft, nontender, nondistended Musculoskeletal: L foot wrapped Psychiatric: Appropriate affect, cooperative Neurologic: Situational confusion, speech clear Skin: No rashes Results Reviewed: LAB RESULTS: Lab 08/05/25 0432 08/04/25 0412 08/03/25 0434 08/02/25 0329 08/01/25 1944 08/01/25 1012 08/01/25 0723 07/31/25 2252 07/31/25 1615 07/31/25 1437 WBC 10.01 10.43 11.48* -- -- -- 17.15* -- -- 11.90* HEMOGLOBIN 9.1* 8.7* 9.8* -- -- -- 10.5* -- -- 12.2 HEMATOCRIT 29.0* 27.6* 30.2* -- -- -- 33.2* -- -- 37.0 PLATELETS 443 405 360 -- -- -- 366 -- -- 404 NEUTROS ABS 5.19 6.45 9.74* -- -- -- 12.68* -- -- 7.42* IMMATURE GRANS (ABS) 0.05 0.07* 0.07* -- -- -- 0.07* -- -- 0.04 LYMPHS ABS 3.14* 2.45 0.98 -- -- -- 2.45 -- -- 2.70 MONOS ABS 1.43* 1.34* 0.68 -- -- -- 1.68* -- -- 1.12* EOS ABS 0.17 0.10 0.00 -- -- -- 0.24 -- -- 0.58* MCV 90.6 89.6 88.0 -- -- -- 88.8 -- -- 87.9 SED RATE -- -- -- -- -- -- -- -- -- 73* CRP -- -- -- -- -- -- -- -- -- 2.78* PROTIME -- -- -- -- -- -- -- -- 14.2 -- APTT -- -- -- 57.1* 52.0* 57.4* -- 34.8* 35.2* -- Lab 08/05/25 0432 08/04/25 0412 08/03/25 0434 08/01/25 0723 07/31/25 1437 SODIUM 134* 134* 129* 131* 132* POTASSIUM 4.3 4.4 4.5 4.0 4.5 CHLORIDE 100 99 96* 98 97* CO2 27.6 27.2 23.6 24.7 24.3 ANION GAP 6.4 7.8 9.4 8.3 10.7 BUN 8.9 10.1 11.3 10.7 13.9 CREATININE 0.48* 0.57 0.49* 0.49* 0.55* EGFR 93.5 89.7 93.1 93.1 90.5 GLUCOSE 96 90 117* 102* 108* CALCIUM 8.4* 8.2* 8.4* 8.5* 9.1 MAGNESIUM -- 1.9 -- -- -- PHOSPHORUS -- 2.7 -- -- -- Lab 08/04/25 0412 07/31/25 1437 TOTAL PROTEIN 5.2* 6.8 ALBUMIN 2.8* 3.8 GLOBULIN 2.4 3.0 ALT (SGPT) 15 20 AST (SGOT) 27 30 BILIRUBIN 0.2 0.2 ALK PHOS 49 64 Lab 07/31/25 1615 PROTIME 14.2 INR 1.04 Lab 08/02/25 1330 ABO TYPING O RH TYPING Positive ANTIBODY SCREEN Negative Brief Urine Lab Results (Last result in the past 365 days) Color Clarity Blood Leuk Est Nitrite Protein CREAT Urine HCG 07/24/25 2203 Yellow Cloudy Negative Small (1+) Negative Negative Microbiology Results Abnormal None No radiology results from the last 24 hrs I have personally reviewed the therapy plans: [] PT/OT/ ST Therapy Plans Current medications: Scheduled Meds:budesonide-formoterol, 2 puff, Inhalation, BID - RT carvedilol, 6.25 mg, Oral, BID With Meals clopidogrel, 75 mg, Oral, Daily digoxin, 125 mcg, Oral, Daily gabapentin, 600 mg, Oral, BID With Meals Hydrocortisone (Perianal), , Rectal, BID mupirocin, 1 Application, Each Nare, BID pravastatin, 40 mg, Oral, Daily senna-docusate sodium, 2 tablet, Oral, BID sodium chloride, 10 mL, Intravenous, Q12H Continuous Infusions:heparin, 16 Units/kg/hr, Last Rate: 16 Units/kg/hr (08/05/25 0639) Pharmacy to Dose Heparin, PRN Meds:. acetaminophen OR acetaminophen OR acetaminophen senna-docusate sodium AND polyethylene glycol AND bisacodyl AND bisacodyl Calcium Replacement - Follow Nurse / BPA Driven Protocol HYDROcodone-acetaminophen HYDROmorphone Magnesium Standard Dose Replacement - Follow Nurse / BPA Driven Protocol [DISCONTINUED] HYDROmorphone AND naloxone nitroglycerin nitroglycerin Pharmacy to Dose Heparin Phosphorus Replacement - Follow Nurse / BPA Driven Protocol Potassium Replacement - Follow Nurse / BPA Driven Protocol QUEtiapine sodium chloride sodium chloride Assessment & Plan Assessment & Plan Active Hospital Problems Diagnosis POA Critical limb ischemia of left lower extremity [I70.222] Yes Claudication [I73.9] Yes 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 Brief Hospital Course to date: Hattie Santos is a 85 y.o. female with PAD admitted on 07/31 with critical ischemia of the left lower extremity. Her past medical history is significant for type 2 diabetes mellitus, hypertension, and mild asthma. On 08/02 she underwent a left femoral to popliteal artery bypass as well as left popliteal endarterectomy and left great toe amputation. Transferred from ICU to telemetry 08/04. This patient's problems and plans were partially entered by my partner and updated as appropriate by me 08/05/25. All problems are new to me today L critical limb ischemia and gangrene of toes with known occluded femoropopliteal stent -s/p Left femoral to popliteal artery bypass and left great toe amputation per Dr Zhao 08/02 -Discussed with Dr Benedict, can DC Heparin drip and continue home Eliquis and Plavix -Pain control, adjusted meds today -PT/OT Urinary Retention -pepe removed 08/04, unable to urinate since, requiring I/O cath -Up to BSC -Add Flomax -If not able to urinate tomorrow, will need to replace pepe Hemorrhoids -Add Anusol cream ? A fib -pt on Digoxin and Eliquis outpatient, will clarify with patient Hx Asthma -continue Symbicort HTN -home meds HLD -statin Expected Discharge Location and Transportation: Rehab Expected Discharge Expected Discharge Date: 08/09/2025; Expected Discharge Time: VTE Prophylaxis: Pharmacologic VTE prophylaxis orders are present. AM-PAC 6 Clicks Score (PT): 12 (08/05/25 0800) CODE STATUS: Code Status and Medical Interventions: CPR (Attempt to Resuscitate); Full Support Ordered at: 07/31/25 1538 Code Status (Patient has no pulse and is not breathing): CPR (Attempt to Resuscitate) Medical Interventions (Patient has pulse or is breathing): Full Support Level Of Support Discussed With: Patient Neda Ocampo DO 08/05/25 * Charisma Feliciano RD - 08/05/2025 10:56 AM EDT Nutrition Services Patient Name: Hattie Santos Date of : 1940 Admit Date: 07/31/2025 Pt screened per protocol for potential pressure injury. WOC consult pending. RD will complete nutrition assessment with identification of Stg II PI or greater. Will continue to monitor per protocol. Please consult with urgent nutrition related needs. Thanks. Electronically signed by: Charisma Feliciano RD 08/05/25 10:56 EDT * Virgie Rodriguez, PIPING ENGINEER - 08/05/2025 10:47 AM EDT Images from the original note were not included. VASCULAR SURGERY PROGRESS NOTE Subjective Resting in bed with eyes closed but awakens -- family at bedside reports difficulty with pain control over weekend but better this morning and resting Objective Last Recorded Vitals Blood pressure 134/50, pulse 73, temperature 98 ??F (36.7 ??C), temperature source Oral, resp. rate16, height 149.9 cm (59.02 ), weight 62.2 kg (137 lb 2 oz), SpO2 93%. Physical Exam Gen: eyes closed but awakens; elderly white female; resting in bed HEENT: [place] conjunctivae, MMM Lungs: Normal respiratory effort Ext: motor intact; left foot dressing; left groin and LLE medial aquacel dressings Neuro: Follows simple commands Psych: Apropriate mood, baseline memory loss Labs: Lab Results (last 24 hours) Procedure Component Value Units Date/Time Heparin Anti-Xa [[id number]] (Abnormal) Collected: 08/05/25 1227 Specimen: Blood Updated: 08/05/25 1339 Heparin Anti-Xa (UFH) 0.10 IU/ml Tissue Pathology Exam [[id number]] Collected: 08/02/25 1546 Specimen: Tissue from Leg, Left; Tissue from Toe, Left Updated: 08/05/25 0746 Basic Metabolic Panel [[id number]] (Abnormal) Collected: 08/05/25 0432 Specimen: Blood Updated: 08/05/25 0549 Glucose 96 mg/dL BUN 8.9 mg/dL Creatinine 0.48 mg/dL Sodium 134 mmol/L Potassium 4.3 mmol/L Chloride 100 mmol/L CO2 27.6 mmol/L Calcium 8.4 mg/dL BUN/Creatinine Ratio 18.5 Anion Gap 6.4 mmol/L eGFR 93.5 mL/min/1.73 Narrative: GFR Categories in Chronic Kidney [...] does not include race as a factor Heparin Anti-Xa [[id number]] (Abnormal) Collected: 08/05/25431 Specimen: Blood Updated: 08/05/25541 Heparin Anti-Xa (UFH) 0.24 IU/ml CBC & Differential [[id number]] (Abnormal) Collected: 08/05/25431 Specimen: Blood Updated: 08/05/25516 Narrative: The following orders were created for panel order CBC & Differential. Procedure Abnormality Status --------- ------ CBC Auto Differential[[id number]] AbnormalFinal result Please view results for these tests on the individual orders. CBC Auto Differential [[id number]] (Abnormal) Collected: 08/05/25431 Specimen: Blood Updated: 08/05/25516 WBC 10.01 10*3/mm3 RBC 3.20 10*6/mm3 Hemoglobin 9.1 g/dL Hematocrit 29.0 % MCV 90.6 fL MCH 28.4 pg MCHC 31.4 g/dL RDW 12.9 % RDW-SD 42.7 fl MPV 9.0 fL Platelets 443 10*3/mm3 Neutrophil % 51.8 % Lymphocyte % 31.4 % Monocyte % 14.3 % Eosinophil % 1.7 % Basophil % 0.3 % Immature Grans % 0.5 % Neutrophils, Absolute 5.19 10*3/mm3 Lymphocytes, Absolute 3.14 10*3/mm3 Monocytes, Absolute 1.43 10*3/mm3 Eosinophils, Absolute 0.17 10*3/mm3 Basophils, Absolute 0.03 10*3/mm3 Immature Grans, Absolute 0.05 10*3/mm3 nRBC 0.0 /100 WBC Heparin Anti-Xa [[id number]] (Abnormal) Collected: 08/04/252117 Specimen: Blood Updated: 08/04/252146 Heparin Anti-Xa (UFH) 0.10 IU/ml Peripheral Block Obed Tejada CRNA 08/02/2025 4:09 PM Peripheral Block Pre-sedation assessment completed: 08/02/2025 1:56 PM Patient reassessed immediately prior to procedure Patient location during procedure: pre-op Start time: 08/02/2025 1:56 PM Stop time: 08/02/2025 2:06 PM Reason for block: at surgeon's request and post-op pain management Performed by YENIFER/CAA: Obed Tejada CRNA Assisted by: Melissa Bingham RN Preanesthetic Checklist Completed: patient identified, IV checked, site marked, risks and benefits discussed, surgical consent, monitors and equipment checked, pre-op evaluation and timeout performed Prep: Sterile barriers:cap, gloves, mask and washed/disinfected hands Prep: ChloraPrep Patient monitoring: blood pressure monitoring, continuous pulse oximetry and EKG Procedure Sedation: yes Performed under: local infiltration Guidance:ultrasound guided ULTRASOUND INTERPRETATION. Using ultrasound guidance a 20 G gauge needle was placed in close proximity to the nerve, at which point, under ultrasound guidance anesthetic was injected in the area of the nerve and spread of the anesthesia was seen on ultrasound in close proximity thereto. There were no abnormalities seen on ultrasound; a digital image was taken; and the patient tolerated the procedure with no complications. Images:still images obtained, printed/placed on chart Laterality:left Block Type:popliteal Injection Technique:single-shot Needle Type:echogenic and short-bevel Needle Gauge:18 G Resistance on Injection: none Catheter Size:20 G Medications Used: bupivacaine PF (MARCAINE) 0.25 % injection - Injection 20 mL - 08/02/2025 1:57:00 PM dexamethasone sodium phosphate injection - Injection 2 mg - 08/02/2025 1:57:00 PM fentaNYL citrate (PF) (SUBLIMAZE) injection - Intravenous 100 mcg - 08/02/2025 2:06:00 PM Medications Preservative Free Saline:10ml Post Assessment Injection Assessment: negative aspiration for heme, no paresthesia on injection and incremental injection Patient Tolerance:comfortable throughout block Complications:no Additional Notes SINGLE shot A high-frequency linear transducer, with sterile cover, was placed in the popliteal fossa to identify the popliteal artery and vein, Tibial nerve (TN) and Common Peroneal nerve (CP). The transducer was then moved in a cephalad fashion to observe the TN and CP nerve bifurcation to form the Sciatic Nerve. The insertion site was prepped and draped in sterile fashion. Skin and cutaneous tissue was infiltrated with 2-5 ml of 1% Lidocaine. Using ultrasound-guidance, a 20-gauge B-Reid 4 Ultraplex 360 non-stimulating echogenic needle was then inserted and advanced in plane from lateral to medial. Preservative-free normal saline was utilized for hydro-dissection of tissue, advancement of Touhy, and to confirm final needle placement posterior to the nerves. Local anesthetic injection spread, in incremental 3-5 ml injections, to surround both nerve structures. Aspiration every 5 ml to prevent intravascular injection. Injection was completed with negative aspiration of blood and negative intravascular injection. Injection pressures were normal with minimal resistance Performed by: Obed Tejada CRNA Assessment - Left great toe ulcer with worsening acute pain - Chronic peripheral vascular disease with critical limb ischemia - recent angioplasty in [place] 06/18/25 - multiple stents from iliac down to popliteal and including HAT FORMER - s/p Left femoral to below-knee popliteal artery bypass with propatent externally ringed graft; Left popliteal endarterectomy; Left great toe amputation on 08/02/[address] Zhao - Diabetes mellitus type 2 with neuropathy - Hypertension - Chronic AFIB on eliquis - Hx pacemaker placement - Chronic asthma - Hyperlipidemia Plan - CM for DC planning - continue eliquis - continue plavix - wound care - glycemic control - pain control PRN - PT / OT - follow-up outpatient in our office in 2 weeks with ABIs - please call for any further vascular concerns Discharge Planning: Pending * Rocky Garcia MD - 08/04/2025 12:58 PM EDT [employer] NOTE Hospital Day: 4 Ms. Hattie Santos, 85 y.o. female is followed for: PAD, hypertension, and diabetes mellitus. Postoperative care. SUBJECTIVE Interval history: Pleasantly confused. Awake and alert. Fluid balance negative. Afebrile. Normal sinus rhythm. Familyat bedside. The patient's relevant past medical, surgical and social history were reviewed and updated in [facility] as appropriate. OBJECTIVE Vital Sign Min/Max for last 24 hours Temp Min: 97.5 ??F (36.4 ??C) Max: 98.3 ??F (36.8 ??C) BP Min: 102/65 Max: 147/61 Pulse Min: 64 Max: 84 Resp Min: 12 Max: 18 SpO2 Min: 94 % Max: 100 % No data recorded No data recorded Intake/Output Summary (Last 24 hours) at 08/04/2025 1258 Last data filed at 08/04/2025 1200 Gross per 24 hour Intake 1080 ml Output 1490 ml Net -410 ml Flowsheet Rows Flowsheet Row First Filed Value Admission Height 149.9 cm (59 ) Documented at 07/31/2025 1256 Admission Weight 53.3 kg (117 lb 8.1 oz) Documented at 07/31/2025 1256 07/31/25 1256 Weight: 53.3 kg (117 lb 8.1 oz) Objective: General Appearance: In no acute distress. Vital signs: (most recent): Blood pressure 120/48, pulse 68, temperature 98.2 ??F (36.8 ??C), temperature source Oral, resp. rate 16, height 149.9 cm (59 ), weight 53.3 kg (117 lb 8.1 oz), SpO2 97%. HEENT: Normal HEENT exam. Lungs: Normal effort and normal respiratory rate. Breath sounds clear to auscultation. She is not in respiratory distress. No rales, wheezes or rhonchi. Heart: Normal rate. Regular rhythm. S1 normal and S2 normal. No murmur, gallop or friction rub. Chest: Symmetric chest wall expansion. Abdomen: Abdomen is soft and non-distended. Bowel sounds are normal. There is no abdominal tenderness. There is no mass. There is no splenomegaly. There is no hepatomegaly. Extremities: There is no deformity or dependent edema. (Left great toe amputation Left thigh wound closed and dressed) Neurological: Patient is alert. Pupils: Pupils are equal, round, and reactive to light. Skin: Warm and dry. I reviewed the patient's new clinical results. I reviewed the patient's new imaging results/reports including actual images and agree with reports. No radiology results for the last day INFUSIONS heparin, 12 Units/kg/hr, Last Rate: 12 Units/kg/hr (08/04/25 1104) Pharmacy to Dose Heparin, Results from last 7 days Lab Units 08/04/252 08/03/254 08/01/25 0723 WBC 10*3/mm3 10.43 11.48* 17.15* HEMOGLOBIN g/dL 8.7* 9.8* 10.5* HEMATOCRIT % 27.6* 30.2* 33.2* PLATELETS 10*3/mm3 405 360 366 Results from last 7 days Lab Units 08/04/252 08/03/254 08/01/25 0723 07/31/25 1437 SODIUM mmol/L 134* 129* 131* 132* POTASSIUM mmol/L 4.4 4.5 4.0 4.5 CHLORIDE mmol/L 99 96* 98 97* CO2 mmol/L 27.2 23.6 24.7 24.3 BUN mg/dL 10.1 11.3 10.7 13.9 GLUCOSE mg/dL 90 117* 102* 108* CREATININE mg/dL 0.57 0.49* 0.49* 0.55* MAGNESIUM mg/dL 1.9 -- -- -- PHOSPHORUS mg/dL 2.7 -- -- -- CALCIUM mg/dL 8.2* 8.4* 8.5* 9.1 ALBUMIN g/dL 2.8* -- -- 3.8 Patient isn't on Tube Feeding /h Patient doesn't have any tube feeding modular orders Mechanical Ventilator: Settings: Observed: I reviewed the patient's medications. Assessment & Plan ASSESSMENT/PLAN Active Hospital Problems Diagnosis Critical limb ischemia of left lower extremity Claudication Toe necrosis Mild intermittent asthma without complication PAD (peripheral artery disease) Presence of cardiac pacemaker Primary hypertension Type 2 diabetes mellitus with diabetic neuropathy, without long-term current use of insulin Peripheral artery disease 85-year-old female with PAD admitted on 07/31 with critical ischemia of the left lower extremity. Her past medical history is significant for type 2 diabetes mellitus, hypertension, and mild asthma. On 08/02 she underwent a left femoral to popliteal artery bypass as well as left popliteal endarterectomy and left great toe amputation. Doing well this morning. Sodium up to 134 which is her recent baseline. Surgery has cleared her formobilization. Plan: Aspirin and Plavix Oral digoxin and Coreg Gabapentin Symbicort Holding Eliquis at this point. Defer decision on anticoagulation to her surgeon Okay to telemetry I discussed the patient's findings and my recommendations with patient, family, and nursing staff Plan of care and goals reviewed with multidisciplinary team at daily rounds. Any copied data from previous notes included in the (1) History of Present Illness, (2) Physical Examination and (3) Medical Decision Making and/or Assessment and Plan has been reviewed and is accurate as of 08/04/25 . Rocky Garcia MD Pulmonary and Critical Care Medicine 08/04/25 12:58 EDT * Jalil Benedict DO - 08/04/2025 9:13 AM EDT Patient resting in bed comfortably, no complaints, pain at amputation site today but pain medications improves the pain. She was able to get assistance to the chair yesterday. Left groin incision soft, no hematoma Left foot warm with wrap in place, motor and sensory intact Cap refill normal 85-year-old female with left critical limb ischemia and 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 08/02 Left femoral to popliteal artery bypass and left great toe amputation ([facility]) - continue aspirin and plavix - PT to ambulate and assess function/ placement recs * Rocky Garcia MD - 08/03/2025 12:36 PM EDT [employer] NOTE Hospital Day: 3 Ms. Hattie Santos, 85 y.o. female is followed for: PAD, hypertension, and diabetes mellitus. Postoperative care. SUBJECTIVE Interval history: Pleasantly confused. Awake and alert. Fluid balance negative. Afebrile. Family at bedside. The patient's relevant past medical, surgical and social history were reviewed and updated in Epic as appropriate. OBJECTIVE Vital Sign Min/Max for last 24 hours Temp Min: 96 ??F (35.6 ??C) Max: 97.8 ??F (36.6 ??C) BP Min: 94/44 Max: 187/78 Pulse Min: 60 Max: 85 Resp Min: 12 Max: 16 SpO2 Min: 93 % Max: 100 % No data recorded No data recorded Intake/Output Summary (Last 24 hours) at 08/03/2025 1236 Last data filed at 08/03/2025 0551 Gross per 24 hour Intake 1250 ml Output 1935 ml Net -685 ml Flowsheet Rows Flowsheet Row First Filed Value Admission Height 149.9 cm (59 ) Documented at 07/31/2025 1256 Admission Weight 53.3 kg (117 lb 8.1 oz) Documented at 07/31/2025 1256 07/31/25 1256 Weight: 53.3 kg (117 lb 8.1 oz) Objective: General Appearance: In no acute distress. Vital signs: (most recent): Blood pressure 103/56, pulse 75, temperature 97.4 ??F (36.3 ??C), temperature source Axillary, resp. rate 16, height 149.9 cm (59 ), weight 53.3 kg (117 lb 8.1 oz), SpO2 94%. HEENT: Normal HEENT exam. Lungs: Normal effort and normal respiratory rate. Breath sounds clear to auscultation. She is not in respiratory distress. No rales, wheezes or rhonchi. Heart: Normal rate. Regular rhythm. S1 normal and S2 normal. No murmur, gallop or friction rub. Chest: Symmetric chest wall expansion. Abdomen: Abdomen is soft and non-distended. Bowel sounds are normal. There is no abdominal tenderness. There is no mass. There is no splenomegaly. There is no hepatomegaly. Extremities: There is no deformity or dependent edema. (Left great toe amputation Left thigh wound closed and dressed) Neurological: Patient is alert. Pupils: Pupils are equal, round, and reactive to light. Skin: Warm and dry. I reviewed the patient's new clinical results. I reviewed the patient's new imaging results/reports including actual images and agree with reports. No radiology results for the last day INFUSIONS lactated ringers, 9 mL/hr, Last Rate: 9 mL/hr (08/02/25 1421) lactated ringers, 9 mL/hr Results from last 7 days Lab Units 08/03/25 0434 08/01/25 0723 07/31/25 1437 WBC 10*3/mm3 11.48* 17.15* 11.90* HEMOGLOBIN g/dL 9.8* 10.5* 12.2 HEMATOCRIT % 30.2* 33.2* 37.0 PLATELETS 10*3/mm3 360 366 404 Results from last 7 days Lab Units 08/03/25 0434 08/01/25 0723 07/31/25 1437 SODIUM mmol/L 129* 131* 132* POTASSIUM mmol/L 4.5 4.0 4.5 CHLORIDE mmol/L 96* 98 97* CO2 mmol/L 23.6 24.7 24.3 BUN mg/dL 11.3 10.7 13.9 GLUCOSE mg/dL 117* 102* 108* CREATININE mg/dL 0.49* 0.49* 0.55* CALCIUM mg/dL 8.4* 8.5* 9.1 ALBUMIN g/dL -- -- 3.8 Patient isn't on Tube Feeding /h Patient doesn't have any tube feeding modular orders Mechanical Ventilator: Settings: Observed: I reviewed the patient's medications. Assessment & Plan ASSESSMENT/PLAN Active Hospital Problems Diagnosis Critical limb ischemia of left lower extremity Claudication Toe necrosis Mild intermittent asthma without complication PAD (peripheral artery disease) Presence of cardiac pacemaker Primary hypertension Type 2 diabetes mellitus with diabetic neuropathy, without long-term current use of insulin Peripheral artery disease 85-year-old female with PAD admitted on 07/31 with critical ischemia of the left lower extremity. Her past medical history is significant for type 2 diabetes mellitus, hypertension, and mild asthma. On 08/02 she underwent a left femoral to popliteal artery bypass as well as left popliteal endarterectomy and left great toe amputation. Seen in ICU currently on room air and in normal sinus rhythm. Mild delirium but no agitation. Labs reveal mild anemia as well as hyponatremia with sodium of 129 though this was 134 11 days ago. Plan: Aspirin and Plavix Oral digoxin and Coreg Gabapentin Symbicort Holding Eliquis at this point Monitor sodium and hemoglobin Surgery has cleared her for ambulation I discussed the patient's findings and my recommendations with patient, family, and nursing staff Plan of care and goals reviewed with multidisciplinary team at daily rounds. Any copied data from previous notes included in the (1) History of Present Illness, (2) Physical Examination and (3) Medical Decision Making and/or Assessment and Plan has been reviewed and is accurate as of 08/03/25 . Rocky Garcia MD Pulmonary and Critical Care Medicine 08/03/25 12:36 EDT * Jalil Benedict DO - 08/03/2025 11:58 AM EDT Patient resting in bed comfortably, no complaints, foot feels much improved Left groin incision soft, no hematoma Left foot warm with wrap in place, motor and sensory intact 85-year-old female with left critical limb ischemia and 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 08/02 Left femoral to popliteal artery bypass and left great toe amputation ([facility]) - continue aspirin and plavix - Remove Pepe catheter if able to use commode - PT to ambulate and assess function/ placement recs * Yoli Moreira MD - 08/01/2025 7:16 AM EDT Images from the original note were not included. [facility] PROGRESS NOTE Patient Name: Hattie Santos : 1940 Date of Admission: 07/31/2025 Primary Care Physician: Alexis Anand MD Subjective Subjective CC: F/U LLE ischemia HPI: Still having some pain today. Objective Objective Vital Signs: Temp: [98 ??F (36.7 ??C)-100.2 ??F (37.9 ??C)] 100.2 ??F (37.9 ??C) Heart Rate: [70-96] 72 Resp: [16-18] 18 BP: (113-198)/(58-92) 113/58 Physical Exam: Constitutional: No acute distress, awake, alert, sitting up in bed HENT: NCAT, mucous membranes moist Respiratory: Respiratory effort normal Cardiovascular: RRR Musculoskeletal: Left great toe is black Psychiatric: Appropriate affect, cooperative Neurologic: Speech clear Results Reviewed: LAB RESULTS: Lab 07/31/25 2252 07/31/25 1615 07/31/25 1437 07/25/25 1717 WBC -- -- 11.90* 7.91 HEMOGLOBIN -- -- 12.2 11.1* HEMATOCRIT -- -- 37.0 34.9 PLATELETS -- -- 404 285 NEUTROS ABS -- -- 7.42* 4.37 IMMATURE GRANS (ABS) -- -- 0.04 0.02 LYMPHS ABS -- -- 2.70 2.18 MONOS ABS -- -- 1.12* 0.71 EOS ABS -- -- 0.58* 0.58* MCV -- -- 87.9 89.7 SED RATE -- -- 73* -- CRP -- -- 2.78* -- PROTIME -- 14.2 -- -- APTT 34.8* 35.2* -- 46.0* Lab 08/01/25 0723 07/31/25 1437 SODIUM 131* 132* POTASSIUM 4.0 4.5 CHLORIDE 98 97* CO2 24.7 24.3 ANION GAP 8.3 10.7 BUN 10.7 13.9 CREATININE 0.49* 0.55* EGFR 93.1 90.5 GLUCOSE 102* 108* CALCIUM 8.5* 9.1 Lab 07/31/25 1437 TOTAL PROTEIN 6.8 ALBUMIN 3.8 GLOBULIN 3.0 ALT (SGPT) 20 AST (SGOT) 30 BILIRUBIN 0.2 ALK PHOS 64 Lab 07/31/25 1615 PROTIME 14.2 INR 1.04 Brief Urine Lab Results (Last result in the past 365 days) Color Clarity Blood Leuk Est Nitrite Protein CREAT Urine HCG 07/24/25 2203 Yellow Cloudy Negative Small (1+) Negative Negative Microbiology Results Abnormal None No radiology results from the last 24 hrs I have personally reviewed the therapy plans: [] PT/OT/ ST Therapy Plans Current medications: Scheduled Meds:[Held by provider] apixaban, 2.5 mg, Oral, BID budesonide-formoterol, 2 puff, Inhalation, BID - RT carvedilol, 6.25 mg, Oral, BID With Meals clopidogrel, 75 mg, Oral, Daily digoxin, 125 mcg, Oral, Daily gabapentin, 600 mg, Oral, BID With Meals pravastatin, 40 mg, Oral, Daily senna-docusate sodium, 2 tablet, Oral, BID sodium chloride, 10 mL, Intravenous, Q12H Continuous Infusions:heparin, 15 Units/kg/hr, Last Rate: 15 Units/kg/hr (08/01/25 0114) Pharmacy to Dose Heparin, PRN Meds:. acetaminophen OR acetaminophen OR acetaminophen senna-docusate sodium AND polyethylene glycol AND bisacodyl AND bisacodyl Calcium Replacement - Follow Nurse / BPA Driven Protocol HYDROmorphone AND naloxone Magnesium Standard Dose Replacement - Follow Nurse / BPA Driven Protocol nitroglycerin oxyCODONE Pharmacy to Dose Heparin Phosphorus Replacement - Follow Nurse / BPA Driven Protocol Potassium Replacement - Follow Nurse / BPA Driven Protocol QUEtiapine sodium chloride sodium chloride Assessment & Plan Assessment & Plan Active Hospital Problems Diagnosis POA Critical limb ischemia of left lower extremity [I70.222] Yes Claudication [I73.9] Yes Mild intermittent asthma without complication [J45.20] Yes PAD (peripheral artery disease) [I73.9] Yes Presence of cardiac pacemaker [Z95.0] Yes Primary hypertension [I10] Yes Type 2 diabetes mellitus with diabetic neuropathy, without long-term current use of insulin [E11.40] Yes Resolved Hospital Problems No resolved problems to display. Brief Hospital Course to date: Hattie Santos is a 85 y.o. female with peripheral vascular disease and critical ischemia of the LLE currently scheduled for revascularization surgery 08/02. She was recently admitted and discharged on lovenox and plavix as surgery couldn't be scheduled until then. Since discharge she had progressive discoloration of the left great toe and increased pain in that leg, impairing her ability to bearweight. She presented to the ED and vascular surgery was contacted, recommending admission for paincontrol until surgery. This patient's problems and plans were partially entered by my partner and updated as appropriate by me 08/01/25. PAD with critical limb ischemia LLE - Vascular surgery consult - Surgery planned for Tuesday to reroute blood vessels and potentially remove the affected toe. - Pain management with acetaminophen, PRN hydrocodone, PRN dilaudid - Heparin drip - Continue statin and plavix Constipation - S/P suppository. - Scheduled bowel regimen Hospital delirium - History of hospital delirium, previously managed with seroquel - Continue PRN seroquel Expected Discharge Location and Transportation: TBD Expected Discharge Expected Discharge Date: 08/09/2025; Expected Discharge Time: VTE Prophylaxis: Pharmacologic VTE prophylaxis orders are present. AM-PAC 6 Clicks Score (PT): 11 (07/31/252052) CODE STATUS: Code Status and Medical Interventions: CPR (Attempt to Resuscitate); Full Support Ordered at: 07/31/25 3779 Code Status (Patient has no pulse and is not breathing): CPR (Attempt to Resuscitate) Medical Interventions (Patient has pulse or is breathing): Full Support Level Of Support Discussed With: Patient Yoli Moreira MD 08/01/25 * Bear Quijano, [facility] - 07/31/2025 4:42 PM EDT Pharmacy to Dose Heparin Infusion Note Hattie Santos is a 85 y.o. female receiving heparin infusion. Therapy for (VTE/Cardiac): Severe Ischemic PAD Patient Weight: 53.3 kg Initial Bolus (Y/N): No Any Bolus (Y/N): Yes Signs or Symptoms of Bleeding: No Cardiac or Other (Not VTE) Initial rate: 12 units/kg/hr (Max 1,000 units/hr) aPTT Bolus Dose Infusion Hold Time Infusion Rate Change (units/kg/hr) Repeat aPTT <45 50 units/kg (4000 units Max) None Increase by 3 units/kg/hr 6 hours 45 - 52 25 units/kg (2000 units Max) None Increase by 2 units/kg/hr 6 hours 53 - 59 0 None Increase by 1 units/kg/hr 6 hours 60 - 75 0 None No Change 6 hours (after 2 consecutive levels in range check qAM) 76 - 83 0 None Decrease by 1 units/kg/hr 6 hours 84 - 98 0 30 minutes Decrease by 2 units/kg/hr 6 hours 99 - 113 0 60 minutes Decrease by 3 units/kg/hr 6 hours >113 0 Hold After aPTT less than 75 decrease previous rate by 4 units/kg/hr Every 2 hours until aPTT less than 75 then when infusion restarts in 6 hours Results from last 7 days Lab Units 07/31/25 1615 07/31/25 1437 07/25/25 1717 INR 1.04 -- -- HEMOGLOBIN g/dL -- 12.2 11.1* HEMATOCRIT % -- 37.0 34.9 PLATELETS 10*3/mm3 -- 404 285 Date Time aPTT Current Rate (units/kg/hr) Bolus (units) Rate Change (units/kg/hr) New Rate (units/kg/hr) Repeat aPTT Comments / Pump Check 07/31 1700 35.2 -- NONE -- 0 Discussed with RN, verified pump. Bear Tobar RPH 07/31/2025 16:36 EDT documented in this encounter H&P Notes * Yoli Moreira MD - 07/31/2025 3:00 PM EDT Images from the original note were not included. [facility] HISTORY AND PHYSICAL Patient Name: Hattie Santos : 1940 Primary Care Physician: Alexis Anand MD Date of admission: 07/31/2025 Subjective Subjective Chief Complaint: Left foot pain HPI: Hattie Santos is a 85 y.o. female with peripheral vascular disease and critical ischemia of the LLE currently scheduled for revascularization surgery 08/02. She was recently admitted and discharged on lovenox and plavix as surgery couldn't be scheduled until then. Since discharge she has had progressive discoloration of the left great toe and increased pain in that leg, impairing her ability to bear weight. She presented to the ED and vascular surgery was contacted, recommending admission for pain control until surgery. Additionally, she has had issues with constipation at home and a small area of skin breakdown on her bottom. She denies any other acute complaints. Personal History Past Medical History: Diagnosis Date Asthma Hypertension Peripheral vascular disease History reviewed. No pertinent surgical history. Family History: family history is not on file. Social History: reports that she has never smoked. She has never used smokeless tobacco. She reports that she does not drink alcohol and does not use drugs. Social History Social History Narrative Not on file Medications: Available home medication information reviewed. QUEtiapine, apixaban, budesonide-formoterol, carvedilol, clopidogrel, digoxin, enoxaparin sodium, gabapentin, and pravastatin Allergies[1] Objective Objective Vital Signs: Temp: [98.1 ??F (36.7 ??C)] 98.1 ??F (36.7 ??C) Heart Rate: [80-82] 80 Resp: [16] 16 BP: (129-150)/(67-81) 150/67 Physical Exam Constitutional: No acute distress, awake, alert, laying in bed HENT: NCAT, mucous membranes moist Respiratory: Clear to auscultation bilaterally, respiratory effort normal Cardiovascular: RRR, no murmurs Gastrointestinal: Positive bowel sounds, soft, nontender, nondistended Musculoskeletal: No bilateral ankle edema Psychiatric: Appropriate affect, cooperative Neurologic: Speech clear and fluent Skin: [place], slightly irritated area on the coccyx. Extremities: Left great toe is black and bluish discoloration of the other toes on the left foot. There is some blistering of the skin on the LLE without any erythema Result Review: I have personally reviewed the results from the time of this admission to 07/31/2025 15:59 EDT and agree with these findings: [x] Laboratory list / accordion [] Microbiology [] Radiology [] EKG/Telemetry [] Cardiology/Vascular [] Pathology [x] Old records [] Other: Most notable findings include: LAB RESULTS: Lab 07/31/25 14307/25/25171607/24/256 WBC 11.90* 7.91 -- HEMOGLOBIN 12.2 11.1* -- HEMATOCRIT 37.0 34.9 -- PLATELETS 404 285 -- NEUTROS ABS 7.42* 4.37 -- IMMATURE GRANS (ABS) 0.04 0.02 -- LYMPHS ABS 2.70 2.18 -- MONOS ABS 1.12* 0.71 -- EOS ABS 0.58* 0.58* -- MCV 87.9 89.7 -- SED RATE 73* -- -- CRP 2.78* -- -- APTT -- 46.0* 60.8 Lab 07/31/25 14307/25/251716 SODIUM 132* 133* POTASSIUM 4.5 4.5 CHLORIDE 97* 99 CO2 24.3 29.7* ANION GAP 10.7 4.3* BUN 13.9 5.9* CREATININE 0.55* 0.53* EGFR 90.5 91.3 GLUCOSE 108* 83 CALCIUM 9.1 8.5* MAGNESIUM -- 1.9 PHOSPHORUS -- 3.2 Lab 07/31/25 1437 07/25/25 1717 TOTAL PROTEIN 6.8 -- ALBUMIN 3.8 3.2* GLOBULIN 3.0 -- ALT (SGPT) 20 -- AST (SGOT) 30 -- BILIRUBIN 0.2 -- ALK PHOS 64 -- UA 07/24/2025 22:03 Urinalysis Squamous Epithelial Cells, UA 0-2 Specific [place], UA 1.022 Ketones, UA Negative Blood, UA Negative Leukocytes, UA Small (1+) Nitrite, UA Negative RBC, UA None Seen WBC, UA 6-10 Bacteria, UA None Seen Microbiology Results (last 10 days) Procedure Component Value - Date/Time MRSA Screen, PCR (Inpatient) - Swab, Nares [[id number]] (Abnormal) Collected: 07/24/252054 Lab Status: Final result Specimen: Swab from Nares Updated: 07/25/25808 MRSA PCR Positive Narrative: The negative predictive value of this diagnostic test is high and should only be used to consider de-escalating anti-MRSA therapy. A positive result may indicate colonization with MRSA and must be correlated clinically. Blood Culture - Blood, Arm, Left [[id number]] (Normal) Collected: 07/23/251744 Lab Status: Final result Specimen: Blood from Arm, Left Updated: 07/28/251945 Blood Culture No growth at 5 days Narrative: Less than seven (7) mL's of blood was collected. Insufficient quantity may yield false negative results. Blood Culture - Blood, Arm, Right [[id number]] (Normal) Collected: 07/23/251734 Lab Status: Final result Specimen: Blood from Arm, Right Updated: 07/28/251945 Blood Culture No growth at 5 days Narrative: Less than seven (7) mL's of blood was collected. Insufficient quantity may yield false negative results. No radiology results from the last 24 hrs Assessment & Plan Assessment & Plan Critical limb ischemia of left lower extremity PAD (peripheral artery disease) Type 2 diabetes mellitus with diabetic neuropathy, without long-term current use of insulin Primary hypertension Mild intermittent asthma without complication Presence of cardiac pacemaker Claudication PAD with critical limb ischemia LLE - Vascular surgery consult - Surgery planned for Tuesday to reroute blood vessels and potentially remove the affected toe. - Pain management with acetaminophen, PRN oxycodone, PRN dilaudid - Heparin drip - Continue statin and plavix Constipation - Suppository will be administered to alleviate constipation and facilitate bowel movements. - Scheduled bowel regimen Skin breakdown on sacrum - Raw area - Area will be cleaned and treated with a Mepilex dressing. - [facility] Hospital delirium - History of hospital delirium, previously managed with seroquel - Continue PRN seroquel Total time spent: 75 minutes Time spent includes time reviewing chart, [id number] time, counseling patient/family/caregiver, ordering medications/tests/procedures, communicating with other health physician assistant primary care, documenting clinical information in the electronic health record, and coordination of care. VTE Prophylaxis: Pharmacologic VTE prophylaxis orders are signed & held. Pharmacologic VTE prophylaxis orders are present. CODE STATUS: Code Status and Medical Interventions: CPR (Attempt to Resuscitate); Full Support Ordered at: 07/31/25 1538 Code Status (Patient has no pulse and is not breathing): CPR (Attempt to Resuscitate) Medical Interventions (Patient has pulse or is breathing): Full Support Level Of Support Discussed With: Patient Expected Discharge Expected Discharge Date: 08/09/2025; Expected Discharge Time: Yoli Moreira MD 07/31/25 Patient or patient hostess party sales representative verbalized consent for the use of Ambient Listening during the visit for chart documentation. [1] Allergies Allergen Reactions Doxycycline Unknown - High Severity Morphine Mental Status Change Penicillins Unknown - High Severity Sulfur Unknown - High Severity Xanax [Alprazolam] Mental Status Change documented in this encounter Consult Notes * Virgie Rodriguez APRN - 08/01/2025 10:08 AM EDTAssociated Order(s): Inpatient Vascular Surgery Consult Images from the original note were not included. VASCULAR SURGERY CONSULT NOTE Inpatient Vascular Surgery Consult Consult performed by: Virgie Rodriguez APRN Consult ordered by: Yoli Moreira MD Reason for consult: LLE ischemia History of Present Illness: Hattie is a 85 y.o. female presenting with past medical history of peripheral vascular disease withleft lower extremity critical limb ischemia who was recently hospitalized for the same issue and was recently discharged with a plan to come back for elective revascularization with Dr. Zhao on 08/02/2025. Since discharge, she has reportedly had progressive discoloration of the left great toe along with increased pain in the left lower extremity that has impaired her ability to bear weight andwas unable to control the pain at home, so she presented back to the ER and was admitted to the hospitalist service for pain control until her procedure. Vascular surgery was consulted. Past Medical History She has a past medical history of Asthma, Hypertension, and Peripheral vascular disease. Past Surgical History She has no past surgical history on file. Family History: She family history is not on file. Allergies: Doxycycline, Morphine, Penicillins, Sulfur, and Xanax [alprazolam] Medications: Prescriptions Prior to Admission[1] Review of Systems Constitutional: Positive for activity change and fatigue. Negative for fever. HENT: Positive for hearing loss. Eyes: Negative. Respiratory: Negative for shortness of breath. Cardiovascular: Negative for leg swelling. Gastrointestinal: Negative. Genitourinary: Negative. Musculoskeletal: Positive for arthralgias and gait problem. Skin: Positive for color change and wound. Left great toe Allergic/Immunologic: Negative. Neurological: Positive for weakness. Hematological: Negative. Psychiatric/Behavioral: Positive for confusion. Vitals Blood pressure 113/58, pulse 72, temperature 100.2 ??F (37.9 ??C), temperature source Oral, resp. rate 18, height 149.9 cm (59 ), weight 53.3 kg (117 lb 8.1 oz), SpO2 93%. Physical Exam Gen: Awake; elderly white female; resting in bed HEENT: [place] conjunctivae, MMM Lungs: Normal respiratory effort Ext: motor intact; left great toe necrosis; no palpable left pedals Neuro: Follows simple commands Psych: Apropriate mood ?baseline memory loss? Relevant Results: Imaging Results (Last 48 Hours) No results found for the last 48 hours. Lab Results (last 48 hours) Procedure Component Value Units Date/Time Basic Metabolic Panel [[id number]] (Abnormal) Collected: 08/01/25 07 Specimen: Blood Updated: 08/01/25826 Glucose 102 mg/dL BUN 10.7 mg/dL Creatinine 0.49 mg/dL Sodium 131 mmol/L Potassium 4.0 mmol/L Chloride 98 mmol/L CO2 24.7 mmol/L Calcium 8.5 mg/dL BUN/Creatinine Ratio 21.8 Anion Gap 8.3 mmol/L eGFR 93.1 mL/min/1.73 Narrative: GFR Categories in Chronic Kidney [...] does not include race as a factor CBC & Differential [[id number]] (Abnormal) Collected: 08/01/25722 Specimen: Blood Updated: 08/01/25758 Narrative: The following orders were created for panel order CBC & Differential. Procedure Abnormality Status --------- ------ CBC Auto Differential[[id number]] Abnormal Final result Please view results for these tests on the individual orders. CBC Auto Differential [[id number]] (Abnormal) Collected: 08/01/25722 Specimen: Blood Updated: 08/01/25758 WBC 17.15 10*3/mm3 RBC 3.74 10*6/mm3 Hemoglobin 10.5 g/dL Hematocrit 33.2 % MCV 88.8 fL MCH 28.1 pg MCHC 31.6 g/dL RDW 12.9 % RDW-SD 42.0 fl MPV 9.1 fL Platelets 366 10*3/mm3 Neutrophil % 73.9 % Lymphocyte % 14.3 % Monocyte % 9.8 % Eosinophil % 1.4 % Basophil % 0.2 % Immature Grans % 0.4 % Neutrophils, Absolute 12.68 10*3/mm3 Lymphocytes, Absolute 2.45 10*3/mm3 Monocytes, Absolute 1.68 10*3/mm3 Eosinophils, Absolute 0.24 10*3/mm3 Basophils, Absolute 0.03 10*3/mm3 Immature Grans, Absolute 0.07 10*3/mm3 nRBC 0.0 /100 WBC aPTT [[id number]] (Abnormal) Collected: 07/31/25 2252 Specimen: Blood Updated: 08/01/25 0047 PTT 34.8 seconds Narrative: PTT = The equivalent PTT values for the therapeutic range of heparin levels at 0.3 to 0.5 U/ml are 60 to 70 seconds. Heparin Anti-Xa [[id number]] (Normal) Collected: 07/31/251614 Specimen: Blood from Arm, Right Updated: 07/31/251634 Heparin Anti-Xa (UFH) 0.31 IU/ml Protime-INR [[id number]] (Normal) Collected: 07/31/251614 Specimen: Blood from Arm, Right Updated: 07/31/251634 Protime 14.2 Seconds INR 1.04 aPTT [[id number]] (Abnormal) Collected: 07/31/251614 Specimen: Blood from Arm, Right Updated: 07/31/25 163 PTT 35.2 seconds Narrative: PTT = The equivalent PTT values for the therapeutic range of heparin levels at 0.3 to 0.5 U/ml are 60 to 70 seconds. Comprehensive Metabolic Panel [[id number]] (Abnormal) Collected: 07/31/25 1437 Specimen: Blood Updated: 07/31/25 1527 Glucose 108 mg/dL BUN 13.9 mg/dL Creatinine 0.55 mg/dL Sodium 132 mmol/L Potassium 4.5 mmol/L Chloride 97 mmol/L CO2 24.3 mmol/L Calcium 9.1 mg/dL Total Protein 6.8 g/dL Albumin 3.8 g/dL ALT (SGPT) 20 U/L AST (SGOT) 30 U/L Alkaline Phosphatase 64 U/L Total Bilirubin 0.2 mg/dL Globulin 3.0 gm/dL Comment: Calculated Result A/G Ratio 1.3 g/dL BUN/Creatinine Ratio 25.3 Anion Gap 10.7 mmol/L eGFR 90.5 mL/min/1.73 Narrative: GFR Categories in Chronic Kidney [...] does not include race as a factor C-reactive Protein [[id number]] (Abnormal) Collected: 07/31/251436 Specimen: Blood Updated: 07/31/25 152 C-Reactive Protein 2.78 mg/dL Digoxin Level [[id number]] (Normal) Collected: 07/31/251436 Specimen: Blood Updated: 07/31/25 152 Digoxin 1.12 ng/mL Narrative: Results may be falsely increased if patient taking Biotin. Extra Tubes [[id number]] Collected: 07/31/251436 Specimen: Blood, Venous Line Updated: 07/31/251500 Narrative: The following orders were created for panel order Extra Tubes. Procedure Abnormality Status --------- ------ Gold Top - SST[[id number]] Final result Wheatley Top[[id number]] Final result Please view results for these tests on the individual orders. Gold Top - SST [[id number]] Collected: 07/31/251436 Specimen: Blood Updated: 07/31/251500 Extra Tube Hold for add-ons. Comment: Auto resulted. [place]ley Top [[id number]] Collected: 07/31/251436 Specimen: Blood Updated: 07/31/25 150 Extra Tube Hold for add-ons. Comment: Auto resulted. Sedimentation Rate [[id number]] (Abnormal) Collected: 07/31/251436 Specimen: Blood Updated: 07/31/251456 Sed Rate 73 mm/hr CBC Auto Differential [[id number]] (Abnormal) Collected: 07/31/251436 Specimen: Blood Updated: 07/31/251452 WBC 11.90 10*3/mm3 RBC 4.21 10*6/mm3 Hemoglobin 12.2 g/dL Hematocrit 37.0 % MCV 87.9 fL MCH 29.0 pg MCHC 33.0 g/dL RDW 12.8 % RDW-SD 41.0 fl MPV 8.7 fL Platelets 404 10*3/mm3 Neutrophil % 62.4 % Lymphocyte % 22.7 % Monocyte % 9.4 % Eosinophil % 4.9 % Basophil % 0.3 % Immature Grans % 0.3 % Neutrophils, Absolute 7.42 10*3/mm3 Lymphocytes, Absolute 2.70 10*3/mm3 Monocytes, Absolute 1.12 10*3/mm3 Eosinophils, Absolute 0.58 10*3/mm3 Basophils, Absolute 0.04 10*3/mm3 Immature Grans, Absolute 0.04 10*3/mm3 nRBC 0.0 /100 WBC Assessment & Plan - Left great toe ulcer with worsening acute pain - Chronic peripheral vascular disease with critical limb ischemia - recent angioplasty in [place] 06/18/25 - multiple stents from iliac down to popliteal and including HAT FORMER - Diabetes mellitus type 2 with neuropathy - Hypertension - Chronic AFIB on eliquis - Hx pacemaker placement - Chronic asthma - Hyperlipidemia Plan: - eliquis on hold in light of upcoming procedure - continue plavix - heparin drip - glycemic control - pain control PRN - NPO after MN 08/02/25 - to OR for LEFT lower extremity femoral-popliteal bypass and all other indicated procedures on 08/02/[address] Zhao - will add on amputation of LEFT great toe - please call for any further vascular concerns Signed: Electronically signed by Virgie Rodriguez APRN 08/01/25 [1] Medications Prior to Admission Medication Sig Dispense Refill Last Dose/Taking [Paused] apixaban (ELIQUIS) 2.5 MG tablet tablet Take [...] tablet Take 1 tablet by mouth Daily. enoxaparin sodium (LOVENOX) 60 MG/0.6ML solution prefilled syringe syringe Inject 0.5 mL under the skin into the appropriate area as directed every 12 hours for 10 days. *Dispose of remainder of syringe (0.1 mL) after each dose (SINGLE USE SYRINGES)* 12 mL 0 gabapentin (NEURONTIN) 300 MG capsule Take 2 capsules by mouth 2 (Two) Times a Day With Meals. pravastatin (PRAVACHOL) 40 MG tablet Take 1 tablet by mouth Daily. QUEtiapine (SEROquel) 25 MG tablet Take 0.5 (one-half) tablet by mouth Every 12 (Twelve) Hours As Needed for agitation and/or sleep 30 tablet 0 Cosigned by Vinny Lopez MD at 08/01/2025 2:39 PM EDT Associated attestation - Vinny Lopez MD - 08/01/2025 2:39 PM EDT I have reviewed this documentation and agree. documented in this encounter Nursing Notes * Lucy Salgado RN - 08/07/2025 1:48 PM EDT Goal Outcome Evaluation: * Desiree Shearer PTA - 08/07/2025 8:43 AM EDT Goal Outcome Evaluation: Plan of Care Reviewed With: patient Progress: improving Outcome Evaluation: Patient took 4 steps bed>recliner with min/mod assist x2 and rolling walker for support, took seated rest break then ambulated 4 steps forward with min/mod assist x1, cues for step sequencing and maintaining heel WB, assist to control walker, recliner brought up for safety. Further mobility limited by weakness, balance deficits, fatigue and pain. Patient completed B UE/LE exercises at EOB with cues for technique. Recommend SNF at D/C for best functional outcome when medically appropriate. * Jakub Barron RN - 08/05/2025 10:45 AM EDT Images from the original note were not included. Woc consulted by the ICU for stage II present on admission to the ICU. This actually I saw when she came to the hospital and I said that there had been pink epithelium with 2 pinpoint holes. Now the redness that was way out there and not pinkness have actually lightened up and gone away but you can see that top epithelium right around the wound is very very macerated. Wound is full-thickness there is evidence of yellow membrane. It is extremely painful however you can look at the surrounding tissues in my photograph and there is no ongoing like ischemia not sure how much of this is pressure or just patient does not mobilize. Remove the acral dressing which was thankfully placed correctly cleanse the wound I did place Jenise in the middle of this wound as I Thera honey is on backorder. Thera honey would be more indicated for this wound treatment. Sprayed the perirectal area with barrier spray and replaced a new sacral Allevyn and offloaded withpillow. Given patient's vascular compromise and age she will probably have continued breakdown possibly we will try to do our interventions as suggested. Offloading every 2 and keeping that sacral dressing on. Woc will follow. * Hailey Barrios, OT - 08/04/2025 9:50 AM EDT Goal Outcome Evaluation: Plan of Care Reviewed With: patient, grandchild(dustin) Outcome Evaluation: OT evaluation completed. The pt presents below baseline with generalized weakness, acute LLE incisional pain impacting mobility, balance deficits, and decreased activity tolerancewarranting continued IP OT services. The pt ambulated around the bed to the chair using a RWx with Amisha x2, x1 seated rest break taken. Pt with limited L knee flexion and L dorsiflexion impacting mobility. Awaiting clarification regarding LLE WB status, messaged, presumed heel WB in offloading shoe for session. Recommend a d/c to SNF when medically ready. Anticipated Discharge Disposition (OT): [place] [facility] * Norma Huitron, PT - 08/04/2025 8:26 AM EDT Goal Outcome Evaluation: Plan of Care Reviewed With: patient, child Outcome Evaluation: Patient participated in PT initial evaluation. Patient presents with decreased strength, decreased ROM, decreased endurance, decreased sensation, impaired gait mechanics, and decreased balance that overall impacts functional mobility and independence. Patient requiring Amisha x 2 via RW to stand and ambulate short distance around bed with seated rest required. Patient would continue to benefit from skilled PT services at this time. Recommend patient discharge to a SNF when medically appropriate for discharge. Anticipated Discharge Disposition (PT): [place] [facility] * Handy Prakash RN - 08/04/2025 4:37 AM EDT Goal Outcome Evaluation: Plan of Care Reviewed With: patient, child - Alert to person consistently, essentially remains disoriented to other domains; does reorient, but does not retain, which I am told is near baseline by daughter at bedside. Vital signs stable. Remains on room air, saturations 93%- 98%. Respiratory rates 12-18 observed. - Pain well controlled; complaining of pain to buttock and back moreso than operative extremity this AM. PRN PO Floyd given x2, tolerated well, good response to intervention. - Seroquel 12.5mg PO PRN given x1 for sleep promotion. - Neurovascularly WNL; lower extremities both pale, but warm. Pulses palpable. - Pepe catheter maintained; urine output improving in volume, urine output for 12h: 890ml. - No bowel movements. * Sabra Woody RN - 08/03/2025 5:15 PM EDT Goal Outcome Evaluation: Plan of Care Reviewed With: patient Progress: improving -Pt alert to person only. -VSS. On RA. -Up to chair via lift. -PRN pain meds for pain control. * Handy Prakash RN - 08/03/2025 6:59 AM EDT Goal Outcome Evaluation: Plan of Care Reviewed With: patient, family - Vital signs stable. Blood pressure on low end, borderline hypotensive, but maintaining MAP >65. Respiratory rate 12-18 observed. - Alert to self consistently; awakens confused to situation, consistently confused to time and place. Follows all commands, moves extremities. Reports numbness and heaviness of left lower extremity, relating to operative nerve block. - PO Floyd 5mg PRN given x2. Seroquel 12.5mg PO PRN given x1 for sleep. - Lower extremities pale; distal left lower extremity wrapped with post-surgical wrap. Pulses palpable; r dorsalis 1+, radials bilateral +2, popliteal bilateral +2. - Pepe catheter maintained; urine output for 12h: 385ml. - No bowel movements. * Sabra Woody RN - 08/02/2025 6:36 PM EDT Goal Outcome Evaluation: Patient to 2A after left femoral to popliteal artery bypass and left great toe amputation. -On RA -VSS -Patient alert to person only. -Family at bedside. * Perlita Magallanes RN - 08/01/2025 8:35 PM EDT Problem: Adult Inpatient Plan of Care Goal: Plan of Care Review 08/02/2025544 by Perlita Magallanes RN Outcome: Progressing 08/02/2025544 by Perlita Magallanes RN Outcome: Progressing Goal: Patient-Specific Goal (Individualized) 08/02/2025544 by Perlita Magallanes RN Outcome: Progressing 08/02/2025544 by Perlita Magallanes RN Outcome: Progressing Goal: Absence of Hospital-Acquired Illness or Injury 08/02/2025544 by Perlita Magallanes RN Outcome: Progressing 08/02/2025544 by Perlita Magallanes RN Outcome: Progressing Intervention: Identify and Manage Fall Risk Recent Flowsheet Documentation Taken 08/02/2025424 by Perlita Magallanes RN Safety Promotion/Fall Prevention: clutter free environment maintained nonskid shoes/slippers when out of bed room organization consistent safety round/check completed toileting scheduled Taken 08/02/2025205 by Perlita Magallanes RN Safety Promotion/Fall Prevention: clutter free environment maintained nonskid shoes/slippers when out of bed room organization consistent safety round/check completed toileting scheduled Taken 08/02/202524 by Perlita Magallanes RN Safety Promotion/Fall Prevention: clutter free environment maintained nonskid shoes/slippers when out of bed room organization consistent safety round/check completed toileting scheduled Taken 08/01/20252234 by Perlita Magallanes RN Safety Promotion/Fall Prevention: clutter free environment maintained nonskid shoes/slippers when out of bed room organization consistent safety round/check completed toileting scheduled Taken 08/01/20252034 by Perlita Magallanes RN Safety Promotion/Fall Prevention: clutter free environment maintained nonskid shoes/slippers when out of bed room organization consistent safety round/check completed toileting scheduled Intervention: Prevent Skin Injury Recent Flowsheet Documentation Taken 08/02/2025424 by Perlita Magallanes RN Body Position: patient/family refused Skin Protection: incontinence pads utilized Taken 08/02/2025205 by Perlita Magallanes RN Body Position: dangle, side of bed Skin Protection: incontinence pads utilized Taken 08/02/202524 by Perlita Magallanes RN Body Position: right heels elevated Skin Protection: incontinence pads utilized Taken 08/01/20252234 by Perlita Magallanes RN Body Position: supine heels elevated Taken 08/01/20252034 by Perlita Magallanes RN Body Position: patient/family refused Skin Protection: incontinence pads utilized Intervention: Prevent and Manage VTE (Venous Thromboembolism) Risk Recent Flowsheet Documentation Taken 08/01/20252034 by Perlita Magallanes RN VTE Prevention/Management: (heparin gtt) other (see comments) Intervention: Prevent Infection Recent Flowsheet Documentation Taken 08/02/2025424 by Perlita Magallanes RN Infection Prevention: hand hygiene promoted rest/sleep promoted single patient room provided Taken 08/02/2025205 by Perlita Magallanes RN Infection Prevention: hand hygiene promoted rest/sleep promoted single patient room provided Taken 08/02/202524 by Perlita Magallanes RN Infection Prevention: hand hygiene promoted rest/sleep promoted single patient room provided Taken 08/01/20252234 by Perlita Magallanes RN Infection Prevention: hand hygiene promoted personal protective equipment utilized rest/sleep promoted single patient room provided Taken 08/01/20252034 by Perlita Magallanes RN Infection Prevention: hand hygiene promoted rest/sleep promoted single patient room provided Goal: Optimal Comfort and Wellbeing 08/02/2025 0545 by Perlita Magallanes RN Outcome: Progressing 08/02/2025 0545 by Perlita Magallanes RN Outcome: Progressing Goal: Readiness for Transition of Care 08/02/2025 05 by Perlita Magallanes RN Outcome: Progressing 08/02/2025 0545 by Perlita Magallanes RN Outcome: Progressing Problem: Skin Injury Risk Increased Goal: Skin Health and Integrity 08/02/2025 0545 by Perlita Magallanes RN Outcome: Progressing 08/02/2025 0545 by Perlita Magallanes RN Outcome: Progressing Intervention: Optimize Skin Protection Recent Flowsheet Documentation Taken 08/02/2025 042 by Perlita Magallanes RN Activity Management: activity minimized Pressure Reduction Techniques: heels elevated off bed positioned off wounds weight shift assistance provided Head of Bed (HOB) Positioning: HOB elevated Pressure Reduction Devices: heel offloading device utilized positioning supports utilized pressure-redistributing mattress utilized Skin Protection: incontinence pads utilized Taken 08/02/2025 0206 by Perlita Magallanes RN Activity Management: sitting, edge of bed Pressure Reduction Techniques: heels elevated off bed positioned off wounds weight shift assistance provided Head of Bed (HOB) Positioning: HOB elevated Pressure Reduction Devices: heel offloading device utilized positioning supports utilized pressure-redistributing mattress utilized Skin Protection: incontinence pads utilized Taken 08/02/202524 by Perlita Magallanes RN Activity Management: activity minimized Pressure Reduction Techniques: heels elevated off bed positioned off wounds weight shift assistance provided Head of Bed (HOB) Positioning: HOB elevated Pressure Reduction Devices: heel offloading device utilized positioning supports utilized pressure-redistributing mattress utilized Skin Protection: incontinence pads utilized Taken 08/01/20252234 by Perlita Magallanes RN Head of Bed (HOB) Positioning: HOB elevated Taken 08/01/20252034 by Perlita Magallanes RN Activity Management: activity encouraged Pressure Reduction Techniques: heels elevated off bed weight shift assistance provided Head of Bed (HOB) Positioning: HOB elevated Pressure Reduction Devices: heel offloading device utilized positioning supports utilized pressure-redistributing mattress utilized Skin Protection: incontinence pads utilized Problem: Pain Acute Goal: Optimal Pain Control and Function 08/02/2025544 by Perlita Magallanes RN Outcome: Progressing 08/02/2025544 by Perlita Magallanes RN Outcome: Progressing Intervention: Prevent or Manage Pain Recent Flowsheet Documentation Taken 08/02/2025424 by Perlita Magallanes RN Sleep/Rest Enhancement: awakenings minimized consistent schedule promoted Medication Review/Management: medications reviewed Taken 08/02/2025205 by Perlita Magallanes RN Medication Review/Management: medications reviewed Taken 08/02/202524 by Perlita Magallanes RN Medication Review/Management: medications reviewed Taken 08/01/20252234 by Perlita Magallanes RN Medication Review/Management: medications reviewed Taken 08/01/20252034 by Perlita Magallanes RN Medication Review/Management: medications reviewed Problem: Fall Injury Risk Goal: Absence of Fall and Fall-Related Injury 08/02/2025544 by Perlita Magallanes RN Outcome: Progressing 08/02/2025544 by Perlita Magallanes RN Outcome: Progressing Intervention: Identify and Manage Contributors Recent Flowsheet Documentation Taken 08/02/2025424 by Perlita Magallanes RN Medication Review/Management: medications reviewed Taken 08/02/2025205 by Perlita Magallanes RN Medication Review/Management: medications reviewed Taken 08/02/202524 by Perlita Magallanes RN Medication Review/Management: medications reviewed Taken 08/01/20252234 by Perlita Magallanes RN Medication Review/Management: medications reviewed Taken 08/01/20252034 by Perlita Magallanes RN Medication Review/Management: medications reviewed Intervention: Promote Injury-Free Environment Recent Flowsheet Documentation Taken 08/02/2025424 by Perlita Magallanes RN Safety Promotion/Fall Prevention: clutter free environment maintained nonskid shoes/slippers when out of bed room organization consistent safety round/check completed toileting scheduled Taken 08/02/2025205 by Perlita Magallanes RN Safety Promotion/Fall Prevention: clutter free environment maintained nonskid shoes/slippers when out of bed room organization consistent safety round/check completed toileting scheduled Taken 08/02/2025 002 by Perlita Magallanes RN Safety Promotion/Fall Prevention: clutter free environment maintained nonskid shoes/slippers when out of bed room organization consistent safety round/check completed toileting scheduled Taken 08/01/20252234 by Perlita Magallanes RN Safety Promotion/Fall Prevention: clutter free environment maintained nonskid shoes/slippers when out of bed room organization consistent safety round/check completed toileting scheduled Taken 08/01/20252034 by Perlita Magallanes RN Safety Promotion/Fall Prevention: clutter free environment maintained nonskid shoes/slippers when out of bed room organization consistent safety round/check completed toileting scheduled Problem: Comorbidity Management Goal: Maintenance of Asthma Control 08/02/2025544 by Perlita Magallanes RN Outcome: Progressing 08/02/2025544 by Perlita Magallanes RN Outcome: Progressing Intervention: Maintain Asthma Symptom Control Recent Flowsheet Documentation Taken 08/02/2025424 by Perlita Magallanes RN Medication Review/Management: medications reviewed Taken 08/02/2025205 by Perlita Magallanes RN Medication Review/Management: medications reviewed Taken 08/02/202524 by Perlita Magallanes RN Medication Review/Management: medications reviewed Taken 08/01/20252234 by Perlita Magallanes RN Medication Review/Management: medications reviewed Taken 08/01/20252034 by Perlita Magallanes RN Medication Review/Management: medications reviewed Goal: Maintenance of Behavioral Health Symptom Control 08/02/2025544 by Perlita Magallanes RN Outcome: Progressing 08/02/2025544 by Perlita Magallanes RN Outcome: Progressing Intervention: Maintain Behavioral Health Symptom Control Recent Flowsheet Documentation Taken 08/02/2025424 by Perlita Magallanes RN Medication Review/Management: medications reviewed Taken 08/02/2025205 by Perlita Magallanes RN Medication Review/Management: medications reviewed Taken 08/02/202524 by Perlita Magallanes RN Medication Review/Management: medications reviewed Taken 08/01/20252234 by Perlita Magallanes RN Medication Review/Management: medications reviewed Taken 08/01/20252034 by Perlita Magallanes RN Medication Review/Management: medications reviewed Goal: Maintenance of COPD Symptom Control 08/02/2025 05 by Perlita Magallanes RN Outcome: Progressing 08/02/2025 05 by Perlita Magallanes RN Outcome: Progressing Intervention: Maintain COPD (Chronic Obstructive Pulmonary Disease) Symptom Control Recent Flowsheet Documentation Taken 08/02/2025424 by Perlita Magallanes RN Medication Review/Management: medications reviewed Taken 08/02/2025205 by Perlita Magallanes RN Medication Review/Management: medications reviewed Taken 08/02/202524 by Perlita Magallanes RN Medication Review/Management: medications reviewed Taken 08/01/20252234 by Perlita Magallanes RN Medication Review/Management: medications reviewed Taken 08/01/20252034 by Perlita Magallanes RN Medication Review/Management: medications reviewed Goal: Blood Glucose Level Within Target Range 08/02/2025 05 by Perlita Magallanes RN Outcome: Progressing 08/02/2025544 by Perlita Magallanes RN Outcome: Progressing Intervention: Monitor and Manage Glycemia Recent Flowsheet Documentation Taken 08/02/2025424 by Perlita Magallanes RN Medication Review/Management: medications reviewed Taken 08/02/2025205 by Perlita Magallanes RN Medication Review/Management: medications reviewed Taken 08/02/202524 by Perlita Magallanes RN Medication Review/Management: medications reviewed Taken 08/01/20252234 by Perlita Magallanes RN Medication Review/Management: medications reviewed Taken 08/01/20252034 by Perlita Magallanes RN Medication Review/Management: medications reviewed Goal: Maintenance of Heart Failure Symptom Control 08/02/2025 05 by Perlita Magallanes RN Outcome: Progressing 08/02/2025 05 by Perlita Magallanes RN Outcome: Progressing Intervention: Maintain Heart Failure Management Recent Flowsheet Documentation Taken 08/02/2025424 by Perlita Magallanes RN Medication Review/Management: medications reviewed Taken 08/02/2025205 by Perlita Magallanes RN Medication Review/Management: medications reviewed Taken 08/02/202524 by Perlita Magallanes RN Medication Review/Management: medications reviewed Taken 08/01/20252234 by Perlita Magallanes RN Medication Review/Management: medications reviewed Taken 08/01/20252034 by Perlita Magallanes RN Medication Review/Management: medications reviewed Goal: Blood Pressure in Desired Range 08/02/2025 0545 by Perlita Magallanes RN Outcome: Progressing 08/02/2025544 by Perlita Magallanes RN Outcome: Progressing Intervention: Maintain Blood Pressure Management Recent Flowsheet Documentation Taken 08/02/2025424 by Perlita Magallanes RN Medication Review/Management: medications reviewed Taken 08/02/2025205 by Perlita Magallanes RN Medication Review/Management: medications reviewed Taken 08/02/202524 by Perlita Magallanes RN Medication Review/Management: medications reviewed Taken 08/01/20252234 by Perlita Magallanes RN Medication Review/Management: medications reviewed Taken 08/01/20252034 by Perlita Magallanes RN Medication Review/Management: medications reviewed Goal: Maintenance of Osteoarthritis Symptom Control 08/02/2025 05 by Perlita Magallanes RN Outcome: Progressing 08/02/2025544 by Perlita Magallanes RN Outcome: Progressing Intervention: Maintain Osteoarthritis Symptom Control Recent Flowsheet Documentation Taken 08/02/2025424 by Perlita Magallanes RN Activity Management: activity minimized Medication Review/Management: medications reviewed Taken 08/02/2025205 by Perlita Magallanes RN Activity Management: sitting, edge of bed Medication Review/Management: medications reviewed Taken 08/02/202524 by Perlita Magallanes RN Activity Management: activity minimized Medication Review/Management: medications reviewed Taken 08/01/20252234 by Perlita Magallanes RN Medication Review/Management: medications reviewed Taken 08/01/20252034 by Perlita Magallanes RN Activity Management: activity encouraged Medication Review/Management: medications reviewed Goal: Bariatric Home Regimen Maintained 08/02/2025 0545 by Perlita Magallanes RN Outcome: Progressing 08/02/2025544 by Perlita Magallanes RN Outcome: Progressing Intervention: Maintain and Manage Postbariatric Surgery Care Recent Flowsheet Documentation Taken 08/02/2025424 by Perlita Magallanes RN Medication Review/Management: medications reviewed Taken 08/02/2025 0206 by Perlita Magallanes RN Medication Review/Management: medications reviewed Taken 08/02/202524 by Perlita Magallanes RN Medication Review/Management: medications reviewed Taken 08/01/20252234 by Perlita Magallanes RN Medication Review/Management: medications reviewed Taken 08/01/20252034 by Perlita Magallanes RN Medication Review/Management: medications reviewed Goal: Maintenance of Seizure Control 08/02/2025544 by Perlita Magallanes RN Outcome: Progressing 08/02/2025544 by Perlita Magallanes RN Outcome: Progressing Intervention: Maintain Seizure Symptom Control Recent Flowsheet Documentation Taken 08/02/2025424 by Perlita Magallanes RN Medication Review/Management: medications reviewed Taken 08/02/2025 0206 by Perlita Magallanes RN Medication Review/Management: medications reviewed Taken 08/02/202524 by Perlita Magallanes RN Medication Review/Management: medications reviewed Taken 08/01/20252234 by Perlita Magallanes RN Medication Review/Management: medications reviewed Taken 08/01/20252034 by Perlita Magallanes RN Medication Review/Management: medications reviewed Goal Outcome Evaluation: * Quique Byrd RN - 08/01/2025 6:32 PM EDT Problem: Adult Inpatient Plan of Care Goal: Plan of Care Review Outcome: Progressing Goal: Patient-Specific Goal (Individualized) Outcome: Progressing Goal: Absence of Hospital-Acquired Illness or Injury Outcome: Progressing Intervention: Identify and Manage Fall Risk Recent Flowsheet Documentation Taken 08/01/2025 1750 by Quique Byrd RN Safety Promotion/Fall Prevention: activity supervised assistive device/personal items within reach clutter free environment maintained fall prevention program maintained nonskid shoes/slippers when out of bed room organization consistent safety round/check completed toileting scheduled Taken 08/01/2025 1600 by Quique Byrd RN Safety Promotion/Fall Prevention: activity supervised assistive device/personal items within reach clutter free environment maintained fall prevention program maintained nonskid shoes/slippers when out of bed room organization consistent safety round/check completed toileting scheduled Taken 08/01/2025 1400 by Quique Byrd RN Safety Promotion/Fall Prevention: activity supervised assistive device/personal items within reach clutter free environment maintained fall prevention program maintained nonskid shoes/slippers when out of bed room organization consistent safety round/check completed toileting scheduled Taken 08/01/2025 1200 by Quique Byrd RN Safety Promotion/Fall Prevention: activity supervised assistive device/personal items within reach clutter free environment maintained fall prevention program maintained nonskid shoes/slippers when out of bed room organization consistent safety round/check completed toileting scheduled Taken 08/01/2025 0957 by Quique Byrd RN Safety Promotion/Fall Prevention: activity supervised assistive device/personal items within reach clutter free environment maintained fall prevention program maintained nonskid shoes/slippers when out of bed room organization consistent safety round/check completed toileting scheduled Taken 08/01/2025 0800 by Quique Byrd RN Safety Promotion/Fall Prevention: safety round/check completed Intervention: Prevent Skin Injury Recent Flowsheet Documentation Taken 08/01/2025 1750 by Quique Byrd RN Body Position: position maintained heels elevated Skin Protection: drying agents applied incontinence pads utilized Taken 08/01/2025 1600 by Quique Byrd RN Body Position: position maintained heels elevated Skin Protection: drying agents applied incontinence pads utilized Taken 08/01/2025 1400 by Quique yBrd RN Body Position: position maintained heels elevated Skin Protection: drying agents applied incontinence pads utilized Taken 08/01/2025 1200 by Quique Byrd RN Body Position: position maintained heels elevated Skin Protection: drying agents applied incontinence pads utilized Taken 08/01/2025 0957 by Quique Byrd RN Body Position: position maintained heels elevated Skin Protection: drying agents applied incontinence pads utilized Taken 08/01/2025 0800 by Quique Byrd RN Body Position: position maintained heels elevated Skin Protection: drying agents applied incontinence pads utilized Intervention: Prevent Infection Recent Flowsheet Documentation Taken 08/01/2025 1750 by Quique Byrd RN Infection Prevention: environmental surveillance performed Taken 08/01/2025 1600 by Quique Byrd RN Infection Prevention: environmental surveillance performed Taken 08/01/2025 1400 by Quique Byrd RN Infection Prevention: environmental surveillance performed Taken 08/01/2025 1200 by Quique Byrd RN Infection Prevention: environmental surveillance performed Taken 08/01/2025 0957 by Quique Byrd RN Infection Prevention: environmental surveillance performed Taken 08/01/2025 0800 by Quique Byrd RN Infection Prevention: environmental surveillance performed Goal: Optimal Comfort and Wellbeing Outcome: Progressing Intervention: Provide Person-Centered Care Recent Flowsheet Documentation Taken 08/01/2025 1750 by Quique Byrd RN Trust Relationship/Rapport: care explained choices provided questions answered questions encouraged Taken 08/01/2025 1600 by Quique Byrd RN Trust Relationship/Rapport: care explained choices provided questions answered questions encouraged Taken 08/01/2025 1400 by Quique Byrd RN Trust Relationship/Rapport: care explained choices provided questions answered questions encouraged Taken 08/01/2025 1200 by Quique Byrd RN Trust Relationship/Rapport: care explained choices provided questions answered questions encouraged Taken 08/01/2025 0957 by Quique Byrd RN Trust Relationship/Rapport: care explained choices provided questions answered questions encouraged Taken 08/01/2025 0800 by Quique Byrd RN Trust Relationship/Rapport: care explained choices provided questions answered questions encouraged Goal: Readiness for Transition of Care Outcome: Progressing Problem: Skin Injury Risk Increased Goal: Skin Health and Integrity Outcome: Progressing Intervention: Optimize Skin Protection Recent Flowsheet Documentation Taken 08/01/2025 1750 by Quique Byrd RN Activity Management: activity encouraged Pressure Reduction Techniques: frequent weight shift encouraged heels elevated off bed positioned off wounds pressure points protected weight shift assistance provided Head of Bed (HOB) Positioning: HOB elevated Pressure Reduction Devices: specialty bed utilized pressure-redistributing mattress utilized positioning supports utilized heel offloading device utilized Skin Protection: drying agents applied incontinence pads utilized Taken 08/01/2025 1600 by Quique Byrd RN Activity Management: activity encouraged Pressure Reduction Techniques: frequent weight shift encouraged heels elevated off bed positioned off wounds pressure points protected weight shift assistance provided Head of Bed (HOB) Positioning: HOB elevated Pressure Reduction Devices: specialty bed utilized pressure-redistributing mattress utilized positioning supports utilized heel offloading device utilized Skin Protection: drying agents applied incontinence pads utilized Taken 08/01/2025 1400 by Quique Byrd RN Activity Management: activity encouraged Pressure Reduction Techniques: frequent weight shift encouraged heels elevated off bed positioned off wounds pressure points protected weight shift assistance provided Head of Bed (HOB) Positioning: HOB elevated Pressure Reduction Devices: specialty bed utilized pressure-redistributing mattress utilized positioning supports utilized heel offloading device utilized Skin Protection: drying agents applied incontinence pads utilized Taken 08/01/2025 1200 by Quique Byrd RN Activity Management: activity encouraged Pressure Reduction Techniques: frequent weight shift encouraged heels elevated off bed positioned off wounds pressure points protected weight shift assistance provided Head of Bed (HOB) Positioning: HOB elevated Pressure Reduction Devices: specialty bed utilized pressure-redistributing mattress utilized positioning supports utilized heel offloading device utilized Skin Protection: drying agents applied incontinence pads utilized Taken 08/01/2025 0957 by Quique Byrd RN Activity Management: activity encouraged Pressure Reduction Techniques: frequent weight shift encouraged heels elevated off bed positioned off wounds pressure points protected weight shift assistance provided Head of Bed (HOB) Positioning: HOB elevated Pressure Reduction Devices: specialty bed utilized pressure-redistributing mattress utilized positioning supports utilized heel offloading device utilized Skin Protection: drying agents applied incontinence pads utilized Taken 08/01/2025 0800 by Quique Byrd RN Activity Management: activity encouraged Pressure Reduction Techniques: frequent weight shift encouraged heels elevated off bed pressure points protected weight shift assistance provided Head of Bed (HOB) Positioning: HOB elevated Pressure Reduction Devices: pressure-redistributing mattress utilized positioning supports utilized heel offloading device utilized Skin Protection: drying agents applied incontinence pads utilized Problem: Pain Acute Goal: Optimal Pain Control and Function Outcome: Progressing Intervention: Optimize Psychosocial Wellbeing Recent Flowsheet Documentation Taken 08/01/2025 1750 by Quique Byrd RN Diversional Activities: television Taken 08/01/2025 1600 by Quique Byrd RN Diversional Activities: television Taken 08/01/2025 1400 by Quique Byrd RN Diversional Activities: television Taken 08/01/2025 1200 by Quqiue Byrd RN Diversional Activities: television Taken 08/01/2025 0957 by Quique Byrd RN Diversional Activities: television Taken 08/01/2025 0800 by Quique Byrd RN Diversional Activities: television Intervention: Prevent or Manage Pain Recent Flowsheet Documentation Taken 08/01/2025 1750 by Quique Byrd RN Medication Review/Management: medications reviewed Taken 08/01/2025 1600 by Quique Byrd RN Medication Review/Management: medications reviewed Taken 08/01/2025 1400 by Quique Byrd RN Medication Review/Management: medications reviewed Taken 08/01/2025 1200 by Quique Byrd RN Medication Review/Management: medications reviewed Taken 08/01/2025 0957 by Quique Byrd RN Medication Review/Management: medications reviewed Taken 08/01/2025 0800 by Quique Byrd RN Medication Review/Management: medications reviewed Problem: Fall Injury Risk Goal: Absence of Fall and Fall-Related Injury Outcome: Progressing Intervention: Identify and Manage Contributors Recent Flowsheet Documentation Taken 08/01/2025 1750 by Quique Byrd RN Medication Review/Management: medications reviewed Taken 08/01/2025 1600 by Quique Byrd RN Medication Review/Management: medications reviewed Taken 08/01/2025 1400 by Quique Byrd RN Medication Review/Management: medications reviewed Taken 08/01/2025 1200 by Quique Byrd RN Medication Review/Management: medications reviewed Taken 08/01/2025 0957 by Quique Byrd RN Medication Review/Management: medications reviewed Taken 08/01/2025 0800 by Quique Byrd RN Medication Review/Management: medications reviewed Intervention: Promote Injury-Free Environment Recent Flowsheet Documentation Taken 08/01/2025 1750 by Quique Byrd RN Safety Promotion/Fall Prevention: activity supervised assistive device/personal items within reach clutter free environment maintained fall prevention program maintained nonskid shoes/slippers when out of bed room organization consistent safety round/check completed toileting scheduled Taken 08/01/2025 1600 by Quique Byrd RN Safety Promotion/Fall Prevention: activity supervised assistive device/personal items within reach clutter free environment maintained fall prevention program maintained nonskid shoes/slippers when out of bed room organization consistent safety round/check completed toileting scheduled Taken 08/01/2025 1400 by Quique Byrd RN Safety Promotion/Fall Prevention: activity supervised assistive device/personal items within reach clutter free environment maintained fall prevention program maintained nonskid shoes/slippers when out of bed room organization consistent safety round/check completed toileting scheduled Taken 08/01/2025 1200 by Quique Byrd RN Safety Promotion/Fall Prevention: activity supervised assistive device/personal items within reach clutter free environment maintained fall prevention program maintained nonskid shoes/slippers when out of bed room organization consistent safety round/check completed toileting scheduled Taken 08/01/2025 0957 by Quique Byrd RN Safety Promotion/Fall Prevention: activity supervised assistive device/personal items within reach clutter free environment maintained fall prevention program maintained nonskid shoes/slippers when out of bed room organization consistent safety round/check completed toileting scheduled Taken 08/01/2025 0800 by Quique Byrd RN Safety Promotion/Fall Prevention: safety round/check completed Problem: Comorbidity Management Goal: Maintenance of Asthma Control Outcome: Progressing Intervention: Maintain Asthma Symptom Control Recent Flowsheet Documentation Taken 08/01/2025 1750 by Quique Byrd RN Medication Review/Management: medications reviewed Taken 08/01/2025 1600 by Quique Byrd RN Medication Review/Management: medications reviewed Taken 08/01/2025 1400 by Quique Byrd RN Medication Review/Management: medications reviewed Taken 08/01/2025 1200 by Quique Byrd RN Medication Review/Management: medications reviewed Taken 08/01/2025 0957 by Quique Byrd RN Medication Review/Management: medications reviewed Taken 08/01/2025 0800 by Quique Byrd RN Medication Review/Management: medications reviewed Goal: Maintenance of Behavioral Health Symptom Control Outcome: Progressing Intervention: Maintain Behavioral Health Symptom Control Recent Flowsheet Documentation Taken 08/01/2025 1750 by Quique Byrd shot tube machine tender Review/Management: medications reviewed Taken 08/01/2025 1600 by Quique Byrd RN Medication Review/Management: medications reviewed Taken 08/01/2025 1400 by Quique Byrd RN Medication Review/Management: medications reviewed Taken 08/01/2025 1200 by Quique Byrd RN Medication Review/Management: medications reviewed Taken 08/01/2025 0957 by Quique Byrd RN Medication Review/Management: medications reviewed Taken 08/01/2025 0800 by Quique Byrd RN Medication Review/Management: medications reviewed Goal: Maintenance of COPD Symptom Control Outcome: Progressing Intervention: Maintain COPD (Chronic Obstructive Pulmonary Disease) Symptom Control Recent Flowsheet Documentation Taken 08/01/2025 1750 by Quique Byrd RN Medication Review/Management: medications reviewed Taken 08/01/2025 1600 by Quique Byrd RN Medication Review/Management: medications reviewed Taken 08/01/2025 1400 by Quique Byrd RN Medication Review/Management: medications reviewed Taken 08/01/2025 1200 by Quique Byrd RN Medication Review/Management: medications reviewed Taken 08/01/2025 0957 by Quique Byrd RN Medication Review/Management: medications reviewed Taken 08/01/2025 0800 by Quique Byrd RN Medication Review/Management: medications reviewed Goal: Blood Glucose Level Within Target Range Outcome: Progressing Intervention: Monitor and Manage Glycemia Recent Flowsheet Documentation Taken 08/01/2025 1750 by Quique Byrd RN Medication Review/Management: medications reviewed Taken 08/01/2025 1600 by Quique Byrd RN Medication Review/Management: medications reviewed Taken 08/01/2025 1400 by Quique Byrd RN Medication Review/Management: medications reviewed Taken 08/01/2025 1200 by Quique Byrd RN Medication Review/Management: medications reviewed Taken 08/01/2025 0957 by Quique Byrd RN Medication Review/Management: medications reviewed Taken 08/01/2025 0800 by Quique Byrd RN Medication Review/Management: medications reviewed Goal: Maintenance of Heart Failure Symptom Control Outcome: Progressing Intervention: Maintain Heart Failure Management Recent Flowsheet Documentation Taken 08/01/2025 1750 by Quique Byrd RN Medication Review/Management: medications reviewed Taken 08/01/2025 1600 by Quique Byrd RN Medication Review/Management: medications reviewed Taken 08/01/2025 1400 by Quique Byrd RN Medication Review/Management: medications reviewed Taken 08/01/2025 1200 by Quique Byrd RN Medication Review/Management: medications reviewed Taken 08/01/2025 0957 by Quique Byrd RN Medication Review/Management: medications reviewed Taken 08/01/2025 0800 by Quique Byrd RN Medication Review/Management: medications reviewed Goal: Blood Pressure in Desired Range Outcome: Progressing Intervention: Maintain Blood Pressure Management Recent Flowsheet Documentation Taken 08/01/2025 1750 by Quique Byrd RN Medication Review/Management: medications reviewed Taken 08/01/2025 1600 by Quique Byrd RN Medication Review/Management: medications reviewed Taken 08/01/2025 1400 by Quique Byrd RN Medication Review/Management: medications reviewed Taken 08/01/2025 1200 by Quique Byrd RN Medication Review/Management: medications reviewed Taken 08/01/2025 0957 by Quique Byrd RN Medication Review/Management: medications reviewed Taken 08/01/2025 0800 by Quique Byrd RN Medication Review/Management: medications reviewed Goal: Maintenance of Osteoarthritis Symptom Control Outcome: Progressing Intervention: Maintain Osteoarthritis Symptom Control Recent Flowsheet Documentation Taken 08/01/2025 1750 by Quique Byrd RN Activity Management: activity encouraged Medication Review/Management: medications reviewed Taken 08/01/2025 1600 by Quique Byrd RN Activity Management: activity encouraged Medication Review/Management: medications reviewed Taken 08/01/2025 1400 by Quique Byrd RN Activity Management: activity encouraged Medication Review/Management: medications reviewed Taken 08/01/2025 1200 by Quique Byrd RN Activity Management: activity encouraged Medication Review/Management: medications reviewed Taken 08/01/2025 0957 by Quique Byrd RN Activity Management: activity encouraged Medication Review/Management: medications reviewed Taken 08/01/2025 0800 by Quique Byrd RN Activity Management: activity encouraged Medication Review/Management: medications reviewed Goal: Bariatric Home Regimen Maintained Outcome: Progressing Intervention: Maintain and Manage Postbariatric Surgery Care Recent Flowsheet Documentation Taken 08/01/2025 1750 by Quique Byrd RN Medication Review/Management: medications reviewed Taken 08/01/2025 1600 by Quique Byrd RN Medication Review/Management: medications reviewed Taken 08/01/2025 1400 by Quique Byrd RN Medication Review/Management: medications reviewed Taken 08/01/2025 1200 by Quique Byrd RN Medication Review/Management: medications reviewed Taken 08/01/2025 0957 by Quique Byrd RN Medication Review/Management: medications reviewed Taken 08/01/2025 0800 by Quique Byrd RN Medication Review/Management: medications reviewed Goal: Maintenance of Seizure Control Outcome: Progressing Intervention: Maintain Seizure Symptom Control Recent Flowsheet Documentation Taken 08/01/2025 1750 by Quique Byrd RN Medication Review/Management: medications reviewed Taken 08/01/2025 1600 by Quique Byrd RN Medication Review/Management: medications reviewed Taken 08/01/2025 1400 by Quique Byrd RN Medication Review/Management: medications reviewed Taken 08/01/2025 1200 by Quique Byrd RN Medication Review/Management: medications reviewed Taken 08/01/2025 0957 by Quique Byrd RN Medication Review/Management: medications reviewed Taken 08/01/2025 0800 by Quique Byrd RN Medication Review/Management: medications reviewed Goal Outcome Evaluation: * Jakub Barron RN - 08/01/2025 12:15 PM EDT Woc consulted for left toe. A lot worse than previous admisson. Toe is . Painted with betadine. Revascularization tomorrow. Pt. With reported skin breakdwon on admission. Area I saw was moist pink irritant contact dermatitis due to urin/stool or moisture. Possible pressure component. The only areas open were two tiny tinypinpoint areas on gluteal cleft. There is chance that this will open up into dtpi in the next 36 -48 hours. I cleansed with green wipe, applied allevyn. Will follow while inpatient. * Perlita Magallanes RN - 08/01/2025 4:25 AM EDT Problem: Adult Inpatient Plan of Care Goal: Plan of Care Review Outcome: Progressing Goal: Patient-Specific Goal (Individualized) Outcome: Progressing Goal: Absence of Hospital-Acquired Illness or Injury Outcome: Progressing Intervention: Identify and Manage Fall Risk Recent Flowsheet Documentation Taken 08/02/2025424 by Perlita Magallanes RN Safety Promotion/Fall Prevention: clutter free environment maintained nonskid shoes/slippers when out of bed room organization consistent safety round/check completed toileting scheduled Taken 08/02/2025 020 by Perlita Magallanes RN Safety Promotion/Fall Prevention: clutter free environment maintained nonskid shoes/slippers when out of bed room organization consistent safety round/check completed toileting scheduled Taken 08/02/2025 002 by Perlita Magallanes RN Safety Promotion/Fall Prevention: clutter free environment maintained nonskid shoes/slippers when out of bed room organization consistent safety round/check completed toileting scheduled Taken 08/01/20252234 by Perlita Magallanes RN Safety Promotion/Fall Prevention: clutter free environment maintained nonskid shoes/slippers when out of bed room organization consistent safety round/check completed toileting scheduled Taken 08/01/20252034 by Perlita Magallanes RN Safety Promotion/Fall Prevention: clutter free environment maintained nonskid shoes/slippers when out of bed room organization consistent safety round/check completed toileting scheduled Intervention: Prevent Skin Injury Recent Flowsheet Documentation Taken 08/02/2025424 by Perlita Magallanes RN Body Position: patient/family refused Skin Protection: incontinence pads utilized Taken 08/02/2025205 by Perlita Magallanes RN Body Position: dangle, side of bed Skin Protection: incontinence pads utilized Taken 08/02/202524 by Perlita Magallanes RN Body Position: right heels elevated Skin Protection: incontinence pads utilized Taken 08/01/20252234 by Perlita Magallanes RN Body Position: supine heels elevated Taken 08/01/20252034 by Perlita Magallanes RN Body Position: patient/family refused Skin Protection: incontinence pads utilized Intervention: Prevent and Manage VTE (Venous Thromboembolism) Risk Recent Flowsheet Documentation Taken 08/01/20252034 by Perlita Magallanes RN VTE Prevention/Management: (heparin gtt) other (see comments) Intervention: Prevent Infection Recent Flowsheet Documentation Taken 08/02/2025424 by Perlita Magallanes RN Infection Prevention: hand hygiene promoted rest/sleep promoted single patient room provided Taken 08/02/2025 0206 by Perlita Magallanes RN Infection Prevention: hand hygiene promoted rest/sleep promoted single patient room provided Taken 08/02/2025 002 by Perlita Magallanes RN Infection Prevention: hand hygiene promoted rest/sleep promoted single patient room provided Taken 08/01/20252234 by Perlita Magallanes RN Infection Prevention: hand hygiene promoted personal protective equipment utilized rest/sleep promoted single patient room provided Taken 08/01/20252034 by Perlita Magallanes RN Infection Prevention: hand hygiene promoted rest/sleep promoted single patient room provided Goal: Optimal Comfort and Wellbeing Outcome: Progressing Goal: Readiness for Transition of Care Outcome: Progressing Problem: Skin Injury Risk Increased Goal: Skin Health and Integrity Outcome: Progressing Intervention: Optimize Skin Protection Recent Flowsheet Documentation Taken 08/02/2025424 by Perlita Magallanes RN Activity Management: activity minimized Pressure Reduction Techniques: heels elevated off bed positioned off wounds weight shift assistance provided Head of Bed (HOB) Positioning: HOB elevated Pressure Reduction Devices: heel offloading device utilized positioning supports utilized pressure-redistributing mattress utilized Skin Protection: incontinence pads utilized Taken 08/02/2025 020 by Perlita Magallanes RN Activity Management: sitting, edge of bed Pressure Reduction Techniques: heels elevated off bed positioned off wounds weight shift assistance provided Head of Bed (HOB) Positioning: HOB elevated Pressure Reduction Devices: heel offloading device utilized positioning supports utilized pressure-redistributing mattress utilized Skin Protection: incontinence pads utilized Taken 08/02/202524 by Perlita Magallanes RN Activity Management: activity minimized Pressure Reduction Techniques: heels elevated off bed positioned off wounds weight shift assistance provided Head of Bed (HOB) Positioning: HOB elevated Pressure Reduction Devices: heel offloading device utilized positioning supports utilized pressure-redistributing mattress utilized Skin Protection: incontinence pads utilized Taken 08/01/20252234 by Perlita Magallanes RN Head of Bed (HOB) Positioning: HOB elevated Taken 08/01/20252034 by Perlita Magallanes RN Activity Management: activity encouraged Pressure Reduction Techniques: heels elevated off bed weight shift assistance provided Head of Bed (HOB) Positioning: HOB elevated Pressure Reduction Devices: heel offloading device utilized positioning supports utilized pressure-redistributing mattress utilized Skin Protection: incontinence pads utilized Problem: Pain Acute Goal: Optimal Pain Control and Function Outcome: Progressing Intervention: Prevent or Manage Pain Recent Flowsheet Documentation Taken 08/02/2025424 by Perlita Magallanes RN Sleep/Rest Enhancement: awakenings minimized consistent schedule promoted Medication Review/Management: medications reviewed Taken 08/02/2025205 by Perlita Magallanes RN Medication Review/Management: medications reviewed Taken 08/02/202524 by Perlita Magallanes RN Medication Review/Management: medications reviewed Taken 08/01/20252234 by Perlita Magallanes RN Medication Review/Management: medications reviewed Taken 08/01/20252034 by Perlita Magallanes RN Medication Review/Management: medications reviewed Problem: Fall Injury Risk Goal: Absence of Fall and Fall-Related Injury Outcome: Progressing Intervention: Identify and Manage Contributors Recent Flowsheet Documentation Taken 08/02/2025424 by Perlita Magallanes RN Medication Review/Management: medications reviewed Taken 08/02/2025205 by Perlita Magallanes RN Medication Review/Management: medications reviewed Taken 08/02/202524 by Perlita Magallanes RN Medication Review/Management: medications reviewed Taken 08/01/20252234 by Perlita Magallanes RN Medication Review/Management: medications reviewed Taken 08/01/20252034 by Perlita Magallanes RN Medication Review/Management: medications reviewed Intervention: Promote Injury-Free Environment Recent Flowsheet Documentation Taken 08/02/2025424 by Perlita Magallanes RN Safety Promotion/Fall Prevention: clutter free environment maintained nonskid shoes/slippers when out of bed room organization consistent safety round/check completed toileting scheduled Taken 08/02/2025205 by Perlita Magallanes RN Safety Promotion/Fall Prevention: clutter free environment maintained nonskid shoes/slippers when out of bed room organization consistent safety round/check completed toileting scheduled Taken 08/02/202524 by Perlita Magallanes RN Safety Promotion/Fall Prevention: clutter free environment maintained nonskid shoes/slippers when out of bed room organization consistent safety round/check completed toileting scheduled Taken 08/01/20252234 by Perlita Magallanes RN Safety Promotion/Fall Prevention: clutter free environment maintained nonskid shoes/slippers when out of bed room organization consistent safety round/check completed toileting scheduled Taken 08/01/20252034 by Perlita Magallanes RN Safety Promotion/Fall Prevention: clutter free environment maintained nonskid shoes/slippers when out of bed room organization consistent safety round/check completed toileting scheduled Problem: Comorbidity Management Goal: Maintenance of Asthma Control Outcome: Progressing Intervention: Maintain Asthma Symptom Control Recent Flowsheet Documentation Taken 08/02/2025424 by Perlita Magallanes RN Medication Review/Management: medications reviewed Taken 08/02/2025205 by Perlita Magallanes RN Medication Review/Management: medications reviewed Taken 08/02/202524 by Perlita Magallanes RN Medication Review/Management: medications reviewed Taken 08/01/20252234 by Perlita Magallanes RN Medication Review/Management: medications reviewed Taken 08/01/20252034 by Perlita Magallanes RN Medication Review/Management: medications reviewed Goal: Maintenance of Behavioral Health Symptom Control Outcome: Progressing Intervention: Maintain Behavioral Health Symptom Control Recent Flowsheet Documentation Taken 08/02/2025424 by Perlita Magallanes RN Medication Review/Management: medications reviewed Taken 08/02/2025205 by Perlita Magallanes RN Medication Review/Management: medications reviewed Taken 08/02/202524 by Perlita Magallanes RN Medication Review/Management: medications reviewed Taken 08/01/20252234 by Perlita Magallanes RN Medication Review/Management: medications reviewed Taken 08/01/20252034 by Perlita Magallanes RN Medication Review/Management: medications reviewed Goal: Maintenance of COPD Symptom Control Outcome: Progressing Intervention: Maintain COPD (Chronic Obstructive Pulmonary Disease) Symptom Control Recent Flowsheet Documentation Taken 08/02/2025424 by Perlita Magallanes RN Medication Review/Management: medications reviewed Taken 08/02/2025205 by Perlita Magallanes RN Medication Review/Management: medications reviewed Taken 08/02/202524 by Perlita Magallanes RN Medication Review/Management: medications reviewed Taken 08/01/20252234 by Perlita Magallanes RN Medication Review/Management: medications reviewed Taken 08/01/20252034 by Perlita Magallanes RN Medication Review/Management: medications reviewed Goal: Blood Glucose Level Within Target Range Outcome: Progressing Intervention: Monitor and Manage Glycemia Recent Flowsheet Documentation Taken 08/02/2025424 by Perlita Magallanes RN Medication Review/Management: medications reviewed Taken 08/02/2025205 by Perlita Magallanes RN Medication Review/Management: medications reviewed Taken 08/02/202524 by Perlita Magallanes RN Medication Review/Management: medications reviewed Taken 08/01/20252234 by Perlita Magallanes RN Medication Review/Management: medications reviewed Taken 08/01/20252034 by Perlita Magallanes RN Medication Review/Management: medications reviewed Goal: Maintenance of Heart Failure Symptom Control Outcome: Progressing Intervention: Maintain Heart Failure Management Recent Flowsheet Documentation Taken 08/02/2025424 by Perlita Magallanes RN Medication Review/Management: medications reviewed Taken 08/02/2025205 by Perlita Magallanes RN Medication Review/Management: medications reviewed Taken 08/02/202524 by Perlita Magallanes RN Medication Review/Management: medications reviewed Taken 08/01/20252234 by Perlita Magallanes RN Medication Review/Management: medications reviewed Taken 08/01/20252034 by Perlita Magallanes RN Medication Review/Management: medications reviewed Goal: Blood Pressure in Desired Range Outcome: Progressing Intervention: Maintain Blood Pressure Management Recent Flowsheet Documentation Taken 08/02/2025424 by Perlita Magallanes RN Medication Review/Management: medications reviewed Taken 08/02/2025205 by Perlita Magallanes RN Medication Review/Management: medications reviewed Taken 08/02/202524 by Perlita Magallanes RN Medication Review/Management: medications reviewed Taken 08/01/20252234 by Perlita Magallanes RN Medication Review/Management: medications reviewed Taken 08/01/20252034 by Perlita Magallanes RN Medication Review/Management: medications reviewed Goal: Maintenance of Osteoarthritis Symptom Control Outcome: Progressing Intervention: Maintain Osteoarthritis Symptom Control Recent Flowsheet Documentation Taken 08/02/2025424 by Perlita Magallanes RN Activity Management: activity minimized Medication Review/Management: medications reviewed Taken 08/02/2025205 by Perlita Magallanes RN Activity Management: sitting, edge of bed Medication Review/Management: medications reviewed Taken 08/02/202524 by Perlita Magallanes RN Activity Management: activity minimized Medication Review/Management: medications reviewed Taken 08/01/20252234 by Perlita Magallanes RN Medication Review/Management: medications reviewed Taken 08/01/20252034 by Perlita Magallanes RN Activity Management: activity encouraged Medication Review/Management: medications reviewed Goal: Bariatric Home Regimen Maintained Outcome: Progressing Intervention: Maintain and Manage Postbariatric Surgery Care Recent Flowsheet Documentation Taken 08/02/2025424 by Perlita Magallanes RN Medication Review/Management: medications reviewed Taken 08/02/2025205 by Perlita Magallanes RN Medication Review/Management: medications reviewed Taken 08/02/202524 by Perlita Magallanes RN Medication Review/Management: medications reviewed Taken 08/01/20252234 by Perlita Magallanes RN Medication Review/Management: medications reviewed Taken 08/01/20252034 by Perlita Magallanes RN Medication Review/Management: medications reviewed Goal: Maintenance of Seizure Control Outcome: Progressing Intervention: Maintain Seizure Symptom Control Recent Flowsheet Documentation Taken 08/02/2025424 by Perlita Magallanes RN Medication Review/Management: medications reviewed Taken 08/02/2025205 by Perlita Magallanes RN Medication Review/Management: medications reviewed Taken 08/02/202524 by Perlita Magallanes RN Medication Review/Management: medications reviewed Taken 08/01/20252234 by Perlita Magallanes RN Medication Review/Management: medications reviewed Taken 08/01/20252034 by Perlita Magallanes RN Medication Review/Management: medications reviewed Goal Outcome Evaluation: * Perlita Magallanes RN - 07/31/2025 8:53 PM EDT Problem: Adult Inpatient Plan of Care Goal: Plan of Care Review Outcome: Progressing Goal: Patient-Specific Goal (Individualized) Outcome: Progressing Goal: Absence of Hospital-Acquired Illness or Injury Outcome: Progressing Intervention: Identify and Manage Fall Risk Recent Flowsheet Documentation Taken 08/01/2025 0605 by Perlita Magallanes RN Safety Promotion/Fall Prevention: clutter free environment maintained nonskid shoes/slippers when out of bed room organization consistent safety round/check completed toileting scheduled Taken 08/01/2025 0417 by Perlita Magallanes RN Safety Promotion/Fall Prevention: clutter free environment maintained nonskid shoes/slippers when out of bed room organization consistent safety round/check completed toileting scheduled Taken 08/01/2025 0318 by Perlita Magallanes RN Safety Promotion/Fall Prevention: clutter free environment maintained nonskid shoes/slippers when out of bed room organization consistent safety round/check completed toileting scheduled Taken 08/01/2025 0230 by Perlita Magallanes RN Safety Promotion/Fall Prevention: clutter free environment maintained nonskid shoes/slippers when out of bed room organization consistent safety round/check completed toileting scheduled Taken 08/01/2025 0103 by Perlita Magallanes RN Safety Promotion/Fall Prevention: clutter free environment maintained nonskid shoes/slippers when out of bed room organization consistent safety round/check completed toileting scheduled Taken 08/01/2025 0005 by Perlita Magallanes RN Safety Promotion/Fall Prevention: clutter free environment maintained nonskid shoes/slippers when out of bed room organization consistent safety round/check completed toileting scheduled Taken 07/31/2025 2240 by Perlita Magallanes RN Safety Promotion/Fall Prevention: clutter free environment maintained nonskid shoes/slippers when out of bed room organization consistent safety round/check completed toileting scheduled Taken 07/31/2025 2053 by Perlita Magallanes RN Safety Promotion/Fall Prevention: clutter free environment maintained nonskid shoes/slippers when out of bed room organization consistent safety round/check completed toileting scheduled Taken 07/31/2025 204 by Perlita Magallanes RN Safety Promotion/Fall Prevention: clutter free environment maintained nonskid shoes/slippers when out of bed room organization consistent safety round/check completed toileting scheduled Intervention: Prevent Skin Injury Recent Flowsheet Documentation Taken 08/01/2025 0605 by Perlita Magallanes RN Body Position: right foot of bed elevated Skin Protection: incontinence pads utilized Taken 08/01/2025 0417 by Perlita Magallanes RN Body Position: right turned Skin Protection: incontinence pads utilized Taken 08/01/2025 0318 by Perlita Magallanes RN Body Position: position maintained Skin Protection: incontinence pads utilized Taken 08/01/2025 0230 by Perlita Magallanes RN Body Position: heels elevated left Skin Protection: incontinence pads utilized Taken 08/01/2025 0103 by Perlita Magallanes RN Body Position: foot of bed elevated supine Skin Protection: incontinence pads utilized Taken 08/01/2025 0005 by Perlita Magallanes RN Body Position: heels elevated supine Skin Protection: incontinence pads utilized Taken 07/31/2025 2240 by Perlita Magallanes RN Body Position: right heels elevated Skin Protection: incontinence pads utilized Taken 07/31/20252052 by Perlita Magallanes RN Body Position: position maintained foot of bed elevated Skin Protection: incontinence pads utilized Taken 07/31/20252046 by Perlita Magallanes RN Body Position: supine Intervention: Prevent and Manage VTE (Venous Thromboembolism) Risk Recent Flowsheet Documentation Taken 07/31/20252052 by Perlita Magallanes RN VTE Prevention/Management: (heparin gtt) other (see comments) Intervention: Prevent Infection Recent Flowsheet Documentation Taken 08/01/2025 0605 by Perlita Magallanes RN Infection Prevention: hand hygiene promoted rest/sleep promoted single patient room provided Taken 08/01/2025 0417 by Perlita Magallanes RN Infection Prevention: hand hygiene promoted rest/sleep promoted single patient room provided Taken 08/01/2025 0318 by Perlita Magallanes RN Infection Prevention: hand hygiene promoted rest/sleep promoted single patient room provided Taken 08/01/2025 0230 by Perlita Magallanes RN Infection Prevention: hand hygiene promoted rest/sleep promoted single patient room provided Taken 08/01/2025 0103 by Perlita Magallanes RN Infection Prevention: hand hygiene promoted rest/sleep promoted single patient room provided Taken 08/01/2025 0005 by Perlita Magallanes RN Infection Prevention: hand hygiene promoted rest/sleep promoted single patient room provided Taken 07/31/2025 2240 by Perlita Magallanes RN Infection Prevention: hand hygiene promoted rest/sleep promoted single patient room provided Taken 07/31/20252052 by Perlita Magallanes RN Infection Prevention: hand hygiene promoted rest/sleep promoted single patient room provided Taken 07/31/20252046 by Perlita Magallanes RN Infection Prevention: hand hygiene promoted rest/sleep promoted single patient room provided visitors restricted/screened Goal: Optimal Comfort and Wellbeing Outcome: Progressing Intervention: Monitor Pain and Promote Comfort Recent Flowsheet Documentation Taken 08/01/2025 041 by Perlita Magallanes RNrod straightener Interventions: pain medication given Taken 08/01/2025 0103 by Perlita Magallanes RNrod straightener Interventions: pain medication given Taken 07/31/20252046 by Perlita Magallanes RNrod straightener Interventions: pain medication given Goal: Readiness for Transition of Care Outcome: Progressing Problem: Skin Injury Risk Increased Goal: Skin Health and Integrity Outcome: Progressing Intervention: Optimize Skin Protection Recent Flowsheet Documentation Taken 08/01/2025 0605 by Perlita Magallanes RN Activity Management: activity encouraged Pressure Reduction Techniques: heels elevated off bed positioned off wounds weight shift assistance provided Head of Bed (HOB) Positioning: HOB elevated Pressure Reduction Devices: heel offloading device utilized positioning supports utilized pressure-redistributing mattress utilized Skin Protection: incontinence pads utilized Taken 08/01/2025 0417 by Perlita Magallanes RN Activity Management: activity encouraged Pressure Reduction Techniques: heels elevated off bed weight shift assistance provided Head of Bed (HOB) Positioning: HOB elevated Pressure Reduction Devices: heel offloading device utilized positioning supports utilized pressure-redistributing mattress utilized Skin Protection: incontinence pads utilized Taken 08/01/2025 0318 by Perlita Magallanes RN Activity Management: activity encouraged Pressure Reduction Techniques: heels elevated off bed positioned off wounds weight shift assistance provided Head of Bed (HOB) Positioning: HOB elevated Pressure Reduction Devices: heel offloading device utilized positioning supports utilized pressure-redistributing mattress utilized Skin Protection: incontinence pads utilized Taken 08/01/2025 0230 by Perlita Magallanes RN Activity Management: activity encouraged Pressure Reduction Techniques: heels elevated off bed positioned off wounds weight shift assistance provided Head of Bed ([facility]) Positioning: HOB elevated Pressure Reduction Devices: heel offloading device utilized positioning supports utilized pressure-redistributing mattress utilized Skin Protection: incontinence pads utilized Taken 08/01/2025 0103 by Perlita Magallanes RN Activity Management: up to bedside commode Pressure Reduction Techniques: heels elevated off bed positioned off wounds weight shift assistance provided Head of Bed ([facility]) Positioning: HOB elevated Pressure Reduction Devices: heel offloading device utilized positioning supports utilized pressure-redistributing mattress utilized Skin Protection: incontinence pads utilized Taken 08/01/2025 0005 by Perlita Magallanes RN Activity Management: activity encouraged Pressure Reduction Techniques: heels elevated off bed positioned off wounds weight shift assistance provided Head of Bed ([facility]) Positioning: HOB elevated Pressure Reduction Devices: heel offloading device utilized positioning supports utilized pressure-redistributing mattress utilized Skin Protection: incontinence pads utilized Taken 07/31/2025 2240 by Perlita Magallanes RN Activity Management: activity encouraged Pressure Reduction Techniques: heels elevated off bed positioned off wounds weight shift assistance provided Head of Bed ([facility]) Positioning: HOB elevated Pressure Reduction Devices: heel offloading device utilized positioning supports utilized pressure-redistributing mattress utilized Skin Protection: incontinence pads utilized Taken 07/31/20252052 by Perlita Magallanes RN Activity Management: activity encouraged Pressure Reduction Techniques: heels elevated off bed weight shift assistance provided Head of Bed ([facility]) Positioning: HOB elevated Pressure Reduction Devices: heel offloading device utilized positioning supports utilized pressure-redistributing mattress utilized Skin Protection: incontinence pads utilized Taken 07/31/20252046 by Perlita Magallanes RN Activity Management: up to bedside commode Head of Bed (HOB) Positioning: HOB elevated Problem: Pain Acute Goal: Optimal Pain Control and Function Outcome: Progressing Intervention: Develop Pain Management Plan Recent Flowsheet Documentation Taken 08/01/2025 0417 by Perlita Magallanes RNrod straightener Interventions: pain medication given Taken 08/01/2025 0103 by Perlita Magallanes RNrod straightener Interventions: pain medication given Taken 07/31/2025 204 by Perlita Magallanes RNrod straightener Interventions: pain medication given Intervention: Prevent or Manage Pain Recent Flowsheet Documentation Taken 08/01/2025 0605 by Perlita Magallanes RN Medication Review/Management: medications reviewed Taken 08/01/2025 0417 by Perlita Magallanes RN Medication Review/Management: medications reviewed Taken 08/01/2025 0318 by Perlita Magallanes RN Medication Review/Management: medications reviewed Taken 08/01/2025 0230 by Perlita Magallanes RN Medication Review/Management: medications reviewed Taken 08/01/2025 0103 by Perlita Magallanes RN Medication Review/Management: medications reviewed Taken 08/01/2025 0005 by Perlita Magallanes RN Medication Review/Management: medications reviewed Taken 07/31/2025 2240 by Perlita Magallanes RN Medication Review/Management: medications reviewed Taken 07/31/20252052 by Perlita Magallanes RN Medication Review/Management: medications reviewed Taken 07/31/20252046 by Perlita Magallanes RN Medication Review/Management: medications reviewed Problem: Fall Injury Risk Goal: Absence of Fall and Fall-Related Injury Outcome: Progressing Intervention: Identify and Manage Contributors Recent Flowsheet Documentation Taken 08/01/2025 0605 by Perlita Magallanes RN Medication Review/Management: medications reviewed Taken 08/01/2025 0417 by Perlita Magallanes RN Medication Review/Management: medications reviewed Taken 08/01/2025 0318 by Perlita Magallanes RN Medication Review/Management: medications reviewed Taken 08/01/2025 0230 by Perlita Magallanes RN Medication Review/Management: medications reviewed Taken 08/01/2025 0103 by Perlita Magallanes RN Medication Review/Management: medications reviewed Taken 08/01/2025 0005 by Perlita Magallanes RN Medication Review/Management: medications reviewed Taken 07/31/2025 2240 by Perlita Magallanes RN Medication Review/Management: medications reviewed Taken 07/31/20252052 by Perlita Magallanes RN Medication Review/Management: medications reviewed Taken 07/31/20252046 by Perlita Magallanes RN Medication Review/Management: medications reviewed Intervention: Promote Injury-Free Environment Recent Flowsheet Documentation Taken 08/01/2025 0605 by Perlita Magallanes RN Safety Promotion/Fall Prevention: clutter free environment maintained nonskid shoes/slippers when out of bed room organization consistent safety round/check completed toileting scheduled Taken 08/01/2025 0417 by Perlita Magallanes RN Safety Promotion/Fall Prevention: clutter free environment maintained nonskid shoes/slippers when out of bed room organization consistent safety round/check completed toileting scheduled Taken 08/01/2025 0318 by Perlita Magallanes RN Safety Promotion/Fall Prevention: clutter free environment maintained nonskid shoes/slippers when out of bed room organization consistent safety round/check completed toileting scheduled Taken 08/01/2025 0230 by Perlita Magallanes RN Safety Promotion/Fall Prevention: clutter free environment maintained nonskid shoes/slippers when out of bed room organization consistent safety round/check completed toileting scheduled Taken 08/01/2025 0103 by Perlita Magallanes RN Safety Promotion/Fall Prevention: clutter free environment maintained nonskid shoes/slippers when out of bed room organization consistent safety round/check completed toileting scheduled Taken 08/01/2025 0005 by Perlita Magallanes RN Safety Promotion/Fall Prevention: clutter free environment maintained nonskid shoes/slippers when out of bed room organization consistent safety round/check completed toileting scheduled Taken 07/31/2025 2240 by Perlita Magallanes RN Safety Promotion/Fall Prevention: clutter free environment maintained nonskid shoes/slippers when out of bed room organization consistent safety round/check completed toileting scheduled Taken 07/31/2025 2053 by Perlita Magallanes RN Safety Promotion/Fall Prevention: clutter free environment maintained nonskid shoes/slippers when out of bed room organization consistent safety round/check completed toileting scheduled Taken 07/31/2025 2047 by Perlita Magallanes RN Safety Promotion/Fall Prevention: clutter free environment maintained nonskid shoes/slippers when out of bed room organization consistent safety round/check completed toileting scheduled Goal Outcome Evaluation: * Perlita Magallanes RN - 07/31/2025 8:53 PM EDT Problem: Adult Inpatient Plan of Care Goal: Plan of Care Review 08/01/2025617 by Perlita Magallanes RN Outcome: Progressing 08/01/2025617 by Perlita Magallanes RN Outcome: Progressing Goal: Patient-Specific Goal (Individualized) 08/01/2025617 by Perlita Magallanes RN Outcome: Progressing 08/01/2025617 by Perlita Magallanes RN Outcome: Progressing Goal: Absence of Hospital-Acquired Illness or Injury 08/01/2025617 by Perlita Magallanes RN Outcome: Progressing 08/01/2025617 by Perlita Magallanes RN Outcome: Progressing Intervention: Identify and Manage Fall Risk Recent Flowsheet Documentation Taken 08/01/2025 06 by Perlita Magallanes RN Safety Promotion/Fall Prevention: clutter free environment maintained nonskid shoes/slippers when out of bed room organization consistent safety round/check completed toileting scheduled Taken 08/01/2025 0417 by Perlita Magallanes RN Safety Promotion/Fall Prevention: clutter free environment maintained nonskid shoes/slippers when out of bed room organization consistent safety round/check completed toileting scheduled Taken 08/01/2025 0318 by Perlita Magallanes RN Safety Promotion/Fall Prevention: clutter free environment maintained nonskid shoes/slippers when out of bed room organization consistent safety round/check completed toileting scheduled Taken 08/01/2025 0230 by Perlita Magallanes RN Safety Promotion/Fall Prevention: clutter free environment maintained nonskid shoes/slippers when out of bed room organization consistent safety round/check completed toileting scheduled Taken 08/01/2025 0103 by Perlita Magallanes RN Safety Promotion/Fall Prevention: clutter free environment maintained nonskid shoes/slippers when out of bed room organization consistent safety round/check completed toileting scheduled Taken 08/01/2025 0005 by Perlita Magallanes RN Safety Promotion/Fall Prevention: clutter free environment maintained nonskid shoes/slippers when out of bed room organization consistent safety round/check completed toileting scheduled Taken 07/31/2025 2240 by Perlita Magallanes RN Safety Promotion/Fall Prevention: clutter free environment maintained nonskid shoes/slippers when out of bed room organization consistent safety round/check completed toileting scheduled Taken 07/31/20252052 by Perlita Magallanes RN Safety Promotion/Fall Prevention: clutter free environment maintained nonskid shoes/slippers when out of bed room organization consistent safety round/check completed toileting scheduled Taken 07/31/20252046 by Perlita Magallanes RN Safety Promotion/Fall Prevention: clutter free environment maintained nonskid shoes/slippers when out of bed room organization consistent safety round/check completed toileting scheduled Intervention: Prevent Skin Injury Recent Flowsheet Documentation Taken 08/01/2025 0605 by Perlita Magallanes RN Body Position: right foot of bed elevated Skin Protection: incontinence pads utilized Taken 08/01/2025 0417 by Perlita Magallanes RN Body Position: right turned Skin Protection: incontinence pads utilized Taken 08/01/2025 0318 by Perlita Magallanes RN Body Position: position maintained Skin Protection: incontinence pads utilized Taken 08/01/2025 0230 by Perlita Magallanes RN Body Position: heels elevated left Skin Protection: incontinence pads utilized Taken 08/01/2025 0103 by Perlita Magallanes RN Body Position: foot of bed elevated supine Skin Protection: incontinence pads utilized Taken 08/01/2025 0005 by Perlita Magallanes RN Body Position: heels elevated supine Skin Protection: incontinence pads utilized Taken 07/31/2025 2240 by Perlita Magallanes RN Body Position: right heels elevated Skin Protection: incontinence pads utilized Taken 07/31/20252052 by Perlita Magallanes RN Body Position: position maintained foot of bed elevated Skin Protection: incontinence pads utilized Taken 07/31/20252046 by Perlita Magallanes RN Body Position: supine Intervention: Prevent and Manage VTE (Venous Thromboembolism) Risk Recent Flowsheet Documentation Taken 07/31/20252052 by Perlita Magallanes RN VTE Prevention/Management: (heparin gtt) other (see comments) Intervention: Prevent Infection Recent Flowsheet Documentation Taken 08/01/2025 0605 by Perlita Magallanes RN Infection Prevention: hand hygiene promoted rest/sleep promoted single patient room provided Taken 08/01/2025 0417 by Perlita Magallanes RN Infection Prevention: hand hygiene promoted rest/sleep promoted single patient room provided Taken 08/01/2025 0318 by Perlita Magallanes RN Infection Prevention: hand hygiene promoted rest/sleep promoted single patient room provided Taken 08/01/2025 0230 by Perlita Magallanes RN Infection Prevention: hand hygiene promoted rest/sleep promoted single patient room provided Taken 08/01/2025 0103 by Perlita Magallanes RN Infection Prevention: hand hygiene promoted rest/sleep promoted single patient room provided Taken 08/01/2025 0005 by Perlita Magallanes RN Infection Prevention: hand hygiene promoted rest/sleep promoted single patient room provided Taken 07/31/2025 2240 by Perlita Magallanes RN Infection Prevention: hand hygiene promoted rest/sleep promoted single patient room provided Taken 07/31/2025 205 by Perlita Magallanes RN Infection Prevention: hand hygiene promoted rest/sleep promoted single patient room provided Taken 07/31/2025 204 by Perlita Magallanes RN Infection Prevention: hand hygiene promoted rest/sleep promoted single patient room provided visitors restricted/screened Goal: Optimal Comfort and Wellbeing 08/01/2025 0618 by Perlita Magallanes RN Outcome: Progressing 08/01/2025 0618 by Perlita Magallanes RN Outcome: Progressing Intervention: Monitor Pain and Promote Comfort Recent Flowsheet Documentation Taken 08/01/2025 0417 by Perlita Magallanes RNrod straightener Interventions: pain medication given Taken 08/01/2025 0103 by Perlita Magallanes RNrod straightener Interventions: pain medication given Taken 07/31/2025 204 by Perlita Magallanes RNrod straightener Interventions: pain medication given Goal: Readiness for Transition of Care 08/01/2025 0618 by Perlita Magallanes RN Outcome: Progressing 08/01/2025 0618 by Perlita Magallanes RN Outcome: Progressing Problem: Skin Injury Risk Increased Goal: Skin Health and Integrity 08/01/2025 06 by Perlita Magallanes RN Outcome: Progressing 08/01/2025 06 by Perlita Magallanes RN Outcome: Progressing Intervention: Optimize Skin Protection Recent Flowsheet Documentation Taken 08/01/2025 0605 by Perlita Magallanes RN Activity Management: activity encouraged Pressure Reduction Techniques: heels elevated off bed positioned off wounds weight shift assistance provided Head of Bed (HOB) Positioning: HOB elevated Pressure Reduction Devices: heel offloading device utilized positioning supports utilized pressure-redistributing mattress utilized Skin Protection: incontinence pads utilized Taken 08/01/2025 0417 by Perlita Magallanes RN Activity Management: activity encouraged Pressure Reduction Techniques: heels elevated off bed weight shift assistance provided Head of Bed ([facility]) Positioning: [facility] elevated Pressure Reduction Devices: heel offloading device utilized positioning supports utilized pressure-redistributing mattress utilized Skin Protection: incontinence pads utilized Taken 08/01/2025 0318 by Perlita Magallanes RN Activity Management: activity encouraged Pressure Reduction Techniques: heels elevated off bed positioned off wounds weight shift assistance provided Head of Bed ([facility]) Positioning: [facility] elevated Pressure Reduction Devices: heel offloading device utilized positioning supports utilized pressure-redistributing mattress utilized Skin Protection: incontinence pads utilized Taken 08/01/2025 0230 by Perlita Magallanes RN Activity Management: activity encouraged Pressure Reduction Techniques: heels elevated off bed positioned off wounds weight shift assistance provided Head of Bed ([facility]) Positioning: [facility] elevated Pressure Reduction Devices: heel offloading device utilized positioning supports utilized pressure-redistributing mattress utilized Skin Protection: incontinence pads utilized Taken 08/01/2025 0103 by Perlita Magallanes RN Activity Management: up to bedside commode Pressure Reduction Techniques: heels elevated off bed positioned off wounds weight shift assistance provided Head of Bed ([facility]) Positioning: [facility] elevated Pressure Reduction Devices: heel offloading device utilized positioning supports utilized pressure-redistributing mattress utilized Skin Protection: incontinence pads utilized Taken 08/01/2025 0005 by Perlita Magallanes RN Activity Management: activity encouraged Pressure Reduction Techniques: heels elevated off bed positioned off wounds weight shift assistance provided Head of Bed ([facility]) Positioning: [facility] elevated Pressure Reduction Devices: heel offloading device utilized positioning supports utilized pressure-redistributing mattress utilized Skin Protection: incontinence pads utilized Taken 07/31/2025 2240 by Perlita Magallanes RN Activity Management: activity encouraged Pressure Reduction Techniques: heels elevated off bed positioned off wounds weight shift assistance provided Head of Bed ([facility]) Positioning: [facility] elevated Pressure Reduction Devices: heel offloading device utilized positioning supports utilized pressure-redistributing mattress utilized Skin Protection: incontinence pads utilized Taken 07/31/2025 2053 by Perlita Magallanes RN Activity Management: activity encouraged Pressure Reduction Techniques: heels elevated off bed weight shift assistance provided Head of Bed (HOB) Positioning: HOB elevated Pressure Reduction Devices: heel offloading device utilized positioning supports utilized pressure-redistributing mattress utilized Skin Protection: incontinence pads utilized Taken 07/31/20252046 by Perlita Magallanes RN Activity Management: up to bedside commode Head of Bed (HOB) Positioning: HOB elevated Problem: Pain Acute Goal: Optimal Pain Control and Function 08/01/2025617 by Perlita Magallanes RN Outcome: Progressing 08/01/2025617 by Perlita Magallanes RN Outcome: Progressing Intervention: Develop Pain Management Plan Recent Flowsheet Documentation Taken 08/01/2025 0417 by Perlita Magallanes RNrod straightener Interventions: pain medication given Taken 08/01/2025 010 by Perlita Magallanes RNrod straightener Interventions: pain medication given Taken 07/31/20252046 by Perlita Magallanes RNrod straightener Interventions: pain medication given Intervention: Prevent or Manage Pain Recent Flowsheet Documentation Taken 08/01/2025 0605 by Perlita Magallanes RN Medication Review/Management: medications reviewed Taken 08/01/2025 0417 by Perlita Magallanes RN Medication Review/Management: medications reviewed Taken 08/01/2025 0318 by Perlita Magallanes RN Medication Review/Management: medications reviewed Taken 08/01/2025 0230 by Perlita Magallanes RN Medication Review/Management: medications reviewed Taken 08/01/2025 0103 by Perlita Magallanes RN Medication Review/Management: medications reviewed Taken 08/01/2025 0005 by Perlita Magallanes RN Medication Review/Management: medications reviewed Taken 07/31/2025 2240 by Perlita Magallanes RN Medication Review/Management: medications reviewed Taken 07/31/2025 2053 by Perlita Magallanes RN Medication Review/Management: medications reviewed Taken 07/31/2025 204 by Perlita Magallanes RN Medication Review/Management: medications reviewed Problem: Fall Injury Risk Goal: Absence of Fall and Fall-Related Injury 08/01/2025617 by Perlita Magallanes RN Outcome: Progressing 08/01/2025617 by Perlita Magallanes RN Outcome: Progressing Intervention: Identify and Manage Contributors Recent Flowsheet Documentation Taken 08/01/2025 0605 by Perlita Magallanes RN Medication Review/Management: medications reviewed Taken 08/01/2025 0417 by Perlita Magallanes RN Medication Review/Management: medications reviewed Taken 08/01/2025 0318 by Perlita Magallanes RN Medication Review/Management: medications reviewed Taken 08/01/2025 0230 by Perlita Magallanes RN Medication Review/Management: medications reviewed Taken 08/01/2025 0103 by Perlita Magallanes RN Medication Review/Management: medications reviewed Taken 08/01/2025 0005 by Perlita Magallanes RN Medication Review/Management: medications reviewed Taken 07/31/2025 2240 by Perlita Magallanes RN Medication Review/Management: medications reviewed Taken 07/31/2025 205 by Perlita Magallanes RN Medication Review/Management: medications reviewed Taken 07/31/2025 204 by Perlita Magallanes RN Medication Review/Management: medications reviewed Intervention: Promote Injury-Free Environment Recent Flowsheet Documentation Taken 08/01/2025 0605 by Perlita Magallanes RN Safety Promotion/Fall Prevention: clutter free environment maintained nonskid shoes/slippers when out of bed room organization consistent safety round/check completed toileting scheduled Taken 08/01/2025 0417 by Perlita Magallanes RN Safety Promotion/Fall Prevention: clutter free environment maintained nonskid shoes/slippers when out of bed room organization consistent safety round/check completed toileting scheduled Taken 08/01/2025 0318 by Perlita Magallanes RN Safety Promotion/Fall Prevention: clutter free environment maintained nonskid shoes/slippers when out of bed room organization consistent safety round/check completed toileting scheduled Taken 08/01/2025 0230 by Perlita Magallanes RN Safety Promotion/Fall Prevention: clutter free environment maintained nonskid shoes/slippers when out of bed room organization consistent safety round/check completed toileting scheduled Taken 08/01/2025 0103 by Perlita Magallanes RN Safety Promotion/Fall Prevention: clutter free environment maintained nonskid shoes/slippers when out of bed room organization consistent safety round/check completed toileting scheduled Taken 08/01/2025 0005 by Perlita Magallanes RN Safety Promotion/Fall Prevention: clutter free environment maintained nonskid shoes/slippers when out of bed room organization consistent safety round/check completed toileting scheduled Taken 07/31/2025 2240 by Perlita Magallanes RN Safety Promotion/Fall Prevention: clutter free environment maintained nonskid shoes/slippers when out of bed room organization consistent safety round/check completed toileting scheduled Taken 07/31/20253 by Perlita Magallanes RN Safety Promotion/Fall Prevention: clutter free environment maintained nonskid shoes/slippers when out of bed room organization consistent safety round/check completed toileting scheduled Taken 07/31/20252046 by Perlita Magallanes RN Safety Promotion/Fall Prevention: clutter free environment maintained nonskid shoes/slippers when out of bed room organization consistent safety round/check completed toileting scheduled Goal Outcome Evaluation: documented in this encounter OR Notes * Op Note - Junior Zhao MD - 08/02/2025 2:47 PM EDT FEMORAL POPLITEAL BYPASS, AMPUTATION BELOW KNEE Procedure Report Patient Name: Hattie Santos Date of : 1940 Date of Surgery: 08/02/2025 Indications: 85-year-old female with left critical limb ischemia and 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 Patient is here today for femoral to popliteal artery bypass and left great toe amputation Pre-op Diagnosis: Peripheral artery disease [I73.9] Critical limb ischemia of left lower extremity [I70.222] Post-Op Diagnosis Codes: * Peripheral artery disease [I73.9] * Critical limb ischemia of left lower extremity [I70.222] Procedure/CPT?? Codes: Left femoral to below-knee popliteal artery bypass with propatent externally ringed graft Left popliteal endarterectomy Left great toe amputation Staff: Surgeon(s): Junior Zhao MD Slab Tripper: Jackson Barrios RN; India Lane RN; Desiree Helms RN Physician Diver Assistant: Meron Swift PA-C Scrub Person: Shelton Best; Neda Oshea Anesthesia: General Estimated Blood Loss: minimal Implants: Implant Name Type Inv. Item Serial No. Booking Officer Lot No. LRB No. Used Action HEMOST ABS SURGICEL SNOW 1X2IN - [id number] Implant HEMOST ABS SURGICEL SNOW 1X2IN [employer] J [id number] Left 1 Implanted CLIPAPPLR M/ ENDO LIGACLIP 9 3/8IN SM - [id number] Implant CLIPAPPLR M/ ENDO LIGACLIP 9 3/8IN [employer] END[employer] SURGERY DIV OF J [employer] J [id number] Left 1 Implanted CLIPAPPLR M/ ENDO LIGACLIP9 3/8IN MD - [id number] Implant CLIPAPPLR M/ ENDO LIGACLIP9 3/8IN PR [employer] END[employer] SURGERY DIV OF J [employer] J [id number] Left 1 Implanted GRFT VASC PROPAT THNSTRCH [id number] - [id number] - [id number] Implant GRFT VASC PROPAT THNSTRCH [id number] [employer] Left 1 Implanted HEMOST ABS SURGICEL SNOW 1X2IN - [id number] Implant HEMOST ABS SURGICEL SNOW 1X2IN [employer] J [employer] J [id number] Left 1 Implanted Specimen: Specimens ID Source Type Tests Collected By Collected At Frozen? A Leg, Left Tissue TISSUE PATHOLOGY EXAM Junior Zhao MD 08/02/25 1546 Description: Left Popliteal Thrombus Comment: Left Popliteal Thrombus This specimen was not marked as sent. B Toe, Left Tissue TISSUE PATHOLOGY EXAM Junior Zhao MD 08/02/25 1621 Description: Left Great Toe Comment: Left Great Toe This specimen was not marked as sent. Findings: Successful femoral to popliteal artery bypass with propatent graft and left great toe amputation Complications: None Description of Procedure: After informed consent was obtained risk and benefits discussed with the patient patient was brought back to the operating table laid in supine positions patient left groin and entire left leg were prepped and draped in usual sterile fashion preoperative antibiotics given and timeout performed. Longitudinal incision was made on the left groin dissecting down to the common femoral artery along with its branches superficial femoral artery profunda artery. I then made an incision below the knee exposing the below-knee popliteal artery along with its anterior tibial artery branch. Once this was done I then tunneled a 6 external ringed propatent graft. A bolus of heparin was given and I clamped the external iliac artery open the common femoral artery which was stented before had but the lumen was patent I removed any thrombus from the profunda superficial femoral artery is occluded I then anastomosed a 6 external ringed propatent graft to the common femoral artery we had good pulsatile bleeding. Once this was done I then measured a longitudinal arteriotomy on the popliteal artery found extensive plaque and thrombus this was removed until we had good backbleeding from the anterior tibial artery and the tibioperoneal trunk. Once this was done I then anastomose the 6 propatent graft to the popliteal artery. Hemostasis was achieved. Both these incisions was closed in standard fashion st aples reapproximate skin along with standard dressings. I then turned my attention to the left great toe incision was made over the left great toe taken back down to the metatarsal head left great toe was then passed off the specimen we had good bleeding around the skin edges of the amputation site. Vicryl was used to reapproximate some of the subcutaneous tissue over the metatarsal head. I then used nylon to reapproximate the skin and standard dressings applied patient tolerated the procedure well. Patient was awakened from general anesthesia. Patient was taken back to recovery in stable condition. All counts correct. Junior Pavel MD Date: 08/02/2025 Time: 16:32 EDT documented in this encounter ED Notes * Jesús Sheldon Jr., EUGENIA-Arnoldo - 07/31/2025 2:19 PM EDT Images from the original note were not included. Subjective History of Present Illness: Chief Complaint: Left leg pain History of Present Illness: 85-year-old female with left leg pain, patient was recently in the hospital, at [facility], admitted on 07/23/2025, discharged 07/25/2025, admitted for critical limb ischemia of the left lower extremity, peripheral tern disease, she has history of type 2 diabetes, hypertension, coronary artery disease with pacemaker. She had a CTA at that time that showed occlusion of the left femoral artery, superficial femoral artery, popliteal arteries, with reconstitution of the infrapopliteal runoff with a patent arterial tibial artery to the ankle. The plan upon discharge was for surgery on 08/02/2025 for revascularization. She states that the pain has gotten worse over the last couple days, she cannot bear weight on the leg, she has 2 new blisters on her leg,the left great toe has gotten worse. Onset: Gradual Duration: Several days Exacerbating / Alleviating factors: Patient is ischemia of the left lower extremity Associated symptoms: Intermittent worsening pain Nurses Notes reviewed and agree, including vitals, allergies, social history and prior medical history. REVIEW OF SYSTEMS: All systems reviewed and not pertinent unless noted. Review of Systems Musculoskeletal: Left leg pain All other systems reviewed and are negative. Past Medical History: Diagnosis Date Asthma Hypertension Peripheral vascular disease Allergies: Doxycycline, Morphine, Penicillins, Sulfur, and Xanax [alprazolam] History reviewed. No pertinent surgical history. Social History[1] History reviewed. No pertinent family history. Objective Physical Exam: BP (!) 184/80 (BP Location: Right arm, Patient Position: Lying) Pulse 78 Temp 98 ??F (36.7 ??C)(Oral) Resp 16 Ht 149.9 cm (59 ) Wt 53.3 kg (117 lb 8.1 oz) SpO2 92% BMI 23.73 kg/m?? Physical Exam Vitals and nursing note reviewed. Constitutional: Appearance: She is well-developed. HENT: Head: Normocephalic and atraumatic. Cardiovascular: Rate and Rhythm: Normal rate and regular rhythm. Pulmonary: Effort: Pulmonary effort is normal. Breath sounds: Normal breath sounds. Abdominal: Palpations: Abdomen is soft. Musculoskeletal: Cervical back: Normal range of motion and neck supple. Feet: Comments: Necrotic left great toe Skin: General: Skin is warm and dry. Neurological: Mental Status: She is alert and oriented to person, place, and time. Deep Tendon Reflexes: Reflexes are normal and symmetric. Procedures ED Course: ED Course as of 07/31/251916Jul 31, 2025 1359 Call placed thru to the exchange for vascular surgery [CS] 1407 Discussed the case with Angela Rodriguez, she recommended admitting to the hospitalist for pain control, they will see the patient and discuss surgery. They recommended Lovenox therapeutic dose 1 mg per kilogram, and pain medication as needed. [CS] 1412 Message sent to the hospitalist for admission [CS] 1417 Patient accepted for admission [CS] 1418 Review of previous non ED visits, prior labs, prior imaging, available notes from prior evaluations or visits with specialists, medication list, allergies, past medical history, past surgical history Recent hospitalization July 2025 for critical limb ischemia of left lower extremity, evaluation of hospitalization, hospital course, medications, and review of CTA left lower extremity [CS] ED Course User Index [CS] Jesús Sheldon Jr., PA-C Lab Results (last 24 hours) Procedure Component Value Units Date/Time CBC Auto Differential [[id number]] (Abnormal) Collected: 07/31/251436 Specimen: Blood Updated: 07/31/25 1453 WBC 11.90 10*3/mm3 RBC 4.21 10*6/mm3 Hemoglobin 12.2 g/dL Hematocrit 37.0 % MCV 87.9 fL MCH 29.0 pg MCHC 33.0 g/dL RDW 12.8 % RDW-SD 41.0 fl MPV 8.7 fL Platelets 404 10*3/mm3 Neutrophil % 62.4 % Lymphocyte % 22.7 % Monocyte % 9.4 % Eosinophil % 4.9 % Basophil % 0.3 % Immature Grans % 0.3 % Neutrophils, Absolute 7.42 10*3/mm3 Lymphocytes, Absolute 2.70 10*3/mm3 Monocytes, Absolute 1.12 10*3/mm3 Eosinophils, Absolute 0.58 10*3/mm3 Basophils, Absolute 0.04 10*3/mm3 Immature Grans, Absolute 0.04 10*3/mm3 nRBC 0.0 /100 WBC Comprehensive Metabolic Panel [[id number]] (Abnormal) Collected: 07/31/251436 Specimen: Blood Updated: 07/31/25 1527 Glucose 108 mg/dL BUN 13.9 mg/dL Creatinine 0.55 mg/dL Sodium 132 mmol/L Potassium 4.5 mmol/L Chloride 97 mmol/L CO2 24.3 mmol/L Calcium 9.1 mg/dL Total Protein 6.8 g/dL Albumin 3.8 g/dL ALT (SGPT) 20 U/L AST (SGOT) 30 U/L Alkaline Phosphatase 64 U/L Total Bilirubin 0.2 mg/dL Globulin 3.0 gm/dL Comment: Calculated Result A/G Ratio 1.3 g/dL BUN/Creatinine Ratio 25.3 Anion Gap 10.7 mmol/L eGFR 90.5 mL/min/1.73 Narrative: GFR Categories in Chronic Kidney [...] does not include race as a factor Sedimentation Rate [[id number]] (Abnormal) Collected: 07/31/251436 Specimen: Blood Updated: 07/31/25 1457 Sed Rate 73 mm/hr C-reactive Protein [[id number]] (Abnormal) Collected: 07/31/251436 Specimen: Blood Updated: 07/31/25 1523 C-Reactive Protein 2.78 mg/dL Digoxin Level [[id number]] (Normal) Collected: 07/31/251436 Specimen: Blood Updated: 07/31/25 1523 Digoxin 1.12 ng/mL Narrative: Results may be falsely increased if patient taking Biotin. Heparin Anti-Xa [[id number]] (Normal) Collected: 07/31/251614 Specimen: Blood from Arm, Right Updated: 07/31/251634 Heparin Anti-Xa (UFH) 0.31 IU/ml Protime-INR [[id number]] (Normal) Collected: 07/31/251614 Specimen: Blood from Arm, Right Updated: 07/31/251634 Protime 14.2 Seconds INR 1.04 aPTT [[id number]] (Abnormal) Collected: 07/31/251614 Specimen: Blood from Arm, Right Updated: 07/31/251634 PTT 35.2 seconds Narrative: PTT = The equivalent PTT values for the therapeutic range of heparin levels at 0.3 to 0.5 U/ml are 60 to 70 seconds. No radiology results from the last 24 hrs Medical Decision Making Problems Addressed: Claudication: complicated acute illness or injury Critical limb ischemia of left lower extremity: complicated acute illness or injury Amount and/or Complexity of Data Reviewed Independent Historian: caregiver External Data Reviewed: labs, radiology and notes. Labs: ordered. Decision-making details documented in ED Course. Risk Prescription drug management. Decision regarding hospitalization. Risk Details: 85-year-old female presented with known critical limb ischemia in the left lower extremity, confirmed by recent CTA of the left lower extremity, as well as necrosis of the left great toe. She represented with increasingly worsening claudication, she did have palpable pulse by Doppler that was similar to previous pulse, but her pain was intense, discussed the case with vascular surgery who recommended admission for pain control, she has a scheduled surgery for revascularization's in 2 days Final diagnoses: Critical limb ischemia of left lower extremity Claudication Disposition admission [1] Social History Socioeconomic History Marital status: Tobacco Use Smoking status: Never Smokeless tobacco: Never Vaping Use Vaping status: Never Used Substance and Sexual Activity Alcohol use: Never Drug use: Never Sexual activity: Defer Jesús Sheldon Jr., PA-C 07/31/251916 Cosigned by Gregg Munoz MD at 07/31/2025 9:39 PM EDT Associated attestation - Gregg Munoz MD - 07/31/2025 9:39 PM EDT SUPERVISE: For this patient encounter, I reviewed the APC's documentation, treatment plan, and medical decision making. Gregg Munoz MD 07/31/2025 21:39 EDT documented in this encounter Miscellaneous Notes * Case Management/Social Work - Rani Pereira RN - 08/07/2025 2:29 PM EDT Case Management Discharge Note Final Note: Received call from [facility] who advises [facility] is not taking [employer] Medicare and [facility] cannot accept at this time. Family request Referral to [facility] and if not accepted [facility]. Spoke to liasion for edisys who cannot accept [employer] Medicare. Spoke to [facility] liaison who acceptedpatient to service for PT/OT and will evaluate need for SN. Patient plan is to discharge home with [facility] today via car with family to transport. Selected Continued Care - Admitted Since 07/31/2025 Destination No services have been selected for the patient. Durable Medical Equipment No services have been selected for the patient. Dialysis/Infusion No services have been selected for the patient. Home Medical Care Coordination complete. Service Provider Services Address Phone Fax Patient Preferred [facility] [address] [address] [phone] -- Therapy No services have been selected for the patient. Community & DME No services have been selected for the patient. Community Resources No active community resources. Final Discharge Disposition Code: 06 - home with home health care * Case Management/Social Work - Lily Martinez - 08/07/2025 2:29 PM EDT Start PACC Note Home Health Referral Evaluated patient and on Home Care and services available. Patient offered choice of available HHC and agreeable to PT/OT services with [facility]. Isolation Precautions: No active isolations START PATIENT REGISTRATION INFORMATION Order Information Order Signing Physician: Neda Ocampo, DO Service Ordered RN?: No Service Ordered PT?: Yes Service Ordered OT?: Yes Service Ordered ST?: No Service Ordered MILITARY LOGISTICS SPECIALIST?: No Service Ordered CRIME SPECIALIST?: No Following Physician: Alexis Anand MD Following Physician Overseeing Physician: Alexis Anand MD (Required for Residents Only) Agreeable to Follow ? Yes Date/Time of Call 08/07/25 14:29 EDT, Spoke with: Care Coordination Same Day SOC?: No Primary Care Physician: Alexis Anand MD Primary Care Physician Primary Care Physician Address: [address] [place] [address] [address] [facility] [address] [facility] [id number] Visit Instructions: N/A Service Discharge Location Type: Home Service Facility Name: N/A Service Floor Facility: N/A Service Room No: N/A Demographics Patient Last Name: Sera Patient First Name: Hattie Language/Communication Barrier: NO Service Address: [address] [place] [address] Service City: [place] Service State: [place] Service Zip: [address] Service Other Phone Numbers: Telephone Information: Emergency Contact: Extended Emergency Contact Information Primary Emergency Contact: LAKESHA DAVILA Address: [address] [place] [id number] [place] Relation: Daughter Refuge Worker needed? No Secondary Emergency Contact: ESTELA SANTOS Mobile Relation: Daughter Refuge Worker needed? No Admission Information Admit Date: 07/31/2025 Patient Status at Discharge: Inpatient Admitting Diagnosis: Claudication [I73.9] Critical limb ischemia of left lower extremity [I70.222] Caregiver Information Caregiver First Name: LAKESHA Caregiver Last Name: GIOVANNI Caregiver Relationship to Patient: DAUGHTER Caregiver Caregiver Notes: ESTELA SANTOS, DAUGHTER [phone] [facility] No END PATIENT REGISTRATION INFORMATION Start PACC Summary Additional Comments: END PACC Summary Discharge Date: Pending Referral Source: [facility] L[facility]pez Signed By: Lily Martinez, 08/07/2025, 14:29 EDT Date/Time: 08/07/25 14:29 EDT End PACC Note * Case Management/Social Work - Rani Pereira RN - 08/07/2025 2:09 PM EDT Continued Stay Note [facility] López Patient Name: Hattie Santos Today's Date: 08/07/2025 Admit Date: 07/31/2025 Plan: update Discharge Plan Row Name 08/07/25 1407 Plan Plan update Patient/Family in Agreement with Plan yes Plan Comments Patient has orders for discharge. Spoke with patient and daughter at bedside regarding disharge plan who has chosen [facility]. Called [facility] and left VM with liaison. CM following. Patient plan is to discharge home today with [facility] if accepted via car with familyto transport. Final Discharge Disposition Code 06 - home with home health care Discharge Codes No documentation. Expected Discharge Date and Time Expected Discharge Date Expected Discharge Time Aug 07, 2025 Rani Pereira, RN * Therapy Treatment Note - Desiree Shearer, DRIVER SUPERVISOR - 08/07/2025 8:43 AM EDT Images from the original note were not included. Patient Name: Hattie Santos : 1940 Today's Date: 08/07/2025 Admit Date: 07/31/2025 Visit Dx: ICD-10-CM ICD-9-CM 1. Critical limb ischemia of left lower extremity I70.222 440.22 2. Claudication I73.9 443.9 3. 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 Peripheral artery disease I73.9 443.9 Patient Active Problem List Diagnosis PAD (peripheral artery disease) Critical limb ischemia of left lower extremity Type 2 diabetes mellitus with diabetic neuropathy, without long-term current use of insulin Primary hypertension Mild intermittent asthma without complication Presence of cardiac pacemaker Peripheral artery disease Claudication Toe necrosis Past Medical History: Diagnosis Date Asthma Hypertension Peripheral vascular disease Past Surgical History: Procedure Laterality Date BELOW KNEE AMPUTATION Left 08/02/2025 Procedure: GREAT TOE AMPUTATION; Surgeon: Junior Zhao MD; Location: [facility] OR; Service:Vascular; Laterality: Left; FEMORAL POPLITEAL BYPASS Left 08/02/2025 Procedure: FEMORAL POPLITEAL BYPASS; Surgeon: Junior Zhao MD; Location: [facility] OR; Service: Vascular; Laterality: Left; General Information Row Name 08/07/25928 Physical Therapy Time and Intention Document Type therapy note (daily note) - Mode of Treatment physical therapy - Row Name 08/07/25928 General Information Patient Profile Reviewed yes - Existing Precautions/Restrictions fall offloading shoe L, presumed heel WB at this time, awaiting MD clarification on WB status - Barriers to Rehab medically complex;previous functional deficit;cognitive status - Row Name 08/07/25928 Cognition Orientation Status (Cognition) oriented to;person;place - Row Name 08/07/25928 Safety Issues/Impairments Affecting Functional Mobility Safety Issues Affecting Function (Mobility) awareness of need for assistance;insight into deficits/self-awareness;sequencing abilities;safety precautions follow-through/compliance;judgment;positioning of assistive device - Impairments Affecting Function (Mobility) balance;cognition;endurance/activity tolerance;sensation/sensory awareness;pain;postural/trunk control;range of motion (ROM);strength - Cognitive Impairments, Mobility Safety/Performance awareness, need for assistance;insight into defic its/self-awareness;judgment;problem-solving/reasoning;safety precaution awareness;safety precautionfollow-through;sequencing abilities - Comment, Safety Issues/Impairments (Mobility) needs reassurance and step by step explanation of task, used daughters tennis shoe for right and encouraged family to bring her own for height differenced/t offloading shoe on L - User Amor (r) = Recorded By, (t) = Taken By, (c) = Cosigned By Initials Name Provider Type Desiree Shearer PTA Physical Therapist Diver Assistant Mobility Row Name 08/07/25931 Bed Mobility Supine-Sit [place] (Bed Mobility) verbal cues;minimum assist (75% patient effort);1 person assist - Assistive Device (Bed Mobility) head of bed elevated;bed rails;repositioning sheet - Comment, (Bed Mobility) assist needed at trunk to reach EOB - Row Name 08/07/25931 Transfers Comment, (Transfers) multiple verbal cues for hand and feet placement - Row Name 08/07/25931 Bed-Chair Transfer Bed-Chair [place] (Transfers) verbal cues;minimum assist (75% patient effort);moderate assist (50% patient effort);1 person assist - Assistive Device (Bed-Chair Transfers) walker, front-wheeled - Comment, (Bed-Chair Transfer) patient took steps to recliner then took seated rest break, then ambulated 4 steps forward - Row Name 08/07/25931 Sit-Stand Transfer Sit-Stand [place] (Transfers) verbal cues;minimum assist (75% patient effort);moderate assist (50% patient effort);1 person assist - Assistive Device (Sit-Stand Transfers) walker, front-wheeled - Comment, (Sit-Stand Transfer) cues for hand/feet placement and to maintain heel WB L LE - Row Name 08/07/25931 Gait/Stairs (Locomotion) [place] Level (Gait) verbal cues;minimum assist (75% patient effort);1 person assist;moderate assist (50% patient effort) - Assistive Device (Gait) walker, front-wheeled - Distance in Feet (Gait) 4 + 4 - Deviations/Abnormal Patterns (Gait) dennise decreased;festinating/shuffling;gait speed decreased;bilateral deviations;base of support, narrow - Bilateral Gait Deviations forward flexed posture;weight shift ability decreased - Left Sided Gait Deviations forward flexed posture;heel strike decreased - Comment, (Gait/Stairs) Patient took 4 steps bed>recliner with min/mod assist x2 and rolling walker for support, took seated rest break then ambulated 4 steps forward with min/mod assist x1, cues for step sequencing and maintaining heel WB, assist to control walker, recliner brought up for safety. Further mobility limited by weakness, balance deficits, fatigue and pain. - User Amor (r) = Recorded By, (t) = Taken By, (c) = Cosigned By Initials Name Provider Type Desiree Shearer PTA Physical Therapist Diver Assistant Obj/Interventions Row Name 08/07/25 0941 Motor Skills Therapeutic Exercise knee;ankle - Row Name 08/07/25 0941 Knee (Therapeutic Exercise) Knee (Therapeutic Exercise) strengthening exercise - Knee Strengthening (Therapeutic Exercise) bilateral;marching while seated;LAQ (long arc quad);sitting;10 repetitions - Row Name 08/07/25 0941 Ankle (Therapeutic Exercise) Ankle (Therapeutic Exercise) AROM (active range of motion) - Ankle AROM (Therapeutic Exercise) bilateral;dorsiflexion;plantarflexion;sitting;10 repetitions - Row Name 08/07/25 0941 Balance Dynamic Sitting Balance verbal cues;minimal assist;1-person assist - Position, Sitting Balance unsupported;sitting edge of bed - Dynamic Standing Balance verbal cues;minimal assist;moderate assist;1-person assist - Position/Device Used, Standing Balance supported;walker, front-wheeled - Comment, Balance mi/mod asisst for safety, unsteadiness but no LOB noticed - User Amor (r) = Recorded By, (t) = Taken By, (c) = Cosigned By Initials Name Provider Type Desiree Shearer PTA Physical Therapist Diver Assistant Goals/Plan No documentation. Clinical Impression Row Name 10/22/25 0942 Pain Pain Location extremity - Pain Side/Orientation right - Pain Management Interventions activity modification encouraged;exercise or physical activity utilized - Response to Pain Interventions activity level improved - Additional Documentation Pain Scale: FACES Pre/Post-Treatment (Group) - Row Name 08/07/25941 Pain Scale: FACES Pre/Post-Treatment Pain: FACES Scale, Pretreatment 0-->no hurt - Posttreatment Pain Rating 4-->hurts little more - Row Name 08/07/25941 Plan of Care Review Plan of Care Reviewed With patient - Progress improving - Outcome Evaluation Patient took 4 steps bed>recliner with min/mod assist x2 and rolling walker for support, took seated rest break then ambulated 4 steps forward with min/mod assist x1, cues for step sequencing and maintaining heel WB, assist to control walker, recliner brought up for safety. Further mobility limited by weakness, balance deficits, fatigue and pain. Patient completed B UE/LE exercises at EOB with cues for technique. Recommend SNF at D/C for best functional outcome when medically appropriate. - Row Name 08/07/25941 Positioning and Restraints Pre-Treatment Position in bed - Post Treatment Position chair - In Chair reclined;call light within reach;encouraged to call for assist;exit alarm on;waffle cushion;with family/caregiver;legs elevated;notified nsg - User Amor (r) = Recorded By, (t) = Taken By, (c) = Cosigned By Initials Name Provider Type Desiree Shearer, TRELL Physical Therapist Diver Assistant Outcome Measures Row Name 08/07/2544 How much help from another person do you currently need... Turning from your back to your side while in flat bed without using bedrails? 3 - Moving from lying on back to sitting on the side of a flat bed without bedrails? 2 - Moving to and from a bed to a chair (including a wheelchair)? 2 - Standing up from a chair using your arms (e.g., wheelchair, bedside chair)? 2 - Climbing 3-5 steps with a railing? 1 - To walk in hospital room? 2 - AM-PAC 6 Clicks Score (PT) 12 - Highest Level of Mobility Goal Move to Chair/Commode-4 - Row Name 08/07/25943 Functional Assessment Outcome Measure Options AM-PAC 6 Clicks Basic Mobility (PT) - User Amor (r) = Recorded By, (t) = Taken By, (c) = Cosigned By Initials Name Provider Type Desiree Shearer PTA Physical Therapist Diver Assistant Physical Therapy Education Title: PT OT RETENTION SPECIALIST Therapies (In Progress) Topic: Physical Therapy (In Progress) Point: Mobility training (In Progress) Learning Progress Summary Patient Acceptance, E, NR by at 08/07/2025943 Acceptance, E, NR by MB at 08/04/2025 1308 Point: Home exercise program (In Progress) Learning Progress Summary Patient Acceptance, E, NR by at 08/07/2025943 Point: Body mechanics (In Progress) Learning Progress Summary Patient Acceptance, E, NR by at 08/07/2025943 Acceptance, E, NR by MB at 08/04/2025 1308 Point: Precautions (In Progress) Learning Progress Summary Patient Acceptance, E, NR by at 08/07/2025943 Acceptance, E, NR by MB at 08/04/2025 1308 User Amor Initials Effective Dates Name Provider Type Discipline 05/03/25 - Desiree Shearer PTA Physical Therapist Diver Assistant PT MB 03/15/25 - Norma Huitron PT Physical Therapist PT PT Recommendation and Plan Recommended discharge disposition is based on the functional assessment performed by PT/OT/Speech therapy (as applicable) and may not reflect the medical necessity determined by your provider or services covered by an individual patient's insurance plan or patient resource. Progress: improving Outcome Evaluation: Patient took 4 steps bed>recliner with min/mod assist x2 and rolling walker for support, took seated rest break then ambulated 4 steps forward with min/mod assist x1, cues for step sequencing and maintaining heel WB, assist to control walker, recliner brought up for safety. Further mobility limited by weakness, balance deficits, fatigue and pain. Patient completed B UE/LE exercises at EOB with cues for technique. Recommend SNF at D/C for best functional outcome when medically appropriate. Time Calculation: PT Charges Row Name 08/07/25943 Time Calculation Start Time 0843 - PT Received On 08/07/25 - PT Goal Re-Cert Due Date 08/14/25 - Timed Charges 63452 - PT Therapeutic Exercise Minutes 10 - 10703 - Gait Training Minutes 13 - Total Minutes Timed Charges Total Minutes 23 - Total Minutes 23 - User Amor (r) = Recorded By, (t) = Taken By, (c) = Cosigned By Initials Name Provider Type Desiree Shearer PTA Physical Therapist Diver Assistant Therapy Charges for Today Code Description Service Date Service Provider Modifiers Qty 33864677475 HC PT THER PROC EA 15 MIN 08/07/2025 Desiree Shearer PTA GP 1 [id number] HC GAIT TRAINING EA 15 MIN 08/07/2025 Desiree Shearer PTA GP 1 PT G-Codes Outcome Measure Options: AM-PAC 6 Clicks Basic Mobility (PT) AM-PAC 6 Clicks Score (PT): 12 AM-PAC 6 Clicks Score (OT): 14 Desiree Shearer PTA 08/07/2025 * Case Management/Social Work - Rani Pereira RN - 08/05/2025 2:14 PM EDT Continued Stay Note [facility] Patient Name: Hattie Santos Today's Date: 08/05/2025 Admit Date: 07/31/2025 Plan: update Discharge Plan Row Name 08/05/25 1408 Plan Plan update Patient/Family in Agreement with Plan yes Plan Comments Spoke with patient and daughter at bedside regarding discharge plan and discussed PT recommendations for rehab, daughter reports that they are more interested in going home with if at all possible. CM provided Patient Choice list to consider if open to rehab. No other needs verbalized. CM following. Patient discharge plan is ongoing. Final Discharge Disposition Code 06 - home with home health care Discharge Codes No documentation. Expected Discharge Date and Time Expected Discharge Date Expected Discharge Time Aug 09, 2025 Rani Pereira RN * Therapy Evaluation - Hailey Barrios OT - 08/04/2025 9:50 AM EDT Images from the original note were not included. Patient Name: Hattie Santos : 1940 Today's Date: 08/04/2025 Admit Date: 07/31/2025 Visit Dx: ICD-10-CM ICD-9-CM 1. Critical limb ischemia of left lower extremity I70.222 440.22 2. Claudication I73.9 443.9 3. 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 Peripheral artery disease I73.9 443.9 Problem List[1] Past Medical History: Diagnosis Date Asthma Hypertension Peripheral vascular disease History reviewed. No pertinent surgical history. General Information Row Name 08/04/25 1100 OT Time and Intention Document Type evaluation -KF Mode of Treatment occupational therapy;co-treatment -KF Row Name 08/04/25 1100 General Information Patient Profile Reviewed yes -KF Prior Level of Function independent:;all household mobility;bed mobility;ADL's Pt was completely independent without use of AD at beginning of Jun. Since pt has had increased LLE pain resulting in pt using RWx and eventually being assisted in transfers to wheelchair due to inability to weightbear.-KF Existing Precautions/Restrictions fall;other (see comments) messaged regarding WBing status, awaiting answer- PT provided offloading shoe, presumed heel WB for session -KF Barriers to Rehab medically complex;previous functional deficit;cognitive status -KF Row Name 08/04/25 1100 Living Environment Current Living Arrangements home -KF People in Home child(dustin), adult;other (see comments) son and daughter -KF Row Name 08/04/25 1100 Home Main Entrance Number of Stairs, Main Entrance other (see comments) ramp + 1 step -KF Stair Railings, Main Entrance none -KF Row Name 08/04/25 1100 Stairs Within Home, Primary Number of Stairs, Within Home, Primary none -KF Row Name 08/04/25 1100 Cognition Orientation Status (Cognition) oriented to;person;place;disoriented to;time;other (see comments) Pt's daughter states this is baseline. -KF Row Name 08/04/25 1100 Safety Issues/Impairments Affecting Functional Mobility Safety Issues Affecting Function (Mobility) awareness of need for assistance;insight into deficits/self-awareness;judgment;problem-solving;safety precaution awareness;safety precautions follow-through/compliance;sequencing abilities -KF Impairments Affecting Function (Mobility) balance;cognition;endurance/activity tolerance;coordination;sensation/sensory awareness;motor control;pain;postural/trunk control;range of motion (ROM);strength -KF Cognitive Impairments, Mobility Safety/Performance awareness, need for assistance;insight into defic its/self-awareness;judgment;problem-solving/reasoning;safety precaution awareness;safety precautionfollow-through;sequencing abilities -KF User Amor (r) = Recorded By, (t) = Taken By, (c) = Cosigned By Initials Name Provider Type KF Hailey Barrios OT Occupational Therapist Mobility/ADL's Row Name 08/04/25 110 Bed Mobility Bed Mobility supine-sit -KF Supine-Sit [place] (Bed Mobility) minimum assist (75% patient effort);1 person assist;verbal cues -KF Assistive Device (Bed Mobility) bed rails;head of bed elevated;repositioning sheet -KF Comment, (Bed Mobility) Increased time needed. Cues for sequence with assistance given at trunk andBLEs. - Row Name 08/04/25 110 Transfers Transfers sit-stand transfer;stand-sit transfer;toilet transfer - Row Name 08/04/25 110 Sit-Stand Transfer Sit-Stand [place] (Transfers) minimum assist (75% patient effort);2 person assist;verbal cues -KF Assistive Device (Sit-Stand Transfers) walker, front-wheeled -KF Comment, (Sit-Stand Transfer) x1 from EOB, x1 from BSC for seated rest break; cues for hand placement and maintaining LLE heel WB -KF Row Name 08/04/25 110 Stand-Sit Transfer Stand-Sit [place] (Transfers) minimum assist (75% patient effort);2 person assist;verbal cues -KF Assistive Device (Stand-Sit Transfers) walker, front-wheeled -KF Row Name 08/04/25 110 Toilet Transfer Type (Toilet Transfer) sit-stand;stand-sit -KF [place] Level (Toilet Transfer) minimum assist (75% patient effort);2 person assist;verbal cues -KF Assistive Device (Toilet Transfer) walker, front-wheeled;commode, bedside without drop arms - Row Name 08/04/25 110 Functional Mobility Functional Mobility- Ind. Level minimum assist (75% patient effort);2 person assist required;verbalcues required -KF Functional Mobility- Device walker, front-wheeled -KF Functional Mobility-Distance (Feet) -- <household distance (around bed to chair, x1 seated rest break taken) -KF Functional Mobility- Comment Pt with limited ability to flex L knee and dorsiflex at L ankle due toincisional pain and dressings. Frequent cues for WB status, upright posture, and RWx management. -KF Patient was able to Ambulate yes - Row Name 08/04/25 110 Activities of Daily Living BADL Assessment/Intervention lower body dressing;feeding - Row Name 08/04/25 110 Mobility Extremity Weight-bearing Status other (see comments) pending MD clarification, presumed heel WB in post of shoe - Row Name 08/04/25 110 Lower Body Dressing Assessment/Training [place] Level (Lower Body Dressing) don;socks;shoes/slippers;dependent (less than 25% patient effort) - Position (Lower Body Dressing) edge of bed sitting - Row Name 08/04/25 110 Self-Feeding Assessment/Training [place] Level (Feeding) liquids to mouth;independent - Position (Feeding) supported sitting - User Amor (r) = Recorded By, (t) = Taken By, (c) = Cosigned By Initials Name Provider Type KF Hailey Barrios OT Occupational Therapist Obj/Interventions Row Name 08/04/25 110 Sensory Assessment (Somatosensory) Sensory Assessment (Somatosensory) UE sensation intact - Row Name 08/04/25 110 Vision Assessment/Intervention Visual Impairment/Limitations WFL - Row Name 08/04/25 110 Range of Motion Comprehensive General Range of Motion bilateral upper extremity ROM WFL - Row Name 08/04/25 110 Strength Comprehensive (MMT) General Manual Muscle Testing (MMT) Assessment upper extremity strength deficits identified - Comment, General Manual Muscle Testing (MMT) Assessment BUE grossly 3+/5 - Row Name 08/04/25 110 Motor Skills Motor Skills functional endurance -KF Functional Endurance Fair, below reported baseline - Row Name 08/04/25 110 Balance Balance Assessment sitting static balance;sitting dynamic balance;standing static balance;standing dynamic balance -KF Static Sitting Balance standby assist -KF Dynamic Sitting Balance contact guard -KF Position, Sitting Balance unsupported;sitting in chair;sitting edge of bed;other (see comments) BSCfor seated rest -KF Static Standing Balance minimal assist;2-person assist -KF Dynamic Standing Balance minimal assist;2-person assist -KF Position/Device Used, Standing Balance supported;walker, front-wheeled -KF Balance Interventions sitting;standing;sit to stand;supported;static;dynamic;occupation based/functional task -KF User Amor (r) = Recorded By, (t) = Taken By, (c) = Cosigned By Initials Name Provider Type KF Hailey Barrios OT Occupational Therapist Goals/Plan Row Name 08/04/25 110 Transfer Goal 1 (OT) Activity/Assistive Device (Transfer Goal 1, OT) [id number];commode -KF [place] Level/Cues Needed (Transfer Goal 1, OT) contact guard required -KF Time Frame (Transfer Goal 1, OT) longterm goal (LTG);10 days -KF Progress/Outcome (Transfer Goal 1, OT) new goal -KF Row Name 08/04/25 110 Dressing Goal 1 (OT) Activity/Device (Dressing Goal 1, OT) lower body dressing -KF [place]/Cues Needed (Dressing Goal 1, OT) minimum assist (75% or more patient effort) -KF Time Frame (Dressing Goal 1, OT) short term goal (STG);5 days -KF Strategies/Barriers (Dressing Goal 1, OT) L offloading shoe -KF Progress/Outcome (Dressing Goal 1, OT) new goal -KF Row Name 08/04/25 110 Toileting Goal 1 (OT) Activity/Device (Toileting Goal 1, OT) adjust/manage clothing;perform perineal hygiene -KF [place] Level/Cues Needed (Toileting Goal 1, OT) set-up required -KF Time Frame (Toileting Goal 1, OT) longterm goal (LTG);10 days -KF Progress/Outcome (Toileting Goal 1, OT) new goal -KF Row Name 08/04/25 110 Therapy Assessment/Plan (OT) Planned Therapy Interventions (OT) activity tolerance training;adaptive equipment training;BADL retraining;functional balance retraining;occupation/activity based interventions;patient/caregiver educa tion/training;ROM/therapeutic exercise;strengthening exercise;transfer/mobility retraining -KF User Amor (r) = Recorded By, (t) = Taken By, (c) = Cosigned By Initials Name Provider Type KF Hailey Barrios, BERNARD Occupational Therapist Clinical Impression Row Name 08/04/25 1106 Pain Assessment Pretreatment Pain Rating 0/10 - no pain -KF Posttreatment Pain Rating 0/10 - no pain -KF Pre/Posttreatment Pain Comment Pt reported LLE pain during mobility, but this resolved with seated rest and elevation. - Row Name 08/04/25 1106 Plan of Care Review Plan of Care Reviewed With patient;grandchild(dustin) -KF Outcome Evaluation OT evaluation completed. The pt presents below baseline with generalized weakness, acute LLE incisional pain impacting mobility, balance deficits, and decreased activity tolerance warranting continued IP OT services. The pt ambulated around the bed to the chair using a RWx with Amisha x2, x1 seated rest break taken. Pt with limited L knee flexion and L dorsiflexion impacting mobility. Awaiting clarification regarding LLE WB status, messaged, presumed heel WB in offloading shoe for session. Recommend a d/c to SNF when medically ready. - Row Name 08/04/25 1106 Therapy Assessment/Plan (OT) Patient/Family Therapy Goal Statement (OT) Restore PLOF -KF Rehab Potential (OT) good -KF Criteria for Skilled Therapeutic Interventions Met (OT) yes;skilled treatment is necessary -KF Therapy Frequency (OT) daily -KF Predicted Duration of Therapy Intervention (OT) 10 days -KF Row Name 08/04/25 1106 Therapy Plan Review/Discharge Plan (OT) Anticipated Discharge Disposition (OT) [place] [facility] - Row Name 08/04/25 1106 Vital Signs Pre Systolic BP Rehab 123 -KF Pre Treatment Diastolic BP 52 -KF Post Systolic BP Rehab 130 -KF Post Treatment Diastolic BP 54 -KF Pretreatment Heart Rate (beats/min) 71 -KF Posttreatment Heart Rate (beats/min) 75 -KF Pre SpO2 (%) 94 -KF O2 Delivery Pre Treatment room air -KF Post SpO2 (%) 97 -KF O2 Delivery Post Treatment room air -KF Pre Patient Position Supine -KF Intra Patient Position Standing -KF Post Patient Position Sitting -KF Row Name 08/04/25 1106 Positioning and Restraints Pre-Treatment Position in bed -KF Post Treatment Position chair -KF In Chair notified nsg;reclined;call light within reach;encouraged to call for assist;exit alarm on;with family/caregiver;waffle cushion;legs elevated - User Amor (r) = Recorded By, (t) = Taken By, (c) = Cosigned By Initials Name Provider Type Hailey Tong OT Occupational Therapist Outcome Measures Row Name 08/04/25 1109 How much help from another is currently needed... Putting on and taking off regular lower body clothing? 1 -KF Bathing (including washing, rinsing, and drying) 2 -KF Toileting (which includes using toilet bed lemus or urinal) 2 -KF Putting on and taking off regular upper body clothing 3 -KF Taking care of personal grooming (such as brushing teeth) 3 -KF Eating meals 3 -KF AM-PAC 6 Clicks Score (OT) 14 -KF Row Name 08/04/25 110 Functional Assessment Outcome Measure Options AM-PAC 6 Clicks Daily Activity (OT) - User Amor (r) = Recorded By, (t) = Taken By, (c) = Cosigned By Initials Name Provider Type Hailey Tong OT Occupational Therapist Occupational Therapy Education Title: PT OT RETENTION SPECIALIST Therapies (In Progress) Topic: Occupational Therapy (In Progress) Point: ADL training (In Progress) Learning Progress Summary Patient Acceptance, E,TB, NR by at 08/04/2025 0950 Point: Precautions (In Progress) Learning Progress Summary Patient Acceptance, E,TB, NR by at 08/04/2025 0950 Point: Body mechanics (In Progress) Learning Progress Summary Patient Acceptance, E,TB, NR by at 08/04/2025 0950 User Amor Initials Effective Dates Name Provider Type [facility] 05/25/23 - Hailey Barrios OT Occupational Therapist OT OT Recommendation and Plan Recommended discharge disposition is based on the functional assessment performed by PT/OT/Speech therapy (as applicable) and may not reflect the medical necessity determined by your provider or services covered by an individual patient's insurance plan or patient resource. Planned Therapy Interventions (OT): activity tolerance training, adaptive equipment training, BADL retraining, functional balance retraining, occupation/activity based interventions, patient/caregiver education/training, ROM/therapeutic exercise, strengthening exercise, transfer/mobility retraining Therapy Frequency (OT): daily Plan of Care Review Plan of Care Reviewed With: patient, grandchild(dustin) Outcome Evaluation: OT evaluation completed. The pt presents below baseline with generalized weakness, acute LLE incisional pain impacting mobility, balance deficits, and decreased activity tolerancewarranting continued IP OT services. The pt ambulated around the bed to the chair using a RWx with Amisha x2, x1 seated rest break taken. Pt with limited L knee flexion and L dorsiflexion impacting mobility. Awaiting clarification regarding LLE WB status, messaged, presumed heel WB in offloading shoe for session. Recommend a d/c to SNF when medically ready. Time Calculation: Evaluation Complexity (OT) Review Occupational Profile/Medical/Therapy History Complexity: expanded/moderate complexity Assessment, Occupational Performance/Identification of Deficit Complexity: 3-5 performance deficits Clinical Decision Making Complexity (OT): detailed assessment/moderate complexity Overall Complexity of Evaluation (OT): moderate complexity Time Calculation- OT Row Name 08/04/25 1110 Time Calculation- OT OT Start Time 0950 -KF OT Received On 08/04/25 -KF OT Goal Re-Cert Due Date 08/14/25 -KF Untimed Charges OT Eval/Re-eval Minutes 48 -KF Total Minutes Untimed Charges Total Minutes 48 -KF Total Minutes 48 -KF User Amor (r) = Recorded By, (t) = Taken By, (c) = Cosigned By Initials Name Provider Type KF Hailey Barrios OT Occupational Therapist Therapy Charges for Today Code Description Service Date Service Provider Modifiers Qty [id number] OT EVAL MOD COMPLEXITY 4 08/04/2025 Hailey Barrios OT GO 1 Hailey Barrios OT 08/04/2025 [1] Patient Active Problem List Diagnosis PAD (peripheral artery disease) Critical limb ischemia of left lower extremity Type 2 diabetes mellitus with diabetic neuropathy, without long-term current use of insulin Primary hypertension Mild intermittent asthma without complication Presence of cardiac pacemaker Peripheral artery disease Claudication Toe necrosis * Therapy Evaluation - Norma Huitron, PT - 08/04/2025 8:26 AM EDT Images from the original note were not included. Patient Name: Hattie Santos : 1940 Today's Date: 08/04/2025 Admit Date: 07/31/2025 Visit Dx: ICD-10-CM ICD-9-CM 1. Critical limb ischemia of left lower extremity I70.222 440.22 2. Claudication I73.9 443.9 3. 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 Peripheral artery disease I73.9 443.9 Problem List[1] Past Medical History: Diagnosis Date Asthma Hypertension Peripheral vascular disease History reviewed. No pertinent surgical history. General Information Row Name 08/04/25 1242 Physical Therapy Time and Intention Document Type evaluation -MB Mode of Treatment physical therapy - Row Name 08/04/25 1242 General Information Patient Profile Reviewed yes Patient agreeable to PT initial evaluation. -MB Prior Level of Function all household mobility;gait;transfer;bed mobility;ADL's Patient was completely independent without use of AD at beginning of Jun. Since that time patient has had increased LLE pain resulting in patient using RW and eventually being assisted in transfers to wheelchair due toinability to weightbear. -MB Existing Precautions/Restrictions fall;other (see comments) MD messaged regarding WBing status, awaiting answer- provided offloading shoe, presumed heel WB for session -MB Barriers to Rehab medically complex;previous functional deficit;cognitive status - Row Name 08/04/25 1242 Living Environment Current Living Arrangements home -MB People in Home child(dustin), adult;other (see comments) son and daughter - Row Name 08/04/25 1242 Home Main Entrance Number of Stairs, Main Entrance other (see comments) ramp + 1 step -MB Stair Railings, Main Entrance none - Row Name 08/04/25 1242 Stairs Within Home, Primary Number of Stairs, Within Home, Primary none - Row Name 08/04/25 1242 Cognition Orientation Status (Cognition) oriented to;person;place;disoriented to;time per patient's daughter patient has dementia - Row Name 08/04/25 1242 Safety Issues/Impairments Affecting Functional Mobility Safety Issues Affecting Function (Mobility) awareness of need for assistance;insight into deficits/self-awareness;judgment;positioning of assistive device;problem-solving;safety precaution awareness;safety precautions follow-through/compliance;sequencing abilities -MB Impairments Affecting Function (Mobility) balance;cognition;endurance/activity tolerance;sensation/sensory awareness;pain;postural/trunk control;range of motion (ROM);strength -MB Cognitive Impairments, Mobility Safety/Performance awareness, need for assistance;insight into defic its/self-awareness;judgment;problem-solving/reasoning;safety precaution awareness;safety precautionfollow-through;sequencing abilities -MB User Amor (r) = Recorded By, (t) = Taken By, (c) = Cosigned By Initials Name Provider Type Norma Mayers, PT Physical Therapist Mobility Row Name 08/04/25 1246 Bed Mobility Bed Mobility supine-sit;scooting/bridging -MB Scooting/Bridging [place] (Bed Mobility) 1 person assist;verbal cues to scoot anteriorly toward EOB in seated position -MB Supine-Sit [place] (Bed Mobility) minimum assist (75% patient effort);1 person assist;verbal cues to sit up toward left side of bed - Assistive Device (Bed Mobility) bed rails;head of bed elevated;repositioning sheet -MB Comment, (Bed Mobility) Patient requiring increased time and verbal cues for initiation and sequencing of activity. Patient requiring assist with both trunk elevation and BLE management. - Row Name 08/04/25 1246 Sit-Stand Transfer Sit-Stand [place] (Transfers) minimum assist (75% patient effort);2 person assist;verbal cues -MB Assistive Device (Sit-Stand Transfers) walker, front-wheeled -MB Comment, (Sit-Stand Transfer) Patient moved to stand x 2 reps during session (once from EOB and once from BSC). Patient requiring verbal cues for proper hand placement and LLE heel weight-bearing. - Row Name 08/04/25 1246 Gait/Stairs (Locomotion) [place] Level (Gait) minimum assist (75% patient effort);2 person assist;verbal cues -MB Assistive Device (Gait) walker, front-wheeled -MB Patient was able to Ambulate yes -MB Distance in Feet (Gait) 10 + 5 feet with seated therapeutic rest required between trials secondary to fatigue and weakness -MB Deviations/Abnormal Patterns (Gait) dennise decreased;festinating/shuffling;gait speed decreased -MB Left Sided Gait Deviations forward flexed posture;heel strike decreased increased knee extension -MB Comment, (Gait/Stairs) Patient ambulated 10 feet + 5 feet with Amisha x 2 using RW. Patient ambulating via step to gait pattern with verbal cues provided for sequencing of gait as well as maintenance of heel weight-bearing. Patient with decreased L knee extension and DF with patient maintaining LLE forward throughout ambulation. Patient with forward flexed posture and downward gaze with patient maintaining RW too far anteriorly and assist for RW management required. - Row Name 08/04/25 1246 Mobility Extremity Weight-bearing Status other (see comments) pending MD clarification, presumed heel WB in post op shoe - User Amor (r) = Recorded By, (t) = Taken By, (c) = Cosigned By Initials Name Provider Type Norma Mayers, PT Physical Therapist Obj/Interventions Row Name 08/04/25 1252 Range of Motion Comprehensive Comment, General Range of Motion Right LE ROM WFL. Patient only able to achieve ~70 degrees of leftknee flexion while seated at EOB. Patient also plantarflexed ~5 degrees, unable to achieve neutral position. - Row Name 08/04/25 1252 Strength Comprehensive (MMT) Comment, General Manual Muscle Testing (MMT) Assessment Right LE grossly 4/5. Left LE grossly 2+/5.- Row Name 08/04/25 1252 Advanced Stepping/Walking Interventions Stepping/Walking Interventions backward walking - Row Name 08/04/25 1252 Balance Balance Assessment sitting static balance;sitting dynamic balance;standing static balance;standing dynamic balance - Static Sitting Balance standby assist - Dynamic Sitting Balance contact guard - Position, Sitting Balance unsupported;sitting in chair;sitting edge of bed;other (see comments) seated on BSC -MB Static Standing Balance minimal assist;2-person assist -MB Dynamic Standing Balance minimal assist - Position/Device Used, Standing Balance supported;walker, front-wheeled - Row Name 08/04/25 1252 Sensory Assessment (Somatosensory) Sensory Assessment Patient reports decreased sensation in left LE. - User Amor (r) = Recorded By, (t) = Taken By, (c) = Cosigned By Initials Name Provider Type Norma Mayers, PT Physical Therapist Goals/Plan Row Name 08/04/25 3371 Bed Mobility Goal 1 (PT) Activity/Assistive Device (Bed Mobility Goal 1, PT) bed mobility activities, all -MB [place] Level/Cues Needed (Bed Mobility Goal 1, PT) standby assist - Time Frame (Bed Mobility Goal 1, PT) short term goal (STG);1 week - Row Name 08/04/25 1303 Transfer Goal 1 (PT) Activity/Assistive Device (Transfer Goal 1, PT) [id number];walker, rolling -MB [place] Level/Cues Needed (Transfer Goal 1, PT) standby assist -MB Time Frame (Transfer Goal 1, PT) longterm goal (LTG);2 weeks -MB Row Name 08/04/25 130 Gait Training Goal 1 (PT) Activity/Assistive Device (Gait Training Goal 1, PT) gait (walking locomotion);walker, rolling -MB [place] Level (Gait Training Goal 1, PT) standby assist -MB Distance (Gait Training Goal 1, PT) 50 feet -MB Time Frame (Gait Training Goal 1, PT) longterm goal (LTG);2 weeks -MB Row Name 08/04/25 1306 Stairs Goal 1 (PT) Activity/Assistive Device (Stairs Goal 1, PT) ascending stairs;descending stairs -MB [place] Level/Cues Needed (Stairs Goal 1, PT) minimum assist (75% or more patient effort) -MB Number of Stairs (Stairs Goal 1, PT) 1 step -MB Time Frame (Stairs Goal 1, PT) termite control technician goal (LTG);2 weeks -MB Row Name 08/04/25 8593 Therapy Assessment/Plan (PT) Planned Therapy Interventions (PT) balance training;bed mobility training;gait training;home exercise program;neuromuscular re-education;orthotic fitting/training;patient/family education;postural re-education;ROM (range of motion);stair training;strengthening;stretching;transfer training;wheelchair management/propulsion training - User Amor (r) = Recorded By, (t) = Taken By, (c) = Cosigned By Initials Name Provider Type Norma Mayers, PT Physical Therapist Clinical Impression Row Name 08/04/25 1252 Pain Pretreatment Pain Rating 0/10 - no pain -MB Posttreatment Pain Rating 0/10 - no pain - Row Name 08/04/25 1256 Plan of Care Review Plan of Care Reviewed With patient;child - Outcome Evaluation Patient participated in PT initial evaluation. Patient presents with decreased strength, decreased ROM, decreased endurance, decreased sensation, impaired gait mechanics, and decreased balance that overall impacts functional mobility and independence. Patient requiring Amisha x 2 via RW to stand and ambulate short distance around bed with seated rest required. Patient would continue to benefit from skilled PT services at this time. Recommend patient discharge to a SNF when medically appropriate for discharge. -MB Row Name 08/04/25 1256 Therapy Assessment/Plan (PT) Patient/Family Therapy Goals Statement (PT) To get better. -MB Rehab Potential (PT) good -MB Criteria for Skilled Interventions Met (PT) yes;meets criteria;skilled treatment is necessary -MB Therapy Frequency (PT) daily -MB Predicted Duration of Therapy Intervention (PT) 2 weeks -MB Row Name 08/04/25 1257 Vital Signs Pre Systolic BP Rehab 123 -MB Pre Treatment Diastolic BP 52 -MB Post Systolic BP Rehab 130 -MB Post Treatment Diastolic BP 54 -MB Pretreatment Heart Rate (beats/min) 72 -MB Posttreatment Heart Rate (beats/min) 75 -MB Pre SpO2 (%) 97 -MB O2 Delivery Pre Treatment room air -MB Post SpO2 (%) 97 -MB O2 Delivery Post Treatment room air -MB Pre Patient Position Supine -MB Post Patient Position Sitting -MB Row Name 08/04/25 1252 Positioning and Restraints Pre-Treatment Position in bed -MB Post Treatment Position chair -MB In Chair notified nsg;reclined;sitting;call light within reach;encouraged to call for assist;exit alarm on;with family/caregiver;waffle cushion;legs elevated;heels elevated -MB User Amor (r) = Recorded By, (t) = Taken By, (c) = Cosigned By Initials Name Provider Type Norma Mayers, PT Physical Therapist Outcome Measures Row Name 08/04/25 1435 How much help from another person do you currently need... Turning from your back to your side while in flat bed without using bedrails? 3 -MB Moving from lying on back to sitting on the side of a flat bed without bedrails? 3 -MB Moving to and from a bed to a chair (including a wheelchair)? 3 -MB Standing up from a chair using your arms (e.g., wheelchair, bedside chair)? 3 -MB Climbing 3-5 steps with a railing? 1 -MB To walk in hospital room? 3 -MB AM-PAC 6 Clicks Score (PT) 16 -MB Highest Level of Mobility Goal Stand (1 or More Minutes)-5 -MB Row Name 10/19/130708/04/251108 Functional Assessment Outcome Measure Options AM-PAC 6 Clicks Basic Mobility (PT) -SHANNAN AM-PAC 6 Clicks Daily Activity (OT)-DIONISIO User Amor (r) = Recorded By, (t) = Taken By, (c) = Cosigned By Initials Name Provider Type KF Hailey Barrios, OT Occupational Therapist Norma Mayers, PT Physical Therapist Physical Therapy Education Title: PT OT RETENTION SPECIALIST Therapies (In Progress) Topic: Physical Therapy (In Progress) Point: Mobility training (In Progress) Learning Progress Summary Patient Acceptance, E, NR by SHANNAN at 08/04/2025 1308 Point: Home exercise program (Not Started) Learner Progress: Not documented in this visit. Point: Body mechanics (In Progress) Learning Progress Summary Patient Acceptance, E, NR by SHANNAN at 08/04/2025 130 Point: Precautions (In Progress) Learning Progress Summary Patient Acceptance, E, NR by SHANNAN at 08/04/2025 1308 User Amor Initials Effective Dates Name Provider Type Discipline SHANNAN 03/15/25 - Norma Huitron, PT Physical Therapist PT PT Recommendation and Plan Recommended discharge disposition is based on the functional assessment performed by PT/OT/Speech therapy (as applicable) and may not reflect the medical necessity determined by your provider or services covered by an individual patient's insurance plan or patient resource. Planned Therapy Interventions (PT): balance training, bed mobility training, gait training, home exercise program, neuromuscular re-education, orthotic fitting/training, patient/family education, postural re-education, ROM (range of motion), stair training, strengthening, stretching, transfer training, wheelchair management/propulsion training Therapy Frequency (PT): daily Outcome Evaluation: Patient participated in PT initial evaluation. Patient presents with decreased strength, decreased ROM, decreased endurance, decreased sensation, impaired gait mechanics, and decreased balance that overall impacts functional mobility and independence. Patient requiring Amisha x 2 via RW to stand and ambulate short distance around bed with seated rest required. Patient would continue to benefit from skilled PT services at this time. Recommend patient discharge to a SNF when medically appropriate for discharge. Time Calculation: PT Evaluation Complexity History, PT Evaluation Complexity: 1-2 personal factors and/or comorbidities Examination of Body Systems (PT Eval Complexity): total of 3 or more elements Clinical Presentation (PT Evaluation Complexity): evolving Clinical Decision Making (PT Evaluation Complexity): moderate complexity Overall Complexity (PT Evaluation Complexity): moderate complexity PT Charges Row Name 08/04/25 1309 Time Calculation Start Time 0826 -MB PT Received On 08/04/25 -MB PT Goal Re-Cert Due Date 08/14/25 -MB Untimed Charges PT Eval/Re-eval Minutes 50 -MB Total Minutes Untimed Charges Total Minutes 50 -MB Total Minutes 50 -MB User Amor (r) = Recorded By, (t) = Taken By, (c) = Cosigned By Initials Name Provider Type Norma Mayers, PT Physical Therapist Therapy Charges for Today Code Description Service Date Service Provider Modifiers Qty [id number] HC PT EVAL MOD COMPLEXITY 4 08/04/2025 Norma Huitron, PT GP 1 PT G-Codes Outcome Measure Options: AM-PAC 6 Clicks Basic Mobility (PT) AM-PAC 6 Clicks Score (PT): 16 AM-PAC 6 Clicks Score (OT): 14 PT Discharge Summary Anticipated Discharge Disposition (PT): [facility] Noram Huitron PT 08/04/2025 [1] Patient Active Problem List Diagnosis PAD (peripheral artery disease) Critical limb ischemia of left lower extremity Type 2 diabetes mellitus with diabetic neuropathy, without long-term current use of insulin Primary hypertension Mild intermittent asthma without complication Presence of cardiac pacemaker Peripheral artery disease Claudication Toe necrosis * Case Management/Social Work - Marcela Herrera RN - 08/02/2025 12:40 PM EDT Continued Stay Note Maribel Patient Name: Hattie Santos Today's Date: 08/02/2025 Admit Date: 07/31/2025 Plan: Home Discharge Plan Row Name 08/02/25 1236 Plan Plan Home Patient/Family in Agreement with Plan yes Plan Comments Ms. Santos is not being discharged today, 08/02/25. Ms. Santos is confused. Her granddaughter Afua Melton is POA. is on a heparin drip and she is to have a LEFT lower extremity femoral-popliteal bypass today. CM will continue to follow for medical readiness and will assist with any discharge needs as indicated. Final Discharge Disposition Code 01 - home or self-care Discharge Codes No documentation. Expected Discharge Date and Time Expected Discharge Date Expected Discharge Time Aug 09, 2025 Marcela Herrera, RN * Case Management/Social Work - Marcela Herrera, RN - 08/01/2025 4:27 PM EDT Discharge Planning Assessment [facility] Patient Name: Hattie Santos Today's Date: 08/01/2025 Admit Date: 07/31/2025 Plan: Home Discharge Needs Assessment Row Name 08/01/25 1618 Living Environment People in Home child(dustin), adult Current Living Arrangements home Primary Care Provided by child(dustin) Provides Primary Care For no one, unable/limited ability to care for self Family Caregiver if Needed child(dustin), adult Quality of Family Relationships helpful;involved;supportive Able to Return to Prior Arrangements yes Transition Planning Patient/Family Anticipates Transition to home with family Patient/Family Anticipated Services at Transition telephonic nurse case managersr. media manager Anticipated family or friend will provide Discharge Needs Assessment Equipment Currently Used at Home glucometer;nebulizer Discharge Plan Row Name 08/01/25 9131 Plan Plan Home Patient/Family in Agreement with Plan yes Plan Comments Ms. Santos is confused. Information taken from her granddaughter/POA Afua Melton. Ms. Santos lives in [facility]. Her adult son and adult daughter live with her. Ms. Santos has [facility] Medicare insurance. She uses [facility] to get her prescriptions filled. Her PCP is Alexis Anand MD. Prior to admission, she needed assistance with ADL's. She has a nebulizer and glucometer at home. POA states Ms. Santos's nebulizer is broken and needs a new one. She is not current with home health. The plan for Ms. Santos is home at discharge. Family will transport her by family car. CM will continue to follow for medical readiness and will assist with any discharge needs as indicated. Final Discharge Disposition Code 01 - home or self-care Continued Care and Services - Admitted Since 07/31/2025 No active coordination exists. Expected Discharge Date and Time Expected Discharge Date Expected Discharge Time Aug 09, 2025 Demographic Summary Row Name 08/01/25 1617 General Information Admission Type inpatient Arrived From emergency department Referral Source admission list Reason for Consult discharge planning Preferred Language Tunisian Contact Information Permission Granted to Share Info With telephonic nurse case managermining manager Information Obtained for telephonic nurse case managerpatient safety manager Status Row Name 08/01/25 1617 Functional Status Usual Activity Tolerance fair Current Activity Tolerance fair Functional Status, IADL Medications assistive person Meal Preparation assistive person Housekeeping assistive person Laundry assistive person Shopping assistive person Psychosocial No documentation. Abuse/Neglect No documentation. Legal No documentation. Substance Abuse No documentation. Patient Forms No documentation. Marcela Herrera RN documented in this encounter Plan of Treatment Scheduled Orders Name Type Priority Associated Diagnoses Orde r Schedule Cardiology Scan Cardiac Services Onc e for 1 Occurrences starting 08/08/2025 until 08/08/2025 Scheduled Referrals Name Type Priority Associated Diagnoses Order Schedule Ambulatory Referral to Home Health Outpatient Referral Routine Critical limb ischemia of left lower extremity Ordered: 08/07/2025 Ambulatory Referral to Urology Outpatient Referral Routine Acute urinary retention Ordered: 08/07/2025 Ambulatory Referral to Home Health Outpatient Referral Routine Critical limb ischemia of left lower extremity Ordered: 08/07/2025 documented as of this encounter Procedures Procedure Name Priority Date/Time Associated Diagnosis Comments CBC WITH AUTO DIFFERENTIAL Routine 08/07/2025 6:48 AM EDT CBC AND DIFFERENTIAL Routine 08/07/2025 6:48 AM EDT CBC (NO DIFF) Routine 08/06/2025 10:56 AM EDT BASIC METABOLIC PANEL Routine 08/06/2025 10:56 AM EDT HEPARIN ANTI XA Timed 08/05/2025 12:27 PM EDT HEPARIN ANTI XA Timed 08/05/2025 4:32 AM EDT CBC WITH AUTO DIFFERENTIAL Routine 08/05/2025 4:32 AM EDT CBC AND DIFFERENTIAL Routine 08/05/2025 4:32 AM EDT BASIC METABOLIC PANEL Routine 08/05/2025 4:32 AM EDT HEPARIN ANTI XA Timed 08/04/2025 9:18 PM EDT CBC WITH AUTO DIFFERENTIAL Routine 08/04/2025 4:12 AM EDT CBC AND DIFFERENTIAL Routine 08/04/2025 4:12 AM EDT PHOSPHORUS Routine 08/04/2025 4:12 AM EDT MAGNESIUM Routine 08/04/2025 4:12 AM EDT COMPREHENSIVE METABOLIC PANEL Routine 08/04/2025 4:12 AM EDT SCANNED - TELEMETRY 08/03/2025 1 1:08 PM EDT CBC WITH AUTO DIFFERENTIAL Routine 08/03/2025 4:34 AM EDT CBC AND DIFFERENTIAL Routine 08/03/2025 4:34 AM EDT BASIC METABOLIC PANEL Routine 08/03/2025 4:34 AM EDT SCANNED - TELEMETRY 08/02/2025 7 :05 PM EDT WOUND OSTOMY EVAL AND TREAT Routine 08/02/2025 6:33 PM EDT TISSUE PATHOLOGY EXAM Routine 08/02/2025 3:46 PM EDT Peripheral artery disease Critical limb ischemia of left lower extremity AMPUTATION BELOW KNEE 08/02/2025 2:10 PM EDT Peripheral artery disease Critical limb ischemia of left lower extremity Special Needs He will need a PA to assist for this case, FIRST JUMANA WALTER FEMORAL POPLITEAL BYPASS 08/02/2025 2:10 PM EDT Peripheral artery disease Critical limb ischemia of left lower extremity Special Needs He will need a PA to assist for this case, FIRST JUMANA WALTER TYPE AND SCREEN STAT 08/02/2025 1:30 PM EDT APTT Timed 08/02/2025 3:29 AM EDT APTT Routine 08/01/2025 7:44 PM EDT APTT STAT 08/01/2025 10:12 AM EDT ABORH 2ND SPECIMEN VERIFICATION STAT 08/01/2025 7:23 AM EDT CBC WITH AUTO DIFFERENTIAL Routine 08/01/2025 7:23 AM EDT CBC AND DIFFERENTIAL Routine 08/01/2025 7:23 AM EDT BASIC METABOLIC PANEL Routine 08/01/2025 7:23 AM EDT WOUND OSTOMY EVAL AND TREAT Routine 08/01/2025 6:26 AM EDT APTT Routine 07/31/2025 10:52 PM EDT SCANNED - TELEMETRY 07/31/2025 4 :36 PM EDT HEPARIN ANTI XA STAT 07/31/2025 4:15 PM EDT APTT STAT 07/31/2025 4:15 PM EDT PROTIME-INR STAT 07/31/2025 4:15 PM EDT SCANNED - TELEMETRY 07/31/2025 3 :10 PM EDT WHEATLEY TOP STAT 07/31/2025 2:37 PM EDT GOLD TOP - SST STAT 07/31/2025 2:37 PM EDT EXTRA TUBES STAT 07/31/2025 2:37 PM EDT CBC WITH AUTO DIFFERENTIAL STAT 07/31/2025 2:37 PM EDT SEDIMENTATION RATE STAT 07/31/2025 2: 37 PM EDT C-REACTIVE PROTEIN STAT 07/31/2025 2: 37 PM EDT DIGOXIN LEVEL STAT 07/31/2025 2:37 PM EDT COMPREHENSIVE METABOLIC PANEL STAT 07/31/2025 2:37 PM EDT documented in this encounter Results * (ABNORMAL) CBC Auto Differential (08/07/2025 6:48 AM EDT) WBC 13.27(H) 3.40 - 10.80 10*3/mm3 08/07/2025 7:10 AM EDT [facility] RBC 3.12(L) 3.77 - 5.28 10*6/mm3 08/07/2025 7:10 AM EDT [facility] Hemoglobin 8.9(L) 12.0 - 15.9 g/dL 08/07/2025 7:10 AM EDT [facility] Hematocrit 28.3(L) 34.0 - 46.6 % 08/07/2025 7:10 AM EDT [facility] MCV 90.7 79.0 - 97.0 fL 08/07/2025 7:10 AM EDT [facility] MCH 28.5 26.6 - 33.0 pg 08/07/2025 7:10 AM EDT [facility] MCHC 31.4(L) 31.5 - 35.7 g/dL 08/07/2025 7:10 AM EDT [facility] RDW 12.7 12.3 - 15.4 % 08/07/2025 7:10 AM EDT [facility] RDW-SD 41.7 37.0 - 54.0 fl 08/07/2025 7:10 AM EDT [facility] MPV 8.7 6.0 - 12.0 fL 08/07/2025 7:10 AM EDT [facility] Platelets 475(H) 140 - 450 10*3/mm3 08/07/2025 7:10 AM EDT [facility] Neutrophil % 63.4 42.7 - 76.0 % 08/07/2025 7:10 AM EDT [facility] Lymphocyte % 21.8 19.6 - 45.3 % 08/07/2025 7:10 AM EDT [facility] Monocyte % 11.8 5.0 - 12.0 % 08/07/2025 7:10 AM [facility] Eosinophil % 2.3 0.3 - 6.2 % 08/07/2025 7:10 AM [facility] Basophil % 0.2 0.0 - 1.5 % 08/07/2025 7:10 AM [facility] Immature Grans % 0.5 0.0 - 0.5 % 08/07/2025 7:10 AM [facility] Neutrophils, Absolute 8.41(H) 1.70 - 7.00 10*3/mm3 08/07/2025 7:10 AM [facility] Lymphocytes, Absolute 2.89 0.70 - 3.10 10*3/mm3 08/07/2025 7:10 AM [facility] Monocytes, Absolute 1.56(H) 0.10 - 0.90 10*3/mm3 08/07/2025 7:10 AM [facility] Eosinophils, Absolute 0.31 0.00 - 0.40 10*3/mm3 08/07/2025 7:10 AM [facility] Basophils, Absolute 0.03 0.00 - 0.20 10*3/mm3 08/07/2025 7:10 AM [facility] Immature Grans, Absolute 0.07(H) 0.00 - 0.05 10*3/mm3 08/07/2025 7:10 AM [facility] nRBC 0.0 0.0 - 0.2 /100 WBC 08/07/2025 7:10 AM [facility] Blood Venipuncture / Unknown 08/07/2025 6:48 AM EDT 08/07/2025 7:00 AM EDT us Rocky Garcia MD LAB BLOOD ORDERABLES F inal Result [facility]
[address] [place] [address], * (ABNORMAL) Basic Metabolic Panel (08/06/2025 10:56 AM EDT) Glucose 124(H) 65 - 99 mg/dL 08/06/2025 12:15 PM EDT [facility] BUN 7.9(L) 8.0 - 23.0 mg/dL 08/06/2025 12:15 PM EDT [facility] Creatinine 0.54(L) 0.57 - 1.00 mg/dL 08/06/2025 12:15 PM EDT [facility] Sodium 133(L) 136 - 145 mmol/L 08/06/2025 12:15 PM EDT [facility] Potassium 4.4 3.5 - 5.2 mmol/L 08/06/2025 12:15 PM EDT [facility] Chloride 96(L) 98 - 107 mmol/L 08/06/2025 12:15 PM EDT [facility] CO2 32.5(H) 22.0 - 29.0 mmol/L 08/06/2025 12:15 PM EDT [facility] Calcium 8.5(L) 8.6 - 10.5 mg/dL 08/06/2025 12:15 PM EDT [facility] BUN/Creatinine Ratio 14.6 7.0 - 25.0 08/06/2025 12:15 PM EDT [facility] Anion Gap 4.5(L) 5.0 - 15.0 mmol/L 08/06/2025 12:15 PM EDT [facility] eGFR 90.9 >60.0 mL/min/1.7 3 08/06/2025 12:15 PM EDT [facility] Blood Venipuncture / Unknown 08/06/2025 10:56 AM EDT 08/06/2025 11:59 AM EDT [facility] - 08/06/2025 12:15 PM EDT GFR Categories in Chronic Kidney [...] not include race as a factor us Neda Ocampo DO LAB BLOOD ORDERABLES Final Result [facility]
[address] [place] [address], * (ABNORMAL) CBC (No Diff) (08/06/2025 10:56 AM EDT) WBC 10.16 3.40 - 10.80 10*3/mm3 08/06/2025 11:20 AM EDT [facility] RBC 3.22(L) 3.77 - 5.28 10*6/mm3 08/06/2025 11:20 AM EDT [facility] Hemoglobin 9.2(L) 12.0 - 15.9 g/dL 08/06/2025 11:20 AM EDT [facility] Hematocrit 29.6(L) 34.0 - 46.6 % 08/06/2025 11:20 AM EDT [facility] MCV 91.9 79.0 - 97.0 fL 08/06/2025 11:20 AM EDT [facility] MCH 28.6 26.6 - 33.0 pg 08/06/2025 11:20 AM EDT [facility] MCHC 31.1(L) 31.5 - 35.7 g/dL 08/06/2025 11:20 AM EDT [facility] RDW 12.7 12.3 - 15.4 % 08/06/2025 11:20 AM EDT [facility] RDW-SD 42.1 37.0 - 54.0 fl 08/06/2025 11:20 AM EDT [facility] MPV 8.8 6.0 - 12.0 fL 08/06/2025 11:20 AM EDT [facility] Platelets 452(H) 140 - 450 10*3/mm3 08/06/2025 11:20 AM EDT [facility] Blood Venipuncture / Unknown 08/06/2025 10:56 AM EDT 08/06/2025 11:16 AM EDT Neda Ocampo DO LAB BLOOD ORDERABLES Final Result Performing Organization Address City/[facility]/ZIP Co de Phone Number [facility]
[address] [place] [address], * (ABNORMAL) Heparin Anti-Xa (08/05/2025 12:27 PM EDT) Heparin Anti-Xa (UFH) 0.10(L) 0.30 - 0.70 IU/ml 08/05/2025 1:39 PM EDT [facility] Blood Venipuncture / Unknown 08/05/2025 12:27 PM EDT 08/05/2025 1:08 PM EDT Ulises Bonilla [facility] LAB BLOOD ORDERABLES Final Res ult [facility]
[address] [place] [address], * (ABNORMAL) Heparin Anti-Xa (08/05/2025 4:32 AM EDT) Heparin Anti-Xa (UFH) 0.24(L) 0.30 - 0.70 IU/ml 08/05/2025 5:42 AM EDT [facility] Blood Venipuncture / Unknown 08/05/2025 4:32 AM EDT 08/05/2025 5:05 AM EDT us Ulises Bonilla [facility] LAB BLOOD ORDERABLES Final Res ult [facility]
[address] [place] [address], * (ABNORMAL) CBC Auto Differential (08/05/2025 4:32 AM EDT) Pathologist [facility] WBC 10.01 3.40 - 10.80 10*3/mm3 08/05/2025 5:17 AM EDT [facility] RBC 3.20(L) 3.77 - 5.28 10*6/mm3 08/05/2025 5:17 AM EDT [facility] Hemoglobin 9.1(L) 12.0 - 15.9 g/dL 08/05/2025 5:17 AM EDT [facility] Hematocrit 29.0(L) 34.0 - 46.6 % 08/05/2025 5:17 AM EDT [facility] MCV 90.6 79.0 - 97.0 fL 08/05/2025 5:17 AM EDT [facility] MCH 28.4 26.6 - 33.0 pg 08/05/2025 5:17 AM EDT [facility] MCHC 31.4(L) 31.5 - 35.7 g/dL 08/05/2025 5:17 AM EDT [facility] RDW 12.9 12.3 - 15.4 % 08/05/2025 5:17 AM EDT [facility] RDW-SD 42.7 37.0 - 54.0 fl 08/05/2025 5:17 AM EDT [facility] MPV 9.0 6.0 - 12.0 fL 08/05/2025 5:17 AM EDT [facility] Platelets 443 140 - 450 10*3/mm3 08/05/2025 5:17 AM EDT [facility] Neutrophil % 51.8 42.7 - 76.0 % 08/05/2025 5:17 AM [facility] Lymphocyte % 31.4 19.6 - 45.3 % 08/05/2025 5:17 AM [facility] Monocyte % 14.3(H) 5.0 - 12.0 % 08/05/2025 5:17 AM [facility] Eosinophil % 1.7 0.3 - 6.2 % 08/05/2025 5:17 AM [facility] Basophil % 0.3 0.0 - 1.5 % 08/05/2025 5:17 AM [facility] Immature Grans % 0.5 0.0 - 0.5 % 08/05/2025 5:17 AM [facility] Neutrophils, Absolute 5.19 1.70 - 7.00 10*3/mm3 08/05/2025 5:17 AM [facility] Lymphocytes, Absolute 3.14(H) 0.70 - 3.10 10*3/mm3 08/05/2025 5:17 AM [facility] Monocytes, Absolute 1.43(H) 0.10 - 0.90 10*3/mm3 08/05/2025 5:17 AM [facility] Eosinophils, Absolute 0.17 0.00 - 0.40 10*3/mm3 08/05/2025 5:17 AM [facility] Basophils, Absolute 0.03 0.00 - 0.20 10*3/mm3 08/05/2025 5:17 AM [facility] Immature Grans, Absolute 0.05 0.00 - 0.05 10*3/mm3 08/05/2025 5:17 AM [facility] nRBC 0.0 0.0 - 0.2 /100 WBC 08/05/2025 5:17 AM [facility] Blood Venipuncture / Unknown 08/05/2025 4:32 AM EDT 08/05/2025 5:05 AM EDT us Rocky Garcia MD LAB BLOOD ORDERABLES F inal Result [facility]
[address] [place] [address], * (ABNORMAL) Basic Metabolic Panel (08/05/2025 4:32 AM EDT) Glucose 96 65 - 99 mg/dL 08/05/2025 5:49 AM EDT [facility] BUN 8.9 8.0 - 23.0 mg/dL 08/05/2025 5:49 AM EDT [facility] Creatinine 0.48(L) 0.57 - 1.00 mg/dL 08/05/2025 5:49 AM EDT [facility] Sodium 134(L) 136 - 145 mmol/L 08/05/2025 5:49 AM EDT [facility] Potassium 4.3 3.5 - 5.2 mmol/L 08/05/2025 5:49 AM EDT [facility] Chloride 100 98 - 107 mmol/L 08/05/2025 5:49 AM EDT [facility] CO2 27.6 22.0 - 29.0 mmol/L 08/05/2025 5:49 AM EDT [facility] Calcium 8.4(L) 8.6 - 10.5 mg/dL 08/05/2025 5:49 AM EDT [facility] BUN/Creatinine Ratio 18.5 7.0 - 25.0 08/05/2025 5:49 AM EDT [facility] Anion Gap 6.4 5.0 - 15.0 mmol/L 08/05/2025 5:49 AM EDT [facility] eGFR 93.5 >60.0 mL/min/1.7 3 08/05/2025 5:49 AM EDT [facility] Blood Venipuncture / Unknown 08/05/2025 4:32 AM EDT 08/05/2025 5:03 AM EDT Narrative [facility] - 08/05/2025 5:49 AM EDT GFR Categories in Chronic Kidney [...] does not include race as a factor Rocky Garcia MD LAB BLOOD ORDERABLES F inal Result Performing Organization Address City/[facility]/ZIP Co de Phone Number [facility]
[address] [place] [address], [place] [phone] * (ABNORMAL) Heparin Anti-Xa (08/04/2025 9:18 PM EDT) [facility] Heparin Anti-Xa (UFH) 0.10(L) 0.30 - 0.70 IU/ml 08/04/2025 9:47 PM EDT [facility] Blood Venipuncture / Unknown 08/04/2025 9:18 PM EDT 08/04/2025 9:27 PM EDT Rocky Garcia MD LAB BLOOD ORDERABLES F inal Result Performing Organization Address City/[facility]/ZIP Co de Phone Number [facility]
[address] [place] [address], [place] [phone] * (ABNORMAL) CBC Auto Differential (08/04/2025 4:12 AM EDT) Pathologist [facility] WBC 10.43 3.40 - 10.80 10*3/mm3 08/04/2025 4:35 AM EDT [facility] RBC 3.08(L) 3.77 - 5.28 10*6/mm3 08/04/2025 4:35 AM EDT [facility] Hemoglobin 8.7(L) 12.0 - 15.9 g/dL 08/04/2025 4:35 AM EDT [facility] Hematocrit 27.6(L) 34.0 - 46.6 % 08/04/2025 4:35 [facility] MCV 89.6 79.0 - 97.0 fL 08/04/2025 4:35 AM EDT [facility] MCH 28.2 26.6 - 33.0 pg 08/04/2025 4:35 AM EDT [facility] MCHC 31.5 31.5 - 35.7 g/dL 08/04/2025 4:35 AM [facility] RDW 13.0 12.3 - 15.4 % 08/04/2025 4:35 AM [facility] RDW-SD 42.8 37.0 - 54.0 fl 08/04/2025 4:35 AM [facility] MPV 8.9 6.0 - 12.0 fL 08/04/2025 4:35 AM [facility] Platelets 405 140 - 450 10*3/mm3 08/04/2025 4:35 AM [facility] Neutrophil % 61.8 42.7 - 76.0 % 08/04/2025 4:35 AM [facility] Lymphocyte % 23.5 19.6 - 45.3 % 08/04/2025 4:35 AM EDT [facility] Monocyte % 12.8(H) 5.0 - 12.0 % 08/04/2025 4:35 AM EDT [facility] Eosinophil % 1.0 0.3 - 6.2 % 08/04/2025 4:35 AM EDT [facility] Basophil % 0.2 0.0 - 1.5 % 08/04/2025 4:35 AM [facility] Immature Grans % 0.7(H) 0.0 - 0.5 % 08/04/2025 4:35 AM EDT [facility] Neutrophils, Absolute 6.45 1.70 - 7.00 10*3/mm3 08/04/2025 4:35 AM EDT [facility] Lymphocytes, Absolute 2.45 0.70 - 3.10 10*3/mm3 08/04/2025 4:35 AM EDT [facility] Monocytes, Absolute 1.34(H) 0.10 - 0.90 10*3/mm3 08/04/2025 4:35 AM EDT [facility] Eosinophils, Absolute 0.10 0.00 - 0.40 10*3/mm3 08/04/2025 4:35 AM EDT [facility] Basophils, Absolute 0.02 0.00 - 0.20 10*3/mm3 08/04/2025 4:35 AM EDT [facility] Immature Grans, Absolute 0.07(H) 0.00 - 0.05 10*3/mm3 08/04/2025 4:35 AM EDT [facility] nRBC 0.0 0.0 - 0.2 /100 WBC 08/04/2025 4:35 AM EDT [facility] Blood Structure of left upper limb / Unknown Venipuncture / Unknown 08/04/2025 4:12 AM EDT 08/04/2025 4:31 AM EDT [facility] MD LAB BLOOD ORDERABLES Final Res ult [facility]
[address] [place] [address], * Phosphorus (08/04/2025 4:12 AM EDT) Phosphorus 2.7 2.5 - 4.5 mg/dL 08/04/2025 5:01 AM EDT [facility] Blood Structure of left upper limb / Unknown Venipuncture / Unknown 08/04/2025 4:12 AM EDT 08/04/2025 4:32 AM EDT Rocky Garcia MD LAB BLOOD ORDERABLES F inal Result [facility]
[address] [place] [address], * Magnesium (08/04/2025 4:12 AM EDT) Magnesium 1.9 1.6 - 2.4 mg/dL 08/04/2025 5:01 AM EDT [facility] Blood Structure of left upper limb / Unknown Venipuncture / Unknown 08/04/2025 4:12 AM EDT 08/04/2025 4:32 AM EDT Rocky Garcia MD LAB BLOOD ORDERABLES F inal Result Performing Organization Address City/[facility] Co de Phone Number [facility]
[address] [place] [address], * (ABNORMAL) Comprehensive Metabolic Panel (08/04/2025 4:12 AM EDT) Glucose 90 65 - 99 mg/dL 08/04/2025 5:01 AM EDT [facility] BUN 10.1 8.0 - 23.0 mg/dL 08/04/2025 5:01 AM EDT [facility] Creatinine 0.57 0.57 - 1.00 mg/dL 08/04/2025 5:01 AM EDT [facility] Sodium 134(L) 136 - 145 mmol/L 08/04/2025 5:01 AM EDT [facility] Potassium 4.4 3.5 - 5.2 mmol/L 08/04/2025 5:01 AM EDT [facility] Chloride 99 98 - 107 mmol/L 08/04/2025 5:01 AM EDT [facility] CO2 27.2 22.0 - 29.0 mmol/L 08/04/2025 5:01 AM EDT [facility] Calcium 8.2(L) 8.6 - 10.5 mg/dL 08/04/2025 5:01 AM T [facility] Total Protein 5.2(L) 6.0 - 8.5 g/dL 08/04/2025 5:01 AM T [facility] Albumin 2.8(L) 3.5 - 5.2 g/dL 08/04/2025 5:01 AM T [facility] ALT (SGPT) 15 1 - 33 U/L 08/04/2025 5:01 AM T [facility] AST (SGOT) 27 1 - 32 U/L 08/04/2025 5:01 AM [facility] Alkaline Phosphatase 49 39 - 117 U/L 08/04/2025 5:01 AM [facility] Total Bilirubin 0.2 0.0 - 1.2 mg/dL 08/04/2025 5:01 AM [facility] Globulin 2.4 gm/dL 08/04/2025 5:01 AM [facility] Comment:Calculated Result A/G Ratio 1.2 g/dL 08/04/2025 5:01 AM [facility] BUN/Creatinine Ratio 17.7 7.0 - 25.0 08/04/2025 5:01 AM [facility] Anion Gap 7.8 5.0 - 15.0 mmol/L 08/04/2025 5:01 AM [facility] eGFR 89.7 >60.0 mL/min/1.7 3 08/04/2025 5:01 AM [facility] Blood Structure of left upper limb / Unknown Venipuncture / Unknown 08/04/2025 4:12 AM EDT 08/04/2025 4:32 AM T [facility] - 08/04/2025 5:01 AM EDT GFR Categories in Chronic Kidney [...] does not include race as a factor Rocky Garcia MD LAB BLOOD ORDERABLES F inal Result [facility]
[address] [place] [address], * Telemetry Scan (08/03/2025 11:08 PM EDT) [facility] Onbase ECG ORDERABLES Final Result * (ABNORMAL) CBC Auto Differential (08/03/2025 4:34 AM EDT) WBC 11.48(H) 3.40 - 10.80 10*3/mm3 08/03/2025 4:44 AM EDT [facility] RBC 3.43(L) 3.77 - 5.28 10*6/mm3 08/03/2025 4:44 AM EDT [facility] Hemoglobin 9.8(L) 12.0 - 15.9 g/dL 08/03/2025 4:44 AM EDT [facility] Hematocrit 30.2(L) 34.0 - 46.6 % 08/03/2025 4:44 AM EDT [facility] MCV 88.0 79.0 - 97.0 fL 08/03/2025 4:44 AM EDT [facility] MCH 28.6 26.6 - 33.0 pg 08/03/2025 4:44 AM EDT [facility] MCHC 32.5 31.5 - 35.7 g/dL 08/03/2025 4:44 AM EDT [facility] RDW 12.9 12.3 - 15.4 % 08/03/2025 4:44 AM [facility] RDW-SD 41.1 37.0 - 54.0 fl 08/03/2025 4:44 AM [facility] MPV 8.9 6.0 - 12.0 fL 08/03/2025 4:44 AM [facility] Platelets 360 140 - 450 10*3/mm3 08/03/2025 4:44 AM [facility] Neutrophil % 84.9(H) 42.7 - 76.0 % 08/03/2025 4:44 AM [facility] Lymphocyte % 8.5(L) 19.6 - 45.3 % 08/03/2025 4:44 AM [facility] Monocyte % 5.9 5.0 - 12.0 % 08/03/2025 4:44 AM [facility] Eosinophil % 0.0(L) 0.3 - 6.2 % 08/03/2025 4:44 AM [facility] Basophil % 0.1 0.0 - 1.5 % 08/03/2025 4:44 AM [facility] Immature Grans % 0.6(H) 0.0 - 0.5 % 08/03/2025 4:44 AM [facility] Neutrophils, Absolute 9.74(H) 1.70 - 7.00 10*3/mm3 08/03/2025 4:44 AM [facility] Lymphocytes, Absolute 0.98 0.70 - 3.10 10*3/mm3 08/03/2025 4:44 AM [facility] Monocytes, Absolute 0.68 0.10 - 0.90 10*3/mm3 08/03/2025 4:44 AM [facility] Eosinophils, Absolute 0.00 0.00 - 0.40 10*3/mm3 08/03/2025 4:44 AM [facility] Basophils, Absolute 0.01 0.00 - 0.20 10*3/mm3 08/03/2025 4:44 AM EDT [facility] Immature Grans, Absolute 0.07(H) 0.00 - 0.05 10*3/mm3 08/03/2025 4:44 AM EDT [facility] nRBC 0.0 0.0 - 0.2 /100 WBC 08/03/2025 4:44 AM EDT [facility] Blood Structure of left upper limb / Unknown Venipuncture / Unknown 08/03/2025 4:34 AM EDT 08/03/2025 4:41 AM EDT us [facility] MD LAB BLOOD ORDERABLES Final Res ult [facility]
[address] [place] [address], * (ABNORMAL) Basic Metabolic Panel (08/03/2025 4:34 AM EDT) Glucose 117(H) 65 - 99 mg/dL 08/03/2025 5:04 AM EDT [facility] BUN 11.3 8.0 - 23.0 mg/dL 08/03/2025 5:04 AM EDT [facility] Creatinine 0.49(L) 0.57 - 1.00 mg/dL 08/03/2025 5:04 AM EDT [facility] Sodium 129(L) 136 - 145 mmol/L 08/03/2025 5:04 AM EDT [facility] Potassium 4.5 3.5 - 5.2 mmol/L 08/03/2025 5:04 AM EDT [facility] Chloride 96(L) 98 - 107 mmol/L 08/03/2025 5:04 AM EDT [facility] CO2 23.6 22.0 - 29.0 mmol/L 08/03/2025 5:04 AM EDT [facility] Calcium 8.4(L) 8.6 - 10.5 mg/dL 08/03/2025 5:04 AM EDT [facility] BUN/Creatinine Ratio 23.1 7.0 - 25.0 08/03/2025 5:04 AM EDT [facility] Anion Gap 9.4 5.0 - 15.0 mmol/L 08/03/2025 5:04 AM EDT [facility] eGFR 93.1 >60.0 mL/min/1.7 3 08/03/2025 5:04 AM EDT [facility] Blood Structure of left upper limb / Unknown Venipuncture / Unknown 08/03/2025 4:34 AM EDT 08/03/2025 4:40 AM EDT Narrative [facility] - 08/03/2025 5:04 AM EDT GFR Categories in Chronic Kidney [...] does not include race as a factor Junior Pavel FLYNN LAB BLOOD ORDERABLES Final Res ult [facility]
[address] [place] [address], * Telemetry Scan (08/02/2025 7:05 PM EDT) [facility] Onbase ECG ORDERABLES Final Result * Tissue Pathology Exam (08/02/2025 3:46 PM EDT) Case Report Surgical Pathology Report Case: [id number] Authorizing Provider: Junior Zhao MD Collected: 08/02/2025 03:46 PM Ordering Location: [facility] Received: 08/05/2025 07:46 AM OR Pathologist: Daniel Aj MD Specimens: 1) - Leg, Left, Left Popliteal Thrombus 2) - Toe, Left, Left Great Toe 08/06/2025 4:19 PM EDT [facility] Clinical Information Peripheral artery disease Critical limb ischemia of left lower extremity 08/06/2025 4:19 PM EDT [facility] Final Diagnosis 1. LEFT POPLITEAL THROMBUS, REMOVAL: Organizing hemorrhage, consistent with thrombus 2. LEFT GREAT TOE, DISARTICULATION: Toe with ulceration and necrosis No evidence of malignancy or acute osteomyelitis 08/06/2025 4:19 PM EDT [facility] at 1619 EDT Gross Description 1. Leg, Left. Received in formalin labeled left popliteal thrombus is a 1.5 x 0.7 x 0.2 cm aggregate of dark brown blood clot and possible atheromatous material, submitted entirely in block 1A. 2. Toe, Left. Received in formalin labeled left great toe is a 5.5 x 2.6 x 2.2 cm disarticulated toe covered in pink-wheatley, wrinkled skin. Involving the dorsal aspect of the toe is a 5.5 x 2.2 cm area of indurated, dark brown, sloughing skin that grossly involves the proximal skin margin. The nail is mildly thickened and discolored. Sectioning of the bone reveals firm, dark red cut surfaces. Recruitment Director sections are submitted as follows: 2A-en face proximal skin margin and proximal bone, submitted following decalcification 2B-discolored skin with underlying bone, submitted following decalcification. LDP 08/06/2025 4:19 PM EDT [facility] Microscopic Description The slides are reviewed and demonstrate histopathologic features supporting the above rendered diagnosis. 08/06/2025 4:19 PM EDT [facility] Tissue Structure of left lower limb / Unknown 08/02/2025 3:46 PM EDT 08/05/2025 7:46 AM EDT Comment:Left Popliteal Throm bus Tissue specimen (specimen) Structure of toe of left foot / Unknown 08/02/2025 4:21 PM EDT 08/05/2025 7:46 AM EDT Comment:Left Great Toe Junior Pavel FLYNN PATHOLOGY/CYTOLOGY ORDERABLES Final Result [facility]
[address] [place] [address], * Type & Screen (08/02/2025 1:30 PM EDT) ABO Type O 08/02/2025 2:31 PM EDT [facility] RH type Positive 08/02/2025 2:31 PM EDT [facility] Antibody Screen Negative 08/02/2025 2:31 PM EDT [facility] T&S Expiration Date 08/05/2025 11:59:59 PM 08/02/2025 2:31 PM EDT [facility] Blood 08/02/2025 1:30 PM EDT 08/02/2025 1:38 PM EDT Parker Bryan MD BLOOD BANK TEST ORDERABLES Ed ited Result - Final Performing Organization Address City/[facility] Co de Phone Number [facility]
[address] [place] [address], * (ABNORMAL) aPTT (08/02/2025 3:29 AM EDT) PTT 57.1(L) 60.0 - 90.0 seconds 08/02/2025 6:14 AM EDT [facility] Blood Venipuncture / Unknown 08/02/2025 3:29 AM EDT 08/02/2025 5:58 AM EDT Narrative [facility] - 08/02/2025 6:14 AM EDT PTT = The equivalent PTT values for the therapeutic range of heparin levels at 0.3 to 0.5 U/ml are 60 to 70 seconds. Ulises Bonilla [facility] BLOOD ORDERABLES Final Res ult [facility]
[address] [place] [address], * (ABNORMAL) aPTT (08/01/2025 7:44 PM EDT) PTT 52.0(L) 60.0 - 90.0 seconds 08/01/2025 8:28 PM EDT [facility] Blood Venipuncture / Unknown 08/01/2025 7:44 PM EDT 08/01/2025 8:08 PM EDT [facility] - 08/01/2025 8:28 PM EDT PTT = The equivalent PTT values for the therapeutic range of heparin levels at 0.3 to 0.5 U/ml are 60 to 70 seconds. us Annabelle Lewis [facility] BLOOD ORDERABLES Final Res ult Performing Organization Address [facility] de Phone Number [facility]
[address] [place] [address], * (ABNORMAL) aPTT (08/01/2025 10:12 AM EDT) PTT 57.4(L) 60.0 - 90.0 seconds 08/01/2025 11:19 AM EDT [facility] Blood Venipuncture / Unknown 08/01/2025 10:12 AM EDT 08/01/2025 10:49 AM EDT [facility] - 08/01/2025 11:19 AM EDT PTT = The equivalent PTT values for the therapeutic range of heparin levels at 0.3 to 0.5 U/ml are 60 to 70 seconds. us Annabelle Lewis [facility] BLOOD ORDERABLES Final Res ult Performing Organization Address [facility] Co de Phone Number [facility]
[address] [place] [address], * ABO RH Specimen Verification (08/01/2025 7:23 AM EDT) ABO Type O 08/02/2025 2:47 PM EDT [facility] RH type Positive 08/02/2025 2:47 PM EDT [facility] Blood Venipuncture / Unknown 08/01/2025 7:23 AM EDT 08/02/2025 1:54 PM EDT us Yoli Moreira MD BLOOD BANK TEST ORDERABLES Final Result [facility]
[address] [place] [address], * (ABNORMAL) CBC Auto Differential (08/01/2025 7:23 AM EDT) WBC 17.15(H) 3.40 - 10.80 10*3/mm3 08/01/2025 7:59 AM EDT [facility] RBC 3.74(L) 3.77 - 5.28 10*6/mm3 08/01/2025 7:59 AM EDT [facility] Hemoglobin 10.5(L) 12.0 - 15.9 g/dL 08/01/2025 7:59 AM EDT [facility] Hematocrit 33.2(L) 34.0 - 46.6 % 08/01/2025 7:59 AM EDT [facility] MCV 88.8 79.0 - 97.0 fL 08/01/2025 7:59 AM EDT [facility] MCH 28.1 26.6 - 33.0 pg 08/01/2025 7:59 AM EDT [facility] MCHC 31.6 31.5 - 35.7 g/dL 08/01/2025 7:59 AM EDT [facility] RDW 12.9 12.3 - 15.4 % 08/01/2025 7:59 AM EDT [facility] RDW-SD 42.0 37.0 - 54.0 fl 08/01/2025 7:59 AM [facility] MPV 9.1 6.0 - 12.0 fL 08/01/2025 7:59 [facility] 366 140 - 450 10*3/mm3 08/01/2025 7:59 AM [facility] Neutrophil % 73.9 42.7 - 76.0 % 08/01/2025 7:59 [facility] Lymphocyte % 14.3(L) 19.6 - 45.3 % 08/01/2025 7:59 AM [facility] Monocyte % 9.8 5.0 - 12.0 % 08/01/2025 7:59 AM [facility] Eosinophil % 1.4 0.3 - 6.2 % 08/01/2025 7:59 AM [facility] Basophil % 0.2 0.0 - 1.5 % 08/01/2025 7:59 AM [facility] Immature Grans % 0.4 0.0 - 0.5 % 08/01/2025 7:59 AM [facility] Neutrophils, Absolute 12.68(H) 1.70 - 7.00 10*3/mm3 08/01/2025 7:59 AM [facility] Lymphocytes, Absolute 2.45 0.70 - 3.10 10*3/mm3 08/01/2025 7:59 AM [facility] Monocytes, Absolute 1.68(H) 0.10 - 0.90 10*3/mm3 08/01/2025 7:59 AM [facility] Eosinophils, Absolute 0.24 0.00 - 0.40 10*3/mm3 08/01/2025 7:59 AM [facility] Basophils, Absolute 0.03 0.00 - 0.20 10*3/mm3 08/01/2025 7:59 AM [facility] Immature Grans, Absolute 0.07(H) 0.00 - 0.05 10*3/mm3 08/01/2025 7:59 AM EDT [facility] nRBC 0.0 0.0 - 0.2 /100 WBC 08/01/2025 7:59 AM EDT [facility] Blood Venipuncture / Unknown 08/01/2025 7:23 AM EDT 08/01/2025 7:52 AM EDT Yoli Moreira MD LAB BLOOD ORDERABLES Final Resul t [facility]
[address] [place] [address], * (ABNORMAL) Basic Metabolic Panel (08/01/2025 7:23 AM EDT) Glucose 102(H) 65 - 99 mg/dL 08/01/2025 8:27 AM EDT [facility] BUN 10.7 8.0 - 23.0 mg/dL 08/01/2025 8:27 AM EDT [facility] Creatinine 0.49(L) 0.57 - 1.00 mg/dL 08/01/2025 8:27 AM EDT [facility] Sodium 131(L) 136 - 145 mmol/L 08/01/2025 8:27 AM EDT [facility] Potassium 4.0 3.5 - 5.2 mmol/L 08/01/2025 8:27 AM EDT [facility] Chloride 98 98 - 107 mmol/L 08/01/2025 8:27 AM EDT [facility] CO2 24.7 22.0 - 29.0 mmol/L 08/01/2025 8:27 AM EDT [facility] Calcium 8.5(L) 8.6 - 10.5 mg/dL 08/01/2025 8:27 AM EDT [facility] BUN/Creatinine Ratio 21.8 7.0 - 25.0 08/01/2025 8:27 AM EDT [facility] Anion Gap 8.3 5.0 - 15.0 mmol/L 08/01/2025 8:27 AM EDT [facility] eGFR 93.1 >60.0 mL/min/1.7 3 08/01/2025 8:27 AM EDT [facility] Blood Venipuncture / Unknown 08/01/2025 7:23 AM EDT 08/01/2025 7:53 AM EDT Narrative [facility] - 08/01/2025 8:27 AM EDT GFR Categories in Chronic Kidney [...] does not include race as a factor Yoli Moreira MD LAB BLOOD ORDERABLES Final Resul t [facility]
[address] [place] [address], * (ABNORMAL) aPTT (07/31/2025 10:52 PM EDT) PTT 34.8(L) 60.0 - 90.0 seconds 08/01/2025 12:47 AM EDT [facility] Blood Venipuncture / Unknown 07/31/2025 10:52 PM EDT 08/01/2025 12:31 AM EDT Narrative [facility] - 08/01/2025 12:47 AM EDT PTT = The equivalent PTT values for the therapeutic range of heparin levels at 0.3 to 0.5 U/ml are 60 to 70 seconds. Bear Tobar [facility] LAB BLOOD ORDERABLES F inal Result [facility]
[address] [place] [address], * Telemetry Scan (07/31/2025 4:36 PM EDT) [facility] ORDER[facility]LES Final Result * (ABNORMAL) aPTT (07/31/2025 4:15 PM EDT) PTT 35.2(L) 60.0 - 90.0 seconds 07/31/2025 4:35 PM EDT [facility] Blood Structure of right upper limb / Unknown Venipuncture / Unknown 07/31/2025 4:15 PM EDT 07/31/2025 4:19 PM EDT Narrative [facility] - 07/31/2025 4:35 PM EDT PTT = The equivalent PTT values for the therapeutic range of heparin levels at 0.3 to 0.5 U/ml are 60 to 70 seconds. us Yloi Moreira MD LAB BLOOD ORDERABLES Final Resul t [facility]
[address] [place] [address], * Protime-INR (07/31/2025 4:15 PM EDT) Protime 14.2 12.2 - 15.3 Seconds 07/31/2025 4:35 PM EDT [facility] INR 1.04 0.89 - 1.12 07/31/2025 4:35 PM EDT [facility] Blood Structure of right upper limb / Unknown Venipuncture / Unknown 07/31/2025 4:15 PM EDT 07/31/2025 4:19 PM EDT us Yoli Moreira MD LAB BLOOD ORDERABLES Final Resul t [facility]
[address] [place] [address], [place] [phone] * Heparin Anti-Xa (07/31/2025 4:15 PM EDT) Heparin Anti-Xa (UFH) 0.31 0.30 - 0.70 IU/ml 07/31/2025 4:35 PM EDT [facility] Blood Structure of right upper limb / Unknown Venipuncture / Unknown 07/31/2025 4:15 PM EDT 07/31/2025 4:19 PM EDT Yoli Moreira MD LAB BLOOD ORDERABLES Final Resul t Performing Organization Address City/[facility]/ZIP Co de Phone Number [facility]
[address] [place] [address], * Telemetry Scan (07/31/2025 3:10 PM EDT) [facility] Onbase ECG ORDERABLES Final Result * Wheatley Top (07/31/2025 2:37 PM EDT) Extra Tube Hold for add-ons. 07/31/2025 3:01 PM EDT [facility] Comment:Auto resulted. Blood Line / Unknown 07/31/2025 2: 37 PM EDT 07/31/2025 2:52 PM EDT Gregg Munoz MD LAB BLOOD ORDER ONLY Ely l Result [facility]
[address] [place] [address], * Gold Top - SST (07/31/2025 2:37 PM EDT) Extra Tube Hold for add-ons. 07/31/2025 3:01 PM EDT [facility] Comment:Auto resulted. Blood Line / Unknown 07/31/2025 2: 37 PM EDT 07/31/2025 2:52 PM EDT us Gregg Munoz MD LAB BLOOD ORDER ONLY Ely l Result Performing Organization Address City/[facility] Co de Phone Number [facility]
[address] [place] [address], * Digoxin Level (07/31/2025 2:37 PM EDT) Digoxin 1.12 0.60 - 1.20 ng/mL 07/31/2025 3:23 PM EDT [facility] Blood Venipuncture / Unknown 07/31/2025 2:37 PM EDT 07/31/2025 2:48 PM EDT Narrative [facility] - 07/31/2025 3:23 PM EDT Results may be falsely increased if patient taking Biotin. us Gregg Munoz MD LAB BLOOD ORDERABLES Ely l Result Performing Organization Address [facility] Co de Phone Number [facility]
[address] [place] [address], * (ABNORMAL) C-reactive Protein (07/31/2025 2:37 PM EDT) C-Reactive Protein 2.78(H) 0.00 - 0.50 mg/dL 07/31/2025 3:23 PM EDT [facility] Blood Venipuncture / Unknown 07/31/2025 2:37 PM EDT 07/31/2025 2:48 PM EDT us Gregg Munoz MD LAB BLOOD ORDERABLES Ely l Result Performing Organization Address City/[facility] Co de Phone Number [facility]
[address] [place] [address], * (ABNORMAL) Sedimentation Rate (07/31/2025 2:37 PM EDT) Sed Rate 73(H) 0 - 30 mm/hr 07/31/2025 2:57 PM EDT [facility] Blood Venipuncture / Unknown 07/31/2025 2:37 PM EDT 07/31/2025 2:48 PM EDT Gregg Munoz MD LAB BLOOD ORDERABLES Ely l Result [facility]
[address] [place] [address], * (ABNORMAL) Comprehensive Metabolic Panel (07/31/2025 2:37 PM EDT) Pathologist [facility] Glucose 108(H) 65 - 99 mg/dL 07/31/2025 3:27 PM EDT [facility] BUN 13.9 8.0 - 23.0 mg/dL 07/31/2025 3:27 PM EDT [facility] Creatinine 0.55(L) 0.57 - 1.00 mg/dL 07/31/2025 3:27 PM EDT [facility] Sodium 132(L) 136 - 145 mmol/L 07/31/2025 3:27 PM EDT [facility] Potassium 4.5 3.5 - 5.2 mmol/L 07/31/2025 3:27 PM EDT [facility] Chloride 97(L) 98 - 107 mmol/L 07/31/2025 3:27 PM EDT [facility] CO2 24.3 22.0 - 29.0 mmol/L 07/31/2025 3:27 PM EDT [facility] Calcium 9.1 8.6 - 10.5 mg/dL 07/31/2025 3:27 PM EDT [facility] Total Protein 6.8 6.0 - 8.5 g/dL 07/31/2025 3:27 PM EDT [facility] Albumin 3.8 3.5 - 5.2 g/dL 07/31/2025 3:27 PM EDT [facility] ALT (SGPT) 20 1 - 33 U/L 07/31/2025 3:27 PM EDT [facility] AST (SGOT) 30 1 - 32 U/L 07/31/2025 3:27 PM EDT [facility] Alkaline Phosphatase 64 39 - 117 U/L 07/31/2025 3:27 PM EDT [facility] Total Bilirubin 0.2 0.0 - 1.2 mg/dL 07/31/2025 3:27 PM EDT [facility] Globulin 3.0 gm/dL 07/31/2025 3:27 PM T [facility] Comment:Calculated Result A/G Ratio 1.3 g/dL 07/31/2025 3:27 PM T [facility] BUN/Creatinine Ratio 25.3(H) 7.0 - 25.0 07/31/2025 3:27 PM T [facility] Anion Gap 10.7 5.0 - 15.0 mmol/L 07/31/2025 3:27 PM [facility] eGFR 90.5 >60.0 mL/min/1.7 3 07/31/2025 3:27 PM T [facility] Blood Venipuncture / Unknown 07/31/2025 2:37 PM EDT 07/31/2025 2:48 PM EDT [facility] - 07/31/2025 3:27 PM EDT GFR Categories in Chronic Kidney [...] not include race as a factor us Gregg Munoz MD LAB BLOOD ORDERABLES Ely laquita Result [facility]
[address] [place] [address], * (ABNORMAL) CBC Auto Differential (07/31/2025 2:37 PM EDT) WBC 11.90(H) 3.40 - 10.80 10*3/mm3 07/31/2025 2:53 PM EDT [facility] RBC 4.21 3.77 - 5.28 10*6/mm3 07/31/2025 2:53 PM EDT [facility] Hemoglobin 12.2 12.0 - 15.9 g/dL 07/31/2025 2:53 PM EDT [facility] Hematocrit 37.0 34.0 - 46.6 % 07/31/2025 2:53 PM EDT [facility] MCV 87.9 79.0 - 97.0 fL 07/31/2025 2:53 PM EDT [facility] MCH 29.0 26.6 - 33.0 pg 07/31/2025 2:53 PM EDT [facility] MCHC 33.0 31.5 - 35.7 g/dL 07/31/2025 2:53 PM EDT [facility] RDW 12.8 12.3 - 15.4 % 07/31/2025 2:53 PM EDT [facility] RDW-SD 41.0 37.0 - 54.0 fl 07/31/2025 2:53 PM EDT [facility] MPV 8.7 6.0 - 12.0 fL 07/31/2025 2:53 PM EDT [facility] Platelets 404 140 - 450 10*3/mm3 07/31/2025 2:53 PM EDT [facility] Neutrophil % 62.4 42.7 - 76.0 % 07/31/2025 2:53 PM EDT [facility] Lymphocyte % 22.7 19.6 - 45.3 % 07/31/2025 2:53 PM EDT [facility] Monocyte % 9.4 5.0 - 12.0 % 07/31/2025 2:53 PM EDT [facility] Eosinophil % 4.9 0.3 - 6.2 % 07/31/2025 2:53 PM EDT [facility] Basophil % 0.3 0.0 - 1.5 % 07/31/2025 2:53 PM EDT [facility] Immature Grans % 0.3 0.0 - 0.5 % 07/31/2025 2:53 PM EDT [facility] Neutrophils, Absolute 7.42(H) 1.70 - 7.00 10*3/mm3 07/31/2025 2:53 PM EDT [facility] Lymphocytes, Absolute 2.70 0.70 - 3.10 10*3/mm3 07/31/2025 2:53 PM EDT [facility] Monocytes, Absolute 1.12(H) 0.10 - 0.90 10*3/mm3 07/31/2025 2:53 PM EDT [facility] Eosinophils, Absolute 0.58(H) 0.00 - 0.40 10*3/mm3 07/31/2025 2:53 PM EDT [facility] Basophils, Absolute 0.04 0.00 - 0.20 10*3/mm3 07/31/2025 2:53 PM EDT [facility] Immature Grans, Absolute 0.04 0.00 - 0.05 10*3/mm3 07/31/2025 2:53 PM EDT [facility] nRBC 0.0 0.0 - 0.2 /100 WBC 07/31/2025 2:53 PM EDT [facility] Blood Venipuncture / Unknown 07/31/2025 2:37 PM EDT 07/31/2025 2:48 PM EDT Gregg Munoz MD LAB BLOOD ORDERABLES Ely coelho Result [facility]
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 Primary hypertension Unspecified essential hypertension Type 2 diabetes mellitus with diabetic neuropathy, 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 Peripheral artery disease Acute urinary retention documented in this encounter Admitting Diagnoses Diagnosis Claudication Unspecified peripheral vascular disease Critical limb ischemia of left lower extremity Toe necrosis Peripheral artery disease documented in this encounter Administered Medications Inactive Administered Medications - up to 3 most recent administrations Medication Order MAR Action Action Date Dose Rate Site acetaminophen (TYLENOL) 160 MG/5ML oral solution 650 mg 650 mg, Oral, Every 4 Hours PRN, Mild Pain, Starting on Tue07/31/25 at 1900, If given for fever, use fever parameter: [...] 4 Hours PRN, Mild Pain, Starting on Tue07/31/25 at 1900, If given for fever, use fever parameter: [...] 4 Hours PRN, Mild Pain, Starting on Tue07/31/25 at 1900, If given for fever, use fever parameter: [...] Pain Score of 7-10, CPOT 5-8 Given 08/07/2025 1:46 PM EDT 650 mg Given 08/01/2025 3:18 AM EDT 650 mg apixaban (ELIQUIS) tablet 2.5 mg 2.5 mg, Oral, Every 12 Hours Scheduled, First dose on 08/05/25 at 1430, Tablet may be crushed and suspended in 60 mL of water or D5W and immediately delivered via NG tube. Avoid grapefruit juice., Indications: Atrial Fibrillation - requiring full anticoagulationIndications:Atrial Fibrillation - requiring full anticoagulation Given 08/07/2025 5:0 7 AM EDT 2.5 mg Given 08/06/2025 5:40 PM EDT 2.5 mg Given 08/06/2025 6:09 AM EDT 2.5 mg aspirin chewable tablet 81 mg 81 mg, Oral, Daily, First dose on 08/03/25 at 0900, Herbal/drug interaction: Avoid use with ginkgo biloba. Based on patient request - if ordered for moderate or severe pain, provider allows for administration of a medication prescribed for a lower pain scale. Do not exceed 4 grams of aspirin in a 24 hr period. If given for pain, use the following pain scale: Mild Pain = Pain Score of 1-3, CPOT 1-2 Moderate Pain = Pain Score of 4-6, CPOT 3-4 Severe Pain = Pain Score of 7-10, CPOT 5-8 Given 08/04/2025 8:06 AM EDT 81 mg Given 08/03/2025 8:44 AM EDT 81 mg bisacodyl (DULCOLAX) EC tablet 5 mg 5 mg, Oral, Daily PRN, Constipation, Use if polyethylene glycol is ineffective, Starting on Tue07/31/25 at 1900, Use if no bowel movement after 12 hours. Swallow whole. Do not crush, split, or chew tablet. bisacodyl (DULCOLAX) suppository 10 mg 10 mg, Rectal, Daily PRN, Constipation, Use if bisacodyl oral is ineffective, Starting on Tue07/31/25 at 1900, Use if no bowel movement after 12 hours. Hold for diarrhea bisacodyl (DULCOLAX) suppository 10 mg 10 mg, Rectal, Once, On Tue07/31/25 at 1554, For 1 dose, Hold for diarrhea Given 07/31/2025 5:27 PM EDT 10 mg budesonide-formoterol (SYMBICORT) 160-4.5 MCG/ACT inhaler 2 puff 2 puff, Inhalation, 2 Times Daily - RT, First dose on Tue07/31/25 at 2130, Include Respiratory Treatment Education (SP) Shake well. Rinse mouth after use, do not swallow water. Send aerosols to pharmacy in ziplock bag for proper disposal. Given 08/07/2025 7:42 AM EDT 2 puffs Given 08/06/2025 10:04 PM EDT 2 puffs Given 08/06/2025 8:45 AM EDT 2 puffs carvedilol (COREG) tablet 6.25 mg 6.25 mg, Oral, 2 Times Daily With Meals, First dose on Tue07/31/25 at 2000, Hold for SBP less than 100, DBP less than 60, or heart rate less than 50. If a dose is held, please contact the provider. Give with food. Given 08/07/2025 9:01 AM EDT 6.25 mg Given 08/06/2025 5:40 PM EDT 6.25 mg Given 08/06/2025 9:03 AM EDT 6.25 mg clopidogrel (PLAVIX) tablet 75 mg 75 mg, Oral, Daily, First dose on Tue07/31/25 at 2000 Given 08/07/2025 9:01 AM EDT 75 mg Given 08/06/2025 9:03 AM EDT 75 mg Given 08/05/2025 9:10 AM EDT 75 mg digoxin (LANOXIN) tablet 125 mcg 125 mcg, Oral, Daily Digoxin, First dose on Sadaf 08/01/25 at 1200, Check and record heart rate. Given 08/07/2025 11:57 AM EDT 125 mcg Given 08/06/2025 12:01 PM EDT 125 mcg Given 08/05/2025 12:07 PM EDT 125 mcg famotidine (PEPCID) tablet 20 mg 20 mg, Oral, Once, On Tue08/02/25 at 1249, For 1 dose Given 08/02/2025 1:52 PM EDT 20 mg fentaNYL citrate (PF) (SUBLIMAZE) injection 50 mcg 50 mcg, Intravenous, Every 5 Minutes PRN, Severe Pain, breakthrough pain, Starting on Tue08/02/25 at 1632, For 4 doses, PACU only. Maximum cumulative total dose of fentanyl is 100 mcg (30 MME) If given for pain, use the following pain scale: Mild Pain = Pain Score of 1-3, CPOT 1-2 Moderate Pain = Pain Score of 4-6, CPOT 3-4 Severe Pain = Pain Score of 7-10, CPOT 5-8 Given 08/02/2025 5:03 PM EDT 50 mcg gabapentin (NEURONTIN) capsule 600 mg 600 mg, Oral, 2 Times Daily With Meals, First dose on Tue07/31/25 at 1999, Do not crush or chew the capsules. The drug may not work as designed if the capsule is crushed or chewed. Swallow whole. For nasogastric or slurry administration: Remove the plunger from a 60 mL syringe Open the gabapentin capsule and transfer the powder contained within to the syringe Add at least 30 mL of warm water into the syringe Replace the plunger, leaving room for mixing Mix the contents thoroughly until the powder dissolves and forms a fine suspension Administer directly from the syringe Flush tube before and after administration (SHIRA) Given 08/07/2025 9:01 AM EDT 600 mg Given 08/06/2025 5:40 PM EDT 600 mg Given 08/06/2025 9:02 AM EDT 600 mg heparin (porcine) injection 1,330 Units 1,330 Units (rounded from 1,332.5 Units = 25 Units/kg 53.3 kg), Intravenous, Once, On Sadaf 08/01/25 at 2145, For 1 dose, Indications: Other - full anticoagulationIndications :Other - full anticoagulation Given 08/01/2025 9:18 PM EDT 1,330 Units heparin (porcine) injection 2,600 Units 2,600 Units, Intravenous, Once, On Sadaf 08/01/25 at 0145, For 1 dose, Indications: Acute Coronary SyndromeIndications:Acute Coronary Syndrome Given 08/01/2025 1:13 AM EDT 2,600 Units heparin (porcine) injection 3,000 Units 3,000 Units, Intravenous, Once, On 08/04/25 at 2345, For 1 dose, Indications: Heparin BolusIndications:Heparin Bolus Given 08/04/2025 10:58 PM EDT 3,000 Units heparin 71902 units/250 mL (100 units/mL) in 0.45 % NaCl infusion 19 Units/kg/hr 53.3 kg (10.127 mL/hr, rounded to 10.12 mL/hr), Intravenous, Titrated, Starting on 07/31/25 at 1612, Pharmacy dosing - Cardiac or Other NOT VTE - Boluses (No initial bolus), Indications: Cardiac or other NOT VTEIndications:Cardiac or other NOT VTE Rate Change (DUAL SIGN) 08/02/2025 7:19 AM EDT 19 Units/kg/hr 10.12 mL/hr New Bag 08/01/2025 9:21 PM EDT 18 Units/kg/hr 9.59 mL/h r Rate Change (DUAL SIGN) 08/01/2025 9:15 PM EDT 18 Units/kg /hr 9.59 mL/hr heparin 61769 units/250 mL (100 units/mL) in 0.45 % NaCl infusion 16 Units/kg/hr 53.3 kg (8.528 mL/hr, rounded to 8.52 mL/hr), Intravenous, Titrated, Starting on 08/04/25 at 1130, Pharmacy dosing - Cardiac or Other NOT VTE - Boluses (No initial bolus), Indications: Cardiac or other NOT VTEIndications:Cardiac or other NOT VTE Rate Change (DUAL SIGN) 08/05/2025 6:39 AM EDT 16 Units/kg/hr 8.52 mL/hr Rate Change (DUAL SIGN) 08/04/2025 10:58 PM EDT 15 Units/k g/hr 7.99 mL/hr Currently Infusing 08/04/2025 11:04 AM EDT 12 Units/kg/hr 6.39 mL/hr hydrALAZINE (APRESOLINE) injection 5 mg 5 mg, Intravenous, Every 10 Minutes PRN, High Blood Pressure, for systolic blood pressure greater than 180 mmHg or diastolic blood pressure greater than 105 mmHg, Starting on Tue08/02/25 at 1632, Up to 20 mg. Caution: Look alike/sound alike drug alert Given 08/02/2025 4:48 PM EDT 5 mg HYDROcodone-acetaminophen (NORCO) 10-325 MG per tablet 1 tablet 1 tablet, Oral, Every 4 Hours PRN, Moderate Pain, Starting on 08/05/25 at 0924, For 5 days, Based on patient request [...] Pain Score of 7-10, CPOT 5-8 Given 08/06/2025 12:01 PM EDT 1 tablet Given 08/06/2025 6:08 AM EDT 1 tablet Given 08/05/2025 9:12 PM EDT 1 tablet HYDROcodone-acetaminophen (NORCO) 5-325 MG per tablet 1 tablet 1 tablet, Oral, Every 6 Hours PRN, Moderate Pain, Severe Pain, Starting on Sadaf 08/01/25 at 1116, For 5 days, Based on patient request [...] Pain Score of 7-10, CPOT 5-8 Given 08/04/2025 11:28 PM EDT 1 tablet Given 08/04/2025 5:15 PM EDT 1 tablet Given 08/04/2025 8:53 AM EDT 1 tablet HYDROcodone-acetaminophen (NORCO) 5-325 MG per tablet 1 tablet 1 tablet, Oral, Every 4 Hours PRN, Moderate Pain, Severe Pain, Starting on Tue08/05/25 at 0102, Based on patient request - if ordered [...] Pain Score of 7-10, CPOT 5-8 Given 08/05/2025 5:51 AM EDT 1 tablet Hydrocortisone (Perianal) (ANUSOL-HC) 2.5 % rectal cream Rectal, 2 Times Daily, First dose on Tue08/05/25 at 1115 Given 08/07/2025 9:03 AM EDT Given 08/06/2025 9:13 PM EDT 1 Application Given 08/06/2025 9:03 AM EDT HYDROmorphone (DILAUDID) injection 0.25 mg 0.25 mg, Intravenous, Every 2 Hours PRN, Severe Pain, Starting on Tue07/31/25 at 1538, For 5 days, Based on patient request [...] Pain Score of 7-10, CPOT 5-8 Given 08/01/2025 2:34 PM EDT 0.25 mg Given 08/01/2025 9:57 AM EDT 0.25 mg Given 08/01/2025 1:03 AM EDT 0.25 mg HYDROmorphone (DILAUDID) injection 0.5 mg 0.5 mg, Intravenous, Once, On Tue07/31/25 at 1429, For 1 dose, Based on patient request [...] Pain Score of 7-10, CPOT 5-8 Given 07/31/2025 3:08 PM EDT 0.5 mg HYDROmorphone (DILAUDID) injection 0.5 mg 0.5 mg, Intravenous, Every 2 Hours PRN, Severe Pain, Starting on Sadaf 08/01/25 at 1720, For 4 days, Based on patient request - if ordered for moderate or severe pain, provider allows for administration of a medication prescribed for a lower pain scale. If given for pain, use the following pain scale: Mild Pain = Pain Score of 1-3, CPOT 1-2 Moderate Pain = Pain Score of 4-6, CPOT 3-4 Severe Pain = Pain Score of 7-10, CPOT 5-8 Given 08/04/2025 12:26 PM EDT 0.5 mg Given 08/02/2025 6:45 PM EDT 0.5 mg Given 08/02/2025 10:18 AM EDT 0.5 mg HYDROmorphone (DILAUDID) injection 0.5 mg 0.5 mg, Intravenous, Every 4 Hours PRN, Severe Pain, Starting on 08/04/25 at 2040, For 1 day, Based on patient request - if ordered for moderate or severe pain, provider allows for administration of a medication prescribed for a lower pain scale. If given for pain, use the following pain scale: Mild Pain = Pain Score of 1-3, CPOT 1-2 Moderate Pain = Pain Score of 4-6, CPOT 3-4 Severe Pain = Pain Score of 7-10, CPOT 5-8 Given 08/04/2025 9:40 PM EDT 0.5 mg HYDROmorphone (DILAUDID) injection 0.5 mg 0.5 mg, Intravenous, Every 2 Hours PRN, Severe Pain, Starting on Tue08/05/25 at 0102, For 9 hours, Based on patient request - if ordered for moderate or severe pain, provider allows for administration of a medication prescribed for a lower pain scale. If given for pain, use the following pain scale: Mild Pain = Pain Score of 1-3, CPOT 1-2 Moderate Pain = Pain Score of 4-6, CPOT 3-4 Severe Pain = Pain Score of 7-10, CPOT 5-8 Given 08/05/2025 9:07 AM EDT 0.5 mg Given 08/05/2025 1:10 AM EDT 0.5 mg HYDROmorphone (DILAUDID) injection 1 mg 1 mg, Intravenous, Every 2 Hours PRN, Severe Pain, Starting on Tue08/05/25 at 0923, For 2 days 5 hours, Based on patient request - if ordered for moderate or severe pain, provider allows for administration of a medication prescribed for a lower pain scale. (SHIRA) Caution: Look alike/sound alike drug alert If given for pain, use the following pain scale: Mild Pain = Pain Score of 1-3, CPOT 1-2 Moderate Pain = Pain Score of 4-6, CPOT 3-4 Severe Pain = Pain Score of 7-10, CPOT 5-8 Given 08/07/2025 2:17 AM EDT 1 mg Given 08/05/2025 10:23 PM EDT 1 mg Given 08/05/2025 12:07 PM EDT 1 mg lactated ringers infusion 9 mL/hr, Intravenous, Continuous, Starting on Tue08/02/25 at 1256, For 1 day, May switch to NS IV at [facility] if renal / if indicated Restarted 08/02/2025 4:29 PM EDT Currently Infusing 08/02/2025 2:21 PM EDT 9 mL/ hr New Bag 08/02/2025 1:52 PM EDT 9 mL/hr 9 mL/hr mupirocin (BACTROBAN) 2 % nasal ointment 1 Application 1 Application, Each Nare, 2 Times Daily, First dose on 08/03/25 at 0445, For 5 days, Administer for 5 days, even if patient transferred out of critical care. MUPIROCIN APPLICATION: 1. Place patient's bed at 30 degrees, if tolerated. 2. Wash your hands with warm soapy water or use hand tobacco packing machine operator. 3. Open the tube of mupirocin 2%. 4. Squeeze about 0.5 g (blueberry-size) of mupirocin from the tube onto a sterile applicator or a cotton swab. 5. Apply the swab directly into nostril. Ensure coating of the sides of the nostril. 6. Repeat with second sterile applicator for other nostril. 7. Gently press the sides of the nostrils together and massage gently for 60 seconds. ([facility]) Given 08/07/2025 9:01 AM EDT 1 Ap plication Given 08/06/2025 9:13 PM EDT 1 Application Given 08/06/2025 9:03 AM EDT 1 Application naloxone (NARCAN) injection 0.4 mg 0.4 mg, Intravenous, Every 5 Minutes PRN, Respiratory Depression, Starting on Sadaf 08/01/25 at 1720, If Respiratory Rate Less Than 8 or Patient is Difficult to Arouse, Stop ALL Narcotics & Contact Provider. Administer Slow IV Push. Repeat As Ordered Until Respiratory Rate is Greater Than 12. nitroglycerin (NITROSTAT) SL tablet 0.4 mg 0.4 mg, Sublingual, Every 5 Minutes PRN, Chest Pain, Starting on 07/31/25 at 1415, If Pain Unrelieved After 3 Doses Notify MD May administer up to 3 doses per episode. Hold if SBP less than 100. oxyCODONE (ROXICODONE) immediate release tablet 5 mg 5 mg, Oral, Every 4 Hours PRN, Severe Pain, Starting on 07/31/25 at 1538, For 5 days, Based on patient request - if ordered for moderate or severe pain, provider allows for administration of a medication prescribed for a lower pain scale. (SHIRA) If given for pain, use the following pain scale: Mild Pain = Pain Score of 1-3, CPOT 1-2 Moderate Pain = Pain Score of 4-6, CPOT 3-4 Severe Pain = Pain Score of 7-10, CPOT 5-8 Given 08/01/2025 4:17 AM EDT 5 mg Given 07/31/2025 8:47 PM EDT 5 mg polyethylene glycol (MIRALAX) packet 17 g 17 g, Oral, Daily PRN, Constipation, Use if senna-docusate is ineffective, Starting on Tue07/31/25 at 1900, Use if no bowel movement after 12 hours. Mix in 6-8 ounces of water. Use 4-8 ounces of water, tea, or juice for each 17 gram dose. pravastatin (PRAVACHOL) tablet 40 mg 40 mg, Oral, Daily, First dose on Tue07/31/25 at 2000, Avoid grapefruit juice. Given 08/06/2025 9:02 AM EDT 40 mg Given 08/05/2025 9:10 AM EDT 40 mg Given 08/04/2025 8:06 AM EDT 40 mg QUEtiapine (SEROquel) tablet 12.5 mg 12.5 mg, Oral, Every 12 Hours PRN, agitation, sleep, Starting on Tue07/31/25 at 1900, Caution: Look alike/sound alike drug alert Given 08/05/2025 9:03 PM EDT 12.5 mg Given 08/04/2025 8:31 PM EDT 12.5 mg Given 08/03/2025 8:52 PM EDT 12.5 mg sennosides-docusate (PERICOLACE) 8.6-50 MG per tablet 2 tablet 2 tablet, Oral, 2 Times Daily, First dose on Tue07/31/25 at 2100, HOLD MEDICATION IF PATIENT HAS HAD BOWEL MOVEMENT. Start bowel management regimen if patient has not had a bowel movement after 12 hours. Given 08/07/2025 9:01 AM EDT 2 tablets Given 08/06/2025 9:13 PM EDT 2 tablets Given 08/06/2025 9:03 AM EDT 2 tablets sodium chloride 0.9 % bolus 500 mL 500 mL, Intravenous, at 500 mL/hr, Administer over 1 Hours, Once, On Tue07/31/25 at 1429, For 1 dose New Bag 07/31/2025 3:08 PM EDT 500 mL 500 mL/hr sodium chloride 0.9 % flush 10 mL 10 mL, Intravenous, Every 12 Hours Scheduled, First dose on Tue07/31/25 at 2100 Given 08/07/2025 9:02 AM EDT 10 mL Given 08/06/2025 9:13 PM EDT 10 mL Given 08/06/2025 9:03 AM EDT 10 mL tamsulosin (FLOMAX) 24 hr capsule 0.4 mg 0.4 mg, Oral, Daily, First dose on Tue08/05/25 at 1600, Do not crush or chew the capsules or tablets. The drug may not work as designed if the capsule or tablet is crushed or chewed. Swallow whole. If patient unable to swallow whole, contact pharmacy for alternative. Given 08/07/2025 9:01 AM EDT 0.4 mg Given 08/06/2025 9:03 AM EDT 0.4 mg Given 08/05/2025 3:52 PM EDT 0.4 mg documented in this encounter Active and Recently Administered Medications Times are shown in EDT. Scheduled Medication Order 08/05/2025 08/06/2025 08/07/2025 apixaban (ELIQUIS) tablet 2.5 mg 2.5 mg, Oral, Every 12 Hours Scheduled, First dose on Tue08/05/25 at 1430, Tablet may be crushed and suspended in 60 mL of water or D5W and immediately delivered via NG tube. Avoid grapefruit juice., Indications: Atrial Fibrillation - requiring full anticoagulation 1455 (Given - Provider: Arlette Alonso, RN) 0609 (Given - Provider: Olga Shannon, RN)1740 (Given - Provider: Arlette Alonos RN) 0507 (Given - Provider: Bonny Jimenez RN) budesonide-formoterol (SYMBICORT) 160-4.5 MCG/ACT inhaler 2 puff 2 puff, Inhalation, 2 Times Daily - RT, First dose on Tue07/31/25 at 2130, Include Respiratory Treatment Education (SP) Shake well. Rinse mouth after use, do not swallow water. Send aerosols to pharmacy in ziplock bag for proper disposal. 1000 (Given - Provider: William Burnett, ENID)2055 (Given - Provider: Lester Veloz, ENID) 0845 (Given - Provider: Holly Alvarez RRT)2204 (Given - Provider: Kate Arroyo, ENID) 0742 (Given - Provider: Krystal Bustillos, ENID)1234 (Not Given - Provider: Krystal Bustillos RRT - Reason: Patient not available) carvedilol (COREG) tablet 6.25 mg 6.25 mg, Oral, 2 Times Daily With Meals, First dose on Tue07/31/25 at 1999, Hold for SBP less than 100, DBP less than 60, or heart rate less than 50. If a dose is held, please contact the provider. Give with food. 910 (Given - Provider: Arlette Alonso RN)1823 (Given - Provider: Arlette Alonso RN) 902 (Given - Provider: Arlette Alonso RN)1739 (Given - Provider: Arlette Alonso RN) 900 (Given - Provider: Lucy Salgado RN) clopidogrel (PLAVIX) tablet 75 mg 75 mg, Oral, Daily, First dose on Tue07/31/25 at 1999 09 (Given - Provider: Arlette Alonso RN) 902 (Given - Provider: Arlette Alonso RN) 900 (Given - Provider: Lucy Salgado RN) digoxin (LANOXIN) tablet 125 mcg 125 mcg, Oral, Daily Digoxin, First dose on Tue08/01/25 at 1200, Check and record heart rate. 1207 (Given - Provider: Arlette Alonso RN) 1201 (Given - Provider: Arlette Alonso RN) 1157 (Given - Provider: Jessica Titus RN) gabapentin (NEURONTIN) capsule 600 mg 600 mg, Oral, 2 Times Daily With Meals, First dose on Tue07/31/25 at 1999, Do not crush or chew the capsules. The drug may not work as designed if the capsule is crushed or chewed. Swallow whole. For nasogastric or slurry administration: Remove the plunger from a 60 mL syringe Open the gabapentin capsule and transfer the powder contained within to the syringe Add at least 30 mL of warm water into the syringe Replace the plunger, leaving room for mixing Mix the contents thoroughly until the powder dissolves and forms a fine suspension Administer directly from the syringe Flush tube before and after administration (SHIRA) 910 (Given - Provider: Arlette Alonso RN)1823 (Given - Provider: Arlette Alonso RN) 901 (Given - Provider: Areltte Alonso RN)1739 (Given - Provider: Arlette Alonso RN) 09 (Given - Provider: Lucy Salgado RN) Hydrocortisone (Perianal) (ANUSOL-HC) 2.5 % rectal cream Rectal, 2 Times Daily, First dose on 08/05/25 at 1115 1454 (Given - Provider: Arlette Alonso RN)2044 (Given - Provider: Olga Shannon RN) 902 (Given - Provider: Arlette Alonso RN)2112 (Given - Provider: Bonny Jimenez, RN) 902 (Given - Provider: Lucy Salgado, RN) mupirocin (BACTROBAN) 2 % nasal ointment 1 Application 1 Application, Each Nare, 2 Times Daily, First dose on Tue08/03/25 at 0445, For 5 days, Administer for 5 days, even if patient transferred out of critical care. MUPIROCIN APPLICATION: 1. Place patient's bed at 30 degrees, if tolerated. 2. Wash your hands with warm soapy water or use hand tobacco packing machine operator. 3. Open the tube of mupirocin 2%. 4. Squeeze about 0.5 g (blueberry-size) of mupirocin from the tube onto a sterile applicator or a cotton swab. 5. Apply the swab directly into nostril. Ensure coating of the sides of the nostril. 6. Repeat with second sterile applicator for other nostril. 7. Gently press the sides of the nostrils together and massage gently for 60 seconds. ([facility]) 0911 (Given - Provider: Arlette Alonso RN)2044 (Given - Provider: Olga Shannon RN) 902 (Given - Provider: Arlette Alonso RN)2112 (Given - Provider: Bonny Jimenez, BRAVO) 900 (Given - Provider: Lucy Salgado, BRAVO) pravastatin (PRAVACHOL) tablet 40 mg 40 mg, Oral, Daily, First dose on Tue07/31/25 at 2000, Avoid grapefruit juice. 09 (Given - Provider: Arlette Alonso RN) 901 (Given - Provider: Arlette Alonso RN) sennosides-docusate (PERICOLACE) 8.6-50 MG per tablet 2 tablet(Linked Group 1) 2 tablet, Oral, 2 Times Daily, First dose on Tue07/31/25 at 2100, HOLD MEDICATION IF PATIENT HAS HAD BOWEL MOVEMENT. Start bowel management regimen if patient has not had a bowel movement after 12 hours. 910 (Given - Provider: Arlette Alonso RN)2044 (Given - Provider: Olga Shannon RN) 902 (Given - Provider: Arlette Alonso RN)2112 (Given - Provider: Bonny Jimenez, BRAVO) 900 (Given - Provider: Lucy Salgado RN) sodium chloride 0.9 % flush 10 mL 10 mL, Intravenous, Every 12 Hours Scheduled, First dose on Tue07/31/25 at 2100 09 (Given - Provider: Arlette Alonso RN)2044 (Given - Provider: Olga Shannon RN) 902 (Given - Provider: Arlette Alonso RN)2112 (Given - Provider: Bonny Jimenez RN) 901 (Given - Provider: Lucy Salgado RN) tamsulosin (FLOMAX) 24 hr capsule 0.4 mg 0.4 mg, Oral, Daily, First dose on Tue08/05/25 at 1600, Do not crush or chew the capsules or tablets. The drug may not work as designed if the capsule or tablet is crushed or chewed. Swallow whole. If patient unable to swallow whole, contact pharmacy for alternative. 155 (Given - Provider: Arlette Alonso RN) 902 (Given - Provider: Arlette Alonso RN) 900 (Given - Provider: Lucy Salgado RN) Continuous Medication Order 08/05/2025 08/06/2025 08/07/2025 heparin 26636 units/250 mL (100 units/mL) in 0.45 % NaCl infusion (CANCELED) 16 Units/kg/hr 53.3 kg (8.528 mL/hr, rounded to 8.52 mL/hr), Intravenous, Titrated, Starting on Tue08/04/25 at 1130, Pharmacy dosing - Cardiac or Other NOT VTE - Boluses (No initial bolus), Indications: Cardiac or other NOT VTE 0639 (Rate Change (DUAL SIGN) - Provider: Orquidea Shelton RN)1453 (Stopped - Provider: Arlette Alonso RN - Comment: [Order ends at this time. Document the following action when infusion is complete: Stopped]) PRN Medication Order 08/05/2025 08/06/2025 08/07/2025 acetaminophen (TYLENOL) 160 MG/5ML oral solution 650 mg(Linked Group 2) 650 mg, Oral, Every 4 Hours PRN, Mild Pain, Starting on Tue07/31/25 at 1900, If given for fever, use fever parameter: [...] = Pain Score of 7-10, CPOT 5-8 1346 (Not Given: See Alt - Provider: Lucy Salgado RN) acetaminophen (TYLENOL) suppository 650 mg(Linked Group 2) 650 mg, Rectal, Every 4 Hours PRN, Mild Pain, Starting on Tue07/31/25 at 1900, If given for fever, use fever parameter: [...] = Pain Score of 7-10, CPOT 5-8 1346 (Not Given: See Alt - Provider: Lucy Salgado RN) acetaminophen (TYLENOL) tablet 650 mg(Linked Group 2) 650 mg, Oral, Every 4 Hours PRN, Mild Pain, Starting on Tue07/31/25 at 1900, If given for fever, use fever parameter: [...] = Pain Score of 7-10, CPOT 5-8 1346 (Given - Provider: Lucy Salgado RN) bisacodyl (DULCOLAX) EC tablet 5 mg(Linked Group 1) 5 mg, Oral, Daily PRN, Constipation, Use if polyethylene glycol is ineffective, Starting on Tue07/31/25 at 1900, Use if no bowel movement after 12 hours. Swallow whole. Do not crush, split, or chew tablet. bisacodyl (DULCOLAX) suppository 10 mg(Linked Group 1) 10 mg, Rectal, Daily PRN, Constipation, Use if bisacodyl oral is ineffective, Starting on Tue07/31/25 at 1900, Use if no bowel movement after 12 hours. Hold for diarrhea Calcium Replacement - Follow Nurse / BPA Driven Protocol Open Order & [facility] Electrolyte Replacement Protocol Algorithm to View Details HYDROcodone-acetaminophen (NORCO) 10-325 MG per tablet 1 tablet 1 tablet, Oral, Every 4 Hours PRN, Moderate Pain, Starting on Tue08/05/25 at 0924, For 5 days, Based on patient request [...] = Pain Score of 7-10, CPOT 5-8 0949 (Given - Provider: Arlette Alonso RN)2112 (Given - Provider: Olga Shannon, BRAVO) 0608 (Given - Provider: Olga Shannon, BRAVO)1201 (Given - Provider: Arlette Alonso RN) HYDROcodone-acetaminophen (NORCO) 5-325 MG per tablet 1 tablet (CANCELED) 1 tablet, Oral, Every 4 Hours PRN, Moderate Pain, Severe Pain, Starting on Tue08/05/25 at 0102, Based on patient request - if ordered [...] = Pain Score of 7-10, CPOT 5-8 0551 (Given - Provider: Orquidea Shelton RN) HYDROmorphone (DILAUDID) injection 0.5 mg (CANCELED) 0.5 mg, Intravenous, Every 2 Hours PRN, Severe Pain, Starting on Tue08/05/25 at 0102, For 9 hours, Based on patient request - if ordered for moderate or severe pain, provider allows for administration of a medication prescribed for a lower pain scale. If given for pain, use the following pain scale: Mild Pain = Pain Score of 1-3, CPOT 1-2 Moderate Pain = Pain Score of 4-6, CPOT 3-4 Severe Pain = Pain Score of 7-10, CPOT 5-8 0110 (Given - Provider: Orquidea Shelton RN)0907 (Given - Provider: Arlette Alonso RN) HYDROmorphone (DILAUDID) injection 1 mg 1 mg, Intravenous, Every 2 Hours PRN, Severe Pain, Starting on Tue08/05/25 at 0923, For 2 days 5 hours, Based on patient request - if ordered for moderate or severe pain, provider allows for administration of a medication prescribed for a lower pain scale. (SHIRA) Caution: Look alike/sound alike drug alert If given for pain, use the following pain scale: Mild Pain = Pain Score of 1-3, CPOT 1-2 Moderate Pain = Pain Score of 4-6, CPOT 3-4 Severe Pain = Pain Score of 7-10, CPOT 5-8 1207 (Given - Provider: Arlette Alonso RN)2223 (Given - Provider: Olga Shannon RN) 0217 (Given - Provider: Bonny Jimenez RN) Magnesium Standard Dose Replacement - Follow Nurse / BPA Driven Protocol Open Order & [facility] Electrolyte Replacement Protocol Algorithm to View Details naloxone (NARCAN) injection 0.4 mg(Linked Group 3) 0.4 mg, Intravenous, Every 5 Minutes PRN, Respiratory Depression, Starting on Sadaf 08/01/25 at 1720, If Respiratory Rate Less Than 8 or Patient is Difficult to Arouse, Stop ALL Narcotics & Contact Provider. Administer Slow IV Push. Repeat As Ordered Until Respiratory Rate is Greater Than 12. nitroglycerin (NITROSTAT) SL tablet 0.4 mg 0.4 mg, Sublingual, Every 5 Minutes PRN, Chest Pain, Starting on Tue07/31/25 at 1415, If Pain Unrelieved After 3 Doses Notify MD May administer up to 3 doses per episode. Hold if SBP less than 100. nitroglycerin (NITROSTAT) SL tablet 0.4 mg 0.4 mg, Sublingual, Every 5 Minutes PRN, Chest Pain, Starting on Tue08/02/25 at 1729, Notify Provider if Pain Unrelieved After 3 Doses May administer up to 3 doses per episode. Hold if SBP less than 100. Phosphorus Replacement - Follow Nurse / BPA Driven Protocol Open Order & [facility] Electrolyte Replacement Protocol Algorithm to View Details polyethylene glycol (MIRALAX) packet 17 g(Linked Group 1) 17 g, Oral, Daily PRN, Constipation, Use if senna-docusate is ineffective, Starting on Tue07/31/25 at 1900, Use if no bowel movement after 12 hours. Mix in 6-8 ounces of water. Use 4-8 ounces of water, tea, or juice for each 17 gram dose. Potassium Replacement - Follow Nurse / BPA Driven Protocol Open Order & [facility] Electrolyte Replacement Protocol Algorithm to View Details QUEtiapine (SEROquel) tablet 12.5 mg 12.5 mg, Oral, Every 12 Hours PRN, agitation, sleep, Starting on Tue07/31/25 at 1900, Caution: Look alike/sound alike drug alert 2102 (Given - Provider: Olga Shannon, BRAVO) sodium chloride 0.9 % flush 10 mL 10 mL, Intravenous, As Needed, Line Care, Starting on Tue07/31/25 at 1900 sodium chloride 0.9 % infusion 40 mL 40 mL, Intravenous, at 100 mL/hr, As Needed, Line Care, Starting on Tue07/31/25 at 1900, Following administration of an IV intermittent medication, flush line with 40mL NS at 100mL/hr. Linked Groups Order Group 1: sennosides-docusate (PERICOLACE) 8.6-50 MG per tablet 2 tabletJump to med 2 tablet, Oral, 2 Times Daily, First dose on Tue07/31/25 at 2100, HOLD MEDICATION IF PATIENT HAS HAD BOWEL MOVEMENT. Start bowel management regimen if patient has not had a bowel movement after 12 hours. And polyethylene glycol (MIRALAX) packet 17 gJump to med 17 g, Oral, Daily PRN, Constipation, Use if senna-docusate is ineffective, Starting on Tue07/31/25 at 1900, Use if no bowel movement after 12 hours. Mix in 6-8 ounces of water. Use 4-8 ounces of water, tea, or juice for each 17 gram dose. And bisacodyl (DULCOLAX) EC tablet 5 mgJump to med 5 mg, Oral, Daily PRN, Constipation, Use if polyethylene glycol is ineffective, Starting on Tue07/31/25 at 1900, Use if no bowel movement after 12 hours. Swallow whole. Do not crush, split, or chew tablet. And bisacodyl (DULCOLAX) suppository 10 mgJump to med 10 mg, Rectal, Daily PRN, Constipation, Use if bisacodyl oral is ineffective, Starting on Tue07/31/25 at 1900, Use if no bowel movement after 12 hours. Hold for diarrhea Group 2: acetaminophen (TYLENOL) tablet 650 mgJump to med 650 mg, Oral, Every 4 Hours PRN, Mild Pain, Starting on Tue07/31/25 at 1900, If given for fever, use fever parameter: [...] 4 Hours PRN, Mild Pain, Starting on 07/31/25 at 1900, If given for fever, use fever parameter: [...] 4 Hours PRN, Mild Pain, Starting on 07/31/25 at 1900, If given for fever, use fever parameter: [...] Score of 7-10, CPOT 5-8 Group 3: HYDROmorphone (DILAUDID) injection 0.5 mg (CANCELED) 0.5 mg, Intravenous, Every 2 Hours PRN, Severe Pain, Starting on Sadaf 08/01/25 at 1720, For 4 days, Based on patient request - if ordered for moderate or severe pain, provider allows for administration of a medication prescribed for a lower pain scale. If given for pain, use the following pain scale: Mild Pain = Pain Score of 1-3, CPOT 1-2 Moderate Pain = Pain Score of 4-6, CPOT 3-4 Severe Pain = Pain Score of 7- 10, CPOT 5-8 And naloxone (NARCAN) injection 0.4 mgJump to med 0.4 mg, Intravenous, Every 5 Minutes PRN, Respiratory Depression, Starting on Sadaf 08/01/25 at 1720, If Respiratory Rate Less Than 8 or Patient is Difficult to Arouse, Stop ALL Narcotics & Contact Provider. Administer Slow IV Push. Repeat As Ordered Until Respiratory Rate is Greater Than 12. 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
--- OUTSIDE RECORDS SUMMARY | 2025-08-02 12:48 | XMS_ITS | Encounter Summary ---
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 Name Role Phone Alexis Anand MD Primary Care Provider [phone] Reason for Visit * Reason Comments Wound Infection * Auth/Cert Specialty Diagnoses / Procedures Referred By Gumaro ferrera Referred To Contact Diagnoses Claudication Critical limb ischemia of left lower extremity Referral ID Status Reason Start Date Expiration Date Visits Re quested Visits Authorized [id number] 1 1 Encounter Details Date Type Department Care Team (Late st Contact Info) Description 08/02/2025 1:48 PM EDT - 08/02/2025 5:54 PM EDT Surgery [facility] [address] [facility] [place] [id number] Junior Zhao MD [address] [place] [address] FEMORAL POPLITEAL BYPASS Social History Tobacco Use Types Packs/Day Years [...] and heating? Patient unable to answer 08/01/2025 [facility] - Occupational [...] daily living? Patient unable to answer 08/01/2025 [facility] Utilities Answer Date Recorded In the past 12 months has th e [employer], gas, oil, or water company threatened to [...] Stability Answer Date Recorded Current Living Arrangements patient unable to an swer 08/01/2025 Potentially Unsafe Housing Conditions patient un able to answer 08/01/2025 Family and Community Support Answer Brian e [...] Sign Reading Time Taken Comments Blood Pressure 128/60 08/02/2025 5:30 PM EDT Pulse 67 08/02/2025 5:30 PM EDT Temperature 36.2 C (97.2 F) 08/02/2025 5:30 PM EDT Respiratory Rate 14 08/02/2025 5:30 PM EDT Oxygen Saturation 95% 08/02/2025 5:30 PM EDT Inhaled Oxygen Concentration - - Weight 53.3 kg (117 lb 8.1 oz) 07/31/2025 12:56 PM EDT Height 149.9 cm (4' 11 ) 07/31/2025 12:56 PM EDT Body Mass Index 27.68 08/04/2025 5:00 PM [...] 12:58 PM EDT Karis August RN * [place] Suicide Severity Rating Scale (Screener/Recent Self-Report) Question Answer Date of Assessment Author 1. Wish to be (Past 1 Month) No 12:58 PM EDT Karis August RN 2. Non-Specific Active Suici nilton Thoughts (Past 1 Month) No 07/31/2025 12:58 PM EDT Michelle August RN 6. Suicidal Behavior (Lifetime) No 12:58 PM EDT Karis August RN documented as of this encounter Discharge Summaries * Neda Ocampo, DO - 08/07/2025 1:43 PM EDT Images from the original note were not included. [facility] Medicine Services DISCHARGE SUMMARY Patient Name: [...] treatment after discharge. Follow-up provider: ALEXIS ANAND [[id number]] Reason/Clinical Findings: Critical limb ischemia of left lower extremity Describe mobility limitations that make leaving home difficult: [place], impaired functional mobility, impaired physical mobility Nursing/Therapeutic Services Requested: Custodial Physical Therapy Occupational Therapy halfway orders: Medication education Cardiopulmonary assessments PT orders: [...] minutes on this discharge activity which included: [id number] with the patient, reviewing the data in the system, coordination of the care with the nursing staff as well as consultants, documentation, and entering orders. documented in this encounter Discharge Instructions * Discharge Instructions* Lucy Salgado RN - 08/07/2025 2:18 PM EDT * Attachments The following attachments cannot be sent through Care Everywhere. * Apixaban Tablets (Tanzanian) * Trouble Peeing (Acute Urinary Retention) in Females: What to Know [id number] (Tanzanian) * Poor Blood Flow (Peripheral Vascular Disease): What to Know (Tanzanian) * Tamsulosin Capsules (Tanzanian) * Hydrocodone; Acetaminophen Capsules or Tablets (Tanzanian) * Surgery to Increase Blood Flow Down the Legs From a Blocked Artery (Femoropopliteal Bypass): What to Expect (Tanzanian) * Surgery to Remove a Toe (Toe Amputation): What to Know After (Tanzanian) documented in this encounter Medications at Time [...] this encounter Progress Notes * Azul Adrian, RD - 08/06/2025 3:04 PM EDT Patient Name: Hattie Santos Date of : 1940 Admission date: 07/31/2025 Reason for Encounter: Follow-up/Progress Note and Pressure Injury Stg 2+ [facility] Clinical Nutrition Assessment Subjective Subjective Information 08/06/25 [...] TOE AMPUTATION; Surgeon: Junior Zhao MD; Location: [facility] HYBRID OR; Service:Vascular; Laterality: Left; FEMORAL POPLITEAL BYPASS Left 08/02/2025 Procedure: FEMORAL POPLITEAL BYPASS; Surgeon: Junior Zhao MD; Location: [facility] HYBRID OR; Service: Vascular; Laterality: Left; Current Problems [...] Symptoms: dental appliance present Skin Wound 08/02/25 1831 medial coccyx Pressure Injury-Pressure Injury Stage: Other (Comment) (worseningITD) (08/05/25 1055) Bowel function Last Bowel Movement: 08/02/25 (08/06/25 0740) Stool Consistency: formed (08/02/25 0352) Edema Edema: leg, left, leg, right (08/06/25 0740) Leg, Left Edema: 1+ (Trace) (08/06/25 0740) Leg, Right Edema: 1+ (Trace) (08/06/25 0740) Intake & Output (last 3 days) 08/03 07 P.O. 480 270 100 I.V. (mL/kg) [...] Adrian RD 08/06/25 15:04 EDT * Virgie Rodriguez, SLASHER TENDER HELPER - 08/06/2025 1:42 PM EDT Images from [...] elderly white female; resting in bed HEENT: [place] conjunctivae, MMM Lungs: Normal respiratory effort Ext: motor intact; left foot dressing removed; left groin and LLE medial aquacel dressings Neuro: Follows simple commands Psych: Apropriate mood, baseline memory loss Labs: Lab Results (last 24 hours) Procedure Component Value Units Date/Time Basic Metabolic Panel [[id number]] (Abnormal) Collected: 08/06/25 105 Specimen: Blood Updated: 08/06/25 1215 Glucose 124 [...] race as a factor CBC (No Diff) [[id number]] (Abnormal) Collected: 08/06/25 105 Specimen: Blood Updated: [...] critical limb ischemia - recent angioplasty in [place] 06/18/25 - multiple stents from iliac down to popliteal and including BOARD CERTIFIED MUSIC THERAPIST - s/p Left femoral to below-knee popliteal [...] from the original note were not included. [facility] Medicine Services PROGRESS NOTE Patient Name: [...] AM-PAC 6 Clicks Score (PT): 12 (08/06/25 4250) CODE STATUS: Code Status and Medical Interventions: CPR (Attempt to Resuscitate); Full Support Ordered at: 07/31/25 1536 Code Status (Patient has no pulse and is not breathing): CPR (Attempt to Resuscitate) Medical Interventions (Patient has pulse or is breathing): Full Support Level Of Support Discussed With: Patient Neda D DO Terrence 08/06/25 * Azul Adrian RD - 08/06/2025 [...] Adrian RD 08/06/25 12:09 EDT * Aicha Costa, [facility] - 08/05/2025 2:11 PM EDT Pharmacy to Dose Heparin Infusion Note Hattie Santos is a 85 y.o. female receiving heparin infusion. Therapy for (VTE/Cardiac): Cardiac (AF) Patient Weight: 53.3kg Initial Bolus (Y/N): No Any Bolus (Y/N): Yes Signs or Symptoms of Bleeding: No; per floriculture teacher or Other (Not VTE) Initial Bolus: 60 [...] Eliquis when stable. Discussed with Dr. Benedict. 08/04 2118 0.1 12 3000 +3 15 0500 Nurse confirmed pump 08/05 0432 0.24 15 -- +1 16 1300 Discussed w/ nurse 08/05 1227 0.1 16 3000 +3 19 1900 DW RN and pump checked w/ wt change to 62.2 kg Aicha Costa RPH 08/05/2025 14:11 EDT * Neda Ocampo, DO - 08/05/2025 1:18 PM EDT Images from the original note were not included. [facility] Medicine Services PROGRESS NOTE Patient Name: [...] Feliciano RD 08/05/25 10:56 EDT * Virgie Rodriguez APRN - 08/05/2025 10:47 AM EDT Images from [...] elderly white female; resting in bed HEENT: [place] conjunctivae, MMM Lungs: Normal respiratory effort Ext: motor intact; left foot dressing; left groin and LLE medial aquacel dressings Neuro: Follows simple commands Psych: Apropriate mood, baseline memory loss Labs: Lab Results (last 24 hours) Procedure Component Value Units Date/Time Heparin Anti-Xa [[id number]] (Abnormal) Collected: 08/05/25 1227 Specimen: Blood Updated: 08/05/25 1339 Heparin Anti-Xa (UFH) 0.10 IU/ml Tissue Pathology Exam [[id number]] Collected: 08/02/25 1546 Specimen: Tissue from Leg, Left; Tissue from Toe, Left Updated: 08/05/25 0746 Basic Metabolic Panel [[id number]] (Abnormal) Collected: 08/05/25431 Specimen: Blood Updated: 08/05/25 0549 Glucose 96 [...] include race as a factor Heparin Anti-Xa [[id number]] (Abnormal) Collected: 08/05/25431 Specimen: Blood Updated: 08/05/25 0542 Heparin Anti-Xa (UFH) 0.24 IU/ml CBC & Differential [[id number]] (Abnormal) Collected: 08/05/25431 Specimen: Blood Updated: 08/05/25516 Narrative: The following orders were created for panel order CBC & Differential. Procedure Abnormality Status --------- ------ CBC Auto Differential[[id number]] AbnormalFinal result Please view results for these tests on the individual orders. CBC Auto Differential [[id number]] (Abnormal) Collected: 08/05/25431 Specimen: Blood Updated: 08/05/25516 [...] 10*3/mm3 nRBC 0.0 /100 WBC Heparin Anti-Xa [[id number]] (Abnormal) Collected: 08/04/252117 Specimen: Blood Updated: 08/04/252146 [...] critical limb ischemia - recent angioplasty in [place] 06/18/25 - multiple stents from iliac down to popliteal and including BOARD CERTIFIED MUSIC THERAPIST - s/p Left femoral to below-knee popliteal [...] Garcia MD - 08/04/2025 12:58 PM EDT PACKAGER MACHINE NOTE Hospital Day: 4 Ms. Hattie Santos, [...] Results from last 7 days Lab Units 08/04/25 0412 08/03/25 0434 08/01/25 0723 WBC 10*3/mm3 10.43 11.48* 17.15* HEMOGLOBIN g/dL 8.7* 9.8* 10.5* HEMATOCRIT % 27.6* 30.2* 33.2* PLATELETS 10*3/mm3 405 360 366 Results from last 7 days Lab Units 08/04/25 0412 08/03/25 0434 08/01/25 0723 07/31/25 1437 SODIUM mmol/L 134* [...] Garcia MD - 08/03/2025 12:36 PM EDT PACKAGER MACHINE NOTE Hospital Day: 3 Ms. Hattie Santos, [...] last 7 days Lab Units 08/03/25 0434 08/01/2572207/31/25 1437 WBC 10*3/mm3 11.48* 17.15* 11.90* HEMOGLOBIN g/dL 9.8* 10.5* 12.2 HEMATOCRIT % 30.2* 33.2* 37.0 PLATELETS 10*3/mm3 360 366 404 Results from last 7 days Lab Units 08/03/25 0434 08/01/2572207/31/25 1437 SODIUM mmol/L 129* 131* 132* POTASSIUM [...] Care Medicine 08/03/25 12:36 EDT * Jalil Benedict, - 08/03/2025 11:58 AM EDT Patient resting [...] from the original note were not included. [facility] Medicine Services PROGRESS NOTE Patient Name: [...] to Resuscitate); Full Support Ordered at: 07/31/25 9797 Code Status (Patient has no pulse and is not breathing): CPR (Attempt to Resuscitate) Medical Interventions (Patient has pulse or is breathing): Full Support Level Of Support Discussed With: Patient Yoli Moreira MD 08/01/25 * Bear Quijano [facility] - 07/31/2025 4:42 PM EDT Pharmacy to [...] Check 07/31 1700 35.2 -- NONE -- 2300 Discussed with RN, verified pump. Bear Tobar RPH 07/31/2025 16:36 EDT documented in this encounter H&P Notes * Yoli Moreira MD - 07/31/2025 3:00 PM EDT Images from the original note were not included. [facility] Medicine Services HISTORY AND PHYSICAL Patient [...] cooperative Neurologic: Speech clear and fluent Skin: [place], slightly irritated area on the coccyx. Extremities: [...] Most notable findings include: LAB RESULTS: Lab 07/31/25143607/25/25171607/24/256 WBC 11.90* 7.91 -- HEMOGLOBIN 12.2 11.1* -- HEMATOCRIT 37.0 34.9 -- PLATELETS 404 285 -- NEUTROS ABS 7.42* 4.37 -- IMMATURE GRANS (ABS) 0.04 0.02 -- LYMPHS ABS 2.70 2.18 -- MONOS ABS 1.12* 0.71 -- EOS ABS 0.58* 0.58* -- MCV 87.9 89.7 -- SED RATE 73* -- -- CRP 2.78* -- -- APTT -- 46.0* 60.8 Lab 07/31/25143607/25/251716 SODIUM 132* 133* POTASSIUM 4.5 4.5 CHLORIDE 97* 99 CO2 24.3 29.7* ANION GAP 10.7 4.3* BUN 13.9 5.9* CREATININE 0.55* 0.53* EGFR 90.5 91.3 GLUCOSE 108* 83 CALCIUM 9.1 8.5* MAGNESIUM -- 1.9 PHOSPHORUS -- 3.2 Lab 07/31/25 14307/25/251716 TOTAL PROTEIN 6.8 -- ALBUMIN 3.8 3.2* GLOBULIN 3.0 -- ALT (SGPT) 20 -- AST (SGOT) 30 -- BILIRUBIN 0.2 -- ALK PHOS 64 -- UA 07/24/2025 22:03 Urinalysis Squamous Epithelial Cells, UA 0-2 Specific [place], UA 1.022 Ketones, UA Negative Blood, UA Negative Leukocytes, UA Small (1+) Nitrite, UA Negative RBC, UA None Seen WBC, UA 6-10 Bacteria, UA None Seen Microbiology Results (last 10 days) Procedure Component Value - Date/Time MRSA Screen, PCR (Inpatient) - Swab, Nares [[id number]] (Abnormal) Collected: 07/24/252054 Lab Status: Final result Specimen: Swab from Nares Updated: 07/25/25808 MRSA PCR Positive Narrative: The negative predictive value of this diagnostic test is high and should only be used to consider de-escalating anti-MRSA therapy. A positive result may indicate colonization with MRSA and must be correlated clinically. Blood Culture - Blood, Arm, Left [[id number]] (Normal) Collected: 07/23/251744 Lab Status: Final result Specimen: Blood from Arm, Left Updated: 07/28/251945 Blood Culture No growth at 5 days Narrative: Less than seven (7) mL's of blood was collected. Insufficient quantity may yield false negative results. Blood Culture - Blood, Arm, Right [[id number]] (Normal) Collected: 07/23/251734 Lab Status: Final result [...] and treated with a Mepilex dressing. - [facility] Hospital delirium - History of hospital delirium, previously managed with seroquel - Continue PRN seroquel Total time spent: 75 minutes Time spent includes time reviewing chart, bube-dc-lwyz time, counseling patient/family/caregiver, ordering medications/tests/procedures, communicating with other health child caregiver private home, documenting clinical information in the electronic health [...] Yoli Moreira MD 07/31/25 Patient or patient brand representative verbalized consent for the use of [...] elderly white female; resting in bed HEENT: [place] conjunctivae, MMM Lungs: Normal respiratory effort Ext: motor intact; left great toe necrosis; no palpable left pedals Neuro: Follows simple commands Psych: Apropriate mood ?baseline memory loss? Relevant Results: Imaging Results (Last 48 Hours) No results found for the last 48 hours. Lab Results (last 48 hours) Procedure Component Value Units Date/Time Basic Metabolic Panel [[id number]] (Abnormal) Collected: 08/01/25722 Specimen: Blood Updated: 08/01/25826 Glucose 102 mg/dL [...] race as a factor CBC & Differential [[id number]] (Abnormal) Collected: 08/01/25722 Specimen: Blood Updated: 08/01/25758 Narrative: The following orders were created for panel order CBC & Differential. Procedure Abnormality Status --------- ------ CBC Auto Differential[[id number]] Abnormal Final result Please view results for these tests on the individual orders. CBC Auto Differential [[id number]] (Abnormal) Collected: 08/01/25722 Specimen: Blood Updated: 08/01/25758 [...] 0.07 10*3/mm3 nRBC 0.0 /100 WBC aPTT [[id number]] (Abnormal) Collected: 07/31/25 2252 Specimen: Blood Updated: 08/01/25 0047 PTT 34.8 seconds Narrative: PTT = The equivalent PTT values for the therapeutic range of heparin levels at 0.3 to 0.5 U/ml are 60 to 70 seconds. Heparin Anti-Xa [[id number]] (Normal) Collected: 07/31/25 1615 Specimen: Blood from Arm, Right Updated: 07/31/25 1635 Heparin Anti-Xa (UFH) 0.31 IU/ml Protime-INR [[id number]] (Normal) Collected: 07/31/251614 Specimen: Blood from Arm, Right Updated: 07/31/251634 Protime 14.2 Seconds INR 1.04 aPTT [[id number]] (Abnormal) Collected: 07/31/251614 Specimen: Blood from Arm, Right Updated: 07/31/251634 PTT 35.2 seconds Narrative: PTT = The equivalent PTT values for the therapeutic range of heparin levels at 0.3 to 0.5 U/ml are 60 to 70 seconds. Comprehensive Metabolic Panel [[id number]] (Abnormal) Collected: 07/31/251436 Specimen: Blood Updated: 07/31/251526 Glucose 108 mg/dL BUN 13.9 mg/dL Creatinine [...] include race as a factor C-reactive Protein [[id number]] (Abnormal) Collected: 07/31/251436 Specimen: Blood Updated: 07/31/251522 C-Reactive Protein 2.78 mg/dL Digoxin Level [[id number]] (Normal) Collected: 07/31/251436 Specimen: Blood Updated: 07/31/251522 Digoxin 1.12 ng/mL Narrative: Results may be falsely increased if patient taking Biotin. Extra Tubes [[id number]] Collected: 07/31/251436 Specimen: Blood, Venous Line Updated: 07/31/25 150 Narrative: The following orders were created for panel order Extra Tubes. Procedure Abnormality Status --------- ------ [facility][[id number]] Final result Wheatley Top[[id number]] Final result Please view results for these tests on the individual orders. [facility] - [facility] [[id number]] Collected: 07/31/251436 Specimen: Blood Updated: 07/31/251500 Extra Tube Hold for add-ons. Comment: Auto resulted. Wheatley Top [[id number]] Collected: 07/31/251436 Specimen: Blood Updated: 07/31/25 150 Extra Tube Hold for add-ons. Comment: Auto resulted. Sedimentation Rate [[id number]] (Abnormal) Collected: 07/31/251436 Specimen: Blood Updated: 07/31/25 145 Sed Rate 73 mm/hr CBC Auto Differential [[id number]] (Abnormal) Collected: 07/31/251436 Specimen: Blood Updated: 07/31/251452 [...] critical limb ischemia - recent angioplasty in [place] 06/18/25 - multiple stents from iliac down to popliteal and including BOARD CERTIFIED MUSIC THERAPIST - Diabetes mellitus type 2 with neuropathy [...] than operative extremity this AM. PRN PO [place] given x2, tolerated well, good response to [...] relating to operative nerve block. - PO [place] 5mg PRN given x2. Seroquel 12.5mg PO [...] of Care Goal: Plan of Care Review 08/02/2025 0545 by Perlita Magallanes RN Outcome: Progressing 08/02/2025 0545 by Perlita Magallanes RN Outcome: Progressing Goal: Patient-Specific Goal (Individualized) 08/02/2025 0545 by Perlita Magallanes RN Outcome: Progressing 08/02/2025 0545 by Perlita Magallanes RN Outcome: Progressing Goal: Absence of Hospital-Acquired Illness or Injury 08/02/2025 05 by Perlita Magallanes RN Outcome: Progressing 08/02/2025 0545 by Perlita Magallanes RN Outcome: Progressing Intervention: Identify and Manage Fall Risk Recent Flowsheet Documentation Taken 08/02/2025 0425 by Perlita Magallanes RN Safety Promotion/Fall Prevention: clutter free environment maintained nonskid shoes/slippers when out of bed room organization consistent safety round/check completed toileting scheduled Taken 08/02/2025 0206 by Perlita Magallanes RN Safety Promotion/Fall Prevention: clutter free environment maintained nonskid shoes/slippers when out of bed room organization consistent safety round/check completed toileting scheduled Taken 08/02/2025 0025 by Perlita Magallanes RN Safety Promotion/Fall Prevention: clutter free environment maintained nonskid shoes/slippers when out of bed room organization consistent safety round/check completed toileting scheduled Taken 08/01/2025 2235 by Perlita Magallanes RN Safety Promotion/Fall Prevention: [...] room provided Goal: Optimal Comfort and Wellbeing 08/02/2025544 by Perlita Magallanes RN Outcome: Progressing 08/02/2025544 by Perlita Magallanes RN Outcome: Progressing Goal: Readiness for Transition of Care 08/02/2025 0545 by Perlita Magallanes RN Outcome: Progressing 08/02/2025 0545 by Perlita Magallanes RN Outcome: Progressing Problem: Skin Injury Risk Increased Goal: Skin Health and Integrity 08/02/2025 0545 by Perlita Magallanes RN Outcome: Progressing 08/02/2025 0545 by Perlita Magallanes RN Outcome: Progressing Intervention: Optimize Skin Protection Recent Flowsheet Documentation Taken 08/02/2025 0425 by Perlita Magallanes RN Activity Management: activity [...] Skin Protection: incontinence pads utilized Taken 08/02/2025 0025 by Perlita Magallanes RN Activity Management: activity [...] Acute Goal: Optimal Pain Control and Function 08/02/2025 0545 by Perlita Magallanes RN Outcome: [...] Comorbidity Management Goal: Maintenance of Asthma Control 08/02/2025 0545 by Perlita Magallanes RN Outcome: Progressing 08/02/2025 05 by Perlita Magallanes RN Outcome: Progressing Intervention: Maintain Asthma Symptom Control Recent Flowsheet Documentation Taken 08/02/2025424 by Perlita Magallanes RN Medication Review/Management: medications reviewed Taken 08/02/2025 020 by Perlita Magallanes RN Medication Review/Management: medications reviewed Taken 08/02/2025 002 by Perlita Magallanes RN Medication Review/Management: medications reviewed Taken 08/01/20252234 by Perlita Magallanes RN Medication Review/Management: medications reviewed Taken 08/01/20252034 by Perlita Magallanes RN Medication Review/Management: medications reviewed Goal: Maintenance of Behavioral Health Symptom Control 08/02/2025 05 by Perlita Magallanes RN Outcome: Progressing 08/02/2025544 by Perlita Magallanes RN Outcome: Progressing Intervention: Maintain Behavioral Health Symptom Control Recent Flowsheet Documentation Taken 08/02/2025424 by Perlita Magallanes RN Medication Review/Management: medications reviewed Taken 08/02/2025205 by Perlita Magallanes RN Medication Review/Management: medications reviewed Taken 08/02/2025 002 by Perlita Magallanes RN Medication Review/Management: medications reviewed Taken 08/01/20252234 by Perlita Magallanes RN Medication Review/Management: medications reviewed Taken 08/01/20252034 by Perlita Magallanes RN Medication Review/Management: medications reviewed Goal: Maintenance of COPD Symptom Control 08/02/2025 0545 by Perlita Magallanes RN Outcome: Progressing 08/02/2025 0545 by Perlita Magallanes RN Outcome: Progressing Intervention: Maintain COPD (Chronic Obstructive Pulmonary Disease) Symptom Control Recent Flowsheet Documentation Taken 08/02/2025424 by Perlita Magallanes RN Medication Review/Management: medications reviewed Taken 08/02/2025 020 by Perlita Magallanes RN Medication Review/Management: medications reviewed Taken 08/02/202524 by Perlita Magallanes RN Medication Review/Management: medications reviewed Taken 08/01/20252234 by Perlita Magallanes RN Medication Review/Management: medications reviewed Taken 08/01/20252034 by Perlita Magallanes RN Medication Review/Management: medications reviewed Goal: Blood Glucose Level Within Target Range 08/02/2025 0545 by Perlita Magallanes RN [...] RN Medication Review/Management: medications reviewed Taken 08/02/2025 020 by Perlita Magallanes RN Medication Review/Management: medications reviewed Taken 08/02/202524 by Perlita Magallanes RN Medication Review/Management: medications reviewed Taken 08/01/20252234 by Perlita Magallanes RN Medication Review/Management: medications reviewed Taken 08/01/20252034 by Perlita Magallanes RN Medication Review/Management: medications reviewed Goal: Maintenance of Osteoarthritis Symptom Control 08/02/2025544 by Perlita Magallanes RN [...] medications reviewed Goal: Bariatric Home Regimen Maintained 08/02/2025544 by Perlita Magallanes RN Outcome: Progressing 08/02/2025544 by Perlita Magallanes RN Outcome: Progressing Intervention: Maintain and Manage Postbariatric Surgery Care Recent Flowsheet Documentation Taken 08/02/2025424 by Perlita Magallanes RN Medication Review/Management: medications reviewed Taken 08/02/2025205 by Perlita Magallanes RN Medication Review/Management: medications reviewed Taken 08/02/202524 by Perltia Magallanes RN Medication Review/Management: medications reviewed Taken 08/01/20252234 by Perlita Magallanes RN Medication Review/Management: medications reviewed Taken 08/01/20252034 by Perlita Magallanes RN Medication Review/Management: medications reviewed Goal: Maintenance of Seizure Control 08/02/2025 0545 by Perlita Magallanes RN Outcome: Progressing 08/02/2025 0545 by Perlita Magallanes RN Outcome: Progressing Intervention: Maintain Seizure Symptom Control Recent Flowsheet Documentation Taken 08/02/2025 0425 by Perlita Magallanes RN Medication Review/Management: medications reviewed Taken 08/02/2025 0206 by Perlita Magallanes RN Medication Review/Management: medications reviewed Taken 08/02/2025 0025 by Perlita Magallanes RN Medication Review/Management: medications reviewed Taken 08/01/2025 2235 by Perlita Magallanes RN Medication Review/Management: medications [...] Manage Fall Risk Recent Flowsheet Documentation Taken 08/02/2025 0425 by Perlita Magallanes RN Safety Promotion/Fall Prevention: clutter free environment maintained nonskid shoes/slippers when out of bed room organization consistent safety round/check completed toileting scheduled Taken 08/02/2025 0206 by Perlita Magalalnes RN Safety Promotion/Fall Prevention: clutter free environment [...] utilized Skin Protection: incontinence pads utilized Taken 08/02/2025205 by Perlita Magallanes RN Activity [...] RN Medication Review/Management: medications reviewed Taken 08/02/2025 002 by Perlita Magallanes RN Medication Review/Management: medications [...] safety round/check completed toileting scheduled Taken 07/31/2025 205 by Perlita Magallanes RN Safety Promotion/Fall Prevention: [...] supine Skin Protection: incontinence pads utilized Taken 07/31/20252239 by Perlita Magallanes RN Body Position: right [...] rest/sleep promoted single patient room provided Taken 07/31/20252239 by Perlita Magallanes RN Infection Prevention: hand [...] and Promote Comfort Recent Flowsheet Documentation Taken 08/01/2025416 by Perlita Magallanes RNux specialist Interventions: pain medication given Taken 08/01/2025 0103 by Perlita Magallanes RNux specialist Interventions: pain medication given Taken 07/31/2025 2047 by Perlita Magallanes RNux specialist Interventions: pain medication given Goal: Readiness for Transition of Care Outcome: Progressing Problem: Skin Injury Risk Increased Goal: Skin Health and Integrity Outcome: Progressing Intervention: Optimize Skin Protection Recent Flowsheet Documentation Taken 08/01/2025 0605 by Perlita Magallanes RN Activity Management: activity encouraged Pressure Reduction Techniques: heels elevated off bed positioned off wounds weight shift assistance provided Head of Bed ([facility]) Positioning: HOB elevated Pressure Reduction Devices: heel offloading device utilized positioning supports utilized pressure-redistributing mattress utilized Skin Protection: incontinence pads utilized Taken 08/01/2025 0417 by Perlita Magallanes RN Activity Management: activity encouraged Pressure Reduction Techniques: heels elevated off bed weight shift assistance provided Head of Bed ([facility]) Positioning: HOB elevated Pressure Reduction Devices: heel offloading device utilized positioning supports utilized pressure-redistributing mattress utilized Skin Protection: incontinence pads utilized Taken 08/01/2025 0318 by Perlita Magallanes RN Activity Management: activity encouraged Pressure Reduction Techniques: heels elevated off bed positioned off wounds weight shift assistance provided Head of Bed ([facility]) Positioning: HOB elevated Pressure Reduction Devices: heel offloading device utilized positioning supports utilized pressure-redistributing mattress utilized Skin Protection: incontinence pads utilized Taken 08/01/2025 0230 by Perlita Magallanes RN Activity Management: activity encouraged Pressure Reduction Techniques: heels elevated off bed positioned off wounds weight shift assistance provided Head of Bed ([facility]) Positioning: HOB elevated Pressure Reduction Devices: heel offloading device utilized positioning supports utilized pressure-redistributing mattress utilized Skin Protection: incontinence pads utilized Taken 08/01/2025 0103 by Perlita Magallanes RN Activity Management: up to bedside commode Pressure Reduction Techniques: heels elevated off bed positioned off wounds weight shift assistance provided Head of Bed ([facility]) Positioning: HOB elevated Pressure Reduction Devices: [...] Documentation Taken 08/01/2025 0417 by Perlita Magallanes RNux specialist Interventions: pain medication given Taken 08/01/2025 0103 by Perlita Magallanes RNux specialist Interventions: pain medication given Taken 07/31/20252046 by Perlita Magallanes RNux specialist Interventions: pain medication given Intervention: Prevent or [...] visitors restricted/screened Goal: Optimal Comfort and Wellbeing 08/01/2025617 by Perlita Magallanes RN Outcome: Progressing 08/01/2025617 by Perlita Magallanes RN Outcome: Progressing Intervention: Monitor Pain and Promote Comfort Recent Flowsheet Documentation Taken 08/01/2025 041 by Perlita Magallanes RNux specialist Interventions: pain medication given Taken 08/01/2025102 by Perlita Magallanes RNux specialist Interventions: pain medication given Taken 07/31/20252046 by Perlita Magallanes RNux specialist Interventions: pain medication given Goal: Readiness for Transition of Care 08/01/2025617 by Perlita Magallanes RN Outcome: Progressing 08/01/2025617 by Perlita Magallanes RN Outcome: Progressing Problem: Skin Injury Risk Increased Goal: Skin Health and Integrity 08/01/2025617 by Perlita Magallanes RN Outcome: Progressing 08/01/2025617 by Perlita Magallanes RN Outcome: Progressing Intervention: Optimize Skin Protection Recent Flowsheet Documentation Taken 08/01/2025 06 by Perlita Magallanes RN Activity Management: activity encouraged Pressure Reduction Techniques: heels elevated off bed positioned off wounds weight shift assistance provided Head of Bed ([facility]) Positioning: HOB elevated Pressure Reduction Devices: heel offloading device utilized positioning supports utilized pressure-redistributing mattress utilized Skin Protection: incontinence pads utilized Taken 08/01/2025 041 by Perlita Magallanes RN Activity Management: activity [...] weight shift assistance provided Head of Bed ([facility]) Positioning: HOB elevated Pressure Reduction Devices: heel offloading device utilized positioning supports utilized pressure-redistributing mattress utilized Skin Protection: incontinence pads utilized Taken 08/01/2025 0103 by Perlita Magallanes RN Activity Management: up to bedside commode Pressure Reduction Techniques: heels elevated off bed positioned off wounds weight shift assistance provided Head of Bed ([facility]) Positioning: HOB elevated Pressure Reduction Devices: heel offloading device utilized positioning supports utilized pressure-redistributing mattress utilized Skin Protection: incontinence pads utilized Taken 08/01/2025 0005 by Perlita Magallanes RN Activity Management: activity encouraged Pressure Reduction Techniques: heels elevated off bed positioned off wounds weight shift assistance provided Head of Bed ([facility]) Positioning: HOB elevated Pressure Reduction Devices: heel offloading device utilized positioning supports utilized pressure-redistributing mattress utilized Skin Protection: incontinence pads utilized Taken 07/31/2025 2240 by Perlita Magallanes RN Activity Management: activity encouraged Pressure Reduction Techniques: heels elevated off bed positioned off wounds weight shift assistance provided Head of Bed ([facility]) Positioning: HOB elevated Pressure Reduction Devices: heel offloading device utilized positioning supports utilized pressure-redistributing mattress utilized Skin Protection: incontinence pads utilized Taken 07/31/2025 2053 by Perlita Magallanes RN Activity Management: activity encouraged Pressure Reduction Techniques: heels elevated off bed weight shift assistance provided Head of Bed ([facility]) Positioning: HOB elevated Pressure Reduction Devices: heel offloading device utilized positioning supports utilized pressure-redistributing mattress utilized Skin Protection: incontinence pads utilized Taken 07/31/2025 2047 by Perlita Magallanes RN Activity Management: up to bedside commode Head of Bed ([facility]) Positioning: HOB elevated Problem: Pain Acute Goal: Optimal Pain Control and Function 08/01/2025 0618 by Perlita Magallanes RN Outcome: Progressing 08/01/2025 0618 by Perlita Magallanes RN Outcome: Progressing Intervention: Develop Pain Management Plan Recent Flowsheet Documentation Taken 08/01/2025 0417 by Perlita Magallanes RNux specialist Interventions: pain medication given Taken 08/01/2025 010 by Perlita Magallanes RNux specialist Interventions: pain medication given Taken 07/31/20252046 by Perlita Magallanes RNux specialist Interventions: pain medication given Intervention: Prevent or Manage Pain Recent Flowsheet Documentation Taken 08/01/2025 0605 by Perlita Magallanes RN Medication Review/Management: medications reviewed Taken 08/01/2025 0417 by Perlita Magallanes RN Medication Review/Management: medications reviewed Taken 08/01/2025 0318 by Perlita Magallanes RN Medication Review/Management: medications reviewed Taken 08/01/2025 0230 by Perlita Magallanes RN Medication Review/Management: medications reviewed Taken 08/01/2025 010 by Perlita Magallanes RN Medication Review/Management: medications reviewed Taken 08/01/2025 0005 by Perlita Magallanes RN Medication Review/Management: medications reviewed Taken 07/31/2025 2240 by Perlita Magallanes RN Medication Review/Management: medications reviewed Taken 07/31/2025 205 by Perlita Magallanes RN Medication Review/Management: medications reviewed Taken 07/31/20252046 by Perlita Magallanes RN Medication Review/Management: medications reviewed Problem: Fall Injury Risk Goal: Absence of Fall and Fall-Related Injury 08/01/2025 0618 by Perlita Magallanes RN Outcome: Progressing 08/01/2025617 [...] safety round/check completed toileting scheduled Taken 07/31/2025 205 by Perlita Magallanes RN Safety Promotion/Fall Prevention: [...] toe amputation Staff: Surgeon(s): Junior Zhao MD Cooler Conveyor Loader: Jackson Barrios RN; India Lane RN; Desiree Helms RN Physician Underwriting Intern: Meron Swift PA-C Scrub Person: Shelton Best; Neda Oshea Anesthesia: General Estimated Blood Loss: minimal Implants: Implant Name Type Inv. Item Serial No. Divinity Professor Lot No. LRB No. Used Action HEMOST ABS SURGICEL SNOW 1X2IN - [id number] Implant HEMOST ABS SURGICEL SNOW 1X2IN ETHICON DIV OF J AND J [id number] Left 1 Implanted CLIPAPPLR M/ ENDO LIGACLIP 9 3/8IN SM - [id number] Implant CLIPAPPLR M/ ENDO LIGACLIP 9 3/8IN ETHICON ENDO SURGERY DIV OF J AND J [id number] Left 1 Implanted CLIPAPPLR M/ ENDO LIGACLIP9 3/8IN MN - [id number] Implant CLIPAPPLR M/ ENDO LIGACLIP9 3/8IN ETHIRASHI ENDO SURGERY DIV OF J AND J [id number] Left 1 Implanted MONICA GONZALEZAT RADHIKATRANJALI [id number] - [id number] - [id number] Implant MONICA VASC PROPAT RADHIKATRCH [id number] [employer] Left 1 Implanted HEMOST ABS SURGICEL SNOW 1X2IN - [id number] Implant HEMOST ABS SURGICEL SNOW 1X2IN ETHICON [...] encounter ED Notes * Jesús Sheldon Jr., PA-C - 07/31/2025 2:19 PM EDT Images from the original note were not included. Subjective History of Present Illness: Chief Complaint: Left leg pain History of Present Illness: 85-year-old female with left leg pain, patient was recently in the hospital, at [facility], admitted on 07/23/2025, discharged 07/25/2025, admitted for [...] Course User Index [CS] Jesús Sheldon Jr., LELE Lab Results (last 24 hours) Procedure Component Value Units Date/Time CBC Auto Differential [[id number]] (Abnormal) Collected: 07/31/25 1437 Specimen: Blood Updated: 07/31/25 1453 WBC 11.90 [...] nRBC 0.0 /100 WBC Comprehensive Metabolic Panel [[id number]] (Abnormal) Collected: 07/31/25 143 Specimen: Blood Updated: 07/31/25 1527 Glucose 108 [...] include race as a factor Sedimentation Rate [[id number]] (Abnormal) Collected: 07/31/251436 Specimen: Blood Updated: 07/31/25 1457 Sed Rate 73 mm/hr C-reactive Protein [[id number]] (Abnormal) Collected: 07/31/251436 Specimen: Blood Updated: 07/31/25 1523 C-Reactive Protein 2.78 mg/dL Digoxin Level [[id number]] (Normal) Collected: 07/31/251436 Specimen: Blood Updated: 07/31/25 152 Digoxin 1.12 ng/mL Narrative: Results may be falsely increased if patient taking Biotin. Heparin Anti-Xa [[id number]] (Normal) Collected: 07/31/251614 Specimen: Blood from Arm, Right Updated: 07/31/251634 Heparin Anti-Xa (UFH) 0.31 IU/ml Protime-INR [[id number]] (Normal) Collected: 07/31/251614 Specimen: Blood from Arm, Right Updated: 07/31/251634 Protime 14.2 Seconds INR 1.04 aPTT [[id number]] (Abnormal) Collected: 07/31/251614 Specimen: Blood from Arm, [...] Discharge Note Final Note: Received call from [facility] who advises [facility] is not taking [employer] Medicare and [facility] cannot accept at this time. Family request Referral to [facility] and if not accepted [facility]. Spoke to liasion for [facility] who cannot accept [employer] Medicare. Spoke to [facility] liaison who acceptedpatient to service for PT/OT and will evaluate need for SN. Patient plan is to discharge home with [facility] today via car with family to transport. Selected Continued Care - Admitted Since 07/31/2025 Destination No services have been selected for the patient. Durable Medical Equipment No services have been selected for the patient. Dialysis/Infusion No services have been selected for the patient. Home Medical Care Coordination complete. Service Provider Services Address Phone Fax Patient Preferred [facility] [place] [address] [phone] -- Therapy No services have been selected for the patient. Community & DME No services have been selected for the patient. Community Resources No active community resources. Final Discharge Disposition Code: 06 - home with home health care * Case Management/Social Work - Juan Lily - 08/07/2025 2:29 PM EDT Start PACC Note Home Health Referral Evaluated patient and on Home Care and services available. Patient offered choice of available HHC and agreeable to PT/OT services with [facility]. Isolation Precautions: No active isolations START PATIENT REGISTRATION INFORMATION Order Information Order Signing Physician: Neda Ocampo, DO Service Ordered RN?: No Service Ordered PT?: Yes Service Ordered OT?: Yes Service Ordered ST?: No Service Ordered SENIOR PAYROLL MANAGER?: No Service Ordered TESTER PRINTED CIRCUIT BOARDS?: No Following Physician: Alexis Anand MD Following Physician Overseeing Physician: Alexis Anand MD (Required for Residents Only) Agreeable to Follow ? Yes Date/Time of Call 08/07/25 14:29 EDT, Spoke with: Care Coordination Same Day SOC?: No Primary Care Physician: Alexis Anand MD Primary Care Physician Primary Care Physician Address: [address] [place] [address] Visit Instructions: N/A Service Discharge Location Type: Home Service Facility Name: N/A Service Floor Facility: N/A Service Room No: N/A Demographics Patient Last Name: Sera Patient First Name: Hattie Language/Communication Barrier: NO Service Address: [address] [place] [address] Service City: [place] Service State: [place] Service Zip: [address] Service Other Phone Numbers: Telephone Information: Emergency Contact: Extended Emergency Contact Information Primary Emergency Contact: LAKESHA DAVILA Address: [address] [place] [address] Mobile Relation: Daughter Reel Slitter needed? No Secondary Emergency Contact: ESTELA SANTOS Mobile Relation: Daughter Reel Slitter needed? No Admission Information Admit Date: 07/31/2025 Patient Status at Discharge: Inpatient Admitting Diagnosis: Claudication [I73.9] Critical limb ischemia of left lower extremity [I70.222] Caregiver Information Caregiver First Name: LAKESHA Caregiver Last Name: GIOVANNI Caregiver Relationship to Patient: DAUGHTER Caregiver Caregiver Notes: ESTELA SANTOS, DAUGHTER [phone] [employer] No END PATIENT REGISTRATION INFORMATION Start PACC Summary Additional Comments: END PACC Summary Discharge Date: Pending Referral Source: AHMET López Signed By: Lily Martinez, 08/07/2025, 14:29 EDT Date/Time: 08/07/25 14:29 EDT End PACC Note * Case Management/Social Work - Rani Pereira RN - 08/07/2025 2:09 PM EDT Continued Stay Note [place] Patient Name: Hattie Santos Today's Date: 08/07/2025 Admit Date: 07/31/2025 Plan: update Discharge Plan Row Name 08/07/25 1407 Plan Plan update Patient/Family in Agreement with Plan yes Plan Comments Patient has orders for discharge. Spoke with patient and daughter at bedside regarding disharge plan who has chosen [facility]. Called [facility] and left with liaison. CM following. Patient plan is to discharge home today with [facility] if accepted via car with familyto transport. Final Discharge Disposition Code 06 - home with home health care Discharge Codes No documentation. Expected Discharge Date and Time Expected Discharge Date Expected Discharge Time Aug 07, 2025 Rani Pereira RN * Therapy Treatment Note - Desiree Shearer PTA - 08/07/2025 8:43 AM EDT Images from [...] TOE AMPUTATION; Surgeon: Junior Zhao MD; Location: [facility] HYBRID OR; Service:Vascular; Laterality: Left; FEMORAL POPLITEAL BYPASS Left 08/02/2025 Procedure: FEMORAL POPLITEAL BYPASS; Surgeon: Junior Zhoa MD; Location: [facility]BRID OR; Service: Vascular; Laterality: Left; General Information Row Name 08/07/25 0929 Physical Therapy Time and Intention Document Type therapy note (daily note) - Mode of Treatment physical therapy - Row Name 08/07/25 0929 General Information Patient Profile Reviewed yes - Existing Precautions/Restrictions fall offloading shoe L, presumed heel WB at this time, awaiting MD clarification on WB status - Barriers to Rehab medically complex;previous functional deficit;cognitive status - Row Name 08/07/25 0929 Cognition Orientation Status (Cognition) oriented to;person;place - Row Name 08/07/25 0929 Safety Issues/Impairments Affecting Functional Mobility Safety Issues [...] step by step explanation of task, used [facility] tennis shoe for right and encouraged family to bring her own for height differenced/t offloading shoe on L - User Amor (r) = Recorded By, (t) = Taken By, (c) = Cosigned By Initials Name Provider Type Desiree Shearer PTA Physical Therapist Underwriting Intern Mobility Row Name 08/07/25931 Bed Mobility Supine-Sit Sabina (Bed Mobility) verbal cues;minimum assist (75% patient effort);1 person assist - Assistive Device (Bed Mobility) head of bed elevated;bed rails;repositioning sheet - Comment, (Bed Mobility) assist needed at trunk to reach EOB - Row Name 08/07/25931 Transfers Comment, (Transfers) multiple verbal cues for hand and feet placement - Row Name 08/07/25931 Bed-Chair Transfer Bed-Chair Sabina (Transfers) verbal cues;minimum assist (75% patient effort);moderate assist (50% patient effort);1 person assist - Assistive Device (Bed-Chair Transfers) walker, front-wheeled - Comment, (Bed-Chair Transfer) patient took steps to recliner then took seated rest break, then ambulated 4 steps forward - Row Name 08/07/25931 Sit-Stand Transfer Sit-Stand Sabina (Transfers) verbal cues;minimum assist (75% patient effort);moderate assist (50% patient effort);1 person assist - Assistive Device (Sit-Stand Transfers) walker, front-wheeled - Comment, (Sit-Stand Transfer) cues for hand/feet placement and to maintain heel WB L LE - Row Name 08/07/25931 Gait/Stairs (Locomotion) Sabina Level (Gait) verbal cues;minimum assist (75% patient [...] Provider Type Desiree Shearer PTA Physical Therapist Underwriting Intern Obj/Interventions Row Name 08/07/25940 Motor Skills Therapeutic Exercise knee;ankle - [facility] Name 08/07/25940 Knee (Therapeutic Exercise) Knee (Therapeutic Exercise) strengthening exercise - Knee Strengthening (Therapeutic Exercise) bilateral;marching while seated;LAQ (long arc quad);sitting;10 repetitions - [facility] Name 08/07/25940 Ankle (Therapeutic Exercise) Ankle (Therapeutic Exercise) AROM (active range of motion) - Ankle AROM (Therapeutic Exercise) bilateral;dorsiflexion;plantarflexion;sitting;10 repetitions - [facility] Name 08/07/25940 Balance Dynamic Sitting Balance verbal cues;minimal assist;1-person [...] Provider Type Desiree Shearer PTA Physical Therapist Underwriting Intern Goals/Plan No documentation. Clinical Impression [facility] 08/07/25941 Pain Pain Location extremity - Pain Side/Orientation [...] outcome when medically appropriate. - Row Name 08/07/2542 Positioning and Restraints Pre-Treatment Position in bed - Post Treatment Position chair - In Chair reclined;call light within reach;encouraged to call for assist;exit alarm on;waffle cushion;with family/caregiver;legs elevated;notified nsg - User Amor (r) = Recorded By, (t) = Taken By, (c) = Cosigned By Initials Name Provider Type Desiree Shearer PTA Physical Therapist Underwriting Intern Outcome Measures Row Name 08/07/2544 How much [...] Goal Move to Chair/Commode-4 - Row Name 08/07/2544 Functional Assessment Outcome Measure Options AM-PAC 6 Clicks Basic Mobility (PT) - User Amor (r) = Recorded By, (t) = Taken By, (c) = Cosigned By Initials Name Provider Type Desiree Shearer PTA Physical Therapist Underwriting Intern Physical Therapy Education Title: PT OT RIPSAW MATCHER Therapies (In Progress) Topic: Physical Therapy (In Progress) Point: Mobility training (In Progress) Learning Progress Summary Patient Acceptance, E, NR by at 08/07/2025 0944 Acceptance, E, NR by SHANNAN at 08/04/2025 [...] 05/03/25 - Desiree Shearer PTA Physical Therapist Underwriting Intern PT MB 03/15/25 - Norma Huitron PT [...] Re-Cert Due Date 08/14/25 - Timed Charges 59827 - PT Therapeutic Exercise Minutes 10 - 17088 - Gait Training Minutes 13 - Total Minutes Timed Charges Total Minutes 23 - Total Minutes 23 - User Amor (r) = Recorded By, (t) = Taken By, (c) = Cosigned By Initials Name Provider Type Desiree Shearer PTA Physical Therapist Underwriting Intern Therapy Charges for Today Code Description Service Date Service Provider Modifiers Qty [id number] HC PT THER PROC EA 15 MIN 08/07/2025 Desiree Shearer PTA GP 1 [id number] HC GAIT TRAINING EA 15 MIN 08/07/2025 Desiree Shearer PTA GP 1 PT G-Codes Outcome Measure Options: AM-PAC 6 Clicks Basic Mobility (PT) AM-PAC 6 Clicks Score (PT): 12 AM-PAC 6 Clicks Score (OT): 14 Desiree Shearer PTA 08/07/2025 * Case Management/Social Work - Rani Pereira RN - 08/05/2025 2:14 PM EDT Continued Stay Note [facility] Patient Name: Hattie Santos Today's Date: 08/05/2025 Admit Date: 07/31/2025 Plan: update Discharge Plan Row Name 08/05/25 1408 Plan Plan update Patient/Family in Agreement with Plan yes Plan Comments Spoke with patient and daughter at bedside regarding discharge plan and discussed PT recommendations for rehab, daughter reports that they are more interested in going home with HH if at all possible. CM provided Patient [...] Type KF Hailey Barrios, OT Occupational Therapist Mobility/ADL's Row Name 08/04/25 1103 Bed Mobility Bed Mobility supine-sit -KF Supine-Sit Sabina (Bed Mobility) minimum assist (75% patient effort);1 person assist;verbal cues - Assistive Device (Bed Mobility) bed rails;head of bed elevated;repositioning sheet - Comment, (Bed Mobility) Increased time needed. Cues for sequence with assistance given at trunk andBLEs. - Row Name 08/04/25 110 Transfers Transfers sit-stand transfer;stand-sit transfer;toilet transfer - Row Name 08/04/25 110 Sit-Stand Transfer Sit-Stand Sabina (Transfers) minimum assist (75% patient effort);2 person assist;verbal cues - Assistive Device (Sit-Stand Transfers) walker, front-wheeled - Comment, (Sit-Stand Transfer) x1 from EOB, x1 from BSC for seated rest break; cues for hand placement and maintaining LLE heel WB - Row Name 08/04/251102 Stand-Sit Transfer Stand-Sit Sabina (Transfers) minimum assist (75% patient effort);2 person assist;verbal cues - Assistive Device (Stand-Sit Transfers) walker, front-wheeled - Row Name 08/04/25 110 Toilet Transfer Type (Toilet Transfer) sit-stand;stand-sit - [place] Level (Toilet Transfer) minimum assist (75% patient effort);2 person assist;verbal cues - Assistive Device (Toilet Transfer) walker, front-wheeled;commode, bedside without drop arms - Row Name 08/04/25 110 Functional Mobility Functional Mobility- Ind. Level minimum assist (75% patient effort);2 person assist required;verbalcues required - Functional Mobility- Device walker, front-wheeled - Functional Mobility-Distance (Feet) -- <household distance (around bed to chair, x1 seated rest break taken) - Functional Mobility- Comment Pt with limited ability to flex L knee and dorsiflex at L ankle due toincisional pain and dressings. Frequent cues for WB status, upright posture, and RWx management. - Patient was able to Ambulate yes - Row Name 08/04/25 110 Activities of Daily Living BADL Assessment/Intervention lower body dressing;feeding - Row Name 08/04/25 110 Mobility Extremity Weight-bearing Status other (see comments) pending MD clarification, presumed heel WB in post of shoe -KF Row Name 08/04/25 110 Lower Body Dressing Assessment/Training Sabina Level (Lower Body Dressing) don;socks;shoes/slippers;dependent (less than 25% patient effort) -KF Position (Lower Body Dressing) edge of bed sitting -KF Row Name 08/04/25 110 Self-Feeding Assessment/Training Sabina Level (Feeding) liquids to mouth;independent -KF Position (Feeding) supported sitting -KF User Amor (r) = Recorded By, [...] (MMT) Assessment upper extremity strength deficits identified -KF Comment, General Manual Muscle Testing (MMT) Assessment BUE grossly 3+/5 -KF Row Name 08/04/25 110 Motor Skills Motor [...] (OT) Activity/Assistive Device (Transfer Goal 1, OT) tes-oi-cpfiv/cazni-[id number];commode -KF Sabina Level/Cues Needed (Transfer Goal 1, OT) contact guard required -KF Time Frame (Transfer Goal 1, OT) terminal makeup operator goal (LTG);10 days -KF Progress/Outcome (Transfer Goal 1, OT) new goal -KF Row Name 08/04/25 1108 Dressing Goal 1 (OT) Activity/Device (Dressing Goal 1, OT) lower body dressing -KF Sabina/Cues Needed (Dressing Goal 1, OT) minimum assist (75% or more patient effort) -KF Time Frame (Dressing Goal 1, OT) short term goal (STG);5 days -KF Strategies/Barriers (Dressing Goal 1, OT) L offloading shoe -KF Progress/Outcome (Dressing Goal 1, OT) new goal -KF Row Name 08/04/251107 Toileting Goal 1 (OT) Activity/Device (Toileting Goal 1, OT) adjust/manage clothing;perform perineal hygiene -KF Sabina Level/Cues Needed (Toileting Goal 1, OT) set-up required -KF Time Frame (Toileting Goal 1, OT) terminal makeup operator goal (LTG);10 days -KF Progress/Outcome (Toileting Goal 1, OT) new goal -KF Row Name 08/04/25 110 Therapy Assessment/Plan (OT) Planned Therapy Interventions (OT) activity tolerance training;adaptive equipment training;BADL retraining;functional balance retraining;occupation/activity based interventions;patient/caregiver educa tion/training;ROM/therapeutic exercise;strengthening exercise;transfer/mobility retraining -KF User Amor (r) = Recorded By, (t) = Taken By, (c) = Cosigned By Initials Name Provider Type KF Hailey Barrios OT Occupational Therapist Clinical Impression Row Name 08/04/25 [...] a d/c to SNF when medically ready. -KF Row Name 08/04/25 1106 Therapy Assessment/Plan (OT) Patient/Family Therapy Goal Statement (OT) Restore PLOF -KF Rehab Potential (OT) good -KF Criteria for Skilled Therapeutic Interventions Met (OT) yes;skilled treatment is necessary -KF Therapy Frequency (OT) daily -KF Predicted Duration of Therapy Intervention (OT) 10 days -KF Row Name 08/04/25 1106 Therapy Plan Review/Discharge Plan (OT) Anticipated Discharge Disposition (OT) jail facility -KF Row Name 08/04/25 1106 Vital Signs Pre [...] for assist;exit alarm on;with family/caregiver;waffle cushion;legs elevated -KF User Amor (r) = Recorded By, (t) = Taken By, (c) = Cosigned By Initials Name Provider Type Hailey Tong, OT Occupational Therapist Outcome Measures Row Name [...] -KF AM-PAC 6 Clicks Score (OT) 14 - Row Name 08/04/25 1109 Functional Assessment Outcome Measure Options AM-PAC 6 Clicks Daily Activity (OT) - User Amor (r) = Recorded By, (t) = Taken By, (c) = Cosigned By Initials Name Provider Type Hailey Tong OT Occupational Therapist Occupational Therapy Education Title: PT OT RIPSAW MATCHER Therapies (In Progress) Topic: Occupational Therapy (In [...] Initials Effective Dates Name Provider Type Discipline 05/25/23 - Hailey Barrios OT Occupational Therapist [...] Description Service Date Service Provider Modifiers Qty [id number] HC OT EVAL MOD COMPLEXITY 4 08/04/2025 Hailey [...] evaluation -MB Mode of Treatment physical therapy -MB Row Name 08/04/25 1242 General Information Patient [...] weightbear. -MB Existing Precautions/Restrictions fall;other (see comments) messaged regarding WBing status, awaiting answer- provided [...] Bed Mobility Bed Mobility supine-sit;scooting/bridging -MB Scooting/Bridging Sabina (Bed Mobility) 1 person assist;verbal cues to scoot anteriorly toward EOB in seated position -MB Supine-Sit Sabina (Bed Mobility) minimum assist (75% patient effort);1 person assist;verbal cues to sit up toward left side of bed -MB Assistive Device (Bed Mobility) bed rails;head of bed elevated;repositioning sheet -MB Comment, (Bed Mobility) Patient requiring increased time and verbal cues for initiation and sequencing of activity. Patient requiring assist with both trunk elevation and BLE management. -MB Row Name 08/04/25 1246 Sit-Stand Transfer Sit-Stand Sabina (Transfers) minimum assist (75% patient effort);2 person assist;verbal cues -MB Assistive Device (Sit-Stand Transfers) walker, front-wheeled -MB Comment, (Sit-Stand Transfer) Patient moved to stand x 2 reps during session (once from EOB and once from BSC). Patient requiring verbal cues for proper hand placement and LLE heel weight-bearing. -MB Row Name 08/04/25 1247 Gait/Stairs (Locomotion) Sabina Level (Gait) minimum assist (75% patient effort);2 [...] anteriorly and assist for RW management required. -MB Row Name 08/04/25 4817 Mobility Extremity Weight-bearing Status other (see comments) pending MD clarification, presumed heel WB in post op shoe -MB User Amor (r) = Recorded By, (t) = Taken By, (c) = Cosigned By Initials Name Provider Type Norma Mayers, PT Physical Therapist Obj/Interventions Row Name 08/04/25 125 Range of Motion Comprehensive Comment, General Range of Motion Right LE ROM WFL. Patient only able to achieve ~70 degrees of leftknee flexion while seated at EOB. Patient also plantarflexed ~5 degrees, unable to achieve neutral position. - Row Name 08/04/25 1252 Strength Comprehensive (MMT) Comment, General Manual Muscle Testing (MMT) Assessment Right LE grossly 4/5. Left LE grossly 2+/5.-MB Row Name 08/04/25 1252 Advanced Stepping/Walking Interventions Stepping/Walking Interventions backward walking -MB Row Name 08/04/25 1252 Balance Balance Assessment sitting static balance;sitting dynamic balance;standing static balance;standing dynamic balance -MB Static Sitting Balance standby assist -MB Dynamic Sitting Balance contact guard -MB Position, Sitting Balance unsupported;sitting in chair;sitting edge of bed;other (see comments) seated on BSC -MB Static Standing Balance minimal assist;2-person assist -MB Dynamic Standing Balance minimal assist -MB Position/Device Used, Standing Balance supported;walker, front-wheeled -MB Row Name 08/04/25 1252 Sensory Assessment (Somatosensory) Sensory Assessment Patient reports decreased sensation in left LE. -MB User Amro (r) = Recorded By, (t) = Taken By, (c) = Cosigned By Initials Name Provider Type Norma Mayers, PT Physical Therapist Goals/Plan Row Name 08/04/25 6496 Bed Mobility Goal 1 (PT) Activity/Assistive Device (Bed Mobility Goal 1, PT) bed mobility activities, all -MB Sabina Level/Cues Needed (Bed Mobility Goal 1, PT) standby assist -MB Time Frame (Bed Mobility Goal 1, PT) short term goal (STG);1 week - Row Name 08/04/25 7658 Transfer Goal 1 (PT) Activity/Assistive Device (Transfer Goal 1, PT) pxi-ip-itrrp/wnvuh-yo-otx;walker, rolling -MB Sabina Level/Cues Needed (Transfer Goal 1, PT) standby assist -MB Time Frame (Transfer Goal 1, PT) terminal makeup operator goal (LTG);2 weeks -MB Row Name 08/04/25 8374 Gait Training Goal 1 (PT) Activity/Assistive Device (Gait Training Goal 1, PT) gait (walking locomotion);walker, rolling -MB Sabina Level (Gait Training Goal 1, PT) standby assist -MB Distance (Gait Training Goal 1, PT) 50 feet -MB Time Frame (Gait Training Goal 1, PT) terminal makeup operator goal (LTG);2 weeks -MB Row Name 08/04/25 9410 Stairs Goal 1 (PT) Activity/Assistive Device (Stairs Goal 1, PT) ascending stairs;descending stairs -MB Sabina Level/Cues Needed (Stairs Goal 1, PT) minimum assist (75% or more patient effort) -MB Number of Stairs (Stairs Goal 1, PT) 1 step -MB Time Frame (Stairs Goal 1, PT) terminal makeup operator goal (LTG);2 weeks -MB Row Name 08/04/25 9849 Therapy Assessment/Plan (PT) Planned Therapy Interventions (PT) balance training;bed mobility training;gait training;home exercise program;neuromuscular re-education;orthotic fitting/training;patient/family education;postural re-education;ROM (range of motion);stair training;strengthening;stretching;transfer training;wheelchair management/propulsion training -MB User Amor (r) = Recorded By, (t) = Taken By, (c) = Cosigned By Initials Name Provider Type Norma Mayers, PT Physical Therapist Clinical Impression Row Name 08/04/25 1256 Pain Pretreatment Pain Rating 0/10 - no pain -MB Posttreatment Pain Rating 0/10 - no pain -MB Row Name 08/04/25 1259 Plan of Care Review Plan of Care [...] appropriate for discharge. -MB Row Name 08/04/25 1254 Therapy Assessment/Plan (PT) Patient/Family Therapy Goals Statement (PT) To get better. -MB Rehab Potential (PT) good -MB Criteria for Skilled Interventions Met (PT) yes;meets criteria;skilled treatment is necessary -MB Therapy Frequency (PT) daily -MB Predicted Duration of Therapy Intervention (PT) 2 weeks -MB Row Name 08/04/25 4853 Vital Signs Pre Systolic BP Rehab 123 [...] Patient Position Sitting -MB Row Name 08/04/25 1255 Positioning and Restraints Pre-Treatment Position in bed -MB Post Treatment Position chair -MB In Chair notified nsg;reclined;sitting;call light within reach;encouraged to call for assist;exit alarm on;with family/caregiver;waffle cushion;legs elevated;heels elevated -MB User Amor (r) = Recorded By, (t) = Taken By, (c) = Cosigned By Initials Name Provider Type Noram Mayers, PT Physical Therapist Outcome Measures Row Name 08/04/25 1308 How much help from another person do [...] (1 or More Minutes)-5 -MB Row Name 08/04/25 1308 08/04/25 1109 Functional Assessment Outcome Measure Options AM-PAC 6 Clicks Basic Mobility (PT) -MB AM-PAC 6 Clicks Daily Activity (OT)-KF User Amor (r) = Recorded By, (t) = Taken By, (c) = Cosigned By Initials Name Provider Type Hailey Tong OT Occupational Therapist Norma Mayers, PT Physical Therapist Physical Therapy Education Title: PT OT RIPSAW MATCHER Therapies (In Progress) Topic: Physical Therapy (In Progress) Point: Mobility training (In Progress) Learning Progress Summary Patient Acceptance, E, NR by SHANNAN at 08/04/2025 1308 Point: Home exercise program (Not Started) Learner Progress: Not documented in this visit. Point: Body mechanics (In Progress) Learning Progress Summary Patient Acceptance, E, NR by SHANNAN at 08/04/2025 1308 Point: Precautions (In Progress) Learning Progress Summary Patient Acceptance, E, NR by SHANNAN at 08/04/2025 1308 User Maor Initials Effective Dates Name Provider Type Discipline [...] Description Service Date Service Provider Modifiers Qty [id number] HC PT EVAL MOD COMPLEXITY 4 08/04/2025 Norma Huitron, PT GP 1 PT G-Codes Outcome Measure Options: AM-PAC 6 Clicks Basic Mobility (PT) AM-PAC 6 Clicks Score (PT): 16 AM-PAC 6 Clicks Score (OT): 14 PT Discharge Summary Anticipated Discharge Disposition (PT): jail facility Norma Huitron, PT 08/04/2025 [1] Patient Active Problem List [...] 08/02/2025 12:40 PM EDT Continued Stay Note [facility] Patient Name: Hattie Santos Today's Date: 08/02/2025 [...] Expected Discharge Time Aug 09, 2025 Marcela Herrera RN * Case Management/Social Work - Marcela Herrera RN - 08/01/2025 4:27 PM EDT Discharge Planning Assessment [facility] Patient Name: Hattie Santos Today's [...] family Patient/Family Anticipated Services at Transition case fillerbusiness records manager Anticipated family or friend will provide Discharge Needs Assessment Equipment Currently Used at Home glucometer;nebulizer Discharge Plan Row Name 08/01/25 1621 Plan Plan Home Patient/Family in Agreement with Plan yes Plan Comments Ms. Santos is confused. Information taken from her granddaughter/POA Afua Melton. Ms. Santos lives in [facility]. Her adult son and adult daughter live with her. Ms. Santos has [employer] Medicare insurance. She uses [facility] to get her prescriptions filled. Her [...] Reason for Consult discharge planning Preferred Language Tanzanian Contact Information Permission Granted to Share Info With case fillerrevenue manager Information Obtained for case fillernetwork support manager Status Row Name 08/01/25 1617 Functional [...] PA to assist for this case, FIRST ASSISTCRNA DESIREE FEMORAL POPLITEAL BYPASS 08/02/2025 2:10 PM EDT Peripheral artery disease Critical limb ischemia of left lower extremity Special Needs He will need a PA to assist for this case, FIRST ASSISTCRBURT FANLEY TYPE AND SCREEN STAT 08/02/2025 1:30 PM [...] CBC Auto Differential (08/07/2025 6:48 AM EDT) [facility] WBC 13.27(H) 3.40 - 10.80 10*3/mm3 08/07/2025 7:10 AM EDT [facility] RBC 3.12(L) 3.77 - 5.28 10*6/mm3 08/07/2025 7:10 AM EDT [facility] Hemoglobin 8.9(L) 12.0 - 15.9 g/dL 08/07/2025 7:10 AM EDT [facility] Hematocrit 28.3(L) 34.0 - 46.6 % 08/07/2025 7:10 AM EDT [facility] MCV 90.7 79.0 - 97.0 fL 08/07/2025 7:10 AM EDT [facility] MCH 28.5 26.6 - 33.0 pg 08/07/2025 7:[facility] MCHC 31.4(L) 31.5 - 35.7 g/dL 08/07/2025 7:10 [facility] RDW 12.7 12.3 - 15.4 % 08/07/2025 7:10 AM [facility] RDW-SD 41.7 37.0 - 54.0 fl 08/07/2025 7:10 [facility] MPV 8.7 6.0 - 12.0 fL 08/07/2025 7:10 AM [facility] Platelets 475(H) 140 - 450 10*3/mm3 08/07/2025 7:10 [facility] Neutrophil % 63.4 42.7 - 76.0 % 08/07/2025 7:10 [facility] Lymphocyte % 21.8 19.6 - 45.3 % 08/07/2025 7:10 [facility] Monocyte % 11.8 5.0 - 12.0 % 08/07/2025 7:10 AM EDT [facility] Eosinophil % 2.3 0.3 - 6.2 % 08/07/2025 7:10 [facility] Basophil % 0.2 0.0 - 1.5 % 08/07/2025 7:10 [facility] Immature Grans % 0.5 0.0 - 0.5 % 08/07/2025 7:10 AM EDT [facility] Neutrophils, Absolute 8.41(H) 1.70 - 7.00 10*3/mm3 08/07/2025 7:10 AM EDT [facility] Lymphocytes, Absolute 2.89 0.70 - 3.10 10*3/mm3 08/07/2025 7:10 AM EDT [facility] Monocytes, Absolute 1.56(H) 0.10 - 0.90 10*3/mm3 08/07/2025 7:10 AM EDT [facility] Eosinophils, Absolute 0.31 0.00 - 0.40 10*3/mm3 08/07/2025 7:10 AM EDT [facility] Basophils, Absolute 0.03 0.00 - 0.20 10*3/mm3 08/07/2025 7:10 AM EDT [facility] Immature Grans, Absolute 0.07(H) 0.00 - 0.05 10*3/mm3 08/07/2025 7:10 AM EDT [facility] nRBC 0.0 0.0 - 0.2 /100 WBC 08/07/2025 7:10 AM EDT [facility] Blood Venipuncture / Unknown 08/07/2025 6:48 AM EDT 08/07/2025 7:00 AM EDT us Rocky Garcia MD LAB BLOOD ORDERABLES F inal Result [facility]
[address] [place] [address], * (ABNORMAL) Basic Metabolic Panel (08/06/2025 10:56 AM EDT) [facility] Glucose 124(H) 65 - 99 mg/dL 08/06/2025 12:15 PM EDT [facility] BUN 7.9(L) 8.0 - 23.0 mg/dL 08/06/2025 12:15 PM EDT [facility] Creatinine 0.54(L) 0.57 - 1.00 mg/dL 08/06/2025 12:15 PM EDT [facility] Sodium 133(L) 136 - 145 mmol/L 08/06/2025 12:15 PM EDT [facility] Potassium 4.4 3.5 - 5.2 mmol/L 08/06/2025 12:15 PM EDT [facility] Chloride 96(L) 98 - 107 mmol/L 08/06/2025 12:15 PM EDT [facility] CO2 32.5(H) 22.0 - 29.0 mmol/L 08/06/2025 12:15 PM EDT [facility] Calcium 8.5(L) 8.6 - 10.5 mg/dL 08/06/2025 12:15 PM EDT [facility] BUN/Creatinine Ratio 14.6 7.0 - 25.0 08/06/2025 12:15 PM EDT [facility] Anion Gap 4.5(L) 5.0 - 15.0 mmol/L 08/06/2025 12:15 PM EDT [facility] eGFR 90.9 >60.0 mL/min/1.7 3 08/06/2025 12:15 PM T [facility] Blood Venipuncture / Unknown 08/06/2025 10:56 AM EDT 08/06/2025 11:59 AM EDT [facility] - 08/06/2025 12:15 PM EDT [...] does not include race as a factor Neda Ocampo DO LAB BLOOD ORDERABLES Final Result [facility]
[address] [place] [address], * (ABNORMAL) CBC (No Diff) (08/06/2025 10:56 AM EDT) WBC 10.16 3.40 - 10.80 10*3/mm3 08/06/2025 11:20 AM EDT [facility] RBC 3.22(L) 3.77 - 5.28 10*6/mm3 08/06/2025 11:20 AM EDT [facility] Hemoglobin 9.2(L) 12.0 - 15.9 g/dL 08/06/2025 11:20 AM EDT [facility] Hematocrit 29.6(L) 34.0 - 46.6 % 08/06/2025 11:20 AM EDT [facility] MCV 91.9 79.0 - 97.0 fL 08/06/2025 11:20 AM EDT [facility] MCH 28.6 26.6 - 33.0 pg 08/06/2025 11:20 AM EDT [facility] MCHC 31.1(L) 31.5 - 35.7 g/dL 08/06/2025 11:20 AM EDT [facility] RDW 12.7 12.3 - 15.4 % 08/06/2025 11:20 AM EDT [facility] RDW-SD 42.1 37.0 - 54.0 fl 08/06/2025 11:20 AM EDT [facility] MPV 8.8 6.0 - 12.0 fL 08/06/2025 11:20 AM EDT [facility] Platelets 452(H) 140 - 450 10*3/mm3 08/06/2025 11:20 AM EDT [facility] Blood Venipuncture / Unknown 08/06/2025 10:56 AM EDT 08/06/2025 11:16 AM EDT Nead Liz Ocampo DO LAB BLOOD ORDERABLES Final Result Performing Organization Address City/[facility]/ZIP Co de Phone Number [facility]
[address] [place] [address], * (ABNORMAL) Heparin Anti-Xa (08/05/2025 12:27 PM EDT) Heparin Anti-Xa (UFH) 0.10(L) 0.30 - 0.70 IU/ml 08/05/2025 1:39 PM EDT [facility] Blood Venipuncture / Unknown 08/05/2025 12:27 PM EDT 08/05/2025 1:08 PM EDT us Ulises Bonilla [facility] LAB BLOOD ORDERABLES Final Res ult Performing Organization Address City/[facility] Co de Phone Number [facility]
[address] [place] [address], * (ABNORMAL) Heparin Anti-Xa (08/05/2025 4:32 AM EDT) Heparin Anti-Xa (UFH) 0.24(L) 0.30 - 0.70 IU/ml 08/05/2025 5:42 AM EDT [facility] Blood Venipuncture / Unknown 08/05/2025 4:32 AM EDT 08/05/2025 5:05 AM EDT us Ulises Bonilla [facility] LAB BLOOD ORDERABLES Final Res ult Performing Organization Address City/[facility]/ZIP Co de Phone Number [facility]
[address] [place] [address], * (ABNORMAL) CBC Auto Differential (08/05/2025 4:32 AM EDT) WBC 10.01 3.40 - 10.80 10*3/mm3 08/05/2025 5:17 AM EDT [facility] RBC 3.20(L) 3.77 - 5.28 10*6/mm3 08/05/2025 5:17 AM EDT [facility] Hemoglobin 9.1(L) 12.0 - 15.9 g/dL 08/05/2025 5:17 AM EDT [facility] Hematocrit 29.0(L) 34.0 - 46.6 % 08/05/2025 5:17 AM EDT [facility] MCV 90.6 79.0 - 97.0 fL 08/05/2025 5:17 AM EDT [facility] MCH 28.4 26.6 - 33.0 pg 08/05/2025 5:17 AM EDT [facility] MCHC 31.4(L) 31.5 - 35.7 g/dL 08/05/2025 5:17 AM EDT [facility] RDW 12.9 12.3 - 15.4 % 08/05/2025 5:17 [facility] RDW-SD 42.7 37.0 - 54.0 fl 08/05/2025 5:17 [facility] MPV 9.0 6.0 - 12.0 fL 08/05/2025 5:17 AM EDT [facility] Platelets 443 140 - 450 10*3/mm3 08/05/2025 5:17 AM EDT [facility] Neutrophil % 51.8 42.7 - 76.0 % 08/05/2025 5:17 AM EDT [facility] Lymphocyte % 31.4 19.6 - 45.3 % 08/05/2025 5:17 AM EDT [facility] Monocyte % 14.3(H) 5.0 - 12.0 % 08/05/2025 5:17 AM EDT [facility] Eosinophil % 1.7 0.3 - 6.2 % 08/05/2025 5:17 AM EDT [facility] Basophil % 0.3 0.0 - 1.5 % 08/05/2025 5:17 AM EDT [facility] Immature Grans % 0.5 0.0 - 0.5 % 08/05/2025 5:17 AM EDT [facility] Neutrophils, Absolute 5.19 1.70 - 7.00 10*3/mm3 08/05/2025 5:17 AM EDT [facility] Lymphocytes, Absolute 3.14(H) 0.70 - 3.10 10*3/mm3 08/05/2025 5:17 AM EDT [facility] Monocytes, Absolute 1.43(H) 0.10 - 0.90 10*3/mm3 08/05/2025 5:17 AM EDT [facility] Eosinophils, Absolute 0.17 0.00 - 0.40 10*3/mm3 08/05/2025 5:17 AM EDT [facility] Basophils, Absolute 0.03 0.00 - 0.20 10*3/mm3 08/05/2025 5:17 AM EDT [facility] Immature Grans, Absolute 0.05 0.00 - 0.05 10*3/mm3 08/05/2025 5:17 AM EDT [facility] nRBC 0.0 0.0 - 0.2 /100 WBC 08/05/2025 5:17 AM EDT [facility] Blood Venipuncture / Unknown 08/05/2025 4:32 AM EDT 08/05/2025 5:05 AM EDT us Rocky Garcia MD LAB BLOOD ORDERABLES F inal Result [facility]
[address] [place] [address], * (ABNORMAL) Basic Metabolic Panel (08/05/2025 4:32 AM EDT) [facility] Glucose 96 65 - 99 mg/dL 08/05/2025 5:49 AM EDT [facility] BUN 8.9 8.0 - 23.0 mg/dL 08/05/2025 5:49 AM EDT [facility] Creatinine 0.48(L) 0.57 - 1.00 mg/dL 08/05/2025 5:49 AM EDT [facility] Sodium 134(L) 136 - 145 mmol/L 08/05/2025 5:49 AM EDT [facility] Potassium 4.3 3.5 - 5.2 mmol/L 08/05/2025 5:49 AM EDT [facility] Chloride 100 98 - 107 mmol/L 08/05/2025 5:49 AM EDT [facility] CO2 27.6 22.0 - 29.0 mmol/L 08/05/2025 5:49 AM EDT [facility] Calcium 8.4(L) 8.6 - 10.5 mg/dL 08/05/2025 5:49 AM T [facility] BUN/Creatinine Ratio 18.5 7.0 - 25.0 08/05/2025 5:49 AM EDT [facility] Anion Gap 6.4 5.0 - 15.0 mmol/L 08/05/2025 5:49 AM [facility] eGFR 93.5 >60.0 mL/min/1.7 3 08/05/2025 5:49 AM [facility] Blood Venipuncture / Unknown 08/05/2025 4:32 AM EDT 08/05/2025 5:03 AM EDT [facility] - 08/05/2025 5:49 AM EDT GFR [...] ORDERABLES F inal Result Performing Organization Address City/[facility]/ZIP Co de Phone Number [facility]
[address] [place] [address], * (ABNORMAL) Heparin Anti-Xa (08/04/2025 9:18 PM EDT) [facility] Heparin Anti-Xa (UFH) 0.10(L) 0.30 - 0.70 IU/ml 08/04/2025 9:47 PM EDT [facility] Blood Venipuncture / Unknown 08/04/2025 9:18 PM EDT 08/04/2025 9:27 PM EDT Rocky Garcia MD LAB BLOOD ORDERABLES F inal Result Performing Organization Address [facility] Co de Phone Number [facility]
[address] [place] [address], * (ABNORMAL) CBC Auto Differential (08/04/2025 4:12 AM EDT) [facility] WBC 10.43 3.40 - 10.80 10*3/mm3 08/04/2025 4:35 AM EDT [facility] RBC 3.08(L) 3.77 - 5.28 10*6/mm3 08/04/2025 4:35 AM EDT [facility] Hemoglobin 8.7(L) 12.0 - 15.9 g/dL 08/04/2025 4:35 AM EDT [facility] [facility] Hematocrit 27.6(L) 34.0 - 46.6 % 08/04/2025 4:35 AM EDT [facility] MCV 89.6 79.0 - 97.0 fL 08/04/2025 4:35 AM EDT [facility] MCH 28.2 26.6 - 33.0 pg 08/04/2025 4:35 AM EDT [facility] MCHC 31.5 31.5 - 35.7 g/dL 08/04/2025 4:35 AM [facility] RDW 13.0 12.3 - 15.4 % 08/04/2025 4:35 AM [facility] RDW-SD 42.8 37.0 - 54.0 fl 08/04/2025 4:35 AM [facility] MPV 8.9 6.0 - 12.0 fL 08/04/2025 4:35 AM [facility] Platelets 405 140 - 450 10*3/mm3 08/04/2025 4:35 AM [facility] Neutrophil % 61.8 42.7 - 76.0 % 08/04/2025 4:35 AM [facility] Lymphocyte % 23.5 19.6 - 45.3 % 08/04/2025 4:35 AM [facility] Monocyte % 12.8(H) 5.0 - 12.0 % 08/04/2025 4:35 AM [facility] Eosinophil % 1.0 0.3 - 6.2 % 08/04/2025 4:35 AM [facility] Basophil % 0.2 0.0 - 1.5 % 08/04/2025 4:35 AM [facility] Immature Grans % 0.7(H) 0.0 - 0.5 % 08/04/2025 4:35 AM [facility] Neutrophils, Absolute 6.45 1.70 - 7.00 10*3/mm3 08/04/2025 4:35 AM [facility] Lymphocytes, Absolute 2.45 0.70 - 3.10 10*3/mm3 08/04/2025 4:35 AM [facility] Monocytes, Absolute 1.34(H) 0.10 - 0.90 10*3/mm3 08/04/2025 4:35 AM [facility] Eosinophils, Absolute 0.10 0.00 - 0.40 10*3/mm3 08/04/2025 4:35 AM [facility] Basophils, Absolute 0.02 0.00 - 0.20 10*3/mm3 08/04/2025 4:35 AM EDT [facility] Immature Grans, Absolute 0.07(H) 0.00 - 0.05 10*3/mm3 08/04/2025 4:35 AM EDT [facility] nRBC 0.0 0.0 - 0.2 /100 WBC 08/04/2025 4:35 AM EDT [facility] Blood Structure of left upper limb / Unknown Venipuncture / Unknown 08/04/2025 4:12 AM EDT 08/04/2025 4:31 AM EDT Junior Pavel FLYNN LAB BLOOD ORDERABLES Final Res ult Performing Organization Address City/[facility]/ZIP Co de Phone Number [facility]
[address] [place] [address], * Phosphorus (08/04/2025 4:12 AM EDT) Phosphorus 2.7 2.5 - 4.5 mg/dL 08/04/2025 5:01 AM EDT [facility] Blood Structure of left upper limb / Unknown Venipuncture / Unknown 08/04/2025 4:12 AM EDT 08/04/2025 4:32 AM EDT Rocky Garcia MD LAB BLOOD ORDERABLES F inal Result Performing Organization Address City/[facility]/ZIP Co de Phone Number [facility]
[address] [place] [address], * Magnesium (08/04/2025 4:12 AM EDT) Magnesium 1.9 1.6 - 2.4 mg/dL 08/04/2025 5:01 AM EDT [facility] Blood Structure of left upper limb / Unknown Venipuncture / Unknown 08/04/2025 4:12 AM EDT 08/04/2025 4:32 AM EDT Rocky Garcia MD LAB BLOOD ORDERABLES F inal Result [facility]
[address] [place] [address], * (ABNORMAL) Comprehensive Metabolic Panel (08/04/2025 4:12 AM EDT) [facility] Glucose 90 65 - 99 mg/dL 08/04/2025 5:01 AM EDT [facility] BUN 10.1 8.0 - 23.0 mg/dL 08/04/2025 5:01 AM EDT [facility] Creatinine 0.57 0.57 - 1.00 mg/dL 08/04/2025 5:01 AM EDT [facility] Sodium 134(L) 136 - 145 mmol/L 08/04/2025 5:01 AM EDT [facility] Potassium 4.4 3.5 - 5.2 mmol/L 08/04/2025 5:01 AM EDT [facility] Chloride 99 98 - 107 mmol/L 08/04/2025 5:01 AM EDT [facility] CO2 27.2 22.0 - 29.0 mmol/L 08/04/2025 5:01 AM EDT [facility] Calcium 8.2(L) 8.6 - 10.5 mg/dL 08/04/2025 5:01 AM EDT [facility] Total Protein 5.2(L) 6.0 - 8.5 g/dL 08/04/2025 5:01 AM EDT [facility] Albumin 2.8(L) 3.5 - 5.2 g/dL 08/04/2025 5:01 AM EDT [facility] ALT (SGPT) 15 1 - 33 U/L 08/04/2025 5:01 AM EDT [facility] AST (SGOT) 27 1 - 32 U/L 08/04/2025 5:01 AM EDT [facility] Alkaline Phosphatase 49 39 - 117 U/L 08/04/2025 5:01 AM EDT [facility] Total Bilirubin 0.2 0.0 - 1.2 mg/dL 08/04/2025 5:01 AM EDT [facility] Globulin 2.4 gm/dL 08/04/2025 5:01 AM EDT [facility] Comment:Calculated Result A/G Ratio 1.2 g/dL 08/04/2025 5:01 AM EDT [facility] BUN/Creatinine Ratio 17.7 7.0 - 25.0 08/04/2025 5:01 AM EDT [facility] Anion Gap 7.8 5.0 - 15.0 mmol/L 08/04/2025 5:01 AM EDT [facility] eGFR 89.7 >60.0 mL/min/1.7 3 08/04/2025 5:01 AM EDT [facility] Blood Structure of left upper limb / Unknown Venipuncture / Unknown 08/04/2025 4:12 AM EDT 08/04/2025 4:32 AM EDT [facility] - 08/04/2025 5:01 AM EDT [...] MD LAB BLOOD ORDERABLES F inal Result [facility]
[address] [place] [address], * Telemetry Scan (08/03/2025 11:08 PM EDT) [facility] ECG ORDERABLES Final Result * (ABNORMAL) CBC Auto Differential (08/03/2025 4:34 AM EDT) WBC 11.48(H) 3.40 - 10.80 10*3/mm3 08/03/2025 4:44 AM EDT [facility] RBC 3.43(L) 3.77 - 5.28 10*6/mm3 08/03/2025 4:44 AM EDT [facility] Hemoglobin 9.8(L) 12.0 - 15.9 g/dL 08/03/2025 4:44 AM EDT [facility] Hematocrit 30.2(L) 34.0 - 46.6 % 08/03/2025 4:44 AM EDT [facility] MCV 88.0 79.0 - 97.0 fL 08/03/2025 4:44 AM EDT [facility] MCH 28.6 26.6 - 33.0 pg 08/03/2025 4:44 AM EDT [facility] MCHC 32.5 31.5 - 35.7 g/dL 08/03/2025 4:44 AM EDT [facility] RDW 12.9 12.3 - 15.4 % 08/03/2025 4:44 AM EDT [facility] RDW-SD 41.1 37.0 - 54.0 fl 08/03/2025 4:44 AM EDT [facility] MPV 8.9 6.0 - 12.0 fL 08/03/2025 4:44 AM EDT [facility] Platelets 360 140 - 450 10*3/mm3 08/03/2025 4:44 AM EDT [facility] Neutrophil % 84.9(H) 42.7 - 76.0 % 08/03/2025 4:44 AM EDT [facility] Lymphocyte % 8.5(L) 19.6 - 45.3 % 08/03/2025 4:44 AM EDT [facility] Monocyte % 5.9 5.0 - 12.0 % 08/03/2025 4:44 AM EDT [facility] Eosinophil % 0.0(L) 0.3 - 6.2 % 08/03/2025 4:44 AM EDT [facility] Basophil % 0.1 0.0 - 1.5 % 08/03/2025 4:44 AM EDT [facility] Immature Grans % 0.6(H) 0.0 - 0.5 % 08/03/2025 4:44 AM EDT [facility] Neutrophils, Absolute 9.74(H) 1.70 - 7.00 10*3/mm3 08/03/2025 4:[facility] Lymphocytes, Absolute 0.98 0.70 - 3.10 10*3/mm3 08/03/2025 4:44 AM EDT [facility] Monocytes, Absolute 0.68 0.10 - 0.90 10*3/mm3 08/03/2025 4:44 AM [facility] Eosinophils, Absolute 0.00 0.00 - 0.40 10*3/mm3 08/03/2025 4:44 AM EDT [facility] Basophils, Absolute 0.01 0.00 - 0.20 10*3/mm3 08/03/2025 4:44 AM [facility] Immature Grans, Absolute 0.07(H) 0.00 - 0.05 10*3/mm3 08/03/2025 4:44 AM [facility] nRBC 0.0 0.0 - 0.2 /100 WBC 08/03/2025 4:44 AM [facility] Blood Structure of left upper limb / Unknown Venipuncture / Unknown 08/03/2025 4:34 AM EDT 08/03/2025 4:41 AM EDT Marlon [facility] MD LAB BLOOD ORDERABLES Final Res ult [facility]
[address] [place] [address], * (ABNORMAL) Basic Metabolic Panel (08/03/2025 4:34 AM EDT) Glucose 117(H) 65 - 99 mg/dL 08/03/2025 5:04 AM EDT [facility] BUN 11.3 8.0 - 23.0 mg/dL 08/03/2025 5:04 AM EDT [facility] Creatinine 0.49(L) 0.57 - 1.00 mg/dL 08/03/2025 5:04 AM EDT [facility] Sodium 129(L) 136 - 145 mmol/L 08/03/2025 5:04 AM EDT [facility] Potassium 4.5 3.5 - 5.2 mmol/L 08/03/2025 5:04 AM EDT [facility] Chloride 96(L) 98 - 107 mmol/L 08/03/2025 5:04 AM EDT [facility] CO2 23.6 22.0 - 29.0 mmol/L 08/03/2025 5:04 AM EDT [facility] Calcium 8.4(L) 8.6 - 10.5 mg/dL 08/03/2025 5:04 AM EDT [facility] BUN/Creatinine Ratio 23.1 7.0 - 25.0 08/03/2025 5:04 AM EDT [facility] Anion Gap 9.4 5.0 - 15.0 mmol/L 08/03/2025 5:04 AM EDT [facility] eGFR 93.1 >60.0 mL/min/1.7 3 08/03/2025 5:04 AM [facility] Blood Structure of left upper limb / Unknown Venipuncture / Unknown 08/03/2025 4:34 AM EDT 08/03/2025 4:40 AM EDT Narrative [facility] - 08/03/2025 5:04 AM EDT [...] FLYNN LAB BLOOD ORDERABLES Final Res ult [facility]
[address] [place] [address], * Telemetry Scan (08/02/2025 7:05 PM EDT) [facility] ECG ORDERABLES Final Result * Tissue Pathology Exam (08/02/2025 3:46 PM EDT) Case Report Surgical Pathology Report Case: [id number] Authorizing Provider: Junior Zhao MD Collected: 08/02/2025 03:46 PM Ordering Location: [facility] Received: 08/05/2025 07:46 AM OR Pathologist: Daniel Aj MD Specimens: 1) - Leg, Left, Left Popliteal Thrombus 2) - Toe, Left, Left Great Toe 08/06/2025 4:19 PM EDT [facility] Clinical Information Peripheral artery disease Critical limb ischemia of left lower extremity 08/06/2025 4:19 PM EDT [facility] Final Diagnosis 1. LEFT POPLITEAL THROMBUS, REMOVAL: Organizing hemorrhage, consistent with thrombus 2. LEFT GREAT TOE, DISARTICULATION: Toe with ulceration and necrosis No evidence of malignancy or acute osteomyelitis 08/06/2025 4:19 PM EDT [facility] at 1619 EDT Gross Description [...] bone reveals firm, dark red cut surfaces. [employer] sections are submitted as follows: 2A-en face proximal skin margin and proximal bone, submitted following decalcification 2B-discolored skin with underlying bone, submitted following decalcification. LDP 08/06/2025 4:19 PM EDT [facility] Microscopic Description The slides are reviewed and demonstrate histopathologic features supporting the above rendered diagnosis. 08/06/2025 4:19 PM EDT [facility] Tissue Structure of left lower limb / Unknown 08/02/2025 3:46 PM EDT 08/05/2025 7:46 AM EDT Comment:Left Popliteal Throm bus Tissue specimen (specimen) Structure of toe of left foot / Unknown 08/02/2025 4:21 PM EDT 08/05/2025 7:46 AM EDT Comment:Left Great Toe Marlon [facility] MD PATHOLOGY/CYTOLOGY ORDERABLES Final Result [facility]
[address] [place] [address], * Type & Screen (08/02/2025 1:30 PM EDT) ABO Type O 08/02/2025 2:31 PM EDT [facility] RH type Positive 08/02/2025 2:31 PM EDT [facility] Antibody Screen Negative 08/02/2025 2:31 PM EDT [facility] T&S Expiration Date 08/05/2025 11:59:59 PM 08/02/2025 2:31 PM EDT [facility] Blood 08/02/2025 1:30 PM EDT 08/02/2025 1:38 PM EDT Parker Bryan MD BLOOD BANK TEST ORDERABLES Ed ited Result - Final Performing Organization Address [facility] de Phone Number [facility]
[address] [place] [address], * (ABNORMAL) aPTT (08/02/2025 3:29 AM EDT) PTT 57.1(L) 60.0 - 90.0 seconds 08/02/2025 6:14 AM EDT [facility] Blood Venipuncture / Unknown 08/02/2025 3:29 AM EDT 08/02/2025 5:58 AM EDT [facility] - 08/02/2025 6:14 AM EDT PTT = The equivalent PTT values for the therapeutic range of heparin levels at 0.3 to 0.5 U/ml are 60 to 70 seconds. Ulises Bonilla [facility] LAB BLOOD ORDERABLES Final Res ult Performing Organization Address [facility] Co de Phone Number [facility]
[address] [place] [address], * (ABNORMAL) aPTT (08/01/2025 7:44 PM EDT) PTT 52.0(L) 60.0 - 90.0 seconds 08/01/2025 8:28 PM EDT [facility] Blood Venipuncture / Unknown 08/01/2025 7:44 PM EDT 08/01/2025 8:08 PM [facility]T [facility] 08/01/2025 8:28 PM EDT PTT = The equivalent PTT values for the therapeutic range of heparin levels at 0.3 to 0.5 U/ml are 60 to 70 seconds. us Annabelle Lewis [facility] LAB BLOOD ORDERABLES Final Res ult Performing Organization Address [facility] de Phone Number [facility]
[address] [place] [address], * (ABNORMAL) aPTT (08/01/2025 10:12 AM EDT) PTT 57.4(L) 60.0 - 90.0 seconds 08/01/2025 11:19 AM EDT [facility] Blood Venipuncture / Unknown 08/01/2025 10:12 AM EDT 08/01/2025 10:49 AM EDT Narrative [facility] - 08/01/2025 11:19 AM EDT PTT = The equivalent PTT values for the therapeutic range of heparin levels at 0.3 to 0.5 U/ml are 60 to 70 seconds. us Annabelle Lewis [facility] LAB BLOOD ORDERABLES Final Res ult Performing Organization Address [facility] de Phone Number [facility]
[address] [place] [address], * ABO RH Specimen Verification (08/01/2025 7:23 AM EDT) ABO Type O 08/02/2025 2:47 PM EDT [facility] RH type Positive 08/02/2025 2:47 PM EDT [facility] Blood Venipuncture / Unknown 08/01/2025 7:23 AM EDT 08/02/2025 1:54 PM EDT us Yoli Moreira MD BLOOD BANK TEST ORDERABLES Final Result Performing Organization Address City/[facility] Co de Phone Number [facility]
[address] [place] [address], * (ABNORMAL) CBC Auto Differential (08/01/2025 7:23 AM EDT) WBC 17.15(H) 3.40 - 10.80 10*3/mm3 08/01/2025 7:59 AM EDT [facility] RBC 3.74(L) 3.77 - 5.28 10*6/mm3 08/01/2025 7:59 AM EDT [facility] Hemoglobin 10.5(L) 12.0 - 15.9 g/dL 08/01/2025 7:59 AM EDT [facility] Hematocrit 33.2(L) 34.0 - 46.6 % 08/01/2025 7:59 AM EDT [facility] MCV 88.8 79.0 - 97.0 fL 08/01/2025 7:59 AM EDT [facility] MCH 28.1 26.6 - 33.0 pg 08/01/2025 7:59 AM EDT [facility] MCHC 31.6 31.5 - 35.7 g/dL 08/01/2025 7:59 AM EDT [facility] RDW 12.9 12.3 - 15.4 % 08/01/2025 7:59 AM EDT [facility] RDW-SD 42.0 37.0 - 54.0 fl 08/01/2025 7:59 AM EDT [facility] MPV 9.1 6.0 - 12.0 fL 08/01/2025 7:59 AM EDT [facility] Platelets 366 140 - 450 10*3/mm3 08/01/2025 7:59 AM EDT [facility] Neutrophil % 73.9 42.7 - 76.0 % 08/01/2025 7:59 AM EDT [facility] Lymphocyte % 14.3(L) 19.6 - 45.3 % 08/01/2025 7:59 AM EDT [facility] Monocyte % 9.8 5.0 - 12.0 % 08/01/2025 7:59 AM EDT [facility] Eosinophil % 1.4 0.3 - 6.2 % 08/01/2025 7:59 AM EDT [facility] Basophil % 0.2 0.0 - 1.5 % 08/01/2025 7:59 AM EDT [facility] Immature Grans % 0.4 0.0 - 0.5 % 08/01/2025 7:59 AM EDT [facility] Neutrophils, Absolute 12.68(H) 1.70 - 7.00 10*3/mm3 08/01/2025 7:59 AM EDT [facility] Lymphocytes, Absolute 2.45 0.70 - 3.10 10*3/mm3 08/01/2025 7:59 AM EDT [facility] Monocytes, Absolute 1.68(H) 0.10 - 0.90 10*3/mm3 08/01/2025 7:59 AM EDT [facility] Eosinophils, Absolute 0.24 0.00 - 0.40 10*3/mm3 08/01/2025 7:59 AM EDT [facility] Basophils, Absolute 0.03 0.00 - 0.20 10*3/mm3 08/01/2025 7:59 AM EDT [facility] Immature Grans, Absolute 0.07(H) 0.00 - 0.05 10*3/mm3 08/01/2025 7:59 AM EDT [facility] nRBC 0.0 0.0 - 0.2 /100 WBC 08/01/2025 7:59 AM EDT [facility] Blood Venipuncture / Unknown 08/01/2025 7:23 AM EDT 08/01/2025 7:52 AM EDT us Yoli Moreira MD LAB BLOOD ORDERABLES Final Resul t [facility]
[address] [place] [address], * (ABNORMAL) Basic Metabolic Panel (08/01/2025 7:23 AM EDT) Glucose 102(H) 65 - 99 mg/dL 08/01/2025 8:27 AM EDT [facility] BUN 10.7 8.0 - 23.0 mg/dL 08/01/2025 8:27 AM EDT [facility] Creatinine 0.49(L) 0.57 - 1.00 mg/dL 08/01/2025 8:27 AM EDT [facility] Sodium 131(L) 136 - 145 mmol/L 08/01/2025 8:27 AM T [facility] Potassium 4.0 3.5 - 5.2 mmol/L 08/01/2025 8:27 AM EDT [facility] Chloride 98 98 - 107 mmol/L 08/01/2025 8:27 AM EDT [facility] CO2 24.7 22.0 - 29.0 mmol/L 08/01/2025 8:27 AM EDT [facility] Calcium 8.5(L) 8.6 - 10.5 mg/dL 08/01/2025 8:27 AM T [facility] BUN/Creatinine Ratio 21.8 7.0 - 25.0 08/01/2025 8:27 AM T [facility] Anion Gap 8.3 5.0 - 15.0 mmol/L 08/01/2025 8:27 AM [facility] eGFR 93.1 >60.0 mL/min/1.7 3 08/01/2025 8:27 AM [facility] Blood Venipuncture / Unknown 08/01/2025 7:23 AM EDT 08/01/2025 7:53 AM EDT [facility] LABORATORY - 08/01/2025 8:27 AM EDT GFR [...] ORDERABLES Final Resul t Performing Organization Address City/[facility] Co de Phone Number [facility]
[address] [place] [address], * (ABNORMAL) aPTT (07/31/2025 10:52 PM EDT) PTT 34.8(L) 60.0 - 90.0 seconds 08/01/2025 12:47 AM EDT [facility] Blood Venipuncture / Unknown 07/31/2025 10:52 PM EDT 08/01/2025 12:31 AM EDT Narrative [facility] - 08/01/2025 12:47 AM EDT PTT = The equivalent PTT values for the therapeutic range of heparin levels at 0.3 to 0.5 U/ml are 60 to 70 seconds. Bear Tobar [facility] LAB BLOOD ORDERABLES F inal Result Performing Organization Address [facility] Co de Phone Number [facility]
[address] [place] [address], * Telemetry Scan (07/31/2025 4:36 PM EDT) [facility] ECG ORDERABLES Final Result * (ABNORMAL) aPTT (07/31/2025 4:15 PM EDT) PTT 35.2(L) 60.0 - 90.0 seconds 07/31/2025 4:[facility] Blood Structure of right upper limb / Unknown Venipuncture / Unknown 07/31/2025 4:15 PM EDT 07/31/2025 4:19 PM EDT Narrative [facility] - 07/31/2025 4:35 PM EDT PTT = The equivalent PTT values for the therapeutic range of heparin levels at 0.3 to 0.5 U/ml are 60 to 70 seconds. us Yoli Moreira MD LAB BLOOD ORDERABLES Final Resul t Performing Organization Address [facility] Co de Phone Number [facility]
[address] [place] [address], * Protime-INR (07/31/2025 4:15 PM EDT) Protime 14.2 12.2 - 15.3 Seconds 07/31/2025 4:35 PM EDT [facility] INR 1.04 0.89 - 1.12 07/31/2025 4:35 PM EDT [facility] Blood Structure of right upper limb / Unknown Venipuncture / Unknown 07/31/2025 4:15 PM EDT 07/31/2025 4:19 PM EDT us Yoli Moreira MD LAB BLOOD ORDERABLES Final Resul t Performing Organization Address [facility] Co de Phone Number [facility]
[address] [place] [address], * Heparin Anti-Xa (07/31/2025 4:15 PM EDT) Heparin Anti-Xa (UFH) 0.31 0.30 - 0.70 IU/ml 07/31/2025 4:35 PM EDT [facility] Blood Structure of right upper limb / Unknown Venipuncture / Unknown 07/31/2025 4:15 PM EDT 07/31/2025 4:19 PM EDT Yoli Moreira MD LAB BLOOD ORDERABLES Final Resul t [facility]
[address] [place] [address], * Telemetry Scan (07/31/2025 3:10 PM EDT) [facility] Onbase ECG ORDERABLES Final Result * Wheatley Top (07/31/2025 2:37 PM EDT) Extra Tube Hold for add-ons. 07/31/2025 3:01 PM EDT [facility] Comment:Auto resulted. Blood Line / Unknown 07/31/2025 2: 37 PM EDT 07/31/2025 2:52 PM EDT Gregg Munoz MD LAB BLOOD ORDER ONLY Ely l Result Performing Organization Address City/[facility]/ZIP Co de Phone Number [facility]
[address] [place] [address], * Gold Top - SST (07/31/2025 2:37 PM EDT) Extra Tube Hold for add-ons. 07/31/2025 3:01 PM EDT [facility] Comment:Auto resulted. Blood Line / Unknown 07/31/2025 2: 37 PM EDT 07/31/2025 2:52 PM EDT Gregg Munoz MD LAB BLOOD ORDER ONLY Ely l Result [facility]
[address] [place] [address], * Digoxin Level (07/31/2025 2:37 PM EDT) Digoxin 1.12 0.60 - 1.20 ng/mL 07/31/2025 3:23 PM EDT [facility] Blood Venipuncture / Unknown 07/31/2025 2:37 PM EDT 07/31/2025 2:48 PM EDT Narrative [facility] - 07/31/2025 3:23 PM EDT Results may be falsely increased if patient taking Biotin. Gregg Munoz MD LAB BLOOD ORDERABLES [place] [facility] Result [facility]
[address] [place] [address], * (ABNORMAL) C-reactive Protein (07/31/2025 2:37 PM EDT) Pathologist [facility] C-Reactive Protein 2.78(H) 0.00 - 0.50 mg/dL 07/31/2025 3:23 PM EDT [facility] Blood Venipuncture / Unknown 07/31/2025 2:37 PM EDT 07/31/2025 2:48 PM EDT Gregg Munoz MD LAB BLOOD ORDERABLES [facility] l Result [facility]
[address] [place] [address], * (ABNORMAL) Sedimentation Rate (07/31/2025 2:37 PM EDT) Sed Rate 73(H) 0 - 30 mm/hr 07/31/2025 2:57 PM EDT [facility] Blood Venipuncture / Unknown 07/31/2025 2:37 PM EDT 07/31/2025 2:48 PM EDT Gregg Munoz MD LAB BLOOD ORDERABLES [place] l Result [facility]
[address] [place] [address], * (ABNORMAL) Comprehensive Metabolic Panel (07/31/2025 2:37 PM EDT) [facility] Signature Glucose 108(H) 65 - 99 mg/dL 07/31/2025 3:27 PM EDT [facility] BUN 13.9 8.0 - 23.0 mg/dL 07/31/2025 3:27 PM EDT [facility] Creatinine 0.55(L) 0.57 - 1.00 mg/dL 07/31/2025 3:27 PM EDT [facility] Sodium 132(L) 136 - 145 mmol/L 07/31/2025 3:27 PM EDT [facility] Potassium 4.5 3.5 - 5.2 mmol/L 07/31/2025 3:27 PM EDT [facility] Chloride 97(L) 98 - 107 mmol/L 07/31/2025 3:27 PM EDT [facility] CO2 24.3 22.0 - 29.0 mmol/L 07/31/2025 3:27 PM EDT [facility] Calcium 9.1 8.6 - 10.5 mg/dL 07/31/2025 3:27 PM EDT [facility] Total Protein 6.8 6.0 - 8.5 g/dL 07/31/2025 3:27 PM EDT [facility] Albumin 3.8 3.5 - 5.2 g/dL 07/31/2025 3:27 PM EDT [facility] [facility] ALT (SGPT) 20 1 - 33 U/L 07/31/2025 3:27 PM EDT [facility] AST (SGOT) 30 1 - 32 U/L 07/31/2025 3:27 PM EDT [facility] Alkaline Phosphatase 64 39 - 117 U/L 07/31/2025 3:27 PM EDT [facility] Total Bilirubin 0.2 0.0 - 1.2 mg/dL 07/31/2025 3:27 PM EDT [facility] Globulin 3.0 gm/dL 07/31/2025 3:27 PM EDT [facility] Comment:Calculated Result A/G Ratio 1.3 g/dL 07/31/2025 3:27 PM EDT [facility] BUN/Creatinine Ratio 25.3(H) 7.0 - 25.0 07/31/2025 3:27 PM EDT [facility] Anion Gap 10.7 5.0 - 15.0 mmol/L 07/31/2025 3:27 PM EDT [facility] eGFR 90.5 >60.0 mL/min/1.7 3 07/31/2025 3:27 PM EDT [facility] Blood Venipuncture / Unknown 07/31/2025 2:37 PM EDT 07/31/2025 2:48 PM EDT [facility] - 07/31/2025 3:27 PM EDT [...] MD LAB BLOOD ORDERABLES Ely l Result [facility]
[address] [place] [address], * (ABNORMAL) CBC Auto Differential (07/31/2025 2:37 PM EDT) WBC 11.90(H) 3.40 - 10.80 10*3/mm3 07/31/2025 2:53 PM EDT [facility] RBC 4.21 3.77 - 5.28 10*6/mm3 07/31/2025 2:53 PM EDT [facility] Hemoglobin 12.2 12.0 - 15.9 g/dL 07/31/2025 2:53 PM EDT [facility] Hematocrit 37.0 34.0 - 46.6 % 07/31/2025 2:53 PM EDT [facility] MCV 87.9 79.0 - 97.0 fL 07/31/2025 2:53 PM EDT [facility] MCH 29.0 26.6 - 33.0 pg 07/31/2025 2:53 PM EDT [facility] MCHC 33.0 31.5 - 35.7 g/dL 07/31/2025 2:53 PM EDT [facility] RDW 12.8 12.3 - 15.4 % 07/31/2025 2:53 PM EDT [facility] RDW-SD 41.0 37.0 - 54.0 fl 07/31/2025 2:53 PM EDT [facility] MPV 8.7 6.0 - 12.0 fL 07/31/2025 2:53 PM EDT [facility] Platelets 404 140 - 450 10*3/mm3 07/31/2025 2:53 PM EDT [facility] Neutrophil % 62.4 42.7 - 76.0 % 07/31/2025 2:53 PM EDT [facility] Lymphocyte % 22.7 19.6 - 45.3 % 07/31/2025 2:53 PM EDT [facility] Monocyte % 9.4 5.0 - 12.0 % 07/31/2025 2:53 PM EDT [facility] Eosinophil % 4.9 0.3 - 6.2 % 07/31/2025 2:53 PM EDT [facility] Basophil % 0.3 0.0 - 1.5 % 07/31/2025 2:53 PM EDT [facility] Immature Grans % 0.3 0.0 - 0.5 % 07/31/2025 2:53 PM EDT [facility] Neutrophils, Absolute 7.42(H) 1.70 - 7.00 10*3/mm3 07/31/2025 2:53 PM EDT [facility] Lymphocytes, Absolute 2.70 0.70 - 3.10 10*3/mm3 07/31/2025 2:53 PM EDT [facility] Monocytes, Absolute 1.12(H) 0.10 - 0.90 10*3/mm3 07/31/2025 2:53 PM EDT [facility] Eosinophils, Absolute 0.58(H) 0.00 - 0.40 10*3/mm3 07/31/2025 2:53 PM EDT [facility] Basophils, Absolute 0.04 0.00 - 0.20 10*3/mm3 07/31/2025 2:53 PM EDT [facility] Immature Grans, Absolute 0.04 0.00 - 0.05 10*3/mm3 07/31/2025 2:53 PM EDT [facility] nRBC 0.0 0.0 - 0.2 /100 WBC 07/31/2025 2:53 PM EDT [facility] Blood Venipuncture / Unknown 07/31/2025 2:37 PM EDT 07/31/2025 2:48 PM EDT Gregg Munoz MD LAB BLOOD ORDERABLES E[place] l Result [facility]
[address] [place] [address], documented in this encounter Visit Diagnoses Diagnosis [...] of insulin Toe necrosis Peripheral artery disease Peripheral artery disease Critical limb ischemia of left lower extremity documented in this encounter Admitting Diagnoses Diagnosis [...] Given 08/06/2025 6:09 AM EDT 2.5 mg bisacodyl (DULCOLAX) EC tablet 5 mg [...] Daily, First dose on Tue07/31/25 at 1999 Given 08/07/2025 9:01 AM EDT 75 mg Given 08/06/2025 9:03 AM EDT 75 mg Given 08/05/2025 9:10 AM EDT 75 mg digoxin (LANOXIN) tablet 125 mcg 125 mcg, Oral, Daily Digoxin, First dose on Tue08/01/25 at 1200, Check and record heart rate. Given 08/07/2025 11:57 AM EDT 125 mcg Given 08/06/2025 12:01 PM EDT 125 mcg Given 08/05/2025 12:07 PM EDT 125 mcg gabapentin (NEURONTIN) capsule 600 mg 600 [...] Given 08/06/2025 9:02 AM EDT 600 mg HYDROcodone-acetaminophen (NORCO) 10-325 MG per tablet [...] Given 08/05/2025 9:12 PM EDT 1 tablet Hydrocortisone (Perianal) (ANUSOL-HC) 2.5 % rectal cream Rectal, 2 Times Daily, First dose on 08/05/25 at 1115 Given 08/07/2025 9:03 AM EDT Given 08/06/2025 9:13 PM EDT 1 Application Given 08/06/2025 9:03 AM EDT mupirocin (BACTROBAN) 2 % nasal ointment 1 Application 1 Application, Each Nare, 2 Times Daily, First dose on 08/03/25 at 0445, For 5 days, Administer for 5 days, even if patient transferred out of critical care. MUPIROCIN APPLICATION: 1. Place patient's bed at 30 degrees, if tolerated. 2. Wash your hands with warm soapy water or use hand bankruptcy judge. 3. Open the tube of mupirocin 2%. [...] episode. Hold if SBP less than 100. polyethylene glycol (MIRALAX) packet 17 g 17 [...] 12 Hours PRN, agitation, sleep, Starting on 07/31/25 at 1900, Caution: Look alike/sound alike drug [...] EDT 2 tablets sodium chloride 0.9 % flush 10 mL 10 mL, Intravenous, Every 12 Hours Scheduled, First dose on Tue07/31/25 at 2100 Given 08/07/2025 9:02 AM EDT 10 mL Given 08/06/2025 9:13 PM EDT 10 mL Given 08/06/2025 9:03 AM EDT 10 mL sodium chloride 1,000 mL with heparin (porcine) 10,000 Units mixture As Needed, Starting on Tue08/02/25 at 1425 Given 08/02/2025 2:25 PM EDT 1,000 mL tamsulosin (FLOMAX) 24 hr capsule 0.4 [...] disposal. 1000 (Given - Provider: William Burnett, COST CONTROL SPECIALIST)2055 (Given - Provider: Lester Veloz, COST CONTROL SPECIALIST) 0845 (Given - Provider: Holly Alvarez, COST CONTROL SPECIALIST)2204 (Given - Provider: Kate Arroyo, COST CONTROL SPECIALIST) 0742 (Given - Provider: Krystal Bustillos, COST CONTROL SPECIALIST)1234 (Not Given - Provider: Krystal Bustillos RRT [...] Daily, First dose on Tue07/31/25 at 2000 0910 (Given - Provider: Arlette Alonso RN) [...] syringe Flush tube before and after administration ([facility]) 0911 (Given - Provider: Arlette Alonso RN)1824 (Given - Provider: Arlette Alonso RN) 09 (Given - Provider: Arlette Alonso RN)1740 (Given - Provider: Arlette Alonso RN) 09 [...] with warm soapy water or use hand bankruptcy judge. 3. Open the tube of mupirocin 2%. [...] together and massage gently for 60 seconds. ([facility]) 0911 (Given - Provider: Arlette Alonso RN)2044 (Given - Provider: Olga Shannon RN) 902 (Given - Provider: Arlette Alonso RN)2112 (Given - Provider: Bonny Jimenez RN) 900 (Given - Provider: Lucy Salgado, RN) pravastatin (PRAVACHOL) tablet 40 mg 40 mg, Oral, Daily, First dose on Tue07/31/25 at 2000, Avoid grapefruit juice. 909 (Given - Provider: Arlette Alonso RN) 901 [...] RN)2112 (Given - Provider: Bonny Jimenez RN) 900 (Given - Provider: Lucy Salgado RN) sodium chloride 0.9 % flush 10 mL 10 mL, Intravenous, Every 12 Hours Scheduled, First dose on Tue07/31/25 at 2100 09 (Given - Provider: Arlette Alonso RN)2044 (Given - Provider: Olga Shannon, BRAVO) 902 (Given - Provider: Arlette Alonso RN)2112 (Given - Provider: Bonny Jimenez RN) 901 (Given - Provider: Lucy Salgado, RN) [...] Alonso RN) 900 (Given - Provider: Lucy Salgado, RN) Continuous Medication Order 08/05/2025 08/06/2025 08/07/2025 heparin 35492 units/250 mL (100 units/mL) in 0.45 % [...] BRAVO) 0608 (Given - Provider: Olga Shannon, RN)1201 (Given - Provider: Arlette Alonso RN) [...] BPA Driven Protocol Open Order & [facility] Electrolyte Replacement Protocol Algorithm to View Details [...] BPA Driven Protocol Open Order & [facility] Electrolyte Replacement Protocol Algorithm to View Details [...] BPA Driven Protocol Open Order & 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
--- OUTSIDE RECORDS SUMMARY | 2025-08-02 13:00 | XMS_ITS | Encounter Summary ---
Author Organization [facility] Address [address] [place] [address] Care Team Providers Care Solid Plasterer Name Role Phone Alexis Montanez MD Primary Care Provider [phone] Reason for Visit * Auth/Cert Specialty Diagnoses / Procedures Referred By Gumaro ferrera Referred To Contact Diagnoses Claudication Critical limb ischemia of left lower extremity Referral ID Status Reason Start Date Expiration Date Visits Re quested Visits Authorized [id number] 1 1 Encounter Details Date Type Department Care Team (Latest Contact Info) Description 08/02/2025 2:00 PM EDT Anesthesia Event Converted [facility] ANESTHESIA [address] [place] [id number] Social History Tobacco Use Types Packs/Day Years [...] and heating? Patient unable to answer 08/01/2025 [facility] - Occupational Stress Questionnaire Answer Date Recorded [...] daily living? Patient unable to answer 08/01/2025 [facility] Utilities Answer Date Recorded In the past 12 months has th e electric, gas, oil, or water company [...] on file documented as of this encounter Plan of Treatment Not on file documented as of this encounter Procedures Procedure Name Priority Date/Time Associated Diagnosis Comments ANESTHESIA PERIPHERAL BLOCK Routine 08/02/2025 2:06 PM EDT documented in this encounter Results * Peripheral Block (08/02/2025 2:06 PM EDT) Narrative Obed Tejada CRNA - 08/02/2025 2:06 PM EDT Obed Tejada CRNA 08/02/2025 4:09 PM Peripheral Block Pre-sedation assessment completed: 08/02/2025 1:56 PM Patient reassessed immediately prior to procedure Patient location during procedure: pre-op Start time: 08/02/2025 1:56 PM Stop time: 08/02/2025 2:06 PM Reason for block: at surgeon's request and post-op pain management Performed by BACKUP ADMINISTRATOR/CAA: Obed Tejada, BACKUP ADMINISTRATOR Assisted by: Melissa Bingham RN Preanesthetic Checklist [...] minimal resistance Performed by: Obed Tejada CRNA Obed Tejada CRNA ANESTHESIA ORDERABLES Edited Result - Final documented in this encounter Visit Diagnoses Not on filedocumented in this encounter Additional Health Concerns Infection Onset Date Last Indicated 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
--- OUTSIDE RECORDS SUMMARY | 2025-08-02 13:21 | XMS_ITS | Encounter Summary ---
[facility] Organization [facility] Address [address] [place] [address] Care Team Providers Care Rental Agent Name Role Phone Alexis Montanez MD Primary Care Provider [phone] Reason for Visit * Auth/Cert Specialty Diagnoses / Procedures Referred By Gumaro ferrera Referred To Contact Diagnoses Claudication Critical limb ischemia of left lower extremity Referral ID Status Reason Start Date Expiration Date Visits Re quested Visits Authorized [id number] 1 1 Encounter Details Date Type Department Care Team (Late st Contact Info) Description 08/02/2025 2:21 PM EDT Anesthesia Event [facility] OR [address] [place] [address] Shahana Patel MD [address] [place] [address] Anesthesia Record Procedure Summary Procedure Name Responsible Anesthesiologist Anesthesia Start Time Anesthesia Stop Time FEMORAL POPLITEAL BYPASS (Left: Thigh) Shahana Patel MD 08/02/25 1421 08/02/25 1645 Events Date Time Event Comment 08/02/2025 1317 1340 AN Equip Check 1421 An Start The patient was reevaluated immediately before moderate or deep sedation use and before anesthesia induction. 1421 An Start Data 1424 An Induction 1425 An Intubation 1638 An Extubation 1640 an stop data 1645 An Stop 1645 Handoff to RN The following has been completed: 1. Identification of Patient, michelle family member(s) or patient surrogate 2. Identification of the responsible Practitioner (primary service) 3. Discussion of the pertinent/attainable medical history 4. Discussion of the surgical/procedure course (procedure, reason for surgery, procedure performed) 5. Intraoperative anesthetic management and issue/concerns to include things such as airway, hemodynamics, narcotic, sedation level and paralytic management and intravenous fluids/blood products and urine output during the procedure 6. Expectations/Plans for the early post-procedure period to include things such as anticipated course (anticipatory guidance), complications, need for laboratory or ECG and medication administration 7. Opportunity for questions and acknowledgment of understanding of report from the receiving PACU/ICU team Meds Name Total rocuronium 50 MG/5ML 50 mg propofol 10 MG/ML 120 mg lidocaine PF 1% 1 % 50 mg heparin (porcine) 1000 UNIT/ML 6,000 Uni ts bupivacaine PF (MARCAINE) 0.25 % injecti on 20 mL dexamethasone sodium phosphate injection 2 mg fentaNYL citrate (PF) (SUBLIMAZE) inject ion 100 mcg dexAMETHasone 4 MG/ML 4 mg ondansetron 2 mg/mL 4 mg sugammadex 200 MG/2ML 200 mg phenylephrine 10 MG/ML 400 mcg ePHEDrine Sulfate (Pressors) 50 MG/ML 10 mg phenylephrine (ANGELKIA-SYNEPHRIN E) 20 mg in sodium chloride 0.9 % 100 mL infusion 0.43 mg vancomycin 750 mg in sodium chloride 0.9 % 250 mL IVPB-VTB 750 mg protamine 10 mg/mL injection 40 mg lactated ringers infusion 1,000 mL * Agents Name O2 N2O Air Sevoflurane Inspired Sevoflurane * Blood No blood administrations on file. Lines, Drains, and Airways Type Details Placement Removal Wound 08/02/25; 1447; Left ; anterior; thigh; Surgical; Closed Surgi 08/02/25 1447 by Jackson Barrios RN Peripheral IV Placement Date: 07/31/25; Placement Time: 1438; Catheter Size: 20 G; Orientation: Anterior, Left; Location: Forearm; Site Prep: Chlorhexidine; Technique: Anatomical landmarks; Inserted by: BRAVO Eubanks; Insertion Attempts: 1; Patient Tolerance: Tolerated well; Removal Date: 08/03/25; Removal Time: 222907/31/251438 by Cha Victoria RN 08/03/25 2230 by Handy Prakash RN ETT Placement Date: 08/02/25; Placement Time: 1425 (created via procedure documentation); Blade Size: 3; Location: Oral; Removal Date: 08/02/25; Removal Time: 1638 08/02/25 1425 by Shivani Hogue CRNA 08/02/25 1638 by Rani Amin CRNA Urethral Catheter Placement Date: 08/02/25; Placement Time: 1435; Inserted by: Peace RN; Type: Non-latex, Straight-tip; Size: 16 Fr.; Balloon Size: 10 mL; Removal Date: 08/04/25; Removal Time: 1200; Removal Reason: Per order 08/02/25 1435 by Jackson Barrios RN 08/04/25 1200 by Ирина Thayer RN Wound 08/02/25; 1542; Left ; anterior; great toe; Surgical; Closed Surgi; Amputated; 08/23/25; 1738 08/02/25 1542 by Jackson Barrios RN 08/23/25 1738 by Raquel Godinez, sales route driver 08/02/25; 1559; Left ; anterior; leg; Surgical; Closed Surgi; 08/24/25; 0343 08/02/25 1559 by Jackson Barrios RN 08/24/25 0343 by Olga Shannon RN Wound 08/02/25; 1643; Left ; distal; calf; Other (skin tear); 08/23/25; 1739 08/02/25 1643 by Fatmata Jeffries, RN 08/23/25 1739 by Raquel Godinez, BRAVO documented in this encounter Social History Tobacco Use Types Packs/Day Years [...] and heating? Patient unable to answer 08/01/2025 [facility] [place] of Occupat ional Health - Occupational Stress [...] daily living? Patient unable to answer 08/01/2025 [facility] Utilities Answer Date Recorded In the past [...] on file documented as of this encounter OR Notes * Anesthesia Postprocedure Evaluation - Rani Amin CRNA - 08/02/2025 4:45 PM EDT Patient: Hattie Zamora Procedure Summary Date: 08/02/25 Room / Location: REGI OR [facility] OR Anesthesia Start: 142 Anesthesia Stop: Procedures: FEMORAL POPLITEAL BYPASS (Left: Thigh) AMPUTATION DIGIT- LEFT GREAT TOE (Left: Leg Lower) Diagnosis: Peripheral artery disease Critical limb ischemia of left lower extremity (Peripheral artery disease [I73.9]) (Critical limb ischemia of left lower extremity [I70.222]) Surgeons: Junior Zhao MD Provider: Shahana Patel MD Anesthesia Type: general ASA Status: 3 Anesthesia Type: general Vitals Vitals Value Taken Time BP 183/71 Temp 97 Pulse 68 08/02/25 16:45 Resp 12 SpO2 100 % 08/02/25 16:45 Vitals shown include unfiled device data. Post Anesthesia Care and Evaluation Patient location during evaluation: PACU Patient participation: complete - patient participated Level of consciousness: awake and alert Pain management: adequate Airway patency: patent Anesthetic complications: No anesthetic complications PONV Status: none Cardiovascular status: hemodynamically stable and acceptable Respiratory status: nonlabored ventilation, acceptable and nasal cannula Hydration status: acceptable * Anesthesia Procedure Notes - Shivani Hogue CRNA - 08/02/2025 2:36 PM EDT Associated Order(s): Airway Airway Reason: elective Date/Time: 08/02/2025 2:25 PM Airway not difficult General Information and Staff Patient location during procedure: OR YENIFER/CAA: Shivani Hogue CRNA Indications and Patient Condition Indications for airway management: airway protection Preoxygenated: yes MILS not maintained throughout Mask difficulty assessment: 1 - vent by mask Final Airway Details Final airway type: endotracheal airway Successful airway: ETT Cuffed: yes Successful intubation technique: direct laryngoscopy Adjuncts used in placement: intubating stylet Endotracheal tube insertion site: oral Blade: Arlet Blade size: 3 ETT size (mm): 7.0 Cormack-Lehane Classification: grade I - full view of glottis Placement verified by: chest auscultation and capnometry Measured from: lips ETT/EBT to lips (cm): 20 Number of attempts at approach: 1 Assessment: lips, teeth, and gum same as pre-op and atraumatic intubation Additional Comments Negative epigastric sounds, Breath sound equal bilaterally with symmetric chest rise and fall * Anesthesia Procedure Notes - Obed Tejada CRNA - 08/02/2025 1:56 PM EDT Associated Order(s): Peripheral Block Peripheral Block Pre-sedation assessment completed: 08/02/2025 1:56 PM Patient reassessed immediately prior to procedure Patient location during procedure: pre-op Start time: 08/02/2025 1:56 PM Stop time: 08/02/2025 2:06 PM Reason for block: at surgeon's request and post-op pain management Performed by DIE FINISHER FORGING/CAA: Obed Tejada, YENIFER Assisted by: Melissa Bingham [...] minimal resistance Performed by: Obed Tejada CRNA * Anesthesia Preprocedure Evaluation - Parker Bryan MD - 08/02/2025 11:09 AM EDT Anesthesia Evaluation Patient summary reviewed and Nursing notes reviewed NPO Solid Status: > 8 hours NPO Liquid Status: > 2 hours Airway Mallampati: I TM distance: >3 FB Neck ROM: full No difficulty expected Dental Pulmonary breath sounds clear to auscultation (+) asthma, Cardiovascular ECG reviewed Rhythm: regular Rate: normal (+) hypertension, dysrhythmias (LBBB), PVD, hyperlipidemia ROS comment: LBBB Neuro/Psych (+) poor historian. 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 Plan discussed with DIE FINISHER FORGING. CODE STATUS: Code Status (Patient has no pulse and is not breathing): CPR (Attempt to Resuscitate) Medical Interventions (Patient has pulse or is breathing): Full Support Level Of Support Discussed With: Patient documented in this encounter Plan of Treatment Not on file documented as of this encounter Procedures Procedure Name Priority Date/Time Associated Diagnosis Comments ANESTHESIA INTUBATION Routine 08/02/2025 2:36 PM EDT ANESTHESIA PERIPHERAL BLOCK Routine 08/02/2025 2:06 PM EDT documented in this encounter Results * BH AN ETT AIRWAY (08/02/2025 2:36 PM EDT) Shivani Stewart CRNA - 08/02/2025 2:36 PM EDT Shivani Hogue CRNA 08/02/2025 2:37 PM Airway Reason: elective Date/Time: 08/02/2025 2:25 PM Airway not difficult General Information and Staff Patient location during procedure: OR DIE FINISHER FORGING/CAA: Shivani Hogue CRNA Indications and Patient Condition Indications for airway management: airway protection Preoxygenated: yes MILS not maintained throughout Mask difficulty assessment: 1 - vent by mask Final Airway Details Final airway type: endotracheal airway Successful airway: ETT Cuffed: yes Successful intubation technique: direct laryngoscopy Adjuncts used in placement: intubating stylet Endotracheal tube insertion site: oral Blade: Arlet Blade size: 3 ETT size (mm): 7.0 Cormack-Lehane Classification: grade I - full view of glottis Placement verified by: chest auscultation and capnometry Measured from: lips ETT/EBT to lips (cm): 20 Number of attempts at approach: 1 Assessment: lips, teeth, and gum same as pre-op and atraumatic intubation Additional Comments Negative epigastric sounds, Breath sound equal bilaterally with symmetric chest rise and fall us Shivani Hogue CRNA ANESTHESIA ORDERABLES Fin al Result * Peripheral Block (08/02/2025 2:06 PM EDT) [...] Diagnoses Not on filedocumented in this encounter Administered Medications Inactive Administered Medications - up to 3 most recent administrations Medication Order MAR Action Action Date Dose Rate Site bupivacaine (PF) (MARCAINE) 0.25 % injection Injection, One-Time Injection, Starting on Tue08/02/25 at 1357, For 1 dose Given 08/02/2025 1:57 PM EDT 20 mL dexAMETHasone (DECADRON) injection Intravenous, As Needed, Starting on Tue08/02/25 at 1432 Given 08/02/2025 2:32 PM EDT 4 mg dexAMETHasone sodium phosphate injection Injection, One-Time Injection, Starting on Tue08/02/25 at 1357, For 1 dose Given 08/02/2025 1:57 PM EDT 2 mg ePHEDrine Sulfate (Pressors) Intravenous, As Needed, Starting on Tue08/02/25 at 1543 Given 08/02/2025 3:43 PM EDT 10 mg fentaNYL citrate (PF) (SUBLIMAZE) injection Intravenous, One-Time Injection, Starting on Tue08/02/25 at 1406, For 1 dose Given 08/02/2025 2:06 PM EDT 100 mcg heparin (porcine) injection Intravenous, As Needed, Starting on Tue08/02/25 at 1513 Given 08/02/2025 3:57 PM EDT 2,000 Units Given 08/02/2025 3:13 PM EDT 4,000 Units lactated ringers infusion 9 mL/hr, Intravenous, Continuous, Starting on Tue08/02/25 at 1256, For 1 day, May switch to NS IV at KVO if renal / if indicated Restarted 08/02/2025 4:29 PM EDT Currently Infusing 08/02/2025 2:21 PM EDT 9 mL/ hr New Bag 08/02/2025 1:52 PM EDT 9 mL/hr 9 mL/hr lidocaine PF 1% (XYLOCAINE) injection Intravenous, As Needed, Starting on Tue08/02/25 at 1424 Given 08/02/2025 2:24 PM EDT 50 mg ondansetron (ZOFRAN) injection Intravenous, As Needed, Starting on Tue08/02/25 at 1629 Given 08/02/2025 4:29 PM EDT 4 mg phenylephrine (ANGELIKA-SYNEPHRINE) 20 mg in sodium chloride 0.9 % 100 mL infusion Intravenous, Continuous PRN, Starting on Tue08/02/25 at 1435 Restarted 08/02/2025 3:14 PM EDT 0.3 mcg/kg/min 4.797 mL/hr New Bag 08/02/2025 2:33 PM EDT 0.5 mcg/kg/min 7.995 mL/ hr phenylephrine (ANGELIKA-SYNEPHRINE) injection Intravenous, As Needed, Starting on Tue08/02/25 at 1435 Given 08/02/2025 3:10 PM EDT 200 mcg Given 08/02/2025 2:33 PM EDT 200 mcg propofol (DIPRIVAN) injection Intravenous, As Needed, Starting on Tue08/02/25 at 1424 Given 08/02/2025 3:18 PM EDT 20 mg Given 08/02/2025 2:24 PM EDT 100 mg protamine injection Intravenous, As Needed, Starting on Tue08/02/25 at 1610 Given 08/02/2025 4:10 PM EDT 40 mg rocuronium (ZEMURON) injection Intravenous, As Needed, Starting on Tue08/02/25 at 1424 Given 08/02/2025 2:24 PM EDT 50 mg sugammadex (BRIDION) injection Intravenous, As Needed, Starting on Tue08/02/25 at 1629 Given 08/02/2025 4:29 PM EDT 200 mg vancomycin 750 mg in sodium chloride 0.9 % 250 mL IVPB-VTB 750 mg (rounded from 799.5 mg = 15 mg/kg 53.3 kg), Intravenous, at 333.3 mL/hr, Administer over 45 Minutes, Once, On Tue08/02/25 at 1352, For 1 dose, Indications: Surgical ProphylaxisIndications:Surgical Prophylaxis New Bag 08/02/2025 2:28 PM EDT 750 mg documented in this encounter Additional Health Concerns Infection Onset Date Last Indicated Resolved Time 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
--- OUTSIDE RECORDS SUMMARY | 2025-08-22 08:30 | XMS_ITS | Encounter Summary ---
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 Patient unable to answer 08/23/2025 Q2: How many drinks containi ng alcohol do you have on a typical day when you are drinking? Patient unable to answer Q3: How often do you have si x or more drinks on one occasion? Patient unable to answer 08/23/2025 Overall Financial Resource Strain (CARDIA) Answe r Date Recorded How hard is it for you to pa y for the very basics like food, housing, medical care, and heating? Patient unable to answer 08/01/2025 [facility] - Occupational [...] daily living? Patient unable to answer 08/01/2025 [facility] Utilities Answer Date Recorded In the past 12 months has [employer], gas, oil, or water [employer] threatened to shut off services in your home? Patient unable to answer 08/01/2025 Abuse Screen Answer Date Recorded Feels Unsafe at Home or Work/School no 08/23/2025 Feels Threatened by Someone no 04/2025 Does Anyone Try to Keep You From Having Contact with Others or Doing Things Outside Your Home? no 08/23/2025 Physical Signs of Abuse Present no 08/23/2025 Housing Stability Answer Date Recorded Current Living Arrangements other (see comments) 08/23/2025 Potentially Unsafe Housing Conditions patient un able to answer 08/23/2025 Family and Community Support Answer Brian e [...] 08/01/2025 Disabilities Answer Date Recorded Difficulty Concentrating, Remembering or Making Decisions no 08/23/2025 Difficulty Managing Errands Independently yes 08/23/2025 Education Answer Date Recorded Do you want help with school or training? For example, starting or completing job training or getting a high school diploma, GED or equivalent Patient unable to answer 08/22/2025 Preferred Language Grenadian 08/22/2025 PHQ-2 Answer Date Recorded Patient Health Questionnaire-2 Score 0 07/24/2025 Comments No Sex and Gender Information Value Date Recorded Sex Assigned at Not on file Legal Sex Female 4:32 PM EDT Gender Identity Not on file Sexual Orientation Not on file documented as of this encounter Last Filed Vital Signs Vital Sign Reading Time Taken Comments Blood Pressure - - Pulse - - Temperature - - Respiratory Rate - - Oxygen Saturation - - Inhaled Oxygen Concentration - - Weight 45.4 kg (100 lb) 08/22/2025 9:16 AM EST Height 149.9 cm (4' 11 ) 08/22/2025 9:16 AM EST Body Mass Index 20.2 08/22/2025 9:16 AM EST documented in this encounter OR Notes * JASON - Amada Quach RN - 08/22/2025 8:30 AM EST An arrival time for procedure was not provided during PAT visit. If patient had any questions or concerns about their arrival time, they were instructed to contact their surgeon/physician. Additionally, if the patient referred to an arrival time that was acquired from their my chart account, patient was encouraged to verify that time with their surgeon/physician. Arrival times are NOT provided inPre Admission Testing Department. Patient to apply Chlorhexadine wipes to surgical area (as instructed) the night before procedure and the AM of procedure. Wipes provided. Patient/ daughter aware to hold eliquis prior to surgery. EKG in chart from 07/23/25. Pacemaker device check on chart from 08/02/25. documented in this encounter Plan of Treatment Not on file documented as of this encounter Procedures Procedure Name Priority Date/Time Associated Diagnosis Comments PROTIME-INR Routine 08/22/2025 8:51 AM EST CBC (NO DIFF) Routine 08/22/2025 8:51 AM EST BASIC METABOLIC PANEL Routine 08/22/2025 8:51 AM EST documented in this encounter Results * (ABNORMAL) Protime-INR (08/22/2025 8:51 AM EST) Protime 16.3(H) 12.2 - 15.3 Seconds 08/22/2025 10:11 AM EST [facility] INR 1.23(H) 0.89 - 1.12 08/22/2025 10:11 AM EST [facility] Blood Venipuncture / Unknown 08/22/2025 8:51 AM EST 08/22/2025 9:06 AM EST us [facility]lon [employer] MD LAB BLOOD ORDERABLES Final Res ult [facility]
[address] [place] [address], * (ABNORMAL) Basic Metabolic Panel (08/22/2025 8:51 AM EST) Glucose 95 65 - 99 mg/dL 08/22/2025 9:49 AM EST [facility] BUN 17.9 8.0 - 23.0 mg/dL 08/22/2025 9:49 AM [facility] Creatinine 0.55(L) 0.57 - 1.00 mg/dL 08/22/2025 9:49 AM [facility] Sodium 140 136 - 145 mmol/L 08/22/2025 9:49 AM [facility] Potassium 4.2 3.5 - 5.2 mmol/L 08/22/2025 9:49 AM [facility] Chloride 102 98 - 107 mmol/L 08/22/2025 9:49 AM [facility] CO2 25.8 22.0 - 29.0 mmol/L 08/22/2025 9:49 AM [facility] Calcium 9.1 8.6 - 10.5 mg/dL 08/22/2025 9:49 AM [facility] BUN/Creatinine Ratio 32.5(H) 7.0 - 25.0 08/22/2025 9:49 AM [facility] Anion Gap 12.2 5.0 - 15.0 mmol/L 08/22/2025 9:49 AM [facility] eGFR 90.5 >60.0 mL/min/1.7 3 08/22/2025 9:49 AM [facility] Blood Venipuncture / Unknown 08/22/2025 8:51 AM EST 08/22/2025 9:06 AM EST [facility] - 08/22/2025 9:49 AM EST GFR Categories in Chronic Kidney Disease (CKD) [...] does not include race as a factor [facility] MD LAB BLOOD ORDERABLES Final Res ult [facility]
[address] [place] [address], * (ABNORMAL) CBC (No Diff) (08/22/2025 8:51 AM EST) WBC 14.03(H) 3.40 - 10.80 10*3/mm3 08/22/2025 9:09 AM EST [facility] RBC 3.86 3.77 - 5.28 10*6/mm3 08/22/2025 9:09 AM [facility] Hemoglobin 10.4(L) 12.0 - 15.9 g/dL 08/22/2025 9:09 AM [facility] Hematocrit 34.7 34.0 - 46.6 % 08/22/2025 9:09 AM EST [facility] MCV 89.9 79.0 - 97.0 fL 08/22/2025 9:09 AM EST [facility] MCH 26.9 26.6 - 33.0 pg 08/22/2025 9:09 AM [facility] MCHC 30.0(L) 31.5 - 35.7 g/dL 08/22/2025 9:09 AM [facility] RDW 13.1 12.3 - 15.4 % 08/22/2025 9:09 AM [facility] RDW-SD 42.9 37.0 - 54.0 fl 08/22/2025 9:09 AM [facility] MPV 8.8 6.0 - 12.0 fL 08/22/2025 9:09 AM [facility] Platelets 506(H) 140 - 450 10*3/mm3 08/22/2025 9:09 AM [facility] Blood Venipuncture / Unknown 08/22/2025 8:51 AM EST 08/22/2025 9:06 AM EST [facility] LAB BLOOD ORDERABLES Final Res ult [facility]
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
--- OUTSIDE RECORDS SUMMARY | 2025-08-23 08:57 | XMS_ITS | Encounter Summary ---
Author Organization [facility] Address [address] [place] [address] Care Team Providers Care Ditch Repairer Name Role Phone Alexis Montanez MD Primary Care Provider + [phone] Reason for Referral * Home Health (Routine) - Pending Review Specialty Diagnoses / Procedures Referred By Contact Referred To Contact Home Health Services Diagnoses Critical limb ischemia of left lower extremity Toe necrosis PAD (peripheral artery disease) Type 2 diabetes mellitus with diabetic neuropathy, without long-term current use of insulin Procedures [place] OFFICE/OUTPATIENT NEW MODERATE MDM 45 MINUTES Magali Jeffery PA-C [address] [place] [id number] Phone: tel: fax: Referral ID Status Reason Start Date Expiration Date Visits Requested Visits Authorized [id number] Pending Review Specialty Services Required 11/27/2026 999 [...] Expiration Date Visits Re quested Visits Authorized [id number] 1 1 Encounter Details Date Type Department Care Team (Late st Contact Info) Description 08/23/2025 8:57 AM EST - 08/28/2025 2:51 PM [facility] Hospital Encounter [address] [place] [address] Junior Zhao MD [address] [place] [address] Neda Ocampo DO [address] [place], [place] [id number] Delbert Quesada DO [address] [facility] [address] [place] [address] Rowena Mancera MD [address] [facility] 4Th Floor [place], [place] [id number] PAD (peripheral artery disease) (Primary Dx); Critical limb ischemia of left lower extremity; Toe necrosis; Type 2 diabetes mellitus with diabetic neuropathy, without long-term current use of insulin; Claudication Discharge Disposition: Home-Health Care [facility] Social History Tobacco Use Types Packs/Day Years [...] and heating? Patient unable to answer 08/01/2025 [facility] [place] of Occupat ional Health - Occupational Stress [...] daily living? Patient unable to answer 08/01/2025 [facility] Utilities Answer Date Recorded In the past 12 months has [facility] [employer], gas, oil, or water company threatened to [...] Patient unable to answer 08/26/2025 Preferred Language [place] 08/26/2025 PHQ-2 Answer Date Recorded Patient Health [...] 08/23/2025 9:26 AM Ana Bernal RN * [place] Suicide Severity Rating Scale (Screener/Recent Self-Report) Question Answer Date of Assessment Author 6. Suicidal Behavior (Lifetime) No 5 9:26 AM Ana Ta RN documented as of this encounter Discharge Summaries * Magali Jeffery PA-C - 08/28/2025 9:33 AM EST Images from the original note were not included. [facility] Medicine Services DISCHARGE SUMMARY Patient Name: Hattie Santos : 1940 Date of Admission: 08/23/2025 8:57 AM Date of Discharge: 08/28/2025 Primary Care Physician: Alexis Montanez MD Consults Date and Time Order Name Status Description 07/31/2025 7:00 PM Inpatient Vascular Surgery Consult Completed 07/24/2025 12:46 PM Inpatient Vascular Surgery Consult Completed Hospital Course Active Hospital Problems Diagnosis POA Critical limb ischemia of left lower extremity [I70.222] Yes Severe protein-calorie malnutrition [E43] Yes Acute urinary retention [R33.8] Yes Type 2 diabetes mellitus with diabetic neuropathy, without long-term current use of insulin [E11.40] Yes Primary hypertension [I10] Yes Resolved Hospital Problems No resolved problems to display. Hospital Course: Hattie Santos is a 85yoF w/ PMH of CAD, HTN, HLD, PAD w/ prior femoropopliteal stenting that subsequently occluded on 08/02/25 and mild cognitive impairment. She underwent LT fem-pop bypass, popliteal endarterectomy and 1st toe amputation for critical limb ischemia w/ gangrenous toe. She returned to [facility] 08/23/25 for planned LT 1st TMA, 2nd toe amp, and wound debridement. Upon arrival, the decision was made to proceed w/ BKA. 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 Zhao) - Continue home dose Gabapentin 300mg BID - Post-op care including wound management per surgical service - PT/OT following - patient assist x 2 and recommend SNF. Family has opted to take her home - Family notes patient has expressed she does not want additional surgeries. Not ready for palliative or hospice discussions - Nerve catheter managed by anesthesia and removed before DC. Will send short Rx of PO pain medication - Follow-up with vascular surgery outpatient for wound check and suture removal - This patient requires hospital bed due to having a medical condition which requires positioning of the body in ways not feasible with an ordinary bed to alleviate pain and allow for mobility Anemia Post-surgical blood loss - Iron studies consistent with iron-deficiency / AOCD - Competed IV iron x 5 doses - will transition to PO at DC - B12 normal - Folate low-normal. Added PO supplement Recent urinary retention - Pepe catheter exchanged in ED on 08/23/25 - Pepe placed 2/2 urinary retention following last surgery; unclear if she had any follow up - Family deferred voiding trial this admission - Has OP appointment with [facility] Urology on 09/16/25 - Continue Flomax PAF HTN HLD CAD - Continue Plavix, Digoxin, and Pravastatin - BP running a little low. Hold Coreg at DC - Discussed with vascular surgery on 08/26 and resumed [place]essa DM2 - A1c 6.03% (07/24/25) Hypoactive delirium vs oversedation from medication Previous hx of hospital acquired delirium Likely MCI vs dementia - Sedating medications tapered - Restarted Seroquel 12.5mg HS (discharged on this during recent hospitalization) - Poor PO intake - added Boost supplements - Can refer to neurology [place] for formal cognitive eval if family desires. Will defer to PCP - Offered to start Aricept +/- Namenda - family want to trial Namenda. Do not want Aricept due to GI side effects and chronic loose BMs Asthma - Continue Symbicort and prn nebs Day of Discharge HPI: Awake in bed. Slept well last night. BKA stump pain manageable, does complain of sacral pain related to pressure sore. Family has opted for DC home. Declining voiding trial - patient has OP appointment urology on 09/16. Open to trial of Namenda for presumed dementia. Do not want to trial Aricept dueto baseline loose stools and risk of GI side effects. Review of Systems Gen- No fevers, chills CV- No chest pain, palpitations Resp- No cough, dyspnea GI- No N/V/D, abd pain Vital Signs: Temp: [98.8 ??F (37.1 ??C)-99.1 ??F (37.3 ??C)] 98.8 ??F (37.1 ??C) Heart Rate: [73-89] 76 Resp: [16-20] 16 BP: (114-126)/(51-54) 126/54 Physical Exam: Constitutional: No acute distress, awake, alert and conversational HENT: NCAT, mucous membranes moist Respiratory: Clear [...] moves all extremities spontaneously without focal deficits Pertinent and/or Most Recent Results LAB RESULTS: Lab 08/28/25 0825 08/27/25 1235 08/26/25 0803 08/25/25 0508/24/25 0605 08/22/25 0851 WBC 10.02 10.04 11.81* 9.69 11.45* 14.03* HEMOGLOBIN 7.8* 7.4* 7.7* 7.5* 8.1* 10.4* HEMATOCRIT 25.5* 25.1* 24.5* 23.6* 26.0* 34.7 PLATELETS 418 404 376 367 407 506* NEUTROS ABS -- -- -- -- 7.83* -- IMMATURE GRANS (ABS) -- -- -- -- 0.07* -- LYMPHS ABS -- -- -- -- 1.95 -- MONOS ABS -- -- -- -- 1.37* -- EOS ABS -- -- -- -- 0.20 -- MCV 89.2 91.6 87.8 87.4 90.3 89.9 PROTIME -- -- -- -- -- 16.3* Lab 08/27/25 1235 08/26/25 1852 08/26/25 0803 08/25/25 0528 08/24/25 0605 08/22/25 0851 SODIUM 137 -- 138 134* 137 140 POTASSIUM 4.7 5.2 3.3* 3.7 4.3 4.2 CHLORIDE 105 -- 102 100 102 102 CO2 24.1 -- 29.1* 25.7 24.8 25.8 ANION GAP 7.9 -- 6.9 8.3 10.2 12.2 BUN 18.0 -- 6.6* 10.1 15.8 17.9 CREATININE 0.41* -- 0.34* 0.33* 0.40* 0.55* EGFR 97.2 -- 101.6 102.4 97.7 90.5 GLUCOSE 130* -- 112* 107* 81 95 CALCIUM 7.8* -- 7.8* 7.8* 8.1* 9.1 MAGNESIUM -- -- 2.0 1.5* -- -- PHOSPHORUS -- -- 2.6 -- -- -- Lab 08/22/25 0851 PROTIME 16.3* INR 1.23* Lab 08/26/25 0803 [...] and Label noting Nerve Block Catheter . Samk tapeapplied at yellow connector and catheter connection. [...] normal with minimal resistance. Performed by: Roscoe Storm CRNA Results for orders placed during the [...] and dorsalis pedis arteries were not well-visualized. Discharge Details Discharge Medications PAUSE taking these medications Instructions Start Date carvedilol 6.25 MG tablet Wait to take this until your doctor or other care provider tells you to start again. Commonly known as: COREG 6.25 mg, 2 Times Daily With Meals New Medications Instructions Start Date ferrous sulfate 325 (65 FE) MG tablet 325 mg, Oral, Every Other Day Start Date: August 29, 2025 folic acid 1 MG tablet Commonly known as: FOLVITE 1 mg, Oral, Daily Start Date: August 29, 2025 HYDROcodone-acetaminophen 5-325 MG per tablet Commonly known as: NORCO Replaces: HYDROcodone-acetaminophen 10-325 MG per tablet 1 tablet, Oral, Every 4 Hours PRN memantine 5 MG tablet Commonly known as: NAMENDA 5 mg, Oral, Daily naloxone 4 MG/0.1ML nasal spray Commonly known as: NARCAN Call 911. Don't prime. [place] in 1 nostril for overdose. Repeat in 2-3 minutes in other nostril if no or minimal breathing/responsiveness. Changes to Medications Instructions Start Date apixaban 2.5 MG tablet tablet Commonly known as: ELIQUIS What changed: additional instructions 2.5 mg, Oral, 2 Times Daily gabapentin 300 MG capsule Commonly known as: NEURONTIN What changed: how much to take 300 mg, Oral, 2 Times Daily With Meals QUEtiapine 25 MG tablet Commonly known as: SEROquel What changed: when to take this reasons to take this 12.5 mg, Oral, Nightly Continue These Medications Instructions Start Date budesonide-formoterol 160-4.5 MCG/ACT inhaler Commonly known as: SYMBICORT 2 puffs, 2 Times Daily - RT clopidogrel 75 MG tablet Commonly known as: PLAVIX 75 mg, Daily digoxin 125 MCG tablet Commonly known as: LANOXIN 125 mcg, Daily Digoxin pravastatin 40 MG tablet Commonly known as: PRAVACHOL 40 mg, Nightly tamsulosin 0.4 MG capsule 24 hr capsule Commonly known as: FLOMAX 0.4 mg, Oral, Daily Stop These Medications HYDROcodone-acetaminophen 10-325 MG per tablet Commonly known as: NORCO Replaced by: HYDROcodone-acetaminophen 5-325 MG per tablet Allergies Allergen Reactions Codeine Mental Status Change Morphine Mental Status Change Xanax [Alprazolam] Mental Status Change Doxycycline Other (See Comments) Unknown reaction Penicillins Unknown - High Severity Sulfur Unknown - High Severity Discharge Disposition: Home with family Diet: Diet Instructions Diet: Regular/House Diet, Cardiac Diets; Healthy Heart (2-3 Na+); Regular (IDDSI 7); Thin (IDDSI 0) Discharge Diet: Regular/House Diet Cardiac Diets Cardiac Diet: Healthy Heart (2-3 Na+) Texture: Regular (IDDSI 7) Fluid Consistency: Thin (IDDSI 0) Activity: Activity Instructions Activity as Tolerated Non-weightbearing on left lower extremity Up WIth Assist CODE STATUS: Code Status and Medical Interventions: CPR (Attempt to Resuscitate); Full Support Ordered at: 08/23/25 9410 Code Status (Patient has no pulse and is not breathing): CPR (Attempt to Resuscitate) Medical Interventions (Patient has pulse or is breathing): Full Support Level Of Support Discussed With: Patient Next of Kin (If No Surrogate) Future Appointments Date Time Provider Department Center 09/16/2025 10:30 AM Melissa Briceño APRN [facility] Magali Jeffery PA-C 08/28/25 Time Spent on Discharge: I spent 40 minutes on this discharge activity which included: [id number] with the patient, reviewing the data in the system, coordination of the care with the nursing staff as well as consultants, documentation, and entering orders. Cosigned by Rowena Mancera MD at 09/02/2025 5:02 PM EST Associated attestation - Rowena Mancera MD - 09/02/2025 5:02 PM EST I have reviewed this documentation and agree. documented in this encounter Discharge Instructions * Attachments The following attachments cannot be sent through Care Everywhere. * Poor Blood Flow (Peripheral Vascular Disease): What to Know ([place]) * Surgery to Remove Part of a Leg (Leg Amputation): What to Expect ([place]) * Surgery to Remove Part of a Leg (Leg Amputation): What to Know After ([place]) * Wound Care After Stitches [place] or Tape Strips Are Removed: What to Know After ([place]) * Iron Capsules or Tablets (Supplement) ([place]) * Folic Acid Tablets ([place]) * Hydrocodone; Acetaminophen Capsules or Tablets ([place]) * Memantine Tablets ([place]) * Naloxone Nasal [place] ([place]) * Indwelling Urinary Catheter Bag Care Adult ([place]) documented in this encounter Medications at Time [...] by mouth Daily. 30 tablet 2 08/28/2025 naloxone (NARCAN) 4 MG/0.1ML nasal spray Call 911. Don't prime. [place] in 1 nostril for overdose. Repeat in 2-3 minutes in other nostril if no or minimal breathing/resp onsiveness. 2 each 08/28/2025 pravastatin (PRAVACHOL) 40 MG tablet Take 1 tablet by mouth Every Night. QUEtiapine (SEROquel) 25 MG tablet Take 0.5 tablets by mouth Every Night. 30 tablet 1 08/28/2025 tamsulosin (FLOMAX) 0.4 MG capsule 24 hr capsule Take 1 capsule by mouth Daily. 30 capsule 08/28/2025 documented as of this encounter Progress Notes * Rani Moser RN - 08/28/2025 11:52 AM EST Start PACC Note Home Health Referral Evaluated patient and on Home Care and services available. Patient offered choice of available HHC and agreeable to SN/PT/OT services with [facility]. Isolation Precautions: No active isolations START PATIENT REGISTRATION INFORMATION Order Information Order Signing Physician: Rowena Mancera MD Service Ordered RN?: Yes Service Ordered PT?: Yes Service Ordered OT?: Yes Service Ordered ST?: No Service Ordered SUPERVISOR PARKING LOT?: No Service Ordered MATERIALS DEVELOPMENT ENGINEER?: No Following Physician: Alexis Montanez MD Following Physician Overseeing Physician: Alexis Montanez MD (Required for Residents Only) Agreeable to Follow ? Yes Date/Time of Call 08/28/25 11:52 EST, Spoke with: orders in epic, current patient, POC MD is agreeable Care Coordination Same Day SOC?: No Primary Care Physician: Alexis Montanez MD Primary Care Physician Primary Care Physician Address: [address] [place] [address] Visit Instructions: N/A Service Discharge Location Type: Home Service Facility Name: N/A Service Floor Facility: N/A Service Room No: N/A Demographics Patient Last Name: Sera Patient First Name: Hattie Language/Communication Barrier: none Service Address: [address] [place] [address] Service [facility]: [place] Service State: [facility] Zip: [address] [place] [address] Other Phone Numbers: Telephone Information: Emergency Contact: Extended Emergency Contact Information Primary Emergency Contact: GIOVANNILAKESHA Address: [address] [place] [address] Mobile Relation: Daughter Cinder Worker needed? No Secondary Emergency Contact: ESTELA SANTOS Mobile Relation: Daughter Cinder Worker needed? No Admission Information Admit Date: 08/23/2025 Patient Status at Discharge: Inpatient Admitting Diagnosis: Critical limb ischemia of left lower extremity [I70.222] Toe necrosis [I96] Caregiver Information Caregiver First Name: Lakesha Caregiver Last Name: Giovanni Caregiver Relationship to Patient: daughter Caregiver Caregiver Notes: N/A HITECH Hi-Tech List Wound/Ostomy/Drain HIGHTECH: HI TECH - WOUND CARE Orders: Left BKA stump incision carae - apply xeroform or mepitel, cover with gauze, 4x4s, secure with kerlix and change every day and PRN if soiled Wound following physician: Irma hZao MD Last time wound care completed?: 08/28 Supplies sent home?: Yes How many days are covered with supplies?: unknown Teachable Caregiver Teachable Caregiver First Name: Lakesha Romero Caregiver Last Name: Giovanni Romero Caregiver Relationship to Patient: daughter Nick Caregiver Teachable Caregiver Notes: N/A Teachable Caregiver available for Start of Care visit?: Yes Teachable Caregiver agreeable to provide skilled High Tech care per physician's orders?: Yes END PATIENT REGISTRATION INFORMATION Start PACC Summary Additional Comments: current home health patient END PACC Summary Discharge Date: Pending Referral Source: [facility] Signed By: Rani Moser RN, 08/28/2025, 11:52 EST Date/Time: 08/28/25 11:52 EST End PACC Note * Magali Jeffery PA-C - 08/28/2025 9:04 AM EST Images from the original note were not included. [facility] Medicine Services PROGRESS NOTE Patient Name: Hattie Santos : 1940 Date of Admission: 08/23/2025 Primary Care Physician: Alexis Montanez MD Subjective CC: F/u BKA HPI: Awake in bed. Slept well last night. BKA stump pain manageable, does complain of sacral pain related to pressure sore. Family has opted for DC home. Declining voiding trial - patient has OP appointment urology on 09/16. Open to trial of Namenda for presumed dementia. Do not want to trial Aricept dueto baseline loose stools and risk of GI side effects. Objective Vital Signs: Temp: [98.8 ??F (37.1 ??C)-99.1 ??F (37.3 ??C)] 98.8 ??F (37.1 ??C) Heart Rate: [73-89] 76 Resp: [16-20] 16 BP: (114-126)/(51-54) 126/54 Physical Exam: Constitutional: No acute distress, awake, alert and conversational HENT: NCAT, mucous membranes moist Respiratory: Clear [...] focal deficits Results Reviewed: LAB RESULTS: Lab 08/27/25 1235 08/26/25 0803 08/25/25 0528 08/24/25 0605 08/22/25 0851 WBC 10.04 11.81* 9.69 11.45* 14.03* HEMOGLOBIN 7.4* 7.7* 7.5* 8.1* 10.4* HEMATOCRIT 25.1* 24.5* 23.6* 26.0* 34.7 PLATELETS 404 376 367 407 506* NEUTROS ABS -- -- -- 7.83* -- IMMATURE GRANS (ABS) -- -- -- 0.07* -- LYMPHS ABS -- -- -- 1.95 -- MONOS ABS -- -- -- 1.37* -- EOS ABS -- -- -- 0.20 -- MCV 91.6 87.8 87.4 90.3 89.9 PROTIME -- -- -- -- 16.3* Lab 08/27/25 1235 08/26/25 1852 08/26/25 0803 08/25/25 0528 08/24/25 0605 08/22/25 0851 SODIUM 137 -- 138 134* 137 140 POTASSIUM 4.7 5.2 3.3* 3.7 4.3 4.2 CHLORIDE 105 -- 102 100 102 102 CO2 24.1 -- 29.1* 25.7 24.8 25.8 ANION GAP 7.9 -- 6.9 8.3 10.2 12.2 BUN 18.0 -- 6.6* 10.1 15.8 17.9 CREATININE 0.41* -- 0.34* 0.33* 0.40* 0.55* EGFR 97.2 -- 101.6 102.4 97.7 90.5 GLUCOSE 130* -- 112* 107* 81 95 CALCIUM 7.8* -- 7.8* 7.8* 8.1* 9.1 MAGNESIUM -- -- 2.0 1.5* -- -- PHOSPHORUS -- -- 2.6 -- -- -- Lab 08/22/25 0851 PROTIME 16.3* INR 1.23* Lab 08/26/25 0803 [...] the last 24 hrs Current medications: Scheduled Meds:apixaban, 2.5 mg, Oral, Q12H budesonide-formoterol, 2 puff, Inhalation, BID - RT [Held by provider] carvedilol, 3.125 mg, Oral, BID With Meals clopidogrel, 75 mg, Oral, Daily digoxin, 125 mcg, Oral, Daily ferric gluconate, 125 mg, Intravenous, Daily [START ON 08/29/2025] ferrous sulfate, 325 mg, Oral, Every Other Day folic acid, 1 mg, Oral, Daily gabapentin, 300 mg, Oral, Q12H insulin lispro, 2-7 Units, Subcutaneous, 4x Daily AC & at Bedtime memantine, 5 mg, Oral, Daily pravastatin, 40 mg, Oral, Nightly QUEtiapine, 12.5 mg, Oral, Nightly tamsulosin, 0.4 mg, Oral, Daily Continuous Infusions:ropivacaine, [...] ischemia of left lower extremity [I70.222] Yes Severe protein-calorie malnutrition [E43] Yes Acute urinary retention [R33.8] Yes Type [...] ischemia w/ gangrenous toe. She returned to [facility] 08/23/25 for planned LT 1st TMA, 2nd toe amp, and wound debridement. Upon arrival, the decision was made to proceed w/ BKA. 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 Zhao) - Nerve block in place - Due to sedation, reduced [place] to 5mg Q4H PRN - Continue home dose Gabapentin 300mg BID - Post-op care including wound management per surgical service - PT/OT following - patient assist x 2 and recommend SNF. Family has opted to take her home - Family notes patient has expressed she does not want additional surgeries. Not ready for palliative or hospice discussions Anemia Post-surgical blood loss - Iron studies consistent with iron-deficiency / AOCD - Competing IV iron today - will transition to PO in AM - B12 normal - Folate low-normal. Added PO supplement Recent urinary retention - Pepe placed 2/2 urinary retention following last surgery; unclear if she had any follow up - Family deferred voiding trial this admission - Has OP appointment with [facility] Urology on 09/16/25 - Continue Flomax PAF HTN HLD CAD - Continue Plavix, Digoxin, and Pravastatin - BP running a little low. Hold Coreg for now - Discussed with vascular surgery on 08/26 and resumed Eliquis DM2 - A1c 6.03% (07/24/25) - Continue SSI Hypoactive delirium vs oversedation from medication Previous hx of hospital acquired delirium Likely MCI vs dementia - Sedating medications tapered - Restarted Seroquel 12.5mg HS (discharged on this during recent hospitalization) - Poor PO intake - added Boost supplements - Can refer to neurology at [facility] for formal cognitive eval if family desires - Offered to start Aricept +/- Namenda - family want to trial Namenda. Do not want Aricept due to GI side effects and chronic loose BMs Asthma - Continue Symbicort and prn nebs Expected Discharge Location and Transportation: home with family via private car Expected Discharge Expected Discharge Date: 08/29/2025; Expected Discharge Time: VTE Prophylaxis:Pharmacologic & mechanical VTE prophylaxis orders are present. AM-PAC 6 Clicks Score (PT): 9 (08/26/25 1947) CODE STATUS: Code Status and Medical Interventions: CPR (Attempt to Resuscitate); Full Support Ordered at: 08/23/25 7779 Code Status (Patient has no pulse and is not breathing): CPR (Attempt to Resuscitate) Medical Interventions (Patient has pulse or is breathing): Full Support Level Of Support Discussed With: Patient Next of Kin (If No Surrogate) Magali Jeffery PA-C 08/28/25 Cosigned by Rowena Mancera MD at 09/02/2025 5:10 PM EST Associated attestation - Rowena Mancera MD - 09/02/2025 5:10 PM EST I have reviewed this documentation and agree. * Trevor De Santiago CRNA - 08/28/2025 8:07 AM EST [facility] Acute pain service Inpatient Progress Note Patient Name: Hattie Santos : 1940 Acute Pain Service Inpatient Progress Note: Analgesia:Good Pain Score:0/10 LOC: alert and awake Resp Status: room air Cardiac: VS stable Side Effects:None Catheter Site:clean, dressing intact and dry Cath type: peripheral nerve cath(InfuSystem) Volume: 1mL,5ml, 5ml InfuSystem Pump. Catheter Plan:Catheter to remain Insitu and Continue catheter infusion rate unchanged Comments: * Magali Jeffery PA-C - 08/27/2025 12:01 PM EST Images from the original note were not included. [facility] Medicine Services PROGRESS NOTE Patient Name: Hattie Santos : 1940 Date of Admission: 08/23/2025 Primary Care Physician: Alexis Montanez MD Subjective CC: F/u BKA HPI: Awake, in bed. Granddaughter at bedside. Much more alert today. Slept last night. Family considering SNF vs home - patient really wants to go home. Family notes patient has expressed she does not want additional surgeries. Not ready for palliative or hospice discussions though. Offered voiding trial before DC - family wants to discuss Objective Vital Signs: Temp: [97.8 ??F (36.6 ??C)-99.1 ??F (37.3 ??C)] 97.8 ??F (36.6 ??C) Heart Rate: [67-92] 80 Resp: [16-20] 20 BP: (95-136)/(50-83) 100/83 Physical Exam: Constitutional: No acute distress, awake, alert and conversational HENT: NCAT, mucous membranes moist Respiratory: Clear [...] deficits Results Reviewed: LAB RESULTS: Lab 08/26/25 0803 08/25/25 0528 08/24/25 0605 08/22/25 0851 WBC 11.81* [...] PROTIME -- -- -- 16.3* Lab 08/26/25 1852 08/26/25 0803 08/25/25 0528 08/24/25 0605 08/22/25 0851 SODIUM -- 138 134* 137 140 POTASSIUM 5.2 3.3* 3.7 4.3 4.2 CHLORIDE -- 102 100 102 102 CO2 -- 29.1* 25.7 24.8 25.8 ANION GAP -- 6.9 8.3 10.2 12.2 BUN -- 6.6* 10.1 15.8 17.9 CREATININE -- 0.34* 0.33* 0.40* 0.55* EGFR -- 101.6 102.4 97.7 90.5 GLUCOSE -- 112* 107* 81 95 CALCIUM -- 7.8* 7.8* 8.1* 9.1 MAGNESIUM -- 2.0 1.5* -- -- PHOSPHORUS -- 2.6 -- -- -- Lab 08/22/25 0851 PROTIME 16.3* INR 1.23* Lab 08/26/25 0803 [...] the last 24 hrs Current medications: Scheduled Meds:apixaban, 2.5 mg, Oral, Q12H budesonide-formoterol, 2 puff, Inhalation, BID - RT carvedilol, 6.25 mg, Oral, BID With Meals clopidogrel, 75 mg, Oral, Daily digoxin, 125 mcg, Oral, Daily ferric gluconate, 125 mg, Intravenous, Daily folic acid, 1 mg, Oral, Daily gabapentin, 300 mg, Oral, Q12H insulin lispro, 2-7 Units, Subcutaneous, 4x Daily AC & at Bedtime pravastatin, 40 mg, Oral, Nightly QUEtiapine, 12.5 [...] ischemia of left lower extremity [I70.222] Yes Severe protein-calorie malnutrition [E43] Yes Acute urinary retention [R33.8] Yes Type [...] ischemia w/ gangrenous toe. She returned to [facility] 08/23/25 for planned LT 1st TMA, 2nd toe amp, and wound debridement. Upon arrival, the decision was made to proceed w/ BKA. 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 Zhao) - Nerve block in place - Canton 5mg Q4H PRN, Gabapentin to home dose 300mg BID, due to sedation - Post-op care including wound management per surgical service - PT/OT following - patient assist x 2 and recommend SNF. Family considering taking her home Anemia Post-surgical blood loss - Iron studies consistent with iron-deficiency / AOCD - Continue IV iron - can transition to PO once complete or when discharged - B12 normal - Folate low-normal. Added PO supplement Recent urinary retention - Pepe placed 2/2 urinary retention following last surgery; unclear if she had any follow up - Consider voiding trial prior to DC - family discussing - If discharges with pepe, needs OP urology referral for continued management - Continue Flomax PAF HTN HLD CAD - Continue Plavix, Digoxin, and Pravastatin - BP running a little low - Coreg held again this AM. Reduce dose to 3.125mg BID - Discussed with vascular surgery on 08/26 and resumed Eliquis DM2 - A1c 6.03% (07/24/25) - Continue SSI Hypoactive delirium vs oversedation from medication Previous hx of hospital acquired delirium Likely MCI vs dementia - Sedating medications tapered - Restarted Seroquel 12.5mg HS (discharged on this during recent hospitalization) - Poor PO intake - added Boost supplements - Can refer to neurology at [place] for formal cognitive eval if family desires - Offered to start Aricept +/- Namenda - family discussing. Does have chronic loose BMs so may be apoor candidate for Aricept Asthma - Continue Symbicort and prn nebs Expected Discharge Location and Transportation: home with family vs SNF Expected Discharge Expected Discharge Date: 08/30/2025; Expected Discharge Time: VTE Prophylaxis:Pharmacologic & mechanical VTE prophylaxis orders are present. AM-PAC 6 Clicks Score (PT): 9 (08/26/25 6245) CODE STATUS: Code Status and Medical Interventions: CPR (Attempt to Resuscitate); Full Support Ordered at: 08/23/25 0845 Code Status (Patient has no pulse and is not breathing): CPR (Attempt to Resuscitate) Medical Interventions (Patient has pulse or is breathing): Full Support Level Of Support Discussed With: Patient Next of Kin (If No Surrogate) Magali Jeffery PA-C 08/27/25 Cosigned by Rowena Mancera MD at 09/02/2025 5:10 PM EST Associated attestation - Rowena Mancera MD - 09/02/2025 5:10 PM EST I have reviewed this documentation and agree. * Jorge Rock CRNA - 08/27/2025 8:25 AM EST [facility] Acute pain service Inpatient Progress Note Patient Name: Hattie Santos : 1940 Acute Pain Service Inpatient Progress Note: Analgesia:Good Pain [...] from the original note were not included. [facility] Medicine Services PROGRESS NOTE Patient Name: Hattie Santos : 1940 Date of Admission: 08/23/2025 Primary Care Physician: Alexis Montanez MD Subjective CC: F/u BKA HPI: Asleep in bed. Daughter at bedside. [...] that she was in a hospital in [place], [place]. She did not know the month [...] focal deficits Results Reviewed: LAB RESULTS: Lab 08/26/2580208/25/2552708/24/2560408/22/25 0851 WBC 11.81* 9.69 11.45* 14.03* HEMOGLOBIN [...] PROTIME -- -- -- 16.3* Lab 08/26/25 0808/25/2552708/24/2560408/22/25 0851 SODIUM 138 134* 137 140 POTASSIUM [...] PHOSPHORUS 2.6 -- -- -- Lab 08/22/25 0851 PROTIME 16.3* INR 1.23* Lab 08/26/25 0803 [...] ischemia w/ gangrenous toe. She returned to [facility] 08/23/25 for planned LT 1st TMA, 2nd toe amp, and wound debridement. Upon arrival, the decision was made to proceed w/ BKA. 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 Zhao) - Nerve block in place - Decrease Canton to 5mg Q4H PRN and decrease Gabapentin [...] supplements - Can refer to neurology at [place] for formal cognitive eval if family desires [...] to Resuscitate); Full Support Ordered at: 08/23/25 7562 Code Status (Patient has no pulse and [...] reviewed this documentation and agree. * Virgie Rodriguez, CHIN - 08/26/2025 11:19 AM EST Images from [...] elderly white female; resting in bed HEENT: [place] conjunctivae, MMM Lungs: Normal respiratory effort Ext: motor intact; LEFT BKA dressing changed; LLE medial incision/phan Neuro: Follows simple commands Psych: Apropriate mood, baseline memory loss Labs: Lab Results (last 24 hours) Procedure Component Value Units Date/Time Folate [[id number]] (Normal) Collected: 08/26/25802 Specimen: Blood Updated: 08/26/25 1229 Folate 6.55 ng/mL Narrative: Results may be falsely increased if patient taking Biotin. Vitamin B12 [[id number]] (Abnormal) Collected: 08/26/25802 Specimen: Blood Updated: 08/26/251228 Vitamin B-12 1,062 pg/mL Narrative: Results may be falsely increased if patient taking Biotin. POC Glucose Once [[id number]] (Abnormal) Collected: 08/26/25 1137 Specimen: Blood Updated: 08/26/25 1140 Glucose 142 mg/dL Comment: Serial Number: [id number]: [id number] Magnesium [[id number]] (Normal) Collected: 08/26/25802 Specimen: Blood Updated: 08/26/25 09 Magnesium 2.0 mg/dL Basic Metabolic Panel [[id number]] (Abnormal) Collected: 08/26/25802 Specimen: Blood Updated: 08/26/25858 Glucose 112 mg/dL BUN 6.6 mg/dL Creatinine [...] not include race as a factor Phosphorus [[id number]] (Normal) Collected: 08/26/25802 Specimen: Blood Updated: 08/26/25858 Phosphorus 2.6 mg/dL CBC (No Diff) [[id number]] (Abnormal) Collected: 08/26/25 0803 Specimen: Blood Updated: 08/26/25 0850 WBC 11.81 10*3/mm3 RBC 2.79 10*6/mm3 Hemoglobin 7.7 g/dL Hematocrit 24.5 % MCV 87.8 fL MCH 27.6 pg MCHC 31.4 g/dL RDW 13.2 % RDW-SD 41.9 fl MPV 9.2 fL Platelets 376 10*3/mm3 POC Glucose Once [[id number]] (Normal) Collected: 08/26/25 0722 Specimen: Blood Updated: 08/26/25 07 Glucose 119 mg/dL Comment: Serial Number: [id number]: [id number] POC Glucose Once [[id number]] (Abnormal) Collected: 08/25/251946 Specimen: Blood Updated: 08/25/25 1950 Glucose 199 mg/dL Comment: Serial Number: [id number]: [id number] [place] Comment 1 Notified Patients RN POC Glucose Once [[id number]] (Abnormal) Collected: 08/25/25 162 Specimen: Blood Updated: 08/25/25 1629 Glucose 144 mg/dL Comment: Serial Number: [id number]: [id number] Peripheral Block Roscoe Storm CRNA 08/23/2025 10:51 [...] request and post-op pain management Performed by STEREOTYPE MOLDER/CAA: Roscoe Storm, STEREOTYPE MOLDER Assisted by: Desiree Hankins RN Preanesthetic Checklist [...] of 1% Lidocaine. 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 - s/p Left femoral to below-knee popliteal [...] Roblero CRNA - 08/26/2025 8:41 AM EST [facility] Acute pain service Inpatient Progress Note Patient Name: Hattie Santos : 1940 Acute Pain Service Inpatient Progress Note: Analgesia:Good Pain [...] Patel MD - 08/25/2025 3:15 PM EST [facility] Acute pain service Inpatient Progress Note Patient Name: Hattie Santos : 1940 Acute Pain Service Inpatient Progress Note: Analgesia:Good Pain Score:4/10 LOC: alert and awake Resp Status: room air Cardiac: VS stable Side Effects:None Catheter Site:clean, dry and dressing intact Cath type: peripheral nerve cath(InfuSystem) Infusion rate: Ext/Pop: Basal: 1ml/hr, PIB: 5ml q 2 h, SAFETY PROFESSIONAL: 5 ml q 30 min Catheter Plan:Catheter to remain Insitu and Continue catheter infusion rate unchanged * Magali Jeffery PA-C - 08/25/2025 2:38 PM EST Images from the original note were not included. [facility] Medicine Services PROGRESS NOTE Patient Name: Hattie Santos : 1940 Date of Admission: 08/23/2025 Primary Care Physician: Alexis Montanez MD Subjective CC: F/u ABHIJEET HPI: Pt is laying in bed. Pt's [...] speech clear Results Reviewed: LAB RESULTS: Lab 08/25/2552708/24/2560408/22/25850 WBC 9.69 11.45* 14.03* HEMOGLOBIN 7.5* 8.1* 10.4* HEMATOCRIT 23.6* 26.0* 34.7 PLATELETS 367 407 506* NEUTROS ABS -- 7.83* -- IMMATURE GRANS (ABS) -- 0.07* -- LYMPHS ABS -- 1.95 -- MONOS ABS -- 1.37* -- EOS ABS -- 0.20 -- MCV 87.4 90.3 89.9 PROTIME -- -- 16.3* Lab 08/25/2552708/24/2560408/22/25 0851 SODIUM 134* 137 140 POTASSIUM 3.7 4.3 4.2 CHLORIDE 100 102 102 CO2 25.7 24.8 25.8 ANION GAP 8.3 10.2 12.2 BUN 10.1 15.8 17.9 CREATININE 0.33* 0.40* 0.55* EGFR 102.4 97.7 90.5 GLUCOSE 107* 81 95 CALCIUM 7.8* 8.1* 9.1 MAGNESIUM 1.5* -- -- Lab 08/22/25 0851 PROTIME 16.3* INR 1.23* Lab 08/25/25527 IRON 11* IRON SATURATION (TSAT) 6* TIBC [...] ischemia w/ gangrenous toe. She returned to [facility] 08/23/25 for planned LT 1st TMA, 2nd toe amp, and wound debridement. Upon arrival, the decision was made to proceed w/ BKA. 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 Zhao) - Nerve block in place - Increase Canton 10mg to Q4H PRN - Increase Gabapentin [...] AM-PAC 6 Clicks Score (PT): 11 (08/25/25 1135) CODE STATUS: Code Status and Medical Interventions: CPR (Attempt to Resuscitate); Full Support Ordered at: 08/23/25 1811 Code Status (Patient has no pulse and [...] Zhao MD - 08/25/2025 9:54 AM EST [facility] Progress Note Patient [...] Jr., MD - 08/24/2025 1:07 PM EST [facility] Acute pain service Inpatient Progress Note Patient Name: Hattie Santos : 1940 Acute Pain Service Inpatient Progress Note: Analgesia:Fair Pain Score:7/10 LOC: alert and awake Resp Status: room air Cardiac: VS stable Side Effects:None Catheter Site:clean, dry and dressing intact Cath type: peripheral nerve cath(InfuSystem) Infusion rate: Ext/Pop: Basal: 1ml/hr, PIB: 5ml q 2 h, SAFETY PROFESSIONAL: 5 ml q 30 min Dosing/Volume: ropivacaine 0.2% Catheter Plan:Catheter to remain Insitu and Continue catheter infusion rate unchanged Comments: Pain is fairly well controlled. Having intermittent 7-8/10 pain. Will continue to follow. * Junior Zhao MD - 08/24/2025 12:17 PM EST [facility] Progress Note Patient [...] from the original note were not included. [facility] Medicine Services PROGRESS NOTE Patient Name: [...] Label noting Nerve Block Catheter . Jerk tapeapplied at yellow connector and catheter connection. Performed by: Roscoe Storm CRNA Peripheral Block Result Date: 08/23/2025 Roscoe Storm CRNA 08/23/2025 10:51 AM Peripheral Block Patient reassessed immediately prior to procedure Patient location during procedure: pre-op Reason for block: at surgeon's request and post-op pain management Performed by STEREOTYPE MOLDER/CAA: Roscoe Storm, STEREOTYPE MOLDER Assisted by: Desiree Hankins RN Preanesthetic Checklist [...] normal with minimal resistance. Performed by: Roscoe Storm CRNA I have personally reviewed the therapy plans: [...] to Resuscitate); Full Support Ordered at: 08/23/25 8332 Code Status (Patient has no pulse and is not breathing): CPR (Attempt to Resuscitate) Medical Interventions (Patient has pulse or is breathing): Full Support Level Of Support Discussed With: Patient Next of Kin (If No Surrogate) Delbert Quesada DO 08/24/25 documented in this encounter H&P Notes * Flory Garciashua CHIN El - 08/23/2025 5:56 PM EST Images from the original note were not included. [facility] Medicine Services HISTORY AND PHYSICAL Patient Name: Htatie Santos : 1940 Primary Care Physician: Alexis Montanez MD Date of admission: 08/23/2025 Subjective Subjective Chief Complaint: Chronic LLE wound HPI: Hattie Santos is a 85 y.o. female with past medical history significant for CAD, HTN, HLD, T2DM, urinary retention, asthma, MCI, and PVD s/p fempop bypass and left great toe amputation by Dr. Zhao on 08/02 who initially presented to [facility] for scheduled LLE wound debridement and toe [...] TOE AMPUTATION; Surgeon: Junior Zhao MD; Location: [facility]; Service:Vascular; Laterality: Left; FEMORAL POPLITEAL BYPASS Left 08/02/2025 Procedure: FEMORAL POPLITEAL BYPASS; Surgeon: Junior Zhao MD; Location: [facility]BR[facility] OR; Service: Vascular; [...] request and post-op pain management Performed by STEREOTYPE MOLDER/CAA: Roscoe Storm, YENIFER Assisted by: Desiree Hankins [...] with minimal resistance. Performed by: Roscoe Storm, STEREOTYPE MOLDER Assessment & Plan Assessment & Plan Critical [...] Zhao on 08/02 who initially presented to [facility] for scheduled LLE wound debridement and toe [...] sx -Nerve catheter in place -continue Gabapentin -Canton PRN for pain -Management per vascular surgery -AM labs Urinary retention -unable to void following surgery during previous admission, ppee initially placed on 08/02 with plan for outpatient urology follow up -Replace pepe catheter -continue Flomax PAF -continue digoxin -Eliquis on hold as above Asthma -not in exacerbation -continue Symbicort HTN HLD Hx CAD -continue Coreg, Pravachol, Plavix T2DM -Hgb A1C 6.03 on 07/24/2025 -Low dose SSI for now Mood disorder -continue Seroquel 12.5 mg BID PRN DVT prophylaxis: Mech for now CODE STATUS: Code Status (Patient [...] I was available for questions. * Griselda Ocampo, SCRAP SEPARATOR - 08/23/2025 10:11 AM EST [facility] Pre-op Full history and physical [...] better. Daughter reports that cardiac interventionalist in [place] has been following her, and that she has had multiple revascularizations and stent placements. Daughter r eports that her provider told her that she was running out of options, but that she most likely would not be a candidate for amputation due to her cardiac history. Family reports that she has been following with a authorization specialist and records management technician outpatient who remove the top layer of [...] resting in bed; family at bedside HEENT: [place] conjunctivae, MMM Lungs: Normal respiratory effort Ext: motor intact; left great toe ulcer with discoloration/eschar/surrounding erythema; +left femoral pulse; no palpable left pedals Skin: Exposed skin warm Neuro: Follows simple commands Psych: Apropriate mood ?baseline memory loss? Relevant Results: Imaging Results (Last 48 Hours) Procedure Component Value Units Date/Time CT Angiogram Lower Extremity Bilateral [[id number]] Collected: 07/23/25 2345 Updated: 07/24/252303 Narrative: CT ANGIOGRAM LOWER EXTREMITY BILATERAL Date [...] MD 07/23/2025 11:58 PM EDT Workstation ID: [id number] CT Lower Extremity Left Without Contrast [[id number]] Collected: 07/23/252000 Updated: 07/23/252009 Narrative: CT LOWER [...] DO 07/23/2025 8:07 PM EDT Workstation ID: [id number] XR Chest 1 View [[id number]] Collected: 07/23/251811 Updated: 07/23/251815 Narrative: XR CHEST [...] MD 07/23/2025 6:13 PM EDT Workstation ID: [id number] XR Foot 3+ View Left [[id number]] Collected: 07/23/251749 Updated: 07/23/251754 Narrative: XR FOOT [...] MD 07/23/2025 5:52 PM EDT Workstation ID: [id number] Lab Results (last 48 hours) Procedure Component Value Units Date/Time POC Glucose Once [[id number]] (Normal) Collected: 07/24/25 1130 Specimen: Blood Updated: 07/24/25 1133 Glucose 93 mg/dL Comment: Serial Number: [id number]: [id number] POC Glucose Q6H [[id number]] (Normal) Collected: 07/24/25 075 Specimen: Blood Updated: 07/24/25754 Glucose 106 mg/dL Comment: Serial Number: [id number]: [id number] aPTT [[id number]] (Abnormal) Collected: 07/24/25 0445 Specimen: Blood Updated: 10/08/25 0617 PTT 59.2 seconds Narrative: PTT = The equivalent PTT values for the therapeutic range of heparin levels at 0.3 to 0.5 U/ml are 60 to 70 seconds. Hemoglobin A1c [[id number]] (Abnormal) Collected: 07/24/25444 Specimen: Blood Updated: 07/24/25544 Hemoglobin A1C 6.03 % Narrative: Hemoglobin A1C Ranges: Increased Risk for Diabetes 5.7% to 6.4% Diabetes >= 6.5% Diabetic Goal < 7.0% Comprehensive Metabolic Panel [[id number]] (Abnormal) Collected: 07/24/25444 Specimen: Blood Updated: 07/24/25524 [...] include race as a factor Digoxin Level [[id number]] (Normal) Collected: 07/24/25444 Specimen: Blood Updated: 07/24/25524 Digoxin 0.62 ng/mL Narrative: Results may be falsely increased if patient taking Biotin. Magnesium [[id number]] (Normal) Collected: 07/24/25444 Specimen: Blood Updated: 07/24/25524 Magnesium 1.7 mg/dL Phosphorus [[id number]] (Normal) Collected: 07/24/25444 Specimen: Blood Updated: 07/24/25524 Phosphorus 3.6 mg/dL Lipid Panel [[id number]] Collected: 07/24/25444 Specimen: Blood Updated: 07/24/25524 Total [...] NIH LDL-C calculation. High Sensitivity Troponin T [[id number]] (Abnormal) Collected: 07/24/25444 Specimen: Blood Updated: 07/24/25524 [...] due to an underlying chronic condition. CK [[id number]] (Normal) Collected: 07/24/25444 Specimen: Blood Updated: 07/24/25524 Creatine Kinase 61 U/L Lactic Acid, Plasma [[id number]] (Normal) Collected: 07/24/25444 Specimen: Blood Updated: 07/24/25516 Lactate 0.6 mmol/L Comment: Falsely depressed results may occur on samples drawn from patients receiving N-Acetylcysteine (NAC) or Metamizole. CBC Auto Differential [[id number]] (Abnormal) Collected: 07/24/25444 Specimen: Blood Updated: 07/24/25453 [...] 10*3/mm3 nRBC 0.0 /100 WBC Heparin Anti-Xa [[id number]] (Abnormal) Collected: 07/23/252199 Specimen: Blood from Arm, Left Updated: 07/23/252303 Heparin Anti-Xa (UFH) >1.10 IU/ml Protime-INR [[id number]] (Abnormal) Collected: 07/23/252199 Specimen: Blood from Arm, Left Updated: 07/23/252231 Protime 17.0 Seconds INR 1.30 aPTT [[id number]] (Abnormal) Collected: 07/23/252199 Specimen: Blood from Arm, Left Updated: 07/23/252231 PTT 38.1 seconds Narrative: PTT = The equivalent PTT values for the therapeutic range of heparin levels at 0.3 to 0.5 U/ml are 60 to 70 seconds. High Sensitivity Troponin T 1Hr [[id number]] (Abnormal) Collected: 07/23/251953 Specimen: Blood Updated: 07/23/252018 [...] condition. Blood Culture - Blood, Arm, Right [[id number]] Collected: 07/23/251734 Specimen: Blood from Arm, Right Updated: 07/23/251943 Blood Culture - Blood, Arm, Left [[id number]] Collected: 07/23/251744 Specimen: Blood from Arm, Left Updated: 07/23/251943 Comprehensive Metabolic Panel [[id number]] (Abnormal) Collected: 07/23/251731 Specimen: Blood Updated: 07/23/251801 [...] as a factor High Sensitivity Troponin T [[id number]] (Abnormal) Collected: 07/23/251731 Specimen: Blood Updated: 07/23/251801 [...] an underlying chronic condition. Lactic Acid, Plasma [[id number]] (Normal) Collected: 07/23/251731 Specimen: Blood Updated: 07/23/25 1800 Lactate 1.2 mmol/L Comment: Falsely depressed results may occur on samples drawn from patients receiving N-Acetylcysteine (NAC) or Metamizole. CBC & Differential [[id number]] (Abnormal) Collected: 07/23/251731 Specimen: Blood Updated: 07/23/251743 Narrative: The following orders were created for panel order CBC & Differential. Procedure Abnormality Status --------- ------ CBC Auto Differential[[id number]] Abnormal Final result Please view results for these tests on the individual orders. 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 - Diabetes mellitus type 2 with neuropathy [...] Admission Screen, and Pressure Injury Stg 2+ [facility] Clinical Nutrition Assessment Subjective Subjective [...] TOE AMPUTATION; Surgeon: Junior Zhao MD; Location: [facility] HYBRID OR; Service:Vascular; Laterality: Left; FEMORAL POPLITEAL BYPASS Left 08/02/2025 Procedure: FEMORAL POPLITEAL BYPASS; Surgeon: Junior Zhao MD; Location: [facility]BR[facility] OR; Service: Vascular; [...] last 7 days Lab Units 08/26/25 0803 08/25/25 0528 08/24/25 0605 SODIUM mmol/L 138 134* 137 POTASSIUM mmol/L 3.3* 3.7 4.3 GLUCOSE mg/dL 112* 107* 81 BUN mg/dL 6.6* 10.1 15.8 CREATININE mg/dL 0.34* 0.33* 0.40* CALCIUM mg/dL 7.8* 7.8* 8.1* PHOSPHORUS mg/dL 2.6 -- -- MAGNESIUM mg/dL 2.0 1.5* -- Results from last 7 days Lab Units 08/26/25 0803 08/25/25 0528 08/24/25 0605 PLATELETS 10*3/mm3 376 367 407 HEMOGLOBIN g/dL [...] Loss Loss of Muscle Mass Findings Severe [place] Severe - deep hollowing/scooping, lack of [...] in this encounter Nursing Notes * Marya Bailey OT - 08/26/2025 2:57 PM EST Goal Outcome Evaluation: Plan of Care Reviewed With: patient, family Progress: no change Outcome Evaluation: Pt. presents below baseline with ADLs and functional mobility. Limited by decraesed activity tolerance, balance, generalized weakness, and motor planning. Skilled OT services warranted to promote return to PLOF. Recommend SNF at discharge. Anticipated Discharge Disposition ([place] [facility] * Marya Garsia, PT - 08/26/2025 [...] SNF at d/c. Anticipated Discharge Disposition (PT[place] [facility] * David Dalton RN - 08/26/2025 [...] toincrease protein intake. Will reach out to senior grant writer to include Surekha. 2. For right heel [...] Foam Mattress a. Will order alternating pressure mvy-voc-besn specialty bed from [employer] Pressure Injury Prevention Protocol (initiate for a Taz Scale Score of <18): Most recent Taz Scale score: Sensory Perception: 3-->slightly limited Moisture: 4-->rarely moist Activity: 2-->chairfast Mobility: 3-->slightly limited Nutrition: 2-->probably inadequate Friction and Shear: 2-->potential problem Taz Score: 16 (08/25/25 1600) -Apply Allevyn foam dressing to sacrum/coccyx and heels. -Turn q 2 hr. using [place] Flowlock Posiitoner pillow (short dark blue). Elevate heels off bed with [place] Flowlock Positioner pillow (long dark blue) -Apply moisture barrier cream to bottom BID & PRN, if incontinent. Thank you for consulting the WOC Nurse. WOC Team will continue to follow. Please re consult if the wound(s) worsens or new issues arise. David Dalton RN, BSN, CCRN, CWOCN Wound, Ostomy and Continence (WOC) Department [facility] documented in this encounter OR Notes * Op Note - Junior Zhao MD - 08/23/2025 11:11 AM EST PROCEDURE DATE: 08/22/2025 PRE OP DIAGNOSIS: Pre-Op Diagnosis Codes: Left critical limb ischemia POST OP DIAGNOSIS: Post-op Diagnosis Same SURGEON(S) / PREMIX OPERATOR CONCENTRATE SURGEON: Junior Pavel MD PROCEDURES WITH LATERALITY: Left below-knee amputation Left tibial nerve free pedicle transfer Myodesis 22878 ANESTHESIA: General Blood loss: Minimal Specimen: Left [...] they would like to use [facility] in [place] for DME. No other needs verbalized. Malia Mahajan [phone] who request supporting clinical documentation and order be faxed to them at [phone]. [facility] and [facility] JOLENE orders. Patient plan is to discharge home and resume [facility] today via car with family to transport. Selected Continued Care - Admitted Since 08/23/2025 Destination No services have been selected for the patient. Durable Medical Equipment Coordination complete. Service Provider Services Address Phone Fax Patient Preferred [facility] Durable Medical Equipment [address] [facility] [address] [phone] -- Dialysis/Infusion No services have been selected for the patient. Home Medical Care Coordination complete. Service Provider Services Address Phone Fax Patient Preferred [facility] [facility] [address] [facility] [address] [phone] -- Therapy No services have been selected for the patient. Community & DME No services have been selected for the patient. Selected Continued Care - Prior Encounters Includes continued care and service providers with selected services from prior encounters from 05/25/2025 to 08/28/2025 Discharged on 08/07/2025 Admission date: 07/31/2025 - Discharge disposition: Home-Health Care [facility] Service Provider Services Address Phone Fax Patient Preferred [facility] [address] [facility] [facility] [address] [phone] -- Community Resources No active community resources. Final Discharge Disposition Code: 06 - home with home health care * Case Management/Social Work - Rani Pereira RN - 08/26/2025 3:22 PM EST Discharge Planning Assessment [facility] Patient Name: Hattie Santos Today's Date: 08/26/2025 Admit Date: 08/23/2025 Plan: ongoing Discharge Needs Assessment Row Name 08/26/25 1516 Living Environment People in Home child(dustin), adult [...] Coordination/Progress ongoing Discharge Plan Row Name 08/26/25 1512 Plan Plan ongoing Patient/Family in Agreement with Plan yes Plan Comments Spoke with patient and daughter at bedside regarding discharge planning. CM has been contacted by [facility] who reports patient is current with [...] at bedside to evaluate. Determined that we would all discuss rehab options after PT works with patient and places their recommendations. CM following. Patient discharge plan is ongoing. Final Discharge Disposition Code 01 - home or self-care Row Name 08/26/25 4218 Plan Plan update Patient/Family in Agreement with Plan yes Plan Comments Spoke with patient and daughter at bedside regarding discharge plan and discussed potential for rehab needs. Daughter repoting that they will not want [place] for rehab and called her POA, to discuss. PT has arrived at bedside to discuss who has verbalized that if the patient wants to go home then they will take her home. CM will continue to follow. CM following. Patient discharge plan is ongoing. Final Discharge Disposition Code 03 - [facility] Continued Care and Services - Admitted Since 08/23/2025 No active coordination exists. Selected Continued Care - Prior Encounters Includes continued care and service providers with selected services from prior encounters from 05/25/2025 to 08/26/2025 Discharged on 08/07/2025 Admission date: 07/31/2025 - Discharge disposition: Home-Health Care [facility] Service Provider Services Address Phone Fax Patient Preferred [place] [address] [phone] -- Expected Discharge Date and Time Expected Discharge Date Expected Discharge Time Aug 30, 2025 Demographic Summary Row Name 08/26/25 1514 General Information Admission Type inpatient Arrived From home Referral Source admission list Reason for Consult discharge planning Preferred Language [place] General Information Comments Alexis Montanez MD Contact Information Permission Granted to Share Info With bottle caserperennial house manager Information Comments Lakesha August, daughter [phone] Estela Santos, daughter [phone] Afua Melton, Grandchild/POA [phone] Functional Status Row Name 08/26/25 1515 Employment/ Employment/ Comments [employer] Medicare Replacement Psychosocial No documentation. Abuse/Neglect No documentation. Legal No documentation. Substance Abuse No documentation. Patient Forms No documentation. Rani Pereira RN * Therapy Evaluation - Marya Bailey, BERNARD - 08/26/2025 2:57 PM EST Images from [...] TOE AMPUTATION; Surgeon: Junior Zhao MD; Location: [facility] HYBRID OR; Service:Vascular; Laterality: Left; BELOW KNEE AMPUTATION Left 08/23/2025 Procedure: BELOW THE KNEE AMPUTATION LEFT; Surgeon: Junior Zhao MD; Location: [facility] HYBRID OR; Service: Vascular; Laterality: Left; FEMORAL POPLITEAL BYPASS Left 08/02/2025 Procedure: FEMORAL POPLITEAL BYPASS; Surgeon: Junior Zhao MD; Location: [facility] HYBRID OR; Service: Vascular; Laterality: Left; PACEMAKER IMPLANTATION PERIPHERAL ARTERIAL STENT GRAFT General Information Row Name 08/26/25 1545 OT Time and Intention Document Type evaluation - Mode of Treatment occupational therapy - Row Name 08/26/25 1545 General Information Patient Profile Reviewed yes - Prior Level of Function -- Family providing 09/05 assist. Completing pivots to W/C - Existing Precautions/Restrictions fall;left;non-weight bearing;orthostatic hypotension L BKA. nervecatheter, pepe - Barriers to Rehab medically complex;previous functional deficit;cognitive status - Row Name 08/26/25 1545 Living Environment Current Living Arrangements home - People in Home child(dustin), adult - Row Name 08/26/25 1545 Home Main Entrance Number of Stairs, Main Entrance other (see comments) Ramp - Row Name 08/26/25 1545 Stairs Within Home, Primary Number of Stairs, Within Home, Primary none - Row Name 08/26/25 1545 Cognition Orientation Status (Cognition) oriented to;person;place - Row Name 08/26/25 1543 Safety Issues/Impairments Affecting Functional Mobility Safety Issues [...] Provider Type Marya Bailey, OT Occupational Therapist Mobility/ADL's Row Name 08/26/25 1549 Bed Mobility Bed Mobility scooting/bridging;supine-sit - Scooting/Bridging Edgar (Bed Mobility) verbal cues;minimum assist (75% patient effort);2 person assist - Supine-Sit Edgar (Bed Mobility) minimum assist (75% patient effort);verbal cues;2 person assist - Assistive Device (Bed Mobility) head of bed elevated;bed rails;repositioning sheet - Comment, (Bed Mobility) VC'sto sequence transitioning from supine to sit EOB. Initial dizziness, improved with time. - Row Name 08/26/25 1549 Transfers Transfers sit-stand transfer;bed-chair transfer - Comment, (Transfers) VC's for hand placement and sequencing. Dizziness after stand, BP improved once seated and dizziness resolved. Pt. picking up R LE throughout T/F despite cues. - Row Name 08/26/25 1549 Bed-Chair Transfer Bed-Chair Edgar (Transfers) 2 person assist;verbal cues;dependent (less than 25% patient effort) - Assistive Device (Bed-Chair Transfers) other (see comments) B UE support - Row Name 08/26/25 1549 Sit-Stand Transfer Sit-Stand Edgar (Transfers) dependent (less than 25% patient effort);2 person assist;verbal cues - Assistive Device (Sit-Stand Transfers) other (see comments) B UE support - Row Name 08/26/25 1549 Activities of Daily Living BADL Assessment/Intervention bathing;upper body dressing;lower body dressing - Row Name 08/26/25 1549 Mobility Extremity Weight-bearing Status left lower extremity - Left Lower Extremity (Weight-bearing Status) non weight-bearing (NWB) - Row Name 08/26/25 1549 Bathing Assessment/Intervention Edgar Level (Bathing) lower body;perineal area;dependent (less than 25% patient effort) - Position (Bathing) supine;supported standing - Comment, (Bathing) Required clean up secondary to incontinence - Row Name 08/26/25 1549 Upper Body Dressing Assessment/Training Edgar Level (Upper Body Dressing) don;doff;front opening garment;maximum assist (25% patienteffort) - Position (Upper Body Dressing) supported sitting - Row Name 08/26/25 1549 Lower Body Dressing Assessment/Training Edgar Level (Lower Body Dressing) don;socks;dependent (less than 25% patient effort) - Position (Lower Body Dressing) sitting up in bed - User Amor (r) = Recorded By, (t) = Taken By, (c) = Cosigned By Initials Name Provider Type Marya Bailey OT Occupational Therapist Obj/Interventions [facility] Name 08/26/25 155 Sensory Assessment (Somatosensory) Sensory Assessment (Somatosensory) UE sensation intact -[facility] 08/26/25 155 Vision Assessment/Intervention Visual Impairment/Limitations WFL -[facility] Name 08/26/25 155 Range of Motion Comprehensive General Range of Motion bilateral upper extremity ROM WFL -[facility] Name 08/26/25 155 Strength Comprehensive (MMT) General Manual Muscle Testing (MMT) Assessment upper extremity strength deficits identified - Comment, General Manual Muscle Testing (MMT) Assessment B UE grossly 4/5 -[facility] Name 08/26/25 155 Balance Balance Assessment sitting static balance;sitting dynamic [...] Type Marya Bailey OT Occupational Therapist Goals/Plan [facility] Name 08/26/25 1558 Transfer Goal 1 (OT) Activity/Assistive Device (Transfer Goal 1, OT) xat-rb-vpbas/jgzme-cj-gec;fpr-cb-yzucq/zykky-gi-oak;walker, rolling - Edgar Level/Cues Needed (Transfer Goal 1, OT) maximum assist (25-49% patient effort) - Time Frame (Transfer Goal 1, OT) snf goal (LTG);10 days - Progress/Outcome (Transfer Goal 1, OT) goal ongoing -[facility] Name 08/26/25 1554 Dressing Goal 1 (OT) Activity/Device (Dressing Goal 1, OT) upper body dressing - Edgar/Cues Needed (Dressing Goal 1, OT) moderate assist (50-74% patient effort) - Time Frame (Dressing Goal 1, OT) short term goal (STG);5 days - Progress/Outcome (Dressing Goal 1, OT) goal ongoing - Row Name 08/26/25 1558 Toileting Goal 1 (OT) Activity/Device (Toileting Goal 1, OT) adjust/manage clothing;perform perineal hygiene;commode, bedside without drop arms - Edgar Level/Cues Needed (Toileting Goal 1, OT) maximum assist (25-49% patient effort) - Time Frame (Toileting Goal 1, OT) snf goal (LTG);10 days - Progress/Outcome (Toileting Goal 1, OT) goal ongoing - Row Name 08/26/25 1553 Therapy Assessment/Plan (OT) Planned Therapy Interventions (OT) activity tolerance training;adaptive equipment training;BADL retraining;functional balance retraining;occupation/activity based interventions;patient/caregiver educa tion/training;strengthening exercise;transfer/mobility retraining;ROM/therapeutic exercise - User Amor (r) = Recorded By, (t) = Taken By, (c) = Cosigned By Initials Name Provider Type Marya Bailey, OT Occupational Therapist Clinical Impression Row Name 08/26/25 932 Pain Assessment Pretreatment Pain Rating 0/10 - no pain - Posttreatment Pain Rating 0/10 - no pain - Row Name 08/26/25 808 Plan of Care Review Plan of Care Reviewed With patient;family - Progress no change - Outcome Evaluation Pt. presents below baseline with ADLs and functional mobility. Limited by decraesed activity tolerance, balance, generalized weakness, and motor planning. Skilled OT services warranted to promote return to PLOF. Recommend SNF at discharge. - Row Name 08/26/25 9155 Therapy Assessment/Plan (OT) Patient/Family Therapy Goal Statement (OT) To take care of self - Therapy Frequency (OT) daily - Predicted Duration of Therapy Intervention (OT) 10 days - Row Name 08/26/25 1713 Therapy Plan Review/Discharge Plan (OT) Anticipated Discharge Disposition (OT) [place] [facility] - Row Name 08/26/25 3573 Vital Signs Pre Systolic BP Rehab 124 -LC Pre Treatment Diastolic BP 67 -LC Intra Systolic BP Rehab 101 -LC Intra Treatment Diastolic BP 58 -LC Post Systolic BP Rehab 91 136/62 once reclined -LC Post Treatment Diastolic BP 59 -LC Pre Patient Position Supine -LC Intra Patient Position Sitting -LC Post Patient Position Sitting -LC Row Name 08/26/25 1556 Positioning and Restraints Pre-Treatment Position in bed -LC Post Treatment Position chair -LC In Chair notified nsg;reclined;call light within reach;encouraged to call for assist;exit alarm on;with family/caregiver;legs elevated;LLE elevated Special Coccyx pillow per family request - User Amor (r) = Recorded By, (t) = Taken By, (c) = Cosigned By Initials Name Provider Type Marya Silva OT Occupational Therapist Outcome Measures Row Name 08/26/25 0987 How much help from another is currently [...] -LC AM-PAC 6 Clicks Score (OT) 12 - Row Name 08/26/25 1030 How much help [...] Score (PT) 10 -KM Row Name 08/26/25 4112 Functional Assessment Outcome Measure Options AM-PAC 6 Clicks Daily Activity (OT) - User Amor (r) = Recorded By, (t) = Taken By, (c) = Cosigned By Initials Name Provider Type Marya Silva OT Occupational Therapist Edita Riggs RN Registered Nurse Occupational Therapy Education Title: PT OT WOODWORKING MACHINE FEEDER Therapies (In Progress) Topic: Occupational Therapy (In Progress) Point: ADL training (Done) Learning Progress Summary Patient Acceptance, E, VU,NR by at 08/26/20251456 Point: Precautions (Done) Learning Progress Summary Patient Acceptance, E, VU,NR by at 08/26/20251456 Point: Body mechanics (Done) Learning Progress Summary Patient Acceptance, E, VU,NR by at 08/26/20251456 User Amor Initials Effective Dates Name Provider Type [facility] 04/01/21 - Marya Bailey OT Occupational Therapist [...] Time 1457 -LC OT Received On 08/26/25 - OT Goal Re-Cert Due Date 09/05/25 - Untimed Charges OT Eval/Re-eval Minutes 65 -LC Total Minutes Untimed Charges Total Minutes 65 -LC Total Minutes 65 -LC User Amor (r) = Recorded By, (t) = Taken By, (c) = Cosigned By Initials Name Provider Type Marya Bailey OT Occupational Therapist Therapy Charges for Today Code Description Service Date Service Provider Modifiers Qty [id number] -OT EVAL MOD COMPLEXITY 5 08/26/2025 Marya Bailey, OT 1 Marya Bailey OT 08/26/2025 * [...] TOE AMPUTATION; Surgeon: Junior Zhao MD; Location: [facility] HYBRID OR; Service:Vascular; Laterality: Left; BELOW KNEE AMPUTATION Left 08/23/2025 Procedure: BELOW THE KNEE AMPUTATION LEFT; Surgeon: Junior Zhao MD; Location: [facility] HYBRID OR; Service: Vascular; Laterality: Left; FEMORAL POPLITEAL BYPASS Left 08/02/2025 Procedure: FEMORAL POPLITEAL BYPASS; Surgeon: Junior Zhao MD; Location: [facility] HYBRID OR; Service: Vascular; Laterality: Left; PACEMAKER IMPLANTATION PERIPHERAL ARTERIAL STENT GRAFT General Information Row Name 08/26/25 1451 Physical Therapy Time and Intention Document Type evaluation -LR Mode of Treatment physical therapy -LR Row Name 08/26/25 1456 General Information Patient Profile Reviewed yes -LR [...] (see comments) ramp -LR Row Name 08/26/25 145 Stairs Within Home, Primary Number of Stairs, [...] Garsia, PT Physical Therapist Mobility Row Name 08/26/251450 Bed Mobility Bed Mobility supine-sit -LR Scooting/Bridging Edgar (Bed Mobility) verbal cues;minimum assist (75% patient effort);2 person assist -LR Supine-Sit Edgar (Bed Mobility) verbal cues;minimum assist (75% patient effort);2 person assist -LR Assistive Device (Bed Mobility) head of bed elevated;bed rails;repositioning sheet;other (see comments) -LR Comment, (Bed Mobility) Verbal cues to move LEs towards EOB and to push up from bed to raise trunk into sitting and to scoot hips out to get feet on floor. Denied dizziness upon sitting up. -LR Row Name 08/26/251450 Transfers Comment, (Transfers) Verbal cues for correct placement of R foot prior to t/f. R knee blocked priorto t/f. Cues for correct hand placement with t/f. Despite blocking and cues, patient would not maintain R foot on floor and would pick it up repeatedly, therefore bearing no weight to assist with t/f. Attempted sit<- >stand x3 and patient would sheepskin pickler R foot each time. Little to no weight bear ing noted with t/f to chair. -LR Row Name 08/26/251450 Bed-Chair Transfer Bed-Chair Edgar (Transfers) verbal cues;dependent (less than 25% patient effort);2 person assist -LR Assistive Device (Bed-Chair Transfers) other (see comments) B UE support -LR Row Name 08/26/251450 Sit-Stand Transfer Sit-Stand Edgar (Transfers) verbal cues;dependent (less than 25% patient effort);2 person assist -LR Assistive Device (Sit-Stand Transfers) other (see comments) B UE support -LR Row Name 08/26/251450 Gait/Stairs (Locomotion) Edgar Level (Gait) unable to assess -LR Patient was able to Ambulate no, other medical factors prevent ambulation -LR Reason Patient was unable to Ambulate Non-Ambulatory at Baseline d/t NWB status of L LE -LR Edgar Level (Stairs) not tested -LR Comment, (Gait/Stairs) See above. -LR Row Name 08/26/251450 Mobility Extremity Weight-bearing Status left lower extremity -LR Left Lower Extremity (Weight-bearing Status) non weight-bearing (NWB) -LR User Amor (r) = Recorded By, (t) = Taken By, (c) = Cosigned By Initials Name Provider Type LR Marya Garsia, PT Physical Therapist Obj/Interventions Row Name 08/26/251450 Range of Motion Comprehensive General Range of [...] PT) sit to supine/supine to sit -LR Edgar Level/Cues Needed (Bed Mobility Goal 1, PT) contact guard required -LR Time Frame (Bed Mobility Goal 1, PT) snf goal (LTG);3 days -LR Progress/Outcomes (Bed Mobility Goal 1, PT) goal ongoing -LR Row Name 08/26/251450 Transfer Goal 1 (PT) Activity/Assistive Device (Transfer Goal 1, PT) rqx-jf-rvmhs/myiwv-rq-ngd;jbh-lx-lfdpd/rllta-ej-uny;sliding board;wheelchair transfer -LR Edgar Level/Cues Needed (Transfer Goal 1, PT) moderate assist (50-74% patient effort);other (see comments) x2 -LR Time Frame (Transfer Goal 1, PT) terminal computer operator goal (LTG);5 days -LR Progress/Outcome (Transfer Goal 1, PT) goal ongoing -LR Row Name 08/26/251450 Problem Specific Goal 1 (PT) Problem Specific Goal 1 (PT) independent with 150 feet of forward w/c propulsion -LR Time Frame (Problem Specific Goal 1, PT) long-term goal (LTG);5 days -LR Progress/Outcome (Problem Specific Goal 1, PT) goal ongoing -LR Row Name 08/26/251450 Therapy Assessment/Plan (PT) Planned Therapy Interventions (PT) balance training;bed mobility training;home exercise program;patient/family education;transfer training;strengthening;wheelchair management/propulsion training;motor coordination training;neuromuscular re-education -LR User Amor (r) = Recorded By, (t) = Taken By, (c) = Cosigned By Initials Name Provider Type Marya Griffith, PT Physical Therapist Clinical Impression Row Name 08/26/25 1451 Pain Pretreatment Pain Rating 0/10 - no pain -LR Posttreatment Pain Rating 0/10 - no pain -LR Row Name 08/26/25 1451 Plan of Care Review Plan of Care [...] SNF at d/c. -LR Row Name 08/26/25 1451 Therapy Assessment/Plan (PT) Rehab Potential (PT) fair -LR Criteria for Skilled Interventions Met (PT) yes;meets criteria;skilled treatment is necessary -LR Therapy Frequency (PT) daily -LR Row Name 08/26/25 1451 Vital Signs Pre Systolic BP Rehab 124 [...] Patient Position Sitting -LR Row Name 08/26/25 1451 Positioning and Restraints Pre-Treatment Position in bed -LR Post Treatment Position chair -LR In Chair notified nsg;reclined;sitting;call light within reach;encouraged to call for assist;exit alarm on;with family/caregiver;legs elevated;waffle cushion;on mechanical lift sling -LR User Amor (r) = Recorded By, (t) = Taken By, (c) = Cosigned By Initials Name Provider Type Marya Griffith, PT Physical Therapist Outcome Measures Row Name [...] (OT) - AM-PAC 6 Clicks Basic Mobility (PT)-LR User Amor (r) = Recorded By, (t) = Taken By, (c) = Cosigned By Initials Name Provider Type LR Marya Garsia, PT Physical Therapist Marya Bailey, OT Occupational Therapist Edita Castillo RN Registered Nurse Physical Therapy Education Title: PT OT WOODWORKING MACHINE FEEDER Therapies (In Progress) Topic: Physical Therapy (Done) [...] Initials Effective Dates Name Provider Type Discipline 11/19/22 - Marya Garsia, PT Physical Therapist [...] Description Service Date Service Provider Modifiers Qty [id number] HC-PT EVAL MOD COMPLEXITY 5 08/26/2025 Marya Garsia, PT 1 PT G-Codes Outcome Measure Options: AM-PAC 6 Clicks Daily Activity (OT) AM-PAC 6 Clicks Score (PT): 9 AM-PAC 6 Clicks Score (OT): 12 PT Discharge Summary Anticipated Discharge Disposition (PT): [facility] Marya Garsia, NATALIYA 08/26/2025 documented in this encounter Plan of [...] left lower extremity Toe necrosis Special Needs [facility] DESIREE POCT GLUCOSE FINGERSTICK Routine 08/23/2025 10:03 AM EST documented in this encounter Results * POC Glucose Once (08/28/2025 11:25 AM EST) Glucose 96 70 - 130 mg/dL 08/28/2025 11:41 AM EST [facility] Comment:Serial Number: [id number]: [id number] Blood 08/28/2025 11:2 5 AM EST 08/28/2025 11:41 AM EST Rowena Mancera MD POINT OF CARE TEST ORDERABLES Fi nal Result [facility]
[address] [place] [address], * (ABNORMAL) CBC (No Diff) (08/28/2025 8:25 AM EST) WBC 10.02 3.40 - 10.80 10*3/mm3 08/28/2025 9:33 AM EST [facility] RBC 2.86(L) 3.77 - 5.28 10*6/mm3 08/28/2025 9:33 AM EST [facility] Hemoglobin 7.8(L) 12.0 - 15.9 g/dL 08/28/2025 9:33 AM EST [facility] Hematocrit 25.5(L) 34.0 - 46.6 % 08/28/2025 9:33 AM EST [facility] MCV 89.2 79.0 - 97.0 fL 08/28/2025 9:33 AM EST [facility] MCH 27.3 26.6 - 33.0 pg 08/28/2025 9:33 AM EST [facility] MCHC 30.6(L) 31.5 - 35.7 g/dL 08/28/2025 9:33 AM [facility] RDW 13.6 12.3 - 15.4 % 08/28/2025 9:33 AM [facility] RDW-SD 43.8 37.0 - 54.0 fl 08/28/2025 9:33 AM [facility] MPV 9.3 6.0 - 12.0 fL 08/28/2025 9:33 AM [facility] Platelets 418 140 - 450 10*3/mm3 08/28/2025 9:33 AM [facility] Blood Venipuncture / Unknown 08/28/2025 8:25 AM EST 08/28/2025 9:21 AM EST Magali Jeffery PA-C LAB BLOOD ORDERABLES F inal Result [facility]
[address] [place] [address], * (ABNORMAL) POC Glucose Once (08/28/2025 7:21 AM EST) Glucose 146(H) 70 - 130 mg/dL 08/28/2025 7:23 AM EST [facility] Comment:Serial Number: [id number]: [id number] Blood 08/28/2025 7:21 AM EST 08/28/2025 7:23 AM EST us Rowena Mancera MD POINT OF CARE TEST ORDERABLES Fi nal Result Performing Organization Address City/[facility]/ZIP Co de Phone Number [facility]
[address] [place] [address], * POC Glucose Once (08/27/2025 7:56 PM EST) Glucose 129 70 - 130 mg/dL 08/27/2025 7:58 PM EST [facility] Comment:Serial Number: [id number]: [id number] Blood 08/27/2025 7:56 PM EST 08/27/2025 7:58 PM EST us Rowena Mancera MD POINT OF CARE TEST ORDERABLES Fi nal Result Performing Organization Address [facility] Co de Phone Number [facility]
[address] [place] [address], * POC Glucose Once (08/27/2025 4:44 PM EST) Glucose 97 70 - 130 mg/dL 08/27/2025 4:49 PM EST [facility] Comment:Serial Number: [id number]: [id number] Blood 08/27/2025 4:44 PM EST 08/27/2025 4:49 PM EST us Rowena Mancera MD POINT OF CARE TEST ORDERABLES Fi nal Result Performing Organization Address City/[facility]/ZIP Co de Phone Number [facility]
[address] [place] [address], * (ABNORMAL) Basic Metabolic Panel (08/27/2025 12:35 PM EST) Glucose 130(H) 65 - 99 mg/dL 08/27/2025 2:14 PM EST [facility] BUN 18.0 8.0 - 23.0 mg/dL 08/27/2025 2:14 PM [facility] Creatinine 0.41(L) 0.57 - 1.00 mg/dL 08/27/2025 2:14 PM EST [facility] Sodium 137 136 - 145 mmol/L 08/27/2025 2:14 PM EST [facility] Potassium 4.7 3.5 - 5.2 mmol/L 08/27/2025 2:14 PM EST [facility] Chloride 105 98 - 107 mmol/L 08/27/2025 2:14 PM EST [facility] CO2 24.1 22.0 - 29.0 mmol/L 08/27/2025 2:14 PM EST [facility] Calcium 7.8(L) 8.6 - 10.5 mg/dL 08/27/2025 2:14 PM [facility] BUN/Creatinine Ratio 43.9(H) 7.0 - 25.0 08/27/2025 2:14 PM [facility] Anion Gap 7.9 5.0 - 15.0 mmol/L 08/27/2025 2:14 PM [facility] eGFR 97.2 >60.0 mL/min/1.7 3 08/27/2025 2:14 PM [facility] Blood Venipuncture / Unknown 08/27/2025 12:35 PM EST 08/27/2025 1:22 PM EST [facility] - 08/27/2025 2:14 PM EST [...] PA-C LAB BLOOD ORDERABLES F inal Result [facility]
[address] [place] [address], * (ABNORMAL) CBC (No Diff) (08/27/2025 12:35 PM EST) WBC 10.04 3.40 - 10.80 10*3/mm3 08/27/2025 1:28 PM EST [facility] RBC 2.74(L) 3.77 - 5.28 10*6/mm3 08/27/2025 1:28 PM EST [facility] Hemoglobin 7.4(L) 12.0 - 15.9 g/dL 08/27/2025 1:28 PM EST [facility] Hematocrit 25.1(L) 34.0 - 46.6 % 08/27/2025 1:28 PM EST [facility] MCV 91.6 79.0 - 97.0 fL 08/27/2025 1:28 PM EST [facility] MCH 27.0 26.6 - 33.0 pg 08/27/2025 1:28 PM EST [facility] MCHC 29.5(L) 31.5 - 35.7 g/dL 08/27/2025 1:28 PM EST [facility] RDW 13.5 12.3 - 15.4 % 08/27/2025 1:28 PM EST [facility] RDW-SD 44.1 37.0 - 54.0 fl 08/27/2025 1:28 PM EST [facility] MPV 9.5 6.0 - 12.0 fL 08/27/2025 1:28 PM EST [facility] Platelets 404 140 - 450 10*3/mm3 08/27/2025 1:28 PM EST [facility] Blood Venipuncture / Unknown 08/27/2025 12:35 PM EST 08/27/2025 1:21 PM EST Magali Jeffery PA-C LAB BLOOD ORDERABLES F inal Result [facility]
[address] [place] [address], * POC Glucose Once (08/27/2025 11:28 AM EST) Glucose 104 70 - 130 mg/dL 08/27/2025 11:38 AM EST [facility] Comment:Serial Number: [id number]: [id number] Blood 08/27/2025 11:2 8 AM EST 08/27/2025 11:38 AM EST us Rowena Mancera MD POINT OF CARE TEST ORDERABLES Fi nal Result Performing Organization Address [facility] Co de Phone Number [facility]
[address] [place] [address], * POC Glucose Once (08/27/2025 6:58 AM EST) Glucose 99 70 - 130 mg/dL 08/27/2025 7:02 AM EST [facility] Comment:Serial Number: [id number]: [id number] Blood 08/27/2025 6:58 AM EST 08/27/2025 7:02 AM EST us Rowena Mancera MD POINT OF CARE TEST ORDERABLES Fi nal Result Performing Organization Address City/[facility] Co de Phone Number [facility]
[address] [place] [address], * POC Glucose Once (08/26/2025 7:18 PM EST) Glucose 118 70 - 130 mg/dL 08/26/2025 7:19 PM EST [facility] Comment:Serial Number: [id number]: [id number] Blood 08/26/2025 7:18 PM EST 08/26/2025 7:19 PM EST us Delbert Quesada DO POINT OF CARE TEST ORDERA BLES Final Result Performing Organization Address City/[facility]/ZIP Co de Phone Number [facility]
[address] [place] [address], * Potassium (08/26/2025 6:52 PM EST) Potassium 5.2 3.5 - 5.2 mmol/L 08/26/2025 7:20 PM EST [facility] Blood Venipuncture / Unknown 08/26/2025 6:52 PM EST 08/26/2025 7:00 PM EST us Delbert Quesada DO LAB BLOOD ORDERABLES Ely l Result Performing Organization Address [facility] Co de Phone Number [facility]
[address] [place] [address], * (ABNORMAL) POC Glucose Once (08/26/2025 4:27 PM EST) Glucose 239(H) 70 - 130 mg/dL 08/26/2025 4:29 PM EST [facility] Comment:Serial Number: [id number]: [id number] Blood 08/26/2025 4:27 PM EST 08/26/2025 4:29 PM EST us Delbert Quesada DO POINT OF CARE TEST ORDERA BLES Final Result Performing Organization Address City/[facility] Co de Phone Number [facility]
[address] [place] [address], * (ABNORMAL) POC Glucose Once (08/26/2025 11:37 AM EST) Glucose 142(H) 70 - 130 mg/dL 08/26/2025 11:40 AM EST [facility] Comment:Serial Number: [id number]: [id number] Blood 08/26/2025 11:3 7 AM EST 08/26/2025 11:40 AM EST Delbert Quesada DO POINT OF CARE TEST ORDERA BLES Final Result Performing Organization Address City/[facility]/ZIP Co de Phone Number [facility]
[address] [place] [address], * Phosphorus (08/26/2025 8:03 AM EST) Phosphorus 2.6 2.5 - 4.5 mg/dL 08/26/2025 8:59 AM EST [facility] Blood Venipuncture / Unknown 08/26/2025 8:03 AM EST 08/26/2025 8:37 AM EST Magali Jeffery PA-C LAB BLOOD ORDERABLES F inal Result Performing Organization Address City/[facility]/ZIP Co de Phone Number [facility]
[address] [place] [address], * (ABNORMAL) Basic Metabolic Panel (08/26/2025 8:03 AM EST) Glucose 112(H) 65 - 99 mg/dL 08/26/2025 8:59 AM EST [facility] BUN 6.6(L) 8.0 - 23.0 mg/dL 08/26/2025 8:59 AM EST [facility] Creatinine 0.34(L) 0.57 - 1.00 mg/dL 08/26/2025 8:59 AM EST [facility] Sodium 138 136 - 145 mmol/L 08/26/2025 8:59 AM EST [facility] Potassium 3.3(L) 3.5 - 5.2 mmol/L 08/26/2025 8:59 AM EST [facility] Chloride 102 98 - 107 mmol/L 08/26/2025 8:59 AM [facility] CO2 29.1(H) 22.0 - 29.0 mmol/L 08/26/2025 8:59 AM EST [facility] Calcium 7.8(L) 8.6 - 10.5 mg/dL 08/26/2025 8:59 AM EST [facility] BUN/Creatinine Ratio 19.4 7.0 - 25.0 08/26/2025 8:59 AM [facility] Anion Gap 6.9 5.0 - 15.0 mmol/L 08/26/2025 8:59 AM [facility] eGFR 101.6 >60.0 mL/min/1.7 3 08/26/2025 8:59 AM [facility] Blood Venipuncture / Unknown 08/26/2025 8:03 AM EST 08/26/2025 8:37 AM EST [facility] - 08/26/2025 8:59 AM EST [...] not include race as a factor us Magali Jeffery PA-C LAB BLOOD ORDERABLES F inal Result [facility]
[address] [place] [address], * (ABNORMAL) CBC (No Diff) (08/26/2025 8:03 AM EST) WBC 11.81(H) 3.40 - 10.80 10*3/mm3 08/26/2025 8:50 AM EST [facility] RBC 2.79(L) 3.77 - 5.28 10*6/mm3 08/26/2025 8:50 AM EST [facility] Hemoglobin 7.7(L) 12.0 - 15.9 g/dL 08/26/2025 8:50 AM EST [facility] Hematocrit 24.5(L) 34.0 - 46.6 % 08/26/2025 8:50 AM EST [facility] MCV 87.8 79.0 - 97.0 fL 08/26/2025 8:50 AM EST [facility] MCH 27.6 26.6 - 33.0 pg 08/26/2025 8:50 AM EST [facility] MCHC 31.4(L) 31.5 - 35.7 g/dL 08/26/2025 8:50 AM EST [facility] RDW 13.2 12.3 - 15.4 % 08/26/2025 8:50 AM [facility] RDW-SD 41.9 37.0 - 54.0 fl 08/26/2025 8:50 AM [facility] MPV 9.2 6.0 - 12.0 fL 08/26/2025 8:50 AM EST [facility] Platelets 376 140 - 450 10*3/mm3 08/26/2025 8:50 AM EST [facility] Blood Venipuncture / Unknown 08/26/2025 8:03 AM EST 08/26/2025 8:38 AM EST Magali Jeffery PA-C LAB BLOOD ORDERABLES F inal Result [facility]
[address] [place] [address], * Magnesium (08/26/2025 8:03 AM EST) Pathologist [facility] Magnesium 2.0 1.6 - 2.4 mg/dL 08/26/2025 9:05 AM EST [facility] Blood Venipuncture / Unknown 08/26/2025 8:03 AM EST 08/26/2025 8:37 AM EST Magali Jeffery PA-C LAB BLOOD ORDERABLES F inal Result [facility]
[address] [place] [address], * (ABNORMAL) Vitamin B12 (08/26/2025 8:03 AM EST) Pathologist [facility] Vitamin B-12 1,062(H) 211 - 946 pg/mL 08/26/2025 12:29 PM EST [facility] Blood Venipuncture / Unknown 08/26/2025 8:03 AM EST 08/26/2025 8:38 AM EST Narrative [facility] - 08/26/2025 12:29 PM EST Results may be falsely increased if patient taking Biotin. Magali Jeffery PA-C LAB BLOOD ORDERABLES F inal Result [facility]
[address] [place] [address], * Folate (08/26/2025 8:03 AM EST) Pathologist [facility] Folate 6.55 4.78 - 24.20 ng/mL 08/26/2025 12:29 PM EST [facility] Blood Venipuncture / Unknown 08/26/2025 8:03 AM EST 08/26/2025 8:38 AM EST Narrative [facility] - 08/26/2025 12:29 PM EST Results may be falsely increased if patient taking Biotin. Magali Jeffery PA-C LAB BLOOD ORDERABLES F inal Result [facility]
[address] [place] [address], * POC Glucose Once (08/26/2025 7:22 AM EST) Glucose 119 70 - 130 mg/dL 08/26/2025 7:25 AM EST [facility] Comment:Serial Number: [id number]: [id number] Blood 08/26/2025 7:22 AM EST 08/26/2025 7:25 AM EST Delbert Quesada DO POINT OF CARE TEST ORDERA BLES Final Result Performing Organization Address [facility] Co de Phone Number [facility]
[address] [place] [address], * (ABNORMAL) POC Glucose Once (08/25/2025 7:47 PM EST) Glucose 199(H) 70 - 130 mg/dL 08/25/2025 7:50 PM EST [facility] Comment:Serial Number: [id number]: [id number] Nova Comment 1 Notified Patients RN 08/25/2025 7:50 PM EST [facility] Blood 08/25/2025 7:47 PM EST 08/25/2025 7:50 PM EST Delbert Quesada DO POINT OF CARE TEST ORDERA BLES Final Result Performing Organization Address [facility] Co de Phone Number [facility]
[address] [place] [address], * (ABNORMAL) POC Glucose Once (08/25/2025 4:27 PM EST) Glucose 144(H) 70 - 130 mg/dL 08/25/2025 4:29 PM EST [facility] Comment:Serial Number: [id number]: [id number] Blood 08/25/2025 4:27 PM EST 08/25/2025 4:29 PM EST Delbert Quesada DO POINT OF CARE TEST ORDERA BLES Final Result Performing Organization Address City/[facility]/ZIP Co de Phone Number [facility]
[address] [place] [address], * (ABNORMAL) Reticulocytes (08/25/2025 12:20 PM EST) Reticulocyte % 2.11(H) 0.70 - 1.90 % 08/25/2025 12:46 PM EST [facility] Reticulocyte Absolute 0.0559 0.0200 - 0.1300 10*6/mm3 08/25/2025 12:46 PM EST [facility] Blood Venipuncture / Unknown 08/25/2025 12:20 PM EST 08/25/2025 12:43 PM EST Magali Jeffery PA-C LAB BLOOD ORDERABLES F inal Result Performing Organization Address City/[facility]/ZIP Co de Phone Number [facility]
[address] [place] [address], * POC Glucose Once (08/25/2025 12:06 PM EST) Glucose 127 70 - 130 mg/dL 08/25/2025 12:09 PM EST [facility] Comment:Serial Number: [id number]: [id number] Blood 08/25/2025 12:0 6 PM EST 08/25/2025 12:09 PM EST Delbert Quesada DO POINT OF CARE TEST ORDERA BLES Final Result Performing Organization Address [facility] de Phone Number [facility]
[address] [place] [address], * (ABNORMAL) POC Glucose Once (08/25/2025 7:28 AM EST) Glucose 138(H) 70 - 130 mg/dL 08/25/2025 7:30 AM EST [facility] Comment:Serial Number: [id number]: [id number] Blood 08/25/2025 7:28 AM EST 08/25/2025 7:30 AM EST Delbert Quesada DO POINT OF CARE TEST ORDERA BLES Final Result Performing Organization Address [facility] de Phone Number [facility]
[address] [place] [address], * (ABNORMAL) Magnesium (08/25/2025 5:28 AM EST) Magnesium 1.5(L) 1.6 - 2.4 mg/dL 08/25/2025 12:32 PM EST [facility] Blood Venipuncture / Unknown 08/25/2025 5:28 AM EST 08/25/2025 6:36 AM EST Magali Jeffery PA-C LAB BLOOD ORDERABLES F inal Result Performing Organization Address [facility] Co de Phone Number [facility]
[address] [place] [address], * (ABNORMAL) Iron Profile + Ferritin (08/25/2025 5:28 AM EST) Iron 11(L) 37 - 145 mcg/dL 08/25/2025 12:32 PM EST [facility] Iron Saturation (TSAT) 6(L) 20 - 50 % 08/25/2025 12:32 PM [facility] Transferrin 127(L) 200 - 360 mg/dL 08/25/2025 12:32 PM [facility] TIBC 189(L) 298 - 536 mcg/dL 08/25/2025 12:32 PM [facility] Ferritin 77.90 13.00 - 150.00 ng/mL 08/25/2025 12:32 PM [facility] Blood Venipuncture / Unknown 08/25/2025 5:28 AM EST 08/25/2025 6:36 AM EST [facility] - 08/25/2025 12:32 PM EST Results may be falsely decreased if patient taking Biotin. Magali Jeffery PA-C LAB BLOOD ORDERABLES F inal Result [facility]
[address] [place] [address], * (ABNORMAL) CBC (No Diff) (08/25/2025 5:28 AM EST) WBC 9.69 3.40 - 10.80 10*3/mm3 08/25/2025 6:46 AM [facility] RBC 2.70(L) 3.77 - 5.28 10*6/mm3 08/25/2025 6:46 AM [facility] Hemoglobin 7.5(L) 12.0 - 15.9 g/dL 08/25/2025 6:46 AM [facility] Hematocrit 23.6(L) 34.0 - 46.6 % 08/25/2025 6:46 AM [facility] MCV 87.4 79.0 - 97.0 fL 08/25/2025 6:46 AM [facility] MCH 27.8 26.6 - 33.0 pg 08/25/2025 6:46 AM [facility] MCHC 31.8 31.5 - 35.7 g/dL 08/25/2025 6:46 AM [facility] RDW 13.2 12.3 - 15.4 % 08/25/2025 6:46 AM EST [facility] RDW-SD 41.7 37.0 - 54.0 fl 08/25/2025 6:46 AM [facility] MPV 9.0 6.0 - 12.0 fL 08/25/2025 6:46 AM EST [facility] Platelets 367 140 - 450 10*3/mm3 08/25/2025 6:46 AM [facility] Blood Venipuncture / Unknown 08/25/2025 5:28 AM EST 08/25/2025 6:36 AM EST Delbert Quesada DO LAB BLOOD ORDERABLES Ely laquita Result [facility]
[address] [place] [address], * (ABNORMAL) Basic Metabolic Panel (08/25/2025 5:28 AM EST) Glucose 107(H) 65 - 99 mg/dL 08/25/2025 7:09 AM [facility] BUN 10.1 8.0 - 23.0 mg/dL 08/25/2025 7:09 AM [facility] Creatinine 0.33(L) 0.57 - 1.00 mg/dL 08/25/2025 7:09 AM [facility] Sodium 134(L) 136 - 145 mmol/L 08/25/2025 7:09 AM [facility] Potassium 3.7 3.5 - 5.2 mmol/L 08/25/2025 7:09 AM [facility] Chloride 100 98 - 107 mmol/L 08/25/2025 7:09 AM [facility] CO2 25.7 22.0 - 29.0 mmol/L 08/25/2025 7:09 AM [facility] Calcium 7.8(L) 8.6 - 10.5 mg/dL 08/25/2025 7:09 AM [facility] BUN/Creatinine Ratio 30.6(H) 7.0 - 25.0 08/25/2025 7:09 AM [facility] Anion Gap 8.3 5.0 - 15.0 mmol/L 08/25/2025 7:09 AM [facility] eGFR 102.4 >60.0 mL/min/1.7 3 08/25/2025 7:09 AM [facility] Blood Venipuncture / Unknown 08/25/2025 5:28 AM EST 08/25/2025 6:36 AM EST [facility] - 08/25/2025 7:09 AM EST [...] Delbert Quesada DO LAB BLOOD ORDERABLES Ely laquita Result [facility]
[address] [place] [address], * (ABNORMAL) POC Glucose Once (08/24/2025 7:55 PM EST) Glucose 161(H) 70 - 130 mg/dL 08/24/2025 7:57 PM [facility] Comment:Serial Number: [id number]: [id number] Wilda Comment 1 Notified Patients RN 08/24/2025 7:57 PM [facility] Blood 08/24/2025 7:55 PM EST 08/24/2025 7:57 PM EST Delbert Quesada DO POINT OF CARE TEST ORDERA BLES Final Result Performing Organization Address [facility] Co de Phone Number [facility]
[address] [place] [address], * POC Glucose Once (08/24/2025 4:28 PM EST) Glucose 100 70 - 130 mg/dL 08/24/2025 4:31 PM EST [facility] Comment:Serial Number: [id number]: [id number] Blood 08/24/2025 4:28 PM EST 08/24/2025 4:31 PM EST Delbert Quesada DO POINT OF CARE TEST ORDERA BLES Final Result Performing Organization Address [facility] de Phone Number [facility]
[address] [place] [address], * POC Glucose Once (08/24/2025 11:32 AM EST) Glucose 111 70 - 130 mg/dL 08/24/2025 11:34 AM EST [facility] Comment:Serial Number: [id number]: [id number] Blood 08/24/2025 11:3 2 AM EST 08/24/2025 11:34 AM EST Delbert Quesada DO POINT OF CARE TEST ORDERA BLES Final Result Performing Organization Address [facility] Co de Phone Number [facility]
[address] [place] [address], * POC Glucose Once (08/24/2025 7:36 AM EST) Glucose 94 70 - 130 mg/dL 08/24/2025 7:38 AM [facility] Comment:Serial Number: [id number]: [id number] Blood 08/24/2025 7:36 AM EST 08/24/2025 7:38 AM EST Delbert Quesada DO POINT OF CARE TEST ORDERA BLES Final Result [facility]
[address] [place] [address], * (ABNORMAL) CBC Auto Differential (08/24/2025 6:05 AM EST) WBC 11.45(H) 3.40 - 10.80 10*3/mm3 08/24/2025 7:29 AM [facility] RBC 2.88(L) 3.77 - 5.28 10*6/mm3 08/24/2025 7:29 AM [facility] Hemoglobin 8.1(L) 12.0 - 15.9 g/dL 08/24/2025 7:29 AM [facility] Hematocrit 26.0(L) 34.0 - 46.6 % 08/24/2025 7:29 AM [facility] MCV 90.3 79.0 - 97.0 fL 08/24/2025 7:29 AM [facility] MCH 28.1 26.6 - 33.0 pg 08/24/2025 7:29 AM [facility] MCHC 31.2(L) 31.5 - 35.7 g/dL 08/24/2025 7:29 AM [facility] RDW 13.2 12.3 - 15.4 % 08/24/2025 7:29 AM [facility] RDW-SD 43.7 37.0 - 54.0 fl 08/24/2025 7:29 AM [facility] MPV 9.2 6.0 - 12.0 fL 08/24/2025 7:29 AM [facility] Platelets 407 140 - 450 10*3/mm3 08/24/2025 7:29 AM [facility] Neutrophil % 68.4 42.7 - 76.0 % 08/24/2025 7:29 AM [facility] Lymphocyte % 17.0(L) 19.6 - 45.3 % 08/24/2025 7:29 AM [facility] Monocyte % 12.0 5.0 - 12.0 % 08/24/2025 7:29 AM [facility] Eosinophil % 1.7 0.3 - 6.2 % 08/24/2025 7:29 AM [facility] Basophil % 0.3 0.0 - 1.5 % 08/24/2025 7:29 AM [facility] Immature Grans % 0.6(H) 0.0 - 0.5 % 08/24/2025 7:29 AM [facility] Neutrophils, Absolute 7.83(H) 1.70 - 7.00 10*3/mm3 08/24/2025 7:29 AM [facility] Lymphocytes, Absolute 1.95 0.70 - 3.10 10*3/mm3 08/24/2025 7:29 AM [facility] Monocytes, Absolute 1.37(H) 0.10 - 0.90 10*3/mm3 08/24/2025 7:29 AM [facility] Eosinophils, Absolute 0.20 0.00 - 0.40 10*3/mm3 08/24/2025 7:29 AM [facility] Basophils, Absolute 0.03 0.00 - 0.20 10*3/mm3 08/24/2025 7:29 AM [facility] Immature Grans, Absolute 0.07(H) 0.00 - 0.05 10*3/mm3 08/24/2025 7:29 AM [facility] nRBC 0.0 0.0 - 0.2 /100 WBC 08/24/2025 7:29 AM [facility] Blood Venipuncture / Unknown 08/24/2025 6:05 AM EST 08/24/2025 6:58 AM EST us [facility] BLOOD ORDERABLES Final Res ult [facility]
[address] [place] [address], * (ABNORMAL) Basic Metabolic Panel (08/24/2025 6:05 AM EST) Glucose 81 65 - 99 mg/dL 08/24/2025 7:26 AM [facility] BUN 15.8 8.0 - 23.0 mg/dL 08/24/2025 7:26 AM [facility] Creatinine 0.40(L) 0.57 - 1.00 mg/dL 08/24/2025 7:26 AM [facility] Sodium 137 136 - 145 mmol/L 08/24/2025 7:26 AM [facility] Potassium 4.3 3.5 - 5.2 mmol/L 08/24/2025 7:26 AM [facility] Chloride 102 98 - 107 mmol/L 08/24/2025 7:26 AM [facility] CO2 24.8 22.0 - 29.0 mmol/L 08/24/2025 7:26 AM [facility] Calcium 8.1(L) 8.6 - 10.5 mg/dL 08/24/2025 7:26 AM [facility] BUN/Creatinine Ratio 39.5(H) 7.0 - 25.0 08/24/2025 7:26 AM [facility] Anion Gap 10.2 5.0 - 15.0 mmol/L 08/24/2025 7:26 AM [facility] eGFR 97.7 >60.0 mL/min/1.7 3 08/24/2025 7:26 AM [facility] Blood Venipuncture / Unknown 08/24/2025 6:05 AM EST 08/24/2025 6:57 AM EST Narrative [facility] - 08/24/2025 7:26 AM EST GFR [...] ORDERABLES Final Res ult Performing Organization Address City/[facility]/ZIP Co de Phone Number [facility]
[address] [place] [address], * POC Glucose Once (08/23/2025 8:10 PM EST) Glucose 126 70 - 130 mg/dL 08/23/2025 8:12 PM EST [facility] Comment:Serial Number: [id number]: [id number] Blood 08/23/2025 8:10 PM EST 08/23/2025 8:12 PM EST Neda Ocampo DO POINT OF CARE TEST ORDERABL ES Final Result Performing Organization Address City/[facility]/ZIP Co de Phone Number [facility]
[address] [place] [address], * POC Glucose Once (08/23/2025 2:42 PM EST) Glucose 123 70 - 130 mg/dL 08/23/2025 2:45 PM EST [facility] Comment:Serial Number: [id number]: [id number] Blood 08/23/2025 2:42 PM EST 08/23/2025 2:45 PM EST Junior Pavel FLYNN POINT OF CARE TEST ORDERABLES Final Result Performing Organization Address City/[facility]/ZIP Co de Phone Number [facility]
[address] [place] [address], * (ABNORMAL) POC Glucose Once (08/23/2025 2:20 PM EST) Glucose 51(L) 70 - 130 mg/dL 08/23/2025 2:23 PM EST [facility] Comment:Serial Number: [id number]: [id number] Blood 08/23/2025 2:20 PM EST 08/23/2025 2:23 PM EST Junior Pavel FLNYN POINT OF CARE TEST ORDERABLES Final Result Performing Organization Address [facility] Co de Phone Number [facility]
[address] [place] [address], * Tissue Pathology Exam (08/23/2025 11:30 AM EST) Case Report Surgical Pathology Report Case: [id number] Authorizing Provider: Junior Zhao MD Collected: 08/23/2025 11:30 AM Ordering Location: [facility] Received: 08/23/2025 01:01 PM OR Pathologist: Daniel Resendez MD Specimen: Knee, Left, LEFT BELOW THE KNEE AMPUTATION 08/27/2025 1:08 PM EST [facility] Clinical Information Critical limb ischemia of left lower extremity Toe necrosis 08/27/2025 1:08 PM EST [facility] Final Diagnosis LEFT BELOW THE KNEE AMPUTATION: Ulcerated and necrotic skin and subcutaneous tissue Underlying bone with osteonecrosis Negative for specific microorganisms Negative for dysplasia or malignancy Benign viable surgical resection margin 08/27/2025 1:08 PM EST [facility] at 1308 EST Gross Description 1. [...] site reveals dusky discoloration and possible softening. Healthcare Administrative Assistant sections are submitted as follows: 1A-en face proximal skin margin 1B-heel ulcer 1C-anterior and posterior tibial arteries, submitted following decalcification 1D-great toe amputation site with underlying bone, submitted following decalcification 1E-proximal marrow. LDP 08/27/2025 1:08 PM [facility] Microscopic Description The slides are reviewed and demonstrate histopathologic features supporting the above rendered diagnosis. 08/27/2025 1:08 PM [facility] Tissue Structure of left knee region / Unknown 08/23/2025 11:30 AM EST 08/23/2025 1:01 PM EST Junior Pavel FLYNN PATHOLOGY/CYTOLOGY ORDERABLES Final Result [facility]
[address] [phone] * POC Glucose Once (08/23/2025 10:03 AM EST) Glucose 82 70 - 130 mg/dL 08/23/2025 10:05 AM [facility] Comment:Serial Number: [id number]: [id number] Blood 08/23/2025 10:0 3 AM EST 08/23/2025 10:05 AM EST us Junior Pavel FLYNN POINT OF CARE TEST ORDERABLES Final Result [facility]
[address] [place] [address], documented in this encounter Visit Diagnoses Diagnosis [...] PRN, Shortness of Air, Wheezing, Starting on Tue08/24/25 at 0944, Include Respiratory Treatment Education apixaban [...] mcg, Oral, Daily Digoxin, First dose on Tue08/24/25 at 1200, Check and record heart rate. [...] 6 Hours PRN, Moderate Pain, Starting on Tue08/23/25 at 1540, Based on patient request - [...] PRN, Moderate Pain, Severe Pain, Starting on 08/26/25 at 0939, For 5 days, Based on [...] 3 Hours PRN, Severe Pain, Starting on 08/24/25 at 0914, For 48 hours, If given [...] mg/dL - 7 units & Call Provider ([facility]) Caution: Look alike/sound alike drug alert([facility]) Given 08/26/2025 5:56 PM EST 3 Units Left Lower Abdomen Given 08/25/2025 8:10 PM EST 2 Units Le ft Lower Abdomen Given 08/24/2025 8:44 PM EST 2 Units L eft Lower Abdomen lactated ringers infusion 9 mL/hr, [...] 7 out of 10, please notify the Ship Laborer Provider at [phone](messages go to beeper service). Thank you If Pt. Has a Hip Fx block(Fascia Iliacus), please remove Block Catheter prior to Discharge, Basal Rate: 1 mL/hr, Programmed Intermittent Bolus (PIB): 5 mL, PIB Lockout Interval: 120 min, SAFETY PROFESSIONAL Bolus: 5 mL, SAFETY PROFESSIONAL Lockout Interval: 30 min New Bag 08/23/2025 [...] III, RN) 0839 (Given - Provider: Natalie Martin, BRAVO)2027 (Given - Provider: Ha Toney III, BRAVO) 09 (Given - Provider: Niesha Kwok, BRAVO) budesonide-formoterol (SYMBICORT) 160-4.5 MCG/ACT inhaler 2 puff 2 puff, Inhalation, 2 Times Daily - RT, First dose on Tue08/23/25 at 2130, Include Respiratory Treatment Education (SP) Shake well. Rinse mouth after use, do not swallow water. Send aerosols to pharmacy in ziplock bag for proper disposal. 1044 (Given - Provider: William Burnett, DEPUTY DIRECTOR)1999 (Given - Provider: Raj Jensen RRT)2129 (Canceled Entry - Provider: Raj Jensen RRT) 1032 (Given - Provider: William Burnett, DEPUTY DIRECTOR)1927 (Given - Provider: aPko Childers, DEPUTY DIRECTOR)2129 (Canceled Entry - Provider: Pako Childers RRT) 08 (Given - Provider: Beau Freire RRT)0930 (Canceled Entry - Provider: Beau Freire, DEPUTY DIRECTOR) carvedilol (COREG) tablet 3.125 mg 3.125 mg, [...] Abnormal Vitals)1008 (Not Given - Provider: Niesha Kwok RN - Reason: Provider Held)1652 (Unheld by provider [...] parameters not met)1757 (Given - Provider: Edita Castillo RN) 0838 (Not Given - Provider: Natalie Martin RN - Reason: See Provider Order) clopidogrel (PLAVIX) tablet 75 mg 75 mg, Oral, Daily, First dose on Tue08/24/25 at 0900 1107 (Given - Provider: Edita Castillo RN) 0838 (Given - Provider: Natalie Martin, BRAVO) 0902 (Given - Provider: Niesha Kwok, BRAVO) digoxin (LANOXIN) tablet 125 mcg 125 mcg, Oral, Daily Digoxin, First dose on Tue08/24/25 at 1200, Check and record heart rate. 1234 (Given - Provider: Edita Castillo RN) 1207 (Given - Provider: Natalie Martin, BRAVO) 1147 (Given - Provider: Niesha Kwok, BRAVO) [...] Martin, BRAVO) 0904 (New Bag - Provider: Niesah Kwok, BRAVO) ferrous sulfate tablet 325 mg 325 mg, Oral, Every Other Day, First dose on Tue08/29/25 at 0900, Swallow whole. Do not crush, split, or chew. Take with food if GI upset occurs. folic acid (FOLVITE) tablet 1 mg 1 mg, Oral, Daily, First dose on Tue08/27/25 at 0900 0839 (Given - Provider: Natalie Martin RN) 09 (Given - Provider: Niesha Kwok RN) gabapentin (NEURONTIN) capsule 300 mg 300 [...] 2102 (Given - Provider: Ha Toney III, BRAVO) 0839 (Given - Provider: Natalie Martin RN)2027 (Given - Provider: Ha Toney III, RN) 09 (Given - Provider: Niesha Kwok RN) [...] Flush tube before and after administration (SHIRA) 5675 (Given - Provider: Ha Toney III, BRAVO) Insulin Lispro (humaLOG) injection 2-7 Units 2-7 [...] mg/dL - 7 units & Call Provider ([facility]) Caution: Look alike/sound alike drug alert([facility]) 0732 (Not Given - Provider: Natalie Martin RN - Reason: Order parameters not met)1143 (Not Given - Provider: Edita Castillo RN - Reason: Order parameters not met)1756 (Given - Provider: Edita Castillo, BRAVO)2115 (Not Given - Provider: Ha Toney III, [...] at 1000 0949 (Given - Provider: Niesha Kwok, BRAVO) potassium chloride (KLOR-CON M20) CR tablet 40 mEq (COMPLETED) 40 mEq, Oral, Every 4 Hours, First dose on 08/26/25 at 1015, For 2 doses, Do not crush or chew the capsules or tablets. The drug may not work as designed if the capsule or tablet is crushed or chewed. Swallow whole. Take with food. 110 (Given - Provider: Edita Castillo RN)1430 (Given - Provider: Edita Castillo, BRAVO) pravastatin (PRAVACHOL) tablet 40 mg 40 mg, Oral, Nightly, First dose on Tue08/23/25 at 2100, Avoid grapefruit juice. 2103 (Given - Provider: Ha Toney III, BRAVO) 2027 (Given - Provider: Ha Toney III, RN) QUEtiapine (SEROquel) tablet 12.5 mg 12.5 mg, Oral, Nightly, First dose (after last modification) on Tue08/25/25 at 2100, HOLD IF PATIENT ALREADY SLEEPING Caution: Look alike/sound alike drug alert 2103 (Given - Provider: Ha Toney III, BRAVO) 2027 (Given - Provider: Ha Toney III, [...] Castillo, BRAVO) 0839 (Given - Provider: Natalie Martin RN) 0902 (Given - Provider: Niesha Kwok, BRAVO) Continuous Medication Order 08/26/2025 08/27/2025 08/28/2025 ropivacaine (NAROPIN) 0.2 % infusion (INFUSYSTEM) Peripheral Nerve, Continuous, Starting on Tue08/23/25 at 0959, If pain greater than 7 out of 10, please notify the Ship Laborer Provider at [phone](messages go to beeper service). Thank you If Pt. Has a Hip Fx block(Fascia Iliacus), please remove Block Catheter prior to Discharge, Basal Rate: 1 mL/hr, Programmed Intermittent Bolus (PIB): 5 mL, PIB Lockout Interval: 120 min, SAFETY PROFESSIONAL Bolus: 5 mL, SAFETY PROFESSIONAL Lockout Interval: 30 min 1652 (Due: Order End ing - Provider: Automatic Discharge Provider - Comment: [Order ends at this time. Document the following action when infusion is complete: Stopped]) sodium chloride 0.9 % infusion () 125 mL/hr, Intravenous, Continuous, Starting on 08/26/25 at 1030, For 8 hours 1110 (New Bag - Provider: Edita Castillo RN)1909 (Due: Order Ending - Provider: Edita Castillo RN - Comment: [Order ends at this [...] PRN, Shortness of Air, Wheezing, Starting on Tue08/24/25 at 0944, Include Respiratory Treatment Education bisacodyl [...] BPA Driven Protocol Open Order & Select [facility] Electrolyte Replacement Protocol Algorithm to [...] for injection by adding 1 mL of academic support coordinator-supplied sterile diluent or sterile water for injection [...] BPA Driven Protocol Open Order & Select [facility] Electrolyte Replacement Protocol Algorithm to [...] BPA Driven Protocol Open Order & Select [facility] Electrolyte Replacement Protocol Algorithm to [...] BPA Driven Protocol Open Order & Select [facility] Electrolyte Replacement Protocol Algorithm to [...] documented as of this encounter Care Teams Ditch Repairer Relationship Specialty Start Date End Date Alexis Montanez MD [address] [facility] [address] [facility] [address] [place] [address] PCP - General Family Medicine 07/23/25 documented as of this encounter
--- OUTSIDE RECORDS SUMMARY | 2025-08-23 09:35 | XMS_ITS | Encounter Summary ---
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 Patient unable to answer 08/01/2025 [facility] - [...] daily living? Patient unable to answer 08/01/2025 [facility] Utilities Answer Date Recorded In the past 12 months has th e [employer], gas, oil, or water company threatened to [...] Patient unable to answer 08/26/2025 Preferred Language Barbadian 08/26/2025 PHQ-2 Answer Date Recorded Patient Health Questionnaire-2 Score 0 07/24/2025 Comments No Sex and Gender Information Value Date Recorded Sex Assigned at Not on file Legal Sex Female 4:32 PM EDT Gender Identity Not on file Sexual Orientation Not on file documented as of this encounter Functional Status * Question Answer Date of Assessment Author 1. Wish to be (Past 1 Month) No 08/23/2025 9:26 AM Ana Ta RN 2. Non-Specific Active Suici nilton Thoughts (Past 1 Month) No 08/23/2025 9:26 AM Angela Ta RN * Calculated C-SSRS Risk Score (Lifetime/Recent) Answer Date of Assessment Author No Risk Indicated 08/23/2025 9:26 AM Ana Bernal RN * [place] Suicide Severity Rating Scale (Screener/Recent Self-Report) Question Answer Date of Assessment Author 6. 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
--- OUTSIDE RECORDS SUMMARY | 2025-08-23 09:57 | XMS_ITS | Encounter Summary ---
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 Patient unable to answer 08/01/2025 [facility] - Occupational [...] daily living? Patient unable to answer 08/01/2025 [facility] Utilities Answer Date Recorded In the past 12 months has th [employer], gas, oil, or water company threatened to [...] Patient unable to answer 08/22/2025 Preferred Language Indonesian 08/22/2025 PHQ-2 Answer Date Recorded Patient Health Questionnaire-2 Score 0 07/24/2025 Comments No Sex and Gender Information Value Date Recorded Sex Assigned at Not on file Legal Sex Female 4:32 PM EDT Gender Identity Not on file Sexual Orientation Not on file documented as of this encounter Last Filed Vital Signs Vital Sign Reading Time Taken Comments Blood Pressure 187/82 08/23/2025 10:08 AM EST Pulse 75 08/23/2025 10:08 AM EST Temperature 36.1 C (97 F) 08/23/2025 10:08 AM EST Respiratory Rate 18 08/23/2025 10:08 AM EST Oxygen Saturation 94% 08/23/2025 10:08 AM EST Inhaled Oxygen Concentration - - [...] Author No Risk Indicated 08/23/2025 9:26 AM EST Ana Villalobos RN * Norton Suicide Severity Rating Scale (Screener/Recent Self-Report) Question Answer Date of Assessment Author 6. Suicidal Behavior (Lifetime) No 9:26 AM EST Ana Zarco RN documented as of this encounter Discharge Summaries * Magali Jeffery PA-C - 08/28/2025 9:33 AM EST Images from the original note were not included. [facility] DISCHARGE SUMMARY Patient Name: [...] ischemia w/ gangrenous toe. She returned to [facility] 08/23/25 for planned LT 1st TMA, 2nd [...] doses - will transition to PO at ID - B12 normal - Folate low-normal. Added PO supplement Recent urinary retention - Pepe catheter exchanged in ED on 08/23/25 - Pepe placed 2/2 urinary retention following last surgery; unclear if she had any follow up - Family deferred voiding trial this admission - Has OP appointment with [facility] Urology on 09/16/25 - Continue Flomax PAF HTN HLD CAD - Continue Plavix, Digoxin, and Pravastatin - BP running a little low. Hold Coreg at ID - Discussed with vascular surgery on 08/26 and resumed Vanessa DM2 - A1c 6.03% (07/24/25) Hypoactive delirium vs oversedation from medication Previous hx of hospital acquired delirium Likely MCI vs dementia - Sedating medications tapered - Restarted Seroquel 12.5mg HS (discharged on this during recent hospitalization) - Poor PO intake - added Boost supplements - Can refer to neurology at ID for formal cognitive eval if family desires. [...] 08/28/25 0825 08/27/25 1235 08/26/25 0803 08/25/25 0528 08/24/25 0605 08/22/25 0851 WBC 10.02 10.04 11.81* [...] request and post-op pain management Performed by COFFERDAM CONSTRUCTION SUPERVISOR/CAA: Roscoe Storm, COFFERDAM CONSTRUCTION SUPERVISOR Assisted by: Desiree Hankins RN Preanesthetic Checklist [...] of 1% Lidocaine. Using ultrasound-guidance, an 18-gauge Arista Poweriplex Ultra 360 Touhy needle was advanced in [...] known as: NARCAN Call 911. Don't prime. [place] in 1 nostril for overdose. Repeat in [...] Melissa Briceño APRN [facility] REGI REGI Jeffery PA-C 08/28/25 Time Spent on Discharge: I spent 40 minutes on this discharge activity which included: [id number] with the patient, reviewing the data in [...] Flow (Peripheral Vascular Disease): What to Know (Indonesian) * Surgery to Remove Part of a Leg (Leg Amputation): What to Expect (Indonesian) * Surgery to Remove Part of a Leg (Leg Amputation): What to Know After (Indonesian) * Wound Care After Stitches Phan or Tape Strips Are Removed: What to Know After (Indonesian) * Iron Capsules or Tablets (Supplement) (Indonesian) * Folic Acid Tablets (Indonesian) * Hydrocodone; Acetaminophen Capsules or Tablets (Indonesian) * Memantine Tablets (Indonesian) * Naloxone Nasal [place] (Indonesian) * Indwelling Urinary Catheter [facility] Care Adult (Indonesian) documented in this encounter Medications at Time [...] MG/0.1ML nasal spray Call 911. Don't prime. [place] in 1 nostril for overdose. Repeat in [...] HHC and agreeable to SN/PT/OT services with [facility]. Isolation Precautions: No active isolations START PATIENT REGISTRATION INFORMATION Order Information Order Signing Physician: Rowena Mancera MD Service Ordered RN?: Yes Service Ordered PT?: Yes Service Ordered OT?: Yes Service Ordered ST?: No Service Ordered DICTATING MACHINE TRANSCRIBER?: No Service Ordered CIVIL PREPAREDNESS COORDINATOR?: No Following Physician: Alexis Montanez MD Following Physician Overseeing Physician: Alexis Montanez MD (Required for Residents Only) Agreeable to Follow ? Yes Date/Time of Call 08/28/25 11:52 EST, Spoke with: orders in [facility], current patient, POC MD is agreeable Care Coordination Same Day SOC?: No Primary Care Physician: Alexis Montanez MD Primary Care Physician Primary Care Physician Address: [address] [place] [address] Visit Instructions: N/A Service Discharge Location Type: Home Service Facility Name: N/A Service Floor Facility: N/A Service Room No: N/A Demographics Patient Last Name: Sera Patient First Name: Hattie Language/Communication Barrier: none Service Address: [address] [place] [address] Service City: [place] Service State: [place] Service Zip: [address] Service Other Phone Numbers: Telephone Information: Emergency Contact: Extended Emergency Contact Information Primary Emergency Contact: LAKESHA DAVILA Address: [address] [place] [address] of [facility] Mobile Relation: Daughter Accounts Payable Supervisor needed? No Secondary Emergency Contact: ESTELA SANTOS Mobile Relation: Daughter Accounts Payable Supervisor needed? No Admission Information Admit Date: 08/23/2025 [...] PACC Summary Discharge Date: Pending Referral Source: [facility] Signed By: Rani Moser RN, 08/28/2025, 11:52 EST Date/Time: 08/28/25 11:52 EST End PACC Note * Magali Jeffery PA-C - 08/28/2025 9:04 AM EST Images from the original note were not included. [facility] PROGRESS NOTE Patient Name: [...] ischemia w/ gangrenous toe. She returned to [facility] 08/23/25 for planned LT 1st TMA, 2nd toe amp, and wound debridement. Upon arrival, the decision was made to proceed w/ BKA. 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 Zhao) - Nerve block in place - Due to sedation, reduced Dennison to 5mg Q4H PRN - Continue home [...] this admission - Has OP appointment with [facility] on 09/16/25 - Continue Flomax PAF [...] supplements - Can refer to neurology at [facility] for formal cognitive eval if family desires [...] AM-PAC 6 Clicks Score (PT): 9 (08/26/25 4511) CODE STATUS: Code Status and Medical Interventions: CPR (Attempt to Resuscitate); Full Support Ordered at: 08/23/25 0717 Code Status (Patient has no pulse and [...] Santiago CRNA - 08/28/2025 8:07 AM EST [facility] Acute pain service Inpatient Progress Note [...] from the original note were not included. [facility] PROGRESS NOTE Patient Name: [...] deficits Results Reviewed: LAB RESULTS: Lab 08/26/25 0808/25/2552708/24/2560408/22/25 0851 WBC 11.81* 9.69 11.45* 14.03* HEMOGLOBIN [...] -- -- -- 16.3* Lab 08/26/25 1852 08/26/2580208/25/2552708/24/2560408/22/25 0851 SODIUM -- 138 134* 137 140 [...] 0851 PROTIME 16.3* INR 1.23* Lab 08/26/25 0808/25/25527 IRON -- 11* IRON SATURATION (TSAT) -- [...] ischemia w/ gangrenous toe. She returned to [facility] 08/23/25 for planned LT 1st TMA, 2nd toe amp, and wound debridement. Upon arrival, the decision was made to proceed w/ BKA. 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 Zhao) - Nerve block in place - Dennison 5mg Q4H PRN, Gabapentin to home dose [...] supplements - Can refer to neurology at ID for formal cognitive eval if family desires [...] AM-PAC 6 Clicks Score (PT): 9 (08/26/25 5834) CODE STATUS: Code Status and Medical Interventions: CPR (Attempt to Resuscitate); Full Support Ordered at: 08/23/25 1819 Code Status (Patient has no pulse and [...] Rock CRNA - 08/27/2025 8:25 AM EST [facility] Acute pain service Inpatient Progress Note [...] from the original note were not included. [facility] PROGRESS NOTE Patient Name: [...] that she was in a hospital in [place], [place]. She did not know the month [...] ischemia w/ gangrenous toe. She returned to [facility] 08/23/25 for planned LT 1st TMA, 2nd toe amp, and wound debridement. Upon arrival, the decision was made to proceed w/ BKA. 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 Zhao) - Nerve block in place - Decrease Dennison to 5mg Q4H PRN and decrease Gabapentin [...] supplements - Can refer to neurology at ID for formal cognitive eval if family desires [...] to Resuscitate); Full Support Ordered at: 08/23/25 1819 Code Status (Patient has no pulse and [...] elderly white female; resting in bed HEENT: [place] conjunctivae, MMM Lungs: Normal respiratory effort Ext: motor intact; LEFT BKA dressing changed; LLE medial incision/phan Neuro: Follows simple commands Psych: Apropriate mood, baseline memory loss Labs: Lab Results (last 24 hours) Procedure Component Value Units Date/Time Folate [[id number]] (Normal) Collected: 08/26/25802 Specimen: Blood Updated: 08/26/25 1229 Folate 6.55 ng/mL Narrative: Results may be falsely increased if patient taking Biotin. Vitamin B12 [[id number]] (Abnormal) Collected: 08/26/25802 Specimen: Blood Updated: 08/26/25 1229 Vitamin B-12 1,062 pg/mL Narrative: Results may be falsely increased if patient taking Biotin. POC Glucose Once [[id number]] (Abnormal) Collected: 08/26/25 113 Specimen: Blood Updated: 08/26/25 1140 Glucose 142 mg/dL Comment: Serial Number: [id number]: [id number] Magnesium [[id number]] (Normal) Collected: 08/26/25802 Specimen: Blood Updated: 08/26/25 0905 Magnesium 2.0 mg/dL Basic Metabolic Panel [[id number]] (Abnormal) Collected: 08/26/25802 Specimen: Blood Updated: 08/26/25 08 Glucose 112 mg/dL BUN 6.6 mg/dL Creatinine [...] not include race as a factor Phosphorus [[id number]] (Normal) Collected: 08/26/25802 Specimen: Blood Updated: 08/26/25858 Phosphorus 2.6 mg/dL CBC (No Diff) [[id number]] (Abnormal) Collected: 08/26/25802 Specimen: Blood Updated: 08/26/25849 WBC 11.81 10*3/mm3 RBC 2.79 10*6/mm3 Hemoglobin 7.7 g/dL Hematocrit 24.5 % MCV 87.8 fL MCH 27.6 pg MCHC 31.4 g/dL RDW 13.2 % RDW-SD 41.9 fl MPV 9.2 fL Platelets 376 10*3/mm3 POC Glucose Once [[id number]] (Normal) Collected: 08/26/25721 Specimen: Blood Updated: 08/26/25724 Glucose 119 mg/dL Comment: Serial Number: [id number]: [id number] POC Glucose Once [[id number]] (Abnormal) Collected: 08/25/251946 Specimen: Blood Updated: 08/25/25 1950 Glucose 199 mg/dL Comment: Serial Number: [id number]: [id number] Nova Comment 1 Notified Patients RN POC Glucose Once [[id number]] (Abnormal) Collected: 08/25/251626 Specimen: Blood Updated: 08/25/25 1629 Glucose 144 mg/dL Comment: Serial Number: [id number]: [id number] Peripheral Block Roscoe Storm CRNA 08/23/2025 10:51 AM Peripheral Block Patient reassessed immediately prior to procedure Patient location during procedure: pre-op Reason for block: at surgeon's request and post-op pain management Performed by COFFERDAM CONSTRUCTION SUPERVISOR/CAA: Roscoe Storm CRNA Assisted by: Desiree Hankins [...] minimal resistance. Performed by: Roscoe Storm CRNA Peripheral Block Roscoe Storm CRNA 08/23/2025 10:50 [...] critical limb ischemia - recent angioplasty in [place] 06/18/25 - multiple stents from iliac down to popliteal and including ASSISTANT MANAGER AIRSIDE OPERATIONS - s/p Left femoral to below-knee popliteal [...] Roblero CRNA - 08/26/2025 8:41 AM EST [facility] pain service Inpatient Progress Note Patient [...] Patel MD - 08/25/2025 3:15 PM EST [facility] Acute pain service Inpatient Progress Note Patient Name: Hattie Santos : 1940 [facility] Pain Service Inpatient Progress Note: Analgesia:Good Pain Score:4/10 LOC: alert and awake Resp Status: room air Cardiac: VS stable Side Effects:None Catheter Site:clean, dry and dressing intact Cath type: peripheral nerve cath(InfuSystem) Infusion rate: Ext/Pop: Basal: 1ml/hr, PIB: 5ml q 2 h, PHOTOGRAPHERS' MODEL: 5 ml q 30 min Catheter Plan:Catheter to remain Insitu and Continue catheter infusion rate unchanged * Magali Jeffery PA-C - 08/25/2025 2:38 PM EST Images from the original note were not included. [facility] PROGRESS NOTE Patient Name: [...] 90.3 89.9 PROTIME -- -- 16.3* Lab 08/25/2528 08/24/25 0605 08/22/25 0851 SODIUM 134* 137 140 [...] ischemia w/ gangrenous toe. She returned to [facility] 08/23/25 for planned LT 1st TMA, 2nd toe amp, and wound debridement. Upon arrival, the decision was made to proceed w/ BKA. 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 Zhao) - Nerve block in place - Increase Dennison 10mg to Q4H PRN - Increase Gabapentin [...] supplements - Can refer to neurology at [facility] for formal cognitive eval if family desires Asthma - Continue Symbicort and prn nebs Expected Discharge Location and Transportation: home with family vs SNF Expected Discharge Expected Discharge Date: 08/28/2025; Expected Discharge Time: VTE Prophylaxis:Mechanical VTE prophylaxis orders are present. AM-PAC 6 Clicks Score (PT): 11 (08/25/25 3581) CODE STATUS: Code Status and Medical Interventions: CPR (Attempt to Resuscitate); Full Support Ordered at: 08/23/25 6709 Code Status (Patient has no pulse and [...] Zhao MD - 08/25/2025 9:54 AM EST [facility] Vascular Surgery Progress Note Patient Name: Hattie [...] Jr., MD - 08/24/2025 1:07 PM EST [facility] Acute pain service Inpatient Progress Note Patient Name: Hattie Santos : 1940 Acute Pain Service Inpatient Progress Note: Analgesia:Fair Pain Score:7/10 LOC: alert and awake Resp Status: room air Cardiac: VS stable Side Effects:None Catheter Site:clean, dry and dressing intact Cath type: peripheral nerve cath(InfuSystem) Infusion rate: Ext/Pop: Basal: 1ml/hr, PIB: 5ml q 2 h, PHOTOGRAPHERS' MODEL: 5 ml q 30 min Dosing/Volume: ropivacaine 0.2% Catheter Plan:Catheter to remain Insitu and Continue catheter infusion rate unchanged Comments: Pain is fairly well controlled. Having intermittent 7-8/10 pain. Will continue to follow. * Junior Zhao MD - 08/24/2025 12:17 PM EST [facility] Vascular Surgery Progress Note Patient Name: Hattie [...] from the original note were not included. [facility] PROGRESS NOTE Patient Name: [...] and fluent Results Reviewed: LAB RESULTS: Lab 08/24/2505 08/22/25 0851 WBC 11.45* 14.03* HEMOGLOBIN 8.1* [...] request and post-op pain management Performed by COFFERDAM CONSTRUCTION SUPERVISOR/CAA: Roscoe Storm, COFFERDAM CONSTRUCTION SUPERVISOR Assisted by: Desiree Hankins RN Preanesthetic Checklist [...] to Resuscitate); Full Support Ordered at: 08/23/25 1819 Code Status (Patient has no pulse and is not breathing): CPR (Attempt to Resuscitate) Medical Interventions (Patient has pulse or is breathing): Full Support Level Of Support Discussed With: Patient Next of Kin (If No Surrogate) Delbert Quesada DO 08/24/25 documented in this encounter H&P Notes * Ricky Garcia APRN - 08/23/2025 5:56 PM EST Images from the original note were not included. [facility] HISTORY AND PHYSICAL Patient [...] Zhao on 08/02 who initially presented to [facility] for scheduled LLE wound debridement and toe [...] TOE AMPUTATION; Surgeon: Junior Zhao MD; Location: [facility] OR; Service:Vascular; Laterality: Left; FEMORAL POPLITEAL BYPASS Left 08/02/2025 Procedure: FEMORAL POPLITEAL BYPASS; Surgeon: Junior Zhao MD; Location: [facility] OR; Service: Vascular; Laterality: Left; PACEMAKER [...] Peripheral Block Result Date: 08/23/2025 Roscoe Storm COFFERDAM CONSTRUCTION SUPERVISOR 08/23/2025 10:50 AM Peripheral Block Patient reassessed immediately prior to procedure Patient location during procedure: pre-op Reason for block: at surgeon's request and post-op pain management Performed by COFFERDAM CONSTRUCTION SUPERVISOR/CAA: Roscoe Storm, YENIFER Assisted by: Desiree Hankins [...] form the Sciatic Nerve. The insertion site wasprepped and draped in sterile fashion. Skin and [...] intravascular injection. Injection was completed with negative asp iration of blood and negative intravascular injection. Injection pressures were normal with minimalresistance. A 20-gauge Contiplex Echo catheter was placed [...] with minimal resistance. Performed by: Roscoe Storm, COFFERDAM CONSTRUCTION SUPERVISOR Assessment & Plan Assessment & Plan Critical [...] Zhao on 08/02 who initially presented to [facility] for scheduled LLE wound debridement and toe [...] sx -Nerve catheter in place -continue Gabapentin -Dennison PRN for pain -Management per vascular surgery [...] Ocampo APRN - 08/23/2025 10:11 AM EST [facility] Pre-op Full history and physical note [...] better. Daughter reports that cardiac interventionalist in [place] has been following her, and that she has had multiple revascularizations and stent placements. Daughter perry deutschrts that her provider told her that she was running out of options, but that she most likely would not be a candidate for amputation due to her cardiac history. Family reports that she has been following with a usability specialist and cardroom supervisor outpatient who remove the top layer of [...] resting in bed; family at bedside HEENT: [place] conjunctivae, MMM Lungs: Normal respiratory effort Ext: motor intact; left great toe ulcer with discoloration/eschar/surrounding erythema; +left femoral pulse; no palpable left pedals Skin: Exposed skin warm Neuro: Follows simple commands Psych: Apropriate mood ?baseline memory loss? Relevant Results: Imaging Results (Last 48 Hours) Procedure Component Value Units Date/Time CT Angiogram Lower Extremity Bilateral [[id number]] Collected: 07/23/25 2345 Updated: 07/24/25 0001 Narrative: [...] MD 07/23/2025 11:58 PM EDT Workstation ID: [id number] CT Lower Extremity Left Without Contrast [[id number]] Collected: 07/23/252000 Updated: 07/23/252009 Narrative: CT LOWER [...] DO 07/23/2025 8:07 PM EDT Workstation ID: [id number] XR Chest 1 View [[id number]] Collected: 07/23/251811 Updated: 07/23/251815 Narrative: XR CHEST [...] MD 07/23/2025 6:13 PM EDT Workstation ID: [id number] XR Foot 3+ View Left [[id number]] Collected: 07/23/251749 Updated: 07/23/251754 Narrative: XR FOOT [...] MD 07/23/2025 5:52 PM EDT Workstation ID: [id number] Lab Results (last 48 hours) Procedure Component Value Units Date/Time POC Glucose Once [[id number]] (Normal) Collected: 07/24/25 1130 Specimen: Blood Updated: 07/24/25 1133 Glucose 93 mg/dL Comment: Serial Number: [id number]: [id number] POC Glucose Q6H [[id number]] (Normal) Collected: 07/24/25752 Specimen: Blood Updated: 07/24/25754 Glucose 106 mg/dL Comment: Serial Number: [id number]: [id number] aPTT [[id number]] (Abnormal) Collected: 07/24/25444 Specimen: Blood Updated: 07/24/25616 PTT 59.2 seconds Narrative: PTT = The equivalent PTT values for the therapeutic range of heparin levels at 0.3 to 0.5 U/ml are 60 to 70 seconds. Hemoglobin A1c [[id number]] (Abnormal) Collected: 07/24/25444 Specimen: Blood Updated: 07/24/25544 Hemoglobin A1C 6.03 % Narrative: Hemoglobin A1C Ranges: Increased Risk for Diabetes 5.7% to 6.4% Diabetes >= 6.5% Diabetic Goal < 7.0% Comprehensive Metabolic Panel [[id number]] (Abnormal) Collected: 07/24/25444 Specimen: Blood Updated: 07/24/25524 [...] include race as a factor Digoxin Level [[id number]] (Normal) Collected: 07/24/25444 Specimen: Blood Updated: 07/24/25524 Digoxin 0.62 ng/mL Narrative: Results may be falsely increased if patient taking Biotin. Magnesium [[id number]] (Normal) Collected: 07/24/25444 Specimen: Blood Updated: 07/24/25524 Magnesium 1.7 mg/dL Phosphorus [[id number]] (Normal) Collected: 07/24/25444 Specimen: Blood Updated: 07/24/25524 Phosphorus 3.6 mg/dL Lipid Panel [[id number]] Collected: 07/24/25444 Specimen: Blood Updated: 07/24/25524 Total [...] NIH LDL-C calculation. High Sensitivity Troponin T [[id number]] (Abnormal) Collected: 07/24/25444 Specimen: Blood Updated: 07/24/25524 [...] due to an underlying chronic condition. CK [[id number]] (Normal) Collected: 07/24/25444 Specimen: Blood Updated: 07/24/25524 Creatine Kinase 61 U/L Lactic Acid, Plasma [[id number]] (Normal) Collected: 07/24/25444 Specimen: Blood Updated: 07/24/25516 Lactate 0.6 mmol/L Comment: Falsely depressed results may occur on samples drawn from patients receiving N-Acetylcysteine (NAC) or Metamizole. CBC Auto Differential [[id number]] (Abnormal) Collected: 07/24/25444 Specimen: Blood Updated: 07/24/25453 [...] 10*3/mm3 nRBC 0.0 /100 WBC Heparin Anti-Xa [[id number]] (Abnormal) Collected: 07/23/252199 Specimen: Blood from Arm, Left Updated: 07/23/25 2304 Heparin Anti-Xa (UFH) >1.10 IU/ml Protime-INR [[id number]] (Abnormal) Collected: 07/23/252199 Specimen: Blood from Arm, Left Updated: 07/23/25 2232 Protime 17.0 Seconds INR 1.30 aPTT [[id number]] (Abnormal) Collected: 07/23/252199 Specimen: Blood from Arm, Left Updated: 07/23/252231 PTT 38.1 seconds Narrative: PTT = The equivalent PTT values for the therapeutic range of heparin levels at 0.3 to 0.5 U/ml are 60 to 70 seconds. High Sensitivity Troponin T 1Hr [[id number]] (Abnormal) Collected: 07/23/251953 Specimen: Blood Updated: 07/23/252018 [...] condition. Blood Culture - Blood, Arm, Right [[id number]] Collected: 07/23/251734 Specimen: Blood from Arm, Right Updated: 07/23/251943 Blood Culture - Blood, Arm, Left [[id number]] Collected: 07/23/251744 Specimen: Blood from Arm, Left Updated: 07/23/251943 Comprehensive Metabolic Panel [[id number]] (Abnormal) Collected: 07/23/251731 Specimen: Blood Updated: 07/23/25 180 Glucose 124 mg/dL BUN 10.8 mg/dL Creatinine [...] as a factor High Sensitivity Troponin T [[id number]] (Abnormal) Collected: 07/23/251731 Specimen: Blood Updated: 07/23/251801 [...] an underlying chronic condition. Lactic Acid, Plasma [[id number]] (Normal) Collected: 07/23/251731 Specimen: Blood Updated: 07/23/25 1800 Lactate 1.2 mmol/L Comment: Falsely depressed results may occur on samples drawn from patients receiving N-Acetylcysteine (NAC) or Metamizole. CBC & Differential [[id number]] (Abnormal) Collected: 07/23/251731 Specimen: Blood Updated: 07/23/251743 Narrative: The following orders were created for panel order CBC & Differential. Procedure Abnormality Status --------- ------ CBC Auto Differential[[id number]] Abnormal Final result Please view results for these tests on the individual orders. CBC Auto Differential [[id number]] (Abnormal) Collected: 07/23/251731 Specimen: Blood Updated: 07/23/251743 [...] critical limb ischemia - recent angioplasty in [place] 06/18/25 - multiple stents from iliac down to popliteal and including ASSISTANT MANAGER AIRSIDE OPERATIONS - Diabetes mellitus type 2 with neuropathy [...] - will make her NPO after [place] 07/25/25 just in case they elect for [...] Admission Screen, and Pressure Injury Stg 2+ [facility] Clinical Nutrition Assessment Subjective Subjective Information 08/26 [...] TOE AMPUTATION; Surgeon: Junior Zhao MD; Location: [facility]BRID OR; Service:Vascular; Laterality: Left; FEMORAL POPLITEAL BYPASS Left 08/02/2025 Procedure: FEMORAL POPLITEAL BYPASS; Surgeon: Junior Zhao MD; Location: [facility]; Service: Vascular; Laterality: Left; PACEMAKER [...] 7 days Lab Units 08/26/25 0808/25/2552708/24/25 06 SODIUM mmol/L 138 134* 137 POTASSIUM mmol/L 3.3* 3.7 4.3 GLUCOSE mg/dL 112* 107* 81 BUN mg/dL 6.6* 10.1 15.8 CREATININE mg/dL 0.34* 0.33* 0.40* CALCIUM mg/dL 7.8* 7.8* 8.1* PHOSPHORUS mg/dL 2.6 -- -- MAGNESIUM mg/dL 2.0 1.5* -- Results from last 7 days Lab Units 08/26/2580208/25/2552708/24/25 06 PLATELETS 10*3/mm3 376 367 407 HEMOGLOBIN [...] Loss Loss of Muscle Mass Findings Severe [place] Severe - deep hollowing/scooping, lack of [...] SNF at discharge. Anticipated Discharge Disposition (OT): senior care facility * Marya Garsia, PT - 08/26/2025 [...] SNF at d/c. Anticipated Discharge Disposition (PT): senior care facility * David Dalton RN - 08/26/2025 [...] toincrease protein intake. Will reach out to travel registered nurse nicu to include Surekha. 2. For right heel [...] Foam Mattress a. Will order alternating pressure lpk-hqc-ikld specialty bed from [facility] Pressure Injury Prevention Protocol (initiate for a Taz Scale Score of <18): Most recent Taz Scale score: Sensory Perception: 3-->slightly limited Moisture: 4-->rarely moist Activity: 2-->chairfast Mobility: 3-->slightly limited Nutrition: 2-->probably inadequate Friction and Shear: 2-->potential problem Taz Score: 16 (08/25/25 1600) -Apply Allevyn foam dressing to sacrum/coccyx and heels. -Turn q 2 hr. using Lovelock Flowlock Posiitoner pillow (short dark blue). Elevate heels off bed with Lovelock Flowlock Positioner pillow (long dark blue) -Apply moisture barrier cream to bottom BID & PRN, if incontinent. Thank you for consulting the WOC Nurse. WOC Team will continue to follow. Please re consult if the wound(s) worsens or new issues arise. David Dalton RN, BSN, CCRN, CWOCN Wound, Ostomy and Continence (WOC) Department [facility] documented in this encounter OR Notes * Op Note - Junior Zhao MD - 08/23/2025 11:11 AM EST PROCEDURE DATE: 08/22/2025 PRE OP DIAGNOSIS: Pre-Op Diagnosis Codes: Left critical limb ischemia POST OP DIAGNOSIS: Post-op Diagnosis Same SURGEON(S) / VENUE MANAGER SURGEON: Junior Pavel MD PROCEDURES WITH LATERALITY: Left below-knee amputation Left tibial nerve free pedicle transfer Myodesis ANESTHESIA: General Blood loss: Minimal Specimen: Left [...] with this, they would like to use [facility] in [place] for DME. No other needs verbalized. Called [facility] [phone] who request supporting clinical documentation and order be faxed to them at [phone]. [facility] and [facility] JOLENE orders. Patient plan is to discharge home and resume [facility] today via car with family to transport. Selected Continued Care - Admitted Since 08/23/2025 Destination No services have been selected for the patient. Durable Medical Equipment Coordination complete. Service Provider Services Address Phone Fax Patient Preferred [facility] Durable Medical Equipment [address] [address] [phone] -- Dialysis/Infusion No services have been selected for the patient. Home Medical Care Coordination complete. Service Provider Services Address Phone Fax Patient Preferred [facility], [facility] Rehabilitation [address] [address] [phone] -- Therapy No services have been selected for the patient. Community & DME No services have been selected for the patient. Selected Continued Care - Prior Encounters Includes continued care and service providers with selected services from prior encounters from 05/25/2025 to 08/28/2025 Discharged on 08/07/2025 Admission date: 07/31/2025 - Discharge disposition: Home-Health Care [facility] Service Provider Services Address Phone Fax Patient Preferred Critical access hospital [address] [id number] [phone] -- Community Resources No active community resources. Final Discharge Disposition Code: 06 - home with home health care * Case Management/Social Work - Rani Pereira RN - 08/26/2025 3:22 PM EST Discharge Planning Assessment [facility] Patient Name: Hattie Santos Today's Date: 08/26/2025 Admit Date: 08/23/2025 Plan: ongoing Discharge Needs Assessment Row Name 08/26/25 1516 Living Environment People in Home child(dustin), adult Name(s) of People in Home son, jin Palmer will be staying while recovering Current Living Arrangements home Potentially Unsafe Housing Conditions none Primary Care Provided by self;child(dustin) Provides Primary Care For no one Family Caregiver if Needed child(dustin), adult;grandchild(dustin), adult Family Caregiver Names Estela Santos, Afua Peters Quality of Family Relationships involved Able to [...] Coordination/Progress ongoing Discharge Plan Row Name 08/26/25 7453 Plan Plan ongoing Patient/Family in Agreement with Plan yes Plan Comments Spoke with patient and daughter at bedside regarding discharge planning. CM has been contacted by [facility] who reports patient is current with them. Patient indicates having a Rolling Walker, Wheelchair, Shower Bench, Grab Bars in the bathroom, Nebulizer and a Blood Pressure machine. Patient indicates she has prescription coverage with medication being affordable except for Eliquis but they manage. Patient lives in a mobile home with her son, jin Palmer reports she will be staying with them [...] - home or self-care Row Name 08/26/25 5333 Plan Plan update Patient/Family in Agreement with Plan yes Plan Comments Spoke with patient and daughter at bedside regarding discharge plan and discussed potential for rehab needs. Daughter repoting that they will not want [place] for rehab and called her POA, to discuss. PT has arrived at bedside to discuss who has verbalized that if the patient wants to go home then they will take her home. CM will continue to follow. CM following. Patient discharge plan is ongoing. Final Discharge Disposition Code 03 - senior care facility (SNF) Continued Care and Services - Admitted Since 08/23/2025 No active coordination exists. Selected Continued Care - Prior Encounters Includes continued care and service providers with selected services from prior encounters from 05/25/2025 to 08/26/2025 Discharged on 08/07/2025 Admission date: 07/31/2025 - Discharge disposition: Home-Health [facility] Service Provider Services Address Phone Fax Patient Preferred [facility] [address] [place] [address] [phone] -- Expected Discharge Date and Time Expected Discharge Date Expected Discharge Time Aug 30, 2025 Demographic Summary Row Name 08/26/25 1514 General Information Admission Type inpatient Arrived From home Referral Source admission list Reason for Consult discharge planning Preferred Language Indonesian General Information Comments Alexis Montanez MD Contact Information Permission Granted to Share Info With sample case porterphoto lab manager Information Comments Lakesha Davila, daughter [phone] Estela Santos, daughter [phone] Afua Melton, Grandchild/POA [phone] Functional Status Row Name 08/26/25 1513 Employment/ Employment/ Comments [employer] Medicare Replacement Psychosocial No documentation. Abuse/Neglect No documentation. Legal No documentation. Substance Abuse No documentation. Patient Forms No documentation. Rani Pereira RN * Therapy Evaluation - Marya Bailey OT - 08/26/2025 2:57 PM EST Images from the original note were not included. Patient Name: Hattie Santso : 1940 Today's Date: 08/26/2025 Admit Date: [...] TOE AMPUTATION; Surgeon: Junior Zhao MD; Location: [facility] OR; Service:Vascular; Laterality: Left; BELOW KNEE AMPUTATION Left 08/23/2025 Procedure: BELOW THE KNEE AMPUTATION LEFT; Surgeon: Junior Zhao MD; Location: [facility] OR; Service: Vascular; Laterality: Left; FEMORAL POPLITEAL BYPASS Left 08/02/2025 Procedure: FEMORAL POPLITEAL BYPASS; Surgeon: Junior Zhao MD; Location: [facility]; Service: Vascular; Laterality: Left; PACEMAKER IMPLANTATION PERIPHERAL ARTERIAL STENT GRAFT General Information Row Name 08/26/25 1545 OT Time and Intention Document Type evaluation - Mode of Treatment occupational therapy - Row Name 08/26/25 1544 General Information Patient Profile Reviewed yes - Prior Level of Function -- Family providing 09/05 assist. Completing pivots to W/C -LC Existing Precautions/Restrictions fall;left;non-weight bearing;orthostatic hypotension L BKA. nervecatheter, pepe - Barriers to Rehab medically complex;previous functional deficit;cognitive status - Row Name 08/26/25 1544 Living Environment Current Living Arrangements home - People in Home child(dustin), adult - Row Name 08/26/25 1542 Home Main Entrance Number of Stairs, Main Entrance other (see comments) Ramp - Row Name 08/26/25 1542 Stairs Within Home, Primary Number of Stairs, Within Home, Primary none - Row Name 08/26/25 1546 Cognition Orientation Status (Cognition) oriented to;person;place - Row Name 08/26/25 7679 Safety Issues/Impairments Affecting Functional Mobility Safety Issues [...] Bed Mobility Bed Mobility scooting/bridging;supine-sit - Scooting/Bridging [place] (Bed Mobility) verbal cues;minimum assist (75% patient effort);2 person assist - Supine-Sit [place] (Bed Mobility) minimum assist (75% patient effort);verbal [...] Row Name 08/26/25 1549 Bed-Chair Transfer Bed-Chair [place] (Transfers) 2 person assist;verbal cues;dependent (less than 25% patient effort) - Assistive Device (Bed-Chair Transfers) other (see comments) B UE support - Row Name 08/26/25 1549 Sit-Stand Transfer Sit-Stand [place] (Transfers) dependent (less than 25% patient effort);2 person assist;verbal cues - Assistive Device (Sit-Stand Transfers) other (see comments) B UE support - Row Name 08/26/25 1549 Activities of Daily Living BADL Assessment/Intervention bathing;upper body dressing;lower body dressing - Row Name 08/26/25 1549 Mobility Extremity Weight-bearing Status left lower extremity - Left Lower Extremity (Weight-bearing Status) non weight-bearing (NWB) -[facility] Name 08/26/25 1549 Bathing Assessment/Intervention [place] Level (Bathing) lower body;perineal area;dependent (less than 25% patient effort) - Position (Bathing) supine;supported standing - Comment, (Bathing) Required clean up secondary to incontinence -[facility] 08/26/25 1549 Upper Body Dressing Assessment/Training [place] Level (Upper Body Dressing) don;doff;front opening garment;maximum assist (25% patienteffort) - Position (Upper Body Dressing) supported sitting -[facility] Name 08/26/25 1549 Lower Body Dressing Assessment/Training [place] Level (Lower Body Dressing) don;socks;dependent (less than 25% patient effort) - Position (Lower Body Dressing) sitting up in bed - User Amor (r) = Recorded By, (t) = Taken By, (c) = Cosigned By Initials Name Provider Type Marya Bailey OT Occupational Therapist Obj/Interventions [facility] 08/26/25 1554 Sensory Assessment (Somatosensory) Sensory Assessment (Somatosensory) UE sensation intact -[facility] 08/26/25 1554 Vision Assessment/Intervention Visual Impairment/Limitations WFL -[facility] 08/26/25 1554 Range of Motion Comprehensive General Range of Motion bilateral upper extremity ROM WFL [facility] 08/26/25 1554 Strength Comprehensive (MMT) General Manual Muscle Testing (MMT) Assessment upper extremity strength deficits identified - Comment, General Manual Muscle Testing (MMT) Assessment B UE grossly 4/5 -[facility] 08/26/25 1554 Balance Balance Assessment sitting static [...] Provider Type Marya Silva OT Occupational Therapist Goals/Plan Row Name 08/26/25 1552 Transfer Goal 1 (OT) Activity/Assistive Device (Transfer Goal 1, OT) nfd-wk-xhqvj/ckmsu-xz-ica;tcx-jr-siupi/wejzk-jt-njf;walker, rolling - [place] Level/Cues Needed (Transfer Goal 1, OT) maximum assist (25-49% patient effort) - Time Frame (Transfer Goal 1, OT) senior living goal (LTG);10 days -LC Progress/Outcome (Transfer Goal 1, OT) goal ongoing - Row Name 08/26/25 155 Dressing Goal 1 (OT) Activity/Device (Dressing Goal 1, OT) upper body dressing - [place]/Cues Needed (Dressing Goal 1, OT) moderate assist (50-74% patient effort) - Time Frame (Dressing Goal 1, OT) short term goal (STG);5 days - Progress/Outcome (Dressing Goal 1, OT) goal ongoing - Row Name 08/26/25 1552 Toileting Goal 1 (OT) Activity/Device (Toileting Goal 1, OT) adjust/manage clothing;perform perineal hygiene;commode, bedside without drop arms - [place] Level/Cues Needed (Toileting Goal 1, OT) maximum assist (25-49% patient effort) - Time Frame (Toileting Goal 1, OT) senior living goal (LTG);10 days - Progress/Outcome (Toileting Goal 1, OT) goal ongoing - Row Name 08/26/25 6994 Therapy Assessment/Plan (OT) Planned Therapy Interventions (OT) activity tolerance training;adaptive equipment training;BADL retraining;functional balance retraining;occupation/activity based interventions;patient/caregiver educa tion/training;strengthening exercise;transfer/mobility retraining;ROM/therapeutic exercise - User Amor (r) = Recorded By, (t) = Taken By, (c) = Cosigned By Initials Name Provider Type Marya Silva, BERNARD Occupational Therapist Clinical Impression Row Name 08/26/25 2530 Pain Assessment Pretreatment Pain Rating 0/10 - no pain - Posttreatment Pain Rating 0/10 - no pain - Row Name 08/26/25 1550 Plan of Care Review Plan of Care [...] of self -LC Therapy Frequency (OT) daily - Predicted Duration of Therapy Intervention (OT) 10 days - Row Name 08/26/25 946 Therapy Plan Review/Discharge Plan (OT) Anticipated Discharge Disposition (OT) senior care facility - Row Name 08/26/25 1556 Vital Signs Pre Systolic BP Rehab 124 -LC Pre Treatment Diastolic BP 67 -LC Intra Systolic BP Rehab 101 -LC Intra Treatment Diastolic BP 58 -LC Post Systolic BP Rehab 91 136/62 once reclined - Post Treatment Diastolic BP 59 -LC Pre Patient Position Supine -LC Intra Patient Position Sitting -LC Post Patient Position Sitting - Row Name 08/26/25 2425 Positioning and Restraints Pre-Treatment Position in bed -LC Post Treatment Position chair -LC In Chair notified nsg;reclined;call light within reach;encouraged to call for assist;exit alarm on;with family/caregiver;legs elevated;LLE elevated Special Coccyx pillow per family request - User Amor (r) = Recorded By, (t) = Taken By, (c) = Cosigned By Initials Name Provider Type Marya Silva, OT Occupational Therapist Outcome Measures Row Name 08/26/25 8534 How much help from another is currently [...] By Initials Name Provider Type Marya Bailey, BERNARD Occupational Therapist Edita Castillo RN Registered Nurse Occupational Therapy Education Title: PT OT DBA MANAGER Therapies (In Progress) Topic: Occupational Therapy (In Progress) Point: ADL training (Done) Learning Progress Summary Patient Acceptance, E, VU,NR by at 08/26/20251456 Point: Precautions (Done) Learning Progress Summary Patient Acceptance, E, VU,NR by at 08/26/20251456 Point: Body mechanics (Done) Learning Progress Summary Patient Acceptance, E, VU,NR by at 08/26/20251456 User Amor Initials Effective Dates Name Provider Type [facility] 04/01/21 - Marya Bailey, OT Occupational Therapist OT OT Recommendation and [...] -LC OT Goal Re-Cert Due Date 09/05/25 -LC Untimed Charges OT Eval/Re-eval Minutes 65 -LC Total Minutes Untimed Charges Total Minutes 65 -LC Total Minutes 65 -LC User Amor (r) = Recorded By, (t) = Taken By, (c) = Cosigned By Initials Name Provider Type Marya Bailey OT Occupational Therapist Therapy Charges for Today Code Description Service Date Service Provider Modifiers Qty [id number] HC-OT EVAL MOD COMPLEXITY 5 08/26/2025 Marya Bailey [...] TOE AMPUTATION; Surgeon: Junior Zhao MD; Location: [facility]; Service:Vascular; Laterality: Left; BELOW KNEE AMPUTATION Left 08/23/2025 Procedure: BELOW THE KNEE AMPUTATION LEFT; Surgeon: Junior Zhao MD; Location: [facility]; Service: Vascular; Laterality: Left; FEMORAL POPLITEAL BYPASS Left 08/02/2025 Procedure: FEMORAL POPLITEAL BYPASS; Surgeon: Junior Zhao MD; Location: [facility]; Service: Vascular; Laterality: Left; PACEMAKER [...] Bed Mobility Bed Mobility supine-sit -LR Scooting/Bridging [place] (Bed Mobility) verbal cues;minimum assist (75% patient effort);2 person assist -LR Supine-Sit [place] (Bed Mobility) verbal cues;minimum assist (75% patient [...] upon sitting up. -LR Row Name 08/26/25 742 Transfers Comment, (Transfers) Verbal cues for correct placement of R foot prior to t/f. R knee blocked priorto t/f. Cues for correct hand placement with t/f. Despite blocking and cues, patient would not maintain R foot on floor and would pick it up repeatedly, therefore bearing no weight to assist with t/f. 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 Little to no weight bear ing noted with t/f to chair. -LR Row Name 08/26/25 145 Bed-Chair Transfer Bed-Chair [place] (Transfers) verbal cues;dependent (less than 25% patient effort);2 person assist -LR Assistive Device (Bed-Chair Transfers) other (see comments) B UE support -LR Row Name 08/26/25 438 Sit-Stand Transfer Sit-Stand [place] (Transfers) verbal cues;dependent (less than 25% patient effort);2 person assist -LR Assistive Device (Sit-Stand Transfers) other (see comments) B UE support -LR Row Name 08/26/25 893 Gait/Stairs (Locomotion) [place] Level (Gait) unable to assess -LR Patient was able to Ambulate no, other medical factors prevent ambulation -LR Reason Patient was unable to Ambulate Non-Ambulatory at Baseline d/t NWB status of L LE -LR [place] Level (Stairs) not tested -LR Comment, (Gait/Stairs) See above. -LR Row Name 08/26/25 220 Mobility Extremity Weight-bearing Status left lower extremity -LR Left Lower Extremity (Weight-bearing Status) non weight-bearing (NWB) -LR User Amor (r) = Recorded By, (t) = Taken By, (c) = Cosigned By Initials Name Provider Type LR Marya Garsia, PT Physical Therapist Obj/Interventions Row Name 08/26/25 145 Range of Motion Comprehensive General Range of [...] PT) sit to supine/supine to sit -LR [place] Level/Cues Needed (Bed Mobility Goal 1, PT) contact guard required -LR Time Frame (Bed Mobility Goal 1, PT) senior living goal (LTG);3 days -LR Progress/Outcomes (Bed Mobility Goal 1, PT) goal ongoing -LR Row Name 08/26/251450 Transfer Goal 1 (PT) Activity/Assistive Device (Transfer Goal 1, PT) xpe-ki-knxjv/awabu-fx-qlr;wda-dh-pqbik/cfwej-kt-ffm;sliding board;wheelchair transfer -LR [place] Level/Cues Needed (Transfer Goal 1, PT) moderate assist (50-74% patient effort);other (see comments) x2 -LR Time Frame (Transfer Goal 1, PT) terminal superintendent goal (LTG);5 days -LR Progress/Outcome (Transfer Goal 1, PT) goal ongoing -LR Row Name 08/26/25 145 Problem Specific Goal 1 (PT) Problem Specific [...] Physical Therapist Clinical Impression Row Name 08/26/25 145 Pain Pretreatment Pain Rating 0/10 - no [...] LR Marya Garsia, PT Physical Therapist Marya Silva, OT Occupational Therapist Edita Castillo RN Registered Nurse Physical Therapy Education Title: PT OT DBA MANAGER Therapies (In Progress) Topic: Physical Therapy (Done) [...] Description Service Date Service Provider Modifiers Qty [id number] HC-PT EVAL MOD COMPLEXITY 5 08/26/2025 Marya Garsia, PT 1 PT G-Codes Outcome Measure Options: AM-PAC 6 Clicks Daily Activity (OT) AM-PAC 6 Clicks Score (PT): 9 AM-PAC 6 Clicks Score (OT): 12 PT Discharge Summary Anticipated Discharge Disposition (PT): senior care facility Marya Garsia, PT 08/26/2025 documented in this encounter Plan [...] left lower extremity Toe necrosis Special Needs COFFERDAM CONSTRUCTION SUPERVISOR DESIREE POCT GLUCOSE FINGERSTICK Routine 08/23/2025 10:03 AM EST documented in this encounter Results * POC Glucose Once (08/28/2025 11:25 AM EST) Glucose 96 70 - 130 mg/dL 08/28/2025 11:41 AM EST [facility] Comment:Serial Number: [id number]: [id number] Blood 08/28/2025 11:2 5 AM EST 08/28/2025 11:41 AM EST Rowena Mancera MD POINT OF CARE TEST ORDERABLES Fi nal Result [facility]
[address] [place] [address], * (ABNORMAL) CBC (No Diff) (08/28/2025 8:25 AM EST) WBC 10.02 3.40 - 10.80 10*3/mm3 08/28/2025 9:33 AM EST [facility] RBC 2.86(L) 3.77 - 5.28 10*6/mm3 08/28/2025 9:33 AM EST [facility] Hemoglobin 7.8(L) 12.0 - 15.9 g/dL 08/28/2025 9:33 AM EST [facility] Hematocrit 25.5(L) 34.0 - 46.6 % 08/28/2025 9:33 AM EST [facility] MCV 89.2 79.0 - 97.0 fL 08/28/2025 9:33 AM EST [facility] MCH 27.3 26.6 - 33.0 pg 08/28/2025 9:33 AM EST [facility] MCHC 30.6(L) 31.5 - 35.7 g/dL 08/28/2025 9:33 AM EST [facility] RDW 13.6 12.3 - 15.4 % 08/28/2025 9:33 AM EST [facility] RDW-SD 43.8 37.0 - 54.0 fl 08/28/2025 9:33 AM EST [facility] MPV 9.3 6.0 - 12.0 fL 08/28/2025 9:33 AM EST [facility] Platelets 418 140 - 450 10*3/mm3 08/28/2025 9:33 AM EST [facility] Blood Venipuncture / Unknown 08/28/2025 8:25 AM EST 08/28/2025 9:21 AM EST Magali Jeffery PA-C LAB BLOOD ORDERABLES F inal Result Performing Organization Address City/[facility] Co de Phone Number [facility]
[address] [place] [address], * (ABNORMAL) POC Glucose Once (08/28/2025 7:21 AM EST) Glucose 146(H) 70 - 130 mg/dL 08/28/2025 7:23 AM EST [facility] Comment:Serial Number: [id number]: [id number] Blood 08/28/2025 7:21 AM EST 08/28/2025 7:23 AM EST Rowena Mancera MD POINT OF CARE TEST ORDERABLES Fi nal Result Performing Organization Address [facility] Co de Phone Number [facility]
[address] [place] [address], * POC Glucose Once (08/27/2025 7:56 PM EST) Glucose 129 70 - 130 mg/dL 08/27/2025 7:58 PM EST [facility] Comment:Serial Number: [id number]: [id number] Blood 08/27/2025 7:56 PM EST 08/27/2025 7:58 PM EST Rowena Mancera MD POINT OF CARE TEST ORDERABLES Fi nal Result Performing Organization Address City/[facility]/ZIP Co de Phone Number [facility]
[address] [place] [address], * POC Glucose Once (08/27/2025 4:44 PM EST) Glucose 97 70 - 130 mg/dL 08/27/2025 4:49 PM EST [facility] Comment:Serial Number: [id number]: [id number] Blood 08/27/2025 4:44 PM EST 08/27/2025 4:49 PM EST Rowena Mancera MD POINT OF CARE TEST ORDERABLES Fi nal Result [facility]
[address] [place] [address], * (ABNORMAL) Basic Metabolic Panel (08/27/2025 12:35 PM EST) [facility] Glucose 130(H) 65 - 99 mg/dL 08/27/2025 2:14 PM EST [facility] BUN 18.0 8.0 - 23.0 mg/dL 08/27/2025 2:14 PM EST [facility] Creatinine 0.41(L) 0.57 - 1.00 mg/dL 08/27/2025 2:14 PM EST [facility] Sodium 137 136 - 145 mmol/L 08/27/2025 2:14 PM EST [facility] Potassium 4.7 3.5 - 5.2 mmol/L 08/27/2025 2:14 PM EST [facility] Chloride 105 98 - 107 mmol/L 08/27/2025 2:14 PM EST [facility] CO2 24.1 22.0 - 29.0 mmol/L 08/27/2025 2:14 PM EST [facility] Calcium 7.8(L) 8.6 - 10.5 mg/dL 08/27/2025 2:14 PM EST [facility] BUN/Creatinine Ratio 43.9(H) 7.0 - 25.0 08/27/2025 2:14 PM EST [facility] Anion Gap 7.9 5.0 - 15.0 mmol/L 08/27/2025 2:14 PM EST [facility] eGFR 97.2 >60.0 mL/min/1.7 3 08/27/2025 2:14 PM EST [facility] Blood Venipuncture / Unknown 08/27/2025 12:35 PM EST 08/27/2025 1:22 PM EST [facility] - 08/27/2025 2:14 PM EST [...] PA-C LAB BLOOD ORDERABLES F inal Result [facility]
[address] [place] [address], * (ABNORMAL) CBC (No Diff) (08/27/2025 12:35 PM EST) WBC 10.04 3.40 - 10.80 10*3/mm3 08/27/2025 1:28 PM EST [facility] RBC 2.74(L) 3.77 - 5.28 10*6/mm3 08/27/2025 1:28 PM EST [facility] Hemoglobin 7.4(L) 12.0 - 15.9 g/dL 08/27/2025 1:28 PM EST [facility] Hematocrit 25.1(L) 34.0 - 46.6 % 08/27/2025 1:28 PM EST [facility] MCV 91.6 79.0 - 97.0 fL 08/27/2025 1:28 PM EST [facility] MCH 27.0 26.6 - 33.0 pg 08/27/2025 1:28 PM EST [facility] MCHC 29.5(L) 31.5 - 35.7 g/dL 08/27/2025 1:28 PM EST [facility] RDW 13.5 12.3 - 15.4 % 08/27/2025 1:28 PM [facility] RDW-SD 44.1 37.0 - 54.0 fl 08/27/2025 1:28 PM [facility] MPV 9.5 6.0 - 12.0 fL 08/27/2025 1:28 PM [facility] Platelets 404 140 - 450 10*3/mm3 08/27/2025 1:28 PM EST [facility] Blood Venipuncture / Unknown 08/27/2025 12:35 PM EST 08/27/2025 1:21 PM EST Magali Jeffery PA-C LAB BLOOD ORDERABLES F inal Result Performing Organization Address City/[facility] Co de Phone Number [facility]
[address] [place] [address], * POC Glucose Once (08/27/2025 11:28 AM EST) Glucose 104 70 - 130 mg/dL 08/27/2025 11:38 AM [facility] Comment:Serial Number: [id number]: [id number] Blood 08/27/2025 11:2 8 AM EST 08/27/2025 11:38 AM EST Rowena Mancera MD POINT OF CARE TEST ORDERABLES Fi nal Result Performing Organization Address City/[facility]/ZIP Co de Phone Number [facility]
[address] [place] [address], * POC Glucose Once (08/27/2025 6:58 AM EST) Glucose 99 70 - 130 mg/dL 08/27/2025 7:02 AM EST [facility] Comment:Serial Number: [id number]: [id number] Blood 08/27/2025 6:58 AM EST 08/27/2025 7:02 AM EST Rowena Mancera MD POINT OF CARE TEST ORDERABLES Fi nal Result Performing Organization Address City/[facility]/ZIP Co de Phone Number [facility]
[address] [place] [address], * POC Glucose Once (08/26/2025 7:18 PM EST) Glucose 118 70 - 130 mg/dL 08/26/2025 7:19 PM EST [facility] Comment:Serial Number: [id number]: [id number] Blood 08/26/2025 7:18 PM EST 08/26/2025 7:19 PM EST Delbert Quesada DO POINT OF CARE TEST ORDERA BLES Final Result Performing Organization Address [facility]/ZIP Co de Phone Number [facility]
[address] [place] [address], * Potassium (08/26/2025 6:52 PM EST) Potassium 5.2 3.5 - 5.2 mmol/L 08/26/2025 7:20 PM EST [facility] Blood Venipuncture / Unknown 08/26/2025 6:52 PM EST 08/26/2025 7:00 PM EST Delbert Quesada DO LAB BLOOD ORDERABLES Ely l Result Performing Organization Address City/[facility]/ZIP Co de Phone Number [facility]
[address] [place] [address], * (ABNORMAL) POC Glucose Once (08/26/2025 4:27 PM EST) Glucose 239(H) 70 - 130 mg/dL 08/26/2025 4:29 PM EST [facility] Comment:Serial Number: [id number]: [id number] Blood 08/26/2025 4:27 PM EST 08/26/2025 4:29 PM EST Delbert Gandhis DO POINT OF CARE TEST ORDERA BLES Final Result Performing Organization Address City/[facility]/ZIP Co de Phone Number [facility]
[address] [place] [address], * (ABNORMAL) POC Glucose Once (08/26/2025 11:37 AM EST) Glucose 142(H) 70 - 130 mg/dL 08/26/2025 11:40 AM EST [facility] Comment:Serial Number: [id number]: [id number] Blood 08/26/2025 11:3 7 AM EST 08/26/2025 11:40 AM EST Delbert Josesha Quesada DO POINT OF CARE TEST ORDERA BLES Final Result Performing Organization Address [facility] de Phone Number [facility]
[address] [place] [address], * Phosphorus (08/26/2025 8:03 AM EST) Phosphorus 2.6 2.5 - 4.5 mg/dL 08/26/2025 8:59 AM EST [facility] Blood Venipuncture / Unknown 08/26/2025 8:03 AM EST 08/26/2025 8:37 AM EST Magali Jeffery PA-C LAB BLOOD ORDERABLES F inal Result Performing Organization Address City/[facility]/ZIP Co de Phone Number [facility]
[address] [place] [address], * (ABNORMAL) Basic Metabolic Panel (08/26/2025 8:03 AM EST) Glucose 112(H) 65 - 99 mg/dL 08/26/2025 8:59 AM [facility] BUN 6.6(L) 8.0 - 23.0 mg/dL 08/26/2025 8:59 AM EST [facility] Creatinine 0.34(L) 0.57 - 1.00 mg/dL 08/26/2025 8:59 AM EST [facility] Sodium 138 136 - 145 mmol/L 08/26/2025 8:59 AM [facility] Potassium 3.3(L) 3.5 - 5.2 mmol/L 08/26/2025 8:59 AM [facility] Chloride 102 98 - 107 mmol/L 08/26/2025 8:59 AM [facility] CO2 29.1(H) 22.0 - 29.0 mmol/L 08/26/2025 8:59 AM [facility] Calcium 7.8(L) 8.6 - 10.5 mg/dL 08/26/2025 8:59 AM [facility] BUN/Creatinine Ratio 19.4 7.0 - 25.0 08/26/2025 8:59 AM [facility] Anion Gap 6.9 5.0 - 15.0 mmol/L 08/26/2025 8:59 AM [facility] eGFR 101.6 >60.0 mL/min/1.7 3 08/26/2025 8:59 AM [facility] Blood Venipuncture / Unknown 08/26/2025 8:03 AM EST 08/26/2025 8:37 AM EST [facility] - 08/26/2025 8:59 AM EST [...] PA-C LAB BLOOD ORDERABLES F inal Result [facility]
[address] [place] [address], * (ABNORMAL) CBC (No Diff) (08/26/2025 8:03 AM EST) WBC 11.81(H) 3.40 - 10.80 10*3/mm3 08/26/2025 8:50 AM EST [facility] RBC 2.79(L) 3.77 - 5.28 10*6/mm3 08/26/2025 8:50 AM EST [facility] Hemoglobin 7.7(L) 12.0 - 15.9 g/dL 08/26/2025 8:50 AM EST [facility] Hematocrit 24.5(L) 34.0 - 46.6 % 08/26/2025 8:50 AM EST [facility] MCV 87.8 79.0 - 97.0 fL 08/26/2025 8:50 AM EST [facility] MCH 27.6 26.6 - 33.0 pg 08/26/2025 8:50 AM EST [facility] MCHC 31.4(L) 31.5 - 35.7 g/dL 08/26/2025 8:50 AM EST [facility] RDW 13.2 12.3 - 15.4 % 08/26/2025 8:50 AM EST [facility] RDW-SD 41.9 37.0 - 54.0 fl 08/26/2025 8:50 AM EST [facility] MPV 9.2 6.0 - 12.0 fL 08/26/2025 8:50 AM EST [facility] Platelets 376 140 - 450 10*3/mm3 08/26/2025 8:50 AM EST [facility] Blood Venipuncture / Unknown 08/26/2025 8:03 AM EST 08/26/2025 8:38 AM EST Magali Jeffery PA-C LAB BLOOD ORDERABLES F inal Result [facility]
[address] [place] [address], * Magnesium (08/26/2025 8:03 AM EST) Magnesium 2.0 1.6 - 2.4 mg/dL 08/26/2025 9:05 AM EST [facility] Blood Venipuncture / Unknown 08/26/2025 8:03 AM EST 08/26/2025 8:37 AM EST Magali Jeffery PA-C LAB BLOOD ORDERABLES F inal Result Performing Organization Address City/[facility] Co de Phone Number [facility]
[address] [place] [address], * (ABNORMAL) Vitamin B12 (08/26/2025 8:03 AM EST) Vitamin B-12 1,062(H) 211 - 946 pg/mL 08/26/2025 12:29 PM EST [facility] Blood Venipuncture / Unknown 08/26/2025 8:03 AM EST 08/26/2025 8:38 AM EST Narrative [facility] - 08/26/2025 12:29 PM EST Results may be falsely increased if patient taking Biotin. Magali Jeffery PA-C LAB BLOOD ORDERABLES F inal Result [facility]
[address] [place] [address], * Folate (08/26/2025 8:03 AM EST) Folate 6.55 4.78 - 24.20 ng/mL 08/26/2025 12:29 PM EST [facility] Blood Venipuncture / Unknown 08/26/2025 8:03 AM EST 08/26/2025 8:38 AM EST Narrative [facility] - 08/26/2025 12:29 PM EST Results may be falsely increased if patient taking Biotin. Magali Jeffery PA-C LAB BLOOD ORDERABLES F inal Result [facility]
[address] [place] [address], * POC Glucose Once (08/26/2025 7:22 AM EST) Glucose 119 70 - 130 mg/dL 08/26/2025 7:25 AM EST [facility] Comment:Serial Number: [id number]: [id number] Blood 08/26/2025 7:22 AM EST 08/26/2025 7:25 AM EST Delbert Quesada DO POINT OF CARE TEST ORDERA BLES Final Result [facility]
[address] [place] [address], * (ABNORMAL) POC Glucose Once (08/25/2025 7:47 PM EST) Glucose 199(H) 70 - 130 mg/dL 08/25/2025 7:50 PM EST [facility] Comment:Serial Number: [id number]: [id number] Nova Comment 1 Notified Patients RN 08/25/2025 7:50 PM EST [facility] Blood 08/25/2025 7:47 PM EST 08/25/2025 7:50 PM EST Delbert Quesada DO POINT OF CARE TEST ORDERA BLES Final Result [facility]
[address] [place] [address], * (ABNORMAL) POC Glucose Once (08/25/2025 4:27 PM EST) Glucose 144(H) 70 - 130 mg/dL 08/25/2025 4:29 PM EST [facility] Comment:Serial Number: [id number]: [id number] Blood 08/25/2025 4:27 PM EST 08/25/2025 4:29 PM EST Delbert Quesada DO POINT OF CARE TEST ORDERA BLES Final Result Performing Organization Address [facility]/ZIP Co de Phone Number [facility]
[address] [place] [address], * (ABNORMAL) Reticulocytes (08/25/2025 12:20 PM EST) Reticulocyte % 2.11(H) 0.70 - 1.90 % 08/25/2025 12:46 PM EST [facility] Reticulocyte Absolute 0.0559 0.0200 - 0.1300 10*6/mm3 08/25/2025 12:46 PM EST [facility] Blood Venipuncture / Unknown 08/25/2025 12:20 PM EST 08/25/2025 12:43 PM EST Magali Jeffery PA-C LAB BLOOD ORDERABLES F inal Result Performing Organization Address City/[facility]/ZIP Co de Phone Number [facility]
[address] [place] [address], * POC Glucose Once (08/25/2025 12:06 PM EST) Glucose 127 70 - 130 mg/dL 08/25/2025 12:09 PM EST [facility] Comment:Serial Number: [id number]: [id number] Blood 08/25/2025 12:0 6 PM EST 08/25/2025 12:09 PM EST Delbert Quesada DO POINT OF CARE TEST ORDERA BLES Final Result [facility]
[address] [place] [address], * (ABNORMAL) POC Glucose Once (08/25/2025 7:28 AM EST) Glucose 138(H) 70 - 130 mg/dL 08/25/2025 7:30 AM EST [facility] Comment:Serial Number: [id number]: [id number] Blood 08/25/2025 7:28 AM EST 08/25/2025 7:30 AM EST Delbert Quesada DO POINT OF CARE TEST ORDERA BLES Final Result [facility]
[address] [place] [address], * (ABNORMAL) Magnesium (08/25/2025 5:28 AM EST) Magnesium 1.5(L) 1.6 - 2.4 mg/dL 08/25/2025 12:32 PM EST [facility] Blood Venipuncture / Unknown 08/25/2025 5:28 AM EST 08/25/2025 6:36 AM EST Magali Jeffery PA-C LAB BLOOD ORDERABLES F inal Result Performing Organization Address [facility]/ZIP Co de Phone Number [facility]
[address] [place] [address], * (ABNORMAL) Iron Profile + Ferritin (08/25/2025 5:28 AM EST) Iron 11(L) 37 - 145 mcg/dL 08/25/2025 12:32 PM EST [facility] Iron Saturation (TSAT) 6(L) 20 - 50 % 08/25/2025 12:32 PM [facility] Transferrin 127(L) 200 - 360 mg/dL 08/25/2025 12:32 PM [facility] TIBC 189(L) 298 - 536 mcg/dL 08/25/2025 12:32 PM [facility] Ferritin 77.90 13.00 - 150.00 ng/mL 08/25/2025 12:32 PM [facility] Blood Venipuncture / Unknown 08/25/2025 5:28 AM EST 08/25/2025 6:36 AM EST [facility] - 08/25/2025 12:32 PM EST Results may be falsely decreased if patient taking Biotin. Magali Jeffery PA-C LAB BLOOD ORDERABLES F inal Result Performing Organization Address City/[facility]/ZIP Co de Phone Number [facility]
[address] [place] [address], * (ABNORMAL) CBC (No Diff) (08/25/2025 5:28 AM EST) WBC 9.69 3.40 - 10.80 10*3/mm3 08/25/2025 6:46 AM EST [facility] RBC 2.70(L) 3.77 - 5.28 10*6/mm3 08/25/2025 6:46 AM EST [facility] Hemoglobin 7.5(L) 12.0 - 15.9 g/dL 08/25/2025 6:46 AM [facility] Hematocrit 23.6(L) 34.0 - 46.6 % 08/25/2025 6:46 AM EST [facility] MCV 87.4 79.0 - 97.0 fL 08/25/2025 6:46 AM EST [facility] MCH 27.8 26.6 - 33.0 pg 08/25/2025 6:46 AM EST [facility] MCHC 31.8 31.5 - 35.7 g/dL 08/25/2025 6:46 AM [facility] RDW 13.2 12.3 - 15.4 % 08/25/2025 6:46 AM [facility] RDW-SD 41.7 37.0 - 54.0 fl 08/25/2025 6:46 AM [facility] MPV 9.0 6.0 - 12.0 fL 08/25/2025 6:46 AM [facility] Platelets 367 140 - 450 10*3/mm3 08/25/2025 6:46 AM [facility] Blood Venipuncture / Unknown 08/25/2025 5:28 AM EST 08/25/2025 6:36 AM EST us Delbert Quesada DO LAB BLOOD ORDERABLES Ely l Result [facility]
[address] [place] [address], * (ABNORMAL) Basic Metabolic Panel (08/25/2025 5:28 AM EST) Glucose 107(H) 65 - 99 mg/dL 08/25/2025 7:09 AM [facility] BUN 10.1 8.0 - 23.0 mg/dL 08/25/2025 7:09 AM [facility] Creatinine 0.33(L) 0.57 - 1.00 mg/dL 08/25/2025 7:09 AM [facility] Sodium 134(L) 136 - 145 mmol/L 08/25/2025 7:09 AM [facility] Potassium 3.7 3.5 - 5.2 mmol/L 08/25/2025 7:09 AM [facility] Chloride 100 98 - 107 mmol/L 08/25/2025 7:09 AM [facility] CO2 25.7 22.0 - 29.0 mmol/L 08/25/2025 7:09 AM [facility] Calcium 7.8(L) 8.6 - 10.5 mg/dL 08/25/2025 7:09 AM [facility] BUN/Creatinine Ratio 30.6(H) 7.0 - 25.0 08/25/2025 7:09 AM [facility] Anion Gap 8.3 5.0 - 15.0 mmol/L 08/25/2025 7:09 AM [facility] eGFR 102.4 >60.0 mL/min/1.7 3 08/25/2025 7:09 AM [facility] Blood Venipuncture / Unknown 08/25/2025 5:28 AM EST 08/25/2025 6:36 AM EST [facility] - 08/25/2025 7:09 AM EST [...] not include race as a factor us Delbert Quesada DO LAB BLOOD ORDERABLES Ely l Result [facility]
[address] [place] [address], * (ABNORMAL) POC Glucose Once (08/24/2025 7:55 PM EST) Glucose 161(H) 70 - 130 mg/dL 08/24/2025 7:57 PM EST [facility] Comment:Serial Number: [id number]: [id number] Nova Comment 1 Notified Patients RN 08/24/2025 7:57 PM EST [facility] Blood 08/24/2025 7:55 PM EST 08/24/2025 7:57 PM EST [facility] POINT OF CARE TEST ORDERA BLES Final Result Performing Organization Address City/[facility]/ZIP Co de Phone Number [facility]
[address] [place] [address], * POC Glucose Once (08/24/2025 4:28 PM EST) Glucose 100 70 - 130 mg/dL 08/24/2025 4:31 PM EST [facility] Comment:Serial Number: [id number]: [id number] Blood 08/24/2025 4:28 PM EST 08/24/2025 4:31 PM EST Delbert Jose Quesada POINT OF CARE TEST ORDERA BLES Final Result [facility]
[address] [place] [address], * POC Glucose Once (08/24/2025 11:32 AM EST) Glucose 111 70 - 130 mg/dL 08/24/2025 11:34 AM EST [facility] Comment:Serial Number: [id number]: [id number] Blood 08/24/2025 11:3 2 AM EST 08/24/2025 11:34 AM EST Delbert Jose [facility]Salt [facility] POINT OF CARE TEST ORDERA BLES Final Result Performing Organization Address City/[facility]/ZIP Co de Phone Number [facility]
[address] [place] [address], * POC Glucose Once (08/24/2025 7:36 AM EST) [facility] Glucose 94 70 - 130 mg/dL 08/24/2025 7:38 AM EST [facility] Comment:Serial Number: [id number]: [id number] Blood 08/24/2025 7:36 AM EST 08/24/2025 7:38 AM EST Delbert Jose Quesada POINT OF CARE TEST ORDERA BLES Final Result Performing Organization Address City/[facility] de Phone Number [facility] [place] [address], * (ABNORMAL) CBC Auto Differential (08/24/2025 6:05 AM EST) [facility] WBC 11.45(H) 3.40 - 10.80 10*3/mm3 08/24/2025 7:29 AM EST [facility] RBC 2.88(L) 3.77 - 5.28 10*6/mm3 08/24/2025 7:29 AM [facility] Hemoglobin 8.1(L) 12.0 - 15.9 g/dL 08/24/2025 7:29 AM [facility] Hematocrit 26.0(L) 34.0 - 46.6 % 08/24/2025 7:29 AM EST [facility] MCV 90.3 79.0 - 97.0 fL 08/24/2025 7:29 AM EST [facility] MCH 28.1 26.6 - 33.0 pg 08/24/2025 7:29 AM EST [facility] MCHC 31.2(L) 31.5 - 35.7 g/dL 08/24/2025 7:29 AM [facility] RDW 13.2 12.3 - 15.4 % 08/24/2025 7:29 AM [facility] RDW-SD 43.7 37.0 - 54.0 fl 08/24/2025 7:29 AM [facility] MPV 9.2 6.0 - 12.0 fL 08/24/2025 7:29 AM [facility] Platelets 407 140 - 450 10*3/mm3 08/24/2025 7:29 AM [facility] Neutrophil % 68.4 42.7 - 76.0 % 08/24/2025 7:29 AM [facility] Lymphocyte % 17.0(L) 19.6 - 45.3 % 08/24/2025 7:29 AM [facility] Monocyte % 12.0 5.0 - 12.0 % 08/24/2025 7:29 AM [facility] Eosinophil % 1.7 0.3 - 6.2 % 08/24/2025 7:29 AM [facility] Basophil % 0.3 0.0 - 1.5 % 08/24/2025 7:29 AM [facility] Immature Grans % 0.6(H) 0.0 - 0.5 % 08/24/2025 7:29 AM [facility] Neutrophils, Absolute 7.83(H) 1.70 - 7.00 10*3/mm3 08/24/2025 7:29 AM [facility] Lymphocytes, Absolute 1.95 0.70 - 3.10 10*3/mm3 08/24/2025 7:29 AM [facility] Monocytes, Absolute 1.37(H) 0.10 - 0.90 10*3/mm3 08/24/2025 7:29 AM [facility] Eosinophils, Absolute 0.20 0.00 - 0.40 10*3/mm3 08/24/2025 7:29 AM [facility] Basophils, Absolute 0.03 0.00 - 0.20 10*3/mm3 08/24/2025 7:29 AM EST [facility] Immature Grans, Absolute 0.07(H) 0.00 - 0.05 10*3/mm3 08/24/2025 7:29 AM EST [facility] nRBC 0.0 0.0 - 0.2 /100 WBC 08/24/2025 7:29 AM EST [facility] Blood Venipuncture / Unknown 08/24/2025 6:05 AM EST 08/24/2025 6:58 AM EST [facility] BLOOD ORDERABLES Final Res ult [facility]
[address] [place] [address], * (ABNORMAL) Basic Metabolic Panel (08/24/2025 6:05 AM EST) Glucose 81 65 - 99 mg/dL 08/24/2025 7:26 AM [facility] BUN 15.8 8.0 - 23.0 mg/dL 08/24/2025 7:26 AM [facility] Creatinine 0.40(L) 0.57 - 1.00 mg/dL 08/24/2025 7:26 AM [facility] Sodium 137 136 - 145 mmol/L 08/24/2025 7:26 AM [facility] Potassium 4.3 3.5 - 5.2 mmol/L 08/24/2025 7:26 AM [facility] Chloride 102 98 - 107 mmol/L 08/24/2025 7:26 AM [facility] CO2 24.8 22.0 - 29.0 mmol/L 08/24/2025 7:26 AM [facility] Calcium 8.1(L) 8.6 - 10.5 mg/dL 08/24/2025 7:26 AM [facility] BUN/Creatinine Ratio 39.5(H) 7.0 - 25.0 08/24/2025 7:26 AM EST [facility] Anion Gap 10.2 5.0 - 15.0 mmol/L 08/24/2025 7:26 AM EST [facility] eGFR 97.7 >60.0 mL/min/1.7 3 08/24/2025 7:26 AM EST [facility] Blood Venipuncture / Unknown 08/24/2025 6:05 AM EST 08/24/2025 6:57 AM EST Narrative [facility] [facility] - 08/24/2025 7:26 AM EST GFR [...] [facility] BLOOD ORDERABLES Final Res ult [facility]
[address] [place] [address], * POC Glucose Once (08/23/2025 8:10 PM EST) Glucose 126 70 - 130 mg/dL 08/23/2025 8:12 PM EST [facility] Comment:Serial Number: [id number]: [id number] Blood 08/23/2025 8:10 PM EST 08/23/2025 8:12 PM EST Neda Ocampo DO POINT OF CARE TEST ORDERABL ES Final Result Performing Organization Address City/[facility]/ZIP Co de Phone Number [facility]
[address] [place] [address], * POC Glucose Once (08/23/2025 2:42 PM EST) Glucose 123 70 - 130 mg/dL 08/23/2025 2:45 PM EST [facility] Comment:Serial Number: [id number]: [id number] Blood 08/23/2025 2:42 PM EST 08/23/2025 2:45 PM EST Junior Pavel [facility] POINT OF CARE TEST ORDERABLES Final Result Performing Organization Address City/[facility]/ZIP Co de Phone Number [facility]
[address] [place] [address], * (ABNORMAL) POC Glucose Once (08/23/2025 2:20 PM EST) Glucose 51(L) 70 - 130 mg/dL 08/23/2025 2:23 PM EST [facility] Comment:Serial Number: [id number]: [id number] Blood 08/23/2025 2:20 PM EST 08/23/2025 2:23 PM EST Junior Pavel [facility] POINT OF CARE TEST ORDERABLES Final Result Performing Organization Address City/[facility]/ZIP Co de Phone Number [facility]
[address] [place] [address], * Tissue Pathology Exam (08/23/2025 11:30 AM EST) Case Report Surgical Pathology Report Case: [id number] Authorizing Provider: Junior Zhao MD Collected: 08/23/2025 11:30 AM Ordering Location: [facility] Received: 08/23/2025 01:01 PM OR Pathologist: Daniel Resendez MD Specimen: Knee, Left, LEFT BELOW THE KNEE AMPUTATION 08/27/2025 1:08 PM EST [facility] Clinical Information Critical limb ischemia of left lower extremity Toe necrosis 08/27/2025 1:08 PM [facility] Final Diagnosis LEFT BELOW THE KNEE AMPUTATION: Ulcerated and necrotic skin and subcutaneous tissue Underlying bone with osteonecrosis Negative for specific microorganisms Negative for dysplasia or malignancy Benign viable surgical resection margin 08/27/2025 1:08 PM [facility] at 1308 EST Gross [...] site reveals dusky discoloration and possible softening. Cable Weaver sections are submitted as follows: 1A-en face proximal skin margin 1B-heel ulcer 1C-anterior and posterior tibial arteries, submitted following decalcification 1D-great toe amputation site with underlying bone, submitted following decalcification 1E-proximal marrow. LDP 08/27/2025 1:08 PM [facility] Microscopic Description The slides are reviewed and demonstrate histopathologic features supporting the above rendered diagnosis. 08/27/2025 1:08 PM [facility] Tissue Structure of left knee region / Unknown 08/23/2025 11:30 AM EST 08/23/2025 1:01 PM EST Marlon Pavel [facility] PATHOLOGY/CYTOLOGY ORDERABLES Final Result [facility]
[address] [place] [address], * POC Glucose Once (08/23/2025 10:03 AM EST) Glucose 82 70 - 130 mg/dL 08/23/2025 10:05 AM EST [facility] Comment:Serial Number: [id number]: [id number] Blood 08/23/2025 10:0 3 AM EST 08/23/2025 10:05 AM EST [facility] POINT OF CARE TEST ORDERABLES Final Result [facility]
[address] [place] [address], documented in this encounter Visit Diagnoses Diagnosis Critical limb ischemia of left lower extremity- Primary Toe necrosis PAD (peripheral artery disease) Unspecified peripheral vascular disease Type 2 diabetes mellitus with diabetic neuropathy, without long-term current use of insulin Claudication Unspecified peripheral vascular disease Critical limb ischemia of left lower extremity Toe necrosis documented in this encounter Admitting Diagnoses Diagnosis [...] Given 08/27/2025 5:34 PM EST 3.125 mg chlorhexidine (IRRISEPT) 0.05 % in sterile water As Needed, Starting on Tue08/23/25 at 1128 Given 08/23/2025 11:[address] 450 mL clopidogrel (PLAVIX) tablet 75 mg 75 mg, [...] Given 08/26/2025 12:34 PM EST 125 mcg ferric gluconate (FERRLECIT)125 MG in sodium chloride 0.9 % 100 mL IVPB 125 mg, Intravenous, at 100 mL/hr, Administer over 60 Minutes, Daily, First dose on Tue08/25/25 at 1615, For 5 doses, Not to exceed 2.1 mg/min, Please Select Indication for Intravenous Iron Therapy (Criteria can be seen in report to the left): Absolute Iron Deficiency New Bag 08/28/2025 9:04 AM EST 125 m g 100 mL/hr New Bag 08/27/2025 8:38 AM [...] Given 08/27/2025 8:39 AM EST 300 mg HYDROcodone-acetaminophen (NORCO) 5-325 MG per tablet 1 [...] = Pain Score of 7-10, CPOT 5-8 Insulin Lispro (humaLOG) injection 2-7 Units 2-7 [...] mg/dL - 7 units & Call Provider ([facility]) Caution: Look alike/sound alike drug alert([facility]) Given 08/26/2025 5:56 PM EST 3 Units Left Lower Abdomen Given 08/25/2025 8:10 PM EST 2 Units Le ft Lower Abdomen Given 08/24/2025 8:44 PM EST 2 Units Le ft Lower Abdomen Magnesium Low Dose Replacement - Follow Nurse / BPA Driven Protocol Open Order & Select S Electrolyte Replacement Protocol Algorithm to View Details memantine (NAMENDA) tablet 5 mg 5 mg, [...] BPA Driven Protocol Open Order & Select [facility] Electrolyte Replacement Protocol Algorithm to View Details pravastatin (PRAVACHOL) tablet 40 mg 40 mg, Oral, Nightly, First dose on Tue08/23/25 at 2100, Avoid grapefruit juice. Given 08/27/2025 8:28 PM EST 40 mg Given 08/26/2025 9:04 PM EST 40 mg Given 08/25/2025 8:10 PM EST 40 mg QUEtiapine (SEROquel) tablet 12.5 mg 12.5 mg, Oral, Nightly, First dose (after last modification) on 08/25/25 at 2100, HOLD IF PATIENT ALREADY SLEEPING Caution: Look alike/sound alike drug alert Given 08/27/2025 8:28 PM EST 12.5 mg Given 08/26/2025 9:04 PM EST 12.5 mg Given 08/25/2025 8:10 PM EST 12.5 mg ropivacaine (NAROPIN) 0.2 % infusion (INFUSYSTEM) Peripheral Nerve, Continuous, Starting on Tue08/23/25 at 0959, If pain greater than 7 out of 10, please notify the Sample Case Porter Provider at [phone](messages go to [email or web address] service). Thank you If Pt. Has a Hip Fx block(Fascia Iliacus), please remove Block Catheter prior to Discharge, Basal Rate: 1 mL/hr, Programmed Intermittent Bolus (PIB): 5 mL, PIB Lockout Interval: 120 min, PHOTOGRAPHERS' MODEL Bolus: 5 mL, PHOTOGRAPHERS' MODEL Lockout Interval: 30 min New Bag 08/23/2025 11:58 AM EST 1,000 mg sennosides-docusate (PERICOLACE) 8.6-50 MG per tablet 2 tablet 2 tablet, Oral, 2 Times Daily PRN, Constipation, Starting on Tue08/28/25 at 0730, HOLD MEDICATION IF PATIENT HAS HAD BOWEL MOVEMENT. Start bowel management regimen if patient has not had a bowel movement after 12 hours. tamsulosin (FLOMAX) 24 hr capsule 0.4 mg [...] Given 08/26/2025 11:07 AM EST 0.4 mg documented in this encounter Active [...] III, RN) 09 (Given - Provider: Niesha Kwok, BRAVO) budesonide-formoterol (SYMBICORT) 160-4.5 MCG/ACT inhaler 2 puff 2 puff, Inhalation, 2 Times Daily - RT, First dose on Tue08/23/25 at 2130, Include Respiratory Treatment Education (SP) Shake well. Rinse mouth after use, do not swallow water. Send aerosols to pharmacy in ziplock bag for proper disposal. 1044 (Given - Provider: William Burnett RRT)1999 (Given - Provider: Raj Jensen RRT)2129 (Canceled Entry - Provider: Raj Jensen RRT) 1032 (Given - Provider: William Burnett RRT)1928 (Given - Provider: Pako Cihlders RRT)2129 (Canceled Entry - Provider: Pako Childers RRT) [...] BRAVO) 0838 (Not Given - Provider: Natalie Martin [...] RN) 0838 (New Bag - Provider: Natalie Martin RN) 0904 (New Bag - Provider: Niesha wKok, BRAVO) ferrous sulfate tablet 325 mg 325 mg, Oral, Every Other Day, First dose on Sadaf 08/29/25 at 0900, Swallow whole. Do not crush, split, or chew. Take with food if GI upset occurs. folic acid (FOLVITE) tablet 1 mg 1 mg, Oral, Daily, First dose on Tue08/27/25 at 0900 0839 (Given - Provider: Natalie Martin RN) 901 (Given - Provider: Niesha Kwok, BRAVO) gabapentin [...] (Given - Provider: Ha Toney III, BRAVO) 901 (Given - Provider: Niesha Kwok, BRAVO) gabapentin (NEURONTIN) capsule 600 mg (CANCELED) 600 [...] Flush tube before and after administration (SHIRA) 8119 (Given - Provider: Ha Toney III, RN) [...] mg/dL - 7 units & Call Provider ([facility]) Caution: Look alike/sound alike drug alert([facility]) 0732 (Not Given - Provider: Natalie [...] Martin RN - Reason: Order parameters not met)2028 (Not Given - Provider: Ha Toney III, [...] with food. 1107 (Given - Provider: Edita Castillo, BRAVO)1430 (Given - Provider: Edita Castillo RN) pravastatin (PRAVACHOL) tablet 40 mg 40 mg, Oral, Nightly, First dose on Tue08/23/25 at 2100, Avoid grapefruit juice. 2103 (Given - Provider: Ha Toney III, RN) 2027 (Given - Provider: Ha Toney III, RN) QUEtiapine (SEROquel) tablet 12.5 mg 12.5 mg, Oral, Nightly, First dose (after last modification) on 08/25/25 at 2100, HOLD IF PATIENT ALREADY SLEEPING Caution: Look alike/sound alike drug alert 2103 (Given - Provider: Ha Toney III, BRAVO) 2027 (Given - Provider: Ha Toney III, RN) tamsulosin (FLOMAX) 24 hr capsule 0.4 mg 0.4 mg, Oral, Daily, First dose on 08/24/25 at 0900, Do not crush or chew the capsules or tablets. The drug may not work as designed if the capsule or tablet is crushed or chewed. Swallow whole. If patient unable to swallow whole, contact pharmacy for alternative. 1107 (Given - Provider: Edita Castillo RN) 0839 (Given - Provider: Natalie Martin RN) 0902 (Given - Provider: Niesha Kwok RN) Continuous Medication Order 08/26/2025 08/27/2025 08/28/2025 ropivacaine (NAROPIN) 0.2 % infusion (INFUSYSTEM) Peripheral Nerve, Continuous, Starting on Tue08/23/25 at 0959, If pain greater than 7 out of 10, please notify the Sample Case Porter Provider at [phone](messages go to [employer] service). Thank you If Pt. Has a Hip Fx block(Fascia Iliacus), please remove Block Catheter prior to Discharge, Basal Rate: 1 mL/hr, Programmed Intermittent Bolus (PIB): 5 mL, PIB Lockout Interval: 120 min, PHOTOGRAPHERS' MODEL Bolus: 5 mL, PHOTOGRAPHERS' MODEL Lockout Interval: 30 min 1652 (Due: Order [...] BPA Driven Protocol Open Order & Select [facility] Electrolyte Replacement Protocol Algorithm to [...] for injection by adding 1 mL of centrex radio operator-supplied sterile diluent or sterile water for injection [...] BPA Driven Protocol Open Order & Select [facility] Electrolyte Replacement Protocol Algorithm to [...] BPA Driven Protocol Open Order & Select [facility] Electrolyte Replacement Protocol Algorithm to [...] BPA Driven Protocol Open Order & Select [facility] Electrolyte Replacement Protocol Algorithm to [...] fever greater than 100.4 F, Starting on Tue08/24/25 at 0915, If given for fever, use [...] 2 Times Daily PRN, Constipation, Starting on 08/28/25 at 0730, HOLD MEDICATION IF PATIENT HAS HAD BOWEL MOVEMENT. Start bowel management regimen if patient has not had a bowel movement after 12 hours. And polyethylene glycol (MIRALAX) packet 17 gJump to med 17 g, Oral, Daily PRN, Constipation, Use if senna-docusate is ineffective, Starting on 08/28/25 at 0729, [...] documented as of this encounter Care Teams Stockfeed Miller Relationship Specialty Start Date End Date Alexis Montanez MD [address] [facility] [address] [facility] [address] [place] [address] PCP - General Family Medicine 07/23/25 documented as of this encounter
--- OUTSIDE RECORDS SUMMARY | 2025-08-23 10:00 | XMS_ITS | Encounter Summary ---
Author Organization [facility] Address [address] [place] [address] Care Team Providers Care Liquid Chlorine Operator Name Role Phone Alexis Montanez MD Primary Care Provider [phone] Reason for Visit * Auth/Cert Specialty Diagnoses / Procedures Referred By Gumaro ferrera Referred To Contact Diagnoses Critical limb ischemia of left lower extremity Toe necrosis Critical limb ischemia of left lower extremity [I70.222] Toe necrosis [I96] Procedures FIRST METATARSAL AND SECOND TOE AMPUTATION WITH FOOT DEBRIDEMENT Referral ID Status Reason Start Date Expiration Date Visits Re quested Visits Authorized [id number] 1 1 Encounter Details Date Type Department Care Team (Latest Contact Info) Description 08/23/2025 10:00 AM EST Anesthesia Event Converted [facility] ANESTHESIA [address] [place] [address] Social History Tobacco Use Types [...] and heating? Patient unable to answer 08/01/2025 [facility] - Occupational [...] daily living? Patient unable to answer 08/01/2025 [facility] Utilities Answer Date Recorded In the past 12 months has th e [employer], gas, oil, or water company threatened to [...] Patient unable to answer 08/26/2025 Preferred Language Hungarian 08/26/2025 PHQ-2 Answer Date Recorded Patient Health [...] 08/23/2025 9:26 AM Ana Bernal RN * [place] Suicide Severity Rating Scale (Screener/Recent Self-Report) Question Answer Date of Assessment Author 6. Suicidal Behavior (Lifetime) No 9:26 AM Ana Ta RN documented as of this encounter Plan of Treatment Not on file documented as of this encounter Procedures Procedure Name Priority Date/Time Associated Diagnosis Comments ANESTHESIA PERIPHERAL BLOCK Routine 08/23/2025 9:55 AM EST documented in this encounter Results * Peripheral Block (08/23/2025 9:55 AM EST) Narrative Roscoe Storm CRNA - 08/23/2025 9:55 AM EST Roscoe Storm CRNA 08/23/2025 10:51 AM Peripheral [...] minimal resistance. 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
--- OUTSIDE RECORDS SUMMARY | 2025-08-23 10:05 | XMS_ITS | Encounter Summary ---
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 Patient unable to answer 08/01/2025 [facility] - Occupational [...] living? Patient unable to answer 08/01/2025 [facility] Utilities Answer Date Recorded In the past 12 months has th e [employer], gas, oil, or water company threatened to [...] Patient unable to answer 08/26/2025 Preferred Language Maltese 08/26/2025 PHQ-2 Answer Date Recorded Patient Health [...] 08/23/2025 9:26 AM Ana Bernal RN * [place] Suicide Severity Rating Scale (Screener/Recent Self-Report) Question Answer Date of Assessment Author 6. Suicidal Behavior (Lifetime) No 9:26 AM Ana Ta RN documented as of this encounter Plan of Treatment Not on file documented as of this encounter Procedures Procedure Name Priority Date/Time Associated Diagnosis Comments ANESTHESIA PERIPHERAL BLOCK Routine 08/23/2025 9:56 AM EST documented in this encounter Results * BH AN PERIPHERAL BLOCK CATHETER (08/23/2025 9:56 AM EST) Narrative Roscoe Storm CRNA - 08/23/2025 9:56 AM EST Roscoe Storm CRNA 08/23/2025 10:50 AM Peripheral [...] and catheter connection. 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
--- OUTSIDE RECORDS SUMMARY | 2025-08-23 10:54 | XMS_ITS | Encounter Summary ---
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] Procedures FIRST METATARSAL AND SECOND TOE AMPUTATION WITH FOOT DEBRIDEMENT Referral ID Status Reason Start Date Expiration Date Visits Re quested Visits Authorized [id number] 1 1 Encounter Details Date Type Department Care Team (Late st Contact Info) Description 08/23/2025 10:54 AM EST Anesthesia Event [facility] OR [address] [place] [address] Venkata Gallagher MD [address] [place] [address] Desiree Rogers CRNA [address] [place], [place] [phone] Anesthesia Record Procedure Summary Procedure Name Responsible Anesthesiologist Anesthesia Start Time Anesthesia Stop Time BELOW THE KNEE AMPUTATION LEFT (Left) Venkata Gallagher MD 08/23/25 1054 08/23/25 1159 Events Date Time Event Comment 08/23/2025 0954 1052 AN Equip Check 1054 An Start The patient was reevaluated immediately before moderate or deep sedation use and before anesthesia induction. 1054 An Start Data 1100 An Induction 1101 Quick Note CO2 measured fr om open O2 source 1153 an stop data 1159 Handoff to RN The following has been [...] of report from the receiving PACU/ICU team 1159 An Stop Meds Name Total lidocaine PF 1% 1 % 50 mg propofol 10 MG/ML 265.5 mg bupivacaine PF (MARCAINE) 0.25 % injecti on 10 mL bupivacaine PF (MARCAINE) 0.25 % injecti on 20 mL fentaNYL citrate (PF) (SUBLIMAZE) inject ion 75 mcg dexamethasone sodium phosphate injection 2 mg vancomycin 750 mg in sodium chloride 0.9 % 250 mL IVPB-VTB 0 mg ceFAZolin 2000 mg IVPB in 100 mL NS (MBP ) 2,000 mg * Agents Name O2 N2O Air * Blood No blood administrations on file. Lines, Drains, and Airways Type Details Placement Removal Wound 08/02/25; 1447; Left ; anterior; thigh; Surgical; Closed Surgi 08/02/25 1447 by Jackson Barrios RN Wound 08/02/25; 1831; (fou nd upon admission to ICU); medial; coccyx; Pressure Inj 08/02/25 1831 by Sabra Woody, leach tank tender 08/23/25; N; Left; anterior; knee; Surgical 08/23/25 0000 by Azul Holley RN Wound 08/02/25; 1542; Left ; anterior; great toe; Surgical; Closed Surgi; Amputated; 08/23/25; 1738 08/02/25 1542 by Jackson Barrios RN 08/23/25 1738 by Raquel Godinez RN Wound 08/02/25; 1559; Left ; anterior; leg; Surgical; Closed Surgi; 08/24/25; 0343 08/02/25 1559 by Jackson Barrios RN 08/24/25 0343 by Olga Shannon RN Wound 08/02/25; 1643; Left ; distal; calf; Other (skin tear); 08/23/25; 1739 08/02/25 1643 by Fatmata Jeffries RN 08/23/25 173 by Raquel Godinez RN Urethral Catheter Placement Date: 08/07/25; Placement Time: 1200; Urine Returned: Yes; Removal Date: 08/23/25; Removal Time: 18308/07/25 1200 by Lucy Salgado RN 08/23/25 183 by Raquel Godinez RN Nerve Block 08/23/25; 0956 (leda cano via procedure documentation); Roscoe Storm CRNA; left; popliteal; SMary Lou Tarango RN; therapy completed; no complications; Nip intact; 08/28/25; 1315 08/23/25 0956 by Roscoe Storm CRNA 08/28/25 1315 by Zuly Tarango RN Peripheral IV Placement Date: 08/23/25; Placement Time: 1000; Catheter Size: 18 G; Orientation: Left, Posterior; Location: Hand; Site Prep: Alcohol; Local Anes: Injectable; Technique: Anatomical landmarks; Inserted by: bridgett; Insertion Attempts: 1; Patient Tolerance: Tolerated well; Removal Date: 08/28/25; Removal Time: 1200 08/23/25 1000 by Ana Zarco RN 08/28/25 1200 by Niesha Kwok RN documented in this encounter Social History Tobacco [...] and heating? Patient unable to answer 08/01/2025 [facility] - Occupational [...] daily living? Patient unable to answer 08/01/2025 [facility] Utilities Answer Date Recorded In the past 12 months has th [employer], gas, oil, or water [place] threatened to shut off services in your [...] Patient unable to answer 08/22/2025 Preferred Language Malagasy 08/22/2025 PHQ-2 Answer Date Recorded Patient Health [...] 08/23/2025 9:26 AM Ana Bernal RN * [place] Suicide Severity Rating Scale (Screener/Recent Self-Report) Question Answer Date of Assessment Author 6. 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 Post Anesthesia Care and Evaluation Patient location during evaluation: PACU Patient participation: complete - patient participated Level of consciousness: awake and alert Pain score: 0 Pain management: adequate Airway patency: patent Anesthetic complications: No anesthetic complications PONV Status: none Cardiovascular status: hemodynamically stable and acceptable Respiratory status: nonlabored ventilation, acceptable and nasal cannula Hydration status: acceptable * Anesthesia Procedure Notes - Roscoe Storm CRNA - 08/23/2025 9:56 AM EST Associated Order(s): Peripheral Block Peripheral Block Patient reassessed immediately prior to [...] catheter connection. Performed by: Roscoe Storm CRNA * Anesthesia Procedure Notes - Roscoe Storm CRNA - 08/23/2025 9:55 AM EST Associated Order(s): Peripheral Block Peripheral Block Patient reassessed immediately prior to [...] to the VMM is located. Local anesthetic (LA)5 ml deposited here. The needle continues its path lateral to the SFA at the level of the SaphenousNerve. The remainder of the LA was deposited at the 10-11 o'clock position of the SFA. This injection created a space between the Freddie and the SFA. Aspiration every 5 ml to prevent intravascular injection. Injection was completed with negative aspiration of blood and negative intravascular injection. Injection pressures were normal with minimal resistance. Performed by: Roscoe Storm CRNA * Anesthesia Preprocedure Evaluation - Venkata Gallagher MD - 08/23/2025 9:32 AM EST Anesthesia Evaluation Patient summary reviewed and Nursing notes reviewed NPO Solid Status: > 8 hours NPO Liquid Status: > 2 hours Airway Mallampati: I TM distance: >3 FB Neck ROM: full No difficulty expected Dental Pulmonary breath sounds clear to auscultation (+) asthma (MDI PRN), (-) shortness of breath, recent URI, sleep apnea, not a smoker Cardiovascular ECG reviewed Rhythm: regular Rate: normal (+) hypertension, CAD, cardiac stents (data def about 5 yrs ago) more than 12 months ago , PVD, hyperlipidemia (-) dysrhythmias, angina ROS comment: Sinus rhythm with premature atrial complexes Left axis deviation Left bundle branch block Neuro/Psych (+) poor historian. (-) seizures, CVA GI/Hepatic/Renal/Endo (+) diabetes mellitus (A1C 6.3) type 2 well controlled (-) no renal disease, no thyroid disorder Musculoskeletal (-) negative ROS (-) joint swelling Abdominal Substance History - negative use MEDICAL BILLING REPRESENTATIVE negative fisher gill net ROS Other ROS/Med Hx Other: HCT 34 lanoxin eliquis plavix Poor historian - Fempop Gouzd last month Anesthesia Plan ASA 3 general with block (Popliteal block ) intravenous induction Anesthetic plan, risks, benefits, and alternatives have been provided, discussed and informed consent has been obtained with: patient. Plan discussed with ACCOUNT COORDINATOR. CODE STATUS: documented in this encounter Plan of Treatment Not on file documented as of this encounter Procedures Procedure Name Priority Date/Time Associated Diagnosis Comments ANESTHESIA PERIPHERAL BLOCK Routine 08/23/2025 9:56 AM EST ANESTHESIA PERIPHERAL BLOCK Routine 08/23/2025 9:55 AM EST documented in this encounter Results * BH AN PERIPHERAL BLOCK CATHETER (08/23/2025 9:56 AM EST) Narrative Roscoe Storm CRNA - 08/23/2025 9:56 AM EST Roscoe Storm CRNA 08/23/2025 10:50 AM Peripheral Block Patient reassessed immediately prior to procedure Patient location during procedure: pre-op Reason for block: at surgeon's request and post-op pain management Performed by ACCOUNT COORDINATOR/CAA: Roscoe Storm, ACCOUNT COORDINATOR Assisted by: Desiree Hankins RN Preanesthetic Checklist [...] of 1% Lidocaine. Using ultrasound-guidance, an 18-gauge Mapplasiplex Ultra 360 Touhy needle was advanced in [...] catheter connection. Performed by: Roscoe Storm CRNA us Roscoe Storm CRNA ANESTHESIA ORDERABLES Edited Re sult - Final * Peripheral Block (08/23/2025 9:55 AM EST) [...] % injection Injection, One-Time Injection, Starting on Tue08/23/25 at 1022, For 1 dose Given 08/23/2025 10:22 AM EST 10 mL bupivacaine (PF) (MARCAINE) 0.25 % injection Injection, One-Time Injection, Starting on Tue08/23/25 at 1029, For 1 dose Given 08/23/2025 10:29 AM EST 20 mL ceFAZolin 2000 mg IVPB in 100 mL NS (MBP) 2,000 mg, Intravenous, Administer over 30 Minutes, Once, On Tue08/23/25 at 0930, For 1 dose, Caution: Look alike/sound alike drug alert, Indications: Surgical ProphylaxisIndications:Surgical Prophylaxis 08/23/2025 11:07 AM EST 2,000 mg dexAMETHasone sodium phosphate injection Injection, One-Time Injection, Starting on Tue08/23/25 at 1022, For 1 dose Given 08/23/2025 10:22 AM EST 2 mg fentaNYL citrate (PF) (SUBLIMAZE) injection Intravenous, One-Time Injection, Starting on Tue08/23/25 at 1022, For 1 dose Given 08/23/2025 11:17 AM EST 25 mcg Given 08/23/2025 11:00 AM EST 25 mcg Given 08/23/2025 10:22 AM EST 25 mcg lidocaine PF 1% (XYLOCAINE) injection Intravenous, As Needed, Starting on Tue08/23/25 at 1100 Given 08/23/2025 11:00 AM EST 50 mg propofol (DIPRIVAN) injection Intravenous, Continuous PRN, Starting on Tue08/23/25 at 1100 New 08/23/2025 11:00 AM EST 100 mcg/kg/min 27 mL/hr documented in this encounter Additional Health Concerns Infection Onset Date Last Indicated Resolved Time MRSA 07/24/2025 07/24/2025 documented as of this encounter Care Teams Registration Clerk Relationship Specialty Start Date End Date Alxeis Montanez MD [address] [place] [address] PCP - General Family Medicine 07/23/25 documented as of this encounter
[2025-09-16] VITALS (13 sets, daily range): BP systolic 147–183; BP diastolic 63–80; PULSE 86–105; RESP 23; TEMP 37.2; O2SAT 96–99; BMI 19.8
--- NOTE | 2025-09-16 20:48 | CT_ITS ---
PROCEDURE INFORMATION: Exam: CT Abdomen And Pelvis With Contrast Exam date and time: 09/16/2025 9:35 PM Age: 85 years old Clinical indication: Other: Lower abdominal pain, constipation, obstruction? TECHNIQUE: Imaging protocol: Computed tomography of the abdomen and pelvis with contrast. Radiation optimization: All CT scans at this facility use at least one of these dose optimization techniques: automated exposure control; mA and/or kV adjustment per patient size (includes targeted exams where dose is matched to clinical indication); or iterative reconstruction. Contrast material: ISOVUE; Contrast volume: 75 ml; Contrast route: IV; COMPARISON: CT ANGIO ABDOMEN/FEMORAL 06/27/2025 10:40 AM FINDINGS: Tubes, catheters and devices: None noted. Lungs: Lung bases appear clear. Heart: No significant coronary calcifications. No cardiomegaly. No significant pericardial effusion. Liver: Normal. No mass. Gallbladder and biliary ducts: Normal. No calcified stones. No ductal dilation. Pancreas: Normal. No ductal dilation. Spleen: Normal. No splenomegaly. Adrenal glands: Normal. No mass. Kidneys and ureters: Normal. No hydronephrosis. Stomach and bowel: Large amount of stool in the rectum. Perirectal inflammatory changes. Consider stercoral colitis. Consider fecal impaction. Appendix: No evidence of appendicitis. Intraperitoneal space: Unremarkable. No free air. No significant fluid collection. Retroperitoneal space: No significant retroperitoneal inflammatory changes are noted. Vasculature: Unremarkable. No abdominal aortic aneurysm. Lymph nodes: Unremarkable. No enlarged lymph nodes. Urinary bladder: Unremarkable as visualized. Reproductive: Unremarkable as visualized. Bones/joints: Unremarkable. No acute fracture. Soft tissues: Unremarkable. IMPRESSION: 1. Large amount of stool in the rectum. Consider fecal impaction. 2. Perirectal inflammatory changes. Consider stercoral colitis.
--- NOTE | 2025-09-16 20:50 | ED_ITS ---
Discharge Plan Disposition Patient Disposition: Admitted Condition: Fair Clinical Impressions Clinical Impression: Fecal impaction Discharge ED Provider: Trevor Nieves General Adult HPI General Chief complaint: PAIN Stated complaint: Bowel inpaction Time Seen by Provider: 09/16/25 20:37 Mode of Arrival: Wheelchair Source of Information: Patient and Relative Description of Symptoms (Recalled from ER Triage Doc. by RN): Pt presents with c/o no bowel movement for 2 weeks at least. Pt has a h/o constipation problems, and has taken multiple stool softeners, laxatives, enemas, and suppositories. Pt has a recent L BKA as well as a pepe cath she has had since july. Pt is on plavix and eliquis. History of Present Illness HPI narrative: Hattie Zamora is an 85-year-old female with a history of right lower extremity BKA at [facility] in mid July, chronic indwelling Pepe catheter, diabetes, peripheral arterial disease who presents to the emergency department with family for concern for constipation, rectal pain and no bowel movement in 1 week. Patient has been taking oxycodone?acetaminophen since the surgery. She had a home x-ray on Tuesday that showed a lot of stool . They have tried suppositories, enemas, MiraLAX, [id number] stool softeners without relief. Patient states that her pain is in her rectum. She has had some oozing around the stool ball but no solid bowel movements in at least a week. Related Data Home Medications ?Medication ?Instructions ?Recorded ?Confirmed pravastatin 40 mg tablet 40 mg PO HS 03/31/18 5 budesonide-formoterol HFA 160 2 puffs inhalation BID 1 09/17/25 mcg-4.5 mcg/actuation aerosol inhaler (Symbicort) apixaban 2.5 mg tablet (Eliquis) 2.5 mg PO BID 5 09/17/25 clopidogrel 75 mg tablet 75 mg PO DAILY 01/31/2512/11 gabapentin 300 mg capsule 300 mg PO BID 07/02/2509/17 hydrocodone 5 mg-acetaminophen 325 1 tab PO QID PRN Pa in (Scale Score 09/17/25 09/17/25 mg tablet 4-6) memantine 5 mg tablet 5 mg PO DAILY 09/17/2509/17 quetiapine 25 mg tablet 12.5 mg PO HS PRN Sleep 12/1109/17/25 tamsulosin 0.4 mg capsule 0.4 mg PO HS 09/17/25 Previous Rx's ?Medication ?Instructions ?Recorded digoxin 125 mcg (0.125 mg) tablet 125 mcg PO DAILY #90 tabs 04/30/25 Allergies Allergy/AdvReac Type Severity Reaction Status Date / Time codeine (CODEINE) Allergy Unknown Unknown Verified 07/15/25 09:03 allergy reaction morphine Allergy Unknown Unknown Verified 07/15/25 09:03 allergy reaction alprazolam (From Xanax) Allergy Unknown Verified 09/17/25 01:39 allergy reaction Sulfa (Sulfonamide Allergy Unknown Verified 09/17/25 01:39 Antibiotics) allergy reaction fentanyl AdvReac Mild behavior Verified 07/15/25 09:03 changes diphenhydramine (From AdvReac Agitated Verified 07/15/25 09:03 Benadryl) doxycycline AdvReac Nausea Verified 07/15/25 09:03 PFSH PENDING SALE TO [facility] Disclaimer: The information contained in this section may have been updated after the patient was seen, as this information can be updated by other users. Medical History (Updated 09/17/25 @ 08:52 by Yuliana Lombardi APRN) Ischemic pain of left foot Pain in right lower leg CHF (congestive heart failure) Asthma Abnormal ankle brachial index (MICHELE) Abnormal electrocardiography Absence of posterior tibial pulse Anxiety Atrial fibrillation with rapid ventricular response Body mass index (BMI) of 25.0 to 29.9 Callus of foot Chronic obstructive pulmonary disease Coronary artery disease Diabetes mellitus Diabetic foot Diastolic dysfunction Dry gangrene Dystrophia unguium Heart murmur Hyperlipidemia Hypertension Infection of left foot Intermittent claudication Ischemia of lower extremity Keratosis Left bundle branch block (LBBB) determined by electrocardiography Leg wound, right half-way current use of anticoagulant therapy Mitral valve insufficiency Onychogryposis Osteomyelitis of toe Osteopenia determined by x-ray Paroxysmal atrial fibrillation Peripheral arterial disease Pneumonia Pre-syncope Presence of cardiac pacemaker Primary osteoarthritis of both feet Pulmonary hypertension Rapid atrial fibrillation Skin ulcer of second toe of left foot with fat layer exposed Systemic inflammatory response syndrome (SIRS) Tachycardia-bradycardia Ulcer of left great toe due to diabetes mellitus Acquired hammer toes of both feet Ulcer of right fifth toe due to diabetes mellitus Intracranial arteriosclerosis Pneumonia UTI (urinary tract infection) Memory loss Abnormal findings on diagnostic imaging of heart and coronary circulation Chronic HFrEF (heart failure with reduced ejection fraction) Amputated toe of right foot Cellulitis Fracture of cuneiform bone of foot Acquired pes planus of right foot Osteomyelitis of toe of right foot Postoperative wound dehiscence Charcot's joint of right foot Postoperative dehiscence of skin wound Gangrene of toe Gangrene of toe of right foot Cough Ischemic ulcer of toe of right foot, limited to breakdown of skin Ischemic ulcer of toe of right foot Real time reverse transcriptase PCR positive for COVID-19 virus Peripheral vascular disease of lower extremity Pre-ulcerative calluses Pneumonia Claudication Peripheral arterial disease Abnormal ankle brachial index (MICHELE) Cardiac pacemaker in situ Acute bronchitis Left bundle branch block (LBBB) on electrocardiogram Tachy-jose francisco syndrome Near syncope Elevated blood pressure reading Anxiety Diabetic foot Keratosis Callus of foot Diabetic ulcer of right fifth toe Dry gangrene Skin ulcer of second toe of left foot with fat layer exposed Ulcer of left great toe due to diabetes mellitus Primary osteoarthritis of both feet Encounter for wound care Overweight (BMI 25.0-29.9) Type 2 diabetes mellitus without complication, without long-term current use of insulin Acquired hammertoes of both feet Osteomyelitis of toe Left foot infection Nail dystrophy Onychogryphosis Lower limb ischemia PAF (paroxysmal atrial fibrillation) Claudication PAD (peripheral artery disease) Leg wound, right Leg edema, right COPD (chronic obstructive pulmonary disease) Hyperlipemia HTN (hypertension) Diabetes mellitus Rapid atrial fibrillation Pulmonary HTN Diastolic dysfunction Mitral regurgitation 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 A-fib Abnormal ECG Fatigue Dyspnea CAD (coronary artery disease) Atrial fibrillation with RVR Asthma with exacerbation Acute exacerbation of chronic obstructive airways disease Surgical History Hx of BKA History of amputation of toe History of tubal ligation History of nasal surgery S/P peripheral artery angioplasty with stent placement Status post placement of cardiac pacemaker S/P amputation of lesser toe History of complete ray amputation of fourth toe of right foot History of complete ray amputation of third toe of right foot Status post foot surgery Status post placement of cardiac pacemaker S/P peripheral artery angioplasty with stent placement Family History Other Coronary artery disease Diabetes Heart attack Social History Smoking Status: Never smoker alcohol intake: never substance use type: denies use current occupational status: retired Travel in the last 8 weeks?: Inside the [place] household members: none housing: house current occupation: Works at [employer] current occupational exposures/hazards: No caffeine: Yes Have you lived/traveled outside [place] in past 30 days?: No Contact w/someone who lives/traveled outside US past 30 days?: No Exposure to someone with infectious disease in past 14 days?: No Do you have a fever (greater than 100.4 F or 38 C)?: No Have you tested positive for COVID-19?: No Exposed to someone with COVID-19 in past 14 days?: No Do you have a sore throat?: No Do you have a cough?: No Do you have any weakness?: No Do you have any diarrhea?: No Are you experiencing any unusual bleeding?: No Do you have any muscle aches/pain?: No Do you have any abdominal pain?: No Are you experiencing loss of taste or smell?: No Other Medical History Have you received the Flu Vaccine for this season: No Have you received the Pneumonia Vaccine: No ROS Obtained: Yes Systems reviewed as appropriate & no additional complaints except as documented Physical Exam General General appearance: alert Comment: Appears uncomfortable Head Head exam: atraumatic Eye Eye exam: Present normal appearance ENT ENT exam: Present normal external ear exam Neck Neck exam: Present full ROM Chest Chest inspection: Present symmetric chest wall rise Respiratory Respiratory exam: Present normal lung sounds bilaterally; Absent respiratory distress, wheezes or stridor Cardiovascular Cardiovascular exam: Present regular rate and normal rhythm Abdominal Exam Abdominal exam: Present soft and tenderness (very mild lower abdominal tenderness); Absent distention, guarding or rigidity Rectal Exam Rectal exam: Present normal rectal tone and fecal impaction Extremities Exam Extremities exam: Present normal inspection Back Exam Back exam: Present normal inspection Neurological Exam Neurological exam: Present alert and oriented X3 Psychiatric Psychiatric exam: Present normal affect Skin Skin exam: Present warm and dry Medical Decision Making Medical Records Screening: Per USPSTF and CDC recommendations, given the prevalence of disease in our region, it is our hospital?s policy to screen for HIV and viral Hepatitis for all patients aged 18 and over and those with ongoing risk factors. Hermes Inquiry Pt receiving controlled substance: No Vital Signs: 09/16/25 20:35 09/16/25 21:17 09/16/25 21:30 Temperature 98.9 F Temperature Source Oral Pulse Rate 105 H Pulse Rate [Right] 95 H Respiratory Rate 23 Blood Pressure 183/80 H Blood Pressure [Right Arm] 164/71 H Blood Pressure Mean 100 Blood Pressure Mean [Right Arm] 102 Blood Pressure Source Blood Pressure Source [Right Arm] Automatic Cuff Blood Pressure Position Blood Pressure Position [Right Arm] Sitting 02 Sat by Pulse Oximetry 97 98 Oxygen Delivery Method Room Air Room Air 09/16/25 21:30 09/16/25 21:45 09/16/25 22:00 Temperature Temperature Source Pulse Rate 88 94 H 86 Pulse Rate [Right] Respiratory Rate Blood Pressure Blood Pressure [Right Arm] Blood Pressure Mean Blood Pressure Mean [Right Arm] Blood Pressure Source Blood Pressure Source [Right Arm] Blood Pressure Position Blood Pressure Position [Right Arm] 02 Sat by Pulse Oximetry 97 97 97 Oxygen Delivery Method Room Air Room Air Room Air 09/16/25 22:00 09/16/25 22:15 09/16/25 22:30 Temperature Temperature Source Pulse Rate 92 H Pulse Rate [Right] Respiratory Rate Blood Pressure 164/74 H 153/65 H Blood Pressure [Right Arm] Blood Pressure Mean 98 94 Blood Pressure Mean [Right Arm] Blood Pressure Source Blood Pressure Source [Right Arm] Blood Pressure Position Blood Pressure Position [Right Arm] 02 Sat by Pulse Oximetry 99 Oxygen Delivery Method 09/16/25 22:30 09/16/25 22:45 09/16/25 23:00 Temperature Temperature Source Pulse Rate 90 88 93 H Pulse Rate [Right] Respiratory Rate Blood Pressure Blood Pressure [Right Arm] Blood Pressure Mean Blood Pressure Mean [Right Arm] Blood Pressure Source Blood Pressure Source [Right Arm] Blood Pressure Position Blood Pressure Position [Right Arm] 02 Sat by Pulse Oximetry 97 97 99 Oxygen Delivery Method 09/16/25 23:01 09/16/25 23:01 09/16/25 23:15 Temperature Temperature Source Pulse Rate 88 89 Pulse Rate [Right] Respiratory Rate Blood Pressure 176/67 H Blood Pressure [Right Arm] Blood Pressure Mean 86 Blood Pressure Mean [Right Arm] Blood Pressure Source Blood Pressure Source [Right Arm] Blood Pressure Position Blood Pressure Position [Right Arm] 02 Sat by Pulse Oximetry 99 96 Oxygen Delivery Method 09/16/25 23:30 12/01/25 23:30 09/16/25 23:45 Temperature Temperature Source Pulse Rate 89 92 H Pulse Rate [Right] Respiratory Rate Blood Pressure 147/63 H Blood Pressure [Right Arm] Blood Pressure Mean 90 Blood Pressure Mean [Right Arm] Blood Pressure Source Blood Pressure Source [Right Arm] Blood Pressure Position Blood Pressure Position [Right Arm] 02 Sat by Pulse Oximetry 98 98 Oxygen Delivery Method 09/17/25 00:00 09/17/25 00:12 09/17/25 00:26 Temperature Temperature Source Pulse Rate 106 H 84 Pulse Rate [Right] Respiratory Rate Blood Pressure Blood Pressure [Right Arm] Blood Pressure Mean Blood Pressure Mean [Right Arm] Blood Pressure Source Blood Pressure Source [Right Arm] Blood Pressure Position Blood Pressure Position [Right Arm] 02 Sat by Pulse Oximetry 97 98 Oxygen Delivery Method Room Air Room Air 09/17/25 00:31 09/17/25 00:58 09/17/25 01:00 Temperature Temperature Source Pulse Rate 86 97 H Pulse Rate [Right] Respiratory Rate Blood Pressure 146/54 H Blood Pressure [Right Arm] Blood Pressure Mean 84 Blood Pressure Mean [Right Arm] Blood Pressure Source Blood Pressure Source [Right Arm] Blood Pressure Position Blood Pressure Position [Right Arm] 02 Sat by Pulse Oximetry 98 97 Oxygen Delivery Method Room Air Room Air 09/17/25 01:00 09/17/25 01:04 09/17/25 01:14 Temperature 98.9 F 98.8 F Temperature Source Oral Oral Pulse Rate 97 H Pulse Rate [Right] 87 Respiratory Rate 16 16 Blood Pressure 144/56 H 144/56 H Blood Pressure [Right Arm] 160/80 H Blood Pressure Mean 85 Blood Pressure Mean [Right Arm] 106 Blood Pressure Source Automatic Cuff Blood Pressure Source [Right Arm] Automatic Cuff Blood Pressure Position Sitting Blood Pressure Position [Right Arm] 02 Sat by Pulse Oximetry 96 Oxygen Delivery Method Room Air Room Air Lab Data Lab Results 09/16/25 21:00: WBC 11.8 H, RBC 3.82 L, Hgb 10.4 L, Hct 34.2 L, MCV 89.5, MCH 27.2, MCHC 30.4 L, RDW 14.9, Plt Count 428 H, MPV 9.0, Neut % (Auto) 66.2, Lymph % (Auto) 20.9, Bee % (Auto) 7.4, Eos % (Auto) 4.8, Baso % (Auto) 0.3, Neut # (Auto) 7.8, Lymph # (Auto) 2.5, Bee # (Auto) 0.9, Eos # (Auto) 0.6 H, Baso # (Auto) 0.0, Sodium 134 L, Potassium 3.6, Chloride 103, Carbon Dioxide 26, Anion Gap 8.6, BUN 13, Creatinine 0.60, Estimated Creat Clear 29, Estimated GFR 95, Est GFR ( Amer) 115, Glucose 108 H, Lactate 1.1, Calcium 9.1, Total Bilirubin 0.4, AST 23, ALT 14, Alkaline Phosphatase 91, Total Protein 6.9, A lbumin 3.4 L, Globulin 3.5 H, Albumin/Globulin Ratio 1.0 L, Lipase 23 09/17/25 05:55 09/17/25 05:55 Orders (Tests/Meds): ED MEDICATIONS Generic Name Dose Route Start Last Admin Trade Name Freq PRN Reason Stop Dose Admin Acetaminophen 650 mg 09/17/25 01:46 Acetaminophen 325mg Tab PO 10/17/25 01:45 Q4HP PRN Fever or Mild Pain (1-3) Hydrocodone Bitart/Acetaminophen 1 tab 09/17/25 09:02 Hydrocodone/Apap 5/325 Mg Tablet PO 10/17/25 08:44 QIDP PRN Pain (Scale Score 4-6) Apixaban 2.5 mg 09/17/25 09:00 09/17/25 08:41 Apixaban 5mg Tablet PO 10/17/25 08:59 2.5 mg BID BINH Administration Clopidogrel Bisulfate 75 mg 09/17/25 09:00 09/17/25 08:41 Clopidogrel 75mg Tab PO 10/17/25 08:59 75 mg DAILY BINH Administration Digoxin 125 mcg 09/17/25 09:00 09/17/25 08:42 Digoxin 0.125mg Tablet PO 10/17/25 08:59 125 mcg DAILY BINH Administration Gabapentin 300 mg 09/17/25 09:00 09/17/25 08:41 Gabapentin 300mg Capsule PO 10/17/25 08:59 300 mg BID BINH Administration Hydrocortisone 0 gm 09/17/25 09:00 09/17/25 09:12 Hydrocortisone 2.5% Cream 28gm Tube TP 10/17/25 08:59 1 applic QID BINH Administration Sodium Chloride 1,000 mls @ 75 mls/hr 09/17/25 01:45 09/17/25 02:32 Sod Chlor 0.9% 1000ml Bag IV 10/17/25 01:44 75 mls/hr .[id number] BINH Administration Insulin Human Lispro 0 unit 09/17/25 06:00 09/17/25 11:33 Humalog 100 Units/Ml 10ml Vial (Ssi) SUBCUT 10/17/25 05:59 Not Given ACHS [facility] Protocol Memantine 5 mg 09/17/25 09:00 09/17/25 08:41 Memantine 10mg Tablet PO 10/17/25 08:59 5 mg DAILY BINH Administration Polyethylene Glycol 17 gm 09/17/25 09:00 09/17/25 08:41 Polyethylene Glycol 3350 17 Gm Packet PO 10/17/25 08:59 17 gm BID BINH Administration Pravastatin Sodium 40 mg 09/17/25 21:00 Pravastatin 40mg Tab PO 10/17/25 20:59 HS [facility] Senna/Docusate Sodium 1 tab 09/17/25 09:00 09/17/25 08:41 Sennosides 8.6mg/Docusate 50mg Tablet PO 10/17/25 08:59 1 tab DAILY BINH Administration Sodium Chloride 10 ml 09/17/25 01:41 Sodium Chloride 0.9% 10ml Flush Syringe IV 10/17/25 01:40 NEEDED PRN Maintain IV Site Sodium Phosphate 133 ml 09/17/25 01:52 Sodium Phos/Biphosphate Fleet 133ml Enema RC 10/17/25 01:51 DAILYP PRN CONSTIPATION Tamsulosin HCl 0.4 mg 09/17/25 21:00 Tamsulosin 0.4mg Capsule PO 10/17/25 20:59 HS [facility] Witch Mehnaz 1 each 09/17/25 08:46 09/17/25 09:12 Witch Mehnaz 40 Pads/Box TP 10/17/25 08:45 1 each NEEDED PRN Administration Rectal pain Discontinued Medications Generic Name Dose Route Start Last Admin Trade Name Freq PRN Reason Stop Dose Admin Hydrocodone Bitart/Acetaminophen 1 tab 09/17/25 08:45 09/17/25 08:52 Hydrocodone/Apap 5/325 Mg Tablet PO 01/01/26 08:44 1 tab QID PRN Administration Pain (Scale Score 4-6) Hydromorphone HCl 0.25 mg 09/16/25 20:55 09/16/25 21:13 Hydromorphone 2mg/Ml Syringe IV 09/16/25 20:56 0.25 mg ONCE ONE Administration Hydromorphone HCl 0.5 mg 09/16/25 23:38 09/16/25 23:45 Hydromorphone 2mg/Ml Syringe IV 09/16/25 23:39 0.5 mg ONCE ONE Administration Iopamidol 75 ml 09/16/25 21:35 09/16/25 21:36 Iopamidol-370 (76%);100ml Bottle IV 09/16/25 21:36 75 ml ONCE ONE Administration Sodium Chloride 10 ml 09/16/25 21:35 09/16/25 21:36 Sodium Chloride 0.9% 10ml Syr (Rad Only) IV 09/16/25 21:36 10 ml ONCE ONE Administration ORDERS Category Date Time Status CT abdomen pelvis w con Stat Cat Scan 09/16/25 20:48 Completed CBC w/Auto Diff [Complete Blood Count Auto Diff] Stat Lab 09/16/25 21:00 Completed CMP [Comprehensive Metabolic Panel] Stat Lab 09/16/25 21:00 Completed Lactic Acid Stat Lab 09/16/25 21:00 Completed Lipase Stat Lab 09/16/25 21:00 Completed Medical Decision Narrative: Hattie Zamora is an 85-year-old female with a history of right lower extremity BKA at [facility] in mid July, chronic indwelling Pepe catheter, diabetes, peripheral arterial disease who presents to the emergency department with family for concern for constipation, rectal pain and no bowel movement in 1 week. Patient has been taking oxycodone?acetaminophen since the surgery. She had a home x-ray on Tuesday that showed a lot of stool . They have tried suppositories, enemas, MiraLAX, [id number] stool softeners without relief. Patient states that her pain is in her rectum. She has had some oozing around the stool ball but no solid bowel movements in at least a week. On arrival, patient is hemodynamically stable, in no acute respiratory distress, afebrile. Cardiopulmonary exam is unremarkable. Abdomen is nondistended, nonperitonitic, mildy tender over the suprapubic region. On rectal exam with home delivery driver present showed liquidy stool around rectum and a stool ball in the rectal vault. No hemorrhoids. No active bleeding. Differential diagnosis includes, but is not limited to: fecal impaction, bowel perforation, stercoral colitis, among others. The most morbid conditions were considered and workup was based on these. Laboratory workup shows chronic anemia, slightly worse than normal with hemoglobin of 10.4 (baseline appears to be around 11.5), Mild leukocytosis at 11.8 without neutrophilia, platelets within normal limits, coagulation studies within normal limits. Electrolytes and kidney function within normal limits except for mild hyponatremia at 134. Lactate normal at 1.1. Lipase normal at 23 CT abdomen pelvis was interpreted by me personally. Patient has a large amount of stool within the colon and rectal vault. This is consistent with fecal impaction. Patient also has inflammatory changes around the rectum concerning for stercoral colitis. See radiology report for details. Given concern for stercoral colitis, I did discuss patient's case with Dr. Dockery who stated that he felt he was okay to proceed with manual disimpaction and that she would likely need to be admitted for bowel cleanout. Given this, I discussed manual disimpaction with patient and family and they were in agreement with this plan. Patient was initially given a dose of Dilaudid but repeat dose was administered prior to disimpaction. A large stool ball was noted on digital rectal exam and a fair amount of firm stool was removed from the rectal vault. Patient had a fair amount of pain with this procedure. Will proceed with enema at this time. I did discuss patient's case with Dr. Zarco with the hospital medicine service that she will require additional bowel cleanout and she was in agreement to admit the patient at this time. Procedures Rectal Disimpaction Indication: fecal impaction Procedural Sedation: No Sedation/Analgesia: opioids Technique: manual disimpaction with gloved finger Result: significant stool output Patient Tolerated Procedure: well Complications: pain Critical Care Critical Care Time Critical Care Time: No
[2025-09-16 21:13] LABS: Hematocrit 34.2 % (37.0-47.0); Hemoglobin 10.4 g/dL (12.2-16.2); Immature Granulocytes % 0.4 %; Mean Corpuscular HGB Conc 30.4 g/dL (31.8-35.4); Mean Corpuscular Hemoglobin 27.2 pg (27.0-31.2); Mean Corpuscular Volume 89.5 fl (81-99); Nucleated Red Blood Cells % 0 %; Platelet Count 428 K/mm3 (142-424); Red Blood Count 3.82 M/mm3 (4.20-5.40); Red Cell Distribution Width-SD 48.9 fL; White Blood Count 11.8 K/mm3 (4.8-10.8)
[2025-09-16] MEDS: HYDROMORPHONE 2MG/ML SYRINGE 0.25 MG IV (21:13)
--- OUTSIDE RECORDS SUMMARY | 2025-09-16 21:13 | XMS_ITS | Encounter Summary ---
Author Organization [facility] Address [address] [place] [address] Care Team Providers Care Ornamental Metal Worker Helper Name Role Phone Alexis Montanez MD Primary Care Provider [phone] Encounter Details Date Type Department Care Team [...] and heating? Patient unable to answer 08/01/2025 [facility] [place] - Occupational Stress [...] daily living? Patient unable to answer 08/01/2025 [facility] Utilities Answer Date Recorded In the [...] 12:58 PM EDT Karis August RN * [place] Suicide Severity Rating Scale (Screener/Recent Self-Report) Question Answer Date of Assessment Author 1. Wish to be (Past 1 Month) No 025 12:58 PM EDT Karis August RN 2. Non-Specific Active Suici nilton Thoughts (Past 1 Month) No 07/31/2025 12:58 PM EDT Michelle August RN 6. Suicidal Behavior (Lifetime) No 12:58 PM EDT Karis August RN documented as of this encounter Plan of Treatment Not on file documented as of this encounter Visit Diagnoses Not on filedocumented in this encounter Additional Health Concerns Infection Onset Date Last Indicated Resolved Time MRSA 07/24/2025 07/24/2025 documented as of this encounter Care Teams Ornamental Metal Worker Helper Relationship Specialty Start Date End Date Alexis Montanez MD [address] [place] [facility] [address] [place] [address] PCP - General Family Medicine 07/23/25 documented as of this encounter
--- OUTSIDE RECORDS SUMMARY | 2025-09-16 21:13 | XMS_ITS | Encounter Summary ---
[facility] [address] [place] [address] Care Team Providers Care District Wildlife Manager Name Role Phone Alexis Montanez MD Primary Care Provider [phone] Encounter Details Date Type Department Care Team (Late st Contact Info) Description 08/28/2025 Readmission Management [facility] NURSE CALL CENTER [address] [place] [phone] Silvia Granado, RN Social History Tobacco [...] and heating? Patient unable to answer 08/01/2025 [facility] [place] of Occupat ional Health - Occupational Stress [...] daily living? Patient unable to answer 08/01/2025 [facility] Utilities Answer Date Recorded In the past 12 months has [facility] [employer], gas, oil, or water [employer] threatened to shut off services in your [...] Patient unable to answer 08/26/2025 Preferred Language Kenyan 08/26/2025 PHQ-2 Answer Date Recorded Patient Health [...] PM EST Prep Survey Flowsheet Row Responses [facility] score less than 10 ? No Eligibility Readm Mgmt Discharge diagnosis Critical limb ischemia of left lower extremity Does the patient have one of the following disease processes/diagnoses(primary or secondary)? Other Does the patient have Home health ordered? Yes What is the [facility] Is there a DME ordered? Yes What DME was ordered? [facility] Prep survey completed? Yes SILVIA El - Registered Nurse documented in this encounter Plan of Treatment Not on file documented as of this encounter Visit Diagnoses Not on filedocumented in this encounter Additional Health Concerns Infection Onset Date Last Indicated Resolved Time MRSA 07/24/2025 07/24/2025 documented as of this encounter Care Teams District Wildlife Manager Relationship Specialty Start Date End Date Alexis Montanez MD [address] [facility] [address] [place] [address] PCP - General Family Medicine 07/23/25 documented as of this encounter
--- OUTSIDE RECORDS SUMMARY | 2025-09-16 21:13 | XMS_ITS | Encounter Summary ---
[facility] [address] [place] [address] Care Team Providers Care News Clipping Cutter Name Role Phone Alexis Montanez MD Primary Care Provider [phone] Encounter Details Date Type Department Care Team (Late st Contact Info) Description 08/29/2025 Readmission Management [facility] NURSE CALL CENTER [address] [place] [phone] Lizeth Stroud, BRAVO Social History Tobacco [...] and heating? Patient unable to answer 08/01/2025 [facility] [place] of Occupat ional Health - Occupational Stress [...] daily living? Patient unable to answer 08/01/2025 [facility] Utilities Answer Date Recorded In the past 12 months has [facility] [employer], gas, oil, or water [employer] threatened to shut off services in your [...] Patient unable to answer 08/26/2025 Preferred Language Mexican 08/26/2025 PHQ-2 Answer Date Recorded Patient Health [...] Medical Week 1 Survey Flowsheet Row Responses [facility] [place] patient discharged from? [place] Does the patient have one of the [...] due by today? N/A Comments Go to [facility] Tuesday AT: 9:15 AM What is the Home health agency? [facility] Has home health visited the patient within 72 hours of discharge? Call prior to 72 hours [ has contacted, expected visit tomorrow.] What DME was ordered? Hospital bed Has all DME been delivered? No DME comments Daughter states that [facility] in [place] will be delivering. Psychosocial issues? No Comments [...] interested in additional calls from an ambulatory onsite case manager? No Wrap up additional comments Daughter denies [...] documented as of this encounter Care Teams News Clipping Cutter Relationship Specialty Start Date End Date Alexis Montanez MD [address] [place] [address] PCP - General Family Medicine 07/23/25 documented as of this encounter
--- OUTSIDE RECORDS SUMMARY | 2025-09-16 21:13 | XMS_ITS | Encounter Summary ---
[facility] Address [address] [place] [address] Care Team Providers Care Bulb Tester Name Role Phone Alexis Montanez MD Primary Care Provider [phone] Encounter Details Date Type Department Care Team (Late st Contact Info) Description 07/29/2025 Readmission Management [facility] NURSE CALL CENTER [address] [place] [phone] Carmelita Sparks, RN Social History Tobacco Use Types Packs/Day Years Used Date Smoking Tobacco: Never Smokeless Tobacco: Never Alcohol Use Standard Drinks/Week Comments Never 0 (1 standard drink = 0.6 oz pur e alcohol) [facility] Utilities Answer Date Recorded In the past 12 months has [employer], gas, oil, or water [employer] threatened to shut off services in your [...] care, and heating? Not very hard 07/24/2025 [place] of Occupat ional Health - Occupational Stress [...] GED or equivalent No 07/24/2025 Preferred Language Eritrean 07/24/2025 PHQ-2 Answer Date Recorded Patient Health [...] Medical Week 1 Survey Flowsheet Row Responses [facility] patient discharged from? [place] Does the patient have one of the [...] documented as of this encounter Care Teams Bulb Tester Relationship Specialty Start Date End Date Alexis Montanez MD [address] [facility] [address] [place] [address] PCP - General Family Medicine 07/23/25 documented as of this encounter
--- OUTSIDE RECORDS SUMMARY | 2025-09-16 21:13 | XMS_ITS | Clinical Summary ---
Author Organization [facility] Address [address] [place] [address] Care Team Providers Care Lead Case Manager Name Role Phone Alexis Montanez MD Primary Care Provider [phone] Allergies Active Allergy Reactions Criticality Noted Date [...] 1 tablet by mouth Every Night. Active budesonide-for moterol (SYMBICORT) 160-4.5 MCG/ACT inhaler Inhale 2 puffs 2 (Two) Times a Day. Active QUEtiapine (SEROquel) 25 MG tablet Take 0.5 tablets by mouth Every Night. 30 tablet 1 08/28/20 25 Active apixaban (ELIQUIS) 2.5 MG tablet tablet Take 1 tablet by mouth 2 (Two) Times a Day. 08/28/20 25 Active gabapentin (NEURONTIN) 300 MG capsuleIndicat ions:PAD (peripheral artery disease) Take 1 capsule by mouth 2 (Two) Times a Day With Meals. 08/28/20 25 Active HYDROcodone-ac etaminophen (NORCO) 5-325 MG per tabletIndicati ons:PAD (peripheral artery disease),Ye ication Take 1 tablet by mouth Every 4 [...] MG/0.1ML nasal spray Call 911. Don't prime. [place] in 1 nostril for overdose. Repeat in 2-3 minutes in other nostril if no or minimal breathing/res ponsiveness. 2 each 08/28/20 25 Active apixaban (ELIQUIS) [...] 25 025 Discontinued(St op Taking at Discharge) HYDROcodone-ac etaminophen (NORCO) 10-325 MG per tabletIndicati ons:Critical limb ischemia of left lower extremity Take 1 tablet by mouth Every 6 (Six) Hours As Needed for Moderate Pain. 12 tablet 08/07/20 25 025 Discontinued(St op Taking at Discharge) tamsulosin (FLOMAX) 0.4 MG capsule 24 hr capsule Take 1 capsule by mouth Daily. 30 capsule 08/08/20 025 Discontinued tamsulosin (FLOMAX) 0.4 MG capsule 24 hr capsule Take 1 capsule by mouth Daily. 30 capsule 08/28/20 25 025 Discontinued ferrous sulfate 325 (65 FE) [...] Encounters Date Type Department Care Team Description 09/09/2025 Readmission Management [facility] NURSE CALL CENTER [address] [place] [address] Elvia Méndez, RN 08/29/2025 Readmission Management [facility] N[facility]SE CALL [facility] [address] [place] [address] Susan Stroud, RN 08/28/2025 Readmission Management [facility] [address] [place] [address] Ashley Granado RN 08/23/2025 10:54 AM EST Anesthesia Event [facility] OR [address] [place] [address] Venkata Gallagher MD Arrington, Ashley B, YENIFER 08/23/2025 10:05 AM EST Anesthesia Event Converted [facility] ANESTHESIA [address] [place] [address] 08/23/2025 10:00 AM EST Anesthesia Event Converted [facility] ANESTHESIA [address] [facility] [place] [address] 08/23/2025 9:57 AM EST - 08/23/2025 11:47 AM EST Surgery [facility] OR [address] [facility] [place] [place] [address] Junior Zhao MD BELOW THE KNEE AMPUTATION LEFT 08/23/2025 9:35 AM EST Anesthesia Event Converted [facility] ANESTHESIA [address] [facility] [place] [address] 08/23/2025 8:57 AM EST - 08/28/2025 2:51 PM EST Hospital Encounter [facility] 4H [address] [place] [address] Junior Zhao MD Hamilton, Olivia D, DO Shields, Daniel Alan, DO Burgess, Eva, MD PAD (peripheral artery disease) (Primary Dx); Critical limb ischemia of left lower extremity; Toe necrosis; Type 2 diabetes mellitus with diabetic neuropathy, without long-term current use of insulin; Claudication Discharge Disposition: Home-Health Care [facility] 08/23/2025 Travel 08/22/2025 8:30 AM EST Pre-Admission Testing [facility] PREADMISSION T [address] [place] [address] 08/22/2025 Travel 08/02/2025 2:21 PM EDT Anesthesia Event [facility] OR [address] [place] [address] Shahana Patel MD 08/02/2025 2:00 PM EDT Anesthesia Event Converted [facility] ANESTHESIA [address] [facility] [place] [address] 08/02/2025 1:48 PM EDT - 08/02/2025 5:54 PM EDT Surgery [facility] OR [address] [place] [address] Junior Zhao MD FEMORAL POPLITEAL BYPASS 08/01/2025 Readmission Management [facility] NURSE CALL CENTER [address] [facility] [place] [place] [address] Carmelita Sparks, RN 07/31/2025 2:54 PM EDT - 08/07/2025 3:06 PM EDT Hospital Encounter [facility] 4G [address] [facility] [place] [address] Gregg Munoz MD Brown, Hannah, MD McIntosh, Matthew M, MD Hamilton, Olivia D, DO Critical limb ischemia of left lower extremity (Primary Dx); Claudication; Toe necrosis; Peripheral artery disease; Acute urinary retention Discharge Disposition: Home-Health Care [facility] 07/31/2025 Travel 07/29/2025 Readmission Management [facility] NURSE CALL CENTER [address] [place] [address] Carmelita Sparks, RN 07/26/2025 Readmission Management [facility] NURSE CALL CENTER [address] [place] [address] Sienna Sheridan 07/23/2025 5:27 PM EDT - 07/25/2025 6:31 PM EDT Hospital Encounter [facility] 3E [address] [facility] [place] [address] Vipul Barney MD Butler, Jennifer, MD Gilbert, Meghan Carroll, DO Cellulitis of left foot (Primary Dx); Ischemic ulcer, unspecified ulcer stage; Peripheral artery disease; Critical limb ischemia of left lower extremity Discharge Disposition: Home or Self Care 07/23/2025 Travel from Last 3 Months Immunizations Immunization Administration Dates Next Due COVID-19 (PFIZER) Purple Cap Monovalent 11/21/19 21,11/01/2020 Social History Tobacco Use Types Packs/Day Years [...] and heating? Patient unable to answer 08/01/2025 [facility] - Occupational Stress Questionnaire Answer Date [...] Patient unable to answer 08/26/2025 Preferred Language Surinamese 08/26/2025 PHQ-2 Answer Date Recorded Patient Health [...] 08/23/2025 10:08 AM EST Plan of Treatment Health Maintenance Due Date Last Done Comments [...] 01/22/2026 07/24/2025 Medical Devices Implanted Type Area Instrument Maintenance Supervisor Device Identifier Shelf Expiration Date Model / Serial / Lot Hemost Abs Surgicel Snow 1x2in - [id number] Implanted:Qt y: 1 on 08/02/2025 by Junior Zhao MD at [facility] Implant Left: Groin [employer] [id number] 01/14/2027 [id number] / / [id number] Description:TOPICALLY APPLIE D Clipapplr M/ Endo Ligaclip 9 3/8in Sm - [id number] Implanted:Qt y: 1 on 08/02/2025 by Junior Zhao MD at [facility] Implant Left: Arterial [employer] J [employer] J [id number] 05/16/2030 [id number] / / [id number] Description:CLIPS USED Clipapplr M/ Endo Ligaclip9 3/8in Md - [id number] Implanted:Qt y: 1 on 08/02/2025 by Junior Zhao MD at [facility] Implant Left: Arterial [employer] J [employer] J [id number] 05/16/2030 MSM20 / / [id number] Description:CLIPS USED Kevin Khanna [id number] 60 - [id number] - [id number] Implanted:Qt y: 1 on 08/02/2025 by Junior Zhao MD at [facility] Implant Left: Leg [employer] [id number] 04/22/2028 [id number] / [id number] / Description:Left SFA Hemost Abs Surgicel Snow 1x2in - [id number] Implanted:Qt y: 1 on 08/02/2025 by Junior Zhao MD at [facility] Implant Left: Leg [employer] Buck [...] of left lower extremity Toe necrosis Special Murtaza WALTER POCT GLUCOSE FINGERSTICK Routine 08/23/2025 10:03 [...] of29 resultswithin the time period is included. [facility] Signature Glucose 96 70 - 130 mg/dL 08/28/2025 11:41 AM EST [facility] Comment:Serial Number: [id number]: [id number] Blood 08/28/2025 11:2 5 AM EST 08/28/2025 11:41 AM EST Rowena Mancera MD POINT OF CARE TEST ORDERABLES Fi nal Result [facility]
[address] [place] [address], * (ABNORMAL) CBC (No Diff) (08/28/2025 8:25 AM EST) Only the most recent of6 resultswithin the time period is included. WBC 10.02 3.40 - 10.80 10*3/mm3 08/28/2025 9:33 AM EST [facility] RBC 2.86(L) 3.77 - 5.28 10*6/mm3 08/28/2025 9:33 AM EST [facility] Hemoglobin 7.8(L) 12.0 - 15.9 g/dL 08/28/2025 9:33 AM [facility] Hematocrit 25.5(L) 34.0 - 46.6 % 08/28/2025 9:33 AM [facility] MCV 89.2 79.0 - 97.0 fL 08/28/2025 9:33 AM EST [facility] MCH 27.3 26.6 - 33.0 pg 08/28/2025 9:33 AM EST [facility] MCHC 30.6(L) 31.5 - 35.7 g/dL 08/28/2025 9:33 AM EST [facility] RDW 13.6 12.3 - 15.4 % 08/28/2025 9:33 AM [facility] RDW-SD 43.8 37.0 - 54.0 fl 08/28/2025 9:33 AM EST [facility] MPV 9.3 6.0 - 12.0 fL 08/28/2025 9:33 AM EST [facility] Platelets 418 140 - 450 10*3/mm3 08/28/2025 9:33 AM [facility] Blood Venipuncture / Unknown 08/28/2025 8:25 AM EST 08/28/2025 9:21 AM EST us Magali Jeffery PA-C LAB BLOOD ORDERABLES F inal Result [facility]
[address] [place] [address], * (ABNORMAL) Basic Metabolic Panel (08/27/2025 12:35 PM EST) Only the most recent of9 resultswithin the time period is included. Glucose 130(H) 65 - 99 mg/dL 08/27/2025 2:14 PM EST [facility] BUN 18.0 8.0 - 23.0 mg/dL 08/27/2025 2:14 PM EST [facility] Creatinine 0.41(L) 0.57 - 1.00 mg/dL 08/27/2025 2:14 PM EST [facility] Sodium 137 136 - 145 mmol/L 08/27/2025 2:14 PM EST [facility] Potassium 4.7 3.5 - 5.2 mmol/L 08/27/2025 2:14 PM EST [facility] Chloride 105 98 - 107 mmol/L 08/27/2025 2:14 PM EST [facility] CO2 24.1 22.0 - 29.0 mmol/L 08/27/2025 2:14 PM EST [facility] Calcium 7.8(L) 8.6 - 10.5 mg/dL 08/27/2025 2:14 PM [facility] BUN/Creatinine Ratio 43.9(H) 7.0 - 25.0 08/27/2025 2:14 PM EST [facility] Anion Gap 7.9 5.0 - 15.0 mmol/L 08/27/2025 2:14 PM [facility] eGFR 97.2 >60.0 mL/min/1.7 3 08/27/2025 2:14 PM EST [facility] Blood Venipuncture / Unknown 08/27/2025 12:35 PM EST 08/27/2025 1:22 PM EST [facility] - 08/27/2025 2:14 PM EST GFR [...] ORDERABLES F inal Result Performing Organization Address City/[facility] Co de Phone Number [facility]
[address] [place] [address], * Potassium (08/26/2025 6:52 PM EST) Potassium 5.2 3.5 - 5.2 mmol/L 08/26/2025 7:20 PM EST [facility] Blood Venipuncture / Unknown 08/26/2025 6:52 PM EST 08/26/2025 7:00 PM EST Delbert Quesada DO LAB BLOOD ORDERABLES Ely l Result Performing Organization Address [facility] de Phone Number [facility]
[address] [place] [address], * Phosphorus (08/26/2025 8:03 AM EST) Only the most recent of3 resultswithin the time period is included. Phosphorus 2.6 2.5 - 4.5 mg/dL 08/26/2025 8:59 AM EST [facility] Blood Venipuncture / Unknown 08/26/2025 8:03 AM EST 08/26/2025 8:37 AM EST Magali Jeffery PA-C LAB BLOOD ORDERABLES F inal Result Performing Organization Address City/[facility] Co de Phone Number [facility]
[address] [place] [address], * Magnesium (08/26/2025 8:03 AM EST) Only the most recent of5 resultswithin the time period is included. [facility] Magnesium 2.0 1.6 - 2.4 mg/dL 08/26/2025 9:05 AM EST [facility] Blood Venipuncture / Unknown 08/26/2025 8:03 AM EST 08/26/2025 8:37 AM EST Magali Jeffery PA-C LAB BLOOD ORDERABLES F inal Result [facility]
[address] [place] [address], * Folate (08/26/2025 8:03 AM EST) [facility] Folate 6.55 4.78 - 24.20 ng/mL 08/26/2025 12:29 PM EST [facility] Blood Venipuncture / Unknown 08/26/2025 8:03 AM EST 08/26/2025 8:38 AM EST Narrative [facility] - 08/26/2025 12:29 PM EST Results may be falsely increased if patient taking Biotin. Magali Jeffery PA-C LAB BLOOD ORDERABLES F inal Result [facility]
[address] [place] [address], * (ABNORMAL) Vitamin B12 (08/26/2025 8:03 AM EST) [facility] Vitamin B-12 1,062(H) 211 - 946 pg/mL 08/26/2025 12:29 PM EST [facility] Blood Venipuncture / Unknown 08/26/2025 8:03 AM EST 08/26/2025 8:38 AM EST Narrative [facility] - 08/26/2025 12:29 PM EST Results may be falsely increased if patient taking Biotin. Magali Jeffery PA-C LAB BLOOD ORDERABLES F inal Result [facility]
[address] [place] [address], * (ABNORMAL) Reticulocytes (08/25/2025 12:20 PM EST) Reticulocyte % 2.11(H) 0.70 - 1.90 % 08/25/2025 12:46 PM EST [facility] Reticulocyte Absolute 0.0559 0.0200 - 0.1300 10*6/mm3 08/25/2025 12:46 PM EST [facility] Blood Venipuncture / Unknown 08/25/2025 12:20 PM EST 08/25/2025 12:43 PM EST Magali Jeffery PA-C LAB BLOOD ORDERABLES F inal Result Performing Organization Address City/[facility]/ZIP Co de Phone Number [facility]
[address] [place] [address], [place] [phone] * (ABNORMAL) Iron Profile + Ferritin (08/25/2025 5:28 AM EST) Iron 11(L) 37 - 145 mcg/dL 08/25/2025 12:32 PM EST [facility] Iron Saturation (TSAT) 6(L) 20 - 50 % 08/25/2025 12:32 PM EST [facility] Transferrin 127(L) 200 - 360 mg/dL 08/25/2025 12:32 PM EST [facility] TIBC 189(L) 298 - 536 mcg/dL 08/25/2025 12:32 PM EST [facility] Ferritin 77.90 13.00 - 150.00 ng/mL 08/25/2025 12:32 PM [facility] Blood Venipuncture / Unknown 08/25/2025 5:28 AM EST 08/25/2025 6:36 AM EST [facility] - 08/25/2025 12:32 PM EST Results may be falsely decreased if patient taking Biotin. Magali Jeffery PA-C LAB BLOOD ORDERABLES F inal Result [facility]
[address] [place] [address], * (ABNORMAL) CBC Auto Differential (08/24/2025 6:05 AM EST) Only the most recent of10 resultswithin the time period is included. WBC 11.45(H) 3.40 - 10.80 10*3/mm3 08/24/2025 7:29 AM [facility] RBC 2.88(L) 3.77 - 5.28 10*6/mm3 08/24/2025 7:29 AM [facility] Hemoglobin 8.1(L) 12.0 - 15.9 g/dL 08/24/2025 7:29 AM [facility] Hematocrit 26.0(L) 34.0 - 46.6 % 08/24/2025 7:29 AM [facility] MCV 90.3 79.0 - 97.0 fL 08/24/2025 7:29 AM [facility] MCH 28.1 26.6 - 33.0 pg 08/24/2025 7:29 AM [facility] MCHC 31.2(L) 31.5 - 35.7 g/dL 08/24/2025 7:29 AM [facility] RDW 13.2 12.3 - 15.4 % 08/24/2025 7:29 AM [facility] RDW-SD 43.7 37.0 - 54.0 fl 08/24/2025 7:29 AM [facility] MPV 9.2 6.0 - 12.0 fL 08/24/2025 7:29 AM [facility] Platelets 407 140 - 450 10*3/mm3 08/24/2025 7:29 AM [facility] Neutrophil % 68.4 42.7 - 76.0 % 08/24/2025 7:29 AM [facility] Lymphocyte % 17.0(L) 19.6 - 45.3 % 08/24/2025 7:29 AM [facility] Monocyte % 12.0 5.0 - 12.0 % 08/24/2025 7:29 AM [facility] Eosinophil % 1.7 0.3 - 6.2 % 08/24/2025 7:29 AM [facility] Basophil % 0.3 0.0 - 1.5 % 08/24/2025 7:29 AM [facility] Immature Grans % 0.6(H) 0.0 - 0.5 % 08/24/2025 7:29 AM [facility] Neutrophils, Absolute 7.83(H) 1.70 - 7.00 10*3/mm3 08/24/2025 7:29 AM [facility] Lymphocytes, Absolute 1.95 0.70 - 3.10 10*3/mm3 08/24/2025 7:29 AM [facility] Monocytes, Absolute 1.37(H) 0.10 - 0.90 10*3/mm3 08/24/2025 7:29 AM [facility] Eosinophils, Absolute 0.20 0.00 - 0.40 10*3/mm3 08/24/2025 7:29 AM [facility] Basophils, Absolute 0.03 0.00 - 0.20 10*3/mm3 08/24/2025 7:29 AM [facility] Immature Grans, Absolute 0.07(H) 0.00 - 0.05 10*3/mm3 08/24/2025 7:29 AM [facility] nRBC 0.0 0.0 - 0.2 /100 WBC 08/24/2025 7:29 AM EST [facility] Blood Venipuncture / Unknown 08/24/2025 6:05 AM EST 08/24/2025 6:58 AM EST Junior Pavel CHRISTINE LAB BLOOD ORDERABLES Final Res ult [facility]
[address] [place] [address], * Tissue Pathology Exam (08/23/2025 11:30 AM EST) Only the most recent of2 resultswithin the time period is included. Case Report Surgical Pathology Report Case: [id number] Authorizing Provider: Junior Zhao MD Collected: 08/23/2025 11:30 AM Ordering Location: [facility] Received: 08/23/2025 01:01 PM OR Pathologist: Daniel Resendez MD Specimen: Knee, Left, LEFT BELOW THE KNEE AMPUTATION 08/27/2025 1:08 PM EST [facility] Clinical Information Critical limb ischemia of left lower extremity Toe necrosis 08/27/2025 1:08 PM EST [facility] Final Diagnosis LEFT BELOW THE KNEE AMPUTATION: Ulcerated and necrotic skin and subcutaneous tissue Underlying bone with osteonecrosis Negative for specific microorganisms Negative for dysplasia or malignancy Benign viable surgical resection margin 08/27/2025 1:08 PM EST [facility] at 1308 EST Gross [...] site reveals dusky discoloration and possible softening. [employer] Dipper sections are submitted as follows: 1A-en face proximal skin margin 1B-heel ulcer 1C-anterior and posterior tibial arteries, submitted following decalcification 1D-great toe amputation site with underlying bone, submitted following decalcification 1E-proximal marrow. LDP 08/27/2025 1:08 PM EST [facility] Microscopic Description The slides are reviewed and demonstrate histopathologic features supporting the above rendered diagnosis. 08/27/2025 1:08 PM EST [facility] Tissue Structure of left knee region / Unknown 08/23/2025 11:30 AM EST 08/23/2025 1:01 PM EST [facility] MD PATHOLOGY/CYTOLOGY ORDERABLES Final Result [facility]
[address] [place] [address], * BH AN PERIPHERAL BLOCK CATHETER (08/23/2025 [...] and catheter connection. Performed by: Roscoe Storm, [employer] Roscoe Storm [employer] ANESTHESIA ORDERABLES Edited Re sult - Final * (ABNORMAL) Protime-INR (08/22/2025 8:51 AM EST) Only the most recent of3 resultswithin the time period is included. Protime 16.3(H) 12.2 - 15.3 Seconds 08/22/2025 10:11 AM EST [facility] INR 1.23(H) 0.89 - 1.12 08/22/2025 10:11 AM EST [facility] Blood Venipuncture / Unknown 08/22/2025 8:51 AM EST 08/22/2025 9:06 AM EST Junior Zhao HI LAB BLOOD ORDERABLES Final Res ult Performing Organization Address City/[facility] Co de Phone Number [facility]
[address] [place] [address], * (ABNORMAL) Heparin Anti-Xa (08/05/2025 12:27 PM EDT) Only the most recent of5 resultswithin the time period is included. Heparin Anti-Xa (UFH) 0.10(L) 0.30 - 0.70 IU/ml 08/05/2025 1:39 PM EDT [facility] Blood Venipuncture / Unknown 08/05/2025 12:27 PM EDT 08/05/2025 1:08 PM EDT Ulises Bonilla [facility] LAB BLOOD ORDERABLES Final Res ult Performing Organization Address City/[facility]/ZIP Co de Phone Number [facility]
[address] [place] [address], * (ABNORMAL) Comprehensive Metabolic Panel (08/04/2025 4:12 AM EDT) Only the most recent of4 resultswithin the time period is included. [facility] Glucose 90 65 - 99 mg/dL [facility] BUN 10.1 8.0 - 23.0 mg/dL 08/04/2025 5:01 AM EDT [facility] Creatinine 0.57 0.57 - 1.00 mg/dL 08/04/2025 5:01 AM T [facility] Sodium 134(L) 136 - 145 mmol/L 08/04/2025 5:01 AM T [facility] Potassium 4.4 3.5 - 5.2 mmol/L 08/04/2025 5:01 AM [facility] Chloride 99 98 - 107 mmol/L 08/04/2025 5:01 AM EDT [facility] CO2 27.2 22.0 - 29.0 mmol/L 08/04/2025 5:01 AM [facility] Calcium 8.2(L) 8.6 - 10.5 mg/dL 08/04/2025 5:01 AM T [facility] Total Protein 5.2(L) 6.0 - 8.5 g/dL 08/04/2025 5:01 AM [facility] Albumin 2.8(L) 3.5 - 5.2 g/dL 08/04/2025 5:01 AM EDT [facility] ALT (SGPT) 15 1 - 33 U/L 08/04/2025 5:01 AM T [facility] AST (SGOT) 27 1 - 32 U/L 08/04/2025 5:01 AM T [facility] Alkaline Phosphatase 49 39 - 117 U/L 08/04/2025 5:01 AM [facility] Total Bilirubin 0.2 0.0 - 1.2 mg/dL 08/04/2025 5:[facility] Globulin 2.4 gm/dL 08/04/2025 5:01 AM EDT [facility] Comment:Calculated Result A/G Ratio 1.2 g/dL 08/04/2025 5:01 AM EDT [facility] BUN/Creatinine Ratio 17.7 7.0 - 25.0 08/04/2025 5:01 AM EDT [facility] Anion Gap 7.8 5.0 - 15.0 mmol/L 08/04/2025 5:01 AM EDT [facility] eGFR 89.7 >60.0 mL/min/1.7 3 08/04/2025 5:01 AM EDT [facility] Blood Structure of left upper limb / Unknown Venipuncture / Unknown 08/04/2025 4:12 AM EDT 08/04/2025 4:32 AM EDT Narrative [facility] - 08/04/2025 5:01 AM EDT GFR [...] MD LAB BLOOD ORDERABLES F inal Result [facility]
[address] [place] [address], * Telemetry Scan (08/03/2025 11:08 PM EDT) Only the most recent of6 resultswithin the time period is included. [facility] Onbase ECG ORDERABLES Final Result * BH AN ETT AIRWAY (08/02/2025 2:36 PM EDT) Narrative Shivani Hogue CRNA - 08/02/2025 2:36 PM EDT Shivani Hogue CRNA 08/02/2025 2:37 PM Airway Reason: elective Date/Time: 08/02/2025 2:25 PM Airway not difficult General Information and Staff Patient location during procedure: OR [employer]/CAA: Shivani Hogue CRNA Indications and Patient Condition [...] ABO Type O 08/02/2025 2:31 PM EDT [facility] RH type Positive 08/02/2025 2:31 PM EDT [facility] Antibody Screen Negative 08/02/2025 2:31 PM EDT [facility] T&S Expiration Date 08/05/2025 11:59:59 PM 08/02/2025 2:31 PM EDT [facility] Blood 08/02/2025 1:30 PM EDT 08/02/2025 1:38 PM EDT Parker Bryan MD BLOOD BANK TEST ORDERABLES Ed ited Result - Final Performing Organization Address City/[facility]/ZIP Co de Phone Number [facility]
[address] [place] [address], * (ABNORMAL) aPTT (08/02/2025 3:29 AM EDT) Only the most recent of10 resultswithin the time period is included. PTT 57.1(L) 60.0 - 90.0 seconds 08/02/2025 6:14 AM EDT [facility] Blood Venipuncture / Unknown 08/02/2025 3:29 AM EDT 08/02/2025 5:58 AM EDT Narrative [facility] - 08/02/2025 6:14 AM EDT PTT = The equivalent PTT values for the therapeutic range of heparin levels at 0.3 to 0.5 U/ml are 60 to 70 seconds. Ulises Bonilla [facility] BLOOD ORDERABLES Final Res ult Performing Organization Address City/[facility] Co de Phone Number [facility]
[address] [place] [address], * ABO RH Specimen Verification (08/01/2025 7:23 AM EDT) ABO Type O 08/02/2025 2:47 PM EDT [facility] RH type Positive 08/02/2025 2:47 PM EDT [facility] Blood Venipuncture / Unknown 08/01/2025 7:23 AM EDT 08/02/2025 1:54 PM EDT Yoli Moreira MD BLOOD BANK TEST ORDERABLES Final Result Performing Organization Address City/[facility]/ZIP Co de Phone Number [facility]
[address] [place] [address], * Wheatley Top (07/31/2025 2:37 PM EDT) Extra Tube Hold for add-ons. 07/31/2025 3:01 PM EDT [facility] Comment:Auto resulted. Blood Line / Unknown 07/31/2025 2: 37 PM EDT 07/31/2025 2:52 PM EDT Gregg Munoz MD LAB BLOOD ORDER ONLY Ely l Result [facility]
[address] [place] [address], [place] [phone] * Gold Top - SST (07/31/2025 2:37 PM EDT) Extra Tube Hold for add-ons. 07/31/2025 3:01 PM EDT [facility] Comment:Auto resulted. Blood Line / Unknown 07/31/2025 2: 37 PM EDT 07/31/2025 2:52 PM EDT us Gregg Munoz MD LAB BLOOD ORDER ONLY Ely l Result Performing Organization Address City/[facility]/ZIP Co de Phone Number [facility]
[address] [place] [address], [place] [phone] * (ABNORMAL) Sedimentation Rate (07/31/2025 2:37 PM EDT) Sed Rate 73(H) 0 - 30 mm/hr 07/31/2025 2:57 PM EDT [facility] Blood Venipuncture / Unknown 07/31/2025 2:37 PM EDT 07/31/2025 2:48 PM EDT us Gregg Munoz MD LAB BLOOD ORDERABLES Ely l Result Performing Organization Address City/[facility]/ZIP Co de Phone Number [facility]
[address] [place] [address], [place] [phone] * (ABNORMAL) C-reactive Protein (07/31/2025 2:37 PM EDT) [facility] C-Reactive Protein 2.78(H) 0.00 - 0.50 mg/dL 07/31/2025 3:23 PM EDT [facility] Blood Venipuncture / Unknown 07/31/2025 2:37 PM EDT 07/31/2025 2:48 PM EDT Gregg Munoz MD LAB BLOOD ORDERABLES Ely l Result Performing Organization Address City/[facility]/ZIP Co de Phone Number [facility]
[address] [place] [address], * Digoxin Level (07/31/2025 2:37 PM EDT) Only the most recent of2 resultswithin the time period is included. [facility] Digoxin 1.12 0.60 - 1.20 ng/mL 07/31/2025 3:23 PM EDT [facility] Blood Venipuncture / Unknown 07/31/2025 2:37 PM EDT 07/31/2025 2:48 PM EDT Narrative [facility] - 07/31/2025 3:23 PM EDT Results may be falsely increased if patient taking Biotin. Gregg Munoz MD LAB BLOOD ORDERABLES Ely l Result [facility]
[address] [place] [address], * (ABNORMAL) Renal Function Panel (07/25/2025 5:17 PM EDT) [facility] Glucose 83 65 - 99 mg/dL 07/25/2025 5:59 PM EDT [facility] BUN 5.9(L) 8.0 - 23.0 mg/dL 07/25/2025 5:59 PM EDT [facility] Creatinine 0.53(L) 0.57 - 1.00 mg/dL 07/25/2025 5:59 PM EDT [facility] Sodium 133(L) 136 - 145 mmol/L 07/25/2025 5:59 PM EDT [facility] Potassium 4.5 3.5 - 5.2 mmol/L 07/25/2025 5:59 PM EDT [facility] Chloride 99 98 - 107 mmol/L 07/25/2025 5:59 PM EDT [facility] CO2 29.7(H) 22.0 - 29.0 mmol/L 07/25/2025 5:59 PM EDT [facility] Calcium 8.5(L) 8.6 - 10.5 mg/dL 07/25/2025 5:59 PM EDT [facility] Albumin 3.2(L) 3.5 - 5.2 g/dL 07/25/2025 5:59 PM EDT [facility] Phosphorus 3.2 2.5 - 4.5 mg/dL 07/25/2025 5:59 PM EDT [facility] Anion Gap 4.3(L) 5.0 - 15.0 mmol/L 07/25/2025 5:59 PM EDT [facility] BUN/Creatinine Ratio 11.1 7.0 - 25.0 07/25/2025 5:59 PM EDT [facility] eGFR 91.3 >60.0 mL/min/1.7 3 07/25/2025 5:59 PM EDT [facility] Blood Venipuncture / Unknown 07/25/2025 5:17 PM EDT 07/25/2025 5:32 PM EDT [facility] - 07/25/2025 5:59 PM EDT GFR [...] ORDERABLES F inal Result Performing Organization Address City/[facility]/ZIP Co de Phone Number [facility]
[address] [place] [address], * (ABNORMAL) Urinalysis, Microscopic Only - Urine, Clean Catch (07/24/2025 10:03 PM EDT) RBC, UA None Seen None Seen, 0-2 /HPF 07/24/2025 10:21 PM EDT [facility] WBC, UA 6-10(A) None Seen, 0-2 /HPF 07/24/2025 10:21 PM EDT [facility] Bacteria, UA None Seen None Seen /HPF 07/24/2025 10:21 PM EDT [facility] Squamous Epithelial Cells, UA 0-2 None Seen, 0-2 /HPF 07/24/2025 10:21 PM EDT [facility] Hyaline Casts, UA None Seen None Seen /LPF 07/24/2025 10:21 PM EDT [facility] Methodology Automated Microscopy 07/24/2025 10:21 PM EDT [facility] Urine Urine specimen obtained by clean catch procedure / Unknown Collection / Unknown 07/24/2025 10:03 PM EDT 07/24/2025 10:15 PM EDT Amada Ibrahim MD URINE ORDERABLES Final Result Performing Organization Address [facility]/ZIP Co de Phone Number [facility]
[address] [place] [address], * (ABNORMAL) Urinalysis With Microscopic If Indicated (No Culture) - Urine, Clean Catch (07/24/2025 10:03 PM EDT) Color, UA Yellow Yellow, Straw 07/24/2025 10:21 PM EDT [facility] Appearance, UA Cloudy(A) Clear 07/24/2025 10:21 PM EDT [facility] pH, UA <=5.0 5.0 - 8.0 07/24/2025 10:21 PM EDT [facility] Specific [place], UA 1.022 1.005 - 1.030 07/24/2025 10:21 PM EDT [facility] Glucose, UA Negative Negative 07/24/2025 10:21 PM EDT [facility] Ketones, UA Negative Negative 07/24/2025 10:21 PM EDT [facility] Bilirubin, UA Negative Negative 07/24/2025 10:21 PM EDT [facility] Blood, UA Negative Negative 07/24/2025 10:21 PM EDT [facility] Protein, UA Negative Negative 07/24/2025 10:21 PM EDT [facility] Leuk Esterase, UA Small (1+)(A) Negative 07/24/2025 10:21 PM EDT [facility] Nitrite, UA Negative Negative 07/24/2025 10:21 PM EDT [facility] Urobilinogen, UA 1.0 E.U./dL 0.2 - 1.0 E.U./dL 07/24/2025 10:21 PM EDT [facility] Urine Urine specimen obtained by clean catch procedure / Unknown Collection / Unknown 07/24/2025 10:03 PM EDT 07/24/2025 10:15 PM EDT us Amada Ibrahim MD URINE ORDERABLES Final Result [facility]
[address] [place] [address], * (ABNORMAL) MRSA Screen, PCR (Inpatient) - Swab, Nares (07/24/2025 8:55 PM EDT) MRSA PCR Positive(A ) Negative CEPHEID GENEXPERT 07/25/2025 8:09 AM EDT [facility] Swab Structure of anterior naris / Unknown Collection / Unknown 07/24/2025 8:55 PM EDT 07/24/2025 9:16 PM EDT Narrative [facility] - 07/25/2025 8:09 AM EDT The negative predictive value of this diagnostic test is high and should only be used to consider de-escalating anti-MRSA therapy. A positive result may indicate colonization with MRSA and must be correlated clinically. Randy Mathis PharmD MICROBIOLOGY - GENERAL ORDERABLES Final Result [facility]
[address] [place] [address], * DUPLEX LOWER EXTREMITY ART/GRAFTS LEFT CAR - COR/REGI/MAD (07/24/2025 9:21 AM EDT) SHAFT REPAIRER Distal PSV-Left 55.22 cm/s SHAFT REPAIRER Distal EDV-Left 15.23 cm/s DFA Prox PSV-Left [...] Ant Tibial A Distal EDV-Left 5.80 cm/s TECHNICAL PRODUCT MANAGER Prox PSV-Left 0.00 cm/s TECHNICAL PRODUCT MANAGER Mid PSV-Left 0.00 cm/s TECHNICAL PRODUCT MANAGER Distal PSV-Left 0.00 cm/s Peroneal Mid PSV-Left 0.00 cm/s Left groin SHAFT REPAIRER sys 55.2 cm/sec Anatomical Region Laterality Modality [...] distal, Pop A proximal, Pop A distal, TECHNICAL PRODUCT MANAGER proximal, TECHNICAL PRODUCT MANAGER mid, TECHNICAL PRODUCT MANAGER distal, and Neelima A mid had absent [...] of2 resultswithin the time period is included. Pathologist [facility] HS Troponin T 23(H) <14 ng/L 07/24/2025 5:25 AM EDT [facility] Blood Venipuncture / Unknown 07/24/2025 4:45 AM EDT 07/24/2025 4:50 AM EDT Narrative [facility] - 07/24/2025 5:25 AM EDT High [...] ORDERABLES Final Re sult Performing Organization Address City/[facility]/ZIP Co de Phone Number [facility]
[address] [place] [address], * Lactic Acid, Plasma (07/24/2025 4:45 AM EDT) Only the most recent of2 resultswithin the time period is included. [facility] Lactate 0.6 0.5 - 2.0 mmol/L 07/24/2025 5:17 AM EDT [facility] Comment:Falsely depressed re sults may occur on samples drawn from patients receiving N-Acetylcysteine (NAC) or Metamizole. Blood Venipuncture / Unknown 07/24/2025 4:45 AM EDT 07/24/2025 4:50 AM EDT Amada Ibrahim MD LAB BLOOD ORDERABLES Final Re sult [facility]
[address] [place] [address], * (ABNORMAL) Hemoglobin A1c (07/24/2025 4:45 AM EDT) Pathologist [facility] Hemoglobin A1C 6.03(H) 4.80 - 5.60 % 07/24/2025 5:45 AM EDT [facility] Blood Venipuncture / Unknown 07/24/2025 4:45 AM EDT 07/24/2025 4:51 AM EDT Narrative [facility] - 07/24/2025 5:45 AM EDT Hemoglobin A1C Ranges: Increased Risk for Diabetes 5.7% to 6.4% Diabetes >= 6.5% Diabetic Goal < 7.0% Amada Ibrahim MD LAB BLOOD ORDERABLES Final Re sult Performing Organization Address [facility]/ZIP Co de Phone Number [facility]
[address] [place] [address], * CK (07/24/2025 4:45 AM EDT) [facility] Creatine Kinase 61 20 - 180 U/L 07/24/2025 5:25 AM EDT [facility] Blood Venipuncture / Unknown 07/24/2025 4:45 AM EDT 07/24/2025 4:50 AM EDT Amada Ibrahim MD LAB BLOOD ORDERABLES Final Re sult [facility]
[address] [place] [address], * Lipid Panel (07/24/2025 4:45 AM EDT) Pathologist [facility] Total Cholesterol 105 0 - 200 mg/dL 07/24/2025 5:25 AM EDT [facility] Triglycerides 65 0 - 150 mg/dL 07/24/2025 5:25 AM EDT [facility] HDL Cholesterol 50 40 - 60 mg/dL 07/24/2025 5:25 AM EDT [facility] LDL Cholesterol 41 0 - 100 mg/dL 07/24/2025 5:25 AM EDT [facility] VLDL Cholesterol 14 5 - 40 mg/dL 07/24/2025 5:25 AM EDT [facility] LDL/HDL Ratio 0.84 07/24/2025 5:25 AM EDT [facility] Blood Venipuncture / Unknown 07/24/2025 4:45 AM EDT 07/24/2025 4:50 AM EDT Narrative [facility] - 07/24/2025 5:25 AM EDT Cholesterol [...] MD LAB BLOOD ORDERABLES Final Re sult [facility]
[address] [place] [address], * CT Angiogram Lower Extremity Bilateral (07/23/2025 [...] MD 07/23/2025 11:58 PM EDT Workstation ID: [id number] Narrative 07/23/2025 11:[address] ANGIOGRAM [...] MD 07/23/2025 11:58 PM EDT Workstation ID: [id number] Amada Ibrahim MD IMG CT ORDERABLES Final Resul t * (ABNORMAL) High Sensitivity Troponin T 1Hr (07/23/2025 7:54 PM EDT) HS Troponin T 21(H) <14 ng/L 07/23/2025 8:19 PM EDT [facility] Troponin T Numeric Delta -5 ng/L 07/23/2025 8:19 PM EDT [facility] Troponin T % Delta -19 Abnormal if >/= 20% 07/23/2025 8:19 PM EDT [facility] Blood Venipuncture / Unknown 07/23/2025 7:54 PM EDT 07/23/2025 7:57 PM EDT Narrative [facility] - 07/23/2025 8:19 PM EDT High [...] MD LAB BLOOD ORDERABLES Ely l Result [facility]
[address] [place] [address], * CT Lower Extremity Left Without Contrast [...] DO 07/23/2025 8:07 PM EDT Workstation ID: [id number] Narrative 07/23/2025 8:[address] LOWER [...] DO 07/23/2025 8:07 PM EDT Workstation ID: [id number] Vipul Barney MD IMG CT ORDERABLES Final R esult * ECG [...] Referred By: ed Confirmed By: VIPUL BARNEY Procedure Note Vipul [...] MD 07/23/2025 6:13 PM EDT Workstation ID: [id number] Narrative 07/23/2025 6:13 PM EDT XR CHEST [...] MD 07/23/2025 6:13 PM EDT Workstation ID: [id number] Vipul Barney MD IMG DIAGNOSTIC IMAGING OR DERABLES Final Result * XR Foot 3+ View Left (07/23/2025 5:48 PM EDT) Anatomical Region Laterality Modality Lower Extremities, Foot Left Radiogra phic Imaging 07/23/2025 5:50 PM EDT Impressions 07/23/2025 5:52 PM EDT 1. No acute fracture or posttraumatic subluxation identified. Electronically Signed: Hay Saldana MD 07/23/2025 5:52 PM EDT Workstation ID: [id number] Narrative 07/23/2025 5:52 PM EDT XR FOOT [...] MD 07/23/2025 5:52 PM EDT Workstation ID: [id number] Vipul Barney MD IM DIAGNOSTIC IMAGING OR DERABLES Final Result * Blood Culture - Blood, Arm, Left (07/23/2025 5:45 PM EDT) Only the most recent of2 resultswithin the time period is included. Blood Culture No growth at 5 days 07/28/2025 7:46 PM EDT [facility] Blood Structure of left upper limb / Unknown Venipuncture / Unknown 07/23/2025 5:45 PM EDT 07/23/2025 7:44 PM EDT Narrative [facility] - 07/28/2025 7:46 PM EDT Less than seven (7) mL's of blood was collected. Insufficient quantity may yield false negative results. Vipul Barney MD MICROBIOLOGY - GENERAL OR DERABLES Final Result [facility]
[address] [place] [address], from Last 3 Months Additional Health Concerns Infection Onset Date Last Indicated MRSA 07/24/2025 07/24/2025 Insurance MEDICARE ADVANTAGE PPO Advance Directives * CPR [...] Of Support Discussed With: Patient Care Teams Lead Case Manager Relationship Specialty Start Date End Date Alexis Montanez MD [address] [facility] [address] [facility] [address] [place] [address] PCP - General Family Medicine 07/23/25
--- OUTSIDE RECORDS SUMMARY | 2025-09-16 21:13 | XMS_ITS | Encounter Summary ---
[facility] Address [address] [place] [address] Care Team Providers Care Event Security Officer Name Role Phone Alexis Montanez MD Primary Care Provider [phone] Encounter Details Date Type Department Care Team (Late st Contact Info) Description 07/26/2025 Readmission Management [facility] [address] [place] [phone] Sienna Sheridan Social History Tobacco Use Types Packs/Day Years Used Date Smoking Tobacco: Never Smokeless Tobacco: Never Alcohol Use Standard Drinks/Week Comments Never 0 (1 standard drink = 0.6 oz pur e alcohol) [facility] Utilities Answer Date Recorded In the past 12 months has [employer], gas, oil, or water [employer] threatened to shut off services in your [...] care, and heating? Not very hard 07/24/2025 [place] [facility] Occup[facility] ional Health - Occupational Stress [...] GED or equivalent No 07/24/2025 Preferred Language Croatian 07/24/2025 PHQ-2 Answer Date Recorded Patient Health Questionnaire-2 Score 0 07/24/2025 Comments Unknown Sex and Gender Information Value Date Recorded Sex Assigned at Not on file Legal Sex Female 4:32 PM EDT Gender Identity Not on file Sexual Orientation Not on file documented as of this encounter Miscellaneous Notes * Outreach Note - iSenna Sheridan - 07/26/2025 6:45 AM EDT Prep Survey Flowsheet Row Responses [facility] facility patient discharged from? [place] Is LACE score less than 10 ? No Eligibility Readm Mgmt Discharge diagnosis Critical limb ischemia of left lower extremity Does the patient have one of the following disease processes/diagnoses(primary or secondary)? Other Does the patient have Home health ordered? No Is there a DME ordered? No Prep survey completed? Yes Sienna Bennett - Coordinator documented in this encounter Plan of Treatment Not on file documented as of this encounter Visit Diagnoses Not on filedocumented in this encounter Additional Health Concerns Infection Onset Date Last Indicated Resolved Time MRSA 07/24/2025 07/24/2025 documented as of this encounter Care Teams Event Security Officer Relationship Specialty Start Date End Date Alexis Montanez MD [facility] [address] [place] [address] PCP - General Family Medicine 07/23/25 documented as of this encounter
--- OUTSIDE RECORDS SUMMARY | 2025-09-16 21:13 | XMS_ITS | Encounter Summary ---
[facility] Address [address] [place] [address] Care Team Providers Care Supervisor Publications Name Role Phone Alexis Montanez MD Primary Care Provider [phone] Encounter Details Date Type Department Care Team (Late st Contact Info) Description 08/01/2025 Readmission Management [facility] [address] [place] [phone] Carmelita Sparks, RN Social History Tobacco [...] and heating? Patient unable to answer 08/01/2025 [facility] [place] of Occupat ional Health - Occupational Stress [...] the past 12 months has th e [employer], gas, oil, or water [email or web address] threatened to shut off services in your [...] Medical Week 1 Survey Flowsheet Row Responses [facility] Does the patient have one of the following disease processes/diagnoses(primary or secondary)? Other Week 1 attempt successful? No Unsuccessful attempts Attempt 2 Revoke Readmitted [pt has been readmitted to [facility]] Carmelita Guido - Registered Nurse documented in this encounter Plan of Treatment Not on file documented as of this encounter Visit Diagnoses Not on filedocumented in this encounter Additional Health Concerns Infection Onset Date Last Indicated Resolved Time MRSA 07/24/2025 07/24/2025 documented as of this encounter Care Teams Supervisor Publications Relationship Specialty Start Date End Date Alexis Montanez MD [address] [facility] [address] [place] [address] PCP - General Family Medicine 07/23/25 documented as of this encounter
--- OUTSIDE RECORDS SUMMARY | 2025-09-16 21:14 | XMS_ITS | Encounter Summary ---
[facility] [address] [place] [address] Care Team Providers Care Supervisor Plasma Name Role Phone Alexis Montanez MD Primary Care Provider [phone] Encounter Details Date Type Department Care Team (Late st Contact Info) Description 09/09/2025 Readmission Management [facility] [address] [place] [phone] Elvia Méndez, RN Social History Tobacco Use Types Packs/Day [...] and heating? Patient unable to answer 08/01/2025 [facility] of Occupat ional Health - Occupational Stress [...] daily living? Patient unable to answer 08/01/2025 [facility] Utilities Answer Date Recorded In the past 12 months has [facility], gas, oil, or water [employer] threatened to shut off services in your [...] encounter Miscellaneous Notes * Outreach Note - Elvia Méndez RN - 09/09/2025 4:42 PM EST Medical Week 2 Survey Flowsheet Row Responses [facility] Does the patient have one of the following disease processes/diagnoses(primary or secondary)? Other Week 2 attempt successful? No Unsuccessful attempts Attempt 1 ELVIA Preston - Registered Nurse documented in this encounter Plan of Treatment Not on file documented as of this encounter Visit Diagnoses Not on filedocumented in this encounter Additional Health Concerns Infection Onset Date Last Indicated Resolved Time MRSA 07/24/2025 07/24/2025 documented as of this encounter Care Teams Supervisor Plasma Relationship Specialty Start Date End Date Alexis Montanez MD [address] [place] [address] PCP - General Family Medicine 07/23/25 documented as of this encounter
--- OUTSIDE RECORDS SUMMARY | 2025-09-16 21:14 | XMS_ITS | Encounter Summary ---
Author Organization [facility] Address [address] [place] [address] Care Team Providers Care Cook 3 Pastry Name Role Phone Alexis Montanez MD Primary Care Provider [phone] Encounter Details Date Type Department Care Team [...] and heating? Patient unable to answer 08/01/2025 [place] of Occupat ional [facility] - Occupational Stress Questionnaire Answer Date [...] living? Patient unable to answer 08/01/2025 [facility] Utilities Answer Date Recorded In the [...] Patient unable to answer 08/22/2025 Preferred Language Cuban 08/22/2025 PHQ-2 Answer Date Recorded Patient Health [...] 08/23/2025 9:26 AM Ana Bernal RN * [place] Suicide Severity Rating Scale (Screener/Recent Self-Report) Question [...] documented as of this encounter Care Teams Cook 3 Pastry Relationship Specialty Start Date End Date Alexis Montanez MD [address] [place] [address] [place] [address] PCP - General Family Medicine 07/23/25 documented as of this encounter
--- OUTSIDE RECORDS SUMMARY | 2025-09-16 21:14 | XMS_ITS | Encounter Summary ---
[facility] Address [address] [place] [address] Care Team Providers Care Arnp Name Role Phone Alexis Montanez MD Primary Care Provider [phone] Encounter Details Date Type Department Care Team (Latest Contact Info) Description 07/23/2025 Travel Social History Tobacco Use Types Packs/Day Years Used Date Smoking Tobacco: Never Assessed [facility] Utilities Answer Date Recorded In the past 12 months has [employer], gas, oil, or water company threatened [...] care, and heating? Not very hard 07/24/2025 [facility] [place] of Occupat ional Health - Occupational Stress [...] GED or equivalent No 07/24/2025 Preferred Language Canadian 07/24/2025 PHQ-2 Answer Date Recorded Patient Health [...] 6:15 PM EDT Neda Fitzpatrick, BRAVO * [place] Suicide Severity Rating Scale (Screener/Recent Self-Report) Question Answer Date of Assessment Author 1. Wish to be (Past 1 Month) No 025 6:15 PM EDT Neda Fitzpatrick, BRAVO 2. Non-Specific Active Suici [place] Thoughts (Past 1 Month) No 07/23/2025 6:15 PM EDT Neda Fitzpatrick , BRAVO 6. Suicidal Behavior (Lifetime) No 6:15 PM EDT Neda Fitzpatrick RN documented as of this encounter Plan of Treatment Not on file documented as of this encounter Visit Diagnoses Not on filedocumented in this encounter Care Teams Arnp Relationship Specialty Start Date End Date Alexis Montanez MD [address] [facility] [address] [place] [address] PCP - General Family Medicine 07/23/25 documented as of this encounter
--- OUTSIDE RECORDS SUMMARY | 2025-09-16 21:15 | XMS_ITS | Encounter Summary ---
Author Organization [facility] Address [address] [place] [address] Care Team Providers Care Magnetic Prospecting Operator Name Role Phone Alexis Montanez MD Primary Care Provider [phone] Encounter Details Date Type Department Care Team [...] and heating? Patient unable to answer 08/01/2025 [place] of Occupat ional [facility] - Occupational Stress Questionnaire Answer Date [...] Patient unable to answer 08/22/2025 Preferred Language Swedish 08/22/2025 PHQ-2 Answer Date Recorded Patient Health [...] documented as of this encounter Care Teams Magnetic Prospecting Operator Relationship Specialty Start Date End Date Alexis Montanez MD [address] [facility] [address] [facility] [address] [place] [address] PCP - General Family Medicine 07/23/25 documented as of this encounter
[2025-09-16 21:25] LABS: Alanine Aminotransferase 14 U/L (12-78); Albumin Level 3.4 g/dl (3.5-5.0); Albumin/Globulin Ratio 1.0 (1.1-1.8); Alkaline Phosphatase 91 U/L (38-126); Anion Gap 8.6 mEq/L (5-15); Aspartate Amino Transferase 23 U/L (14-36); Bilirubin,Total 0.4 mg/dl (0.2-1.3); Blood Urea Nitrogen 13 mg/dl (7-17); Calcium 9.1 mg/dl (8.4-10.2); Carbon Dioxide 26 mmol/L (22.0-30.0); Chloride 103 mmol/L (98-107); Creatinine Clearance Estimated 29 mL/min (50-200); Creatinine,Serum 0.60 mg/dl (0.52-1.04); Estimated Glomerular Filt Rate 95 ml/min (>60); GFR (African American) 115 ML/MIN (>60); Globulin 3.5 g/dL (1.3-3.2); Glucose 108 mg/dl (74-100); Lipase 23 U/L (23-300); Potassium 3.6 mmoL/L (3.5-5.1); Sodium 134 mmol/L (136-145); Total Protein,Serum 6.9 g/dl (6.3-8.2)
[2025-09-16] MEDS: IOPAMIDOL-370 (76%);100ML BOTTLE 75 ML IV (21:36)
[2025-09-16] MEDS: SODIUM CHLORIDE 0.9% 10ML SYR (RAD ONLY) 10 ML IV (21:36)
[2025-09-16] MEDS: HYDROMORPHONE 2MG/ML SYRINGE 0.5 MG IV (23:45)
[2025-09-17] VITALS (13 sets, daily range): BP systolic 134–162; BP diastolic 54–80; PULSE 77–106; RESP 16–20; TEMP 36.7–37.2; O2SAT 96–98; BMI 18.9
--- NOTE | 2025-09-17 01:17 | PC.NURSE ---
Patient arrived to floor via stretcher from ED at 01:14.
--- NOTE | 2025-09-17 02:14 | PC.WOUNDNOTE ---
Open wound on bottom Discoloration in between toe. Discoloration on great toe.
--- NOTE | 2025-09-17 02:18 | PC.WOUNDNOTE ---
Discoloration on right heel WOUND TO LEFT GROIN
[2025-09-17] MEDS: 0.9 % SODIUM CHLORIDE 1000ML 1,000 ML 75 ML IV ×2 (02:32→16:48)
--- NOTE | 2025-09-17 05:34 | P.HP_ITS ---
<Statement entered by Wan Cameron MD - 09/24/25 15:55> Agree with plan of care as outlined by the [facility]. History of Present Illness *Admission Date: 09/17/25 *Reason for visit:: Constipation *History of present illness: Patient is an 85-year-old female past history significant for dementia, 2 diabetes mellitus, HTN, HLD, CAD, PAF on chronic anticoagulation with Eliquis, chronic CHF, BKA, Stephens catheter present. Patient presents to [facility] due to constipation with poor oral intake. Granddaughter at bedside providing history due to patient's underlying dementia. She reports patient lives at home and is assisted by herself and her mother. Noted patient to have dementia but significantly exacerbated after undergoing BKA. Patient developed wound pressure ulcer to her coccyx in which x-ray was ordered for evaluation. Incidental finding of soft ball sized stool burden. Granddaughter noted after this finding they tried multiple enema, Colace without any success. She also noted a decrease in oral intake since BKA procedure. CT obtained within our ED revealing a large amount of stool in the rectum with perirectal inflammation changes. ED provider spoke to our on-call surgical team due to findings prior to treatment. It was noted surgery agreed with admission and initial treatment with enema in hopes to relieve fecal impaction. Granddaughter noted the large stool burden was removed after enema. Patient transferred to [facility] for further evaluation and treatment. Granddaughter denies any known fevers, chills, nausea, vomiting, abdominal pain. Initial ED workup included laboratory studies and imaging as noted above. Significant laboratory findings noted WBC 11.8, sodium 134, glucose 108, albumin 3.4. Imaging study CT abdomen pelvis obtained in which I reviewed revealing l arge amount of stool in the rectum, fecal impaction and perirectal inflammatory changes. Suspected stercoral colitis. Upon assessment of patient at bedside she is without acute distress, hemodynamically stable. [facility] Disclaimer: The information contained in this section may have been updated after the patient was seen, as this information can be updated by other users. Medical History (Updated 09/17/25 @ 06:21 by Matilda Coombs APRN) Ischemic pain of left foot Pain in right lower leg CHF (congestive heart failure) Asthma Abnormal ankle brachial index (MICHELE) Abnormal electrocardiography Absence of posterior tibial pulse Anxiety Atrial fibrillation with rapid ventricular response Body mass index (BMI) of 25.0 to 29.9 Callus of foot Chronic obstructive pulmonary disease Coronary artery disease Diabetes mellitus Diabetic foot Diastolic dysfunction Dry gangrene Dystrophia unguium Heart murmur Hyperlipidemia Hypertension Infection of left foot Intermittent claudication Ischemia of lower extremity Keratosis Left bundle branch block (LBBB) determined by electrocardiography Leg wound, right skilled nursing current use of anticoagulant therapy Mitral valve insufficiency Onychogryposis Osteomyelitis of toe Osteopenia determined by x-ray Paroxysmal atrial fibrillation Peripheral arterial disease Pneumonia Pre-syncope Presence of cardiac pacemaker Primary osteoarthritis of both feet Pulmonary hypertension Rapid atrial fibrillation Skin ulcer of second toe of left foot with fat layer exposed Systemic inflammatory response syndrome (SIRS) Tachycardia-bradycardia Ulcer of left great toe due to diabetes mellitus Acquired hammer toes of both feet Ulcer of right fifth toe due to diabetes mellitus Intracranial arteriosclerosis Pneumonia UTI (urinary tract infection) Memory loss Abnormal findings on diagnostic imaging of heart and coronary circulation Chronic HFrEF (heart failure with reduced ejection fraction) Amputated toe of right foot Cellulitis Fracture of cuneiform bone of foot Acquired pes planus of right foot Osteomyelitis of toe of right foot Postoperative wound dehiscence Charcot's joint of right foot Postoperative dehiscence of skin wound Gangrene of toe Gangrene of toe of right foot Cough Ischemic ulcer of toe of right foot, limited to breakdown of skin Ischemic ulcer of toe of right foot Real time reverse transcriptase PCR positive for COVID-19 virus Peripheral vascular disease of lower extremity Pre-ulcerative calluses Pneumonia Claudication Peripheral arterial disease Abnormal ankle brachial index (MICHELE) Cardiac pacemaker in situ Acute bronchitis Left bundle branch block (LBBB) on electrocardiogram Tachy-jose francisco syndrome Near syncope Elevated blood pressure reading Anxiety Diabetic foot Keratosis Callus of foot Diabetic ulcer of right fifth toe Dry gangrene Skin ulcer of second toe of left foot with fat layer exposed Ulcer of left great toe due to diabetes mellitus Primary osteoarthritis of both feet Encounter for wound care Overweight (BMI 25.0-29.9) Type 2 diabetes mellitus without complication, without long-term current use of insulin Acquired hammertoes of both feet Osteomyelitis of toe Left foot infection Nail dystrophy Onychogryphosis Lower limb ischemia PAF (paroxysmal atrial fibrillation) Claudication PAD (peripheral artery disease) Leg wound, right Leg edema, right COPD (chronic obstructive pulmonary disease) Hyperlipemia HTN (hypertension) Diabetes mellitus Rapid atrial fibrillation Pulmonary HTN Diastolic dysfunction Mitral regurgitation long term care pharmacist current use of anticoagulant therapy A-fib Abnormal ECG Fatigue Dyspnea CAD (coronary artery disease) Atrial fibrillation with RVR Asthma with exacerbation Acute exacerbation of chronic obstructive airways disease Surgical History Hx of BKA History of amputation of toe History of tubal ligation History of nasal surgery S/P peripheral artery angioplasty with stent placement Status post placement of cardiac pacemaker S/P amputation of lesser toe History of complete ray amputation of fourth toe of right foot History of complete ray amputation of third toe of right foot Status post foot surgery Status post placement of cardiac pacemaker S/P peripheral artery angioplasty with stent placement Family History Other Coronary artery disease Diabetes Heart attack Social History Smoking Status: Never smoker alcohol intake: never substance use type: denies use current occupational status: retired Travel in the last 8 weeks?: [place] the [place] household members: none housing: house current occupation: Works at [employer] current occupational exposures/hazards: No caffeine: Yes Have you lived/traveled outside [place] in past 30 days?: No Contact w/someone who lives/traveled outside US past 30 days?: No Exposure to someone with infectious disease in past 14 days?: No Do you have a fever (greater than 100.4 F or 38 C)?: No Have you tested positive for COVID-19?: No Exposed to someone with COVID-19 in past 14 days?: No Do you have a sore throat?: No Do you have a cough?: No Do you have any weakness?: No Do you have any diarrhea?: No Are you experiencing any unusual bleeding?: No Do you have any muscle aches/pain?: No Do you have any abdominal pain?: No Are you experiencing loss of taste or smell?: No Other Medical History Have you received the Flu Vaccine for this season: No Have you received the Pneumonia Vaccine: No Review of Systems Review of Systems Review of systems:: pertinent systems reviewed and negative unless documented below Constitutional Constitutional: Reports as per HPI and Reports poor appetite Eyes Eyes: Reports as per HPI ENT Ears, Nose, Mouth, and Throat: Reports system reviewed and no additional complaints, except as documented and Reports as per HPI *Cardiovascular Cardiovascular: Reports system reviewed and no additional complaints, except as documented and Reports as per HPI *Respiratory Respiratory: Reports system reviewed and no additional complaints, except as documented and Reports as per HPI *Gastrointestinal Gastrointestinal: Reports as per HPI and Reports change in stool character Comments: Constipation *Genitourinary Genitourinary: Reports system reviewed and no additional complaints, except as documented and Reports as per HPI *Musculoskeletal Musculoskeletal: Reports as per HPI Comments: Right BKA Integumentary/Breasts Skin/Breast: Reports system reviewed and no additional complaints, except as documented *Neurologic Neurologic: Reports as per HPI Comments: Underlying dementia present Psychiatric Psychiatric: Reports system reviewed and no additional complaints, except as documented and Reports as per HPI Endocrine Endocrine: Reports system reviewed and no additional complaints, except as documented and Reports as per HPI Hematologic/Lymphatic Hematologic/Lymphatic: Reports system reviewed and no additional complaints, except as documented and Reports as per HPI Allergic/Immunologic Allergic/Immunologic: Reports system reviewed and no additional complaints, except as documented and Reports as per HPI Meds Home Medications and Allergies Home Medications ?Medication ?Instructions ?Recorded ?Confirmed ?Type pravastatin 40 mg tablet 40 mg PO HS 03/31/18 5 History budesonide-formoterol HFA 160 2 puffs inhalation BID 1 09/17/25 History mcg-4.5 mcg/actuation aerosol inhaler (Symbicort) apixaban 2.5 mg tablet (Eliquis) 2.5 mg PO BID 5 09/17/25 History clopidogrel 75 mg tablet 75 mg PO DAILY 01/31/2512/11 History digoxin 125 mcg (0.125 mg) tablet 125 mcg PO DAILY #90 tabs 04/30/25 09/17/25 Rx gabapentin 300 mg capsule 300 mg PO BID 07/02/2509/17 History hydrocodone 5 mg-acetaminophen 325 1 tab PO QID PRN Pa in (Scale Score 09/17/25 09/17/25 History mg tablet 4-6) memantine 5 mg tablet 5 mg PO DAILY 09/17/2509/17 History quetiapine 25 mg tablet 12.5 mg PO HS PRN Sleep 12/1109/17/25 History tamsulosin 0.4 mg capsule 0.4 mg PO DAILY 09/17/2512/11 History New Prescriptions to Start Prescriptions: Allergies Allergy/AdvReac Type Severity Reaction Status Date / Time codeine (CODEINE) Allergy Unknown Unknown Verified 07/15/25 09:03 allergy reaction morphine Allergy Unknown Unknown Verified 07/15/25 09:03 allergy reaction alprazolam (From Xanax) Allergy Unknown Verified 09/17/25 01:39 allergy reaction Sulfa (Sulfonamide Allergy Unknown Verified 09/17/25 01:39 Antibiotics) allergy reaction fentanyl AdvReac Mild behavior Verified 07/15/25 09:03 changes diphenhydramine (From AdvReac Agitated Verified 07/15/25 09:03 Benadryl) doxycycline AdvReac Nausea Verified 07/15/25 09:03 Exam Data for Last 24 hours Vital signs and Labs for Last 24 Hours: Temp Pulse Resp BP Pulse Ox O2 Del Method 98.8 F 87 16 160/80 H 96 Room Air 09/17/25 01:14 09/17/25 01:14 09/17/25 01:14 09/17/25 01:14 09/17/25 01:14 09/17/25 05:00 Laboratory Results - last 24 hr 09/16/25 21:00: WBC 11.8 H, RBC 3.82 L, Hgb 10.4 L, Hct 34.2 L, MCV 89.5, MCH 27.2, MCHC 30.4 L, RDW 14.9, Plt Count 428 H, MPV 9.0, Neut % (Auto) 66.2, Lymph % (Auto) 20.9, [place] % (Auto) 7.4, Eos % (Auto) 4.8, Baso % (Auto) 0.3, Neut # (Auto) 7.8, Lymph # (Auto) 2.5, [place] # (Auto) 0.9, Eos # (Auto) 0.6 H, Baso # (Auto) 0.0, Sodium 134 L, Potassium 3.6, Chloride 103, Carbon Dioxide 26, Anion Gap 8.6, BUN 13, Creatinine 0.60, Estimated Creat Clear 29, Estimated GFR 95, Est GFR ( Amer) 115, Glucose 108 H, Lactate 1.1, Calcium 9.1, Total Bilirubin 0.4, AST 23, ALT 14, Alkaline Phosphatase 91, Total Protein 6.9, Albumin 3.4 L, Globulin 3.5 H, Albumin/Globulin Ratio 1.0 L, Lipase 23 I & O for Last 24 hours: Intake & Output 09/14/25 09/15/25 09/16/25 09/17/25 23:59 23:59 23:59 23:59 Weight 44.452 kg 42.592 kg Constitutional Constitutional: no acute distress *Routine HEENT Exam Head: Present normocephalic and atraumatic Eye: Present EOMI, PERRL and normal accommodation ENT: Present mucous membranes dry *Routine Neck Exam Neck: Present supple and full ROM *Routine Respiratory Exam Respiratory: Present normal respiratory effort *Routine Cardiovascular Exam Cardiovascular: Present RRR, Normal S1 and Normal S2 *Routine Abdominal Exam Abdominal: Present soft and normoactive bowel sounds *Routine Rectal Exam Rectal:: deferred *Routine Genitalia Exam Genitalia:: deferred *Routine Extremities Exam Extremities: Present full ROM, pulses intact and normal capillary refill *Routine Skin Exam Skin: Present wounds Comments: Coccyx pressure ulcer and left lower extremity wound toes *Routine Neurological Exam Neurological: Present alert and altered mental status Comments: Dementia present. Alert to self only. Routine Psychiatric Exam Psychiatric: Present unable to assess Assessment and Plan *Assessment and plan (1) Stercoral colitis: Status: Acute Category: Medical Code(s): K52.89 - Other specified noninfective gastroenteritis and colitis (2) Fecal impaction: Status: Acute Category: Medical Code(s): K56.41 - Fecal impaction (3) Poor fluid intake: Status: Acute Category: Medical Code(s): R63.8 - Other symptoms and signs concerning food and fluid intake (4) skilled nursing current use of anticoagulant therapy: Status: Acute Category: Medical Code(s): Z79.01 - long term care pharmacist (current) use of anticoagulants (5) Below-knee amputation of left lower extremity: Status: Acute Qualifiers: Encounter type: initial encounter Qualified Code(s): S88.112A - Complete traumatic amputation at level between knee and ankle, left lower leg, initial encounter Category: Medical Code(s): S88.112A - Complete traumatic amputation at level between knee and ankle, left lower leg, initial encounter (6) Type 2 diabetes mellitus: Status: Acute Qualifiers: Diabetes mellitus snf insulin use: without snf use Diabetes mellitus complication status: with hyperglycemia Qualified Code(s): E11.65 - Type 2 diabetes mellitus with hyperglycemia Category: Medical Code(s): E11.9 - Type 2 diabetes mellitus without complications (7) Paroxysmal atrial fibrillation: Status: Acute Category: Medical Code(s): I48.0 - Paroxysmal atrial fibrillation (8) Hyperlipemia: Status: Acute Qualifiers: Hyperlipidemia type: mixed hyperlipidemia Qualified Code(s): E78.2 - Mixed hyperlipidemia Category: Medical Code(s): E78.5 - Hyperlipidemia, unspecified (9) HTN (hypertension): Status: Acute Qualifiers: Hypertension type: essential hypertension Qualified Code(s): I10 - Essential (primary) hypertension Category: Medical Code(s): I10 - Essential (primary) hypertension (10) Stephens catheter in place on admission: Status: Acute Category: Medical Code(s): Z97.8 - Presence of other specified devices (11) Urinary retention: Status: Acute Category: Medical Code(s): R33.9 - Retention of urine, unspecified (12) Pressure ulcer of coccygeal region: Status: Acute Qualifiers: Pressure injury stage: unstageable Qualified Code(s): L89.150 - Pressure ulcer of sacral region, unstageable Category: Medical Code(s): L89.159 - Pressure ulcer of sacral region, unspecified stage (13) Dementia: Status: Acute Qualifiers: Dementia type: unspecified type Dementia severity: unspecified severity Dementia behavioral or psychological symptom: without behavioral, psychotic, or mood disturbance or anxiety Qualified Code(s): F03.90 - Unspecified dementia, unspecified severity, without behavioral disturbance, psychotic disturbance, mood disturbance, and anxiety Category: Medical Code(s): F03.90 - Unspecified dementia, unspecified severity, without behavioral di sturbance, psychotic disturbance, mood disturbance, and anxiety Plan Assessment/plan: Patient discussed with the emergency department and agree for admission with further treatment and evaluation. Patient is a 85-year-old female presents to the emergency department with constipation. Imaging study as noted above suggestive of large fecal burden, fecal impaction suggestive of stecoral colitis. Dementia present, alert to self only. Granddaughter at bedside endorsing poor fluid/nutritional intake since undergoing BKA procedure. Home x- ray incidentally finding stool burden. Constipation relief measures at home daily with enema and Colace. ED provider discussed case with on-call surgical team who reviewed imaging and agreed with enema initial treatment. Successful decompression noted in the emergency department with large stool burden removed. Bowel regimen to be initiated, gentle IV fluids due to poor oral intake. Monitor intake output. Follow morning labs. 1. Stercoral colitis/fecal impaction: Imaging study as noted above with evidence of large fecal burden, stercoral colitis. Recent BKA prescribed narcotic for surgical pain. Poor oral intake since procedure. Failed measures to relieve constipation at home. ED provider as noted above discussed findings with Dr. Dockery with agreement with plan to disimpact, initial treatment with enema. Successful large stool burden removed. Will continue with bowel regimen, MiraLAX and Senokot with as needed enema. Gentle IV fluids due to poor oral intake. Monitor closely due to history of congestive heart failure. Clear liquid diet advance as tolerated. Follow a.m. labs. 2. Chronic HFrEF/history of atrial fibrillation/HTN/HLD/chronic anticoagulation: Resume home medication regime, digoxin 125 mcg daily, pravastatin 40 mg, clopidogrel 75 mg daily and chronically anticoagulated with Eliquis 2.5 mg twice daily. Gentle IV fluids as noted above, monitor for any si gns of hypervolemia- not currently diuretics. Digoxin level requested morning labs along with coag baseline. 3. DM2: Medication resumed currently without antihyperglycemic medication. Noted BKA due to progressive diabetic foot wounds ultimately leading to BKA this past July. Podiatry also following due to right foot wounds. Insulin sliding scale placed with Accu-Cheks ACHS to monitor. 4. Dementia/ memory loss: Granddaughter noted at baseline patient alert to self only. Reports symptoms have significantly progressed since her BKA procedure. Resume home medication. 6. Pressure ulcer of the coccyx region: Continue to monitor closely, avoid pressure to pressure points in coccyx. Keep wound clean dry and intact. Wound consult placed for evaluation while inpatient. 7. Stephens catheter present/urinary retention: Patient with Stephens catheter due to urinary retention status post surgical procedure BKA-patient following with urology. Follow-up ointment was today but due to noted acute symptoms patient will be missing appointment. Resume medication for urinary retention. Full code Clear liquid diet DVT prophylaxis with Eliquis
[2025-09-17 06:01] LABS: POC Glucose,Bedside 86 gm/dL (70-110)
[2025-09-17 06:20] LABS: Hematocrit 29.7 % (37.0-47.0); Immature Granulocytes % 0.4 %; Mean Corpuscular HGB Conc 29.3 g/dL (31.8-35.4); Mean Corpuscular Hemoglobin 26.5 pg (27.0-31.2); Mean Corpuscular Volume 90.5 fl (81-99); Nucleated Red Blood Cells % 0 %; Platelet Count 366 K/mm3 (142-424); Red Blood Count 3.28 M/mm3 (4.20-5.40); Red Cell Distribution Width-SD 49.5 fL; White Blood Count 10.4 K/mm3 (4.8-10.8)
[2025-09-17 06:29] LABS: Chloride 105 mmol/L (98-107); Hemoglobin 9.0 g/dL (12.2-16.2); Potassium 3.6 mmoL/L (3.5-5.1); Sodium 137 mmol/L (136-145)
[2025-09-17 06:31] LABS: INR 1.10 (0.9-1.1); Prothrombin Time 12.1 seconds (10.1-12.5)
[2025-09-17 06:32] LABS: Blood Urea Nitrogen 11 mg/dl (7-17); Creatinine Clearance Estimated 28 mL/min (50-200); Creatinine,Serum 0.50 mg/dl (0.52-1.04); Estimated Glomerular Filt Rate 118 ml/min (>60); GFR (African American) 142 ML/MIN (>60)
[2025-09-17 06:33] LABS: Anion Gap 11.6 mEq/L (5-15); Calcium 7.8 mg/dl (8.4-10.2); Carbon Dioxide 24 mmol/L (22.0-30.0); Glucose 75 mg/dl (74-100)
[2025-09-17 07:08] LABS: Digoxin 0.70 ng/ml (0.2-2.00)
--- NOTE | 2025-09-17 08:02 | HMH.PHAINT1 ---
Pharmacy Intervention Comments: Home medication list verified using list from outpatient pharmacy and pt interview with nursing
--- NOTE | 2025-09-17 08:31 | SW/DCPLANNER ---
I spoke w/ patient's daughter this AM regarding plans once medically stable for discharge. Per daughter patient resides at home and family is w/ patient 24-7. Daughter stated that she is currently established w/ home health services (daughter thinks [facility]) and they do plan to return home w/ home health. PT/OT has been ordered to evaluate patient this AM. Discharge date is unknown at this time. CM will continue to follow up.
[2025-09-17] MEDS: MEMANTINE 10MG TABLET 5 MG PO (08:41)
[2025-09-17] MEDS: APIXABAN 5MG TABLET 2.5 MG PO ×2 (08:41→20:34)
[2025-09-17] MEDS: CLOPIDOGREL 75MG TAB 75 MG PO (08:41)
[2025-09-17] MEDS: SENNOSIDES 8.6MG/DOCUSATE 50MG TABLET 1 TAB PO (08:41)
[2025-09-17] MEDS: GABAPENTIN 300MG CAPSULE 300 MG PO ×2 (08:41→20:34)
[2025-09-17] MEDS: POLYETHYLENE GLYCOL 3350 17 GM PACKET PO ×2 (08:41→20:34)
--- NOTE | 2025-09-17 08:41 | EXP.PN ---
Subjective *Date: 09/17/25 *Time: 12:25 Interval history: Patient states she did not sleep any last night. She states her bottom really hurts. She is anxious about further manual stool removal. She denies chest pain and shortness of breath. Posteriorly labs this morning show white blood cell count of 2400 with a hemoglobin of 9 and hematocrit of 29.7. Blood chemistries show normal electrolytes with a BUN of 11 and creatinine of 0.5. Exam Data for Last 24 hours Vital signs and Labs for Last 24 Hours: Temp Pulse Resp BP Pulse Ox O2 Del Method 98.3 F 83 16 134/69 97 Room Air 09/17/25 04:00 09/17/25 04:00 09/17/25 04:00 09/17/25 04:00 09/17/25 04:00 09/17/25 08:00 Laboratory Results - last 24 hr 09/16/25 21:00: WBC 11.8 H, RBC 3.82 L, Hgb 10.4 L, Hct 34.2 L, MCV 89.5, MCH 27.2, MCHC 30.4 L, RDW 14.9, Plt Count 428 H, MPV 9.0, Neut % (Auto) 66.2, Lymph % (Auto) 20.9, [place] % (Auto) 7.4, Eos % (Auto) 4.8, Baso % (Auto) 0.3, Neut # (Auto) 7.8, Lymph # (Auto) 2.5, [place] # (Auto) 0.9, Eos # (Auto) 0.6 H, Baso # (Auto) 0.0, Sodium 134 L, Potassium 3.6, Chloride 103, Carbon Dioxide 26, Anion Gap 8.6, BUN 13, Creatinine 0.60, Estimated Creat Clear 29, Estimated GFR 95, Est GFR ( Amer) 115, Glucose 108 H, Lactate 1.1, Calcium 9.1, Total Bilirubin 0.4, AST 23, ALT 14, Alkaline Phosphatase 91, Total Protein 6.9, Albumin 3.4 L, Globulin 3.5 H, Albumin/Globulin Ratio 1.0 L, Lipase 23 09/17/25 05:54: POC Glucose 86 09/17/25 05:55: WBC 10.4, RBC 3.28 L, Hgb 9.0 L D, Hct 29.7 L, MCV 90.5, MCH 26.5 L, MCHC 29.3 L, RDW 14.9, Plt Count 366, MPV 9.0, Neut % (Auto) 56.4, Lymph % (Auto) 29.6, [place] % (Auto) 8.5, Eos % (Auto) 4.5, Baso % (Auto) 0.6, Neut # (Auto) 5.9, Lymph # (Auto) 3.1, [place] # (Auto) 0.9, Eos # (Auto) 0.5 H, Baso # (Auto) 0.1, PT 12.1, INR 1.10, Sodium 137, Potassium 3.6, Chloride 105, Carbon Dioxide 24, Anion Gap 11.6, BUN 11, Creatinine 0.50 L, Estimated Creat Clear 28, Estimated GFR 118, Est GFR ( Amer) 142 D, Glucose 75 D, Calcium 7.8 L, Digoxin 0.70 I & O for Last 24 hours: Intake & Output 09/14/25 09/15/25 09/16/25 09/17/25 11:59 11:59 11:59 11:59 Output Total 400 / 400 Balance -400 / -400 Weight 93 lb 14.4 oz Constitutional Constitutional: no acute distress Comments: Cries whenever touched. Anxious. *Routine Respiratory Exam Respiratory: Present decreased breath sounds (Posteriorly with scattered crackles) *Routine Cardiovascular Exam Cardiovascular: Present irregular rhythm *Routine Abdominal Exam Abdominal: Present soft and normoactive bowel sounds; Absent tenderness *Routine Rectal Exam Patient deferred: visual exam Visual: Present black stool *Routine Extremities Exam Extremities: Present edema (Trace in left lower extremity) Comments: Right BKA with clean dry Carlos dressing wrap *Routine Skin Exam Comments: 1 cm open area on sacrum *Routine Neurological Exam Neurological: Present alert Comments: Difficult to determine orientation Assessment and Plan *Assessment and plan (1) Stercoral colitis: Status: Acute Category: Medical Code(s): K52.89 - Other specified noninfective gastroenteritis and colitis (2) Fecal impaction: Status: Acute Category: Medical Code(s): K56.41 - Fecal impaction (3) Poor fluid intake: Status: Acute Category: Medical Code(s): R63.8 - Other symptoms and signs concerning food and fluid intake (4) care home current use of anticoagulant therapy: Status: Acute Category: Medical Code(s): Z79.01 - care home (current) use of anticoagulants (5) Below-knee amputation of left lower extremity: Status: Acute Qualifiers: Encounter type: initial encounter Qualified Code(s): S88.112A - Complete traumatic amputation at level between knee and ankle, left lower leg, initial encounter Category: Medical Code(s): S88.112A - Complete traumatic amputation at level between knee and ankle, left lower leg, initial encounter (6) Type 2 diabetes mellitus: Status: Acute Qualifiers: Diabetes mellitus complication status: with hyperglycemia Diabetes mellitus usp insulin use: without usp use Qualified Code(s): E11.65 - Type 2 diabetes mellitus with hyperglycemia Category: Medical Code(s): E11.9 - Type 2 diabetes mellitus without complications (7) Paroxysmal atrial fibrillation: Status: Acute Category: Medical Code(s): I48.0 - Paroxysmal atrial fibrillation (8) Hyperlipemia: Status: Acute Qualifiers: Hyperlipidemia type: mixed hyperlipidemia Qualified Code(s): E78.2 - Mixed hyperlipidemia Category: Medical Code(s): E78.5 - Hyperlipidemia, unspecified (9) HTN (hypertension): Status: Acute Qualifiers: Hypertension type: essential hypertension Qualified Code(s): I10 - Essential (primary) hypertension Category: Medical Code(s): I10 - Essential (primary) hypertension (10) Stephens catheter in place on admission: Status: Acute Category: Medical Code(s): Z97.8 - Presence of other specified devices (11) Urinary retention: Status: Acute Category: Medical Code(s): R33.9 - Retention of urine, unspecified (12) Pressure ulcer of coccygeal region: Status: Acute Qualifiers: Pressure injury stage: unstageable Qualified Code(s): L89.150 - Pressure ulcer of sacral region, unstageable Category: Medical Code(s): L89.159 - Pressure ulcer of sacral region, unspecified stage (13) Dementia: Status: Acute Qualifiers: Dementia behavioral or psychological symptom: without behavioral, psychotic, or mood disturbance or anxiety Dementia severity: unspecified severity Dementia type: unspecified type Qualified Code(s): F03.90 - Unspecified dementia, unspecified severity, without behavioral disturbance, psychotic disturbance, mood disturbance, and anxiety Category: Medical Code(s): F03.90 - Unspecified dementia, unspecified severity, without behavioral disturbance, psychotic disturbance, mood disturbance, and anxiety (14) Rectal pain: Status: Acute Category: Medical Code(s): K62.89 - Other specified diseases of anus and rectum (15) Severe protein-calorie malnutrition: Status: Acute Category: Medical Code(s): E43 - Unspecified severe protein-calorie malnutrition Plan Change Stephens catheter. Proctosol and Tucks for rectal pain. Other pain management as well. IV fluids. Dr. Montanez entry - Saw patient, agree with above note.
[2025-09-17] MEDS: DIGOXIN 0.125MG TABLET 125 MCG PO (08:42)
[2025-09-17] MEDS: HYDROCODONE/APAP 5/325 MG TABLET 1 TAB PO ×2 (08:52→13:39)
[2025-09-17] MEDS: HYDROCORTISONE 2.5% CREAM 28GM TUBE TP ×4 (09:12→20:34)
[2025-09-17] MEDS: WITCH HAZEL 40 PADS/BOX 1 EACH TP ×4 (09:12→20:34)
[2025-09-17 09:46] LABS: Thyroid Stimulating Hormone 2.07 uIU/mL (0.465-4.68)
[2025-09-17 11:34] LABS: Microscopic, Urine URINE MICROSCOPIC (MICROSCOPIC)
[2025-09-17 11:38] LABS: POC Glucose,Bedside 92 gm/dL (70-110)
--- NOTE | 2025-09-17 11:54 | HMH.PTEV ---
Physical Therapy Evaluation Rehab PT IP Evaluation Start: 09/17/25 01:55 Freq: ONCE Status: Active Protocol: Document 09/17/25 09:30 GINI (Rec: 09/17/25 11:54 PHORHANS [id number]) Subjective/History History History Patient is an 85-year-old female past history significant for dementia, 2 diabetes mellitus, HTN, HLD , CAD, PAF on chronic anticoagulation with Eliquis, chronic CHF, BKA, Stephens catheter present. Patient presents to [facility] due to constipation with poor oral intake. Granddaughter at bedside providing history due to patient's underlying dementia. She reports patient lives at home and is assisted by herself and her mother. Noted patient to have dementia but significantly exacerbated after undergoing BKA. Patient developed wound pressure ulcer to her coccyx in which x-ray was ordered for evaluation. Incidental finding of soft ball sized stool burden. Granddaughter noted after this finding they tried multiple enema, Colace without any success. She also noted a decrease in oral intake since BKA procedure. CT obtained within our ED revealing a large amount of stool in the rectum with perirectal inflammation changes. ED provider spoke to our on-call surgical team due to findings prior to treatment. It was noted surgery agreed with admission and initial treatment with enema in hopes to relieve fecal impaction. Granddaughter noted the large stool burden was removed after enema. Patient transferred to [facility] for further evaluation and treatment. Granddaughter denies any known fevers, chills, nausea, vomiting, abdominal pain. Subjective Subjective Pt lives with daughter, family provides 24/7 care at baseline for all ADLs. Pt is generally able to transfer sup/sit independently, but requires assist of 2 caregivers to transfer to chair at baseline. [facility] How much help from another person do you currently need... Turning from your A little back to your side while in a flat bed without using bedrails? Moving from lying on A lot back to sitting on the side of a flat bed without using bedrails? Moving to and from a A lot bed to a chair ( including a wheelchair)? Standing up from a A lot chair using your arms? (e.g., wheelchair, bedside chair) Walking in hospital Total room? Climbing 3-5 steps Total with a railing? Mobility Score 11 Mobility Level Ann Marshall Mobility 4 Move to chair/commode Mobility Calculator Rehab PT IP Eval Objective Appearance Patient Behavior Appropriate Patient Orientation Person,Place,Time Difficulty following none instructions Speech Pattern Clear Ambulation Patient Able to No Ambulate Balance Ability to Arise Unable Sitting Balance Leans or slides in chair Standing Balance Unsteady Dynamic Sitting Fair Balance Ability Dynamic Standing Poor Balance Ability Transfers Bed Transfer Ability Maximum x 1 (75% assist) Sit to Stand Bed Maximum x 2 (75% assist) Transfer Ability Rehab PT IP prob,goals,plan Problems Date of Evaluation: 09/17/25 PT IP Problems Bed Mobility,Transfers Rehab Potential Rehab Potential Fair Plan PT Intervention Plan Bed Mobility,Transfers,Balance,Self care,Therapeutic Exercise PT Plan Frequency Daily Duration LOS Discharge Goals Bed Transfer Ability Moderate x 1 (50% assist) Sit to Stand Chair Maximum x 1 (75% assist) Transfer Ability Discharge Plan PT Discharge Plan Pt is currently most appropriate for rehab placement once medically stable for d/c, however she could return home if she continues to have 09/05 caregiver availability. Skilled therapy is indicated to increase general strength and improve transfers in order to return pt to [facility] and improve QOL. Eval Complexity Eval Charge Codes 44709 - High Complexity PHYSICIAN CERTIFICATION: I certify the specified therapy services for Hattie Ruizrow are required, authorized, and reviewed every 30 days.
--- NOTE | 2025-09-17 11:57 | HMH.PTWOUND ---
Rehab Wound Evaluation Rehab IP Wound Evaluation Start: 09/17/25 02:54 Freq: ONCE Status: Active Protocol: Document 09/17/25 09:35 GINI (Rec: 09/17/25 11:57 PHORHANS [id number]) Rehab PT Wound Assessment Subjective Subjective 85-year-old female past history significant for dementia, 2 diabetes mellitus, HTN, HLD, CAD, PAF on chronic anticoagulation with Eliquis, chronic CHF, BKA , Stephens catheter present. Patient presents to [facility] due to constipation with poor oral intake. Granddaughter at bedside providing history due to patient's underlying dementia. She reports patient lives at home and is assisted by herself and her mother. Noted patient to have dementia but significantly exacerbated after undergoing BKA. Patient developed wound pressure ulcer to her coccyx in which x-ray was ordered for evaluation. Incidental finding of soft ball sized stool burden. Granddaughter noted after this finding they tried multiple enema, Colace without any success. She also noted a decrease in oral intake since BKA procedure. CT obtained within our ED revealing a large amount of stool in the rectum with perirectal inflammation changes. ED provider spoke to our on-call surgical team due to findings prior to treatment. It was noted surgery agreed with admission and initial treatment with enema in hopes to relieve fecal impaction. Granddaughter noted the large stool burden was removed after enema. Patient transferred to [facility] for further evaluation and treatment. Granddaughter denies any known fevers, chills, nausea, vomiting, abdominal pain. Pt presents with sacral pressure injury upon admission. Wound Sacrum Wound Type Pressure Ulcer Is This a Chronic Yes Wound Wound Staging Stage II Query Text:Stage I - Unbroken, red skin, no blanching. Stage II - Skin broken, superficial skin loss involving epidermis alone or also dermis. Partial loss of skin layers. Stage III - Pressure area involves epidermis, dermis and subcutaneous tissue, full thickness skin loss. Stage IV - Pressure area involves epidermis, subcutaneous tissue, bone and other supportive tissue. Full thickness skin loss with extensive destruction of underlying tissue and structures. Wound Length (cm) 1.5 Wound Width (cm) 0.8 Wound Depth (cm) 0.2 Wound Bed Appearance Yellow Wound Margins Well Defined Description Wound Drainage Serosanguineous Description Drainage Amount Small Primary Dressing Composite Plan/Recommendation Comment No current need for acute PT wound care needs, Continue dressing changes and pressure relief as necessary. Eval Complexity Eval Charge Codes 22175 - Moderate Complexity PHYSICIAN CERTIFICATION: I certify the specified therapy services for Hattie Bridgette Sera are required, authorized, and reviewed every 30 days.
[2025-09-17 12:02] LABS: Color,Urine YELLOW (Yellow); Glucose,Urine (UA) Negative (Negative); Ketones,Urine 1+ (Negative); Leukocyte Esterase,Urine TRACE (Negative); PH,Urine 5.0 (5.0-8.5); Protein,Urine 2+ (Negative); Specific Gravity, Urine >= 1.030 (1.005-1.030); Urobilinogen,Urine 0.2 EU/dl (0.2)
[2025-09-17 12:05] LABS: Bilirubin,Urine 2+ (Negative)
[2025-09-17 12:18] LABS: Calcium Oxalate Crystals,Urine 1+ /lpf
[2025-09-17] MEDS: ACETAMINOPHEN 325MG TAB 650 MG PO (16:47)
[2025-09-17 16:52] LABS: POC Glucose,Bedside 93 gm/dL (70-110)
--- NOTE | 2025-09-17 16:56 | PC.NURSE ---
pt resting on her left side in bed at this time with family at bedside. new dressing applied to sacral area. pt has complained of pain in the rectal area this shift and has been treated with oral medication per mar, as well as tucks pads and cream. pepe cath replaced this shift as well and urine sample sent to lab. no needs at this time. call light within reach.
[2025-09-17] MEDS: TAMSULOSIN 0.4MG CAPSULE 0.4 MG PO (20:34)
[2025-09-17] MEDS: PRAVASTATIN 40MG TAB 40 MG PO (20:34)
[2025-09-17 20:57] LABS: POC Glucose,Bedside 101 gm/dL (70-110)
[2025-09-18] VITALS: BP 117/55; PULSE 76; RESP 16; TEMP 36.8; O2SAT 98
[2025-09-18 04:00] VITALS: BP 126/63; PULSE 72; RESP 16; TEMP 36.8; O2SAT 99; BMI 18.8
--- NOTE | 2025-09-18 04:15 | PC.NURSE ---
Patient is pleasantly alert to herself and place; she exhibits forgetfulness, particularly short-term. Significant past medical history documentation noted. She has expressed occasional anxiety about having bowel movements and tearful wishes to just go home. Reassurance has been provided by nursing staff and family members. Patient has not had any other complaints, such as abdominal pain, nausea/vomiting, etc. this shift. She was observed to be resting in bed with eyes closed, respirations even and unlabored on room air, and no apparent distress throughout the majority of the night. A family member has remained at the bedside for comfort. Patient had a continent bowel movement via brief earlier this shift (refused to use a bedside commode); stool appearance was pasty in consistency, dark green in color, and strong in odor. Was educated about avoidance of straining while bearing down. Perineum care performed; ointment and witch dionna Tux were then applied. Mild soreness in rectal area reported by patient. Self-turns in bed, utilizes side rails, encouraging frequent repositioning while awake. Skin issues documented accordingly. Dressing between right toes (3rd/4th amputated) and on sacrum remain intact. Left below-knee amputee. Physical assessment was performed (see nursing shift biophysical intervention) as appropriately for this shift. Scheduled medications administered per DEC. Normal saline is infusing at 75 mL/hr. Full liquid diet. Tomato soup was provided; patient encouraged to consume more food items to improve nutritional needs. Stephens catheter remains intact; urine output documented accordingly. Denies abdominal tenderness, abdomen soft upon palpation. ACHS glucose checks performed. At this time, the patient is resting in bed without any further complaints. No acute changes noted thus far. Call light within reach.
[2025-09-18 06:22] LABS: Hematocrit 29.6 % (37.0-47.0); Hemoglobin 8.7 g/dL (12.2-16.2); Immature Granulocytes % 0.3 %; Mean Corpuscular HGB Conc 29.4 g/dL (31.8-35.4); Mean Corpuscular Hemoglobin 26.1 pg (27.0-31.2); Mean Corpuscular Volume 88.9 fl (81-99); Nucleated Red Blood Cells % 0 %; Platelet Count 362 K/mm3 (142-424); Red Blood Count 3.33 M/mm3 (4.20-5.40); Red Cell Distribution Width-SD 48.1 fL; White Blood Count 9.2 K/mm3 (4.8-10.8)
[2025-09-18 06:31] LABS: POC Glucose,Bedside 84 gm/dL (70-110)
[2025-09-18 06:47] LABS: Chloride 107 mmol/L (98-107)
[2025-09-18 06:48] LABS: Potassium 3.6 mmoL/L (3.5-5.1); Sodium 137 mmol/L (136-145)
[2025-09-18 06:51] LABS: Anion Gap 10.6 mEq/L (5-15); Blood Urea Nitrogen 6 mg/dl (7-17); Calcium 7.9 mg/dl (8.4-10.2); Carbon Dioxide 23 mmol/L (22.0-30.0); Creatinine Clearance Estimated 28 mL/min (50-200); Creatinine,Serum 0.50 mg/dl (0.52-1.04); Estimated Glomerular Filt Rate 118 ml/min (>60); GFR (African American) 142 ML/MIN (>60); Glucose 77 mg/dl (74-100)
[2025-09-18 08:00] VITALS: BP 122/55; PULSE 88; RESP 14; TEMP 36.8; O2SAT 98
--- NOTE | 2025-09-18 08:24 | EXP.ACUTE.PN ---
Subjective *Date: 09/18/25 *Time: 08:32 Interval history: Patient did have a few BM's during the night. She denies any abdominal pain and has been able to eat this am. Medical Exam Vital signs and Labs for Last 24 Hours: Vital Signs Temp Pulse Pulse Pulse Resp BP Pulse Ox 09/18/25 06:40 09/18/25 05:00 09/18/25 04:00 98.2 F 72 16 126/63 99 09/18/25 03:00 09/18/25 01:00 09/18/25 00:00 98.3 F 76 16 117/55 L 98 09/17/25 23:00 09/17/25 21:00 09/17/25 20:00 09/17/25 20:00 98.2 F 77 16 156/65 H 98 09/17/25 18:50 09/17/25 17:00 09/17/25 16:00 98.1 F 90 17 162/73 H 96 09/17/25 15:00 09/17/25 13:00 09/17/25 12:00 98.1 F 90 18 159/71 H 96 09/17/25 11:00 09/17/25 09:00 09/17/25 08:42 82 O2 Del Method 09/18/25 06:40 Room Air 09/18/25 05:00 Room Air 09/18/25 04:00 Room Air 09/18/25 03:00 Room Air 09/18/25 01:00 Room Air 09/18/25 00:00 Room Air 09/17/25 23:00 Room Air 09/17/25 21:00 Room Air 09/17/25 20:00 Room Air 09/17/25 20:00 Room Air 09/17/25 18:50 Room Air 09/17/25 17:00 Room Air 09/17/25 16:00 Room Air 09/17/25 15:00 Room Air 09/17/25 13:00 Room Air 09/17/25 12:00 Room Air 09/17/25 11:00 Room Air 09/17/25 09:00 Room Air 09/17/25 08:42 Intake and Output 09/17/25 09/18/25 09/18/25 19:59 03:59 11:59 Intake Total 1300 / 1480 180 / 1480 Output Total 175 / 175 Balance 1300 / 1305 5 / 1305 Intake: Intake, Oral Amount 300 / 480 180 / 480 Intake, Total IV Amount 1000 / 1000 0.9 % Sodium Chloride 1000ML 1, 1000 / 1000 000 ml @ 75 mls/hr IV .[id number] [facility] Rx#:[id number] Output: Output, Urine Amount 175 / 175 Other: Number of Bowel Movements 1 1 1 Weight 93 lb 3.2 oz Patient Weight 09/18/25 11:59 Weight 93 lb 3.2 oz Laboratory Results - last 24 hr 09/17/25 05:55: TSH 2.07 09/17/25 11:24: POC Glucose 92 09/17/25 11:25: Urine Color Yellow, Urine Appearance Cloudy, Urine pH 5.0, Ur Specific [place] >= 1.030, Urine Protein 2+ A, Urine Glucose (UA) Negative, Urine Ketones 1+, Urine Blood 3+ A, Urine Nitrate Negative, Urine Bilirubin 2+ A, Urine Urobilinogen 0.2, Ur Leukocyte Esterase Trace, Urine RBC 5-10, Urine WBC 5-10, Ur Squamous Epith Cells None, Calcium Oxalate Crystal 1+, Urine Bacteria None 09/17/25 16:40: POC Glucose 93 09/17/25 20:42: POC Glucose 101 09/18/25 06:12: WBC 9.2, RBC 3.33 L, Hgb 8.7 L, Hct 29.6 L, MCV 88.9, MCH 26.1 L, MCHC 29.4 L, RDW 14.7, Plt Count 362, MPV 8.9, Neut % (Auto) 51.3, Lymph % (Auto) 32.3, [place] % (Auto) 8.8, Eos % (Auto) 6.8, Baso % (Auto) 0.5, Neut # (Auto) 4.7, Lymph # (Auto) 3.0, [place] # (Auto) 0.8, Eos # (Auto) 0.6 H, Baso # (Auto) 0.1, Sodium 137, Potassium 3.6, Chloride 107, Carbon Dioxide 23, Anion Gap 10.6, BUN 6 L D, Creatinine 0.50 L, Estimated Creat Clear 28, Estimated GFR 118, Est GFR ( Amer) 142, Glucose 77, Calcium 7.9 L 12/03/25 06:22: POC Glucose 84 I & O for Labs for Last 24 Hours: Intake & Output 09/15/25 09/16/25 09/17/25 09/18/25 11:59 11:59 11:59 11:59 Intake Total 0 / 0 1480 / 1480 Output Total 550 / 550 175 / 175 Balance -550 / -550 1305 / 1305 Weight 93 lb 14.4 oz 93 lb 3.2 oz Constitutional: Present no acute distress Respiratory: Present decreased breath sounds and CTA bilaterally Cardiac: Present Reg Rate and Rhythm GI: Present soft; Absent tenderness Extremities: Absent tenderness or edema Skin: Present intact and erythema (around amputation site) Neuro: Present alert and awake Assessment and Plan *Assessment and plan (1) Stercoral colitis: Status: Acute Category: Medical Code(s): K52.89 - Other specified noninfective gastroenteritis and colitis (2) Fecal impaction: Status: Acute Category: Medical Code(s): K56.41 - Fecal impaction (3) Poor fluid intake: Status: Acute Category: Medical Code(s): R63.8 - Other symptoms and signs concerning food and fluid intake (4) shelter current use of anticoagulant therapy: Status: Acute Category: Medical Code(s): 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 (5) Below-knee amputation of left lower extremity: Status: Acute Qualifiers: Encounter type: initial encounter Qualified Code(s): S88.112A - Complete traumatic amputation at level between knee and ankle, left lower leg, initial encounter Category: Medical Code(s): S88.112A - Complete traumatic amputation at level between knee and ankle, left lower leg, initial encounter (6) Type 2 diabetes mellitus: Status: Acute Qualifiers: Diabetes mellitus complication status: with hyperglycemia Diabetes mellitus termination clerk insulin use: without termination clerk use Qualified Code(s): E11.65 - Type 2 diabetes mellitus with hyperglycemia Category: Medical Code(s): E11.9 - Type 2 diabetes mellitus without complications (7) Paroxysmal atrial fibrillation: Status: Acute Category: Medical Code(s): I48.0 - Paroxysmal atrial fibrillation (8) Hyperlipemia: Status: Acute Qualifiers: Hyperlipidemia type: mixed hyperlipidemia Qualified Code(s): E78.2 - Mixed hyperlipidemia Category: Medical Code(s): E78.5 - Hyperlipidemia, unspecified (9) HTN (hypertension): Status: Acute Qualifiers: Hypertension type: essential hypertension Qualified Code(s): I10 - Essential (primary) hypertension Category: Medical Code(s): I10 - Essential (primary) hypertension (10) Stephens catheter in place on admission: Status: Acute Category: Medical Code(s): Z97.8 - Presence of other specified devices (11) Urinary retention: Status: Acute Category: Medical Code(s): R33.9 - Retention of urine, unspecified (12) Pressure ulcer of coccygeal region: Status: Acute Qualifiers: Pressure injury stage: unstageable Qualified Code(s): L89.150 - Pressure ulcer of sacral region, unstageable Category: Medical Code(s): L89.159 - Pressure ulcer of sacral region, unspecified stage (13) Dementia: Status: Acute Qualifiers: Dementia behavioral or psychological symptom: without behavioral, psychotic, or mood disturbance or anxiety Dementia severity: unspecified severity Dementia type: unspecified type Qualified Code(s): F03.90 - Unspecified dementia, unspecified severity, without behavioral disturbance, psychotic disturbance, mood disturbance, and anxiety Category: Medical Code(s): F03.90 - Unspecified dementia, unspecified severity, without behavioral disturbance, psychotic disturbance, mood disturbance, and anxiety (14) Rectal pain: Status: Acute Category: Medical Code(s): K62.89 - Other specified diseases of anus and rectum (15) Severe protein-calorie malnutrition: Status: Acute Category: Medical Code(s): E43 - Unspecified severe protein-calorie malnutrition (16) Anemia: Status: Acute Category: Medical Code(s): D64.9 - Anemia, unspecified Plan H&H is down to 8.7. Patient did have BM's. Can likely discharge home today and continue home health. Will need to monitor H&H. Dr. Montanez entry - Saw patient, agree with above note. OK for discharge today, resume home health. Stephens catheter was changed during this admission. Patient to continue Miralax and Senokot and resume oral iron replacement.
--- NOTE | 2025-09-18 08:33 | SW/DCPLANNER ---
Phoned [facility] where patient is with and to let them know that while she was in our care that she had her Stephens Cath changed today. [facility] stated that she is under their care till September. Moe Rodriguez
[2025-09-18] MEDS: SENNOSIDES 8.6MG/DOCUSATE 50MG TABLET 1 TAB PO (09:04)
[2025-09-18 09:05] VITALS: PULSE 88
[2025-09-18] MEDS: DIGOXIN 0.125MG TABLET 125 MCG PO (09:05)
[2025-09-18] MEDS: APIXABAN 5MG TABLET 2.5 MG PO (09:07)
[2025-09-18] MEDS: CLOPIDOGREL 75MG TAB 75 MG PO (09:07)
[2025-09-18] MEDS: POLYETHYLENE GLYCOL 3350 17 GM PACKET PO (09:08)
[2025-09-18] MEDS: HYDROCORTISONE 2.5% CREAM 28GM TUBE TP (09:08)
[2025-09-18] MEDS: MEMANTINE 10MG TABLET 5 MG PO (09:08)
[2025-09-18] MEDS: GABAPENTIN 300MG CAPSULE 300 MG PO (09:11)
--- NOTE | 2025-09-19 09:59 | SW/DCPLANNER ---
Spoke with patient's daughter on the phone. Patient's daughter stated that she is doing well just sleeping alot. Patient's daughter stated that they forgot the discharge packet and that her niece was able to pick it up. Patient's daughter stated that they are aware of patient's upcoming appointment. Patient's daughter stated that she will be going today to [place] cone picker her mom's medicine from the pharmacy. Patient's daughter stated that she has no concerns or questions at this time. Moe Rodriguez
--- NOTE | 2025-09-23 13:38 | EXP.DC.SUM ---
General Admission date:: 09/17/25 Discharge date: 09/18/25 HPI HPI HPI: Patient is an 85-year-old female past history significant for dementia, 2 diabetes mellitus, HTN, HLD, CAD, PAF on chronic anticoagulation with Eliquis, chronic CHF, BKA, Stephens catheter present. Patient presents to [facility] due to constipation with poor oral intake. Granddaughter at bedside providing history due to patient's underlying dementia. She reports patient lives at home and is assisted by herself and her mother. Noted patient to have dementia but significantly exacerbated after undergoing BKA. Patient developed wound pressure ulcer to her coccyx in which x-ray was ordered for evaluation. Incidental finding of soft ball sized stool burden. Granddaughter noted after this finding they tried multiple enema, Colace without any success. She also noted a decrease in oral intake since BKA procedure. CT obtained within our ED revealing a large amount of stool in the rectum with perirectal inflammation changes. ED provider spoke to our on-call surgical team due to findings prior to treatment. It was noted surgery agreed with admission and initial treatment with enema in hopes to relieve fecal impaction. Granddaughter noted the large stool burden was removed after enema. Patient transferred to [facility] for further evaluation and treatment. Granddaughter denies any known fevers, chills, nausea, vomiting, abdominal pain. Initial ED workup included laboratory studies and imaging as noted above. Significant laboratory findings noted WBC 11.8, sodium 134, glucose 108, albumin 3.4. Imaging study CT abdomen pelvis obtained in which I reviewed revealing large amount of stool in the rectum, fecal impaction and perirectal inflammatory changes. Suspected stercoral colitis. Upon assessment of patient at bedside she is without acute distress, hemodynamically stable. Hospital Course Hospital Course Hospital Course: Patient had impaction removed in the emergency room. Imaging revealed evidence of large fecal burden. She was started on a bowel regime and gentle IV hydration due to her chronic HFrEF. Patient had an indwelling Stephens catheter which was changed. Patient experienced rectal discomfort. She showed some anxiety. Hemoglobin was 9 hematocrit was 29.7. Renal function was normal. Patient continued to have stools. She denied any abdominal pain on 09/18/2025 and was able to eat some. Vital signs were stable. On this date she was discharged to home and was to resume home health. Patient was to continue with MiraLAX and Senokot and resume her oral iron replacement for her anemia. Exam Data for Last 24 hours Vital signs and Labs for Last 24 Hours: Temp Pulse Resp BP Pulse Ox O2 Del Method 98.3 F 88 14 122/55 L 98 Room Air 09/18/25 08:00 09/18/25 09:05 09/18/25 08:00 09/18/25 08:00 09/18/25 08:00 09/18/25 09:00 Radiology Reports for the Last 24 Hours: 09/18/2025 CT of Abd/pelvis IMPRESSION: 1. Large amount of stool in the rectum. Consider fecal impaction. 2. Perirectal inflammatory changes. Consider stercoral colitis. Narrative: 09/18/2025 PE at [facility] Constitutional: Present no acute distress Respiratory: Present decreased breath sounds and CTA bilaterally Cardiac: Present Reg Rate and Rhythm GI: Present soft; Absent tenderness Extremities: Absent tenderness or edema Skin: Present intact and erythema (around amputation site) Neuro: Present alert and awake DS: Diagnosis Discharge Diagnosis (1) Stercoral colitis: Status: Acute Code(s): K52.89 - Other specified noninfective gastroenteritis and colitis (2) Fecal impaction: Status: Acute Code(s): K56.41 - Fecal impaction (3) Poor fluid intake: Status: Acute Code(s): R63.8 - Other symptoms and signs concerning food and fluid intake (4) senior living current use of anticoagulant therapy: Status: Acute Code(s): Z79.01 - senior living (current) use of anticoagulants (5) Below-knee amputation of left lower extremity: Status: Acute Code(s): S88.112A - Complete traumatic amputation at level between knee and ankle, left lower leg, initial encounter Qualifiers: Encounter type: initial encounter Qualified Code(s): S88.112A - Complete traumatic amputation at level between knee and ankle, left lower leg, initial encounter (6) Type 2 diabetes mellitus: Status: Acute Code(s): E11.9 - Type 2 diabetes mellitus without complications Qualifiers: Diabetes mellitus shelter insulin use: without shelter use Diabetes mellitus complication status: with hyperglycemia Qualified Code(s): E11.65 - Type 2 diabetes mellitus with hyperglycemia (7) Paroxysmal atrial fibrillation: Status: Acute Code(s): I48.0 - Paroxysmal atrial fibrillation (8) Hyperlipemia: Status: Acute Code(s): E78.5 - Hyperlipidemia, unspecified Qualifiers: Hyperlipidemia type: mixed hyperlipidemia Qualified Code(s): E78.2 - Mixed hyperlipidemia (9) HTN (hypertension): Status: Acute Code(s): I10 - Essential (primary) hypertension Qualifiers: Hypertension type: essential hypertension Qualified Code(s): I10 - Essential (primary) hypertension (10) Stephens catheter in place on admission: Status: Acute Code(s): Z97.8 - Presence of other specified devices (11) Urinary retention: Status: Acute Code(s): R33.9 - Retention of urine, unspecified (12) Pressure ulcer of coccygeal region: Status: Acute Code(s): L89.159 - Pressure ulcer of sacral region, unspecified stage Qualifiers: Pressure injury stage: unstageable Qualified Code(s): L89.150 - Pressure ulcer of sacral region, unstageable (13) Dementia: Status: Acute Code(s): F03.90 - Unspecified dementia, unspecified severity, without behavioral disturbance, psychotic disturbance, mood disturbance, and anxiety Qualifiers: Dementia type: unspecified type Dementia severity: unspecified severity Dementia behavioral or psychological symptom: without behavioral, psychotic, or mood disturbance or anxiety Qualified Code(s): F03.90 - Unspecified dementia, unspecified severity, without behavioral disturbance, psychotic disturbance, mood disturbance, and anxiety (14) Rectal pain: Status: Acute Code(s): K62.89 - Other specified diseases of anus and rectum (15) Severe protein-calorie malnutrition: Status: Acute Code(s): E43 - Unspecified severe protein-calorie malnutrition (16) Anemia: Status: Acute Code(s): D64.9 - Anemia, unspecified Meds Home Medications and Allergies Home Medications ?Medication ?Instructions ?Recorded ?Confirmed ?Type pravastatin 40 mg tablet 40 mg PO HS 03/31/18 09/17/25 History budesonide-formoterol HFA 160 2 puffs inhalation BID 08/16/19 09/17/25 History mcg-4.5 mcg/actuation aerosol inhaler (Symbicort) apixaban 2.5 mg tablet (Eliquis) 2.5 mg PO BID 11/02/24 09/17/25 History clopidogrel 75 mg tablet 75 mg PO DAILY 01/31/25 09/17/25 History digoxin 125 mcg (0.125 mg) tablet 125 mcg PO DAILY #90 tabs 04/30/25 09/17/25 Rx gabapentin 300 mg capsule 300 mg PO BID 07/02/25 09/17/25 History hydrocodone 5 mg-acetaminophen 325 1 tab PO QID PRN Pain (Scale Score 09/17/25 09/17/25 History mg tablet 4-6) memantine 5 mg tablet 5 mg PO DAILY 09/17/25 09/17/25 History quetiapine 25 mg tablet 12.5 mg PO HS PRN Sleep 09/17/25 09/17/25 History tamsulosin 0.4 mg capsule 0.4 mg PO HS 09/17/25 09/17/25 History ferrous sulfate 325 mg (65 mg 325 mg PO BID #60 tabs 09/18/25 Rx iron) tablet polyethylene glycol 3350 17 gram 17 g PO DAILY #30 ea 09/18/25 Rx oral powder packet (HealthyLax) sennosides 8.6 mg-docusate sodium 1 tab PO DAILY #30 tabs 09/18/25 Rx 50 mg tablet (Stimulant Laxative Plus) New Prescriptions to Start Prescriptions: ferrous sulfate Alexis Montanez polyethylene glycol 3350 [HealthyLax] Alexis Montanez sennosides-docusate sodium [Stimulant Laxative Plus] Alexis Montanez Allergies Allergy/AdvReac Type Severity Reaction Status Date / Time codeine (CODEINE) Allergy Unknown Unknown Verified 07/15/25 09:03 allergy reaction morphine Allergy Unknown Unknown Verified 07/15/25 09:03 allergy reaction alprazolam (From Xanax) Allergy Unknown Verified 09/17/25 01:39 allergy reaction Sulfa (Sulfonamide Allergy Unknown Verified 09/17/25 01:39 Antibiotics) allergy reaction fentanyl AdvReac Mild behavior Verified 07/15/25 09:03 changes diphenhydramine (From AdvReac Agitated Verified 07/15/25 09:03 Benadryl) doxycycline AdvReac Nausea Verified 07/15/25 09:03 Discharge Plan Disposition Patient Disposition: Home Health Service Condition: Fair Discharge Order Discharge Orders: Discharge Order (Routine); Ordered 09/18/25 Ordered By: Alexis Montanez Follow up Plan Follow up with: Alexis Montanez MD [Primary Care Provider, Medical] - 10/02/25 10:30 am Prescriptions/Medication Reconciliation: New polyethylene glycol 3350 [HealthyLax] 17 gram Powder In Packet 17 g PO DAILY Qty: 30 2RF sennosides-docusate sodium [Stimulant Laxative Plus] 8.6-50 mg Tablet 1 tab PO DAILY Qty: 30 2RF ferrous sulfate 325 mg (65 mg iron) tablet 325 mg PO BID Qty: 60 2RF Continued gabapentin 300 mg capsule 300 mg PO BID Rx Instructions: 300 mg in the morning 600mg at night digoxin 125 mcg (0.125 mg) tablet 125 mcg PO DAILY Qty: 90 1RF pravastatin 40 MG tablet 40 mg PO HS budesonide-formoterol [Symbicort] 10.2 GM HFA aerosol inhaler 2 puffs inhalation BID Eliquis 2.5 mg tablet 2.5 mg PO BID Patient Comments: TAKE 1 TABLET BY MOUTH TWICE DAILY FOR BLOOD THINNER clopidogrel 75 mg tablet 75 mg PO DAILY quetiapine 25 mg tablet 12.5 mg PO HS PRN (Reason: Sleep) hydrocodone-acetaminophen 5-325 mg tablet 1 tab PO QID PRN (Reason: Pain (Scale Score 4-6)) tamsulosin 0.4 mg capsule 0.4 mg PO HS memantine 5 mg tablet 5 mg PO DAILY Problem Reconciliation Problems Reviewed?: Yes Patient Discharge Instructions ACTIVITY: Limited activity DIET: advance to your usual diet Patient Instructions: Anemia, DI for Fecal Impaction Print Language: Khmer Providers Primary Care Provider: Alexis Montanez Admit Provider: Feliberto Osborne Attending Provider: Alexis Montanez
== END 2025-09-18 09:56 | disposition home health service (06) ==
LOC: ER 21:11 → 2ND 09-17 00:34
PROVIDERS: Nurse Practitioner Acute Care; Nurse Practitioner Family; Student in an Organized Health Care Education/Training Program; Admitting Provider Internal Medicine Adolescent Medicine; Emergency Provider Student in an Organized Health Care Education/Training Program; PCP Family Medicine; Visit Provider Family Medicine
DX: K52.89 Other specified noninfective gastroenteritis and colitis (principal); K56.41 Fecal impaction; R63.8 Other symptoms and signs concerning food and fluid intake; Z79.01 Long term (current) use of anticoagulants; S88.112A Complete traumatic amputation at level between knee and ankle, left lower leg, initial encounter; E11.65 Type 2 diabetes mellitus with hyperglycemia; I48.0 Paroxysmal atrial fibrillation; E78.2 Mixed hyperlipidemia; Z97.8 Presence of other specified devices; R33.9 Retention of urine, unspecified; L89.150 Pressure ulcer of sacral region, unstageable; F03.90 Unspecified dementia, unspecified severity, without behavioral disturbance, psychotic disturbance, mood disturbance, and anxiety; K62.89 Other specified diseases of anus and rectum; E43 Unspecified severe protein-calorie malnutrition; D64.9 Anemia, unspecified; Z68.1 Body mass index [BMI] 19.9 or less, adult; J45.909 Unspecified asthma, uncomplicated; I25.10 Atherosclerotic heart disease of native coronary artery without angina pectoris; I11.0 Hypertensive heart disease with heart failure; I50.20 Unspecified systolic (congestive) heart failure; E78.5 Hyperlipidemia, unspecified; E11.51 Type 2 diabetes mellitus with diabetic peripheral angiopathy without gangrene; Z95.0 Presence of cardiac pacemaker; Z89.421 Acquired absence of other right toe(s); Z98.51 Tubal ligation status; Z82.49 Family history of ischemic heart disease and other diseases of the circulatory system; Z83.3 Family history of diabetes mellitus; Z88.5 Allergy status to narcotic agent; Z88.2 Allergy status to sulfonamides; Z88.8 Allergy status to other drugs, medicaments and biological substances; Z88.1 Allergy status to other antibiotic agents; Z79.899 Other long term (current) drug therapy; E11.622 Type 2 diabetes mellitus with other skin ulcer; Z89.512 Acquired absence of left leg below knee; M19.071 Primary osteoarthritis, right ankle and foot; M19.072 Primary osteoarthritis, left ankle and foot
CPT/HCPCS: 36415; 51702; 74177; 80048; 80053; 80162; 81001; 82962; 83605; 83690; 84443; 85025; 85610; 97163; 97165; 97530; 99285; G0378; J1171; J7030; Q9967